=== PATIENT | male | born 1945 | race Caucasian/White ===

== ENCOUNTER 2018-03-22 14:41 | Inpatient (IN) | payer MEDICARE ==
[~2018-03-22] VITALS: Ht 177.8 cm; Wt 137.0 kg
[~2018-03-22 14:41] MED LIST: ALLO100T PO; AMLO10TA2 PO; ASPI325T8 PO; ATOR40TA59 PO; CEFD300C PO; CLON0.3T PO; FURO40TA4 PO; HYDR100T24 PO; INSU100I11 SQ; INSU100V8 SQ; LABE200T4 PO; LOSA1TAB22 PO; OMEG1CAP6 PO; POTA20TA82 PO; PROP225C3 PO; SPIR50TA4 PO
--- NOTE | 2018-03-22 15:42 | RAD ---
FOOT BILAT 3V, TIBIA FIBULA BILAT History: NATALIO FOOT SWELLING, NON HEALING BLISTERS TO NATALIO CALCANEUS. PT IS DIABETIC. Comparison: None are available Bilateral two-view tibia fibula Diffuse soft tissue calcifications bilaterally. No acute fracture. No aggressive bone destruction. IMPRESSION: 1. Extensive bilateral diffuse soft tissue calcifications are nonspecific. Considerations include metabolic, autoimmune or inflammatory etiology. 2. No acute bone abnormality 3 view portable bilateral foot Bilateral degenerative changes. No evidence of acute fracture. Bilateral calcaneal enthesophytes. Vascular calcifications are noted. IMPRESSION: Chronic findings, no acute appearing changes. Electronically signed by: Benjamin Back MD (03/22/2018 3:39 PM) [id number]
--- NOTE | 2018-03-22 15:49 | PHYS DOC ---
Past Medical History Past Medical History: CAD, Diabetes-Type II, High Cholesterol, Hypertension Past Surgical History: No Surgical History Alcohol Use: None Drug Use: None Adult General Chief Complaint Chief Complaint: LOWER EXTREMITY SWELLING HPI HPI Patient is a 72 year old male who presents with bilateral redness and weeping to his lower legs as well as some ulcerations on his heels and feet. The patient states that he saw his enterprise resource planning consultant to send him to the emergency department to be admitted for IV antibiotic therapy. The patient is diabetic and has peripheral vascular disease. He does have neuropathy and states that he is currently in no pain with the ulcerations unless he stands on his feet. He denies fever, nausea or vomiting. Review of Systems Review of Systems Constitutional: Denies fever or chills [] Respiratory: Denies cough or shortness of breath [] Cardiovascular: No additional information not addressed in HPI [] GI: Denies abdominal pain, nausea, vomiting, bloody stools or diarrhea [] : Denies dysuria or hematuria [] Musculoskeletal: Denies back pain or joint pain [] Integument: See history of present illness Neurologic: Denies headache, focal weakness or sensory changes [] Endocrine: Denies polyuria or polydipsia [] All other systems were reviewed and found to be within normal limits, except as documented in this note. Current Medications Current Medications Current Medications Medications (Trade) Dose Ordered Sig/Redd Start Time Stop Time Status Last Admin Dose Admin Acetaminophen (Tylenol) 650 mg PRN Q6HRS PRN 03/22/18 16:15 Al Hydroxide/Mg Hydroxide (Mylanta Plus Xs) 30 ml PRN Q3HRS PRN 03/22/18 16:15 Allopurinol (Zyloprim) 100 mg DAILY 03/23/18 09:00 UNV Amlodipine Besylate (Norvasc) 10 mg DAILY 03/23/18 09:00 UNV Atorvastatin Calcium (Lipitor) 40 mg HS 03/22/18 21:00 Bisacodyl (Dulcolax Supp) 10 mg PRN DAILY PRN 03/22/18 16:15 Calcium Carbonate/ Glycine (Tums) 500 mg PRN Q3HRS PRN 03/22/18 16:15 Ceftriaxone Sodium 50 ml @ 100 mls/hr 1X ONCE 03/22/18 16:30 03/22/18 16:59 Clonidine HCl (Catapres) 0.1 mg TID 8/17/18 16:45 Dextrose (Dextrose 50%-Water Syringe) 12.5 gm PRN Q15MIN PRN 03/22/18 16:15 Docusate Sodium (Colace) 100 mg BID 03/22/18 21:00 Fish Oil (Fish Oil) 1,000 mg BID 03/22/18 21:00 Furosemide (Lasix) 40 mg 1X ONCE 03/22/18 16:15 03/22/18 16:32 DC Insulin Human Lispro (HumaLOG) 25 units TID 03/22/18 21:00 UNV Magnesium Hydroxide (Milk Of Magnesia) 2,400 mg PRN Q12HR PRN 03/22/18 16:15 Morphine Sulfate (Morphine Sulfate) 2 mg PRN Q2HR PRN 03/22/18 16:15 Non-Formulary Medication (Hydralazine Hcl ) 100 mg TID 03/22/18 21:00 UNV Non-Formulary Medication (Insulin Glargine,Hum.rec.anlog (Lantus)) 44 unit HS 03/22/18 21:00 UNV Non-Formulary Medication (Losartan/ Hydrochlorothiazide (Losartan-Hctz 100-25 Mg Tab)) 1 each DAILY 03/23/18 09:00 UNV Ondansetron HCl (Zofran) 4 mg PRN Q6HRS PRN 03/22/18 16:15 Oxycodone HCl (Roxicodone) 5 mg PRN Q3HRS PRN 03/22/18 16:15 Piperacillin Sod/ Tazobactam Sod (Zosyn Per Pharmacy) 1 each PRN DAILY PRN 03/22/18 16:15 UNV Piperacillin Sod/ Tazobactam Sod 3.375 gm/Sodium Chloride 50 ml @ 100 mls/hr 1X ONCE 03/22/18 16:45 03/22/18 17:14 Potassium Chloride (Klor-Con) 20 meq [id number] 03/23/18 08:00 Prochlorperazine Edisylate (Compazine) 10 mg PRN Q6HRS PRN 03/22/18 16:15 Sodium Chloride 1,000 ml @ 1,000 mls/hr 1X ONCE 03/22/18 16:30 03/22/18 17:29 Vancomycin HCl (Vanco Per Pharmacy) 1 each PRN DAILY PRN 03/22/18 16:15 UNV Vancomycin HCl 2 gm/Sodium Chloride 500 ml @ 250 mls/hr 1X ONCE 03/22/18 17:00 03/22/18 18:59 Allergies Allergies Allergies Coded Allergies Type Severity Reaction Last Updated Verified I S O L A T I O N *CONTACT* Allergy Unknown 02/12/15 Yes No Known Medication Allergies Allergy Unknown 02/12/15 Yes Physical Exam Physical Exam Constitutional: Well developed, well nourished, no acute distress, non-toxic appearance. [] Cardiovascular:Heart rate regular rhythm, no murmur [] Lungs & Thorax: Bilateral breath sounds clear to auscultation [] Skin: Bilateral erythema with weeping to his lower legs, ulcerations noted to bilateral heels Back: No tenderness, no CVA tenderness. [] Extremities: No tenderness, no cyanosis, no clubbing, ROM intact, no edema. [] Neurologic: Alert and oriented X 3, normal motor function, normal sensory function, no focal deficits noted. [] Psychologic: Affect normal, judgement normal, mood normal. [] Current Patient Data Vital Signs Vital Signs Date Time Temp Pulse Resp B/P (MAP) Pulse Ox O2 Delivery O2 Flow Rate FiO2 03/22/18 14:50 98.2 113 18 144/71 (95) 97 Room Air 98.2 Lab Values Laboratory Tests Test 03/22/18 15:56 White Blood Count 10.4 x10^3/uL (4.0-11.0) Red Blood Count 3.69 x10^6/uL (4.30-5.70) L Hemoglobin 12.0 g/dL (13.0-17.5) L Hematocrit 34.9 % (39.0-53.0) L Mean Corpuscular Volume 94 fL (79-100) Mean Corpuscular Hemoglobin 32 pg (25-35) Mean Corpuscular Hemoglobin Concent 34 g/dL (31-37) Red Cell Distribution Width 15.7 % (11.5-14.5) H Platelet Count 259 x10^3/uL (140-400) Neutrophils (%) (Auto) 67 % (31-73) Lymphocytes (%) (Auto) 21 % (24-48) L Monocytes (%) (Auto) 10 % (0-9) H Eosinophils (%) (Auto) 1 % (0-3) Basophils (%) (Auto) 1 % (0-3) Neutrophils # (Auto) 7.0 x10^3uL (1.8-7.7) Lymphocytes # (Auto) 2.2 x10^3/uL (1.0-4.8) Monocytes # (Auto) 1.1 x10^3/uL (0.0-1.1) Eosinophils # (Auto) 0.1 x10^3/uL (0.0-0.7) Basophils # (Auto) 0.1 x10^3/uL (0.0-0.2) Sodium Level 129 mmol/L (136-145) L Potassium Level 4.0 mmol/L (3.5-5.1) Chloride Level 97 mmol/L (98-107) L Carbon Dioxide Level 26 mmol/L (21-32) Anion Gap 6 (6-14) Blood Urea Nitrogen 35 mg/dL (8-26) H Creatinine 2.0 mg/dL (0.7-1.3) H Estimated GFR (Cockcroft-Gault) 33.2 BUN/Creatinine Ratio 18 (6-20) Glucose Level 344 mg/dL (70-99) H Calcium Level 8.5 mg/dL (8.5-10.1) Total Bilirubin 1.1 mg/dL (0.2-1.0) H Aspartate Amino Transferase (AST) 30 U/L (15-37) Alanine Aminotransferase (ALT) 19 U/L (16-63) Alkaline Phosphatase 126 U/L (46-116) H C-Reactive Protein, Quantitative 62.6 mg/L (0-3.3) H Total Protein 6.6 g/dL (6.4-8.2) Albumin 2.0 g/dL (3.4-5.0) L Albumin/Globulin Ratio 0.4 (1.0-1.7) L Laboratory Tests 03/22/18 15:56 Laboratory Tests 03/22/18 15:56 EKG EKG [] Radiology/Procedures Radiology/Procedures [] Signed PATIENT: SAMEER HOLDEN ACCOUNT: [id number] : 1945 LOCATION: ER AGE: 72 SEX: M EXAM STATUS: PRE ER ORD. PHYSICIAN: CLEVE RAY APRN REASON: r/o osteomyelitis PROCEDURE: TIBIA FIBULA BILAT FOOT BILAT 3V, TIBIA FIBULA BILAT History: NATALIO FOOT SWELLING, NON HEALING BLISTERS TO NATALIO CALCANEUS. PT IS DIABETIC. Comparison: None are available Bilateral two-view tibia fibula Diffuse soft tissue calcifications bilaterally. No acute fracture. No aggressive bone destruction. IMPRESSION: 1. Extensive bilateral diffuse soft tissue calcifications are nonspecific. Considerations include metabolic, autoimmune or inflammatory etiology. 2. No acute bone abnormality 3 view portable bilateral foot Bilateral degenerative changes. No evidence of acute fracture. Bilateral calcaneal enthesophytes. Vascular calcifications are noted. IMPRESSION: Chronic findings, no acute appearing changes. Electronically signed by: Benjamin Back MD (03/22/2018 3:39 PM) [facility] DICTATED and SIGNED BY: BENJAMIN BACK MD DATE: 03/22/18 153 Course & Med Decision Making Course & Med Decision Making Pertinent Labs and Imaging studies reviewed. (See chart for details) []The patient is being admitted to the hospital for IV antibiotic therapy. He has been accepted to Dr. Wise's service. He is in agreement with this plan. Dragon Disclaimer Dragon Disclaimer This electronic medical record was generated, in whole or in part, using a voice recognition dictation system. Departure Departure Impression: Primary Impression: Abscess or cellulitis of ankle Additional Impressions: Diabetes PVD (peripheral vascular disease) Disposition: ADMITTED INPATIENT Admitting Physician: Mariah Wise Condition: STABLE Problem Qualifiers CLEVE RAY APRN Mar 22, 2018 15:49
--- NOTE | 2018-03-22 16:11 | PDOC1 ---
History and Physical Date of Admission Date of Admission DATE: 03/22/18 TIME: 16:04 Identification/Chief Complaint Chief Complaint sent in by wound care clinic because of diabetes with leg wounds in a PVD patient Source Source: Caregiver, Chart review, Patient History of Present Illness History of Present Illness He has no complaints, he was sent in by wound care clinic because of bilateral lower extremity wound/in a diabetic and a PVD pt. He is a diabetes with elevated A1c, at 12- 14 range. HE knows the target a1c is 6-7. He is accompanied by his . I inspected the wounds, there is significant redness on bilateral lower legs, with oozing and some weeping, HE also has bilateral heel ulcers, the left one actually looks good but the right one has some granulation tissue and maybe some old eschar formation. In the past he has received I and D of the wounds. I am getting a sedimentation rate, labs, ID on board including vascular surgery and the need of I and D?. He is a vasculopath or at least has history of PVD by chart. Blood sugars are running high. We will resume home meds, address the blood sugar, had ID and vascular see and go from there. Agrees my plan of care, seen at ER Past Medical History Cardiovascular: AFIB, CHF, HTN, Hyperlipidemia, Other Psych: Anxiety Renal/: Other Endocrine: Diabetes Past Surgical History Past Surgical History: Other (I and D of leg wounds) Family History Family History: Heart Disease, Hypertension Social History Smoke: No ALCOHOL: none Drugs: None Current Medications Current Medications Active Scripts Active Reported Hydralazine Hcl 100 Mg Tablet 100 Mg PO TID Potassium Chloride 20 Meq Tablet.er 20 Meq PO DAILY Lantus (Insulin Glargine,Hum.rec.anlog) 100 Unit/1 Ml Vial 44 Unit SQ HS Atorvastatin Calcium 40 Mg Tablet 40 Mg PO HS Losartan-Hctz 100-25 Mg Tab (Losartan/Hydrochlorothiazide) 1 Each Tablet 1 Each PO DAILY Allopurinol 100 Mg Tablet 100 Mg PO DAILY Amlodipine Besylate 10 Mg Tablet 10 Mg PO DAILY Clonidine Hcl 0.3 Mg Tablet 0.1 Mg PO TID Furosemide 40 Mg Tablet 80 Mg PO BID Fish Oil 1,000 Mg Capsule (Spooner-3 Fatty Acids/Fish Oil) 1 Each Capsule 1 Each PO BID Humalog (Insulin Lispro) 100 Unit/1 Ml Insuln.pen 25 Unit SQ TID Allergies Allergies: Coded Allergies: I S O L A T I O N *CONTACT* (Verified Allergy, Unknown, 02/12/15) MRSA + No Known Medication Allergies (Verified Allergy, Unknown, 02/12/15) ROS Review of System A 14 point ROS was completed with the following noted as positive: Other systems reviewed and negative. \CONSTITUTIONAL: No fever or chills EYES: No recent changes SKIN: No rash or itching CARDIOVASCULAR: No chest pain, syncope, palpitations, or edema RESPIRATORY: No SOB or cough GASTROINTESTINAL: No nausea, vomiting or abdominal pain NEUROLOGICAL: No headaches or weakness ENDOCRINE: No cold or heat intolerance GENITOURINARY: No urgency or frequency of urination MUSCULOSKELETAL: No back pain or joint pain LYMPHATICS: No enlarged lymph nodes PSYCHIATRIC: No anxiety or depression Physical Exam General: Alert, Oriented X3, Cooperative, No acute distress HEENT: Atraumatic, PERRLA, EOMI Lungs: Clear to auscultation, Normal air movement Heart: S1S2, RRR, no thrills, no rubs, no gallops Cardiovascular: S1, S2 Abdomen: Normal bowel sounds, Soft, No tenderness, No hepatosplenomegaly, No masses Male Genitals Exam: normal genitalia, normal prostate Rectal Exam: not examined PELVIC: Nml ext genitalia Extremities: Other (has bilateral lymphedema, wounds appear red, redness on the bilateral shins with some oozing and weeping. Bilateral heel wounds, left looks great but the right has some granulation tissue with eschar formation on the heel) Neuro: Normal gait, Normal speech, Strength at 5/5 X4 ext, Normal tone, Sensation intact, Cranial nerves 3-12 NL, Reflexes 2+ Psych/Mental Status: Mental status NL, Mood NL Vitals Vitals Vital Signs Date Time Temp Pulse Resp B/P (MAP) Pulse Ox O2 Delivery O2 Flow Rate FiO2 03/22/18 14:50 98.2 113 18 144/71 (95) 97 Room Air 98.2 VTE Prophylaxis Ordered VTE Prophylaxis Devices: Yes VTE Pharmacological Prophylaxi: Yes Assessment/Plan Assessment/Plan DM wounds, Diabetic heel ulcer, left heel wound looks good but the right is more worrisome DM uncontrolled with neuropathy - with hemoglobin A1c 12-14 range PVD Obesity BMI 42 Hypertension, CAD, and lipidemia all chronic stable Plan Admit 2 MN ID consult, vasc consult Check a sedimentation rate in hemoglobin A1c I have reconciled home meds I opted to do Lasix 40 IV twice a day-he takes Lasix 80 mg by mouth daily Wound care PT OT OD for lymphedema ADA diet IV antibiotics - was getting amox then shifted to tetracycline by PCP or wound care MD further conditions pending above course CORINNE LAW MD Mar 22, 2018 16:11
[2018-03-22 16:15] LABS: CALCIUM 8.5 mg/dL (8.5-10.1); GFR 33.2
[2018-03-22] MEDS ORDERED: PIP/TAZO PER PHARMACY MC PRN (16:15)
[2018-03-22] MEDS ORDERED: MORPHINE SULFATE 2 MG/ML VIAL. IV PRN (16:15)
[2018-03-22] MEDS ORDERED: FUROSEMIDE 40 MG/4 ML VIAL. IVP ONE (16:15)
[2018-03-22] MEDS ORDERED: CALCIUM CARBONATE 500 MG TAB.CHEW PO PRN (16:15)
[2018-03-22] MEDS ORDERED: oxyCODONE IR 5 MG TABLET PO PRN (16:15)
[2018-03-22] MEDS ORDERED: PROCHLORPERAZINE 10 MG/2 ML VIAL. IV PRN (16:15)
[2018-03-22] MEDS ORDERED: VANCOMYCIN PER PHARMACY MC PRN (16:15)
[2018-03-22] MEDS ORDERED: MAG HYDROX/ALUMINUM HYD/SIMETH 30 ML ORAL.SUSP PO PRN (16:15)
[2018-03-22] MEDS ORDERED: ONDANSETRON PF 4 MG/2 ML VIAL. IV PRN (16:15)
[2018-03-22] MEDS ORDERED: MAGNESIUM HYDROXIDE 2,400 MG/30 ML ORAL.SUSP. PO PRN (16:15)
[2018-03-22] MEDS ORDERED: ACETAMINOPHEN 325 MG TABLET. PO PRN (16:15)
[2018-03-22] MEDS ORDERED: BISACODYL 10 MG SUPP.RECT. PR PRN (16:15)
[2018-03-22 16:19] LABS: BASO # 0.1 x10^3/uL (0.0-0.2); BASO % 1 % (0-3); EOS # 0.1 x10^3/uL (0.0-0.7); EOS % 1 % (0-3); HEMATOCRIT 34.9 % (39.0-53.0); LYMPH # 2.2 x10^3/uL (1.0-4.8); LYMPH % 21 % (24-48); MEAN CORPUSCULAR HEMOGLOBIN 32 pg (25-35); MEAN CORPUSCULAR HGB CONC 34 g/dL (31-37); MEAN CORPUSCULAR VOLUME 94 fL (79-100); MONO # 1.1 x10^3/uL (0.0-1.1); MONO % 10 % (0-9); NEUT % 67 % (31-73); PLATELET COUNT 259 x10^3/uL (140-400); RED BLOOD COUNT 3.69 x10^6/uL (4.30-5.70); RED CELL DISTRIBUTION WIDTH 15.7 % (11.5-14.5); WHITE BLOOD COUNT 10.4 x10^3/uL (4.0-11.0)
[2018-03-22 16:21] LABS: ALBUMIN/GLOBULIN RATIO 0.4 (1.0-1.7); C-REACTIVE PROTEIN 62.6 mg/L (0-3.3); TOTAL BILIRUBIN 1.1 mg/dL (0.2-1.0); TOTAL PROTEIN 6.6 g/dL (6.4-8.2)
[2018-03-22] MEDS ORDERED: IV NORMAL SALINE 1000ML BAG 1,000 ML IV ONE (16:30)
[2018-03-22] MEDS: cloNIDine HCL 0.1 MG TABLET PO SCH ×2 (16:45→22:13)
[2018-03-22] MEDS ORDERED: PIPERACILLIN/TAZOBACTAM 3.375 GM in IV NORMAL SALINE 50ML 50 ML IV ONE (16:45)
[2018-03-22] MEDS ORDERED: VANCOMYCIN 2 GM in IV NORMAL SALINE 500ML BAG 500 ML IV ONE (17:00)
[2018-03-22 20:45] VITALS: BP 128/72
[2018-03-22] MEDS ORDERED: AMOX500C PO (22:11)
[2018-03-22] MEDS ORDERED: OMEG1CAP6 PO (22:11)
[2018-03-22] MEDS ORDERED: DOXY100T PO (22:11)
[2018-03-22] MEDS ORDERED: METO2.5T PO (22:11)
[2018-03-22] MEDS ORDERED: TENO25TA PO (22:11)
[2018-03-22] MEDS: DOCUSATE SODIUM 100 MG CAPSULE. PO SCH (22:13)
[2018-03-22] MEDS: OMEGA-3 FATTY ACIDS/FISH OIL 1,000 MG CAPSULE. PO SCH (22:13)
[2018-03-22] MEDS: ATORVASTATIN CALCIUM 40 MG TABLET. PO SCH (22:15)
[2018-03-22] MEDS: INSULIN LISPRO 300 UNITS/3 ML INSULN.PEN. SQ SCH ×2 (22:40→22:41)
[2018-03-22] MEDS: INSULIN GLARGINE 300 UNITS/3 ML INSULN.PEN. SQ SCH (22:42)
[2018-03-22 23:18] VITALS: BP 107/61
[2018-03-23] MEDS: PIPERACILLIN/TAZOBACTAM 3.375 GM in IV NORMAL SALINE 50ML 50 ML IV SCH ×5 (01:02→23:16)
[2018-03-23] MEDS: DEXTROSE 50% 25 GM / 50ML DISP.SYRIN. IV PRN ×2 (01:08→02:48)
[2018-03-23 03:27] VITALS: BP 101/52
[2018-03-23 07:00] VITALS: BP 137/68
[2018-03-23 07:59] LABS: BASO # 0.1 x10^3/uL (0.0-0.2); BASO % 1 % (0-3); EOS # 0.2 x10^3/uL (0.0-0.7); EOS % 1 % (0-3); HEMATOCRIT 30.8 % (39.0-53.0); HEMOGLOBIN 10.4 g/dL (13.0-17.5); LYMPH # 2.4 x10^3/uL (1.0-4.8); LYMPH % 20 % (24-48); MEAN CORPUSCULAR HEMOGLOBIN 32 pg (25-35); MEAN CORPUSCULAR HGB CONC 34 g/dL (31-37); MEAN CORPUSCULAR VOLUME 94 fL (79-100); MONO # 1.2 x10^3/uL (0.0-1.1); MONO % 10 % (0-9); NEUT # 8.2 x10^3uL (1.8-7.7); NEUT % 68 % (31-73); PLATELET COUNT 256 x10^3/uL (140-400); RED BLOOD COUNT 3.27 x10^6/uL (4.30-5.70); RED CELL DISTRIBUTION WIDTH 15.6 % (11.5-14.5)
[2018-03-23] MEDS: INSULIN LISPRO 300 UNITS/3 ML INSULN.PEN. SQ SCH ×6 (08:00→17:00)
[2018-03-23 08:07] LABS: ALBUMIN 1.8 g/dL (3.4-5.0); ALBUMIN/GLOBULIN RATIO 0.4 (1.0-1.7); CALCIUM 8.3 mg/dL (8.5-10.1); GFR 33.2; POTASSIUM 3.3 mmol/L (3.5-5.1); TOTAL BILIRUBIN 0.7 mg/dL (0.2-1.0)
[2018-03-23] MEDS: cloNIDine HCL 0.1 MG TABLET PO SCH ×3 (09:00→21:00)
[2018-03-23] MEDS: POTASSIUM CHLORIDE 20 MEQ TABLET.ER. PO SCH (10:22)
[2018-03-23] MEDS: amLODIPine BESYLATE 10 MG TABLET PO SCH (10:23)
[2018-03-23] MEDS: LOSARTAN POTASSIUM 50 MG TABLET. PO SCH (10:23)
[2018-03-23] MEDS: OMEGA-3 FATTY ACIDS/FISH OIL 1,000 MG CAPSULE. PO SCH ×2 (10:23→21:18)
[2018-03-23] MEDS: hydroCHLOROthiazide 25 MG TABLET PO SCH (10:24)
[2018-03-23] MEDS: FUROSEMIDE 40 MG/4 ML VIAL. IVP SCH (10:24)
[2018-03-23] MEDS: ALLOPURINOL 100 MG TABLET. PO SCH (10:24)
[2018-03-23 11:00] VITALS: BP 116/67
--- NOTE | 2018-03-23 11:21 | PDOC ---
Provider Note Provider Note VASCULAR CONSULT Dictated morbid obesity uncontrolled diabetes peripheral neuropathy bilateral pressure wounds ,plantar surface heels REC: arterial duplex off wt DVT prophylaxis operative debridement left heel MOHAMUD NIEVES MD Mar 23, 2018 11:21
--- NOTE | 2018-03-23 12:22 | PDOC ---
PROGRESS NOTES Chief Complaint Chief Complaint Medical Problems: -Cellulitis & Ulceration of Feet -DM -PVD History of Present Illness History of Present Illness -Pt. seen & examined -NAD -Pt. heals & ankles display ulceration, edema, & erythema -Pt. laying in bed upon out visit -DW pt. our current plan of action Vitals Vitals Vital Signs Date Time Temp Pulse Resp B/P (MAP) Pulse Ox O2 Delivery O2 Flow Rate FiO2 03/23/18 11:00 98.2 101 16 116/67 (83) 96 Room Air 98.2 Physical Exam General: Alert, Oriented X3, Cooperative, No acute distress Heart: Regular rate, Normal S1, Normal S2 Lungs: Clear, Other Abdomen: Normal bowel sounds, Soft, No tenderness, No hepatosplenomegaly, No masses Extremities: No clubbing, Other (has bilateral lymphedema, wounds appear red, redness on the bilateral shins with some oozing and weeping. Bilateral heel wounds, left looks great but the right has some granulation tissue with eschar formation on the heel) Skin: No rashes, Other Labs LABS Laboratory Tests Test 03/22/18 15:56 03/22/18 21:07 03/23/18 00:52 03/23/18 01:04 White Blood Count 10.4 x10^3/uL (4.0-11.0) Red Blood Count 3.69 x10^6/uL (4.30-5.70) Hemoglobin 12.0 g/dL (13.0-17.5) Hematocrit 34.9 % (39.0-53.0) Mean Corpuscular Volume 94 fL (79-100) Mean Corpuscular Hemoglobin 32 pg (25-35) Mean Corpuscular Hemoglobin Concent 34 g/dL (31-37) Red Cell Distribution Width 15.7 % (11.5-14.5) Platelet Count 259 x10^3/uL (140-400) Neutrophils (%) (Auto) 67 % (31-73) Lymphocytes (%) (Auto) 21 % (24-48) Monocytes (%) (Auto) 10 % (0-9) Eosinophils (%) (Auto) 1 % (0-3) Basophils (%) (Auto) 1 % (0-3) Neutrophils # (Auto) 7.0 x10^3uL (1.8-7.7) Lymphocytes # (Auto) 2.2 x10^3/uL (1.0-4.8) Monocytes # (Auto) 1.1 x10^3/uL (0.0-1.1) Eosinophils # (Auto) 0.1 x10^3/uL (0.0-0.7) Basophils # (Auto) 0.1 x10^3/uL (0.0-0.2) Erythrocyte Sedimentation Rate 77 (0-15) Sodium Level 129 mmol/L (136-145) Potassium Level 4.0 mmol/L (3.5-5.1) Chloride Level 97 mmol/L (98-107) Carbon Dioxide Level 26 mmol/L (21-32) Anion Gap 6 (6-14) Blood Urea Nitrogen 35 mg/dL (8-26) Creatinine 2.0 mg/dL (0.7-1.3) Estimated GFR (Cockcroft-Gault) 33.2 BUN/Creatinine Ratio 18 (6-20) Glucose Level 344 mg/dL (70-99) Calcium Level 8.5 mg/dL (8.5-10.1) Total Bilirubin 1.1 mg/dL (0.2-1.0) Aspartate Amino Transf (AST/SGOT) 30 U/L (15-37) Alanine Aminotransferase (ALT/SGPT) 19 U/L (16-63) Alkaline Phosphatase 126 U/L (46-116) C-Reactive Protein, Quantitative 62.6 mg/L (0-3.3) Total Protein 6.6 g/dL (6.4-8.2) Albumin 2.0 g/dL (3.4-5.0) Albumin/Globulin Ratio 0.4 (1.0-1.7) Glucose (Fingerstick) 295 mg/dL (70-99) 46 mg/dL (70-99) 58 mg/dL (70-99) Test 03/23/18 01:23 03/23/18 02:31 03/23/18 03:09 03/23/18 07:20 Glucose (Fingerstick) 102 mg/dL (70-99) 53 mg/dL (70-99) 109 mg/dL (70-99) White Blood Count 12.0 x10^3/uL (4.0-11.0) Red Blood Count 3.27 x10^6/uL (4.30-5.70) Hemoglobin 10.4 g/dL (13.0-17.5) Hematocrit 30.8 % (39.0-53.0) Mean Corpuscular Volume 94 fL (79-100) Mean Corpuscular Hemoglobin 32 pg (25-35) Mean Corpuscular Hemoglobin Concent 34 g/dL (31-37) Red Cell Distribution Width 15.6 % (11.5-14.5) Platelet Count 256 x10^3/uL (140-400) Neutrophils (%) (Auto) 68 % (31-73) Lymphocytes (%) (Auto) 20 % (24-48) Monocytes (%) (Auto) 10 % (0-9) Eosinophils (%) (Auto) 1 % (0-3) Basophils (%) (Auto) 1 % (0-3) Neutrophils # (Auto) 8.2 x10^3uL (1.8-7.7) Lymphocytes # (Auto) 2.4 x10^3/uL (1.0-4.8) Monocytes # (Auto) 1.2 x10^3/uL (0.0-1.1) Eosinophils # (Auto) 0.2 x10^3/uL (0.0-0.7) Basophils # (Auto) 0.1 x10^3/uL (0.0-0.2) Sodium Level 135 mmol/L (136-145) Potassium Level 3.3 mmol/L (3.5-5.1) Chloride Level 101 mmol/L (98-107) Carbon Dioxide Level 29 mmol/L (21-32) Anion Gap 5 (6-14) Blood Urea Nitrogen 36 mg/dL (8-26) Creatinine 2.0 mg/dL (0.7-1.3) Estimated GFR (Cockcroft-Gault) 33.2 BUN/Creatinine Ratio 18 (6-20) Glucose Level 63 mg/dL (70-99) Calcium Level 8.3 mg/dL (8.5-10.1) Total Bilirubin 0.7 mg/dL (0.2-1.0) Aspartate Amino Transf (AST/SGOT) 29 U/L (15-37) Alanine Aminotransferase (ALT/SGPT) 18 U/L (16-63) Alkaline Phosphatase 114 U/L (46-116) Total Protein 6.0 g/dL (6.4-8.2) Albumin 1.8 g/dL (3.4-5.0) Albumin/Globulin Ratio 0.4 (1.0-1.7) Test 03/23/18 08:11 03/23/18 11:34 Glucose (Fingerstick) 79 mg/dL (70-99) 122 mg/dL (70-99) Review of Systems Review of Systems -No dyspnea -No dysuria Assessment and Plan Assessmemt and Plan Medical Problems: -Cellulitis & Ulceration of Feet -DM -PVD Plan: -ABX. - pip/tazo -Wound Care -SNU Evaluation -Labs -PT/OT -Appreciate surgical input Comment Review of Relevant I have reviewed the following items mara (where applicable) has been applied. Labs Laboratory Tests Test 03/22/18 15:56 03/22/18 21:07 03/23/18 00:52 03/23/18 01:04 White Blood Count 10.4 x10^3/uL (4.0-11.0) Red Blood Count 3.69 x10^6/uL (4.30-5.70) Hemoglobin 12.0 g/dL (13.0-17.5) Hematocrit 34.9 % (39.0-53.0) Mean Corpuscular Volume 94 fL (79-100) Mean Corpuscular Hemoglobin 32 pg (25-35) Mean Corpuscular Hemoglobin Concent 34 g/dL (31-37) Red Cell Distribution Width 15.7 % (11.5-14.5) Platelet Count 259 x10^3/uL (140-400) Neutrophils (%) (Auto) 67 % (31-73) Lymphocytes (%) (Auto) 21 % (24-48) Monocytes (%) (Auto) 10 % (0-9) Eosinophils (%) (Auto) 1 % (0-3) Basophils (%) (Auto) 1 % (0-3) Neutrophils # (Auto) 7.0 x10^3uL (1.8-7.7) Lymphocytes # (Auto) 2.2 x10^3/uL (1.0-4.8) Monocytes # (Auto) 1.1 x10^3/uL (0.0-1.1) Eosinophils # (Auto) 0.1 x10^3/uL (0.0-0.7) Basophils # (Auto) 0.1 x10^3/uL (0.0-0.2) Erythrocyte Sedimentation Rate 77 (0-15) Sodium Level 129 mmol/L (136-145) Potassium Level 4.0 mmol/L (3.5-5.1) Chloride Level 97 mmol/L (98-107) Carbon Dioxide Level 26 mmol/L (21-32) Anion Gap 6 (6-14) Blood Urea Nitrogen 35 mg/dL (8-26) Creatinine 2.0 mg/dL (0.7-1.3) Estimated GFR (Cockcroft-Gault) 33.2 BUN/Creatinine Ratio 18 (6-20) Glucose Level 344 mg/dL (70-99) Calcium Level 8.5 mg/dL (8.5-10.1) Total Bilirubin 1.1 mg/dL (0.2-1.0) Aspartate Amino Transf (AST/SGOT) 30 U/L (15-37) Alanine Aminotransferase (ALT/SGPT) 19 U/L (16-63) Alkaline Phosphatase 126 U/L (46-116) C-Reactive Protein, Quantitative 62.6 mg/L (0-3.3) Total Protein 6.6 g/dL (6.4-8.2) Albumin 2.0 g/dL (3.4-5.0) Albumin/Globulin Ratio 0.4 (1.0-1.7) Glucose (Fingerstick) 295 mg/dL (70-99) 46 mg/dL (70-99) 58 mg/dL (70-99) Test 03/23/18 01:23 03/23/18 02:31 03/23/18 03:09 03/23/18 07:20 Glucose (Fingerstick) 102 mg/dL (70-99) 53 mg/dL (70-99) 109 mg/dL (70-99) White Blood Count 12.0 x10^3/uL (4.0-11.0) Red Blood Count 3.27 x10^6/uL (4.30-5.70) Hemoglobin 10.4 g/dL (13.0-17.5) Hematocrit 30.8 % (39.0-53.0) Mean Corpuscular Volume 94 fL (79-100) Mean Corpuscular Hemoglobin 32 pg (25-35) Mean Corpuscular Hemoglobin Concent 34 g/dL (31-37) Red Cell Distribution Width 15.6 % (11.5-14.5) Platelet Count 256 x10^3/uL (140-400) Neutrophils (%) (Auto) 68 % (31-73) Lymphocytes (%) (Auto) 20 % (24-48) Monocytes (%) (Auto) 10 % (0-9) Eosinophils (%) (Auto) 1 % (0-3) Basophils (%) (Auto) 1 % (0-3) Neutrophils # (Auto) 8.2 x10^3uL (1.8-7.7) Lymphocytes # (Auto) 2.4 x10^3/uL (1.0-4.8) Monocytes # (Auto) 1.2 x10^3/uL (0.0-1.1) Eosinophils # (Auto) 0.2 x10^3/uL (0.0-0.7) Basophils # (Auto) 0.1 x10^3/uL (0.0-0.2) Sodium Level 135 mmol/L (136-145) Potassium Level 3.3 mmol/L (3.5-5.1) Chloride Level 101 mmol/L (98-107) Carbon Dioxide Level 29 mmol/L (21-32) Anion Gap 5 (6-14) Blood Urea Nitrogen 36 mg/dL (8-26) Creatinine 2.0 mg/dL (0.7-1.3) Estimated GFR (Cockcroft-Gault) 33.2 BUN/Creatinine Ratio 18 (6-20) Glucose Level 63 mg/dL (70-99) Calcium Level 8.3 mg/dL (8.5-10.1) Total Bilirubin 0.7 mg/dL (0.2-1.0) Aspartate Amino Transf (AST/SGOT) 29 U/L (15-37) Alanine Aminotransferase (ALT/SGPT) 18 U/L (16-63) Alkaline Phosphatase 114 U/L (46-116) Total Protein 6.0 g/dL (6.4-8.2) Albumin 1.8 g/dL (3.4-5.0) Albumin/Globulin Ratio 0.4 (1.0-1.7) Test 8/18/18 08:11 03/23/18 11:34 Glucose (Fingerstick) 79 mg/dL (70-99) 122 mg/dL (70-99) Laboratory Tests Test 03/22/18 15:56 03/22/18 21:07 03/23/18 00:52 03/23/18 01:04 White Blood Count 10.4 x10^3/uL (4.0-11.0) Red Blood Count 3.69 x10^6/uL (4.30-5.70) Hemoglobin 12.0 g/dL (13.0-17.5) Hematocrit 34.9 % (39.0-53.0) Mean Corpuscular Volume 94 fL (79-100) Mean Corpuscular Hemoglobin 32 pg (25-35) Mean Corpuscular Hemoglobin Concent 34 g/dL (31-37) Red Cell Distribution Width 15.7 % (11.5-14.5) Platelet Count 259 x10^3/uL (140-400) Neutrophils (%) (Auto) 67 % (31-73) Lymphocytes (%) (Auto) 21 % (24-48) Monocytes (%) (Auto) 10 % (0-9) Eosinophils (%) (Auto) 1 % (0-3) Basophils (%) (Auto) 1 % (0-3) Neutrophils # (Auto) 7.0 x10^3uL (1.8-7.7) Lymphocytes # (Auto) 2.2 x10^3/uL (1.0-4.8) Monocytes # (Auto) 1.1 x10^3/uL (0.0-1.1) Eosinophils # (Auto) 0.1 x10^3/uL (0.0-0.7) Basophils # (Auto) 0.1 x10^3/uL (0.0-0.2) Erythrocyte Sedimentation Rate 77 (0-15) Sodium Level 129 mmol/L (136-145) Potassium Level 4.0 mmol/L (3.5-5.1) Chloride Level 97 mmol/L (98-107) Carbon Dioxide Level 26 mmol/L (21-32) Anion Gap 6 (6-14) Blood Urea Nitrogen 35 mg/dL (8-26) Creatinine 2.0 mg/dL (0.7-1.3) Estimated GFR (Cockcroft-Gault) 33.2 BUN/Creatinine Ratio 18 (6-20) Glucose Level 344 mg/dL (70-99) Calcium Level 8.5 mg/dL (8.5-10.1) Total Bilirubin 1.1 mg/dL (0.2-1.0) Aspartate Amino Transf (AST/SGOT) 30 U/L (15-37) Alanine Aminotransferase (ALT/SGPT) 19 U/L (16-63) Alkaline Phosphatase 126 U/L (46-116) C-Reactive Protein, Quantitative 62.6 mg/L (0-3.3) Total Protein 6.6 g/dL (6.4-8.2) Albumin 2.0 g/dL (3.4-5.0) Albumin/Globulin Ratio 0.4 (1.0-1.7) Glucose (Fingerstick) 295 mg/dL (70-99) 46 mg/dL (70-99) 58 mg/dL (70-99) Test 03/23/18 01:23 03/23/18 02:31 03/23/18 03:09 03/23/18 07:20 Glucose (Fingerstick) 102 mg/dL (70-99) 53 mg/dL (70-99) 109 mg/dL (70-99) White Blood Count 12.0 x10^3/uL (4.0-11.0) Red Blood Count 3.27 x10^6/uL (4.30-5.70) Hemoglobin 10.4 g/dL (13.0-17.5) Hematocrit 30.8 % (39.0-53.0) Mean Corpuscular Volume 94 fL (79-100) Mean Corpuscular Hemoglobin 32 pg (25-35) Mean Corpuscular Hemoglobin Concent 34 g/dL (31-37) Red Cell Distribution Width 15.6 % (11.5-14.5) Platelet Count 256 x10^3/uL (140-400) Neutrophils (%) (Auto) 68 % (31-73) Lymphocytes (%) (Auto) 20 % (24-48) Monocytes (%) (Auto) 10 % (0-9) Eosinophils (%) (Auto) 1 % (0-3) Basophils (%) (Auto) 1 % (0-3) Neutrophils # (Auto) 8.2 x10^3uL (1.8-7.7) Lymphocytes # (Auto) 2.4 x10^3/uL (1.0-4.8) Monocytes # (Auto) 1.2 x10^3/uL (0.0-1.1) Eosinophils # (Auto) 0.2 x10^3/uL (0.0-0.7) Basophils # (Auto) 0.1 x10^3/uL (0.0-0.2) Sodium Level 135 mmol/L (136-145) Potassium Level 3.3 mmol/L (3.5-5.1) Chloride Level 101 mmol/L (98-107) Carbon Dioxide Level 29 mmol/L (21-32) Anion Gap 5 (6-14) Blood Urea Nitrogen 36 mg/dL (8-26) Creatinine 2.0 mg/dL (0.7-1.3) Estimated GFR (Cockcroft-Gault) 33.2 BUN/Creatinine Ratio 18 (6-20) Glucose Level 63 mg/dL (70-99) Calcium Level 8.3 mg/dL (8.5-10.1) Total Bilirubin 0.7 mg/dL (0.2-1.0) Aspartate Amino Transf (AST/SGOT) 29 U/L (15-37) Alanine Aminotransferase (ALT/SGPT) 18 U/L (16-63) Alkaline Phosphatase 114 U/L (46-116) Total Protein 6.0 g/dL (6.4-8.2) Albumin 1.8 g/dL (3.4-5.0) Albumin/Globulin Ratio 0.4 (1.0-1.7) Test 03/23/18 08:11 03/23/18 11:34 Glucose (Fingerstick) 79 mg/dL (70-99) 122 mg/dL (70-99) Medications Current Medications Ondansetron HCl (Zofran) 4 mg PRN Q6HRS PRN IV NAUSEA/VOMITING Last administered on 03/22/18at 16:42; Start 03/22/18 at 16:15 Prochlorperazine Edisylate (Compazine) 10 mg PRN Q6HRS PRN IV NAUSEA/VOMITING; Start 03/22/18 at 16:15 Al Hydroxide/Mg Hydroxide (Mylanta Plus Xs) 30 ml PRN Q3HRS PRN PO HEARTBURN / GAS; Start 03/22/18 at 16:15 Calcium Carbonate/ Glycine (Tums) 500 mg PRN Q3HRS PRN PO UPSET STOMACH; Start 03/22/18 at 16:15 Oxycodone HCl (Roxicodone) 5 mg PRN Q3HRS PRN PO BREAKTHROUGH PAIN; Start 03/22 at 16:15 Morphine Sulfate (Morphine Sulfate) 2 mg PRN Q2HR PRN IV PAIN; Start 03/22/18 at 16:15 Acetaminophen (Tylenol) 650 mg PRN Q6HRS PRN PO Headaches, Temp > 101.5F; Start 03/22/18 at 16:15 Docusate Sodium (Colace) 100 mg BID PO ; Start 03/22/18 at 21:00 Magnesium Hydroxide (Milk Of Magnesia) 2,400 mg PRN Q12HR PRN PO CONSTIPATION; Start 03/22/18 at 16:15 Bisacodyl (Dulcolax Supp) 10 mg PRN DAILY PRN OK CONSTIPATION; Start 03/22/18 at 16:15 Insulin Human Lispro (HumaLOG) 0-9 UNITS TIDWMEALS SQ Last administered on 03/22at 22:41; Start 03/22/18 at 17:00 Dextrose (Dextrose 50%-Water Syringe) 12.5 gm PRN Q15MIN PRN IV SEE COMMENTS Last administered on 03/23/18at 02:48; Start 03/22/18 at 16:15 Furosemide (Lasix) 40 mg DAILY IVP Last administered on 03/23/18at 10:24; Start 03/23/18 at 09:00 Furosemide (Lasix) 40 mg 1X ONCE IVP Last administered on 03/22/18at 16:54; Start 03/22/18 at 16:15; Stop 03/22/18 at 16:32; Status DC Allopurinol (Zyloprim) 100 mg DAILY PO Last administered on 03/23/18at 10:24; Start 03/23/18 at 09:00 Amlodipine Besylate (Norvasc) 10 mg DAILY PO Last administered on 03/23/18at 10: 23; Start 03/23/18 at 09:00 Atorvastatin Calcium (Lipitor) 40 mg HS PO Last administered on 03/22/18at 22:15 ; Start 03/22/18 at 21:00 Clonidine HCl (Catapres) 0.1 mg TID PO ; Start 03/22/18 at 16:45 Insulin Human Lispro (HumaLOG) 25 units TIDWMEALS SQ Last administered on at 22:40; Start 03/22/18 at 18:00 Fish Oil (Fish Oil) 1,000 mg BID PO Last administered on 03/23/18at 10:23; Start 03/22/18 at 21:00 Hydralazine HCl (Apresoline) 100 mg TID PO Last administered on 03/23/18at 10:22 ; Start 03/22/18 at 21:00 Insulin Glargine (Lantus) 44 units HS SQ Last administered on 03/22/18at 22:42; Start 03/22/18 at 21:00 Losartan Potassium (Cozaar) 100 mg DAILY PO Last administered on 03/23/18at 10: 23; Start 03/23/18 at 09:00 Potassium Chloride (Klor-Con) 20 meq DAILYWBKFT PO Last administered on at 10:22; Start 03/23/18 at 08:00 Vancomycin HCl (Vanco Per Pharmacy) 1 each PRN DAILY PRN MC SEE COMMENTS Last administered on 03/23/18at 01:02; Start 03/22/18 at 16:15 Piperacillin Sod/ Tazobactam Sod (Zosyn Per Pharmacy) 1 each PRN DAILY PRN MC SEE COMMENTS; Start 03/22/18 at 16:15 Sodium Chloride 1,000 ml @ 1,000 mls/hr 1X ONCE IV Last administered on at 16:41; Start 03/22/18 at 16:30; Stop 03/22/18 at 17:29; Status DC Ceftriaxone Sodium 50 ml @ 100 mls/hr 1X ONCE IV Last administered on at 16:41; Start 03/22/18 at 16:30; Stop 03/22/18 at 16:59; Status DC Vancomycin HCl 2 gm/Sodium Chloride 500 ml @ 250 mls/hr 1X ONCE IV Last administered on 03/22/18at 22:16; Start 03/22/18 at 17:00; Stop 03/22/18 at 18:59 ; Status DC Piperacillin Sod/ Tazobactam Sod 3.375 gm/Sodium Chloride 50 ml @ 100 mls/hr 1X ONCE IV Last administered on 03/22/18at 18:01; Start 03/22/18 at 16:45; Stop 03/22/18 at 17:14; Status DC Hydrochlorothiazide (Hydrodiuril) 25 mg DAILY PO Last administered on at 10:24; Start 03/23/18 at 09:00 Piperacillin Sod/ Tazobactam Sod 3.375 gm/Sodium Chloride 50 ml @ 100 mls/hr Q6HRS IV Last administered on 03/23/18at 06:14; Start 03/23/18 at 00:00 Vancomycin HCl 2 gm/Sodium Chloride 500 ml @ 250 mls/hr Q24H IV ; Start at 22:00 Vancomycin HCl (Vancomycin Trough Level) 1 each 1X ONCE MC ; Start 03/24/18 at 21:30; Stop 03/24/18 at 21:31 Active Scripts Active Reported Fish Oil 1,000 Mg Capsule (Norco-3 Fatty Acids/Fish Oil) 1 Each Capsule 1 Each PO DAILY Vemlidy (Tenofovir Alafenamide Fumarate) 25 Mg Tablet 25 Mg PO DAILY Metolazone 2.5 Mg Tablet 2.5 Mg PO DAILY Doxycycline Hyclate 100 Mg Tablet 2 Tab PO BID Amoxicillin 500 Mg Capsule 500 Mg PO QID Hydralazine Hcl 100 Mg Tablet 50 Mg PO TID Potassium Chloride 20 Meq Tablet.er 20 Meq PO BID Lantus (Insulin Glargine,Hum.rec.anlog) 100 Unit/1 Ml Vial 50 Unit SQ HS Aspirin 325 Mg Tablet 325 Mg PO DAILY Atorvastatin Calcium 40 Mg Tablet 40 Mg PO HS Losartan-Hctz 100-25 Mg Tab (Losartan/Hydrochlorothiazide) 1 Each Tablet 1 Each PO DAILY Allopurinol 100 Mg Tablet 100 Mg PO DAILY Amlodipine Besylate 10 Mg Tablet 5 Mg PO DAILY Furosemide 40 Mg Tablet 80 Mg PO BID Humalog (Insulin Lispro) 100 Unit/1 Ml Insuln.pen 25 Unit SQ TID Vitals/I & O Vital Sign - Last 24 Hours 03/22/18 03/22/18 03/22/18 03/22/18 14:45 14:50 15:15 15:45 Temp 98.2 98.2 Pulse 125 113 137 117 Resp 18 16 B/P (MAP) 144/71 (95) 144/71 (95) 148/74 (98) 161/63 (95) Pulse Ox 97 97 97 O2 Delivery Room Air 03/22/18 03/22/18 03/22/18 03/22/18 16:30 18:00 18:29 20:45 Temp 98.8 98.8 Pulse 99 107 115 113 Resp 18 B/P (MAP) 143/81 (101) 156/76 (102) 158/89 (112) 128/72 (90) Pulse Ox 97 98 96 O2 Delivery Room Air 03/22/18 03/22/18 03/22/18 03/22/18 21:15 22:13 22:15 23:18 Temp 98.7 98.7 Pulse 113 113 100 Resp 18 B/P (MAP) 128/72 128/72 107/61 (76) O2 Delivery Room Air 03/22/18 03/23/18 03/23/18 03/23/18 23:19 03:27 07:00 09:00 Temp 98.8 96.6 98.8 96.6 Pulse 106 102 102 Resp 18 18 B/P (MAP) 101/52 (68) 137/68 (91) 137/68 Pulse Ox 95 94 95 O2 Delivery Room Air Room Air Room Air 03/23/18 03/23/18 03/23/18 03/23/18 10:22 10:23 10:23 11:00 Temp 98.2 98.2 Pulse 102 102 102 101 Resp 16 B/P (MAP) 137/68 137/68 137/68 116/67 (83) Pulse Ox 96 O2 Delivery Room Air Intake and Output 03/22/18 03/22/18 03/23/18 15:00 23:00 07:00 Intake Total 1100 ml 300 ml Output Total 550 ml 400 ml Balance 550 ml -100 ml BETO WILSON III DO Mar 23, 2018 12:22
--- NOTE | 2018-03-23 12:49 | PDOC ---
Infectious Disease Note Vital Sign Vital Signs Vital Signs Date Time Temp Pulse Resp B/P (MAP) Pulse Ox O2 Delivery O2 Flow Rate FiO2 03/23/18 10:23 102 137/68 03/23/18 07:00 96.6 18 95 Room Air 96.6 Labs Lab Laboratory Tests Test 03/22/18 15:56 03/22/18 21:07 03/23/18 00:52 03/23/18 01:04 White Blood Count 10.4 x10^3/uL (4.0-11.0) Red Blood Count 3.69 x10^6/uL (4.30-5.70) Hemoglobin 12.0 g/dL (13.0-17.5) Hematocrit 34.9 % (39.0-53.0) Mean Corpuscular Volume 94 fL (79-100) Mean Corpuscular Hemoglobin 32 pg (25-35) Mean Corpuscular Hemoglobin Concent 34 g/dL (31-37) Red Cell Distribution Width 15.7 % (11.5-14.5) Platelet Count 259 x10^3/uL (140-400) Neutrophils (%) (Auto) 67 % (31-73) Lymphocytes (%) (Auto) 21 % (24-48) Monocytes (%) (Auto) 10 % (0-9) Eosinophils (%) (Auto) 1 % (0-3) Basophils (%) (Auto) 1 % (0-3) Neutrophils # (Auto) 7.0 x10^3uL (1.8-7.7) Lymphocytes # (Auto) 2.2 x10^3/uL (1.0-4.8) Monocytes # (Auto) 1.1 x10^3/uL (0.0-1.1) Eosinophils # (Auto) 0.1 x10^3/uL (0.0-0.7) Basophils # (Auto) 0.1 x10^3/uL (0.0-0.2) Erythrocyte Sedimentation Rate 77 (0-15) Sodium Level 129 mmol/L (136-145) Potassium Level 4.0 mmol/L (3.5-5.1) Chloride Level 97 mmol/L (98-107) Carbon Dioxide Level 26 mmol/L (21-32) Anion Gap 6 (6-14) Blood Urea Nitrogen 35 mg/dL (8-26) Creatinine 2.0 mg/dL (0.7-1.3) Estimated GFR (Cockcroft-Gault) 33.2 BUN/Creatinine Ratio 18 (6-20) Glucose Level 344 mg/dL (70-99) Calcium Level 8.5 mg/dL (8.5-10.1) Total Bilirubin 1.1 mg/dL (0.2-1.0) Aspartate Amino Transf (AST/SGOT) 30 U/L (15-37) Alanine Aminotransferase (ALT/SGPT) 19 U/L (16-63) Alkaline Phosphatase 126 U/L (46-116) C-Reactive Protein, Quantitative 62.6 mg/L (0-3.3) Total Protein 6.6 g/dL (6.4-8.2) Albumin 2.0 g/dL (3.4-5.0) Albumin/Globulin Ratio 0.4 (1.0-1.7) Glucose (Fingerstick) 295 mg/dL (70-99) 46 mg/dL (70-99) 58 mg/dL (70-99) Test 03/23/18 01:23 03/23/18 02:31 03/23/18 03:09 03/23/18 07:20 Glucose (Fingerstick) 102 mg/dL (70-99) 53 mg/dL (70-99) 109 mg/dL (70-99) White Blood Count 12.0 x10^3/uL (4.0-11.0) Red Blood Count 3.27 x10^6/uL (4.30-5.70) Hemoglobin 10.4 g/dL (13.0-17.5) Hematocrit 30.8 % (39.0-53.0) Mean Corpuscular Volume 94 fL (79-100) Mean Corpuscular Hemoglobin 32 pg (25-35) Mean Corpuscular Hemoglobin Concent 34 g/dL (31-37) Red Cell Distribution Width 15.6 % (11.5-14.5) Platelet Count 256 x10^3/uL (140-400) Neutrophils (%) (Auto) 68 % (31-73) Lymphocytes (%) (Auto) 20 % (24-48) Monocytes (%) (Auto) 10 % (0-9) Eosinophils (%) (Auto) 1 % (0-3) Basophils (%) (Auto) 1 % (0-3) Neutrophils # (Auto) 8.2 x10^3uL (1.8-7.7) Lymphocytes # (Auto) 2.4 x10^3/uL (1.0-4.8) Monocytes # (Auto) 1.2 x10^3/uL (0.0-1.1) Eosinophils # (Auto) 0.2 x10^3/uL (0.0-0.7) Basophils # (Auto) 0.1 x10^3/uL (0.0-0.2) Sodium Level 135 mmol/L (136-145) Potassium Level 3.3 mmol/L (3.5-5.1) Chloride Level 101 mmol/L (98-107) Carbon Dioxide Level 29 mmol/L (21-32) Anion Gap 5 (6-14) Blood Urea Nitrogen 36 mg/dL (8-26) Creatinine 2.0 mg/dL (0.7-1.3) Estimated GFR (Cockcroft-Gault) 33.2 BUN/Creatinine Ratio 18 (6-20) Glucose Level 63 mg/dL (70-99) Calcium Level 8.3 mg/dL (8.5-10.1) Total Bilirubin 0.7 mg/dL (0.2-1.0) Aspartate Amino Transf (AST/SGOT) 29 U/L (15-37) Alanine Aminotransferase (ALT/SGPT) 18 U/L (16-63) Alkaline Phosphatase 114 U/L (46-116) Total Protein 6.0 g/dL (6.4-8.2) Albumin 1.8 g/dL (3.4-5.0) Albumin/Globulin Ratio 0.4 (1.0-1.7) Test 03/23/18 08:11 Glucose (Fingerstick) 79 mg/dL (70-99) Objective Assessment Nonhealing diabetic ulcer of right heel, boggy -Recent amoxicillin and doxycycline -ESR 77 h/o MRSA. Leukocytosis Renal insufficiency Diabetic ulcer left heel, looks clean PVD Diabetes w/ peripheral neuropathy Chronic lymphedema and stasis changes BLE Morbid obesity w/ BMI 43 A-fib Plan Plan of Care Change vanc to dapto given renal function Cont Zosyn Check BC and CPK level Monitor for toxicities Arterial studies pending Local wound care and offloading Followed by vascular - OR debridement in heel planned D/w RN Above /w Dr. Yanes Thank you [id number] Patient seen and examined. Chart reviewed in detail. Case discussed with [employer]. Agree with above plan. ROMANA NELSON APRN Mar 23, 2018 12:49 LASHAUN YANES MD Mar 23, 2018 19:38
--- NOTE | 2018-03-23 13:31 | CONS ---
DATE OF CONSULTATION: 03/23/2018 REASON FOR CONSULTATION: Neuropathic ulcerations of both heels. HISTORY OF PRESENT ILLNESS: This is a 72-year-old poorly-controlled, morbidly obese diabetic male who has been followed with pressure ulcers on the plantar surface of both heels. He states he has been trying to off weight these as much as possible, but that has been a difficult challenge for him. The patient states he has also been managing his blood sugars at home, but they have been persistently elevated. His hemoglobin A1c is between 12 and 14. He gives himself insulin and he checks his sugars on occasion twice a day. He admits his sugar control at home has been elevated. The patient states he has, however, lost about 60 pounds over the last many months. He attributes this to diet. He is not complaining of any ischemic rest pain. He does note that he has bilateral lower extremity edema, which has been present for quite some time. He does not complain of any calf claudication. He may have been told in the past that he had some peripheral vascular disease, but he is unsure of that. No history of coronary artery disease, but he does have a history of atrial fibrillation, congestive heart failure, hypertension and hyperlipidemia. PHYSICAL EXAMINATION: He is significantly overweight, lying in bed, in no acute distress. He has excellent radial pulses bilaterally. He has a large abdomen, pannus overlying the femoral pulses bilaterally. I can appreciate a femoral pulse on the left, but really cannot appreciate a femoral pulse on the right. No popliteal and no pedal pulses, 2+ bilateral lower extremity edema. He has an eschar on the right heel with a central area where there may be fluid collection beneath this, there is no exposed bone. There is some granulation tissue anteriorly, but posteriorly, the skin and subcutaneous tissues are , debridement was not performed. This area is insensate. On his left heel, he has a 3.5 cm diameter granulating wound on the plantar surface of his left heel. He has noted 2-3+ bilateral lower extremity edema. LABORATORY DATA: His white count is 12,000, hemoglobin 10.4, hematocrit 30.8 and a platelet count of 256,000. His electrolytes are unremarkable. Serum creatinine is 2. Blood sugar was 63 this morning. Albumin is 1.8. IMPRESSION: Morbidly obese male with diabetes, which is poorly controlled and underlying peripheral neuropathy. There is likely a component of peripheral vascular disease, but it is difficult to tell because of the difficulty in palpation of his pulses due to his underlying morbid obesity and peripheral edema. My recommendation is for arterial duplex imaging studies. He needs to completely off weight his feet. His blood sugar control is much better since being admitted to the hospital and he will need to have continued education efforts of his blood sugar management following discharge, it is better than it has been in the most recent past. I discussed this with the patient. I think his left foot is likely to heal, his right foot is going to require some debridement, and there is an area of fluid collection beneath the central portion of the right heel pressure ulcer, which may be down to the bone. He needs to be completely nonweightbearing. We will review the results of his arterial imaging studies when available. We will schedule him for operative debridement on Sunday. Continued efforts at edema control room will be helpful and consideration of DVT prophylaxis would be reasonable. I think Lovenox would not be a problem for his upcoming debridement. Orders were placed for n.p.o. after midnight and we will schedule him for surgery sometime Sunday. MOHAMUD NIEVES MD DR: DONAVAN/aline JOB#: [id number] / [id number]
[2018-03-23] MEDS: DOCUSATE SODIUM 100 MG CAPSULE. PO SCH ×2 (14:51→21:20)
[2018-03-23 15:00] VITALS: BP 94/45
[2018-03-23 17:12] LABS: HEMOGLOBIN A1C 8.2 % (4.8-5.6)
[2018-03-23 19:00] VITALS: BP 116/62
[2018-03-23] MEDS: INSULIN GLARGINE 300 UNITS/3 ML INSULN.PEN. SQ SCH (21:00)
[2018-03-23] MEDS: ATORVASTATIN CALCIUM 40 MG TABLET. PO SCH (21:20)
[2018-03-23] MEDS: LACTOBACILLUS RHAMNOSUS GG 1 CAPSULE. PO SCH (21:20)
[2018-03-23] MEDS ORDERED: VANCOMYCIN 2 GM in IV NORMAL SALINE 500ML BAG 500 ML IV SCH (22:00)
[2018-03-23 23:00] VITALS: BP 90/49
--- NOTE | 2018-03-24 02:03 | CONS ---
DATE OF CONSULTATION: 03/23/2018 REFERRING PHYSICIAN: Dr. Wise. REASON FOR CONSULTATION: Diabetic wounds. HISTORY OF PRESENT ILLNESS: This patient is a 72-year-old male with a past medical history of morbid obesity, peripheral vascular disease and a 17-year history of diabetes with neuropathy of both feet. He says several months ago, he developed an ulcer on the right heel from wearing a pair of ill-fitting shoes. He sees podiatry, Dr. Gr once a week for care. He performs daily dressing changes with Santyl. Lately, the ulcer has increased in size and draining. He was treated with amoxicillin and doxycycline outpatient without significant improvement. An x-ray of the foot revealed extensive bilateral diffuse soft tissue calcifications, nonspecific. No acute fracture or aggressive bone destruction noted. He has a sed rate of 77. Arterial studies are in progress. He is currently on vancomycin and Zosyn by primary. The patient has a previous history of MRSA infection of great toe for which he was treated with IV antibiotics and has since healed. He has chronic swelling of lower extremities bilaterally. He spends most of his day in a recliner with his feet elevated. He denies fevers, chills, sweats or body aches. He also has a chronic ulcer of the left heel. PAST MEDICAL HISTORY: 1. A 17-year history of diabetes mellitus, type 2. 2. Peripheral neuropathy. 3. Peripheral vascular disease. 4. Morbid obesity. 5. Hypertension. 6. Heart murmur, history of cardiomyopathy, congestive heart failure, coronary artery disease, hyperlipidemia, atrial fibrillation. 7. Anxiety. 8. MRSA colonization and infection of the great toe. 9. Tinnitus. PAST SURGICAL HISTORY: Teeth extraction. FAMILY HISTORY: Positive for heart disease and cancer. SOCIAL HISTORY: The patient is single and lives at home. 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 He is a nonsmoker. ALLERGIES: No known drug allergies. MEDICATIONS: Vancomycin, Zosyn, one-time dose of ceftriaxone on 03/22/2018. Other medications are available and have been reviewed on the OCT. REVIEW OF SYSTEMS: Per HPI, otherwise all other review of systems are negative. PHYSICAL EXAMINATION: GENERAL: The patient is propped up in bed, alert, in no apparent distress. VITAL SIGNS: Temperature is 96.6, blood pressure 137/68, heart rate 102, respiratory rate 18, pulse oximetry is 95% on room air. BMI 43. HEENT: Pupils equally round. Normal conjunctivae. Oral mucosa is pink and moist. NECK: Supple. LUNGS: Clear to auscultation bilaterally. HEART: S1 and S2. ABDOMEN: Obese. Bowel sounds active. Soft, nontender. EXTREMITIES: He has 3-4+ pitting edema in lower extremities bilaterally with chronic stasis changes. The ulcer of left heel looks clean with granulating tissue. The ulcer of right heel is much larger, boggy with some areas of necrotic tissue, some drainage and surrounding erythema. Distal pedis pulses difficult to palpate. SKIN: Warm without rash. NEUROLOGIC: Alert and oriented x 3. LABORATORY DATA: Today, WBC is 12,000, hemoglobin 10.4, platelet count 256,000. Sed rate 77. Sodium 135, potassium 3.3, creatinine 2.0, BUN 36, glucose 63. Hemoglobin A1c pending. Total bilirubin 0.7, AST 29, ALT 18, albumin 1.8. CRP 62.6. Foot x-ray per HPI. Tibia/fibula x-ray shows per HPI. Arterial studies pending. IMPRESSION: 1. Nonhealing diabetic ulcer of right heel, boggy. 2. History of methicillin-resistant Staphylococcus aureus. 3. Leukocytosis. 4. Renal insufficiency. 5. Diabetic ulcer, left heel. 6. Peripheral vascular disease. 7. Diabetes with peripheral neuropathy. 8. Chronic lymphedema and stasis changes in lower extremities bilaterally. 9. Morbid obesity with a body mass index of 43. 10. Atrial fibrillation. PLAN: Given his renal function, we will change vancomycin to daptomycin and continue the Zosyn. We will check a set of blood cultures and baseline CPK level. Monitor for toxicity. Arterial studies are currently in progress. Continue local wound care and offloading. He was seen by Vascular. He is scheduled to have debridement of right heel in the OR soon. Thank you, Dr. Wise, for asking us to participate in this patient's care. Should you have further questions or concerns, please call. LASHAUN SAAVEDRA MD DR: LISY/aline JOB#: [id number] / [id number] [place]
[2018-03-24 03:00] VITALS: BP 133/41
[2018-03-24] MEDS: PIPERACILLIN/TAZOBACTAM 3.375 GM in IV NORMAL SALINE 50ML 50 ML IV SCH ×4 (05:36→23:47)
[2018-03-24 07:00] VITALS: BP_SYST 121; BP_SYST 96; BP_DIAS 49; BP_DIAS 68
[2018-03-24] MEDS: INSULIN LISPRO 300 UNITS/3 ML INSULN.PEN. SQ SCH ×6 (08:00→17:44)
[2018-03-24] MEDS: LACTOBACILLUS RHAMNOSUS GG 1 CAPSULE. PO SCH ×2 (08:57→22:43)
[2018-03-24] MEDS: ALLOPURINOL 100 MG TABLET. PO SCH (08:59)
[2018-03-24] MEDS: DOCUSATE SODIUM 100 MG CAPSULE. PO SCH ×2 (08:59→22:43)
[2018-03-24] MEDS: OMEGA-3 FATTY ACIDS/FISH OIL 1,000 MG CAPSULE. PO SCH ×2 (08:59→22:43)
[2018-03-24] MEDS: amLODIPine BESYLATE 10 MG TABLET PO SCH (09:00)
[2018-03-24] MEDS: FUROSEMIDE 40 MG/4 ML VIAL. IVP SCH (09:00)
[2018-03-24] MEDS: LOSARTAN POTASSIUM 50 MG TABLET. PO SCH (09:00)
[2018-03-24] MEDS: cloNIDine HCL 0.1 MG TABLET PO SCH ×2 (09:00→14:00)
[2018-03-24] MEDS: hydroCHLOROthiazide 25 MG TABLET PO SCH (09:00)
[2018-03-24] MEDS: POTASSIUM CHLORIDE 20 MEQ TABLET.ER. PO SCH (09:00)
[2018-03-24 11:00] VITALS: BP 123/61
--- NOTE | 2018-03-24 14:07 | PDOC ---
PROGRESS NOTES Chief Complaint Chief Complaint Medical Problems: -Cellulitis & Ulceration of Feet -DM -PVD History of Present Illness History of Present Illness -Pt. seen & examined -NAD -Pt. heals & ankles display ulceration, edema, & erythema -Pt. sitting in chair during our visit -DW pt. current plan of action Vitals Vitals Vital Signs Date Time Temp Pulse Resp B/P (MAP) Pulse Ox O2 Delivery O2 Flow Rate FiO2 03/24/18 11:00 97.5 101 16 123/61 (81) 96 Room Air 97.5 Physical Exam General: Alert, Oriented X3, Cooperative, No acute distress Heart: Regular rate, Normal S1, Normal S2 Lungs: Clear, Other Abdomen: Normal bowel sounds, Soft, No tenderness, No hepatosplenomegaly, No masses Extremities: No clubbing, Other (has bilateral lymphedema, wounds appear red, redness on the bilateral shins with some oozing and weeping. Bilateral heel wounds, left looks great but the right has some granulation tissue with eschar formation on the heel) Skin: No rashes, Other Labs LABS Laboratory Tests Test 03/23/18 17:22 03/23/18 21:04 03/24/18 07:35 03/24/18 10:59 Glucose (Fingerstick) 114 mg/dL (70-99) 146 mg/dL (70-99) 88 mg/dL (70-99) 146 mg/dL (70-99) Review of Systems Review of Systems -No RAINEY -No Hypotention Assessment and Plan Assessmemt and Plan Medical Problems: -Cellulitis & Ulceration of Feet -DM -PVD Plan: -ABX - zosyn -NPO this evening in prep for surgery in the A.M. -Labs -PT/OT -SNU Evaluation -Awaiting debridement surgery scheduled for tomorrow morning Comment Review of Relevant I have reviewed the following items mara (where applicable) has been applied. Labs Laboratory Tests Test 03/22/18 15:56 03/22/18 21:07 03/23/18 00:52 03/23/18 01:04 White Blood Count 10.4 x10^3/uL (4.0-11.0) Red Blood Count 3.69 x10^6/uL (4.30-5.70) Hemoglobin 12.0 g/dL (13.0-17.5) Hematocrit 34.9 % (39.0-53.0) Mean Corpuscular Volume 94 fL (79-100) Mean Corpuscular Hemoglobin 32 pg (25-35) Mean Corpuscular Hemoglobin Concent 34 g/dL (31-37) Red Cell Distribution Width 15.7 % (11.5-14.5) Platelet Count 259 x10^3/uL (140-400) Neutrophils (%) (Auto) 67 % (31-73) Lymphocytes (%) (Auto) 21 % (24-48) Monocytes (%) (Auto) 10 % (0-9) Eosinophils (%) (Auto) 1 % (0-3) Basophils (%) (Auto) 1 % (0-3) Neutrophils # (Auto) 7.0 x10^3uL (1.8-7.7) Lymphocytes # (Auto) 2.2 x10^3/uL (1.0-4.8) Monocytes # (Auto) 1.1 x10^3/uL (0.0-1.1) Eosinophils # (Auto) 0.1 x10^3/uL (0.0-0.7) Basophils # (Auto) 0.1 x10^3/uL (0.0-0.2) Erythrocyte Sedimentation Rate 77 (0-15) Sodium Level 129 mmol/L (136-145) Potassium Level 4.0 mmol/L (3.5-5.1) Chloride Level 97 mmol/L (98-107) Carbon Dioxide Level 26 mmol/L (21-32) Anion Gap 6 (6-14) Blood Urea Nitrogen 35 mg/dL (8-26) Creatinine 2.0 mg/dL (0.7-1.3) Estimated GFR (Cockcroft-Gault) 33.2 BUN/Creatinine Ratio 18 (6-20) Glucose Level 344 mg/dL (70-99) Hemoglobin A1c 8.2 % (4.8-5.6) Calcium Level 8.5 mg/dL (8.5-10.1) Total Bilirubin 1.1 mg/dL (0.2-1.0) Aspartate Amino Transf (AST/SGOT) 30 U/L (15-37) Alanine Aminotransferase (ALT/SGPT) 19 U/L (16-63) Alkaline Phosphatase 126 U/L (46-116) C-Reactive Protein, Quantitative 62.6 mg/L (0-3.3) Total Protein 6.6 g/dL (6.4-8.2) Albumin 2.0 g/dL (3.4-5.0) Albumin/Globulin Ratio 0.4 (1.0-1.7) Glucose (Fingerstick) 295 mg/dL (70-99) 46 mg/dL (70-99) 58 mg/dL (70-99) Test 03/23/18 01:23 03/23/18 02:31 03/23/18 03:09 03/23/18 07:20 Glucose (Fingerstick) 102 mg/dL (70-99) 53 mg/dL (70-99) 109 mg/dL (70-99) White Blood Count 12.0 x10^3/uL (4.0-11.0) Red Blood Count 3.27 x10^6/uL (4.30-5.70) Hemoglobin 10.4 g/dL (13.0-17.5) Hematocrit 30.8 % (39.0-53.0) Mean Corpuscular Volume 94 fL (79-100) Mean Corpuscular Hemoglobin 32 pg (25-35) Mean Corpuscular Hemoglobin Concent 34 g/dL (31-37) Red Cell Distribution Width 15.6 % (11.5-14.5) Platelet Count 256 x10^3/uL (140-400) Neutrophils (%) (Auto) 68 % (31-73) Lymphocytes (%) (Auto) 20 % (24-48) Monocytes (%) (Auto) 10 % (0-9) Eosinophils (%) (Auto) 1 % (0-3) Basophils (%) (Auto) 1 % (0-3) Neutrophils # (Auto) 8.2 x10^3uL (1.8-7.7) Lymphocytes # (Auto) 2.4 x10^3/uL (1.0-4.8) Monocytes # (Auto) 1.2 x10^3/uL (0.0-1.1) Eosinophils # (Auto) 0.2 x10^3/uL (0.0-0.7) Basophils # (Auto) 0.1 x10^3/uL (0.0-0.2) Sodium Level 135 mmol/L (136-145) Potassium Level 3.3 mmol/L (3.5-5.1) Chloride Level 101 mmol/L (98-107) Carbon Dioxide Level 29 mmol/L (21-32) Anion Gap 5 (6-14) Blood Urea Nitrogen 36 mg/dL (8-26) Creatinine 2.0 mg/dL (0.7-1.3) Estimated GFR (Cockcroft-Gault) 33.2 BUN/Creatinine Ratio 18 (6-20) Glucose Level 63 mg/dL (70-99) Calcium Level 8.3 mg/dL (8.5-10.1) Total Bilirubin 0.7 mg/dL (0.2-1.0) Aspartate Amino Transf (AST/SGOT) 29 U/L (15-37) Alanine Aminotransferase (ALT/SGPT) 18 U/L (16-63) Alkaline Phosphatase 114 U/L (46-116) Creatine Kinase 31 U/L (39-308) Total Protein 6.0 g/dL (6.4-8.2) Albumin 1.8 g/dL (3.4-5.0) Albumin/Globulin Ratio 0.4 (1.0-1.7) Test 03/23/18 08:11 03/23/18 11:34 03/23/18 17:22 03/23/18 21:04 Glucose (Fingerstick) 79 mg/dL (70-99) 122 mg/dL (70-99) 114 mg/dL (70-99) 146 mg/dL (70-99) Test 03/24/18 07:35 03/24/18 10:59 Glucose (Fingerstick) 88 mg/dL (70-99) 146 mg/dL (70-99) Laboratory Tests Test 03/23/18 17:22 03/23/18 21:04 03/24/18 07:35 03/24/18 10:59 Glucose (Fingerstick) 114 mg/dL (70-99) 146 mg/dL (70-99) 88 mg/dL (70-99) 146 mg/dL (70-99) Microbiology 03/23/18 Blood Culture - Preliminary, Resulted NO GROWTH AFTER 1 DAY Medications Current Medications Ondansetron HCl (Zofran) 4 mg PRN Q6HRS PRN IV NAUSEA/VOMITING 1ST CHOICER Last administered on 03/22/18at 16:42; Start 03/22/18 at 16:15 Prochlorperazine Edisylate (Compazine) 10 mg PRN Q6HRS PRN IV NAUSEA/VOMITING 2ND CHOICE; Start 03/22/18 at 16:15 Al Hydroxide/Mg Hydroxide (Mylanta Plus Xs) 30 ml PRN Q3HRS PRN PO HEARTBURN / GAS; Start 03/22/18 at 16:15 Calcium Carbonate/ Glycine (Tums) 500 mg PRN Q3HRS PRN PO UPSET STOMACH; Start 03/22/18 at 16:15 Oxycodone HCl (Roxicodone) 5 mg PRN Q3HRS PRN PO BREAKTHROUGH PAIN; Start 03/22 at 16:15 Morphine Sulfate (Morphine Sulfate) 2 mg PRN Q2HR PRN IV PAIN; Start 03/22/18 at 16:15 Acetaminophen (Tylenol) 650 mg PRN Q6HRS PRN PO Headaches, Temp > 101.5F; Start 03/22/18 at 16:15 Docusate Sodium (Colace) 100 mg BID PO Last administered on 03/24/18at 08:59; Start 03/22/18 at 21:00 Magnesium Hydroxide (Milk Of Magnesia) 2,400 mg PRN Q12HR PRN PO CONSTIPATION; Start 03/22/18 at 16:15 Bisacodyl (Dulcolax Supp) 10 mg PRN DAILY PRN CA CONSTIPATION; Start 03/22/18 at 16:15 Insulin Human Lispro (HumaLOG) 0-9 UNITS TIDWMEALS SQ Last administered on 03/22at 22:41; Start 03/22/18 at 17:00 Dextrose (Dextrose 50%-Water Syringe) 12.5 gm PRN Q15MIN PRN IV SEE COMMENTS Last administered on 03/23/18at 02:48; Start 03/22/18 at 16:15 Furosemide (Lasix) 40 mg DAILY IVP Last administered on 03/24/18at 09:00; Start 03/23/18 at 09:00 Furosemide (Lasix) 40 mg 1X ONCE IVP Last administered on 03/22/18at 16:54; Start 03/22/18 at 16:15; Stop 03/22/18 at 16:32; Status DC Allopurinol (Zyloprim) 100 mg DAILY PO Last administered on 03/24/18 08:59; Start 03/23/18 at 09:00 Amlodipine Besylate (Norvasc) 10 mg DAILY PO Last administered on 03/23/18at 10: 23; Start 03/23/18 at 09:00 Atorvastatin Calcium (Lipitor) 40 mg HS PO Last administered on 03/23/18at 21:20 ; Start 03/22/18 at 21:00 Clonidine HCl (Catapres) 0.1 mg TID PO ; Start 03/22/18 at 16:45 Insulin Human Lispro (HumaLOG) 25 units TIDWMEALS SQ Last administered on at 12:30; Start 03/22/18 at 18:00 Fish Oil (Fish Oil) 1,000 mg BID PO Last administered on 03/24/18 08:59; Start 03/22/18 at 21:00 Hydralazine HCl (Apresoline) 100 mg TID PO Last administered on 03/23/18at 21:18 ; Start 03/22/18 at 21:00 Insulin Glargine (Lantus) 44 units HS SQ Last administered on 03/22/18at 22:42; Start 03/22/18 at 21:00 Losartan Potassium (Cozaar) 100 mg DAILY PO Last administered on 03/23/18at 10: 23; Start 03/23/18 at 09:00 Potassium Chloride (Klor-Con) 20 meq DAILYWBKFT PO Last administered on at 09:00; Start 03/23/18 at 08:00 Vancomycin HCl (Vanco Per Pharmacy) 1 each PRN DAILY PRN MC SEE COMMENTS Last administered on 03/23/18at 01:02; Start 03/22/18 at 16:15; Stop 03/23/18 at 12:22 ; Status DC Piperacillin Sod/ Tazobactam Sod (Zosyn Per Pharmacy) 1 each PRN DAILY PRN MC SEE COMMENTS; Start 03/22/18 at 16:15 Sodium Chloride 1,000 ml @ 1,000 mls/hr 1X ONCE IV Last administered on at 16:41; Start 03/22/18 at 16:30; Stop 03/22/18 at 17:29; Status DC Ceftriaxone Sodium 50 ml @ 100 mls/hr 1X ONCE IV Last administered on at 16:41; Start 03/22/18 at 16:30; Stop 03/22/18 at 16:59; Status DC Vancomycin HCl 2 gm/Sodium Chloride 500 ml @ 250 mls/hr 1X ONCE IV Last administered on 03/22/18at 22:16; Start 03/22/18 at 17:00; Stop 03/22/18 at 18:59 ; Status DC Piperacillin Sod/ Tazobactam Sod 3.375 gm/Sodium Chloride 50 ml @ 100 mls/hr 1X ONCE IV Last administered on 03/22/18at 18:01; Start 03/22/18 at 16:45; Stop 03/22/18 at 17:14; Status DC Hydrochlorothiazide (Hydrodiuril) 25 mg DAILY PO Last administered on at 10:24; Start 03/23/18 at 09:00 Piperacillin Sod/ Tazobactam Sod 3.375 gm/Sodium Chloride 50 ml @ 100 mls/hr Q6HRS IV Last administered on 03/24/18at 05:36; Start 03/23/18 at 00:00 Vancomycin HCl 2 gm/Sodium Chloride 500 ml @ 250 mls/hr Q24H IV ; Start at 22:00; Stop 03/23/18 at 22:00; Status DC Vancomycin HCl (Vancomycin Trough Level) 1 each 1X ONCE MC ; Start 03/24/18 at 21:30; Stop 03/24/18 at 21:30; Status DC Daptomycin 500 mg/ Sodium Chloride 50 ml @ 100 mls/hr Q24H IV Last administered on 03/23/18at 14:52; Start 03/23/18 at 13:00 Lactobacillus Rhamnosus (Culturelle) 1 cap BID PO Last administered on at 08:57; Start 03/23/18 at 21:00 Active Scripts Active Reported Fish Oil 1,000 Mg Capsule (Downs-3 Fatty Acids/Fish Oil) 1 Each Capsule 1 Each PO DAILY Vemlidy (Tenofovir Alafenamide Fumarate) 25 Mg Tablet 25 Mg PO DAILY Metolazone 2.5 Mg Tablet 2.5 Mg PO DAILY Doxycycline Hyclate 100 Mg Tablet 2 Tab PO BID Amoxicillin 500 Mg Capsule 500 Mg PO QID Hydralazine Hcl 100 Mg Tablet 50 Mg PO TID Potassium Chloride 20 Meq Tablet.er 20 Meq PO BID Lantus (Insulin Glargine,Hum.rec.anlog) 100 Unit/1 Ml Vial 50 Unit SQ HS Aspirin 325 Mg Tablet 325 Mg PO DAILY Atorvastatin Calcium 40 Mg Tablet 40 Mg PO HS Losartan-Hctz 100-25 Mg Tab (Losartan/Hydrochlorothiazide) 1 Each Tablet 1 Each PO DAILY Allopurinol 100 Mg Tablet 100 Mg PO DAILY Amlodipine Besylate 10 Mg Tablet 5 Mg PO DAILY Furosemide 40 Mg Tablet 80 Mg PO BID Humalog (Insulin Lispro) 100 Unit/1 Ml Insuln.pen 25 Unit SQ TID Vitals/I & O Vital Sign - Last 24 Hours 03/23/18 03/23/18 03/23/18 03/23/18 14:52 15:00 19:00 20:00 Temp 97.7 98.2 97.7 98.2 Pulse 101 111 104 Resp 16 16 B/P (MAP) 116/67 94/45 (61) 116/62 (80) Pulse Ox 93 96 O2 Delivery Room Air Room Air Room Air 03/23/18 03/23/18 03/24/18 03/24/18 21:18 23:00 03:00 07:00 Temp 97.5 97.9 98.8 97.5 97.9 98.8 Pulse 104 112 111 99 Resp 16 16 16 B/P (MAP) 116/62 90/49 (63) 133/41 (71) 96/49 (65) Pulse Ox 96 95 92 O2 Delivery Room Air Room Air Room Air 03/24/18 03/24/18 03/24/18 03/24/18 08:58 09:00 09:00 09:00 Pulse 99 99 99 99 B/P (MAP) 96/49 96/49 96/49 96/49 03/24/18 11:00 Temp 97.5 97.5 Pulse 101 Resp 16 B/P (MAP) 123/61 (81) Pulse Ox 96 O2 Delivery Room Air Intake and Output 03/23/18 03/23/18 03/24/18 15:00 23:00 07:00 Output Total 800 ml 200 ml Balance -800 ml -200 ml BETO WILSON K III DO Mar 24, 2018 14:07
--- NOTE | 2018-03-24 14:22 | PDOC ---
Infectious Disease Note Subjective Subjective Comfortable, no pain Appetite so-so Denies F/C/S/aches/N/V/D/SOA ROS ROS per HPI otherwise neg Vital Sign Vital Signs Vital Signs Date Time Temp Pulse Resp B/P (MAP) Pulse Ox O2 Delivery O2 Flow Rate FiO2 03/24/18 11:00 97.5 101 16 123/61 (81) 96 Room Air 97.5 Physical Exam PHYSICAL EXAM GENERAL: Sitting in the recliner, legs elevated, relaxed appearance HEENT: Pupils equally round. Normal conjunctivae. Oral mucosa is pink and moist. NECK: Supple. LUNGS: Clear to auscultation bilaterally. HEART: S1 and S2. ABDOMEN: Obese. Bowel sounds active. Soft, nontender. EXTREMITIES: He has 3-4+ pitting edema in lower extremities bilaterally with chronic stasis changes. The ulcer of left heel looks clean with granulating tissue. The ulcer of right heel is much larger, boggy with some areas of necrotic tissue, some drainage and surrounding erythema. Distal pedis pulses difficult to palpate. SKIN: Warm without rash. NEUROLOGIC: Alert and oriented x 3. Labs Lab Laboratory Tests Test 03/23/18 17:22 03/23/18 21:04 03/24/18 07:35 03/24/18 10:59 Glucose (Fingerstick) 114 mg/dL (70-99) 146 mg/dL (70-99) 88 mg/dL (70-99) 146 mg/dL (70-99) Micro Microbiology 03/23/18 Blood Culture - Preliminary, Resulted NO GROWTH AFTER 1 DAY Objective Assessment Nonhealing diabetic ulcer of right heel, boggy -Recent amoxicillin and doxycycline -ESR 77 h/o MRSA. Leukocytosis Renal insufficiency Diabetic ulcer left heel, looks clean PVD Diabetes w/ peripheral neuropathy Chronic lymphedema and stasis changes BLE Morbid obesity w/ BMI 43 A-fib Plan Plan of Care Dapto given renal function Cont Zosyn BC NGTD Monitor for toxicities Arterial studies pending Local wound care and offloading Followed by vascular - OR debridement in heel on Sunday Would to have intra-op cultures D/w RN Patient seen and examined. Chart reviewed in detail. Case discussed with WIRE COMMUNICATIONS ENGINEER. Agree with above plan. ROMANA NELSON APRN Mar 24, 2018 14:22 LASHAUN SAAVEDRA MD Mar 24, 2018 21:16
[2018-03-24 15:00] VITALS: BP 139/70
[2018-03-24 19:00] VITALS: BP 143/91
[2018-03-24] MEDS: INSULIN GLARGINE 300 UNITS/3 ML INSULN.PEN. SQ SCH (21:00)
[2018-03-24] MEDS: ATORVASTATIN CALCIUM 40 MG TABLET. PO SCH (22:43)
[2018-03-24 23:00] VITALS: BP 117/69
[2018-03-25 03:00] VITALS: BP 98/36
[2018-03-25] MEDS: PIPERACILLIN/TAZOBACTAM 3.375 GM in IV NORMAL SALINE 50ML 50 ML IV SCH ×3 (05:50→17:49)
[2018-03-25 07:00] VITALS: BP 123/65
[2018-03-25] MEDS: INSULIN LISPRO 300 UNITS/3 ML INSULN.PEN. SQ SCH ×6 (08:00→16:28)
--- NOTE | 2018-03-25 08:33 | RAD ---
Bilateral lower extremity arterial ultrasound, 03/23/2018: HISTORY: Diabetic foot wound Duplex evaluation of the major arteries in both lower extremities was performed including grayscale, color-flow and spectral Doppler analysis. The study was suboptimal due to the patient's body habitus. The calf arteries were particularly poorly demonstrated. On the right, the common femoral Doppler waveform is triphasic. There are mild scattered atherosclerotic plaques in the thigh. No significant focal velocity acceleration was seen in the femoral or popliteal arteries on the right to suggest high-grade focal stenosis. In the right calf, monophasic Doppler waveform was identified in the posterior tibial and peroneal arteries. A patent anterior tibial artery could not be identified. There is monophasic blood flow in the right dorsalis pedis artery with a peak systolic velocity of 61 cm/s. On the left, there is predominantly biphasic Doppler flow in the femoral and popliteal arteries without evidence of high-grade focal stenosis. There are mild scattered atherosclerotic plaques. A patent posterior tibial artery is present left calf. Patent anterior tibial and peroneal arteries could not be demonstrated. The left dorsalis pedis artery is patent demonstrating a monophasic Doppler waveform with a peak systolic velocity of 59 cm/s. IMPRESSION: 1. Suboptimal exam due to the patient's body habitus. 2. No high-grade femoral-popliteal stenosis is identified. 3. Poor visualization of the calf arteries with probable anterior tibial artery occlusions bilaterally. 4. Patent dorsalis pedis arteries with mildly degraded Doppler waveforms. Electronically signed by: Matti Bhatia MD (03/25/2018 8:30 AM) [facility]
--- NOTE | 2018-03-25 08:44 | PDOC ---
Infectious Disease Note Subjective Subjective Comfortable, no pain Appetite so-so Denies F/C/S/aches/N/V/D/SOA Vital Sign Vital Signs Vital Signs Date Time Temp Pulse Resp B/P (MAP) Pulse Ox O2 Delivery O2 Flow Rate FiO2 03/25/18 03:00 98.4 104 18 98/36 (56) 92 Room Air 98.4 Physical Exam PHYSICAL EXAM GENERAL: Sitting in the recliner, legs elevated, relaxed appearance HEENT: Pupils equally round. Normal conjunctivae. Oral mucosa is pink and moist. NECK: Supple. LUNGS: Clear to auscultation bilaterally. HEART: S1 and S2. ABDOMEN: Obese. Bowel sounds active. Soft, nontender. EXTREMITIES: He has 3-4+ pitting edema in lower extremities bilaterally with chronic stasis changes. The ulcer of left heel looks clean with granulating tissue. The ulcer of right heel is much larger, boggy with some areas of necrotic tissue, some drainage and surrounding erythema. Distal pedis pulses difficult to palpate. SKIN: Warm without rash. NEUROLOGIC: Alert and oriented x 3. Labs Lab Laboratory Tests Test 03/24/18 10:59 03/24/18 16:22 03/24/18 20:21 03/25/18 07:44 Glucose (Fingerstick) 146 mg/dL (70-99) 158 mg/dL (70-99) 144 mg/dL (70-99) 114 mg/dL (70-99) Micro Microbiology 03/23/18 Blood Culture - Preliminary, Resulted NO GROWTH AFTER 1 DAY Objective Assessment 1. Nonhealing diabetic ulcer of right heel, boggy. 2. History of methicillin-resistant Staphylococcus aureus. 3. Leukocytosis. 4. Renal insufficiency. 5. Diabetic ulcer, left heel. 6. Peripheral vascular disease. 7. Diabetes with peripheral neuropathy. 8. Chronic lymphedema and stasis changes in lower extremities bilaterally. 9. Morbid obesity with a body mass index of 43. 10. Atrial fibrillation. Plan Plan of Care Dapto given renal function Cont Zosyn BC NGTD Monitor for toxicities Arterial studies pending Local wound care and offloading Followed by vascular - OR debridement in heel on Sunday Would to have intra-op cultures D/w MIKE LOVE MD Mar 25, 2018 08:44
[2018-03-25] MEDS: OMEGA-3 FATTY ACIDS/FISH OIL 1,000 MG CAPSULE. PO SCH ×2 (09:00→21:12)
[2018-03-25] MEDS: hydroCHLOROthiazide 25 MG TABLET PO SCH (09:00)
[2018-03-25] MEDS: amLODIPine BESYLATE 10 MG TABLET PO SCH (09:00)
[2018-03-25] MEDS: ALLOPURINOL 100 MG TABLET. PO SCH ×2 (09:00→11:56)
[2018-03-25] MEDS: LACTOBACILLUS RHAMNOSUS GG 1 CAPSULE. PO SCH ×3 (09:00→21:12)
[2018-03-25] MEDS: FUROSEMIDE 40 MG/4 ML VIAL. IVP SCH (09:03)
[2018-03-25] MEDS: POTASSIUM CHLORIDE 20 MEQ TABLET.ER. PO SCH (09:05)
[2018-03-25 11:00] VITALS: BP 133/72
--- NOTE | 2018-03-25 11:19 | PDOC ---
Provider Note Provider Note Vascular S: Patient without complaints, lying in bed with heels on bed O: Alert and Ox3 VSS, afebrile Bilateral dressings dry and intact to heels Arterial US: IMPRESSION: 1. Suboptimal exam due to the patient's body habitus. 2. No high-grade femoral-popliteal stenosis is identified. 3. Poor visualization of the calf arteries with probable anterior tibial artery occlusions bilaterally. 4. Patent dorsalis pedis arteries with mildly degraded Doppler waveforms A/P: Bilateral heel pressure sores DM Peripheral Neuropathy Morbid Obesity Recommend bilateral heel dbridements, surgery postponed until tomorrow afternoon. Discussed with patient he is willing to proceed. CHAS BERNAL APRN Mar 25, 2018 11:19
--- NOTE | 2018-03-25 11:26 | PDOC ---
PROGRESS NOTES Chief Complaint Chief Complaint 1. Nonhealing diabetic ulcer of right heel, boggy. 2. History of methicillin-resistant Staphylococcus aureus. 3. Leukocytosis. 4. Renal insufficiency. 5. Diabetic ulcer, left heel. 6. Peripheral vascular disease. 7. Diabetes with peripheral neuropathy. 8. Chronic lymphedema and stasis changes in lower extremities bilaterally. 9. obesity BMI 43. History of Present Illness History of Present Illness Dapto per ID, pos MRSA screen Vasc surg to OR in the AM, debridement in heel Local wound care and offloading Pt and OT when able discused. current plan of action Vitals Vitals Vital Signs Date Time Temp Pulse Resp B/P (MAP) Pulse Ox O2 Delivery O2 Flow Rate FiO2 03/25/18 09:00 115 123/65 03/25/18 07:00 98.1 17 92 Room Air 98.1 Physical Exam Physical Exam GENERAL: Sitting in the recliner, legs elevated, relaxed appearance HEENT: Pupils equally round. Normal conjunctivae. Oral mucosa is pink and moist. NECK: Supple. LUNGS: Clear to auscultation bilaterally. HEART: S1 and S2. ABDOMEN: Obese. Bowel sounds active. Soft, nontender. EXTREMITIES: He has 3-4+ pitting edema in lower extremities bilaterally with chronic stasis changes. The ulcer of left heel looks clean with granulating tissue. The ulcer of right heel is much larger, boggy with some areas of necrotic tissue, some drainage and surrounding erythema. Distal pedis pulses difficult to palpate. SKIN: Warm without rash. NEUROLOGIC: Alert and oriented x 3. General: Alert, Oriented X3, Cooperative, No acute distress Heart: Regular rate, Normal S1, Normal S2 Lungs: Clear, Other Abdomen: Normal bowel sounds, Soft, No tenderness, No hepatosplenomegaly, No masses Extremities: No clubbing, Other (has bilateral lymphedema, wounds appear red, redness on the bilateral shins with some oozing and weeping. Bilateral heel wounds, left looks great but the right has some granulation tissue with eschar formation on the heel) Skin: No rashes, Other Labs LABS Laboratory Tests Test 03/24/18 16:22 03/24/18 20:21 03/25/18 07:44 Glucose (Fingerstick) 158 mg/dL (70-99) 144 mg/dL (70-99) 114 mg/dL (70-99) Review of Systems Review of Systems no n.v.d Assessment and Plan Assessmemt and Plan Problems Medical Problems: (1) Abscess or cellulitis of ankle Status: Acute (2) Abscess or cellulitis of ankle Status: Acute (3) Diabetes Status: Acute (4) Diabetes Status: Acute (5) PVD (peripheral vascular disease) Status: Acute (6) PVD (peripheral vascular disease) Status: Acute Comment Review of Relevant I have reviewed the following items mara (where applicable) has been applied. Labs Laboratory Tests Test 03/23/18 11:34 03/23/18 17:22 03/23/18 21:04 03/24/18 07:35 Glucose (Fingerstick) 122 mg/dL (70-99) 114 mg/dL (70-99) 146 mg/dL (70-99) 88 mg/dL (70-99) Test 03/24/18 10:59 03/24/18 16:22 03/24/18 20:21 03/25/18 07:44 Glucose (Fingerstick) 146 mg/dL (70-99) 158 mg/dL (70-99) 144 mg/dL (70-99) 114 mg/dL (70-99) Laboratory Tests Test 03/24/18 16:22 03/24/18 20:21 03/25/18 07:44 Glucose (Fingerstick) 158 mg/dL (70-99) 144 mg/dL (70-99) 114 mg/dL (70-99) Microbiology 03/23/18 Blood Culture - Preliminary, Resulted NO GROWTH AFTER 1 DAY Medications Current Medications Ondansetron HCl (Zofran) 4 mg PRN Q6HRS PRN IV NAUSEA/VOMITING 1ST CHOICER Last administered on 03/22/18at 16:42; Start 03/22/18 at 16:15 Prochlorperazine Edisylate (Compazine) 10 mg PRN Q6HRS PRN IV NAUSEA/VOMITING 2ND CHOICE; Start 03/22/18 at 16:15 Al Hydroxide/Mg Hydroxide (Mylanta Plus Xs) 30 ml PRN Q3HRS PRN PO HEARTBURN / GAS; Start 03/22/18 at 16:15 Calcium Carbonate/ Glycine (Tums) 500 mg PRN Q3HRS PRN PO UPSET STOMACH; Start 03/22/18 at 16:15 Oxycodone HCl (Roxicodone) 5 mg PRN Q3HRS PRN PO PAIN; Start 03/22/18 at 16:15 Morphine Sulfate (Morphine Sulfate) 2 mg PRN Q2HR PRN IV PAIN; Start 03/22/18 at 16:15 Acetaminophen (Tylenol) 650 mg PRN Q6HRS PRN PO Headaches, Temp > 101.5F; Start 03/22/18 at 16:15 Docusate Sodium (Colace) 100 mg BID PO Last administered on 03/24/18at 22:43; Start 03/22/18 at 21:00 Magnesium Hydroxide (Milk Of Magnesia) 2,400 mg PRN Q12HR PRN PO CONSTIPATION; Start 03/22/18 at 16:15 Bisacodyl (Dulcolax Supp) 10 mg PRN DAILY PRN PA CONSTIPATION; Start 03/22/18 at 16:15 Insulin Human Lispro (HumaLOG) 0-9 UNITS TIDWMEALS SQ Last administered on 03/22at 22:41; Start 03/22/18 at 17:00 Dextrose (Dextrose 50%-Water Syringe) 12.5 gm PRN Q15MIN PRN IV SEE COMMENTS Last administered on 03/23/18at 02:48; Start 03/22/18 at 16:15 Furosemide (Lasix) 40 mg DAILY IVP Last administered on 03/25/18at 09:03; Start 03/23/18 at 09:00 Furosemide (Lasix) 40 mg 1X ONCE IVP Last administered on 03/22/18at 16:54; Start 03/22/18 at 16:15; Stop 03/22/18 at 16:32; Status DC Allopurinol (Zyloprim) 100 mg DAILY PO Last administered on 03/24/18at 08:59; Start 03/23/18 at 09:00 Amlodipine Besylate (Norvasc) 10 mg DAILY PO Last administered on 03/23/18at 10: 23; Start 03/23/18 at 09:00 Atorvastatin Calcium (Lipitor) 40 mg HS PO Last administered on 03/24/18at 22:43 ; Start 03/22/18 at 21:00 Clonidine HCl (Catapres) 0.1 mg TID PO ; Start 03/22/18 at 16:45; Stop 03/24/18 at 19:47; Status DC Insulin Human Lispro (HumaLOG) 25 units TIDWMEALS SQ Last administered on at 17:44; Start 03/22/18 at 18:00 Fish Oil (Fish Oil) 1,000 mg BID PO Last administered on 03/24/18at 22:43; Start 03/22/18 at 21:00 Hydralazine HCl (Apresoline) 100 mg TID PO Last administered on 03/23/18at 21:18 ; Start 03/22/18 at 21:00; Stop 03/24/18 at 19:47; Status DC Insulin Glargine (Lantus) 44 units HS SQ Last administered on 03/22/18at 22:42; Start 03/22/18 at 21:00 Losartan Potassium (Cozaar) 100 mg DAILY PO Last administered on 03/23/18at 10: 23; Start 03/23/18 at 09:00; Stop 03/24/18 at 19:47; Status DC Potassium Chloride (Klor-Con) 20 meq DAILYWBKFT PO Last administered on at 09:05; Start 03/23/18 at 08:00 Vancomycin HCl (Vanco Per Pharmacy) 1 each PRN DAILY PRN MC SEE COMMENTS Last administered on 03/23/18at 01:02; Start 03/22/18 at 16:15; Stop 03/23/18 at 12:22 ; Status DC Piperacillin Sod/ Tazobactam Sod (Zosyn Per Pharmacy) 1 each PRN DAILY PRN MC SEE COMMENTS; Start 03/22/18 at 16:15 Sodium Chloride 1,000 ml @ 1,000 mls/hr 1X ONCE IV Last administered on at 16:41; Start 03/22/18 at 16:30; Stop 03/22/18 at 17:29; Status DC Ceftriaxone Sodium 50 ml @ 100 mls/hr 1X ONCE IV Last administered on at 16:41; Start 03/22/18 at 16:30; Stop 03/22/18 at 16:59; Status DC Vancomycin HCl 2 gm/Sodium Chloride 500 ml @ 250 mls/hr 1X ONCE IV Last administered on 03/22/18at 22:16; Start 03/22/18 at 17:00; Stop 03/22/18 at 18:59 ; Status DC Piperacillin Sod/ Tazobactam Sod 3.375 gm/Sodium Chloride 50 ml @ 100 mls/hr 1X ONCE IV Last administered on 03/22/18at 18:01; Start 03/22/18 at 16:45; Stop 03/22/18 at 17:14; Status DC Hydrochlorothiazide (Hydrodiuril) 25 mg DAILY PO Last administered on at 10:24; Start 03/23/18 at 09:00 Piperacillin Sod/ Tazobactam Sod 3.375 gm/Sodium Chloride 50 ml @ 100 mls/hr Q6HRS IV Last administered on 03/25/18at 05:50; Start 03/23/18 at 00:00 Vancomycin HCl 2 gm/Sodium Chloride 500 ml @ 250 mls/hr Q24H IV ; Start at 22:00; Stop 03/23/18 at 22:00; Status DC Vancomycin HCl (Vancomycin Trough Level) 1 each 1X ONCE MC ; Start 03/24/18 at 21:30; Stop 03/24/18 at 21:30; Status DC Daptomycin 500 mg/ Sodium Chloride 50 ml @ 100 mls/hr Q24H IV Last administered on 03/24/18at 15:04; Start 03/23/18 at 13:00 Lactobacillus Rhamnosus (Culturelle) 1 cap BID PO Last administered on at 22:43; Start 03/23/18 at 21:00 Active Scripts Active Reported Fish Oil 1,000 Mg Capsule ([place]-3 Fatty Acids/Fish Oil) 1 Each Capsule 1 Each PO DAILY Vemlidy (Tenofovir Alafenamide Fumarate) 25 Mg Tablet 25 Mg PO DAILY Metolazone 2.5 Mg Tablet 2.5 Mg PO DAILY Doxycycline Hyclate 100 Mg Tablet 2 Tab PO BID Amoxicillin 500 Mg Capsule 500 Mg PO QID Hydralazine Hcl 100 Mg Tablet 50 Mg PO TID Potassium Chloride 20 Meq Tablet.er 20 Meq PO BID Lantus (Insulin Glargine,Hum.rec.anlog) 100 Unit/1 Ml Vial 50 Unit SQ HS Aspirin 325 Mg Tablet 325 Mg PO DAILY Atorvastatin Calcium 40 Mg Tablet 40 Mg PO HS Losartan-Hctz 100-25 Mg Tab (Losartan/Hydrochlorothiazide) 1 Each Tablet 1 Each PO DAILY Allopurinol 100 Mg Tablet 100 Mg PO DAILY Amlodipine Besylate 10 Mg Tablet 5 Mg PO DAILY Furosemide 40 Mg Tablet 80 Mg PO BID Humalog (Insulin Lispro) 100 Unit/1 Ml Insuln.pen 25 Unit SQ TID Vitals/I & O Vital Sign - Last 24 Hours 03/24/18 03/24/18 03/24/18 03/24/18 14:00 14:00 15:00 19:00 Temp 97.7 98.6 97.7 98.6 Pulse 101 101 111 115 Resp 18 18 B/P (MAP) 123/61 123/61 139/70 (93) 143/91 (108) Pulse Ox 95 92 O2 Delivery Room Air Room Air 03/24/18 03/24/18 03/25/18 03/25/18 20:00 23:00 03:00 07:00 Temp 99.1 98.4 98.1 99.1 98.4 98.1 Pulse 99 104 115 Resp 18 18 17 B/P (MAP) 117/69 (85) 98/36 (56) 123/65 (84) Pulse Ox 92 92 92 O2 Delivery Room Air Room Air Room Air Room Air 03/25/18 09:00 Pulse 115 B/P (MAP) 123/65 Intake and Output 03/24/18 03/24/18 03/25/18 15:01 23:01 07:01 Intake Total 400 ml 0 ml Output Total 300 ml 600 ml Balance 100 ml -600 ml CINDI PERKINS MD Mar 25, 2018 11:26
[2018-03-25] MEDS: DOCUSATE SODIUM 100 MG CAPSULE. PO SCH ×2 (11:56→21:12)
[2018-03-25 15:00] VITALS: BP 115/65
[2018-03-25 19:00] VITALS: BP 124/70
[2018-03-25] MEDS ORDERED: IV NORMAL SALINE 1000ML BAG 1,000 ML IV ONE (21:00)
[2018-03-25] MEDS: INSULIN GLARGINE 300 UNITS/3 ML INSULN.PEN. SQ SCH (21:00)
[2018-03-25] MEDS: ATORVASTATIN CALCIUM 40 MG TABLET. PO SCH (21:12)
[2018-03-25 22:38] VITALS: BP 130/75
[2018-03-26] VITALS (13 sets, daily range): BP systolic 124–150; BP diastolic 62–84
[2018-03-26] MEDS: PIPERACILLIN/TAZOBACTAM 3.375 GM in IV NORMAL SALINE 50ML 50 ML IV SCH ×5 (00:11→23:46)
[2018-03-26 05:05] LABS: BASO # 0.1 x10^3/uL (0.0-0.2); BASO % 1 % (0-3); EOS # 0.5 x10^3/uL (0.0-0.7); EOS % 5 % (0-3); HEMOGLOBIN 10.4 g/dL (13.0-17.5); LYMPH # 3.5 x10^3/uL (1.0-4.8); LYMPH % 36 % (24-48); MEAN CORPUSCULAR HEMOGLOBIN 33 pg (25-35); MEAN CORPUSCULAR HGB CONC 35 g/dL (31-37); MEAN CORPUSCULAR VOLUME 94 fL (79-100); MONO # 1.1 x10^3/uL (0.0-1.1); MONO % 12 % (0-9); NEUT # 4.4 x10^3uL (1.8-7.7); NEUT % 45 % (31-73); PLATELET COUNT 243 x10^3/uL (140-400); RED BLOOD COUNT 3.18 x10^6/uL (4.30-5.70); RED CELL DISTRIBUTION WIDTH 15.6 % (11.5-14.5); WHITE BLOOD COUNT 9.6 x10^3/uL (4.0-11.0)
[2018-03-26 05:35] LABS: ALBUMIN 1.6 g/dL (3.4-5.0); ALBUMIN/GLOBULIN RATIO 0.4 (1.0-1.7); CALCIUM 8.2 mg/dL (8.5-10.1); CREATININE 1.8 mg/dL (0.7-1.3); GFR 37.5; TOTAL BILIRUBIN 0.6 mg/dL (0.2-1.0); TOTAL PROTEIN 5.7 g/dL (6.4-8.2)
[2018-03-26 05:46] LABS: POTASSIUM 2.8 mmol/L (3.5-5.1)
[2018-03-26] MEDS ORDERED: POTASSIUM CHLORIDE 20 MEQ TABLET.ER. PO ONE ×2 (06:00→12:00)
[2018-03-26] MEDS ORDERED: HYDROmorphone 2 MG/ML VIAL IV PRN (07:00)
[2018-03-26] MEDS ORDERED: PROCHLORPERAZINE 10 MG/2 ML VIAL. IV PRN (07:00)
[2018-03-26] MEDS ORDERED: ONDANSETRON PF 4 MG/2 ML VIAL. IV PRN (07:00)
[2018-03-26] MEDS ORDERED: LIDOCAINE 1% PF 2 ML VIAL. ID PRN (07:00)
[2018-03-26] MEDS ORDERED: MORPHINE SULFATE 2 MG/ML VIAL. IV PRN (07:00)
[2018-03-26] MEDS ORDERED: fentaNYL PF VIAL 100 MCG/2 ML VIAL IV PRN ×2 (07:00)
[2018-03-26] MEDS ORDERED: IV RINGERS,LACTATED 1000ML 1,000 ML IV SCH (07:00)
[2018-03-26] MEDS: INSULIN LISPRO 300 UNITS/3 ML INSULN.PEN. SQ SCH ×6 (08:00→17:00)
--- NOTE | 2018-03-26 08:28 | PDOC ---
Infectious Disease Note Subjective Subjective Comfortable, no pain Appetite so-so Denies F/C/S/aches/N/V/D/SOA Vital Sign Vital Signs Vital Signs Date Time Temp Pulse Resp B/P (MAP) Pulse Ox O2 Delivery O2 Flow Rate FiO2 03/26/18 07:15 97.3 108 20 133/67 (89) 96 Room Air 97.3 Physical Exam PHYSICAL EXAM GENERAL: Sitting in the recliner, legs elevated, relaxed appearance HEENT: Pupils equally round. Normal conjunctivae. Oral mucosa is pink and moist. NECK: Supple. LUNGS: Clear to auscultation bilaterally. HEART: S1 and S2. ABDOMEN: Obese. Bowel sounds active. Soft, nontender. EXTREMITIES: He has 3-4+ pitting edema in lower extremities bilaterally with chronic stasis changes. The ulcer of left heel looks clean with granulating tissue. The ulcer of right heel is much larger, boggy with some areas of necrotic tissue, some drainage and surrounding erythema. Distal pedis pulses difficult to palpate. SKIN: Warm without rash. NEUROLOGIC: Alert and oriented x 3. Labs Lab Laboratory Tests Test 03/25/18 11:04 03/25/18 15:58 03/25/18 18:43 03/25/18 20:32 Glucose (Fingerstick) 150 mg/dL (70-99) 67 mg/dL (70-99) 121 mg/dL (70-99) 122 mg/dL (70-99) Test 03/26/18 04:00 03/26/18 07:14 White Blood Count 9.6 x10^3/uL (4.0-11.0) Red Blood Count 3.18 x10^6/uL (4.30-5.70) Hemoglobin 10.4 g/dL (13.0-17.5) Hematocrit 30.0 % (39.0-53.0) Mean Corpuscular Volume 94 fL (79-100) Mean Corpuscular Hemoglobin 33 pg (25-35) Mean Corpuscular Hemoglobin Concent 35 g/dL (31-37) Red Cell Distribution Width 15.6 % (11.5-14.5) Platelet Count 243 x10^3/uL (140-400) Neutrophils (%) (Auto) 45 % (31-73) Lymphocytes (%) (Auto) 36 % (24-48) Monocytes (%) (Auto) 12 % (0-9) Eosinophils (%) (Auto) 5 % (0-3) Basophils (%) (Auto) 1 % (0-3) Neutrophils # (Auto) 4.4 x10^3uL (1.8-7.7) Lymphocytes # (Auto) 3.5 x10^3/uL (1.0-4.8) Monocytes # (Auto) 1.1 x10^3/uL (0.0-1.1) Eosinophils # (Auto) 0.5 x10^3/uL (0.0-0.7) Basophils # (Auto) 0.1 x10^3/uL (0.0-0.2) Sodium Level 139 mmol/L (136-145) Potassium Level 2.8 mmol/L (3.5-5.1) Chloride Level 103 mmol/L (98-107) Carbon Dioxide Level 29 mmol/L (21-32) Anion Gap 7 (6-14) Blood Urea Nitrogen 35 mg/dL (8-26) Creatinine 1.8 mg/dL (0.7-1.3) Estimated GFR (Cockcroft-Gault) 37.5 BUN/Creatinine Ratio 19 (6-20) Glucose Level 99 mg/dL (70-99) Calcium Level 8.2 mg/dL (8.5-10.1) Total Bilirubin 0.6 mg/dL (0.2-1.0) Aspartate Amino Transf (AST/SGOT) 30 U/L (15-37) Alanine Aminotransferase (ALT/SGPT) 18 U/L (16-63) Alkaline Phosphatase 106 U/L (46-116) Total Protein 5.7 g/dL (6.4-8.2) Albumin 1.6 g/dL (3.4-5.0) Albumin/Globulin Ratio 0.4 (1.0-1.7) Glucose (Fingerstick) 106 mg/dL (70-99) Micro Microbiology 03/23/18 Blood Culture - Preliminary, Resulted NO GROWTH AFTER 1 DAY Objective Assessment 1. Nonhealing diabetic ulcer of right heel, boggy. 2. History of methicillin-resistant Staphylococcus aureus. 3. Leukocytosis. 4. Renal insufficiency. 5. Diabetic ulcer, left heel. 6. Peripheral vascular disease. 7. Diabetes with peripheral neuropathy. 8. Chronic lymphedema and stasis changes in lower extremities bilaterally. 9. Morbid obesity with a body mass index of 43. 10. Atrial fibrillation. Plan Plan of Care Dapto given renal function Cont Zosyn BC NGTD Monitor for toxicities Arterial studies pending Local wound care and offloading Followed by vascular - OR debridement in heel today Would to have intra-op cultures D/w MIKE LOVE MD Mar 26, 2018 08:28
[2018-03-26] MEDS: hydroCHLOROthiazide 25 MG TABLET PO SCH (08:54)
[2018-03-26] MEDS: amLODIPine BESYLATE 10 MG TABLET PO SCH (08:54)
[2018-03-26] MEDS: POTASSIUM CHLORIDE 20 MEQ TABLET.ER. PO SCH (08:54)
[2018-03-26] MEDS: FUROSEMIDE 40 MG/4 ML VIAL. IVP SCH (08:57)
[2018-03-26] MEDS: OMEGA-3 FATTY ACIDS/FISH OIL 1,000 MG CAPSULE. PO SCH ×2 (08:58→21:10)
[2018-03-26] MEDS: DOCUSATE SODIUM 100 MG CAPSULE. PO SCH ×2 (08:58→21:10)
[2018-03-26] MEDS: ALLOPURINOL 100 MG TABLET. PO SCH (08:58)
[2018-03-26] MEDS: LACTOBACILLUS RHAMNOSUS GG 1 CAPSULE. PO SCH ×2 (08:58→21:09)
[2018-03-26] MEDS ORDERED: SURGICEL FIBRILLAR 1X2 EACH. ONE (12:29)
[2018-03-26] MEDS ORDERED: LIDOCAINE 1% PF 30 ML VIAL. ONE (12:29)
[2018-03-26] MEDS ORDERED: PROPOFOL 40 ML IV ONE (13:34)
[2018-03-26] MEDS ORDERED: KETAMINE HCL 500 MG/10 ML VIAL. ONE (13:34)
--- NOTE | 2018-03-26 14:36 | PDOC4 ---
Operative Note Operative Note Operative Report Dictated Pre-op: bilateral heel wounds with necrotic tissue Post-op: bilateral heel necrotic wounds, right right heel debridement was down to the bone Surgery: Sharp excisional debridement of the bilateral heel wounds Surgeon: Dr. Bowens Anesthesia: monitored sedation Blood loss: minimal GRECIA BOWENS MD Mar 26, 2018 14:36
--- NOTE | 2018-03-26 15:11 | PDOC ---
PROGRESS NOTES Chief Complaint Chief Complaint 1. Nonhealing diabetic ulcer of right heel, boggy. 2. History of methicillin-resistant Staphylococcus aureus. 3. Leukocytosis. 4. Renal insufficiency. 5. Diabetic ulcer, left heel. 6. Peripheral vascular disease. 7. Diabetes with peripheral neuropathy. 8. Chronic lymphedema and stasis changes in lower extremities bilaterally. 9. obesity BMI 43. History of Present Illness History of Present Illness Dapto per ID, pos MRSA screen Vasc surg to OR in the AM, debridement in heel Local wound care and offloading Pt and OT when able discused. current plan of action Vitals Vitals Vital Signs Date Time Temp Pulse Resp B/P (MAP) Pulse Ox O2 Delivery O2 Flow Rate FiO2 03/26/18 15:01 97.5 111 15 132/62 94 Room Air 97.5 03/26/18 14:46 2 Physical Exam Physical Exam GENERAL: Sitting in the recliner, legs elevated, relaxed appearance HEENT: Pupils equally round. Normal conjunctivae. Oral mucosa is pink and moist. NECK: Supple. LUNGS: Clear to auscultation bilaterally. HEART: S1 and S2. ABDOMEN: Obese. Bowel sounds active. Soft, nontender. EXTREMITIES: He has 3-4+ pitting edema in lower extremities bilaterally with chronic stasis changes. The ulcer of left heel looks clean with granulating tissue. The ulcer of right heel is much larger, boggy with some areas of necrotic tissue, some drainage and surrounding erythema. Distal pedis pulses difficult to palpate. SKIN: Warm without rash. NEUROLOGIC: Alert and oriented x 3. General: Alert, Oriented X3, Cooperative, No acute distress Heart: Regular rate, Normal S1, Normal S2 Lungs: Clear, Other Abdomen: Normal bowel sounds, Soft, No tenderness, No hepatosplenomegaly, No masses Extremities: No clubbing, Other (has bilateral lymphedema, wounds appear red, redness on the bilateral shins with some oozing and weeping. Bilateral heel wounds, left looks great but the right has some granulation tissue with eschar formation on the heel) Skin: No rashes, Other Labs LABS Laboratory Tests Test 03/25/18 15:58 03/25/18 18:43 03/25/18 20:32 03/26/18 04:00 Glucose (Fingerstick) 67 mg/dL (70-99) 121 mg/dL (70-99) 122 mg/dL (70-99) White Blood Count 9.6 x10^3/uL (4.0-11.0) Red Blood Count 3.18 x10^6/uL (4.30-5.70) Hemoglobin 10.4 g/dL (13.0-17.5) Hematocrit 30.0 % (39.0-53.0) Mean Corpuscular Volume 94 fL (79-100) Mean Corpuscular Hemoglobin 33 pg (25-35) Mean Corpuscular Hemoglobin Concent 35 g/dL (31-37) Red Cell Distribution Width 15.6 % (11.5-14.5) Platelet Count 243 x10^3/uL (140-400) Neutrophils (%) (Auto) 45 % (31-73) Lymphocytes (%) (Auto) 36 % (24-48) Monocytes (%) (Auto) 12 % (0-9) Eosinophils (%) (Auto) 5 % (0-3) Basophils (%) (Auto) 1 % (0-3) Neutrophils # (Auto) 4.4 x10^3uL (1.8-7.7) Lymphocytes # (Auto) 3.5 x10^3/uL (1.0-4.8) Monocytes # (Auto) 1.1 x10^3/uL (0.0-1.1) Eosinophils # (Auto) 0.5 x10^3/uL (0.0-0.7) Basophils # (Auto) 0.1 x10^3/uL (0.0-0.2) Sodium Level 139 mmol/L (136-145) Potassium Level 2.8 mmol/L (3.5-5.1) Chloride Level 103 mmol/L (98-107) Carbon Dioxide Level 29 mmol/L (21-32) Anion Gap 7 (6-14) Blood Urea Nitrogen 35 mg/dL (8-26) Creatinine 1.8 mg/dL (0.7-1.3) Estimated GFR (Cockcroft-Gault) 37.5 BUN/Creatinine Ratio 19 (6-20) Glucose Level 99 mg/dL (70-99) Calcium Level 8.2 mg/dL (8.5-10.1) Total Bilirubin 0.6 mg/dL (0.2-1.0) Aspartate Amino Transf (AST/SGOT) 30 U/L (15-37) Alanine Aminotransferase (ALT/SGPT) 18 U/L (16-63) Alkaline Phosphatase 106 U/L (46-116) Total Protein 5.7 g/dL (6.4-8.2) Albumin 1.6 g/dL (3.4-5.0) Albumin/Globulin Ratio 0.4 (1.0-1.7) Test 03/26/18 07:14 03/26/18 11:54 03/26/18 14:40 Glucose (Fingerstick) 106 mg/dL (70-99) 129 mg/dL (70-99) 126 mg/dL (70-99) Assessment and Plan Assessmemt and Plan Problems Medical Problems: (1) Abscess or cellulitis of ankle Status: Acute (2) Abscess or cellulitis of ankle Status: Acute (3) Diabetes Status: Acute (4) Diabetes Status: Acute (5) PVD (peripheral vascular disease) Status: Acute (6) PVD (peripheral vascular disease) Status: Acute Comment Review of Relevant I have reviewed the following items mara (where applicable) has been applied. Labs Laboratory Tests Test 03/24/18 16:22 03/24/18 20:21 03/25/18 07:44 03/25/18 11:04 Glucose (Fingerstick) 158 mg/dL (70-99) 144 mg/dL (70-99) 114 mg/dL (70-99) 150 mg/dL (70-99) Test 03/25/18 15:58 03/25/18 18:43 03/25/18 20:32 03/26/18 04:00 Glucose (Fingerstick) 67 mg/dL (70-99) 121 mg/dL (70-99) 122 mg/dL (70-99) White Blood Count 9.6 x10^3/uL (4.0-11.0) Red Blood Count 3.18 x10^6/uL (4.30-5.70) Hemoglobin 10.4 g/dL (13.0-17.5) Hematocrit 30.0 % (39.0-53.0) Mean Corpuscular Volume 94 fL (79-100) Mean Corpuscular Hemoglobin 33 pg (25-35) Mean Corpuscular Hemoglobin Concent 35 g/dL (31-37) Red Cell Distribution Width 15.6 % (11.5-14.5) Platelet Count 243 x10^3/uL (140-400) Neutrophils (%) (Auto) 45 % (31-73) Lymphocytes (%) (Auto) 36 % (24-48) Monocytes (%) (Auto) 12 % (0-9) Eosinophils (%) (Auto) 5 % (0-3) Basophils (%) (Auto) 1 % (0-3) Neutrophils # (Auto) 4.4 x10^3uL (1.8-7.7) Lymphocytes # (Auto) 3.5 x10^3/uL (1.0-4.8) Monocytes # (Auto) 1.1 x10^3/uL (0.0-1.1) Eosinophils # (Auto) 0.5 x10^3/uL (0.0-0.7) Basophils # (Auto) 0.1 x10^3/uL (0.0-0.2) Sodium Level 139 mmol/L (136-145) Potassium Level 2.8 mmol/L (3.5-5.1) Chloride Level 103 mmol/L (98-107) Carbon Dioxide Level 29 mmol/L (21-32) Anion Gap 7 (6-14) Blood Urea Nitrogen 35 mg/dL (8-26) Creatinine 1.8 mg/dL (0.7-1.3) Estimated GFR (Cockcroft-Gault) 37.5 BUN/Creatinine Ratio 19 (6-20) Glucose Level 99 mg/dL (70-99) Calcium Level 8.2 mg/dL (8.5-10.1) Total Bilirubin 0.6 mg/dL (0.2-1.0) Aspartate Amino Transf (AST/SGOT) 30 U/L (15-37) Alanine Aminotransferase (ALT/SGPT) 18 U/L (16-63) Alkaline Phosphatase 106 U/L (46-116) Total Protein 5.7 g/dL (6.4-8.2) Albumin 1.6 g/dL (3.4-5.0) Albumin/Globulin Ratio 0.4 (1.0-1.7) Test 03/26/18 07:14 03/26/18 11:54 03/26/18 14:40 Glucose (Fingerstick) 106 mg/dL (70-99) 129 mg/dL (70-99) 126 mg/dL (70-99) Laboratory Tests Test 03/25/18 15:58 03/25/18 18:43 03/25/18 20:32 03/26/18 04:00 Glucose (Fingerstick) 67 mg/dL (70-99) 121 mg/dL (70-99) 122 mg/dL (70-99) White Blood Count 9.6 x10^3/uL (4.0-11.0) Red Blood Count 3.18 x10^6/uL (4.30-5.70) Hemoglobin 10.4 g/dL (13.0-17.5) Hematocrit 30.0 % (39.0-53.0) Mean Corpuscular Volume 94 fL (79-100) Mean Corpuscular Hemoglobin 33 pg (25-35) Mean Corpuscular Hemoglobin Concent 35 g/dL (31-37) Red Cell Distribution Width 15.6 % (11.5-14.5) Platelet Count 243 x10^3/uL (140-400) Neutrophils (%) (Auto) 45 % (31-73) Lymphocytes (%) (Auto) 36 % (24-48) Monocytes (%) (Auto) 12 % (0-9) Eosinophils (%) (Auto) 5 % (0-3) Basophils (%) (Auto) 1 % (0-3) Neutrophils # (Auto) 4.4 x10^3uL (1.8-7.7) Lymphocytes # (Auto) 3.5 x10^3/uL (1.0-4.8) Monocytes # (Auto) 1.1 x10^3/uL (0.0-1.1) Eosinophils # (Auto) 0.5 x10^3/uL (0.0-0.7) Basophils # (Auto) 0.1 x10^3/uL (0.0-0.2) Sodium Level 139 mmol/L (136-145) Potassium Level 2.8 mmol/L (3.5-5.1) Chloride Level 103 mmol/L (98-107) Carbon Dioxide Level 29 mmol/L (21-32) Anion Gap 7 (6-14) Blood Urea Nitrogen 35 mg/dL (8-26) Creatinine 1.8 mg/dL (0.7-1.3) Estimated GFR (Cockcroft-Gault) 37.5 BUN/Creatinine Ratio 19 (6-20) Glucose Level 99 mg/dL (70-99) Calcium Level 8.2 mg/dL (8.5-10.1) Total Bilirubin 0.6 mg/dL (0.2-1.0) Aspartate Amino Transf (AST/SGOT) 30 U/L (15-37) Alanine Aminotransferase (ALT/SGPT) 18 U/L (16-63) Alkaline Phosphatase 106 U/L (46-116) Total Protein 5.7 g/dL (6.4-8.2) Albumin 1.6 g/dL (3.4-5.0) Albumin/Globulin Ratio 0.4 (1.0-1.7) Test 03/26/18 07:14 03/26/18 11:54 03/26/18 14:40 Glucose (Fingerstick) 106 mg/dL (70-99) 129 mg/dL (70-99) 126 mg/dL (70-99) Microbiology 03/23/18 Blood Culture - Preliminary, Resulted NO GROWTH AFTER 3 DAYS Medications Current Medications Ondansetron HCl (Zofran) 4 mg PRN Q6HRS PRN IV NAUSEA/VOMITING 1ST CHOICER Last administered on 03/22/18at 16:42; Start 03/22/18 at 16:15 Prochlorperazine Edisylate (Compazine) 10 mg PRN Q6HRS PRN IV NAUSEA/VOMITING 2ND CHOICE; Start 03/22/18 at 16:15 Al Hydroxide/Mg Hydroxide (Mylanta Plus Xs) 30 ml PRN Q3HRS PRN PO HEARTBURN / GAS; Start 03/22/18 at 16:15 Calcium Carbonate/ Glycine (Tums) 500 mg PRN Q3HRS PRN PO UPSET STOMACH; Start 03/22/18 at 16:15 Oxycodone HCl (Roxicodone) 5 mg PRN Q3HRS PRN PO PAIN; Start 03/22/18 at 16:15 Morphine Sulfate (Morphine Sulfate) 2 mg PRN Q2HR PRN IV PAIN; Start 03/22/18 at 16:15 Acetaminophen (Tylenol) 650 mg PRN Q6HRS PRN PO Headaches, Temp > 101.5F; Start 03/22/18 at 16:15 Docusate Sodium (Colace) 100 mg BID PO Last administered on 03/25/18at 21:12; Start 03/22/18 at 21:00 Magnesium Hydroxide (Milk Of Magnesia) 2,400 mg PRN Q12HR PRN PO CONSTIPATION; Start 03/22/18 at 16:15 Bisacodyl (Dulcolax Supp) 10 mg PRN DAILY PRN [place] CONSTIPATION; Start 03/22/18 at 16:15 Insulin Human Lispro (HumaLOG) 0-9 UNITS TIDWMEALS SQ Last administered on 03/22at 22:41; Start 03/22/18 at 17:00 Dextrose (Dextrose 50%-Water Syringe) 12.5 gm PRN Q15MIN PRN IV SEE COMMENTS Last administered on 03/23/18at 02:48; Start 03/22/18 at 16:15 Furosemide (Lasix) 40 mg DAILY IVP Last administered on 03/26/18at 08:57; Start 03/23/18 at 09:00 Furosemide (Lasix) 40 mg 1X ONCE IVP Last administered on 03/22/18at 16:54; Start 03/22/18 at 16:15; Stop 03/22/18 at 16:32; Status DC Allopurinol (Zyloprim) 100 mg DAILY PO Last administered on 03/25/18at 11:56; Start 03/23/18 at 09:00 Amlodipine Besylate (Norvasc) 10 mg DAILY PO Last administered on 03/26/18at 08: 54; Start 03/23/18 at 09:00 Atorvastatin Calcium (Lipitor) 40 mg HS PO Last administered on 03/25/18at 21:12 ; Start 03/22/18 at 21:00 Clonidine HCl (Catapres) 0.1 mg TID PO ; Start 03/22/18 at 16:45; Stop 03/24/18 at 19:47; Status DC Insulin Human Lispro (HumaLOG) 25 units TIDWMEALS SQ Last administered on at 12:00; Start 03/22/18 at 18:00 Fish Oil (Fish Oil) 1,000 mg BID PO Last administered on 03/25/18at 21:12; Start 03/22/18 at 21:00 Hydralazine HCl (Apresoline) 100 mg TID PO Last administered on 03/23/18at 21:18 ; Start 03/22/18 at 21:00; Stop 03/24/18 at 19:47; Status DC Insulin Glargine (Lantus) 44 units HS SQ Last administered on 03/22/18at 22:42; Start 03/22/18 at 21:00 Losartan Potassium (Cozaar) 100 mg DAILY PO Last administered on 03/23/18at 10: 23; Start 03/23/18 at 09:00; Stop 03/24/18 at 19:47; Status DC Potassium Chloride (Klor-Con) 20 meq DAILYWBKFT PO Last administered on at 08:54; Start 03/23/18 at 08:00 Vancomycin HCl (Vanco Per Pharmacy) 1 each PRN DAILY PRN MC SEE COMMENTS Last administered on 03/23/18at 01:02; Start 03/22/18 at 16:15; Stop 03/23/18 at 12:22 ; Status DC Piperacillin Sod/ Tazobactam Sod (Zosyn Per Pharmacy) 1 each PRN DAILY PRN MC SEE COMMENTS; Start 03/22/18 at 16:15 Sodium Chloride 1,000 ml @ 1,000 mls/hr 1X ONCE IV Last administered on at 16:41; Start 03/22/18 at 16:30; Stop 03/22/18 at 17:29; Status DC Ceftriaxone Sodium 50 ml @ 100 mls/hr 1X ONCE IV Last administered on at 16:41; Start 03/22/18 at 16:30; Stop 03/22/18 at 16:59; Status DC Vancomycin HCl 2 gm/Sodium Chloride 500 ml @ 250 mls/hr 1X ONCE IV Last administered on 03/22/18at 22:16; Start 03/22/18 at 17:00; Stop 03/22/18 at 18:59 ; Status DC Piperacillin Sod/ Tazobactam Sod 3.375 gm/Sodium Chloride 50 ml @ 100 mls/hr 1X ONCE IV Last administered on 03/22/18at 18:01; Start 03/22/18 at 16:45; Stop 03/22/18 at 17:14; Status DC Hydrochlorothiazide (Hydrodiuril) 25 mg DAILY PO Last administered on at 08:54; Start 03/23/18 at 09:00 Piperacillin Sod/ Tazobactam Sod 3.375 gm/Sodium Chloride 50 ml @ 100 mls/hr Q6HRS IV Last administered on 03/26/18at 11:26; Start 03/23/18 at 00:00 Vancomycin HCl 2 gm/Sodium Chloride 500 ml @ 250 mls/hr Q24H IV ; Start at 22:00; Stop 03/23/18 at 22:00; Status DC Vancomycin HCl (Vancomycin Trough Level) 1 each 1X ONCE MC ; Start 03/24/18 at 21:30; Stop 03/24/18 at 21:30; Status DC Daptomycin 500 mg/ Sodium Chloride 50 ml @ 100 mls/hr Q24H IV Last administered on 03/26/18at 12:54; Start 03/23/18 at 13:00 Lactobacillus Rhamnosus (Culturelle) 1 cap BID PO Last administered on at 21:12; Start 03/23/18 at 21:00 Prochlorperazine Edisylate (Compazine) 5 mg PACU PRN PRN IV NAUSEA, MRX1; Start 03/26/18 at 07:00; Stop 03/27/18 at 06:59 Hydromorphone HCl (Dilaudid) 0.5 mg PRN Q10MIN PRN IV SEV PAIN, Second choice; Start 03/26/18 at 07:00; Stop 03/27/18 at 06:59 Lidocaine HCl (Xylocaine-Mpf 1% 2ml Vial) 2 ml PRN 1X PRN ID IV START; Start at 07:00; Stop 03/27/18 at 06:59 Ringer's Solution 1,000 ml @ 30 mls/hr Q24H IV ; Start 03/26/18 at 07:00; Stop 03/26/18 at 18:59 Morphine Sulfate (Morphine Sulfate) 1 mg PRN Q10MIN PRN IV SEVERE PAIN; Start 03/26/18 at 07:00; Stop 03/27/18 at 06:59 Fentanyl Citrate (Fentanyl 2ml Vial) 50 mcg PRN Q5MIN PRN IV MODERATE TO SEVERE PAIN; Start 03/26/18 at 07:00; Stop 03/27/18 at 06:59 Fentanyl Citrate (Fentanyl 2ml Vial) 25 mcg PRN Q5MIN PRN IV MILD PAIN; Start 03/26/18 at 07:00; Stop 03/27/18 at 06:59 Ondansetron HCl (Zofran) 4 mg PRN Q6HRS PRN IV NAUSEA/VOMITING; Start 03/26/18 at 07:00; Stop 03/27/18 at 06:59 Sodium Chloride 1,000 ml @ 1,000 mls/hr 1X ONCE IV Last administered on at 21:12; Start 03/25/18 at 21:00; Stop 03/25/18 at 21:59; Status DC Potassium Chloride (Klor-Con) 40 meq 1X ONCE PO Last administered on at 05:59; Start 03/26/18 at 06:00; Stop 03/26/18 at 06:01; Status DC Potassium Chloride (Klor-Con) 40 meq 1X ONCE PO ; Start 03/26/18 at 12:00; Stop 03/26/18 at 12:23; Status DC Cellulose (Surgicel Fibrillar 1x2) 1 each STK-MED ONCE .ROUTE ; Start 03/26/18 at 12:29; Stop 03/26/18 at 13:29; Status DC Lidocaine HCl (Xylocaine 1% Pf 30ml Vial) 30 ml STK-MED ONCE .ROUTE ; Start at 12:29; Stop 03/26/18 at 13:30; Status DC Cefazolin Sodium/ Dextrose 0 ml @ As Directed STK-MED ONCE IV ; Start 03/26/18 at 12:32; Stop 03/26/18 at 13:32; Status DC Propofol 40 ml @ As Directed STK-MED ONCE IV ; Start 03/26/18 at 13:34; Stop at 13:35; Status DC Cefazolin Sodium 50 ml @ As Directed STK-MED ONCE IV ; Start 03/26/18 at 12:34; Stop 03/26/18 at 13:35; Status DC Ketamine HCl 500 mg STK-MED ONCE .ROUTE ; Start 03/26/18 at 13:34; Stop at 13:35; Status DC Active Scripts Active Reported Fish Oil 1,000 Mg Capsule ([place]-3 Fatty Acids/Fish Oil) 1 Each Capsule 1 Each PO DAILY Vemlidy (Tenofovir Alafenamide Fumarate) 25 Mg Tablet 25 Mg PO DAILY Metolazone 2.5 Mg Tablet 2.5 Mg PO DAILY Doxycycline Hyclate 100 Mg Tablet 2 Tab PO BID Amoxicillin 500 Mg Capsule 500 Mg PO QID Hydralazine Hcl 100 Mg Tablet 50 Mg PO TID Potassium Chloride 20 Meq Tablet.er 20 Meq PO BID Lantus (Insulin Glargine,Hum.rec.anlog) 100 Unit/1 Ml Vial 50 Unit SQ HS Aspirin 325 Mg Tablet 325 Mg PO DAILY Atorvastatin Calcium 40 Mg Tablet 40 Mg PO HS Losartan-Hctz 100-25 Mg Tab (Losartan/Hydrochlorothiazide) 1 Each Tablet 1 Each PO DAILY Allopurinol 100 Mg Tablet 100 Mg PO DAILY Amlodipine Besylate 10 Mg Tablet 5 Mg PO DAILY Furosemide 40 Mg Tablet 80 Mg PO BID Humalog (Insulin Lispro) 100 Unit/1 Ml Insuln.pen 25 Unit SQ TID Vitals/I & O Vital Sign - Last 24 Hours 03/25/18 03/25/18 03/25/18 03/26/18 19:00 20:15 22:38 02:40 Temp 98.2 99.3 99.9 98.2 99.3 99.9 Pulse 111 118 111 Resp 18 B/P (MAP) 124/70 (88) 130/75 (93) 125/69 (87) Pulse Ox 95 90 94 O2 Delivery Room Air Room Air Room Air Room Air 03/26/18 03/26/18 03/26/18 03/26/18 07:15 08:54 11:18 13:16 Temp 97.3 98.8 98 97.3 98.8 98.0 Pulse 108 108 11 126 Resp 22 B/P (MAP) 133/67 (89) 133/67 145/70 (95) 125/75 Pulse Ox 96 97 92 O2 Delivery Room Air Room Air Room Air 03/26/18 03/26/18 03/26/18 03/26/18 14:31 14:42 14:46 15:01 Temp 97.5 97.5 97.5 97.5 97.5 97.5 Pulse 126 115 111 Resp 15 15 15 B/P (MAP) 147/75 132/76 132/62 Pulse Ox 98 97 94 O2 Delivery Room Air Nasal Cannula Nasal Cannula Room Air Nasal Cannula O2 Flow Rate 2 2 2 Intake and Output 03/25/18 03/25/18 03/26/18 15:00 23:00 07:00 Intake Total 540 ml 2900 ml Output Total 800 ml Balance 540 ml 2100 ml CINDI PERKINS MD Mar 26, 2018 15:10
--- NOTE | 2018-03-26 15:51 | OP ---
DATE OF SURGERY: 03/26/2018 SURGEON: Tomasa Bowens M.D. ANESTHESIA USED: Monitored sedation. PREOPERATIVE DIAGNOSIS: Bilateral heel ulcers with necrotic tissue throughout the wound beds. POSTOPERATIVE DIAGNOSIS: Bilateral heel ulcers with necrotic tissue throughout the wound beds. OPERATION PERFORMED: 1. Right heel sharp excisional debridement removing necrotic skin and subcutaneous tissue for a total debridement measurement of approximately 8 cm in length x 6 cm in width x 2 cm in depth 2. Left heel sharp excisional debridement removing necrotic skin and subcutaneous tissue for a total measurement of approximately 4 cm in length x 4 cm in width x superficial in depth. BLOOD LOSS: Minimal. INDICATION: The patient is a 72-year-old male with a history of diabetes mellitus and peripheral neuropathy along with morbid obesity who has developed large bilateral heel ulcers directly on the plantar surface of his foot. There is necrotic tissue throughout the wound beds worse in the right heel compared to the left heel. He was seen in consultation by Dr. Lo who recommended surgical debridement of the wounds. Informed consent was obtained from the patient and his family. DESCRIPTION OF PROCEDURE: The patient was brought to the operating room and placed on table in supine position. He received monitored sedation throughout the case by the anesthesiologist. His bilateral feet and ankles were prepped and draped in normal sterile fashion. Lidocaine was used to anesthetize the skin and subcutaneous tissue of the surgical site. The right heel, I sharply excised necrotic skin around the wound edges and subcutaneous tissue throughout the wound bed. This had significant necrotic tissue within the center of the wound, which had underlying fluid collection. This was debrided. The fluid was clear, but it did debride down to the bone before all the necrotic tissue was gone. There was good bleeding throughout the wound bed with debridement, which was controlled with electrocautery. The left heel wound, I sharply excised necrotic subcutaneous tissue and small amount of skin throughout the wound bed. This was not deep wound. It did not go deep down to the bone. I irrigated both wounds with antibiotic solution. We placed Aquacel gauze over each wound. ABD pads, Kerlix wraps and Toni bandages. He tolerated this procedure with no immediate complication. TOMASA BOWENS MD DR: PURVI/aline JOB#: [id number] / [id number]
[2018-03-26] MEDS: ATORVASTATIN CALCIUM 40 MG TABLET. PO SCH (21:10)
[2018-03-26] MEDS: INSULIN GLARGINE 300 UNITS/3 ML INSULN.PEN. SQ SCH (21:40)
[2018-03-27 03:17] VITALS: BP 125/64
[2018-03-27] MEDS: PIPERACILLIN/TAZOBACTAM 3.375 GM in IV NORMAL SALINE 50ML 50 ML IV SCH ×3 (05:33→17:28)
[2018-03-27 07:00] VITALS: BP 141/67
[2018-03-27 07:21] LABS: BASO # 0.1 x10^3/uL (0.0-0.2); BASO % 1 % (0-3); EOS # 0.3 x10^3/uL (0.0-0.7); EOS % 3 % (0-3); HEMATOCRIT 31.6 % (39.0-53.0); HEMOGLOBIN 10.8 g/dL (13.0-17.5); LYMPH # 3.3 x10^3/uL (1.0-4.8); LYMPH % 28 % (24-48); MEAN CORPUSCULAR HEMOGLOBIN 32 pg (25-35); MEAN CORPUSCULAR HGB CONC 34 g/dL (31-37); MEAN CORPUSCULAR VOLUME 95 fL (79-100); MONO # 1.2 x10^3/uL (0.0-1.1); MONO % 10 % (0-9); NEUT # 6.9 x10^3uL (1.8-7.7); NEUT % 59 % (31-73); PLATELET COUNT 290 x10^3/uL (140-400); RED BLOOD COUNT 3.35 x10^6/uL (4.30-5.70); RED CELL DISTRIBUTION WIDTH 15.7 % (11.5-14.5); WHITE BLOOD COUNT 11.9 x10^3/uL (4.0-11.0)
[2018-03-27 07:35] LABS: ALBUMIN 1.8 g/dL (3.4-5.0); ALBUMIN/GLOBULIN RATIO 0.4 (1.0-1.7); CALCIUM 8.4 mg/dL (8.5-10.1); CREATININE 2.2 mg/dL (0.7-1.3); GFR 29.7; POTASSIUM 3.2 mmol/L (3.5-5.1); TOTAL BILIRUBIN 0.7 mg/dL (0.2-1.0); TOTAL PROTEIN 6.6 g/dL (6.4-8.2)
--- NOTE | 2018-03-27 08:42 | PDOC ---
Infectious Disease Note Subjective Subjective Comfortable, no pain Appetite so-so Denies F/C/S/aches/N/V/D/SOA Vital Sign Vital Signs Vital Signs Date Time Temp Pulse Resp B/P (MAP) Pulse Ox O2 Delivery O2 Flow Rate FiO2 03/27/18 03:17 98.7 124 18 125/64 (84) 92 Nasal Cannula 2.0 98.7 Physical Exam PHYSICAL EXAM GENERAL: Sitting in the recliner, legs elevated, relaxed appearance HEENT: Pupils equally round. Normal conjunctivae. Oral mucosa is pink and moist. NECK: Supple. LUNGS: Clear to auscultation bilaterally. HEART: S1 and S2. ABDOMEN: Obese. Bowel sounds active. Soft, nontender. EXTREMITIES: He has 3-4+ pitting edema in lower extremities bilaterally with chronic stasis changes. aries heel post surgical dressing not opened SKIN: Warm without rash. NEUROLOGIC: Alert and oriented x 3. Labs Lab Laboratory Tests Test 03/26/18 11:54 03/26/18 14:40 03/26/18 16:49 03/26/18 21:15 Glucose (Fingerstick) 129 mg/dL (70-99) 126 mg/dL (70-99) 117 mg/dL (70-99) 213 mg/dL (70-99) Test 03/27/18 03:02 03/27/18 05:58 03/27/18 08:04 Glucose (Fingerstick) 174 mg/dL (70-99) 158 mg/dL (70-99) White Blood Count 11.9 x10^3/uL (4.0-11.0) Red Blood Count 3.35 x10^6/uL (4.30-5.70) Hemoglobin 10.8 g/dL (13.0-17.5) Hematocrit 31.6 % (39.0-53.0) Mean Corpuscular Volume 95 fL (79-100) Mean Corpuscular Hemoglobin 32 pg (25-35) Mean Corpuscular Hemoglobin Concent 34 g/dL (31-37) Red Cell Distribution Width 15.7 % (11.5-14.5) Platelet Count 290 x10^3/uL (140-400) Neutrophils (%) (Auto) 59 % (31-73) Lymphocytes (%) (Auto) 28 % (24-48) Monocytes (%) (Auto) 10 % (0-9) Eosinophils (%) (Auto) 3 % (0-3) Basophils (%) (Auto) 1 % (0-3) Neutrophils # (Auto) 6.9 x10^3uL (1.8-7.7) Lymphocytes # (Auto) 3.3 x10^3/uL (1.0-4.8) Monocytes # (Auto) 1.2 x10^3/uL (0.0-1.1) Eosinophils # (Auto) 0.3 x10^3/uL (0.0-0.7) Basophils # (Auto) 0.1 x10^3/uL (0.0-0.2) Sodium Level 138 mmol/L (136-145) Potassium Level 3.2 mmol/L (3.5-5.1) Chloride Level 102 mmol/L (98-107) Carbon Dioxide Level 27 mmol/L (21-32) Anion Gap 9 (6-14) Blood Urea Nitrogen 38 mg/dL (8-26) Creatinine 2.2 mg/dL (0.7-1.3) Estimated GFR (Cockcroft-Gault) 29.7 BUN/Creatinine Ratio 17 (6-20) Glucose Level 170 mg/dL (70-99) Calcium Level 8.4 mg/dL (8.5-10.1) Total Bilirubin 0.7 mg/dL (0.2-1.0) Aspartate Amino Transf (AST/SGOT) 35 U/L (15-37) Alanine Aminotransferase (ALT/SGPT) 19 U/L (16-63) Alkaline Phosphatase 109 U/L (46-116) Total Protein 6.6 g/dL (6.4-8.2) Albumin 1.8 g/dL (3.4-5.0) Albumin/Globulin Ratio 0.4 (1.0-1.7) Micro Microbiology 03/23/18 Blood Culture - Preliminary, Resulted NO GROWTH AFTER 1 DAY Objective Assessment 1. Nonhealing diabetic ulcer of right heel, boggy. s/p I and D on 03/26/18 2. History of methicillin-resistant Staphylococcus aureus. 3. Leukocytosis. 4. Renal insufficiency. 5. Diabetic ulcer, left heel. 6. Peripheral vascular disease. 7. Diabetes with peripheral neuropathy. 8. Chronic lymphedema and stasis changes in lower extremities bilaterally. 9. Morbid obesity with a body mass index of 43. 10. Atrial fibrillation. Plan Plan of Care Dapto given renal function Cont Zosyn BC NGTD Monitor for toxicities Arterial studies pending Local wound care and offloading intra-op cultures pending D/w MIKE LOVE MD Mar 27, 2018 08:42
[2018-03-27] MEDS: POTASSIUM CHLORIDE 20 MEQ TABLET.ER. PO SCH (09:16)
[2018-03-27] MEDS: FUROSEMIDE 40 MG/4 ML VIAL. IVP SCH (09:16)
[2018-03-27] MEDS: hydroCHLOROthiazide 25 MG TABLET PO SCH (09:17)
[2018-03-27] MEDS: LACTOBACILLUS RHAMNOSUS GG 1 CAPSULE. PO SCH ×2 (09:17→20:48)
[2018-03-27] MEDS: DOCUSATE SODIUM 100 MG CAPSULE. PO SCH ×2 (09:17→20:48)
[2018-03-27] MEDS: OMEGA-3 FATTY ACIDS/FISH OIL 1,000 MG CAPSULE. PO SCH ×2 (09:17→20:50)
[2018-03-27] MEDS: ALLOPURINOL 100 MG TABLET. PO SCH (09:17)
[2018-03-27] MEDS: amLODIPine BESYLATE 10 MG TABLET PO SCH (09:18)
[2018-03-27] MEDS: INSULIN LISPRO 300 UNITS/3 ML INSULN.PEN. SQ SCH ×6 (09:28→17:00)
[2018-03-27 11:00] VITALS: BP 144/85
--- NOTE | 2018-03-27 12:39 | PDOC ---
PROGRESS NOTES Chief Complaint Chief Complaint 1. Nonhealing diabetic ulcer of right heel, boggy. 2. History of methicillin-resistant Staphylococcus aureus. 3. Leukocytosis. 4. Renal insufficiency. 5. Diabetic ulcer, left heel. 6. Peripheral vascular disease. 7. Diabetes with peripheral neuropathy. 8. Chronic lymphedema and stasis changes in lower extremities bilaterally. 9. obesity BMI 43. History of Present Illness History of Present Illness Dapto per ID, pos MRSA screen Vasc surg went well yesterday, wound vac to be placed today, NWB, timeline tbd Local wound care and offloading Pt and OT when able discused. current plan of action Vitals Vitals Vital Signs Date Time Temp Pulse Resp B/P (MAP) Pulse Ox O2 Delivery O2 Flow Rate FiO2 03/27/18 11:00 98.3 121 18 144/85 (104) 91 Nasal Cannula 2.0 98.3 Physical Exam Physical Exam GENERAL: Sitting in the recliner, legs elevated, relaxed appearance HEENT: Pupils equally round. Normal conjunctivae. Oral mucosa is pink and moist. NECK: Supple. LUNGS: Clear to auscultation bilaterally. HEART: S1 and S2. ABDOMEN: Obese. Bowel sounds active. Soft, nontender. EXTREMITIES: He has 3-4+ pitting edema in lower extremities bilaterally with chronic stasis changes. aries heel post surgical dressing not opened SKIN: Warm without rash. NEUROLOGIC: Alert and oriented x 3. General: Alert, Oriented X3, Cooperative, No acute distress Heart: Regular rate, Normal S1, Normal S2 Lungs: Clear, Other Abdomen: Normal bowel sounds, Soft, No tenderness, No hepatosplenomegaly, No masses Extremities: No clubbing, Other (has bilateral lymphedema, wounds appear red, redness on the bilateral shins with some oozing and weeping. Bilateral heel wounds, left looks great but the right has some granulation tissue with eschar formation on the heel) Skin: No rashes, Other Labs LABS Laboratory Tests Test 03/26/18 14:40 03/26/18 16:49 03/26/18 21:15 03/27/18 03:02 Glucose (Fingerstick) 126 mg/dL (70-99) 117 mg/dL (70-99) 213 mg/dL (70-99) 174 mg/dL (70-99) Test 03/27/18 05:58 03/27/18 08:04 White Blood Count 11.9 x10^3/uL (4.0-11.0) Red Blood Count 3.35 x10^6/uL (4.30-5.70) Hemoglobin 10.8 g/dL (13.0-17.5) Hematocrit 31.6 % (39.0-53.0) Mean Corpuscular Volume 95 fL (79-100) Mean Corpuscular Hemoglobin 32 pg (25-35) Mean Corpuscular Hemoglobin Concent 34 g/dL (31-37) Red Cell Distribution Width 15.7 % (11.5-14.5) Platelet Count 290 x10^3/uL (140-400) Neutrophils (%) (Auto) 59 % (31-73) Lymphocytes (%) (Auto) 28 % (24-48) Monocytes (%) (Auto) 10 % (0-9) Eosinophils (%) (Auto) 3 % (0-3) Basophils (%) (Auto) 1 % (0-3) Neutrophils # (Auto) 6.9 x10^3uL (1.8-7.7) Lymphocytes # (Auto) 3.3 x10^3/uL (1.0-4.8) Monocytes # (Auto) 1.2 x10^3/uL (0.0-1.1) Eosinophils # (Auto) 0.3 x10^3/uL (0.0-0.7) Basophils # (Auto) 0.1 x10^3/uL (0.0-0.2) Sodium Level 138 mmol/L (136-145) Potassium Level 3.2 mmol/L (3.5-5.1) Chloride Level 102 mmol/L (98-107) Carbon Dioxide Level 27 mmol/L (21-32) Anion Gap 9 (6-14) Blood Urea Nitrogen 38 mg/dL (8-26) Creatinine 2.2 mg/dL (0.7-1.3) Estimated GFR (Cockcroft-Gault) 29.7 BUN/Creatinine Ratio 17 (6-20) Glucose Level 170 mg/dL (70-99) Calcium Level 8.4 mg/dL (8.5-10.1) Total Bilirubin 0.7 mg/dL (0.2-1.0) Aspartate Amino Transf (AST/SGOT) 35 U/L (15-37) Alanine Aminotransferase (ALT/SGPT) 19 U/L (16-63) Alkaline Phosphatase 109 U/L (46-116) Total Protein 6.6 g/dL (6.4-8.2) Albumin 1.8 g/dL (3.4-5.0) Albumin/Globulin Ratio 0.4 (1.0-1.7) Glucose (Fingerstick) 158 mg/dL (70-99) Assessment and Plan Assessmemt and Plan Problems Medical Problems: (1) Abscess or cellulitis of ankle Status: Acute (2) Abscess or cellulitis of ankle Status: Acute (3) Diabetes Status: Acute (4) Diabetes Status: Acute (5) PVD (peripheral vascular disease) Status: Acute (6) PVD (peripheral vascular disease) Status: Acute Comment Review of Relevant I have reviewed the following items mara (where applicable) has been applied. Labs Laboratory Tests Test 03/25/18 15:58 03/25/18 18:43 03/25/18 20:32 03/26/18 04:00 Glucose (Fingerstick) 67 mg/dL (70-99) 121 mg/dL (70-99) 122 mg/dL (70-99) White Blood Count 9.6 x10^3/uL (4.0-11.0) Red Blood Count 3.18 x10^6/uL (4.30-5.70) Hemoglobin 10.4 g/dL (13.0-17.5) Hematocrit 30.0 % (39.0-53.0) Mean Corpuscular Volume 94 fL (79-100) Mean Corpuscular Hemoglobin 33 pg (25-35) Mean Corpuscular Hemoglobin Concent 35 g/dL (31-37) Red Cell Distribution Width 15.6 % (11.5-14.5) Platelet Count 243 x10^3/uL (140-400) Neutrophils (%) (Auto) 45 % (31-73) Lymphocytes (%) (Auto) 36 % (24-48) Monocytes (%) (Auto) 12 % (0-9) Eosinophils (%) (Auto) 5 % (0-3) Basophils (%) (Auto) 1 % (0-3) Neutrophils # (Auto) 4.4 x10^3uL (1.8-7.7) Lymphocytes # (Auto) 3.5 x10^3/uL (1.0-4.8) Monocytes # (Auto) 1.1 x10^3/uL (0.0-1.1) Eosinophils # (Auto) 0.5 x10^3/uL (0.0-0.7) Basophils # (Auto) 0.1 x10^3/uL (0.0-0.2) Sodium Level 139 mmol/L (136-145) Potassium Level 2.8 mmol/L (3.5-5.1) Chloride Level 103 mmol/L (98-107) Carbon Dioxide Level 29 mmol/L (21-32) Anion Gap 7 (6-14) Blood Urea Nitrogen 35 mg/dL (8-26) Creatinine 1.8 mg/dL (0.7-1.3) Estimated GFR (Cockcroft-Gault) 37.5 BUN/Creatinine Ratio 19 (6-20) Glucose Level 99 mg/dL (70-99) Calcium Level 8.2 mg/dL (8.5-10.1) Total Bilirubin 0.6 mg/dL (0.2-1.0) Aspartate Amino Transf (AST/SGOT) 30 U/L (15-37) Alanine Aminotransferase (ALT/SGPT) 18 U/L (16-63) Alkaline Phosphatase 106 U/L (46-116) Total Protein 5.7 g/dL (6.4-8.2) Albumin 1.6 g/dL (3.4-5.0) Albumin/Globulin Ratio 0.4 (1.0-1.7) Test 03/26/18 07:14 03/26/18 11:54 03/26/18 14:40 03/26/18 16:49 Glucose (Fingerstick) 106 mg/dL (70-99) 129 mg/dL (70-99) 126 mg/dL (70-99) 117 mg/dL (70-99) Test 03/26/18 21:15 03/27/18 03:02 03/27/18 05:58 03/27/18 08:04 Glucose (Fingerstick) 213 mg/dL (70-99) 174 mg/dL (70-99) 158 mg/dL (70-99) White Blood Count 11.9 x10^3/uL (4.0-11.0) Red Blood Count 3.35 x10^6/uL (4.30-5.70) Hemoglobin 10.8 g/dL (13.0-17.5) Hematocrit 31.6 % (39.0-53.0) Mean Corpuscular Volume 95 fL (79-100) Mean Corpuscular Hemoglobin 32 pg (25-35) Mean Corpuscular Hemoglobin Concent 34 g/dL (31-37) Red Cell Distribution Width 15.7 % (11.5-14.5) Platelet Count 290 x10^3/uL (140-400) Neutrophils (%) (Auto) 59 % (31-73) Lymphocytes (%) (Auto) 28 % (24-48) Monocytes (%) (Auto) 10 % (0-9) Eosinophils (%) (Auto) 3 % (0-3) Basophils (%) (Auto) 1 % (0-3) Neutrophils # (Auto) 6.9 x10^3uL (1.8-7.7) Lymphocytes # (Auto) 3.3 x10^3/uL (1.0-4.8) Monocytes # (Auto) 1.2 x10^3/uL (0.0-1.1) Eosinophils # (Auto) 0.3 x10^3/uL (0.0-0.7) Basophils # (Auto) 0.1 x10^3/uL (0.0-0.2) Sodium Level 138 mmol/L (136-145) Potassium Level 3.2 mmol/L (3.5-5.1) Chloride Level 102 mmol/L (98-107) Carbon Dioxide Level 27 mmol/L (21-32) Anion Gap 9 (6-14) Blood Urea Nitrogen 38 mg/dL (8-26) Creatinine 2.2 mg/dL (0.7-1.3) Estimated GFR (Cockcroft-Gault) 29.7 BUN/Creatinine Ratio 17 (6-20) Glucose Level 170 mg/dL (70-99) Calcium Level 8.4 mg/dL (8.5-10.1) Total Bilirubin 0.7 mg/dL (0.2-1.0) Aspartate Amino Transf (AST/SGOT) 35 U/L (15-37) Alanine Aminotransferase (ALT/SGPT) 19 U/L (16-63) Alkaline Phosphatase 109 U/L (46-116) Total Protein 6.6 g/dL (6.4-8.2) Albumin 1.8 g/dL (3.4-5.0) Albumin/Globulin Ratio 0.4 (1.0-1.7) Laboratory Tests Test 03/26/18 14:40 03/26/18 16:49 03/26/18 21:15 03/27/18 03:02 Glucose (Fingerstick) 126 mg/dL (70-99) 117 mg/dL (70-99) 213 mg/dL (70-99) 174 mg/dL (70-99) Test 03/27/18 05:58 03/27/18 08:04 White Blood Count 11.9 x10^3/uL (4.0-11.0) Red Blood Count 3.35 x10^6/uL (4.30-5.70) Hemoglobin 10.8 g/dL (13.0-17.5) Hematocrit 31.6 % (39.0-53.0) Mean Corpuscular Volume 95 fL (79-100) Mean Corpuscular Hemoglobin 32 pg (25-35) Mean Corpuscular Hemoglobin Concent 34 g/dL (31-37) Red Cell Distribution Width 15.7 % (11.5-14.5) Platelet Count 290 x10^3/uL (140-400) Neutrophils (%) (Auto) 59 % (31-73) Lymphocytes (%) (Auto) 28 % (24-48) Monocytes (%) (Auto) 10 % (0-9) Eosinophils (%) (Auto) 3 % (0-3) Basophils (%) (Auto) 1 % (0-3) Neutrophils # (Auto) 6.9 x10^3uL (1.8-7.7) Lymphocytes # (Auto) 3.3 x10^3/uL (1.0-4.8) Monocytes # (Auto) 1.2 x10^3/uL (0.0-1.1) Eosinophils # (Auto) 0.3 x10^3/uL (0.0-0.7) Basophils # (Auto) 0.1 x10^3/uL (0.0-0.2) Sodium Level 138 mmol/L (136-145) Potassium Level 3.2 mmol/L (3.5-5.1) Chloride Level 102 mmol/L (98-107) Carbon Dioxide Level 27 mmol/L (21-32) Anion Gap 9 (6-14) Blood Urea Nitrogen 38 mg/dL (8-26) Creatinine 2.2 mg/dL (0.7-1.3) Estimated GFR (Cockcroft-Gault) 29.7 BUN/Creatinine Ratio 17 (6-20) Glucose Level 170 mg/dL (70-99) Calcium Level 8.4 mg/dL (8.5-10.1) Total Bilirubin 0.7 mg/dL (0.2-1.0) Aspartate Amino Transf (AST/SGOT) 35 U/L (15-37) Alanine Aminotransferase (ALT/SGPT) 19 U/L (16-63) Alkaline Phosphatase 109 U/L (46-116) Total Protein 6.6 g/dL (6.4-8.2) Albumin 1.8 g/dL (3.4-5.0) Albumin/Globulin Ratio 0.4 (1.0-1.7) Glucose (Fingerstick) 158 mg/dL (70-99) Microbiology 03/23/18 Blood Culture - Preliminary, Resulted NO GROWTH AFTER 3 DAYS Medications Current Medications Ondansetron HCl (Zofran) 4 mg PRN Q6HRS PRN IV NAUSEA/VOMITING 1ST CHOICER Last administered on 03/22/18at 16:42; Start 03/22/18 at 16:15 Prochlorperazine Edisylate (Compazine) 10 mg PRN Q6HRS PRN IV NAUSEA/VOMITING 2ND CHOICE; Start 03/22/18 at 16:15 Al Hydroxide/Mg Hydroxide (Mylanta Plus Xs) 30 ml PRN Q3HRS PRN PO HEARTBURN / GAS; Start 03/22/18 at 16:15 Calcium Carbonate/ Glycine (Tums) 500 mg PRN Q3HRS PRN PO UPSET STOMACH; Start 03/22/18 at 16:15 Oxycodone HCl (Roxicodone) 5 mg PRN Q3HRS PRN PO MODERATE PAIN; Start 03/22/18 at 16:15 Morphine Sulfate (Morphine Sulfate) 2 mg PRN Q2HR PRN IV PAIN; Start 03/22/18 at 16:15 Acetaminophen (Tylenol) 650 mg PRN Q6HRS PRN PO Headaches, Temp > 101.5F; Start 03/22/18 at 16:15 Docusate Sodium (Colace) 100 mg BID PO Last administered on 03/27/18 09:17; Start 03/22/18 at 21:00 Magnesium Hydroxide (Milk Of Magnesia) 2,400 mg PRN Q12HR PRN PO CONSTIPATION; Start 03/22/18 at 16:15 Bisacodyl (Dulcolax Supp) 10 mg PRN DAILY PRN AL CONSTIPATION; Start 03/22/18 at 16:15 Insulin Human Lispro (HumaLOG) 0-9 UNITS TIDWMEALS SQ Last administered on 03/27 12:28; Start 03/22/18 at 17:00 Dextrose (Dextrose 50%-Water Syringe) 12.5 gm PRN Q15MIN PRN IV SEE COMMENTS Last administered on 03/23/18at 02:48; Start 03/22/18 at 16:15 Furosemide (Lasix) 40 mg DAILY IVP Last administered on 03/27/18 09:16; Start 03/23/18 at 09:00 Furosemide (Lasix) 40 mg 1X ONCE IVP Last administered on 03/22/18at 16:54; Start 03/22/18 at 16:15; Stop 03/22/18 at 16:32; Status DC Allopurinol (Zyloprim) 100 mg DAILY PO Last administered on 03/27/18 09:17; Start 03/23/18 at 09:00 Amlodipine Besylate (Norvasc) 10 mg DAILY PO Last administered on 03/27/18 09: 18; Start 03/23/18 at 09:00 Atorvastatin Calcium (Lipitor) 40 mg HS PO Last administered on 03/26/18at 21:10 ; Start 03/22/18 at 21:00 Clonidine HCl (Catapres) 0.1 mg TID PO ; Start 03/22/18 at 16:45; Stop 03/24/18 at 19:47; Status DC Insulin Human Lispro (HumaLOG) 25 units TIDWMEALS SQ Last administered on 12:28; Start 03/22/18 at 18:00 Fish Oil (Fish Oil) 1,000 mg BID PO Last administered on 8/22/18at 09:17; Start 03/22/18 at 21:00 Hydralazine HCl (Apresoline) 100 mg TID PO Last administered on 03/23/18at 21:18 ; Start 03/22/18 at 21:00; Stop 03/24/18 at 19:47; Status DC Insulin Glargine (Lantus) 44 units HS SQ Last administered on 03/26/18at 21:40; Start 03/22/18 at 21:00 Losartan Potassium (Cozaar) 100 mg DAILY PO Last administered on 03/23/18at 10: 23; Start 03/23/18 at 09:00; Stop 03/24/18 at 19:47; Status DC Potassium Chloride (Klor-Con) 20 meq DAILYWBKFT PO Last administered on at 09:16; Start 03/23/18 at 08:00 Vancomycin HCl (Vanco Per Pharmacy) 1 each PRN DAILY PRN MC SEE COMMENTS Last administered on 03/23/18at 01:02; Start 03/22/18 at 16:15; Stop 03/23/18 at 12:22 ; Status DC Piperacillin Sod/ Tazobactam Sod (Zosyn Per Pharmacy) 1 each PRN DAILY PRN MC SEE COMMENTS; Start 03/22/18 at 16:15 Sodium Chloride 1,000 ml @ 1,000 mls/hr 1X ONCE IV Last administered on at 16:41; Start 03/22/18 at 16:30; Stop 03/22/18 at 17:29; Status DC Ceftriaxone Sodium 50 ml @ 100 mls/hr 1X ONCE IV Last administered on at 16:41; Start 03/22/18 at 16:30; Stop 03/22/18 at 16:59; Status DC Vancomycin HCl 2 gm/Sodium Chloride 500 ml @ 250 mls/hr 1X ONCE IV Last administered on 03/22/18at 22:16; Start 03/22/18 at 17:00; Stop 03/22/18 at 18:59 ; Status DC Piperacillin Sod/ Tazobactam Sod 3.375 gm/Sodium Chloride 50 ml @ 100 mls/hr 1X ONCE IV Last administered on 03/22/18at 18:01; Start 03/22/18 at 16:45; Stop 03/22/18 at 17:14; Status DC Hydrochlorothiazide (Hydrodiuril) 25 mg DAILY PO Last administered on at 09:17; Start 03/23/18 at 09:00 Piperacillin Sod/ Tazobactam Sod 3.375 gm/Sodium Chloride 50 ml @ 100 mls/hr Q6HRS IV Last administered on 03/27/18at 12:18; Start 03/23/18 at 00:00 Vancomycin HCl 2 gm/Sodium Chloride 500 ml @ 250 mls/hr Q24H IV ; Start at 22:00; Stop 03/23/18 at 22:00; Status DC Vancomycin HCl (Vancomycin Trough Level) 1 each 1X ONCE MC ; Start 03/24/18 at 21:30; Stop 03/24/18 at 21:30; Status DC Daptomycin 500 mg/ Sodium Chloride 50 ml @ 100 mls/hr Q24H IV Last administered on 03/26/18at 12:54; Start 03/23/18 at 13:00 Lactobacillus Rhamnosus (Culturelle) 1 cap BID PO Last administered on at 09:17; Start 03/23/18 at 21:00 Prochlorperazine Edisylate (Compazine) 5 mg PACU PRN PRN IV NAUSEA, MRX1; Start 03/26/18 at 07:00; Stop 03/27/18 at 06:59; Status DC Hydromorphone HCl (Dilaudid) 0.5 mg PRN Q10MIN PRN IV SEV PAIN, Second choice; Start 03/26/18 at 07:00; Stop 03/27/18 at 06:59; Status DC Lidocaine HCl (Xylocaine-Mpf 1% 2ml Vial) 2 ml PRN 1X PRN ID IV START; Start at 07:00; Stop 03/27/18 at 06:59; Status DC Ringer's Solution 1,000 ml @ 30 mls/hr Q24H IV ; Start 03/26/18 at 07:00; Stop 03/26/18 at 18:59; Status DC Morphine Sulfate (Morphine Sulfate) 1 mg PRN Q10MIN PRN IV SEVERE PAIN; Start 03/26/18 at 07:00; Stop 03/27/18 at 06:59; Status DC Fentanyl Citrate (Fentanyl 2ml Vial) 50 mcg PRN Q5MIN PRN IV MODERATE TO SEVERE PAIN; Start 03/26/18 at 07:00; Stop 03/27/18 at 06:59; Status DC Fentanyl Citrate (Fentanyl 2ml Vial) 25 mcg PRN Q5MIN PRN IV MILD PAIN; Start 03/26/18 at 07:00; Stop 03/27/18 at 06:59; Status DC Ondansetron HCl (Zofran) 4 mg PRN Q6HRS PRN IV NAUSEA/VOMITING; Start 03/26/18 at 07:00; Stop 03/27/18 at 06:59; Status DC Sodium Chloride 1,000 ml @ 1,000 mls/hr 1X ONCE IV Last administered on at 21:12; Start 03/25/18 at 21:00; Stop 03/25/18 at 21:59; Status DC Potassium Chloride (Klor-Con) 40 meq 1X ONCE PO Last administered on at 05:59; Start 03/26/18 at 06:00; Stop 03/26/18 at 06:01; Status DC Potassium Chloride (Klor-Con) 40 meq 1X ONCE PO ; Start 03/26/18 at 12:00; Stop 03/26/18 at 12:23; Status DC Cellulose (Surgicel Fibrillar 1x2) 1 each STK-MED ONCE .ROUTE ; Start 03/26/18 at 12:29; Stop 03/26/18 at 13:29; Status DC Lidocaine HCl (Xylocaine 1% Pf 30ml Vial) 30 ml STK-MED ONCE .ROUTE ; Start at 12:29; Stop 03/26/18 at 13:30; Status DC Cefazolin Sodium/ Dextrose 0 ml @ As Directed STK-MED ONCE IV ; Start 03/26/18 at 12:32; Stop 03/26/18 at 13:32; Status DC Propofol 40 ml @ As Directed STK-MED ONCE IV ; Start 03/26/18 at 13:34; Stop at 13:35; Status DC Cefazolin Sodium 50 ml @ As Directed STK-MED ONCE IV ; Start 03/26/18 at 12:34; Stop 03/26/18 at 13:35; Status DC Ketamine HCl 500 mg STK-MED ONCE .ROUTE ; Start 03/26/18 at 13:34; Stop at 13:35; Status DC Active Scripts Active Reported Fish Oil 1,000 Mg Capsule ([place]-3 Fatty Acids/Fish Oil) 1 Each Capsule 1 Each PO DAILY Vemlidy (Tenofovir Alafenamide Fumarate) 25 Mg Tablet 25 Mg PO DAILY Metolazone 2.5 Mg Tablet 2.5 Mg PO DAILY Doxycycline Hyclate 100 Mg Tablet 2 Tab PO BID Amoxicillin 500 Mg Capsule 500 Mg PO QID Hydralazine Hcl 100 Mg Tablet 50 Mg PO TID Potassium Chloride 20 Meq Tablet.er 20 Meq PO BID Lantus (Insulin Glargine,Hum.rec.anlog) 100 Unit/1 Ml Vial 50 Unit SQ HS Aspirin 325 Mg Tablet 325 Mg PO DAILY Atorvastatin Calcium 40 Mg Tablet 40 Mg PO HS Losartan-Hctz 100-25 Mg Tab (Losartan/Hydrochlorothiazide) 1 Each Tablet 1 Each PO DAILY Allopurinol 100 Mg Tablet 100 Mg PO DAILY Amlodipine Besylate 10 Mg Tablet 5 Mg PO DAILY Furosemide 40 Mg Tablet 80 Mg PO BID Humalog (Insulin Lispro) 100 Unit/1 Ml Insuln.pen 25 Unit SQ TID Vitals/I & O Vital Sign - Last 24 Hours 03/26/18 03/26/18 03/26/18 03/26/18 13:16 14:31 14:42 14:46 Temp 98 97.5 97.5 98.0 97.5 97.5 Pulse 126 126 115 Resp 22 15 15 B/P (MAP) 125/75 147/75 132/76 Pulse Ox 92 98 97 O2 Delivery Room Air Room Air Nasal Cannula Nasal Cannula Nasal Cannula O2 Flow Rate 2 2 2 03/26/18 03/26/18 03/26/18 03/26/18 15:01 15:30 15:45 16:00 Temp 97.5 98.1 97.5 98.1 Pulse 111 100 Resp 15 18 B/P (MAP) 132/62 144/62 (89) 139/66 (90) 140/76 (97) Pulse Ox 94 97 O2 Delivery Room Air Room Air 03/26/18 03/26/18 03/26/18 03/26/18 16:15 16:30 17:00 18:29 Temp 98.6 97.9 98.2 98.6 97.9 98.2 Pulse 97 106 101 Resp 18 18 18 B/P (MAP) 150/80 (103) 145/76 (99) 139/79 (99) 141/82 (101) Pulse Ox 96 96 96 O2 Delivery Room Air Room Air Room Air 03/26/18 03/26/18 03/26/18 03/26/18 19:25 20:00 20:25 23:20 Temp 98.3 98.3 98.8 98.3 98.3 98.8 Pulse 90 128 126 Resp 18 18 20 B/P (MAP) 140/84 (102) 124/68 (86) 128/68 (88) Pulse Ox 97 94 91 O2 Delivery Room Air Room Air Room Air Nasal Cannula O2 Flow Rate 2.0 03/27/18 03/27/18 03/27/18 03/27/18 03:17 07:00 09:18 11:00 Temp 98.7 98.1 98.3 98.7 98.1 98.3 Pulse 124 131 131 121 Resp 18 18 18 B/P (MAP) 125/64 (84) 141/67 (91) 141/67 144/85 (104) Pulse Ox 92 96 91 O2 Delivery Nasal Cannula Room Air Nasal Cannula O2 Flow Rate 2.0 2.0 Intake and Output 03/26/18 03/26/18 03/27/18 15:00 23:00 07:00 Intake Total 650 ml 720 ml Output Total 10 ml 300 ml 930 ml Balance 640 ml -300 ml -210 ml CINDI PERKINS MD Mar 27, 2018 12:39
--- NOTE | 2018-03-27 13:20 | PDOC ---
Provider Note Provider Note AF VSS awake and alert bilateral foot dressings dry A/P POD#1 bilateral heel debridements, right deep to the bone - VAC to the right foot today and dressing change to the left heel by wound care nurse today - antibiotics per ID - he needs to have weight off the heels as much as possible, minimal walking to toe touch is best - [facility] discharge GRECIA FELIX MD Mar 27, 2018 13:20
[2018-03-27 15:14] VITALS: BP 140/70
[2018-03-27] MEDS ORDERED: ALPRAZolam 0.25 MG TABLET PO PRN (17:15)
[2018-03-27 19:00] VITALS: BP 145/69
[2018-03-27] MEDS: ATORVASTATIN CALCIUM 40 MG TABLET. PO SCH (20:48)
[2018-03-27] MEDS: INSULIN GLARGINE 300 UNITS/3 ML INSULN.PEN. SQ SCH ×2 (20:49→21:07)
[2018-03-27 23:00] VITALS: BP 149/73
[2018-03-28] MEDS: PIPERACILLIN/TAZOBACTAM 3.375 GM in IV NORMAL SALINE 50ML 50 ML IV SCH ×4 (00:08→17:45)
[2018-03-28 03:00] VITALS: BP 146/80
[2018-03-28 07:00] VITALS: BP 145/67
[2018-03-28] MEDS: INSULIN LISPRO 300 UNITS/3 ML INSULN.PEN. SQ SCH ×6 (08:00→17:00)
[2018-03-28] MEDS: OMEGA-3 FATTY ACIDS/FISH OIL 1,000 MG CAPSULE. PO SCH ×2 (09:04→20:48)
[2018-03-28] MEDS: LACTOBACILLUS RHAMNOSUS GG 1 CAPSULE. PO SCH ×2 (09:04→20:47)
[2018-03-28] MEDS: DOCUSATE SODIUM 100 MG CAPSULE. PO SCH ×2 (09:04→20:48)
[2018-03-28] MEDS: POTASSIUM CHLORIDE 20 MEQ TABLET.ER. PO SCH (09:04)
[2018-03-28] MEDS: amLODIPine BESYLATE 10 MG TABLET PO SCH (09:04)
[2018-03-28] MEDS: hydroCHLOROthiazide 25 MG TABLET PO SCH (09:05)
[2018-03-28] MEDS: ALLOPURINOL 100 MG TABLET. PO SCH (09:05)
[2018-03-28] MEDS: FUROSEMIDE 40 MG/4 ML VIAL. IVP SCH (09:05)
[2018-03-28 11:00] VITALS: BP 143/76
--- NOTE | 2018-03-28 14:36 | PDOC ---
PROGRESS NOTES Chief Complaint Chief Complaint 1. Nonhealing diabetic ulcer of right heel, boggy. 2. History of methicillin-resistant Staphylococcus aureus. 3. Leukocytosis. 4. Renal insufficiency. 5. Diabetic ulcer, left heel. 6. Peripheral vascular disease. 7. Diabetes with peripheral neuropathy. 8. Chronic lymphedema and stasis changes in lower extremities bilaterally. 9. obesity BMI 43. History of Present Illness History of Present Illness still on Dapto per ID, pos MRSA screen will transition to [facility] when abx can be tapered, , wound vac placed - pain OK Local wound care and offloading Pt and OT Vitals Vitals Vital Signs Date Time Temp Pulse Resp B/P (MAP) Pulse Ox O2 Delivery O2 Flow Rate FiO2 03/28/18 11:00 97.8 137 18 143/76 (98) 97 Room Air 97.8 03/28/18 07:00 2.0 Physical Exam Physical Exam GENERAL: Sitting in the recliner, legs elevated, relaxed appearance HEENT: Pupils equally round. Normal conjunctivae. Oral mucosa is pink and moist. NECK: Supple. LUNGS: Clear to auscultation bilaterally. HEART: S1 and S2. ABDOMEN: Obese. Bowel sounds active. Soft, nontender. EXTREMITIES: He has 3-4+ pitting edema in lower extremities bilaterally with chronic stasis changes. aries heel post surgical dressing not opened SKIN: Warm without rash. NEUROLOGIC: Alert and oriented x 3. General: Alert, Oriented X3, Cooperative, No acute distress Heart: Regular rate, Normal S1, Normal S2 Lungs: Clear, Other Abdomen: Normal bowel sounds, Soft, No tenderness, No hepatosplenomegaly, No masses Extremities: No clubbing, Other (has bilateral lymphedema, wounds appear red, redness on the bilateral shins with some oozing and weeping. Bilateral heel wounds, left looks great but the right has some granulation tissue with eschar formation on the heel) Skin: No rashes, Other Labs LABS Laboratory Tests Test 03/27/18 16:26 03/27/18 17:03 03/27/18 20:39 03/28/18 08:29 Glucose (Fingerstick) 56 mg/dL (70-99) 64 mg/dL (70-99) 118 mg/dL (70-99) 111 mg/dL (70-99) Test 03/28/18 11:37 03/28/18 11:43 Glucose (Fingerstick) 57 mg/dL (70-99) 55 mg/dL (70-99) Assessment and Plan Assessmemt and Plan Problems Medical Problems: (1) Abscess or cellulitis of ankle Status: Acute (2) Abscess or cellulitis of ankle Status: Acute (3) Diabetes Status: Acute (4) Diabetes Status: Acute (5) PVD (peripheral vascular disease) Status: Acute (6) PVD (peripheral vascular disease) Status: Acute Comment Review of Relevant I have reviewed the following items mara (where applicable) has been applied. Labs Laboratory Tests Test 03/26/18 14:40 03/26/18 16:49 03/26/18 21:15 03/27/18 03:02 Glucose (Fingerstick) 126 mg/dL (70-99) 117 mg/dL (70-99) 213 mg/dL (70-99) 174 mg/dL (70-99) Test 03/27/18 05:58 03/27/18 08:04 03/27/18 11:46 03/27/18 16:26 White Blood Count 11.9 x10^3/uL (4.0-11.0) Red Blood Count 3.35 x10^6/uL (4.30-5.70) Hemoglobin 10.8 g/dL (13.0-17.5) Hematocrit 31.6 % (39.0-53.0) Mean Corpuscular Volume 95 fL (79-100) Mean Corpuscular Hemoglobin 32 pg (25-35) Mean Corpuscular Hemoglobin Concent 34 g/dL (31-37) Red Cell Distribution Width 15.7 % (11.5-14.5) Platelet Count 290 x10^3/uL (140-400) Neutrophils (%) (Auto) 59 % (31-73) Lymphocytes (%) (Auto) 28 % (24-48) Monocytes (%) (Auto) 10 % (0-9) Eosinophils (%) (Auto) 3 % (0-3) Basophils (%) (Auto) 1 % (0-3) Neutrophils # (Auto) 6.9 x10^3uL (1.8-7.7) Lymphocytes # (Auto) 3.3 x10^3/uL (1.0-4.8) Monocytes # (Auto) 1.2 x10^3/uL (0.0-1.1) Eosinophils # (Auto) 0.3 x10^3/uL (0.0-0.7) Basophils # (Auto) 0.1 x10^3/uL (0.0-0.2) Sodium Level 138 mmol/L (136-145) Potassium Level 3.2 mmol/L (3.5-5.1) Chloride Level 102 mmol/L (98-107) Carbon Dioxide Level 27 mmol/L (21-32) Anion Gap 9 (6-14) Blood Urea Nitrogen 38 mg/dL (8-26) Creatinine 2.2 mg/dL (0.7-1.3) Estimated GFR (Cockcroft-Gault) 29.7 BUN/Creatinine Ratio 17 (6-20) Glucose Level 170 mg/dL (70-99) Calcium Level 8.4 mg/dL (8.5-10.1) Total Bilirubin 0.7 mg/dL (0.2-1.0) Aspartate Amino Transf (AST/SGOT) 35 U/L (15-37) Alanine Aminotransferase (ALT/SGPT) 19 U/L (16-63) Alkaline Phosphatase 109 U/L (46-116) Total Protein 6.6 g/dL (6.4-8.2) Albumin 1.8 g/dL (3.4-5.0) Albumin/Globulin Ratio 0.4 (1.0-1.7) Glucose (Fingerstick) 158 mg/dL (70-99) 190 mg/dL (70-99) 56 mg/dL (70-99) Test 03/27/18 17:03 03/27/18 20:39 03/28/18 08:29 03/28/18 11:37 Glucose (Fingerstick) 64 mg/dL (70-99) 118 mg/dL (70-99) 111 mg/dL (70-99) 57 mg/dL (70-99) Test 03/28/18 11:43 Glucose (Fingerstick) 55 mg/dL (70-99) Laboratory Tests Test 03/27/18 16:26 03/27/18 17:03 03/27/18 20:39 03/28/18 08:29 Glucose (Fingerstick) 56 mg/dL (70-99) 64 mg/dL (70-99) 118 mg/dL (70-99) 111 mg/dL (70-99) Test 03/28/18 11:37 03/28/18 11:43 Glucose (Fingerstick) 57 mg/dL (70-99) 55 mg/dL (70-99) Microbiology 03/23/18 Blood Culture - Final, Complete NO GROWTH AFTER 5 DAYS Medications Current Medications Ondansetron HCl (Zofran) 4 mg PRN Q6HRS PRN IV NAUSEA/VOMITING 1ST CHOICER Last administered on 03/22/18at 16:42; Start 03/22/18 at 16:15 Prochlorperazine Edisylate (Compazine) 10 mg PRN Q6HRS PRN IV NAUSEA/VOMITING 2ND CHOICE; Start 03/22/18 at 16:15 Al Hydroxide/Mg Hydroxide (Mylanta Plus Xs) 30 ml PRN Q3HRS PRN PO HEARTBURN / GAS; Start 03/22/18 at 16:15 Calcium Carbonate/ Glycine (Tums) 500 mg PRN Q3HRS PRN PO UPSET STOMACH; Start 03/22/18 at 16:15 Oxycodone HCl (Roxicodone) 5 mg PRN Q3HRS PRN PO MODERATE PAIN; Start 03/22/18 at 16:15 Morphine Sulfate (Morphine Sulfate) 2 mg PRN Q2HR PRN IV PAIN; Start 03/22/18 at 16:15 Acetaminophen (Tylenol) 650 mg PRN Q6HRS PRN PO Headaches, Temp > 101.5F; Start 03/22/18 at 16:15 Docusate Sodium (Colace) 100 mg BID PO Last administered on 03/28/18at 09:04; Start 03/22/18 at 21:00 Magnesium Hydroxide (Milk Of Magnesia) 2,400 mg PRN Q12HR PRN PO CONSTIPATION; Start 03/22/18 at 16:15 Bisacodyl (Dulcolax Supp) 10 mg PRN DAILY PRN AL CONSTIPATION; Start 03/22/18 at 16:15 Insulin Human Lispro (HumaLOG) 0-9 UNITS TIDWMEALS SQ Last administered on 03/27at 12:28; Start 03/22/18 at 17:00 Dextrose (Dextrose 50%-Water Syringe) 12.5 gm PRN Q15MIN PRN IV SEE COMMENTS Last administered on 03/23/18 02:48; Start 03/22/18 at 16:15 Furosemide (Lasix) 40 mg DAILY IVP Last administered on 03/28/18 09:05; Start 03/23/18 at 09:00 Furosemide (Lasix) 40 mg 1X ONCE IVP Last administered on 03/22/18at 16:54; Start 03/22/18 at 16:15; Stop 03/22/18 at 16:32; Status DC Allopurinol (Zyloprim) 100 mg DAILY PO Last administered on 03/28/18 09:05; Start 03/23/18 at 09:00 Amlodipine Besylate (Norvasc) 10 mg DAILY PO Last administered on 03/28/18 09: 04; Start 03/23/18 at 09:00 Atorvastatin Calcium (Lipitor) 40 mg HS PO Last administered on 03/27/18 20:48 ; Start 03/22/18 at 21:00 Clonidine HCl (Catapres) 0.1 mg TID PO ; Start 03/22/18 at 16:45; Stop 03/24/18 at 19:47; Status DC Insulin Human Lispro (HumaLOG) 25 units TIDWMEALS SQ Last administered on 09:13; Start 03/22/18 at 18:00 Fish Oil (Fish Oil) 1,000 mg BID PO Last administered on 03/28/18 09:04; Start 03/22/18 at 21:00 Hydralazine HCl (Apresoline) 100 mg TID PO Last administered on 03/23/18 21:18 ; Start 03/22/18 at 21:00; Stop 03/24/18 at 19:47; Status DC Insulin Glargine (Lantus) 44 units HS SQ Last administered on 03/27/18 21:07; Start 03/22/18 at 21:00 Losartan Potassium (Cozaar) 100 mg DAILY PO Last administered on 03/23/18 10: 23; Start 03/23/18 at 09:00; Stop 03/24/18 at 19:47; Status DC Potassium Chloride (Klor-Con) 20 meq DAILYWBKFT PO Last administered on at 09:04; Start 03/23/18 at 08:00 Vancomycin HCl (Vanco Per Pharmacy) 1 each PRN DAILY PRN MC SEE COMMENTS Last administered on 03/23/18at 01:02; Start 03/22/18 at 16:15; Stop 03/23/18 at 12:22 ; Status DC Piperacillin Sod/ Tazobactam Sod (Zosyn Per Pharmacy) 1 each PRN DAILY PRN MC SEE COMMENTS; Start 03/22/18 at 16:15 Sodium Chloride 1,000 ml @ 1,000 mls/hr 1X ONCE IV Last administered on at 16:41; Start 03/22/18 at 16:30; Stop 03/22/18 at 17:29; Status DC Ceftriaxone Sodium 50 ml @ 100 mls/hr 1X ONCE IV Last administered on at 16:41; Start 03/22/18 at 16:30; Stop 03/22/18 at 16:59; Status DC Vancomycin HCl 2 gm/Sodium Chloride 500 ml @ 250 mls/hr 1X ONCE IV Last administered on 03/22/18at 22:16; Start 03/22/18 at 17:00; Stop 03/22/18 at 18:59 ; Status DC Piperacillin Sod/ Tazobactam Sod 3.375 gm/Sodium Chloride 50 ml @ 100 mls/hr 1X ONCE IV Last administered on 03/22/18at 18:01; Start 03/22/18 at 16:45; Stop 03/22/18 at 17:14; Status DC Hydrochlorothiazide (Hydrodiuril) 25 mg DAILY PO Last administered on at 09:05; Start 03/23/18 at 09:00 Piperacillin Sod/ Tazobactam Sod 3.375 gm/Sodium Chloride 50 ml @ 100 mls/hr Q6HRS IV Last administered on 03/28/18at 12:33; Start 03/23/18 at 00:00 Vancomycin HCl 2 gm/Sodium Chloride 500 ml @ 250 mls/hr Q24H IV ; Start at 22:00; Stop 03/23/18 at 22:00; Status DC Vancomycin HCl (Vancomycin Trough Level) 1 each 1X ONCE MC ; Start 03/24/18 at 21:30; Stop 03/24/18 at 21:30; Status DC Daptomycin 500 mg/ Sodium Chloride 50 ml @ 100 mls/hr Q24H IV Last administered on 03/28/18at 13:47; Start 03/23/18 at 13:00 Lactobacillus Rhamnosus (Culturelle) 1 cap BID PO Last administered on at 09:04; Start 03/23/18 at 21:00 Prochlorperazine Edisylate (Compazine) 5 mg PACU PRN PRN IV NAUSEA, MRX1; Start 03/26/18 at 07:00; Stop 03/27/18 at 06:59; Status DC Hydromorphone HCl (Dilaudid) 0.5 mg PRN Q10MIN PRN IV SEV PAIN, Second choice; Start 03/26/18 at 07:00; Stop 03/27/18 at 06:59; Status DC Lidocaine HCl (Xylocaine-Mpf 1% 2ml Vial) 2 ml PRN 1X PRN ID IV START; Start at 07:00; Stop 03/27/18 at 06:59; Status DC Ringer's Solution 1,000 ml @ 30 mls/hr Q24H IV ; Start 03/26/18 at 07:00; Stop 03/26/18 at 18:59; Status DC Morphine Sulfate (Morphine Sulfate) 1 mg PRN Q10MIN PRN IV SEVERE PAIN; Start 03/26/18 at 07:00; Stop 03/27/18 at 06:59; Status DC Fentanyl Citrate (Fentanyl 2ml Vial) 50 mcg PRN Q5MIN PRN IV MODERATE TO SEVERE PAIN; Start 03/26/18 at 07:00; Stop 03/27/18 at 06:59; Status DC Fentanyl Citrate (Fentanyl 2ml Vial) 25 mcg PRN Q5MIN PRN IV MILD PAIN; Start 03/26/18 at 07:00; Stop 03/27/18 at 06:59; Status DC Ondansetron HCl (Zofran) 4 mg PRN Q6HRS PRN IV NAUSEA/VOMITING; Start 03/26/18 at 07:00; Stop 03/27/18 at 06:59; Status DC Sodium Chloride 1,000 ml @ 1,000 mls/hr 1X ONCE IV Last administered on at 21:12; Start 03/25/18 at 21:00; Stop 03/25/18 at 21:59; Status DC Potassium Chloride (Klor-Con) 40 meq 1X ONCE PO Last administered on at 05:59; Start 03/26/18 at 06:00; Stop 03/26/18 at 06:01; Status DC Potassium Chloride (Klor-Con) 40 meq 1X ONCE PO ; Start 03/26/18 at 12:00; Stop 03/26/18 at 12:23; Status DC Cellulose (Surgicel Fibrillar 1x2) 1 each STK-MED ONCE .ROUTE ; Start 03/26/18 at 12:29; Stop 03/26/18 at 13:29; Status DC Lidocaine HCl (Xylocaine 1% Pf 30ml Vial) 30 ml STK-MED ONCE .ROUTE ; Start at 12:29; Stop 03/26/18 at 13:30; Status DC Cefazolin Sodium/ Dextrose 0 ml @ As Directed STK-MED ONCE IV ; Start 03/26/18 at 12:32; Stop 03/26/18 at 13:32; Status DC Propofol 40 ml @ As Directed STK-MED ONCE IV ; Start 03/26/18 at 13:34; Stop at 13:35; Status DC Cefazolin Sodium 50 ml @ As Directed STK-MED ONCE IV ; Start 03/26/18 at 12:34; Stop 03/26/18 at 13:35; Status DC Ketamine HCl 500 mg STK-MED ONCE .ROUTE ; Start 03/26/18 at 13:34; Stop at 13:35; Status DC Alprazolam (Xanax) 0.25 mg PRN Q8HRS PRN PO ANXIETY / AGITATION; Start at 17:15 Active Scripts Active Reported Fish Oil 1,000 Mg Capsule ([place]-3 Fatty Acids/Fish Oil) 1 Each Capsule 1 Each PO DAILY Vemlidy (Tenofovir Alafenamide Fumarate) 25 Mg Tablet 25 Mg PO DAILY Metolazone 2.5 Mg Tablet 2.5 Mg PO DAILY Doxycycline Hyclate 100 Mg Tablet 2 Tab PO BID Amoxicillin 500 Mg Capsule 500 Mg PO QID Hydralazine Hcl 100 Mg Tablet 50 Mg PO TID Potassium Chloride 20 Meq Tablet.er 20 Meq PO BID Lantus (Insulin Glargine,Hum.rec.anlog) 100 Unit/1 Ml Vial 50 Unit SQ HS Aspirin 325 Mg Tablet 325 Mg PO DAILY Atorvastatin Calcium 40 Mg Tablet 40 Mg PO HS Losartan-Hctz 100-25 Mg Tab (Losartan/Hydrochlorothiazide) 1 Each Tablet 1 Each PO DAILY Allopurinol 100 Mg Tablet 100 Mg PO DAILY Amlodipine Besylate 10 Mg Tablet 5 Mg PO DAILY Furosemide 40 Mg Tablet 80 Mg PO BID Humalog (Insulin Lispro) 100 Unit/1 Ml Insuln.pen 25 Unit SQ TID Vitals/I & O Vital Sign - Last 24 Hours 03/27/18 03/27/18 03/27/18 03/27/18 15:14 19:00 20:05 23:00 Temp 98.3 97.9 99.5 98.3 97.9 99.5 Pulse 112 108 114 Resp 18 18 18 B/P (MAP) 140/70 (93) 145/69 (94) 149/73 (98) Pulse Ox 91 94 94 O2 Delivery Nasal Cannula Nasal Cannula Room Air Nasal Cannula O2 Flow Rate 2.0 2.0 2.0 03/28/18 03/28/18 03/28/18 03/28/18 03:00 07:00 08:00 09:04 Temp 99.0 98.1 99.0 98.1 Pulse 104 119 104 Resp 18 16 B/P (MAP) 146/80 (102) 145/67 (93) 146/80 Pulse Ox 94 93 O2 Delivery Nasal Cannula Nasal Cannula Room Air O2 Flow Rate 2.0 2.0 03/28/18 11:00 Temp 97.8 97.8 Pulse 137 Resp 18 B/P (MAP) 143/76 (98) Pulse Ox 97 O2 Delivery Room Air Intake and Output 03/27/18 03/27/18 03/28/18 15:00 23:00 07:00 Intake Total 220 ml 1060 ml Output Total 750 ml Balance 220 ml 1060 ml -750 ml CINDI PERKINS MD Mar 28, 2018 14:36
--- NOTE | 2018-03-28 14:40 | PDOC ---
Infectious Disease Note Subjective Subjective Comfortable, no pain Appetite so-so Denies F/C/S/aches/N/V/D/SOA Vital Sign Vital Signs Vital Signs Date Time Temp Pulse Resp B/P (MAP) Pulse Ox O2 Delivery O2 Flow Rate FiO2 03/28/18 11:00 97.8 137 18 143/76 (98) 97 Room Air 97.8 03/28/18 07:00 2.0 Physical Exam PHYSICAL EXAM GENERAL: Sitting in the recliner, legs elevated, relaxed appearance HEENT: Pupils equally round. Normal conjunctivae. Oral mucosa is pink and moist. NECK: Supple. LUNGS: Clear to auscultation bilaterally. HEART: S1 and S2. ABDOMEN: Obese. Bowel sounds active. Soft, nontender. EXTREMITIES: He has 3-4+ pitting edema in lower extremities bilaterally with chronic stasis changes. aries heel post surgical dressing not opened SKIN: Warm without rash. NEUROLOGIC: Alert and oriented x 3. Labs Lab Laboratory Tests Test 03/27/18 16:26 03/27/18 17:03 03/27/18 20:39 03/28/18 08:29 Glucose (Fingerstick) 56 mg/dL (70-99) 64 mg/dL (70-99) 118 mg/dL (70-99) 111 mg/dL (70-99) Test 03/28/18 11:37 03/28/18 11:43 Glucose (Fingerstick) 57 mg/dL (70-99) 55 mg/dL (70-99) Micro Microbiology 03/23/18 Blood Culture - Preliminary, Resulted NO GROWTH AFTER 1 DAY Objective Assessment 1. Nonhealing diabetic ulcer of right heel, boggy. s/p I and D on 03/26/18 2. History of methicillin-resistant Staphylococcus aureus. 3. Leukocytosis. 4. Renal insufficiency. 5. Diabetic ulcer, left heel. 6. Peripheral vascular disease. 7. Diabetes with peripheral neuropathy. 8. Chronic lymphedema and stasis changes in lower extremities bilaterally. 9. Morbid obesity with a body mass index of 43. 10. Atrial fibrillation. Plan Plan of Care Dapto given renal function Cont Zosyn BC NGTD Monitor for toxicities Arterial studies pending Local wound care and offloading intra-op cultures pending D/w MIKE LOVE MD Mar 28, 2018 14:40
[2018-03-28 15:00] VITALS: BP 165/96
[2018-03-28 19:25] VITALS: BP 139/91
[2018-03-28] MEDS: ATORVASTATIN CALCIUM 40 MG TABLET. PO SCH (20:47)
[2018-03-28] MEDS: INSULIN GLARGINE 300 UNITS/3 ML INSULN.PEN. SQ SCH (21:00)
[2018-03-28 23:41] VITALS: BP 141/86
[2018-03-29] MEDS: PIPERACILLIN/TAZOBACTAM 3.375 GM in IV NORMAL SALINE 50ML 50 ML IV SCH ×2 (00:25→06:14)
[2018-03-29 03:19] VITALS: BP 138/84
--- NOTE | 2018-03-29 06:55 | PDOC ---
SURGICAL PROGRESS NOTE Subjective Doing well. No complaints today. Vital Signs Vital Signs Date Time Temp Pulse Resp B/P (MAP) Pulse Ox O2 Delivery O2 Flow Rate FiO2 03/29/18 03:19 98.3 128 20 138/84 (102) 92 Nasal Cannula 2.0 98.3 I&O Intake and Output 03/29/18 07:00 Intake Total 1230 ml Output Total 1201 ml Balance 29 ml Intake Oral 880 ml IV Total 350 ml Output Urine Total 1200 ml Stool Total 1 ml # Voids 3 # Bowel Movements 1 General: Alert, Oriented X3, Cooperative Lungs: Clear to auscultation, Normal air movement Heart: Regular rate, Normal S1, Normal S2 Abdomen: Normal bowel sounds, Soft Skin: Other (Stable. VAC to right leg) Psych/Mental Status: Mental status NL, Mood NL Labs Laboratory Tests Test 03/27/18 08:04 03/27/18 11:46 03/27/18 16:26 03/27/18 17:03 Glucose (Fingerstick) 158 mg/dL (70-99) 190 mg/dL (70-99) 56 mg/dL (70-99) 64 mg/dL (70-99) Test 03/27/18 20:39 03/28/18 08:29 03/28/18 11:37 03/28/18 11:43 Glucose (Fingerstick) 118 mg/dL (70-99) 111 mg/dL (70-99) 57 mg/dL (70-99) 55 mg/dL (70-99) Test 03/28/18 15:05 03/28/18 17:34 03/28/18 20:44 Glucose (Fingerstick) 92 mg/dL (70-99) 116 mg/dL (70-99) 165 mg/dL (70-99) Laboratory Tests Test 03/28/18 08:29 03/28/18 11:37 03/28/18 11:43 03/28/18 15:05 Glucose (Fingerstick) 111 mg/dL (70-99) 57 mg/dL (70-99) 55 mg/dL (70-99) 92 mg/dL (70-99) Test 03/28/18 17:34 03/28/18 20:44 Glucose (Fingerstick) 116 mg/dL (70-99) 165 mg/dL (70-99) Problem List Problems Medical Problems: (1) Abscess or cellulitis of ankle Status: Acute (2) Abscess or cellulitis of ankle Status: Acute (3) Diabetes Status: Acute (4) Diabetes Status: Acute (5) PVD (peripheral vascular disease) Status: Acute (6) PVD (peripheral vascular disease) Status: Acute Assessment/Plan Bilateral Decubitus wounds--S/p debridement. Must wear his PRAFO boots at all times when in chair and in bed. Ok to D/C to SNF. Will Sign off. SONY CARTY DO Mar 29, 2018 06:55
[2018-03-29 07:00] VITALS: BP 133/77
[2018-03-29] MEDS: INSULIN LISPRO 300 UNITS/3 ML INSULN.PEN. SQ SCH ×2 (08:00)
--- NOTE | 2018-03-29 10:04 | PDOC ---
Infectious Disease Note Subjective Subjective Comfortable, no pain Appetite so-so Denies F/C/S/aches/N/V/D/SOA Vital Sign Vital Signs Vital Signs Date Time Temp Pulse Resp B/P (MAP) Pulse Ox O2 Delivery O2 Flow Rate FiO2 03/29/18 07:00 98.2 137 18 133/77 (95) 95 Nasal Cannula 2.0 98.2 Physical Exam PHYSICAL EXAM GENERAL: Sitting in the recliner, legs elevated, relaxed appearance HEENT: Pupils equally round. Normal conjunctivae. Oral mucosa is pink and moist. NECK: Supple. LUNGS: Clear to auscultation bilaterally. HEART: S1 and S2. ABDOMEN: Obese. Bowel sounds active. Soft, nontender. EXTREMITIES: He has 3-4+ pitting edema in lower extremities bilaterally with chronic stasis changes. aries heel post surgical dressing not opened SKIN: Warm without rash. NEUROLOGIC: Alert and oriented x 3. Labs Lab Laboratory Tests Test 03/28/18 11:37 03/28/18 11:43 03/28/18 15:05 03/28/18 17:34 Glucose (Fingerstick) 57 mg/dL (70-99) 55 mg/dL (70-99) 92 mg/dL (70-99) 116 mg/dL (70-99) Test 03/28/18 20:44 03/29/18 07:49 Glucose (Fingerstick) 165 mg/dL (70-99) 142 mg/dL (70-99) Micro Microbiology 03/23/18 Blood Culture - Preliminary, Resulted NO GROWTH AFTER 1 DAY Objective Assessment 1. Nonhealing diabetic ulcer of right heel, boggy. s/p I and D on 03/26/18 2. History of methicillin-resistant Staphylococcus aureus. 3. Leukocytosis. 4. Renal insufficiency. 5. Diabetic ulcer, left heel. 6. Peripheral vascular disease. 7. Diabetes with peripheral neuropathy. 8. Chronic lymphedema and stasis changes in lower extremities bilaterally. 9. Morbid obesity with a body mass index of 43. 10. Atrial fibrillation. Plan Plan of Care change antibiotics to po augmentin and doxy BC NGTD Monitor for toxicities Arterial studies pending Local wound care and offloading D/w MIKE LOVE MD Mar 29, 2018 10:04
[2018-03-29 10:46] VITALS: BP 140/74
[2018-03-29] MEDS ORDERED: DOXYCYCLINE HYCLATE 100 MG TABLET PO SCH (11:00)
[2018-03-29] MEDS ORDERED: AMOXICILLIN/K CLAV 875/125MG TABLET. PO SCH (11:00)
[2018-03-29] MEDS: LACTOBACILLUS RHAMNOSUS GG 1 CAPSULE. PO SCH (11:13)
[2018-03-29] MEDS: OMEGA-3 FATTY ACIDS/FISH OIL 1,000 MG CAPSULE. PO SCH (11:13)
[2018-03-29] MEDS: FUROSEMIDE 40 MG/4 ML VIAL. IVP SCH (11:13)
[2018-03-29] MEDS: hydroCHLOROthiazide 25 MG TABLET PO SCH (11:13)
[2018-03-29 11:14] VITALS: BP 140/74
[2018-03-29] MEDS: DOCUSATE SODIUM 100 MG CAPSULE. PO SCH (11:14)
[2018-03-29] MEDS: amLODIPine BESYLATE 10 MG TABLET PO SCH (11:14)
[2018-03-29] MEDS: ALLOPURINOL 100 MG TABLET. PO SCH (11:22)
[2018-03-29] MEDS: POTASSIUM CHLORIDE 20 MEQ TABLET.ER. PO SCH (11:23)
--- NOTE | 2018-03-29 13:37 | PDOC3 ---
Discharge Summary [facility] Date of Admission: Mar 22, 2018 Discharge Date: Mar 29, 2018 Admitting Diagnosis . Nonhealing diabetic ulcer of right heel, boggy. wound vac on bl heel non healing ulcer post i and d 2. History of methicillin-resistant Staphylococcus aureus. 3. Leukocytosis. 4. Renal insufficiency. 5. Diabetic ulcer, left heel. 6. Peripheral vascular disease. 7. Diabetes with peripheral neuropathy. 8. Chronic lymphedema and stasis changes in lower extremities bilaterally. 9. obesity BMI 43. Final Diagnosis CONSULTS vascular id Brief Hospital Course Mr. Nunn is a 72 old M, dm2, on insulin at home, for bl heel wound which got bl heel i and d and now rt leg has wound vac on. stable to dc to SNF cont wound care, po augmentin and doxy. decrease insulin, cont ssi dc time 35min. Physical Exam GENERAL: Sitting in the recliner, legs elevated, relaxed appearance HEENT: Pupils equally round. Normal conjunctivae. Oral mucosa is pink and moist. NECK: Supple. LUNGS: Clear to auscultation bilaterally. HEART: S1 and S2. ABDOMEN: Obese. Bowel sounds active. Soft, nontender. EXTREMITIES: He has 2++ pitting edema in lower extremities bilaterally with chronic stasis changes. aries heel post surgical dressing not opened, has wound vac on rt leg. SKIN: Warm without rash. Disposition PP CONDITION AT DISCHARGE: Improved Scheduled Allopurinol (Allopurinol), 100 MG PO DAILY, (Reported) Amlodipine Besylate (Amlodipine Besylate), 5 MG PO DAILY, (Reported) Amoxicillin (Amoxicillin), 500 MG PO QID, (Reported) Aspirin (Aspirin), 325 MG PO DAILY, (Reported) Atorvastatin Calcium (Atorvastatin Calcium), 40 MG PO HS, (Reported) Doxycycline Hyclate (Doxycycline Hyclate), 2 TAB PO BID, (Reported) Furosemide (Furosemide), 80 MG PO BID, (Reported) Losartan/Hydrochlorothiazide (Losartan-Hctz 100-25 Mg Tab), 1 EACH PO DAILY, ( Reported) Metolazone (Metolazone), 2.5 MG PO DAILY, (Reported) [place]-3 Fatty Acids/Fish Oil (Fish Oil 1,000 Mg Capsule), 1 EACH PO DAILY, ( Reported) Potassium Chloride (Potassium Chloride), 20 MEQ PO BID, (Reported) Tenofovir Alafenamide Fumarate (Vemlidy), 25 MG PO DAILY, (Reported) Discontinued Medications Hydralazine Hcl (Hydralazine Hcl), 50 MG PO TID, (Reported) Insulin Glargine,Hum.rec.anlog (Lantus), 50 UNIT SQ HS, (Reported) Insulin Lispro (Humalog), 25 UNIT SQ TID, (Reported) MIKY PRADO MD Mar 29, 2018 13:37
== END 2018-03-29 14:20 | DRG 853 ==
LOC: ER 14:41 → 4 NORTH 16:30
PROVIDERS: ADMIT Internal Medicine; ATTEND Internal Medicine
PROC: 0JBR0ZZ Excision of Left Foot Subcutaneous Tissue and Fascia, Open Approach (ICD-10-PCS; 2018-03-26)
PROC: 0QBL0ZZ Excision of Right Tarsal, Open Approach (ICD-10-PCS; principal; 2018-03-26 13:45)
DX: A41.9 Sepsis, unspecified organism (principal); E43 Unspecified severe protein-calorie malnutrition; E11.52 Type 2 diabetes mellitus with diabetic peripheral angiopathy with gangrene; I42.9 Cardiomyopathy, unspecified; L97.429 Non-pressure chronic ulcer of left heel and midfoot with unspecified severity; Z68.41 Body mass index [BMI] 40.0-44.9, adult; L03.115 Cellulitis of right lower limb; L03.116 Cellulitis of left lower limb; I25.10 Atherosclerotic heart disease of native coronary artery without angina pectoris; I50.9 Heart failure, unspecified; I11.0 Hypertensive heart disease with heart failure; E78.00 Pure hypercholesterolemia, unspecified; E11.42 Type 2 diabetes mellitus with diabetic polyneuropathy; E11.621 Type 2 diabetes mellitus with foot ulcer; E11.65 Type 2 diabetes mellitus with hyperglycemia; L89.619 Pressure ulcer of right heel, unspecified stage; E66.01 Morbid (severe) obesity due to excess calories; F41.9 Anxiety disorder, unspecified; I89.0 Lymphedema, not elsewhere classified; I48.91 Unspecified atrial fibrillation; E78.5 Hyperlipidemia, unspecified; N28.9 Disorder of kidney and ureter, unspecified; Z22.322 Carrier or suspected carrier of Methicillin resistant Staphylococcus aureus; Z82.49 Family history of ischemic heart disease and other diseases of the circulatory system; Z86.14 Personal history of Methicillin resistant Staphylococcus aureus infection; Z79.4 Long term (current) use of insulin; M77.30 Calcaneal spur, unspecified foot
CPT/HCPCS: 36415; 73590; 73630; 80053; 82550; 82962; 83036; 85025; 85651; 86140; 87040; 93923; 96365; 96375; J0690; J0878; J1815; J1940; J2405; J2543; J2704; J3370; J3490; J7030; J7040; J7042; 97110; 97530; 99285-25; A4461

== ENCOUNTER → 2018-04-03 | Outpatient (CLI) | payer MEDICARE ==
[2018-03-29 11:14] VITALS: BP 140/74
[~2018-04-03] MED LIST changes: -AMLO10TA2 PO; +AMLO10TA6 PO; +AMOX500C PO; +DOXY100T PO; +METO2.5T PO; +TENO25TA PO
== END | disposition home or self-care (01) ==
LOC: PMGWOUND 11:26
PROVIDERS: ATTEND Preventive Medicine Undersea and Hyperbaric Medicine
DX: E11.621 Type 2 diabetes mellitus with foot ulcer (principal); L97.414 Non-pressure chronic ulcer of right heel and midfoot with necrosis of bone; L97.421 Non-pressure chronic ulcer of left heel and midfoot limited to breakdown of skin; I11.0 Hypertensive heart disease with heart failure; I50.9 Heart failure, unspecified; E11.42 Type 2 diabetes mellitus with diabetic polyneuropathy; E11.65 Type 2 diabetes mellitus with hyperglycemia; E11.52 Type 2 diabetes mellitus with diabetic peripheral angiopathy with gangrene; I96 Gangrene, not elsewhere classified; L84 Corns and callosities; F32.9 Major depressive disorder, single episode, unspecified; F41.9 Anxiety disorder, unspecified; I42.9 Cardiomyopathy, unspecified; I48.91 Unspecified atrial fibrillation; E78.5 Hyperlipidemia, unspecified; I89.0 Lymphedema, not elsewhere classified; E78.00 Pure hypercholesterolemia, unspecified; I25.10 Atherosclerotic heart disease of native coronary artery without angina pectoris; E66.01 Morbid (severe) obesity due to excess calories; Z68.43 Body mass index [BMI] 50.0-59.9, adult; Z79.4 Long term (current) use of insulin
CPT/HCPCS: 97597; 97598; 97605

== ENCOUNTER → 2018-04-17 | Outpatient (CLI) | payer MEDICARE ==
[2018-03-29 11:14] VITALS: BP 140/74
== END | disposition home or self-care (01) ==
LOC: PMGWOUND 08:30 → EDSTATUS 17:56
PROVIDERS: ATTEND Emergency Medicine Undersea and Hyperbaric Medicine
DX: E11.621 Type 2 diabetes mellitus with foot ulcer (principal); L97.413 Non-pressure chronic ulcer of right heel and midfoot with necrosis of muscle; L97.423 Non-pressure chronic ulcer of left heel and midfoot with necrosis of muscle; E11.42 Type 2 diabetes mellitus with diabetic polyneuropathy; E11.65 Type 2 diabetes mellitus with hyperglycemia; E11.52 Type 2 diabetes mellitus with diabetic peripheral angiopathy with gangrene; I96 Gangrene, not elsewhere classified; I11.0 Hypertensive heart disease with heart failure; I50.9 Heart failure, unspecified; L84 Corns and callosities; F41.9 Anxiety disorder, unspecified; E78.5 Hyperlipidemia, unspecified; I89.0 Lymphedema, not elsewhere classified; E78.00 Pure hypercholesterolemia, unspecified; I48.91 Unspecified atrial fibrillation; I42.9 Cardiomyopathy, unspecified; I25.10 Atherosclerotic heart disease of native coronary artery without angina pectoris; E66.01 Morbid (severe) obesity due to excess calories; Z68.43 Body mass index [BMI] 50.0-59.9, adult; Z79.4 Long term (current) use of insulin
CPT/HCPCS: 99214; G0463

== ENCOUNTER → 2018-07-02 | Outpatient (CLI) | payer MEDICARE | END | disposition home or self-care (01) | LOC: PMGWOUND 09:49 | PROVIDERS: ATTEND Emergency Medicine Undersea and Hyperbaric Medicine | DX: E11.621 Type 2 diabetes mellitus with foot ulcer (principal); L97.413 Non-pressure chronic ulcer of right heel and midfoot with necrosis of muscle; L97.423 Non-pressure chronic ulcer of left heel and midfoot with necrosis of muscle; E11.65 Type 2 diabetes mellitus with hyperglycemia; E11.52 Type 2 diabetes mellitus with diabetic peripheral angiopathy with gangrene; I96 Gangrene, not elsewhere classified; I11.0 Hypertensive heart disease with heart failure; I50.9 Heart failure, unspecified; L84 Corns and callosities; E78.5 Hyperlipidemia, unspecified; I42.9 Cardiomyopathy, unspecified; I48.91 Unspecified atrial fibrillation; I25.10 Atherosclerotic heart disease of native coronary artery without angina pectoris; E66.01 Morbid (severe) obesity due to excess calories; Z68.43 Body mass index [BMI] 50.0-59.9, adult | CPT/HCPCS: 29581 ==

== ENCOUNTER → 2018-07-02 | Outpatient (CLI) | payer MEDICARE ==
--- NOTE | 2018-07-02 12:22 | CARD ---
MR#: [id number] Date of Study: 07/02/2018 Ordering Physician: DICK LAZO, Referring Physician: DICK LAZO Tech: Arabella Rios RDCS APPROVED REPORT EXAM: Two-dimensional and M-mode echocardiogram with Doppler and color Doppler. Other Information Quality : Good Rhythm : Atrial Fibrillation INDICATION Atrial Fibrillation 2D DIMENSIONS RVDd2.6 (2.9-3.5cm)Left Atrium(2D)4.6 (1.6-4.0cm) IVSd1.3 (0.7-1.1cm)Aortic Root(2D)3.6 (2.0-3.7cm) LVDd5.0 (3.9-5.9cm)LVOT Diameter2.1 (1.8-2.4cm) PWd1.3 (0.7-1.1cm)LVDs3.8 (2.5-4.0cm) FS (%) 24.5 %SV57.2 ml LVEF(%)48.4 (>50%) Aortic Valve AoV Peak Neil.203.4cm/sAoV VTI37.8cm AO Peak GR.16.5mmHgLVOT Peak Neil.110.5cm/s AO Mean GR.10mmHgAVA (VMAX)1.95cm2 CODY (VTI)2.10cm2 Mitral Valve MV E Wcaduakv391.1cm/sMV DECEL NIPB118la MV A Velocity2.3cm/sE/A Ratio71.3 Tricuspid Valve TR P. Hbdzxagy086sn/sRAP OXTCTYRA5mlPm TR Peak Gr.88mzJuGDHK19jtOd LEFT VENTRICLE The left ventricle is normal size. There is mild concentric left ventricular hypertrophy. The left ve ntricular systolic function is normal. The Ejection Fraction is estimated at 55%. Septal motion consi stent with conduction abnormality. RIGHT VENTRICLE The right ventricle is normal size. The right ventricular systolic function is normal. ATRIA The left atrium is mildly dilated. The right atrium size is normal. The interatrial septum is intact with no evidence for an atrial septal defect or patent foramen ovale as noted on 2-D or Doppler imagi ng. AORTIC VALVE The aortic valve is calcified and displays decreased opening. Doppler and Color Flow revealed trace a ortic regurgitation. There is no significant aortic valvular stenosis.. MITRAL VALVE The mitral valve is calcified but opens well. Posterior mitral annular calcification is moderate. The re is no evidence of mitral valve prolapse. There is no mitral valve stenosis. Doppler and Color-flow revealed trace mitral regurgitation. TRICUSPID VALVE The tricuspid valve is normal in structure and function. Doppler and Color Flow revealed trace to mil d tricuspid regurgitation. There is mild pulmonary hypertension. The PA pressure was estimated at 35 mmHg. There is no tricuspid valve stenosis. PULMONIC VALVE The pulmonic valve is not well visualized. Doppler and Color Flow revealed trace to mild pulmonic jamar vular regurgitation. There is no pulmonic valvular stenosis. GREAT VESSELS The aortic root is normal in size. The ascending aorta is not well seen. The IVC is normal in size an d collapses >50% with inspiration. PERICARDIAL EFFUSION There is no evidence of significant pericardial effusion. Critical Notification Critical Value: No <Conclusion> The left ventricular systolic function is normal. The Ejection Fraction is estimated at 55%. Septal motion consistent with conduction abnormality. Trace mitral regurgitation. Trace to mild tricuspid regurgitation. There is mild pulmonary hypertension. The PA pressure was estimated at 35 mmHg. There is no evidence of significant pericardial effusion. Signed by : Dick Lazo, Electronically Approved : 07/02/2018 12:20:59
== END | disposition home or self-care (01) ==
LOC: ECHO 10:55
PROVIDERS: ATTEND Internal Medicine Cardiovascular Disease
DX: I48.91 Unspecified atrial fibrillation (principal)
CPT/HCPCS: 93306

== ENCOUNTER → 2018-07-05 | Outpatient (CLI) | payer MEDICARE | END | disposition home or self-care (01) | LOC: PMGWOUND 10:08 | PROVIDERS: ATTEND Preventive Medicine Undersea and Hyperbaric Medicine | DX: E11.621 Type 2 diabetes mellitus with foot ulcer (principal); L97.413 Non-pressure chronic ulcer of right heel and midfoot with necrosis of muscle; L97.423 Non-pressure chronic ulcer of left heel and midfoot with necrosis of muscle; E11.52 Type 2 diabetes mellitus with diabetic peripheral angiopathy with gangrene; I96 Gangrene, not elsewhere classified; E11.65 Type 2 diabetes mellitus with hyperglycemia; I11.0 Hypertensive heart disease with heart failure; I50.9 Heart failure, unspecified; L84 Corns and callosities; I42.9 Cardiomyopathy, unspecified; I48.91 Unspecified atrial fibrillation; I25.10 Atherosclerotic heart disease of native coronary artery without angina pectoris; E66.01 Morbid (severe) obesity due to excess calories; Z68.43 Body mass index [BMI] 50.0-59.9, adult | CPT/HCPCS: 29581 ==

== ENCOUNTER → 2018-07-08 | Outpatient (CLI) | payer MEDICARE | END | disposition home or self-care (01) | LOC: PMGWOUND 10:06 | PROVIDERS: ATTEND Emergency Medicine Undersea and Hyperbaric Medicine | DX: E11.621 Type 2 diabetes mellitus with foot ulcer (principal); L97.413 Non-pressure chronic ulcer of right heel and midfoot with necrosis of muscle; L97.423 Non-pressure chronic ulcer of left heel and midfoot with necrosis of muscle; E11.65 Type 2 diabetes mellitus with hyperglycemia; E11.52 Type 2 diabetes mellitus with diabetic peripheral angiopathy with gangrene; I96 Gangrene, not elsewhere classified; I11.0 Hypertensive heart disease with heart failure; I50.9 Heart failure, unspecified; L84 Corns and callosities; I42.9 Cardiomyopathy, unspecified; E78.5 Hyperlipidemia, unspecified; I48.91 Unspecified atrial fibrillation; I25.10 Atherosclerotic heart disease of native coronary artery without angina pectoris; E66.01 Morbid (severe) obesity due to excess calories; Z68.43 Body mass index [BMI] 50.0-59.9, adult | CPT/HCPCS: 11042; 29581 ==

== ENCOUNTER → 2018-07-11 | Outpatient (CLI) | payer MEDICARE | END | disposition home or self-care (01) | LOC: PMGWOUND 10:32 | PROVIDERS: ATTEND Emergency Medicine Undersea and Hyperbaric Medicine | DX: E11.621 Type 2 diabetes mellitus with foot ulcer (principal); L97.413 Non-pressure chronic ulcer of right heel and midfoot with necrosis of muscle; L97.423 Non-pressure chronic ulcer of left heel and midfoot with necrosis of muscle; E11.52 Type 2 diabetes mellitus with diabetic peripheral angiopathy with gangrene; I96 Gangrene, not elsewhere classified; I11.0 Hypertensive heart disease with heart failure; I50.9 Heart failure, unspecified; L84 Corns and callosities; E78.5 Hyperlipidemia, unspecified; I48.91 Unspecified atrial fibrillation; I25.10 Atherosclerotic heart disease of native coronary artery without angina pectoris; E66.01 Morbid (severe) obesity due to excess calories; Z68.43 Body mass index [BMI] 50.0-59.9, adult | CPT/HCPCS: 29581 ==

== ENCOUNTER → 2018-07-15 | Outpatient (CLI) | payer MEDICARE | END | disposition home or self-care (01) | LOC: PMGWOUND 10:18 | PROVIDERS: ATTEND Emergency Medicine Undersea and Hyperbaric Medicine | DX: E11.621 Type 2 diabetes mellitus with foot ulcer (principal); L97.413 Non-pressure chronic ulcer of right heel and midfoot with necrosis of muscle; L97.423 Non-pressure chronic ulcer of left heel and midfoot with necrosis of muscle; E11.65 Type 2 diabetes mellitus with hyperglycemia; E11.52 Type 2 diabetes mellitus with diabetic peripheral angiopathy with gangrene; I96 Gangrene, not elsewhere classified; I11.0 Hypertensive heart disease with heart failure; I50.9 Heart failure, unspecified; L84 Corns and callosities; I42.9 Cardiomyopathy, unspecified; E78.5 Hyperlipidemia, unspecified; I48.91 Unspecified atrial fibrillation; I25.10 Atherosclerotic heart disease of native coronary artery without angina pectoris; E66.01 Morbid (severe) obesity due to excess calories; Z68.43 Body mass index [BMI] 50.0-59.9, adult | CPT/HCPCS: 11042; 29581 ==

== ENCOUNTER → 2018-07-18 | Outpatient (CLI) | payer MEDICARE | END | disposition home or self-care (01) | LOC: PMGWOUND 10:03 | PROVIDERS: ATTEND Emergency Medicine Undersea and Hyperbaric Medicine | DX: E11.621 Type 2 diabetes mellitus with foot ulcer (principal); L97.413 Non-pressure chronic ulcer of right heel and midfoot with necrosis of muscle; E11.65 Type 2 diabetes mellitus with hyperglycemia; E11.52 Type 2 diabetes mellitus with diabetic peripheral angiopathy with gangrene; I96 Gangrene, not elsewhere classified; I11.0 Hypertensive heart disease with heart failure; I50.9 Heart failure, unspecified; L84 Corns and callosities; I42.9 Cardiomyopathy, unspecified; E78.5 Hyperlipidemia, unspecified; I48.91 Unspecified atrial fibrillation; I25.10 Atherosclerotic heart disease of native coronary artery without angina pectoris; E66.01 Morbid (severe) obesity due to excess calories; Z68.43 Body mass index [BMI] 50.0-59.9, adult | CPT/HCPCS: 99214; G0463 ==

== ENCOUNTER → 2018-07-22 | Outpatient (CLI) | payer MEDICARE | END | disposition home or self-care (01) | LOC: PMGWOUND 10:53 | PROVIDERS: ATTEND Emergency Medicine Undersea and Hyperbaric Medicine | DX: E11.621 Type 2 diabetes mellitus with foot ulcer (principal); L97.413 Non-pressure chronic ulcer of right heel and midfoot with necrosis of muscle; E11.52 Type 2 diabetes mellitus with diabetic peripheral angiopathy with gangrene; I96 Gangrene, not elsewhere classified; E11.65 Type 2 diabetes mellitus with hyperglycemia; I11.0 Hypertensive heart disease with heart failure; I50.9 Heart failure, unspecified; L84 Corns and callosities; I42.9 Cardiomyopathy, unspecified; I48.91 Unspecified atrial fibrillation; E78.5 Hyperlipidemia, unspecified; I25.10 Atherosclerotic heart disease of native coronary artery without angina pectoris; E66.01 Morbid (severe) obesity due to excess calories; Z68.43 Body mass index [BMI] 50.0-59.9, adult | CPT/HCPCS: 11042 ==

== ENCOUNTER → 2018-07-25 | Outpatient (CLI) | payer MEDICARE | END | disposition home or self-care (01) | LOC: PMGWOUND 10:30 | PROVIDERS: ATTEND Emergency Medicine Undersea and Hyperbaric Medicine | DX: E11.621 Type 2 diabetes mellitus with foot ulcer (principal); L97.413 Non-pressure chronic ulcer of right heel and midfoot with necrosis of muscle; E11.52 Type 2 diabetes mellitus with diabetic peripheral angiopathy with gangrene; I96 Gangrene, not elsewhere classified; E11.65 Type 2 diabetes mellitus with hyperglycemia; I11.0 Hypertensive heart disease with heart failure; I50.9 Heart failure, unspecified; L84 Corns and callosities; E78.5 Hyperlipidemia, unspecified; I42.9 Cardiomyopathy, unspecified; I48.91 Unspecified atrial fibrillation; I25.10 Atherosclerotic heart disease of native coronary artery without angina pectoris; E66.01 Morbid (severe) obesity due to excess calories; Z68.43 Body mass index [BMI] 50.0-59.9, adult | CPT/HCPCS: 99214; G0463 ==

== ENCOUNTER → 2018-07-29 | Outpatient (CLI) | payer MEDICARE | END | disposition home or self-care (01) | LOC: PMGWOUND 11:00 | PROVIDERS: ATTEND Emergency Medicine Undersea and Hyperbaric Medicine | DX: E11.621 Type 2 diabetes mellitus with foot ulcer (principal); L97.413 Non-pressure chronic ulcer of right heel and midfoot with necrosis of muscle; E11.65 Type 2 diabetes mellitus with hyperglycemia; E11.52 Type 2 diabetes mellitus with diabetic peripheral angiopathy with gangrene; I96 Gangrene, not elsewhere classified; I11.0 Hypertensive heart disease with heart failure; I50.9 Heart failure, unspecified; L84 Corns and callosities; E78.5 Hyperlipidemia, unspecified; I42.9 Cardiomyopathy, unspecified; I48.91 Unspecified atrial fibrillation; I25.10 Atherosclerotic heart disease of native coronary artery without angina pectoris; E66.01 Morbid (severe) obesity due to excess calories; Z68.43 Body mass index [BMI] 50.0-59.9, adult | CPT/HCPCS: 11042 ==

== ENCOUNTER → 2018-08-01 | Outpatient (CLI) | payer MEDICARE | END | disposition home or self-care (01) | LOC: PMGWOUND 11:07 | PROVIDERS: ATTEND Emergency Medicine Undersea and Hyperbaric Medicine | DX: E11.621 Type 2 diabetes mellitus with foot ulcer (principal); L97.413 Non-pressure chronic ulcer of right heel and midfoot with necrosis of muscle; E11.65 Type 2 diabetes mellitus with hyperglycemia; L84 Corns and callosities; E11.52 Type 2 diabetes mellitus with diabetic peripheral angiopathy with gangrene; I96 Gangrene, not elsewhere classified; I11.0 Hypertensive heart disease with heart failure; I50.9 Heart failure, unspecified; E78.5 Hyperlipidemia, unspecified; I48.91 Unspecified atrial fibrillation; I42.9 Cardiomyopathy, unspecified; I25.10 Atherosclerotic heart disease of native coronary artery without angina pectoris; E66.01 Morbid (severe) obesity due to excess calories; Z68.43 Body mass index [BMI] 50.0-59.9, adult | CPT/HCPCS: 99214; G0463 ==

== ENCOUNTER → 2018-08-08 | Outpatient (CLI) | payer MEDICARE | END | disposition home or self-care (01) | LOC: PMGWOUND 11:54 | PROVIDERS: ATTEND Emergency Medicine Undersea and Hyperbaric Medicine | DX: E11.621 Type 2 diabetes mellitus with foot ulcer (principal); L97.413 Non-pressure chronic ulcer of right heel and midfoot with necrosis of muscle; E11.52 Type 2 diabetes mellitus with diabetic peripheral angiopathy with gangrene; I96 Gangrene, not elsewhere classified; L84 Corns and callosities; I42.9 Cardiomyopathy, unspecified; I25.10 Atherosclerotic heart disease of native coronary artery without angina pectoris; E66.01 Morbid (severe) obesity due to excess calories; Z68.43 Body mass index [BMI] 50.0-59.9, adult | CPT/HCPCS: 99214; G0463 ==

== ENCOUNTER → 2018-08-15 | Outpatient (CLI) | payer MEDICARE | END | disposition home or self-care (01) | LOC: PMGWOUND 10:52 | PROVIDERS: ATTEND Emergency Medicine Undersea and Hyperbaric Medicine | DX: E11.621 Type 2 diabetes mellitus with foot ulcer (principal); L97.413 Non-pressure chronic ulcer of right heel and midfoot with necrosis of muscle; E11.622 Type 2 diabetes mellitus with other skin ulcer; L97.821 Non-pressure chronic ulcer of other part of left lower leg limited to breakdown of skin; E11.52 Type 2 diabetes mellitus with diabetic peripheral angiopathy with gangrene; I96 Gangrene, not elsewhere classified; E11.65 Type 2 diabetes mellitus with hyperglycemia; I11.0 Hypertensive heart disease with heart failure; I50.9 Heart failure, unspecified; L84 Corns and callosities; E78.5 Hyperlipidemia, unspecified; I48.91 Unspecified atrial fibrillation; I42.9 Cardiomyopathy, unspecified; I25.10 Atherosclerotic heart disease of native coronary artery without angina pectoris; E66.01 Morbid (severe) obesity due to excess calories; Z68.43 Body mass index [BMI] 50.0-59.9, adult | CPT/HCPCS: 11042 ==

== ENCOUNTER → 2018-08-22 | Outpatient (CLI) | payer MEDICARE | END | disposition home or self-care (01) | LOC: PMGWOUND 11:37 | PROVIDERS: ATTEND Emergency Medicine Undersea and Hyperbaric Medicine | DX: E11.621 Type 2 diabetes mellitus with foot ulcer (principal); L97.413 Non-pressure chronic ulcer of right heel and midfoot with necrosis of muscle; E11.52 Type 2 diabetes mellitus with diabetic peripheral angiopathy with gangrene; I96 Gangrene, not elsewhere classified; E11.65 Type 2 diabetes mellitus with hyperglycemia; I11.0 Hypertensive heart disease with heart failure; I50.9 Heart failure, unspecified; L84 Corns and callosities; I48.91 Unspecified atrial fibrillation; I42.9 Cardiomyopathy, unspecified; E78.5 Hyperlipidemia, unspecified; I25.10 Atherosclerotic heart disease of native coronary artery without angina pectoris; E66.01 Morbid (severe) obesity due to excess calories; Z68.43 Body mass index [BMI] 50.0-59.9, adult | CPT/HCPCS: 11042 ==

== ENCOUNTER → 2018-08-29 | Outpatient (CLI) | payer MEDICARE | END | disposition home or self-care (01) | LOC: PMGWOUND 09:19 | PROVIDERS: ATTEND Emergency Medicine Undersea and Hyperbaric Medicine | DX: E11.621 Type 2 diabetes mellitus with foot ulcer (principal); L97.413 Non-pressure chronic ulcer of right heel and midfoot with necrosis of muscle; E11.52 Type 2 diabetes mellitus with diabetic peripheral angiopathy with gangrene; I96 Gangrene, not elsewhere classified; E11.65 Type 2 diabetes mellitus with hyperglycemia; I11.0 Hypertensive heart disease with heart failure; I50.9 Heart failure, unspecified; L84 Corns and callosities; E78.5 Hyperlipidemia, unspecified; I42.9 Cardiomyopathy, unspecified; I48.91 Unspecified atrial fibrillation; I25.10 Atherosclerotic heart disease of native coronary artery without angina pectoris; E66.01 Morbid (severe) obesity due to excess calories; Z68.43 Body mass index [BMI] 50.0-59.9, adult | CPT/HCPCS: 11042 ==

== ENCOUNTER → 2018-09-05 | Outpatient (CLI) | payer MEDICARE ==
[~2018-09-05] MED LIST changes: -PROP225C3 PO; +PROPAFENONE HC225 M1 PO
== END | disposition home or self-care (01) ==
LOC: PMGWOUND 10:37
PROVIDERS: ATTEND Preventive Medicine Undersea and Hyperbaric Medicine
DX: E11.621 Type 2 diabetes mellitus with foot ulcer (principal); L97.413 Non-pressure chronic ulcer of right heel and midfoot with necrosis of muscle; E11.65 Type 2 diabetes mellitus with hyperglycemia; E11.52 Type 2 diabetes mellitus with diabetic peripheral angiopathy with gangrene; I96 Gangrene, not elsewhere classified; I11.0 Hypertensive heart disease with heart failure; I50.9 Heart failure, unspecified; L84 Corns and callosities; I42.9 Cardiomyopathy, unspecified; E78.5 Hyperlipidemia, unspecified; I48.91 Unspecified atrial fibrillation; I25.10 Atherosclerotic heart disease of native coronary artery without angina pectoris; E66.01 Morbid (severe) obesity due to excess calories; Z68.43 Body mass index [BMI] 50.0-59.9, adult
CPT/HCPCS: 11042

== ENCOUNTER → 2018-09-16 | Outpatient (CLI) | payer MEDICARE ==
[~2018-09-16] MED LIST changes: -AMLO10TA6 PO; +AMLO10TA8 PO
== END | disposition home or self-care (01) ==
LOC: PMGWOUND 13:18
PROVIDERS: ATTEND Emergency Medicine Undersea and Hyperbaric Medicine
DX: E11.621 Type 2 diabetes mellitus with foot ulcer (principal); L97.413 Non-pressure chronic ulcer of right heel and midfoot with necrosis of muscle; E11.52 Type 2 diabetes mellitus with diabetic peripheral angiopathy with gangrene; I96 Gangrene, not elsewhere classified; I11.0 Hypertensive heart disease with heart failure; I50.9 Heart failure, unspecified; L84 Corns and callosities; I42.9 Cardiomyopathy, unspecified; E78.5 Hyperlipidemia, unspecified; I48.91 Unspecified atrial fibrillation; I25.10 Atherosclerotic heart disease of native coronary artery without angina pectoris; E66.01 Morbid (severe) obesity due to excess calories; Z68.43 Body mass index [BMI] 50.0-59.9, adult
CPT/HCPCS: 99214; G0463

== ENCOUNTER → 2018-09-26 | Outpatient (CLI) | payer MEDICARE | END | disposition home or self-care (01) | LOC: PMGWOUND 10:40 | PROVIDERS: ATTEND Emergency Medicine Undersea and Hyperbaric Medicine | DX: E11.621 Type 2 diabetes mellitus with foot ulcer (principal); L97.418 Non-pressure chronic ulcer of right heel and midfoot with other specified severity; E11.52 Type 2 diabetes mellitus with diabetic peripheral angiopathy with gangrene; I96 Gangrene, not elsewhere classified; E11.65 Type 2 diabetes mellitus with hyperglycemia; I11.0 Hypertensive heart disease with heart failure; I50.9 Heart failure, unspecified; L84 Corns and callosities; I42.9 Cardiomyopathy, unspecified; E78.5 Hyperlipidemia, unspecified; I48.91 Unspecified atrial fibrillation; I25.10 Atherosclerotic heart disease of native coronary artery without angina pectoris; E66.01 Morbid (severe) obesity due to excess calories; Z68.43 Body mass index [BMI] 50.0-59.9, adult | CPT/HCPCS: 99213; G0463 ==

== ENCOUNTER → 2018-10-10 | Outpatient (CLI) | payer MEDICARE | END | disposition home or self-care (01) | LOC: PMGWOUND 10:15 | PROVIDERS: ATTEND Emergency Medicine Undersea and Hyperbaric Medicine | DX: E11.621 Type 2 diabetes mellitus with foot ulcer (principal); L97.413 Non-pressure chronic ulcer of right heel and midfoot with necrosis of muscle; E11.52 Type 2 diabetes mellitus with diabetic peripheral angiopathy with gangrene; I96 Gangrene, not elsewhere classified; E11.65 Type 2 diabetes mellitus with hyperglycemia; I11.0 Hypertensive heart disease with heart failure; I50.9 Heart failure, unspecified; L84 Corns and callosities; I42.9 Cardiomyopathy, unspecified; E78.5 Hyperlipidemia, unspecified; I48.91 Unspecified atrial fibrillation; I25.10 Atherosclerotic heart disease of native coronary artery without angina pectoris; E66.01 Morbid (severe) obesity due to excess calories; Z68.43 Body mass index [BMI] 50.0-59.9, adult | CPT/HCPCS: 99214; G0463 ==

== ENCOUNTER → 2018-10-24 | Outpatient (CLI) | payer MEDICARE | END | disposition home or self-care (01) | LOC: PMGWOUND 10:33 | PROVIDERS: ATTEND Emergency Medicine Undersea and Hyperbaric Medicine | DX: E11.621 Type 2 diabetes mellitus with foot ulcer (principal); L97.411 Non-pressure chronic ulcer of right heel and midfoot limited to breakdown of skin; L97.421 Non-pressure chronic ulcer of left heel and midfoot limited to breakdown of skin; E11.65 Type 2 diabetes mellitus with hyperglycemia; E11.52 Type 2 diabetes mellitus with diabetic peripheral angiopathy with gangrene; I96 Gangrene, not elsewhere classified; I11.0 Hypertensive heart disease with heart failure; I50.9 Heart failure, unspecified; L84 Corns and callosities; E78.5 Hyperlipidemia, unspecified; I48.91 Unspecified atrial fibrillation; I42.9 Cardiomyopathy, unspecified; I25.10 Atherosclerotic heart disease of native coronary artery without angina pectoris; E66.01 Morbid (severe) obesity due to excess calories; Z68.43 Body mass index [BMI] 50.0-59.9, adult | CPT/HCPCS: 99213; G0463 ==

== ENCOUNTER → 2019-06-10 | Outpatient (CLI) | payer MEDICARE ==
[2019-04-09 11:00] VITALS: BP 154/62
[~2019-06-10] MED LIST changes: +ASPI-612 PO; +BUSP10TA PO; +DILT120C99 PO; +INSU100I13 SQ; +INSU100V11 IJ; +METO-239 PO; +TICA90TA PO
--- NOTE | 2019-06-10 11:29 | CARD ---
MR#: [id number] Date of Study: 06/10/2019 Ordering Physician: DICK LAZO, Referring Physician: DICK LAZO Tech: Arabella Rios RDCS APPROVED REPORT EXAM: Two-dimensional and M-mode echocardiogram with Doppler and color Doppler. Other Information Quality : Good Rhythm : LBBB INDICATION Atrial Fibrillation 2D DIMENSIONS RVDd3.6 (2.9-3.5cm)Left Atrium(2D)5.0 (1.6-4.0cm) IVSd1.4 (0.7-1.1cm)Aortic Root(2D)3.5 (2.0-3.7cm) LVDd4.8 (3.9-5.9cm)LVOT Diameter2.1 (1.8-2.4cm) PWd1.3 (0.7-1.1cm)LVDs3.7 (2.5-4.0cm) FS (%) 23.5 %SV51.3 ml LVEF(%)47.0 (>50%) M-Mode DIMENSIONS Aortic Cusp Exc1.17 (1.5-2.0cm) Aortic Valve AoV Peak Neil.228.3cm/sAoV VTI52.0cm AO Peak GR.20.8mmHgLVOT VTI 21.47cm AO Mean GR.12mmHgAVA (VTI)1.30cm2 Mitral Valve MV E Jgytlwuh662.9cm/sMV DECEL [id number] MV A Eeeqbndz29.6cm/sE/A Ratio4.2 TDI Lateral E' P. V6.53cm/sMedial E' P. V6.47cm/s E/Lateral E'24.8E/Medial E'25.0 Tricuspid Valve TR P. Njvdtojb452pu/sRAP DOKXUTMV6nnMj TR Peak Gr.03vxNgJNXQ61smWj LEFT VENTRICLE The left ventricle is normal size. There is mild concentric left ventricular hypertrophy. Left ventri renee systolic function is normal. The Ejection Fraction is 50-55%. Septal motion consistent with condu ction abnormality. RIGHT VENTRICLE The right ventricle is normal size. The right ventricular systolic function is normal. ATRIA The left atrium is moderately dilated. The right atrium size is normal. The interatrial septum is int act with no evidence for an atrial septal defect or patent foramen ovale as noted on 2-D or Doppler i maging. AORTIC VALVE The aortic valve is probably trileaflet and has restricted opening. Doppler and Color Flow revealed n o significant aortic regurgitation. Doppler and color-flow analysis revealed mild aortic stenosis. MITRAL VALVE The mitral valve is calcified but opens well. Mitral annular calcification is moderate. There is no evidence of mitral valve prolapse. There is no mitral valve stenosis. Doppler and Color-flow revealed mild mitral regurgitation. TRICUSPID VALVE The tricuspid valve is normal in structure and function. Doppler and Color Flow revealed mild tricusp id regurgitation. There is moderate pulmonary hypertension. The PA pressure was estimated at 45 mmHg. There is no tricuspid valve stenosis. PULMONIC VALVE The pulmonic valve is not well visualized. Doppler and Color Flow revealed mild pulmonic valvular reg urgitation. There is no pulmonic valvular stenosis. GREAT VESSELS The aortic root is normal in size. The ascending aorta is normal in size. The IVC is dilated. PERICARDIAL EFFUSION There is no evidence of significant pericardial effusion. Critical Notification Critical Value: No <Conclusion> Left ventricle systolic function is normal. The Ejection Fraction is 50-55%. Septal motion consistent with conduction abnormality. Doppler and color-flow analysis revealed mild aortic stenosis. Mild mitral regurgitation. Mild tricuspid regurgitation. There is moderate pulmonary hypertension. The PA pressure was estimated at 45 mmHg. There is no evidence of significant pericardial effusion. Signed by : Dick Lazo, Electronically Approved : 06/10/2019 11:28:41
== END | disposition home or self-care (01) ==
LOC: ECHO 09:45
PROVIDERS: ATTEND Internal Medicine Cardiovascular Disease
DX: I08.8 Other rheumatic multiple valve diseases (principal); I48.19 Other persistent atrial fibrillation
CPT/HCPCS: 93306

== ENCOUNTER 2019-07-08 08:14 | Observation (INO) | payer MEDICARE ==
[~2019-07-08] VITALS: Ht 177.8 cm; Wt 131.5 kg
[2019-07-08] VITALS (13 sets, daily range): BP systolic 127–178; BP diastolic 31–92
[~2019-07-08 08:14] MED LIST changes: +IODIXANOL 320 MG/ML 100 ML VIAL. ONE; +LIDOCAINE 1% Multi-Dose 20 ML VIAL. ONE; +POTA20TA4 PO; -POTA20TA82 PO
[2019-07-08 08:35] LABS: HEMATOCRIT 26.2 % (39.0-53.0); HEMOGLOBIN 8.5 g/dL (13.0-17.5); RED BLOOD COUNT 3.08 x10^6/uL (4.30-5.70); RED CELL DISTRIBUTION WIDTH 18.9 % (11.5-14.5); WHITE BLOOD COUNT 9.3 x10^3/uL (4.0-11.0)
[2019-07-08 08:41] LABS: CALCIUM 9.1 mg/dL (8.5-10.1); GFR 33.1; POTASSIUM 4.8 mmol/L (3.5-5.1)
[2019-07-08 08:45] LABS: PROTHROMBIN TIME PATIENT 14.3 SEC (11.7-14.0)
[2019-07-08] MEDS ORDERED: HEPARIN for IV BOLUS 10,000 UNIT/10 ML VIAL. ONE ×2 (11:10→11:37)
[2019-07-08] MEDS ORDERED: fentaNYL PF VIAL 250 MCG/5 ML VIAL ONE (11:10)
[2019-07-08] MEDS ORDERED: MIDAZOLAM HCL/PF 5 MG/5 ML VIAL. ONE (11:10)
[2019-07-08] MEDS ORDERED: CONTRAST GIVEN. MC PRN (11:30)
[2019-07-08] MEDS ORDERED: IODIXANOL 320 MG/ML 100 ML VIAL. IART ONE (11:30)
[2019-07-08] MEDS ORDERED: LIDOCAINE 1% Multi-Dose 20 ML VIAL. INJ ONE (11:30)
[2019-07-08] MEDS ORDERED: fentaNYL PF VIAL 250 MCG/5 ML VIAL IV ONE (11:30)
[2019-07-08] MEDS ORDERED: MIDAZOLAM HCL/PF 5 MG/5 ML VIAL. IV ONE (11:30)
[2019-07-08] MEDS ORDERED: NITROGLYCERIN 4 MG/20 ML SYRINGE for CATH LAB. ONE ×2 (11:37→12:00)
[2019-07-08] MEDS ORDERED: dilTIAZem IV PUSH 25 MG/5 ML VIAL ONE (11:37)
[2019-07-08] MEDS ORDERED: NITROGLYCERIN 200 MCG/2 ML SYRINGE FOR CATH/VASC LAB. ONE ×2 (11:50→14:35)
[2019-07-08] MEDS: IV NORMAL SALINE 1000ML BAG 1,000 ML IV SCH ×2 (12:00→22:08)
[2019-07-08] MEDS ORDERED: HEPARIN for IV BOLUS 10,000 UNIT/10 ML VIAL. IV ONE (12:00)
[2019-07-08] MEDS ORDERED: NITROGLYCERIN 200 MCG/2 ML SYRINGE FOR CATH/VASC LAB. IART ONE (12:00)
[2019-07-08] MEDS ORDERED: IV 1/2 NORMAL SALINE 1,000 ML IV SCH (12:56)
--- NOTE | 2019-07-08 12:56 | PDOC ---
MODERATE SEDATION ASSESSMENT RISKS/ALTERNATIVES Risks/Alternatives Risks and alternatives of this type of sedation and procedure discussed with: RISK/ALTERNATIVES: Patient H & P ON CHART H & P H & P on chart and reviewed for co-morbid conditions and appropriate labs. H&P ON CHART: Yes STATUS PREG STATUS ASSESSED: N/A MEDS/ALLERGIES REVIEWED Meds/Allergies Reviewed Medications and Allergies including time and route of recently administered narcotics and sedatives. MEDS/ALLERGIES REVIEWED: Yes ASA RATING ASA RATING: III AIRWAY ASSESSMENT Airway Assessment Airway patency, oral function limitations, presence of caps, crowns, dentures, partials, and ability to extend neck assessed. AIRWAY ASSESSMENT: Yes MALLAMPATI SCORE MALLAMPATI SCORE: II PRE-SEDATION ASSESSMENT PRE-SEDATION ASSESSMENT: Yes DICK LAZO MD Jul 08, 2019 12:56
[2019-07-08] MEDS ORDERED: NITROGLYCERIN SUBLINGUAL 0.4 MG BOTTLE OF 25. SL PRN (13:00)
[2019-07-08] MEDS ORDERED: ACETAMINOPHEN 325 MG TABLET. PO PRN (13:00)
--- NOTE | 2019-07-08 13:56 | CARD ---
MR#: [id number] Date of Study: 07/08/2019 Ordering Physician: DICK LAZO, Referring Physician: DICK LAZO Tech: SERGEI BYRNES RTR APPROVED REPORT Patient StatusOUT-PATIENT Coverer: SERGEI BYRNES RTR Procedure(s) performed: 1. Aortogram with bilateral lower extremity runoff 2. Successful orbital atherectomy/HAND KNITTER to right posterior tibial artery MODERATE SEDATION TIME: 82 MIN DOSE: 41.3 GYCM2 FLUORO TIME: 16.3 MIN CONTRAST: 142 VISI INDICATION FOR PROCEDURE The indication(s) include : Peripheral artery disease with nonhealing wounds . PROCEDURE NARRATIVE After explaining the risks, benefits and alternative options, informed consent was obtained from grzegorz ent. Patient was brought to the cardiac Strategic Planning Specialist and his left groin was prepped and draped in the usu al fashion. 20 mL of 2% lidocaine was infiltrated into the skin and subcutaneous tissues for local an esthesia. Arterial access was obtained in the left common femoral artery and a 5 Rwandan sheath was in serted. 5 [place]wandan pigtail catheter was used to perform aortogram with bilateral lower extremity runoff . The aortic doug was crossed using a 5 [place]andan crossover catheter was then exchanged to a long 4 Fr ench angled glide catheter and with the tip positioned in the right superficial femoral artery, selec tive right lower extremity angiography was performed. Contrast injections were performed through the sheath in the left groin post the end of procedure for left lower extremity angiography. The followin g findings were noted. FINDINGS 1. No significant stenosis involving the distal descending aorta 2. No significant stenosis involving bilateral common and external iliac arteries 3. No significant stenosis involving bilateral common femoral and superficial femoral arteries 4. No significant stenosis involving bilateral popliteal arteries 5. The right anterior tibial and peroneal arteries did not show any significant stenosis. The right posterior tibial artery showed 90% stenosis in the midsegment. 6. The left peroneal artery did not show any significant stenosis. The left posterior tibial artery showed a long 100% chronic total occlusion in the mid and distal segments. The left anterior tibial a rtery showed 100% chronic total occlusion in the very distal segment and dorsalis pedis. INTERVENTION The sheath in the left groin was exchanged to a 6 R[place]an 65 cm destination sheath and the tip was pos itioned in the right superficial femoral artery. The stenosis in the right posterior tibial artery wa s crossed with a viper guidewire. Multiple orbital atherectomy passes were then performed with 1.25 s MobifusionI Diamondback atherectomy catheter. Subsequently, the lesion was dilated with a 3.0 x 120 mm A Perfect [employer] Sull[place] balloon. Follow-up angiography showed resolution of the lesion with good distal flow. Pa tient tolerated the procedure well. Hemostasis in the left groin was achieved using Angio-Seal and ma nual compression. There were no immediate complications. Conclusion 1. Bilateral below the knee peripheral artery stenoses as described above 2. Successful orbital atherectomy/HAND KNITTER to right posterior tibial arteries for nonhealing wound on the right heel. Recommendations Vascular risk factor modification Consider HAND KNITTER to left posterior tibial artery if left heel wound recurs Signed by : Dick Lazo, Electronically Approved : 07/08/2019 13:56:31
--- NOTE | 2019-07-08 15:00 | NUR ---
Wound Care Wound care consult for current [facility] patient dressing change. Cleansed wound, applied trevon, Hydrofera blue, covered with ABD pad and secured with Kerlix. Pt will follow up in [facility] after discharge.
[2019-07-08] MEDS ORDERED: busPIRone 10 MG TABLET. PO PRN (20:45)
[2019-07-08] MEDS ORDERED: INSULIN GLARGINE SYRINGE. SQ SCH (21:00)
[2019-07-08] MEDS ORDERED: ATORVASTATIN CALCIUM 40 MG TABLET. PO SCH (21:00)
[2019-07-09 03:29] VITALS: BP 121/34
[2019-07-09 05:09] LABS: CALCIUM 8.2 mg/dL (8.5-10.1); CREATININE 1.9 mg/dL (0.7-1.3); GFR 35.1; POTASSIUM 4.1 mmol/L (3.5-5.1)
[2019-07-09] MEDS: NITROGLYCERIN OINT 1 GM PACKET. TP SCH ×3 (06:00→12:00)
[2019-07-09 07:55] VITALS: BP 143/46
[2019-07-09] MEDS: IV NORMAL SALINE 1000ML BAG 1,000 ML IV SCH (08:00)
[2019-07-09] MEDS ORDERED: POTASSIUM CHLORIDE 20 MEQ TABLET.ER. PO SCH (08:00)
[2019-07-09] MEDS: INSULIN LISPRO 300 UNITS/3 ML VIAL. SQ SCH ×2 (08:00→12:00)
[2019-07-09 08:26] LABS: HEMATOCRIT 23.4 % (39.0-53.0); HEMOGLOBIN 7.6 g/dL (13.0-17.5); RED BLOOD COUNT 2.74 x10^6/uL (4.30-5.70); RED CELL DISTRIBUTION WIDTH 18.7 % (11.5-14.5); WHITE BLOOD COUNT 7.7 x10^3/uL (4.0-11.0)
--- NOTE | 2019-07-09 08:57 | NUR ---
IP: Pt has a hx of mrsa in a toe/foot wound in 2014. Pt admitted with a non-healing wound. Pt to be in contact precautions until culture is verified.
[2019-07-09] MEDS ORDERED: FUROSEMIDE 40 MG TABLET. PO SCH (09:00)
[2019-07-09] MEDS ORDERED: METOPROLOL SUCC 24HR ER 25 MG TAB.ER.24H. PO SCH (09:00)
[2019-07-09] MEDS ORDERED: LOSARTAN POTASSIUM 50 MG TABLET. PO SCH (09:00)
[2019-07-09] MEDS ORDERED: ASPIRIN ENTERIC COATED 81 MG TABLET.DR. PO SCH (09:00)
[2019-07-09] MEDS ORDERED: TENOFOVIR ALAFENAMIDE FUMARATE 25 MG PO SCH (09:00)
[2019-07-09] MEDS ORDERED: hydroCHLOROthiazide 12.5 MG CAPSULE PO SCH (09:00)
[2019-07-09] MEDS ORDERED: ALLOPURINOL 100 MG TABLET. PO SCH (09:00)
--- NOTE | 2019-07-09 11:24 | PDOC3 ---
Discharge Summary Visit Information Date of Admission: Jul 08, 2019 Date of Discharge: Jul 09, 2019 Admitting Diagnosis: PAD, non-healing wound Admitting Diagnosis Comment: PAD Non-healing wound AFIB CAD s/p PCI/RHEA to LAD 04/08/19 Peripheral neuropathy Hypertension Hyperlipidemia Diabetes, II Final Diagnosis PAD Non-healing wound AFIB CAD s/p PCI/RHEA to LAD 04/08/19 Peripheral neuropathy Hypertension Hyperlipidemia Diabetes, II Brief Hospital Course Allergies Allergies Coded Allergies Type Severity Reaction Last Updated Verified I S O L A T I O N *CONTACT* Allergy Unknown 02/12/15 Yes No Known Medication Allergies Allergy Unknown 02/12/15 Yes Vital Signs Vital Signs Date Time Temp Pulse Resp B/P (MAP) Pulse Ox O2 Delivery O2 Flow Rate FiO2 07/09/19 09:45 74 143/46 07/09/19 07:55 98.9 20 95 Room Air 98.9 07/08/19 12:34 2.0 Lab Results Laboratory Tests Test 07/08/19 08:30 07/08/19 20:55 07/09/19 03:30 07/09/19 07:18 White Blood Count 9.3 x10^3/uL (4.0-11.0) 7.7 x10^3/uL (4.0-11.0) Red Blood Count 3.08 x10^6/uL (4.30-5.70) 2.74 x10^6/uL (4.30-5.70) Hemoglobin 8.5 g/dL (13.0-17.5) 7.6 g/dL (13.0-17.5) Hematocrit 26.2 % (39.0-53.0) 23.4 % (39.0-53.0) Mean Corpuscular Volume 85 fL (79-100) 85 fL (79-100) Mean Corpuscular Hemoglobin 28 pg (25-35) 28 pg (25-35) Mean Corpuscular Hemoglobin Concent 32 g/dL (31-37) 33 g/dL (31-37) Red Cell Distribution Width 18.9 % (11.5-14.5) 18.7 % (11.5-14.5) Platelet Count 239 x10^3/uL (140-400) 190 x10^3/uL (140-400) Prothrombin Time 14.3 SEC (11.7-14.0) Prothromb Time International Ratio 1.1 (0.8-1.1) Sodium Level 142 mmol/L (136-145) 142 mmol/L (136-145) Potassium Level 4.8 mmol/L (3.5-5.1) 4.1 mmol/L (3.5-5.1) Chloride Level 107 mmol/L (98-107) 108 mmol/L (98-107) Carbon Dioxide Level 25 mmol/L (21-32) 25 mmol/L (21-32) Anion Gap 10 (6-14) 9 (6-14) Blood Urea Nitrogen 74 mg/dL (8-26) 66 mg/dL (8-26) Creatinine 2.0 mg/dL (0.7-1.3) 1.9 mg/dL (0.7-1.3) Estimated GFR (Cockcroft-Gault) 33.1 35.1 Glucose Level 213 mg/dL (70-99) 133 mg/dL (70-99) Calcium Level 9.1 mg/dL (8.5-10.1) 8.2 mg/dL (8.5-10.1) Glucose (Fingerstick) 201 mg/dL (70-99) 87 mg/dL (70-99) Laboratory Tests Test 07/08/19 20:55 07/09/19 03:30 07/09/19 07:18 Glucose (Fingerstick) 201 mg/dL (70-99) 87 mg/dL (70-99) White Blood Count 7.7 x10^3/uL (4.0-11.0) Red Blood Count 2.74 x10^6/uL (4.30-5.70) Hemoglobin 7.6 g/dL (13.0-17.5) Hematocrit 23.4 % (39.0-53.0) Mean Corpuscular Volume 85 fL (79-100) Mean Corpuscular Hemoglobin 28 pg (25-35) Mean Corpuscular Hemoglobin Concent 33 g/dL (31-37) Red Cell Distribution Width 18.7 % (11.5-14.5) Platelet Count 190 x10^3/uL (140-400) Sodium Level 142 mmol/L (136-145) Potassium Level 4.1 mmol/L (3.5-5.1) Chloride Level 108 mmol/L (98-107) Carbon Dioxide Level 25 mmol/L (21-32) Anion Gap 9 (6-14) Blood Urea Nitrogen 66 mg/dL (8-26) Creatinine 1.9 mg/dL (0.7-1.3) Estimated GFR (Cockcroft-Gault) 35.1 Glucose Level 133 mg/dL (70-99) Calcium Level 8.2 mg/dL (8.5-10.1) Brief Hospital Course Mr. Nunn is a 73 old male, with a history of non-healing foot wounds, PAD s/p RHEA to the LAD, CAD, AFIB, hypertension, hyperlipidemia, and diabetes, II, who presented with to our office with persistent right foot wound. Recent arterial duplex scan did not show any major artery stenosis, but did show significant stenosis involving the right posterior tibial artery. COMPUTER APPLICATIONS DEVELOPER was recommend to improved blood flow and promote wound healing. Arteriogram notable for bilateral below the knee peripheral artery stenosis including 90% lesion in the rihgt posterior tibial artery midsegment and a long 100% TELETYPESETTER in the mid and distal segment of the left posterior tibial artery. Patient underwent successful orbital atherectomy/COMPUTER APPLICATIONS DEVELOPER to right posterior tibial arteries for nonhealing wound on the right heel. Tolerated procedure well and was monitored overnight without acute events. Lungs CTA. Left arteriotomy site soft, clean, and dry. No ecchymosis or hematoma present. Neurovascular status intact. Home medications resumed including DAPT with ASA and Plavix. Patient seen and examined. Agree with DRILL PRESS TENDER's assessment and plan. s/p Successful orbital atherectomy/COMPUTER APPLICATIONS DEVELOPER to right posterior tibial artery yesterday, presently doing well Follow-up with wound care team as previously scheduled We will consider COMPUTER APPLICATIONS DEVELOPER to left PT/AT if left leg wound recurs Discharge Information Condition at Discharge: Stable Follow Up: Weeks (6 weeks as scheduled.) Disposition/Orders: D/C to Home Scheduled Allopurinol (Allopurinol) 100 Mg Tablet, 100 MG PO DAILY, (Reported) Entered as Reported by: HERNANDEZ MALCOLM on 11/29/13 1203 Last Taken: Unknown Dose on 07/07/19 Last Action: Continued on 07/08/192040 by TIMMY FRANCISCO Aspirin (Aspirin Ec) 81 Mg Tablet., 1 TAB PO DAILY for antiplatelet, #30 Ref 3 (Reported) Entered as Reported by: NORAH LOTT on 04/09/19 1239 Last Taken: Unknown Dose on 07/07/19 Last Action: Continued on 07/08/192040 by TIMMY FRANCISCO Atorvastatin Calcium (Atorvastatin Calcium) 40 Mg Tablet, 40 MG PO HS, (Reported) Entered as Reported by: HERNANDEZ MALCOLM on 11/29/13 1203 Last Taken: Unknown Dose on 07/07/19 Last Action: Continued on 07/08/192040 by TIMMY FRANCISCO Clopidogrel Bisulfate (Clopidogrel) 75 Mg Tablet, 1 TAB PO DAILY for arterial disease for 30 Days, #30 Ref 1 (Reported) Entered as Reported by: YUDY SCOTT APRN on 07/09/19 1131 Furosemide (Furosemide) 40 Mg Tablet, 40 MG PO BID for FLUID RETENTION for 30 Days, (Reported) Entered as Reported by: HERNANDEZ MALCOLM on 11/29/13 1203 Last Taken: Unknown Dose on 07/07/19 Last Action: Continued on 07/08/192040 by TIMMY FRANCISCO Hydralazine Hcl (Hydralazine Hcl) 100 Mg Tablet, 1 TAB PO TID for HTN, #90 Ref 5 (Reported) Entered as Reported by: DANY KRAUSE RN on 04/06/191633 Last Taken: Unknown Dose on 07/07/19 Last Action: Converted on 07/08/192040 by TIMMY FRANCISCO Insulin Glargine,Hum.rec.anlog (Lantus Solostar) 100 Unit/1 Ml Insuln.pen, 30 UNIT SQ QHS for DM II, #15 Ref 3 (Reported) Entered as Reported by: DANY KRAUSE RN on 04/06/191633 Last Taken: 23 units on 07/07/19 Last Action: Converted on 07/08/192040 by TIMMY FRANCISCO Insulin Regular, Human (Novolin R) 100 Unit/1 Ml Vial, 10 UNIT IJ TIDAC for DM II, (Reported) Entered as Reported by: DANY KRAUSE RN on 04/06/191633 Last Taken: Unknown Dose on 07/07/19 Last Action: Continued on 07/08/192040 by TIMMY FRANCISCO Losartan/Hydrochlorothiazide (Losartan-Hctz 100-25 Mg Tab) 1 Each Tablet, 0.5 EACH PO DAILY for HTN for 30 Days, (Reported) Entered as Reported by: HERNANDEZ MALCOLM on 11/29/13 1203 Last Taken: Unknown Dose on 07/07/19 Last Action: Converted on 07/08/192040 by TIMMY FRANCISCO Metoprolol Succinate (Metoprolol Succinate ( Xl )) 25 Mg Tab.er.24h, 50 MG PO DAILY for AFIB, coronary artery disease for 30 Days, #60 Ref 2 Prescribed by: YUDY SCOTT APRN on 04/09/19 1114 Last Taken: 50mg on 07/07/19 Last Action: Continued on 07/08/192040 by TIMMY FRANCISCO Potassium Chloride (Potassium Chloride) 20 Meq Tablet.er, 20 MEQ PO DAILY for ELECTROLYTE BALANCE, (Reported) Entered as Reported by: HERNANDEZ MALCOLM on 11/29/13 1203 Last Taken: Unknown Dose on 07/07/19 Last Action: Converted on 07/08/192040 by TIMMY FRANCISCO Tenofovir Alafenamide Fumarate (Vemlidy) 25 Mg Tablet, 25 MG PO DAILY, (Reported) Entered as Reported by: PATRICK HURT on 03/22/18 2211 Last Taken: Unknown Dose on 07/07/19 Last Action: Converted on 07/08/192040 by TIMMY FRANCISCO Scheduled PRN Buspirone Hcl (Buspirone Hcl) 10 Mg Tablet, 1 TAB PO TID PRN PRN for ANXIETY / AGITATION, #60 Ref 1 (Reported) Entered as Reported by: DANY KRAUSE RN on 04/06/19 1634 Last Taken: Unknown Dose on 07/07/19 Last Action: Continued on 07/08/192040 by TIMMY FRANCISCO Patient Instructions Patient Instructions GENERAL INSTRUCTIONS: 1. Your dressing should be removed prior to leaving the hospital. 2. It is OK to shower the day after your procedure. 3. If you received stents, be sure to carry your stent information card with you in your wallet/purse at all times. 4. Call the office immediately at [phone] if you notice any fever or if there is redness, worsening tenderness/pain, increased bruising, or drainage from the puncture site. 5. Should you have bleeding from the site, lie down immediately & put pressure on the site. The pressure should be hard enough to stop the bleeding. Have the nearest person call 911. DO NOT try to drive to the ER with a ctive bleeding. 6. If you notice a change in color, coolness to touch, or loss of feeling in the affected extremity, come to the emergency room. Please have someone drive you or call 911 if no one is available. DO NOT drive yourself. 7. If you normally take glucophage (metformin), please do not take this medicine for 48 hours following your procedure. 8. DO NOT STOP TAKING YOUR PLAVIX OR ASPIRIN UNLESS IT IS CLEARED BY A BOX LIDDER OF YOUR BIN PILER AT OUR OFFICE. 9. QUIT SMOKING: the [place] [employer], [place] [employer], & [place] [employer] have cessation resources available on their websites 10. Please have someone available to drive you home from the hospital as you may be limited by sedation medications given during the procedure. Femoral (Groin) access: 1. Do no lifting, pushing, pulling, bending, stooping, or recurrent stair climbing for 3 days following your procedure. 2. Once past the first 3 days, do not do any HEAVY exertion or lifting for one week following the procedure. No gym workouts, running, lifting greater than a gallon of milk, etc 3. Do not submerge in bath or pool for one week. OK to drive 3 days following your procedure, but if going long distance, do not go alone & take hourly breaks to get out of car and walk around. Radial Artery (Wrist) access: 1. No pushing, pulling, lifting, typing, or anything that requires repetitive use/movement of the affected wrist for 3 days following your procedure. 2. OK to drive the day following your procedure. (This is because of effects of sedating medications.) Call the office at [phone] for any questions or concerns. YUDY SCOTT APRN Jul 09, 2019 11:24 DICK LAZO MD Jul 09, 2019 16:51
[2019-07-09] MEDS ORDERED: CLOP75TA PO (11:31)
--- NOTE | 2019-07-09 11:33 | DISCH ---
DISCHARGE INSTRUCTIONS Condition on Discharge Condition on Discharge: Stable Activity After Discharge Activity Instructions for Disc: Activity as tolerated Lifting Instructions after Dis: No heavy lifting, No pulling or pushing, Do not lift >10 pounds Weight Bearing Status after Di: As tolerated Diet after Discharge Diet after Discharge: Cardiac, Diabetic No Calorie Level Wound Incision Care Wound Care Equipment: Dressings Checks after Discharge Checks after discharge: Check blood press - daily Contacting the DR. after DC Call your doctor for: If your condition worsens YUDY SCOTT APRN Jul 09, 2019 11:33
[2019-07-09 11:45] VITALS: BP 159/38
--- NOTE | 2019-07-09 12:38 | NUR ---
Discharge Note: SAMEER HOLDEN [address] Discharge instructions and discharge home medications reviewed with Patient and a copy given. All questions have been answered and understanding verbalized. The following instructions and handouts were given: follow up instructions Discontinued lines and drains: 22 right hand, tip intact. patient tolerated well. Patient discharged to home with self care via sister.
[2019-07-10] MEDS ORDERED: CLOPIDOGREL BISULFATE 75 MG TABLET PO SCH (08:00)
== END 2019-07-09 15:11 | disposition home or self-care (01) ==
LOC: CCL 08:14 → 6 SOUTH 12:00
PROVIDERS: ADMIT Internal Medicine Cardiovascular Disease; ATTEND Internal Medicine Cardiovascular Disease
DX: I25.10 Atherosclerotic heart disease of native coronary artery without angina pectoris (principal); S81.809A Unspecified open wound, unspecified lower leg, initial encounter; I48.19 Other persistent atrial fibrillation; I10 Essential (primary) hypertension; E78.5 Hyperlipidemia, unspecified; E11.9 Type 2 diabetes mellitus without complications; F41.9 Anxiety disorder, unspecified; D64.9 Anemia, unspecified
CPT/HCPCS: 36415; 37229; 75630; 80048; 82962; 85027; 85610; 96372; 96374; C1724; C1725; C1760; C1769; C1892; C1894; G0269; G0378; G0379; J1644; J1815; J2250; J3010; J3490; J7030; Q9967; 99152; 99153; C1771

== ENCOUNTER → 2020-07-16 | Outpatient (CLI) | payer MEDICARE ==
[~2020-07-16] MED LIST changes: +AMLO-187 PO; -AMLO10TA8 PO; -ASPI-612 PO; +ASPI-886 PO; +CLOP75TA PO; -IODIXANOL 320 MG/ML 100 ML VIAL. ONE; -LIDOCAINE 1% Multi-Dose 20 ML VIAL. ONE
--- NOTE | 2020-07-16 13:32 | RAD ---
MR#: [id number] Date of Study: 07/16/2020 Ordering Physician: DICK LAZO, Referring Physician: DICK LAZO, Tech: Augustine Yepez MBA, RDMS, RVT, RDCS, RTR APPROVED REPORT Patient Location: OUT-PATIENT Laterality:Bilateral Indications cad Doppler Spectral Velocity Analysis Right Left pCCA 61/16 cm/spCCA 83/24 cm/s mCCA 82/19 cm/smCCA 92/25 cm/s dCCA 63/21 cm/sdCCA 104/19 cm/s Bulb 87/16 cm/sBulb 175/49 cm/s ECA 83/ cm/sECA 227/ cm/s pICA 148/35 cm/spICA 205/49 cm/s Dyan 174/45 cm/smICA 205/26 cm/s dICA 174/44 cm/sdICA 139/33 cm/s Vert. 43/ cm/sVert. 65/ cm/s Subcl. 90/ cm/sSubcl. 64/ cm/s ICA/CCA 2.12ICA/CCA 2.47 Findings Grayscale images demonstrate heavy calcification at the level of the carotid bulbs extending into the bilateral internal carotid arteries. Based on spectral waveforms and color Doppler there is overall 50 to 69% stenosis based on velocity c riteria. ICA to CCA ratios are moderately elevated at 2.1 bilaterally. Vertebral velocities are antegrade bilaterally. Critical Notification Critical Value: No <Conclusion> 1. Moderate atherosclerotic disease at the bilateral carotid bulbs and internal carotid arteries pro ximally. 2. Consider sequential monitoring for progression. Signed by : Cj Demarco, Electronically Approved : 07/16/2020 10:20:30
--- NOTE | 2020-07-16 16:44 | CARD ---
MR#: [id number] Date of Study: 07/16/2020 Ordering Physician: DICK PRINCE, Referring Physician: Raphael GONZALEZ: Jose Edward [facility] APPROVED REPORT EXAM: Two-dimensional and M-mode echocardiogram with Doppler and color Doppler. Other Information Quality : AverageHR: 61bpm Rhythm : Atrial Fibrillation INDICATION Abnormal ECG Atrial Fibrillation CAD 2D DIMENSIONS RVDd3.6 (2.9-3.5cm)Left Atrium(2D)5.1 (1.6-4.0cm) IVSd1.6 (0.7-1.1cm)Aortic Root(2D)4.0 (2.0-3.7cm) LVDd4.6 (3.9-5.9cm)LVOT Diameter2.3 (1.8-2.4cm) PWd1.6 (0.7-1.1cm)LA Thuytn27 (18-58mL) LVDs3.5 (2.5-4.0cm)FS (%) 23.7 % SV46.3 mlLVEF(%)47.5 (>50%) Aortic Valve AoV Peak Neil.291.2cm/sAoV VTI72.2cm AO Peak GR.34.0mmHgLVOT Peak Neil.91.8cm/s AO Mean GR.18mmHgAVA (VMAX)1.28cm2 Pulmonary Valve PV Peak Wxggrovj50.6cm/s Tricuspid Valve TR P. Mobbdunr236vh/sTR Peak Gr.60mmHg LEFT VENTRICLE The left ventricle is normal size. There is moderate concentric left ventricular hypertrophy. The lef t ventricular systolic function is normal. The Ejection Fraction is 55-60%. No regional wall motion a bnormalities noted. Cannot assess diastolic function due to atrial fibrillation. No left ventricle th rombus noted on this study. There is no ventricular septal defect visualized. There is no left ventri cular aneurysm. There is no mass noted in the left ventricle. RIGHT VENTRICLE The right ventricle is normal size. There is normal right ventricular wall thickness. The right ventr icular systolic function is normal. ATRIA The left atrium is moderately dilated. The right atrium is mildly dilated. There is a small sized PFO based on color doppler with [id number] shunting. AORTIC VALVE The aortic valve is moderately calcified. The aortic valve is trileaflet. Doppler and Color Flow reve aled trace aortic regurgitation. There is mild-moderate valvular aortic stenosis. Calculated aortic v alve area is 1.3 cm2 with maximum pressure gradient of 34 mmHg and mean pressure gradient of 18 mmHg. MITRAL VALVE Mitral annular calcification is mild to moderate. The mitral valve leaflets are normal in structure a nd function. There is no evidence of mitral valve prolapse. There is no mitral valve stenosis. Dopple r and Color-flow revealed mild mitral regurgitation. TRICUSPID VALVE The tricuspid valve is normal in structure and function. Doppler and Color Flow revealed moderate tri cuspid regurgitation with PAP of 68 mmHg. There is no tricuspid valve prolapse or vegetation. There i s no tricuspid valve stenosis. PULMONIC VALVE The pulmonary valve is normal in structure and function. There is no pulmonic valvular regurgitation. There is no pulmonic valvular stenosis. GREAT VESSELS The aortic root is mildly enlarged to 4.1 cm. The ascending aorta is Mildly dilated to 4.0 cm. The pu lmonary artery is normal. The IVC is normal in size and collapses <50% with inspiration. PERICARDIAL EFFUSION There is no pleural effusion. There is no evidence of significant pericardial effusion. Critical Notification Critical Value: No <Conclusion> The left ventricular systolic function is normal. The Ejection Fraction is 55-60%. No regional wall motion abnormalities noted. There is mild-moderate valvular aortic stenosis. Mild mitral regurgitation. Moderate tricuspid regurgitation with PAP of 68 mmHg. There is no evidence of significant pericardial effusion. Signed by : Dick Prince, Electronically Approved : 07/16/2020 16:43:11
== END ==
LOC: US 09:09
PROVIDERS: ATTEND Internal Medicine Cardiovascular Disease
DX: I08.3 Combined rheumatic disorders of mitral, aortic and tricuspid valves (principal); I65.23 Occlusion and stenosis of bilateral carotid arteries; I25.10 Atherosclerotic heart disease of native coronary artery without angina pectoris
CPT/HCPCS: 93306; 93880

== ENCOUNTER 2020-11-04 12:47 | Inpatient (IN) | payer MEDICARE ==
[2020-11-04] VITALS (9 sets, daily range): BP systolic 100–171; BP diastolic 52–70
[~2020-11-04] VITALS: Ht 170.2 cm; Wt 131.2 kg
--- NOTE | 2020-11-04 13:40 | PHYS DOC ---
Past Medical History Past Medical History: CAD, Diabetes-Type II, High Cholesterol, Hypertension Past Surgical History: No Surgical History Smoking Status: Never Smoker Alcohol Use: None Drug Use: None General Adult EDM: Chief Complaint: ABNORMAL LABS HPI: HPI: 75-year-old male presented emergency department with abnormal labs. He had his blood taken today which showed a hemoglobin below 7. He was referred for colonoscopy as he has had an anemia that has worsened. He reports being on Eliquis. He has A. fib but reports recently starting Eliquis. He also recently had a cardiac catheterization with stent placement. He denies having any knowledge of dark stools at home. He denies any pain at this time. Onset today. Location GI. Duration intermittent. No alleviating factors. Review of systems negative for chest pain shortness of breath abdominal pain vomiting diaphoresis fevers or chills. All other review of systems negative. ED course: 75-year-old male presenting with a worsening anemia. Blood type and cross ordered. Patient's heart rate is within normal notes. Temperature within normal limits. Blood pressure 120/50. Patient is on metoprolol. Here his fecal occult blood test is positive. Will admit the patient for IV blood transfusion and GI consultation for GI bleed. I spoke with Dr. Mccain who accepts patient for admission. We will place the patient on Protonix bolus and IV. Review of Systems: Review of Systems: Constitutional: Denies fever or chills. [] Eyes: Denies change in visual acuity. [] HENT: Denies nasal congestion or sore throat. [] Respiratory: Denies cough or shortness of breath. [] Cardiovascular: Denies chest pain or edema. [] GI: Denies abdominal pain, nausea, vomiting, bloody stools or diarrhea. [] : Denies dysuria. [] Musculoskeletal: Denies back pain or joint pain. [] Integument: Denies rash. [] Neurologic: Denies headache, focal weakness or sensory changes. [] Endocrine: Denies polyuria or polydipsia. [] Lymphatic: Denies swollen glands. [] Psychiatric: Denies depression or anxiety. [] Heart Score: C/O Chest Pain: No Risk Factors: Risk Factors: DM, Current or recent (<one month) smoker, HTN, HLP, family history of CAD, obesity. Risk Scores: Score 0 - 3: 2.5% MACE over next 6 weeks - Discharge Home Score 4 - 6: 20.3% MACE over next 6 weeks - Admit for Clinical Observation Score 7 - 10: 72.7% MACE over next 6 weeks - Early Invasive Strategies Allergies: Allergies: Allergies Coded Allergies Type Severity Reaction Last Updated Verified I S O L A T I O N *CONTACT* Allergy Unknown UNK 12/09/19 Yes No Known Medication Allergies Allergy Unknown K 12/09/19 Yes Physical Exam: PE: Constitutional: Well developed, well nourished, no acute distress, non-toxic appearance. [] HENT: Normocephalic, atraumatic, bilateral external ears normal, oropharynx moist, no oral exudates, nose normal. [] Eyes: PERRLA, EOMI, conjunctiva normal, no discharge. [] Neck: Normal range of motion, no tenderness, supple, no stridor. [] Cardiovascular:Heart rate regular rhythm, no murmur [] Lungs & Thorax: Bilateral breath sounds clear to auscultation [] Abdomen: Bowel sounds normal, soft, no tenderness, no masses, no pulsatile masses. [] No rebound tenderness or guarding Rectal exam performed in the presence of a female nurse shows no obvious hemorrhoids. The feces has no gross visual blood. Skin: Warm, dry, no erythema, no rash. [] Back: No tenderness, no CVA tenderness. [] Extremities: No tenderness, no cyanosis, no clubbing, ROM intact, no edema. [] Neurologic: Alert and oriented X 3, normal motor function, normal sensory function, no focal deficits noted. [] Psychologic: Affect normal, judgement normal, mood normal. [] EKG: EKG: [] EKG shows left bundle branch block pattern. Irregularly irregular rhythm. ST segments show repolarization. Scar Bosa negative. Not suggestive of acute ischemia. Radiology/Procedures: Radiology/Procedures: [] Course & Med Decision Making: Course & Med Decision Making Pertinent Labs and Imaging studies reviewed. (See chart for details) [] Dragon Disclaimer: Dragon Disclaimer: This electronic medical record was generated, in whole or in part, using a voice recognition dictation system. Departure Departure Impression: Primary Impression: GI bleed Additional Impression: Anemia Disposition: ADMITTED INPT THIS HOSP Admitting Physician: HIMS Condition: STABLE Referrals: BART TELLES MD (PCP) Critical Care Time Critical care time spent was 45 minutes exclusive of procedures. Time was spent evaluating the patient, ordering the administration of medications, reevaluating the patient, discussing with the admitting provider and documenting. INOCENTE ROSE MD Nov 04, 2020 13:40
[2020-11-04 14:12] LABS: FECAL OB PT POSITIVE (NEG)
[2020-11-04 14:17] LABS: BASO # 0.1 x10^3/uL (0.0-0.2); BASO % 2 % (0-3); EOS # 0.5 x10^3/uL (0.0-0.7); EOS % 5 % (0-3); LYMPH # 2.1 x10^3/uL (1.0-4.8); LYMPH % 21 % (24-48); MEAN CORPUSCULAR HEMOGLOBIN 30 pg (25-35); MEAN CORPUSCULAR HGB CONC 33 g/dL (31-37); MEAN CORPUSCULAR VOLUME 92 fL (79-100); MONO # 0.6 x10^3/uL (0.0-1.1); MONO % 6 % (0-9); NEUT # 6.6 x10^3/uL (1.8-7.7); NEUT % 66 % (31-73); PLATELET COUNT 236 x10^3/uL (140-400); RED BLOOD COUNT 2.23 x10^6/uL (4.30-5.70); RED CELL DISTRIBUTION WIDTH 17.7 % (11.5-14.5); WHITE BLOOD COUNT 9.9 x10^3/uL (4.0-11.0)
[2020-11-04 14:19] LABS: HEMATOCRIT 20.5 % (39.0-53.0); HEMOGLOBIN 6.7 g/dL (13.0-17.5)
[2020-11-04 14:26] LABS: CALCIUM 8.7 mg/dL (8.5-10.1); CREATININE 2.5 mg/dL (0.7-1.3); GFR 25.4; POTASSIUM 4.2 mmol/L (3.5-5.1)
[2020-11-04 14:29] LABS: PROTHROMBIN TIME PATIENT 20.6 SEC (11.7-14.0)
[2020-11-04 14:32] LABS: DIRECT BILIRUBIN 0.2 mg/dL (0.0-0.2); TOTAL BILIRUBIN 0.7 mg/dL (0.2-1.0); TOTAL PROTEIN 6.2 g/dL (6.4-8.2)
[2020-11-04] MEDS ORDERED: PANTOPRAZOLE IV PUSH 40 MG VIAL. IVP ONE (15:15)
[2020-11-04] MEDS ORDERED: IV NORMAL SALINE 1000ML BAG 1,000 ML IV ONE (15:15)
[2020-11-04] MEDS: PANTOPRAZOLE SODIUM IV DRIP 80 MG in IV NORMAL SALINE 100ML 100 ML IV SCH ×2 (15:23→23:47)
--- NOTE | 2020-11-04 15:23 | PDOC1 ---
History and Physical Date of Admission Date of Admission DATE: 11/04/20 TIME: 15:09 Identification/Chief Complaint Chief Complaint Weakness, anemia Source Source: Patient History of Present Illness History of Present Illness Mr Nunn is a 75yo [employer] w/ PMHx CAD s/p LAD stenting 2018, Afib, diastolic CHF, Diabetes-Type II, High Cholesterol, Hypertension, chronic bilateral foot wounds, h/o agent orange exposure who presents to ED with significant other c/o weakness and an outpatient Hb of 6.8. He has been feeling lightheaded and more short of breath lately but does not note any weight gain, orthopnea. He does have SIMPSON He was referred for colonoscopy in 2019 but due to COVID-19 it was deferred. On Eliquis for afib. Has been off brillinta after last year, does still take aspirin. He has not noted any blood in his stools, but they have been darker lately on deeper questioning. Review of systems negative for chest pain shortness of breath abdominal pain vomiting diaphoresis fevers or chills. All other review of systems negative. EKG appears to have left bundle branch block pattern. Irregularly irregular r hythm. ST segments show repolarization. Not suggestive of acute ischemia. Labs with WBC 9.9, Hb 6.7, platelets 236, INR 1.8, NA 139, K4.2, BUN 97, CR 2.5, glucose 193, albumin 3, troponin 0 Temperature within normal limits. Blood pressure 120/50. Patient is on metoprolol. Here his fecal occult blood test is positive. Started on Protonix bolus and IV and admitted for further care. Past Medical History Cardiovascular: AFIB, CHF, HTN, Hyperlipidemia, Other Psych: Anxiety Renal/: Chronic renal insuff, Other Endocrine: Diabetes Past Surgical History Past Surgical History: Other Family History Family History: Heart Disease, Hypertension Social History Smoke: No ALCOHOL: none Drugs: None Current Medications Current Medications Current Medications Pantoprazole Sodium 80 mg/ Sodium Chloride 100 ml @ 10 mls/hr Q10H IV ; Start 11/04/20 at 15:15 Pantoprazole Sodium (PROTONIX VIAL for IV PUSH) 80 mg 1X ONCE IVP ; Start 11/04/20 at 15:15; Stop 11/04/20 at 15:16 Active Scripts Active Metoprolol Succinate ( Xl ) (Metoprolol Succinate) 25 Mg Tab.er.24h 50 Mg PO DAILY 30 Days Reported Clopidogrel (Clopidogrel Bisulfate) 75 Mg Tablet 1 Tab PO DAILY 30 Days Aspirin Ec (Aspirin) 81 Mg Tablet.dr 1 Tab PO DAILY Novolin R (Insulin Regular, Human) 100 Unit/1 Ml Vial 10 Unit IJ TIDAC Lantus Solostar (Insulin Glargine,Hum.rec.anlog) 100 Unit/1 Ml Insuln.pen 30 Unit SQ QHS Hydralazine Hcl 100 Mg Tablet 1 Tab PO TID Buspirone Hcl 10 Mg Tablet 1 Tab PO TID PRN PRN Vemlidy (Tenofovir Alafenamide Fumarate) 25 Mg Tablet 25 Mg PO DAILY Potassium Chloride 20 Meq Tablet.er 20 Meq PO DAILY Atorvastatin Calcium 40 Mg Tablet 40 Mg PO HS Losartan-Hctz 100-25 Mg Tab (Losartan/Hydrochlorothiazide) 1 Each Tablet 0.5 Each PO DAILY 30 Days Allopurinol 100 Mg Tablet 100 Mg PO DAILY Furosemide 40 Mg Tablet 40 Mg PO BID 30 Days Allergies Allergies: Coded Allergies: I S O L A T I O N *CONTACT* (Verified Allergy, Unknown, UNK, 12/09/19) MRSA + No Known Medication Allergies (Verified Allergy, Unknown, UNK, 12/09/19) ROS General: YES: Fatigue, Malaise; No: Chills, Night Sweats, Appetite, Other PSYCHOLOGICAL ROS: No: Anxiety, Behavioral Disorder, Concentration difficultie, Decreased libido, Depression, Disorientation, Hallucinations, Hostility, Irritablity, Memory difficulties, Mood Swings, Obsessive thoughts, Physical abuse, Sexual abuse, Sleep disturbances, Suicidal ideation, Other Eyes: No Blurry vision, No Decreased vision, No Double vision, No Dry eyes, No Excessive tearing, No Eye Pain, No Itchy Eyes, No Loss of vision, No Photophobia, No Scotomata, No Uses contacts, No Uses glasses, No Other HEENT: No: Heacaches, Visual Changes, Hearing change, Nasal congestion, Nasal discharge, Oral lesions, Sinus pain, Sore Throat, Epistaxis, Sneezing, Snoring, Tinnitus, Vertigo, Vocal changes, Other ALLERGY AND IMMUNOLOGY: No: Hives, Insect Bite Sensitivity, Itchy/Watery Eyes, Nasal Congestion, Post Nasal Drip, Seasonal Allergies, Other Hematological and Lymphatic: No: Bleeding Problems, Blood Clots, Blood Transfusions, Brusing, Night Sweats, Pallor, Swollen Lymph Nodes, Other ENDOCRINE: No: Breast Changes, Galactorrhea, Hair Pattern Changes, Hot Flashes, Malaise/lethargy, Mood Swings, Palpitations, Polydipsia/polyuria, Skin Changes, Temperature Intolerance, Unexpected Weight Changes, Other Breast: No New/Changing Breast Lumps, No Nipple changes, No Nipple discharge, No Other Respiratory: No: Cough, Hemoptysis, Orthopnea, Pleuritic Pain, Shortness of breath, SOB with excertion, Sputum Changes, Stridor, Tachypnea, Wheezing, Other Cardiovascular: No Chest Pain, No Palpitations, No Orthopnea, No Paroxysmal Noc. Dyspnea, No Edema, No Lt Headedness, No Other Gastrointestinal: No Nausea, No Vomiting, No Abdominal Pain, No Diarrhea, No Constipation, No Melena, No Hematochezia, No Other Genitourinary: No Dysuria, No Frequency, No Incontinence, No Hematuria, No Retention, No Discharge, No Urgency, No Pain, No Flank Pain, No Other, No , No , No , No , No , No , No Musculoskeletal: No Gait Disturbance, No Joint Pain, No Joint Stiffness, No Joint Swelling, No Muscle Pain, No Muscular Weakness, No Pain In:, No Swelling In:, No Other Neurological: No Behavorial Changes, No Bowel/Bladder ControlChng, No Confusion, No Dizziness, No Gait Disturbance, No Headaches, No Impaired Coord/balance, No Memory Loss, No Numbness/Tingling, No Seizures, No Speech Problems, No Tremors, No Visual Changes, No Weakness, No Other Skin: No Dry Skin, No Eczema, No Hair Changes, No Lumps, No Mole Changes, No Mottling, No Nail Changes, No Pruritus, No Rash, No Skin Lesion Changes, No Other, No Acne Physical Exam General: Alert, Oriented X3, Cooperative, mild distress HEENT: Atraumatic, PERRLA, EOMI, Mucous membr. moist/pink Lungs: Clear to auscultation, Normal air movement Heart: irregularly irregular Abdomen: Normal bowel sounds, Soft, No tenderness, No hepatosplenomegaly, No masses Male Genitals Exam: normal genitalia, normal prostate Rectal Exam: other (hemoccult postive) Extremities: No clubbing, No cyanosis, No edema, Normal pulses, No tenderness/swelling Skin: No rashes, No significant lesion, Other (Bilateral healing foot ulcers) Neuro: Normal gait, Normal speech, Strength at 5/5 X4 ext, Normal tone, Sensation intact, Cranial nerves 3-12 NL, Reflexes 2+ Psych/Mental Status: Mental status NL, Mood NL Vitals Vitals Vital Signs Date Time Temp Pulse Resp B/P (MAP) Pulse Ox O2 Delivery O2 Flow Rate FiO2 11/04/20 13:35 97.6 64 20 121/50 (73) 96 Room Air 97.6 Labs Labs Laboratory Tests Test 11/04/20 13:53 11/04/20 14:10 Stool Occult Blood Positive (NEG) White Blood Count 9.9 x10^3/uL (4.0-11.0) Red Blood Count 2.23 x10^6/uL (4.30-5.70) Hemoglobin 6.7 g/dL (13.0-17.5) Hematocrit 20.5 % (39.0-53.0) Mean Corpuscular Volume 92 fL (79-100) Mean Corpuscular Hemoglobin 30 pg (25-35) Mean Corpuscular Hemoglobin Concent 33 g/dL (31-37) Red Cell Distribution Width 17.7 % (11.5-14.5) Platelet Count 236 x10^3/uL (140-400) Neutrophils (%) (Auto) 66 % (31-73) Lymphocytes (%) (Auto) 21 % (24-48) Monocytes (%) (Auto) 6 % (0-9) Eosinophils (%) (Auto) 5 % (0-3) Basophils (%) (Auto) 2 % (0-3) Neutrophils # (Auto) 6.6 x10^3/uL (1.8-7.7) Lymphocytes # (Auto) 2.1 x10^3/uL (1.0-4.8) Monocytes # (Auto) 0.6 x10^3/uL (0.0-1.1) Eosinophils # (Auto) 0.5 x10^3/uL (0.0-0.7) Basophils # (Auto) 0.1 x10^3/uL (0.0-0.2) Prothrombin Time 20.6 SEC (11.7-14.0) Prothromb Time International Ratio 1.8 (0.8-1.1) Activated Partial Thromboplast Time 38 SEC (24-38) Sodium Level 139 mmol/L (136-145) Potassium Level 4.2 mmol/L (3.5-5.1) Chloride Level 105 mmol/L (98-107) Carbon Dioxide Level 26 mmol/L (21-32) Anion Gap 8 (6-14) Blood Urea Nitrogen 97 mg/dL (8-26) Creatinine 2.5 mg/dL (0.7-1.3) Estimated GFR (Cockcroft-Gault) 25.4 Glucose Level 193 mg/dL (70-99) Calcium Level 8.7 mg/dL (8.5-10.1) Total Bilirubin 0.7 mg/dL (0.2-1.0) Direct Bilirubin 0.2 mg/dL (0.0-0.2) Aspartate Amino Transf (AST/SGOT) 17 U/L (15-37) Alanine Aminotransferase (ALT/SGPT) 17 U/L (16-63) Alkaline Phosphatase 104 U/L (46-116) Troponin I Quantitative < 0.017 ng/mL (0.000-0.055) Total Protein 6.2 g/dL (6.4-8.2) Albumin 3.0 g/dL (3.4-5.0) Lipase 108 U/L (73-393) Laboratory Tests Test 11/04/20 13:53 11/04/20 14:10 Stool Occult Blood Positive (NEG) White Blood Count 9.9 x10^3/uL (4.0-11.0) Red Blood Count 2.23 x10^6/uL (4.30-5.70) Hemoglobin 6.7 g/dL (13.0-17.5) Hematocrit 20.5 % (39.0-53.0) Mean Corpuscular Volume 92 fL (79-100) Mean Corpuscular Hemoglobin 30 pg (25-35) Mean Corpuscular Hemoglobin Concent 33 g/dL (31-37) Red Cell Distribution Width 17.7 % (11.5-14.5) Platelet Count 236 x10^3/uL (140-400) Neutrophils (%) (Auto) 66 % (31-73) Lymphocytes (%) (Auto) 21 % (24-48) Monocytes (%) (Auto) 6 % (0-9) Eosinophils (%) (Auto) 5 % (0-3) Basophils (%) (Auto) 2 % (0-3) Neutrophils # (Auto) 6.6 x10^3/uL (1.8-7.7) Lymphocytes # (Auto) 2.1 x10^3/uL (1.0-4.8) Monocytes # (Auto) 0.6 x10^3/uL (0.0-1.1) Eosinophils # (Auto) 0.5 x10^3/uL (0.0-0.7) Basophils # (Auto) 0.1 x10^3/uL (0.0-0.2) Prothrombin Time 20.6 SEC (11.7-14.0) Prothromb Time International Ratio 1.8 (0.8-1.1) Activated Partial Thromboplast Time 38 SEC (24-38) Sodium Level 139 mmol/L (136-145) Potassium Level 4.2 mmol/L (3.5-5.1) Chloride Level 105 mmol/L (98-107) Carbon Dioxide Level 26 mmol/L (21-32) Anion Gap 8 (6-14) Blood Urea Nitrogen 97 mg/dL (8-26) Creatinine 2.5 mg/dL (0.7-1.3) Estimated GFR (Cockcroft-Gault) 25.4 Glucose Level 193 mg/dL (70-99) Calcium Level 8.7 mg/dL (8.5-10.1) Total Bilirubin 0.7 mg/dL (0.2-1.0) Direct Bilirubin 0.2 mg/dL (0.0-0.2) Aspartate Amino Transf (AST/SGOT) 17 U/L (15-37) Alanine Aminotransferase (ALT/SGPT) 17 U/L (16-63) Alkaline Phosphatase 104 U/L (46-116) Troponin I Quantitative < 0.017 ng/mL (0.000-0.055) Total Protein 6.2 g/dL (6.4-8.2) Albumin 3.0 g/dL (3.4-5.0) Lipase 108 U/L (73-393) VTE Prophylaxis Ordered VTE Prophylaxis Devices: Yes VTE Pharmacological Prophylaxi: Yes Assessment/Plan Assessment/Plan A/P: Acute blood loss anemia - symptomatic. Will transfuse. Goal Hb > 8 give his CAD history. will consult GI for concern for UGIB given his uremia and consult cardiology for recs on eliquis longer term. IV protonix and blood transfusion ordered. REBECCA - vasomotor nephropathy likely related to above, will not overhydrate given his CHF history CAD s/p LAD stent 04/08/2019 - Hold ASA for acute bleed. Hold BB for low BP Diabetes mellitus, type 2 - 19 year history, will place on basal insulin + sliding scale q 6 hours Peripheral neuropathy - with bilateral foot wounds Peripheral vascular disease - stable Morbid obesity - counseled on weight loss Hypertension. Afib - rate controlled. 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 Tinnitus - stable FEN - Clear liquid, NPO after midnight PPX - SCDs, protonix IV FULL CODE Dispo - inpatient Justifications for Admission Other Justification JAKE PATTON MD Nov 04, 2020 15:23
[2020-11-04] MEDS ORDERED: ONDANSETRON PF 4 MG/2 ML VIAL. IV PRN (17:30)
[2020-11-04] MEDS ORDERED: DEXTROSE 50% 25 GM / 50ML DISP.SYRIN. IV PRN (17:30)
[2020-11-04] MEDS ORDERED: ACETAMINOPHEN 650 MG SUPP.RECT. PR PRN (17:30)
[2020-11-04] MEDS ORDERED: fentaNYL PF VIAL 100 MCG/2 ML VIAL IVP PRN (17:30)
[2020-11-04] MEDS: INSULIN LISPRO 300 UNITS/3 ML VIAL. SQ SCH (21:29)
[2020-11-04] MEDS: INSULIN GLARGINE SYRINGE. SQ SCH (21:30)
[2020-11-04] MEDS ORDERED: HYDR12.58 PO (23:48)
[2020-11-04] MEDS ORDERED: LOSA-73 PO (23:48)
[2020-11-04] MEDS ORDERED: APIX5TAB PO (23:48)
[2020-11-04] MEDS ORDERED: FERR160T5 PO (23:48)
[2020-11-04] MEDS ORDERED: HYDR-2869 PO (23:48)
[2020-11-05] VITALS (14 sets, daily range): BP systolic 126–190; BP diastolic 35–65
[2020-11-05] MEDS ORDERED: ENTE0.5T4 PO (00:22)
--- NOTE | 2020-11-05 04:28 | NUR ---
Healed rt heel/plantar wound, multiple scabbed areas to lower extremities. Photographed but no available cartridge to print pics. Changed dressings. Pt claimed its more for protection.
[2020-11-05] MEDS: INSULIN LISPRO 300 UNITS/3 ML VIAL. SQ SCH ×4 (06:00→18:00)
[2020-11-05 06:21] LABS: BASO # 0.1 x10^3/uL (0.0-0.2); BASO % 1 % (0-3); EOS # 0.5 x10^3/uL (0.0-0.7); EOS % 6 % (0-3); LYMPH # 2.5 x10^3/uL (1.0-4.8); LYMPH % 26 % (24-48); MEAN CORPUSCULAR HEMOGLOBIN 29 pg (25-35); MEAN CORPUSCULAR HGB CONC 33 g/dL (31-37); MEAN CORPUSCULAR VOLUME 90 fL (79-100); MONO # 0.8 x10^3/uL (0.0-1.1); MONO % 9 % (0-9); NEUT # 5.6 x10^3/uL (1.8-7.7); NEUT % 59 % (31-73); PLATELET COUNT 225 x10^3/uL (140-400); RED BLOOD COUNT 2.31 x10^6/uL (4.30-5.70); RED CELL DISTRIBUTION WIDTH 17.5 % (11.5-14.5); WHITE BLOOD COUNT 9.5 x10^3/uL (4.0-11.0)
[2020-11-05 06:28] LABS: ALBUMIN 2.8 g/dL (3.4-5.0); ALBUMIN/GLOBULIN RATIO 0.9 (1.0-1.7); CALCIUM 8.1 mg/dL (8.5-10.1); CREATININE 2.4 mg/dL (0.7-1.3); GFR 26.7; POTASSIUM 4.2 mmol/L (3.5-5.1); TOTAL PROTEIN 5.8 g/dL (6.4-8.2)
[2020-11-05 06:37] LABS: HEMOGLOBIN 6.8 g/dL (13.0-17.5)
[2020-11-05 06:38] LABS: HEMATOCRIT 20.9 % (39.0-53.0)
[2020-11-05] MEDS ORDERED: FUROSEMIDE 40 MG/4 ML VIAL. IVP ONE (07:00)
--- NOTE | 2020-11-05 08:39 | PDOC2 ---
GI CONSULT Date of Service: DATE: 11/05/20 TIME: 08:33 Reason For Consult: GI Bleed HPI: HPI: Pleasant 75 y/o male to ER yesterday w/ weakness and anemia noted on outpt labs. H/o CAD and A Fib on Eliquis and ASA. Denies hematemesis, hematochezia, and melena. No reflux/heartburn, dysphagia, n/v, abd pain, diarrhea, constipation, change in appetite, or weight loss. No previous EGD or colonoscopy. No GB, liver, pancreas, or PUD history. No NSAIDs. PMH: PMH: CAD w/ stent, PVD, A Fib, CHF, DM, HTN, HLD, anxiety, neuropathy, MRSA cardiac cath FH: Family History: Cancer (father - pancreas) Social History: Smoke: No ALCOHOL: none Drugs: None ROS: GEN: Denies fevers, chills, sweats HEENT: Denies blurred vision, sore throat CV: Denies chest pain RESP: Denies shortness of air, cough GI: Per HPI : Denies hematuria, dysuria ENDO: Denies weight changes NEURO: Denies confusion, dizziness MSK: +weakness SKIN: +foot ulcers Vitals: Vitals: Vital Signs Date Time Temp Pulse Resp B/P (MAP) Pulse Ox O2 Delivery O2 Flow Rate FiO2 11/05/20 07:00 98.0 65 18 190/55 (100) 96 Room Air 98.0 Labs: Labs: Laboratory Tests Test 11/04/20 13:53 11/04/20 14:10 11/04/20 19:56 11/05/20 00:09 Stool Occult Blood Positive (NEG) White Blood Count 9.9 x10^3/uL (4.0-11.0) Red Blood Count 2.23 x10^6/uL (4.30-5.70) Hemoglobin 6.7 g/dL (13.0-17.5) Hematocrit 20.5 % (39.0-53.0) Mean Corpuscular Volume 92 fL (79-100) Mean Corpuscular Hemoglobin 30 pg (25-35) Mean Corpuscular Hemoglobin Concent 33 g/dL (31-37) Red Cell Distribution Width 17.7 % (11.5-14.5) Platelet Count 236 x10^3/uL (140-400) Neutrophils (%) (Auto) 66 % (31-73) Lymphocytes (%) (Auto) 21 % (24-48) Monocytes (%) (Auto) 6 % (0-9) Eosinophils (%) (Auto) 5 % (0-3) Basophils (%) (Auto) 2 % (0-3) Neutrophils # (Auto) 6.6 x10^3/uL (1.8-7.7) Lymphocytes # (Auto) 2.1 x10^3/uL (1.0-4.8) Monocytes # (Auto) 0.6 x10^3/uL (0.0-1.1) Eosinophils # (Auto) 0.5 x10^3/uL (0.0-0.7) Basophils # (Auto) 0.1 x10^3/uL (0.0-0.2) Prothrombin Time 20.6 SEC (11.7-14.0) Prothromb Time International Ratio 1.8 (0.8-1.1) Activated Partial Thromboplast Time 38 SEC (24-38) Sodium Level 139 mmol/L (136-145) Potassium Level 4.2 mmol/L (3.5-5.1) Chloride Level 105 mmol/L (98-107) Carbon Dioxide Level 26 mmol/L (21-32) Anion Gap 8 (6-14) Blood Urea Nitrogen 97 mg/dL (8-26) Creatinine 2.5 mg/dL (0.7-1.3) Estimated GFR (Cockcroft-Gault) 25.4 Glucose Level 193 mg/dL (70-99) Calcium Level 8.7 mg/dL (8.5-10.1) Total Bilirubin 0.7 mg/dL (0.2-1.0) Direct Bilirubin 0.2 mg/dL (0.0-0.2) Aspartate Amino Transf (AST/SGOT) 17 U/L (15-37) Alanine Aminotransferase (ALT/SGPT) 17 U/L (16-63) Alkaline Phosphatase 104 U/L (46-116) Troponin I Quantitative < 0.017 ng/mL (0.000-0.055) Total Protein 6.2 g/dL (6.4-8.2) Albumin 3.0 g/dL (3.4-5.0) Lipase 108 U/L (73-393) Glucose (Fingerstick) 219 mg/dL (70-99) 149 mg/dL (70-99) Test 11/05/20 04:05 11/05/20 06:08 White Blood Count 9.5 x10^3/uL (4.0-11.0) Red Blood Count 2.31 x10^6/uL (4.30-5.70) Hemoglobin 6.8 g/dL (13.0-17.5) Hematocrit 20.9 % (39.0-53.0) Mean Corpuscular Volume 90 fL (79-100) Mean Corpuscular Hemoglobin 29 pg (25-35) Mean Corpuscular Hemoglobin Concent 33 g/dL (31-37) Red Cell Distribution Width 17.5 % (11.5-14.5) Platelet Count 225 x10^3/uL (140-400) Neutrophils (%) (Auto) 59 % (31-73) Lymphocytes (%) (Auto) 26 % (24-48) Monocytes (%) (Auto) 9 % (0-9) Eosinophils (%) (Auto) 6 % (0-3) Basophils (%) (Auto) 1 % (0-3) Neutrophils # (Auto) 5.6 x10^3/uL (1.8-7.7) Lymphocytes # (Auto) 2.5 x10^3/uL (1.0-4.8) Monocytes # (Auto) 0.8 x10^3/uL (0.0-1.1) Eosinophils # (Auto) 0.5 x10^3/uL (0.0-0.7) Basophils # (Auto) 0.1 x10^3/uL (0.0-0.2) Sodium Level 141 mmol/L (136-145) Potassium Level 4.2 mmol/L (3.5-5.1) Chloride Level 108 mmol/L (98-107) Carbon Dioxide Level 24 mmol/L (21-32) Anion Gap 9 (6-14) Blood Urea Nitrogen 100 mg/dL (8-26) Creatinine 2.4 mg/dL (0.7-1.3) Estimated GFR (Cockcroft-Gault) 26.7 BUN/Creatinine Ratio 42 (6-20) Glucose Level 114 mg/dL (70-99) Calcium Level 8.1 mg/dL (8.5-10.1) Total Bilirubin 1.0 mg/dL (0.2-1.0) Aspartate Amino Transf (AST/SGOT) 15 U/L (15-37) Alanine Aminotransferase (ALT/SGPT) 16 U/L (16-63) Alkaline Phosphatase 89 U/L (46-116) Total Protein 5.8 g/dL (6.4-8.2) Albumin 2.8 g/dL (3.4-5.0) Albumin/Globulin Ratio 0.9 (1.0-1.7) Glucose (Fingerstick) 119 mg/dL (70-99) Allergies: Coded Allergies: I S O L A T I O N *CONTACT* (Verified Allergy, Unknown, UNK, 12/09/19) MRSA + No Known Medication Allergies (Verified Allergy, Unknown, UNK, 12/09/19) Medications: Current Medications Medications (Trade) Dose Ordered Sig/Redd Route PRN Reason Start Time Stop Time Status Last Admin Dose Admin Pantoprazole Sodium 80 mg/ Sodium Chloride 100 ml @ 10 mls/hr Q10H IV 11/04/20 15:15 11/04/20 23:47 Pantoprazole Sodium (PROTONIX VIAL for IV PUSH) 80 mg 1X ONCE IVP 11/04/20 15:15 11/04/20 15:16 DC 11/04/20 15:23 Sodium Chloride 1,000 ml @ 1,000 mls/hr 1X ONCE IV 11/04/20 15:15 11/04/20 16:14 DC 11/04/20 15:22 Insulin Glargine (Lantus Syringe) 15 unit QHS SQ 11/04/20 21:00 11/04/20 21:30 Insulin Human Lispro (HumaLOG) 0-9 UNITS Q6HRS SQ 11/04/20 18:00 11/04/20 21:29 Imaging: Imaging: - PE: GEN: NAD HEENT: Atraumatic, PERRL LUNGS: CTAB anteriorly HEART: irregular +murm ABD: NABS, S/ND, obese/large EXTREMITY: No edema NEURO/PSYCH: A & O 3 A/P: A/P: Weakness Chronic anemia - Hgb in 7-8 range in Dec, now 6s CAD, A Fib, CKD (BUN 100), PVD, DM w/ chronic wounds - on Eliquis, ASA - INR 1.8 CRC screen - none -- EGD this morning pending COVID swab. Continue transfusions, PPI. Hold Eliquis and ASA. Can check anemia parameters for completeness (though has received transfusion). FABBY ROBERTSON Nov 05, 2020 08:39
[2020-11-05] MEDS: METOPROLOL SUCC 24HR ER 50 MG TAB.ER.24H. PO SCH (09:00)
[2020-11-05] MEDS ORDERED: PROPOFOL 10 MG/ML (20ML) VIAL. IV ONE (09:27)
[2020-11-05] MEDS ORDERED: LIDOCAINE 2% PF 5 ML VIAL. ONE (09:27)
--- NOTE | 2020-11-05 09:58 | PDOC4 ---
Operative Note Operative Note EGD with biopsies/APC cautery Medications propofol per anesthesia Pre-op dx acute blood loss anemia Post-op dx gastritis s/p bx antral gastric ulcer s/p APC treatment Plan resume diet PPI s/p therapy blood transfusional support PHILLIP FLETCHER MD Nov 05, 2020 09:58
--- NOTE | 2020-11-05 10:39 | PDOC ---
[employer] PROGRESS NOTE Date of Service DOS: DATE: 11/05/20 TIME: 10:36 Chief Complaint Chief Complaint A/P: Acute blood loss anemia - symptomatic. Will transfuse. Goal Hb > 8 give his CAD history. will consult GI for concern for UGIB given his uremia and consult cardiology for recs on eliquis longer term. IV protonix and blood transfusion ordered. REBECCA - vasomotor nephropathy likely related to above, will not overhydrate given his CHF history CAD s/p LAD stent 04/08/2019 - Hold ASA for acute bleed. Hold BB for low BP Diabetes mellitus, type 2 - 19 year history, will place on basal insulin + sliding scale q 6 hours Peripheral neuropathy - with bilateral foot wounds Peripheral vascular disease - stable Morbid obesity - counseled on weight loss Hypertension. Afib - rate controlled. 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 Tinnitus - stable FEN - Clear liquid, NPO after midnight PPX - SCDs, protonix IV FULL CODE Dispo - inpatient History of Present Illness History of Present Illness Mr Nunn is a 75yo [employer] w/ PMHx CAD s/p LAD stenting 2018, Afib, diastolic CHF, Diabetes-Type II, High Cholesterol, Hypertension, chronic bilateral foot wounds, h/o agent orange exposure who presents to ED with significant other c/o weakness and an outpatient Hb of 6.8. He has been feeling lightheaded and more short of breath lately but does not note any weight gain, orthopnea. He does have SIMPSON He was referred for colonoscopy in 2019 but due to COVID-19 it was deferred. On Eliquis for afib. Has been off brillinta after last year, does still take aspirin. He has not noted any blood in his stools, but they have been darker lately on deeper questioning. Review of systems negative for chest pain shortness of breath abdominal pain vomiting diaphoresis fevers or chills. All other review of systems negative. EKG appears to have left bundle branch block pattern. Irregularly irregular rhythm. ST segments show repolarization. Not suggestive of acute ischemia. Labs with WBC 9.9, Hb 6.7, platelets 236, INR 1.8, NA 139, K4.2, BUN 97, CR 2.5, glucose 193, albumin 3, troponin 0 Temperature within normal limits. Blood pressure 120/50. Patient is on metoprolol. Here his fecal occult blood test is positive. Started on Protonix bolus and IV and admitted for further care. Hb 6.8 this morning despite transfusion ordered 2 additional units of packed red blood cells. To EGD this morning with large antral ulcer that was treated. Still feeling lightheaded and dizzy. Vitals/I&O Vitals/I&O: Vital Signs Date Time Temp Pulse Resp B/P (MAP) Pulse Ox O2 Delivery O2 Flow Rate FiO2 11/05/20 10:15 66 20 146/45 92 Room Air 11/05/20 10:06 97.7 97.7 11/05/20 09:48 3 I & O 11/04/20 11/04/20 11/05/20 15:00 23:00 07:00 Intake Total 350 ml 0 ml Output Total 600 ml Balance 350 ml -600 ml Physical Exam General: Alert, Oriented X3, Cooperative, mild distress Lungs: Clear, Other Abdomen: Normal bowel sounds, Soft, No tenderness, No hepatosplenomegaly, No masses Extremities: No clubbing, No cyanosis, No edema, Normal pulses, No tenderness/swelling Skin: No rashes, No significant lesion, Other (Bilateral healing foot ulcers) Labs Labs: Laboratory Tests Test 11/04/20 13:53 11/04/20 14:10 11/04/20 19:56 11/05/20 00:09 Stool Occult Blood Positive (NEG) White Blood Count 9.9 x10^3/uL (4.0-11.0) Red Blood Count 2.23 x10^6/uL (4.30-5.70) Hemoglobin 6.7 g/dL (13.0-17.5) Hematocrit 20.5 % (39.0-53.0) Mean Corpuscular Volume 92 fL (79-100) Mean Corpuscular Hemoglobin 30 pg (25-35) Mean Corpuscular Hemoglobin Concent 33 g/dL (31-37) Red Cell Distribution Width 17.7 % (11.5-14.5) Platelet Count 236 x10^3/uL (140-400) Neutrophils (%) (Auto) 66 % (31-73) Lymphocytes (%) (Auto) 21 % (24-48) Monocytes (%) (Auto) 6 % (0-9) Eosinophils (%) (Auto) 5 % (0-3) Basophils (%) (Auto) 2 % (0-3) Neutrophils # (Auto) 6.6 x10^3/uL (1.8-7.7) Lymphocytes # (Auto) 2.1 x10^3/uL (1.0-4.8) Monocytes # (Auto) 0.6 x10^3/uL (0.0-1.1) Eosinophils # (Auto) 0.5 x10^3/uL (0.0-0.7) Basophils # (Auto) 0.1 x10^3/uL (0.0-0.2) Prothrombin Time 20.6 SEC (11.7-14.0) Prothromb Time International Ratio 1.8 (0.8-1.1) Activated Partial Thromboplast Time 38 SEC (24-38) Sodium Level 139 mmol/L (136-145) Potassium Level 4.2 mmol/L (3.5-5.1) Chloride Level 105 mmol/L (98-107) Carbon Dioxide Level 26 mmol/L (21-32) Anion Gap 8 (6-14) Blood Urea Nitrogen 97 mg/dL (8-26) Creatinine 2.5 mg/dL (0.7-1.3) Estimated GFR (Cockcroft-Gault) 25.4 Glucose Level 193 mg/dL (70-99) Calcium Level 8.7 mg/dL (8.5-10.1) Total Bilirubin 0.7 mg/dL (0.2-1.0) Direct Bilirubin 0.2 mg/dL (0.0-0.2) Aspartate Amino Transf (AST/SGOT) 17 U/L (15-37) Alanine Aminotransferase (ALT/SGPT) 17 U/L (16-63) Alkaline Phosphatase 104 U/L (46-116) Troponin I Quantitative < 0.017 ng/mL (0.000-0.055) Total Protein 6.2 g/dL (6.4-8.2) Albumin 3.0 g/dL (3.4-5.0) Lipase 108 U/L (73-393) Glucose (Fingerstick) 219 mg/dL (70-99) 149 mg/dL (70-99) Test 11/05/20 04:05 11/05/20 06:08 11/05/20 08:54 White Blood Count 9.5 x10^3/uL (4.0-11.0) Red Blood Count 2.31 x10^6/uL (4.30-5.70) Hemoglobin 6.8 g/dL (13.0-17.5) Hematocrit 20.9 % (39.0-53.0) Mean Corpuscular Volume 90 fL (79-100) Mean Corpuscular Hemoglobin 29 pg (25-35) Mean Corpuscular Hemoglobin Concent 33 g/dL (31-37) Red Cell Distribution Width 17.5 % (11.5-14.5) Platelet Count 225 x10^3/uL (140-400) Neutrophils (%) (Auto) 59 % (31-73) Lymphocytes (%) (Auto) 26 % (24-48) Monocytes (%) (Auto) 9 % (0-9) Eosinophils (%) (Auto) 6 % (0-3) Basophils (%) (Auto) 1 % (0-3) Neutrophils # (Auto) 5.6 x10^3/uL (1.8-7.7) Lymphocytes # (Auto) 2.5 x10^3/uL (1.0-4.8) Monocytes # (Auto) 0.8 x10^3/uL (0.0-1.1) Eosinophils # (Auto) 0.5 x10^3/uL (0.0-0.7) Basophils # (Auto) 0.1 x10^3/uL (0.0-0.2) Sodium Level 141 mmol/L (136-145) Potassium Level 4.2 mmol/L (3.5-5.1) Chloride Level 108 mmol/L (98-107) Carbon Dioxide Level 24 mmol/L (21-32) Anion Gap 9 (6-14) Blood Urea Nitrogen 100 mg/dL (8-26) Creatinine 2.4 mg/dL (0.7-1.3) Estimated GFR (Cockcroft-Gault) 26.7 BUN/Creatinine Ratio 42 (6-20) Glucose Level 114 mg/dL (70-99) Calcium Level 8.1 mg/dL (8.5-10.1) Iron Level 43 ug/dL (65-175) Total Iron Binding Capacity 286 ug/dL (250-450) Iron Saturation 15 % (15-34) Total Bilirubin 1.0 mg/dL (0.2-1.0) Aspartate Amino Transf (AST/SGOT) 15 U/L (15-37) Alanine Aminotransferase (ALT/SGPT) 16 U/L (16-63) Alkaline Phosphatase 89 U/L (46-116) Total Protein 5.8 g/dL (6.4-8.2) Albumin 2.8 g/dL (3.4-5.0) Albumin/Globulin Ratio 0.9 (1.0-1.7) Vitamin B12 Level 788 pg/mL (247-911) Glucose (Fingerstick) 119 mg/dL (70-99) SARS-CoV-2 Antigen (Rapid) Negative (NEGATIVE) Assessment and Plan Assessmemt and Plan Problems Medical Problems: (1) Anemia Status: Acute (2) GI bleed Status: Acute Comment Review of Relevant I have reviewed the following items mara (where applicable) has been applied. Medications: Current Medications Medications (Trade) Dose Ordered Sig/Redd Route PRN Reason Start Time Stop Time Status Last Admin Dose Admin Pantoprazole Sodium 80 mg/ Sodium Chloride 100 ml @ 10 mls/hr Q10H IV 11/04/20 15:15 11/04/20 23:47 Pantoprazole Sodium (PROTONIX VIAL for IV PUSH) 80 mg 1X ONCE IVP 11/04/20 15:15 11/04/20 15:16 DC 11/04/20 15:23 Sodium Chloride 1,000 ml @ 1,000 mls/hr 1X ONCE IV 11/04/20 15:15 11/04/20 16:14 DC 11/04/20 15:22 Insulin Glargine (Lantus Syringe) 15 unit QHS SQ 11/04/20 21:00 11/04/20 21:30 Insulin Human Lispro (HumaLOG) 0-9 UNITS Q6HRS SQ 11/04/20 18:00 11/04/20 21:29 Justifications for Admission Other Justification GI bleed requiring transfusion JAKE PATTON MD Nov 05, 2020 10:39
[2020-11-05] MEDS: PANTOPRAZOLE SODIUM IV DRIP 80 MG in IV NORMAL SALINE 100ML 100 ML IV SCH ×2 (11:57→21:17)
--- NOTE | 2020-11-05 12:15 | NUR ---
Wound Care Received consult for healed wounds, pt was discharged from the wound clinic last week, as wounds were healed. Spoke with TATA Rivera who assessed the pt and stated his wounds remain closed. Wound care will sign off, please reconsult if problems arise.
--- NOTE | 2020-11-05 14:42 | PDOC2 ---
CONSULT Date of Consult Date of Consult DATE: 11/05/20 TIME: 14:42 Reason for Consult Reason for Consult: Recommendations regarding anticoagulation Referring Physician Referring Physician: Dr. Persaud Identification/Chief Complaint Chief Complaint Weakness Source Source: Chart review, Patient History of Present Illness Reason for Visit: 75-year-old male with history of paroxysmal atrial fibrillation and coronary artery disease presented with generalized weakness and was found to have severe anemia with hemoglobin of 6.8. He underwent EGD and cauterization by gastroenterology team. Cardiology has been consulted for further recommendations regarding Eliquis. Patient denied any chest pain, orthopnea/PND, palpitations or syncope. Of note, he was recently seen in our office in August 2020 and taken off of his Plavix. Past Medical History Cardiovascular: AFIB, CHF, HTN, Hyperlipidemia, Other Psych: Anxiety Renal/: Chronic renal insuff, Other Endocrine: Diabetes Past Surgical History Past Surgical History: Other Family History Family History: Heart Disease, Hypertension Social History No ALCOHOL: none Drugs: None Current Problem List Problem List Problems Medical Problems: (1) Anemia Status: Acute (2) GI bleed Status: Acute Current Medications Current Medications Current Medications Pantoprazole Sodium 80 mg/ Sodium Chloride 100 ml @ 10 mls/hr Q10H IV Last administered on 11/05/20at 11:57; Start 11/04/20 at 15:15 Pantoprazole Sodium (PROTONIX VIAL for IV PUSH) 80 mg 1X ONCE IVP Last administered on 11/04/20at 15:23; Start 11/04/20 at 15:15; Stop 11/04/20 at 15:16; Status DC Sodium Chloride 1,000 ml @ 1,000 mls/hr 1X ONCE IV Last administered on 11/04/20at 15:22; Start 11/04/20 at 15:15; Stop 11/04/20 at 16:14; Status DC Metoprolol Succinate (Toprol Xl) 50 mg DAILY PO ; Start 11/05/20 at 09:00 Insulin Glargine (Lantus Syringe) 15 unit QHS SQ Last administered on 11/04/20at 21:30; Start 11/04/20 at 21:00 Ondansetron HCl (Zofran) 4 mg PRN Q4HRS PRN IV NAUSEA/VOMITING; Start 11/04/20 at 17:30 Acetaminophen (Tylenol Supp) 650 mg PRN Q4HRS PRN RI TEMP OVER 100.4F OR MILD PAIN; Start 11/04/20 at 17:30 Fentanyl Citrate (Fentanyl 2ml Vial) 25 mcg PRN Q2HR PRN IVP PAIN; Start 11/04/20 at 17:30 Insulin Human Lispro (HumaLOG) 0-9 UNITS Q6HRS SQ Last administered on 11/04/20at 21:29; Start 11/04/20 at 18:00 Dextrose (Dextrose 50%-Water Syringe) 12.5 gm PRN Q15MIN PRN IV SEE COMMENTS; Start 11/04/20 at 17:30 Furosemide (Lasix) 40 mg 1X ONCE IVP Last administered on 11/05/20at 11:54; Start 11/05/20 at 07:00; Stop 11/05/20 at 07:01; Status DC Propofol (Diprivan) 200 mg STK-MED ONCE IV ; Start 11/05/20 at 09:27; Stop 11/05/20 at 09:27; Status DC Lidocaine HCl (Lidocaine Pf 2% Vial) 5 ml STK-MED ONCE .ROUTE ; Start 11/05/20 at 09:27; Stop 11/05/20 at 09:27; Status DC Active Scripts Active Metoprolol Succinate ( Xl ) (Metoprolol Succinate) 25 Mg Tab.er.24h 50 Mg PO DAILY 30 Days Reported Entecavir 0.5 Mg Tablet 0.5 Mg PO DAILY Eliquis (Apixaban) 5 Mg Tablet 5 Mg PO BID Hydralazine Hcl 50 Mg Tablet 1 Tab PO TID Hydrochlorothiazide Tablet (Hydrochlorothiazide) 12.5 Mg Tablet 12.5 Mg PO DAILY Slow Release Iron (Ferrous Sulfate) 160 Mg Tablet.er 160 Mg PO DAILY Losartan Potassium 50 Mg Tablet 50 Mg PO DAILY Aspirin Ec (Aspirin) 81 Mg Tablet.dr 1 Tab PO DAILY Novolin R (Insulin Regular, Human) 100 Unit/1 Ml Vial 10 Unit IJ TIDAC Lantus Solostar (Insulin Glargine,Hum.rec.anlog) 100 Unit/1 Ml Insuln.pen 30 Unit SQ QHS Buspirone Hcl 10 Mg Tablet 1 Tab PO TID PRN PRN Potassium Chloride (Potassium Chloride) 20 Meq Tablet.er 10 Meq PO DAILY Atorvastatin Calcium 40 Mg Tablet 40 Mg PO HS Allopurinol 100 Mg Tablet 100 Mg PO DAILY Furosemide 40 Mg Tablet 40 Mg PO BID 30 Days Allergies Allergies: Coded Allergies: I S O L A T I O N *CONTACT* (Verified Allergy, Unknown, [facility], 11/05/20) MRSA + No Known Medication Allergies (Verified Allergy, Unknown, [facility], 11/05/20) ROS PSYCHOLOGICAL ROS: No: Hallucinations Eyes: No Loss of vision HEENT: No: Epistaxis Respiratory: No: Hemoptysis, Shortness of breath Cardiovascular: No Chest Pain Gastrointestinal: No Vomiting, No Diarrhea Neurological: No Seizures Skin: No Rash Physical Exam General: Alert, Oriented X3 HEENT: Atraumatic Lungs: Clear to auscultation Heart: Other (Heart rate irregular, ESM aortic) Abdomen: Soft Extremities: No edema Neuro: Normal speech Psych/Mental Status: Mood NL Vitals VITALS Vital Signs Date Time Temp Pulse Resp B/P (MAP) Pulse Ox O2 Delivery O2 Flow Rate FiO2 11/05/20 11:00 98.4 70 20 154/58 (90) 92 Room Air 98.4 11/05/20 09:48 3 Labs Labs Laboratory Tests Test 11/04/20 13:53 11/04/20 14:10 11/04/20 19:56 11/05/20 00:09 Stool Occult Blood Positive (NEG) White Blood Count 9.9 x10^3/uL (4.0-11.0) Red Blood Count 2.23 x10^6/uL (4.30-5.70) Hemoglobin 6.7 g/dL (13.0-17.5) Hematocrit 20.5 % (39.0-53.0) Mean Corpuscular Volume 92 fL (79-100) Mean Corpuscular Hemoglobin 30 pg (25-35) Mean Corpuscular Hemoglobin Concent 33 g/dL (31-37) Red Cell Distribution Width 17.7 % (11.5-14.5) Platelet Count 236 x10^3/uL (140-400) Neutrophils (%) (Auto) 66 % (31-73) Lymphocytes (%) (Auto) 21 % (24-48) Monocytes (%) (Auto) 6 % (0-9) Eosinophils (%) (Auto) 5 % (0-3) Basophils (%) (Auto) 2 % (0-3) Neutrophils # (Auto) 6.6 x10^3/uL (1.8-7.7) Lymphocytes # (Auto) 2.1 x10^3/uL (1.0-4.8) Monocytes # (Auto) 0.6 x10^3/uL (0.0-1.1) Eosinophils # (Auto) 0.5 x10^3/uL (0.0-0.7) Basophils # (Auto) 0.1 x10^3/uL (0.0-0.2) Prothrombin Time 20.6 SEC (11.7-14.0) Prothromb Time International Ratio 1.8 (0.8-1.1) Activated Partial Thromboplast Time 38 SEC (24-38) Sodium Level 139 mmol/L (136-145) Potassium Level 4.2 mmol/L (3.5-5.1) Chloride Level 105 mmol/L (98-107) Carbon Dioxide Level 26 mmol/L (21-32) Anion Gap 8 (6-14) Blood Urea Nitrogen 97 mg/dL (8-26) Creatinine 2.5 mg/dL (0.7-1.3) Estimated GFR (Cockcroft-Gault) 25.4 Glucose Level 193 mg/dL (70-99) Calcium Level 8.7 mg/dL (8.5-10.1) Total Bilirubin 0.7 mg/dL (0.2-1.0) Direct Bilirubin 0.2 mg/dL (0.0-0.2) Aspartate Amino Transf (AST/SGOT) 17 U/L (15-37) Alanine Aminotransferase (ALT/SGPT) 17 U/L (16-63) Alkaline Phosphatase 104 U/L (46-116) Troponin I Quantitative < 0.017 ng/mL (0.000-0.055) Total Protein 6.2 g/dL (6.4-8.2) Albumin 3.0 g/dL (3.4-5.0) Lipase 108 U/L (73-393) Glucose (Fingerstick) 219 mg/dL (70-99) 149 mg/dL (70-99) Test 11/05/20 04:05 11/05/20 06:08 11/05/20 08:54 11/05/20 12:35 White Blood Count 9.5 x10^3/uL (4.0-11.0) Red Blood Count 2.31 x10^6/uL (4.30-5.70) Hemoglobin 6.8 g/dL (13.0-17.5) Hematocrit 20.9 % (39.0-53.0) Mean Corpuscular Volume 90 fL (79-100) Mean Corpuscular Hemoglobin 29 pg (25-35) Mean Corpuscular Hemoglobin Concent 33 g/dL (31-37) Red Cell Distribution Width 17.5 % (11.5-14.5) Platelet Count 225 x10^3/uL (140-400) Neutrophils (%) (Auto) 59 % (31-73) Lymphocytes (%) (Auto) 26 % (24-48) Monocytes (%) (Auto) 9 % (0-9) Eosinophils (%) (Auto) 6 % (0-3) Basophils (%) (Auto) 1 % (0-3) Neutrophils # (Auto) 5.6 x10^3/uL (1.8-7.7) Lymphocytes # (Auto) 2.5 x10^3/uL (1.0-4.8) Monocytes # (Auto) 0.8 x10^3/uL (0.0-1.1) Eosinophils # (Auto) 0.5 x10^3/uL (0.0-0.7) Basophils # (Auto) 0.1 x10^3/uL (0.0-0.2) Sodium Level 141 mmol/L (136-145) Potassium Level 4.2 mmol/L (3.5-5.1) Chloride Level 108 mmol/L (98-107) Carbon Dioxide Level 24 mmol/L (21-32) Anion Gap 9 (6-14) Blood Urea Nitrogen 100 mg/dL (8-26) Creatinine 2.4 mg/dL (0.7-1.3) Estimated GFR (Cockcroft-Gault) 26.7 BUN/Creatinine Ratio 42 (6-20) Glucose Level 114 mg/dL (70-99) Calcium Level 8.1 mg/dL (8.5-10.1) Iron Level 43 ug/dL (65-175) Total Iron Binding Capacity 286 ug/dL (250-450) Iron Saturation 15 % (15-34) Total Bilirubin 1.0 mg/dL (0.2-1.0) Aspartate Amino Transf (AST/SGOT) 15 U/L (15-37) Alanine Aminotransferase (ALT/SGPT) 16 U/L (16-63) Alkaline Phosphatase 89 U/L (46-116) Total Protein 5.8 g/dL (6.4-8.2) Albumin 2.8 g/dL (3.4-5.0) Albumin/Globulin Ratio 0.9 (1.0-1.7) Vitamin B12 Level 788 pg/mL (247-911) Glucose (Fingerstick) 119 mg/dL (70-99) 118 mg/dL (70-99) SARS-CoV-2 Antigen (Rapid) Negative (NEGATIVE) Laboratory Tests Test 11/04/20 19:56 11/05/20 00:09 11/05/20 04:05 11/05/20 06:08 Glucose (Fingerstick) 219 mg/dL (70-99) 149 mg/dL (70-99) 119 mg/dL (70-99) White Blood Count 9.5 x10^3/uL (4.0-11.0) Red Blood Count 2.31 x10^6/uL (4.30-5.70) Hemoglobin 6.8 g/dL (13.0-17.5) Hematocrit 20.9 % (39.0-53.0) Mean Corpuscular Volume 90 fL (79-100) Mean Corpuscular Hemoglobin 29 pg (25-35) Mean Corpuscular Hemoglobin Concent 33 g/dL (31-37) Red Cell Distribution Width 17.5 % (11.5-14.5) Platelet Count 225 x10^3/uL (140-400) Neutrophils (%) (Auto) 59 % (31-73) Lymphocytes (%) (Auto) 26 % (24-48) Monocytes (%) (Auto) 9 % (0-9) Eosinophils (%) (Auto) 6 % (0-3) Basophils (%) (Auto) 1 % (0-3) Neutrophils # (Auto) 5.6 x10^3/uL (1.8-7.7) Lymphocytes # (Auto) 2.5 x10^3/uL (1.0-4.8) Monocytes # (Auto) 0.8 x10^3/uL (0.0-1.1) Eosinophils # (Auto) 0.5 x10^3/uL (0.0-0.7) Basophils # (Auto) 0.1 x10^3/uL (0.0-0.2) Sodium Level 141 mmol/L (136-145) Potassium Level 4.2 mmol/L (3.5-5.1) Chloride Level 108 mmol/L (98-107) Carbon Dioxide Level 24 mmol/L (21-32) Anion Gap 9 (6-14) Blood Urea Nitrogen 100 mg/dL (8-26) Creatinine 2.4 mg/dL (0.7-1.3) Estimated GFR (Cockcroft-Gault) 26.7 BUN/Creatinine Ratio 42 (6-20) Glucose Level 114 mg/dL (70-99) Calcium Level 8.1 mg/dL (8.5-10.1) Iron Level 43 ug/dL (65-175) Total Iron Binding Capacity 286 ug/dL (250-450) Iron Saturation 15 % (15-34) Total Bilirubin 1.0 mg/dL (0.2-1.0) Aspartate Amino Transf (AST/SGOT) 15 U/L (15-37) Alanine Aminotransferase (ALT/SGPT) 16 U/L (16-63) Alkaline Phosphatase 89 U/L (46-116) Total Protein 5.8 g/dL (6.4-8.2) Albumin 2.8 g/dL (3.4-5.0) Albumin/Globulin Ratio 0.9 (1.0-1.7) Vitamin B12 Level 788 pg/mL (247-911) Test 11/05/20 08:54 11/05/20 12:35 SARS-CoV-2 Antigen (Rapid) Negative (NEGATIVE) Glucose (Fingerstick) 118 mg/dL (70-99) Assessment/Plan Assessment/Plan 1. Acute blood loss anemia secondary to bleeding. Agree with transfusions to keep hemoglobin above 8 considering his history of coronary disease. He underwent upper GI endoscopy and APC cauterization by gastroenterology team. Continue proton pump inhibitors. Plans for colonoscopy. Okay to stop Eliquis. We will consider outpatient referral for left atrial appendage closure to decrease his stroke risk from atrial fibrillation 2. Coronary artery disease s/p PCI/RHEA to LAD, presently stable and chest pain- free. Continue current secondary prevention measures. 3. 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 He is presently without any claudication symptoms. 4. Permanent atrial fibrillation. Heart rate well controlled. Recent 2D echo showed normal LV systolic function with mild to moderate aortic stenosis. Stop Eliquis secondary to GI bleeding as stated above. Plan for outpatient EP referral for left atrial appendage occlusion procedure. 5. Hypertension: Metoprolol on hold for low blood pressure. 6. Hyperlipidemia: Continue statin therapy 7. Diabetes mellitus type 2: Treat per IM Thank you for your consultation DICK LAZO MD Nov 05, 2020 14:42
--- NOTE | 2020-11-05 17:37 | NUR ---
[facility] following for discharge planning. SW consulted as pt lives home alone. PT/OT to evaluate. RAPID COVID result is negative. Hgb is 6.8, not ready for discharge. [facility] following. Addendum: 11/08/20 at 1103 by CARLITA JACOBO SW Pt transferred to .
--- NOTE | 2020-11-05 19:05 | NUR ---
Nurse's note: The patient underwent EGD this morning, VSS post procedure. Two units of packed rbc transfused with no adverse reactions noted. The patient was started on clear liquids, tolerated well. The patient did not voice any complaints.
[2020-11-05] MEDS: INSULIN GLARGINE SYRINGE. SQ SCH (21:18)
[2020-11-06] VITALS (7 sets, daily range): BP systolic 135–188; BP diastolic 36–69
[2020-11-06] MEDS: INSULIN LISPRO 300 UNITS/3 ML VIAL. SQ SCH ×4 (06:00→18:00)
--- NOTE | 2020-11-06 07:06 | PDOC ---
[employer] PROGRESS NOTE Date of Service DOS: DATE: 11/06/20 TIME: 07:05 Chief Complaint Chief Complaint A/P: Acute blood loss anemia - symptomatic. Will transfuse. Goal Hb > 8 give his CAD history. will consult GI for concern for UGIB given his uremia and consult cardiology for recs on eliquis longer term. IV protonix and blood transfusion ordered. REBECCA - vasomotor nephropathy likely related to above, will not overhydrate given his CHF history CAD s/p LAD stent 04/08/2019 - Hold ASA for acute bleed. Hold BB for low BP Diabetes mellitus, type 2 - 19 year history, will place on basal insulin + sliding scale q 6 hours Peripheral neuropathy - with bilateral foot wounds Peripheral vascular disease - stable Morbid obesity - counseled on weight loss Hypertension. Afib - rate controlled. 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 Tinnitus - stable FEN - Clear liquid, NPO after midnight PPX - SCDs, protonix IV FULL CODE Dispo - inpatient History of Present Illness History of Present Illness Mr Nunn is a 75yo [employer] w/ PMHx CAD s/p LAD stenting 2018, Afib, diastolic CHF, Diabetes-Type II, High Cholesterol, Hypertension, chronic bilateral foot wounds, h/o agent orange exposure who presents to ED with significant other c/o weakness and an outpatient Hb of 6.8. He has been feeling lightheaded and more short of breath lately but does not note any weight gain, orthopnea. He does have SIMPSON He was referred for colonoscopy in 2019 but due to COVID-19 it was deferred. On Eliquis for afib. Has been off brillinta after last year, does still take aspirin. He has not noted any blood in his stools, but they have been darker lately on deeper questioning. Review of systems negative for chest pain shortness of breath abdominal pain vomiting diaphoresis fevers or chills. All other review of systems negative. EKG appears to have left bundle branch block pattern. Irregularly irregular rhythm. ST segments show repolarization. Not suggestive of acute ischemia. Labs with WBC 9.9, Hb 6.7, platelets 236, INR 1.8, NA 139, K4.2, BUN 97, CR 2.5, glucose 193, albumin 3, troponin 0 Temperature within normal limits. Blood pressure 120/50. Patient is on metoprolol. Here his fecal occult blood test is positive. Started on Protonix bolus and IV and admitted for further care. 11/05: Hb 6.8 despite transfusion ordered 2 additional units of packed red blood cells. To EGD this morning with large antral ulcer that was treated. Still feeling lightheaded and dizzy. BUN 90, Cr 2.4. Hb up to 9.3. He is a bit anxious to go home. Did not get full therapy evaluation due to blood transfusion. I have let him know I am concerned about going home given his symptoms Vitals/I&O Vitals/I&O: Vital Signs Date Time Temp Pulse Resp B/P (MAP) Pulse Ox O2 Delivery O2 Flow Rate FiO2 11/06/20 06:57 64 163/60 (94) 11/06/20 03:00 98.0 20 95 Room Air 98.0 11/05/20 09:48 3 I & O 11/05/20 11/05/20 11/06/20 15:00 23:00 07:00 Intake Total 1465 ml 500 ml Output Total 550 ml 300 ml 200 ml Balance 915 ml 200 ml -200 ml Physical Exam General: Alert, Oriented X3 Heart: Other (Heart rate irregular, ESM aortic) Lungs: Clear, Other Abdomen: Soft Extremities: No edema Skin: No rashes, No significant lesion, Other (Bilateral healing foot ulcers) Labs Labs: Laboratory Tests Test 11/05/20 08:54 11/05/20 12:35 11/05/20 18:10 11/05/20 19:31 SARS-CoV-2 Antigen (Rapid) Negative (NEGATIVE) Glucose (Fingerstick) 118 mg/dL (70-99) 181 mg/dL (70-99) 186 mg/dL (70-99) Test 11/06/20 00:08 11/06/20 06:54 Glucose (Fingerstick) 120 mg/dL (70-99) 123 mg/dL (70-99) Assessment and Plan Assessmemt and Plan Problems Medical Problems: (1) Anemia Status: Acute (2) GI bleed Status: Acute Comment Review of Relevant I have reviewed the following items mara (where applicable) has been applied. Justifications for Admission Other Justification GI bleed requiring transfusion JAKE PATTON MD Nov 06, 2020 07:06
[2020-11-06 07:29] LABS: BASO # 0.1 x10^3/uL (0.0-0.2); BASO % 1 % (0-3); EOS # 0.7 x10^3/uL (0.0-0.7); EOS % 7 % (0-3); HEMATOCRIT 28.1 % (39.0-53.0); HEMOGLOBIN 9.3 g/dL (13.0-17.5); LYMPH % 20 % (24-48); MEAN CORPUSCULAR HEMOGLOBIN 30 pg (25-35); MEAN CORPUSCULAR HGB CONC 33 g/dL (31-37); MEAN CORPUSCULAR VOLUME 90 fL (79-100); MONO # 0.9 x10^3/uL (0.0-1.1); MONO % 9 % (0-9); NEUT # 6.2 x10^3/uL (1.8-7.7); NEUT % 63 % (31-73); PLATELET COUNT 207 x10^3/uL (140-400); RED BLOOD COUNT 3.11 x10^6/uL (4.30-5.70); RED CELL DISTRIBUTION WIDTH 16.4 % (11.5-14.5); WHITE BLOOD COUNT 9.8 x10^3/uL (4.0-11.0)
[2020-11-06 07:33] LABS: CALCIUM 8.1 mg/dL (8.5-10.1); CREATININE 2.4 mg/dL (0.7-1.3); GFR 26.7; POTASSIUM 3.7 mmol/L (3.5-5.1)
--- NOTE | 2020-11-06 09:43 | PDOC ---
PROGRESS NOTES Date of Service: DATE: 11/06/20 TIME: 09:41 Subjective Subjective No new complaints. Denied any chest pain. Objective Objective Vital Signs Date Time Temp Pulse Resp B/P (MAP) Pulse Ox O2 Delivery O2 Flow Rate FiO2 11/06/20 07:00 97.9 64 18 159/49 (85) 97 Room Air 97.9 11/05/20 09:48 3 Intake and Output 11/06/20 07:00 Intake Total 1965 ml Output Total 1050 ml Balance 915 ml Intake Oral 1230 ml Blood Product IV Normal Saline Flush 735 ml Output Urine Total 1050 ml # Voids 1 # Bowel Movements 1 Physical Exam Abdomen: Soft Heart: Other (Heart rate irregular, ESM aortic) Extremities: No edema General: Alert, Oriented X3 HEENT: Atraumatic Lungs: Clear to auscultation MUSCULOSKELETAL: No deformity Neuro: Normal speech Psych/Mental Status: Mood NL Skin: No rashes, No significant lesion, Other (Bilateral healing foot ulcers) Assessment Assessment 1. Acute blood loss anemia secondary to bleeding. s/p cauterization of bleeding antral ulcer by gastroenterology team. Hemoglobin 9.3 after blood transfusions. Continue proton pump inhibitors. Plans for colonoscopy, possibly as outpatient. Okay to stop Eliquis. We will consider outpatient referral for left atrial appendage closure to decrease his stroke risk from atrial fibrillation 2. Coronary artery disease s/p PCI/RHEA to LAD, presently stable and chest pain- free. Continue current secondary prevention measures. 3. 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 He is presently without any claudication symptoms. 4. Permanent atrial fibrillation. Heart rate well controlled. Recent 2D echo showed normal LV systolic function with mild to moderate aortic stenosis. Stop Eliquis secondary to GI bleeding as stated above. Plan for outpatient EP referral for left atrial appendage occlusion procedure. 5. Hypertension: Blood pressure elevated. Resume home medication hydralazine. 6. Hyperlipidemia: Continue statin therapy 7. Diabetes mellitus type 2: Treat per IM 8. Acute on chronic renal insufficiency: Elevated BUN probably secondary to upper GI bleeding. Continue management per primary team Plan Plan of Care Problems Medical Problems: (1) Anemia Status: Acute (2) GI bleed Status: Acute Comment Review of Relevant I have reviewed the following items mara (where applicable) has been applied. Labs Laboratory Tests Test 11/05/20 12:35 11/05/20 18:10 11/05/20 19:31 11/06/20 00:08 Glucose (Fingerstick) 118 mg/dL (70-99) 181 mg/dL (70-99) 186 mg/dL (70-99) 120 mg/dL (70-99) Test 11/06/20 05:25 11/06/20 06:54 White Blood Count 9.8 x10^3/uL (4.0-11.0) Red Blood Count 3.11 x10^6/uL (4.30-5.70) Hemoglobin 9.3 g/dL (13.0-17.5) Hematocrit 28.1 % (39.0-53.0) Mean Corpuscular Volume 90 fL (79-100) Mean Corpuscular Hemoglobin 30 pg (25-35) Mean Corpuscular Hemoglobin Concent 33 g/dL (31-37) Red Cell Distribution Width 16.4 % (11.5-14.5) Platelet Count 207 x10^3/uL (140-400) Neutrophils (%) (Auto) 63 % (31-73) Lymphocytes (%) (Auto) 20 % (24-48) Monocytes (%) (Auto) 9 % (0-9) Eosinophils (%) (Auto) 7 % (0-3) Basophils (%) (Auto) 1 % (0-3) Neutrophils # (Auto) 6.2 x10^3/uL (1.8-7.7) Lymphocytes # (Auto) 2.0 x10^3/uL (1.0-4.8) Monocytes # (Auto) 0.9 x10^3/uL (0.0-1.1) Eosinophils # (Auto) 0.7 x10^3/uL (0.0-0.7) Basophils # (Auto) 0.1 x10^3/uL (0.0-0.2) Sodium Level 142 mmol/L (136-145) Potassium Level 3.7 mmol/L (3.5-5.1) Chloride Level 108 mmol/L (98-107) Carbon Dioxide Level 24 mmol/L (21-32) Anion Gap 10 (6-14) Blood Urea Nitrogen 90 mg/dL (8-26) Creatinine 2.4 mg/dL (0.7-1.3) Estimated GFR (Cockcroft-Gault) 26.7 Glucose Level 100 mg/dL (70-99) Calcium Level 8.1 mg/dL (8.5-10.1) Glucose (Fingerstick) 123 mg/dL (70-99) Vitals/I & O Vital Sign - Last 24 Hours 11/05/20 11/05/20 11/05/20 11/05/20 09:48 10:04 10:06 10:15 Temp 97.7 97.7 97.7 97.7 Pulse 66 60 60 66 Resp 20 20 20 20 B/P (MAP) 113/41 126/42 126/42 146/45 Pulse Ox 98 92 92 O2 Delivery Nasal Cannula Room Air Room Air O2 Flow Rate 3 11/05/20 11/05/20 11/05/20 11/05/20 11:00 11:00 13:27 13:57 Temp 96.7 98.4 96.2 96.7 96.7 98.4 96.2 96.7 Pulse 68 70 67 68 Resp 19 20 19 19 B/P (MAP) 145/51 154/58 (90) 147/53 155/45 Pulse Ox 92 O2 Delivery Room Air 11/05/20 11/05/20 11/05/20 11/05/20 14:57 15:00 15:57 16:57 Temp 98.0 98.2 97.8 98.0 98.0 98.2 97.8 98.0 Pulse 64 66 64 67 Resp 19 20 19 18 B/P (MAP) 155/46 147/65 (92) 146/47 153/51 Pulse Ox 93 O2 Delivery Room Air 11/05/20 11/05/20 11/05/20 11/06/20 19:00 20:00 23:00 03:00 Temp 97.6 98.1 98.0 97.6 98.1 98.0 Pulse 59 67 61 Resp 60 20 20 B/P (MAP) 152/45 (80) 172/60 (97) 188/56 (100) Pulse Ox 92 93 95 O2 Delivery Room Air Room Air Room Air Room Air 11/06/20 11/06/20 06:57 07:00 Temp 97.9 97.9 Pulse 64 64 Resp 18 B/P (MAP) 163/60 (94) 159/49 (85) Pulse Ox 97 O2 Delivery Room Air Intake and Output 11/05/20 11/05/20 11/06/20 15:00 23:00 07:00 Intake Total 1465 ml 500 ml Output Total 550 ml 300 ml 200 ml Balance 915 ml 200 ml -200 ml DICK LAZO MD Nov 06, 2020 09:43
[2020-11-06] MEDS: PANTOPRAZOLE SODIUM IV DRIP 80 MG in IV NORMAL SALINE 100ML 100 ML IV SCH ×2 (09:49→21:55)
[2020-11-06] MEDS: METOPROLOL SUCC 24HR ER 50 MG TAB.ER.24H. PO SCH (09:50)
--- NOTE | 2020-11-06 15:05 | PDOC ---
GI PROGRESS NOTES Date of Service: Date/Time DATE: 11/06/20 TIME: 15:04 Subjective Subjective Feeling better, wishes we could advance his diet. Hemoglobin now more stable at 9.3 Objective Vitals Vital Signs Date Time Temp Pulse Resp B/P (MAP) Pulse Ox O2 Delivery O2 Flow Rate FiO2 11/06/20 14:10 64 184/69 11/06/20 11:00 97.4 64 18 184/69 (107) 96 Room Air 97.4 11/06/20 09:58 64 159/49 11/06/20 09:50 64 159/49 11/06/20 07:00 97.9 64 18 159/49 (85) 97 Room Air 97.9 11/06/20 06:57 64 163/60 (94) 11/06/20 03:00 98.0 61 20 188/56 (100) 95 Room Air 98.0 11/05/20 23:00 98.1 67 20 172/60 (97) 93 Room Air 98.1 11/05/20 20:00 Room Air 11/05/20 19:00 97.6 59 60 152/45 (80) 92 Room Air 97.6 11/05/20 16:57 98.0 67 18 153/51 98.0 11/05/20 15:57 97.8 64 19 146/47 97.8 Labs Labs Laboratory Tests Test 11/05/20 18:10 11/05/20 19:31 11/06/20 00:08 11/06/20 05:25 Glucose (Fingerstick) 181 mg/dL (70-99) 186 mg/dL (70-99) 120 mg/dL (70-99) White Blood Count 9.8 x10^3/uL (4.0-11.0) Red Blood Count 3.11 x10^6/uL (4.30-5.70) Hemoglobin 9.3 g/dL (13.0-17.5) Hematocrit 28.1 % (39.0-53.0) Mean Corpuscular Volume 90 fL (79-100) Mean Corpuscular Hemoglobin 30 pg (25-35) Mean Corpuscular Hemoglobin Concent 33 g/dL (31-37) Red Cell Distribution Width 16.4 % (11.5-14.5) Platelet Count 207 x10^3/uL (140-400) Neutrophils (%) (Auto) 63 % (31-73) Lymphocytes (%) (Auto) 20 % (24-48) Monocytes (%) (Auto) 9 % (0-9) Eosinophils (%) (Auto) 7 % (0-3) Basophils (%) (Auto) 1 % (0-3) Neutrophils # (Auto) 6.2 x10^3/uL (1.8-7.7) Lymphocytes # (Auto) 2.0 x10^3/uL (1.0-4.8) Monocytes # (Auto) 0.9 x10^3/uL (0.0-1.1) Eosinophils # (Auto) 0.7 x10^3/uL (0.0-0.7) Basophils # (Auto) 0.1 x10^3/uL (0.0-0.2) Sodium Level 142 mmol/L (136-145) Potassium Level 3.7 mmol/L (3.5-5.1) Chloride Level 108 mmol/L (98-107) Carbon Dioxide Level 24 mmol/L (21-32) Anion Gap 10 (6-14) Blood Urea Nitrogen 90 mg/dL (8-26) Creatinine 2.4 mg/dL (0.7-1.3) Estimated GFR (Cockcroft-Gault) 26.7 Glucose Level 100 mg/dL (70-99) Calcium Level 8.1 mg/dL (8.5-10.1) Test 11/06/20 06:54 11/06/20 12:20 Glucose (Fingerstick) 123 mg/dL (70-99) 121 mg/dL (70-99) Physical Exam Physical Exam Awake Chest few rhonchi otherwise clear heart irregular rhythm Abdomen soft, obese, nontender Assessment Assessment GI bleed likely from gastric ulcer, exacerbated by Eliquis therapy. Presently Eliquis has been held until the ulcer heals. Seems to be improving clinically and would like us to advance his diet which seems reasonable. Plan Plan Advance diet to a cardiac low-sodium diet Continue present treatment regimen while holding Eliquis. Monitor labs. Justicifation of Admission Dx: Justifications for Admission: Justification of Admission Dx: Yes JASVIR PENNY MD Nov 06, 2020 15:05
[2020-11-06] MEDS: INSULIN GLARGINE SYRINGE. SQ SCH (21:57)
[2020-11-07 03:00] VITALS: BP 144/36
[2020-11-07] MEDS: INSULIN LISPRO 300 UNITS/3 ML VIAL. SQ SCH ×4 (06:00→16:56)
[2020-11-07 07:00] VITALS: BP 144/56
[2020-11-07] MEDS: PANTOPRAZOLE SODIUM IV DRIP 80 MG in IV NORMAL SALINE 100ML 100 ML IV SCH ×2 (08:07→17:12)
--- NOTE | 2020-11-07 08:23 | PDOC ---
PROGRESS NOTES Date of Service: DATE: 11/07/20 TIME: 08:23 Subjective Subjective No new complaints. Bradycardic today. Objective Objective Vital Signs Date Time Temp Pulse Resp B/P (MAP) Pulse Ox O2 Delivery O2 Flow Rate FiO2 11/07/20 08:12 36 144/56 11/07/20 03:00 97.5 16 95 97.5 11/06/20 20:00 Room Air 3.0 Intake and Output 11/07/20 07:00 Intake Total 480 ml Output Total 1065 ml Balance -585 ml Intake Oral 480 ml Output Urine Total 1065 ml Physical Exam Abdomen: Soft Heart: Other (Heart rate irregular, ESM aortic) Extremities: No edema General: Alert, Oriented X3 HEENT: Atraumatic Lungs: Clear to auscultation MUSCULOSKELETAL: No deformity Neuro: Normal speech Psych/Mental Status: Mood NL Skin: No rashes, No significant lesion, Other (Bilateral healing foot ulcers) Assessment Assessment 1. Acute blood loss anemia secondary to bleeding. s/p cauterization of bleeding antral ulcer by gastroenterology team. Hemoglobin 9.3 after blood transfusions. Continue proton pump inhibitors. Plans for colonoscopy, possibly as outpatient. Okay to stop Eliquis. We will consider outpatient referral for left atrial appendage closure to decrease his stroke risk from atrial fibrillation 2. Coronary artery disease s/p PCI/RHEA to LAD, presently stable and chest pain- free. Continue current secondary prevention measures. 3. Peripheral artery disease s/p orbital atherectomy/[employer] to right posterior tibial artery to help heal his wounds in the past. He is presently without any claudication symptoms. 4. Permanent atrial fibrillation. Patient with slow ventricular response with heart rate in 30s. Hold Toprol for 24 to 48 hours and resume at a lower dose of 25 mg daily. Recent 2D echo showed normal LV systolic function with mild to moderate aortic stenosis. Stop Eliquis secondary to GI bleeding as stated above. Plan for outpatient EP referral for left atrial appendage occlusion procedure. 5. Hypertension: Blood pressure better controlled after resuming hydralazine. 6. Hyperlipidemia: Continue statin therapy 7. Diabetes mellitus type 2: Treat per IM 8. Acute on chronic renal insufficiency: Elevated BUN probably secondary to upper GI bleeding. Continue management per primary team Plan Plan of Care Problems Medical Problems: (1) Anemia Status: Acute (2) GI bleed Status: Acute Comment Review of Relevant I have reviewed the following items mara (where applicable) has been applied. Labs Laboratory Tests Test 11/06/20 12:20 11/06/20 22:01 11/07/20 08:11 Glucose (Fingerstick) 121 mg/dL (70-99) 98 mg/dL (70-99) 86 mg/dL (70-99) Medications Current Medications Hydralazine HCl (Apresoline) 50 mg TID PO Last administered on 11/07/20at 08:12; Start 11/06/20 at 10:00 Metoprolol Succinate (Toprol Xl) 25 mg DAILY PO ; Start 11/07/20 at 09:00 Vitals/I & O Vital Sign - Last 24 Hours 11/06/20 11/06/20 11/06/20 11/06/20 09:50 09:58 11:00 14:10 Temp 97.4 97.4 Pulse 64 64 64 64 Resp 18 B/P (MAP) 159/49 159/49 184/69 (107) 184/69 Pulse Ox 96 O2 Delivery Room Air 11/06/20 11/06/20 11/06/20 11/06/20 15:00 19:00 20:00 21:56 Temp 98.2 97.1 98.2 97.1 Pulse 72 60 Resp 18 18 B/P (MAP) 163/55 (91) 150/60 (90) 150/60 Pulse Ox 95 94 O2 Delivery Room Air Room Air Room Air O2 Flow Rate 3.0 11/06/20 11/07/20 11/07/20 11/07/20 23:00 03:00 08:08 08:12 Temp 97.9 97.5 97.9 97.5 Pulse 98 64 36 36 Resp 16 16 B/P (MAP) 135/36 (69) 144/36 (72) 144/56 144/56 Pulse Ox 94 95 Intake and Output 11/06/20 11/06/20 11/07/20 15:00 23:00 07:00 Intake Total 480 ml Output Total 250 ml 250 ml 565 ml Balance 230 ml -250 ml -565 ml DICK LAZO MD Nov 07, 2020 08:23
[2020-11-07] MEDS ORDERED: METOPROLOL SUCC 24HR ER 25 MG TAB.ER.24H. PO SCH (09:00)
--- NOTE | 2020-11-07 10:30 | NUR ---
Nurse's note: The patient's heart rate was noted to be in the 30's this morning, ranging from 32 to 45, BP 144/\45/. The patient is awake, alert, oriented x4 and denies any chest pain or lightheadedness. Dr. Prince who was rounding on the floor was notified at 0745 about the patient's bradycardia. Order to decrease the dose of metoprolol and to hold today's dose received. We will continue to monitor.
[2020-11-07 11:00] VITALS: BP 135/33
--- NOTE | 2020-11-07 12:43 | PDOC ---
GI PROGRESS NOTES Date of Service: Date/Time DATE: 11/07/20 TIME: 12:42 Subjective Subjective Wants to go home. Tolerating food although he does not like the hospital diet. Food was delivered cold Objective Vitals Vital Signs Date Time Temp Pulse Resp B/P (MAP) Pulse Ox O2 Delivery O2 Flow Rate FiO2 11/07/20 11:00 98.3 33 18 135/33 (67) 95 Room Air 98.3 11/07/20 08:12 36 144/56 11/07/20 08:08 36 144/56 11/07/20 08:00 Room Air 11/07/20 07:00 97.9 35 17 144/56 (85) 96 Room Air 97.9 11/07/20 03:00 97.5 64 16 144/36 (72) 95 97.5 11/06/20 23:00 97.9 98 16 135/36 (69) 94 97.9 11/06/20 21:56 150/60 11/06/20 20:00 Room Air 3.0 11/06/20 19:00 97.1 60 18 150/60 (90) 94 Room Air 97.1 11/06/20 15:00 98.2 72 18 163/55 (91) 95 Room Air 98.2 11/06/20 14:10 64 184/69 Labs Labs Laboratory Tests Test 11/06/20 22:01 11/07/20 08:11 11/07/20 11:44 Glucose (Fingerstick) 98 mg/dL (70-99) 86 mg/dL (70-99) 132 mg/dL (70-99) Physical Exam Physical Exam Awake Chest few rhonchi otherwise clear heart irregular rhythm Abdomen soft, obese, nontender Assessment Assessment GI bleed likely from gastric ulcer, exacerbated by Eliquis therapy. Presently Eliquis has been held until the ulcer heals. Seems to be improving clinically and tolerating diet Plan Plan diet cardiac low-sodium diet Continue present treatment regimen while holding Eliquis. Stable from a GI point of view Okay for discharge soon Justicifation of Admission Dx: Justifications for Admission: Justification of Admission Dx: Yes JASVIR PENNY MD Nov 07, 2020 12:43
--- NOTE | 2020-11-07 13:51 | PDOC ---
[facility] PROGRESS NOTE Date of Service DOS: DATE: 11/07/20 TIME: 13:50 Chief Complaint Chief Complaint A/P: Acute blood loss anemia - symptomatic. Will transfuse. Goal Hb > 8 give his CAD history. will consult GI for concern for UGIB given his uremia and consult cardiology for recs on eliquis longer term. IV protonix and blood transfusion ordered. REBECCA - vasomotor nephropathy likely related to above, will not overhydrate given his CHF history CAD s/p LAD stent 04/08/2019 - Hold ASA for acute bleed. Hold BB for low BP Diabetes mellitus, type 2 - 19 year history, will place on basal insulin + sliding scale q 6 hours Peripheral neuropathy - with bilateral foot wounds Peripheral vascular disease - stable Morbid obesity - counseled on weight loss Hypertension. Afib - rate controlled. 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 Tinnitus - stable Uremia - will monitor, thought it was GI bleed, but now be etiology of b radycardia Bradycardia - will obtain EKG. Cardiology following. Hold BB FEN - Cardiac diet PPX - SCDs, protonix IV FULL CODE Dispo - inpatient History of Present Illness History of Present Illness Mr Nunn is a 75yo [employer] w/ PMHx CAD s/p LAD stenting 2018, Afib, diastolic CHF, Diabetes-Type II, High Cholesterol, Hypertension, chronic bilateral foot wounds, h/o agent orange exposure who presents to ED with significant other c/o weakness and an outpatient Hb of 6.8. He has been feeling lightheaded and more short of breath lately but does not note any weight gain, orthopnea. He does have SIMPSON He was referred for colonoscopy in 2019 but due to COVID-19 it was deferred. On Eliquis for afib. Has been off brillinta after last year, does still take aspirin. He has not noted any blood in his stools, but they have been darker lately on deeper questioning. Review of systems negative for chest pain shortness of breath abdominal pain vomiting diaphoresis fevers or chills. All other review of systems negative. EKG appears to have left bundle branch block pattern. Irregularly irregular rhythm. ST segments show repolarization. Not suggestive of acute ischemia. Labs with WBC 9.9, Hb 6.7, platelets 236, INR 1.8, NA 139, K4.2, BUN 97, CR 2.5, glucose 193, albumin 3, troponin 0 Temperature within normal limits. Blood pressure 120/50. Patient is on me toprolol. Here his fecal occult blood test is positive. Started on Protonix bolus and IV and admitted for further care. 11/05: Hb 6.8 despite transfusion ordered 2 additional units of packed red blood cells. To EGD this morning with large antral ulcer that was treated. Still feeling lightheaded and dizzy. 11/06: BUN 90, Cr 2.4. Hb up to 9.3. He is a bit anxious to go home. Did not get full therapy evaluation due to blood transfusion. I have let him know I am concerned about going home given his symptoms Bradycardic in the 30s today. Otherwise feeling well. He can wants to go home. He is a little bit short of breath and not able to work with therapy. Vitals/I&O Vitals/I&O: Vital Signs Date Time Temp Pulse Resp B/P (MAP) Pulse Ox O2 Delivery O2 Flow Rate FiO2 11/07/20 11:00 98.3 33 18 135/33 (67) 95 Room Air 98.3 11/06/20 20:00 3.0 I & O 11/06/20 11/06/20 11/07/20 15:00 23:00 07:00 Intake Total 480 ml Output Total 250 ml 250 ml 565 ml Balance 230 ml -250 ml -565 ml Physical Exam General: Alert, Oriented X3 Heart: Other (Heart rate irregular, ESM aortic) Lungs: Clear, Other Abdomen: Soft Extremities: No edema Skin: No rashes, No significant lesion, Other (Bilateral healing foot ulcers) Labs Labs: Laboratory Tests Test 11/06/20 22:01 11/07/20 08:11 11/07/20 11:44 Glucose (Fingerstick) 98 mg/dL (70-99) 86 mg/dL (70-99) 132 mg/dL (70-99) Assessment and Plan Assessmemt and Plan Problems Medical Problems: (1) Anemia Status: Acute (2) GI bleed Status: Acute Comment Review of Relevant I have reviewed the following items mara (where applicable) has been applied. Justifications for Admission Other Justification GI bleed requiring transfusion JAKE PATTON MD Nov 07, 2020 13:51
[2020-11-07 15:00] VITALS: BP 147/48
--- NOTE | 2020-11-07 15:44 | EKG ---
[facility] [address] [place] [address] Test Date: 2020-11-07 Test Time: 14:44:48 Pat Name: SAMEER HOLDEN Department: Room: 3 1 Gender: M [employer]er: [facility] : 1945 Requested By: JAKE PATTON Order Number: [id number] Reading MD: Measurements Intervals Yale Rate: 32 P: NC: QRS: 90 QRSD: 50 T: -42 QT: 520 QTc: 385 Interpretive Statements IRREGULAR RHYTHM, NO P-WAVE FOUND INDETERMINATE AXIS R-S TRANSITION ZONE IN V LEADS DISPLACED TO THE LEFT LOW LIMB LEAD VOLTAGE ST ABNORMALITY, POSSIBLE ANTERIOR SUBENDOCARDIAL INJURY INFERIOR SUBENDOCARDIAL INJURY ABNORMAL ECG RI6.01 Compared to ECG 04/06/2019 12:29:51 Indeterminate axis now present ST (T wave) deviation now present Left bundle-branch block no longer present
[2020-11-07 19:00] VITALS: BP_SYST 125; BP_SYST 130; BP_DIAS 31
[2020-11-07] MEDS: INSULIN GLARGINE SYRINGE. SQ SCH (22:33)
[2020-11-07 23:00] VITALS: BP 147/41
[2020-11-08] VITALS (7 sets, daily range): BP systolic 112–165; BP diastolic 54–75
[2020-11-08] MEDS: INSULIN LISPRO 300 UNITS/3 ML VIAL. SQ SCH ×4 (06:00→17:19)
[2020-11-08 06:52] LABS: BASO # 0.1 x10^3/uL (0.0-0.2); BASO % 1 % (0-3); EOS # 0.3 x10^3/uL (0.0-0.7); EOS % 5 % (0-3); HEMATOCRIT 26.2 % (39.0-53.0); HEMOGLOBIN 8.5 g/dL (13.0-17.5); LYMPH # 1.5 x10^3/uL (1.0-4.8); LYMPH % 19 % (24-48); MEAN CORPUSCULAR HEMOGLOBIN 29 pg (25-35); MEAN CORPUSCULAR HGB CONC 32 g/dL (31-37); MEAN CORPUSCULAR VOLUME 90 fL (79-100); MONO # 0.8 x10^3/uL (0.0-1.1); MONO % 10 % (0-9); NEUT % 66 % (31-73); PLATELET COUNT 182 x10^3/uL (140-400); RED BLOOD COUNT 2.91 x10^6/uL (4.30-5.70); RED CELL DISTRIBUTION WIDTH 15.8 % (11.5-14.5); WHITE BLOOD COUNT 7.7 x10^3/uL (4.0-11.0)
[2020-11-08 07:11] LABS: ALBUMIN 2.8 g/dL (3.4-5.0); ALBUMIN/GLOBULIN RATIO 0.9 (1.0-1.7); CALCIUM 8.1 mg/dL (8.5-10.1); CREATININE 3.4 mg/dL (0.7-1.3); GFR 17.8; MAGNESIUM 2.5 mg/dL (1.8-2.4); POTASSIUM 4.1 mmol/L (3.5-5.1); TOTAL PROTEIN 5.8 g/dL (6.4-8.2)
[2020-11-08] MEDS ORDERED: PANTOPRAZOLE IV PUSH 40 MG VIAL. IVP SCH (07:30)
--- NOTE | 2020-11-08 08:41 | PDOC ---
PROGRESS NOTES Date of Service: DATE: 11/08/20 TIME: 08:40 Chief Complaint Chief Complaint IMPRESSION Acute blood loss anemia - symptomatic. transfused . Goal Hb > 8 give his CAD history. will consult GI for concern for UGIB given his uremia and consult cardiology for recs on eliquis longer term. IV protonix and blood transfusion ordered. antral gastric ulcer s/p APC treatment REBECCA - vasomotor nephropathy likely related to above, will not overhydrate given his CHF history, NEPHROLOGY CONSULTED CAD s/p LAD stent 04/08/2019 - Hold ASA for acute bleed. Hold BB for low BP Diabetes mellitus, type 2 - 19 year history, will place on basal insulin + sliding scale q 6 hours Peripheral neuropathy - with bilateral foot wounds// Peripheral artery disease s/p orbital atherectomy/GRE [employer]OR to right posterior tibial artery to help heal his wounds in the past. Peripheral vascular disease - stable Morbid obesity - counseled on weight loss Hypertension. Afib - rate controlled. Will hold eliquis Diastolic CHF - chronic, stable currently Moderate tricuspid regurgitation with PAP of 68 mmHg. 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 Tinnitus - stable Uremia - will monitor, thought it was GI bleed, but now be etiology of bradycardia Bradycardia - EKG. Cardiology following. Hold BB, BRADYCARDIA PERSISTS antral gastric ulcer s/p APC treatment Severe pulmonary hypertension MORBID OBESITY, High risk of obesity, hypoventilation syndrome plan ADMIT FEN - Cardiac diet PPX - SCDs, protonix IV FULL CODE Dispo - inpatient nephrology consult ABDOMINAL SONO Cardiology consult pulm consult night-time oximetry desat study to exclude ROBB 4-05 d/w TATA eliquis stopped due to GI BLEEDING REPEAT EKG Moderate tricuspid regurgitation with PAP of 68 mmHg. unaware if he snores, lives alone , has trouble sleeping supine, will check hs oximetry study History of Present Illness History of Present Illness Mr Nunn is a 75yo [employer] [place] w/ PMHx CAD s/p LAD stenting 2018, Afib, diastolic CHF, Diabetes-Type II, High Cholesterol, Hypertension, chronic bilateral foot wounds, h/o agent orange exposure who presents to ED with significant other c/o weakness and an outpatient Hb of 6.8. He has been feeling lightheaded and more short of breath lately but does not note any weight gain, orthopnea. He does have SIMPSON He was referred for colonoscopy in 2019 but due to COVID-19 it was deferred. On Eliquis for afib. Has been off brillinta after last year, does still take asp irin. He has not noted any blood in his stools, but they have been darker lately on deeper questioning. Review of systems negative for chest pain shortness of breath abdominal pain vomiting diaphoresis fevers or chills. All other review of systems negative. EKG appears to have left bundle branch block pattern. Irregularly irregular rhythm. ST segments show repolarization. Not suggestive of acute ischemia. Labs with WBC 9.9, Hb 6.7, platelets 236, INR 1.8, NA 139, K4.2, BUN 97, CR 2.5, glucose 193, albumin 3, troponin 0 Temperature within normal limits. Blood pressure 120/50. Patient is on metoprolol. Here his fecal occult blood test is positive. Started on Protonix bolus and IV and admitted for further care. 4/2: Hb 6.8 despite transfusion ordered 2 additional units of packed red blood cells. To EGD this morning with large antral ulcer that was treated. Still feeling lightheaded and dizzy. 4/: BUN 90, Cr 2.4. Hb up to 9.3. He is a bit anxious to go home. Did not get full therapy evaluation due to blood transfusion. I have let him know I am concerned about going home given his symptoms 4-05 d/w RN eliquis stopped due to GI BLEEDING REPEAT EKG TODAY Bradycardic in the 30s today. Otherwise feeling well. He can wants to go home. He is a little bit short of breath and not able to work with therapy. Vitals Vitals Vital Signs Date Time Temp Pulse Resp B/P (MAP) Pulse Ox O2 Delivery O2 Flow Rate FiO2 11/08/20 07:14 98.1 34 18 140/63 (88) 96 Room Air 98.1 Physical Exam Physical Exam Physical Exam General: Alert, Oriented X3, Cooperative, NO distress HEENT: Atraumatic, PERRLA, EOMI, Mucous membr. moist/pink Lungs: Clear to auscultation, Normal air movement Heart: irregularly irregular Abdomen: Normal bowel sounds, Soft, No tenderness, No hepatosplenomegaly, No masses Male Genitals Exam: normal genitalia, normal prostate Rectal Exam: other (hemoccult postive) Extremities: No clubbing, No cyanosis, No edema, Normal pulses, No tenderness/swelling Skin: No rashes, No significant lesion, Other (Bilateral healing foot ulcers) Neuro: Normal gait, Normal speech, Strength at 5/5 X4 ext, Normal tone, Sensation intact, Cranial nerves 3-12 NL, Reflexes 2+ Psych/Mental Status: Mental status NL, Mood NL General: Alert, Oriented X3, Cooperative, No acute distress Heart: Other (Heart rate irregular, ESM aortic) Lungs: Clear, Other Abdomen: Soft, No tenderness Extremities: No clubbing, No cyanosis, No edema Skin: No rashes, No significant lesion, Other (Bilateral healing foot ulcers) Labs LABS Tricuspid Valve TR P. Velocity 387cm/s TR Peak Gr. 60mmHg LEFT VENTRICLE The left ventricle is normal size. There is moderate concentric left ventricular hypertrophy. The left ventricular systolic function is normal. The Ejection Fraction is 55-60%. No regional wall motion abnormalities noted. Cannot assess diastolic function due to atrial fibrillation. No left ventricle thrombus noted on this study. There is no ventricular septal defect visualized. There is no left ventricular aneurysm. There is no mass noted in the left ventricle. RIGHT VENTRICLE The right ventricle is normal size. There is normal right ventricular wall thickness. The right ventricular systolic function is normal. ATRIA The left atrium is moderately dilated. The right atrium is mildly dilated. There is a small sized PFO based on color doppler with [id number] shunting. AORTIC VALVE The aortic valve is moderately calcified. The aortic valve is trileaflet. Doppler and Color Flow revealed trace aortic regurgitation. There is mild- moderate valvular aortic stenosis. Calculated aortic valve area is 1.3 cm2 with maximum pressure gradient of 34 mmHg and mean pressure gradient of 18 mmHg. MITRAL VALVE Mitral annular calcification is mild to moderate. The mitral valve leaflets are normal in structure and function. There is no evidence of mitral valve prolapse. There is no mitral valve stenosis. Doppler and Color-flow revealed mild mitral regurgitation. TRICUSPID VALVE The tricuspid valve is normal in structure and function. Doppler and Color Flow revealed moderate tricuspid regurgitation with PAP of 68 mmHg. There is no tricuspid valve prolapse or vegetation. There is no tricuspid valve stenosis. PULMONIC VALVE The pulmonary valve is normal in structure and function. There is no pulmonic valvular regurgitation. There is no pulmonic valvular stenosis. GREAT VESSELS The aortic root is mildly enlarged to 4.1 cm. The ascending aorta is Mildly dilated to 4.0 cm. The pulmonary artery is normal. The IVC is normal in size and collapses <50% with inspiration. PERICARDIAL EFFUSION There is no pleural effusion. There is no evidence of significant pericardial effusion. Critical Notification Critical Value: No <Conclusion> The left ventricular systolic function is normal. The Ejection Fraction is 55-60%. No regional wall motion abnormalities noted. There is mild-moderate valvular aortic stenosis. Mild mitral regurgitation. Moderate tricuspid regurgitation with PAP of 68 mmHg. There is no evidence of significant pericardial effusion. Signed by : Dick Lazo, Electronically Approved : 07/16/2020 16:43:11 DICTATED and SIGNED BY: DICK LAZO MD DATE: 07/16/20 [id number] Attending Doctor: Chris Persaud MD Operative Note Operative Note Operative Note EGD with biopsies/APC cautery Medications propofol per anesthesia Pre-op dx acute blood loss anemia Post-op dx gastritis s/p bx antral gastric ulcer s/p APC treatment Plan resume diet PPI s/p therapy blood transfusional support PHILLIP FLETCHER MD WHAT IS THE PURPOSE OF AN ADVANCE DIRECTIVE? (ALSO KNOWN A LIVING WILL OR HEALTHCARE POWER OF SUPERVISOR FELLING BUCKING) To articulate and document your wishes concerning medical treatment should you lose decision-making ability. To designate an individual, known as your healthcare agent or proxy, to ensure your wishes are honored should you no longer be able to speak for yourself. This includes, among other things, making decisions about when to withhold or withdraw life-sustaining treatment. WHERE CAN I FIND AN ADVANCE DIRECTIVE FORM? The National Hospice and Palliative [employer] Organization has a list of advance directive forms for every state. We also recommend checking your state [employer] website for the most up-to-date forms. Find quick links to all state and territory government websites at [employer]. WHAT MUST I INCLUDE IN MY ADVANCE DIRECTIVE? The name and contact information of your healthcare agent/proxy. Answers to specific questions about your preferences for care if you become unable to speak for yourself. The forms and questions asked vary a bit from state to state. A sample question: Do you want to receive artificially provided nutrition or hydration when you are close to and/or permanently unconscious? Names and signatures of individuals who witness your signing your advance directive, if required. Not all states require witness signatures. The signature and seal of a public relations representative, if required by your state. Not all states require advance directives to be notarized. [facility] has a list of all advance directive/living will requirements by state. WHAT ELSE WOULD BE GOOD TO INCLUDE IN MY ADVANCE DIRECTIVE? Detailed information about what procedures or types of care you would like to receive and what you wish to avoid at all costs that are not covered by the questions on the form. Would you want to take advantage of all life-support technologies if it would only postpone ? Would you want to use them if you were permanently unconscious? Would you want them if you were going through an advanced progressive illness? More general statements about your values regarding end-of-life care. What does a good mean and look like to you? For that matter, what defines a life worth living? Do you define life by the intake of breath and nutrients? Is it defined by consciousness? At what point do you want to prolong it and at what point do you want to preserve resources for other people? Personal desires for body disposition in essence, what you want to happen to your body when you and plans for any memorial service(s) A list of people who cannot make healthcare decisions for you. Leave no room for ambiguity, which could lead to tensions between loved ones about your care as you are dying. HOW SHOULD I GO ABOUT IDENTIFYING MY HEALTHCARE AGENT/PROXY? An ideal person for the job is someone who: Knows you well. A spouse/partner, a family member, a close friend: all are good candidates. Excels at making difficult decisions under pressure. Is diplomatic and empathetic critical traits for balancing the needs, wants, and unpredictable emotions of a patients loved ones. Isnt afraid to ask tough questions, which invariably arise when discussing a dying individuals end-of-life care. Is easily reachable by email, phone, and/or text. Is or can easily be within physical proximity of where youre likely to receive care. Once Kecia identified this person, how do I talk to them about what care I want and dont want at the end of life? Have multiple conversations with your healthcare agent about your wishes. Take them out to tea, have them over for dinner, go to a bar or library. Talk about what you want, and make sure you are heard and understood. If you see fit, and if your agent doesnt already know this information, you can share a bit about the personalities of the people who will be most invested in your health outcomes, and how best to handle these folks in situations when emotions will be running high. This can be a serious conversation or it can be full of laughs. You get to decide how the conversation plays out. WHAT IF MY HEALTHCARE AGENT/PROXY IS UNAVAILABLE TO EXECUTE THEIR DUTIES WHEN I AM DYING? It is important to appoint an alternative agent/proxy for exactly this reason. Identify and inform that person as you did your main agent/proxy, and list them as an alternate on your advance directive form. WHAT ABOUT THE TWO WITNESSES? ARE THERE ANY SPECIAL REQUIREMENTS FOR WHO CAN AND CANT SERVE IN THIS ROLE? In most states, witnesses cannot be: Your healthcare agent or proxy; Any of your care providers; Related to you by blood, adoption, or marriage; Entitled to any portion of your estate upon your . dpoa review> 20 min to portal Laboratory Tests Test 11/07/20 11:44 11/07/20 16:51 11/07/20 22:32 11/08/20 06:40 Glucose (Fingerstick) 132 mg/dL (70-99) 147 mg/dL (70-99) 172 mg/dL (70-99) White Blood Count 7.7 x10^3/uL (4.0-11.0) Red Blood Count 2.91 x10^6/uL (4.30-5.70) Hemoglobin 8.5 g/dL (13.0-17.5) Hematocrit 26.2 % (39.0-53.0) Mean Corpuscular Volume 90 fL (79-100) Mean Corpuscular Hemoglobin 29 pg (25-35) Mean Corpuscular Hemoglobin Concent 32 g/dL (31-37) Red Cell Distribution Width 15.8 % (11.5-14.5) Platelet Count 182 x10^3/uL (140-400) Neutrophils (%) (Auto) 66 % (31-73) Lymphocytes (%) (Auto) 19 % (24-48) Monocytes (%) (Auto) 10 % (0-9) Eosinophils (%) (Auto) 5 % (0-3) Basophils (%) (Auto) 1 % (0-3) Neutrophils # (Auto) 5.0 x10^3/uL (1.8-7.7) Lymphocytes # (Auto) 1.5 x10^3/uL (1.0-4.8) Monocytes # (Auto) 0.8 x10^3/uL (0.0-1.1) Eosinophils # (Auto) 0.3 x10^3/uL (0.0-0.7) Basophils # (Auto) 0.1 x10^3/uL (0.0-0.2) Sodium Level 136 mmol/L (136-145) Potassium Level 4.1 mmol/L (3.5-5.1) Chloride Level 103 mmol/L (98-107) Carbon Dioxide Level 21 mmol/L (21-32) Anion Gap 12 (6-14) Blood Urea Nitrogen 82 mg/dL (8-26) Creatinine 3.4 mg/dL (0.7-1.3) Estimated GFR (Cockcroft-Gault) 17.8 BUN/Creatinine Ratio 24 (6-20) Glucose Level 144 mg/dL (70-99) Calcium Level 8.1 mg/dL (8.5-10.1) Magnesium Level 2.5 mg/dL (1.8-2.4) Total Bilirubin 1.0 mg/dL (0.2-1.0) Aspartate Amino Transf (AST/SGOT) 16 U/L (15-37) Alanine Aminotransferase (ALT/SGPT) 17 U/L (16-63) Alkaline Phosphatase 94 U/L (46-116) Total Protein 5.8 g/dL (6.4-8.2) Albumin 2.8 g/dL (3.4-5.0) Albumin/Globulin Ratio 0.9 (1.0-1.7) Test 11/08/20 08:05 Glucose (Fingerstick) 146 mg/dL (70-99) Assessment and Plan Assessmemt and Plan Problems Medical Problems: (1) Anemia Status: Acute (2) GI bleed Status: Acute Comment Review of Relevant I have reviewed the following items mara (where applicable) has been applied. Labs Laboratory Tests Test 11/06/20 12:20 11/06/20 22:01 11/07/20 08:11 11/07/20 11:44 Glucose (Fingerstick) 121 mg/dL (70-99) 98 mg/dL (70-99) 86 mg/dL (70-99) 132 mg/dL (70-99) Test 11/07/20 16:51 11/07/20 22:32 11/08/20 06:40 11/08/20 08:05 Glucose (Fingerstick) 147 mg/dL (70-99) 172 mg/dL (70-99) 146 mg/dL (70-99) White Blood Count 7.7 x10^3/uL (4.0-11.0) Red Blood Count 2.91 x10^6/uL (4.30-5.70) Hemoglobin 8.5 g/dL (13.0-17.5) Hematocrit 26.2 % (39.0-53.0) Mean Corpuscular Volume 90 fL (79-100) Mean Corpuscular Hemoglobin 29 pg (25-35) Mean Corpuscular Hemoglobin Concent 32 g/dL (31-37) Red Cell Distribution Width 15.8 % (11.5-14.5) Platelet Count 182 x10^3/uL (140-400) Neutrophils (%) (Auto) 66 % (31-73) Lymphocytes (%) (Auto) 19 % (24-48) Monocytes (%) (Auto) 10 % (0-9) Eosinophils (%) (Auto) 5 % (0-3) Basophils (%) (Auto) 1 % (0-3) Neutrophils # (Auto) 5.0 x10^3/uL (1.8-7.7) Lymphocytes # (Auto) 1.5 x10^3/uL (1.0-4.8) Monocytes # (Auto) 0.8 x10^3/uL (0.0-1.1) Eosinophils # (Auto) 0.3 x10^3/uL (0.0-0.7) Basophils # (Auto) 0.1 x10^3/uL (0.0-0.2) Sodium Level 136 mmol/L (136-145) Potassium Level 4.1 mmol/L (3.5-5.1) Chloride Level 103 mmol/L (98-107) Carbon Dioxide Level 21 mmol/L (21-32) Anion Gap 12 (6-14) Blood Urea Nitrogen 82 mg/dL (8-26) Creatinine 3.4 mg/dL (0.7-1.3) Estimated GFR (Cockcroft-Gault) 17.8 BUN/Creatinine Ratio 24 (6-20) Glucose Level 144 mg/dL (70-99) Calcium Level 8.1 mg/dL (8.5-10.1) Magnesium Level 2.5 mg/dL (1.8-2.4) Total Bilirubin 1.0 mg/dL (0.2-1.0) Aspartate Amino Transf (AST/SGOT) 16 U/L (15-37) Alanine Aminotransferase (ALT/SGPT) 17 U/L (16-63) Alkaline Phosphatase 94 U/L (46-116) Total Protein 5.8 g/dL (6.4-8.2) Albumin 2.8 g/dL (3.4-5.0) Albumin/Globulin Ratio 0.9 (1.0-1.7) Laboratory Tests Test 11/07/20 11:44 11/07/20 16:51 11/07/20 22:32 11/08/20 06:40 Glucose (Fingerstick) 132 mg/dL (70-99) 147 mg/dL (70-99) 172 mg/dL (70-99) White Blood Count 7.7 x10^3/uL (4.0-11.0) Red Blood Count 2.91 x10^6/uL (4.30-5.70) Hemoglobin 8.5 g/dL (13.0-17.5) Hematocrit 26.2 % (39.0-53.0) Mean Corpuscular Volume 90 fL (79-100) Mean Corpuscular Hemoglobin 29 pg (25-35) Mean Corpuscular Hemoglobin Concent 32 g/dL (31-37) Red Cell Distribution Width 15.8 % (11.5-14.5) Platelet Count 182 x10^3/uL (140-400) Neutrophils (%) (Auto) 66 % (31-73) Lymphocytes (%) (Auto) 19 % (24-48) Monocytes (%) (Auto) 10 % (0-9) Eosinophils (%) (Auto) 5 % (0-3) Basophils (%) (Auto) 1 % (0-3) Neutrophils # (Auto) 5.0 x10^3/uL (1.8-7.7) Lymphocytes # (Auto) 1.5 x10^3/uL (1.0-4.8) Monocytes # (Auto) 0.8 x10^3/uL (0.0-1.1) Eosinophils # (Auto) 0.3 x10^3/uL (0.0-0.7) Basophils # (Auto) 0.1 x10^3/uL (0.0-0.2) Sodium Level 136 mmol/L (136-145) Potassium Level 4.1 mmol/L (3.5-5.1) Chloride Level 103 mmol/L (98-107) Carbon Dioxide Level 21 mmol/L (21-32) Anion Gap 12 (6-14) Blood Urea Nitrogen 82 mg/dL (8-26) Creatinine 3.4 mg/dL (0.7-1.3) Estimated GFR (Cockcroft-Gault) 17.8 BUN/Creatinine Ratio 24 (6-20) Glucose Level 144 mg/dL (70-99) Calcium Level 8.1 mg/dL (8.5-10.1) Magnesium Level 2.5 mg/dL (1.8-2.4) Total Bilirubin 1.0 mg/dL (0.2-1.0) Aspartate Amino Transf (AST/SGOT) 16 U/L (15-37) Alanine Aminotransferase (ALT/SGPT) 17 U/L (16-63) Alkaline Phosphatase 94 U/L (46-116) Total Protein 5.8 g/dL (6.4-8.2) Albumin 2.8 g/dL (3.4-5.0) Albumin/Globulin Ratio 0.9 (1.0-1.7) Test 11/08/20 08:05 Glucose (Fingerstick) 146 mg/dL (70-99) Medications Current Medications Pantoprazole Sodium 80 mg/ Sodium Chloride 100 ml @ 10 mls/hr Q10H IV Last administered on 11/07/20at 17:12; Start 11/04/20 at 15:15; Stop 11/08/20 at 07:19; Status DC Pantoprazole Sodium (PROTONIX VIAL for IV PUSH) 80 mg 1X ONCE IVP Last administered on 11/04/20at 15:23; Start 11/04/20 at 15:15; Stop 11/04/20 at 15:16; Status DC Sodium Chloride 1,000 ml @ 1,000 mls/hr 1X ONCE IV Last administered on 11/04/20at 15:22; Start 11/04/20 at 15:15; Stop 11/04/20 at 16:14; Status DC Metoprolol Succinate (Toprol Xl) 50 mg DAILY PO Last administered on 11/06/20at 09:50; Start 11/05/20 at 09:00; Stop 11/07/20 at 07:51; Status DC Insulin Glargine (Lantus Syringe) 15 unit QHS SQ Last administered on 11/07/20at 22:33; Start 11/04/20 at 21:00 Ondansetron HCl (Zofran) 4 mg PRN Q4HRS PRN IV NAUSEA/VOMITING; Start 11/04/20 at 17:30 Acetaminophen (Tylenol Supp) 650 mg PRN Q4HRS PRN LA TEMP OVER 100.4F OR MILD PAIN; Start 11/04/20 at 17:30 Fentanyl Citrate (Fentanyl 2ml Vial) 25 mcg PRN Q2HR PRN IVP PAIN; Start 11/04/20 at 17:30 Insulin Human Lispro (HumaLOG) 0-9 UNITS Q6HRS SQ Last administered on 11/04/20at 21:29; Start 11/04/20 at 18:00 Dextrose (Dextrose 50%-Water Syringe) 12.5 gm PRN Q15MIN PRN IV SEE COMMENTS; Start 11/04/20 at 17:30 Furosemide (Lasix) 40 mg 1X ONCE IVP Last administered on 11/05/20at 11:54; Start 11/05/20 at 07:00; Stop 11/05/20 at 07:01; Status DC Propofol (Diprivan) 200 mg STK-MED ONCE IV ; Start 11/05/20 at 09:27; Stop 11/05/20 at 09:27; Status DC Lidocaine HCl (Lidocaine Pf 2% Vial) 5 ml STK-MED ONCE .ROUTE ; Start 11/05/20 at 09:27; Stop 11/05/20 at 09:27; Status DC Hydralazine HCl (Apresoline) 50 mg TID PO Last administered on 11/07/20at 08:12; Start 11/06/20 at 10:00 Metoprolol Succinate (Toprol Xl) 25 mg DAILY PO ; Start 11/07/20 at 09:00 Pantoprazole Sodium (PROTONIX VIAL for IV PUSH) 40 mg DAILYAC IVP Last administered on 11/08/20at 07:29; Start 11/08/20 at 07:30 Active Scripts Active Metoprolol Succinate ( Xl ) (Metoprolol Succinate) 25 Mg Tab.er.24h 50 Mg PO DAILY 30 Days Reported Entecavir 0.5 Mg Tablet 0.5 Mg PO DAILY Eliquis (Apixaban) 5 Mg Tablet 5 Mg PO BID Hydralazine Hcl 50 Mg Tablet 1 Tab PO TID Hydrochlorothiazide Tablet (Hydrochlorothiazide) 12.5 Mg Tablet 12.5 Mg PO DAILY Slow Release Iron (Ferrous Sulfate) 160 Mg Tablet.er 160 Mg PO DAILY Losartan Potassium 50 Mg Tablet 50 Mg PO DAILY Aspirin Ec (Aspirin) 81 Mg Tablet.dr 1 Tab PO DAILY Novolin R (Insulin Regular, Human) 100 Unit/1 Ml Vial 10 Unit IJ TIDAC Lantus Solostar (Insulin Glargine,Hum.rec.anlog) 100 Unit/1 Ml Insuln.pen 30 Unit SQ QHS Buspirone Hcl 10 Mg Tablet 1 Tab PO TID PRN PRN Potassium Chloride (Potassium Chloride) 20 Meq Tablet.er 10 Meq PO DAILY Atorvastatin Calcium 40 Mg Tablet 40 Mg PO HS Allopurinol 100 Mg Tablet 100 Mg PO DAILY Furosemide 40 Mg Tablet 40 Mg PO BID 30 Days Vitals/I & O Vital Sign - Last 24 Hours 11/07/20 11/07/20 11/07/20 11/07/20 11:00 15:00 19:00 19:00 Temp 98.3 97.9 98.2 98.3 97.9 98.2 Pulse 33 38 34 Resp 18 17 B/P (MAP) 135/33 (67) 147/48 (81) 130/ 125/31 (62) Pulse Ox 95 94 92 O2 Delivery Room Air Room Air 11/07/20 11/07/20 11/07/20 11/08/20 20:00 21:00 23:00 00:00 Temp 98.2 98.2 Pulse 36 Resp 18 B/P (MAP) 125/31 147/41 (76) 165/67 (99) Pulse Ox 96 O2 Delivery Room Air Room Air 11/08/20 11/08/20 11/08/20 00:14 03:07 07:14 Temp 98.4 98.1 98.4 98.1 Pulse 31 34 Resp 18 18 B/P (MAP) 158/68 (98) 140/63 (88) Pulse Ox 96 96 O2 Delivery Room Air Room Air Room Air Intake and Output 11/07/20 11/07/20 11/08/20 15:00 23:00 07:00 Output Total 0 ml 50 ml Balance 0 ml -50 ml Justicifation of Admission Dx: Justifications for Admission: Justification of Admission Dx: Yes SURY PATTERSON MD Nov 08, 2020 08:41
--- NOTE | 2020-11-08 08:51 | PDOC ---
YUDY SCOTT CNC MANUFACTURING ENGINEER 11/08/20 0851: CARDIO Progress Notes Date and Time Date of Service 11/08/20 Time of Evaluation 0844 Subjective Subjective: No Chest Pain, No shortness of breath, No Palpitations, Other (feels fatigued. occasional dizziness. ) Vitals Vitals Vital Signs Date Time Temp Pulse Resp B/P (MAP) Pulse Ox O2 Delivery O2 Flow Rate FiO2 11/08/20 07:14 98.1 34 18 140/63 (88) 96 Room Air 98.1 Weight Weight [ ] Input and Output Intake and Output Intake and Output 11/08/20 07:00 Output Total 50 ml Balance -50 ml Output Urine Total 50 ml # Bowel Movements 1 Laboratory Labs Laboratory Tests Test 11/07/20 11:44 11/07/20 16:51 11/07/20 22:32 11/08/20 06:40 Glucose (Fingerstick) 132 mg/dL (70-99) 147 mg/dL (70-99) 172 mg/dL (70-99) White Blood Count 7.7 x10^3/uL (4.0-11.0) Red Blood Count 2.91 x10^6/uL (4.30-5.70) Hemoglobin 8.5 g/dL (13.0-17.5) Hematocrit 26.2 % (39.0-53.0) Mean Corpuscular Volume 90 fL (79-100) Mean Corpuscular Hemoglobin 29 pg (25-35) Mean Corpuscular Hemoglobin Concent 32 g/dL (31-37) Red Cell Distribution Width 15.8 % (11.5-14.5) Platelet Count 182 x10^3/uL (140-400) Neutrophils (%) (Auto) 66 % (31-73) Lymphocytes (%) (Auto) 19 % (24-48) Monocytes (%) (Auto) 10 % (0-9) Eosinophils (%) (Auto) 5 % (0-3) Basophils (%) (Auto) 1 % (0-3) Neutrophils # (Auto) 5.0 x10^3/uL (1.8-7.7) Lymphocytes # (Auto) 1.5 x10^3/uL (1.0-4.8) Monocytes # (Auto) 0.8 x10^3/uL (0.0-1.1) Eosinophils # (Auto) 0.3 x10^3/uL (0.0-0.7) Basophils # (Auto) 0.1 x10^3/uL (0.0-0.2) Sodium Level 136 mmol/L (136-145) Potassium Level 4.1 mmol/L (3.5-5.1) Chloride Level 103 mmol/L (98-107) Carbon Dioxide Level 21 mmol/L (21-32) Anion Gap 12 (6-14) Blood Urea Nitrogen 82 mg/dL (8-26) Creatinine 3.4 mg/dL (0.7-1.3) Estimated GFR (Cockcroft-Gault) 17.8 BUN/Creatinine Ratio 24 (6-20) Glucose Level 144 mg/dL (70-99) Calcium Level 8.1 mg/dL (8.5-10.1) Magnesium Level 2.5 mg/dL (1.8-2.4) Total Bilirubin 1.0 mg/dL (0.2-1.0) Aspartate Amino Transf (AST/SGOT) 16 U/L (15-37) Alanine Aminotransferase (ALT/SGPT) 17 U/L (16-63) Alkaline Phosphatase 94 U/L (46-116) Total Protein 5.8 g/dL (6.4-8.2) Albumin 2.8 g/dL (3.4-5.0) Albumin/Globulin Ratio 0.9 (1.0-1.7) Test 11/08/20 08:05 Glucose (Fingerstick) 146 mg/dL (70-99) Physical Exam HEENT: Neck Supple W Full Motion Chest: Symmetric LUNGS: Clear to Auscultation Heart: irregularly irregular (AFIB with slow ventricular rate) Abdomen: Soft N/T Extremities: Other (Bilateral healing foot ulcers)) Neurology: alert, oriented, follow commands Assessment Assessment 1. Acute blood loss anemia secondary to GIB. s/p cauterization of bleeding antral ulcer by GI team. s/p transfusion. Hgb at 8.5. Continue proton pump inhibitors. 2. CAD; s/p PCI/RHEA to LAD. clinically stable, CP free. 3. PAD s/p past orbital atherectomy/SQUAD BOSS to right posterior tibial artery. Denies any claudication symptoms 4. Permanent AFIB; with present slow ventricular response. Metoprolol held (last dose 4/3 am), HR remains in mid 30's. Lowest 27 this am. Reports o ccasional dizziness, fatigue. Recent echo with normal LV systolic function with mild to moderate aortic stenosis. 5. Hypertension; controlled 6. Hyperlipidemia; statin 7. Diabetes, II; as per IM 8. REBECCA on CKD; Cr ^ 3.4. renal consulted Recommendation Eliquis discontinued due to GIB Continue PPI Secondary prevention as able. No ASA with above Discontinue metoprolol. Avoid AV andrew blocking agents Can start Dopamine gtt if patient becomes symptomatic. Will likely require permanent pacemaker due to SSS, symptomatic bradycardia Avoid nephrotoxins. follow renal recs Consider outpatient referral for LAAO Supportive care NPO p MN Justicifation of Admission Dx: Justifications for Admission: Justification of Admission Dx: Yes DICK LAZO MD 11/08/20 1726: CARDIO Progress Notes Assessment Assessment Patient seen and examined. Agree with ENTERPRISE APPLICATION ARCHITECT's assessment and plan. Patient continues to have AF with slow VR/bradycardia despite stopping metoprolol and he is symptomatic Clinical picture consistent with sick sinus syndrome Plan PPM tomorrow - risks and benefits explained and he is agreeable CAD stable YUDY SCOTT APRN Nov 08, 2020 08:51 DICK LAZO MD Nov 08, 2020 17:26
--- NOTE | 2020-11-08 10:45 | PDOC ---
Date of Service: DATE: 11/08/20 TIME: 10:41 Subjective: Subjective: Working w/ therapy. Likes the food better on this floor. No bleeding. Wants outpt colonoscopy. Objective: Vital Signs: Vital Signs Date Time Temp Pulse Resp B/P (MAP) Pulse Ox O2 Delivery O2 Flow Rate FiO2 11/08/20 10:33 98.0 38 18 112/54 (73) 97 Room Air 98.0 Labs: Laboratory Tests Test 11/07/20 11:44 11/07/20 16:51 11/07/20 22:32 11/08/20 08:05 Glucose (Fingerstick) 132 mg/dL (70-99) 147 mg/dL (70-99) 172 mg/dL (70-99) 146 mg/dL (70-99) Imaging: EGD 11/05 Pre-op dx acute blood loss anemia Post-op dx gastritis s/p bx antral gastric ulcer s/p APC treatment Plan resume diet PPI s/p therapy blood transfusional support PE: GEN: NAD - up in chair, has gait belt, therapy present LUNGS: clear anteriorly HEART: irregular/bradycardic ABD: obese, non-tender NEURO/PSYCH: A & O 3 A/P: s/p APC 11/05 Acute/chronic anemia - stable after transfusions REBECCA/CKD - Cr worse today H/o CAD, PVD, and A Fib - Eliquis and ASA held COVID negative -- Tolerating diet, no bleeding, stable Hgb. Change to PO PPI. Will review timing to resume Eliquis and ASA w/ Dr. Humphreys. Pt desires outpt colonoscopy - our office can arrange. Justicifation of Admission Dx: Justifications for Admission: Justification of Admission Dx: Yes FABBY ROBERTSON Nov 08, 2020 10:45
--- NOTE | 2020-11-08 10:51 | PDOC2 ---
CONSULT Date of Consult Date of Consult DATE: 11/08/20 TIME: 10:51 Reason for Consult Reason for Consult: REBECCA Identification/Chief Complaint Chief Complaint mild dizziness this am Source Source: Chart review, Patient History of Present Illness Reason for Visit: Pt is a 75yo [employer] w/ PMHx CAD s/p LAD stenting 2018, Afib, diastolic CHF, Diabetes-Type II, Hypertension, chronic bilateral foot wounds, h/o agent orange exposure who presented to the ED on 11/04 with significant other c/o weakness and an outpatient Hb of 6.8. He has been feeling lightheaded and more short of breath lately but does not note any weight gain, orthopnea. He does have SIMPSON. He was referred for colonoscopy in 2019 but due to COVID-19 it was deferred. On Eliquis for afib. Has been off brillinta after last year, does still take aspirin. He has not noted any blood in his stools, but they have been darker lately on deeper questioning. He has Dx of CKD and follows with Dr. Roca( [facility]) at [facility] . In the past he was following with Dr. Wlilis of our group . He was on lasix 20 mg BID at home, no new med changes by any providers recently He denies any N/V/D. No F/C. No CP or abdominal erendira.n Denies any urinary sympto ms, No dysuria, hematuria. reports good, normal UOP. Denies use of NSAID's . No Hx of renal calculus He Received PRBC . s/p EGD with large antral ulcer that was treated. Bradycardic in the 30s on 11/06 . Bradycardiac this am as well with 27 Past Medical History Cardiovascular: AFIB, CHF, HTN, Hyperlipidemia, Other Psych: Anxiety Renal/: Chronic renal insuff, Other Endocrine: Diabetes Past Surgical History Past Surgical History: Other Family History Family History: Heart Disease, Hypertension Social History No ALCOHOL: none Drugs: None Current Problem List Problem List Problems Medical Problems: (1) Anemia Status: Acute (2) GI bleed Status: Acute Current Medications Current Medications Current Medications Pantoprazole Sodium 80 mg/ Sodium Chloride 100 ml @ 10 mls/hr Q10H IV Last administered on 11/07/20at 17:12; Start 11/04/20 at 15:15; Stop 11/08/20 at 07:19; Status DC Pantoprazole Sodium (PROTONIX VIAL for IV PUSH) 80 mg 1X ONCE IVP Last administered on 11/04/20at 15:23; Start 11/04/20 at 15:15; Stop 11/04/20 at 15:16; Status DC Sodium Chloride 1,000 ml @ 1,000 mls/hr 1X ONCE IV Last administered on 11/04/20at 15:22; Start 11/04/20 at 15:15; Stop 11/04/20 at 16:14; Status DC Metoprolol Succinate (Toprol Xl) 50 mg DAILY PO Last administered on 11/06/20at 09:50; Start 11/05/20 at 09:00; Stop 11/07/20 at 07:51; Status DC Insulin Glargine (Lantus Syringe) 15 unit QHS SQ Last administered on 11/07/20at 22:33; Start 11/04/20 at 21:00 Ondansetron HCl (Zofran) 4 mg PRN Q4HRS PRN IV NAUSEA/VOMITING; Start 11/04/20 at 17:30 Acetaminophen (Tylenol Supp) 650 mg PRN Q4HRS PRN NM TEMP OVER 100.4F OR MILD PAIN; Start 11/04/20 at 17:30 Fentanyl Citrate (Fentanyl 2ml Vial) 25 mcg PRN Q2HR PRN IVP PAIN; Start 11/04/20 at 17:30 Insulin Human Lispro (HumaLOG) 0-9 UNITS Q6HRS SQ Last administered on 11/04/20at 21:29; Start 11/04/20 at 18:00; Stop 11/08/20 at 10:44; Status DC Dextrose (Dextrose 50%-Water Syringe) 12.5 gm PRN Q15MIN PRN IV SEE COMMENTS; Start 11/04/20 at 17:30 Furosemide (Lasix) 40 mg 1X ONCE IVP Last administered on 11/05/20at 11:54; Start 11/05/20 at 07:00; Stop 11/05/20 at 07:01; Status DC Propofol (Diprivan) 200 mg STK-MED ONCE IV ; Start 11/05/20 at 09:27; Stop 11/05/20 at 09:27; Status DC Lidocaine HCl (Lidocaine Pf 2% Vial) 5 ml STK-MED ONCE .ROUTE ; Start 11/05/20 at 09:27; Stop 11/05/20 at 09:27; Status DC Hydralazine HCl (Apresoline) 50 mg TID PO Last administered on 11/08/20at 09:28; Start 11/06/20 at 10:00 Metoprolol Succinate (Toprol Xl) 25 mg DAILY PO ; Start 11/07/20 at 09:00; Stop 11/08/20 at 08:50; Status DC Pantoprazole Sodium (PROTONIX VIAL for IV PUSH) 40 mg DAILYAC IVP Last ad ministered on 11/08/20at 07:29; Start 11/08/20 at 07:30; Stop 11/08/20 at 10:47; Status DC Insulin Human Lispro (HumaLOG) 0-9 UNITS TIDBFRMEAL SQ ; Start 11/08/20 at 11:30 Pantoprazole Sodium (Protonix) 40 mg DAILYAC PO ; Start 11/09/20 at 07:30 Active Scripts Active Metoprolol Succinate ( Xl ) (Metoprolol Succinate) 25 Mg Tab.er.24h 50 Mg PO DAILY 30 Days Reported Entecavir 0.5 Mg Tablet 0.5 Mg PO DAILY Eliquis (Apixaban) 5 Mg Tablet 5 Mg PO BID Hydralazine Hcl 50 Mg Tablet 1 Tab PO TID Hydrochlorothiazide Tablet (Hydrochlorothiazide) 12.5 Mg Tablet 12.5 Mg PO DAILY Slow Release Iron (Ferrous Sulfate) 160 Mg Tablet.er 160 Mg PO DAILY Losartan Potassium 50 Mg Tablet 50 Mg PO DAILY Aspirin Ec (Aspirin) 81 Mg Tablet.dr 1 Tab PO DAILY Novolin R (Insulin Regular, Human) 100 Unit/1 Ml Vial 10 Unit IJ TIDAC Lantus Solostar (Insulin Glargine,Hum.rec.anlog) 100 Unit/1 Ml Insuln.pen 30 Unit SQ QHS Buspirone Hcl 10 Mg Tablet 1 Tab PO TID PRN PRN Potassium Chloride (Potassium Chloride) 20 Meq Tablet.er 10 Meq PO DAILY Atorvastatin Calcium 40 Mg Tablet 40 Mg PO HS Allopurinol 100 Mg Tablet 100 Mg PO DAILY Furosemide 40 Mg Tablet 40 Mg PO BID 30 Days Allergies Allergies: Coded Allergies: I S O L A T I O N *CONTACT* (Verified Allergy, Unknown, UNK, 11/05/20) MRSA + No Known Medication Allergies (Verified Allergy, Unknown, UNK, 11/05/20) ROS Review of System As per HPI, rest of the ROs is negative Physical Exam Physical Exam General: NAD , sitting up in chair HEENT: Atraumatic, OM moist Neck supple Lungs: Clear to auscultation Heart: Bradycardic, ESM aortic) Abdomen: Soft, NT Extremities: No edema Neuro: grossly normal Psych/Mental Status: Mood NL No lowery, No cva or SP tenderness Skin No rash Vital Signs Vital Signs Date Time Temp Pulse Resp B/P (MAP) Pulse Ox O2 Delivery O2 Flow Rate FiO2 11/08/20 10:33 98.0 38 18 112/54 (73) 97 Room Air 98.0 Assessment & Plan REBECCA- etiology - Cardiorenal/ATN , Bradycardic , GI blood loss , Mildly hypotensive . Currently Non Oliguric . E-Lytes and bicarb stable Supportive care, Strict I/O, daily standing weight Renal US ordered - P, Avoid nephrotoxins , IV NS bouls x 1, Diuretics held , Possible pacemaker - card managing CKD stage 3B - Follows with Dr. Roca, baseline Cr per [facility] records appears to be 1.8-2.0 Acute blood loss anemia secondary to GIB. s/p cauterization of bleeding antral ulcer by GI team. s/p transfusion. Hgb at 8.5. currently on proton pump inhibitors. Permanent AFIB; with present slow ventricular response. Metoprolol held (last dose 4/3 am), HR remains in mid 30's. Lowest 27 this am. Reports occasional dizziness, fatigue. Recent echo with normal LV systolic function with mild to moderate aortic stenosis. 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 Hypertension; BP mildly below his baseline . IVF small bolus Diabetes, II; as per IM Labs Labs Laboratory Tests Test 11/06/20 12:20 11/06/20 22:01 11/07/20 08:11 11/07/20 11:44 Glucose (Fingerstick) 121 mg/dL (70-99) 98 mg/dL (70-99) 86 mg/dL (70-99) 132 mg/dL (70-99) Test 11/07/20 16:51 11/07/20 22:32 11/08/20 06:40 11/08/20 08:05 Glucose (Fingerstick) 147 mg/dL (70-99) 172 mg/dL (70-99) 146 mg/dL (70-99) White Blood Count 7.7 x10^3/uL (4.0-11.0) Red Blood Count 2.91 x10^6/uL (4.30-5.70) Hemoglobin 8.5 g/dL (13.0-17.5) Hematocrit 26.2 % (39.0-53.0) Mean Corpuscular Volume 90 fL (79-100) Mean Corpuscular Hemoglobin 29 pg (25-35) Mean Corpuscular Hemoglobin Concent 32 g/dL (31-37) Red Cell Distribution Width 15.8 % (11.5-14.5) Platelet Count 182 x10^3/uL (140-400) Neutrophils (%) (Auto) 66 % (31-73) Lymphocytes (%) (Auto) 19 % (24-48) Monocytes (%) (Auto) 10 % (0-9) Eosinophils (%) (Auto) 5 % (0-3) Basophils (%) (Auto) 1 % (0-3) Neutrophils # (Auto) 5.0 x10^3/uL (1.8-7.7) Lymphocytes # (Auto) 1.5 x10^3/uL (1.0-4.8) Monocytes # (Auto) 0.8 x10^3/uL (0.0-1.1) Eosinophils # (Auto) 0.3 x10^3/uL (0.0-0.7) Basophils # (Auto) 0.1 x10^3/uL (0.0-0.2) Sodium Level 136 mmol/L (136-145) Potassium Level 4.1 mmol/L (3.5-5.1) Chloride Level 103 mmol/L (98-107) Carbon Dioxide Level 21 mmol/L (21-32) Anion Gap 12 (6-14) Blood Urea Nitrogen 82 mg/dL (8-26) Creatinine 3.4 mg/dL (0.7-1.3) Estimated GFR (Cockcroft-Gault) 17.8 BUN/Creatinine Ratio 24 (6-20) Glucose Level 144 mg/dL (70-99) Calcium Level 8.1 mg/dL (8.5-10.1) Magnesium Level 2.5 mg/dL (1.8-2.4) Total Bilirubin 1.0 mg/dL (0.2-1.0) Aspartate Amino Transf (AST/SGOT) 16 U/L (15-37) Alanine Aminotransferase (ALT/SGPT) 17 U/L (16-63) Alkaline Phosphatase 94 U/L (46-116) Total Protein 5.8 g/dL (6.4-8.2) Albumin 2.8 g/dL (3.4-5.0) Albumin/Globulin Ratio 0.9 (1.0-1.7) Thyroid Stimulating Hormone (TSH) 1.772 uIU/mL (0.358-3.74) Laboratory Tests Test 11/07/20 11:44 11/07/20 16:51 11/07/20 22:32 11/08/20 06:40 Glucose (Fingerstick) 132 mg/dL (70-99) 147 mg/dL (70-99) 172 mg/dL (70-99) White Blood Count 7.7 x10^3/uL (4.0-11.0) Red Blood Count 2.91 x10^6/uL (4.30-5.70) Hemoglobin 8.5 g/dL (13.0-17.5) Hematocrit 26.2 % (39.0-53.0) Mean Corpuscular Volume 90 fL (79-100) Mean Corpuscular Hemoglobin 29 pg (25-35) Mean Corpuscular Hemoglobin Concent 32 g/dL (31-37) Red Cell Distribution Width 15.8 % (11.5-14.5) Platelet Count 182 x10^3/uL (140-400) Neutrophils (%) (Auto) 66 % (31-73) Lymphocytes (%) (Auto) 19 % (24-48) Monocytes (%) (Auto) 10 % (0-9) Eosinophils (%) (Auto) 5 % (0-3) Basophils (%) (Auto) 1 % (0-3) Neutrophils # (Auto) 5.0 x10^3/uL (1.8-7.7) Lymphocytes # (Auto) 1.5 x10^3/uL (1.0-4.8) Monocytes # (Auto) 0.8 x10^3/uL (0.0-1.1) Eosinophils # (Auto) 0.3 x10^3/uL (0.0-0.7) Basophils # (Auto) 0.1 x10^3/uL (0.0-0.2) Sodium Level 136 mmol/L (136-145) Potassium Level 4.1 mmol/L (3.5-5.1) Chloride Level 103 mmol/L (98-107) Carbon Dioxide Level 21 mmol/L (21-32) Anion Gap 12 (6-14) Blood Urea Nitrogen 82 mg/dL (8-26) Creatinine 3.4 mg/dL (0.7-1.3) Estimated GFR (Cockcroft-Gault) 17.8 BUN/Creatinine Ratio 24 (6-20) Glucose Level 144 mg/dL (70-99) Calcium Level 8.1 mg/dL (8.5-10.1) Magnesium Level 2.5 mg/dL (1.8-2.4) Total Bilirubin 1.0 mg/dL (0.2-1.0) Aspartate Amino Transf (AST/SGOT) 16 U/L (15-37) Alanine Aminotransferase (ALT/SGPT) 17 U/L (16-63) Alkaline Phosphatase 94 U/L (46-116) Total Protein 5.8 g/dL (6.4-8.2) Albumin 2.8 g/dL (3.4-5.0) Albumin/Globulin Ratio 0.9 (1.0-1.7) Thyroid Stimulating Hormone (TSH) 1.772 uIU/mL (0.358-3.74) Test 11/08/20 08:05 Glucose (Fingerstick) 146 mg/dL (70-99) Review All relevant outside records, renal labs, imaging studies, telemetry/EKG's were reviewed. BEATRIZ IBARRA MD Nov 08, 2020 10:51
[2020-11-08] MEDS ORDERED: IV NORMAL SALINE 500ML BAG 500 ML IV ONE (11:15)
[2020-11-08] MEDS: CETIRIZINE HCL 10 MG TABLET. PO SCH (11:29)
--- NOTE | 2020-11-08 12:12 | CONS ---
DATE OF CONSULTATION: PULMONARY CONSULTATION ATTENDING PHYSICIAN: Chris Persaud MD REASON FOR CONSULTATION: Pulmonary hypertension, possible sleep apnea. HISTORY OF PRESENT ILLNESS: The patient is a 75-year-old male who has past medical history of coronary artery disease status post stenting in 2019, history of atrial fibrillation, diastolic CHF and multiple other medical problems. He was brought into the hospital due to weakness. His outpatient hemoglobin of 6.8. The patient underwent EGD and was found to have gastric antrum ulcer status post APC therapy. I have been asked by Dr. Schmitz today for a pulmonary consultation. I assume it is for pulmonary hypertension. The patient denies any symptoms of daytime somnolence. He is not on home oxygen. He had a history of a left heart catheterization, which was done on 04/2019. At that time, it showed left ventricular end diastolic pressure of 25. He had a stent placed at that time, his pulmonary artery systolic pressure was 68. No recent x-ray has been done. I have been asked to see him for further evaluation. He feels better after packed RBC transfusion. PAST MEDICAL HISTORY: AFib, CHF, hypertension, diastolic CHF, history of LAD, hyperlipidemia, anxiety, chronic renal insufficiency, and diabetes. PAST SURGICAL HISTORY: No recent surgeries, had a cath in 2019. FAMILY HISTORY: Heart disease and hypertension. SOCIAL HISTORY: No tobacco history. ALLERGIES: None. PHYSICAL EXAMINATION: VITAL SIGNS: Reviewed. Blood pressure stable, pulse ox 98% on room air, afebrile. NECK: Supple. LUNGS: Clear. CARDIOVASCULAR: With a regular rate. ABDOMEN: Soft. EXTREMITIES: With some braces and some trace edema. LABORATORY DATA: Reviewed. Hemoglobin is up from 6.7-8.5. BUN 82 and creatinine 3.4. IMPRESSION: 1. The patient with secondary pulmonary hypertension. His cardiac catheterization from 2019 showed left ventricular end diastolic pressure of 25. He has no significant tobacco history. He denies any history hypersomnia and never had any sleep study done. His pulmonary hypertension is secondary. At this point, I do not see need for doing a sleep study. 2. Weakness present on admission secondary to anemia, status post esophagogastroduodenoscopy with gastric antrum ulcers, status post Argon plasma coagulation therapy. Feels better post-transfusion. 3. Chronic kidney disease. 4. History of atrial fibrillation. 5. Diastolic congestive heart failure. Clinically, compensated, currently on room air. RECOMMENDATIONS: 1. From a pulmonary standpoint, he is stable. 2. I will do a baseline chest x-ray. 3. At this point, I do not see a need for sleep study. The patient denies symptoms of hypersomnia. 4. Weight loss is advised. 5. Follow renal recommendation. 6. Follow GI recommendations. IDALIA GORE MD DR: JAEYSH/aline JOB#: [id number] / [id number]
--- NOTE | 2020-11-08 12:55 | NUR ---
SS following for discharge planning. SS reviewed pt chart and discussed with pt RN. Pt is from home and is currently on room air. COVID19 negative. Pt is a [place]. PT/OT recommended penitentiary unit. Pt having low heart rate today. Pacemaker placement scheduled for tomorrow. SS met with pt to discuss discharge planning and penitentiary unit. Pt requesting to go to [facility], ; fax [phone]. SS phoned and faxed referral to [facility] as requested. Pt reported that he has had both COVID19 vaccinations and will bring in copy of vaccination card for placement. SS will continue to follow for discharge planning.
--- NOTE | 2020-11-08 14:50 | NUR ---
SS following up with discharge planning. Pt accepted at [facility]. SS will continue to follow for discharge planning.
--- NOTE | 2020-11-08 16:40 | RAD ---
STUDY: Complete renal sonogram INDICATION: Acute on chronic kidney disease. COMPARISON: None. TECHNIQUE: Real-time grayscale and color Doppler sonographic evaluation of both kidneys. The bladder was also evaluated. FINDINGS: The study was made difficult by patient body habitus and bowel gas. Right kidney: Measures 12.6 cm in length. No complex cyst or mass. No hydronephrosis. Possible intrar enal stones. Left kidney: Measures 10.7 cm in length. No complex cyst or mass. No hydronephrosis. Possible intrare nal stones to include a 13 mm focus of increased echogenicity at the upper pole. Bladder: No localized wall thickening is apparent. Miscellaneous: Incompletely characterized abdominal aorta and IVC. IMPRESSION: No sonographic abnormality of either kidney to explain the patient's acute on chronic kidney disease. No definitive manifestations of bladder outlet obstruction, as queried. Electronically signed by: HAM MELENDEZ MD (11/08/2020 4:38 PM) [facility]
[2020-11-08] MEDS: hydrALAZINE 25 MG TABLET PO SCH (20:12)
[2020-11-08] MEDS: INSULIN GLARGINE SYRINGE. SQ SCH (20:16)
[2020-11-09] VITALS (16 sets, daily range): BP systolic 122–193; BP diastolic 58–74
[2020-11-09 06:57] LABS: BASO # 0.1 x10^3/uL (0.0-0.2); BASO % 1 % (0-3); EOS # 0.6 x10^3/uL (0.0-0.7); EOS % 6 % (0-3); HEMATOCRIT 28.5 % (39.0-53.0); HEMOGLOBIN 9.2 g/dL (13.0-17.5); LYMPH % 22 % (24-48); MEAN CORPUSCULAR HEMOGLOBIN 30 pg (25-35); MEAN CORPUSCULAR HGB CONC 32 g/dL (31-37); MEAN CORPUSCULAR VOLUME 92 fL (79-100); MONO # 0.9 x10^3/uL (0.0-1.1); MONO % 10 % (0-9); NEUT # 5.2 x10^3/uL (1.8-7.7); NEUT % 60 % (31-73); PLATELET COUNT 200 x10^3/uL (140-400); RED BLOOD COUNT 3.11 x10^6/uL (4.30-5.70); RED CELL DISTRIBUTION WIDTH 16.3 % (11.5-14.5); WHITE BLOOD COUNT 8.7 x10^3/uL (4.0-11.0)
[2020-11-09 07:04] LABS: ALBUMIN 2.9 g/dL (3.4-5.0); ALBUMIN/GLOBULIN RATIO 0.9 (1.0-1.7); CALCIUM 8.4 mg/dL (8.5-10.1); CREATININE 3.7 mg/dL (0.7-1.3); GFR 16.2; POTASSIUM 3.9 mmol/L (3.5-5.1); TOTAL BILIRUBIN 1.1 mg/dL (0.2-1.0); TOTAL PROTEIN 6.2 g/dL (6.4-8.2)
[2020-11-09] MEDS ORDERED: PANTOPRAZOLE 40 MG TABLET.DR. PO SCH (07:30)
[2020-11-09] MEDS: INSULIN LISPRO 300 UNITS/3 ML VIAL. SQ SCH ×3 (07:30→17:33)
--- NOTE | 2020-11-09 08:09 | PDOC ---
PROGRESS NOTES Date of Service: DATE: 11/09/20 TIME: 08:09 Chief Complaint Chief Complaint IMPRESSION Acute blood loss anemia - symptomatic. transfused . Goal Hb > 8 give his CAD history. will consult GI for concern for UGIB given his uremia and consult cardiology for recs on eliquis longer term. IV protonix and blood transfusion ordered. antral gastric ulcer s/p APC treatment REBECCA - vasomotor nephropathy likely related to above, will not overhydrate given his CHF history, NEPHROLOGY CONSULTED CAD s/p LAD stent 04/08/2019 - Hold ASA for acute bleed. 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 Peripheral vascular disease - stable Morbid obesity - counseled on weight loss Hypertension. Afib - rate controlled. Will hold eliquis Diastolic CHF - chronic, stable currently Moderate tricuspid regurgitation with PAP of 68 mmHg. 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 Tinnitus - stable Uremia - will monitor, thought it was GI bleed, but now be etiology of bradycardia Bradycardia - EKG. Cardiology following. Hold BB, BRADYCARDIA PERSISTS antral gastric ulcer s/p APC treatment Severe pulmonary hypertension MORBID OBESITY, High risk of obesity, hypoventilation syndrome plan ADMIT FEN - Cardiac diet PPX - SCDs, protonix IV FULL CODE Dispo - inpatient nephrology consult ABDOMINAL SONO Cardiology consult pulm consult night-time oximetry desat study to exclude ROBB May resume anticoagulation at this time with stable Hg. 4-05 d/w TATA eliquchristianne stopped due to GI BLEEDING REPEAT EKG Moderate tricuspid regurgitation with PAP of 68 mmHg. unaware if he snores, lives alone , has trouble sleeping supine, will check hs oximetry study Discharge Recommendations * Senior Care Unit Discharge Recommendation - DME * Rolling Walker needed * in order to complete ADLs History of Present Illness History of Present Illness Mr Nunn is a 75yo [employer] w/ PMHx CAD s/p LAD stenting 2019, Afib, diastolic CHF, Diabetes-Type II, High Cholesterol, Hypertension, chronic bilateral foot wounds, h/o agent orange exposure who presents to ED with significant other c/o weakness and an outpatient Hb of 6.8. He has been feeling lightheaded and more short of breath lately but does not note any weight gain, orthopnea. He does have SIMPSON He was referred for colonoscopy in 2019 but due to COVID-19 it was deferred. On Eliquis for afib. Has been off brillinta after last year, does still take aspirin. He has not noted any blood in his stools, but they have been darker lately on deeper questioning. Review of systems negative for chest pain shortness of breath abdominal pain vomiting diaphoresis fevers or chills. All other review of systems negative. EKG appears to have left bundle branch block pattern. Irregularly irregular rhythm. ST segments show repolarization. Not suggestive of acute ischemia. Labs with WBC 9.9, Hb 6.7, platelets 236, INR 1.8, NA 139, K4.2, BUN 97, CR 2.5, glucose 193, albumin 3, troponin 0 Temperature within normal limits. Blood pressure 120/50. Patient is on metoprolol. Here his fecal occult blood test is positive. Started on Protonix bolus and IV and admitted for further care. 4/2: Hb 6.8 despite transfusion ordered 2 additional units of packed red blood cells. To EGD this morning with large antral ulcer that was treated. Still feeling lightheaded and dizzy. 4/3: BUN 90, Cr 2.4. Hb up to 9.3. He is a bit anxious to go home. Did not get full therapy evaluation due to blood transfusion. I have let him know I am concerned about going home given his symptoms 4- d/w RN eliquis stopped due to GI BLEEDING REPEAT EKG TODAY 4-06 d/w RN eliquis stopped due to GI BLEEDING RESTART ELIQUIS AND ASA Bradycardic PACEMAKER TODAY short of breath and not able to work with therapy.WELL Vitals Vitals Vital Signs Date Time Temp Pulse Resp B/P (MAP) Pulse Ox O2 Delivery O2 Flow Rate FiO2 11/09/20 07:00 97.9 34 16 142/58 (86) 93 Room Air 97.9 Physical Exam Physical Exam Physical Exam General: Alert, Oriented X3, Cooperative, NO distress HEENT: Atraumatic, PERRLA, EOMI, Mucous membr. moist/pink Lungs: Clear to auscultation, Normal air movement Heart: irregularly irregular Abdomen: Normal bowel sounds, Soft, No tenderness, No hepatosplenomegaly, No masses Male Genitals Exam: normal genitalia, normal prostate Rectal Exam: other (hemoccult postive) Extremities: No clubbing, No cyanosis, No edema, Normal pulses, No tenderness/swelling Skin: No rashes, No significant lesion, Other (Bilateral healing foot ulcers) Neuro: Normal gait, Normal speech, Strength at 5/5 X4 ext, Normal tone, Sensation intact, Cranial nerves 3-12 NL, Reflexes 2+ Psych/Mental Status: Mental status NL, Mood NL General: Alert, Oriented X3, Cooperative, No acute distress Heart: Other (Heart rate irregular, ESM aorticBRADY ) Lungs: Clear, Other Abdomen: Soft, No tenderness Extremities: No clubbing, No cyanosis, No edema Skin: No rashes, No significant lesion, Other (Bilateral healing foot ulcers) Labs LABS Laboratory Tests Test 11/08/20 11:30 11/08/20 16:28 11/08/20 20:15 11/08/20 20:32 Glucose (Fingerstick) 168 mg/dL (70-99) 205 mg/dL (70-99) 153 mg/dL (70-99) 145 mg/dL (70-99) Test 11/09/20 06:20 11/09/20 07:46 White Blood Count 8.7 x10^3/uL (4.0-11.0) Red Blood Count 3.11 x10^6/uL (4.30-5.70) Hemoglobin 9.2 g/dL (13.0-17.5) Hematocrit 28.5 % (39.0-53.0) Mean Corpuscular Volume 92 fL (79-100) Mean Corpuscular Hemoglobin 30 pg (25-35) Mean Corpuscular Hemoglobin Concent 32 g/dL (31-37) Red Cell Distribution Width 16.3 % (11.5-14.5) Platelet Count 200 x10^3/uL (140-400) Neutrophils (%) (Auto) 60 % (31-73) Lymphocytes (%) (Auto) 22 % (24-48) Monocytes (%) (Auto) 10 % (0-9) Eosinophils (%) (Auto) 6 % (0-3) Basophils (%) (Auto) 1 % (0-3) Neutrophils # (Auto) 5.2 x10^3/uL (1.8-7.7) Lymphocytes # (Auto) 2.0 x10^3/uL (1.0-4.8) Monocytes # (Auto) 0.9 x10^3/uL (0.0-1.1) Eosinophils # (Auto) 0.6 x10^3/uL (0.0-0.7) Basophils # (Auto) 0.1 x10^3/uL (0.0-0.2) Sodium Level 135 mmol/L (136-145) Potassium Level 3.9 mmol/L (3.5-5.1) Chloride Level 104 mmol/L (98-107) Carbon Dioxide Level 20 mmol/L (21-32) Anion Gap 11 (6-14) Blood Urea Nitrogen 89 mg/dL (8-26) Creatinine 3.7 mg/dL (0.7-1.3) Estimated GFR (Cockcroft-Gault) 16.2 BUN/Creatinine Ratio 24 (6-20) Glucose Level 122 mg/dL (70-99) Calcium Level 8.4 mg/dL (8.5-10.1) Total Bilirubin 1.1 mg/dL (0.2-1.0) Aspartate Amino Transf (AST/SGOT) 19 U/L (15-37) Alanine Aminotransferase (ALT/SGPT) 16 U/L (16-63) Alkaline Phosphatase 103 U/L (46-116) Total Protein 6.2 g/dL (6.4-8.2) Albumin 2.9 g/dL (3.4-5.0) Albumin/Globulin Ratio 0.9 (1.0-1.7) Glucose (Fingerstick) 118 mg/dL (70-99) Assessment and Plan Assessmemt and Plan Problems Medical Problems: (1) Anemia Status: Acute (2) GI bleed Status: Acute * Pt denies further needs Communicated Patient Care With (Name, Title) * Rima RN; FELIX Cho Goal 1 - Bed Mobility Assistance Required * Independent Goal 1 Assessment * Appropriate - Continue Goal 2 - Transfers Assistance Required * Independent Goal 2 - Transfer Type * Stand-Pivot Goal 2 Assessment * Appropriate - Continue Goal 3 - Ambulation Assistance Required * Stand-by Assistance Goal 3 - Ambulation Distance * 25' Goal 3 - Ambulation Device * Roller Walker Treatment Plan * Therapeutic Exercise * Bed Mobility Training * Transfer training * Gait Training * Body Mechanics Training * Dynamic Balance Training Frequency of Treatment Expected * 7 visits/week Duration of Treatment Expected * 2 weeks Discharge Recommendations * Senior Care Unit Discharge Recommendation - DME * Rolling Walker needed * in order to complete ADLs * and ambulation safely Comment Review of Relevant I have reviewed the following items mara (where applicable) has been applied. Labs Laboratory Tests Test 11/07/20 08:11 11/07/20 11:44 11/07/20 16:51 11/07/20 22:32 Glucose (Fingerstick) 86 mg/dL (70-99) 132 mg/dL (70-99) 147 mg/dL (70-99) 172 mg/dL (70-99) Test 11/08/20 06:40 11/08/20 08:05 11/08/20 11:30 11/08/20 16:28 White Blood Count 7.7 x10^3/uL (4.0-11.0) Red Blood Count 2.91 x10^6/uL (4.30-5.70) Hemoglobin 8.5 g/dL (13.0-17.5) Hematocrit 26.2 % (39.0-53.0) Mean Corpuscular Volume 90 fL (79-100) Mean Corpuscular Hemoglobin 29 pg (25-35) Mean Corpuscular Hemoglobin Concent 32 g/dL (31-37) Red Cell Distribution Width 15.8 % (11.5-14.5) Platelet Count 182 x10^3/uL (140-400) Neutrophils (%) (Auto) 66 % (31-73) Lymphocytes (%) (Auto) 19 % (24-48) Monocytes (%) (Auto) 10 % (0-9) Eosinophils (%) (Auto) 5 % (0-3) Basophils (%) (Auto) 1 % (0-3) Neutrophils # (Auto) 5.0 x10^3/uL (1.8-7.7) Lymphocytes # (Auto) 1.5 x10^3/uL (1.0-4.8) Monocytes # (Auto) 0.8 x10^3/uL (0.0-1.1) Eosinophils # (Auto) 0.3 x10^3/uL (0.0-0.7) Basophils # (Auto) 0.1 x10^3/uL (0.0-0.2) Sodium Level 136 mmol/L (136-145) Potassium Level 4.1 mmol/L (3.5-5.1) Chloride Level 103 mmol/L (98-107) Carbon Dioxide Level 21 mmol/L (21-32) Anion Gap 12 (6-14) Blood Urea Nitrogen 82 mg/dL (8-26) Creatinine 3.4 mg/dL (0.7-1.3) Estimated GFR (Cockcroft-Gault) 17.8 BUN/Creatinine Ratio 24 (6-20) Glucose Level 144 mg/dL (70-99) Calcium Level 8.1 mg/dL (8.5-10.1) Magnesium Level 2.5 mg/dL (1.8-2.4) Total Bilirubin 1.0 mg/dL (0.2-1.0) Aspartate Amino Transf (AST/SGOT) 16 U/L (15-37) Alanine Aminotransferase (ALT/SGPT) 17 U/L (16-63) Alkaline Phosphatase 94 U/L (46-116) Total Protein 5.8 g/dL (6.4-8.2) Albumin 2.8 g/dL (3.4-5.0) Albumin/Globulin Ratio 0.9 (1.0-1.7) Thyroid Stimulating Hormone (TSH) 1.772 uIU/mL (0.358-3.74) Glucose (Fingerstick) 146 mg/dL (70-99) 168 mg/dL (70-99) 205 mg/dL (70-99) Test 11/08/20 20:15 11/08/20 20:32 11/09/20 06:20 11/09/20 07:46 Glucose (Fingerstick) 153 mg/dL (70-99) 145 mg/dL (70-99) 118 mg/dL (70-99) White Blood Count 8.7 x10^3/uL (4.0-11.0) Red Blood Count 3.11 x10^6/uL (4.30-5.70) Hemoglobin 9.2 g/dL (13.0-17.5) Hematocrit 28.5 % (39.0-53.0) Mean Corpuscular Volume 92 fL (79-100) Mean Corpuscular Hemoglobin 30 pg (25-35) Mean Corpuscular Hemoglobin Concent 32 g/dL (31-37) Red Cell Distribution Width 16.3 % (11.5-14.5) Platelet Count 200 x10^3/uL (140-400) Neutrophils (%) (Auto) 60 % (31-73) Lymphocytes (%) (Auto) 22 % (24-48) Monocytes (%) (Auto) 10 % (0-9) Eosinophils (%) (Auto) 6 % (0-3) Basophils (%) (Auto) 1 % (0-3) Neutrophils # (Auto) 5.2 x10^3/uL (1.8-7.7) Lymphocytes # (Auto) 2.0 x10^3/uL (1.0-4.8) Monocytes # (Auto) 0.9 x10^3/uL (0.0-1.1) Eosinophils # (Auto) 0.6 x10^3/uL (0.0-0.7) Basophils # (Auto) 0.1 x10^3/uL (0.0-0.2) Sodium Level 135 mmol/L (136-145) Potassium Level 3.9 mmol/L (3.5-5.1) Chloride Level 104 mmol/L (98-107) Carbon Dioxide Level 20 mmol/L (21-32) Anion Gap 11 (6-14) Blood Urea Nitrogen 89 mg/dL (8-26) Creatinine 3.7 mg/dL (0.7-1.3) Estimated GFR (Cockcroft-Gault) 16.2 BUN/Creatinine Ratio 24 (6-20) Glucose Level 122 mg/dL (70-99) Calcium Level 8.4 mg/dL (8.5-10.1) Total Bilirubin 1.1 mg/dL (0.2-1.0) Aspartate Amino Transf (AST/SGOT) 19 U/L (15-37) Alanine Aminotransferase (ALT/SGPT) 16 U/L (16-63) Alkaline Phosphatase 103 U/L (46-116) Total Protein 6.2 g/dL (6.4-8.2) Albumin 2.9 g/dL (3.4-5.0) Albumin/Globulin Ratio 0.9 (1.0-1.7) Laboratory Tests Test 11/08/20 11:30 11/08/20 16:28 11/08/20 20:15 11/08/20 20:32 Glucose (Fingerstick) 168 mg/dL (70-99) 205 mg/dL (70-99) 153 mg/dL (70-99) 145 mg/dL (70-99) Test 11/09/20 06:20 11/09/20 07:46 White Blood Count 8.7 x10^3/uL (4.0-11.0) Red Blood Count 3.11 x10^6/uL (4.30-5.70) Hemoglobin 9.2 g/dL (13.0-17.5) Hematocrit 28.5 % (39.0-53.0) Mean Corpuscular Volume 92 fL (79-100) Mean Corpuscular Hemoglobin 30 pg (25-35) Mean Corpuscular Hemoglobin Concent 32 g/dL (31-37) Red Cell Distribution Width 16.3 % (11.5-14.5) Platelet Count 200 x10^3/uL (140-400) Neutrophils (%) (Auto) 60 % (31-73) Lymphocytes (%) (Auto) 22 % (24-48) Monocytes (%) (Auto) 10 % (0-9) Eosinophils (%) (Auto) 6 % (0-3) Basophils (%) (Auto) 1 % (0-3) Neutrophils # (Auto) 5.2 x10^3/uL (1.8-7.7) Lymphocytes # (Auto) 2.0 x10^3/uL (1.0-4.8) Monocytes # (Auto) 0.9 x10^3/uL (0.0-1.1) Eosinophils # (Auto) 0.6 x10^3/uL (0.0-0.7) Basophils # (Auto) 0.1 x10^3/uL (0.0-0.2) Sodium Level 135 mmol/L (136-145) Potassium Level 3.9 mmol/L (3.5-5.1) Chloride Level 104 mmol/L (98-107) Carbon Dioxide Level 20 mmol/L (21-32) Anion Gap 11 (6-14) Blood Urea Nitrogen 89 mg/dL (8-26) Creatinine 3.7 mg/dL (0.7-1.3) Estimated GFR (Cockcroft-Gault) 16.2 BUN/Creatinine Ratio 24 (6-20) Glucose Level 122 mg/dL (70-99) Calcium Level 8.4 mg/dL (8.5-10.1) Total Bilirubin 1.1 mg/dL (0.2-1.0) Aspartate Amino Transf (AST/SGOT) 19 U/L (15-37) Alanine Aminotransferase (ALT/SGPT) 16 U/L (16-63) Alkaline Phosphatase 103 U/L (46-116) Total Protein 6.2 g/dL (6.4-8.2) Albumin 2.9 g/dL (3.4-5.0) Albumin/Globulin Ratio 0.9 (1.0-1.7) Glucose (Fingerstick) 118 mg/dL (70-99) Medications Current Medications Pantoprazole Sodium 80 mg/ Sodium Chloride 100 ml @ 10 mls/hr Q10H IV Last administered on 11/07/20at 17:12; Start 11/04/20 at 15:15; Stop 11/08/20 at 07:19; Status DC Pantoprazole Sodium (PROTONIX VIAL for IV PUSH) 80 mg 1X ONCE IVP Last administered on 11/04/20at 15:23; Start 11/04/20 at 15:15; Stop 11/04/20 at 15:16; Status DC Sodium Chloride 1,000 ml @ 1,000 mls/hr 1X ONCE IV Last administered on 11/04/20at 15:22; Start 11/04/20 at 15:15; Stop 11/04/20 at 16:14; Status DC Metoprolol Succinate (Toprol Xl) 50 mg DAILY PO Last administered on 11/06/20at 09:50; Start 11/05/20 at 09:00; Stop 11/07/20 at 07:51; Status DC Insulin Glargine (Lantus Syringe) 15 unit QHS SQ Last administered on 11/08/20at 20:16; Start 11/04/20 at 21:00 Ondansetron HCl (Zofran) 4 mg PRN Q4HRS PRN IV NAUSEA/VOMITING; Start 11/04/20 at 17:30 Acetaminophen (Tylenol Supp) 650 mg PRN Q4HRS PRN NC TEMP OVER 100.4F OR MILD PAIN; Start 11/04/20 at 17:30 Fentanyl Citrate (Fentanyl 2ml Vial) 25 mcg PRN Q2HR PRN IVP PAIN; Start 11/04/20 at 17:30 Insulin Human Lispro (HumaLOG) 0-9 UNITS Q6HRS SQ Last administered on 11/04/20at 21:29; Start 11/04/20 at 18:00; Stop 11/08/20 at 10:44; Status DC Dextrose (Dextrose 50%-Water Syringe) 12.5 gm PRN Q15MIN PRN IV SEE COMMENTS; Start 11/04/20 at 17:30 Furosemide (Lasix) 40 mg 1X ONCE IVP Last administered on 11/05/20at 11:54; Start 11/05/20 at 07:00; Stop 11/05/20 at 07:01; Status DC Propofol (Diprivan) 200 mg STK-MED ONCE IV ; Start 11/05/20 at 09:27; Stop at 09:27; Status DC Lidocaine HCl (Lidocaine Pf 2% Vial) 5 ml STK-MED ONCE .ROUTE ; Start 11/05/20 at 09:27; Stop 11/05/20 at 09:27; Status DC Hydralazine HCl (Apresoline) 50 mg TID PO Last administered on 11/08/20at 09:28; Start 11/06/20 at 10:00; Stop 11/08/20 at 14:04; Status DC Metoprolol Succinate (Toprol Xl) 25 mg DAILY PO ; Start 11/07/20 at 09:00; Stop 11/08/20 at 08:50; Status DC Pantoprazole Sodium (PROTONIX VIAL for IV PUSH) 40 mg DAILYAC IVP Last administered on 11/08/20at 07:29; Start 11/08/20 at 07:30; Stop 11/08/20 at 10:47; Status DC Insulin Human Lispro (HumaLOG) 0-9 UNITS TIDBFRMEAL SQ Last administered on 11/08/20at 17:19; Start 11/08/20 at 11:30 Pantoprazole Sodium (Protonix) 40 mg DAILYAC PO ; Start 11/09/20 at 07:30 Sodium Chloride 500 ml @ 500 mls/hr 1X ONCE IV Last administered on 11/08/20at 11:30; Start 11/08/20 at 11:15; Stop 11/08/20 at 12:14; Status DC Cetirizine HCl (ZyrTEC) 10 mg DAILY PO Last administered on 11/08/20at 11:29; Start 11/08/20 at 11:30 Cefazolin Sodium/ Dextrose 50 ml @ 100 mls/hr 1X ONCE IV ; Start 11/08/20 at 13:00; Stop 11/08/20 at 13:29; Status Cancel Cefazolin Sodium/ Dextrose 50 ml @ 100 mls/hr 1X ONCE IV ; Start 11/09/20 at 08:00; Stop 11/09/20 at 08:29 Hydralazine HCl (Apresoline) 25 mg TID PO Last administered on 11/08/20at 20:12; Start 11/08/20 at 21:00 Active Scripts Active Metoprolol Succinate ( Xl ) (Metoprolol Succinate) 25 Mg Tab.er.24h 50 Mg PO DAILY 30 Days Reported Entecavir 0.5 Mg Tablet 0.5 Mg PO DAILY Eliquis (Apixaban) 5 Mg Tablet 5 Mg PO BID Hydralazine Hcl 50 Mg Tablet 1 Tab PO TID Hydrochlorothiazide Tablet (Hydrochlorothiazide) 12.5 Mg Tablet 12.5 Mg PO DAILY Slow Release Iron (Ferrous Sulfate) 160 Mg Tablet.er 160 Mg PO DAILY Losartan Potassium 50 Mg Tablet 50 Mg PO DAILY Aspirin Ec (Aspirin) 81 Mg Tablet.dr 1 Tab PO DAILY Novolin R (Insulin Regular, Human) 100 Unit/1 Ml Vial 10 Unit IJ TIDAC Lantus Solostar (Insulin Glargine,Hum.rec.anlog) 100 Unit/1 Ml Insuln.pen 30 Unit SQ QHS Buspirone Hcl 10 Mg Tablet 1 Tab PO TID PRN PRN Potassium Chloride (Potassium Chloride) 20 Meq Tablet.er 10 Meq PO DAILY Atorvastatin Calcium 40 Mg Tablet 40 Mg PO HS Allopurinol 100 Mg Tablet 100 Mg PO DAILY Furosemide 40 Mg Tablet 40 Mg PO BID 30 Days Vitals/I & O Vital Sign - Last 24 Hours 11/08/20 11/08/20 11/08/20 11/08/20 09:28 10:33 14:17 19:30 Temp 98.0 97.7 97.6 98.0 97.7 97.6 Pulse 34 38 33 36 Resp 18 18 18 B/P (MAP) 140/63 112/54 (73) 138/65 (89) 147/65 (92) Pulse Ox 97 96 94 O2 Delivery Room Air Room Air Room Air 11/08/20 11/08/20 11/08/20 11/09/20 19:50 20:12 22:45 02:45 Temp 97.9 97.7 97.9 97.7 Pulse 36 31 33 Resp 16 18 B/P (MAP) 147/65 141/65 (90) 137/62 (87) Pulse Ox 97 95 O2 Delivery Room Air Room Air Room Air 11/09/20 07:00 Temp 97.9 97.9 Pulse 34 Resp 16 B/P (MAP) 142/58 (86) Pulse Ox 93 O2 Delivery Room Air Intake and Output 11/08/20 11/08/20 11/09/20 15:00 23:00 07:00 Intake Total 520 ml 440 ml 100 ml Output Total 100 ml Balance 520 ml 340 ml 100 ml Justicifation of Admission Dx: Justifications for Admission: Justification of Admission Dx: Yes SURY PATTERSON MD Nov 09, 2020 08:09
--- NOTE | 2020-11-09 08:11 | PDOC ---
PULMONARY PROGRESS NOTES DATE: 11/09/20 TIME: 08:11 Vitals Vital Signs Date Time Temp Pulse Resp B/P (MAP) Pulse Ox O2 Delivery O2 Flow Rate FiO2 11/09/20 07:00 97.9 34 16 142/58 (86) 93 Room Air 97.9 Lungs: Clear, Other Cardiovascular: S1, S2 Labs Laboratory Tests Test 11/07/20 11:44 11/07/20 16:51 11/07/20 22:32 11/08/20 06:40 Glucose (Fingerstick) 132 mg/dL (70-99) 147 mg/dL (70-99) 172 mg/dL (70-99) White Blood Count 7.7 x10^3/uL (4.0-11.0) Red Blood Count 2.91 x10^6/uL (4.30-5.70) Hemoglobin 8.5 g/dL (13.0-17.5) Hematocrit 26.2 % (39.0-53.0) Mean Corpuscular Volume 90 fL (79-100) Mean Corpuscular Hemoglobin 29 pg (25-35) Mean Corpuscular Hemoglobin Concent 32 g/dL (31-37) Red Cell Distribution Width 15.8 % (11.5-14.5) Platelet Count 182 x10^3/uL (140-400) Neutrophils (%) (Auto) 66 % (31-73) Lymphocytes (%) (Auto) 19 % (24-48) Monocytes (%) (Auto) 10 % (0-9) Eosinophils (%) (Auto) 5 % (0-3) Basophils (%) (Auto) 1 % (0-3) Neutrophils # (Auto) 5.0 x10^3/uL (1.8-7.7) Lymphocytes # (Auto) 1.5 x10^3/uL (1.0-4.8) Monocytes # (Auto) 0.8 x10^3/uL (0.0-1.1) Eosinophils # (Auto) 0.3 x10^3/uL (0.0-0.7) Basophils # (Auto) 0.1 x10^3/uL (0.0-0.2) Sodium Level 136 mmol/L (136-145) Potassium Level 4.1 mmol/L (3.5-5.1) Chloride Level 103 mmol/L (98-107) Carbon Dioxide Level 21 mmol/L (21-32) Anion Gap 12 (6-14) Blood Urea Nitrogen 82 mg/dL (8-26) Creatinine 3.4 mg/dL (0.7-1.3) Estimated GFR (Cockcroft-Gault) 17.8 BUN/Creatinine Ratio 24 (6-20) Glucose Level 144 mg/dL (70-99) Calcium Level 8.1 mg/dL (8.5-10.1) Magnesium Level 2.5 mg/dL (1.8-2.4) Total Bilirubin 1.0 mg/dL (0.2-1.0) Aspartate Amino Transf (AST/SGOT) 16 U/L (15-37) Alanine Aminotransferase (ALT/SGPT) 17 U/L (16-63) Alkaline Phosphatase 94 U/L (46-116) Total Protein 5.8 g/dL (6.4-8.2) Albumin 2.8 g/dL (3.4-5.0) Albumin/Globulin Ratio 0.9 (1.0-1.7) Thyroid Stimulating Hormone (TSH) 1.772 uIU/mL (0.358-3.74) Test 11/08/20 08:05 11/08/20 11:30 11/08/20 16:28 11/08/20 20:15 Glucose (Fingerstick) 146 mg/dL (70-99) 168 mg/dL (70-99) 205 mg/dL (70-99) 153 mg/dL (70-99) Test 11/08/20 20:32 11/09/20 06:20 11/09/20 07:46 Glucose (Fingerstick) 145 mg/dL (70-99) 118 mg/dL (70-99) White Blood Count 8.7 x10^3/uL (4.0-11.0) Red Blood Count 3.11 x10^6/uL (4.30-5.70) Hemoglobin 9.2 g/dL (13.0-17.5) Hematocrit 28.5 % (39.0-53.0) Mean Corpuscular Volume 92 fL (79-100) Mean Corpuscular Hemoglobin 30 pg (25-35) Mean Corpuscular Hemoglobin Concent 32 g/dL (31-37) Red Cell Distribution Width 16.3 % (11.5-14.5) Platelet Count 200 x10^3/uL (140-400) Neutrophils (%) (Auto) 60 % (31-73) Lymphocytes (%) (Auto) 22 % (24-48) Monocytes (%) (Auto) 10 % (0-9) Eosinophils (%) (Auto) 6 % (0-3) Basophils (%) (Auto) 1 % (0-3) Neutrophils # (Auto) 5.2 x10^3/uL (1.8-7.7) Lymphocytes # (Auto) 2.0 x10^3/uL (1.0-4.8) Monocytes # (Auto) 0.9 x10^3/uL (0.0-1.1) Eosinophils # (Auto) 0.6 x10^3/uL (0.0-0.7) Basophils # (Auto) 0.1 x10^3/uL (0.0-0.2) Sodium Level 135 mmol/L (136-145) Potassium Level 3.9 mmol/L (3.5-5.1) Chloride Level 104 mmol/L (98-107) Carbon Dioxide Level 20 mmol/L (21-32) Anion Gap 11 (6-14) Blood Urea Nitrogen 89 mg/dL (8-26) Creatinine 3.7 mg/dL (0.7-1.3) Estimated GFR (Cockcroft-Gault) 16.2 BUN/Creatinine Ratio 24 (6-20) Glucose Level 122 mg/dL (70-99) Calcium Level 8.4 mg/dL (8.5-10.1) Total Bilirubin 1.1 mg/dL (0.2-1.0) Aspartate Amino Transf (AST/SGOT) 19 U/L (15-37) Alanine Aminotransferase (ALT/SGPT) 16 U/L (16-63) Alkaline Phosphatase 103 U/L (46-116) Total Protein 6.2 g/dL (6.4-8.2) Albumin 2.9 g/dL (3.4-5.0) Albumin/Globulin Ratio 0.9 (1.0-1.7) Laboratory Tests Test 11/08/20 11:30 11/08/20 16:28 11/08/20 20:15 11/08/20 20:32 Glucose (Fingerstick) 168 mg/dL (70-99) 205 mg/dL (70-99) 153 mg/dL (70-99) 145 mg/dL (70-99) Test 11/09/20 06:20 11/09/20 07:46 White Blood Count 8.7 x10^3/uL (4.0-11.0) Red Blood Count 3.11 x10^6/uL (4.30-5.70) Hemoglobin 9.2 g/dL (13.0-17.5) Hematocrit 28.5 % (39.0-53.0) Mean Corpuscular Volume 92 fL (79-100) Mean Corpuscular Hemoglobin 30 pg (25-35) Mean Corpuscular Hemoglobin Concent 32 g/dL (31-37) Red Cell Distribution Width 16.3 % (11.5-14.5) Platelet Count 200 x10^3/uL (140-400) Neutrophils (%) (Auto) 60 % (31-73) Lymphocytes (%) (Auto) 22 % (24-48) Monocytes (%) (Auto) 10 % (0-9) Eosinophils (%) (Auto) 6 % (0-3) Basophils (%) (Auto) 1 % (0-3) Neutrophils # (Auto) 5.2 x10^3/uL (1.8-7.7) Lymphocytes # (Auto) 2.0 x10^3/uL (1.0-4.8) Monocytes # (Auto) 0.9 x10^3/uL (0.0-1.1) Eosinophils # (Auto) 0.6 x10^3/uL (0.0-0.7) Basophils # (Auto) 0.1 x10^3/uL (0.0-0.2) Sodium Level 135 mmol/L (136-145) Potassium Level 3.9 mmol/L (3.5-5.1) Chloride Level 104 mmol/L (98-107) Carbon Dioxide Level 20 mmol/L (21-32) Anion Gap 11 (6-14) Blood Urea Nitrogen 89 mg/dL (8-26) Creatinine 3.7 mg/dL (0.7-1.3) Estimated GFR (Cockcroft-Gault) 16.2 BUN/Creatinine Ratio 24 (6-20) Glucose Level 122 mg/dL (70-99) Calcium Level 8.4 mg/dL (8.5-10.1) Total Bilirubin 1.1 mg/dL (0.2-1.0) Aspartate Amino Transf (AST/SGOT) 19 U/L (15-37) Alanine Aminotransferase (ALT/SGPT) 16 U/L (16-63) Alkaline Phosphatase 103 U/L (46-116) Total Protein 6.2 g/dL (6.4-8.2) Albumin 2.9 g/dL (3.4-5.0) Albumin/Globulin Ratio 0.9 (1.0-1.7) Glucose (Fingerstick) 118 mg/dL (70-99) Medications Active Scripts Medications Dose Route/Sig Max Daily Dose Days Date Category Entecavir 0.5 Mg Tablet 0.5 Mg PO DAILY 11/05/20 Reported Eliquis (Apixaban) 5 Mg Tablet 5 Mg PO BID 11/04/20 Reported Hydralazine Hcl 50 Mg Tablet 1 Tab PO TID 11/04/20 Reported Hydrochlorothiazide Tablet (Hydrochlorothiazide) 12.5 Mg Tablet 12.5 Mg PO DAILY 11/04/20 Reported Slow Release Iron (Ferrous Sulfate) 160 Mg Tablet.er 160 Mg PO DAILY 11/04/20 Reported Losartan Potassium 50 Mg Tablet 50 Mg PO DAILY 11/04/20 Reported Aspirin Ec (Aspirin) 81 Mg Tablet.dr 1 Tab PO DAILY 04/09/19 Reported Metoprolol Succinate ( Xl ) (Metoprolol Succinate) 25 Mg Tab.er.24h 50 Mg PO DAILY 30 04/09/19 Rx Novolin R (Insulin Regular, Human) 100 Unit/1 Ml Vial 10 Unit IJ TIDAC 04/06/19 Reported Lantus Solostar (Insulin Glargine,Hum.rec.anlog) 100 Unit/1 Ml Insuln.pen 30 Unit SQ QHS 04/06/19 Reported Buspirone Hcl 10 Mg Tablet 1 Tab PO TID PRN PRN 04/06/19 Reported Potassium Chloride (Potassium Chloride) 20 Meq Tablet.er 10 Meq PO DAILY 11/29/13 Reported Atorvastatin Calcium 40 Mg Tablet 40 Mg PO HS 11/29/13 Reported Allopurinol 100 Mg Tablet 100 Mg PO DAILY 11/29/13 Reported Furosemide 40 Mg Tablet 40 Mg PO BID 30 11/29/13 Reported ROOSEVELT RICCI MD Nov 09, 2020 08:11
[2020-11-09] MEDS: ASPIRIN ENTERIC COATED 81 MG TABLET.DR. PO SCH (08:40)
[2020-11-09] MEDS: hydrALAZINE 25 MG TABLET PO SCH ×3 (08:41→20:22)
[2020-11-09] MEDS: CETIRIZINE HCL 10 MG TABLET. PO SCH (08:41)
[2020-11-09] MEDS: APIXABAN 5 MG TABLET. PO SCH ×2 (09:00→20:22)
--- NOTE | 2020-11-09 09:25 | PDOC ---
DATE OF SERVICE DATE: 11/09/20 TIME: 09:21 SUBJECTIVE ROS Denies any complaints. Scheduled for pacemaker later today. He thinks he has good UOP(per nursing not adequate )," it is dark becuase I am not drinking enough water " OBJECTIVE Vital Signs Vital Signs Date Time Temp Pulse Resp B/P (MAP) Pulse Ox O2 Delivery O2 Flow Rate FiO2 11/09/20 08:41 34 142/58 11/09/20 07:00 97.9 16 93 Room Air 97.9 I & 0 Intake and Output 11/09/20 07:00 Intake Total 1060 ml Output Total 100 ml Balance 960 ml Intake Oral 1060 ml Output Urine Total 100 ml # Voids 2 PHYSICAL EXAM Physical Exam General: NAD HEENT: Atraumatic, OM moist Neck supple Lungs: Clear to auscultation Heart: Bradycardic, ESM aortic) Abdomen: Soft, NT Extremities: No edema Neuro: grossly normal Psych/Mental Status: Mood NL No lowery, No cva or SP tenderness Skin No rash DIAGNOSIS/ASSESSMENT Assessment & Plan REBECCA- etiology - Cardiorenal/ATN , Bradycardic , GI blood loss , Mildly hypotensive .Worsening renal function Currently Non Oliguric . E-Lytes and bicarb stable Supportive care, Strict I/O (? not recorded) , daily standing weight Renal US ordered - no hydronephrosis e/o MARINO Avoid nephrotoxins , IV NS bouls x 1, Diuretics held CKD stage 3B - Follows with Dr. Roca, baseline Cr per [facility] records appears to be 1.8-2.0 Renal calculus - RK- Possible intrarenal stones. LK Possible intrarenal stones to include a 13 mm focus of increased echogenicity at the upper pole.No e/o obstruction reported . Pt denies any past history Acute blood loss anemia secondary to GIB. s/p cauterization of bleeding antral ulcer by GI team. s/p transfusion. Hgb at 8.5. currently on proton pump inhibitors. Permanent AFIB; with present slow ventricular response. Metoprolol held (last dose 4/3 am), HR remains in mid 30's. Lowest 27 this am. Reports occasional dizziness, fatigue. Recent echo with normal LV systolic function with mild to moderate aortic stenosis. Possible plan for permanent pacemaker due to SSS, symptomatic bradycardia CAD; s/p PCI/RHEA to LAD PAD s/p past orbital atherectomy/[employer] to right posterior tibial artery. Hypertension; BP mildly below his baseline . IVF small bolus Diabetes, II; as per IM COMMENT/RELEVANT DATA Meds Current Medications Medications (Trade) Dose Ordered Sig/Redd Start Time Stop Time Status Last Admin Dose Admin Acetaminophen (Tylenol Supp) 650 mg PRN Q4HRS PRN 11/04/20 17:30 Apixaban (Eliquis) 5 mg BID 11/09/20 09:00 Aspirin (Ecotrin) 81 mg DAILY 11/09/20 09:00 11/09/20 08:40 81 MG Atorvastatin Calcium (Lipitor) 40 mg HS 11/09/20 21:00 Bacitracin 88945 unit/Sodium Chloride 250 ml @ 250 mls/hr 1X ONCE 11/09/20 10:00 11/09/20 10:59 Buspirone HCl (Buspar) 10 mg TID PRN PRN 11/09/20 08:15 Cefazolin Sodium/ Dextrose 50 ml @ 100 mls/hr 1X ONCE 11/09/20 08:00 11/09/20 08:29 DC Cetirizine HCl (ZyrTEC) 10 mg DAILY 11/08/20 11:30 11/09/20 08:41 10 MG Dextrose (Dextrose 50%-Water Syringe) 12.5 gm PRN Q15MIN PRN 11/04/20 17:30 Fentanyl Citrate (Fentanyl 2ml Vial) 25 mcg PRN Q2HR PRN 11/04/20 17:30 Furosemide (Lasix) 40 mg 1X ONCE 11/05/20 07:00 11/05/20 07:01 DC 11/05/20 11:54 40 MG Hydralazine HCl (Apresoline) 25 mg TID 11/08/20 21:00 11/09/20 08:41 25 MG Insulin Glargine (Lantus Syringe) 15 unit QHS 11/04/20 21:00 11/08/20 20:16 15 UNIT Insulin Human Lispro (HumaLOG) 0-9 UNITS TIDBFRMEAL 11/08/20 11:30 11/08/20 17:19 5 UNITS Lidocaine HCl (Lidocaine Pf 2% Vial) 5 ml STK-MED ONCE 11/05/20 09:27 11/05/20 09:27 DC Metoprolol Succinate (Toprol Xl) 25 mg DAILY 11/07/20 09:00 11/08/20 08:50 DC Ondansetron HCl (Zofran) 4 mg PRN Q4HRS PRN 11/04/20 17:30 Pantoprazole Sodium (PROTONIX VIAL for IV PUSH) 40 mg DAILYAC 11/08/20 07:30 11/08/20 10:47 DC 11/08/20 07:29 40 MG Pantoprazole Sodium (Protonix) 40 mg DAILYAC 11/09/20 07:30 11/09/20 08:41 40 MG Pantoprazole Sodium 80 mg/ Sodium Chloride 100 ml @ 10 mls/hr Q10H 11/04/20 15:15 11/08/20 07:19 DC 11/07/20 17:12 10 MLS/HR Propofol (Diprivan) 200 mg STK-MED ONCE 11/05/20 09:27 11/05/20 09:27 DC Sodium Chloride 500 ml @ 500 mls/hr 1X ONCE 11/08/20 11:15 11/08/20 12:14 DC 11/08/20 11:30 500 MLS/HR Lab Laboratory Tests Test 11/08/20 11:30 11/08/20 16:28 11/08/20 20:15 11/08/20 20:32 Glucose (Fingerstick) 168 mg/dL (70-99) 205 mg/dL (70-99) 153 mg/dL (70-99) 145 mg/dL (70-99) Test 11/09/20 06:20 11/09/20 07:46 White Blood Count 8.7 x10^3/uL (4.0-11.0) Red Blood Count 3.11 x10^6/uL (4.30-5.70) Hemoglobin 9.2 g/dL (13.0-17.5) Hematocrit 28.5 % (39.0-53.0) Mean Corpuscular Volume 92 fL (79-100) Mean Corpuscular Hemoglobin 30 pg (25-35) Mean Corpuscular Hemoglobin Concent 32 g/dL (31-37) Red Cell Distribution Width 16.3 % (11.5-14.5) Platelet Count 200 x10^3/uL (140-400) Neutrophils (%) (Auto) 60 % (31-73) Lymphocytes (%) (Auto) 22 % (24-48) Monocytes (%) (Auto) 10 % (0-9) Eosinophils (%) (Auto) 6 % (0-3) Basophils (%) (Auto) 1 % (0-3) Neutrophils # (Auto) 5.2 x10^3/uL (1.8-7.7) Lymphocytes # (Auto) 2.0 x10^3/uL (1.0-4.8) Monocytes # (Auto) 0.9 x10^3/uL (0.0-1.1) Eosinophils # (Auto) 0.6 x10^3/uL (0.0-0.7) Basophils # (Auto) 0.1 x10^3/uL (0.0-0.2) Sodium Level 135 mmol/L (136-145) Potassium Level 3.9 mmol/L (3.5-5.1) Chloride Level 104 mmol/L (98-107) Carbon Dioxide Level 20 mmol/L (21-32) Anion Gap 11 (6-14) Blood Urea Nitrogen 89 mg/dL (8-26) Creatinine 3.7 mg/dL (0.7-1.3) Estimated GFR (Cockcroft-Gault) 16.2 BUN/Creatinine Ratio 24 (6-20) Glucose Level 122 mg/dL (70-99) Calcium Level 8.4 mg/dL (8.5-10.1) Total Bilirubin 1.1 mg/dL (0.2-1.0) Aspartate Amino Transf (AST/SGOT) 19 U/L (15-37) Alanine Aminotransferase (ALT/SGPT) 16 U/L (16-63) Alkaline Phosphatase 103 U/L (46-116) Total Protein 6.2 g/dL (6.4-8.2) Albumin 2.9 g/dL (3.4-5.0) Albumin/Globulin Ratio 0.9 (1.0-1.7) Glucose (Fingerstick) 118 mg/dL (70-99) Results All relevant outside records, renal labs, imaging studies, telemetry/EKG's were reviewed. Justicifation of Admission Dx: Justifications for Admission: Justification of Admission Dx: Yes BEATRIZ IBARRA MD Nov 09, 2020 09:25
--- NOTE | 2020-11-09 09:54 | PDOC ---
Date of Service: DATE: 11/09/20 TIME: 09:52 Subjective: Subjective: No GI complaints, no bleeding. present. Objective: Objective: D/w nurse - pacemaker today, possible DC tomorrow. Vital Signs: Vital Signs Date Time Temp Pulse Resp B/P (MAP) Pulse Ox O2 Delivery O2 Flow Rate FiO2 11/09/20 08:41 34 142/58 11/09/20 08:00 Room Air 11/09/20 07:00 97.9 16 93 97.9 Labs: Laboratory Tests Test 11/08/20 11:30 11/08/20 16:28 11/08/20 20:15 11/08/20 20:32 Glucose (Fingerstick) 168 mg/dL 205 mg/dL 153 mg/dL 145 mg/dL Test 11/09/20 06:20 11/09/20 07:46 White Blood Count 8.7 x10^3/uL Red Blood Count 3.11 x10^6/uL Hemoglobin 9.2 g/dL Hematocrit 28.5 % Mean Corpuscular Volume 92 fL Mean Corpuscular Hemoglobin 30 pg Mean Corpuscular Hemoglobin Concent 32 g/dL Red Cell Distribution Width 16.3 % Platelet Count 200 x10^3/uL Neutrophils (%) (Auto) 60 % Lymphocytes (%) (Auto) 22 % Monocytes (%) (Auto) 10 % Eosinophils (%) (Auto) 6 % Basophils (%) (Auto) 1 % Neutrophils # (Auto) 5.2 x10^3/uL Lymphocytes # (Auto) 2.0 x10^3/uL Monocytes # (Auto) 0.9 x10^3/uL Eosinophils # (Auto) 0.6 x10^3/uL Basophils # (Auto) 0.1 x10^3/uL Sodium Level 135 mmol/L Potassium Level 3.9 mmol/L Chloride Level 104 mmol/L Carbon Dioxide Level 20 mmol/L Anion Gap 11 Blood Urea Nitrogen 89 mg/dL Creatinine 3.7 mg/dL Estimated GFR (Cockcroft-Gault) 16.2 BUN/Creatinine Ratio 24 Glucose Level 122 mg/dL Calcium Level 8.4 mg/dL Total Bilirubin 1.1 mg/dL Aspartate Amino Transf (AST/SGOT) 19 U/L Alanine Aminotransferase (ALT/SGPT) 16 U/L Alkaline Phosphatase 103 U/L Total Protein 6.2 g/dL Albumin 2.9 g/dL Albumin/Globulin Ratio 0.9 Glucose (Fingerstick) 118 mg/dL PE: GEN: NAD - in chair LUNGS: clear anteriorly HEART: bradycardic - HR 31 ABD: large, non-tender NEURO/PSYCH: A & O 3 A/P: s/p APC 4/2 Acute/chronic anemia - stable/improving REBECCA/CKD, CAD, PVD, A Fib COVID negative -- Okay w/ GI to resume ASA and Eliquis - d/w nurse. Continue PPI. Plan for outpt colonoscopy. Justicifation of Admission Dx: Justifications for Admission: Justification of Admission Dx: Yes FABBY ROBERTSON Nov 09, 2020 09:54
[2020-11-09] MEDS ORDERED: BACITRACIN 50,000 UNIT in IV NORMAL SALINE 250ML 250 ML IRR ONE (10:00)
[2020-11-09] MEDS ORDERED: fentaNYL PF VIAL 100 MCG/2 ML VIAL ONE (10:03)
[2020-11-09] MEDS ORDERED: MIDAZOLAM HCL/PF 5 MG/5 ML VIAL. ONE (10:03)
--- NOTE | 2020-11-09 10:15 | PDOC ---
MODERATE SEDATION ASSESSMENT RISKS/ALTERNATIVES Risks/Alternatives Risks and alternatives of this type of sedation and procedure discussed with: RISK/ALTERNATIVES: Patient H & P ON CHART H & P H & P on chart and reviewed for co-morbid conditions and appropriate labs. H&P ON CHART: Yes STATUS PREG STATUS ASSESSED: N/A MEDS/ALLERGIES REVIEWED Meds/Allergies Reviewed Medications and Allergies including time and route of recently administered narcotics and sedatives. MEDS/ALLERGIES REVIEWED: Yes ASA RATING ASA RATING: III AIRWAY ASSESSMENT Airway Assessment Airway patency, oral function limitations, presence of caps, crowns, dentures, partials, and ability to extend neck assessed. AIRWAY ASSESSMENT: Yes MALLAMPATI SCORE MALLAMPATI SCORE: II PRE-SEDATION ASSESSMENT PRE-SEDATION ASSESSMENT: Yes DICK LAZO MD Nov 09, 2020 10:15
[2020-11-09] MEDS ORDERED: LIDOCAINE 2%/EPI 1:100,000 20 ML VIAL. ONE (10:32)
[2020-11-09] MEDS ORDERED: IODIXANOL 320 MG/ML 100 ML VIAL. ONE (10:48)
[2020-11-09] MEDS ORDERED: LIDOCAINE 2%/EPI 1:100,000 20 ML VIAL. IJ ONE (11:00)
[2020-11-09] MEDS ORDERED: fentaNYL PF VIAL 100 MCG/2 ML VIAL IV ONE (11:00)
[2020-11-09] MEDS ORDERED: MIDAZOLAM HCL/PF 5 MG/5 ML VIAL. IV ONE (11:00)
[2020-11-09] MEDS ORDERED: IODIXANOL 320 MG/ML 100 ML VIAL. IV ONE (11:00)
--- NOTE | 2020-11-09 11:49 | CARD ---
MR#: [id number] Date of Study: 11/09/2020 Ordering Physician: DICK PRINCE, Referring Physician: DICK PRINCE, Tech: APPROVED REPORT PROCEDURES Implantation of Medtronic dual-chamber permanent pacemaker fl time: 4.5 min dose: 16.7 gycm2 contrast: 25 ml moderate sedation: 49 MINS INDICATIONS Sick sinus syndrome with severe symptomatic bradycardia, atrial fibrillation with slow ventricular re sponse PROCEDURE After explaining the risks, benefits, and alternative options, informed consent was obtained from the patient. The patient was brought to the cardiac catheterization lab and the left chest and shoulder were prepp ed and draped in a sterile manner. IV conscious sedation was used throughout procedure with appropriate monitoring and was performed in the presence of a registered nurse who was an independent trained observer other than the physician p erforming the procedure. During this case, Fluoroscopy and low osmolar contrast were used for imaging. Specimen(s) Removed: No Estimated Blood loss: 15 cc's. 30 cc of 2% lidocaine was infiltrated into the skin and subcutaneous tissues for local anesthesia. A n incision was made over the left infraclavicular fossa and using blunt dissection and cautery, a poc ket was created. Initial attempts to obtain venous access using fluoroscopy were unsuccessful. Cont rast injections were performed and left subclavian venogram was obtained. Venous access was then suc cessfully obtained in the left subclavian vein and nine and seven Sinhala sheaths inserted. A Medtronic bipolar active fixation right ventricular lead model 838896, serial number [id number] was positioned in the right ventricular apex under fluoroscopy guidance. Following this, a Medtronic bi polar active fixation right atrial lead model 717859, serial number [id number] was positioned in the right atrial appendage under fluoroscopy guidance. The leads were secured into place and were attac hed to a Medtronic permanent pacemaker generator model W3DR01, serial number [id number]. This was pl aced in the pocket that was subsequently closed in three layers. Hemostasis was secured. The right ventricular lead showed a sensing amplitude of 8.2 mV, impedance of 672 ohms and a threshol d of 0.3 V. The right atrial lead showed impedance of 531 ohms. Thresholds could not be obtained si nce patient was in atrial fibrillation. He tolerated the procedure well. There were no immediate co mplications. CONCLUSION Successful implantation of Medtronic dual-chamber permanent pacemaker for sick sinus syndrome. Signed by : Dick Prince, Electronically Approved : 11/09/2020 11:48:38
--- NOTE | 2020-11-09 12:09 | PATHOLOGY ---
[facility] Accession Number: [id number] . 01 Material submitted: . gastrointestinal site - ANTRUM BIOPSY . 01 Clinical history: . GI BLEED EGD R/O H PYLORI ANEMIA, GI BLEED . 02 Diagnosis: Gastric biopsies, antrum: - Chronic gastritis, mild. (STEVE:ernie; 11/08/2020) MBR 11/08/2020 1635 Local . 02 Comment: Sections of the gastric antral biopsy show congestion and mild chronic inflammation. A properly controlled immunoperoxidase stain for Helicobacter is negative for Helicobacter organisms. (JPM:ernie; 11/08/2020) . . . 02 Electronically signed: . Ilia Garibay MD, Pathologist NPI- [id number] . 01 Gross description: . Received in formalin labeled "Aleksey Nunn, antrum biopsy rule out H. pylori" are multiple garcia-brown soft tissue fragments measuring in aggregate 1.3 x 0.4 x 0.3 cm. The specimen is submitted entirely in A1. ([facility]; 11/06/2020) GZA/GZA 11/06/2020 1218 Local . 02 Pathologist provided ICD-10: K29.50 . 02 CPT . 371932, F44738 Specimen Comment: A courtesy copy of this report has been sent to [phone], [phone] Specimen Comment: [id number], , Specimen Comment: Report sent to ,,, Specimen Comment: A duplicate report has been generated due to demographic updates. Performed at: [address] [place], [place] [address] [address], [place], [place] [id number] MD Cesar Cuellar MD Phone: [phone] Performed at: [address] [id number] MD Ilia Garibay MD Phone: [phone]
[2020-11-09] MEDS: IV NORMAL SALINE 1000ML BAG 1,000 ML IV SCH (12:18)
--- NOTE | 2020-11-09 13:08 | NUR ---
SS following up with discharge planning. SS reviewed pt chart and discussed with pt RN. Pt is currently on room air. COVID19 negative. Pt having pacemaker placement today. PT/OT recommended residential unit. Pt accepted at [facility], ; fax [phone]. Probable discharge to [facility] tomorrow. SS will continue to follow for discharge planning.
--- NOTE | 2020-11-09 13:13 | RAD ---
XR CHEST 1V Clinical Indication: Reason: Post pacemaker / Spl. Instructions: / History: Comparison: AP chest April 06, 2019. Findings: There is left chest dual-chamber pacer. Atherosclerotic aortic arch. The cardiac size is upper limits of normal. There is stable elevation of right hemidiaphragm. There is right basilar atelectasis or s carring, similar to prior study. Small metallic fragments project over the left chest, unchanged. Int erstitial marking prominence is unchanged and may be chronic. No pleural abnormality is seen. Bones a ppear stable. IMPRESSION: 1. Left chest dual-chamber pacer. No pneumothorax. 2. Stable elevation of right hemidiaphragm and right basilar atelectasis or scarring. Electronically signed by: Tr Whitaker MD (11/09/2020 1:10 PM) [id number]
[2020-11-09] MEDS: METOPROLOL SUCC 24HR ER 50 MG TAB.ER.24H. PO SCH (16:52)
[2020-11-09] MEDS ORDERED: TEMAZEPAM 15 MG CAPSULE PO PRN (19:30)
[2020-11-09] MEDS: HYDROcodone/APAP 5/325MG 1 TAB TABLET PO PRN (19:32)
[2020-11-09] MEDS: busPIRone 10 MG TABLET. PO PRN (20:21)
[2020-11-09] MEDS: INSULIN GLARGINE SYRINGE. SQ SCH (20:23)
[2020-11-09] MEDS ORDERED: ATORVASTATIN CALCIUM 40 MG TABLET. PO SCH (21:00)
[2020-11-10] MEDS: IV NORMAL SALINE 1000ML BAG 1,000 ML IV SCH (01:20)
[2020-11-10 02:50] VITALS: BP 170/73
[2020-11-10 05:24] LABS: CALCIUM 8.1 mg/dL (8.5-10.1); CREATININE 3.3 mg/dL (0.7-1.3); GFR 18.5; POTASSIUM 3.7 mmol/L (3.5-5.1)
[2020-11-10 07:00] VITALS: BP 197/64
[2020-11-10] MEDS: INSULIN LISPRO 300 UNITS/3 ML VIAL. SQ SCH ×2 (07:30→12:55)
[2020-11-10] MEDS: APIXABAN 5 MG TABLET. PO SCH (08:43)
[2020-11-10] MEDS: hydrALAZINE 25 MG TABLET PO SCH ×2 (08:43→14:33)
[2020-11-10] MEDS: HYDROcodone/APAP 5/325MG 1 TAB TABLET PO PRN (08:44)
[2020-11-10] MEDS: ASPIRIN ENTERIC COATED 81 MG TABLET.DR. PO SCH (08:44)
[2020-11-10] MEDS: CETIRIZINE HCL 10 MG TABLET. PO SCH (08:44)
--- NOTE | 2020-11-10 08:44 | PDOC ---
PULMONARY PROGRESS NOTES DATE: 11/10/20 TIME: 08:44 Subjective Patient not more short of air. Vitals Vital Signs Date Time Temp Pulse Resp B/P (MAP) Pulse Ox O2 Delivery O2 Flow Rate FiO2 11/10/20 02:50 98.0 60 19 170/73 (105) 94 Room Air 98.0 11/09/20 11:30 2.0 ROS: No Nausea, No Chest Pain, No Abdominal Pain, No Increase Cough Lungs: Clear, Other Cardiovascular: S1, S2 Neuro Exam: Alert Extremities: Other (Mild edema) Skin: Warm Labs Laboratory Tests Test 11/08/20 11:30 11/08/20 16:28 11/08/20 20:15 11/08/20 20:32 Glucose (Fingerstick) 168 mg/dL (70-99) 205 mg/dL (70-99) 153 mg/dL (70-99) 145 mg/dL (70-99) Test 11/09/20 06:20 11/09/20 07:46 11/09/20 12:00 11/09/20 17:08 White Blood Count 8.7 x10^3/uL (4.0-11.0) Red Blood Count 3.11 x10^6/uL (4.30-5.70) Hemoglobin 9.2 g/dL (13.0-17.5) Hematocrit 28.5 % (39.0-53.0) Mean Corpuscular Volume 92 fL (79-100) Mean Corpuscular Hemoglobin 30 pg (25-35) Mean Corpuscular Hemoglobin Concent 32 g/dL (31-37) Red Cell Distribution Width 16.3 % (11.5-14.5) Platelet Count 200 x10^3/uL (140-400) Neutrophils (%) (Auto) 60 % (31-73) Lymphocytes (%) (Auto) 22 % (24-48) Monocytes (%) (Auto) 10 % (0-9) Eosinophils (%) (Auto) 6 % (0-3) Basophils (%) (Auto) 1 % (0-3) Neutrophils # (Auto) 5.2 x10^3/uL (1.8-7.7) Lymphocytes # (Auto) 2.0 x10^3/uL (1.0-4.8) Monocytes # (Auto) 0.9 x10^3/uL (0.0-1.1) Eosinophils # (Auto) 0.6 x10^3/uL (0.0-0.7) Basophils # (Auto) 0.1 x10^3/uL (0.0-0.2) Sodium Level 135 mmol/L (136-145) Potassium Level 3.9 mmol/L (3.5-5.1) Chloride Level 104 mmol/L (98-107) Carbon Dioxide Level 20 mmol/L (21-32) Anion Gap 11 (6-14) Blood Urea Nitrogen 89 mg/dL (8-26) Creatinine 3.7 mg/dL (0.7-1.3) Estimated GFR (Cockcroft-Gault) 16.2 BUN/Creatinine Ratio 24 (6-20) Glucose Level 122 mg/dL (70-99) Calcium Level 8.4 mg/dL (8.5-10.1) Total Bilirubin 1.1 mg/dL (0.2-1.0) Aspartate Amino Transf (AST/SGOT) 19 U/L (15-37) Alanine Aminotransferase (ALT/SGPT) 16 U/L (16-63) Alkaline Phosphatase 103 U/L (46-116) Total Protein 6.2 g/dL (6.4-8.2) Albumin 2.9 g/dL (3.4-5.0) Albumin/Globulin Ratio 0.9 (1.0-1.7) Glucose (Fingerstick) 118 mg/dL (70-99) 145 mg/dL (70-99) 177 mg/dL (70-99) Test 11/09/20 20:21 11/10/20 03:45 11/10/20 07:39 Glucose (Fingerstick) 147 mg/dL (70-99) 106 mg/dL (70-99) Sodium Level 140 mmol/L (136-145) Potassium Level 3.7 mmol/L (3.5-5.1) Chloride Level 106 mmol/L (98-107) Carbon Dioxide Level 21 mmol/L (21-32) Anion Gap 13 (6-14) Blood Urea Nitrogen 86 mg/dL (8-26) Creatinine 3.3 mg/dL (0.7-1.3) Estimated GFR (Cockcroft-Gault) 18.5 Glucose Level 100 mg/dL (70-99) Calcium Level 8.1 mg/dL (8.5-10.1) Laboratory Tests Test 11/09/20 12:00 11/09/20 17:08 11/09/20 20:21 11/10/20 03:45 Glucose (Fingerstick) 145 mg/dL (70-99) 177 mg/dL (70-99) 147 mg/dL (70-99) Sodium Level 140 mmol/L (136-145) Potassium Level 3.7 mmol/L (3.5-5.1) Chloride Level 106 mmol/L (98-107) Carbon Dioxide Level 21 mmol/L (21-32) Anion Gap 13 (6-14) Blood Urea Nitrogen 86 mg/dL (8-26) Creatinine 3.3 mg/dL (0.7-1.3) Estimated GFR (Cockcroft-Gault) 18.5 Glucose Level 100 mg/dL (70-99) Calcium Level 8.1 mg/dL (8.5-10.1) Test 11/10/20 07:39 Glucose (Fingerstick) 106 mg/dL (70-99) Medications Active Scripts Medications Dose Route/Sig Max Daily Dose Days Date Category Entecavir 0.5 Mg Tablet 0.5 Mg PO DAILY 11/05/20 Reported Eliquis (Apixaban) 5 Mg Tablet 5 Mg PO BID 11/04/20 Reported Hydralazine Hcl 50 Mg Tablet 1 Tab PO TID 11/04/20 Reported Hydrochlorothiazide Tablet (Hydrochlorothiazide) 12.5 Mg Tablet 12.5 Mg PO DAILY 11/04/20 Reported Slow Release Iron (Ferrous Sulfate) 160 Mg Tablet.er 160 Mg PO DAILY 11/04/20 Reported Losartan Potassium 50 Mg Tablet 50 Mg PO DAILY 11/04/20 Reported Aspirin Ec (Aspirin) 81 Mg Tablet.dr 1 Tab PO DAILY 04/09/19 Reported Metoprolol Succinate ( Xl ) (Metoprolol Succinate) 25 Mg Tab.er.24h 50 Mg PO DAILY 30 04/09/19 Rx Novolin R (Insulin Regular, Human) 100 Unit/1 Ml Vial 10 Unit IJ TIDAC 04/06/19 Reported Lantus Solostar (Insulin Glargine,Hum.rec.anlog) 100 Unit/1 Ml Insuln.pen 30 Unit SQ QHS 04/06/19 Reported Buspirone Hcl 10 Mg Tablet 1 Tab PO TID PRN PRN 04/06/19 Reported Potassium Chloride (Potassium Chloride) 20 Meq Tablet.er 10 Meq PO DAILY 11/29/13 Reported Atorvastatin Calcium 40 Mg Tablet 40 Mg PO HS 11/29/13 Reported Allopurinol 100 Mg Tablet 100 Mg PO DAILY 11/29/13 Reported Furosemide 40 Mg Tablet 40 Mg PO BID 30 11/29/13 Reported Impression . IMPRESSION: 1. Secondary pulmonary hypertension. His cardiac catheterization from 2018 showed left ventricular end diastolic pressure of 25. He has no significant tobacco history. He denies any history hypersomnia and never had any sleep study done. 2. Weakness present on admission secondary to anemia, status post esophagogastroduodenoscopy with gastric antrum ulcers, status post Argon plasma coagulation therapy. Feels better post-transfusion. 3. Chronic kidney disease. 4. History of atrial fibrillation. 5. Diastolic congestive heart failure. Clinically, compensated, currently on room air. 6. Status post dual pacemaker Plan . Respiratory status compensated, okay to discharge, no need for follow-up RECOMMENDATIONS: 1. From a pulmonary standpoint, he is stable. 2. I will do a baseline chest x-ray. 3. At this point, I do not see a need for sleep study. The patient denies symptoms of hypersomnia. 4. Weight loss is advised. 5. Follow renal recommendation. 6. Follow GI recommendations. ROOSEVELT RICCI MD Nov 10, 2020 08:44
[2020-11-10] MEDS: busPIRone 10 MG TABLET. PO PRN (08:45)
[2020-11-10] MEDS: METOPROLOL SUCC 24HR ER 50 MG TAB.ER.24H. PO SCH (08:51)
--- NOTE | 2020-11-10 08:52 | PDOC ---
YUDY SCOTT SAP BODS DEVELOPER 11/10/20 0852: CARDIO Progress Notes Date and Time Date of Service 11/10/20 Time of Evaluation 0830 Subjective Subjective: No Chest Pain, No shortness of breath, No Palpitations, No Dizziness Vitals Vitals Vital Signs Date Time Temp Pulse Resp B/P (MAP) Pulse Ox O2 Delivery O2 Flow Rate FiO2 11/10/20 08:44 Room Air 11/10/20 08:43 60 170/73 11/10/20 02:50 98.0 19 94 98.0 11/09/20 11:30 2.0 Weight Weight [ ] Input and Output Intake and Output Intake and Output 11/10/20 07:00 Intake Total 760 ml Output Total 650 ml Balance 110 ml Intake Oral 760 ml Output Urine Total 650 ml Laboratory Labs Laboratory Tests Test 11/09/20 12:00 11/09/20 17:08 11/09/20 20:21 11/10/20 03:45 Glucose (Fingerstick) 145 mg/dL (70-99) 177 mg/dL (70-99) 147 mg/dL (70-99) Sodium Level 140 mmol/L (136-145) Potassium Level 3.7 mmol/L (3.5-5.1) Chloride Level 106 mmol/L (98-107) Carbon Dioxide Level 21 mmol/L (21-32) Anion Gap 13 (6-14) Blood Urea Nitrogen 86 mg/dL (8-26) Creatinine 3.3 mg/dL (0.7-1.3) Estimated GFR (Cockcroft-Gault) 18.5 Glucose Level 100 mg/dL (70-99) Calcium Level 8.1 mg/dL (8.5-10.1) Test 11/10/20 07:39 Glucose (Fingerstick) 106 mg/dL (70-99) Physical Exam HEENT: Neck Supple W Full Motion Chest: Symmetric, Other (left chest PPM site soft and dry. Incision well ap proximated. Steristrips intact. No hematoma present ) LUNGS: Clear to Auscultation Heart: irregularly irregular (AFIB with slow ventricular rate) Abdomen: Soft N/T Extremities: Other (Bilateral healing foot ulcers)) Neurology: alert, oriented, follow commands Assessment Assessment 1. Acute blood loss anemia secondary to GIB. s/p cauterization of bleeding antral ulcer by GI team. s/p transfusion. Hgb at 9.2. Continue proton pump inhibitors. 2. CAD; s/p PCI/RHEA to LAD. clinically stable, CP free. 3. 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 Denies any claudication symptoms 4. Permanent AFIB; Recent echo with normal LV systolic function with mild to moderate aortic stenosis. 5. SSS, symptomatic bradycardia; s/p PPM implantation ([employer]). Post op device check and CXR WNL 5. Hypertension; controlled 6. Hyperlipidemia; statin 7. Diabetes, II; as per IM 8. REBECCA on CKD; Cr down to 3.3 today. as per renal. Recommendation Secondary prevention as able. Resume metoprolol GI recs noted. Continue Eliquis therapy. Will hold off on ASA for now. Will resume on an outpatient basis if anemia stable and no further bleeding Consider outpatient referral for LAAO Supportive care Plans to discharge to rehab facility where he will have wound monitored Follow up in our office with Dr. Prince as scheduled. Justicifation of Admission Dx: Justifications for Admission: Justification of Admission Dx: Yes DICK PRINCE MD 11/10/202104: CARDIO Progress Notes Assessment Assessment Patient seen and examined. Agree with AERONAUTICAL TEST ENGINEER's assessment and plan s/p PPM yesterday for SSS PPM interrogation normal and CXR without any pneumothorax CAD and PAD stable Resume eliquis for permanent AF We will consider resuming ASA as outpatient if GIB/anemia remain stable YUDY SCOTT APRN Nov 10, 2020 08:52 DICK PRINCE MD Nov 10, 2020 21:05
--- NOTE | 2020-11-10 08:55 | PDOC ---
PROGRESS NOTES Date of Service: DATE: 11/10/20 TIME: 08:55 Chief Complaint Chief Complaint IMPRESSION Acute blood loss anemia - symptomatic. transfused . Goal Hb > 8 give his CAD history. will consult GI for concern for UGIB given his uremia and consult cardiology for recs on eliquis longer term. IV protonix and blood transfusion ordered. antral gastric ulcer s/p APC treatment REBECCA - vasomotor nephropathy likely related to above, will not overhydrate given his CHF history, NEPHROLOGY CONSULTED CAD s/p LAD stent 04/08/2019 - Hold ASA for acute bleed. 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 Peripheral vascular disease - stable Morbid obesity - counseled on weight loss Hypertension. Afib - rate controlled. Will hold eliquis Diastolic CHF - chronic, stable currently Moderate tricuspid regurgitation with PAP of 68 mmHg. 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 Tinnitus - stable Uremia - will monitor, thought it was GI bleed, but now be etiology of bradycardia Bradycardia - EKG. Cardiology following. Hold BB, BRADYCARDIA PERSISTS antral gastric ulcer s/p APC treatment Severe pulmonary hypertension MORBID OBESITY, High risk of obesity, hypoventilation syndrome night-time mean oxygen saturation remained around 96% with a lowest of 89%. plan ADMIT FEN - Cardiac diet PPX - SCDs, protonix IV FULL CODE Dispo - inpatient nephrology consult ABDOMINAL SONO Cardiology consult pulm consult night-time oximetry desat study to exclude ROBB May resume anticoagulation at this time with stable Hg. consider full sleep study as outpt 4-05 d/w TATA eliquis stopped due to GI BLEEDING REPEAT EKG Moderate tricuspid regurgitation with PAP of 68 mmHg. unaware if he snores, lives alone , has trouble sleeping supine, will check hs oximetry study Discharge Recommendations * Jail Unit Discharge Recommendation - DME * Rolling Walker needed * in order to complete ADLs History of Present Illness History of Present Illness Mr Nunn is a 75yo [employer] w/ PMHx CAD s/p LAD stenting 2019, Afib, diastolic CHF, Diabetes-Type II, High Cholesterol, Hypertension, chronic bilateral foot wounds, h/o agent orange exposure who presents to ED with significant other c/o weakness and an outpatient Hb of 6.8. He has been feeling lightheaded and more short of breath lately but does not note any weight gain, orthopnea. He does have SIMPSON He was referred for colonoscopy in 2019 but due to COVID-19 it was deferred. On Eliquis for afib. Has been off brillinta after last year, does still take aspirin. He has not noted any blood in his stools, but they have been darker lately on deeper questioning. Review of systems negative for chest pain shortness of breath abdominal pain vomiting diaphoresis fevers or chills. All other review of systems negative. EKG appears to have left bundle branch block pattern. Irregularly irregular rhythm. ST segments show repolarization. Not suggestive of acute ischemia. Labs with WBC 9.9, Hb 6.7, platelets 236, INR 1.8, NA 139, K4.2, BUN 97, CR 2.5, glucose 193, albumin 3, troponin 0 Temperature within normal limits. Blood pressure 120/50. Patient is on metoprolol. Here his fecal occult blood test is positive. Started on Protonix bolus and IV and admitted for further care. 4: Hb 6.8 despite transfusion ordered 2 additional units of packed red blood cells. To EGD this morning with large antral ulcer that was treated. Still feeling lightheaded and dizzy. /: BUN 90, Cr 2.4. Hb up to 9.3. He is a bit anxious to go home. Did not get full therapy evaluation due to blood transfusion. I have let him know I am concerned about going home given his symptoms - d/w RN eliquis stopped due to GI BLEEDING REPEAT EKG TODAY - d/w RN eliquis stopped due to GI BLEEDING RESTART ELIQUIS AND ASA Bradycardic PACEMAKER TODAY short of breath and not able to work with therapy.WELL - d/w RN eliquis stopped due to GI BLEEDING RESTART ELIQUIS AND ASA 4-06 Bradycardic PACEMAKER 4-06 short of breath and not able to work with therapy.WELL d/w rn, cxr today Vitals Vitals Vital Signs Date Time Temp Pulse Resp B/P (MAP) Pulse Ox O2 Delivery O2 Flow Rate FiO2 11/10/20 08:51 60 170/73 11/10/20 08:44 Room Air 11/10/20 07:00 98.1 20 96 98.1 11/09/20 11:30 2.0 Physical Exam Physical Exam Physical Exam General: Alert, Oriented X3, Cooperative, NO distress HEENT: Atraumatic, PERRLA, EOMI, Mucous membr. moist/pink Lungs: Clear to auscultation, Normal air movement Heart: irregularly irregular Abdomen: Normal bowel sounds, Soft, No tenderness, No hepatosplenomegaly, No masses Male Genitals Exam: normal genitalia, normal prostate Rectal Exam: other (hemoccult postive) Extremities: No clubbing, No cyanosis, No edema, Normal pulses, No tenderness/swelling Skin: No rashes, No significant lesion, Other (Bilateral healing foot ulcers) Neuro: Normal gait, Normal speech, Strength at 5/5 X4 ext, Normal tone, Sensation intact, Cranial nerves 3-12 NL, Reflexes 2+ Psych/Mental Status: Mental status NL, Mood NL General: Alert, Oriented X3, Cooperative, No acute distress Heart: Regular rate, Other (Heart rate irregular, ESM aorticBRADY ) Lungs: Clear, Other Abdomen: Normal bowel sounds, Soft, No tenderness, No hepatosplenomegaly Extremities: No clubbing, No cyanosis, No edema Skin: No rashes, No significant lesion, Other (Bilateral healing foot ulcers) Labs LABS SEX: M STATUS: ADM IN LOCATION: [address] [place] [address] DATE OF SERVICE: NOCTURNAL OXIMETRY ATTENDING PHYSICIAN: Chris Persaud MD. The patient's mean oxygen saturation remained around 96% with a lowest of 89%. IMPRESSION: No clinically significant nocturnal hypoxia. RECOMMENDATION: If clinical suspicion for sleep disordered breathing is high, then consider doing full polysomnogram. IDALIA GORE MD DR: JAYESH/aline JOB#: [id number] / [id number] DICTATED BY: IDALIA GORE MD 11/10/20 0850 SIGNED BY: cc: ~[id number] Laboratory Tests Test 11/09/20 12:00 11/09/20 17:08 11/09/20 20:21 11/10/20 03:45 Glucose (Fingerstick) 145 mg/dL (70-99) 177 mg/dL (70-99) 147 mg/dL (70-99) Sodium Level 140 mmol/L (136-145) Potassium Level 3.7 mmol/L (3.5-5.1) Chloride Level 106 mmol/L (98-107) Carbon Dioxide Level 21 mmol/L (21-32) Anion Gap 13 (6-14) Blood Urea Nitrogen 86 mg/dL (8-26) Creatinine 3.3 mg/dL (0.7-1.3) Estimated GFR (Cockcroft-Gault) 18.5 Glucose Level 100 mg/dL (70-99) Calcium Level 8.1 mg/dL (8.5-10.1) Test 11/10/20 07:39 Glucose (Fingerstick) 106 mg/dL (70-99) Assessment and Plan Assessmemt and Plan Problems Medical Problems: (1) Anemia Status: Acute (2) GI bleed Status: Acute * x10 reps; rec 3x/day x 10 reps; AP hourly; written issued Other Information * Patient would benefit from continued rehab prior to discharge home. Patient Stated Goal * to go home Rehab Potential to Achieve Goals * Good Learning Preferences * One-on-One Instruction * Demonstration * Discussion Factors Facilitating Goal Achievement * Motivation level * Supportive caregiver * Prior level of function Problem List (body system elements) * Impaired fnctnl mobility * Strength * Obesity * Skin Integrity Other Problems * Clinical Presentation * Evolving Evaluation Complexity Level * Moderate Complexity Pt/caregiver agrees with plan of care/goals * Yes Patient condition at conclusion of therapy * Pt in bed * Bed alarm on * Call light in reach * PtIn no apparent distress Communicated Patient Care With (Name, Title) * TATA Anand; FELIX Fung Goal 1 - Bed Mobility Assistance Required * Independent Goal 1 Assessment * Appropriate - Continue Goal 2 - Transfers Assistance Required * Independent Goal 2 - Transfer Type * Stand-Pivot Goal 2 Assessment * Appropriate - Continue Goal 3 - Ambulation Assistance Required * Stand-by Assistance Goal 3 - Ambulation Distance * 25' Goal 3 - Ambulation Device * Roller Walker Treatment Plan * Therapeutic Exercise * Bed Mobility Training * Transfer training * Gait Training * Body Mechanics Training * Dynamic Balance Training Frequency of Treatment Expected * 7 visits/week Duration of Treatment Expected * 2 weeks Discharge Recommendations * Jail Unit Discharge Recommendation - DME * Rolling Walker needed * in order to complete ADLs * and ambulation safely Comment Review of Relevant I have reviewed the following items mara (where applicable) has been applied. Labs Laboratory Tests Test 11/08/20 11:30 11/08/20 16:28 11/08/20 20:15 11/08/20 20:32 Glucose (Fingerstick) 168 mg/dL (70-99) 205 mg/dL (70-99) 153 mg/dL (70-99) 145 mg/dL (70-99) Test 11/09/20 06:20 11/09/20 07:46 11/09/20 12:00 11/09/20 17:08 White Blood Count 8.7 x10^3/uL (4.0-11.0) Red Blood Count 3.11 x10^6/uL (4.30-5.70) Hemoglobin 9.2 g/dL (13.0-17.5) Hematocrit 28.5 % (39.0-53.0) Mean Corpuscular Volume 92 fL (79-100) Mean Corpuscular Hemoglobin 30 pg (25-35) Mean Corpuscular Hemoglobin Concent 32 g/dL (31-37) Red Cell Distribution Width 16.3 % (11.5-14.5) Platelet Count 200 x10^3/uL (140-400) Neutrophils (%) (Auto) 60 % (31-73) Lymphocytes (%) (Auto) 22 % (24-48) Monocytes (%) (Auto) 10 % (0-9) Eosinophils (%) (Auto) 6 % (0-3) Basophils (%) (Auto) 1 % (0-3) Neutrophils # (Auto) 5.2 x10^3/uL (1.8-7.7) Lymphocytes # (Auto) 2.0 x10^3/uL (1.0-4.8) Monocytes # (Auto) 0.9 x10^3/uL (0.0-1.1) Eosinophils # (Auto) 0.6 x10^3/uL (0.0-0.7) Basophils # (Auto) 0.1 x10^3/uL (0.0-0.2) Sodium Level 135 mmol/L (136-145) Potassium Level 3.9 mmol/L (3.5-5.1) Chloride Level 104 mmol/L (98-107) Carbon Dioxide Level 20 mmol/L (21-32) Anion Gap 11 (6-14) Blood Urea Nitrogen 89 mg/dL (8-26) Creatinine 3.7 mg/dL (0.7-1.3) Estimated GFR (Cockcroft-Gault) 16.2 BUN/Creatinine Ratio 24 (6-20) Glucose Level 122 mg/dL (70-99) Calcium Level 8.4 mg/dL (8.5-10.1) Total Bilirubin 1.1 mg/dL (0.2-1.0) Aspartate Amino Transf (AST/SGOT) 19 U/L (15-37) Alanine Aminotransferase (ALT/SGPT) 16 U/L (16-63) Alkaline Phosphatase 103 U/L (46-116) Total Protein 6.2 g/dL (6.4-8.2) Albumin 2.9 g/dL (3.4-5.0) Albumin/Globulin Ratio 0.9 (1.0-1.7) Glucose (Fingerstick) 118 mg/dL (70-99) 145 mg/dL (70-99) 177 mg/dL (70-99) Test 11/09/20 20:21 11/10/20 03:45 11/10/20 07:39 Glucose (Fingerstick) 147 mg/dL (70-99) 106 mg/dL (70-99) Sodium Level 140 mmol/L (136-145) Potassium Level 3.7 mmol/L (3.5-5.1) Chloride Level 106 mmol/L (98-107) Carbon Dioxide Level 21 mmol/L (21-32) Anion Gap 13 (6-14) Blood Urea Nitrogen 86 mg/dL (8-26) Creatinine 3.3 mg/dL (0.7-1.3) Estimated GFR (Cockcroft-Gault) 18.5 Glucose Level 100 mg/dL (70-99) Calcium Level 8.1 mg/dL (8.5-10.1) Laboratory Tests Test 11/09/20 12:00 11/09/20 17:08 11/09/20 20:21 11/10/20 03:45 Glucose (Fingerstick) 145 mg/dL (70-99) 177 mg/dL (70-99) 147 mg/dL (70-99) Sodium Level 140 mmol/L (136-145) Potassium Level 3.7 mmol/L (3.5-5.1) Chloride Level 106 mmol/L (98-107) Carbon Dioxide Level 21 mmol/L (21-32) Anion Gap 13 (6-14) Blood Urea Nitrogen 86 mg/dL (8-26) Creatinine 3.3 mg/dL (0.7-1.3) Estimated GFR (Cockcroft-Gault) 18.5 Glucose Level 100 mg/dL (70-99) Calcium Level 8.1 mg/dL (8.5-10.1) Test 11/10/20 07:39 Glucose (Fingerstick) 106 mg/dL (70-99) Medications Current Medications Pantoprazole Sodium 80 mg/ Sodium Chloride 100 ml @ 10 mls/hr Q10H IV Last administered on 11/07/20at 17:12; Start 11/04/20 at 15:15; Stop 11/08/20 at 07:19; Status DC Pantoprazole Sodium (PROTONIX VIAL for IV PUSH) 80 mg 1X ONCE IVP Last administered on 11/04/20at 15:23; Start 11/04/20 at 15:15; Stop 11/04/20 at 15:16; Status DC Sodium Chloride 1,000 ml @ 1,000 mls/hr 1X ONCE IV Last administered on 11/04/20at 15:22; Start 11/04/20 at 15:15; Stop 11/04/20 at 16:14; Status DC Metoprolol Succinate (Toprol Xl) 50 mg DAILY PO Last administered on 11/06/20at 09:50; Start 11/05/20 at 09:00; Stop 11/07/20 at 07:51; Status DC Insulin Glargine (Lantus Syringe) 15 unit QHS SQ Last administered on 11/09/20at 20:23; Start 11/04/20 at 21:00 Ondansetron HCl (Zofran) 4 mg PRN Q4HRS PRN IV NAUSEA/VOMITING; Start 11/04/20 at 17:30 Acetaminophen (Tylenol Supp) 650 mg PRN Q4HRS PRN RI TEMP OVER 100.4F OR MILD PAIN; Start 11/04/20 at 17:30 Fentanyl Citrate (Fentanyl 2ml Vial) 25 mcg PRN Q2HR PRN IVP PAIN; Start 11/04/20 at 17:30 Insulin Human Lispro (HumaLOG) 0-9 UNITS Q6HRS SQ Last administered on 11/04/20at 21:29; Start 11/04/20 at 18:00; Stop 11/08/20 at 10:44; Status DC Dextrose (Dextrose 50%-Water Syringe) 12.5 gm PRN Q15MIN PRN IV SEE COMMENTS; Start 11/04/20 at 17:30 Furosemide (Lasix) 40 mg 1X ONCE IVP Last administered on 11/05/20at 11:54; Start 11/05/20 at 07:00; Stop 11/05/20 at 07:01; Status DC Propofol (Diprivan) 200 mg STK-MED ONCE IV ; Start 11/05/20 at 09:27; Stop 11/05/20 at 09:27; Status DC Lidocaine HCl (Lidocaine Pf 2% Vial) 5 ml STK-MED ONCE .ROUTE ; Start 11/05/20 at 09:27; Stop 11/05/20 at 09:27; Status DC Hydralazine HCl (Apresoline) 50 mg TID PO Last administered on 11/08/20at 09:28; Start 11/06/20 at 10:00; Stop 11/08/20 at 14:04; Status DC Metoprolol Succinate (Toprol Xl) 25 mg DAILY PO ; Start 11/07/20 at 09:00; Stop 11/08/20 at 08:50; Status DC Pantoprazole Sodium (PROTONIX VIAL for IV PUSH) 40 mg DAILYAC IVP Last administered on 11/08/20at 07:29; Start 11/08/20 at 07:30; Stop 11/08/20 at 10:47; Status DC Insulin Human Lispro (HumaLOG) 0-9 UNITS TIDBFRMEAL SQ Last administered on 11/09/20at 17:33; Start 11/08/20 at 11:30 Pantoprazole Sodium (Protonix) 40 mg DAILYAC PO Last administered on 11/09/20at 08:41; Start 11/09/20 at 07:30; Stop 11/10/20 at 08:47; Status DC Sodium Chloride 500 ml @ 500 mls/hr 1X ONCE IV Last administered on 11/08/20at 11:30; Start 11/08/20 at 11:15; Stop 11/08/20 at 12:14; Status DC Cetirizine HCl (ZyrTEC) 10 mg DAILY PO Last administered on 11/10/20at 08:44; Start 11/08/20 at 11:30 Cefazolin Sodium/ Dextrose 50 ml @ 100 mls/hr 1X ONCE IV ; Start 11/08/20 at 13:00; Stop 11/08/20 at 13:29; Status Cancel Cefazolin Sodium/ Dextrose 50 ml @ 100 mls/hr 1X ONCE IV Last administered on 11/09/20at 11:06; Start 11/09/20 at 08:00; Stop 11/09/20 at 08:29; Status DC Hydralazine HCl (Apresoline) 25 mg TID PO Last administered on 11/10/20at 08:43; Start 11/08/20 at 21:00 Apixaban (Eliquis) 5 mg BID PO Last administered on 11/10/20at 08:43; Start 11/09/20 at 09:00 Aspirin (Ecotrin) 81 mg DAILY PO Last administered on 11/10/20at 08:44; Start 11/09/20 at 09:00 Atorvastatin Calcium (Lipitor) 40 mg HS PO Last administered on 11/09/20at 20:22; Start 11/09/20 at 21:00 Buspirone HCl (Buspar) 10 mg TID PRN PRN PO ANXIETY / AGITATION Last administered on 11/09/20at 20:21; Start 11/09/20 at 08:15 Bacitracin 54676 unit/Sodium Chloride 250 ml @ 250 mls/hr 1X ONCE IRR Last administered on 11/09/20at 11:06; Start 11/09/20 at 10:00; Stop 11/09/20 at 10:59; Status DC Fentanyl Citrate (Fentanyl 2ml Vial) 100 mcg STK-MED ONCE .ROUTE ; Start 11/09/20 at 10:03; Stop 11/09/20 at 10:04; Status DC Midazolam HCl (Versed) 5 mg STK-MED ONCE .ROUTE ; Start 11/09/20 at 10:03; Stop 11/09/20 at 10:04; Status DC Lidocaine/ Epinephrine (LIDOCAINE 2%-EPI 1:100,000 multi-dose) 20 ml STK-MED ONCE .ROUTE ; Start 11/09/20 at 10:32; Stop 11/09/20 at 10:32; Status DC Iodixanol (Visipaque 320) 100 ml STK-MED ONCE .ROUTE ; Start 11/09/20 at 10:48; Stop 11/09/20 at 10:48; Status DC Midazolam HCl (Versed) 2 mg 1X ONCE IV Last administered on 11/09/20at 11:07; Start 11/09/20 at 11:00; Stop 11/09/20 at 11:01; Status DC Fentanyl Citrate (Fentanyl 2ml Vial) 50 mcg 1X ONCE IV Last administered on 11/09/20at 11:07; Start 11/09/20 at 11:00; Stop 11/09/20 at 11:01; Status DC Iodixanol (Visipaque 320) 20 ml 1X ONCE IV Last administered on 11/09/20at 11:07; Start 11/09/20 at 11:00; Stop 11/09/20 at 11:01; Status DC Lidocaine/ Epinephrine (LIDOCAINE 2%-EPI 1:100,000 multi-dose) 30 ml 1X ONCE IJ Last administered on 11/09/20at 11:08; Start 11/09/20 at 11:00; Stop 11/09/20 at 11:01; Status DC Cefazolin Sodium/ Dextrose 50 ml @ 100 mls/hr 1X ONCE IV Last administered on 11/09/20at 16:52; Start 11/09/20 at 11:45; Stop 11/09/20 at 12:14; Status DC Sodium Chloride 1,000 ml @ 75 mls/hr [id number] IV Last administered on 11/10/20at 01:20; Start 11/09/20 at 12:00 Metoprolol Succinate (Toprol Xl) 50 mg DAILY PO Last administered on 11/10/20at 08:51; Start 11/09/20 at 16:00 Acetaminophen/ Hydrocodone Bitart (Lortab 5/325) 1 tab PRN Q4HRS PRN PO MODERATE PAIN, SEVERE PAIN Last administered on 11/10/20at 08:44; Start 11/09/20 at 19:30 Temazepam (Restoril) 15 mg PRN QHS PRN PO INSOMNIA; Start 11/09/20 at 19:30 Famotidine (Pepcid) 20 mg DAILY PO ; Start 11/10/20 at 09:00 Active Scripts Active Metoprolol Succinate ( Xl ) (Metoprolol Succinate) 25 Mg Tab.er.24h 50 Mg PO DAILY 30 Days Reported Entecavir 0.5 Mg Tablet 0.5 Mg PO DAILY Eliquis (Apixaban) 5 Mg Tablet 5 Mg PO BID Hydralazine Hcl 50 Mg Tablet 1 Tab PO TID Hydrochlorothiazide Tablet (Hydrochlorothiazide) 12.5 Mg Tablet 12.5 Mg PO DAILY Slow Release Iron (Ferrous Sulfate) 160 Mg Tablet.er 160 Mg PO DAILY Losartan Potassium 50 Mg Tablet 50 Mg PO DAILY Aspirin Ec (Aspirin) 81 Mg Tablet.dr 1 Tab PO DAILY Novolin R (Insulin Regular, Human) 100 Unit/1 Ml Vial 10 Unit IJ TIDAC Lantus Solostar (Insulin Glargine,Hum.rec.anlog) 100 Unit/1 Ml Insuln.pen 30 Unit SQ QHS Buspirone Hcl 10 Mg Tablet 1 Tab PO TID PRN PRN Potassium Chloride (Potassium Chloride) 20 Meq Tablet.er 10 Meq PO DAILY Atorvastatin Calcium 40 Mg Tablet 40 Mg PO HS Allopurinol 100 Mg Tablet 100 Mg PO DAILY Furosemide 40 Mg Tablet 40 Mg PO BID 30 Days Vitals/I & O Vital Sign - Last 24 Hours 11/09/20 11/09/20 11/09/20 11/09/20 11:07 11:30 11:46 11:58 Pulse 61 60 60 Resp 26 22 18 B/P (MAP) 176/71 (106) 187/74 (111) Pulse Ox 97 96 96 95 O2 Delivery Nasal Cannula Nasal Cannula Room Air Room Air O2 Flow Rate 2.0 2.0 11/09/20 11/09/20 11/09/20 11/09/20 12:13 12:28 12:43 13:13 Pulse 60 59 60 60 B/P (MAP) 161/69 (99) 153/70 (97) 158/69 (98) 143/63 (89) Pulse Ox 95 94 94 93 O2 Delivery Room Air Room Air Room Air Room Air 11/09/20 11/09/20 11/09/20 11/09/20 13:28 13:43 14:13 14:52 Pulse 60 60 59 60 B/P (MAP) 135/64 (87) 139/60 (86) 122/60 (80) 170/73 (105) Pulse Ox 93 92 90 90 O2 Delivery Room Air Room Air Room Air Room Air 11/09/20 11/09/20 11/09/20 11/09/20 14:56 15:00 16:52 19:00 Temp 97.9 98.1 97.9 98.1 Pulse 60 59 59 59 Resp 16 18 B/P (MAP) 170/73 170/73 (105) 170/73 172/71 (104) Pulse Ox 90 96 O2 Delivery Room Air Room Air 11/09/20 11/09/20 11/09/20 11/09/20 19:32 19:50 20:22 20:32 Pulse 62 Resp 16 16 B/P (MAP) 172/71 Pulse Ox 90 90 O2 Delivery Room Air Room Air Room Air 11/09/20 11/10/20 11/10/20 11/10/20 22:35 02:50 07:00 08:43 Temp 98.0 98.0 98.1 98.0 98.0 98.1 Pulse 59 60 59 60 Resp 19 19 20 B/P (MAP) 170/72 (104) 170/73 (105) 197/64 (108) 170/73 Pulse Ox 97 94 96 O2 Delivery Room Air Room Air Room Air 11/10/20 11/10/20 08:44 08:51 Pulse 60 B/P (MAP) 170/73 O2 Delivery Room Air Intake and Output 11/09/20 11/09/20 11/10/20 15:00 23:00 07:00 Intake Total 180 ml 180 ml 400 ml Output Total 200 ml 150 ml 300 ml Balance -20 ml 30 ml 100 ml Justicifation of Admission Dx: Justifications for Admission: Justification of Admission Dx: Yes SURY PATTERSON MD Nov 10, 2020 08:55
[2020-11-10] MEDS ORDERED: FAMOTIDINE 20 MG TABLET. PO SCH (09:00)
--- NOTE | 2020-11-10 09:33 | RESP ---
DATE OF SERVICE: NOCTURNAL OXIMETRY ATTENDING PHYSICIAN: Chris Persaud MD. The patient's mean oxygen saturation remained around 96% with a lowest of 89%. IMPRESSION: No clinically significant nocturnal hypoxia. RECOMMENDATION: If clinical suspicion for sleep disordered breathing is high, then consider doing full polysomnogram. IDALIA GORE MD DR: JAYESH/nts JOB#: [id number] / [id number]
--- NOTE | 2020-11-10 09:57 | PDOC ---
Date of Service: DATE: 11/10/20 TIME: 09:53 Subjective: Subjective: Doing okay, no GI complaints. Objective: Objective: D/w nurse and Dr. Humphreys - changed to H2 severiano w/ REBECCA. Vital Signs: Vital Signs Date Time Temp Pulse Resp B/P (MAP) Pulse Ox O2 Delivery O2 Flow Rate FiO2 11/10/20 08:51 60 170/73 11/10/20 08:44 Room Air 11/10/20 07:00 98.1 20 96 98.1 11/09/20 11:30 2.0 Labs: Laboratory Tests Test 11/09/20 12:00 11/09/20 17:08 11/09/20 20:21 11/10/20 03:45 Glucose (Fingerstick) 145 mg/dL 177 mg/dL 147 mg/dL Sodium Level 140 mmol/L Potassium Level 3.7 mmol/L Chloride Level 106 mmol/L Carbon Dioxide Level 21 mmol/L Anion Gap 13 Blood Urea Nitrogen 86 mg/dL Creatinine 3.3 mg/dL Estimated GFR (Cockcroft-Gault) 18.5 Glucose Level 100 mg/dL Calcium Level 8.1 mg/dL Test 11/10/20 07:39 Glucose (Fingerstick) 106 mg/dL Diagnosis: Gastric biopsies, antrum: - Chronic gastritis, mild. (MICHAEL:ernie; 11/08/2020) MBR 11/08/2020 1635 Local . 02 Comment: Sections of the gastric antral biopsy show congestion and mild chronic inflammation. A properly controlled immunoperoxidase stain for Helicobacter is negative for Helicobacter organisms. Imaging: CXR 11/10 pending PE: GEN: NAD LUNGS: CTAB HEART: RRR ABD: NABS, S/ND/NT NEURO/PSYCH: A & O 3 A/P: s/p APC / SSS s/p pacemaker placemaker 11/09 Chronic anemia - stable REBECCA/CKD, CAD, PVD, A Fib - back on ASA and Eliquis -- Dc per primary. Continue H2 severiano. We will contact to schedule outpt colonoscopy. Justicifation of Admission Dx: Justifications for Admission: Justification of Admission Dx: Yes FABBY ROBERTSON Nov 10, 2020 09:57
--- NOTE | 2020-11-10 10:08 | PDOC3 ---
Discharge Summary Date of Admission: Nov 04, 2020 Date of Discharge: Nov 10, 2020 Follow-Up: 1-2 days Admitting Diagnosis comment: hospital course Mr Nunn is a 75yo [employer] w/ PMHx CAD s/p LAD stenting 2018, Afib, diastolic CHF, Diabetes-Type II, High Cholesterol, Hypertension, chronic bilateral foot wounds, h/o agent orange exposure who presents to ED with significant other c/o weakness and an outpatient Hb of 6.8. He has been feeling lightheaded and more short of breath lately but does not note any weight gain, orthopnea. He does have SIMPSON He was referred for colonoscopy in 2019 but due to COVID-19 it was deferred. On Eliquis for afib. Has been off brillinta after last year, does still take aspirin. He has not noted any blood in his stools, but they have been darker lately on deeper questioning. CKD stage 3B - Follows with Dr. Roca, baseline Cr per [facility] records appears to be 1.8-2.0 d/c condition good procedures // pacemaker placement cvc monitoring, EGD COMPLICATIONS NONE CONSULTS CARDIOLOGY, GI, PULMONARY , NEPHROLOGY FOLLOW UP NEPHROLOGY 1 WEEK, CARDIOLOGY 2 WEEKS DISCHARGE DX Chief Complaint IMPRESSION Acute blood loss anemia - symptomatic. transfused . Goal Hb > 8 give his CAD history. will consult GI for concern for UGIB given his uremia and consult cardi ology for recs on eliquis longer term. IV protonix and blood transfusion ordered. antral gastric ulcer s/p APC treatment REBECCA - vasomotor nephropathy likely related to above, will not overhydrate given his CHF history, NEPHROLOGY CONSULTED Acute hypoxic respiratory failure CAD s/p LAD stent 04/08/2019 - Hold ASA for acute bleed. 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 Peripheral vascular disease - stable Morbid obesity - counseled on weight loss Hypertension. LABILE Afib - rate controlled. Will hold eliquis Diastolic CHF - chronic, stable currently Moderate tricuspid regurgitation with PAP of 68 mmHg. 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 Tinnitus - stable Uremia - will monitor, thought it was GI bleed, but now be etiology of bradycardia Bradycardia - EKG. Cardiology following. Hold BB, BRADYCARDIA PERSISTS , PACEMAKER INDICATED antral gastric ulcer s/p APC treatment Severe pulmonary hypertension MORBID OBESITY, High risk of obesity, hypoventilation syndrome night-time mean oxygen saturation remained around 96% with a lowest of 89%. plan ADMIT FEN - Cardiac diet PPX - SCDs, protonix IV FULL CODE Dispo - inpatient nephrology consult ABDOMINAL SONO Cardiology consult pulm consult night-time oximetry desat study to exclude ROBB May resume anticoagulation at this time with stable Hg. consider full sleep study as outpt o2 support SEE NEPHROLOGY ONE WEEK 4-05 d/w RN eliquis stopped due to GI BLEEDING REPEAT EKG Moderate tricuspid regurgitation with PAP of 68 mmHg. unaware if he snores, lives alone , has trouble sleeping supine, will check hs oximetry study Discharge Recommendations * [facility] Discharge Recommendation - DME * Rolling Walker needed * in order to complete ADLs History of Present Illness History of Present Illness Mr Nunn is a 75yo [employer] [place] w/ PMHx CAD s/p LAD stenting 2018, Afib, diastolic CHF, Diabetes-Type II, High Cholesterol, Hypertension, chronic bilateral foot wounds, h/o agent orange exposure who presents to ED with significant other c/o weakness and an outpatient Hb of 6.8. He has been feeling lightheaded and more short of breath lately but does not note any weight gain, orthopnea. He does have SIMPSON He was referred for colonoscopy in 2019 but due to COVID-19 it was deferred. On Eliquis for afib. Has been off brillinta after last year, does still take aspirin. He has not noted any blood in his stools, but they have been darker lately on deeper questioning. Review of systems negative for chest pain shortness of breath abdominal pain vomiting diaphoresis fevers or chills. All other review of systems negative. EKG appears to have left bundle branch block pattern. Irregularly irregular rhythm. ST segments show repolarization. Not suggestive of acute ischemia. Labs with WBC 9.9, Hb 6.7, platelets 236, INR 1.8, NA 139, K4.2, BUN 97, CR 2.5, glucose 193, albumin 3, troponin 0 Temperature within normal limits. Blood pressure 120/50. Patient is on metoprolol. Here his fecal occult blood test is positive. Started on Protonix bolus and IV and admitted for further care. 11/05: Hb 6.8 despite transfusion ordered 2 additional units of packed red blood cells. To EGD this morning with large antral ulcer that was treated. Still fe eling lightheaded and dizzy. 11/06: BUN 90, Cr 2.4. Hb up to 9.3. He is a bit anxious to go home. Did not get full therapy evaluation due to blood transfusion. I have let him know I am concerned about going home given his symptoms 11-08 d/w RN eliquis stopped due to GI BLEEDING REPEAT EKG TODAY 11-09 d/w RN eliquis stopped due to GI BLEEDING RESTART ELIQUIS AND ASA Bradycardic PACEMAKER TODAY short of breath and not able to work with therapy.JAY 11-10 d/w RN eliquis stopped due to GI BLEEDING RESTART ELIQUIS AND ASA 11-09 Bradycardic PACEMAKER - short of breath and not able to work with therapy.JAY d/w rn, cxr today CR 3.3 D/C ON HOLD PENDING NEPHROLOGY OK D/C PLANNING 34 MIN Vitals Vitals Vital Signs Date Time Temp Pulse Resp B/P (MAP) Pulse Ox O2 Delivery O2 Flow Rate FiO2 11/10/20 08:51 60 170/73 11/10/20 08:44 Room Air 11/10/20 07:00 98.1 20 96 98.1 11/09/20 11:30 2.0 Physical Exam Physical Exam Physical Exam General: Alert, Oriented X3, Cooperative, NO distress HEENT: Atraumatic, PERRLA, EOMI, Mucous membr. moist/pink Lungs: Clear to auscultation, Normal air movement Heart: irregularly irregular Abdomen: Normal bowel sounds, Soft, No tenderness, No hepatosplenomegaly, No masses Male Genitals Exam: normal genitalia, normal prostate Rectal Exam: other (hemoccult postive) Extremities: No clubbing, No cyanosis, No edema, Normal pulses, No tenderness/swelling Skin: No rashes, No significant lesion, Other (Bilateral healing foot ulcers) Neuro: Normal gait, Normal speech, Strength at 5/5 X4 ext, Normal tone, Sensation intact, Cranial nerves 3-12 NL, Reflexes 2+ Psych/Mental Status: Mental status NL, Mood NL General: Alert, Oriented X3, Cooperative, No acute distress Heart: Regular rate, Other (Heart rate irregular, ESM aorticBRADY ) Lungs: Clear, Other Abdomen: Normal bowel sounds, Soft, No tenderness, No hepatosplenomegaly Extremities: No clubbing, No cyanosis, No edema Skin: No rashes, No significant lesion, Other (Bilateral healing foot ulcers) Labs LABS SEX: M STATUS: ADM IN LOCATION: [address] [place] [address] DATE OF SERVICE: NOCTURNAL OXIMETRY ATTENDING PHYSICIAN: Chris Persaud MD. The patient's mean oxygen saturation remained around 96% with a lowest of 89%. IMPRESSION: No clinically significant nocturnal hypoxia. RECOMMENDATION: If clinical suspicion for sleep disordered breathing is high, then consider doing full polysomnogram. IDALIA GORE MD DR: JAYESH/nts JOB#: [id number] / [id number] DICTATED BY: IDALIA GORE MD 11/10/20 0850 SIGNED BY: STATUS: ADM IN ORD. PHYSICIAN: BEATRIZ IBARRA MD REASON: REBECCA on CKD, r/o MARINO PROCEDURE: RENAL COMPLETE BILATERAL STUDY: Complete renal sonogram INDICATION: Acute on chronic kidney disease. COMPARISON: None. TECHNIQUE: Real-time grayscale and color Doppler sonographic evaluation of both kidneys. The bladder was also evaluated. FINDINGS: The study was made difficult by patient body habitus and bowel gas. Right kidney: Measures 12.6 cm in length. No complex cyst or mass. No hydronephrosis. Possible intrarenal stones. Left kidney: Measures 10.7 cm in length. No complex cyst or mass. No hydrone phrosis. Possible intrarenal stones to include a 13 mm focus of increased echogenicity at the upper pole. Bladder: No localized wall thickening is apparent. Miscellaneous: Incompletely characterized abdominal aorta and IVC. IMPRESSION: No sonographic abnormality of either kidney to explain the patient's acute on chronic kidney disease. No definitive manifestations of bladder outlet obstruction, as queried. Electronically signed by: HAM MELENDEZ MD (11/08/2020 4:38 PM) [facility] DICTATED and SIGNED BY: HAM MELENDEZ MD DATE: 11/08/20 [id number] FINAL DIAGNOSIS Problems Medical Problems: (1) Anemia Status: Acute (2) GI bleed Status: Acute Brief Hospital Course Mr. Nunn is a 75 old [sex] who presented with [ severe bradycardia, chf acute ] CONDITION AT DISCHARGE: Improved Discharge Medications Current Medications Pantoprazole Sodium 80 mg/ Sodium Chloride 100 ml @ 10 mls/hr Q10H IV Last administered on 11/07/20at 17:12; Start 11/04/20 at 15:15; Stop 11/08/20 at 07:19; Status DC Pantoprazole Sodium (PROTONIX VIAL for IV PUSH) 80 mg 1X ONCE IVP Last administered on 11/04/20at 15:23; Start 11/04/20 at 15:15; Stop 11/04/20 at 15:16; Status DC Sodium Chloride 1,000 ml @ 1,000 mls/hr 1X ONCE IV Last administered on 11/04/20at 15:22; Start 11/04/20 at 15:15; Stop 11/04/20 at 16:14; Status DC Metoprolol Succinate (Toprol Xl) 50 mg DAILY PO Last administered on 11/06/20at 09:50; Start 11/05/20 at 09:00; Stop 11/07/20 at 07:51; Status DC Insulin Glargine (Lantus Syringe) 15 unit QHS SQ Last administered on 11/09/20at 20:23; Start 11/04/20 at 21:00 Ondansetron HCl (Zofran) 4 mg PRN Q4HRS PRN IV NAUSEA/VOMITING; Start 11/04/20 at 17:30 Acetaminophen (Tylenol Supp) 650 mg PRN Q4HRS PRN [place] TEMP OVER 100.4F OR MILD PAIN; Start 11/04/20 at 17:30 Fentanyl Citrate (Fentanyl 2ml Vial) 25 mcg PRN Q2HR PRN IVP PAIN; Start 11/04/20 at 17:30 Insulin Human Lispro (HumaLOG) 0-9 UNITS Q6HRS SQ Last administered on 11/04/20at 21:29; Start 11/04/20 at 18:00; Stop 11/08/20 at 10:44; Status DC Dextrose (Dextrose 50%-Water Syringe) 12.5 gm PRN Q15MIN PRN IV SEE COMMENTS; Start 11/04/20 at 17:30 Furosemide (Lasix) 40 mg 1X ONCE IVP Last administered on 11/05/20at 11:54; Start 11/05/20 at 07:00; Stop 11/05/20 at 07:01; Status DC Propofol (Diprivan) 200 mg STK-MED ONCE IV ; Start 11/05/20 at 09:27; Stop 11/05/20 at 09:27; Status DC Lidocaine HCl (Lidocaine Pf 2% Vial) 5 ml STK-MED ONCE .ROUTE ; Start 11/05/20 at 09:27; Stop 11/05/20 at 09:27; Status DC Hydralazine HCl (Apresoline) 50 mg TID PO Last administered on 11/08/20at 09:28; Start 11/06/20 at 10:00; Stop 11/08/20 at 14:04; Status DC Metoprolol Succinate (Toprol Xl) 25 mg DAILY PO ; Start 11/07/20 at 09:00; Stop 11/08/20 at 08:50; Status DC Pantoprazole Sodium (PROTONIX VIAL for IV PUSH) 40 mg DAILYAC IVP Last administered on 11/08/20at 07:29; Start 11/08/20 at 07:30; Stop 11/08/20 at 10:47; Status DC Insulin Human Lispro (HumaLOG) 0-9 UNITS TIDBFRMEAL SQ Last administered on 11/09/20at 17:33; Start 11/08/20 at 11:30 Pantoprazole Sodium (Protonix) 40 mg DAILYAC PO Last administered on 11/09/20at 08:41; Start 11/09/20 at 07:30; Stop 11/10/20 at 08:47; Status DC Sodium Chloride 500 ml @ 500 mls/hr 1X ONCE IV Last administered on 11/08/20at 11:30; Start 11/08/20 at 11:15; Stop 11/08/20 at 12:14; Status DC Cetirizine HCl (ZyrTEC) 10 mg DAILY PO Last administered on 11/10/20at 08:44; Start 11/08/20 at 11:30 Cefazolin Sodium/ Dextrose 50 ml @ 100 mls/hr 1X ONCE IV ; Start 11/08/20 at 13:00; Stop 11/08/20 at 13:29; Status Cancel Cefazolin Sodium/ Dextrose 50 ml @ 100 mls/hr 1X ONCE IV Last administered on 11/09/20at 11:06; Start 11/09/20 at 08:00; Stop 11/09/20 at 08:29; Status DC Hydralazine HCl (Apresoline) 25 mg TID PO Last administered on 11/10/20at 08:43; Start 11/08/20 at 21:00 Apixaban (Eliquis) 5 mg BID PO Last administered on 11/10/20at 08:43; Start 11/09/20 at 09:00 Aspirin (Ecotrin) 81 mg DAILY PO Last administered on 11/10/20at 08:44; Start 11/09/20 at 09:00 Atorvastatin Calcium (Lipitor) 40 mg HS PO Last administered on 11/09/20at 20:22; Start 11/09/20 at 21:00 Buspirone HCl (Buspar) 10 mg TID PRN PRN PO ANXIETY / AGITATION Last administered on 11/09/20at 20:21; Start 11/09/20 at 08:15 Bacitracin 28665 unit/Sodium Chloride 250 ml @ 250 mls/hr 1X ONCE IRR Last administered on 11/09/20at 11:06; Start 11/09/20 at 10:00; Stop 11/09/20 at 10:59; Status DC Fentanyl Citrate (Fentanyl 2ml Vial) 100 mcg STK-MED ONCE .ROUTE ; Start 11/09/20 at 10:03; Stop 11/09/20 at 10:04; Status DC Midazolam HCl (Versed) 5 mg STK-MED ONCE .ROUTE ; Start 11/09/20 at 10:03; Stop 11/09/20 at 10:04; Status DC Lidocaine/ Epinephrine (LIDOCAINE 2%-EPI 1:100,000 multi-dose) 20 ml STK-MED ONCE .ROUTE ; Start 11/09/20 at 10:32; Stop 11/09/20 at 10:32; Status DC Iodixanol (Visipaque 320) 100 ml STK-MED ONCE .ROUTE ; Start 11/09/20 at 10:48; Stop 11/09/20 at 10:48; Status DC Midazolam HCl (Versed) 2 mg 1X ONCE IV Last administered on 11/09/20at 11:07; Start 11/09/20 at 11:00; Stop 11/09/20 at 11:01; Status DC Fentanyl Citrate (Fentanyl 2ml Vial) 50 mcg 1X ONCE IV Last administered on 11/09/20at 11:07; Start 11/09/20 at 11:00; Stop 11/09/20 at 11:01; Status DC Iodixanol (Visipaque 320) 20 ml 1X ONCE IV Last administered on 11/09/20at 11:07; Start 11/09/20 at 11:00; Stop 11/09/20 at 11:01; Status DC Lidocaine/ Epinephrine (LIDOCAINE 2%-EPI 1:100,000 multi-dose) 30 ml 1X ONCE IJ Last administered on 11/09/20at 11:08; Start 11/09/20 at 11:00; Stop 11/09/20 at 11:01; Status DC Cefazolin Sodium/ Dextrose 50 ml @ 100 mls/hr 1X ONCE IV Last administered on 11/09/20at 16:52; Start 11/09/20 at 11:45; Stop 11/09/20 at 12:14; Status DC Sodium Chloride 1,000 ml @ 75 mls/hr [id number] IV Last administered on 11/10/20at 01:20; Start 11/09/20 at 12:00 Metoprolol Succinate (Toprol Xl) 50 mg DAILY PO Last administered on 11/10/20at 08:51; Start 11/09/20 at 16:00 Acetaminophen/ Hydrocodone Bitart (Lortab 5/325) 1 tab PRN Q4HRS PRN PO MO DERATE PAIN, SEVERE PAIN Last administered on 11/10/20at 08:44; Start 11/09/20 at 19:30 Temazepam (Restoril) 15 mg PRN QHS PRN PO INSOMNIA; Start 11/09/20 at 19:30 Famotidine (Pepcid) 20 mg DAILY PO Last administered on 11/10/20at 08:55; Start 11/10/20 at 09:00 Active Scripts Active Metoprolol Succinate ( Xl ) (Metoprolol Succinate) 25 Mg Tab.er.24h 50 Mg PO DAILY 30 Days Reported Entecavir 0.5 Mg Tablet 0.5 Mg PO DAILY Eliquis (Apixaban) 5 Mg Tablet 5 Mg PO BID Hydralazine Hcl 50 Mg Tablet 1 Tab PO TID Hydrochlorothiazide Tablet (Hydrochlorothiazide) 12.5 Mg Tablet 12.5 Mg PO DAILY Slow Release Iron (Ferrous Sulfate) 160 Mg Tablet.er 160 Mg PO DAILY Losartan Potassium 50 Mg Tablet 50 Mg PO DAILY Aspirin Ec (Aspirin) 81 Mg Tablet.dr 1 Tab PO DAILY Novolin R (Insulin Regular, Human) 100 Unit/1 Ml Vial 10 Unit IJ TIDAC Lantus Solostar (Insulin Glargine,Hum.rec.anlog) 100 Unit/1 Ml Insuln.pen 30 Unit SQ QHS Buspirone Hcl 10 Mg Tablet 1 Tab PO TID PRN PRN Potassium Chloride (Potassium Chloride) 20 Meq Tablet.er 10 Meq PO DAILY Atorvastatin Calcium 40 Mg Tablet 40 Mg PO HS Allopurinol 100 Mg Tablet 100 Mg PO DAILY Furosemide 40 Mg Tablet 40 Mg PO BID 30 Days Vital Signs Vital Signs Date Time Temp Pulse Resp B/P (MAP) Pulse Ox O2 Delivery O2 Flow Rate FiO2 11/10/20 08:51 60 170/73 11/10/20 08:44 Room Air 11/10/20 07:00 98.1 20 96 98.1 11/09/20 11:30 2.0 Labs Laboratory Tests Test 11/08/20 11:30 11/08/20 16:28 11/08/20 20:15 11/08/20 20:32 Glucose (Fingerstick) 168 mg/dL (70-99) 205 mg/dL (70-99) 153 mg/dL (70-99) 145 mg/dL (70-99) Test 11/09/20 06:20 11/09/20 07:46 11/09/20 12:00 11/09/20 17:08 White Blood Count 8.7 x10^3/uL (4.0-11.0) Red Blood Count 3.11 x10^6/uL (4.30-5.70) Hemoglobin 9.2 g/dL (13.0-17.5) Hematocrit 28.5 % (39.0-53.0) Mean Corpuscular Volume 92 fL (79-100) Mean Corpuscular Hemoglobin 30 pg (25-35) Mean Corpuscular Hemoglobin Concent 32 g/dL (31-37) Red Cell Distribution Width 16.3 % (11.5-14.5) Platelet Count 200 x10^3/uL (140-400) Neutrophils (%) (Auto) 60 % (31-73) Lymphocytes (%) (Auto) 22 % (24-48) Monocytes (%) (Auto) 10 % (0-9) Eosinophils (%) (Auto) 6 % (0-3) Basophils (%) (Auto) 1 % (0-3) Neutrophils # (Auto) 5.2 x10^3/uL (1.8-7.7) Lymphocytes # (Auto) 2.0 x10^3/uL (1.0-4.8) Monocytes # (Auto) 0.9 x10^3/uL (0.0-1.1) Eosinophils # (Auto) 0.6 x10^3/uL (0.0-0.7) Basophils # (Auto) 0.1 x10^3/uL (0.0-0.2) Sodium Level 135 mmol/L (136-145) Potassium Level 3.9 mmol/L (3.5-5.1) Chloride Level 104 mmol/L (98-107) Carbon Dioxide Level 20 mmol/L (21-32) Anion Gap 11 (6-14) Blood Urea Nitrogen 89 mg/dL (8-26) Creatinine 3.7 mg/dL (0.7-1.3) Estimated GFR (Cockcroft-Gault) 16.2 BUN/Creatinine Ratio 24 (6-20) Glucose Level 122 mg/dL (70-99) Calcium Level 8.4 mg/dL (8.5-10.1) Total Bilirubin 1.1 mg/dL (0.2-1.0) Aspartate Amino Transf (AST/SGOT) 19 U/L (15-37) Alanine Aminotransferase (ALT/SGPT) 16 U/L (16-63) Alkaline Phosphatase 103 U/L (46-116) Total Protein 6.2 g/dL (6.4-8.2) Albumin 2.9 g/dL (3.4-5.0) Albumin/Globulin Ratio 0.9 (1.0-1.7) Glucose (Fingerstick) 118 mg/dL (70-99) 145 mg/dL (70-99) 177 mg/dL (70-99) Test 11/09/20 20:21 11/10/20 03:45 11/10/20 07:39 Glucose (Fingerstick) 147 mg/dL (70-99) 106 mg/dL (70-99) Sodium Level 140 mmol/L (136-145) Potassium Level 3.7 mmol/L (3.5-5.1) Chloride Level 106 mmol/L (98-107) Carbon Dioxide Level 21 mmol/L (21-32) Anion Gap 13 (6-14) Blood Urea Nitrogen 86 mg/dL (8-26) Creatinine 3.3 mg/dL (0.7-1.3) Estimated GFR (Cockcroft-Gault) 18.5 Glucose Level 100 mg/dL (70-99) Calcium Level 8.1 mg/dL (8.5-10.1) Laboratory Tests Test 11/09/20 12:00 11/09/20 17:08 11/09/20 20:21 11/10/20 03:45 Glucose (Fingerstick) 145 mg/dL (70-99) 177 mg/dL (70-99) 147 mg/dL (70-99) Sodium Level 140 mmol/L (136-145) Potassium Level 3.7 mmol/L (3.5-5.1) Chloride Level 106 mmol/L (98-107) Carbon Dioxide Level 21 mmol/L (21-32) Anion Gap 13 (6-14) Blood Urea Nitrogen 86 mg/dL (8-26) Creatinine 3.3 mg/dL (0.7-1.3) Estimated GFR (Cockcroft-Gault) 18.5 Glucose Level 100 mg/dL (70-99) Calcium Level 8.1 mg/dL (8.5-10.1) Test 11/10/20 07:39 Glucose (Fingerstick) 106 mg/dL (70-99) Allergies Allergies Coded Allergies Type Severity Reaction Last Updated Verified I S O L A T I O N *CONTACT* Allergy Unknown UNK 11/05/20 Yes No Known Medication Allergies Allergy Unknown UNK 11/05/20 Yes Disposition/Orders: Other (D/C TO SNF ) Justicifation of Admission Dx: Justifications for Admission: Justification of Admission Dx: Yes SURY PATTERSON MD Nov 10, 2020 10:08
--- NOTE | 2020-11-10 10:26 | PDOC ---
DATE OF SERVICE DATE: 11/10/20 TIME: 10:24 SUBJECTIVE ROS s/p pacemaker on 11/09. states feeling better. Denies dizziness , No SOB . Anticipating dc to PP today OBJECTIVE Vital Signs Vital Signs Date Time Temp Pulse Resp B/P (MAP) Pulse Ox O2 Delivery O2 Flow Rate FiO2 11/10/20 08:51 60 170/73 11/10/20 08:44 Room Air 11/10/20 07:00 98.1 20 96 98.1 11/09/20 11:30 2.0 I & 0 Intake and Output 11/10/20 07:00 Intake Total 760 ml Output Total 650 ml Balance 110 ml Intake Oral 760 ml Output Urine Total 650 ml PHYSICAL EXAM Physical Exam General: NAD HEENT: Atraumatic, OM moist Neck supple Lungs: Clear to auscultation Heart: Bradycardic, ESM aortic) Abdomen: Soft, NT Extremities: No edema Neuro: grossly normal Psych/Mental Status: Mood NL No lowery, No cva or SP tenderness Skin No rash DIAGNOSIS/ASSESSMENT Assessment & Plan REBECCA- etiology - Cardiorenal/ATN , Bradycardic , GI blood loss. Renal US no hydronephrosis e/o MARINO Improving renal function (not back to baseline yet) with IVF, pacemaker . Supportive care,dc IVF, maintain po hydration, avoid nephrotoxins, Follow up with service operator post dc . Diuretics per cardiology- titrate dose based on wt, edema, BP an symptoms CKD stage 3B - Follows with Dr. Roca, baseline Cr per [facility] records appears to be 1.8-2.0 Renal calculus - RK- Possible intrarenal stones. LK Possible intrarenal stones to include a 13 mm focus of increased echogenicity at the upper pole.No e/o obstruction reported . Pt denies any past history Acute blood loss anemia secondary to GIB. s/p cauterization of bleeding antral ulcer by GI team. s/p transfusion. Hgb at 8.5. currently on proton pump inhibitors. Permanent AFIB; with present slow ventricular response. Metoprolol held (last d ose 4/3 am), s/p pacemaker on 11/09 due to SSS, symptomatic bradycardia CAD; s/p PCI/RHEA to LAD PAD s/p past orbital atherectomy/TERRAZZO HELPER to right posterior tibial artery. Hypertension; BP mildly below his baseline . IVF small bolus Diabetes, II; as per IM DC per Cardiology/primary COMMENT/RELEVANT DATA Meds Current Medications Medications (Trade) Dose Ordered Sig/Redd Start Time Stop Time Status Last Admin Dose Admin Acetaminophen (Tylenol Supp) 650 mg PRN Q4HRS PRN 11/04/20 17:30 Acetaminophen/ Hydrocodone Bitart (Lortab 5/325) 1 tab PRN Q4HRS PRN 11/09/20 19:30 11/10/20 08:44 1 TAB Apixaban (Eliquis) 5 mg BID 11/09/20 09:00 11/10/20 08:43 5 MG Aspirin (Ecotrin) 81 mg DAILY 11/09/20 09:00 11/10/20 08:44 81 MG Atorvastatin Calcium (Lipitor) 40 mg HS 11/09/20 21:00 11/09/20 20:22 40 MG Bacitracin 33635 unit/Sodium Chloride 250 ml @ 250 mls/hr 1X ONCE 11/09/20 10:00 11/09/20 10:59 DC 11/09/20 11:06 250 MLS/HR Buspirone HCl (Buspar) 10 mg TID PRN PRN 11/09/20 08:15 11/09/20 20:21 10 MG Cefazolin Sodium/ Dextrose 50 ml @ 100 mls/hr 1X ONCE 11/09/20 11:45 11/09/20 12:14 DC 11/09/20 16:52 100 MLS/HR Cetirizine HCl (ZyrTEC) 10 mg DAILY 11/08/20 11:30 11/10/20 08:44 10 MG Dextrose (Dextrose 50%-Water Syringe) 12.5 gm PRN Q15MIN PRN 11/04/20 17:30 Famotidine (Pepcid) 20 mg DAILY 11/10/20 09:00 11/10/20 08:55 20 MG Fentanyl Citrate (Fentanyl 2ml Vial) 50 mcg 1X ONCE 11/09/20 11:00 11/09/20 11:01 DC 11/09/20 11:07 50 MCG Furosemide (Lasix) 40 mg 1X ONCE 11/05/20 07:00 11/05/20 07:01 DC 11/05/20 11:54 40 MG Hydralazine HCl (Apresoline) 25 mg TID 11/08/20 21:00 11/10/20 08:43 25 MG Insulin Glargine (Lantus Syringe) 15 unit QHS 11/04/20 21:00 11/09/20 20:23 15 UNIT Insulin Human Lispro (HumaLOG) 0-9 UNITS TIDBFRMEAL 11/08/20 11:30 11/09/20 17:33 4 UNITS Iodixanol (Visipaque 320) 20 ml 1X ONCE 11/09/20 11:00 11/09/20 11:01 DC 11/09/20 11:07 20 ML Lidocaine HCl (Lidocaine Pf 2% Vial) 5 ml STK-MED ONCE 11/05/20 09:27 11/05/20 09:27 DC Lidocaine/ Epinephrine (LIDOCAINE 2%-EPI 1:100,000 multi-dose) 30 ml 1X ONCE 11/09/20 11:00 11/09/20 11:01 DC 11/09/20 11:08 30 ML Metoprolol Succinate (Toprol Xl) 50 mg DAILY 11/09/20 16:00 11/10/20 08:51 50 MG Midazolam HCl (Versed) 2 mg 1X ONCE 11/09/20 11:00 11/09/20 11:01 DC 11/09/20 11:07 2 MG Ondansetron HCl (Zofran) 4 mg PRN Q4HRS PRN 11/04/20 17:30 Pantoprazole Sodium (PROTONIX VIAL for IV PUSH) 40 mg DAILYAC 11/08/20 07:30 11/08/20 10:47 DC 11/08/20 07:29 40 MG Pantoprazole Sodium (Protonix) 40 mg DAILYAC 11/09/20 07:30 11/10/20 08:47 DC 11/09/20 08:41 40 MG Pantoprazole Sodium 80 mg/ Sodium Chloride 100 ml @ 10 mls/hr Q10H 11/04/20 15:15 11/08/20 07:19 DC 11/07/20 17:12 10 MLS/HR Propofol (Diprivan) 200 mg STK-MED ONCE 11/05/20 09:27 11/05/20 09:27 DC Sodium Chloride 1,000 ml @ 75 mls/hr [id number] 11/09/20 12:00 11/10/20 01:20 75 MLS/HR Temazepam (Restoril) 15 mg PRN QHS PRN 11/09/20 19:30 Lab Laboratory Tests Test 11/09/20 12:00 11/09/20 17:08 11/09/20 20:21 11/10/20 03:45 Glucose (Fingerstick) 145 mg/dL (70-99) 177 mg/dL (70-99) 147 mg/dL (70-99) Sodium Level 140 mmol/L (136-145) Potassium Level 3.7 mmol/L (3.5-5.1) Chloride Level 106 mmol/L (98-107) Carbon Dioxide Level 21 mmol/L (21-32) Anion Gap 13 (6-14) Blood Urea Nitrogen 86 mg/dL (8-26) Creatinine 3.3 mg/dL (0.7-1.3) Estimated GFR (Cockcroft-Gault) 18.5 Glucose Level 100 mg/dL (70-99) Calcium Level 8.1 mg/dL (8.5-10.1) Test 11/10/20 07:39 Glucose (Fingerstick) 106 mg/dL (70-99) Results All relevant outside records, renal labs, imaging studies, telemetry/EKG's were reviewed. Justicifation of Admission Dx: Justifications for Admission: Justification of Admission Dx: Yes BEATRIZ IBARRA MD Nov 10, 2020 10:26
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
[2020-11-10 11:00] VITALS: BP 167/70
[2020-11-10] MEDS ORDERED: ACET650S11 PR (13:05)
[2020-11-10] MEDS ORDERED: HYDR-2868 PO (13:05)
[2020-11-10] MEDS ORDERED: FAMO20TA5 PO (13:05)
[2020-11-10] MEDS ORDERED: INSU100V8 SQ (13:05)
[2020-11-10] MEDS ORDERED: INSU100V35 SQ (13:05)
--- NOTE | 2020-11-10 13:07 | SNU/HH DC ---
DISCHARGE ORDERS DISCHARGE INFORMATION: FINAL DIAGNOSIS Problems Medical Problems: (1) Anemia Status: Acute (2) GI bleed Status: Acute CONDITION ON DISCHARGE: Stable CODE STATUS: Code Status: Full MCFP: SNF STAY <30 DAYS: Yes HOSPICE: HOSPICE: No HOSPICE EVAL & TREAT: No LTAC: ADMIT TO LTAC: No POST DISCHARGE ORDERS: ACTIVITY ORDERS: Activity as tolerated WEIGHT BEARING STATUS: As tolerated DIET AFTER DISCHARGE: ADA CHECKS AFTER DISCHARGE: CHECKS AFTER DISCHARGE: Check blood press - daily FOLLOW-UP: PHYSICIAN FOLLOW-UP: PCP AT [facility] TODAY ADDITIONAL FOLLOW-UP: NEPHROLOGY 1 WEEK, CARDIOLOGY 3 WEEKS LAB ORDERS FOR FOLLOW-UP: RENAL PANEL IN 3 DAYS TREATMENT/EQUIPMENT ORDERS: ADAPTIVE EQUIPMENT NEEDED: Front wheeled walker RESPIRATORY EQUIPMENT NEEDED: Oxygen Physical Therapy For: Evalulation/Treatment Occupational Therapy For: Evaluation/Treatment Speech Language Pathology For: Evaluation/Treatment DISCHARGE MEDICATIONS: Home Meds Active Scripts Insulin Lispro (Admelog) 100 Unit/1 Ml Vial, 0 UNITS SQ TIDBFRMEAL for DIABETES for 30 Days, #2 EACH Prov:SURY PATTERSON MD 11/10/20 Insulin Glargine,Hum.rec.anlog (LANTUS) 100 Unit/1 Ml Vial, 15 UNIT SQ QHS for DIABETES for 30 Days, #2 EACH Prov:SURY PATTERSON MD 11/10/20 Famotidine (FAMOTIDINE) 20 Mg Tablet, 20 MG PO DAILY for GERD for 30 Days, #30 TAB Prov:SURY PATTERSON MD 11/10/20 Acetaminophen (ACETAMINOPHEN SUPP) 650 Mg Supp.rect, 650 MG OH PRN Q4HRS PRN for TEMP OVER 100.4F OR MILD PAIN for 30 Days, #20 SUPP.RECT Prov:SURY PATTERSON MD 11/10/20 Hydralazine Hcl (HYDRALAZINE HCL) 25 Mg Tablet, 25 MG PO TID for BLOOD PRESSURE for 30 Days, #90 TAB Prov:SURY PATTERSON MD 11/10/20 Metoprolol Succinate (METOPROLOL SUCCINATE ( XL )) 25 Mg Tab.er.24h, 50 MG PO DAILY for AFIB, coronary artery disease for 30 Days, #60 TAB 2 Refills Prov:YUDY SCOTT APRN 04/09/19 Reported Medications Apixaban (ELIQUIS) 5 Mg Tablet, 5 MG PO BID for afib, TAB 4/1/21 Ferrous Sulfate (SLOW RELEASE IRON) 160 Mg Tablet.er, 160 MG PO DAILY for supplement/anemia, TAB.SR 11/04/20 Aspirin (ASPIRIN EC) 81 Mg Tablet.dr, 1 TAB PO DAILY for antiplatelet, #30 TAB 3 Refills 04/09/19 Buspirone Hcl (BUSPIRONE HCL) 10 Mg Tablet, 1 TAB PO TID PRN PRN for ANXIETY / AGITATION, #60 TAB 1 Refill 04/06/19 Atorvastatin Calcium (ATORVASTATIN CALCIUM) 40 Mg Tablet, 40 MG PO HS 11/29/13 Discontinued Reported Medications Entecavir (Entecavir) 0.5 Mg Tablet, 0.5 MG PO DAILY for hep B, TAB 11/05/20 Hydralazine Hcl (HYDRALAZINE HCL) 50 Mg Tablet, 1 TAB PO TID for HTN, #90 TAB 5 Refills 11/04/20 Hydrochlorothiazide (HYDROCHLOROTHIAZIDE TABLET) 12.5 Mg Tablet, 12.5 MG PO DAILY for DIURETIC, TAB 0 Refills 11/04/20 Losartan Potassium (LOSARTAN POTASSIUM) 50 Mg Tablet, 50 MG PO DAILY for HYPERTENSION, TAB 11/04/20 Insulin Regular, Human (NOVOLIN R) 100 Unit/1 Ml Vial, 10 UNIT IJ TIDAC for DM II, EACH 04/06/19 Insulin Glargine,Hum.rec.anlog (LANTUS SOLOSTAR) 100 Unit/1 Ml Insuln.pen, 30 UNIT SQ QHS for DM II, #15 ML 3 Refills 04/06/19 Potassium Chloride (POTASSIUM CHLORIDE ) 20 Meq Tablet.er, 10 MEQ PO DAILY for ELECTROLYTE BALANCE 11/29/13 Allopurinol (ALLOPURINOL) 100 Mg Tablet, 100 MG PO DAILY 11/29/13 Furosemide (FUROSEMIDE) 40 Mg Tablet, 40 MG PO BID for FLUID RETENTION for 30 Days 11/29/13 SURY PATTERSON MD Nov 10, 2020 13:07
[2020-11-10 14:33] VITALS: BP 167/70
--- NOTE | 2020-11-10 19:50 | NUR ---
Discharge Note: SAMEER HOLDEN [address] Discharge instructions and discharge home medications reviewed with Other facility and a copy given. All questions have been answered and understanding verbalized. The following instructions and handouts were given: meds, diet, transfer assist, stop ASA per Jael Maloney, tianna [facility] with sling and care info, recalled TATA Palacio at 1820 to inform her of ASA stop. Discontinued lines and drains: IV removed, no lines present at [place]. Patient discharged to [facility]. Report given to Pia PAYTON at 1510.
== END 2020-11-10 15:00 | DRG 981 ==
LOC: ER 12:47 → ED HOLD 14:52 → 6 SOUTH 18:50 → 2 SOUTH 11-08 00:10
PROVIDERS: ADMIT Internal Medicine; ATTEND Internal Medicine
PROC: 30233N1 Transfusion of Nonautologous Red Blood Cells into Peripheral Vein, Percutaneous Approach (ICD-10-PCS; principal; 2020-11-04)
PROC: 0DB68ZX Excision of Stomach, Via Natural or Artificial Opening Endoscopic, Diagnostic (ICD-10-PCS; 2020-11-05)
PROC: 0JH606Z Insertion of Pacemaker, Dual Chamber into Chest Subcutaneous Tissue and Fascia, Open Approach (ICD-10-PCS; 2020-11-09)
PROC: 02HK3JZ Insertion of Pacemaker Lead into Right Ventricle, Percutaneous Approach (ICD-10-PCS; 2020-11-09)
PROC: 02H63JZ Insertion of Pacemaker Lead into Right Atrium, Percutaneous Approach (ICD-10-PCS; 2020-11-09)
PROC: 4B02XSZ Measurement of Cardiac Pacemaker, External Approach (ICD-10-PCS; 2020-11-10)
DX: K25.4 Chronic or unspecified gastric ulcer with hemorrhage (principal); N17.0 Acute kidney failure with tubular necrosis; N18.6 End stage renal disease; J96.01 Acute respiratory failure with hypoxia; I48.21 Permanent atrial fibrillation; I50.32 Chronic diastolic (congestive) heart failure; D62 Acute posthemorrhagic anemia; I13.2 Hypertensive heart and chronic kidney disease with heart failure and with stage 5 chronic kidney disease, or end stage renal disease; Z68.42 Body mass index [BMI] 45.0-49.9, adult; I49.5 Sick sinus syndrome; E11.22 Type 2 diabetes mellitus with diabetic chronic kidney disease; E11.51 Type 2 diabetes mellitus with diabetic peripheral angiopathy without gangrene; E11.40 Type 2 diabetes mellitus with diabetic neuropathy, unspecified; I27.29 Other secondary pulmonary hypertension; Z95.5 Presence of coronary angioplasty implant and graft; I25.10 Atherosclerotic heart disease of native coronary artery without angina pectoris; K29.70 Gastritis, unspecified, without bleeding; E66.01 Morbid (severe) obesity due to excess calories; I48.91 Unspecified atrial fibrillation; Z86.14 Personal history of Methicillin resistant Staphylococcus aureus infection; Z22.322 Carrier or suspected carrier of Methicillin resistant Staphylococcus aureus; I35.0 Nonrheumatic aortic (valve) stenosis; Z20.822 Contact with and (suspected) exposure to COVID-19; E78.00 Pure hypercholesterolemia, unspecified; E78.5 Hyperlipidemia, unspecified; F41.9 Anxiety disorder, unspecified; I07.1 Rheumatic tricuspid insufficiency; Z79.01 Long term (current) use of anticoagulants; Z80.9 Family history of malignant neoplasm, unspecified; Z82.49 Family history of ischemic heart disease and other diseases of the circulatory system; H93.19 Tinnitus, unspecified ear
CPT/HCPCS: 33217; 36415; 36430; 43239; 43255; 71045; 75820; 76770; 80048; 80053; 80076; 82274; 82607; 82962; 83540; 83550; 83690; 83735; 84443; 84484; 85025; 85610; 85730; 86850; 86900; 86901; 86920; 87426; 88305; 88342; 93005; 94799; 96361; 96374; 96375; 99152; 99153; 99291; C1721; C9113; J0690; J1815; J1940; J2250; J2704; J3010; J3490; J7030; J7040; J7050; P9016; Q9967; U0003; U0005; 97110-GP; 97116-GP; 97530-GO; 97530-GP; 97535-GO; G0378

== ENCOUNTER → 2020-12-09 | Outpatient (CLI) | payer MEDICARE ==
[~2020-12-09] MED LIST changes: +ACET650S11 PR; +APIX5TAB PO; +ENTE0.5T12 PO; +FAMO20TA5 PO; +FERR160T5 PO; +HYDR-2868 PO; +HYDR-2869 PO; +HYDR12.58 PO; +INSU100V35 SQ; +LOSA-73 PO
[2020-12-09 08:25] LABS: HEMATOCRIT 21.5 % (39.0-53.0)
[2020-12-09 09:55] VITALS: BP 128/56
[2020-12-09 10:52] VITALS: BP 114/56
[2020-12-09 11:34] VITALS: BP 117/56
== END ==
LOC: OPS 07:44
PROVIDERS: ATTEND Internal Medicine
DX: D64.9 Anemia, unspecified (principal)
CPT/HCPCS: 36415; 85014; 85018; 86850; 86900; 86901; 86920; P9016

== ENCOUNTER 2020-12-20 12:27 | Inpatient (IN) | payer MEDICARE ==
[~2020-12-20] VITALS: Ht 177.8 cm; Wt 114.5 kg
[2020-12-20 13:47] LABS: BASO # 0.1 x10^3/uL (0.0-0.2); BASO % 1 % (0-3); EOS # 0.3 x10^3/uL (0.0-0.7); EOS % 4 % (0-3); HEMATOCRIT 25.6 % (39.0-53.0); HEMOGLOBIN 8.2 g/dL (13.0-17.5); LYMPH # 1.4 x10^3/uL (1.0-4.8); LYMPH % 16 % (24-48); MEAN CORPUSCULAR HEMOGLOBIN 29 pg (25-35); MEAN CORPUSCULAR HGB CONC 32 g/dL (31-37); MEAN CORPUSCULAR VOLUME 92 fL (79-100); MONO # 0.8 x10^3/uL (0.0-1.1); MONO % 9 % (0-9); NEUT % 70 % (31-73); PLATELET COUNT 202 x10^3/uL (140-400); RED CELL DISTRIBUTION WIDTH 19.5 % (11.5-14.5); WHITE BLOOD COUNT 8.6 x10^3/uL (4.0-11.0)
[2020-12-20 13:58] LABS: CALCIUM 8.2 mg/dL (8.5-10.1); CREATININE 2.6 mg/dL (0.7-1.3); GFR 24.3; POTASSIUM 4.1 mmol/L (3.5-5.1)
[2020-12-20 14:04] LABS: ALBUMIN 2.5 g/dL (3.4-5.0); ALBUMIN/GLOBULIN RATIO 0.7 (1.0-1.7); MAGNESIUM 2.5 mg/dL (1.8-2.4); TOTAL BILIRUBIN 0.6 mg/dL (0.2-1.0)
--- NOTE | 2020-12-20 14:43 | RAD ---
EXAM: Chest, single view. HISTORY: Shortness of air. COMPARISON: 11/10/2020 FINDINGS: A frontal view of the chest is obtained. There is stable diffuse increased interstitial opa city with right infrahilar linear atelectasis or scarring. There is stable elevation of the right hem idiaphragm. There is a stable prominent cardiac silhouette and cardiac pacemaker. IMPRESSION: 1. Stable diffuse interstitial infiltrate with suspected right infrahilar atelectasis or scarring. 2. Stable prominent cardiac silhouette. Electronically signed by: Leena Lerma MD (12/20/2020 2:40 PM) [id number]
--- NOTE | 2020-12-20 16:21 | EKG ---
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
--- NOTE | 2020-12-20 16:26 | RAD ---
EXAM: Bilateral lower extremity venous Doppler. HISTORY: Bilateral lower extremity pain/swelling. COMPARISON: None. FINDINGS: Grayscale and Doppler analysis of the both lower extremity deep venous systems was performe d with graded compression and augmentation. The common femoral, greater saphenous, superficial femora l, popliteal and calf veins were assessed. There is no evidence of deep venous thrombosis. IMPRESSION: 1. No evidence of deep venous thrombosis. Electronically signed by: Lissa Crocker MD (12/20/2020 4:23 PM) [id number]
--- NOTE | 2020-12-20 16:30 | PHYS DOC ---
Past Medical History Past Medical History: A-Fib, CHF, Diabetes-Type II, GI Bleed, Hypertension, Renal Failure, Vascular Disease Additional Past Medical Histor: GOUT Past Surgical History: No Surgical History Additional Past Surgical Histo: CARDIAC STENTS Smoking Status: Never Smoker Alcohol Use: None Drug Use: None General Adult EDM: Chief Complaint: LOWER EXT swelling, anemia HPI: HPI: Patient is a 75 year old male who was sent here from [facility] for evaluation due to bilateral lower extremity swelling, worsening renal function. He has history of CHF, history of chronic renal failure. Patient was sent here by the [employer]ER there today for evaluation of bilateral lower extremity swelling and increased renal function test. Patient denies any chest pain, denies any cough or fever. Patient does have trouble breathing with exertion. Patient says they told him to come here to be admitted so they can do colonoscopy because he has been anemic as well. Patient denies any rectal bleeding. Review of Systems: Review of Systems: Constitutional: Denies fever or chills. [] Eyes: Denies change in visual acuity. [] HENT: Denies nasal congestion or sore throat. [] Respiratory: Denies cough or shortness of breath. [] Cardiovascular: Denies chest pain or edema. [] GI: Denies abdominal pain, nausea, vomiting, bloody stools or diarrhea. [] : Denies dysuria. [] Musculoskeletal: Positive for bilateral lower extremities swelling. Integument: Denies rash. [] Neurologic: Denies headache, focal weakness or sensory changes. [] Endocrine: Denies polyuria or polydipsia. [] Lymphatic: Denies swollen glands. [] Psychiatric: Denies depression or anxiety. [] Heart Score: C/O Chest Pain: N/A Risk Factors: Risk Factors: DM, Current or recent (<one month) smoker, HTN, HLP, family history of CAD, obesity. Risk Scores: Score 0 - 3: 2.5% MACE over next 6 weeks - Discharge Home Score 4 - 6: 20.3% MACE over next 6 weeks - Admit for Clinical Observation Score 7 - 10: 72.7% MACE over next 6 weeks - Early Invasive Strategies Allergies: Allergies: Allergies Coded Allergies Type Severity Reaction Last Updated Verified Sulfa (Sulfonamide Antibiotics) Allergy Intermediate Nausea and Vomiting 12/09/20 Yes I S O L A T I O N *CONTACT* Allergy Unknown UNK 12/09/20 Yes Physical Exam: PE: Constitutional: Well developed, well nourished, no acute distress, non-toxic appearance. [] HENT: Normocephalic, atraumatic, bilateral external ears normal, oropharynx moist, no oral exudates, nose normal. [] Eyes: PERRLA, EOMI, conjunctiva normal, no discharge. [] Neck: Normal range of motion, no tenderness, supple, no stridor. [] Cardiovascular:Heart rate regular rhythm, no murmur [] Lungs & Thorax: Bilateral breath sounds clear to auscultation [] Abdomen: Bowel sounds normal, soft, no tenderness, no masses, no pulsatile masses. [] Skin: Warm, dry, no erythema, no rash. [] Back: No tenderness, no CVA tenderness. [] Extremities: No tenderness, no cyanosis, bilateral lower extremities with pitting edema 4 plus. Neurologic: Alert and oriented X 3, normal motor function, normal sensory function, no focal deficits noted. [] Psychologic: Affect normal, judgement normal, mood normal. [] Current Patient Data: Labs: Laboratory Tests Test 12/20/20 13:39 White Blood Count 8.6 x10^3/uL (4.0-11.0) Red Blood Count 2.80 x10^6/uL (4.30-5.70) L Hemoglobin 8.2 g/dL (13.0-17.5) L Hematocrit 25.6 % (39.0-53.0) L Mean Corpuscular Volume 92 fL (79-100) Mean Corpuscular Hemoglobin 29 pg (25-35) Mean Corpuscular Hemoglobin Concent 32 g/dL (31-37) Red Cell Distribution Width 19.5 % (11.5-14.5) H Platelet Count 202 x10^3/uL (140-400) Neutrophils (%) (Auto) 70 % (31-73) Lymphocytes (%) (Auto) 16 % (24-48) L Monocytes (%) (Auto) 9 % (0-9) Eosinophils (%) (Auto) 4 % (0-3) H Basophils (%) (Auto) 1 % (0-3) Neutrophils # (Auto) 6.0 x10^3/uL (1.8-7.7) Lymphocytes # (Auto) 1.4 x10^3/uL (1.0-4.8) Monocytes # (Auto) 0.8 x10^3/uL (0.0-1.1) Eosinophils # (Auto) 0.3 x10^3/uL (0.0-0.7) Basophils # (Auto) 0.1 x10^3/uL (0.0-0.2) Sodium Level 140 mmol/L (136-145) Potassium Level 4.1 mmol/L (3.5-5.1) Chloride Level 106 mmol/L (98-107) Carbon Dioxide Level 22 mmol/L (21-32) Anion Gap 12 (6-14) Blood Urea Nitrogen 108 mg/dL (8-26) H Creatinine 2.6 mg/dL (0.7-1.3) H Estimated GFR (Cockcroft-Gault) 24.3 BUN/Creatinine Ratio 42 (6-20) H Glucose Level 155 mg/dL (70-99) H Calcium Level 8.2 mg/dL (8.5-10.1) L Magnesium Level 2.5 mg/dL (1.8-2.4) H Total Bilirubin 0.6 mg/dL (0.2-1.0) Aspartate Amino Transferase (AST) 28 U/L (15-37) Alanine Aminotransferase (ALT) 13 U/L (16-63) L Alkaline Phosphatase 111 U/L (46-116) Troponin I Quantitative 0.018 ng/mL (0.000-0.055) KG-Yog-Q-Type Natriuretic Peptide 41050 pg/mL (0-124) H Total Protein 6.0 g/dL (6.4-8.2) L Albumin 2.5 g/dL (3.4-5.0) L Albumin/Globulin Ratio 0.7 (1.0-1.7) L Laboratory Tests 12/20/20 13:39 Laboratory Tests 12/20/20 13:39 Vital Signs: Vital Signs Date Time Temp Pulse Resp B/P (MAP) Pulse Ox O2 Delivery O2 Flow Rate FiO2 12/20/20 15:18 58 136/71 (92) 96 Room Air 12/20/20 12:37 98.3 14 98.3 EKG: EKG: EKG was done at 1323, heart rate of 60 bpm, no ST segment elevation, prolonged QTC Radiology/Procedures: Radiology/Procedures: [facility] [address] [place] [address] IMAGING REPORT Signed PATIENT: SAMEER HOLDEN GACCOUNT: [id number] : 1945 LOCATION: ER AGE: 75 SEX: M EXAM STATUS: REG ER ORD. PHYSICIAN: NICOLAS BOYLE DO REASON: SOA PROCEDURE: CHEST AP ONLY EXAM: Chest, single view. HISTORY: Shortness of air. COMPARISON: 11/10/2020 FINDINGS: A frontal view of the chest is obtained. There is stable diffuse increased interstitial opacity with right infrahilar linear atelectasis or scarring. There is stable elevation of the right hemidiaphragm. There is a stable prominent cardiac silhouette and cardiac pacemaker. IMPRESSION: 1. Stable diffuse interstitial infiltrate with suspected right infrahilar atelectasis or scarring. 2. Stable prominent cardiac silhouette. Electronically signed by: Leena Lucas MD (12/20/2020 2:40 PM) [id number] DICTATED and SIGNED BY: LEENA LUCAS MD DATE: 12/20/20 [id number] [address] IMAGING REPORT Signed PATIENT: SAMEER HOLDEN GACCOUNT: [id number] : 1945 LOCATION: ER AGE: 75 SEX: M EXAM STATUS: REG ER ORD. PHYSICIAN: NICOLAS BOYLE DO REASON: legs pain and swelling PROCEDURE: VENOUS LOWER EXT BILATERAL EXAM: Bilateral lower extremity venous Doppler. HISTORY: Bilateral lower extremity pain/swelling. COMPARISON: None. FINDINGS: Grayscale and Doppler analysis of the both lower extremity deep venous systems was performed with graded compression and augmentation. The common femoral, greater saphenous, superficial femoral, popliteal and calf veins were assessed. There is no evidence of deep venous thrombosis. IMPRESSION: 1. No evidence of deep venous thrombosis. Electronically signed by: Lissa Crocker MD (12/20/2020 4:23 PM) [id number] DICTATED and SIGNED BY: MOHAMUD CROCKER MD DATE: 12/20/20 [id number] Course & Med Decision Making: Course & Med Decision Making Pertinent Labs and Imaging studies reviewed. (See chart for details) Patient Is a 75-year-old male who was sent here from half-way due to b ilateral lower extremity swelling, venous Doppler of his legs did not show evidence of DVT. Patient BUN is trending up, creatinine level at baseline. His BNP is trending up. Patient found to be anemic but he has been anemic for the last few month. Discussed with hospitalist on-call Dr. Wynn who agreed to admit the patient for observation. Dragon Disclaimer: Dragon Disclaimer: This electronic medical record was generated, in whole or in part, using a voice recognition dictation system. Departure Departure Impression: Primary Impression: CHF exacerbation Additional Impressions: Anemia Chronic kidney disease (CKD) Disposition: ADMITTED INPATIENT Admitting Physician: YAMILEXS (Dr. Wynn) Condition: STABLE Referrals: BART TELLES MD (PCP) NICOLAS BOYLE DO December 20, 2020 16:30
[2020-12-20 18:30] VITALS: BP 113/54
[2020-12-20] MEDS ORDERED: METO-239 PO (21:18)
[2020-12-20] MEDS ORDERED: POTA-163 PO (21:31)
[2020-12-20] MEDS ORDERED: SENN8.6T99 PO (21:31)
[2020-12-20] MEDS ORDERED: SERT50TA PO (21:31)
[2020-12-20] MEDS ORDERED: FURO-68 PO (21:31)
[2020-12-20] MEDS ORDERED: ASCO500C9 PO (21:31)
[2020-12-20] MEDS ORDERED: NYST15PO9 TP (21:31)
[2020-12-20] MEDS ORDERED: ACET325T9 PO (21:32)
[2020-12-20] MEDS ORDERED: DEXTROSE 50% 25 GM / 50ML DISP.SYRIN. IV PRN (21:45)
[2020-12-20] MEDS ORDERED: busPIRone 10 MG TABLET. PO PRN (21:45)
[2020-12-20] MEDS ORDERED: FUROSEMIDE 40 MG/4 ML VIAL. IVP ONE (21:45)
[2020-12-20] MEDS ORDERED: DOCUSATE SODIUM 100 MG CAPSULE. PO PRN (21:45)
[2020-12-20] MEDS ORDERED: SENNOSIDES 8.6 MG TABLET PO PRN (21:45)
--- NOTE | 2020-12-20 21:47 | PDOC1 ---
History and Physical Date of Service: DOS: DATE: 12/20/20 TIME: 21:27 Chief Complaint: Chief Complain: Whole body swelling History of Present Illness: HPI: 75 year old male who was sent here from [facility] for evaluation due to bilateral lower extremity swelling, worsening renal function. He has history of CHF, history of chronic renal failure. Patient was sent here by the [employer] there today for evaluation of bilateral lower extremity swelling and increased renal function test. Patient denies any chest pain, denies any cough or fever. Patient does have trouble breathing with exertion. Patient says they told him to come here to be admitted so they can do colonoscopy because he has been anemic as well. Patient denies any rectal bleeding. His weight today is 147 kg Upon chart review patient was seen in November 04 09/12/2020 for GI bleed.. Eliquis was actually restarted on 11/09/2020. And also had a pacemaker placed on 11/09/2020 and tolerated procedure well. Patient also does follow-up with Dr. Chau with nephrology and his baseline creatinine appears to be between 1.8-2.0. Past Medical/Surgical History: PMH/PSH: Past Medical History: A-Fib, CHF, Diabetes-Type II, GI Bleed, Hypertension, Renal Failure, Vascular Disease, GOUT Past Surgical History: CARDIAC STENTS Allergies: Allergies: Coded Allergies: Sulfa (Sulfonamide Antibiotics) (Verified Allergy, Intermediate, Nausea and Vomiting, 12/09/20) I S O L A T I O N *CONTACT* (Verified Allergy, Unknown, UNK, 12/09/20) MRSA + Family History: Family History: Reviewed with no relevant findings Social History: Social History: Smoking Status: Never Smoker Alcohol Use: None Drug Use: None Current Medications: Current Medications Active Scripts Active Lantus (Insulin Glargine,Hum.rec.anlog) 100 Unit/1 Ml Vial 15 Unit SQ QHS 30 Days Famotidine 20 Mg Tablet 20 Mg PO DAILY 30 Days Acetaminophen Supp (Acetaminophen) 650 Mg Supp.rect 650 Mg MT PRN Q4HRS PRN 30 Days Hydralazine Hcl 25 Mg Tablet 25 Mg PO TID 30 Days Reported Metoprolol Succinate ( Xl ) (Metoprolol Succinate) 25 Mg Tab.er.24h 25 Mg PO DAILY Eliquis (Apixaban) 5 Mg Tablet 2.5 Mg PO BID Slow Release Iron (Ferrous Sulfate) 160 Mg Tablet.er 160 Mg PO DAILY Buspirone Hcl 10 Mg Tablet 1 Tab PO PRN DAILY PRN Atorvastatin Calcium 40 Mg Tablet 40 Mg PO HS ROS: Review of Systems Review of System REVIEW OF SYSTEMS: GENERAL: Denies weakness SKIN: No bruising, hair changes or rashes. EYES: No blurred, double or loss of vision. NOSE AND THROAT: No history of nosebleeds, hoarseness or sore throat. HEART: No history of palpitations, chest pain or shortness of breath on exertion. LUNGS: Denies cough, hemoptysis, wheezing or shortness of breath. GASTROINTESTINAL: Denies changes in appetite, nausea, vomiting, diarrhea or constipation. GENITOURINARY: No history of frequency, urgency, hesitancy or nocturia. NEUROLOGIC: Denies history of numbness, tingling, or tremor. PSYCHIATRIC: No history of panic, anxiety or depression. ENDOCRINE: No history of heat or cold intolerance, polyuria or polydipsia. EXTREMITIES: Denies joint pain, pain on walking or stiffness. Physical Exam: Vital Signs: Vital Signs Date Time Temp Pulse Resp B/P (MAP) Pulse Ox O2 Delivery O2 Flow Rate FiO2 12/20/20 18:30 97.7 62 113/54 (73) 96 Room Air 97.7 12/20/20 12:37 14 Physcial Exam: GEN: No apparent distress. Alert and oriented HEENT: Normal cephalic, atraumatic, external auditory canals are patent EYES: Extraocular muscles are intact, pupil are equally round and reactive to light and accommodation MUSCULOSKELETAL: Well developed , well nourished, good range of motion ENDOCRINE: No thyromegaly was palpated LYMPHATICS: No cervical chain or axillary nodes were noted HEMATOPOIETIC: No bruising NECK: Supple, no JVD, no thyromegaly was noted LUNGS: Clear to auscultation in all lung giron without rhonchi or wheezing HEART: RRR, S!, S2 present. Peripheral pulses intact, no obvious murmurs noted ABDOMEN: Soft, nontender. Positive bowel sounds, no organomegaly, normal bowel sounds EXTREMITIES: Without clubbing, cyanosis, or edema. Pedal pulses intact. Negative Homans sign NEUROLOGIC: Normal speech and tone. A&O x 3, moves all extremities, no obvious focal deficits PSYCHIATRIC: Normal affect, normal mood. Stable SKIN: No ulcerations or rashes, good skin turgor, no jaundice VASCULAR: Good capillary refill, neurovascular bundle appears to be intact Labs: Labs: Laboratory Tests Test 12/20/20 13:39 White Blood Count 8.6 x10^3/uL (4.0-11.0) Red Blood Count 2.80 x10^6/uL (4.30-5.70) Hemoglobin 8.2 g/dL (13.0-17.5) Hematocrit 25.6 % (39.0-53.0) Mean Corpuscular Volume 92 fL (79-100) Mean Corpuscular Hemoglobin 29 pg (25-35) Mean Corpuscular Hemoglobin Concent 32 g/dL (31-37) Red Cell Distribution Width 19.5 % (11.5-14.5) Platelet Count 202 x10^3/uL (140-400) Neutrophils (%) (Auto) 70 % (31-73) Lymphocytes (%) (Auto) 16 % (24-48) Monocytes (%) (Auto) 9 % (0-9) Eosinophils (%) (Auto) 4 % (0-3) Basophils (%) (Auto) 1 % (0-3) Neutrophils # (Auto) 6.0 x10^3/uL (1.8-7.7) Lymphocytes # (Auto) 1.4 x10^3/uL (1.0-4.8) Monocytes # (Auto) 0.8 x10^3/uL (0.0-1.1) Eosinophils # (Auto) 0.3 x10^3/uL (0.0-0.7) Basophils # (Auto) 0.1 x10^3/uL (0.0-0.2) Sodium Level 140 mmol/L (136-145) Potassium Level 4.1 mmol/L (3.5-5.1) Chloride Level 106 mmol/L (98-107) Carbon Dioxide Level 22 mmol/L (21-32) Anion Gap 12 (6-14) Blood Urea Nitrogen 108 mg/dL (8-26) Creatinine 2.6 mg/dL (0.7-1.3) Estimated GFR (Cockcroft-Gault) 24.3 BUN/Creatinine Ratio 42 (6-20) Glucose Level 155 mg/dL (70-99) Calcium Level 8.2 mg/dL (8.5-10.1) Magnesium Level 2.5 mg/dL (1.8-2.4) Total Bilirubin 0.6 mg/dL (0.2-1.0) Aspartate Amino Transf (AST/SGOT) 28 U/L (15-37) Alanine Aminotransferase (ALT/SGPT) 13 U/L (16-63) Alkaline Phosphatase 111 U/L (46-116) Troponin I Quantitative 0.018 ng/mL (0.000-0.055) ZH-Kwg-C-Type Natriuretic Peptide 62455 pg/mL (0-124) Total Protein 6.0 g/dL (6.4-8.2) Albumin 2.5 g/dL (3.4-5.0) Albumin/Globulin Ratio 0.7 (1.0-1.7) Laboratory Tests Test 12/20/20 13:39 White Blood Count 8.6 x10^3/uL (4.0-11.0) Red Blood Count 2.80 x10^6/uL (4.30-5.70) Hemoglobin 8.2 g/dL (13.0-17.5) Hematocrit 25.6 % (39.0-53.0) Mean Corpuscular Volume 92 fL (79-100) Mean Corpuscular Hemoglobin 29 pg (25-35) Mean Corpuscular Hemoglobin Concent 32 g/dL (31-37) Red Cell Distribution Width 19.5 % (11.5-14.5) Platelet Count 202 x10^3/uL (140-400) Neutrophils (%) (Auto) 70 % (31-73) Lymphocytes (%) (Auto) 16 % (24-48) Monocytes (%) (Auto) 9 % (0-9) Eosinophils (%) (Auto) 4 % (0-3) Basophils (%) (Auto) 1 % (0-3) Neutrophils # (Auto) 6.0 x10^3/uL (1.8-7.7) Lymphocytes # (Auto) 1.4 x10^3/uL (1.0-4.8) Monocytes # (Auto) 0.8 x10^3/uL (0.0-1.1) Eosinophils # (Auto) 0.3 x10^3/uL (0.0-0.7) Basophils # (Auto) 0.1 x10^3/uL (0.0-0.2) Sodium Level 140 mmol/L (136-145) Potassium Level 4.1 mmol/L (3.5-5.1) Chloride Level 106 mmol/L (98-107) Carbon Dioxide Level 22 mmol/L (21-32) Anion Gap 12 (6-14) Blood Urea Nitrogen 108 mg/dL (8-26) Creatinine 2.6 mg/dL (0.7-1.3) Estimated GFR (Cockcroft-Gault) 24.3 BUN/Creatinine Ratio 42 (6-20) Glucose Level 155 mg/dL (70-99) Calcium Level 8.2 mg/dL (8.5-10.1) Magnesium Level 2.5 mg/dL (1.8-2.4) Total Bilirubin 0.6 mg/dL (0.2-1.0) Aspartate Amino Transf (AST/SGOT) 28 U/L (15-37) Alanine Aminotransferase (ALT/SGPT) 13 U/L (16-63) Alkaline Phosphatase 111 U/L (46-116) Troponin I Quantitative 0.018 ng/mL (0.000-0.055) LI-Lah-Z-Type Natriuretic Peptide 68803 pg/mL (0-124) Total Protein 6.0 g/dL (6.4-8.2) Albumin 2.5 g/dL (3.4-5.0) Albumin/Globulin Ratio 0.7 (1.0-1.7) Images: Images CXR IMPRESSION: 1. Stable diffuse interstitial infiltrate with suspected right infrahilar atelectasis or scarring. 2. Stable prominent cardiac silhouette. DVT ultrasound negative for any acute DVTs Assessment/Plan Assessment/Plan Acute volume overload Acute on chronic CHF exacerbation History of chronic kidney disease Normocytic anemia, possible chronic GI blood loss with EGD showing antral gastric ulcer Morbid obesity, OHS, suspect ROBB Severe protein malnutrition History of diabetes mellitus type 2 History of peripheral vascular disease History of atrial fibrillation History of bradycardia status post pacemaker placement Hypertension Dyslipidemia Admit to medicine for further management Lasix IV as needed Strict I's and O's Nephrology consult Cardiology consult Trend hemoglobin if less than 7 then transfuse 1 unit Eliquis for DVT prophylaxis Pepcid GI prophylaxis ADA diet Full code Discussed with RN and SW Disposition inpatient management as above Surrogate decision maker is Phuong Mathis Advance care planning: A total time of > 17 minutes was spent in face to face in discussion with the patient regarding their goals of care, Justifications for Admission Other Justification GI bleed requiring transfusion KANNAN NELSON MD December 20, 2020 21:47
--- NOTE | 2020-12-20 21:49 | NUR ---
confirmed with denise at [facility] that pt is on eliquis 2.5mg twice a day. lcrn
[2020-12-20] MEDS: ACETAMINOPHEN 325 MG TABLET. PO PRN (23:02)
[2020-12-20] MEDS: APIXABAN 2.5 MG TABLET. PO SCH (23:03)
[2020-12-20] MEDS: ASCORBIC ACID 500 MG TABLET PO SCH (23:03)
[2020-12-20] MEDS: ATORVASTATIN CALCIUM 40 MG TABLET. PO SCH (23:03)
[2020-12-20] MEDS: INSULIN GLARGINE SYRINGE. SQ SCH (23:08)
[2020-12-20] MEDS: NYSTATIN TOPICAL POWDER 15GM BOTTLE. TP SCH (23:09)
[2020-12-20 23:10] VITALS: BP 150/47
[2020-12-21] VITALS (10 sets, daily range): BP systolic 113–148; BP diastolic 42–70
[2020-12-21 04:45] LABS: BASO # 0.1 x10^3/uL (0.0-0.2); BASO % 1 % (0-3); EOS # 0.7 x10^3/uL (0.0-0.7); EOS % 11 % (0-3); HEMATOCRIT 21.5 % (39.0-53.0); LYMPH # 1.7 x10^3/uL (1.0-4.8); LYMPH % 26 % (24-48); MEAN CORPUSCULAR HEMOGLOBIN 29 pg (25-35); MEAN CORPUSCULAR HGB CONC 32 g/dL (31-37); MEAN CORPUSCULAR VOLUME 92 fL (79-100); MONO # 0.7 x10^3/uL (0.0-1.1); MONO % 10 % (0-9); NEUT # 3.5 x10^3/uL (1.8-7.7); NEUT % 53 % (31-73); PLATELET COUNT 169 x10^3/uL (140-400); RED BLOOD COUNT 2.35 x10^6/uL (4.30-5.70); RED CELL DISTRIBUTION WIDTH 19.3 % (11.5-14.5); WHITE BLOOD COUNT 6.7 x10^3/uL (4.0-11.0)
[2020-12-21 04:47] LABS: HEMOGLOBIN 6.9 g/dL (13.0-17.5)
[2020-12-21 05:05] LABS: CALCIUM 7.8 mg/dL (8.5-10.1); CREATININE 2.5 mg/dL (0.7-1.3); GFR 25.4; MAGNESIUM 2.3 mg/dL (1.8-2.4); PHOSPHORUS 4.1 mg/dL (2.6-4.7); POTASSIUM 3.5 mmol/L (3.5-5.1)
[2020-12-21] MEDS: INSULIN LISPRO 300 UNITS/3 ML VIAL. SQ SCH ×3 (08:00→17:00)
[2020-12-21] MEDS: SERTRALINE 50 MG TABLET. PO SCH (08:52)
[2020-12-21] MEDS: METOPROLOL SUCC 24HR ER 25 MG TAB.ER.24H. PO SCH (08:53)
[2020-12-21] MEDS: ASCORBIC ACID 500 MG TABLET PO SCH ×2 (08:53→21:12)
[2020-12-21] MEDS: FAMOTIDINE 20 MG TABLET. PO SCH (08:53)
[2020-12-21] MEDS: hydrALAZINE 25 MG TABLET PO SCH ×3 (08:53→21:12)
[2020-12-21] MEDS: APIXABAN 2.5 MG TABLET. PO SCH (09:00)
--- NOTE | 2020-12-21 09:05 | PDOC2 ---
YUDY SCOTT VETERINARY VIROLOGIST 12/21/20 0905: CARDIAC CONSULT DATE OF CONSULT Date of Consult DATE: 12/21/20 TIME: 08:37 REASON FOR CONSULT Reason for Consult: CHF exacerbation REFERRING PHYSICIAN Referring Physician: Dr. Wynn SOURCE Source: Chart review, Patient HISTORY OF PRESENT ILLNESS HISTORY OF PRESENT ILLNESS This is a 75 yo male who presented from [facility] secondary to LE edema and worsening renal function. Has also been anemic. Was seen at facility by [facility] [facility] and referred to the ED for further evaluation and treatment. Patient reports he has been edematous for the last several weeks. Has progressively worsened. Has been complaints with Lasix at facility. Denies any chest pain or shortness of breath. Denies any rectal bleeding. Has been very active a PP, participating in physical therapy multiple times per day. Has bilateral heel wounds from exercise bike at facility. PAST MEDICAL HISTORY Cardiovascular: AFIB, CAD, CHF, HTN, Hyperlipidemia CENTRAL NERVOUS SYSTEM: Periperal neuropathy GI: GERD, GI bleed Heme/Onc: Anemia NOS Psych: Anxiety, Depression Rheumatologic: Gout Renal/: Chronic renal insuff Endocrine: Diabetes PAST SURGICAL HISTORY Past Surgical History: Pacemaker FAMILY HISTORY Family History: Heart Disease, Hypertension SOCIAL HISTORY ALCOHOL: none Drugs: None Lives: Long-Term CURRENT MEDICATIONS CURRENT MEDICATIONS Current Medications Medications (Trade) Dose Ordered Sig/Redd Route PRN Reason Start Time Stop Time Status Last Admin Dose Admin Apixaban (Eliquis) 2.5 mg BID PO 12/20/20 22:00 12/20/20 23:03 Atorvastatin Calcium (Lipitor) 40 mg HS PO 12/20/20 22:00 12/20/20 23:03 Insulin Glargine (Lantus Syringe) 15 unit QHS SQ 12/20/20 22:00 12/20/20 23:08 Nystatin (Nystop) 1 luna BID TP 12/20/20 22:00 12/20/20 23:09 Ascorbic Acid (Vitamin C) 500 mg BID PO 12/20/20 22:00 12/20/20 23:03 Furosemide (Lasix) 40 mg 1X ONCE IVP 12/20/20 21:45 12/20/20 21:46 DC 12/20/20 23:03 Acetaminophen (Tylenol) 650 mg PRN Q4HRS PRN PO TEMP OVER 100.4F OR MILD PAIN 12/20/20 21:45 12/20/20 23:02 ALLERGIES ALLERGIES: Coded Allergies: Sulfa (Sulfonamide Antibiotics) (Verified Adverse Reaction, Intermediate, Nausea and Vomiting, 12/21/20) ROS Review of System 14 point ROS conducted with pertinent positives noted above in HPI PHYSICAL EXAM General: Alert, Oriented X3, Cooperative, No acute distress HEENT: Atraumatic Lungs: Clear to auscultation, Other (diminished bases) Heart: Other (2/6 sysotlic murmur, IRRR- tele AFIB. int V pacing ) Abdomen: Soft Extremities: Other (2-3+ bilateral LE edema, anasarca ) Skin: No significant lesion Neuro: Normal speech, Sensation intact Psych/Mental Status: Mental status NL, Mood NL MUSCULOSKELETAL: Osteoarthritic changes both hands VITALS/I&O VITALS/I&O: Vital Signs Date Time Temp Pulse Resp B/P (MAP) Pulse Ox O2 Delivery O2 Flow Rate FiO2 12/21/20 07:00 97.7 61 16 134/57 (82) 94 Room Air 97.7 I & O 12/20/20 12/20/20 12/21/20 15:00 23:00 07:00 Intake Total 200 ml Output Total 550 ml Balance -350 ml LABS Lab: Laboratory Tests Test 12/20/20 13:39 12/20/20 21:24 12/21/20 04:32 12/21/20 08:11 White Blood Count 8.6 x10^3/uL (4.0-11.0) 6.7 x10^3/uL (4.0-11.0) Red Blood Count 2.80 x10^6/uL (4.30-5.70) L 2.35 x10^6/uL (4.30-5.70) L Hemoglobin 8.2 g/dL (13.0-17.5) L 6.9 g/dL (13.0-17.5) *L Hematocrit 25.6 % (39.0-53.0) L 21.5 % (39.0-53.0) L Mean Corpuscular Volume 92 fL (79-100) 92 fL (79-100) Mean Corpuscular Hemoglobin 29 pg (25-35) 29 pg (25-35) Mean Corpuscular Hemoglobin Concent 32 g/dL (31-37) 32 g/dL (31-37) Red Cell Distribution Width 19.5 % (11.5-14.5) H 19.3 % (11.5-14.5) H Platelet Count 202 x10^3/uL (140-400) 169 x10^3/uL (140-400) Neutrophils (%) (Auto) 70 % (31-73) 53 % (31-73) Lymphocytes (%) (Auto) 16 % (24-48) L 26 % (24-48) Monocytes (%) (Auto) 9 % (0-9) 10 % (0-9) H Eosinophils (%) (Auto) 4 % (0-3) H 11 % (0-3) H Basophils (%) (Auto) 1 % (0-3) 1 % (0-3) Neutrophils # (Auto) 6.0 x10^3/uL (1.8-7.7) 3.5 x10^3/uL (1.8-7.7) Lymphocytes # (Auto) 1.4 x10^3/uL (1.0-4.8) 1.7 x10^3/uL (1.0-4.8) Monocytes # (Auto) 0.8 x10^3/uL (0.0-1.1) 0.7 x10^3/uL (0.0-1.1) Eosinophils # (Auto) 0.3 x10^3/uL (0.0-0.7) 0.7 x10^3/uL (0.0-0.7) Basophils # (Auto) 0.1 x10^3/uL (0.0-0.2) 0.1 x10^3/uL (0.0-0.2) Sodium Level 140 mmol/L (136-145) 143 mmol/L (136-145) Potassium Level 4.1 mmol/L (3.5-5.1) 3.5 mmol/L (3.5-5.1) Chloride Level 106 mmol/L (98-107) 109 mmol/L (98-107) H Carbon Dioxide Level 22 mmol/L (21-32) 24 mmol/L (21-32) Anion Gap 12 (6-14) 10 (6-14) Blood Urea Nitrogen 108 mg/dL (8-26) H 105 mg/dL (8-26) H Creatinine 2.6 mg/dL (0.7-1.3) H 2.5 mg/dL (0.7-1.3) H Estimated GFR (Cockcroft-Gault) 24.3 25.4 BUN/Creatinine Ratio 42 (6-20) H Glucose Level 155 mg/dL (70-99) H 73 mg/dL (70-99) Calcium Level 8.2 mg/dL (8.5-10.1) L 7.8 mg/dL (8.5-10.1) L Magnesium Level 2.5 mg/dL (1.8-2.4) H 2.3 mg/dL (1.8-2.4) Total Bilirubin 0.6 mg/dL (0.2-1.0) Aspartate Amino Transferase (AST) 28 U/L (15-37) Alanine Aminotransferase (ALT) 13 U/L (16-63) L Alkaline Phosphatase 111 U/L (46-116) Troponin I Quantitative 0.018 ng/mL (0.000-0.055) NK-Czx-I-Type Natriuretic Peptide 94352 pg/mL (0-124) H Total Protein 6.0 g/dL (6.4-8.2) L Albumin 2.5 g/dL (3.4-5.0) L Albumin/Globulin Ratio 0.7 (1.0-1.7) L Glucose (Fingerstick) 111 mg/dL (70-99) H 66 mg/dL (70-99) L Phosphorus Level 4.1 mg/dL (2.6-4.7) Laboratory Tests 12/20/20 13:39 12/21/20 04:32 Laboratory Tests 12/20/20 13:39 12/21/20 04:32 ECHOCARDIOGRAM ECHOCARDIOGRAM <Conclusion> The left ventricular systolic function is normal. The Ejection Fraction is 55-60%. No regional wall motion abnormalities noted. There is mild-moderate valvular aortic stenosis. Mild mitral regurgitation. Moderate tricuspid regurgitation with PAP of 68 mmHg. There is no evidence of significant pericardial effusion. DATE: 07/16/20 [id number] HEART CATH HEART CATH Conclusion 1. Acute on chronic decompensated heart failure with an LVEDP of 25 mmHg 2. One-vessel coronary artery disease involving the proximal to mid LAD. 3. Successful implantation of a 3.5 x 18 mm drug-eluting stent in the LAD. Recommendations ASA 81mg daily Ticagrelor 90 mg bid x 30 days then switch to Plavix 75mg daily High dose statin therapy Refer to cardiac rehab. DATE: 04/08/19 1150 ASSESSMENT/PLAN ASSESSMENT/PLAN 1. Worsening LE edema, anasarca. has had 15 kg weight gain since discharge from the hospital last month 2. Acute on chronic diastolic CHF; Echo 07/25 with preserved LV systolic function 3. Anemia with h/o GIB with cauterization of bleeding antral ulcer. hgb 6.9. no obvious bleeding. 4. CAD; s/p PCI/RHEA to LAD in 2019. clinically stable, CP free. 5. PAD s/p past orbital atherectomy/MACHINE STRAP BUCKLER to right posterior tibial artery. 6. Permanent AFIB; rate controlled on BB. On low-dose Eliquis for stroke prophylaxis. 7. SSS; s/p PPM ([employer]). intermittent v-pacing 8. Hypertension; controlled 9. Hyperlipidemia; statin 10. Diabetes, II; as per IM 11. REBECCA on CKD. 12. Valvular disease; mild to moderate aortic stenosis 13. Protein calorie malnutrition Recommendations Fluid offloading with monitoring of renal functions D/w renal; will start Lasix gtt Resume secondary prevention Metoprolol for rate control Will hold OAC with GIB Transfuse as warranted Supportive care DICK LAZO MD 12/21/20 1625: CARDIAC CONSULT ASSESSMENT/PLAN ASSESSMENT/PLAN Patient seen and examined. Agree with [employer]OCK TRADER's assessment and plan. Agree with Lasix drip as recommended by nephrology team for acute on chronic diastolic heart failure. Permanent atrial fibrillation rate controlled. Hold Eliquis secondary to anemia and his known history of peptic ulcer disease. CAD and PAD status clinically stable. SSS s/p PPM with recent device check showing normal function. Thank you for your consultation. YUDY SCOTT APRN December 21, 2020 09:05 DICK LAZO MD December 21, 2020 16:25
--- NOTE | 2020-12-21 10:05 | PDOC2 ---
GI CONSULT Date of Service: DATE: 12/21/20 TIME: 10:05 Reason For Consult: hgb 6.9 HPI: HPI: 75 y/o male who we saw early last month for anemia. EGD showed René s/p APC (biopsies negative for H. pylori). Iron and B12 were WNL in 11/2020. H/o CAD, PVD, and A Fib - Eliquis and ASA restarted before discharge. Outpt colonoscopy was recommended. Was started on PPI but changed to H2 severiano w/ REBECCA. Sent to ER w/ BLE swelling and worsening renal labs this time. We are asked to again see for anemia. Earlier this month Hgb in 6-7 range - this time 8.2 yesterday, 6.7 today. INR 1.8, BUN 105, Cr 1.5. Transfusion ordered. He denies obvious bleeding. Also denies GI symptoms including n/v, pain, diarrhea, constipation, or change in appetite. Reviewed med list - on Eliquis, ASA, iron, famotidine at care facility. PMH: PMH: CAD w/ stent, PVD, A Fib, CHF, DM, HTN, HLD, anxiety, neuropathy, MRSA, CKD pardiac cath, pacemaker FH: Family History: Cancer (father - pancreas) Social History: Smoke: No ALCOHOL: none Drugs: None ROS: GEN: Denies fevers, chills, sweats HEENT: Denies blurred vision, sore throat CV: Denies chest pain RESP: Denies shortness of air, cough GI: Per HPI : Denies hematuria, dysuria ENDO: Denies weight changes NEURO: Denies confusion, dizziness MSK: Denies weakness, joint pain/swelling SKIN: leg redness, wounds Vitals: Vitals: Vital Signs Date Time Temp Pulse Resp B/P (MAP) Pulse Ox O2 Delivery O2 Flow Rate FiO2 12/21/20 08:53 61 134/57 12/21/20 08:00 Room Air 12/21/20 07:00 97.7 16 94 97.7 Labs: Labs: Laboratory Tests Test 12/20/20 13:39 12/20/20 21:24 12/21/20 04:32 12/21/20 08:11 White Blood Count 8.6 x10^3/uL (4.0-11.0) 6.7 x10^3/uL (4.0-11.0) Red Blood Count 2.80 x10^6/uL (4.30-5.70) 2.35 x10^6/uL (4.30-5.70) Hemoglobin 8.2 g/dL (13.0-17.5) 6.9 g/dL (13.0-17.5) Hematocrit 25.6 % (39.0-53.0) 21.5 % (39.0-53.0) Mean Corpuscular Volume 92 fL (79-100) 92 fL (79-100) Mean Corpuscular Hemoglobin 29 pg (25-35) 29 pg (25-35) Mean Corpuscular Hemoglobin Concent 32 g/dL (31-37) 32 g/dL (31-37) Red Cell Distribution Width 19.5 % (11.5-14.5) 19.3 % (11.5-14.5) Platelet Count 202 x10^3/uL (140-400) 169 x10^3/uL (140-400) Neutrophils (%) (Auto) 70 % (31-73) 53 % (31-73) Lymphocytes (%) (Auto) 16 % (24-48) 26 % (24-48) Monocytes (%) (Auto) 9 % (0-9) 10 % (0-9) Eosinophils (%) (Auto) 4 % (0-3) 11 % (0-3) Basophils (%) (Auto) 1 % (0-3) 1 % (0-3) Neutrophils # (Auto) 6.0 x10^3/uL (1.8-7.7) 3.5 x10^3/uL (1.8-7.7) Lymphocytes # (Auto) 1.4 x10^3/uL (1.0-4.8) 1.7 x10^3/uL (1.0-4.8) Monocytes # (Auto) 0.8 x10^3/uL (0.0-1.1) 0.7 x10^3/uL (0.0-1.1) Eosinophils # (Auto) 0.3 x10^3/uL (0.0-0.7) 0.7 x10^3/uL (0.0-0.7) Basophils # (Auto) 0.1 x10^3/uL (0.0-0.2) 0.1 x10^3/uL (0.0-0.2) Sodium Level 140 mmol/L (136-145) 143 mmol/L (136-145) Potassium Level 4.1 mmol/L (3.5-5.1) 3.5 mmol/L (3.5-5.1) Chloride Level 106 mmol/L (98-107) 109 mmol/L (98-107) Carbon Dioxide Level 22 mmol/L (21-32) 24 mmol/L (21-32) Anion Gap 12 (6-14) 10 (6-14) Blood Urea Nitrogen 108 mg/dL (8-26) 105 mg/dL (8-26) Creatinine 2.6 mg/dL (0.7-1.3) 2.5 mg/dL (0.7-1.3) Estimated GFR (Cockcroft-Gault) 24.3 25.4 BUN/Creatinine Ratio 42 (6-20) Glucose Level 155 mg/dL (70-99) 73 mg/dL (70-99) Calcium Level 8.2 mg/dL (8.5-10.1) 7.8 mg/dL (8.5-10.1) Magnesium Level 2.5 mg/dL (1.8-2.4) 2.3 mg/dL (1.8-2.4) Total Bilirubin 0.6 mg/dL (0.2-1.0) Aspartate Amino Transf (AST/SGOT) 28 U/L (15-37) Alanine Aminotransferase (ALT/SGPT) 13 U/L (16-63) Alkaline Phosphatase 111 U/L (46-116) Troponin I Quantitative 0.018 ng/mL (0.000-0.055) WC-Xeq-P-Type Natriuretic Peptide 69092 pg/mL (0-124) Total Protein 6.0 g/dL (6.4-8.2) Albumin 2.5 g/dL (3.4-5.0) Albumin/Globulin Ratio 0.7 (1.0-1.7) Glucose (Fingerstick) 111 mg/dL (70-99) 66 mg/dL (70-99) Phosphorus Level 4.1 mg/dL (2.6-4.7) Allergies: Coded Allergies: Sulfa (Sulfonamide Antibiotics) (Verified Adverse Reaction, Intermediate, Nausea and Vomiting, 12/21/20) Medications: Current Medications Medications (Trade) Dose Ordered Sig/Redd Route PRN Reason Start Time Stop Time Status Last Admin Dose Admin Apixaban (Eliquis) 2.5 mg BID PO 12/20/20 22:00 12/21/20 09:00 Atorvastatin Calcium (Lipitor) 40 mg HS PO 12/20/20 22:00 12/20/20 23:03 Famotidine (Pepcid) 20 mg DAILY PO 12/21/20 09:00 12/21/20 08:53 Hydralazine HCl (Apresoline) 25 mg TID PO 12/21/20 09:00 12/21/20 08:53 Insulin Glargine (Lantus Syringe) 15 unit QHS SQ 12/20/20 22:00 12/20/20 23:08 Metoprolol Succinate (Toprol Xl) 25 mg DAILY PO 12/21/20 09:00 12/21/20 08:53 Nystatin (Nystop) 1 luna BID TP 12/20/20 22:00 12/20/20 23:09 Sertraline HCl (Zoloft) 50 mg DAILY PO 12/21/20 09:00 12/21/20 08:52 Ascorbic Acid (Vitamin C) 500 mg BID PO 12/20/20 22:00 12/21/20 08:53 Furosemide (Lasix) 40 mg 1X ONCE IVP 12/20/20 21:45 12/20/20 21:46 DC 12/20/20 23:03 Acetaminophen (Tylenol) 650 mg PRN Q4HRS PRN PO TEMP OVER 100.4F OR MILD PAIN 12/20/20 21:45 12/20/20 23:02 Imaging: Imaging: CXR IMPRESSION: 1. Stable diffuse interstitial infiltrate with suspected right infrahilar atelectasis or scarring. 2. Stable prominent cardiac silhouette. LE US IMPRESSION: 1. No evidence of deep venous thrombosis. PE: GEN: NAD - ate all of regular breakfast HEENT: Atraumatic, PERRL LUNGS: CTAB HEART: RR ABD: NABS, S/ND/NT EXTREMITY/SKIN: erythema, edema BLE w/ bandages NEURO/PSYCH: A & O 3 A/P: A/P: BLE edema - CHF, CKD Chronic anemia - on iron - s/p endotherapy on EGD 11/2020, on H2 severiano CRC screen - none CAD, PVD, A Fib - on Eliquis and ASA FH pancreatic cancer -- Continue acid-pad machine feeder of some kind, transfuse as needed. Has been unable to pursue outpt colonoscopy yet. Difficult situation w/ use of Eliquis and ASA. Will review any additional inpt GI recs w/ Dr. Humphreys. FABBY ROBERTSON December 21, 2020 10:05
--- NOTE | 2020-12-21 10:05 | PDOC2 ---
CONSULT Date of Consult Date of Consult DATE: 12/21/20 TIME: 09:59 Reason for Consult Reason for Consult: CKD History of Present Illness Reason for Visit: Pt is a 75 year old CM who was sent here from [facility] for evaluation due to bilateral lower extremity swelling, worsening renal function. He has history of CHF, history of chronic renal failure. He denies any chest pain, denies any cough or fever. Patient does have trouble breathing with exertion. Patient says they told him to come here to be admitted so they can do colonoscopy because he has been anemic as well. Patient denies any rectal bleeding. Upon chart review patient was seen in November 04 09/12/2020 for GI bleed.. Eliquis was actually restarted on 11/09/2020. And also had a pacemaker placed on 11/09/2020 and tolerated procedure well. Patient follow-up with Dr. Chau with nephrology and his baseline creatinine appears to be between 1.8-2.0. During his recent hospitaliztion he developed REBECCA with Cr down to 2.3-2.5 at de . 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 He denies any urinary complaints Past Medical History Cardiovascular: AFIB, CAD, CHF, HTN, Hyperlipidemia CENTRAL NERVOUS SYSTEM: Periperal neuropathy GI: GERD, GI bleed Heme/Onc: Anemia NOS Psych: Anxiety, Depression Rheumatologic: Gout Renal/: Chronic renal insuff Endocrine: Diabetes Past Surgical History Past Surgical History: Pacemaker Family History Family History: Heart Disease, Hypertension Social History ALCOHOL: none Drugs: None Lives: Retirement Current Problem List Problem List Problems Medical Problems: (1) Anemia Status: Acute (2) CHF exacerbation Status: Acute Current Medications Current Medications Current Medications Apixaban (Eliquis) 2.5 mg BID PO Last administered on 12/21/20at 09:00; Start 12/20/20 at 22:00 Atorvastatin Calcium (Lipitor) 40 mg HS PO Last administered on 12/20/20at 23:03; Start 12/20/20 at 22:00 Buspirone HCl (Buspar) 10 mg PRN DAILY PRN PO ANXIETY / AGITATION; Start 12/20/20 at 21:45 Famotidine (Pepcid) 20 mg DAILY PO Last administered on 12/21/20at 08:53; Start 12/21/20 at 09:00 Hydralazine HCl (Apresoline) 25 mg TID PO Last administered on 12/21/20at 08:53; Start 12/21/20 at 09:00 Insulin Glargine (Lantus Syringe) 15 unit QHS SQ Last administered on 12/20/20at 23:08; Start 12/20/20 at 22:00 Metoprolol Succinate (Toprol Xl) 25 mg DAILY PO Last administered on 12/21/20at 08:53; Start 12/21/20 at 09:00 Nystatin (Nystop) 1 daniela BID TP Last administered on 12/20/20at 23:09; Start 12/20/20 at 22:00 Sennosides (Senna) 8.6 mg PRN BID PRN PO CONSTIPATION 1ST CHOICE; Start 12/20/20 at 21:45; Stop 12/20/20 at 21:52; Status DC Sertraline HCl (Zoloft) 50 mg DAILY PO Last administered on 12/21/20at 08:52; Start 12/21/20 at 09:00 Ascorbic Acid (Vitamin C) 500 mg BID PO Last administered on 12/21/20at 08:53; Start 12/20/20 at 22:00 Furosemide (Lasix) 40 mg 1X ONCE IVP Last administered on 12/20/20at 23:03; Start 12/20/20 at 21:45; Stop 12/20/20 at 21:46; Status DC Sennosides (Senna) 17.2 mg PRN BID PRN PO CONSTIPATION; Start 12/20/20 at 21:45 Docusate Sodium (Colace) 100 mg PRN DAILY PRN PO HARD STOOLS; Start 12/20/20 at 21:45 Ondansetron HCl (Zofran) 4 mg PRN Q6HRS PRN IVP NAUSEA/VOMITING; Start 12/20/20 at 21:45 Insulin Human Lispro (HumaLOG) 0-7 UNITS TIDWMEALS SQ ; Start 12/21/20 at 08:00 Dextrose (Dextrose 50%-Water Syringe) 12.5 gm PRN Q15MIN PRN IV SEE COMMENTS; Start 12/20/20 at 21:45 Acetaminophen (Tylenol) 650 mg PRN Q4HRS PRN PO TEMP OVER 100.4F OR MILD PAIN Last administered on 12/20/20at 23:02; Start 12/20/20 at 21:45 Active Scripts Active Lantus (Insulin Glargine,Hum.rec.anlog) 100 Unit/1 Ml Vial 15 Unit SQ QHS 30 Days Famotidine 20 Mg Tablet 20 Mg PO DAILY 30 Days Acetaminophen Supp (Acetaminophen) 650 Mg Supp.rect 650 Mg NC PRN Q4HRS PRN 30 Days Hydralazine Hcl 25 Mg Tablet 25 Mg PO TID 30 Days Reported Tylenol (Acetaminophen) 325 Mg Tablet 1-2 Tab PO QID Vitamin C (Ascorbic Acid) 500 Mg Capsule 500 Mg PO BID Senokot (Sennosides) 8.6 Mg Tablet 1 Tab PO BID PRN 20 Days Potassium Chloride 20 Meq Tablet.er 20 Meq PO DAILY Nystatin 15 Gm Powder 1 Daniela TP BID 7 Days apply to affected area(s) Lasix (Furosemide) 40 Mg Tablet 40 Mg PO BIDBFRMEAL Zoloft (Sertraline Hcl) 50 Mg Tablet 50 Mg PO DAILY Metoprolol Succinate ( Xl ) (Metoprolol Succinate) 25 Mg Tab.er.24h 25 Mg PO GRAHAM LY Eliquis (Apixaban) 5 Mg Tablet 2.5 Mg PO BID Slow Release Iron (Ferrous Sulfate) 160 Mg Tablet.er 160 Mg PO DAILY Buspirone Hcl 10 Mg Tablet 1 Tab PO PRN DAILY PRN Atorvastatin Calcium 40 Mg Tablet 40 Mg PO HS Allergies Allergies: Coded Allergies: Sulfa (Sulfonamide Antibiotics) (Verified Adverse Reaction, Intermediate, Nausea and Vomiting, 12/21/20) ROS Review of System As per HP, rest of the ROS is negative Physical Exam Physical Exam General: NAD , propped up in bed HEENT: Atraumatic, OM moist Neck supple Lungs: Clear to auscultation Heart: Bradycardic, ESM aortic) Abdomen: Soft, NT Extremities: Bilat LE edema 2-3 + a Neuro: grossly normal Psych/Mental Status: Mood NL lowery + , No cva or SP tenderness Skin No rash Vital Signs Vital Signs Date Time Temp Pulse Resp B/P (MAP) Pulse Ox O2 Delivery O2 Flow Rate FiO2 12/21/20 08:53 61 134/57 12/21/20 08:00 Room Air 12/21/20 07:00 97.7 16 94 97.7 Assessment & Plan REBECCA vs baseline CKD - Cardiorenal , Non Oliguric,Supportive care, IV lasix, Strict I/O, avoid nephrotoxins CKD stage 3B/ 4 - Follows with Dr. Roca, baseline Cr per [facility] records prior to previous admission 1.8-2.0 but 2.3 to 2.5 since REBECCA recently in November 2020 . Please Obtain recent Renal Labs from Dr. Roca's office at [facility] Acute blood loss anemia secondary to GIB. s/p cauterization of bleeding antral ulcer by GI team and PRBC in November . Hgb this admission low as well - d efer to GI Renal calculus - RK- Possible intrarenal stones. LK Possible intrarenal stones to include a 13 mm focus of increased echogenicity at the upper pole.No e/o obstruction reported . Pt denies any past history Worsening LE edema- Bilat LE and anasarca- Wt up compared to his recent admission . Recommend Lasix gtt , dw Cardiology, Monitor closely ,daily standing weight(if pt able to stand ) , Acute on chronic diastolic CHF; Echo 07/25 with preserved LV systolic function Anemia with h/o GIB with cauterization of bleeding antral ulcer CAD; s/p PCI/RHEA to LAD in 2018. clinically stable, CP free. 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 Permanent AFIB; rate controlled on BB SSS; s/p PPM ([employer]) Hypertension; controlled Valvular disease; mild to moderate aortic stenosis Labs Labs Laboratory Tests Test 12/20/20 13:39 12/20/20 21:24 12/21/20 04:32 12/21/20 08:11 White Blood Count 8.6 x10^3/uL (4.0-11.0) 6.7 x10^3/uL (4.0-11.0) Red Blood Count 2.80 x10^6/uL (4.30-5.70) 2.35 x10^6/uL (4.30-5.70) Hemoglobin 8.2 g/dL (13.0-17.5) 6.9 g/dL (13.0-17.5) Hematocrit 25.6 % (39.0-53.0) 21.5 % (39.0-53.0) Mean Corpuscular Volume 92 fL (79-100) 92 fL (79-100) Mean Corpuscular Hemoglobin 29 pg (25-35) 29 pg (25-35) Mean Corpuscular Hemoglobin Concent 32 g/dL (31-37) 32 g/dL (31-37) Red Cell Distribution Width 19.5 % (11.5-14.5) 19.3 % (11.5-14.5) Platelet Count 202 x10^3/uL (140-400) 169 x10^3/uL (140-400) Neutrophils (%) (Auto) 70 % (31-73) 53 % (31-73) Lymphocytes (%) (Auto) 16 % (24-48) 26 % (24-48) Monocytes (%) (Auto) 9 % (0-9) 10 % (0-9) Eosinophils (%) (Auto) 4 % (0-3) 11 % (0-3) Basophils (%) (Auto) 1 % (0-3) 1 % (0-3) Neutrophils # (Auto) 6.0 x10^3/uL (1.8-7.7) 3.5 x10^3/uL (1.8-7.7) Lymphocytes # (Auto) 1.4 x10^3/uL (1.0-4.8) 1.7 x10^3/uL (1.0-4.8) Monocytes # (Auto) 0.8 x10^3/uL (0.0-1.1) 0.7 x10^3/uL (0.0-1.1) Eosinophils # (Auto) 0.3 x10^3/uL (0.0-0.7) 0.7 x10^3/uL (0.0-0.7) Basophils # (Auto) 0.1 x10^3/uL (0.0-0.2) 0.1 x10^3/uL (0.0-0.2) Sodium Level 140 mmol/L (136-145) 143 mmol/L (136-145) Potassium Level 4.1 mmol/L (3.5-5.1) 3.5 mmol/L (3.5-5.1) Chloride Level 106 mmol/L (98-107) 109 mmol/L (98-107) Carbon Dioxide Level 22 mmol/L (21-32) 24 mmol/L (21-32) Anion Gap 12 (6-14) 10 (6-14) Blood Urea Nitrogen 108 mg/dL (8-26) 105 mg/dL (8-26) Creatinine 2.6 mg/dL (0.7-1.3) 2.5 mg/dL (0.7-1.3) Estimated GFR (Cockcroft-Gault) 24.3 25.4 BUN/Creatinine Ratio 42 (6-20) Glucose Level 155 mg/dL (70-99) 73 mg/dL (70-99) Calcium Level 8.2 mg/dL (8.5-10.1) 7.8 mg/dL (8.5-10.1) Magnesium Level 2.5 mg/dL (1.8-2.4) 2.3 mg/dL (1.8-2.4) Total Bilirubin 0.6 mg/dL (0.2-1.0) Aspartate Amino Transf (AST/SGOT) 28 U/L (15-37) Alanine Aminotransferase (ALT/SGPT) 13 U/L (16-63) Alkaline Phosphatase 111 U/L (46-116) Troponin I Quantitative 0.018 ng/mL (0.000-0.055) PY-Oyp-T-Type Natriuretic Peptide 51629 pg/mL (0-124) Total Protein 6.0 g/dL (6.4-8.2) Albumin 2.5 g/dL (3.4-5.0) Albumin/Globulin Ratio 0.7 (1.0-1.7) Glucose (Fingerstick) 111 mg/dL (70-99) 66 mg/dL (70-99) Phosphorus Level 4.1 mg/dL (2.6-4.7) Laboratory Tests Test 12/20/20 13:39 12/20/20 21:24 12/21/20 04:32 12/21/20 08:11 White Blood Count 8.6 x10^3/uL (4.0-11.0) 6.7 x10^3/uL (4.0-11.0) Red Blood Count 2.80 x10^6/uL (4.30-5.70) 2.35 x10^6/uL (4.30-5.70) Hemoglobin 8.2 g/dL (13.0-17.5) 6.9 g/dL (13.0-17.5) Hematocrit 25.6 % (39.0-53.0) 21.5 % (39.0-53.0) Mean Corpuscular Volume 92 fL (79-100) 92 fL (79-100) Mean Corpuscular Hemoglobin 29 pg (25-35) 29 pg (25-35) Mean Corpuscular Hemoglobin Concent 32 g/dL (31-37) 32 g/dL (31-37) Red Cell Distribution Width 19.5 % (11.5-14.5) 19.3 % (11.5-14.5) Platelet Count 202 x10^3/uL (140-400) 169 x10^3/uL (140-400) Neutrophils (%) (Auto) 70 % (31-73) 53 % (31-73) Lymphocytes (%) (Auto) 16 % (24-48) 26 % (24-48) Monocytes (%) (Auto) 9 % (0-9) 10 % (0-9) Eosinophils (%) (Auto) 4 % (0-3) 11 % (0-3) Basophils (%) (Auto) 1 % (0-3) 1 % (0-3) Neutrophils # (Auto) 6.0 x10^3/uL (1.8-7.7) 3.5 x10^3/uL (1.8-7.7) Lymphocytes # (Auto) 1.4 x10^3/uL (1.0-4.8) 1.7 x10^3/uL (1.0-4.8) Monocytes # (Auto) 0.8 x10^3/uL (0.0-1.1) 0.7 x10^3/uL (0.0-1.1) Eosinophils # (Auto) 0.3 x10^3/uL (0.0-0.7) 0.7 x10^3/uL (0.0-0.7) Basophils # (Auto) 0.1 x10^3/uL (0.0-0.2) 0.1 x10^3/uL (0.0-0.2) Sodium Level 140 mmol/L (136-145) 143 mmol/L (136-145) Potassium Level 4.1 mmol/L (3.5-5.1) 3.5 mmol/L (3.5-5.1) Chloride Level 106 mmol/L (98-107) 109 mmol/L (98-107) Carbon Dioxide Level 22 mmol/L (21-32) 24 mmol/L (21-32) Anion Gap 12 (6-14) 10 (6-14) Blood Urea Nitrogen 108 mg/dL (8-26) 105 mg/dL (8-26) Creatinine 2.6 mg/dL (0.7-1.3) 2.5 mg/dL (0.7-1.3) Estimated GFR (Cockcroft-Gault) 24.3 25.4 BUN/Creatinine Ratio 42 (6-20) Glucose Level 155 mg/dL (70-99) 73 mg/dL (70-99) Calcium Level 8.2 mg/dL (8.5-10.1) 7.8 mg/dL (8.5-10.1) Magnesium Level 2.5 mg/dL (1.8-2.4) 2.3 mg/dL (1.8-2.4) Total Bilirubin 0.6 mg/dL (0.2-1.0) Aspartate Amino Transf (AST/SGOT) 28 U/L (15-37) Alanine Aminotransferase (ALT/SGPT) 13 U/L (16-63) Alkaline Phosphatase 111 U/L (46-116) Troponin I Quantitative 0.018 ng/mL (0.000-0.055) VO-Nuy-X-Type Natriuretic Peptide 15077 pg/mL (0-124) Total Protein 6.0 g/dL (6.4-8.2) Albumin 2.5 g/dL (3.4-5.0) Albumin/Globulin Ratio 0.7 (1.0-1.7) Glucose (Fingerstick) 111 mg/dL (70-99) 66 mg/dL (70-99) Phosphorus Level 4.1 mg/dL (2.6-4.7) Review All relevant outside records, renal labs, imaging studies, telemetry/EKG's were reviewed. Images Images IMPRESSION: 1. Stable diffuse interstitial infiltrate with suspected right infrahilar atelectasis or scarring. 2. Stable prominent cardiac silhouette. BEATRIZ IBARRA MD December 21, 2020 10:05
--- NOTE | 2020-12-21 11:55 | PDOC ---
[employer] PROGRESS NOTE Date of Service DOS: DATE: 12/21/20 TIME: 11:50 Chief Complaint Chief Complaint Acute volume overload Acute on chronic CHF exacerbation History of chronic kidney disease Normocytic anemia, possible chronic GI blood loss with EGD showing antral gastric ulcer Morbid obesity, OHS, suspect ROBB Severe protein malnutrition History of diabetes mellitus type 2 History of peripheral vascular disease History of atrial fibrillation History of bradycardia status post pacemaker placement Hypertension Dyslipidemia Admit to medicine for further management IV Lasix drip started Strict I's and O's Nephrology consult Cardiology consult Trend hemoglobin if less than 7 then transfuse 1 unit Eliquis for DVT prophylaxis Pepcid GI prophylaxis ADA diet Full code Discussed with RN and SW Disposition inpatient management as above Surrogate decision maker is Phuong Mathis History of Present Illness History of Present Illness 12/21/2020 No acute events overnight. Patient has adequate urine output and feels less fluid overload. Documented -580 cc. Patient's chart, labs, images were reviewed and discussed with RN 75 year old male who was sent here from [facility] for evaluation due to bilateral lower extremity swelling, worsening renal function. He has history of CHF, history of chronic renal failure. Patient was sent here by the PERINATAL BREASTFEEDING ASSISTANT there today for evaluation of bilateral lower extremity swelling and increased renal function test. Patient denies any chest pain, denies any cough or fever. Patient does have trouble breathing with exertion. Patient says they told him to come here to be admitted so they can do colonoscopy because he has been anemic as well. Patient denies any rectal bleeding. His weight today is 147 kg Upon chart review patient was seen in November 04 09/12/2020 for GI bleed.. Eliquis was actually restarted on 11/09/2020. And also had a pacemaker placed on 11/09/2020 and tolerated procedure well. Patient also does follow-up with Dr. Chau with nephrology and his baseline creatinine appears to be between 1.8-2.0. Vitals/I&O Vitals/I&O: Vital Signs Date Time Temp Pulse Resp B/P (MAP) Pulse Ox O2 Delivery O2 Flow Rate FiO2 12/21/20 10:56 97.6 69 16 113/59 (77) 92 Room Air 97.6 I & O 12/20/20 12/20/20 12/21/20 15:00 23:00 07:00 Intake Total 200 ml Output Total 550 ml Balance -350 ml Physical Exam General: Alert, Oriented X3, Cooperative Heart: No murmurs Lungs: Clear, Other Abdomen: No tenderness Extremities: Other (+2 pitting edema bilateral lower extremities) Labs Labs: Laboratory Tests Test 12/20/20 13:39 12/20/20 21:24 12/21/20 04:32 12/21/20 08:11 White Blood Count 8.6 x10^3/uL (4.0-11.0) 6.7 x10^3/uL (4.0-11.0) Red Blood Count 2.80 x10^6/uL (4.30-5.70) 2.35 x10^6/uL (4.30-5.70) Hemoglobin 8.2 g/dL (13.0-17.5) 6.9 g/dL (13.0-17.5) Hematocrit 25.6 % (39.0-53.0) 21.5 % (39.0-53.0) Mean Corpuscular Volume 92 fL (79-100) 92 fL (79-100) Mean Corpuscular Hemoglobin 29 pg (25-35) 29 pg (25-35) Mean Corpuscular Hemoglobin Concent 32 g/dL (31-37) 32 g/dL (31-37) Red Cell Distribution Width 19.5 % (11.5-14.5) 19.3 % (11.5-14.5) Platelet Count 202 x10^3/uL (140-400) 169 x10^3/uL (140-400) Neutrophils (%) (Auto) 70 % (31-73) 53 % (31-73) Lymphocytes (%) (Auto) 16 % (24-48) 26 % (24-48) Monocytes (%) (Auto) 9 % (0-9) 10 % (0-9) Eosinophils (%) (Auto) 4 % (0-3) 11 % (0-3) Basophils (%) (Auto) 1 % (0-3) 1 % (0-3) Neutrophils # (Auto) 6.0 x10^3/uL (1.8-7.7) 3.5 x10^3/uL (1.8-7.7) Lymphocytes # (Auto) 1.4 x10^3/uL (1.0-4.8) 1.7 x10^3/uL (1.0-4.8) Monocytes # (Auto) 0.8 x10^3/uL (0.0-1.1) 0.7 x10^3/uL (0.0-1.1) Eosinophils # (Auto) 0.3 x10^3/uL (0.0-0.7) 0.7 x10^3/uL (0.0-0.7) Basophils # (Auto) 0.1 x10^3/uL (0.0-0.2) 0.1 x10^3/uL (0.0-0.2) Sodium Level 140 mmol/L (136-145) 143 mmol/L (136-145) Potassium Level 4.1 mmol/L (3.5-5.1) 3.5 mmol/L (3.5-5.1) Chloride Level 106 mmol/L (98-107) 109 mmol/L (98-107) Carbon Dioxide Level 22 mmol/L (21-32) 24 mmol/L (21-32) Anion Gap 12 (6-14) 10 (6-14) Blood Urea Nitrogen 108 mg/dL (8-26) 105 mg/dL (8-26) Creatinine 2.6 mg/dL (0.7-1.3) 2.5 mg/dL (0.7-1.3) Estimated GFR (Cockcroft-Gault) 24.3 25.4 BUN/Creatinine Ratio 42 (6-20) Glucose Level 155 mg/dL (70-99) 73 mg/dL (70-99) Calcium Level 8.2 mg/dL (8.5-10.1) 7.8 mg/dL (8.5-10.1) Magnesium Level 2.5 mg/dL (1.8-2.4) 2.3 mg/dL (1.8-2.4) Total Bilirubin 0.6 mg/dL (0.2-1.0) Aspartate Amino Transf (AST/SGOT) 28 U/L (15-37) Alanine Aminotransferase (ALT/SGPT) 13 U/L (16-63) Alkaline Phosphatase 111 U/L (46-116) Troponin I Quantitative 0.018 ng/mL (0.000-0.055) XQ-Upl-E-Type Natriuretic Peptide 89075 pg/mL (0-124) Total Protein 6.0 g/dL (6.4-8.2) Albumin 2.5 g/dL (3.4-5.0) Albumin/Globulin Ratio 0.7 (1.0-1.7) Glucose (Fingerstick) 111 mg/dL (70-99) 66 mg/dL (70-99) Phosphorus Level 4.1 mg/dL (2.6-4.7) Test 12/21/20 11:28 Glucose (Fingerstick) 129 mg/dL (70-99) Assessment and Plan Assessmemt and Plan Problems Medical Problems: (1) Anemia Status: Acute (2) CHF exacerbation Status: Acute Comment Review of Relevant I have reviewed the following items mara (where applicable) has been applied. Medications: Current Medications Medications (Trade) Dose Ordered Sig/Redd Route PRN Reason Start Time Stop Time Status Last Admin Dose Admin Apixaban (Eliquis) 2.5 mg BID PO 12/20/20 22:00 12/21/20 09:00 Atorvastatin Calcium (Lipitor) 40 mg HS PO 12/20/20 22:00 12/20/20 23:03 Famotidine (Pepcid) 20 mg DAILY PO 12/21/20 09:00 12/21/20 08:53 Hydralazine HCl (Apresoline) 25 mg TID PO 12/21/20 09:00 12/21/20 08:53 Insulin Glargine (Lantus Syringe) 15 unit QHS SQ 12/20/20 22:00 12/20/20 23:08 Metoprolol Succinate (Toprol Xl) 25 mg DAILY PO 12/21/20 09:00 12/21/20 08:53 Nystatin (Nystop) 1 luna BID TP 12/20/20 22:00 12/20/20 23:09 Sertraline HCl (Zoloft) 50 mg DAILY PO 12/21/20 09:00 12/21/20 08:52 Ascorbic Acid (Vitamin C) 500 mg BID PO 12/20/20 22:00 12/21/20 08:53 Furosemide (Lasix) 40 mg 1X ONCE IVP 12/20/20 21:45 12/20/20 21:46 DC 12/20/20 23:03 Acetaminophen (Tylenol) 650 mg PRN Q4HRS PRN PO TEMP OVER 100.4F OR MILD PAIN 12/20/20 21:45 12/20/20 23:02 Justifications for Admission Other Justification CHF exacerbation KANNAN NELSON MD December 21, 2020 11:55
[2020-12-21] MEDS: FUROSEMIDE INJ 100 MG in IV NORMAL SALINE 100ML 100 ML IV PRN ×2 (12:00→21:11)
[2020-12-21] MEDS ORDERED: POTASSIUM CHLORIDE 20 MEQ TABLET.ER. PO ONE (12:15)
--- NOTE | 2020-12-21 13:24 | NUR ---
SS following for discharge planning. SS reviewed pt chart and discussed with pt RN. Pt is from [facility] rehabilitation, ; fax [phone]. Pt is currently on room air. Pt on Lasix drip and diuresing today. Pt will need PT/OT evaluations and rapid COVID19 test per [facility] prior to returning to facility. SS will continue to follow for discharge planning.
[2020-12-21] MEDS: NYSTATIN TOPICAL POWDER 15GM BOTTLE. TP SCH ×2 (14:04→21:00)
--- NOTE | 2020-12-21 15:28 | NUR ---
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 Pt known to wound care team from outpatient clinic. All wound cleansed and measured. Left buttock pictured and measured. Treatment Recommendations/Plan: Cleanse all wounds with saline or wound wash and pat dry. Left buttock and right lower leg: cover with contact layer and foam, change every 2-3 days. Left heel, right plantar heel and right posterior heel: paint with betadine and cover with foam, change every 2-3 days. Left 2nd/3rd toe: paint with betadine daily. Right great toe: cover with Iodoflex (remove white mesh prior to applying) and cover with telfa or bandaid. Education provided: Pt educated on PU healing and prevention Offloading surface/device: P500, heel medix boots, purple wedge, pillows Discharge Recommendations for dressings: same as above
--- NOTE | 2020-12-21 16:18 | PDOC2 ---
Chief Complaint: Chief Complaint: Left heel DFU with underlying peripheral artery disease Vital Signs: Vital Signs: Vital Signs Date Time Temp Pulse Resp B/P (MAP) Pulse Ox O2 Delivery O2 Flow Rate FiO2 12/20/20 12:37 98.3 61 14 161/32 (75) 98 Room Air 98.3 Vital Signs Date Time Temp Pulse Resp B/P (MAP) Pulse Ox O2 Delivery O2 Flow Rate FiO2 12/21/20 15:29 98.0 62 18 143/67 98.0 12/21/20 15:00 93 Room Air Allergies: Allergies: Allergies Coded Allergies Type Severity Reaction Last Updated Verified Sulfa (Sulfonamide Antibiotics) Adverse Reaction Intermediate Nausea and Vomiting 12/21/20 Yes Medications: Home Meds Active Scripts Insulin Glargine,Hum.rec.anlog (LANTUS) 100 Unit/1 Ml Vial, 15 UNIT SQ QHS for DIABETES for 30 Days, #2 EACH Prov:SURY PATTERSON MD 11/10/20 Famotidine (FAMOTIDINE) 20 Mg Tablet, 20 MG PO DAILY for GERD for 30 Days, #30 TAB Prov:SURY PATTERSON MD 11/10/20 Acetaminophen (ACETAMINOPHEN SUPP) 650 Mg Supp.rect, 650 MG MT PRN Q4HRS PRN for TEMP OVER 100.4F OR MILD PAIN for 30 Days, #20 SUPP.RECT Prov:SURY PATTERSON MD 11/10/20 Hydralazine Hcl (HYDRALAZINE HCL) 25 Mg Tablet, 25 MG PO TID for BLOOD PRESSURE for 30 Days, #90 TAB Prov:SURY PATTERSON MD 11/10/20 Reported Medications Acetaminophen (TYLENOL) 325 Mg Tablet, 1-2 TAB PO QID for pain, #60 TAB 2 Refills 12/20/20 Ascorbic Acid (Vitamin C) 500 Mg Capsule, 500 MG PO BID for supplement, CAP 12/20/20 Sennosides (SENOKOT) 8.6 Mg Tablet, 1 TAB PO BID PRN for CONSTIPATION for 20 Days, #40 TAB 0 Refills 12/20/20 Potassium Chloride (Potassium Chloride) 20 Meq Tablet.er, 20 MEQ PO DAILY for supplement, TAB.SR 12/20/20 Nystatin (NYSTATIN) 15 Gm Powder, 1 CLARKE TP BID for yeast for 7 Days, #1 BOTTLE 0 Refills apply to affected area(s) 12/20/20 Furosemide (LASIX) 40 Mg Tablet, 40 MG PO BIDBFRMEAL for diuretic, TAB 12/20/20 Sertraline Hcl (ZOLOFT) 50 Mg Tablet, 50 MG PO DAILY for ANTI-DEPRESSANT, TAB 0 Refills 12/20/20 Metoprolol Succinate (METOPROLOL SUCCINATE ( XL )) 25 Mg Tab.er.24h, 25 MG PO DAILY for htn, #30 TAB 0 Refills 12/20/20 Apixaban (ELIQUIS) 5 Mg Tablet, 2.5 MG PO BID for afib, TAB 11/04/20 Ferrous Sulfate (SLOW RELEASE IRON) 160 Mg Tablet.er, 160 MG PO DAILY for supplement/anemia, TAB.SR 11/04/20 Buspirone Hcl (BUSPIRONE HCL) 10 Mg Tablet, 1 TAB PO PRN DAILY PRN for ANXIETY / AGITATION, #60 TAB 1 Refill 04/06/19 Atorvastatin Calcium (ATORVASTATIN CALCIUM) 40 Mg Tablet, 40 MG PO HS 11/29/13 PCP: PCP: Dr. Espinal Date of Onset Patient well-known by this provider for previous DFU's and peripheral artery disease. Patient recently discharged from [facility] and admitted to [facility] for snf. Patient developed significant lower extremity edema with associated bullaehs. Secondary to edema fraction and pressure was caused with custom diabetic footwear. Left heel DFU noted week of 12/13. PMH CAD w/ stent, PVD, A Fib, CHF, DM, HTN, HLD, anxiety, neuropathy, MRSA, CKD cardiac cath, pacemaker PSH Prior to hospitalization, patient lived at home and was independent of ADLs. Patient has a sister who checks on him frequently and is active and medical decision making. Patient denies history of tobacco use, alcohol use or illicit drug use. Review of Systems: Patient states that he is feeling better today. Patient denies shortness of breath. Patient denies cough or chest pain. Patient states that he has been eating and drinking well without nausea, vomiting or diarrhea. Patient states that he has been sleeping well, denies headaches or mood swings. Patient denies painful symptoms of the affected area, stating that he has neuropathy bilaterally. Physical Exam Patient awake and alert 75-year-old male in no apparent distress. Vital signs are stable. Patient is afebrile. Patient is pleasant in conversation and is good historian. Respirations are even and unlabored. Patient is on room air not requiring supplemental oxygen. Abdomen is soft, nondistended, nontender and obese. Skin is warm, dry and pink. The patient has multiple areas of intact eschar to bilateral toes. Edges are attached on these and there is no active drainage. The left medial weir presents with a popped bullae. Surrounding tissue with erythema. Wound bed 100% pink smooth. The left heel presents with a 4.8x4.4cm area of intact eschar. Edges are beginning to separate at edges. Minimal serosanguineous drainage noted on previous dressing removed. Surrounding tissue with mild maceration. No erythema or edema present. No odor following cleansing. A/P 1) DM and PAD with diabetic foot ulcer to the right second toe, left great toe, left 3rd toe, and left heel - Angiogram 07/08/19: Conclusion 1. Bilateral below the knee peripheral artery stenoses as described above 2. Successful orbital atherectomy/UPKEEP MECHANIC to right posterior tibial arteries for nonhealing wound on the right heel. Consider UPKEEP MECHANIC to left posterior tibial artery if left heel wound recurs - Consult vascular surgery -To eschar to toes, Skin-Prep twice daily and leave open to air. - To DFU on left heel, Cleanse and pat dry. Apply Betadine and cover with foam adhesive. Change every 2 days or prn if dressing loose or saturated 2) lymphedema with open wounds to the left lower extremity -To open wounds on legs, cleanse and pat dry cover with nonadhesive foam and secure with Kerlix or Tubigrip's. JOSE MANUEL RAMAN CONFIDENTIAL SECRETARY December 21, 2020 16:18
[2020-12-21] MEDS: INSULIN GLARGINE SYRINGE. SQ SCH (21:00)
[2020-12-21] MEDS: SENNOSIDES 8.6 MG TABLET PO PRN (21:11)
[2020-12-21] MEDS: ATORVASTATIN CALCIUM 40 MG TABLET. PO SCH (21:12)
[2020-12-22 02:43] VITALS: BP 120/58
[2020-12-22 04:28] LABS: CALCIUM 7.9 mg/dL (8.5-10.1); CREATININE 2.4 mg/dL (0.7-1.3); GFR 26.7; POTASSIUM 3.2 mmol/L (3.5-5.1)
[2020-12-22 07:00] VITALS: BP 126/64
--- NOTE | 2020-12-22 08:21 | PDOC ---
YUDY SCOTT SLICING MACHINE FEEDER 12/22/20 0821: CARDIO Progress Notes Date and Time Date of Service 12/22/20 Time of Evaluation 1210 Subjective Subjective: No Chest Pain, No shortness of breath, No Palpitations, Other (LE edema persists) Vitals Vitals Vital Signs Date Time Temp Pulse Resp B/P (MAP) Pulse Ox O2 Delivery O2 Flow Rate FiO2 12/22/20 07:00 97.7 61 20 126/64 (84) 92 Room Air 97.7 Weight Weight [ ] Input and Output Intake and Output Intake and Output 12/22/20 06:59 Intake Total 1490 ml Output Total 1400 ml Balance 90 ml Intake Oral 1490 ml Output Urine Total 1400 ml Laboratory Labs Laboratory Tests Test 12/21/20 11:28 12/21/20 17:21 12/21/20 21:05 12/22/20 03:35 Glucose (Fingerstick) 129 mg/dL (70-99) 135 mg/dL (70-99) 137 mg/dL (70-99) Sodium Level 145 mmol/L (136-145) Potassium Level 3.2 mmol/L (3.5-5.1) Chloride Level 110 mmol/L (98-107) Carbon Dioxide Level 24 mmol/L (21-32) Anion Gap 11 (6-14) Blood Urea Nitrogen 106 mg/dL (8-26) Creatinine 2.4 mg/dL (0.7-1.3) Estimated GFR (Cockcroft-Gault) 26.7 Glucose Level 91 mg/dL (70-99) Calcium Level 7.9 mg/dL (8.5-10.1) Test 12/22/20 07:16 Glucose (Fingerstick) 84 mg/dL (70-99) Physical Exam HEENT: Neck Supple W Full Motion Chest: Symmetric LUNGS: Other (diminished ) Heart: irregularly irregular (AFIB) Abdomen: Soft N/T, Other (obese ) Extremities: Other (ansarca, multiple toe and heel wounds with drsg intact ) Neurology: alert, oriented, follow commands Assessment Assessment 1. Worsening LE edema, anasarca 2. Acute on chronic diastolic CHF; Echo 07/25 with preserved LV systolic function. on Lasix gtt. No significant OUP 3. Anemia with h/o GIB with cauterization of bleeding antral ulcer.s/p transfus ion. no obvious bleeding. 4. CAD; s/p PCI/RHEA to LAD in 2019. clinically stable, CP free. 5. PAD s/p past orbital atherectomy/LEGAL ADMINISTRATIVE SECRETARY to right posterior tibial artery. LE wounds present. Duplex with monophasic waveforms throughout LLE. Vascular following. MRI pending 6. Permanent AFIB; rate controlled on BB 7. SSS; s/p PPM (Medtronic). intermittent v-pacing. recent device check with normal function 8. Hypertension; controlled 9. Hyperlipidemia; statin 10. Diabetes, II; as per IM 11. REBECCA on CKD. 12. Valvular disease; mild to moderate aortic stenosis 13. Protein calorie malnutrition Recommendations Continue Lasix gtt Monitor UOP Consider addition of metolazone if output not increased Secondary prevention Metoprolol for rate control OAC on hold with anemia, recent GIB Monitor H and H Supportive care Justicifation of Admission Dx: Justifications for Admission: Justification of Admission Dx: Yes DICK LAZO MD 12/22/201953: CARDIO Progress Notes Assessment Assessment Patient seen and examined. Agree with LOCATE TECHNICIAN's assessment and plan. Continue Lasix drip for acute on chronic diastolic heart failure. Nephrology following Permanent atrial fibrillation rate controlled. Hold Eliquis secondary to anemia and his known history of peptic ulcer disease. CAD status clinically stable. SSS s/p PPM with recent device check showing normal function. Discussed options for wound left foot with Vascular surgery team - appreciate their input Plan for MRI of foot and left leg arterial duplex scan and consider aortogram and possible LEGAL ADMINISTRATIVE SECRETARY to improve blood supply to the wound angiosome YUDY SCOTT APRN December 22, 2020 08:21 DICK LAZO MD December 22, 2020 19:54
[2020-12-22] MEDS ORDERED: POTASSIUM CHLORIDE 20 MEQ TABLET.ER. PO ONE (08:30)
[2020-12-22] MEDS: ASCORBIC ACID 500 MG TABLET PO SCH ×2 (08:35→21:51)
[2020-12-22] MEDS: FAMOTIDINE 20 MG TABLET. PO SCH (08:35)
[2020-12-22] MEDS: FUROSEMIDE INJ 100 MG in IV NORMAL SALINE 100ML 100 ML IV PRN ×2 (08:35→19:49)
[2020-12-22] MEDS: SERTRALINE 50 MG TABLET. PO SCH (08:35)
[2020-12-22] MEDS: NYSTATIN TOPICAL POWDER 15GM BOTTLE. TP SCH ×2 (08:36→21:52)
[2020-12-22] MEDS: hydrALAZINE 25 MG TABLET PO SCH ×3 (08:36→21:51)
[2020-12-22] MEDS: METOPROLOL SUCC 24HR ER 25 MG TAB.ER.24H. PO SCH (08:36)
[2020-12-22] MEDS: INSULIN LISPRO 300 UNITS/3 ML VIAL. SQ SCH ×3 (08:36→17:00)
--- NOTE | 2020-12-22 09:52 | PDOC ---
Provider Note Date of Service: DATE: 12/22/20 TIME: 09:46 Provider Note Vascular Surgery Consult dictated 75 year old male with left leg peripheral artery disease with a large left heel wound with dry gangrene and 1st toe ulcer. Recommend MRI of the left foot to rule out osteomyelitis in the calcaneous bone associated with the heel wound. If no osteomyelitis can try debridement with wound vac dressing however this will be a very hard wound to heal with the large skin defect in the heel. He will need an angiogram of the left leg and likely tibial intervention to improve circulation prior to debridement. Will ask nephrology to optimize him for an angiogram, Cr 2.4. I spoke with Dr. Prince about doing a left leg angiogram. He underwent right leg intervention in 2019. Will consult ID for antibiotics. Grecia Bowens MD Justifications for Admission Other Justification CHF exacerbation GRECIA BOWENS MD December 22, 2020 09:52
--- NOTE | 2020-12-22 10:36 | NUR ---
SS following up with discharge planning. SS reviewed pt chart and discussed with pt RN. Pt is currently on room air. Pt on Lasix drip. Vascular and wound care following. Pt having MRI and ultrasound of leg. PT/OT recommended alf unit. Pt is skilled rehabilitation resident from [facility], ; fax [phone], and is able to return when medically stable. Rapid COVID19 test requested by facility. SS will continue to follow for discharge planning.
--- NOTE | 2020-12-22 10:55 | PDOC ---
DATE OF SERVICE DATE: 12/22/20 TIME: 10:52 SUBJECTIVE ROS Stable , No concerns overnight OBJECTIVE Vital Signs Vital Signs Date Time Temp Pulse Resp B/P (MAP) Pulse Ox O2 Delivery O2 Flow Rate FiO2 12/22/20 08:36 61 126/64 12/22/20 07:00 97.7 20 92 Room Air 97.7 I & 0 Intake and Output 12/22/20 07:00 Intake Total 1490 ml Output Total 1400 ml Balance 90 ml Intake Oral 1490 ml Output Urine Total 1400 ml PHYSICAL EXAM Physical Exam General: NAD , propped up in bed HEENT: Atraumatic, OM moist Neck supple Lungs: Clear to auscultation Heart: Bradycardic, ESM aortic) Abdomen: Soft, NT Extremities: Bilat LE edema 2-3 + a Neuro: grossly normal Psych/Mental Status: Mood NL lowery + , No cva or SP tenderness Skin No rash DIAGNOSIS/ASSESSMENT Assessment & Plan REBECCA vs baseline CKD - Cardiorenal , stable renal function (on lasix gtt) Non Oliguric, Supportive care Strict I/O, avoid nephrotoxins CKD stage 3B/ 4 - Follows with Dr. Roca, baseline Cr per [facility] records prior to previous admission 1.8-2.0 but 2.3 to 2.5 since REBECCA recently in November 2020 HypoKalemia - 2/2 Diuretics, Replace as indicated Hx of Acute blood loss anemia secondary to GIB. s/p cauterization of bleeding antral ulcer by GI team and PRBC in November . Hgb this admission low as well - defer to GI Renal calculus - RK- Possible intrarenal stones. LK Possible intrarenal stones to include a 13 mm focus of increased echogenicity at the upper pole.No e/o obstruction reported . Pt denies any past history Worsening LE edema- Bilat LE and anasarca- Wt up compared to his recent admission . continue Lasix gtt , dw Cardiology, Monitor closely ,daily standing weight(if pt able to stand ) , Left heel wound with dry gangrene and 1st toe ulcer- Vascular Recommend MRI and Possible Angio. Risk ok MASTER may require Dialysis - with contrast 2/2 CKD 4, requiring Lasix , may not tolerate IVF- Weigh Risk and benefit of the Contrast study to Vascular Acute on chronic diastolic CHF; Echo 07/25 with preserved LV systolic function Anemia with h/o GIB with cauterization of bleeding antral ulcer CAD; s/p PCI/RHEA to LAD in 2019. clinically stable, CP free. PAD s/p past orbital atherectomy/TEST DESK OPERATOR to right posterior tibial artery. Permanent AFIB; rate controlled on BB SSS; s/p PPM (Medtronic) Hypertension; controlled Valvular disease; mild to moderate aortic stenosis COMMENT/RELEVANT DATA Meds Current Medications Medications (Trade) Dose Ordered Sig/Redd Start Time Stop Time Status Last Admin Dose Admin Acetaminophen (Tylenol) 650 mg PRN Q4HRS PRN 12/20/20 21:45 12/20/20 23:02 650 MG Apixaban (Eliquis) 2.5 mg BID 12/20/20 22:00 12/21/20 13:36 DC 12/21/20 09:00 2.5 MG Ascorbic Acid (Vitamin C) 500 mg BID 12/20/20 22:00 12/22/20 08:35 500 MG Atorvastatin Calcium (Lipitor) 40 mg HS 12/20/20 22:00 12/21/20 21:12 40 MG Buspirone HCl (Buspar) 10 mg PRN DAILY PRN 12/20/20 21:45 Dextrose (Dextrose 50%-Water Syringe) 12.5 gm PRN Q15MIN PRN 12/20/20 21:45 Docusate Sodium (Colace) 100 mg PRN DAILY PRN 12/20/20 21:45 Famotidine (Pepcid) 20 mg DAILY 12/21/20 09:00 12/22/20 08:35 20 MG Furosemide (Lasix) 40 mg 1X ONCE 12/20/20 21:45 12/20/20 21:46 DC 12/20/20 23:03 40 MG Furosemide 100 mg/ Sodium Chloride 100 ml @ 0 mls/hr CONT PRN 12/21/20 11:30 12/22/20 08:35 10 MLS/HR Hydralazine HCl (Apresoline) 25 mg TID 12/21/20 09:00 12/22/20 08:36 25 MG Insulin Glargine (Lantus Syringe) 15 unit QHS 12/20/20 22:00 12/21/20 21:00 15 UNIT Insulin Human Lispro (HumaLOG) 0-7 UNITS TIDWMEALS 12/21/20 08:00 Metoprolol Succinate (Toprol Xl) 25 mg DAILY 12/21/20 09:00 12/22/20 08:36 25 MG Nystatin (Nystop) 1 luna BID 12/20/20 22:00 12/22/20 08:36 1 LUNA Ondansetron HCl (Zofran) 4 mg PRN Q6HRS PRN 12/20/20 21:45 Potassium Chloride (Klor-Con) 40 meq 1X ONCE 12/22/20 08:30 12/22/20 08:31 DC 12/22/20 08:39 40 MEQ Sennosides (Senna) 17.2 mg PRN BID PRN 12/20/20 21:45 12/21/20 21:11 17.2 MG Sertraline HCl (Zoloft) 50 mg DAILY 12/21/20 09:00 12/22/20 08:35 50 MG Lab Laboratory Tests Test 12/21/20 11:28 12/21/20 17:21 12/21/20 21:05 12/22/20 03:35 Glucose (Fingerstick) 129 mg/dL (70-99) 135 mg/dL (70-99) 137 mg/dL (70-99) Sodium Level 145 mmol/L (136-145) Potassium Level 3.2 mmol/L (3.5-5.1) Chloride Level 110 mmol/L (98-107) Carbon Dioxide Level 24 mmol/L (21-32) Anion Gap 11 (6-14) Blood Urea Nitrogen 106 mg/dL (8-26) Creatinine 2.4 mg/dL (0.7-1.3) Estimated GFR (Cockcroft-Gault) 26.7 Glucose Level 91 mg/dL (70-99) Calcium Level 7.9 mg/dL (8.5-10.1) Magnesium Level 2.5 mg/dL (1.8-2.4) Test 12/22/20 07:16 Glucose (Fingerstick) 84 mg/dL (70-99) Results All relevant outside records, renal labs, imaging studies, telemetry/EKG's were reviewed. Justicifation of Admission Dx: Justifications for Admission: Justification of Admission Dx: Yes BEATRIZ IBARRA MD December 22, 2020 10:54
[2020-12-22 11:00] VITALS: BP 119/59
--- NOTE | 2020-12-22 11:00 | CONS ---
DATE OF CONSULTATION: 12/22/2020 DICTATION NUMBER: 841. CHIEF COMPLAINT: Left heel wound. HISTORY OF PRESENT ILLNESS: The patient is a 75-year-old male with a history of significant peripheral arterial disease who has been found to have a large left heel necrotic wound. He has a smaller ulcer on his left first toe. He has had wounds on his left foot including the heel and toes, which have healed in the past and have very small amount of tissue breakdown, but very minimal at this time. He has been at [facility] for care. He has been admitted to the hospital with congestive heart failure and fluid overload. He has a history of chronic renal insufficiency, not on hemodialysis and followed by Nephrology. He also is on anticoagulation for atrial fibrillation. He has a long history of severe chronic swelling in his bilateral lower extremities from lymphedema and inflammation of the skin throughout his calf and ankles. He states that this is at his baseline. He reports no significant pain in the legs or feet. He does have neuropathy. He has undergone an angiogram of the right lower extremity with posterior tibial artery angioplasty by Dr. Prince in 07/2019 for a right heel ulcer, which has healed. At that time, angiogram did show tibial disease in the left leg. REVIEW OF SYSTEMS: Otherwise, negative besides what is mentioned in the history of present illness. PAST MEDICAL HISTORY: Includes hypertension, atrial fibrillation, chronic congestive heart failure, chronic renal insufficiency, diabetes mellitus, anemia, peripheral arterial disease, coronary artery disease. PAST SURGICAL HISTORY: Includes angiogram of the right lower extremity in 07/2019 with posterior tibial artery angioplasty, coronary artery stents. ALLERGIES: INCLUDE SULFA. MEDICATIONS: Please see his full MAR. SOCIAL HISTORY: He is currently at [facility]. He does not smoke or drink alcohol. FAMILY HISTORY: Significant for coronary artery disease. PHYSICAL EXAMINATION: GENERAL: The patient is awake and alert, currently in no apparent distress. VITAL SIGNS: He is afebrile. His vital signs are stable. NECK: Stable. ABDOMEN: Soft, nondistended, and nontender. He does have morbid obesity. EXTREMITIES: His bilateral upper extremities are warm without edema. His bilateral lower extremities have moderate to severe swelling throughout the legs secondary to lymphedema with chronic inflammation of the skin throughout the calf and ankles. There is no tissue breakdown within the calves and ankles. His right foot has a healed ulcer on the heel with just skin, callus and irritation and some scabbing on the tips of his toes, but no deep open wounds in the right foot. The foot is pink and warm with capillary refill. The left foot has a large black area of dry gangrene encompassing really his entire left heel. There is no purulent drainage, no surrounding wet necrotic tissue. The skin has this black eschar and it is difficult to tell how deep it is whether it is deep to the bone. On the first toe, there is an open ulcer with no exposed bone and it is clean down to the subcutaneous tissue level. His left foot is warm with good capillary refill. On Doppler examination on the left foot, he has a posterior tibial Doppler flow, which is monophasic. LABORATORY STUDIES: His hemoglobin is 6.9. White blood cell count is 6.7. His creatinine is 2.4. ASSESSMENT AND PLAN: The patient is a 75-year-old male with left lower extremity peripheral arterial disease and a large left heel wound with dry gangrene. He also has an ulcer on his first toe. There are no signs of septic infection needing urgent intervention. I recommend an infectious disease consult for evaluation and possible antibiotic treatment. I recommend an MRI scan of the left foot to evaluate the heel for possible osteomyelitis. I discussed treatment options with him. If there is no osteomyelitis, we can try debridement of the gangrene on his left heel and wound VAC dressing care. I did explain that this would be long-term wound care and with the large defect of skin in his heel, this may never heal, but certainly we could try. If there is extensive bone infection, then this will be very difficult to heal and we will need long-term IV antibiotics versus an amputation of the leg. He is very opposed to amputation and would like to try all measures possible to save his leg. He also has peripheral arterial disease in the left leg. He will need an angiogram of the left leg with likely tibial artery intervention. Dr. Prince has treated his right leg in the past and I spoke to him about doing this angiogram. He does have a creatinine of 2.4. Nephrology is following. We will have to optimize his renal function prior to the angiogram. I would recommend waiting on the MRI study to ensure that there is no extensive osteomyelitis and if not, we will then proceed with an angiogram and intervention on his left leg. He will need surgical debridement of his left heel and wound VAC dressing; however, I would wait until circulation is optimized before proceeding with this debridement. PURVI/YADIRA DR: Yaniv TID: [id number]
--- NOTE | 2020-12-22 11:56 | PDOC ---
Date of Service: DATE: 12/22/20 TIME: 11:47 Objective: Objective: No GI concerns per nurse - hasn't stooled. Vital Signs: Vital Signs Date Time Temp Pulse Resp B/P (MAP) Pulse Ox O2 Delivery O2 Flow Rate FiO2 12/22/20 11:00 97.6 62 20 119/59 (79) 96 Room Air 97.6 Labs: Laboratory Tests Test 12/21/20 17:21 12/21/20 21:05 12/22/20 03:35 12/22/20 07:16 Glucose (Fingerstick) 135 mg/dL 137 mg/dL 84 mg/dL Sodium Level 145 mmol/L Potassium Level 3.2 mmol/L Chloride Level 110 mmol/L Carbon Dioxide Level 24 mmol/L Anion Gap 11 Blood Urea Nitrogen 106 mg/dL Creatinine 2.4 mg/dL Estimated GFR (Cockcroft-Gault) 26.7 Glucose Level 91 mg/dL Calcium Level 7.9 mg/dL Magnesium Level 2.5 mg/dL Test 12/22/20 11:09 Glucose (Fingerstick) 85 mg/dL Imaging: LE Duplex pending PE: GEN: NAD LUNGS: room air HEART: RR per monitor ABD: non-distended NEURO/PSYCH: sleeping soundly - I did not wake him A/P: PAD w/ wounds, CHF, CKD Chronic anemia - required transfusion - no obvious bleeding - s/p endotherapy on EGD 11/2020, on H2 severiano CAD, PVD, A Fib - on Eliquis and ASA (held) -- Continue per vascular and ID. Hgb not checked since transfusion - will order. Transfuse as needed. Continue acid-board worker (could change to PPI if okay w/ nephrology), resume iron. Justicifation of Admission Dx: Justifications for Admission: Justification of Admission Dx: Yes FABBY ROBERTSON December 22, 2020 11:56
[2020-12-22] MEDS ORDERED: POLYETHYLENE GLYCOL 3350 17 GM PACKET. PO PRN (12:00)
[2020-12-22 12:11] LABS: HEMATOCRIT 26.3 % (39.0-53.0); HEMOGLOBIN 8.2 g/dL (13.0-17.5)
--- NOTE | 2020-12-22 12:33 | RAD ---
EXAM: Left lower extremity arterial Doppler sonogram. HISTORY: Peripheral vascular disease. Gangrene. TECHNIQUE: Francis scale and color Doppler sonographic imaging of the lower extremity arteries with spec tral analysis was performed. COMPARISON: None. FINDINGS: There are abnormal monophasic waveforms throughout the superficial femoral artery, poplitea l artery and calf arteries, consistent with hemodynamically significant proximal stenosis. There is a n elevated peak systolic velocity within the mid left superficial femoral artery, measuring 155 cm/s. The left peroneal artery is not seen. IMPRESSION: 1. Abnormal monophasic waveforms throughout the left superficial femoral artery, popliteal artery and calf arteries, a finding which is seen with hemodynamically significant proximal stenosis. There is also suspected segmental stenosis involving the mid superficial femoral artery. 2. Nonvisualization of the left peroneal artery. This may be due to technique or occlusion. Electronically signed by: Leena Lerma MD (12/22/2020 12:31 PM) [id number]
[2020-12-22 13:18] LABS: FECAL OB PT POSITIVE (NEG)
--- NOTE | 2020-12-22 13:31 | PDOC ---
[employer] PROGRESS NOTE Date of Service DOS: DATE: 12/22/20 TIME: 13:27 Chief Complaint Chief Complaint Acute volume overload Acute on chronic CHF exacerbation History of chronic kidney disease Normocytic anemia, possible chronic GI blood loss with EGD showing antral gastric ulcer Left lower extremity wound ulcer with dry gangrene Morbid obesity, OHS, suspect ROBB Severe protein malnutrition History of diabetes mellitus type 2 History of peripheral vascular disease History of atrial fibrillation History of bradycardia status post pacemaker placement History of peripheral vascular disease Hypertension Dyslipidemia Admit to medicine for further management Pending MRI of lower extremity Appreciate vascular surgery recommendation ID consulted IV Lasix drip started Strict I's and O's Nephrology consult Cardiology consult Trend hemoglobin if less than 7 then transfuse 1 unit Eliquis for DVT prophylaxis Pepcid GI prophylaxis ADA diet Full code Discussed with RN and SW Disposition inpatient management as above Surrogate decision maker is Phuong Mathis History of Present Illness History of Present Illness 12/22/2020 No acute events overnight patient seen and examined bedside. No significant weight loss with Lasix drip. Will defer further fluid offloading with cardiology. Pending MRI and further vascular surgery recommendations for lower extremity foot ulcer. Patient's chart, labs, images were reviewed and discussed with RN 12/21/2020 No acute events overnight. Patient has adequate urine output and feels less fluid overload. Documented -580 cc. Patient's chart, labs, images were reviewed and discussed with RN 75 year old male who was sent here from [facility] for evaluation due to bilateral lower extremity swelling, worsening renal function. He has history of CHF, history of chronic renal failure. Patient was sent here by the COMPUTER TRAINING SPECIALIST there today for evaluation of bilateral lower extremity swelling and increased renal function test. Patient denies any chest pain, denies any cough or fever. Patient does have trouble breathing with exertion. Patient says they told him to come here to be admitted so they can do colonoscopy because he has been anemic as well. Patient denies any rectal bleeding. His weight today is 147 kg Upon chart review patient was seen in November 04 09/12/2020 for GI bleed.. Eliquis was actually restarted on 11/09/2020. And also had a pacemaker placed on 11/09/2020 and tolerated procedure well. Patient also does follow-up with Dr. Chau with nephrology and his baseline creatinine appears to be between 1.8-2.0. Vitals/I&O Vitals/I&O: Vital Signs Date Time Temp Pulse Resp B/P (MAP) Pulse Ox O2 Delivery O2 Flow Rate FiO2 12/22/20 11:00 97.6 62 20 119/59 (79) 96 Room Air 97.6 I & O 12/21/20 12/21/20 12/22/20 15:00 23:00 07:00 Intake Total 360 ml 510 ml 620 ml Output Total 1400 ml Balance 360 ml 510 ml -780 ml Physical Exam General: Alert, Oriented X3, Cooperative, No acute distress Heart: Other (2/6 sysotlic murmur, IRRR- tele AFIB. int V pacing ) Lungs: Clear, Other Abdomen: Soft Extremities: Other (2-3+ bilateral LE edema, anasarca ) Skin: No significant lesion Labs Labs: Laboratory Tests Test 12/21/20 17:21 12/21/20 21:05 12/22/20 03:35 12/22/20 07:16 Glucose (Fingerstick) 135 mg/dL (70-99) 137 mg/dL (70-99) 84 mg/dL (70-99) Hemoglobin 8.2 g/dL (13.0-17.5) Hematocrit 26.3 % (39.0-53.0) Mean Corpuscular Hemoglobin Concent 31 g/dL (31-37) Sodium Level 145 mmol/L (136-145) Potassium Level 3.2 mmol/L (3.5-5.1) Chloride Level 110 mmol/L (98-107) Carbon Dioxide Level 24 mmol/L (21-32) Anion Gap 11 (6-14) Blood Urea Nitrogen 106 mg/dL (8-26) Creatinine 2.4 mg/dL (0.7-1.3) Estimated GFR (Cockcroft-Gault) 26.7 Glucose Level 91 mg/dL (70-99) Calcium Level 7.9 mg/dL (8.5-10.1) Magnesium Level 2.5 mg/dL (1.8-2.4) Test 12/22/20 11:09 12/22/20 12:29 Glucose (Fingerstick) 85 mg/dL (70-99) Stool Occult Blood Positive (NEG) Assessment and Plan Assessmemt and Plan Problems Medical Problems: (1) Anemia Status: Acute (2) CHF exacerbation Status: Acute Comment Review of Relevant I have reviewed the following items mara (where applicable) has been applied. Medications: Current Medications Medications (Trade) Dose Ordered Sig/Redd Route PRN Reason Start Time Stop Time Status Last Admin Dose Admin Potassium Chloride (Klor-Con) 40 meq 1X ONCE PO 12/22/20 08:30 12/22/20 08:31 DC 12/22/20 08:39 Justifications for Admission Other Justification CHF exacerbation KANNAN NELSON MD December 22, 2020 13:31
[2020-12-22 15:00] VITALS: BP 150/72
[2020-12-22] MEDS: FERROUS SULFATE ORAL 300 MG/5 ML SOLUTION. PO SCH (18:27)
[2020-12-22 19:00] VITALS: BP 165/75
--- NOTE | 2020-12-22 19:45 | NUR ---
Pt in bed assessment completed vss poc explained pt denied pain poc explained will resume care and continue to monitor pt. Call light in reach.
[2020-12-22] MEDS: ATORVASTATIN CALCIUM 40 MG TABLET. PO SCH (21:51)
[2020-12-22] MEDS: INSULIN GLARGINE SYRINGE. SQ SCH (21:52)
[2020-12-22 22:35] VITALS: BP 136/61
[2020-12-23 02:33] VITALS: BP 121/42
[2020-12-23] MEDS: FUROSEMIDE INJ 100 MG in IV NORMAL SALINE 100ML 100 ML IV PRN ×2 (05:30→20:30)
[2020-12-23 06:23] LABS: CALCIUM 7.9 mg/dL (8.5-10.1); CREATININE 2.3 mg/dL (0.7-1.3)
[2020-12-23 06:33] LABS: POTASSIUM 2.9 mmol/L (3.5-5.1)
[2020-12-23 07:00] VITALS: BP 153/71
[2020-12-23] MEDS ORDERED: POTASSIUM CHLORIDE 20 MEQ TABLET.ER. PO ONE ×2 (07:00→09:00)
[2020-12-23] MEDS: INSULIN LISPRO 300 UNITS/3 ML VIAL. SQ SCH ×3 (08:00→17:00)
--- NOTE | 2020-12-23 08:39 | PDOC ---
Infectious Disease Note Vital Sign Vital Signs Vital Signs Date Time Temp Pulse Resp B/P (MAP) Pulse Ox O2 Delivery O2 Flow Rate FiO2 12/23/20 02:33 97.6 63 16 121/42 (68) 95 Room Air 97.6 Labs Lab Laboratory Tests Test 12/22/20 11:09 12/22/20 12:29 12/22/20 16:37 12/22/20 20:06 Glucose (Fingerstick) 85 mg/dL (70-99) 109 mg/dL (70-99) 111 mg/dL (70-99) Stool Occult Blood Positive (NEG) Test 12/23/20 04:05 12/23/20 08:19 Sodium Level 145 mmol/L (136-145) Potassium Level 2.9 mmol/L (3.5-5.1) Chloride Level 109 mmol/L (98-107) Carbon Dioxide Level 25 mmol/L (21-32) Anion Gap 11 (6-14) Blood Urea Nitrogen 99 mg/dL (8-26) Creatinine 2.3 mg/dL (0.7-1.3) Estimated GFR (Cockcroft-Gault) 28.0 Glucose Level 72 mg/dL (70-99) Calcium Level 7.9 mg/dL (8.5-10.1) Glucose (Fingerstick) 66 mg/dL (70-99) Objective Assessment PT SEEN, CONSULT DICTATED Plan Plan of Care // MIKE ROSA MD December 23, 2020 08:39
[2020-12-23] MEDS: SERTRALINE 50 MG TABLET. PO SCH (08:54)
[2020-12-23] MEDS: FERROUS SULFATE ORAL 300 MG/5 ML SOLUTION. PO SCH ×2 (08:54→18:17)
[2020-12-23] MEDS: NYSTATIN TOPICAL POWDER 15GM BOTTLE. TP SCH ×2 (08:55→20:33)
[2020-12-23] MEDS: hydrALAZINE 25 MG TABLET PO SCH ×3 (08:55→20:30)
[2020-12-23] MEDS: ASCORBIC ACID 500 MG TABLET PO SCH ×2 (08:55→20:30)
[2020-12-23] MEDS: FAMOTIDINE 20 MG TABLET. PO SCH (08:55)
[2020-12-23] MEDS: METOPROLOL SUCC 24HR ER 25 MG TAB.ER.24H. PO SCH (08:58)
--- NOTE | 2020-12-23 10:11 | PDOC ---
PROGRESS NOTES Date of Service DATE: 12/23/20 TIME: 10:03 Subjective Subjective Patient seen and examined in room, he is resting comfortably eating breakfast. Nurses at bedside. The nurse reports the MRI will take place at 3 today pacemaker insurance account representative will need to be on available. Objective Objective Vital Signs Date Time Temp Pulse Resp B/P (MAP) Pulse Ox O2 Delivery O2 Flow Rate FiO2 12/23/20 08:58 63 121/42 12/23/20 07:00 97.9 16 93 Room Air 97.9 Intake and Output 12/23/20 07:00 Intake Total 550 ml Output Total 2900 ml Balance -2350 ml Intake Oral 550 ml Output Urine Total 2900 ml # Bowel Movements 1 Physical Exam Physical Exam Awake and alert Vital signs stable, afebrile Heart rate regular Nonlabored respirations Left heel remains in heel protector. Skin is warm, dry and intact. [place]. Assessment Assessment Problems Medical Problems: (1) Anemia Status: Acute (2) CHF exacerbation Status: Acute Plan Plan of Care 75 year old male with left leg peripheral artery disease with a large left heel wound with dry gangrene and 1st toe ulcer. Recommend MRI of the left foot to rule out osteomyelitis in the calcaneous bone associated with the heel wound. If no osteomyelitis can try debridement with wound vac dressing however this will be a very hard wound to heal with the large skin defect in the heel. Left lower extremity ultrasound reviewed he has monophasic waveforms throughout the left superficial femoral artery, popliteal artery and calf arteries. He will need an angiogram of the left leg and likely percutaneous intervention to improve circulation if decision for debridement. Will ask nephrology to optimize him for an angiogram, Cr 2.3. Dr. Bowens has spoke with Dr. Prince about doing a left leg angiogram. He underwent right leg intervention in 2019. Antibiotics per ID Continue to off-load heel. Comment Review of Relevant I have reviewed the following items mara (where applicable) has been applied. Labs Laboratory Tests Test 12/21/20 11:28 12/21/20 17:21 12/21/20 21:05 12/22/20 03:35 Glucose (Fingerstick) 129 mg/dL (70-99) 135 mg/dL (70-99) 137 mg/dL (70-99) Hemoglobin 8.2 g/dL (13.0-17.5) Hematocrit 26.3 % (39.0-53.0) Mean Corpuscular Hemoglobin Concent 31 g/dL (31-37) Sodium Level 145 mmol/L (136-145) Potassium Level 3.2 mmol/L (3.5-5.1) Chloride Level 110 mmol/L (98-107) Carbon Dioxide Level 24 mmol/L (21-32) Anion Gap 11 (6-14) Blood Urea Nitrogen 106 mg/dL (8-26) Creatinine 2.4 mg/dL (0.7-1.3) Estimated GFR (Cockcroft-Gault) 26.7 Glucose Level 91 mg/dL (70-99) Calcium Level 7.9 mg/dL (8.5-10.1) Magnesium Level 2.5 mg/dL (1.8-2.4) Test 12/22/20 07:16 12/22/20 11:09 12/22/20 12:29 12/22/20 16:37 Glucose (Fingerstick) 84 mg/dL (70-99) 85 mg/dL (70-99) 109 mg/dL (70-99) Stool Occult Blood Positive (NEG) Test 12/22/20 20:06 12/23/20 04:05 12/23/20 08:19 Glucose (Fingerstick) 111 mg/dL (70-99) 66 mg/dL (70-99) Sodium Level 145 mmol/L (136-145) Potassium Level 2.9 mmol/L (3.5-5.1) Chloride Level 109 mmol/L (98-107) Carbon Dioxide Level 25 mmol/L (21-32) Anion Gap 11 (6-14) Blood Urea Nitrogen 99 mg/dL (8-26) Creatinine 2.3 mg/dL (0.7-1.3) Estimated GFR (Cockcroft-Gault) 28.0 Glucose Level 72 mg/dL (70-99) Calcium Level 7.9 mg/dL (8.5-10.1) Laboratory Tests Test 12/22/20 11:09 12/22/20 12:29 12/22/20 16:37 12/22/20 20:06 Glucose (Fingerstick) 85 mg/dL (70-99) 109 mg/dL (70-99) 111 mg/dL (70-99) Stool Occult Blood Positive (NEG) Test 12/23/20 04:05 12/23/20 08:19 Sodium Level 145 mmol/L (136-145) Potassium Level 2.9 mmol/L (3.5-5.1) Chloride Level 109 mmol/L (98-107) Carbon Dioxide Level 25 mmol/L (21-32) Anion Gap 11 (6-14) Blood Urea Nitrogen 99 mg/dL (8-26) Creatinine 2.3 mg/dL (0.7-1.3) Estimated GFR (Cockcroft-Gault) 28.0 Glucose Level 72 mg/dL (70-99) Calcium Level 7.9 mg/dL (8.5-10.1) Glucose (Fingerstick) 66 mg/dL (70-99) Medications Current Medications Apixaban (Eliquis) 2.5 mg BID PO Last administered on 12/21/20at 09:00; Start 12/20/20 at 22:00; Stop 12/21/20 at 13:36; Status DC Atorvastatin Calcium (Lipitor) 40 mg HS PO Last administered on 12/22/20at 21:51; Start 12/20/20 at 22:00 Buspirone HCl (Buspar) 10 mg PRN DAILY PRN PO ANXIETY / AGITATION; Start 12/20/20 at 21:45 Famotidine (Pepcid) 20 mg DAILY PO Last administered on 12/23/20at 08:55; Start 12/21/20 at 09:00 Hydralazine HCl (Apresoline) 25 mg TID PO Last administered on 12/23/20at 08:55; Start 12/21/20 at 09:00 Insulin Glargine (Lantus Syringe) 15 unit QHS SQ Last administered on 12/22/20at 21:52; Start 12/20/20 at 22:00 Metoprolol Succinate (Toprol Xl) 25 mg DAILY PO Last administered on 12/23/20at 08:58; Start 12/21/20 at 09:00 Nystatin (Nystop) 1 daniela BID TP Last administered on 12/23/20at 08:55; Start 12/20/20 at 22:00 Sennosides (Senna) 8.6 mg PRN BID PRN PO CONSTIPATION 1ST CHOICE; Start 12/20/20 at 21:45; Stop 12/20/20 at 21:52; Status DC Sertraline HCl (Zoloft) 50 mg DAILY PO Last administered on 12/23/20at 08:54; Start 12/21/20 at 09:00 Ascorbic Acid (Vitamin C) 500 mg BID PO Last administered on 12/23/20at 08:55; Start 12/20/20 at 22:00 Furosemide (Lasix) 40 mg 1X ONCE IVP Last administered on 12/20/20at 23:03; Start 12/20/20 at 21:45; Stop 12/20/20 at 21:46; Status DC Sennosides (Senna) 17.2 mg PRN BID PRN PO CONSTIPATION, 2ND CHOICE Last administered on 12/21/20at 21:11; Start 12/20/20 at 21:45 Docusate Sodium (Colace) 100 mg PRN DAILY PRN PO HARD STOOLS; Start 12/20/20 at 21:45 Ondansetron HCl (Zofran) 4 mg PRN Q6HRS PRN IVP NAUSEA/VOMITING; Start 12/20/20 at 21:45 Insulin Human Lispro (HumaLOG) 0-7 UNITS TIDWMEALS SQ ; Start 12/21/20 at 08:00 Dextrose (Dextrose 50%-Water Syringe) 12.5 gm PRN Q15MIN PRN IV SEE COMMENTS; Start 12/20/20 at 21:45 Acetaminophen (Tylenol) 650 mg PRN Q4HRS PRN PO TEMP OVER 100.4F OR MILD PAIN Last administered on 12/20/20at 23:02; Start 12/20/20 at 21:45 Furosemide 100 mg/ Sodium Chloride 100 ml @ 0 mls/hr CONT PRN IV SEE I/O RECORD Last administered on 12/23/20at 05:30; Start 12/21/20 at 11:30 Potassium Chloride (Klor-Con) 20 meq 1X ONCE PO Last administered on 12/21/20at 14:02; Start 12/21/20 at 12:15; Stop 12/21/20 at 12:16; Status DC Potassium Chloride (Klor-Con) 40 meq 1X ONCE PO Last administered on 12/22/20at 08:39; Start 12/22/20 at 08:30; Stop 12/22/20 at 08:31; Status DC Ferrous Sulfate (Iron Oral Solution) 300 mg BIDWMEALS PO Last administered on 12/23/20at 08:54; Start 12/22/20 at 17:00 Polyethylene Glycol (miraLAX PACKET) 17 gm PRN DAILY PRN PO CONSTIPATION, 1ST CHOICE; Start 12/22/20 at 12:00 Potassium Chloride (Klor-Con) 40 meq 1X ONCE PO Last administered on 12/23/20at 06:54; Start 12/23/20 at 07:00; Stop 12/23/20 at 07:01; Status DC Potassium Chloride (Klor-Con) 40 meq 1X ONCE PO Last administered on 12/23/20at 08:54; Start 12/23/20 at 09:00; Stop 12/23/20 at 09:01; Status DC Active Scripts Active Lantus (Insulin Glargine,Hum.rec.anlog) 100 Unit/1 Ml Vial 15 Unit SQ QHS 30 Days Famotidine 20 Mg Tablet 20 Mg PO DAILY 30 Days Acetaminophen Supp (Acetaminophen) 650 Mg Supp.rect 650 Mg IN PRN Q4HRS PRN 30 Days Hydralazine Hcl 25 Mg Tablet 25 Mg PO TID 30 Days Reported Tylenol (Acetaminophen) 325 Mg Tablet 1-2 Tab PO QID Vitamin C (Ascorbic Acid) 500 Mg Capsule 500 Mg PO BID Senokot (Sennosides) 8.6 Mg Tablet 1 Tab PO BID PRN 20 Days Potassium Chloride 20 Meq Tablet.er 20 Meq PO DAILY Nystatin 15 Gm Powder 1 Daniela TP BID 7 Days apply to affected area(s) Lasix (Furosemide) 40 Mg Tablet 40 Mg PO BIDBFRMEAL Zoloft (Sertraline Hcl) 50 Mg Tablet 50 Mg PO DAILY Metoprolol Succinate ( Xl ) (Metoprolol Succinate) 25 Mg Tab.er.24h 25 Mg PO DAILY Eliquis (Apixaban) 5 Mg Tablet 2.5 Mg PO BID Slow Release Iron (Ferrous Sulfate) 160 Mg Tablet.er 160 Mg PO DAILY Buspirone Hcl 10 Mg Tablet 1 Tab PO PRN DAILY PRN Atorvastatin Calcium 40 Mg Tablet 40 Mg PO HS Vitals/I & O Vital Sign - Last 24 Hours 12/22/20 12/22/20 12/22/20 12/22/20 11:00 15:00 15:30 19:00 Temp 97.6 97.7 97.5 97.6 97.7 97.5 Pulse 62 66 66 63 Resp 20 18 18 B/P (MAP) 119/59 (79) 150/72 (98) 150/72 165/75 (105) Pulse Ox 96 96 96 O2 Delivery Room Air Room Air Room Air 12/22/20 12/22/20 12/22/20 12/23/20 19:45 21:51 22:35 02:33 Temp 97.6 97.6 97.6 97.6 Pulse 63 66 63 Resp 16 16 B/P (MAP) 165/75 136/61 (86) 121/42 (68) Pulse Ox 94 95 O2 Delivery Room Air Room Air Room Air 12/23/20 12/23/20 12/23/20 07:00 08:55 08:58 Temp 97.9 97.9 Pulse 62 63 63 Resp 16 B/P (MAP) 153/71 (98) 121/42 121/42 Pulse Ox 93 O2 Delivery Room Air Intake and Output 12/22/20 12/22/20 12/23/20 15:00 23:00 07:00 Intake Total 300 ml 250 ml Output Total 650 ml 300 ml 1950 ml Balance -650 ml 0 ml -1700 ml Justifications for Admission Other Justification CHF exacerbation CHAS BERNAL ASSISTANT CHIEF ENGINEER December 23, 2020 10:11
--- NOTE | 2020-12-23 10:34 | PDOC ---
DATE OF SERVICE DATE: 12/23/20 TIME: 10:33 SUBJECTIVE ROS Stable , No concerns overnight OBJECTIVE Vital Signs Vital Signs Date Time Temp Pulse Resp B/P (MAP) Pulse Ox O2 Delivery O2 Flow Rate FiO2 12/23/20 08:58 63 121/42 12/23/20 07:00 97.9 16 93 Room Air 97.9 I & 0 Intake and Output 12/23/20 07:00 Intake Total 550 ml Output Total 2900 ml Balance -2350 ml Intake Oral 550 ml Output Urine Total 2900 ml # Bowel Movements 1 PHYSICAL EXAM Physical Exam General: NAD , propped up in bed HEENT: Atraumatic, OM moist Neck supple Lungs: Clear to auscultation Heart: Bradycardic, ESM aortic) Abdomen: Soft, NT Extremities: Bilat LE edema 2-3 + a Neuro: grossly normal Psych/Mental Status: Mood NL lowery + , No cva or SP tenderness Skin No rash DIAGNOSIS/ASSESSMENT Assessment & Plan REBECCA vs baseline CKD - Cardiorenal , stable Non Oliguric,improved uop with lasix gtt Supportive care Strict I/O, avoid nephrotoxins CKD stage 3B/ 4 - Follows with Dr. Roca, baseline Cr per [facility] records prior to previous admission 1.8-2.0 but 2.3 to 2.5 since REBECCA recently in November 2020 HypoKalemia - 2/2 Diuretics, Replace as indicated Hx of Acute blood loss anemia secondary to GIB. s/p cauterization of bleeding antral ulcer by GI team and PRBC in November . Hgb this admission low as well - defer to GI Renal calculus - RK- Possible intrarenal stones. LK Possible intrarenal stones to include a 13 mm focus of increased echogenicity at the upper pole.No e/o obstruction reported . Pt denies any past history Worsening LE edema- Bilat LE and anasarca- Wt up compared to his recent admission . continue Lasix gtt , dw Cardiology, Monitor closely ,daily standing weight(if pt able to stand ) , Left heel wound with dry gangrene and 1st toe ulcer- Vascular Recommend MRI and Possible Angio. Risk ok MASTER may require Dialysis - with contrast 2/2 CKD 4, requiring Lasix , may not tolerate IVF- Weigh Risk and benefit of the Contrast study- defer to Vascular Acute on chronic diastolic CHF; Echo 07/25 with preserved LV systolic function Anemia with h/o GIB with cauterization of bleeding antral ulcer CAD; s/p PCI/RHEA to LAD in 2019. clinically stable, CP free. PAD s/p past orbital atherectomy/W[employer] CONSERVATIONIST to right posterior tibial artery. Permanent AFIB; rate controlled on BB SSS; s/p PPM ([employer]) Hypertension; controlled Valvular disease; mild to moderate aortic stenosis COMMENT/RELEVANT DATA Meds Current Medications Medications (Trade) Dose Ordered Sig/Redd Start Time Stop Time Status Last Admin Dose Admin Acetaminophen (Tylenol) 650 mg PRN Q4HRS PRN 12/20/20 21:45 12/20/20 23:02 650 MG Apixaban (Eliquis) 2.5 mg BID 12/20/20 22:00 12/21/20 13:36 DC 12/21/20 09:00 2.5 MG Ascorbic Acid (Vitamin C) 500 mg BID 12/20/20 22:00 12/23/20 08:55 500 MG Atorvastatin Calcium (Lipitor) 40 mg HS 12/20/20 22:00 12/22/20 21:51 40 MG Buspirone HCl (Buspar) 10 mg PRN DAILY PRN 12/20/20 21:45 Dextrose (Dextrose 50%-Water Syringe) 12.5 gm PRN Q15MIN PRN 12/20/20 21:45 Docusate Sodium (Colace) 100 mg PRN DAILY PRN 12/20/20 21:45 Famotidine (Pepcid) 20 mg DAILY 12/21/20 09:00 12/23/20 08:55 20 MG Ferrous Sulfate (Iron Oral Solution) 300 mg BIDWMEALS 12/22/20 17:00 12/23/20 08:54 300 MG Furosemide (Lasix) 40 mg 1X ONCE 12/20/20 21:45 12/20/20 21:46 DC 12/20/20 23:03 40 MG Furosemide 100 mg/ Sodium Chloride 100 ml @ 0 mls/hr CONT PRN 12/21/20 11:30 12/23/20 05:30 10 MLS/HR Hydralazine HCl (Apresoline) 25 mg TID 12/21/20 09:00 12/23/20 08:55 25 MG Insulin Glargine (Lantus Syringe) 15 unit QHS 12/20/20 22:00 12/22/20 21:52 15 UNIT Insulin Human Lispro (HumaLOG) 0-7 UNITS TIDWMEALS 12/21/20 08:00 Metoprolol Succinate (Toprol Xl) 25 mg DAILY 12/21/20 09:00 12/23/20 08:58 25 MG Nystatin (Nystop) 1 luna BID 12/20/20 22:00 12/23/20 08:55 1 LUNA Ondansetron HCl (Zofran) 4 mg PRN Q6HRS PRN 12/20/20 21:45 Polyethylene Glycol (miraLAX PACKET) 17 gm PRN DAILY PRN 12/22/20 12:00 Potassium Chloride (Klor-Con) 40 meq 1X ONCE 12/23/20 09:00 12/23/20 09:01 DC 12/23/20 08:54 40 MEQ Sennosides (Senna) 17.2 mg PRN BID PRN 12/20/20 21:45 12/21/20 21:11 17.2 MG Sertraline HCl (Zoloft) 50 mg DAILY 12/21/20 09:00 12/23/20 08:54 50 MG Lab Laboratory Tests Test 12/22/20 11:09 12/22/20 12:29 12/22/20 16:37 12/22/20 20:06 Glucose (Fingerstick) 85 mg/dL (70-99) 109 mg/dL (70-99) 111 mg/dL (70-99) Stool Occult Blood Positive (NEG) Test 12/23/20 04:05 12/23/20 08:19 Sodium Level 145 mmol/L (136-145) Potassium Level 2.9 mmol/L (3.5-5.1) Chloride Level 109 mmol/L (98-107) Carbon Dioxide Level 25 mmol/L (21-32) Anion Gap 11 (6-14) Blood Urea Nitrogen 99 mg/dL (8-26) Creatinine 2.3 mg/dL (0.7-1.3) Estimated GFR (Cockcroft-Gault) 28.0 Glucose Level 72 mg/dL (70-99) Calcium Level 7.9 mg/dL (8.5-10.1) Glucose (Fingerstick) 66 mg/dL (70-99) Results All relevant outside records, renal labs, imaging studies, telemetry/EKG's were reviewed. Justicifation of Admission Dx: Justifications for Admission: Justification of Admission Dx: Yes BEATRIZ IBARRA MD December 23, 2020 10:34
--- NOTE | 2020-12-23 10:52 | PDOC ---
Date of Service: DATE: 12/23/20 TIME: 10:50 Subjective: Subjective: No GI complaints, no bleeding. Objective: Vital Signs: Vital Signs Date Time Temp Pulse Resp B/P (MAP) Pulse Ox O2 Delivery O2 Flow Rate FiO2 12/23/20 08:58 63 121/42 12/23/20 07:00 97.9 16 93 Room Air 97.9 Labs: Laboratory Tests Test 12/22/20 11:09 12/22/20 12:29 12/22/20 16:37 12/22/20 20:06 Glucose (Fingerstick) 85 mg/dL 109 mg/dL 111 mg/dL Stool Occult Blood Positive Test 12/23/20 04:05 12/23/20 08:19 Sodium Level 145 mmol/L Potassium Level 2.9 mmol/L Chloride Level 109 mmol/L Carbon Dioxide Level 25 mmol/L Anion Gap 11 Blood Urea Nitrogen 99 mg/dL Creatinine 2.3 mg/dL Estimated GFR (Cockcroft-Gault) 28.0 Glucose Level 72 mg/dL Calcium Level 7.9 mg/dL Glucose (Fingerstick) 66 mg/dL PE: GEN: NAD LUNGS: CTAB HEART: RRR ABD: NABS, S/ND/NT NEURO/PSYCH: A & O 3 A/P: PAD w/ wounds, CHF, CKD Chronic anemia, +Hemoccult - s/p endotherapy on EGD 11/2020 - on H2 severiano (changed from PPI last admission w/ REBECCA) CAD, A Fib - ASA and Eliquis held -- Plans for MRI per vascular today. Follow Hgb, transfuse as needed. Continue acid-button grader and iron. Justicifation of Admission Dx: Justifications for Admission: Justification of Admission Dx: Yes FABBY ROBERTSON December 23, 2020 10:52
[2020-12-23 11:00] VITALS: BP 132/67
--- NOTE | 2020-12-23 11:22 | PDOC ---
[employer] PROGRESS NOTE Date of Service DOS: DATE: 12/23/20 TIME: 11:15 Chief Complaint Chief Complaint Acute volume overload Acute on chronic CHF exacerbation Hypokalemia History of chronic kidney disease Normocytic anemia, possible chronic GI blood loss with EGD showing antral gastric ulcer Left lower extremity wound ulcer with dry gangrene Morbid obesity, OHS, suspect ROBB Severe protein malnutrition History of diabetes mellitus type 2 History of peripheral vascular disease History of atrial fibrillation History of bradycardia status post pacemaker placement History of peripheral vascular disease Hypertension Dyslipidemia Admit to medicine for further management Pending MRI of lower extremity today Appreciate vascular surgery recommendationwe will obtain MRI to determine level of possible amputation ID consulted IV Lasix drip started Strict I's and O's Nephrology consult Cardiology consult Trend hemoglobin if less than 7 then transfuse 1 unit Eliquis for DVT prophylaxis Pepcid GI prophylaxis ADA diet Full code Discussed with RN and SW Disposition inpatient management as above Surrogate decision maker is Phuong Mathis History of Present Illness History of Present Illness 12/23/2020 No acute events overnight. Patient seen and examined bedside. Pedal edema has improved total of -2.3 L of urine output. Low potassium today will replace IV and p.o. Creatinine has also improved. Pending MRI versus CT of left lower extremity. Patient's chart, labs, images were reviewed and discussed with RN 12/22/2020 No acute events overnight patient seen and examined bedside. No significant weight loss with Lasix drip. Will defer further fluid offloading with cardiology. Pending MRI and further vascular surgery recommendations for lower extremity foot ulcer. Patient's chart, labs, images were reviewed and discussed with RN 12/21/2020 No acute events overnight. Patient has adequate urine output and feels less fluid overload. Documented -580 cc. Patient's chart, labs, images were reviewed and discussed with RN 75 year old male who was sent here from [facility] for evaluation due to bilateral lower extremity swelling, worsening renal function. He has history of CHF, history of chronic renal failure. Patient was sent here by the FOOT TENDER there today for evaluation of bilateral lower extremity swelling and increased renal function test. Patient denies any chest pain, denies any cough or fever. Patient does have trouble breathing with exertion. Patient says they told him to come here to be admitted so they can do colonoscopy because he has been anemic as well. Patient denies any rectal bleeding. His weight today is 147 kg Upon chart review patient was seen in November 04 09/12/2020 for GI bleed.. Eliquis was actually restarted on 11/09/2020. And also had a pacemaker placed on 11/09/2020 and tolerated procedure well. Patient also does follow-up with Dr. Chau with nephrology and his baseline creatinine appears to be between 1.8-2.0. Vitals/I&O Vitals/I&O: Vital Signs Date Time Temp Pulse Resp B/P (MAP) Pulse Ox O2 Delivery O2 Flow Rate FiO2 12/23/20 08:58 63 121/42 12/23/20 07:00 97.9 16 93 Room Air 97.9 I & O 12/22/20 12/22/20 12/23/20 15:00 23:00 07:00 Intake Total 300 ml 250 ml Output Total 650 ml 300 ml 1950 ml Balance -650 ml 0 ml -1700 ml Physical Exam General: Alert, Oriented X3, Cooperative, No acute distress Heart: Other (2/ sysotlic murmur, IRRR- tele AFIB. int V pacing ) Lungs: Clear, Other Abdomen: Soft Extremities: Other (2-3+ bilateral LE edema, anasarca ) Skin: No significant lesion Labs Labs: Laboratory Tests Test 12/22/20 12:29 12/22/20 16:37 12/22/20 20:06 12/23/20 04:05 Stool Occult Blood Positive (NEG) Glucose (Fingerstick) 109 mg/dL (70-99) 111 mg/dL (70-99) Sodium Level 145 mmol/L (136-145) Potassium Level 2.9 mmol/L (3.5-5.1) Chloride Level 109 mmol/L (98-107) Carbon Dioxide Level 25 mmol/L (21-32) Anion Gap 11 (6-14) Blood Urea Nitrogen 99 mg/dL (8-26) Creatinine 2.3 mg/dL (0.7-1.3) Estimated GFR (Cockcroft-Gault) 28.0 Glucose Level 72 mg/dL (70-99) Calcium Level 7.9 mg/dL (8.5-10.1) Test 12/23/20 08:19 Glucose (Fingerstick) 66 mg/dL (70-99) Assessment and Plan Assessmemt and Plan Problems Medical Problems: (1) Anemia Status: Acute (2) CHF exacerbation Status: Acute Comment Review of Relevant I have reviewed the following items mara (where applicable) has been applied. Medications: Current Medications Medications (Trade) Dose Ordered Sig/Redd Route PRN Reason Start Time Stop Time Status Last Admin Dose Admin Ferrous Sulfate (Iron Oral Solution) 300 mg BIDWMEALS PO 12/22/20 17:00 12/23/20 08:54 Potassium Chloride (Klor-Con) 40 meq 1X ONCE PO 12/23/20 07:00 12/23/20 07:01 DC 12/23/20 06:54 Potassium Chloride (Klor-Con) 40 meq 1X ONCE PO 12/23/20 09:00 12/23/20 09:01 DC 12/23/20 08:54 Justifications for Admission Other Justification CHF exacerbation KANNAN NELSON MD December 23, 2020 11:22
--- NOTE | 2020-12-23 11:31 | PDOC ---
YUDY SCOTT SOFTWARE ENGINEER [employer] 12/23/20 1131: CARDIO Progress Notes Date and Time Date of Service 12/23/20 Time of Evaluation 12/23/20 Subjective Subjective: No Chest Pain, No shortness of breath, No Palpitations, Other (LE edema persists) Vitals Vitals Vital Signs Date Time Temp Pulse Resp B/P (MAP) Pulse Ox O2 Delivery O2 Flow Rate FiO2 12/23/20 11:00 97.8 60 16 132/67 (88) 93 Room Air 97.8 Weight Weight [ ] Input and Output Intake and Output Intake and Output 12/23/20 07:00 Intake Total 550 ml Output Total 2900 ml Balance -2350 ml Intake Oral 550 ml Output Urine Total 2900 ml # Bowel Movements 1 Laboratory Labs Laboratory Tests Test 12/22/20 12:29 12/22/20 16:37 12/22/20 20:06 12/23/20 04:05 Stool Occult Blood Positive (NEG) Glucose (Fingerstick) 109 mg/dL (70-99) 111 mg/dL (70-99) Sodium Level 145 mmol/L (136-145) Potassium Level 2.9 mmol/L (3.5-5.1) Chloride Level 109 mmol/L (98-107) Carbon Dioxide Level 25 mmol/L (21-32) Anion Gap 11 (6-14) Blood Urea Nitrogen 99 mg/dL (8-26) Creatinine 2.3 mg/dL (0.7-1.3) Estimated GFR (Cockcroft-Gault) 28.0 Glucose Level 72 mg/dL (70-99) Calcium Level 7.9 mg/dL (8.5-10.1) Test 12/23/20 08:19 Glucose (Fingerstick) 66 mg/dL (70-99) Physical Exam HEENT: Neck Supple W Full Motion Chest: Symmetric LUNGS: Other (diminished ) Heart: irregularly irregular (AFIB) Abdomen: Soft N/T, Other (obese ) Extremities: Other (ansarca, multiple toe and heel wounds with drsg intact ) Neurology: alert, oriented, follow commands Assessment Assessment 1. Worsening LE edema, anasarca; improved with diuresis 2. Acute on chronic diastolic CHF; Echo 07/25 with preserved LV systolic function. on Lasix gtt. UOP better 3. Anemia with h/o GIB with cauterization of bleeding antral ulcer. s/p transfusion. no obvious bleeding. 4. CAD; s/p PCI/RHEA to LAD in 2019. clinically stable, CP free. 5. PAD s/p past orbital atherectomy/TOBACCO PRIMER MACHINE OPERATOR to right posterior tibial artery. LE wounds present. Duplex with monophasic waveforms throughout LLE. Vascular following. MRI today once [employer] rep available. Consider aortogram and possible TOBACCO PRIMER MACHINE OPERATOR to improve blood supply to the wound 6. Permanent AFIB; rate controlled on BB 7. SSS; s/p PPM ([employer]). intermittent v-pacing. recent device check with normal function 8. Hypertension; controlled 9. Hyperlipidemia; statin 10. Diabetes, II; as per IM 11. REBECCA on CKD; Cr stable with diuresis 12. Valvular disease; mild to moderate aortic stenosis 13. Protein calorie malnutrition 14. Hypokalemia Recommendations Continue Lasix gtt Replace electrolytes as warranted Monitor UOP Follow renal recs Secondary prevention Metoprolol for rate control OAC on hold with anemia, recent GIB Monitor H and H Local wound care Await MRI Follow vascular recs Supportive care Justicifation of Admission Dx: Justifications for Admission: Justification of Admission Dx: Yes DICK LAZO MD 12/23/202031: CARDIO Progress Notes Assessment Assessment Patient seen and examined. Agree with OFFICE SYSTEMS TECHNOLOGY INSTRUCTOR's assessment and plan. Continue Lasix drip for acute on chronic diastolic heart failure. Nephrology following Permanent atrial fibrillation rate controlled. Hold Eliquis secondary to anemia and his known history of peptic ulcer disease. CAD status clinically stable. SSS s/p PPM with recent device check showing normal function. Discussed options for wound left foot with Vascular surgery team - appreciate their input Plan for MRI of foot once cleared by [employer] rep and possible aortogram and TOBACCO PRIMER MACHINE OPERATOR to improve blood supply to the wound mateosome YUDY SCOTT APRN December 23, 2020 11:31 DICK LAZO MD December 23, 2020 20:32
--- NOTE | 2020-12-23 12:46 | NUR ---
SS following up with discharge planning. SS reviewed pt chart and discussed with pt RN. Pt is currently on room air. Pt on IV Lasix. Pt having MRI today at 1500. Vascular following. PT/OT recommended [facility] unit. Pt is rehabilitation resident from [facility], ; fax [phone], and is able to return when medically stable for discharge. SS will continue to follow for discharge planning.
[2020-12-23 14:00] VITALS: BP 165/73
--- NOTE | 2020-12-23 16:15 | CONS ---
DATE OF CONSULTATION: 12/23/2020 REQUESTING PHYSICIAN: Tomasa Bowens MD ATTENDING PHYSICIAN: Jose Wynn MD REASON FOR CONSULTATION: Suspected osteomyelitis of the left calcaneum. HISTORY OF PRESENT ILLNESS: This is a 75-year-old gentleman who was in the [facility] for a temporary rehab. The patient developed blister as he says he was using the stationary bicycle, blister on the left heel and then it turned black. The patient denies any other trauma or anything. The patient denies any nausea, vomiting, diarrhea, chest pain, shortness of breath, abdominal pain, urinary symptoms or bowel symptoms. The patient does have peripheral arterial disease and now the heel has completely black eschar and there is a small ulcer on the left first toe. The patient is not on any antibiotics. PAST MEDICAL HISTORY: Positive for peripheral arterial disease. The patient has had angioplasty and intervention done on the right lower extremity in the past, also has obesity, hypertension, congestive heart failure, renal insufficiency, diabetes mellitus, anemia, coronary artery disease. SOCIAL HISTORY: Negative for smoking, alcohol use or drug use. ALLERGIES: LISTED ALLERGIC TO SULFA. CURRENT MEDICATIONS: Reviewed. REVIEW OF SYSTEMS: As in HPI. All other systems reviewed and are negative. PHYSICAL EXAMINATION: GENERAL: Alert, oriented gentleman, not in any distress. VITAL SIGNS: Temperature 97.6, pulse 63, respirations 16, blood pressure 121/42. HEENT: Both pupils are round and reacting. No conjunctival lesion. No lesion in the mouth. NECK: Supple. No JVP. No lymphadenopathy. LUNGS: Clear. HEART: S1, S2 regular. ABDOMEN: Soft, nontender. No organomegaly. EXTREMITIES: Edema present bilaterally. There is ulcer on the left big toe as well as black eschar on the left calcaneum. Dorsalis pedis is not palpable. SKIN: Rest of skin exam is unremarkable. NEUROLOGIC: The patient is alert, awake, and appropriate. No focal neurologic deficit. LABORATORY DATA: White count is 6.7, hemoglobin 8.2, platelets are 169,000. BUN and creatinine are 99 and 2.3. Arterial Doppler showed abnormal monophasic waveform. Venous ultrasound was negative. Chest x-ray, diffuse interstitial infiltrate/atelectasis or scarring. IMPRESSION: 1. Left calcaneal black eschar. The involvement of the calcaneum bone cannot be judged. MRI has been ordered. 2. Peripheral arterial disease. 3. Left big toe ulcer. 4. Obesity. 5. Diabetes. 6. Hypertension. 7. Congestive heart failure. 8. Renal insufficiency. RECOMMENDATIONS: We will start daptomycin and Zosyn. Await MRI results to see and then he may need further intervention and/or surgery. Thank you very much Dr. Bowens and Dr. Wynn for giving me opportunity to participate in this patient's care. CASSY/JESSIKA/ASH DR: CASSY/aline TID: [id number]
--- NOTE | 2020-12-23 17:10 | RAD ---
STUDY: MR LOW EXTREM, LEFT W/O CM INDICATION: Osteomyelitis evaluation. COMPARISON: None recently. TECHNIQUE: Multiplanar MR imaging of the left foot/ankle performed without the use of intravenous con trast. The [id number] is centered on the hindfoot with inclusion of the distal tibia/fibula, midfo ot and a small portion of the forefoot. FINDINGS: Mild edema-like signal at the dorsum of the calcaneus but without confluent T1 signal loss that would suggest osteomyelitis. Mild edema at a few additional locations is periarticular in location and on a degenerative basis such as along the medial aspect of the calcaneocuboid joint and mid subtalar andra nt. Chronic fragmentation of the anterior calcaneal process. Multifocal arthrosis to include the ankl e. Enthesopathy at the Achilles insertion. Hypertrophic Achilles tendinosis mainly over a length of 8 to 9 cm to include the insertion. No high- grade or full-thickness tear of the peroneal or flexor tendons. Grossly intact extensors. Mild perone al tenosynovitis. Degenerative heterogeneity to varying extent of the medial and lateral ankle ligaments. The spring li gament appears to remain at least partially intact. Edematous sinus tarsi. No space-occupying mass or fluid collection within the tarsal tunnel. Thickene d proximal plantar fascia namely the central band without adjacent calcaneal marrow edema but there i s ill-defined T1 hypointense and heterogeneous T2 hyperintense soft tissue signal along its undersurf nhan. Fatty infiltration of the intrinsic foot musculature. Scattered edema as well most notably involving the flexor digitorum brevis. Relatively diffuse subcutaneous edema. Ganglion cyst emanating from the lateral opening of the sinus tarsi. Small ankle joint effusion. IMPRESSION: 1. No signal changes that would suggest osteomyelitis throughout the imaged foot/ankle. Faint edema-l italo signal along the dorsum of the calcaneus but this may be reactive to insertional tendinopathy and again does not meet criteria to be considered infectious. Additionally no well delineated ulcer with a deep sinus tract is seen in this region. 2. Edematous subcutaneous tissues which is indeterminate for bland edema or cellulitis without contra st. The distinction would be better made clinically. Edematous intrinsic foot musculature most notabl y involving the flexor digitorum brevis is nonspecific and can be seen with long-standing diabetes wi th resultant denervation. 3. Ill-defined heterogeneous signal within the plantar foot deep to the central band of the plantar f ascia. No well-defined plantar ulcer seen at this location to suggest an infectious etiology. A manif estation of plantar fasciitis is possible. 4. Additional chronic/degenerative observations outlined in the body the report. Electronically signed by: HAM MELENDEZ MD (12/23/2020 5:07 PM) [id number]
[2020-12-23 19:00] VITALS: BP 146/66
--- NOTE | 2020-12-23 20:10 | NUR ---
pt in bed assessment completed vss poc explained call light in reach pt denied pain will resume care and continue to monitor pt.
[2020-12-23] MEDS: ATORVASTATIN CALCIUM 40 MG TABLET. PO SCH (20:30)
[2020-12-23] MEDS: INSULIN GLARGINE SYRINGE. SQ SCH (20:31)
[2020-12-23 22:37] VITALS: BP 114/44
[2020-12-24 02:28] VITALS: BP 119/62
[2020-12-24 07:00] VITALS: BP 139/63
[2020-12-24 07:45] LABS: HEMATOCRIT 23.6 % (39.0-53.0); HEMOGLOBIN 7.8 g/dL (13.0-17.5); RED BLOOD COUNT 2.64 x10^6/uL (4.30-5.70); RED CELL DISTRIBUTION WIDTH 18.1 % (11.5-14.5)
[2020-12-24 07:52] LABS: CREATININE 2.1 mg/dL (0.7-1.3); GFR 31.1; POTASSIUM 3.3 mmol/L (3.5-5.1)
[2020-12-24] MEDS: INSULIN LISPRO 300 UNITS/3 ML VIAL. SQ SCH ×3 (08:00→17:00)
[2020-12-24] MEDS: SERTRALINE 50 MG TABLET. PO SCH (08:54)
[2020-12-24] MEDS: FERROUS SULFATE ORAL 300 MG/5 ML SOLUTION. PO SCH (08:54)
[2020-12-24] MEDS: POTASSIUM CHLORIDE 20 MEQ TABLET.ER. PO SCH (08:55)
[2020-12-24] MEDS: ASCORBIC ACID 500 MG TABLET PO SCH ×2 (08:55→20:41)
[2020-12-24] MEDS: FAMOTIDINE 20 MG TABLET. PO SCH (08:55)
[2020-12-24] MEDS: METOPROLOL SUCC 24HR ER 25 MG TAB.ER.24H. PO SCH (08:55)
[2020-12-24] MEDS: hydrALAZINE 25 MG TABLET PO SCH ×3 (08:57→20:41)
[2020-12-24] MEDS: NYSTATIN TOPICAL POWDER 15GM BOTTLE. TP SCH ×2 (09:00→20:57)
--- NOTE | 2020-12-24 09:18 | PDOC ---
Infectious Disease Note Subjective Subjective pt is feeling good ROS ROS no n/v/d/sob Vital Sign Vital Signs Vital Signs Date Time Temp Pulse Resp B/P (MAP) Pulse Ox O2 Delivery O2 Flow Rate FiO2 12/24/20 08:57 64 139/63 12/24/20 07:00 97.6 17 93 Room Air 97.6 Physical Exam PHYSICAL EXAM GENERAL: Alert, oriented gentleman, not in any distress. VITAL SIGNS: stable HEENT: Both pupils are round and reacting. No conjunctival lesion. No lesion in the mouth. NECK: Supple. No JVP. No lymphadenopathy. LUNGS: Clear. HEART: S1, S2 regular. ABDOMEN: Soft, nontender. No organomegaly. EXTREMITIES: Edema present bilaterally. There is ulcer on the left big toe as well as black eschar on the left calcaneum. Dorsalis pedis is not palpable. SKIN: Rest of skin exam is unremarkable. NEUROLOGIC: The patient is alert, awake, and appropriate. No focal neurologic deficit. Labs Lab Laboratory Tests Test 12/23/20 12:00 12/23/20 12:16 12/23/20 18:18 12/23/20 20:05 Potassium Level 3.6 mmol/L (3.5-5.1) Magnesium Level 2.4 mg/dL (1.8-2.4) Glucose (Fingerstick) 106 mg/dL (70-99) 99 mg/dL (70-99) 165 mg/dL (70-99) Test 12/24/20 07:10 12/24/20 07:25 White Blood Count 7.0 x10^3/uL (4.0-11.0) Red Blood Count 2.64 x10^6/uL (4.30-5.70) Hemoglobin 7.8 g/dL (13.0-17.5) Hematocrit 23.6 % (39.0-53.0) Mean Corpuscular Volume 90 fL (79-100) Mean Corpuscular Hemoglobin 30 pg (25-35) Mean Corpuscular Hemoglobin Concent 33 g/dL (31-37) Red Cell Distribution Width 18.1 % (11.5-14.5) Platelet Count 174 x10^3/uL (140-400) Sodium Level 146 mmol/L (136-145) Potassium Level 3.3 mmol/L (3.5-5.1) Chloride Level 111 mmol/L (98-107) Carbon Dioxide Level 26 mmol/L (21-32) Anion Gap 9 (6-14) Blood Urea Nitrogen 93 mg/dL (8-26) Creatinine 2.1 mg/dL (0.7-1.3) Estimated GFR (Cockcroft-Gault) 31.1 Glucose Level 74 mg/dL (70-99) Calcium Level 8.0 mg/dL (8.5-10.1) Magnesium Level 2.0 mg/dL (1.8-2.4) Glucose (Fingerstick) 74 mg/dL (70-99) Objective Assessment IMPRESSION: 1. Left calcaneal black eschar. MRI neg for osteo 2. Peripheral arterial disease. 3. Left big toe ulcer. 4. Obesity. 5. Diabetes. 6. Hypertension. 7. Congestive heart failure. 8. Renal insufficiency. Plan Plan of Care cont antibiotics cont off load MIKE ROSA MD December 24, 2020 09:18
--- NOTE | 2020-12-24 09:23 | PDOC ---
PROGRESS NOTES Date of Service DATE: 12/24/20 TIME: 09:15 Subjective Subjective Patient seen and examined in room, no complaints. Objective Objective Vital Signs Date Time Temp Pulse Resp B/P (MAP) Pulse Ox O2 Delivery O2 Flow Rate FiO2 12/24/20 08:57 64 139/63 12/24/20 07:00 97.6 17 93 Room Air 97.6 Intake and Output 12/24/20 07:00 Intake Total 1160 ml Output Total 2850 ml Balance -1690 ml Intake Oral 1160 ml Output Urine Total 2850 ml Stool Total 0 ml # Voids 2 Physical Exam Physical Exam Awake and alert VSS, afebrile Right heel wound healing nicely Left first toe with small ulcer, clean on toe tip. Left heel with large dark eschar, no surrounding erythema or swelling. Assessment Assessment Problems Medical Problems: (1) Anemia Status: Acute (2) CHF exacerbation Status: Acute Plan Plan of Care 75 year old male with PVD and left heel ulcer with large dark eschar. MRI does not suggest osteomyelitis in the calcaneus Recommend angiogram with possible percutaneous intervention to improve distal flow. I discussed plan with [facility] [employer], will tentatively plan for Sunday. 12/27/2020 CKD with baseline Cr 1.8-2.0, currently 2.1 on Lasix gtt. Will continue to optimize over with plans for angiogram on Sunday. Patient will then need surgical debridement of left heel with possible left first toe amputation. Discussed plan with the patient and the risk with contrast and worsening renal failure. He expresses understanding and is willing to proceed. Comment Review of Relevant I have reviewed the following items mara (where applicable) has been applied. Labs Laboratory Tests Test 12/22/20 11:09 12/22/20 12:29 12/22/20 16:37 12/22/20 20:06 Glucose (Fingerstick) 85 mg/dL (70-99) 109 mg/dL (70-99) 111 mg/dL (70-99) Stool Occult Blood Positive (NEG) Test 12/23/20 04:05 12/23/20 08:19 12/23/20 12:00 12/23/20 12:16 Sodium Level 145 mmol/L (136-145) Potassium Level 2.9 mmol/L (3.5-5.1) 3.6 mmol/L (3.5-5.1) Chloride Level 109 mmol/L (98-107) Carbon Dioxide Level 25 mmol/L (21-32) Anion Gap 11 (6-14) Blood Urea Nitrogen 99 mg/dL (8-26) Creatinine 2.3 mg/dL (0.7-1.3) Estimated GFR (Cockcroft-Gault) 28.0 Glucose Level 72 mg/dL (70-99) Calcium Level 7.9 mg/dL (8.5-10.1) Glucose (Fingerstick) 66 mg/dL (70-99) 106 mg/dL (70-99) Magnesium Level 2.4 mg/dL (1.8-2.4) Test 12/23/20 18:18 12/23/20 20:05 12/24/20 07:10 12/24/20 07:25 Glucose (Fingerstick) 99 mg/dL (70-99) 165 mg/dL (70-99) 74 mg/dL (70-99) White Blood Count 7.0 x10^3/uL (4.0-11.0) Red Blood Count 2.64 x10^6/uL (4.30-5.70) Hemoglobin 7.8 g/dL (13.0-17.5) Hematocrit 23.6 % (39.0-53.0) Mean Corpuscular Volume 90 fL (79-100) Mean Corpuscular Hemoglobin 30 pg (25-35) Mean Corpuscular Hemoglobin Concent 33 g/dL (31-37) Red Cell Distribution Width 18.1 % (11.5-14.5) Platelet Count 174 x10^3/uL (140-400) Sodium Level 146 mmol/L (136-145) Potassium Level 3.3 mmol/L (3.5-5.1) Chloride Level 111 mmol/L (98-107) Carbon Dioxide Level 26 mmol/L (21-32) Anion Gap 9 (6-14) Blood Urea Nitrogen 93 mg/dL (8-26) Creatinine 2.1 mg/dL (0.7-1.3) Estimated GFR (Cockcroft-Gault) 31.1 Glucose Level 74 mg/dL (70-99) Calcium Level 8.0 mg/dL (8.5-10.1) Magnesium Level 2.0 mg/dL (1.8-2.4) Laboratory Tests Test 12/23/20 12:00 12/23/20 12:16 12/23/20 18:18 12/23/20 20:05 Potassium Level 3.6 mmol/L (3.5-5.1) Magnesium Level 2.4 mg/dL (1.8-2.4) Glucose (Fingerstick) 106 mg/dL (70-99) 99 mg/dL (70-99) 165 mg/dL (70-99) Test 12/24/20 07:10 12/24/20 07:25 White Blood Count 7.0 x10^3/uL (4.0-11.0) Red Blood Count 2.64 x10^6/uL (4.30-5.70) Hemoglobin 7.8 g/dL (13.0-17.5) Hematocrit 23.6 % (39.0-53.0) Mean Corpuscular Volume 90 fL (79-100) Mean Corpuscular Hemoglobin 30 pg (25-35) Mean Corpuscular Hemoglobin Concent 33 g/dL (31-37) Red Cell Distribution Width 18.1 % (11.5-14.5) Platelet Count 174 x10^3/uL (140-400) Sodium Level 146 mmol/L (136-145) Potassium Level 3.3 mmol/L (3.5-5.1) Chloride Level 111 mmol/L (98-107) Carbon Dioxide Level 26 mmol/L (21-32) Anion Gap 9 (6-14) Blood Urea Nitrogen 93 mg/dL (8-26) Creatinine 2.1 mg/dL (0.7-1.3) Estimated GFR (Cockcroft-Gault) 31.1 Glucose Level 74 mg/dL (70-99) Calcium Level 8.0 mg/dL (8.5-10.1) Magnesium Level 2.0 mg/dL (1.8-2.4) Glucose (Fingerstick) 74 mg/dL (70-99) Medications Current Medications Apixaban (Eliquis) 2.5 mg BID PO Last administered on 12/21/20at 09:00; Start 12/20/20 at 22:00; Stop 12/21/20 at 13:36; Status DC Atorvastatin Calcium (Lipitor) 40 mg HS PO Last administered on 12/23/20at 20:30; Start 12/20/20 at 22:00 Buspirone HCl (Buspar) 10 mg PRN DAILY PRN PO ANXIETY / AGITATION; Start 12/20/20 at 21:45 Famotidine (Pepcid) 20 mg DAILY PO Last administered on 12/24/20at 08:55; Start 12/21/20 at 09:00 Hydralazine HCl (Apresoline) 25 mg TID PO Last administered on 12/24/20at 08:57; Start 12/21/20 at 09:00 Insulin Glargine (Lantus Syringe) 15 unit QHS SQ Last administered on 12/23/20at 20:31; Start 12/20/20 at 22:00 Metoprolol Succinate (Toprol Xl) 25 mg DAILY PO Last administered on 12/24/20at 08:55; Start 12/21/20 at 09:00 Nystatin (Nystop) 1 daniela BID TP Last administered on 12/23/20at 20:33; Start 12/20/20 at 22:00 Sennosides (Senna) 8.6 mg PRN BID PRN PO CONSTIPATION 1ST CHOICE; Start 12/20/20 at 21:45; Stop 12/20/20 at 21:52; Status DC Sertraline HCl (Zoloft) 50 mg DAILY PO Last administered on 12/24/20at 08:54; Start 12/21/20 at 09:00 Ascorbic Acid (Vitamin C) 500 mg BID PO Last administered on 12/24/20at 08:55; Start 12/20/20 at 22:00 Furosemide (Lasix) 40 mg 1X ONCE IVP Last administered on 12/20/20at 23:03; Start 12/20/20 at 21:45; Stop 12/20/20 at 21:46; Status DC Sennosides (Senna) 17.2 mg PRN BID PRN PO CONSTIPATION, 2ND CHOICE Last administered on 12/21/20at 21:11; Start 12/20/20 at 21:45 Docusate Sodium (Colace) 100 mg PRN DAILY PRN PO HARD STOOLS; Start 12/20/20 at 21:45 Ondansetron HCl (Zofran) 4 mg PRN Q6HRS PRN IVP NAUSEA/VOMITING; Start 12/20/20 at 21:45 Insulin Human Lispro (HumaLOG) 0-7 UNITS TIDWMEALS SQ ; Start 12/21/20 at 08:00 Dextrose (Dextrose 50%-Water Syringe) 12.5 gm PRN Q15MIN PRN IV SEE COMMENTS; Start 12/20/20 at 21:45 Acetaminophen (Tylenol) 650 mg PRN Q4HRS PRN PO TEMP OVER 100.4F OR MILD PAIN Last administered on 12/20/20at 23:02; Start 12/20/20 at 21:45 Furosemide 100 mg/ Sodium Chloride 100 ml @ 0 mls/hr CONT PRN IV SEE I/O RECORD Last administered on 12/23/20at 20:30; Start 12/21/20 at 11:30 Potassium Chloride (Klor-Con) 20 meq 1X ONCE PO Last administered on 12/21/20at 14:02; Start 12/21/20 at 12:15; Stop 12/21/20 at 12:16; Status DC Potassium Chloride (Klor-Con) 40 meq 1X ONCE PO Last administered on 12/22/20at 08:39; Start 12/22/20 at 08:30; Stop 12/22/20 at 08:31; Status DC Ferrous Sulfate (Iron Oral Solution) 300 mg BIDWMEALS PO Last administered on 12/24/20at 08:54; Start 12/22/20 at 17:00 Polyethylene Glycol (miraLAX PACKET) 17 gm PRN DAILY PRN PO CONSTIPATION, 1ST CHOICE; Start 12/22/20 at 12:00 Potassium Chloride (Klor-Con) 40 meq 1X ONCE PO Last administered on 12/23/20at 06:54; Start 12/23/20 at 07:00; Stop 12/23/20 at 07:01; Status DC Potassium Chloride (Klor-Con) 40 meq 1X ONCE PO Last administered on 12/23/20at 08:54; Start 12/23/20 at 09:00; Stop 12/23/20 at 09:01; Status DC Potassium Chloride (Klor-Con) 40 meq DAILY PO Last administered on 12/24/20at 08:55; Start 12/24/20 at 09:00 Active Scripts Active Lantus (Insulin Glargine,Hum.rec.anlog) 100 Unit/1 Ml Vial 15 Unit SQ QHS 30 Days Famotidine 20 Mg Tablet 20 Mg PO DAILY 30 Days Acetaminophen Supp (Acetaminophen) 650 Mg Supp.rect 650 Mg RI PRN Q4HRS PRN 30 Days Hydralazine Hcl 25 Mg Tablet 25 Mg PO TID 30 Days Reported Tylenol (Acetaminophen) 325 Mg Tablet 1-2 Tab PO QID Vitamin C (Ascorbic Acid) 500 Mg Capsule 500 Mg PO BID Senokot (Sennosides) 8.6 Mg Tablet 1 Tab PO BID PRN 20 Days Potassium Chloride 20 Meq Tablet.er 20 Meq PO DAILY Nystatin 15 Gm Powder 1 Daniela TP BID 7 Days apply to affected area(s) Lasix (Furosemide) 40 Mg Tablet 40 Mg PO BIDBFRMEAL Zoloft (Sertraline Hcl) 50 Mg Tablet 50 Mg PO DAILY Metoprolol Succinate ( Xl ) (Metoprolol Succinate) 25 Mg Tab.er.24h 25 Mg PO DAILY Eliquis (Apixaban) 5 Mg Tablet 2.5 Mg PO BID Slow Release Iron (Ferrous Sulfate) 160 Mg Tablet.er 160 Mg PO DAILY Buspirone Hcl 10 Mg Tablet 1 Tab PO PRN DAILY PRN Atorvastatin Calcium 40 Mg Tablet 40 Mg PO HS Vitals/I & O Vital Sign - Last 24 Hours 12/23/20 12/23/20 12/23/20 12/23/20 11:00 13:53 14:00 19:00 Temp 97.8 98.0 97.8 98.0 Pulse 60 69 Resp 16 18 B/P (MAP) 132/67 (88) 165/73 165/73 (103) 146/66 (92) Pulse Ox 93 95 O2 Delivery Room Air Room Air 12/23/20 12/23/20 12/23/20 12/24/20 19:50 20:30 22:37 02:28 Temp 97.8 97.8 97.8 97.8 Pulse 69 71 75 Resp 17 17 B/P (MAP) 146/66 114/44 (67) 119/62 (81) Pulse Ox 95 96 O2 Delivery Room Air Room Air Room Air 12/24/20 12/24/20 12/24/20 07:00 08:55 08:57 Temp 97.6 97.6 Pulse 64 64 64 Resp 17 B/P (MAP) 139/63 (88) 139/63 139/63 Pulse Ox 93 O2 Delivery Room Air Intake and Output 12/23/20 12/23/20 12/24/20 15:00 23:00 07:00 Intake Total 700 ml 360 ml 100 ml Output Total 1800 ml 1050 ml Balance 700 ml -1440 ml -950 ml Justifications for Admission Other Justification CHF exacerbation CHAS [employer]ERNAL [employer] 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
--- NOTE | 2020-12-24 10:41 | PDOC ---
DATE OF SERVICE DATE: 12/24/20 TIME: 10:40 SUBJECTIVE ROS Stable , sitting up in chair, states feeling better OBJECTIVE Vital Signs Vital Signs Date Time Temp Pulse Resp B/P (MAP) Pulse Ox O2 Delivery O2 Flow Rate FiO2 12/24/20 08:57 64 139/63 12/24/20 08:00 Room Air 12/24/20 07:00 97.6 17 93 97.6 I & 0 Intake and Output 12/24/20 07:00 Intake Total 1160 ml Output Total 2850 ml Balance -1690 ml Intake Oral 1160 ml Output Urine Total 2850 ml Stool Total 0 ml # Voids 2 PHYSICAL EXAM Physical Exam General: NAD HEENT: Atraumatic, OM moist Neck supple Lungs: Clear to auscultation Heart: Bradycardic, ESM aortic) Abdomen: Soft, NT Extremities: Bilat LE edema 2-3 + a Neuro: grossly normal Psych/Mental Status: Mood NL lowery + , No cva or SP tenderness Skin No rash DIAGNOSIS/ASSESSMENT Assessment & Plan REBECCA on CKD - Cardiorenal , stable Non Oliguric,improved uop with lasix gtt Supportive care Strict I/O, avoid nephrotoxins Discussed risk of MASTER with angiogram /worsening renal function/Possibility of dialysis with patient CKD stage 3B/ 4 - Follows with Dr. Roca, baseline Cr per [facility] records prior to previous admission 1.8-2.0 but 2.3 to 2.5 since REBECCA recently in November 2020 HypoKalemia - 2/2 Diuretics, Replace as indicated Hx of Acute blood loss anemia secondary to GIB. s/p cauterization of bleeding antral ulcer by GI team and PRBC in November . Hgb this admission low as well - defer to GI Renal calculus - RK- Possible intrarenal stones. LK Possible intrarenal stones to include a 13 mm focus of increased echogenicity at the upper pole.No e/o obstruction reported . Pt denies any past history Worsening LE edema- Bilat LE and anasarca- Wt up compared to his recent admission . continue Lasix gtt , dw Cardiology, Monitor closely ,daily standing weight(if pt able to stand ) , Left heel wound with dry gangrene and 1st toe ulcer- Vascular Recommend MRI and Possible Angio. Risk ok MASTER may require Dialysis - with contrast 2/2 CKD 4, requiring Lasix , may not tolerate IVF- Weigh Risk and benefit of the Contrast study- defer to Vascular plans for angiogram on Sunday. Patient will then need surgical debridement with possible left first toe amputation. Acute on chronic diastolic CHF; Echo 07/25 with preserved LV systolic function Anemia with h/o GIB with cauterization of bleeding antral ulcer CAD; s/p PCI/RHEA to LAD in 2018. clinically stable, CP free. PAD s/p past orbital atherectomy/[employer]GER to right posterior tibial artery. Permanent AFIB; rate controlled on BB SSS; s/p PPM ([employer]) Hypertension; controlled Valvular disease; mild to moderate aortic stenosis COMMENT/RELEVANT DATA Meds Current Medications Medications (Trade) Dose Ordered Sig/Redd Start Time Stop Time Status Last Admin Dose Admin Acetaminophen (Tylenol) 650 mg PRN Q4HRS PRN 12/20/20 21:45 12/20/20 23:02 650 MG Apixaban (Eliquis) 2.5 mg BID 12/20/20 22:00 12/21/20 13:36 DC 12/21/20 09:00 2.5 MG Ascorbic Acid (Vitamin C) 500 mg BID 12/20/20 22:00 12/24/20 08:55 500 MG Atorvastatin Calcium (Lipitor) 40 mg HS 12/20/20 22:00 12/23/20 20:30 40 MG Buspirone HCl (Buspar) 10 mg PRN DAILY PRN 12/20/20 21:45 Dextrose (Dextrose 50%-Water Syringe) 12.5 gm PRN Q15MIN PRN 12/20/20 21:45 Docusate Sodium (Colace) 100 mg PRN DAILY PRN 12/20/20 21:45 Famotidine (Pepcid) 20 mg DAILY 12/21/20 09:00 12/24/20 08:55 20 MG Ferrous Sulfate (Iron Oral Solution) 300 mg BIDWMEALS 12/22/20 17:00 12/24/20 08:54 300 MG Furosemide (Lasix) 40 mg 1X ONCE 12/20/20 21:45 12/20/20 21:46 DC 12/20/20 23:03 40 MG Furosemide 100 mg/ Sodium Chloride 100 ml @ 0 mls/hr CONT PRN 12/21/20 11:30 12/23/20 20:30 10 MLS/HR Hydralazine HCl (Apresoline) 25 mg TID 12/21/20 09:00 12/24/20 08:57 25 MG Insulin Glargine (Lantus Syringe) 15 unit QHS 12/20/20 22:00 12/23/20 20:31 15 UNIT Insulin Human Lispro (HumaLOG) 0-7 UNITS TIDWMEALS 12/21/20 08:00 Metoprolol Succinate (Toprol Xl) 25 mg DAILY 12/21/20 09:00 12/24/20 08:55 25 MG Nystatin (Nystop) 1 luna BID 12/20/20 22:00 12/23/20 20:33 1 LUNA Ondansetron HCl (Zofran) 4 mg PRN Q6HRS PRN 12/20/20 21:45 Polyethylene Glycol (miraLAX PACKET) 17 gm PRN DAILY PRN 12/22/20 12:00 Potassium Chloride (Klor-Con) 40 meq DAILY 12/24/20 09:00 12/24/20 08:55 40 MEQ Sennosides (Senna) 17.2 mg PRN BID PRN 12/20/20 21:45 12/21/20 21:11 17.2 MG Sertraline HCl (Zoloft) 50 mg DAILY 12/21/20 09:00 12/24/20 08:54 50 MG Lab Laboratory Tests Test 12/23/20 12:00 12/23/20 12:16 12/23/20 18:18 12/23/20 20:05 Potassium Level 3.6 mmol/L (3.5-5.1) Magnesium Level 2.4 mg/dL (1.8-2.4) Glucose (Fingerstick) 106 mg/dL (70-99) 99 mg/dL (70-99) 165 mg/dL (70-99) Test 12/24/20 07:10 12/24/20 07:25 White Blood Count 7.0 x10^3/uL (4.0-11.0) Red Blood Count 2.64 x10^6/uL (4.30-5.70) Hemoglobin 7.8 g/dL (13.0-17.5) Hematocrit 23.6 % (39.0-53.0) Mean Corpuscular Volume 90 fL (79-100) Mean Corpuscular Hemoglobin 30 pg (25-35) Mean Corpuscular Hemoglobin Concent 33 g/dL (31-37) Red Cell Distribution Width 18.1 % (11.5-14.5) Platelet Count 174 x10^3/uL (140-400) Sodium Level 146 mmol/L (136-145) Potassium Level 3.3 mmol/L (3.5-5.1) Chloride Level 111 mmol/L (98-107) Carbon Dioxide Level 26 mmol/L (21-32) Anion Gap 9 (6-14) Blood Urea Nitrogen 93 mg/dL (8-26) Creatinine 2.1 mg/dL (0.7-1.3) Estimated GFR (Cockcroft-Gault) 31.1 Glucose Level 74 mg/dL (70-99) Calcium Level 8.0 mg/dL (8.5-10.1) Magnesium Level 2.0 mg/dL (1.8-2.4) Glucose (Fingerstick) 74 mg/dL (70-99) Results All relevant outside records, renal labs, imaging studies, telemetry/EKG's were reviewed. Justicifation of Admission Dx: Justifications for Admission: Justification of Admission Dx: Yes BEATRIZ IBARRA MD December 24, 2020 10:41
[2020-12-24 11:00] VITALS: BP_SYST 143; BP_SYST 157; BP_DIAS 65; BP_DIAS 71
--- NOTE | 2020-12-24 11:06 | PDOC ---
Date of Service: DATE: 12/24/20 TIME: 11:03 Subjective: Subjective: No GI complaints. Objective: Objective: No GI concerns per nurse. Possible angiogram Sunday and debridement Sunday. Vital Signs: Vital Signs Date Time Temp Pulse Resp B/P (MAP) Pulse Ox O2 Delivery O2 Flow Rate FiO2 12/24/20 08:57 64 139/63 12/24/20 08:00 Room Air 12/24/20 07:00 97.6 17 93 97.6 Labs: Laboratory Tests Test 12/23/20 12:00 12/23/20 12:16 12/23/20 18:18 12/23/20 20:05 Potassium Level 3.6 mmol/L Magnesium Level 2.4 mg/dL Glucose (Fingerstick) 106 mg/dL 99 mg/dL 165 mg/dL Test 12/24/20 07:10 12/24/20 07:25 White Blood Count 7.0 x10^3/uL Red Blood Count 2.64 x10^6/uL Hemoglobin 7.8 g/dL Hematocrit 23.6 % Mean Corpuscular Volume 90 fL Mean Corpuscular Hemoglobin 30 pg Mean Corpuscular Hemoglobin Concent 33 g/dL Red Cell Distribution Width 18.1 % Platelet Count 174 x10^3/uL Sodium Level 146 mmol/L Potassium Level 3.3 mmol/L Chloride Level 111 mmol/L Carbon Dioxide Level 26 mmol/L Anion Gap 9 Blood Urea Nitrogen 93 mg/dL Creatinine 2.1 mg/dL Estimated GFR (Cockcroft-Gault) 31.1 Glucose Level 74 mg/dL Calcium Level 8.0 mg/dL Magnesium Level 2.0 mg/dL Glucose (Fingerstick) 74 mg/dL Imaging: LE MRI IMPRESSION: 1. No signal changes that would suggest osteomyelitis throughout the imaged foot/ankle. Faint edema-like signal along the dorsum of the calcaneus but this may be reactive to insertional tendinopathy and again does not meet criteria to be considered infectious. Additionally no well delineated ulcer with a deep sinus tract is seen in this region. 2. Edematous subcutaneous tissues which is indeterminate for bland edema or cellulitis without contrast. The distinction would be better made clinically. Edematous intrinsic foot musculature most notably involving the flexor digitorum brevis is nonspecific and can be seen with long-standing diabetes with resultant denervation. 3. Ill-defined heterogeneous signal within the plantar foot deep to the central band of the plantar fascia. No well-defined plantar ulcer seen at this location to suggest an infectious etiology. A manifestation of plantar fasciitis is possible. 4. Additional chronic/degenerative observations outlined in the body the report. PE: GEN: NAD LUNGS: CTAB HEART: RRR ABD: NABS, S/ND/NT NEURO/PSYCH: A & O 3 A/P: PAD w/ wounds, CHF, CKD Chronic anemia, +Hemoccult - s/p endotherapy on EGD 11/2020 - on PO acid-brick carrier CAD, A Fib - ASA and Eliquis held -- No obvious GI bleeding. Continue iron and acid-brick carrier. Can pursue outpt colonoscopy later on. Justicifation of Admission Dx: Justifications for Admission: Justification of Admission Dx: Yes FABBY ROBERTSON December 24, 2020 11:06
--- NOTE | 2020-12-24 11:31 | PDOC ---
[employer] PROGRESS NOTE Date of Service DOS: DATE: 12/24/20 TIME: 11:27 Chief Complaint Chief Complaint Acute volume overload Acute on chronic CHF exacerbation Hypokalemia History of chronic kidney disease Normocytic anemia, possible chronic GI blood loss with EGD showing antral gastric ulcer Left lower extremity wound ulcer with dry gangrene Morbid obesity, OHS, suspect ROBB Severe protein malnutrition History of diabetes mellitus type 2 History of peripheral vascular disease History of atrial fibrillation History of bradycardia status post pacemaker placement History of peripheral vascular disease Hypertension Dyslipidemia Admit to medicine for further management Pending MRI of lower extremity today Appreciate vascular surgery recommendationwe will obtain MRI to determine level of possible amputation ID consulted IV Lasix drip started Strict I's and O's Nephrology consult Cardiology consult Trend hemoglobin if less than 7 then transfuse 1 unit Eliquis for DVT prophylaxis Pepcid GI prophylaxis ADA diet Full code Discussed with RN and SW Disposition inpatient management as above Surrogate decision maker is Phuong Mathis History of Present Illness History of Present Illness 12/24/2020 Patient was seen and examined in room today. Awaiting plan from vascular/cardio on possible PCI/angio of LLE. Case discussed with RN and case management. Chart and specialist notes reviewed. 12/23/2020 No acute events overnight. Patient seen and examined bedside. Pedal edema has improved total of -2.3 L of urine output. Low potassium today will replace IV and p.o. Creatinine has also improved. Pending MRI versus CT of left lower extremity. Patient's chart, labs, images were reviewed and discussed with RN 12/22/2020 No acute events overnight patient seen and examined bedside. No significant weight loss with Lasix drip. Will defer further fluid offloading with cardiology. Pending MRI and further vascular surgery recommendations for lower extremity foot ulcer. Patient's chart, labs, images were reviewed and discussed with RN 12/21/2020 No acute events overnight. Patient has adequate urine output and feels less fluid overload. Documented -580 cc. Patient's chart, labs, images were reviewed and discussed with RN 75 year old male who was sent here from [facility] for evaluation due to bilateral lower extremity swelling, worsening renal function. He has history of CHF, history of chronic renal failure. 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 Patient denies any chest pain, denies any cough or fever. Patient does have trouble breathing with exertion. Patient says they told him to come here to be admitted so they can do colonoscopy because he has been anemic as well. Patient denies any rectal bleeding. His weight today is 147 kg Upon chart review patient was seen in November 04 09/12/2020 for GI bleed.. Eliquis was actually restarted on 11/09/2020. And also had a pacemaker placed on 11/09/2020 and tolerated procedure well. Patient also does follow-up with Dr. Chau with nephrology and his baseline creatinine appears to be between 1.8-2.0. Vitals/I&O Vitals/I&O: Vital Signs Date Time Temp Pulse Resp B/P (MAP) Pulse Ox O2 Delivery O2 Flow Rate FiO2 12/24/20 08:57 64 139/63 12/24/20 08:00 Room Air 12/24/20 07:00 97.6 17 93 97.6 I & O 0 12/23/20 12/23/20 12/24/20 15:00 23:00 07:00 Intake Total 700 ml 360 ml 100 ml Output Total 1800 ml 1050 ml Balance 700 ml -1440 ml -950 ml Physical Exam Physical Exam: GENERAL: Alert, oriented gentleman, not in any distress. VITAL SIGNS: stable HEENT: Both pupils are round and reacting. No conjunctival lesion. No lesion in the mouth. NECK: Supple. No JVP. No lymphadenopathy. LUNGS: Clear. HEART: S1, S2 regular. ABDOMEN: Soft, nontender. No organomegaly. EXTREMITIES: Edema present bilaterally. There is ulcer on the left big toe as well as black eschar on the left calcaneum. Dorsalis pedis is not palpable. SKIN: Rest of skin exam is unremarkable. NEUROLOGIC: The patient is alert, awake, and appropriate. No focal neurologic deficit. General: Alert, Oriented X3, Cooperative, No acute distress Heart: Other (2/6 sysotlic murmur, IRRR- tele AFIB. int V pacing ) Lungs: Clear, Other Abdomen: Soft Extremities: Other (2-3+ bilateral LE edema, anasarca ) Skin: No significant lesion Labs Labs: Laboratory Tests Test 12/23/20 12:00 12/23/20 12:16 12/23/20 18:18 12/23/20 20:05 Potassium Level 3.6 mmol/L (3.5-5.1) Magnesium Level 2.4 mg/dL (1.8-2.4) Glucose (Fingerstick) 106 mg/dL (70-99) 99 mg/dL (70-99) 165 mg/dL (70-99) Test 12/24/20 07:10 12/24/20 07:25 White Blood Count 7.0 x10^3/uL (4.0-11.0) Red Blood Count 2.64 x10^6/uL (4.30-5.70) Hemoglobin 7.8 g/dL (13.0-17.5) Hematocrit 23.6 % (39.0-53.0) Mean Corpuscular Volume 90 fL (79-100) Mean Corpuscular Hemoglobin 30 pg (25-35) Mean Corpuscular Hemoglobin Concent 33 g/dL (31-37) Red Cell Distribution Width 18.1 % (11.5-14.5) Platelet Count 174 x10^3/uL (140-400) Sodium Level 146 mmol/L (136-145) Potassium Level 3.3 mmol/L (3.5-5.1) Chloride Level 111 mmol/L (98-107) Carbon Dioxide Level 26 mmol/L (21-32) Anion Gap 9 (6-14) Blood Urea Nitrogen 93 mg/dL (8-26) Creatinine 2.1 mg/dL (0.7-1.3) Estimated GFR (Cockcroft-Gault) 31.1 Glucose Level 74 mg/dL (70-99) Calcium Level 8.0 mg/dL (8.5-10.1) Magnesium Level 2.0 mg/dL (1.8-2.4) Glucose (Fingerstick) 74 mg/dL (70-99) Review of Systems Review of Systems: NO headaches No loss of vision Assessment and Plan Assessmemt and Plan Acute volume overload Acute on chronic CHF exacerbation Hypokalemia History of chronic kidney disease Normocytic anemia, possible chronic GI blood loss with EGD showing antral gastric ulcer Positive Hemoccult Left lower extremity wound ulcer with dry gangrene Morbid obesity, OHS, suspect ROBB Severe protein malnutrition History of diabetes mellitus type 2 History of peripheral vascular disease History of atrial fibrillation History of bradycardia status post pacemaker placement History of peripheral vascular disease Hypertension Dyslipidemia Plan Left Calcaneal wound- vascular/cardio consulting on possible PCI Abx per ID Trend hemoglobins- GI consulted for positive FOST Pepcid GI prophylaxis Hold OAC- per cardio ADA diet- hold NPO as needed for procedures Full code Cardiac monitoring Wound care Appreciate subspecialist input Discharge back to [facility] as recommend Surrogate decision maker is Phuong Mathis Comment Review of Relevant I have reviewed the following items mara (where applicable) has been applied. Medications: Current Medications Medications (Trade) Dose Ordered Sig/Redd Route PRN Reason Start Time Stop Time Status Last Admin Dose Admin Potassium Chloride (Klor-Con) 40 meq DAILY PO 12/24/20 09:00 12/24/20 08:55 Justifications for Admission Other Justification CHF exacerbation BETO WILSON K III DO December 24, 2020 11:31
[2020-12-24] MEDS: FUROSEMIDE INJ 100 MG in IV NORMAL SALINE 100ML 100 ML IV PRN ×3 (12:32→22:35)
--- NOTE | 2020-12-24 14:39 | PDOC ---
FRAN COLMENARES VARNISHER APPRENTICE 12/24/20 1439: CARDIO Progress Notes Date and Time Date of Service 12/24/2020 Time of Evaluation 1300 Subjective Subjective: No Chest Pain, No shortness of breath, No Palpitations Vitals Vitals Vital Signs Date Time Temp Pulse Resp B/P (MAP) Pulse Ox O2 Delivery O2 Flow Rate FiO2 12/24/20 13:21 64 139/63 12/24/20 08:00 Room Air 12/24/20 07:00 97.6 17 93 97.6 Weight Weight [ ] Input and Output Intake and Output Intake and Output 12/24/20 07:00 Intake Total 1160 ml Output Total 2850 ml Balance -1690 ml Intake Oral 1160 ml Output Urine Total 2850 ml Stool Total 0 ml # Voids 2 Laboratory Labs Laboratory Tests Test 12/23/20 18:18 12/23/20 20:05 12/24/20 07:10 12/24/20 07:25 Glucose (Fingerstick) 99 mg/dL (70-99) 165 mg/dL (70-99) 74 mg/dL (70-99) White Blood Count 7.0 x10^3/uL (4.0-11.0) Red Blood Count 2.64 x10^6/uL (4.30-5.70) Hemoglobin 7.8 g/dL (13.0-17.5) Hematocrit 23.6 % (39.0-53.0) Mean Corpuscular Volume 90 fL (79-100) Mean Corpuscular Hemoglobin 30 pg (25-35) Mean Corpuscular Hemoglobin Concent 33 g/dL (31-37) Red Cell Distribution Width 18.1 % (11.5-14.5) Platelet Count 174 x10^3/uL (140-400) Sodium Level 146 mmol/L (136-145) Potassium Level 3.3 mmol/L (3.5-5.1) Chloride Level 111 mmol/L (98-107) Carbon Dioxide Level 26 mmol/L (21-32) Anion Gap 9 (6-14) Blood Urea Nitrogen 93 mg/dL (8-26) Creatinine 2.1 mg/dL (0.7-1.3) Estimated GFR (Cockcroft-Gault) 31.1 Glucose Level 74 mg/dL (70-99) Calcium Level 8.0 mg/dL (8.5-10.1) Magnesium Level 2.0 mg/dL (1.8-2.4) Test 12/24/20 11:33 Glucose (Fingerstick) 117 mg/dL (70-99) Physical Exam HEENT: Neck Supple W Full Motion Chest: Symmetric LUNGS: Other (diminished ) Heart: irregularly irregular (AFIB) Abdomen: Soft N/T, Other (anasarca) Extremities: Other (ansarca, multiple toe and heel wounds with drsg intact ) Neurology: alert, oriented, follow commands Assessment Assessment 1. Worsening LE edema, anasarca: improving 2. Acute on chronic diastolic CHF; Echo 07/25 with preserved LV systolic function. on Lasix gtt. UOP better 3. Anemia with h/o GIB with cauterization of bleeding antral ulcer. s/p transfusion. no obvious bleeding. Hgb at 7.8 4. CAD; s/p PCI/RHEA to LAD in 2018. clinically stable, CP free. 5. PAD s/p past orbital atherectomy/CRIBBING SETTER to right posterior tibial artery. LE wounds present. Duplex with monophasic waveforms throughout LLE. Vascular following. 6. Permanent AFIB; rate controlled on BB 7. SSS; s/p PPM ([employer]). intermittent v-pacing. recent device check with normal function 8. Hypertension; controlled 9. Hyperlipidemia; statin 10. Diabetes, II; as per IM 11. REBECCA on CKD; Cr stable with diuresis 12. Valvular disease; mild to moderate aortic stenosis 13. Protein calorie malnutrition 14. Hypokalemia Recommendations Continue Lasix gtt. Optimize renal function over the weekend, nephrology following. Replace K Plan for aortogram with LLE runoff on Sunday with possible CRIBBING SETTER. Vascular planning for surgery mid next week Secondary prevention Metoprolol for rate control OAC on hold with anemia, recent GIB Local wound care Supportive care Justicifation of Admission Dx: Justifications for Admission: Justification of Admission Dx: Yes DICK LAZO MD 12/24/202121: CARDIO Progress Notes Assessment Assessment Patient seen and examined. Agree with HOST's assessment and plan. Continue Lasix drip for acute on chronic diastolic heart failure. Nephrology following Permanent atrial fibrillation rate controlled. Hold Eliquis secondary to anemia and his known history of peptic ulcer disease. CAD status clinically stable. SSS s/p PPM with recent device check showing normal function. Agree with aortogram and possible CRIBBING SETTER on sunday FRAN COLMENARES APRN December 24, 2020 14:39 DICK LAZO MD December 24, 2020 21:22
[2020-12-24 15:00] VITALS: BP 157/71
[2020-12-24] MEDS: FERROUS SULFATE 325 MG TABLET. PO SCH (17:28)
[2020-12-24 19:40] VITALS: BP 138/81
[2020-12-24] MEDS: ATORVASTATIN CALCIUM 40 MG TABLET. PO SCH (20:41)
[2020-12-24] MEDS: INSULIN GLARGINE SYRINGE. SQ SCH (20:43)
[2020-12-24 23:03] VITALS: BP 155/46
[2020-12-25 03:50] VITALS: BP 142/59
[2020-12-25 07:00] VITALS: BP 160/70
--- NOTE | 2020-12-25 07:22 | PDOC ---
Infectious Disease Note Subjective Subjective pt is feeling good No F/c/s/N/v/d/SOA. heels ok ROS ROS o/w neg Vital Sign Vital Signs Vital Signs Date Time Temp Pulse Resp B/P (MAP) Pulse Ox O2 Delivery O2 Flow Rate FiO2 12/25/20 03:50 97.8 74 20 142/59 (86) 94 Room Air 97.8 Physical Exam PHYSICAL EXAM GENERAL: Alert, oriented gentleman, not in any distress. HEENT: Both pupils are round and reacting. No conjunctival lesion. No lesion in the mouth. NECK: Supple. No JVP. No lymphadenopathy. LUNGS: Clear. HEART: S1, S2 regular. ABDOMEN: Soft, nontender. No organomegaly. Obeses EXTREMITIES: Edema present bilaterally. There is ulcer on the left big toe as well as black eschar on the left calcaneum. R heel with mild wound/ Mild cellullitis on LLE. Dorsalis pedis is not palpable. SKIN: Rest of skin exam is unremarkable. NEUROLOGIC: The patient is alert, awake, and appropriate. No focal neurologic deficit. Labs Lab Laboratory Tests Test 12/24/20 07:25 12/24/20 11:33 12/24/20 16:57 12/24/20 19:58 Glucose (Fingerstick) 74 mg/dL (70-99) 117 mg/dL (70-99) 90 mg/dL (70-99) 129 mg/dL (70-99) Objective Assessment 1. Left calcaneal black eschar. MRI neg for osteo R heel wound 2. Peripheral arterial disease. 3. Left big toe ulcer. 4. Obesity. 5. Diabetes. 6. Hypertension. 7. Congestive heart failure. 8. Renal insufficiency. 9. Sulfa allergy Plan Plan of Care Begin Augmentin and Zyvox and monitor cont off load Wound care per wound team BIPIN JULIEN MD December 25, 2020 07:21
[2020-12-25 07:45] LABS: CALCIUM 8.2 mg/dL (8.5-10.1); CREATININE 2.1 mg/dL (0.7-1.3); GFR 31.1; POTASSIUM 3.4 mmol/L (3.5-5.1)
[2020-12-25] MEDS: INSULIN LISPRO 300 UNITS/3 ML VIAL. SQ SCH ×3 (08:00→17:00)
[2020-12-25 08:32] LABS: BASO # 0.1 x10^3/uL (0.0-0.2); BASO % 1 % (0-3); EOS # 0.9 x10^3/uL (0.0-0.7); EOS % 13 % (0-3); HEMATOCRIT 25.7 % (39.0-53.0); HEMOGLOBIN 8.3 g/dL (13.0-17.5); LYMPH # 1.4 x10^3/uL (1.0-4.8); LYMPH % 21 % (24-48); MEAN CORPUSCULAR HEMOGLOBIN 29 pg (25-35); MEAN CORPUSCULAR HGB CONC 32 g/dL (31-37); MEAN CORPUSCULAR VOLUME 91 fL (79-100); MONO # 0.7 x10^3/uL (0.0-1.1); MONO % 10 % (0-9); NEUT # 3.8 x10^3/uL (1.8-7.7); NEUT % 55 % (31-73); PLATELET COUNT 176 x10^3/uL (140-400); RED BLOOD COUNT 2.82 x10^6/uL (4.30-5.70); RED CELL DISTRIBUTION WIDTH 18.8 % (11.5-14.5); WHITE BLOOD COUNT 6.9 x10^3/uL (4.0-11.0)
--- NOTE | 2020-12-25 09:00 | PDOC ---
CARDIOLOGY PROGRESS NOTE SUBJECTIVE: Doing well this morning Denies any pain. States legs feel ok. OBJECTIVE: Vital Signs/I&O: Vital Signs Date Time Temp Pulse Resp B/P (MAP) Pulse Ox O2 Delivery O2 Flow Rate FiO2 12/25/20 07:00 97.8 63 20 160/70 (100) 92 Room Air 97.8 I & O 12/24/20 12/24/20 12/25/20 15:00 23:00 07:00 Intake Total 660 ml 200 ml 100 ml Output Total 900 ml 775 ml 1400 ml Balance -240 ml -575 ml -1300 ml Objective: On exam he is morbidly obese He has regular rhythm Bilateral groin pulses are difficult to palpate due to pannus Bilateral 1+ edema of the LE persists. No focal neurologic deficits Skin has mild erythema. CURRENT MEDICATIONS: Toprol XL, Hydralazine and Lasix gtt. DIAGNOSTIC TESTING: Labs reviewed. Labs: Laboratory Tests 12/25/20 06:30 Laboratory Tests Test 12/24/20 11:33 12/24/20 16:57 12/24/20 19:58 12/25/20 06:30 Glucose (Fingerstick) 117 mg/dL (70-99) H 90 mg/dL (70-99) 129 mg/dL (70-99) H White Blood Count 6.9 x10^3/uL (4.0-11.0) Red Blood Count 2.82 x10^6/uL (4.30-5.70) L Hemoglobin 8.3 g/dL (13.0-17.5) L Hematocrit 25.7 % (39.0-53.0) L Mean Corpuscular Volume 91 fL (79-100) Mean Corpuscular Hemoglobin 29 pg (25-35) Mean Corpuscular Hemoglobin Concent 32 g/dL (31-37) Red Cell Distribution Width 18.8 % (11.5-14.5) H Platelet Count 176 x10^3/uL (140-400) Neutrophils (%) (Auto) 55 % (31-73) Lymphocytes (%) (Auto) 21 % (24-48) L Monocytes (%) (Auto) 10 % (0-9) H Eosinophils (%) (Auto) 13 % (0-3) H Basophils (%) (Auto) 1 % (0-3) Neutrophils # (Auto) 3.8 x10^3/uL (1.8-7.7) Lymphocytes # (Auto) 1.4 x10^3/uL (1.0-4.8) Monocytes # (Auto) 0.7 x10^3/uL (0.0-1.1) Eosinophils # (Auto) 0.9 x10^3/uL (0.0-0.7) H Basophils # (Auto) 0.1 x10^3/uL (0.0-0.2) Sodium Level 146 mmol/L (136-145) H Potassium Level 3.4 mmol/L (3.5-5.1) L Chloride Level 110 mmol/L (98-107) H Carbon Dioxide Level 26 mmol/L (21-32) Anion Gap 10 (6-14) Blood Urea Nitrogen 86 mg/dL (8-26) H Creatinine 2.1 mg/dL (0.7-1.3) H Estimated GFR (Cockcroft-Gault) 31.1 Glucose Level 75 mg/dL (70-99) Calcium Level 8.2 mg/dL (8.5-10.1) L Test 12/25/20 08:00 Glucose (Fingerstick) 77 mg/dL (70-99) ASSESSMENT: 1. Acute on chronic systolic and diastolic HF 2. PAD with LLE gangrene. PLAN: 1. Plan for continued diuresis with monitoring of renal function. 2. 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 Will likely have to approach via right femoral artery as he probable has below knee disease which would be difficult to treat via radial approach. Will follow along. continue current meds. Thanks. Justicifation of Admission Dx: Justifications for Admission: Justification of Admission Dx: Yes JANNETTE GRANT MD December 25, 2020 09:00
[2020-12-25] MEDS: METOPROLOL SUCC 24HR ER 25 MG TAB.ER.24H. PO SCH (09:26)
[2020-12-25] MEDS: ASCORBIC ACID 500 MG TABLET PO SCH ×2 (09:26→20:52)
[2020-12-25] MEDS: FERROUS SULFATE 325 MG TABLET. PO SCH ×2 (09:26→17:54)
[2020-12-25] MEDS: hydrALAZINE 25 MG TABLET PO SCH ×3 (09:26→20:52)
[2020-12-25] MEDS: SERTRALINE 50 MG TABLET. PO SCH (09:27)
[2020-12-25] MEDS: POTASSIUM CHLORIDE 20 MEQ TABLET.ER. PO SCH (09:27)
[2020-12-25] MEDS: FAMOTIDINE 20 MG TABLET. PO SCH (09:27)
[2020-12-25] MEDS: NYSTATIN TOPICAL POWDER 15GM BOTTLE. TP SCH ×2 (09:30→20:53)
[2020-12-25] MEDS: LINEZOLID 600 MG TABLET PO SCH ×2 (09:41→20:53)
[2020-12-25] MEDS: AMOXICILLIN/K CLAV 875/125MG TABLET. PO SCH ×2 (09:41→20:52)
[2020-12-25 11:00] VITALS: BP 168/81
--- NOTE | 2020-12-25 11:02 | PDOC ---
Renal-Progress Notes Subjective Notes Notes NO SOB History of Present Illness Hx of present illness STABLE Vitals Vitals Vital Signs Date Time Temp Pulse Resp B/P (MAP) Pulse Ox O2 Delivery O2 Flow Rate FiO2 12/25/20 09:26 63 160/70 12/25/20 07:00 97.8 20 92 Room Air 97.8 Weight Weight [ ] I.O. Intake and Output Intake and Output 12/25/20 07:00 Intake Total 960 ml Output Total 3075 ml Balance -2115 ml Intake Oral 960 ml Output Urine Total 3075 ml Stool Total 0 ml Labs Labs Laboratory Tests Test 12/24/20 11:33 12/24/20 16:57 12/24/20 19:58 12/25/20 06:30 Glucose (Fingerstick) 117 mg/dL (70-99) 90 mg/dL (70-99) 129 mg/dL (70-99) White Blood Count 6.9 x10^3/uL (4.0-11.0) Red Blood Count 2.82 x10^6/uL (4.30-5.70) Hemoglobin 8.3 g/dL (13.0-17.5) Hematocrit 25.7 % (39.0-53.0) Mean Corpuscular Volume 91 fL (79-100) Mean Corpuscular Hemoglobin 29 pg (25-35) Mean Corpuscular Hemoglobin Concent 32 g/dL (31-37) Red Cell Distribution Width 18.8 % (11.5-14.5) Platelet Count 176 x10^3/uL (140-400) Neutrophils (%) (Auto) 55 % (31-73) Lymphocytes (%) (Auto) 21 % (24-48) Monocytes (%) (Auto) 10 % (0-9) Eosinophils (%) (Auto) 13 % (0-3) Basophils (%) (Auto) 1 % (0-3) Neutrophils # (Auto) 3.8 x10^3/uL (1.8-7.7) Lymphocytes # (Auto) 1.4 x10^3/uL (1.0-4.8) Monocytes # (Auto) 0.7 x10^3/uL (0.0-1.1) Eosinophils # (Auto) 0.9 x10^3/uL (0.0-0.7) Basophils # (Auto) 0.1 x10^3/uL (0.0-0.2) Sodium Level 146 mmol/L (136-145) Potassium Level 3.4 mmol/L (3.5-5.1) Chloride Level 110 mmol/L (98-107) Carbon Dioxide Level 26 mmol/L (21-32) Anion Gap 10 (6-14) Blood Urea Nitrogen 86 mg/dL (8-26) Creatinine 2.1 mg/dL (0.7-1.3) Estimated GFR (Cockcroft-Gault) 31.1 Glucose Level 75 mg/dL (70-99) Calcium Level 8.2 mg/dL (8.5-10.1) Test 12/25/20 08:00 Glucose (Fingerstick) 77 mg/dL (70-99) Review of Systems Constitutional: yes: alert, oriented Ears/Nose/Throat: Yes: no symptom reported Eyes: Yes: no symptom reported Pulmonary: Yes dyspnea Cardiovascular: Yes no symptom reported Gastrointestional: Yes: no symptom reported Genitourinary: Yes: no symptom reported Musculoskeletal: Yes: no symptom reported Skin: Yes no symptom reported Psychiatric/Neurological: Yes: no symptom reported Physical Exam General Appearance: no apparent distress Skin: warm Respiratory: decreased breath sounds Heart: S1S2 Abdomen: soft, bowel sounds present Genitourinary: bladder flat Extremities: edema Neurology: alert, oriented, follow commands Assessment Assessment IMP REBECCA-IMPROVING CKD STAGE 4 WITH CR OF BOT 2.0 ACUTE ON CHRONIC DIASTOLIC CHF ANEMIA CAD-PTCA/STENT AFIB LE EDEMA HYPOKALEMIA HYPERNATREMIA DM II HTN PAD L HEEL ULCER PLAN CONT WITH LASIX GTT CONT K SUPPLEMENTS CHECK MAG LABS IN AM ANGIO ONCE MORE STABLE WILL FOLLOW ALONDRA GREEN MD December 25, 2020 11:01
[2020-12-25] MEDS: FUROSEMIDE INJ 100 MG in IV NORMAL SALINE 100ML 100 ML IV PRN (12:12)
[2020-12-25 15:31] VITALS: BP 153/69
--- NOTE | 2020-12-25 16:46 | PDOC ---
GENERAL General: Patient examined chart reviewed today's hospital day 6 for this patient with extensive complex multimorbidity admitted with acute on chronic systolic and diastolic congestive heart failure as well as acute on chronic stage IV renal failure. We appreciate subspecialty support. Patient was found to have significant decubitus ulcers on his heels and ankles related in large part to his known peripheral vascular disease. Hoping for aortogram on Sunday. Patient is in good spirits this afternoon and has no specific complaints to report. All systems reviewed and negative. Problems: (1) Non-healing wound (2) Peripheral artery disease (3) Chronic kidney disease (CKD) (4) PVD (peripheral vascular disease) (5) Lymphedema (6) DM2 (diabetes mellitus, type 2) (7) HTN (hypertension) (8) CHF exacerbation (9) Anemia VITAL SIGNS Vital Signs/I&O: Vital Signs Date Time Temp Pulse Resp B/P (MAP) Pulse Ox O2 Delivery O2 Flow Rate FiO2 12/25/20 15:31 97.6 68 16 153/69 (97) 96 Room Air 97.6 I & O 12/24/20 12/24/20 12/25/20 15:00 23:00 07:00 Intake Total 660 ml 200 ml 100 ml Output Total 900 ml 775 ml 1400 ml Balance -240 ml -575 ml -1300 ml In general the patient is pleasant alert and oriented x3 no acute distress HEENT exam is unremarkable for acute abnormality Chest is clear to auscultation Heart S1-S2 normal regular rate and rhythm no murmurs or gallops are noted Abdomen soft nontender nondistended no masses organomegaly noted. Patient is morbidly obese. Extremity exam is unremarkable for acute abnormality. Chronic venous stasis dermatitis skin changes noted. Cool cyanotic distal bilateral lower extremities noted. Bilateral foot and ankle wounds without change followed by infectious diseases as well as wound care. ALLERGIES Allergies: Allergies Coded Allergies Type Severity Reaction Last Updated Verified Sulfa (Sulfonamide Antibiotics) Adverse Reaction Intermediate Nausea and Vomiting 12/21/20 Yes MEDS Medications: Current Medications Medications (Trade) Dose Ordered Sig/Redd Start Time Stop Time Status Last Admin Dose Admin Acetaminophen (Tylenol) 650 mg PRN Q4HRS PRN 12/20/20 21:45 12/20/20 23:02 Amoxicillin/ Clavulanate Potassium (Augmentin 875/ 125mg) 1 tab BID 12/25/20 09:00 12/25/20 09:41 Apixaban (Eliquis) 2.5 mg BID 12/20/20 22:00 12/21/20 13:36 DC 12/21/20 09:00 Ascorbic Acid (Vitamin C) 500 mg BID 12/20/20 22:00 12/25/20 09:26 Atorvastatin Calcium (Lipitor) 40 mg HS 12/20/20 22:00 12/24/20 20:41 Buspirone HCl (Buspar) 10 mg PRN DAILY PRN 12/20/20 21:45 Dextrose (Dextrose 50%-Water Syringe) 12.5 gm PRN Q15MIN PRN 12/20/20 21:45 Docusate Sodium (Colace) 100 mg PRN DAILY PRN 12/20/20 21:45 Famotidine (Pepcid) 20 mg DAILY 12/21/20 09:00 12/25/20 09:27 Ferrous Sulfate (Feosol) 325 mg BIDWMEALS 12/24/20 17:00 12/25/20 09:26 Ferrous Sulfate (Iron Oral Solution) 300 mg BIDWMEALS 12/22/20 17:00 12/24/20 11:08 DC 12/24/20 08:54 Furosemide (Lasix) 40 mg 1X ONCE 12/20/20 21:45 12/20/20 21:46 DC 12/20/20 23:03 Furosemide 100 mg/ Sodium Chloride 100 ml @ 0 mls/hr CONT PRN 12/21/20 11:30 12/25/20 12:12 Hydralazine HCl (Apresoline) 25 mg TID 12/21/20 09:00 12/25/20 14:38 Insulin Glargine (Lantus Syringe) 15 unit QHS 12/20/20 22:00 12/24/20 20:43 Insulin Human Lispro (HumaLOG) 0-7 UNITS TIDWMEALS 12/21/20 08:00 Linezolid (Zyvox) 600 mg BID 12/25/20 09:00 12/25/20 09:41 Metoprolol Succinate (Toprol Xl) 25 mg DAILY 12/21/20 09:00 12/25/20 09:26 Nystatin (Nystop) 1 luna BID 12/20/20 22:00 12/25/20 09:30 Ondansetron HCl (Zofran) 4 mg PRN Q6HRS PRN 12/20/20 21:45 Polyethylene Glycol (miraLAX PACKET) 17 gm PRN DAILY PRN 12/22/20 12:00 Potassium Chloride (Klor-Con) 40 meq DAILY 12/24/20 09:00 12/25/20 09:27 Sennosides (Senna) 17.2 mg PRN BID PRN 12/20/20 21:45 12/21/20 21:11 Sertraline HCl (Zoloft) 50 mg DAILY 12/21/20 09:00 12/25/20 09:27 Current Medications Medications (Trade) Dose Ordered Sig/Redd Route PRN Reason Start Time Stop Time Status Last Admin Dose Admin Ferrous Sulfate (Feosol) 325 mg BIDWMEALS PO 12/24/20 17:00 12/25/20 09:26 Linezolid (Zyvox) 600 mg BID PO 12/25/20 09:00 12/25/20 09:41 Amoxicillin/ Clavulanate Potassium (Augmentin 875/ 125mg) 1 tab BID PO 12/25/20 09:00 12/25/20 09:41 LAB Lab: Laboratory Tests Test 12/24/20 16:57 12/24/20 19:58 12/25/20 06:30 12/25/20 08:00 Glucose (Fingerstick) 90 mg/dL (70-99) 129 mg/dL (70-99) H 77 mg/dL (70-99) White Blood Count 6.9 x10^3/uL (4.0-11.0) Red Blood Count 2.82 x10^6/uL (4.30-5.70) L Hemoglobin 8.3 g/dL (13.0-17.5) L Hematocrit 25.7 % (39.0-53.0) L Mean Corpuscular Volume 91 fL (79-100) Mean Corpuscular Hemoglobin 29 pg (25-35) Mean Corpuscular Hemoglobin Concent 32 g/dL (31-37) Red Cell Distribution Width 18.8 % (11.5-14.5) H Platelet Count 176 x10^3/uL (140-400) Neutrophils (%) (Auto) 55 % (31-73) Lymphocytes (%) (Auto) 21 % (24-48) L Monocytes (%) (Auto) 10 % (0-9) H Eosinophils (%) (Auto) 13 % (0-3) H Basophils (%) (Auto) 1 % (0-3) Neutrophils # (Auto) 3.8 x10^3/uL (1.8-7.7) Lymphocytes # (Auto) 1.4 x10^3/uL (1.0-4.8) Monocytes # (Auto) 0.7 x10^3/uL (0.0-1.1) Eosinophils # (Auto) 0.9 x10^3/uL (0.0-0.7) H Basophils # (Auto) 0.1 x10^3/uL (0.0-0.2) Sodium Level 146 mmol/L (136-145) H Potassium Level 3.4 mmol/L (3.5-5.1) L Chloride Level 110 mmol/L (98-107) H Carbon Dioxide Level 26 mmol/L (21-32) Anion Gap 10 (6-14) Blood Urea Nitrogen 86 mg/dL (8-26) H Creatinine 2.1 mg/dL (0.7-1.3) H Estimated GFR (Cockcroft-Gault) 31.1 Glucose Level 75 mg/dL (70-99) Calcium Level 8.2 mg/dL (8.5-10.1) L Test 12/25/20 11:42 12/25/20 16:02 Glucose (Fingerstick) 107 mg/dL (70-99) H 110 mg/dL (70-99) H Laboratory Tests 12/25/20 06:30 Laboratory Tests 12/25/20 06:30 ASSESSMENT & PLAN A&P Plan as noted above This note was created using [email or web address] and may have omissions and/or errors due to the nature of real-time voice kitchenhand. Justifications for Admission Other Justification CHF exacerbation NARESH MOJICA MD December 25, 2020 16:46
[2020-12-25 19:40] VITALS: BP 162/65
[2020-12-25] MEDS: ATORVASTATIN CALCIUM 40 MG TABLET. PO SCH (20:52)
[2020-12-25] MEDS: INSULIN GLARGINE SYRINGE. SQ SCH (20:52)
[2020-12-25 23:05] VITALS: BP 159/70
[2020-12-26 03:40] VITALS: BP_SYST 121; BP_SYST 169; BP_DIAS 58; BP_DIAS 73
--- NOTE | 2020-12-26 06:43 | PDOC ---
Infectious Disease Note Subjective Subjective pt is feeling good No F/c/s/N/v/d/SOA. heels ok Thinks his legs are better ROS ROS o/w neg Vital Sign Vital Signs Vital Signs Date Time Temp Pulse Resp B/P (MAP) Pulse Ox O2 Delivery O2 Flow Rate FiO2 12/26/20 03:40 97.9 63 21 169/73 (105) 94 Room Air 97.9 Physical Exam PHYSICAL EXAM GENERAL: Alert, oriented gentleman, not in any distress. HEENT: Both pupils are round and reacting. No conjunctival lesion. No lesion in the mouth. NECK: Supple. No JVP. No lymphadenopathy. LUNGS: Clear. HEART: S1, S2 regular. Pacer site clean ABDOMEN: Soft, nontender. No organomegaly. Obeses EXTREMITIES: Edema present bilaterally less today. There is ulcer on the left big toe as well as black eschar on the left calcaneum. R heel with mild wound/ Mild cellullitis on LLE - improved. Dorsalis pedis is not palpable. SKIN: Rest of skin exam is unremarkable. NEUROLOGIC: The patient is alert, awake, and appropriate. No focal neurologic deficit. Labs Lab Laboratory Tests Test 12/25/20 08:00 12/25/20 11:42 12/25/20 16:02 12/25/20 20:25 Glucose (Fingerstick) 77 mg/dL (70-99) 107 mg/dL (70-99) 110 mg/dL (70-99) 136 mg/dL (70-99) Objective Assessment 1. Left calcaneal black eschar. MRI neg for osteo R heel wound - Cellulitis is better 2. Peripheral arterial disease. 3. Left big toe ulcer. 4. Obesity. 5. Diabetes. 6. Hypertension. 7. Congestive heart failure. 8. Renal insufficiency. 9. Sulfa allergy Plan Plan of Care Cont Augmentin and Zyvox (12/25) and monitor Aortogram in am cont off load Wound care per wound team D/w nursing BIPIN JULIEN MD December 26, 2020 06:43
[2020-12-26 07:00] VITALS: BP 129/65
[2020-12-26] MEDS: INSULIN LISPRO 300 UNITS/3 ML VIAL. SQ SCH ×3 (08:00→17:00)
[2020-12-26] MEDS: AMOXICILLIN/K CLAV 875/125MG TABLET. PO SCH ×2 (08:41→20:50)
[2020-12-26] MEDS: LINEZOLID 600 MG TABLET PO SCH ×2 (08:41→20:50)
[2020-12-26] MEDS: ASCORBIC ACID 500 MG TABLET PO SCH ×2 (08:42→20:50)
[2020-12-26] MEDS: SERTRALINE 50 MG TABLET. PO SCH (08:42)
[2020-12-26] MEDS: hydrALAZINE 25 MG TABLET PO SCH ×3 (08:43→20:50)
[2020-12-26] MEDS: FERROUS SULFATE 325 MG TABLET. PO SCH ×2 (08:43→17:24)
[2020-12-26] MEDS: METOPROLOL SUCC 24HR ER 25 MG TAB.ER.24H. PO SCH (08:43)
[2020-12-26] MEDS: FAMOTIDINE 20 MG TABLET. PO SCH (08:43)
[2020-12-26] MEDS: POTASSIUM CHLORIDE 20 MEQ TABLET.ER. PO SCH (08:44)
[2020-12-26] MEDS: NYSTATIN TOPICAL POWDER 15GM BOTTLE. TP SCH ×2 (08:46→20:50)
[2020-12-26 09:08] LABS: BASO # 0.1 x10^3/uL (0.0-0.2); BASO % 1 % (0-3); EOS # 0.9 x10^3/uL (0.0-0.7); EOS % 13 % (0-3); HEMATOCRIT 24.8 % (39.0-53.0); HEMOGLOBIN 8.1 g/dL (13.0-17.5); LYMPH # 1.3 x10^3/uL (1.0-4.8); LYMPH % 19 % (24-48); MEAN CORPUSCULAR HEMOGLOBIN 30 pg (25-35); MEAN CORPUSCULAR HGB CONC 33 g/dL (31-37); MEAN CORPUSCULAR VOLUME 90 fL (79-100); MONO # 0.7 x10^3/uL (0.0-1.1); MONO % 10 % (0-9); NEUT # 4.1 x10^3/uL (1.8-7.7); NEUT % 58 % (31-73); PLATELET COUNT 174 x10^3/uL (140-400); RED BLOOD COUNT 2.75 x10^6/uL (4.30-5.70); RED CELL DISTRIBUTION WIDTH 18.5 % (11.5-14.5); WHITE BLOOD COUNT 7.1 x10^3/uL (4.0-11.0)
[2020-12-26] MEDS: ONDANSETRON PF 4 MG/2 ML VIAL. IVP PRN (09:19)
[2020-12-26 09:21] LABS: CALCIUM 7.7 mg/dL (8.5-10.1); CREATININE 2.1 mg/dL (0.7-1.3); GFR 31.1; MAGNESIUM 2.1 mg/dL (1.8-2.4); PHOSPHORUS 2.8 mg/dL (2.6-4.7); POTASSIUM 3.4 mmol/L (3.5-5.1)
[2020-12-26] MEDS: FUROSEMIDE INJ 100 MG in IV NORMAL SALINE 100ML 100 ML IV PRN (10:06)
--- NOTE | 2020-12-26 10:08 | NUR ---
FUROSEMIDE BAG SCAN "INVALID BARCODE FORMAT". I TALKED WITH YUDY IN PHARMACY. SHE VERIFIED ORDER HAS NOT CHANGED AND BAG LABEL IS CORRECT.
--- NOTE | 2020-12-26 10:27 | PDOC ---
Renal-Progress Notes Subjective Notes Notes NO NEW COMPLAINTS History of Present Illness Hx of present illness STABLE Vitals Vitals Vital Signs Date Time Temp Pulse Resp B/P (MAP) Pulse Ox O2 Delivery O2 Flow Rate FiO2 12/26/20 08:43 72 129/65 12/26/20 07:00 97.7 18 93 Room Air 97.7 Weight Weight [ ] I.O. Intake and Output Intake and Output 12/26/20 07:00 Intake Total 300 ml Output Total 2850 ml Balance -2550 ml Intake Oral 200 ml IV Total 100 ml Output Urine Total 2850 ml # Bowel Movements 1 Labs Labs Laboratory Tests Test 12/25/20 11:42 12/25/20 16:02 12/25/20 20:25 12/26/20 08:05 Glucose (Fingerstick) 107 mg/dL (70-99) 110 mg/dL (70-99) 136 mg/dL (70-99) 57 mg/dL (70-99) Test 12/26/20 08:10 White Blood Count 7.1 x10^3/uL (4.0-11.0) Red Blood Count 2.75 x10^6/uL (4.30-5.70) Hemoglobin 8.1 g/dL (13.0-17.5) Hematocrit 24.8 % (39.0-53.0) Mean Corpuscular Volume 90 fL (79-100) Mean Corpuscular Hemoglobin 30 pg (25-35) Mean Corpuscular Hemoglobin Concent 33 g/dL (31-37) Red Cell Distribution Width 18.5 % (11.5-14.5) Platelet Count 174 x10^3/uL (140-400) Neutrophils (%) (Auto) 58 % (31-73) Lymphocytes (%) (Auto) 19 % (24-48) Monocytes (%) (Auto) 10 % (0-9) Eosinophils (%) (Auto) 13 % (0-3) Basophils (%) (Auto) 1 % (0-3) Neutrophils # (Auto) 4.1 x10^3/uL (1.8-7.7) Lymphocytes # (Auto) 1.3 x10^3/uL (1.0-4.8) Monocytes # (Auto) 0.7 x10^3/uL (0.0-1.1) Eosinophils # (Auto) 0.9 x10^3/uL (0.0-0.7) Basophils # (Auto) 0.1 x10^3/uL (0.0-0.2) Sodium Level 149 mmol/L (136-145) Potassium Level 3.4 mmol/L (3.5-5.1) Chloride Level 111 mmol/L (98-107) Carbon Dioxide Level 28 mmol/L (21-32) Anion Gap 10 (6-14) Blood Urea Nitrogen 82 mg/dL (8-26) Creatinine 2.1 mg/dL (0.7-1.3) Estimated GFR (Cockcroft-Gault) 31.1 Glucose Level 51 mg/dL (70-99) Calcium Level 7.7 mg/dL (8.5-10.1) Phosphorus Level 2.8 mg/dL (2.6-4.7) Magnesium Level 2.1 mg/dL (1.8-2.4) Review of Systems Constitutional: yes: alert, oriented Ears/Nose/Throat: Yes: no symptom reported Eyes: Yes: no symptom reported Pulmonary: Yes dyspnea Cardiovascular: Yes no symptom reported Gastrointestional: Yes: no symptom reported Genitourinary: Yes: no symptom reported Musculoskeletal: Yes: no symptom reported Skin: Yes no symptom reported Psychiatric/Neurological: Yes: no symptom reported Physical Exam General Appearance: no apparent distress Skin: warm Respiratory: decreased breath sounds Heart: S1S2 Abdomen: soft, bowel sounds present Genitourinary: bladder flat Extremities: edema Neurology: alert, oriented, follow commands Assessment Assessment IMP REBECCA-IMPROVING CKD STAGE 4 WITH CR OF ABOUT 2.0 ACUTE ON CHRONIC DIASTOLIC CHF ANEMIA CAD-PTCA/STENT AFIB LE EDEMA HYPOKALEMIA HYPERNATREMIA DM II HTN PAD L HEEL ULCER PLAN STOP LASIX GTT START PO TORSEMIDE CONT K SUPPLEMENTS LABS IN AM ANGIO ONCE MORE STABLE WILL FOLLOW ALONDRA GREEN MD December 26, 2020 10:27
--- NOTE | 2020-12-26 10:43 | PDOC ---
[employer] PROGRESS NOTE Date of Service DOS: DATE: 12/26/20 TIME: 10:42 Chief Complaint Chief Complaint Acute volume overload Acute on chronic CHF exacerbation Hypokalemia History of chronic kidney disease Normocytic anemia, possible chronic GI blood loss with EGD showing antral gastric ulcer Left lower extremity wound ulcer with dry gangrene Morbid obesity, OHS, suspect ROBB Severe protein malnutrition History of diabetes mellitus type 2 History of peripheral vascular disease History of atrial fibrillation History of bradycardia status post pacemaker placement History of peripheral vascular disease Hypertension Dyslipidemia Admit to medicine for further management Pending MRI of lower extremity today Appreciate vascular surgery recommendationwe will obtain MRI to determine level of possible amputation ID consulted IV Lasix drip started Strict I's and O's Nephrology consult Cardiology consult Trend hemoglobin if less than 7 then transfuse 1 unit Eliquis for DVT prophylaxis Pepcid GI prophylaxis ADA diet Full code Discussed with RN and SW Disposition inpatient management as above Surrogate decision maker is Phuong Mathis History of Present Illness History of Present Illness 12/26/2020 No acute events overnight. Patient seen and examined bedside. -2.5 L output in the urine in the past 24 hours. No complaints from the patient. Pending aortogram with LLE runoff with vascular surgery. Follow-up 12/24/2020 Patient was seen and examined in room today. Awaiting plan from vascular/cardio on possible PCI/angio of LLE. Case discussed with RN and case management. Chart and specialist notes reviewed. 12/23/2020 No acute events overnight. Patient seen and examined bedside. Pedal edema has improved total of -2.3 L of urine output. Low potassium today will replace IV and p.o. Creatinine has also improved. Pending MRI versus CT of left lower extremity. Patient's chart, labs, images were reviewed and discussed with RN 12/22/2020 No acute events overnight patient seen and examined bedside. No significant weight loss with Lasix drip. Will defer further fluid offloading with cardiology. Pending MRI and further vascular surgery recommendations for lower extremity foot ulcer. Patient's chart, labs, images were reviewed and discussed with RN 12/21/2020 No acute events overnight. Patient has adequate urine output and feels less fluid overload. Documented -580 cc. Patient's chart, labs, images were reviewed and discussed with RN 75 year old male who was sent here from [facility] for evaluation due to bilateral lower extremity swelling, worsening renal function. He has history of CHF, history of chronic renal failure. Patient was sent here by the [employer] there today for evaluation of bilateral lower extremity swelling and increased renal function test. Patient denies any chest pain, denies any cough or fever. Patient does have trouble breathing with exertion. Patient says they told him to come here to be admitted so they can do colonoscopy because he has been anemic as well. Patient denies any rectal bleeding. His weight today is 147 kg Upon chart review patient was seen in November 04 09/12/2020 for GI bleed.. Eliquis was actually restarted on 11/09/2020. And also had a pacemaker placed on 11/09/2020 and tolerated procedure well. Patient also does follow-up with Dr. Chau with nephrology and his baseline creatinine appears to be between 1.8-2.0. Vitals/I&O Vitals/I&O: Vital Signs Date Time Temp Pulse Resp B/P (MAP) Pulse Ox O2 Delivery O2 Flow Rate FiO2 12/26/20 08:43 72 129/65 12/26/20 07:00 97.7 18 93 Room Air 97.7 I & O 12/25/20 12/25/20 12/26/20 15:00 23:00 07:00 Intake Total 100 ml 200 ml Output Total 1500 ml 1350 ml Balance 100 ml -1500 ml -1150 ml Physical Exam Physical Exam: GENERAL: Alert, oriented gentleman, not in any distress. HEENT: Both pupils are round and reacting. No conjunctival lesion. No lesion in the mouth. NECK: Supple. No JVP. No lymphadenopathy. LUNGS: Clear. HEART: S1, S2 regular. Pacer site clean ABDOMEN: Soft, nontender. No organomegaly. Obeses EXTREMITIES: Edema present bilaterally less today. There is ulcer on the left big toe as well as black eschar on the left calcaneum. R heel with mild wound/ Mild cellullitis on LLE - improved. Dorsalis pedis is not palpable. SKIN: Rest of skin exam is unremarkable. NEUROLOGIC: The patient is alert, awake, and appropriate. No focal neurologic deficit. General: Alert, Oriented X3, Cooperative, No acute distress Heart: Other (2/6 sysotlic murmur, IRRR- tele AFIB. int V pacing ) Lungs: Clear, Other Abdomen: Soft Extremities: Other (2-3+ bilateral LE edema, anasarca ) Skin: No significant lesion Labs Labs: Laboratory Tests Test 12/25/20 11:42 12/25/20 16:02 12/25/20 20:25 12/26/20 08:05 Glucose (Fingerstick) 107 mg/dL (70-99) 110 mg/dL (70-99) 136 mg/dL (70-99) 57 mg/dL (70-99) Test 12/26/20 08:10 White Blood Count 7.1 x10^3/uL (4.0-11.0) Red Blood Count 2.75 x10^6/uL (4.30-5.70) Hemoglobin 8.1 g/dL (13.0-17.5) Hematocrit 24.8 % (39.0-53.0) Mean Corpuscular Volume 90 fL (79-100) Mean Corpuscular Hemoglobin 30 pg (25-35) Mean Corpuscular Hemoglobin Concent 33 g/dL (31-37) Red Cell Distribution Width 18.5 % (11.5-14.5) Platelet Count 174 x10^3/uL (140-400) Neutrophils (%) (Auto) 58 % (31-73) Lymphocytes (%) (Auto) 19 % (24-48) Monocytes (%) (Auto) 10 % (0-9) Eosinophils (%) (Auto) 13 % (0-3) Basophils (%) (Auto) 1 % (0-3) Neutrophils # (Auto) 4.1 x10^3/uL (1.8-7.7) Lymphocytes # (Auto) 1.3 x10^3/uL (1.0-4.8) Monocytes # (Auto) 0.7 x10^3/uL (0.0-1.1) Eosinophils # (Auto) 0.9 x10^3/uL (0.0-0.7) Basophils # (Auto) 0.1 x10^3/uL (0.0-0.2) Sodium Level 149 mmol/L (136-145) Potassium Level 3.4 mmol/L (3.5-5.1) Chloride Level 111 mmol/L (98-107) Carbon Dioxide Level 28 mmol/L (21-32) Anion Gap 10 (6-14) Blood Urea Nitrogen 82 mg/dL (8-26) Creatinine 2.1 mg/dL (0.7-1.3) Estimated GFR (Cockcroft-Gault) 31.1 Glucose Level 51 mg/dL (70-99) Calcium Level 7.7 mg/dL (8.5-10.1) Phosphorus Level 2.8 mg/dL (2.6-4.7) Magnesium Level 2.1 mg/dL (1.8-2.4) Assessment and Plan Assessmemt and Plan Problems Medical Problems: (1) Anemia Status: Acute (2) CHF exacerbation Status: Acute Comment Review of Relevant I have reviewed the following items mara (where applicable) has been applied. Justifications for Admission Other Justification CHF exacerbation KANNAN NELSON MD December 26, 2020 10:43
[2020-12-26 11:00] VITALS: BP 126/56
[2020-12-26] MEDS: FUROSEMIDE 40 MG TABLET. PO SCH ×2 (12:33→17:25)
[2020-12-26 15:00] VITALS: BP 135/63
[2020-12-26 19:25] VITALS: BP 137/71
[2020-12-26] MEDS: LACTOBACILLUS RHAMNOSUS GG 1 CAPSULE. PO SCH (20:50)
[2020-12-26] MEDS: ATORVASTATIN CALCIUM 40 MG TABLET. PO SCH (20:50)
[2020-12-26] MEDS: INSULIN GLARGINE SYRINGE. SQ SCH (20:53)
[2020-12-26 22:55] VITALS: BP 100/57
[2020-12-27] VITALS (7 sets, daily range): BP systolic 113–148; BP diastolic 53–73
[2020-12-27 06:45] LABS: BASO # 0.1 x10^3/uL (0.0-0.2); BASO % 1 % (0-3); EOS # 0.8 x10^3/uL (0.0-0.7); EOS % 13 % (0-3); HEMATOCRIT 26.3 % (39.0-53.0); HEMOGLOBIN 8.4 g/dL (13.0-17.5); LYMPH # 1.3 x10^3/uL (1.0-4.8); LYMPH % 20 % (24-48); MEAN CORPUSCULAR HEMOGLOBIN 29 pg (25-35); MEAN CORPUSCULAR HGB CONC 32 g/dL (31-37); MEAN CORPUSCULAR VOLUME 92 fL (79-100); MONO # 0.6 x10^3/uL (0.0-1.1); MONO % 10 % (0-9); NEUT # 3.5 x10^3/uL (1.8-7.7); NEUT % 56 % (31-73); PLATELET COUNT 172 x10^3/uL (140-400); RED BLOOD COUNT 2.87 x10^6/uL (4.30-5.70); RED CELL DISTRIBUTION WIDTH 18.8 % (11.5-14.5); WHITE BLOOD COUNT 6.2 x10^3/uL (4.0-11.0)
[2020-12-27 07:00] LABS: CALCIUM 8.3 mg/dL (8.5-10.1); CREATININE 2.3 mg/dL (0.7-1.3); POTASSIUM 3.7 mmol/L (3.5-5.1)
[2020-12-27 07:09] LABS: PHOSPHORUS 3.4 mg/dL (2.6-4.7)
--- NOTE | 2020-12-27 07:57 | PDOC ---
[employer] PROGRESS NOTE Date of Service DOS: DATE: 12/27/20 TIME: 07:51 Chief Complaint Chief Complaint Acute volume overload Acute on chronic CHF exacerbation Hypokalemia History of chronic kidney disease Normocytic anemia, possible chronic GI blood loss with EGD showing antral gastric ulcer Left lower extremity wound ulcer with dry gangrene Morbid obesity, OHS, suspect ROBB Severe protein malnutrition History of diabetes mellitus type 2 History of peripheral vascular disease History of atrial fibrillation History of bradycardia status post pacemaker placement History of peripheral vascular disease Hypertension Dyslipidemia Admit to medicine for further management Pending MRI of lower extremity today Appreciate vascular surgery recommendationwe will obtain MRI to determine level of possible amputation ID consulted IV Lasix drip started Strict I's and O's Nephrology consult Cardiology consult Trend hemoglobin if less than 7 then transfuse 1 unit Eliquis for DVT prophylaxis Pepcid GI prophylaxis ADA diet Full code Discussed with RN and SW Disposition inpatient management as above Surrogate decision maker is Phuong Mathis History of Present Illness History of Present Illness 12/27/2020 Afebrile, currently on room air. Off Lasix drip, currently Lasix 40 mg twice daily. Net positive fluid balance overnight, 510mL. Continue p.o. Augmentin and Zyvox. Aortogram pending today. 12/26/2020 No acute events overnight. Patient seen and examined bedside. -2.5 L output in the urine in the past 24 hours. No complaints from the patient. Pending aortogram with LLE runoff with vascular surgery. Follow-up 12/24/2020 Patient was seen and examined in room today. Awaiting plan from vascular/cardio on possible PCI/angio of LLE. Case discussed with RN and case management. Chart and specialist notes reviewed. 12/23/2020 No acute events overnight. Patient seen and examined bedside. Pedal edema has improved total of -2.3 L of urine output. Low potassium today will replace IV and p.o. Creatinine has also improved. Pending MRI versus CT of left lower extremity. Patient's chart, labs, images were reviewed and discussed with RN 12/22/2020 No acute events overnight patient seen and examined bedside. No significant weight loss with Lasix drip. Will defer further fluid offloading with cardiolo gy. Pending MRI and further vascular surgery recommendations for lower extremity foot ulcer. Patient's chart, labs, images were reviewed and discussed with RN 12/21/2020 No acute events overnight. Patient has adequate urine output and feels less fluid overload. Documented -580 cc. Patient's chart, labs, images were reviewed and discussed with RN 75 year old male who was sent here from [facility] for evaluation due to bilateral lower extremity swelling, worsening renal function. He has history of CHF, history of chronic renal failure. Patient was sent here by the [employer]IC[employer] there today for evaluation of bilateral lower extremity swelling and increased renal function test. Patient denies any chest pain, denies any cough or fever. Patient does have trouble breathing with exertion. Patient says they told him to come here to be admitted so they can do colonoscopy because he has been anemic as well. Patient denies any rectal bleeding. His weight today is 147 kg Upon chart review patient was seen in November 04 09/12/2020 for GI bleed.. Eliquis was actually restarted on 11/09/2020. And also had a pacemaker placed on 11/09/2020 and tolerated procedure well. Patient also does follow-up with Dr. Chau with nephrology and his baseline creatinine appears to be between 1.8-2.0. Vitals/I&O Vitals/I&O: Vital Signs Date Time Temp Pulse Resp B/P (MAP) Pulse Ox O2 Delivery O2 Flow Rate FiO2 12/27/20 03:30 98.0 66 20 135/64 (87) 92 Room Air 98.0 I & O0 12/26/20 12/26/20 12/27/20 15:00 23:00 07:00 Intake Total 930 ml 660 ml 120 ml Output Total 850 ml 350 ml Balance 930 ml -190 ml -230 ml Physical Exam Physical Exam: GENERAL: Alert, oriented gentleman, not in any distress. HEENT: Both pupils are round and reacting. No conjunctival lesion. No lesion in the mouth. NECK: Supple. No JVP. No lymphadenopathy. LUNGS: Clear. HEART: S1, S2 regular. Pacer site clean ABDOMEN: Soft, nontender. No organomegaly. Obeses EXTREMITIES: Edema present bilaterally less today. There is ulcer on the left big toe as well as black eschar on the left calcaneum. R heel with mild wound/ Mild cellullitis on LLE - improved. Dorsalis pedis is not palpable. SKIN: Rest of skin exam is unremarkable. NEUROLOGIC: The patient is alert, awake, and appropriate. No focal neurologic deficit. General: Alert, Oriented X3, Cooperative, No acute distress Heart: Other (2/6 sysotlic murmur, IRRR- tele AFIB. int V pacing ) Lungs: Clear, Other Abdomen: Soft Extremities: Other (2-3+ bilateral LE edema, anasarca ) Skin: No significant lesion Labs Labs: Laboratory Tests Test 12/26/20 08:05 12/26/20 08:10 12/26/20 11:58 12/26/20 16:54 Glucose (Fingerstick) 57 mg/dL (70-99) 79 mg/dL (70-99) 81 mg/dL (70-99) White Blood Count 7.1 x10^3/uL (4.0-11.0) Red Blood Count 2.75 x10^6/uL (4.30-5.70) Hemoglobin 8.1 g/dL (13.0-17.5) Hematocrit 24.8 % (39.0-53.0) Mean Corpuscular Volume 90 fL (79-100) Mean Corpuscular Hemoglobin 30 pg (25-35) Mean Corpuscular Hemoglobin Concent 33 g/dL (31-37) Red Cell Distribution Width 18.5 % (11.5-14.5) Platelet Count 174 x10^3/uL (140-400) Neutrophils (%) (Auto) 58 % (31-73) Lymphocytes (%) (Auto) 19 % (24-48) Monocytes (%) (Auto) 10 % (0-9) Eosinophils (%) (Auto) 13 % (0-3) Basophils (%) (Auto) 1 % (0-3) Neutrophils # (Auto) 4.1 x10^3/uL (1.8-7.7) Lymphocytes # (Auto) 1.3 x10^3/uL (1.0-4.8) Monocytes # (Auto) 0.7 x10^3/uL (0.0-1.1) Eosinophils # (Auto) 0.9 x10^3/uL (0.0-0.7) Basophils # (Auto) 0.1 x10^3/uL (0.0-0.2) Sodium Level 149 mmol/L (136-145) Potassium Level 3.4 mmol/L (3.5-5.1) Chloride Level 111 mmol/L (98-107) Carbon Dioxide Level 28 mmol/L (21-32) Anion Gap 10 (6-14) Blood Urea Nitrogen 82 mg/dL (8-26) Creatinine 2.1 mg/dL (0.7-1.3) Estimated GFR (Cockcroft-Gault) 31.1 Glucose Level 51 mg/dL (70-99) Calcium Level 7.7 mg/dL (8.5-10.1) Phosphorus Level 2.8 mg/dL (2.6-4.7) Magnesium Level 2.1 mg/dL (1.8-2.4) Test 12/26/20 20:48 12/27/20 06:05 Glucose (Fingerstick) 113 mg/dL (70-99) White Blood Count 6.2 x10^3/uL (4.0-11.0) Red Blood Count 2.87 x10^6/uL (4.30-5.70) Hemoglobin 8.4 g/dL (13.0-17.5) Hematocrit 26.3 % (39.0-53.0) Mean Corpuscular Volume 92 fL (79-100) Mean Corpuscular Hemoglobin 29 pg (25-35) Mean Corpuscular Hemoglobin Concent 32 g/dL (31-37) Red Cell Distribution Width 18.8 % (11.5-14.5) Platelet Count 172 x10^3/uL (140-400) Neutrophils (%) (Auto) 56 % (31-73) Lymphocytes (%) (Auto) 20 % (24-48) Monocytes (%) (Auto) 10 % (0-9) Eosinophils (%) (Auto) 13 % (0-3) Basophils (%) (Auto) 1 % (0-3) Neutrophils # (Auto) 3.5 x10^3/uL (1.8-7.7) Lymphocytes # (Auto) 1.3 x10^3/uL (1.0-4.8) Monocytes # (Auto) 0.6 x10^3/uL (0.0-1.1) Eosinophils # (Auto) 0.8 x10^3/uL (0.0-0.7) Basophils # (Auto) 0.1 x10^3/uL (0.0-0.2) Sodium Level 145 mmol/L (136-145) Potassium Level 3.7 mmol/L (3.5-5.1) Chloride Level 110 mmol/L (98-107) Carbon Dioxide Level 28 mmol/L (21-32) Anion Gap 7 (6-14) Blood Urea Nitrogen 84 mg/dL (8-26) Creatinine 2.3 mg/dL (0.7-1.3) Estimated GFR (Cockcroft-Gault) 28.0 Glucose Level 73 mg/dL (70-99) Calcium Level 8.3 mg/dL (8.5-10.1) Phosphorus Level 3.4 mg/dL (2.6-4.7) Magnesium Level 2.0 mg/dL (1.8-2.4) Assessment and Plan Assessmemt and Plan Problems Medical Problems: (1) Anemia Status: Acute (2) CHF exacerbation Status: Acute Comment Review of Relevant I have reviewed the following items mara (where applicable) has been applied. Medications: Current Medications Medications (Trade) Dose Ordered Sig/Redd Route PRN Reason Start Time Stop Time Status Last Admin Dose Admin Furosemide (Lasix) 40 mg [id number] PO 12/26/20 10:30 12/26/20 17:25 Lactobacillus Rhamnosus (Culturelle) 1 cap BID PO 12/26/20 21:00 12/26/20 20:50 Justifications for Admission Other Justification CHF exacerbation HOANG MAGAÑA MD December 27, 2020 07:57
[2020-12-27] MEDS: FERROUS SULFATE 325 MG TABLET. PO SCH ×2 (08:00→16:16)
[2020-12-27] MEDS: INSULIN LISPRO 300 UNITS/3 ML VIAL. SQ SCH ×3 (08:00→17:00)
[2020-12-27] MEDS: FUROSEMIDE 40 MG TABLET. PO SCH ×2 (09:00→16:16)
--- NOTE | 2020-12-27 09:18 | PDOC ---
Infectious Disease Note Subjective: Subjective pt is feeling good No F/c/s/N/v/d/SOA. heels ok Thinks his legs are better Vital Signs: Vital Signs Vital Signs Date Time Temp Pulse Resp B/P (MAP) Pulse Ox O2 Delivery O2 Flow Rate FiO2 12/27/20 07:00 97.8 61 20 145/65 (91) 92 Room Air 97.8 Physical Exam: PHYSICAL EXAM GENERAL: Alert, oriented gentleman, not in any distress. HEENT: Both pupils are round and reacting. No conjunctival lesion. No lesion in the mouth. NECK: Supple. No JVP. No lymphadenopathy. LUNGS: Clear. HEART: S1, S2 regular. Pacer site clean ABDOMEN: Soft, nontender. No organomegaly. Obeses EXTREMITIES: Edema present bilaterally less today. There is ulcer on the left big toe as well as black eschar on the left calcaneum. R heel with mild wound/ Mild cellullitis on LLE - improved. Dorsalis pedis is not palpable. SKIN: Rest of skin exam is unremarkable. NEUROLOGIC: The patient is alert, awake, and appropriate. No focal neurologic deficit. Medications: Inpatient Meds: Medications reviewed. Labs: Lab Laboratory Tests Test 12/26/20 11:58 12/26/20 16:54 12/26/20 20:48 12/27/20 06:05 Glucose (Fingerstick) 79 mg/dL (70-99) 81 mg/dL (70-99) 113 mg/dL (70-99) White Blood Count 6.2 x10^3/uL (4.0-11.0) Red Blood Count 2.87 x10^6/uL (4.30-5.70) Hemoglobin 8.4 g/dL (13.0-17.5) Hematocrit 26.3 % (39.0-53.0) Mean Corpuscular Volume 92 fL (79-100) Mean Corpuscular Hemoglobin 29 pg (25-35) Mean Corpuscular Hemoglobin Concent 32 g/dL (31-37) Red Cell Distribution Width 18.8 % (11.5-14.5) Platelet Count 172 x10^3/uL (140-400) Neutrophils (%) (Auto) 56 % (31-73) Lymphocytes (%) (Auto) 20 % (24-48) Monocytes (%) (Auto) 10 % (0-9) Eosinophils (%) (Auto) 13 % (0-3) Basophils (%) (Auto) 1 % (0-3) Neutrophils # (Auto) 3.5 x10^3/uL (1.8-7.7) Lymphocytes # (Auto) 1.3 x10^3/uL (1.0-4.8) Monocytes # (Auto) 0.6 x10^3/uL (0.0-1.1) Eosinophils # (Auto) 0.8 x10^3/uL (0.0-0.7) Basophils # (Auto) 0.1 x10^3/uL (0.0-0.2) Sodium Level 145 mmol/L (136-145) Potassium Level 3.7 mmol/L (3.5-5.1) Chloride Level 110 mmol/L (98-107) Carbon Dioxide Level 28 mmol/L (21-32) Anion Gap 7 (6-14) Blood Urea Nitrogen 84 mg/dL (8-26) Creatinine 2.3 mg/dL (0.7-1.3) Estimated GFR (Cockcroft-Gault) 28.0 Glucose Level 73 mg/dL (70-99) Calcium Level 8.3 mg/dL (8.5-10.1) Phosphorus Level 3.4 mg/dL (2.6-4.7) Magnesium Level 2.0 mg/dL (1.8-2.4) Test 12/27/20 08:19 Glucose (Fingerstick) 73 mg/dL (70-99) Objective: Assessment: 1. Left calcaneal black eschar. MRI neg for osteo R heel wound - Cellulitis is better 2. Peripheral arterial disease. 3. Left big toe ulcer. 4. Obesity. 5. Diabetes. 6. Hypertension. 7. Congestive heart failure. 8. Renal insufficiency. 9. Sulfa allergy Plan: Plan of Care Cont Augmentin and Zyvox (12/25) Awaiting Aortogram today cont off load Wound care per wound team D/W nursing AMADOR ROSA MD December 27, 2020 09:18
[2020-12-27] MEDS: hydrALAZINE 25 MG TABLET PO SCH ×3 (09:35→22:13)
[2020-12-27] MEDS: METOPROLOL SUCC 24HR ER 25 MG TAB.ER.24H. PO SCH (09:39)
--- NOTE | 2020-12-27 10:01 | PDOC ---
DATE OF SERVICE DATE: 12/27/20 TIME: 10:01 SUBJECTIVE ROS Stable , sitting up in chair, states feeling better OBJECTIVE Vital Signs Vital Signs Date Time Temp Pulse Resp B/P (MAP) Pulse Ox O2 Delivery O2 Flow Rate FiO2 12/27/20 09:39 61 145/65 12/27/20 07:00 97.8 20 92 Room Air 97.8 I & 0 Intake and Output 12/27/20 07:00 Intake Total 1710 ml Output Total 1200 ml Balance 510 ml Intake Oral 1580 ml IV Total 130 ml Output Urine Total 1200 ml # Bowel Movements 2 PHYSICAL EXAM Physical Exam GEN: Awake, Oriented x [], In [] distress EYES: Vision Unchanged, Conjunctiva Normal EN: No EN Drainage, Mucous Membranes [] NECK: [] JVD, [] JVP, Supple, [] Thyromegaly CVS: S1S2, [] Murmur, No Gallop, No Rub,[] Edema RESP: [] Rales, [] Rhonchi,[] Acc. Muscle Use GI: BS + ve, NO Bruit, Non Tender, Non Distended : [] CVA tenderness, [] Suprapubic Tenderness DIAGNOSIS/ASSESSMENT Assessment & Plan ESRD/ARF: Current fluid and E-lyte status does not necessitate emergent need for dialysis. Will re-evaluate for dialysis in the am and continue on [] schedule. ANEMIA; [] Aranap as ordered, [] Transfuse [] with next HD as needed HTN: Current BP meds as reviewed. See orders for changes. BONE & MINERAL: [] Discussed Plan of Care with family [] at bedside [] over the phone COMMENT/RELEVANT DATA Meds Current Medications Medications (Trade) Dose Ordered Sig/Redd Start Time Stop Time Status Last Admin Dose Admin Acetaminophen (Tylenol) 650 mg PRN Q4HRS PRN 12/20/20 21:45 12/20/20 23:02 650 MG Amoxicillin/ Clavulanate Potassium (Augmentin 875/ 125mg) 1 tab BID 12/25/20 09:00 12/26/20 20:50 1 TAB Apixaban (Eliquis) 2.5 mg BID 12/20/20 22:00 12/21/20 13:36 DC 12/21/20 09:00 2.5 MG Ascorbic Acid (Vitamin C) 500 mg BID 12/20/20 22:00 12/26/20 20:50 500 MG Atorvastatin Calcium (Lipitor) 40 mg HS 12/20/20 22:00 12/26/20 20:50 40 MG Buspirone HCl (Buspar) 10 mg PRN DAILY PRN 12/20/20 21:45 Dextrose (Dextrose 50%-Water Syringe) 12.5 gm PRN Q15MIN PRN 12/20/20 21:45 Docusate Sodium (Colace) 100 mg PRN DAILY PRN 12/20/20 21:45 Famotidine (Pepcid) 20 mg DAILY 12/21/20 09:00 12/26/20 08:43 20 MG Ferrous Sulfate (Feosol) 325 mg BIDWMEALS 12/24/20 17:00 12/26/20 17:24 325 MG Ferrous Sulfate (Iron Oral Solution) 300 mg BIDWMEALS 12/22/20 17:00 12/24/20 11:08 DC 12/24/20 08:54 300 MG Furosemide (Lasix) 40 mg BID94 12/26/20 10:30 12/26/20 17:25 40 MG Furosemide 100 mg/ Sodium Chloride 100 ml @ 0 mls/hr CONT PRN 12/21/20 11:30 12/26/20 10:28 DC 12/26/20 10:06 10 MLS/HR Hydralazine HCl (Apresoline) 25 mg TID 12/21/20 09:00 12/27/20 09:35 25 MG Insulin Glargine (Lantus Syringe) 15 unit QHS 12/20/20 22:00 12/26/20 20:53 15 UNIT Insulin Human Lispro (HumaLOG) 0-7 UNITS TIDWMEALS 12/21/20 08:00 Lactobacillus Rhamnosus (Culturelle) 1 cap BID 12/26/20 21:00 12/26/20 20:50 1 CAP Linezolid (Zyvox) 600 mg BID 12/25/20 09:00 12/26/20 20:50 600 MG Metoprolol Succinate (Toprol Xl) 25 mg DAILY 12/21/20 09:00 12/27/20 09:39 25 MG Nystatin (Nystop) 1 luna BID 12/20/20 22:00 12/26/20 20:50 1 LUNA Ondansetron HCl (Zofran) 4 mg PRN Q6HRS PRN 12/20/20 21:45 12/26/20 09:19 4 MG Polyethylene Glycol (miraLAX PACKET) 17 gm PRN DAILY PRN 12/22/20 12:00 Potassium Chloride (Klor-Con) 40 meq DAILY 12/24/20 09:00 12/26/20 08:44 40 MEQ Sennosides (Senna) 17.2 mg PRN BID PRN 12/20/20 21:45 12/21/20 21:11 17.2 MG Sertraline HCl (Zoloft) 50 mg DAILY 12/21/20 09:00 12/26/20 08:42 50 MG Lab Laboratory Tests Test 12/26/20 11:58 12/26/20 16:54 12/26/20 20:48 12/27/20 06:05 Glucose (Fingerstick) 79 mg/dL (70-99) 81 mg/dL (70-99) 113 mg/dL (70-99) White Blood Count 6.2 x10^3/uL (4.0-11.0) Red Blood Count 2.87 x10^6/uL (4.30-5.70) Hemoglobin 8.4 g/dL (13.0-17.5) Hematocrit 26.3 % (39.0-53.0) Mean Corpuscular Volume 92 fL (79-100) Mean Corpuscular Hemoglobin 29 pg (25-35) Mean Corpuscular Hemoglobin Concent 32 g/dL (31-37) Red Cell Distribution Width 18.8 % (11.5-14.5) Platelet Count 172 x10^3/uL (140-400) Neutrophils (%) (Auto) 56 % (31-73) Lymphocytes (%) (Auto) 20 % (24-48) Monocytes (%) (Auto) 10 % (0-9) Eosinophils (%) (Auto) 13 % (0-3) Basophils (%) (Auto) 1 % (0-3) Neutrophils # (Auto) 3.5 x10^3/uL (1.8-7.7) Lymphocytes # (Auto) 1.3 x10^3/uL (1.0-4.8) Monocytes # (Auto) 0.6 x10^3/uL (0.0-1.1) Eosinophils # (Auto) 0.8 x10^3/uL (0.0-0.7) Basophils # (Auto) 0.1 x10^3/uL (0.0-0.2) Sodium Level 145 mmol/L (136-145) Potassium Level 3.7 mmol/L (3.5-5.1) Chloride Level 110 mmol/L (98-107) Carbon Dioxide Level 28 mmol/L (21-32) Anion Gap 7 (6-14) Blood Urea Nitrogen 84 mg/dL (8-26) Creatinine 2.3 mg/dL (0.7-1.3) Estimated GFR (Cockcroft-Gault) 28.0 Glucose Level 73 mg/dL (70-99) Calcium Level 8.3 mg/dL (8.5-10.1) Phosphorus Level 3.4 mg/dL (2.6-4.7) Magnesium Level 2.0 mg/dL (1.8-2.4) Test 12/27/20 08:19 Glucose (Fingerstick) 73 mg/dL (70-99) Results All relevant outside records, renal labs, imaging studies, telemetry/EKG's were reviewed. Justicifation of Admission Dx: Justifications for Admission: Justification of Admission Dx: Yes BEATRIZ IBARRA MD December 27, 2020 10:01
--- NOTE | 2020-12-27 10:30 | PDOC ---
Date of Service: DATE: 12/27/20 TIME: 10:26 Objective: Objective: No GI concerns per nurse. Vital Signs: Vital Signs Date Time Temp Pulse Resp B/P (MAP) Pulse Ox O2 Delivery O2 Flow Rate FiO2 12/27/20 09:39 61 145/65 12/27/20 07:00 97.8 20 92 Room Air 97.8 Labs: Laboratory Tests Test 12/26/20 11:58 12/26/20 16:54 12/26/20 20:48 12/27/20 06:05 Glucose (Fingerstick) 79 mg/dL 81 mg/dL 113 mg/dL White Blood Count 6.2 x10^3/uL Red Blood Count 2.87 x10^6/uL Hemoglobin 8.4 g/dL Hematocrit 26.3 % Mean Corpuscular Volume 92 fL Mean Corpuscular Hemoglobin 29 pg Mean Corpuscular Hemoglobin Concent 32 g/dL Red Cell Distribution Width 18.8 % Platelet Count 172 x10^3/uL Neutrophils (%) (Auto) 56 % Lymphocytes (%) (Auto) 20 % Monocytes (%) (Auto) 10 % Eosinophils (%) (Auto) 13 % Basophils (%) (Auto) 1 % Neutrophils # (Auto) 3.5 x10^3/uL Lymphocytes # (Auto) 1.3 x10^3/uL Monocytes # (Auto) 0.6 x10^3/uL Eosinophils # (Auto) 0.8 x10^3/uL Basophils # (Auto) 0.1 x10^3/uL Sodium Level 145 mmol/L Potassium Level 3.7 mmol/L Chloride Level 110 mmol/L Carbon Dioxide Level 28 mmol/L Anion Gap 7 Blood Urea Nitrogen 84 mg/dL Creatinine 2.3 mg/dL Estimated GFR (Cockcroft-Gault) 28.0 Glucose Level 73 mg/dL Calcium Level 8.3 mg/dL Phosphorus Level 3.4 mg/dL Magnesium Level 2.0 mg/dL Test 12/27/20 08:19 Glucose (Fingerstick) 73 mg/dL Curr PE: GEN: NAD LUNGS: room air HEART: RR ABD: non-distended NEURO/PSYCH: sleeping, did not disturb A/P: PAD, CHF, CKD, CAD, A Fib Chronic anemia, +Hemoccult w/o obvious GI bleeding - s/p endotherapy on EGD 11/2020 - 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 Hgb stable. Justicifation of Admission Dx: Justifications for Admission: Justification of Admission Dx: Yes FABBY ROBERTSON December 27, 2020 10:30
[2020-12-27] MEDS ORDERED: IODIXANOL 320 MG/ML 100 ML VIAL. ONE (10:35)
[2020-12-27] MEDS ORDERED: LIDOCAINE 1% Multi-Dose 20 ML VIAL. ONE (10:35)
--- NOTE | 2020-12-27 11:09 | PDOC ---
PROGRESS NOTES Date of Service DATE: 12/27/20 TIME: 11:06 Subjective Subjective Patient resting in bed, awaiting procedure. Objective Objective Vital Signs Date Time Temp Pulse Resp B/P (MAP) Pulse Ox O2 Delivery O2 Flow Rate FiO2 12/27/20 09:39 61 145/65 12/27/20 07:00 97.8 20 92 Room Air 97.8 Intake and Output 12/27/20 07:00 Intake Total 1710 ml Output Total 1200 ml Balance 510 ml Intake Oral 1580 ml IV Total 130 ml Output Urine Total 1200 ml # Bowel Movements 2 Physical Exam Physical Exam Awake and alert Dressings dry and intact bilateral heels. Assessment Assessment Problems Medical Problems: (1) Anemia Status: Acute (2) CHF exacerbation Status: Acute Plan Plan of Care 75 year old male with PVD and left heel ulcer with large dark eschar. MRI does not suggest osteomyelitis in the calcaneus Recommend angiogram with possible percutaneous intervention to improve distal flow.Tentatively planned for today with CO2. CKD with baseline Cr 1.8-2.0, currently 2.3-nephrology managing. Patient will then need surgical debridement of left heel with possible left first toe amputation. Discussed plan with the patient and the risk with contrast and worsening renal failure. He expresses understanding and is willing to proceed. Comment Review of Relevant I have reviewed the following items mara (where applicable) has been applied. Labs Laboratory Tests Test 12/25/20 11:42 12/25/20 16:02 12/25/20 20:25 12/26/20 08:05 Glucose (Fingerstick) 107 mg/dL (70-99) 110 mg/dL (70-99) 136 mg/dL (70-99) 57 mg/dL (70-99) Test 12/26/20 08:10 12/26/20 11:58 12/26/20 16:54 12/26/20 20:48 White Blood Count 7.1 x10^3/uL (4.0-11.0) Red Blood Count 2.75 x10^6/uL (4.30-5.70) Hemoglobin 8.1 g/dL (13.0-17.5) Hematocrit 24.8 % (39.0-53.0) Mean Corpuscular Volume 90 fL (79-100) Mean Corpuscular Hemoglobin 30 pg (25-35) Mean Corpuscular Hemoglobin Concent 33 g/dL (31-37) Red Cell Distribution Width 18.5 % (11.5-14.5) Platelet Count 174 x10^3/uL (140-400) Neutrophils (%) (Auto) 58 % (31-73) Lymphocytes (%) (Auto) 19 % (24-48) Monocytes (%) (Auto) 10 % (0-9) Eosinophils (%) (Auto) 13 % (0-3) Basophils (%) (Auto) 1 % (0-3) Neutrophils # (Auto) 4.1 x10^3/uL (1.8-7.7) Lymphocytes # (Auto) 1.3 x10^3/uL (1.0-4.8) Monocytes # (Auto) 0.7 x10^3/uL (0.0-1.1) Eosinophils # (Auto) 0.9 x10^3/uL (0.0-0.7) Basophils # (Auto) 0.1 x10^3/uL (0.0-0.2) Sodium Level 149 mmol/L (136-145) Potassium Level 3.4 mmol/L (3.5-5.1) Chloride Level 111 mmol/L (98-107) Carbon Dioxide Level 28 mmol/L (21-32) Anion Gap 10 (6-14) Blood Urea Nitrogen 82 mg/dL (8-26) Creatinine 2.1 mg/dL (0.7-1.3) Estimated GFR (Cockcroft-Gault) 31.1 Glucose Level 51 mg/dL (70-99) Calcium Level 7.7 mg/dL (8.5-10.1) Phosphorus Level 2.8 mg/dL (2.6-4.7) Magnesium Level 2.1 mg/dL (1.8-2.4) Glucose (Fingerstick) 79 mg/dL (70-99) 81 mg/dL (70-99) 113 mg/dL (70-99) Test 12/27/20 06:05 12/27/20 08:19 White Blood Count 6.2 x10^3/uL (4.0-11.0) Red Blood Count 2.87 x10^6/uL (4.30-5.70) Hemoglobin 8.4 g/dL (13.0-17.5) Hematocrit 26.3 % (39.0-53.0) Mean Corpuscular Volume 92 fL (79-100) Mean Corpuscular Hemoglobin 29 pg (25-35) Mean Corpuscular Hemoglobin Concent 32 g/dL (31-37) Red Cell Distribution Width 18.8 % (11.5-14.5) Platelet Count 172 x10^3/uL (140-400) Neutrophils (%) (Auto) 56 % (31-73) Lymphocytes (%) (Auto) 20 % (24-48) Monocytes (%) (Auto) 10 % (0-9) Eosinophils (%) (Auto) 13 % (0-3) Basophils (%) (Auto) 1 % (0-3) Neutrophils # (Auto) 3.5 x10^3/uL (1.8-7.7) Lymphocytes # (Auto) 1.3 x10^3/uL (1.0-4.8) Monocytes # (Auto) 0.6 x10^3/uL (0.0-1.1) Eosinophils # (Auto) 0.8 x10^3/uL (0.0-0.7) Basophils # (Auto) 0.1 x10^3/uL (0.0-0.2) Sodium Level 145 mmol/L (136-145) Potassium Level 3.7 mmol/L (3.5-5.1) Chloride Level 110 mmol/L (98-107) Carbon Dioxide Level 28 mmol/L (21-32) Anion Gap 7 (6-14) Blood Urea Nitrogen 84 mg/dL (8-26) Creatinine 2.3 mg/dL (0.7-1.3) Estimated GFR (Cockcroft-Gault) 28.0 Glucose Level 73 mg/dL (70-99) Calcium Level 8.3 mg/dL (8.5-10.1) Phosphorus Level 3.4 mg/dL (2.6-4.7) Magnesium Level 2.0 mg/dL (1.8-2.4) Glucose (Fingerstick) 73 mg/dL (70-99) Laboratory Tests Test 12/26/20 11:58 12/26/20 16:54 12/26/20 20:48 12/27/20 06:05 Glucose (Fingerstick) 79 mg/dL (70-99) 81 mg/dL (70-99) 113 mg/dL (70-99) White Blood Count 6.2 x10^3/uL (4.0-11.0) Red Blood Count 2.87 x10^6/uL (4.30-5.70) Hemoglobin 8.4 g/dL (13.0-17.5) Hematocrit 26.3 % (39.0-53.0) Mean Corpuscular Volume 92 fL (79-100) Mean Corpuscular Hemoglobin 29 pg (25-35) Mean Corpuscular Hemoglobin Concent 32 g/dL (31-37) Red Cell Distribution Width 18.8 % (11.5-14.5) Platelet Count 172 x10^3/uL (140-400) Neutrophils (%) (Auto) 56 % (31-73) Lymphocytes (%) (Auto) 20 % (24-48) Monocytes (%) (Auto) 10 % (0-9) Eosinophils (%) (Auto) 13 % (0-3) Basophils (%) (Auto) 1 % (0-3) Neutrophils # (Auto) 3.5 x10^3/uL (1.8-7.7) Lymphocytes # (Auto) 1.3 x10^3/uL (1.0-4.8) Monocytes # (Auto) 0.6 x10^3/uL (0.0-1.1) Eosinophils # (Auto) 0.8 x10^3/uL (0.0-0.7) Basophils # (Auto) 0.1 x10^3/uL (0.0-0.2) Sodium Level 145 mmol/L (136-145) Potassium Level 3.7 mmol/L (3.5-5.1) Chloride Level 110 mmol/L (98-107) Carbon Dioxide Level 28 mmol/L (21-32) Anion Gap 7 (6-14) Blood Urea Nitrogen 84 mg/dL (8-26) Creatinine 2.3 mg/dL (0.7-1.3) Estimated GFR (Cockcroft-Gault) 28.0 Glucose Level 73 mg/dL (70-99) Calcium Level 8.3 mg/dL (8.5-10.1) Phosphorus Level 3.4 mg/dL (2.6-4.7) Magnesium Level 2.0 mg/dL (1.8-2.4) Test 12/27/20 08:19 Glucose (Fingerstick) 73 mg/dL (70-99) Medications Current Medications Apixaban (Eliquis) 2.5 mg BID PO Last administered on 12/21/20at 09:00; Start 12/20/20 at 22:00; Stop 12/21/20 at 13:36; Status DC Atorvastatin Calcium (Lipitor) 40 mg HS PO Last administered on 12/26/20at 20:50; Start 12/20/20 at 22:00 Buspirone HCl (Buspar) 10 mg PRN DAILY PRN PO ANXIETY / AGITATION; Start 12/20/20 at 21:45 Famotidine (Pepcid) 20 mg DAILY PO Last administered on 12/26/20at 08:43; Start 12/21/20 at 09:00 Hydralazine HCl (Apresoline) 25 mg TID PO Last administered on 12/27/20at 09:35; Start 12/21/20 at 09:00 Insulin Glargine (Lantus Syringe) 15 unit QHS SQ Last administered on 12/26/20at 20:53; Start 12/20/20 at 22:00 Metoprolol Succinate (Toprol Xl) 25 mg DAILY PO Last administered on 12/27/20at 09:39; Start 12/21/20 at 09:00 Nystatin (Nystop) 1 daniela BID TP Last administered on 12/26/20at 20:50; Start 12/20/20 at 22:00 Sennosides (Senna) 8.6 mg PRN BID PRN PO CONSTIPATION 1ST CHOICE; Start 12/20/20 at 21:45; Stop 12/20/20 at 21:52; Status DC Sertraline HCl (Zoloft) 50 mg DAILY PO Last administered on 12/26/20at 08:42; Start 12/21/20 at 09:00 Ascorbic Acid (Vitamin C) 500 mg BID PO Last administered on 12/26/20at 20:50; Start 12/20/20 at 22:00 Furosemide (Lasix) 40 mg 1X ONCE IVP Last administered on 12/20/20at 23:03; Start 12/20/20 at 21:45; Stop 12/20/20 at 21:46; Status DC Sennosides (Senna) 17.2 mg PRN BID PRN PO CONSTIPATION, 2ND CHOICE Last administered on 12/21/20at 21:11; Start 12/20/20 at 21:45 Docusate Sodium (Colace) 100 mg PRN DAILY PRN PO HARD STOOLS; Start 12/20/20 at 21:45 Ondansetron HCl (Zofran) 4 mg PRN Q6HRS PRN IVP NAUSEA/VOMITING Last administered on 12/26/20at 09:19; Start 12/20/20 at 21:45 Insulin Human Lispro (HumaLOG) 0-7 UNITS TIDWMEALS SQ ; Start 12/21/20 at 08:00 Dextrose (Dextrose 50%-Water Syringe) 12.5 gm PRN Q15MIN PRN IV SEE COMMENTS; Start 12/20/20 at 21:45 Acetaminophen (Tylenol) 650 mg PRN Q4HRS PRN PO TEMP OVER 100.4F OR MILD PAIN Last administered on 12/20/20at 23:02; Start 12/20/20 at 21:45 Furosemide 100 mg/ Sodium Chloride 100 ml @ 0 mls/hr CONT PRN IV SEE I/O RECORD Last administered on 12/26/20at 10:06; Start 12/21/20 at 11:30; Stop 12/26/20 at 10:28; Status DC Potassium Chloride (Klor-Con) 20 meq 1X ONCE PO Last administered on 12/21/20at 14:02; Start 12/21/20 at 12:15; Stop 12/21/20 at 12:16; Status DC Potassium Chloride (Klor-Con) 40 meq 1X ONCE PO Last administered on 12/22/20at 08:39; Start 12/22/20 at 08:30; Stop 12/22/20 at 08:31; Status DC Ferrous Sulfate (Iron Oral Solution) 300 mg BIDWMEALS PO Last administered on 12/24/20at 08:54; Start 12/22/20 at 17:00; Stop 12/24/20 at 11:08; Status DC Polyethylene Glycol (miraLAX PACKET) 17 gm PRN DAILY PRN PO CONSTIPATION, 1ST CHOICE; Start 12/22/20 at 12:00 Potassium Chloride (Klor-Con) 40 meq 1X ONCE PO Last administered on 12/23/20at 06:54; Start 12/23/20 at 07:00; Stop 12/23/20 at 07:01; Status DC Potassium Chloride (Klor-Con) 40 meq 1X ONCE PO Last administered on 12/23/20at 08:54; Start 12/23/20 at 09:00; Stop 12/23/20 at 09:01; Status DC Potassium Chloride (Klor-Con) 40 meq DAILY PO Last administered on 12/26/20at 08:44; Start 12/24/20 at 09:00 Ferrous Sulfate (Feosol) 325 mg BIDWMEALS PO Last administered on 12/26/20at 17 :24; Start 12/24/20 at 17:00 Linezolid (Zyvox) 600 mg BID PO Last administered on 12/26/20at 20:50; Start 12/25/20 at 09:00 Amoxicillin/ Clavulanate Potassium (Augmentin 875/ 125mg) 1 tab BID PO Last administered on 12/26/20at 20:50; Start 12/25/20 at 09:00 Furosemide (Lasix) 40 mg BID94 PO Last administered on 12/26/20at 17:25; Start 12/26/20 at 10:30 Lactobacillus Rhamnosus (Culturelle) 1 cap BID PO Last administered on 12/26/20at 20:50; Start 12/26/20 at 21:00 Iodixanol (Visipaque 320) 100 ml STK-MED ONCE .ROUTE ; Start 12/27/20 at 10:35; Stop 12/27/20 at 10:35; Status DC Lidocaine HCl (Lidocaine 1% 20ml Vial) 20 ml STK-MED ONCE .ROUTE ; Start 12/27/20 at 10:35; Stop 12/27/20 at 10:35; Status DC Heparin Sodium/ Sodium Chloride 1,000 ml @ As Directed STK-MED ONCE .ROUTE ; Start 12/27/20 at 10:35; Stop 12/27/20 at 10:35; Status DC Active Scripts Active Lantus (Insulin Glargine,Hum.rec.anlog) 100 Unit/1 Ml Vial 15 Unit SQ QHS 30 Days Famotidine 20 Mg Tablet 20 Mg PO DAILY 30 Days Acetaminophen Supp (Acetaminophen) 650 Mg Supp.rect 650 Mg MT PRN Q4HRS PRN 30 Days Hydralazine Hcl 25 Mg Tablet 25 Mg PO TID 30 Days Reported Tylenol (Acetaminophen) 325 Mg Tablet 1-2 Tab PO QID Vitamin C (Ascorbic Acid) 500 Mg Capsule 500 Mg PO BID Senokot (Sennosides) 8.6 Mg Tablet 1 Tab PO BID PRN 20 Days Potassium Chloride 20 Meq Tablet.er 20 Meq PO DAILY Nystatin 15 Gm Powder 1 Daniela TP BID 7 Days apply to affected area(s) Lasix (Furosemide) 40 Mg Tablet 40 Mg PO BIDBFRMEAL Zoloft (Sertraline Hcl) 50 Mg Tablet 50 Mg PO DAILY Metoprolol Succinate ( Xl ) (Metoprolol Succinate) 25 Mg Tab.er.24h 25 Mg PO DAILY Eliquis (Apixaban) 5 Mg Tablet 2.5 Mg PO BID Slow Release Iron (Ferrous Sulfate) 160 Mg Tablet.er 160 Mg PO DAILY Buspirone Hcl 10 Mg Tablet 1 Tab PO PRN DAILY PRN Atorvastatin Calcium 40 Mg Tablet 40 Mg PO HS Vitals/I & O Vital Sign - Last 24 Hours 12/26/20 12/26/20 12/26/20 12/26/20 13:32 15:00 19:25 20:06 Temp 97.5 97.8 97.5 97.8 Pulse 62 64 69 Resp 20 20 B/P (MAP) 126/56 135/63 (87) 137/71 (93) Pulse Ox 93 92 O2 Delivery Room Air Room Air Room Air 12/26/20 12/26/20 12/27/20 12/27/20 20:50 22:55 03:30 07:00 Temp 98.5 98.0 97.8 98.5 98.0 97.8 Pulse 69 70 66 61 Resp 20 20 20 B/P (MAP) 137/71 100/57 (71) 135/64 (87) 145/65 (91) Pulse Ox 92 92 92 O2 Delivery Room Air Room Air Room Air 12/27/20 12/27/20 09:35 09:39 Pulse 61 61 B/P (MAP) 145/65 145/65 Intake and Output 12/26/20 12/26/20 12/27/20 15:00 23:00 07:00 Intake Total 930 ml 660 ml 120 ml Output Total 850 ml 350 ml Balance 930 ml -190 ml -230 ml Justifications for Admission Other Justification CHF exacerbation [employer] December 27, 2020 11:09
--- NOTE | 2020-12-27 11:10 | PDOC ---
DATE OF SERVICE DATE: 12/27/20 TIME: 11:06 SUBJECTIVE ROS Stable , no complaints OBJECTIVE Vital Signs Vital Signs Date Time Temp Pulse Resp B/P (MAP) Pulse Ox O2 Delivery O2 Flow Rate FiO2 12/27/20 09:39 61 145/65 12/27/20 07:00 97.8 20 92 Room Air 97.8 I & 0 Intake and Output 12/27/20 07:00 Intake Total 1710 ml Output Total 1200 ml Balance 510 ml Intake Oral 1580 ml IV Total 130 ml Output Urine Total 1200 ml # Bowel Movements 2 PHYSICAL EXAM Physical Exam General: NAD HEENT: Atraumatic, OM moist Neck supple Lungs: Clear to auscultation Heart: Bradycardic, ESM aortic) Abdomen: Soft, NT Extremities: Bilat LE edema 2-3 + a Neuro: grossly normal Psych/Mental Status: Mood NL lowery + , No cva or SP tenderness Skin No rash DIAGNOSIS/ASSESSMENT Assessment & Plan REBECCA on CKD - Cardiorenal , to baseline Non Oliguric, Supportive care Strict I/O, avoid nephrotoxins Discussed risk of MASTER with angiogram /worsening renal function/Possibility of dialysis with patient CKD stage 3B/ 4 - Follows with Dr. Roca, baseline Cr per [facility] records prior to previous admission 1.8-2.0 but 2.3 to 2.5 since REBECCA recently in November 2020 HypoKalemia - stable, replace as indicated Hx of Acute blood loss anemia secondary to GIB. s/p cauterization of bleeding antral ulcer by GI team and PRBC in November . Hgb this admission low as well - defer to GI Renal calculus - RK- Possible intrarenal stones. LK Possible intrarenal stones to include a 13 mm focus of increased echogenicity at the upper pole.No e/o obstruction reported . Pt denies any past history Worsening LE edema- Bilat LE and anasarca- Wt up compared to his recent admission . off Lasix gtt , currently on Lasix PO BID ,Cardiology managing Left heel wound with dry gangrene and 1st toe ulcer- Plan for aortogram with CO2 angiograph . Patient will then need surgical debridement with possible left first toe amputation. Acute on chronic diastolic CHF; Echo 07/25 with preserved LV systolic function Anemia with h/o GIB with cauterization of bleeding antral ulcer CAD; s/p PCI/RHEA to LAD in 2018. clinically stable, CP free. PAD s/p past orbital atherectomy/TAX INVESTIGATOR to right posterior tibial artery. Permanent AFIB; rate controlled on BB SSS; s/p PPM ([employer]) Hypertension; controlled Valvular disease; mild to moderate aortic stenosis COMMENT/RELEVANT DATA Meds Current Medications Medications (Trade) Dose Ordered Sig/Redd Start Time Stop Time Status Last Admin Dose Admin Acetaminophen (Tylenol) 650 mg PRN Q4HRS PRN 12/20/20 21:45 12/20/20 23:02 650 MG Amoxicillin/ Clavulanate Potassium (Augmentin 875/ 125mg) 1 tab BID 12/25/20 09:00 12/26/20 20:50 1 TAB Apixaban (Eliquis) 2.5 mg BID 12/20/20 22:00 12/21/20 13:36 DC 12/21/20 09:00 2.5 MG Ascorbic Acid (Vitamin C) 500 mg BID 12/20/20 22:00 12/26/20 20:50 500 MG Atorvastatin Calcium (Lipitor) 40 mg HS 12/20/20 22:00 12/26/20 20:50 40 MG Buspirone HCl (Buspar) 10 mg PRN DAILY PRN 12/20/20 21:45 Dextrose (Dextrose 50%-Water Syringe) 12.5 gm PRN Q15MIN PRN 12/20/20 21:45 Docusate Sodium (Colace) 100 mg PRN DAILY PRN 12/20/20 21:45 Famotidine (Pepcid) 20 mg DAILY 12/21/20 09:00 12/26/20 08:43 20 MG Ferrous Sulfate (Feosol) 325 mg BIDWMEALS 12/24/20 17:00 12/26/20 17:24 325 MG Ferrous Sulfate (Iron Oral Solution) 300 mg BIDWMEALS 12/22/20 17:00 12/24/20 11:08 DC 12/24/20 08:54 300 MG Furosemide (Lasix) 40 mg BID94 12/26/20 10:30 12/26/20 17:25 40 MG Furosemide 100 mg/ Sodium Chloride 100 ml @ 0 mls/hr CONT PRN 12/21/20 11:30 12/26/20 10:28 DC 12/26/20 10:06 10 MLS/HR Heparin Sodium/ Sodium Chloride 1,000 ml @ As Directed STK-MED ONCE 12/27/20 10:35 12/27/20 10:35 DC Hydralazine HCl (Apresoline) 25 mg TID 12/21/20 09:00 12/27/20 09:35 25 MG Insulin Glargine (Lantus Syringe) 15 unit QHS 12/20/20 22:00 12/26/20 20:53 15 UNIT Insulin Human Lispro (HumaLOG) 0-7 UNITS TIDWMEALS 12/21/20 08:00 Iodixanol (Visipaque 320) 100 ml STK-MED ONCE 12/27/20 10:35 12/27/20 10:35 DC Lactobacillus Rhamnosus (Culturelle) 1 cap BID 12/26/20 21:00 12/26/20 20:50 1 CAP Lidocaine HCl (Lidocaine 1% 20ml Vial) 20 ml STK-MED ONCE 12/27/20 10:35 12/27/20 10:35 DC Linezolid (Zyvox) 600 mg BID 12/25/20 09:00 12/26/20 20:50 600 MG Metoprolol Succinate (Toprol Xl) 25 mg DAILY 12/21/20 09:00 12/27/20 09:39 25 MG Nystatin (Nystop) 1 luna BID 12/20/20 22:00 12/26/20 20:50 1 LUNA Ondansetron HCl (Zofran) 4 mg PRN Q6HRS PRN 12/20/20 21:45 12/26/20 09:19 4 MG Polyethylene Glycol (miraLAX PACKET) 17 gm PRN DAILY PRN 12/22/20 12:00 Potassium Chloride (Klor-Con) 40 meq DAILY 12/24/20 09:00 12/26/20 08:44 40 MEQ Sennosides (Senna) 17.2 mg PRN BID PRN 12/20/20 21:45 12/21/20 21:11 17.2 MG Sertraline HCl (Zoloft) 50 mg DAILY 12/21/20 09:00 12/26/20 08:42 50 MG Lab Laboratory Tests Test 12/26/20 11:58 12/26/20 16:54 12/26/20 20:48 12/27/20 06:05 Glucose (Fingerstick) 79 mg/dL (70-99) 81 mg/dL (70-99) 113 mg/dL (70-99) White Blood Count 6.2 x10^3/uL (4.0-11.0) Red Blood Count 2.87 x10^6/uL (4.30-5.70) Hemoglobin 8.4 g/dL (13.0-17.5) Hematocrit 26.3 % (39.0-53.0) Mean Corpuscular Volume 92 fL (79-100) Mean Corpuscular Hemoglobin 29 pg (25-35) Mean Corpuscular Hemoglobin Concent 32 g/dL (31-37) Red Cell Distribution Width 18.8 % (11.5-14.5) Platelet Count 172 x10^3/uL (140-400) Neutrophils (%) (Auto) 56 % (31-73) Lymphocytes (%) (Auto) 20 % (24-48) Monocytes (%) (Auto) 10 % (0-9) Eosinophils (%) (Auto) 13 % (0-3) Basophils (%) (Auto) 1 % (0-3) Neutrophils # (Auto) 3.5 x10^3/uL (1.8-7.7) Lymphocytes # (Auto) 1.3 x10^3/uL (1.0-4.8) Monocytes # (Auto) 0.6 x10^3/uL (0.0-1.1) Eosinophils # (Auto) 0.8 x10^3/uL (0.0-0.7) Basophils # (Auto) 0.1 x10^3/uL (0.0-0.2) Sodium Level 145 mmol/L (136-145) Potassium Level 3.7 mmol/L (3.5-5.1) Chloride Level 110 mmol/L (98-107) Carbon Dioxide Level 28 mmol/L (21-32) Anion Gap 7 (6-14) Blood Urea Nitrogen 84 mg/dL (8-26) Creatinine 2.3 mg/dL (0.7-1.3) Estimated GFR (Cockcroft-Gault) 28.0 Glucose Level 73 mg/dL (70-99) Calcium Level 8.3 mg/dL (8.5-10.1) Phosphorus Level 3.4 mg/dL (2.6-4.7) Magnesium Level 2.0 mg/dL (1.8-2.4) Test 12/27/20 08:19 Glucose (Fingerstick) 73 mg/dL (70-99) Results All relevant outside records, renal labs, imaging studies, telemetry/EKG's were reviewed. Justicifation of Admission Dx: Justifications for Admission: Justification of Admission Dx: Yes BEATRIZ IBARRA MD December 27, 2020 11:10
[2020-12-27] MEDS ORDERED: fentaNYL PF VIAL 100 MCG/2 ML VIAL ONE (11:40)
[2020-12-27] MEDS ORDERED: MIDAZOLAM HCL/PF 5 MG/5 ML VIAL. ONE (11:40)
[2020-12-27] MEDS ORDERED: HEPARIN for IV BOLUS 10,000 UNIT/10 ML VIAL. ONE (11:40)
[2020-12-27] MEDS ORDERED: HEPARIN for IV BOLUS 10,000 UNIT/10 ML VIAL. IV ONE (12:15)
[2020-12-27] MEDS ORDERED: IODIXANOL 320 MG/ML 100 ML VIAL. IART ONE (12:15)
[2020-12-27] MEDS ORDERED: fentaNYL PF VIAL 100 MCG/2 ML VIAL IV ONE (12:15)
[2020-12-27] MEDS ORDERED: MIDAZOLAM HCL/PF 5 MG/5 ML VIAL. IV ONE (12:15)
[2020-12-27] MEDS ORDERED: LIDOCAINE 1% Multi-Dose 20 ML VIAL. INJ ONE (12:15)
--- NOTE | 2020-12-27 13:35 | PDOC ---
Provider Note Date of Service: DATE: 12/27/20 TIME: 13:31 Provider Note Vascular follow-up note. Please refer to Sharmila Mistry, nurse practitioner note from 27 December. I agree with her assessment and plan. I reviewed his angiogram with Dr. Demarco. Patient has two-vessel runoff via the dorsal pedal and peroneal arteries with reconstitution to the area of the heel ulcer. Plan elective debridement of the left heel ulcer. Justifications for Admission Other Justification CHF exacerbation THEA GOODE II, MD December 27, 2020 13:35
[2020-12-27] MEDS: POTASSIUM CHLORIDE 20 MEQ TABLET.ER. PO SCH (16:16)
[2020-12-27] MEDS: LACTOBACILLUS RHAMNOSUS GG 1 CAPSULE. PO SCH ×2 (16:16→22:13)
[2020-12-27] MEDS: AMOXICILLIN/K CLAV 875/125MG TABLET. PO SCH ×2 (16:16→22:13)
[2020-12-27] MEDS: SERTRALINE 50 MG TABLET. PO SCH (16:16)
[2020-12-27] MEDS: LINEZOLID 600 MG TABLET PO SCH ×2 (16:17→22:13)
[2020-12-27] MEDS: ASCORBIC ACID 500 MG TABLET PO SCH ×2 (16:17→22:13)
[2020-12-27] MEDS: FAMOTIDINE 20 MG TABLET. PO SCH (16:17)
[2020-12-27] MEDS: NYSTATIN TOPICAL POWDER 15GM BOTTLE. TP SCH ×2 (16:18→22:15)
--- NOTE | 2020-12-27 17:07 | CARD ---
MR#: [id number] Date of Study: 12/27/2020 Ordering Physician: JANNETTE DEMARCO, Referring Physician: JANNETTE DEMARCO, Tech: RT Xander(R) APPROVED REPORT Patient StatusIN-PATIENT [place] Agent: Doris Higuera RT(R) Procedure(s) performed: MODERATE SEDATION TIME: 69 MINUTES FLUORO TIME: 6.5 MIN DOSE: [id number] CONTRAST: 30CC VISI Aortogram with LLE run-off HISTORY : The patient is a 75 year-old male with a history of . INDICATION FOR PROCEDURE The indication(s) include : Rest pain: Left lower extremity. CASE TECHNIQUE After explaining the risks, benefits, and alternative options, informed consent was obtained from the patient. IV conscious sedation was used throughout procedure with appropriate monitoring and was per formed in the presence of a registered nurse who was an independent trained observer other than the lady jaimes performing the procedure. During this case, Fluoroscopy and low osmolar contrast were used f or imaging. Specimen(s) Removed: N/A Estimated Blood loss: 15 cc's. PROCEDURE NARRATIVE Clinical information: 74-year-old male with a left leg ulcer at the heel was brought to the catheterization laboratory to r ule out any critical obstructive disease. Procedure details: Under 1% lidocaine local anesthesia a 5 Kazakh sheath was placed in the right common femoral artery v ia the modified Seldinger technique. Next, a 5 Kazakh Omni Flush catheter was placed in the abdomina l aorta and CO2 angiography digital subtraction images were obtained due to the patient's chronic pastora al insufficiency. Next, the Omni Flush catheter was used to engage the left common iliac artery. A glide catheter was then placed over the J-tip guidewire after the Omni Flush catheter was removed. C ontinued CO2 angiography was performed to the level of the popliteal artery. At this segment contras t angiography was obtained. Findings: Aorta has no significant disease Bilateral common iliac arteries no significant disease Bilateral external iliac arteries no significant disease Bilateral internal iliac arteries demonstrate mild diffuse irregularities Left common femoral artery has no significant disease Left superficial femoral artery has no significant disease Left profunda femoris artery has no significant disease Left popliteal artery has no significant disease Left anterior tibial artery has no significant disease Left peroneal artery has no significant disease Left posterior tibial artery is occluded in the proximal segment with poor reconstitution of the dist al level. The angiogram was reviewed with the vascular surgery service and they felt that the patient had adequ ate runoff to the foot for further debridement and wound intervention of the heel ulcer. Therefore f urther intervention was deferred. The right groin sheath was removed and hemostasis was achieved wit h an Angio-Seal device. Total contrast 30 mL. No acute complications noted. Conclusion 1. No significant aortoiliac disease bilaterally. 2. Isolated left posterior tibial artery occlusion with adequate two-vessel runoff to the distal cindy t and calcaneal area. Recommendations 1. Case discussed with vascular surgery service and overall the patient is felt to have adequate run off to the foot for further intervention with debridement of the left heel ulcer. 2. Continue aggressive risk factor modification. Signed by : Jannette Demarco, Electronically Approved : 12/27/2020 17:06:41
[2020-12-27] MEDS: INSULIN GLARGINE SYRINGE. SQ SCH (21:00)
[2020-12-27] MEDS: ATORVASTATIN CALCIUM 40 MG TABLET. PO SCH (22:13)
[2020-12-28 03:27] VITALS: BP 141/66
[2020-12-28 07:00] VITALS: BP 131/62
[2020-12-28 07:42] LABS: BASO # 0.1 x10^3/uL (0.0-0.2); BASO % 1 % (0-3); EOS # 0.8 x10^3/uL (0.0-0.7); EOS % 13 % (0-3); HEMATOCRIT 25.6 % (39.0-53.0); HEMOGLOBIN 8.1 g/dL (13.0-17.5); LYMPH % 15 % (24-48); MEAN CORPUSCULAR HEMOGLOBIN 29 pg (25-35); MEAN CORPUSCULAR HGB CONC 32 g/dL (31-37); MEAN CORPUSCULAR VOLUME 92 fL (79-100); MONO # 0.7 x10^3/uL (0.0-1.1); MONO % 11 % (0-9); NEUT # 3.9 x10^3/uL (1.8-7.7); NEUT % 60 % (31-73); PLATELET COUNT 164 x10^3/uL (140-400); RED BLOOD COUNT 2.77 x10^6/uL (4.30-5.70); RED CELL DISTRIBUTION WIDTH 18.3 % (11.5-14.5); WHITE BLOOD COUNT 6.5 x10^3/uL (4.0-11.0)
[2020-12-28 07:56] LABS: CALCIUM 7.9 mg/dL (8.5-10.1); CREATININE 2.5 mg/dL (0.7-1.3); GFR 25.4; POTASSIUM 4.2 mmol/L (3.5-5.1)
[2020-12-28] MEDS: INSULIN LISPRO 300 UNITS/3 ML VIAL. SQ SCH ×3 (08:00→17:00)
--- NOTE | 2020-12-28 08:28 | PDOC ---
[employer] PROGRESS NOTE Date of Service DOS: DATE: 12/28/20 TIME: 08:23 Chief Complaint Chief Complaint Acute volume overload Acute on chronic CHF exacerbation Hypokalemia History of chronic kidney disease Normocytic anemia, possible chronic GI blood loss with EGD showing antral gastric ulcer Left lower extremity wound ulcer with dry gangrene Morbid obesity, OHS, suspect ROBB Severe protein malnutrition History of diabetes mellitus type 2 History of peripheral vascular disease History of atrial fibrillation History of bradycardia status post pacemaker placement History of peripheral vascular disease Hypertension Dyslipidemia Admit to medicine for further management Pending MRI of lower extremity today Appreciate vascular surgery recommendationwe will obtain MRI to determine level of possible amputation ID consulted IV Lasix drip started Strict I's and O's Nephrology consult Cardiology consult Trend hemoglobin if less than 7 then transfuse 1 unit Eliquis for DVT prophylaxis Pepcid GI prophylaxis ADA diet Full code Discussed with RN and SW Disposition inpatient management as above Surrogate decision maker is Phuong Mathis History of Present Illness History of Present Illness 12/28/2020 Afebrile, denies shortness of breath. Abdominal aortogram yesterday showed no significant aortoiliac disease bilaterally, isolated left posterior tibial artery occlusion with adequate two-vessel runoff to the distal foot and calcaneal area. Overall the patient is felt to have adequate runoff to the foot for further intervention with debridement of the left heel ulcer. I believe the plan is for elective debridement of left heel ulcer tomorrow. Discussed with RN. 12/27/2020 Afebrile, currently on room air. Off Lasix drip, currently Lasix 40 mg twice daily. Net positive fluid balance overnight, 510mL. Continue p.o. Augmentin and Zyvox. Aortogram pending today. 12/26/2020 No acute events overnight. Patient seen and examined bedside. -2.5 L output in the urine in the past 24 hours. No complaints from the patient. Pending aortogram with LLE runoff with vascular surgery. Follow-up 12/24/2020 Patient was seen and examined in room today. Awaiting plan from vascular/cardio on possible PCI/angio of LLE. Case discussed with RN and case management. Chart and specialist notes reviewed. 12/23/2020 No acute events overnight. Patient seen and examined bedside. Pedal edema has improved total of -2.3 L of urine output. Low potassium today will replace IV and p.o. Creatinine has also improved. Pending MRI versus CT of left lower extremity. Patient's chart, labs, images were reviewed and discussed with RN 12/22/2020 No acute events overnight patient seen and examined bedside. No significant weight loss with Lasix drip. Will defer further fluid offloading with cardiology. Pending MRI and further vascular surgery recommendations for lower extremity foot ulcer. Patient's chart, labs, images were reviewed and discussed with RN 12/21/2020 No acute events overnight. Patient has adequate urine output and feels less fluid overload. Documented -580 cc. Patient's chart, labs, images were reviewed and discussed with RN 75 year old male who was sent here from [facility] for evaluation due to bilateral lower extremity swelling, worsening renal function. He has history of CHF, history of chronic renal failure. Patient was sent here by the [employer] there today for evaluation of bilateral lower extremity swelling and increased renal f unction test. Patient denies any chest pain, denies any cough or fever. Patient does have trouble breathing with exertion. Patient says they told him to come here to be admitted so they can do colonoscopy because he has been anemic as well. Patient denies any rectal bleeding. His weight today is 147 kg Upon chart review patient was seen in November 04 09/12/2020 for GI bleed.. Eliquis was actually restarted on 11/09/2020. And also had a pacemaker placed on 11/09/2020 and tolerated procedure well. Patient also does follow-up with Dr. Chau with nephrology and his baseline creatinine appears to be between 1.8-2.0. Vitals/I&O Vitals/I&O: Vital Signs Date Time Temp Pulse Resp B/P (MAP) Pulse Ox O2 Delivery O2 Flow Rate FiO2 12/28/20 03:27 97.8 70 16 141/66 (91) 94 Room Air 97.8 12/27/20 13:09 2.0 I & O 0 12/27/20 12/27/20 12/28/20 15:00 23:00 07:00 Intake Total 0 ml 500 ml 0 ml Output Total 650 ml Balance 0 ml 500 ml -650 ml Physical Exam Physical Exam: GENERAL: Alert, oriented gentleman, not in any distress. HEENT: Both pupils are round and reacting. No conjunctival lesion. No lesion in the mouth. NECK: Supple. No JVP. No lymphadenopathy. LUNGS: Clear. HEART: S1, S2 regular. Pacer site clean ABDOMEN: Soft, nontender. No organomegaly. Obeses EXTREMITIES: Edema present bilaterally less today. There is ulcer on the left big toe as well as black eschar on the left calcaneum. R heel with mild wound/ Mild cellullitis on LLE - improved. Dorsalis pedis is not palpable. SKIN: Rest of skin exam is unremarkable. NEUROLOGIC: The patient is alert, awake, and appropriate. No focal neurologic deficit. General: Alert, Oriented X3, Cooperative, No acute distress Heart: Other (2/6 sysotlic murmur, IRRR- tele AFIB. int V pacing ) Lungs: Clear, Other Abdomen: Soft Extremities: Other (2-3+ bilateral LE edema, anasarca ) Skin: No significant lesion Labs Labs: Laboratory Tests Test 12/27/20 12:52 12/27/20 13:31 12/27/20 17:14 12/27/20 20:44 Activated Clotting Time 213 sec (92-181) Glucose (Fingerstick) 62 mg/dL (70-99) 115 mg/dL (70-99) 100 mg/dL (70-99) Test 12/28/20 07:10 12/28/20 07:57 White Blood Count 6.5 x10^3/uL (4.0-11.0) Red Blood Count 2.77 x10^6/uL (4.30-5.70) Hemoglobin 8.1 g/dL (13.0-17.5) Hematocrit 25.6 % (39.0-53.0) Mean Corpuscular Volume 92 fL (79-100) Mean Corpuscular Hemoglobin 29 pg (25-35) Mean Corpuscular Hemoglobin Concent 32 g/dL (31-37) Red Cell Distribution Width 18.3 % (11.5-14.5) Platelet Count 164 x10^3/uL (140-400) Neutrophils (%) (Auto) 60 % (31-73) Lymphocytes (%) (Auto) 15 % (24-48) Monocytes (%) (Auto) 11 % (0-9) Eosinophils (%) (Auto) 13 % (0-3) Basophils (%) (Auto) 1 % (0-3) Neutrophils # (Auto) 3.9 x10^3/uL (1.8-7.7) Lymphocytes # (Auto) 1.0 x10^3/uL (1.0-4.8) Monocytes # (Auto) 0.7 x10^3/uL (0.0-1.1) Eosinophils # (Auto) 0.8 x10^3/uL (0.0-0.7) Basophils # (Auto) 0.1 x10^3/uL (0.0-0.2) Sodium Level 146 mmol/L (136-145) Potassium Level 4.2 mmol/L (3.5-5.1) Chloride Level 111 mmol/L (98-107) Carbon Dioxide Level 28 mmol/L (21-32) Anion Gap 7 (6-14) Blood Urea Nitrogen 81 mg/dL (8-26) Creatinine 2.5 mg/dL (0.7-1.3) Estimated GFR (Cockcroft-Gault) 25.4 Glucose Level 68 mg/dL (70-99) Calcium Level 7.9 mg/dL (8.5-10.1) Glucose (Fingerstick) 79 mg/dL (70-99) Assessment and Plan Assessmemt and Plan Problems Medical Problems: (1) Anemia Status: Acute (2) CHF exacerbation Status: Acute Comment Review of Relevant I have reviewed the following items mara (where applicable) has been applied. Medications: Current Medications Medications (Trade) Dose Ordered Sig/Redd Route PRN Reason Start Time Stop Time Status Last Admin Dose Admin Heparin Sodium/ Sodium Chloride (HEPARIN for ARTERIAL LINE FLUSH) 1,000 unit 1X ONCE IART 12/27/20 12:15 12/27/20 12:19 DC 12/27/20 13:04 Heparin Sodium/ Sodium Chloride (HEPARIN for ARTERIAL LINE FLUSH) 1,000 unit 1X ONCE IART 12/27/20 12:15 12/27/20 12:19 DC 12/27/20 13:04 Midazolam HCl (Versed) 5 mg 1X ONCE IV 12/27/20 12:15 12/27/20 12:19 DC 12/27/20 13:05 Fentanyl Citrate (Fentanyl 2ml Vial) 100 mcg 1X ONCE IV 12/27/20 12:15 12/27/20 12:19 DC 12/27/20 13:06 Iodixanol (Visipaque 320) 100 ml 1X ONCE IART 12/27/20 12:15 12/27/20 12:19 DC 12/27/20 13:04 Heparin Sodium (Porcine) (Heparin Sodium) 2,500 unit 1X ONCE IV 12/27/20 12:15 12/27/20 12:19 DC 12/27/20 13:08 Lidocaine HCl (Lidocaine 1% 20ml Vial) 20 ml 1X ONCE INJ 12/27/20 12:15 12/27/20 12:19 DC 12/27/20 13:04 Justifications for Admission Other Justification CHF exacerbation HOANG MAGAÑA MD December 28, 2020 08:28
--- NOTE | 2020-12-28 08:56 | PDOC ---
Infectious Disease Note Subjective: Subjective Patient is feeling better Underwent aortogram yesterday Occasional loose bowel movements Denies fever, nausea, vomiting, abdominal pain Vital Signs: Vital Signs Vital Signs Date Time Temp Pulse Resp B/P (MAP) Pulse Ox O2 Delivery O2 Flow Rate FiO2 12/28/20 03:27 97.8 70 16 141/66 (91) 94 Room Air 97.8 12/27/20 13:09 2.0 Physical Exam: PHYSICAL EXAM GENERAL: Alert, oriented gentleman, not in any distress. HEENT: Both pupils are round and reacting. No conjunctival lesion. No lesion in the mouth. NECK: Supple. No JVP. No lymphadenopathy. LUNGS: Clear. HEART: S1, S2 regular. Pacer site clean ABDOMEN: Soft, nontender. No organomegaly. Obeses EXTREMITIES: Edema present bilaterally less today. There is ulcer on the left big toe as well as black eschar on the left calcaneum. R heel with mild wound/ Mild cellullitis on LLE - improved. Dorsalis pedis is not palpable. SKIN: Rest of skin exam is unremarkable. NEUROLOGIC: The patient is alert, awake, and appropriate. No focal neurologic deficit. Medications: Inpatient Meds: Medications reviewed. Labs: Lab Laboratory Tests Test 12/27/20 12:52 12/27/20 13:31 12/27/20 17:14 12/27/20 20:44 Activated Clotting Time 213 sec (92-181) Glucose (Fingerstick) 62 mg/dL (70-99) 115 mg/dL (70-99) 100 mg/dL (70-99) Test 12/28/20 07:10 12/28/20 07:57 White Blood Count 6.5 x10^3/uL (4.0-11.0) Red Blood Count 2.77 x10^6/uL (4.30-5.70) Hemoglobin 8.1 g/dL (13.0-17.5) Hematocrit 25.6 % (39.0-53.0) Mean Corpuscular Volume 92 fL (79-100) Mean Corpuscular Hemoglobin 29 pg (25-35) Mean Corpuscular Hemoglobin Concent 32 g/dL (31-37) Red Cell Distribution Width 18.3 % (11.5-14.5) Platelet Count 164 x10^3/uL (140-400) Neutrophils (%) (Auto) 60 % (31-73) Lymphocytes (%) (Auto) 15 % (24-48) Monocytes (%) (Auto) 11 % (0-9) Eosinophils (%) (Auto) 13 % (0-3) Basophils (%) (Auto) 1 % (0-3) Neutrophils # (Auto) 3.9 x10^3/uL (1.8-7.7) Lymphocytes # (Auto) 1.0 x10^3/uL (1.0-4.8) Monocytes # (Auto) 0.7 x10^3/uL (0.0-1.1) Eosinophils # (Auto) 0.8 x10^3/uL (0.0-0.7) Basophils # (Auto) 0.1 x10^3/uL (0.0-0.2) Sodium Level 146 mmol/L (136-145) Potassium Level 4.2 mmol/L (3.5-5.1) Chloride Level 111 mmol/L (98-107) Carbon Dioxide Level 28 mmol/L (21-32) Anion Gap 7 (6-14) Blood Urea Nitrogen 81 mg/dL (8-26) Creatinine 2.5 mg/dL (0.7-1.3) Estimated GFR (Cockcroft-Gault) 25.4 Glucose Level 68 mg/dL (70-99) Calcium Level 7.9 mg/dL (8.5-10.1) Glucose (Fingerstick) 79 mg/dL (70-99) Objective: Assessment: 1. Left calcaneal black eschar. MRI neg for osteo R heel wound - Cellulitis is better 2. Peripheral arterial disease. 3. Left big toe ulcer. 4. Obesity. 5. Diabetes. 6. Hypertension. 7. Congestive heart failure. 8. Renal insufficiency. 9. Sulfa allergy Plan: Plan of Care Continue Augmentin and Zyvox cont off load Wound care per wound team Check C. difficile if diarrhea continues AMADOR ROSA MD December 28, 2020 08:56
[2020-12-28] MEDS: LACTOBACILLUS RHAMNOSUS GG 1 CAPSULE. PO SCH ×2 (09:33→20:53)
[2020-12-28] MEDS: ASCORBIC ACID 500 MG TABLET PO SCH ×2 (09:33→20:53)
[2020-12-28] MEDS: LINEZOLID 600 MG TABLET PO SCH ×2 (09:34→20:53)
[2020-12-28] MEDS: hydrALAZINE 25 MG TABLET PO SCH ×3 (09:34→20:53)
[2020-12-28] MEDS: POTASSIUM CHLORIDE 20 MEQ TABLET.ER. PO SCH (09:35)
[2020-12-28] MEDS: FUROSEMIDE 40 MG TABLET. PO SCH ×2 (09:35→14:52)
[2020-12-28] MEDS: AMOXICILLIN/K CLAV 875/125MG TABLET. PO SCH ×2 (09:35→20:53)
[2020-12-28] MEDS: FAMOTIDINE 20 MG TABLET. PO SCH (09:35)
[2020-12-28] MEDS: FERROUS SULFATE 325 MG TABLET. PO SCH ×2 (09:35→17:58)
[2020-12-28] MEDS: METOPROLOL SUCC 24HR ER 25 MG TAB.ER.24H. PO SCH (09:35)
[2020-12-28] MEDS: SERTRALINE 50 MG TABLET. PO SCH (09:35)
[2020-12-28] MEDS: NYSTATIN TOPICAL POWDER 15GM BOTTLE. TP SCH ×2 (09:36→20:54)
--- NOTE | 2020-12-28 09:42 | PDOC ---
Date of Service: DATE: 12/28/20 TIME: 09:40 Subjective: Subjective: No GI complaints - tolerating diet, stooling w/o issue, no abd pain. Objective: Objective: D/w nurse - no GI concerns. Possible heel debridement 12/29. Vital Signs: Vital Signs Date Time Temp Pulse Resp B/P (MAP) Pulse Ox O2 Delivery O2 Flow Rate FiO2 12/28/20 09:35 83 131/62 12/28/20 07:00 97.9 18 95 Room Air 97.9 12/27/20 13:09 2.0 Labs: Laboratory Tests Test 12/27/20 12:52 12/27/20 13:31 12/27/20 17:14 12/27/20 20:44 Activated Clotting Time 213 sec Glucose (Fingerstick) 62 mg/dL 115 mg/dL 100 mg/dL Test 12/28/20 07:10 12/28/20 07:57 White Blood Count 6.5 x10^3/uL Red Blood Count 2.77 x10^6/uL Hemoglobin 8.1 g/dL Hematocrit 25.6 % Mean Corpuscular Volume 92 fL Mean Corpuscular Hemoglobin 29 pg Mean Corpuscular Hemoglobin Concent 32 g/dL Red Cell Distribution Width 18.3 % Platelet Count 164 x10^3/uL Neutrophils (%) (Auto) 60 % Lymphocytes (%) (Auto) 15 % Monocytes (%) (Auto) 11 % Eosinophils (%) (Auto) 13 % Basophils (%) (Auto) 1 % Neutrophils # (Auto) 3.9 x10^3/uL Lymphocytes # (Auto) 1.0 x10^3/uL Monocytes # (Auto) 0.7 x10^3/uL Eosinophils # (Auto) 0.8 x10^3/uL Basophils # (Auto) 0.1 x10^3/uL Sodium Level 146 mmol/L Potassium Level 4.2 mmol/L Chloride Level 111 mmol/L Carbon Dioxide Level 28 mmol/L Anion Gap 7 Blood Urea Nitrogen 81 mg/dL Creatinine 2.5 mg/dL Estimated GFR (Cockcroft-Gault) 25.4 Glucose Level 68 mg/dL Calcium Level 7.9 mg/dL Glucose (Fingerstick) 79 mg/dL Imaging: Abd Angio 12/27 Conclusion 1. No significant aortoiliac disease bilaterally. 2. Isolated left posterior tibial artery occlusion with adequate two-vessel ru noff to the distal foot and calcaneal area. Recommendations 1. Case discussed with vascular surgery service and overall the patient is felt to have adequate runoff to the foot for further intervention with debridement of the left heel ulcer. 2. Continue aggressive risk factor modification. PE: GEN: NAD HEENT: Atraumatic, PERRLA LUNGS: CTAB HEART: RRR, no murmurs ABD: NABS, S/ND/NT, no masses EXTREMITY: No edema SKIN: No rashes, no jaundice NEURO/PSYCH: A & O 3 A/P: PAD Chronic anemia - stable w/o obvious GI bleeding, h/o s/p endotherapy last month, on H2 severiano (considering CKD) and iron -- Continue same per GI. Eventually consider outpt colonoscopy. Justicifation of Admission Dx: Justifications for Admission: Justification of Admission Dx: Yes FABBY ROBERTSON December 28, 2020 09:42
[2020-12-28] MEDS: ONDANSETRON PF 4 MG/2 ML VIAL. IVP PRN (09:57)
--- NOTE | 2020-12-28 10:23 | PDOC ---
DATE OF SERVICE DATE: 12/28/20 TIME: 10:21 SUBJECTIVE ROS Stable , no complaints OBJECTIVE Vital Signs Vital Signs Date Time Temp Pulse Resp B/P (MAP) Pulse Ox O2 Delivery O2 Flow Rate FiO2 12/28/20 09:35 83 131/62 12/28/20 07:00 97.9 18 95 Room Air 97.9 12/27/20 13:09 2.0 I & 0 Intake and Output 12/28/20 07:00 Intake Total 500 ml Output Total 650 ml Balance -150 ml Intake Oral 500 ml Output Urine Total 650 ml # Bowel Movements 1 PHYSICAL EXAM Physical Exam General: NAD HEENT: Atraumatic, OM moist Neck supple Lungs: Clear to auscultation Heart: Bradycardic, ESM aortic) Abdomen: Soft, NT Extremities: Bilat LE edema 2-3 + a Neuro: grossly normal Psych/Mental Status: Mood NL lowery + , No cva or SP tenderness Skin No rash DIAGNOSIS/ASSESSMENT Assessment & Plan REBECCA on CKD - Cardiorenal , improved to baseline , Cr up again Non Oliguric, Supportive care Strict I/O, avoid over diuresis (Wt from 140's to 109 as recorded in chart ? accuracy ) , recommend gentle hydration , discussed with cardiology CKD stage 3B/ 4 - Follows with Dr. Roca, baseline Cr per [facility] records prior to previous admission 1.8-2.0 but 2.3 to 2.5 since REBECCA recently in November 2020 HypoKalemia - stable, replace as indicated Hx of Acute blood loss anemia secondary to GIB. s/p cauterization of bleeding antral ulcer by GI team and PRBC in November . Hgb this admission low as well - defer to GI Renal calculus - RK- Possible intrarenal stones. LK Possible intrarenal stones to include a 13 mm focus of increased echogenicity at the upper pole.No e/o obstruction reported . Pt denies any past history Worsening LE edema- Bilat LE and anasarca- Wt up compared to his recent admission . off Lasix gtt , currently on Lasix PO BID ,Cardiology managing Left heel wound with dry gangrene and 1st toe ulcer- s/p CO2 angiograph on 12/28 Acute on chronic diastolic CHF; Echo 07/25 with preserved LV systolic function Anemia with h/o GIB with cauterization of bleeding antral ulcer CAD; s/p PCI/RHEA to LAD in 2018. clinically stable, CP free. PAD s/p past orbital atherectomy/[employer] to right posterior tibial artery. Permanent AFIB; rate controlled on BB SSS; s/p PPM ([employer]) Hypertension; controlled Valvular disease; mild to moderate aortic stenosis COMMENT/RELEVANT DATA Meds Current Medications Medications (Trade) Dose Ordered Sig/Redd Start Time Stop Time Status Last Admin Dose Admin Acetaminophen (Tylenol) 650 mg PRN Q4HRS PRN 12/20/20 21:45 12/20/20 23:02 650 MG Amoxicillin/ Clavulanate Potassium (Augmentin 875/ 125mg) 1 tab BID 12/25/20 09:00 12/28/20 09:35 1 TAB Apixaban (Eliquis) 2.5 mg BID 12/20/20 22:00 12/21/20 13:36 DC 12/21/20 09:00 2.5 MG Ascorbic Acid (Vitamin C) 500 mg BID 12/20/20 22:00 12/28/20 09:33 500 MG Atorvastatin Calcium (Lipitor) 40 mg HS 12/20/20 22:00 12/27/20 22:13 40 MG Buspirone HCl (Buspar) 10 mg PRN DAILY PRN 12/20/20 21:45 Dextrose (Dextrose 50%-Water Syringe) 12.5 gm PRN Q15MIN PRN 12/20/20 21:45 Docusate Sodium (Colace) 100 mg PRN DAILY PRN 12/20/20 21:45 Famotidine (Pepcid) 20 mg DAILY 12/21/20 09:00 12/28/20 09:35 20 MG Fentanyl Citrate (Fentanyl 2ml Vial) 100 mcg 1X ONCE 12/27/20 12:15 12/27/20 12:19 DC 12/27/20 13:06 50 MCG Ferrous Sulfate (Feosol) 325 mg BIDWMEALS 12/24/20 17:00 12/28/20 09:35 325 MG Ferrous Sulfate (Iron Oral Solution) 300 mg BIDWMEALS 12/22/20 17:00 12/24/20 11:08 DC 12/24/20 08:54 300 MG Furosemide (Lasix) 40 mg BID94 12/26/20 10:30 12/28/20 09:35 40 MG Furosemide 100 mg/ Sodium Chloride 100 ml @ 0 mls/hr CONT PRN 12/21/20 11:30 12/26/20 10:28 DC 12/26/20 10:06 10 MLS/HR Heparin Sodium (Porcine) (Heparin Sodium) 2,500 unit 1X ONCE 12/27/20 12:15 12/27/20 12:19 DC 12/27/20 13:08 5,500 UNIT Heparin Sodium/ Sodium Chloride (HEPARIN for ARTERIAL LINE FLUSH) 1,000 unit 1X ONCE 12/27/20 12:15 12/27/20 12:19 DC 12/27/20 13:04 1,000 UNIT Hydralazine HCl (Apresoline) 25 mg TID 12/21/20 09:00 12/28/20 09:34 25 MG Insulin Glargine (Lantus Syringe) 15 unit QHS 12/20/20 22:00 12/26/20 20:53 15 UNIT Insulin Human Lispro (HumaLOG) 0-7 UNITS TIDWMEALS 12/21/20 08:00 Iodixanol (Visipaque 320) 100 ml 1X ONCE 12/27/20 12:15 12/27/20 12:19 DC 12/27/20 13:04 30 ML Lactobacillus Rhamnosus (Culturelle) 1 cap BID 12/26/20 21:00 12/28/20 09:33 1 CAP Lidocaine HCl (Lidocaine 1% 20ml Vial) 20 ml 1X ONCE 12/27/20 12:15 12/27/20 12:19 DC 12/27/20 13:04 10 ML Linezolid (Zyvox) 600 mg BID 12/25/20 09:00 12/28/20 09:34 600 MG Metoprolol Succinate (Toprol Xl) 25 mg DAILY 12/21/20 09:00 12/28/20 09:35 25 MG Midazolam HCl (Versed) 5 mg 1X ONCE 12/27/20 12:15 12/27/20 12:19 DC 12/27/20 13:05 1 MG Nystatin (Nystop) 1 luna BID 12/20/20 22:00 12/28/20 09:36 1 LUNA Ondansetron HCl (Zofran) 4 mg PRN Q6HRS PRN 12/20/20 21:45 12/28/20 09:57 4 MG Polyethylene Glycol (miraLAX PACKET) 17 gm PRN DAILY PRN 12/22/20 12:00 Potassium Chloride (Klor-Con) 40 meq DAILY 12/24/20 09:00 12/28/20 09:35 40 MEQ Sennosides (Senna) 17.2 mg PRN BID PRN 12/20/20 21:45 12/21/20 21:11 17.2 MG Sertraline HCl (Zoloft) 50 mg DAILY 12/21/20 09:00 12/28/20 09:35 50 MG Lab Laboratory Tests Test 12/27/20 12:52 12/27/20 13:31 12/27/20 17:14 12/27/20 20:44 Activated Clotting Time 213 sec (92-181) Glucose (Fingerstick) 62 mg/dL (70-99) 115 mg/dL (70-99) 100 mg/dL (70-99) Test 12/28/20 07:10 12/28/20 07:57 White Blood Count 6.5 x10^3/uL (4.0-11.0) Red Blood Count 2.77 x10^6/uL (4.30-5.70) Hemoglobin 8.1 g/dL (13.0-17.5) Hematocrit 25.6 % (39.0-53.0) Mean Corpuscular Volume 92 fL (79-100) Mean Corpuscular Hemoglobin 29 pg (25-35) Mean Corpuscular Hemoglobin Concent 32 g/dL (31-37) Red Cell Distribution Width 18.3 % (11.5-14.5) Platelet Count 164 x10^3/uL (140-400) Neutrophils (%) (Auto) 60 % (31-73) Lymphocytes (%) (Auto) 15 % (24-48) Monocytes (%) (Auto) 11 % (0-9) Eosinophils (%) (Auto) 13 % (0-3) Basophils (%) (Auto) 1 % (0-3) Neutrophils # (Auto) 3.9 x10^3/uL (1.8-7.7) Lymphocytes # (Auto) 1.0 x10^3/uL (1.0-4.8) Monocytes # (Auto) 0.7 x10^3/uL (0.0-1.1) Eosinophils # (Auto) 0.8 x10^3/uL (0.0-0.7) Basophils # (Auto) 0.1 x10^3/uL (0.0-0.2) Sodium Level 146 mmol/L (136-145) Potassium Level 4.2 mmol/L (3.5-5.1) Chloride Level 111 mmol/L (98-107) Carbon Dioxide Level 28 mmol/L (21-32) Anion Gap 7 (6-14) Blood Urea Nitrogen 81 mg/dL (8-26) Creatinine 2.5 mg/dL (0.7-1.3) Estimated GFR (Cockcroft-Gault) 25.4 Glucose Level 68 mg/dL (70-99) Calcium Level 7.9 mg/dL (8.5-10.1) Glucose (Fingerstick) 79 mg/dL (70-99) Results All relevant outside records, renal labs, imaging studies, telemetry/EKG's were reviewed. Justicifation of Admission Dx: Justifications for Admission: Justification of Admission Dx: Yes BEATRIZ IBARRA MD December 28, 2020 10:23
[2020-12-28 11:00] VITALS: BP 122/60
--- NOTE | 2020-12-28 14:09 | PDOC ---
PROGRESS NOTES Date of Service DATE: 12/28/20 TIME: 14:05 Subjective Subjective Patient resting in bed without complaints Objective Objective Vital Signs Date Time Temp Pulse Resp B/P (MAP) Pulse Ox O2 Delivery O2 Flow Rate FiO2 12/28/20 11:00 97.7 67 18 122/60 (80) 94 Room Air 97.7 12/27/20 13:09 2.0 Intake and Output 12/28/20 07:00 Intake Total 500 ml Output Total 650 ml Balance -150 ml Intake Oral 500 ml Output Urine Total 650 ml # Bowel Movements 1 Physical Exam Physical Exam Awake and alert HRR Non-labored respirations Right femoral access site dressing intact, no hematoma or swelling Dressing dry and intact to bilateral heels Assessment Assessment Problems Medical Problems: (1) Anemia Status: Acute (2) CHF exacerbation Status: Acute Plan Plan of Care 75 year old male with PVD and left heel ulcer with large dark eschar. MRI does not suggest osteomyelitis in the calcaneus Patient has two-vessel runoff via the dorsal pedal and peroneal arteries with reconstitution to the area of the heel ulcer. Plan elective debridement of the left heel ulcer of 12/30/2020 Patient seen and examined with Dr. Styles Comment Review of Relevant I have reviewed the following items mara (where applicable) has been applied. Labs Laboratory Tests Test 12/26/20 16:54 12/26/20 20:48 12/27/20 06:05 12/27/20 08:19 Glucose (Fingerstick) 81 mg/dL (70-99) 113 mg/dL (70-99) 73 mg/dL (70-99) White Blood Count 6.2 x10^3/uL (4.0-11.0) Red Blood Count 2.87 x10^6/uL (4.30-5.70) Hemoglobin 8.4 g/dL (13.0-17.5) Hematocrit 26.3 % (39.0-53.0) Mean Corpuscular Volume 92 fL (79-100) Mean Corpuscular Hemoglobin 29 pg (25-35) Mean Corpuscular Hemoglobin Concent 32 g/dL (31-37) Red Cell Distribution Width 18.8 % (11.5-14.5) Platelet Count 172 x10^3/uL (140-400) Neutrophils (%) (Auto) 56 % (31-73) Lymphocytes (%) (Auto) 20 % (24-48) Monocytes (%) (Auto) 10 % (0-9) Eosinophils (%) (Auto) 13 % (0-3) Basophils (%) (Auto) 1 % (0-3) Neutrophils # (Auto) 3.5 x10^3/uL (1.8-7.7) Lymphocytes # (Auto) 1.3 x10^3/uL (1.0-4.8) Monocytes # (Auto) 0.6 x10^3/uL (0.0-1.1) Eosinophils # (Auto) 0.8 x10^3/uL (0.0-0.7) Basophils # (Auto) 0.1 x10^3/uL (0.0-0.2) Sodium Level 145 mmol/L (136-145) Potassium Level 3.7 mmol/L (3.5-5.1) Chloride Level 110 mmol/L (98-107) Carbon Dioxide Level 28 mmol/L (21-32) Anion Gap 7 (6-14) Blood Urea Nitrogen 84 mg/dL (8-26) Creatinine 2.3 mg/dL (0.7-1.3) Estimated GFR (Cockcroft-Gault) 28.0 Glucose Level 73 mg/dL (70-99) Calcium Level 8.3 mg/dL (8.5-10.1) Phosphorus Level 3.4 mg/dL (2.6-4.7) Magnesium Level 2.0 mg/dL (1.8-2.4) Test 12/27/20 12:52 12/27/20 13:31 12/27/20 17:14 12/27/20 20:44 Activated Clotting Time 213 sec (92-181) Glucose (Fingerstick) 62 mg/dL (70-99) 115 mg/dL (70-99) 100 mg/dL (70-99) Test 12/28/20 07:10 12/28/20 07:57 12/28/20 12:05 White Blood Count 6.5 x10^3/uL (4.0-11.0) Red Blood Count 2.77 x10^6/uL (4.30-5.70) Hemoglobin 8.1 g/dL (13.0-17.5) Hematocrit 25.6 % (39.0-53.0) Mean Corpuscular Volume 92 fL (79-100) Mean Corpuscular Hemoglobin 29 pg (25-35) Mean Corpuscular Hemoglobin Concent 32 g/dL (31-37) Red Cell Distribution Width 18.3 % (11.5-14.5) Platelet Count 164 x10^3/uL (140-400) Neutrophils (%) (Auto) 60 % (31-73) Lymphocytes (%) (Auto) 15 % (24-48) Monocytes (%) (Auto) 11 % (0-9) Eosinophils (%) (Auto) 13 % (0-3) Basophils (%) (Auto) 1 % (0-3) Neutrophils # (Auto) 3.9 x10^3/uL (1.8-7.7) Lymphocytes # (Auto) 1.0 x10^3/uL (1.0-4.8) Monocytes # (Auto) 0.7 x10^3/uL (0.0-1.1) Eosinophils # (Auto) 0.8 x10^3/uL (0.0-0.7) Basophils # (Auto) 0.1 x10^3/uL (0.0-0.2) Sodium Level 146 mmol/L (136-145) Potassium Level 4.2 mmol/L (3.5-5.1) Chloride Level 111 mmol/L (98-107) Carbon Dioxide Level 28 mmol/L (21-32) Anion Gap 7 (6-14) Blood Urea Nitrogen 81 mg/dL (8-26) Creatinine 2.5 mg/dL (0.7-1.3) Estimated GFR (Cockcroft-Gault) 25.4 Glucose Level 68 mg/dL (70-99) Calcium Level 7.9 mg/dL (8.5-10.1) Glucose (Fingerstick) 79 mg/dL (70-99) 105 mg/dL (70-99) Laboratory Tests Test 12/27/20 17:14 12/27/20 20:44 12/28/20 07:10 12/28/20 07:57 Glucose (Fingerstick) 115 mg/dL (70-99) 100 mg/dL (70-99) 79 mg/dL (70-99) White Blood Count 6.5 x10^3/uL (4.0-11.0) Red Blood Count 2.77 x10^6/uL (4.30-5.70) Hemoglobin 8.1 g/dL (13.0-17.5) Hematocrit 25.6 % (39.0-53.0) Mean Corpuscular Volume 92 fL (79-100) Mean Corpuscular Hemoglobin 29 pg (25-35) Mean Corpuscular Hemoglobin Concent 32 g/dL (31-37) Red Cell Distribution Width 18.3 % (11.5-14.5) Platelet Count 164 x10^3/uL (140-400) Neutrophils (%) (Auto) 60 % (31-73) Lymphocytes (%) (Auto) 15 % (24-48) Monocytes (%) (Auto) 11 % (0-9) Eosinophils (%) (Auto) 13 % (0-3) Basophils (%) (Auto) 1 % (0-3) Neutrophils # (Auto) 3.9 x10^3/uL (1.8-7.7) Lymphocytes # (Auto) 1.0 x10^3/uL (1.0-4.8) Monocytes # (Auto) 0.7 x10^3/uL (0.0-1.1) Eosinophils # (Auto) 0.8 x10^3/uL (0.0-0.7) Basophils # (Auto) 0.1 x10^3/uL (0.0-0.2) Sodium Level 146 mmol/L (136-145) Potassium Level 4.2 mmol/L (3.5-5.1) Chloride Level 111 mmol/L (98-107) Carbon Dioxide Level 28 mmol/L (21-32) Anion Gap 7 (6-14) Blood Urea Nitrogen 81 mg/dL (8-26) Creatinine 2.5 mg/dL (0.7-1.3) Estimated GFR (Cockcroft-Gault) 25.4 Glucose Level 68 mg/dL (70-99) Calcium Level 7.9 mg/dL (8.5-10.1) Test 12/28/20 12:05 Glucose (Fingerstick) 105 mg/dL (70-99) Medications Current Medications Apixaban (Eliquis) 2.5 mg BID PO Last administered on 12/21/20at 09:00; Start 12/20/20 at 22:00; Stop 12/21/20 at 13:36; Status DC Atorvastatin Calcium (Lipitor) 40 mg HS PO Last administered on 12/27/20at 22:13; Start 12/20/20 at 22:00 Buspirone HCl (Buspar) 10 mg PRN DAILY PRN PO ANXIETY / AGITATION; Start 12/20/20 at 21:45 Famotidine (Pepcid) 20 mg DAILY PO Last administered on 12/28/20 09:35; Start 12/21/20 at 09:00 Hydralazine HCl (Apresoline) 25 mg TID PO Last administered on 12/28/20 09:34; Start 12/21/20 at 09:00 Insulin Glargine (Lantus Syringe) 15 unit QHS SQ Last administered on 12/26/20at 20:53; Start 12/20/20 at 22:00 Metoprolol Succinate (Toprol Xl) 25 mg DAILY PO Last administered on 12/28/20at 09:35; Start 12/21/20 at 09:00 Nystatin (Nystop) 1 daniela BID TP Last administered on 12/28/20at 09:36; Start 12/20/20 at 22:00 Sennosides (Senna) 8.6 mg PRN BID PRN PO CONSTIPATION 1ST CHOICE; Start 12/20/20 at 21:45; Stop 12/20/20 at 21:52; Status DC Sertraline HCl (Zoloft) 50 mg DAILY PO Last administered on 12/28/20 09:35; Start 12/21/20 at 09:00 Ascorbic Acid (Vitamin C) 500 mg BID PO Last administered on 12/28/20at 09:33; Start 12/20/20 at 22:00 Furosemide (Lasix) 40 mg 1X ONCE IVP Last administered on 12/20/20 23:03; Start 12/20/20 at 21:45; Stop 12/20/20 at 21:46; Status DC Sennosides (Senna) 17.2 mg PRN BID PRN PO CONSTIPATION, 2ND CHOICE Last ad ministered on 12/21/20at 21:11; Start 12/20/20 at 21:45 Docusate Sodium (Colace) 100 mg PRN DAILY PRN PO HARD STOOLS; Start 12/20/20 at 21:45 Ondansetron HCl (Zofran) 4 mg PRN Q6HRS PRN IVP NAUSEA/VOMITING Last administered on 12/28/20at 09:57; Start 12/20/20 at 21:45 Insulin Human Lispro (HumaLOG) 0-7 UNITS TIDWMEALS SQ ; Start 12/21/20 at 08:00 Dextrose (Dextrose 50%-Water Syringe) 12.5 gm PRN Q15MIN PRN IV SEE COMMENTS; Start 12/20/20 at 21:45 Acetaminophen (Tylenol) 650 mg PRN Q4HRS PRN PO TEMP OVER 100.4F OR MILD PAIN Last administered on 12/20/20at 23:02; Start 12/20/20 at 21:45 Furosemide 100 mg/ Sodium Chloride 100 ml @ 0 mls/hr CONT PRN IV SEE I/O RECORD Last administered on 12/26/20at 10:06; Start 12/21/20 at 11:30; Stop 12/26/20 at 10:28; Status DC Potassium Chloride (Klor-Con) 20 meq 1X ONCE PO Last administered on 12/21/20at 14:02; Start 12/21/20 at 12:15; Stop 12/21/20 at 12:16; Status DC Potassium Chloride (Klor-Con) 40 meq 1X ONCE PO Last administered on 12/22/20at 08:39; Start 12/22/20 at 08:30; Stop 12/22/20 at 08:31; Status DC Ferrous Sulfate (Iron Oral Solution) 300 mg BIDWMEALS PO Last administered on 12/24/20at 08:54; Start 12/22/20 at 17:00; Stop 12/24/20 at 11:08; Status DC Polyethylene Glycol (miraLAX PACKET) 17 gm PRN DAILY PRN PO CONSTIPATION, 1ST CHOICE; Start 12/22/20 at 12:00 Potassium Chloride (Klor-Con) 40 meq 1X ONCE PO Last administered on 12/23/20at 06:54; Start 12/23/20 at 07:00; Stop 12/23/20 at 07:01; Status DC Potassium Chloride (Klor-Con) 40 meq 1X ONCE PO Last administered on 12/23/20at 08:54; Start 12/23/20 at 09:00; Stop 12/23/20 at 09:01; Status DC Potassium Chloride (Klor-Con) 40 meq DAILY PO Last administered on 12/28/20 09:35; Start 12/24/20 at 09:00 Ferrous Sulfate (Feosol) 325 mg BIDWMEALS PO Last administered on 12/28/20 09:35; Start 12/24/20 at 17:00 Linezolid (Zyvox) 600 mg BID PO Last administered on 12/28/20 09:34; Start 12/25/20 at 09:00 Amoxicillin/ Clavulanate Potassium (Augmentin 875/ 125mg) 1 tab BID PO Last administered on 12/28/20 09:35; Start 12/25/20 at 09:00 Furosemide (Lasix) 40 mg BID94 PO Last administered on 12/28/20 09:35; Start 12/26/20 at 10:30 Lactobacillus Rhamnosus (Culturelle) 1 cap BID PO Last administered on 12/28/20 09:33; Start 12/26/20 at 21:00 Iodixanol (Visipaque 320) 100 ml STK-MED ONCE .ROUTE ; Start 12/27/20 at 10:35; Stop 12/27/20 at 10:35; Status DC Lidocaine HCl (Lidocaine 1% 20ml Vial) 20 ml STK-MED ONCE .ROUTE ; Start 12/27/20 at 10:35; Stop 12/27/20 at 10:35; Status DC Heparin Sodium/ Sodium Chloride 1,000 ml @ As Directed STK-MED ONCE .ROUTE ; Start 12/27/20 at 10:35; Stop 12/27/20 at 10:35; Status DC Midazolam HCl (Versed) 5 mg STK-MED ONCE .ROUTE ; Start 12/27/20 at 11:40; Stop 12/27/20 at 11:40; Status DC Fentanyl Citrate (Fentanyl 2ml Vial) 100 mcg STK-MED ONCE .ROUTE ; Start 12/27/20 at 11:40; Stop 12/27/20 at 11:40; Status DC Heparin Sodium (Porcine) (Heparin Sodium) 10,000 unit STK-MED ONCE .ROUTE ; Start 12/27/20 at 11:40; Stop 12/27/20 at 11:40; Status DC Heparin Sodium/ Sodium Chloride (HEPARIN for ARTERIAL LINE FLUSH) 1,000 unit 1X ONCE IART Last administered on 12/27/20at 13:04; Start 12/27/20 at 12:15; Stop 12/27/20 at 12:19; Status DC Heparin Sodium/ Sodium Chloride (HEPARIN for ARTERIAL LINE FLUSH) 1,000 unit 1X ONCE IART Last administered on 12/27/20at 13:04; Start 12/27/20 at 12:15; Stop 12/27/20 at 12:19; Status DC Midazolam HCl (Versed) 5 mg 1X ONCE IV Last administered on 12/27/20at 13:05; Start 12/27/20 at 12:15; Stop 12/27/20 at 12:19; Status DC Fentanyl Citrate (Fentanyl 2ml Vial) 100 mcg 1X ONCE IV Last administered on 12/27/20at 13:06; Start 12/27/20 at 12:15; Stop 12/27/20 at 12:19; Status DC Iodixanol (Visipaque 320) 100 ml 1X ONCE IART Last administered on 12/27/20at 13:04; Start 12/27/20 at 12:15; Stop 12/27/20 at 12:19; Status DC Heparin Sodium (Porcine) (Heparin Sodium) 2,500 unit 1X ONCE IV Last administered on 12/27/20at 13:08; Start 12/27/20 at 12:15; Stop 12/27/20 at 12:19; Status DC Lidocaine HCl (Lidocaine 1% 20ml Vial) 20 ml 1X ONCE INJ Last administered on 12/27/20at 13:04; Start 12/27/20 at 12:15; Stop 12/27/20 at 12:19; Status DC Active Scripts Active Lantus (Insulin Glargine,Hum.rec.anlog) 100 Unit/1 Ml Vial 15 Unit SQ QHS 30 Days Famotidine 20 Mg Tablet 20 Mg PO DAILY 30 Days Acetaminophen Supp (Acetaminophen) 650 Mg Supp.rect 650 Mg ND PRN Q4HRS PRN 30 Days Hydralazine Hcl 25 Mg Tablet 25 Mg PO TID 30 Days Reported Tylenol (Acetaminophen) 325 Mg Tablet 1-2 Tab PO QID Vitamin C (Ascorbic Acid) 500 Mg Capsule 500 Mg PO BID Senokot (Sennosides) 8.6 Mg Tablet 1 Tab PO BID PRN 20 Days Potassium Chloride 20 Meq Tablet.er 20 Meq PO DAILY Nystatin 15 Gm Powder 1 Daniela TP BID 7 Days apply to affected area(s) Lasix (Furosemide) 40 Mg Tablet 40 Mg PO BIDBFRMEAL Zoloft (Sertraline Hcl) 50 Mg Tablet 50 Mg PO DAILY Metoprolol Succinate ( Xl ) (Metoprolol Succinate) 25 Mg Tab.er.24h 25 Mg PO DAILY Eliquis (Apixaban) 5 Mg Tablet 2.5 Mg PO BID Slow Release Iron (Ferrous Sulfate) 160 Mg Tablet.er 160 Mg PO DAILY Buspirone Hcl 10 Mg Tablet 1 Tab PO PRN DAILY PRN Atorvastatin Calcium 40 Mg Tablet 40 Mg PO HS Vitals/I & O Vital Sign - Last 24 Hours 12/27/20 12/27/20 12/27/20 12/27/20 15:00 17:41 19:54 20:00 Temp 97.5 97.6 97.5 97.6 Pulse 59 64 Resp 18 18 B/P (MAP) 139/63 (88) 135/49 113/53 (73) Pulse Ox 94 95 O2 Delivery Room Air Room Air Room Air 12/27/20 12/27/20 12/28/20 12/28/20 22:13 22:46 03:27 07:00 Temp 97.5 97.8 97.9 97.5 97.8 97.9 Pulse 64 80 70 83 Resp 16 16 18 B/P (MAP) 113/53 131/60 (83) 141/66 (91) 131/62 (85) Pulse Ox 91 94 95 O2 Delivery Room Air Room Air Room Air 12/28/20 12/28/20 12/28/20 12/28/20 08:00 09:34 09:35 11:00 Temp 97.7 97.7 Pulse 83 83 67 Resp 18 B/P (MAP) 131/62 131/62 122/60 (80) Pulse Ox 94 O2 Delivery Room Air Room Air Intake and Output 12/27/20 12/27/20 12/28/20 15:00 23:00 07:00 Intake Total 0 ml 500 ml 0 ml Output Total 650 ml Balance 0 ml 500 ml -650 ml Justifications for Admission Other Justification CHF exacerbation CHAS BERNAL APRN December 28, 2020 14:09
--- NOTE | 2020-12-28 14:10 | PDOC ---
YUDY SCOTT ANCILLARY SPECIALIST 12/28/20 1410: CARDIO Progress Notes Date and Time Date of Service 12/28/20 Time of Evaluation 1140 Subjective Subjective: No Chest Pain, No shortness of breath, No Palpitations Vitals Vitals Vital Signs Date Time Temp Pulse Resp B/P (MAP) Pulse Ox O2 Delivery O2 Flow Rate FiO2 12/28/20 11:00 97.7 67 18 122/60 (80) 94 Room Air 97.7 12/27/20 13:09 2.0 Weight Weight [ ] Input and Output Intake and Output Intake and Output 12/28/20 07:00 Intake Total 500 ml Output Total 650 ml Balance -150 ml Intake Oral 500 ml Output Urine Total 650 ml # Bowel Movements 1 Laboratory Labs Laboratory Tests Test 12/27/20 17:14 12/27/20 20:44 12/28/20 07:10 12/28/20 07:57 Glucose (Fingerstick) 115 mg/dL (70-99) 100 mg/dL (70-99) 79 mg/dL (70-99) White Blood Count 6.5 x10^3/uL (4.0-11.0) Red Blood Count 2.77 x10^6/uL (4.30-5.70) Hemoglobin 8.1 g/dL (13.0-17.5) Hematocrit 25.6 % (39.0-53.0) Mean Corpuscular Volume 92 fL (79-100) Mean Corpuscular Hemoglobin 29 pg (25-35) Mean Corpuscular Hemoglobin Concent 32 g/dL (31-37) Red Cell Distribution Width 18.3 % (11.5-14.5) Platelet Count 164 x10^3/uL (140-400) Neutrophils (%) (Auto) 60 % (31-73) Lymphocytes (%) (Auto) 15 % (24-48) Monocytes (%) (Auto) 11 % (0-9) Eosinophils (%) (Auto) 13 % (0-3) Basophils (%) (Auto) 1 % (0-3) Neutrophils # (Auto) 3.9 x10^3/uL (1.8-7.7) Lymphocytes # (Auto) 1.0 x10^3/uL (1.0-4.8) Monocytes # (Auto) 0.7 x10^3/uL (0.0-1.1) Eosinophils # (Auto) 0.8 x10^3/uL (0.0-0.7) Basophils # (Auto) 0.1 x10^3/uL (0.0-0.2) Sodium Level 146 mmol/L (136-145) Potassium Level 4.2 mmol/L (3.5-5.1) Chloride Level 111 mmol/L (98-107) Carbon Dioxide Level 28 mmol/L (21-32) Anion Gap 7 (6-14) Blood Urea Nitrogen 81 mg/dL (8-26) Creatinine 2.5 mg/dL (0.7-1.3) Estimated GFR (Cockcroft-Gault) 25.4 Glucose Level 68 mg/dL (70-99) Calcium Level 7.9 mg/dL (8.5-10.1) Test 12/28/20 12:05 Glucose (Fingerstick) 105 mg/dL (70-99) Review of Systems Constitutional: yes: alert, oriented Ears/Nose/Throat: Yes: no symptom reported Eyes: Yes: no symptom reported Pulmonary: Yes dyspnea Cardiovascular: Yes no symptom reported Gastrointestional: Yes: no symptom reported Genitourinary: Yes: no symptom reported Musculoskeletal: Yes: no symptom reported Skin: Yes no symptom reported Psychiatric/Neurological: Yes: no symptom reported Physical Exam HEENT: Neck Supple W Full Motion Chest: Symmetric LUNGS: Other (diminished ) Heart: irregularly irregular (AFIB) Abdomen: Soft N/T, Other (anasarca) Extremities: Other (2+ bilaterlal LE edema ) Neurology: alert, oriented, follow commands Assessment Assessment 1. Worsening LE edema, anasarca; improved with diuresis 2. Acute on chronic diastolic CHF; Echo 07/25 with preserved LV systolic function. on Lasix gtt. UOP better 3. Anemia with h/o GIB with cauterization of bleeding antral ulcer. s/p transfusion. no obvious bleeding. 4. CAD; s/p PCI/RHEA to LAD in 2019. clinically stable, CP free. 5. PAD s/p past orbital atherectomy/[employer] to right posterior tibial artery. LE wounds present. Aortogram with Isolated left posterior tibial artery occlusion with adequate two-vessel runoff to the distal foot and calcaneal area. Debridement planned by vascular on 6. Permanent AFIB; rate controlled on BB 7. SSS; s/p PPM ([employer]). intermittent v-pacing. recent device check with normal function 8. Hypertension; controlled 9. Hyperlipidemia; statin 10. Diabetes, II; as per IM 11. REBECCA on CKD; Cr ^ 2.5 12. Valvular disease; mild to moderate aortic stenosis 13. Protein calorie malnutrition 14. Hypokalemia Recommendations Accurate weights, I and O. Weight at 139.4kg today per recheck Replace electrolytes as warranted Monitor UOP Will given gentle bolus if Cr remains elevated in am Secondary prevention Metoprolol for rate control OAC on hold with anemia, recent GIB Consider resumption of ASA only Local wound care Follow vascular recs Supportive care Justicifation of Admission Dx: Justifications for Admission: Justification of Admission Dx: Yes JANNETTE GRANT MD 12/28/20 1648: CARDIO Progress Notes Plan Plan The patient was seen and interviewed as well as examined at the bedside. The chart was reviewed. The case was discussed. Agree with the plan of care. YUDY SCOTT APRN December 28, 2020 14:10 JANNETTE GRANT MD December 28, 2020 16:48
[2020-12-28 15:00] VITALS: BP 135/60
--- NOTE | 2020-12-28 17:08 | NUR ---
Wound/Ostomy Care Wound Type/Assessment: Wound care consult for multiple DFUs to bilateral feet and BLE VLU and left buttock PU stage 2 (see wound intervention for details). Bilateral lower legs VLUS, left buttock PU and left 2nd/3rd toe, right 2nd toe have all resolved now. Pt is going to surgery tomorrow with vascular for debridement of the left heel. Left buttock left cover with foam for protection Treatment Recommendations/Plan: Cleanse all wounds with saline or wound wash and pat dry. Left buttock and right lower leg: cover with foam for protection. Left heel, right plantar heel and right posterior heel: paint with betadine and cover with foam, change every 2-3 days. Right plantar heel and right posterior heel: paint with betadine daily. Right great toe: paint with betadine daily, may cover with bandaid if neededd. Education provided: Pt educated on PU healing and prevention Offloading surface/device: P500, heel medix boots (reorder, unable to find boot ordered last week), purple wedge, pillows Discharge Recommendations for dressings: same as above
[2020-12-28 19:00] VITALS: BP 103/56
[2020-12-28] MEDS: ATORVASTATIN CALCIUM 40 MG TABLET. PO SCH (20:53)
[2020-12-28] MEDS: INSULIN GLARGINE SYRINGE. SQ SCH (21:00)
[2020-12-28 22:21] VITALS: BP 149/66
[2020-12-29 02:08] VITALS: BP 129/52
[2020-12-29 07:00] VITALS: BP 127/60
[2020-12-29] MEDS: INSULIN LISPRO 300 UNITS/3 ML VIAL. SQ SCH ×3 (08:00→17:00)
[2020-12-29 08:10] LABS: BASO # 0.1 x10^3/uL (0.0-0.2); BASO % 1 % (0-3); EOS # 0.7 x10^3/uL (0.0-0.7); EOS % 11 % (0-3); HEMATOCRIT 26.1 % (39.0-53.0); HEMOGLOBIN 8.4 g/dL (13.0-17.5); LYMPH # 1.1 x10^3/uL (1.0-4.8); LYMPH % 18 % (24-48); MEAN CORPUSCULAR HEMOGLOBIN 30 pg (25-35); MEAN CORPUSCULAR HGB CONC 32 g/dL (31-37); MEAN CORPUSCULAR VOLUME 92 fL (79-100); MONO # 0.6 x10^3/uL (0.0-1.1); MONO % 10 % (0-9); NEUT # 3.8 x10^3/uL (1.8-7.7); NEUT % 60 % (31-73); PLATELET COUNT 164 x10^3/uL (140-400); RED BLOOD COUNT 2.83 x10^6/uL (4.30-5.70); RED CELL DISTRIBUTION WIDTH 18.5 % (11.5-14.5); WHITE BLOOD COUNT 6.3 x10^3/uL (4.0-11.0)
[2020-12-29 08:31] LABS: CALCIUM 8.2 mg/dL (8.5-10.1); CREATININE 2.8 mg/dL (0.7-1.3); GFR 22.3; POTASSIUM 4.7 mmol/L (3.5-5.1)
[2020-12-29] MEDS: LACTOBACILLUS RHAMNOSUS GG 1 CAPSULE. PO SCH ×2 (08:45→20:36)
[2020-12-29] MEDS: POTASSIUM CHLORIDE 20 MEQ TABLET.ER. PO SCH (08:46)
[2020-12-29] MEDS: ASCORBIC ACID 500 MG TABLET PO SCH ×2 (08:47→20:36)
[2020-12-29] MEDS: FERROUS SULFATE 325 MG TABLET. PO SCH ×2 (08:47→16:22)
[2020-12-29] MEDS: LINEZOLID 600 MG TABLET PO SCH ×2 (08:47→20:37)
[2020-12-29] MEDS: hydrALAZINE 25 MG TABLET PO SCH ×3 (08:47→20:36)
[2020-12-29] MEDS: FUROSEMIDE 40 MG TABLET. PO SCH ×2 (08:48→16:21)
[2020-12-29] MEDS: AMOXICILLIN/K CLAV 875/125MG TABLET. PO SCH ×2 (08:48→20:36)
[2020-12-29] MEDS: NYSTATIN TOPICAL POWDER 15GM BOTTLE. TP SCH ×2 (08:48→20:36)
[2020-12-29] MEDS: FAMOTIDINE 20 MG TABLET. PO SCH (08:48)
[2020-12-29] MEDS: SERTRALINE 50 MG TABLET. PO SCH (08:48)
[2020-12-29] MEDS: METOPROLOL SUCC 24HR ER 25 MG TAB.ER.24H. PO SCH (08:48)
--- NOTE | 2020-12-29 09:06 | PDOC ---
Infectious Disease Note Subjective: Subjective Patient is feeling better Denies fever, nausea, vomiting, abdominal pain or diarrhea Vital Signs: Vital Signs Vital Signs Date Time Temp Pulse Resp B/P (MAP) Pulse Ox O2 Delivery O2 Flow Rate FiO2 12/29/20 08:48 72 127/60 12/29/20 08:00 Room Air 12/29/20 07:00 97.7 16 94 97.7 Physical Exam: PHYSICAL EXAM GENERAL: Alert, oriented gentleman, not in any distress. HEENT: Both pupils are round and reacting. No conjunctival lesion. No lesion in the mouth. NECK: Supple. No JVP. No lymphadenopathy. LUNGS: Clear. HEART: S1, S2 regular. Pacer site clean ABDOMEN: Soft, nontender. No organomegaly. Obeses EXTREMITIES: Edema present bilaterally less today. There is ulcer on the left big toe as well as black eschar on the left calcaneum. R heel with mild wound/ Mild cellullitis on LLE - improved. Dorsalis pedis is not palpable. SKIN: Rest of skin exam is unremarkable. NEUROLOGIC: The patient is alert, awake, and appropriate. No focal neurologic deficit. Medications: Inpatient Meds: Medications reviewed. Labs: Lab Laboratory Tests Test 12/28/20 12:05 12/28/20 17:13 12/28/20 20:43 12/28/20 20:56 Glucose (Fingerstick) 105 mg/dL (70-99) 103 mg/dL (70-99) 138 mg/dL (70-99) 133 mg/dL (70-99) Test 12/29/20 07:10 12/29/20 08:23 White Blood Count 6.3 x10^3/uL (4.0-11.0) Red Blood Count 2.83 x10^6/uL (4.30-5.70) Hemoglobin 8.4 g/dL (13.0-17.5) Hematocrit 26.1 % (39.0-53.0) Mean Corpuscular Volume 92 fL (79-100) Mean Corpuscular Hemoglobin 30 pg (25-35) Mean Corpuscular Hemoglobin Concent 32 g/dL (31-37) Red Cell Distribution Width 18.5 % (11.5-14.5) Platelet Count 164 x10^3/uL (140-400) Neutrophils (%) (Auto) 60 % (31-73) Lymphocytes (%) (Auto) 18 % (24-48) Monocytes (%) (Auto) 10 % (0-9) Eosinophils (%) (Auto) 11 % (0-3) Basophils (%) (Auto) 1 % (0-3) Neutrophils # (Auto) 3.8 x10^3/uL (1.8-7.7) Lymphocytes # (Auto) 1.1 x10^3/uL (1.0-4.8) Monocytes # (Auto) 0.6 x10^3/uL (0.0-1.1) Eosinophils # (Auto) 0.7 x10^3/uL (0.0-0.7) Basophils # (Auto) 0.1 x10^3/uL (0.0-0.2) Sodium Level 144 mmol/L (136-145) Potassium Level 4.7 mmol/L (3.5-5.1) Chloride Level 109 mmol/L (98-107) Carbon Dioxide Level 25 mmol/L (21-32) Anion Gap 10 (6-14) Blood Urea Nitrogen 80 mg/dL (8-26) Creatinine 2.8 mg/dL (0.7-1.3) Estimated GFR (Cockcroft-Gault) 22.3 Glucose Level 99 mg/dL (70-99) Calcium Level 8.2 mg/dL (8.5-10.1) Glucose (Fingerstick) 102 mg/dL (70-99) Objective: Assessment: 1. Left calcaneal black eschar. MRI neg for osteo R heel wound - Cellulitis is better 2. Peripheral arterial disease. 3. Left big toe ulcer. 4. Obesity. 5. Diabetes. 6. Hypertension. 7. Congestive heart failure. 8. Renal insufficiency. 9. Sulfa allergy Plan: Plan of Care Continue Augmentin and Zyvox Awaiting debridement tomorrow cont off load Wound care per wound team AMADOR ROSA MD December 29, 2020 09:06
--- NOTE | 2020-12-29 09:31 | PDOC ---
Provider Note Date of Service: DATE: 12/29/20 TIME: 09:28 Provider Note Provider Note Vascular S: Patient resting comfortably in bed. Toe: Awake and alert Vital signs stable, afebrile Right heel wound almost completely healed. Some dry scaly skin. Left heel with large area of dark eschar with mild surrounding erythema. First toe tip small callus no drainage, swelling, or erythema. A/P:75 year old male with PVD and left heel ulcer with large dark eschar. MRI does not suggest osteomyelitis in the calcaneus Patient has two-vessel runoff via the dorsal pedal and peroneal arteries with reconstitution to the area of the heel ulcer. Plan elective debridement of the left heel ulcer of 12/30/2020 Justicifation of Admission Dx: Justifications for Admission: Justification of Admission Dx: Yes CHAS BERNAL APRN December 29, 2020 09:31
--- NOTE | 2020-12-29 10:08 | PDOC ---
Date of Service: DATE: 12/29/20 TIME: 10:04 Subjective: Subjective: No GI complaints. Objective: Objective: Reviewed chart - debridement tomorrow. Vital Signs: Vital Signs Date Time Temp Pulse Resp B/P (MAP) Pulse Ox O2 Delivery O2 Flow Rate FiO2 12/29/20 08:48 72 127/60 12/29/20 08:00 Room Air 12/29/20 07:00 97.7 16 94 97.7 Labs: Laboratory Tests Test 12/28/20 12:05 12/28/20 17:13 12/28/20 20:43 12/28/20 20:56 Glucose (Fingerstick) 105 mg/dL 103 mg/dL 138 mg/dL 133 mg/dL Test 12/29/20 07:10 12/29/20 08:23 White Blood Count 6.3 x10^3/uL Red Blood Count 2.83 x10^6/uL Hemoglobin 8.4 g/dL Hematocrit 26.1 % Mean Corpuscular Volume 92 fL Mean Corpuscular Hemoglobin 30 pg Mean Corpuscular Hemoglobin Concent 32 g/dL Red Cell Distribution Width 18.5 % Platelet Count 164 x10^3/uL Neutrophils (%) (Auto) 60 % Lymphocytes (%) (Auto) 18 % Monocytes (%) (Auto) 10 % Eosinophils (%) (Auto) 11 % Basophils (%) (Auto) 1 % Neutrophils # (Auto) 3.8 x10^3/uL Lymphocytes # (Auto) 1.1 x10^3/uL Monocytes # (Auto) 0.6 x10^3/uL Eosinophils # (Auto) 0.7 x10^3/uL Basophils # (Auto) 0.1 x10^3/uL Sodium Level 144 mmol/L Potassium Level 4.7 mmol/L Chloride Level 109 mmol/L Carbon Dioxide Level 25 mmol/L Anion Gap 10 Blood Urea Nitrogen 80 mg/dL Creatinine 2.8 mg/dL Estimated GFR (Cockcroft-Gault) 22.3 Glucose Level 99 mg/dL Calcium Level 8.2 mg/dL Glucose (Fingerstick) 102 mg/dL PE: GEN: NAD, resting LUNGS: CTAB HEART: RRR ABD: S/ND/NT NEURO/PSYCH: A & O 3 A/P: PVD, left heel ulcer CKD Chronic anemia, h/o -- Continue same (acid-parachute rigger, iron) per GI. Outpt colonoscopy later on. Justicifation of Admission Dx: Justifications for Admission: Justification of Admission Dx: Yes FABBY ROBERTSON December 29, 2020 10:08
--- NOTE | 2020-12-29 10:35 | PDOC ---
DATE OF SERVICE DATE: 12/29/20 TIME: 10:33 SUBJECTIVE ROS Stable , no complaints OBJECTIVE Vital Signs Vital Signs Date Time Temp Pulse Resp B/P (MAP) Pulse Ox O2 Delivery O2 Flow Rate FiO2 12/29/20 08:48 72 127/60 12/29/20 08:00 Room Air 12/29/20 07:00 97.7 16 94 97.7 I & 0 Intake and Output 12/29/20 06:59 Intake Total 1425 ml Output Total 300 ml Balance 1125 ml Intake Oral 1425 ml Output Urine Total 300 ml # Bowel Movements 1 PHYSICAL EXAM Physical Exam General: NAD HEENT: Atraumatic, OM moist Neck supple Lungs: Clear to auscultation Heart: Bradycardic, ESM aortic) Abdomen: Soft, NT Extremities: Bilat LE edema 2-3 + a Neuro: grossly normal Psych/Mental Status: Mood NL lowery + , No cva or SP tenderness Skin No rash DIAGNOSIS/ASSESSMENT Assessment & Plan REBECCA on CKD - Cardiorenal , improved to baseline , Cr worsening again probabaly 2/2 rapid diuresis, recommend gentle hydration , discussed with cardiology yesterday . Supportive care Strict I/O CKD stage 3B/ 4 - Follows with Dr. Roca, baseline Cr per [facility] records prior to previous admission 1.8-2.0 but 2.3 to 2.5 since REBECCA recently in November 2020 HypoKalemia - stable, replace as indicated Hx of Acute blood loss anemia secondary to GIB. s/p cauterization of bleeding antral ulcer by GI team and PRBC in November . Hgb this admission low as well - defer to GI Renal calculus - RK- Possible intrarenal stones. LK Possible intrarenal stones to include a 13 mm focus of increased echogenicity at the upper pole.No e/o obstruction reported . Pt denies any past history Worsening LE edema- Bilat LE and anasarca- Wt up compared to his recent admission . off Lasix gtt , currently on Lasix PO BID ,Cardiology managing Left heel wound with dry gangrene and 1st toe ulcer- s/p CO2 angiograph on 12/28 Acute on chronic diastolic CHF; Echo 07/25 with preserved LV systolic function Anemia with h/o GIB with cauterization of bleeding antral ulcer CAD; s/p PCI/RHEA to LAD in 2018. clinically stable, CP free. 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 Permanent AFIB; rate controlled on BB SSS; s/p PPM (Slingrtronic) Hypertension; controlled Valvular disease; mild to moderate aortic stenosis COMMENT/RELEVANT DATA Meds Current Medications Medications (Trade) Dose Ordered Sig/Redd Start Time Stop Time Status Last Admin Dose Admin Acetaminophen (Tylenol) 650 mg PRN Q4HRS PRN 12/20/20 21:45 12/20/20 23:02 650 MG Amoxicillin/ Clavulanate Potassium (Augmentin 875/ 125mg) 1 tab BID 12/25/20 09:00 12/29/20 08:48 1 TAB Apixaban (Eliquis) 2.5 mg BID 12/20/20 22:00 12/21/20 13:36 DC 12/21/20 09:00 2.5 MG Ascorbic Acid (Vitamin C) 500 mg BID 12/20/20 22:00 12/29/20 08:47 500 MG Atorvastatin Calcium (Lipitor) 40 mg HS 12/20/20 22:00 12/28/20 20:53 40 MG Buspirone HCl (Buspar) 10 mg PRN DAILY PRN 12/20/20 21:45 Dextrose (Dextrose 50%-Water Syringe) 12.5 gm PRN Q15MIN PRN 12/20/20 21:45 Docusate Sodium (Colace) 100 mg PRN DAILY PRN 12/20/20 21:45 Famotidine (Pepcid) 20 mg DAILY 12/21/20 09:00 12/29/20 08:48 20 MG Fentanyl Citrate (Fentanyl 2ml Vial) 100 mcg 1X ONCE 12/27/20 12:15 12/27/20 12:19 DC 12/27/20 13:06 50 MCG Ferrous Sulfate (Feosol) 325 mg BIDWMEALS 12/24/20 17:00 12/29/20 08:47 325 MG Ferrous Sulfate (Iron Oral Solution) 300 mg BIDWMEALS 12/22/20 17:00 12/24/20 11:08 DC 12/24/20 08:54 300 MG Furosemide (Lasix) 40 mg BID94 12/26/20 10:30 12/29/20 08:48 40 MG Furosemide 100 mg/ Sodium Chloride 100 ml @ 0 mls/hr CONT PRN 12/21/20 11:30 12/26/20 10:28 DC 12/26/20 10:06 10 MLS/HR Heparin Sodium (Porcine) (Heparin Sodium) 2,500 unit 1X ONCE 12/27/20 12:15 12/27/20 12:19 DC 12/27/20 13:08 5,500 UNIT Heparin Sodium/ Sodium Chloride (HEPARIN for ARTERIAL LINE FLUSH) 1,000 unit 1X ONCE 12/27/20 12:15 12/27/20 12:19 DC 12/27/20 13:04 1,000 UNIT Hydralazine HCl (Apresoline) 25 mg TID 12/21/20 09:00 12/29/20 08:47 25 MG Insulin Glargine (Lantus Syringe) 15 unit QHS 12/20/20 22:00 12/26/20 20:53 15 UNIT Insulin Human Lispro (HumaLOG) 0-7 UNITS TIDWMEALS 12/21/20 08:00 Iodixanol (Visipaque 320) 100 ml 1X ONCE 12/27/20 12:15 12/27/20 12:19 DC 12/27/20 13:04 30 ML Lactobacillus Rhamnosus (Culturelle) 1 cap BID 12/26/20 21:00 12/29/20 08:45 1 CAP Lidocaine HCl (Lidocaine 1% 20ml Vial) 20 ml 1X ONCE 12/27/20 12:15 12/27/20 12:19 DC 12/27/20 13:04 10 ML Linezolid (Zyvox) 600 mg BID 12/25/20 09:00 12/29/20 08:47 600 MG Metoprolol Succinate (Toprol Xl) 25 mg DAILY 12/21/20 09:00 12/29/20 08:48 25 MG Midazolam HCl (Versed) 5 mg 1X ONCE 12/27/20 12:15 12/27/20 12:19 DC 12/27/20 13:05 1 MG Nystatin (Nystop) 1 luna BID 12/20/20 22:00 12/29/20 08:48 1 LUNA Ondansetron HCl (Zofran) 4 mg PRN Q6HRS PRN 12/20/20 21:45 12/28/20 09:57 4 MG Polyethylene Glycol (miraLAX PACKET) 17 gm PRN DAILY PRN 12/22/20 12:00 Potassium Chloride (Klor-Con) 40 meq DAILY 5/21/21 09:00 12/29/20 08:46 40 MEQ Sennosides (Senna) 17.2 mg PRN BID PRN 12/20/20 21:45 12/21/20 21:11 17.2 MG Sertraline HCl (Zoloft) 50 mg DAILY 12/21/20 09:00 12/29/20 08:48 50 MG Lab Laboratory Tests Test 12/28/20 12:05 12/28/20 17:13 12/28/20 20:43 12/28/20 20:56 Glucose (Fingerstick) 105 mg/dL (70-99) 103 mg/dL (70-99) 138 mg/dL (70-99) 133 mg/dL (70-99) Test 12/29/20 07:10 12/29/20 08:23 White Blood Count 6.3 x10^3/uL (4.0-11.0) Red Blood Count 2.83 x10^6/uL (4.30-5.70) Hemoglobin 8.4 g/dL (13.0-17.5) Hematocrit 26.1 % (39.0-53.0) Mean Corpuscular Volume 92 fL (79-100) Mean Corpuscular Hemoglobin 30 pg (25-35) Mean Corpuscular Hemoglobin Concent 32 g/dL (31-37) Red Cell Distribution Width 18.5 % (11.5-14.5) Platelet Count 164 x10^3/uL (140-400) Neutrophils (%) (Auto) 60 % (31-73) Lymphocytes (%) (Auto) 18 % (24-48) Monocytes (%) (Auto) 10 % (0-9) Eosinophils (%) (Auto) 11 % (0-3) Basophils (%) (Auto) 1 % (0-3) Neutrophils # (Auto) 3.8 x10^3/uL (1.8-7.7) Lymphocytes # (Auto) 1.1 x10^3/uL (1.0-4.8) Monocytes # (Auto) 0.6 x10^3/uL (0.0-1.1) Eosinophils # (Auto) 0.7 x10^3/uL (0.0-0.7) Basophils # (Auto) 0.1 x10^3/uL (0.0-0.2) Sodium Level 144 mmol/L (136-145) Potassium Level 4.7 mmol/L (3.5-5.1) Chloride Level 109 mmol/L (98-107) Carbon Dioxide Level 25 mmol/L (21-32) Anion Gap 10 (6-14) Blood Urea Nitrogen 80 mg/dL (8-26) Creatinine 2.8 mg/dL (0.7-1.3) Estimated GFR (Cockcroft-Gault) 22.3 Glucose Level 99 mg/dL (70-99) Calcium Level 8.2 mg/dL (8.5-10.1) Glucose (Fingerstick) 102 mg/dL (70-99) Results All relevant outside records, renal labs, imaging studies, telemetry/EKG's were reviewed. Justicifation of Admission Dx: Justifications for Admission: Justification of Admission Dx: Yes BEATRIZ IBARRA MD December 29, 2020 10:35
--- NOTE | 2020-12-29 10:39 | PDOC ---
[employer] PROGRESS NOTE Date of Service DOS: DATE: 12/29/20 TIME: 10:35 Chief Complaint Chief Complaint Acute volume overload Acute on chronic CHF exacerbation Hypokalemia History of chronic kidney disease Normocytic anemia, possible chronic GI blood loss with EGD showing antral gastric ulcer Left lower extremity wound ulcer with dry gangrene Morbid obesity, OHS, suspect ROBB Severe protein malnutrition History of diabetes mellitus type 2 History of peripheral vascular disease History of atrial fibrillation History of bradycardia status post pacemaker placement History of peripheral vascular disease Hypertension Dyslipidemia Admit to medicine for further management Pending MRI of lower extremity today Appreciate vascular surgery recommendationwe will obtain MRI to determine level of possible amputation ID consulted IV Lasix drip started Strict I's and O's Nephrology consult Cardiology consult Trend hemoglobin if less than 7 then transfuse 1 unit Eliquis for DVT prophylaxis Pepcid GI prophylaxis ADA diet Full code Discussed with RN and SW Disposition inpatient management as above Surrogate decision maker is Phuong Mathis History of Present Illness History of Present Illness 12/29/2020 Afebrile, breathing on room air. Plan is for elective debridement of the left heel ulcer tomorrow. Continue Augmentin and Zyvox, per ID. 12/28/2020 Afebrile, denies shortness of breath. Abdominal aortogram yesterday showed no significant aortoiliac disease bilaterally, isolated left posterior tibial artery occlusion with adequate two-vessel runoff to the distal foot and calcaneal area. Overall the patient is felt to have adequate runoff to the foot for further intervention with debridement of the left heel ulcer. I believe the plan is for elective debridement of left heel ulcer tomorrow. Discussed with RN. 12/27/2020 Afebrile, currently on room air. Off Lasix drip, currently Lasix 40 mg twice daily. Net positive fluid balance overnight, 510mL. Continue p.o. Augmentin and Zyvox. Aortogram pending today. 12/26/2020 No acute events overnight. Patient seen and examined bedside. -2.5 L output in the urine in the past 24 hours. No complaints from the patient. Pending aortogram with LLE runoff with vascular surgery. Follow-up 12/24/2020 Patient was seen and examined in room today. Awaiting plan from vascular/cardio on possible PCI/angio of LLE. Case discussed with RN and case management. Chart and specialist notes reviewed. 12/23/2020 No acute events overnight. Patient seen and examined bedside. Pedal edema has improved total of -2.3 L of urine output. Low potassium today will replace IV and p.o. Creatinine has also improved. Pending MRI versus CT of left lower e xtremity. Patient's chart, labs, images were reviewed and discussed with RN 12/22/2020 No acute events overnight patient seen and examined bedside. No significant weight loss with Lasix drip. Will defer further fluid offloading with cardiology. Pending MRI and further vascular surgery recommendations for lower extremity foot ulcer. Patient's chart, labs, images were reviewed and discussed with RN 12/21/2020 No acute events overnight. Patient has adequate urine output and feels less fluid overload. Documented -580 cc. Patient's chart, labs, images were reviewed and discussed with RN 75 year old male who was sent here from [facility] for evaluation due to bilateral lower extremity swelling, worsening renal function. He has history of CHF, history of chronic renal failure. Patient was sent here by the DRIVER/REFUSE COLLECTOR there today for evaluation of bilateral lower extremity swelling and increased renal function test. Patient denies any chest pain, denies any cough or fever. Patient does have trouble breathing with exertion. Patient says they told him to come here to be admitted so they can do colonoscopy because he has been anemic as well. Patient denies any rectal bleeding. His weight today is 147 kg Upon chart review patient was seen in November 04 09/12/2020 for GI bleed.. Eliquis was actually restarted on 11/09/2020. And also had a pacemaker placed on 11/09/2020 and tolerated procedure well. Patient also does follow-up with Dr. Chau with nephrology and his baseline creatinine appears to be between 1.8-2.0. Vitals/I&O Vitals/I&O: Vital Signs Date Time Temp Pulse Resp B/P (MAP) Pulse Ox O2 Delivery O2 Flow Rate FiO2 12/29/20 08:48 72 127/60 12/29/20 08:00 Room Air 12/29/20 07:00 97.7 16 94 97.7 I & O 12/28/20 12/28/20 12/29/20 15:00 23:00 07:00 Intake Total 665 ml 560 ml 200 ml Output Total 300 ml Balance 665 ml 560 ml -100 ml Physical Exam Physical Exam: GENERAL: Alert, oriented gentleman, not in any distress. HEENT: Both pupils are round and reacting. No conjunctival lesion. No lesion in the mouth. NECK: Supple. No JVP. No lymphadenopathy. LUNGS: Clear. HEART: S1, S2 regular. Pacer site clean ABDOMEN: Soft, nontender. No organomegaly. Obeses EXTREMITIES: Edema present bilaterally less today. There is ulcer on the left big toe as well as black eschar on the left calcaneum. R heel with mild wound/ Mild cellullitis on LLE - improved. Dorsalis pedis is not palpable. SKIN: Rest of skin exam is unremarkable. NEUROLOGIC: The patient is alert, awake, and appropriate. No focal neurologic deficit. General: Alert, Oriented X3, Cooperative, No acute distress Heart: Other (2/6 sysotlic murmur, IRRR- tele AFIB. int V pacing ) Lungs: Clear, Other Abdomen: Soft Extremities: Other (2-3+ bilateral LE edema, anasarca ) Skin: No significant lesion Labs Labs: Laboratory Tests Test 12/28/20 12:05 12/28/20 17:13 12/28/20 20:43 12/28/20 20:56 Glucose (Fingerstick) 105 mg/dL (70-99) 103 mg/dL (70-99) 138 mg/dL (70-99) 133 mg/dL (70-99) Test 12/29/20 07:10 12/29/20 08:23 White Blood Count 6.3 x10^3/uL (4.0-11.0) Red Blood Count 2.83 x10^6/uL (4.30-5.70) Hemoglobin 8.4 g/dL (13.0-17.5) Hematocrit 26.1 % (39.0-53.0) Mean Corpuscular Volume 92 fL (79-100) Mean Corpuscular Hemoglobin 30 pg (25-35) Mean Corpuscular Hemoglobin Concent 32 g/dL (31-37) Red Cell Distribution Width 18.5 % (11.5-14.5) Platelet Count 164 x10^3/uL (140-400) Neutrophils (%) (Auto) 60 % (31-73) Lymphocytes (%) (Auto) 18 % (24-48) Monocytes (%) (Auto) 10 % (0-9) Eosinophils (%) (Auto) 11 % (0-3) Basophils (%) (Auto) 1 % (0-3) Neutrophils # (Auto) 3.8 x10^3/uL (1.8-7.7) Lymphocytes # (Auto) 1.1 x10^3/uL (1.0-4.8) Monocytes # (Auto) 0.6 x10^3/uL (0.0-1.1) Eosinophils # (Auto) 0.7 x10^3/uL (0.0-0.7) Basophils # (Auto) 0.1 x10^3/uL (0.0-0.2) Sodium Level 144 mmol/L (136-145) Potassium Level 4.7 mmol/L (3.5-5.1) Chloride Level 109 mmol/L (98-107) Carbon Dioxide Level 25 mmol/L (21-32) Anion Gap 10 (6-14) Blood Urea Nitrogen 80 mg/dL (8-26) Creatinine 2.8 mg/dL (0.7-1.3) Estimated GFR (Cockcroft-Gault) 22.3 Glucose Level 99 mg/dL (70-99) Calcium Level 8.2 mg/dL (8.5-10.1) Glucose (Fingerstick) 102 mg/dL (70-99) Assessment and Plan Assessmemt and Plan Problems Medical Problems: (1) Anemia Status: Acute (2) CHF exacerbation Status: Acute Comment Review of Relevant I have reviewed the following items mara (where applicable) has been applied. Justifications for Admission Other Justification CHF exacerbation HOANG MAGAÑA MD December 29, 2020 10:39
[2020-12-29 11:00] VITALS: BP 143/75
[2020-12-29 15:00] VITALS: BP 139/65
[2020-12-29 19:00] VITALS: BP 129/59
[2020-12-29] MEDS: ATORVASTATIN CALCIUM 40 MG TABLET. PO SCH (20:36)
[2020-12-29] MEDS: INSULIN GLARGINE SYRINGE. SQ SCH (20:37)
[2020-12-29 22:15] VITALS: BP 133/60
[2020-12-30] VITALS (15 sets, daily range): BP systolic 124–182; BP diastolic 55–90
[2020-12-30] MEDS ORDERED: IV RINGERS,LACTATED 1000ML 1,000 ML IV SCH (06:00)
[2020-12-30] MEDS ORDERED: PROCHLORPERAZINE 10 MG/2 ML VIAL. IVP PRN (06:00)
[2020-12-30] MEDS ORDERED: MORPHINE SULFATE 2 MG/ML VIAL. IVP PRN (06:00)
[2020-12-30] MEDS ORDERED: HYDROmorphone 2 MG/ML VIAL IVP PRN (06:00)
[2020-12-30] MEDS ORDERED: fentaNYL PF VIAL 100 MCG/2 ML VIAL IVP PRN ×2 (06:00)
[2020-12-30] MEDS ORDERED: LIDOCAINE 2% PF 5 ML VIAL. ONE (06:36)
[2020-12-30] MEDS ORDERED: PROPOFOL 10 MG/ML (20ML) VIAL. IV ONE ×2 (06:36→07:56)
--- NOTE | 2020-12-30 07:19 | PDOC ---
[employer] PROGRESS NOTE Date of Service DOS: DATE: 12/30/20 TIME: 07:16 Chief Complaint Chief Complaint Acute volume overload Acute on chronic CHF exacerbation Hypokalemia History of chronic kidney disease Normocytic anemia, possible chronic GI blood loss with EGD showing antral gastric ulcer Left lower extremity wound ulcer with dry gangrene Morbid obesity, OHS, suspect ROBB Severe protein malnutrition History of diabetes mellitus type 2 History of peripheral vascular disease History of atrial fibrillation History of bradycardia status post pacemaker placement History of peripheral vascular disease Hypertension Dyslipidemia Admit to medicine for further management Pending MRI of lower extremity today Appreciate vascular surgery recommendationwe will obtain MRI to determine level of possible amputation ID consulted IV Lasix drip started Strict I's and O's Echocardiogram from 07/16/2020 - normal left ventricular systolic function, EF 55 to 60%. No regional wall motion abnormalities noted, valvular aortic stenosis. Moderate tricuspid regurgitation with PAP 68 mmHg. Nephrology consult Cardiology consult Trend hemoglobin if less than 7 then transfuse 1 unit Eliquis for DVT prophylaxis Pepcid GI prophylaxis ADA diet Full code Discussed with RN and SW Disposition inpatient management as above Surrogate decision maker is Phuong Mathis History of Present Illness History of Present Illness 12/30/2020 Afebrile, no new complaints today. Had left heel ulcer debridement today. I believe plan is to have wound VAC placed tomorrow. Continue antibiotics, per ID. He will need assisted once stable to discharge. Continue p.o. Lasix; continue gentle hydration and monitor kidney function. Creatinine 2.8, eGFR 22.3. 12/29/2020 Afebrile, breathing on room air. Plan is for elective debridement of the left heel ulcer tomorrow. Continue Augmentin and Zyvox, per ID. 12/28/2020 Afebrile, denies shortness of breath. Abdominal aortogram yesterday showed no significant aortoiliac disease bilaterally, isolated left posterior tibial artery occlusion with adequate two-vessel runoff to the distal foot and calcaneal area. Overall the patient is felt to have adequate runoff to the foot for further intervention with debridement of the left heel ulcer. I believe the plan is for elective debridement of left heel ulcer tomorrow. Discussed with RN. 12/27/2020 Afebrile, currently on room air. Off Lasix drip, currently Lasix 40 mg twice daily. Net positive fluid balance overnight, 510mL. Continue p.o. Augmentin and Zyvox. Aortogram pending today. 12/26/2020 No acute events overnight. Patient seen and examined bedside. -2.5 L output in the urine in the past 24 hours. No complaints from the patient. Pending aortogram with LLE runoff with vascular surgery. Follow-up 12/24/2020 Patient was seen and examined in room today. Awaiting plan from vascular/cardio on possible PCI/angio of LLE. Case discussed with RN and case management. Chart and specialist notes reviewed. 12/23/2020 No acute events overnight. Patient seen and examined bedside. Pedal edema has improved total of -2.3 L of urine output. Low potassium today will replace IV and p.o. Creatinine has also improved. Pending MRI versus CT of left lower extremity. Patient's chart, labs, images were reviewed and discussed with RN 12/22/2020 No acute events overnight patient seen and examined bedside. No significant weight loss with Lasix drip. Will defer further fluid offloading with cardiology. Pending MRI and further vascular surgery recommendations for lower extremity foot ulcer. Patient's chart, labs, images were reviewed and discussed with RN 12/21/2020 No acute events overnight. Patient has adequate urine output and feels less fluid overload. Documented -580 cc. Patient's chart, labs, images were reviewed and discussed with RN 75 year old male who was sent here from [facility] for evaluation due to bilateral lower extremity swelling, worsening renal function. He has history of CHF, history of chronic renal failure. Patient was sent here by the [employer] there today for evaluation of bilateral lower extremity swelling and increased renal function test. Patient denies any chest pain, denies any cough or fever. Patient does have trouble breathing with exertion. Patient says they told him to come here to be admitted so they can do colonoscopy because he has been anemic as well. Patient denies any rectal bleeding. His weight today is 147 kg Upon chart review patient was seen in November 04 09/12/2020 for GI bleed.. Eliquis was actually restarted on 11/09/2020. And also had a pacemaker placed on 11/09/2020 and tolerated procedure well. Patient also does follow-up with Dr. Chau with nephrology and his baseline creatinine appears to be between 1.8-2.0. Vitals/I&O Vitals/I&O: Vital Signs Date Time Temp Pulse Resp B/P (MAP) Pulse Ox O2 Delivery O2 Flow Rate FiO2 12/30/20 06:57 97.9 63 16 150/64 (92) 96 Room Air 97.9 I & O 12/29/20 12/29/20 12/30/20 15:00 23:00 07:00 Intake Total 50 ml 0 ml Output Total 100 ml Balance -100 ml 50 ml 0 ml Physical Exam Physical Exam: GENERAL: Alert, oriented gentleman, not in any distress. HEENT: Both pupils are round and reacting. No conjunctival lesion. No lesion in the mouth. NECK: Supple. No JVP. No lymphadenopathy. LUNGS: Clear. HEART: S1, S2 regular. Pacer site clean ABDOMEN: Soft, nontender. No organomegaly. Obeses EXTREMITIES: Edema present bilaterally less today. Bilateral rooke boots in place with left heel wrapped in bandage. SKIN: Rest of skin exam is unremarkable. NEUROLOGIC: The patient is alert, awake, and appropriate. No focal neurologic deficit. General: Alert, Oriented X3, Cooperative, No acute distress Heart: Other (2/6 sysotlic murmur, IRRR- tele AFIB. int V pacing ) Lungs: Clear, Other Abdomen: Soft Extremities: Other (2-3+ bilateral LE edema, anasarca ) Skin: No significant lesion Labs Labs: Laboratory Tests Test 12/29/20 08:23 12/29/20 11:38 12/29/20 16:35 12/29/20 20:27 Glucose (Fingerstick) 102 mg/dL (70-99) 136 mg/dL (70-99) 129 mg/dL (70-99) 135 mg/dL (70-99) Test 12/30/20 07:13 Glucose (Fingerstick) 102 mg/dL (70-99) Assessment and Plan Assessmemt and Plan Problems Medical Problems: (1) Anemia Status: Acute (2) CHF exacerbation Status: Acute Comment Review of Relevant I have reviewed the following items mara (where applicable) has been applied. Medications: Current Medications Medications (Trade) Dose Ordered Sig/Redd Route PRN Reason Start Time Stop Time Status Last Admin Dose Admin Ringer's Solution 1,000 ml @ 30 mls/hr Q24H IV 12/30/20 06:00 12/30/20 17:59 12/30/20 07:05 Justifications for Admission Other Justification CHF exacerbation HOANG MAGAÑA MD December 30, 2020 07:19
[2020-12-30] MEDS: INSULIN LISPRO 300 UNITS/3 ML VIAL. SQ SCH ×3 (07:27→15:50)
[2020-12-30] MEDS ORDERED: LIDOCAINE 1% Multi-Dose 20 ML VIAL. ONE (07:50)
--- NOTE | 2020-12-30 08:11 | PDOC ---
BRIEF OPERATIVE NOTE Date: December 30, 2020 Pre-Op Diagnosis Left heel gangrenous eschar, PVD Post-Op Diagnosis same Procedure Performed Left heel excisional debridement subcutaneous tissue and skin Surgeon Dr. Pretty Anesthesia Associate Chas Bernal,AGGIE Anesthesia Type: MAC Blood Loss 10cc Specimens Obtained discarded Findings adequate intraoperative bleeding Complications none Operative Note see dictated operative note CHAS BERNAL DIRECTOR OF TRAUMA December 30, 2020 08:11
[2020-12-30] MEDS: FUROSEMIDE 40 MG TABLET. PO SCH (08:58)
[2020-12-30] MEDS: ASCORBIC ACID 500 MG TABLET PO SCH ×2 (08:58→21:38)
[2020-12-30] MEDS: NYSTATIN TOPICAL POWDER 15GM BOTTLE. TP SCH ×2 (08:58→21:41)
[2020-12-30] MEDS: LINEZOLID 600 MG TABLET PO SCH ×2 (08:59→21:38)
[2020-12-30] MEDS: hydrALAZINE 25 MG TABLET PO SCH ×3 (08:59→21:38)
[2020-12-30] MEDS: AMOXICILLIN/K CLAV 875/125MG TABLET. PO SCH ×2 (08:59→21:38)
[2020-12-30] MEDS: METOPROLOL SUCC 24HR ER 25 MG TAB.ER.24H. PO SCH (09:00)
[2020-12-30] MEDS: FAMOTIDINE 20 MG TABLET. PO SCH (09:00)
[2020-12-30] MEDS: POTASSIUM CHLORIDE 20 MEQ TABLET.ER. PO SCH (09:00)
[2020-12-30] MEDS: SERTRALINE 50 MG TABLET. PO SCH (09:00)
[2020-12-30] MEDS: LACTOBACILLUS RHAMNOSUS GG 1 CAPSULE. PO SCH ×2 (09:00→21:38)
[2020-12-30] MEDS: FERROUS SULFATE 325 MG TABLET. PO SCH ×2 (09:00→16:21)
--- NOTE | 2020-12-30 09:01 | OP ---
DATE OF SURGERY: 12/30/2020 ATTENDING SURGEON: Aram Pretty DO ENVIRONMENTAL INTERN: ____. PREOPERATIVE DIAGNOSIS: Atherosclerosis with gangrene of the left heel. POSTOPERATIVE DIAGNOSIS: Atherosclerosis with gangrene of the left heel. PROCEDURE: Sharp excisional debridement of the left heel to the level of the subcutaneous tissue for a wound area of 5 x 4 cm. ANESTHESIA: MAC anesthesia. ESTIMATED BLOOD LOSS: 10 mL. COMPLICATIONS: None. PREOPERATIVE INDICATIONS: The patient is a pleasant 75-year-old male who is fairly sedentary and essentially bedbound, who has developed a gangrenous left heel ulcer. The patient's blood flow was evaluated and he does have 2-vessel runoff to the left lower extremity. This was found to be adequate to proceed with debridement. I met the patient on the date of the procedure and all risks, benefits and alternatives of the procedure were discussed and he was agreeable to proceed. DESCRIPTION OF PROCEDURE: The patient was brought to the operating suite, placed in supine position. After establishing appropriate sedation per anesthesia, the left foot was prepped and draped in a sterile fashion. Next, a timeout procedure was performed. It was confirmed that the correct operative site was marked and draped and the patient did receive appropriate perioperative antibiotics. Following this, using a #10-blade scalpel, the gangrenous eschar was sharply excised circumferentially in the wound. Following this, a curette was used to remove all nonviable fat in the subcutaneous layer and we got down to healthy bleeding tissue in the circumference of the wound and at the base of the wound. Once I was satisfied with the debridement, the wound was irrigated with saline solution. The total wound area measured 5 x 4 cm. Nonadherent dressing was placed and then a sterile dressing was placed including a compressive wrap. The patient tolerated the procedure well and was transferred to the postanesthesia care unit in stable condition. AT/SUB DR: Melina TID: [id number]
[2020-12-30] MEDS: ONDANSETRON PF 4 MG/2 ML VIAL. IVP PRN (09:08)
--- NOTE | 2020-12-30 09:50 | PDOC ---
DATE OF SERVICE DATE: 12/30/20 TIME: 09:50 SUBJECTIVE ROS Stable , s/p Left heel excisional debridement subcutaneous tissue and skin OBJECTIVE Vital Signs Vital Signs Date Time Temp Pulse Resp B/P (MAP) Pulse Ox O2 Delivery O2 Flow Rate FiO2 12/30/20 09:00 60 158/68 12/30/20 08:35 98.2 20 99 Nasal Cannula 2.0 98.2 I & 0 Intake and Output 12/30/20 07:00 Intake Total 50 ml Output Total 100 ml Balance -50 ml Intake Oral 50 ml Output Urine Total 100 ml # Bowel Movements 3 PHYSICAL EXAM Physical Exam General: NAD HEENT: Atraumatic, OM moist Neck supple Lungs: Clear to auscultation Heart: Bradycardic, ESM aortic) Abdomen: Soft, NT Extremities: Bilat LE edema 2-3 + a Neuro: grossly normal Psych/Mental Status: Mood NL lowery + , No cva or SP tenderness Skin No rash DIAGNOSIS/ASSESSMENT Assessment & Plan REBECCA on CKD - Cardiorenal , improved to baseline , Cr worsening again probabaly 2/2 rapid over diuresis, No labs available (ordered am labs) recommend gentle hydration (IVF ) , Decrease Lasix to QD or Hold , UOP decline(if recorded accurately) . Wt TREND (140's --> 109--> 124 (YESTERDAY)--> 109 TODAY ?Accuracy Supportive care Strict I/O, Daily accurate weight . Discussed with nursing CKD stage 3B/ 4 - Follows with Dr. Roca, baseline Cr per [facility] records prior to previous admission 1.8-2.0 but 2.3 to 2.5 since REBECCA recently in November 2020 HypoKalemia - stable, replace as indicated Hx of Acute blood loss anemia secondary to GIB. s/p cauterization of bleeding antral ulcer by GI team and PRBC in November . Hgb this admission low as well - defer to GI Renal calculus - RK- Possible intrarenal stones. LK Possible intrarenal stones to include a 13 mm focus of increased echogenicity at the upper pole.No e/o obs truction reported . Pt denies any past history Worsening LE edema- Bilat LE and anasarca- Wt up compared to his recent admi ssion . off Lasix gtt , currently on Lasix PO BID ,Cardiology managing Left heel wound with dry gangrene and 1st toe ulcer- s/p CO2 angiograph on 12/28 Acute on chronic diastolic CHF; Echo 07/25 with preserved LV systolic function Anemia with h/o GIB with cauterization of bleeding antral ulcer CAD; s/p PCI/RHEA to LAD in 2018. clinically stable, CP free. PAD s/p past orbital atherectomy/[employer] to right posterior tibial artery. Permanent AFIB; rate controlled on BB SSS; s/p PPM ([employer]) Hypertension; controlled Valvular disease; mild to moderate aortic stenosis COMMENT/RELEVANT DATA Meds Current Medications Medications (Trade) Dose Ordered Sig/Redd Start Time Stop Time Status Last Admin Dose Admin Acetaminophen (Tylenol) 650 mg PRN Q4HRS PRN 12/20/20 21:45 12/20/20 23:02 650 MG Amoxicillin/ Clavulanate Potassium (Augmentin 875/ 125mg) 1 tab BID 12/25/20 09:00 12/30/20 08:59 1 TAB Apixaban (Eliquis) 2.5 mg BID 12/20/20 22:00 12/21/20 13:36 DC 12/21/20 09:00 2.5 MG Ascorbic Acid (Vitamin C) 500 mg BID 12/20/20 22:00 12/30/20 08:58 500 MG Atorvastatin Calcium (Lipitor) 40 mg HS 12/20/20 22:00 12/29/20 20:36 40 MG Buspirone HCl (Buspar) 10 mg PRN DAILY PRN 12/20/20 21:45 Cefazolin Sodium/ Dextrose 50 ml @ 100 mls/hr 1X ONCE 12/30/20 08:00 12/30/20 08:29 DC 12/30/20 07:20 100 MLS/HR Dextrose (Dextrose 50%-Water Syringe) 12.5 gm PRN Q15MIN PRN 12/20/20 21:45 Docusate Sodium (Colace) 100 mg PRN DAILY PRN 12/20/20 21:45 Famotidine (Pepcid) 20 mg DAILY 12/21/20 09:00 12/30/20 09:00 20 MG Fentanyl Citrate (Fentanyl 2ml Vial) 50 mcg PRN Q5MIN PRN 12/30/20 06:00 12/31/20 05:59 Ferrous Sulfate (Feosol) 325 mg BIDWMEALS 12/24/20 17:00 12/30/20 09:00 325 MG Ferrous Sulfate (Iron Oral Solution) 300 mg BIDWMEALS 12/22/20 17:00 12/24/20 11:08 DC 12/24/20 08:54 300 MG Furosemide (Lasix) 40 mg BID94 12/26/20 10:30 12/30/20 08:58 40 MG Furosemide 100 mg/ Sodium Chloride 100 ml @ 0 mls/hr CONT PRN 12/21/20 11:30 12/26/20 10:28 DC 12/26/20 10:06 10 MLS/HR Heparin Sodium (Porcine) (Heparin Sodium) 2,500 unit 1X ONCE 12/27/20 12:15 12/27/20 12:19 DC 12/27/20 13:08 5,500 UNIT Heparin Sodium/ Sodium Chloride (HEPARIN for ARTERIAL LINE FLUSH) 1,000 unit 1X ONCE 12/27/20 12:15 12/27/20 12:19 DC 12/27/20 13:04 1,000 UNIT Hydralazine HCl (Apresoline) 25 mg TID 12/21/20 09:00 12/30/20 08:59 25 MG Hydromorphone HCl (Dilaudid) 0.5 mg PRN Q10MIN PRN 12/30/20 06:00 12/31/20 05:59 Insulin Glargine (Lantus Syringe) 15 unit QHS 12/20/20 22:00 12/26/20 20:53 15 UNIT Insulin Human Lispro (HumaLOG) 0-7 UNITS TIDWMEALS 12/21/20 08:00 Iodixanol (Visipaque 320) 100 ml 1X ONCE 12/27/20 12:15 12/27/20 12:19 DC 12/27/20 13:04 30 ML Lactobacillus Rhamnosus (Culturelle) 1 cap BID 12/26/20 21:00 12/30/20 09:00 1 CAP Lidocaine HCl (Lidocaine 1% 20ml Vial) 20 ml 1X ONCE 12/27/20 12:15 12/27/20 12:19 DC 12/27/20 13:04 10 ML Linezolid (Zyvox) 600 mg BID 12/25/20 09:00 12/30/20 08:59 600 MG Metoprolol Succinate (Toprol Xl) 25 mg DAILY 12/21/20 09:00 12/30/20 09:00 25 MG Midazolam HCl (Versed) 5 mg 1X ONCE 12/27/20 12:15 12/27/20 12:19 DC 12/27/20 13:05 1 MG Morphine Sulfate (Morphine Sulfate) 1 mg PRN Q10MIN PRN 12/30/20 06:00 12/31/20 05:59 Nystatin (Nystop) 1 luna BID 12/20/20 22:00 12/30/20 08:58 1 LUNA Ondansetron HCl (Zofran) 4 mg PRN Q6HRS PRN 12/20/20 21:45 12/30/20 09:08 4 MG Polyethylene Glycol (miraLAX PACKET) 17 gm PRN DAILY PRN 12/22/20 12:00 Potassium Chloride (Klor-Con) 40 meq DAILY 12/24/20 09:00 12/30/20 09:00 40 MEQ Prochlorperazine Edisylate (Compazine) 5 mg PACU PRN PRN 12/30/20 06:00 12/31/20 05:59 Ringer's Solution 1,000 ml @ 30 mls/hr Q24H 12/30/20 06:00 12/30/20 17:59 12/30/20 07:05 30 MLS/HR Sennosides (Senna) 17.2 mg PRN BID PRN 12/20/20 21:45 12/21/20 21:11 17.2 MG Sertraline HCl (Zoloft) 50 mg DAILY 12/21/20 09:00 12/30/20 09:00 50 MG Lab Laboratory Tests Test 12/29/20 11:38 12/29/20 16:35 12/29/20 20:27 12/30/20 07:13 Glucose (Fingerstick) 136 mg/dL (70-99) 129 mg/dL (70-99) 135 mg/dL (70-99) 102 mg/dL (70-99) Results All relevant outside records, renal labs, imaging studies, telemetry/EKG's were reviewed. Justicifation of Admission Dx: Justifications for Admission: Justification of Admission Dx: Yes BEATRIZ IBARRA MD December 30, 2020 09:50
--- NOTE | 2020-12-30 10:16 | PDOC ---
Date of Service: DATE: 12/30/20 TIME: 10:14 Objective: Objective: D/w nurse - no GI concerns, just back from debridement. Vital Signs: Vital Signs Date Time Temp Pulse Resp B/P (MAP) Pulse Ox O2 Delivery O2 Flow Rate FiO2 12/30/20 09:00 60 158/68 12/30/20 08:35 98.2 20 99 Nasal Cannula 2.0 98.2 Labs: Laboratory Tests Test 12/29/20 11:38 12/29/20 16:35 12/29/20 20:27 12/30/20 07:13 Glucose (Fingerstick) 136 mg/dL 129 mg/dL 135 mg/dL 102 mg/dL PE: GEN: NAD - bit drowsy, taking pills LUNGS: CTAB HEART: RRR ABD: soft, non-tender NEURO/PSYCH: A & O 3 A/P: Atherosclerosis with gangrene of the left heel s/p debridement CKD, chronic anemia, h/o -- Continue same per GI. Justicifation of Admission Dx: Justifications for Admission: Justification of Admission Dx: Yes FABBY ROBERTSON December 30, 2020 10:16
[2020-12-30 11:18] LABS: BASO # 0.1 x10^3/uL (0.0-0.2); BASO % 1 % (0-3); EOS # 0.7 x10^3/uL (0.0-0.7); EOS % 11 % (0-3); HEMATOCRIT 27.6 % (39.0-53.0); HEMOGLOBIN 8.7 g/dL (13.0-17.5); LYMPH # 1.1 x10^3/uL (1.0-4.8); LYMPH % 18 % (24-48); MEAN CORPUSCULAR HEMOGLOBIN 29 pg (25-35); MEAN CORPUSCULAR HGB CONC 32 g/dL (31-37); MEAN CORPUSCULAR VOLUME 92 fL (79-100); MONO # 0.6 x10^3/uL (0.0-1.1); MONO % 9 % (0-9); NEUT # 3.8 x10^3/uL (1.8-7.7); NEUT % 61 % (31-73); PLATELET COUNT 175 x10^3/uL (140-400); RED BLOOD COUNT 2.99 x10^6/uL (4.30-5.70); RED CELL DISTRIBUTION WIDTH 18.2 % (11.5-14.5); WHITE BLOOD COUNT 6.2 x10^3/uL (4.0-11.0)
[2020-12-30 11:26] LABS: CALCIUM 8.4 mg/dL (8.5-10.1); CREATININE 3.1 mg/dL (0.7-1.3); GFR 19.8; POTASSIUM 4.8 mmol/L (3.5-5.1)
--- NOTE | 2020-12-30 11:26 | PDOC ---
Infectious Disease Note Subjective: Subjective Patient just returned from I and D of foot wound this am Postop pain is under control Denies fever, nausea, vomiting, abdominal pain or diarrhea Vital Signs: Vital Signs Vital Signs Date Time Temp Pulse Resp B/P (MAP) Pulse Ox O2 Delivery O2 Flow Rate FiO2 12/30/20 11:00 97.9 68 18 139/65 (89) 94 Room Air 97.9 12/30/20 08:35 2.0 Physical Exam: PHYSICAL EXAM GENERAL: Alert, oriented gentleman, not in any distress. HEENT: Both pupils are round and reacting. No conjunctival lesion. No lesion in the mouth. NECK: Supple. No JVP. No lymphadenopathy. LUNGS: Clear. HEART: S1, S2 regular. Pacer site clean ABDOMEN: Soft, nontender. No organomegaly. Obeses EXTREMITIES: Edema present bilaterally BLE dressing in place, not take down. SKIN: Rest of skin exam is unremarkable. NEUROLOGIC: The patient is alert, awake, and appropriate. No focal neurologic deficit. Medications: Inpatient Meds: Medications reviewed. Labs: Lab Laboratory Tests Test 12/29/20 11:38 12/29/20 16:35 12/29/20 20:27 12/30/20 07:13 Glucose (Fingerstick) 136 mg/dL (70-99) 129 mg/dL (70-99) 135 mg/dL (70-99) 102 mg/dL (70-99) Test 12/30/20 11:00 12/30/20 11:01 White Blood Count 6.2 x10^3/uL (4.0-11.0) Red Blood Count 2.99 x10^6/uL (4.30-5.70) Hemoglobin 8.7 g/dL (13.0-17.5) Hematocrit 27.6 % (39.0-53.0) Mean Corpuscular Volume 92 fL (79-100) Mean Corpuscular Hemoglobin 29 pg (25-35) Mean Corpuscular Hemoglobin Concent 32 g/dL (31-37) Red Cell Distribution Width 18.2 % (11.5-14.5) Platelet Count 175 x10^3/uL (140-400) Neutrophils (%) (Auto) 61 % (31-73) Lymphocytes (%) (Auto) 18 % (24-48) Monocytes (%) (Auto) 9 % (0-9) Eosinophils (%) (Auto) 11 % (0-3) Basophils (%) (Auto) 1 % (0-3) Neutrophils # (Auto) 3.8 x10^3/uL (1.8-7.7) Lymphocytes # (Auto) 1.1 x10^3/uL (1.0-4.8) Monocytes # (Auto) 0.6 x10^3/uL (0.0-1.1) Eosinophils # (Auto) 0.7 x10^3/uL (0.0-0.7) Basophils # (Auto) 0.1 x10^3/uL (0.0-0.2) Glucose (Fingerstick) 118 mg/dL (70-99) Objective: Assessment: 1. Left calcaneal black eschar. MRI neg for osteo R heel wound - Cellulitis is better s/p I and D 12/30 2. Peripheral arterial disease. 3. Left big toe ulcer. 4. Obesity. 5. Diabetes. 6. Hypertension. 7. Congestive heart failure. 8. Renal insufficiency. 9. Sulfa allergy Plan: Plan of Care Continue Augmentin and Zyvox cont off load Wound care per wound team AMADOR ROSA MD December 30, 2020 11:26
[2020-12-30] MEDS ORDERED: IV NORMAL SALINE 500ML BAG 500 ML IV ONE (18:00)
[2020-12-30] MEDS: INSULIN GLARGINE SYRINGE. SQ SCH (21:00)
[2020-12-30] MEDS: ATORVASTATIN CALCIUM 40 MG TABLET. PO SCH (21:38)
[2020-12-31 02:24] VITALS: BP 137/59
[2020-12-31 07:44] LABS: BASO # 0.1 x10^3/uL (0.0-0.2); BASO % 1 % (0-3); EOS # 0.5 x10^3/uL (0.0-0.7); EOS % 9 % (0-3); HEMOGLOBIN 8.2 g/dL (13.0-17.5); LYMPH # 1.2 x10^3/uL (1.0-4.8); LYMPH % 20 % (24-48); MEAN CORPUSCULAR HEMOGLOBIN 30 pg (25-35); MEAN CORPUSCULAR HGB CONC 33 g/dL (31-37); MEAN CORPUSCULAR VOLUME 92 fL (79-100); MONO # 0.5 x10^3/uL (0.0-1.1); MONO % 9 % (0-9); NEUT # 3.6 x10^3/uL (1.8-7.7); NEUT % 60 % (31-73); PLATELET COUNT 156 x10^3/uL (140-400); RED BLOOD COUNT 2.73 x10^6/uL (4.30-5.70); RED CELL DISTRIBUTION WIDTH 18.3 % (11.5-14.5); WHITE BLOOD COUNT 5.9 x10^3/uL (4.0-11.0)
[2020-12-31 07:51] VITALS: BP 137/61
[2020-12-31] MEDS: INSULIN LISPRO 300 UNITS/3 ML VIAL. SQ SCH ×3 (08:00→16:53)
[2020-12-31 08:10] LABS: CALCIUM 8.1 mg/dL (8.5-10.1); CREATININE 3.1 mg/dL (0.7-1.3); GFR 19.8; POTASSIUM 4.7 mmol/L (3.5-5.1)
[2020-12-31] MEDS: hydrALAZINE 25 MG TABLET PO SCH ×3 (08:28→20:46)
[2020-12-31] MEDS: LACTOBACILLUS RHAMNOSUS GG 1 CAPSULE. PO SCH ×2 (08:28→20:46)
[2020-12-31] MEDS: FAMOTIDINE 20 MG TABLET. PO SCH (08:28)
[2020-12-31] MEDS: SERTRALINE 50 MG TABLET. PO SCH (08:28)
[2020-12-31] MEDS: ASCORBIC ACID 500 MG TABLET PO SCH ×2 (08:28→20:46)
[2020-12-31] MEDS: FERROUS SULFATE 325 MG TABLET. PO SCH ×2 (08:29→17:07)
[2020-12-31] MEDS: POTASSIUM CHLORIDE 20 MEQ TABLET.ER. PO SCH (08:29)
[2020-12-31] MEDS: LINEZOLID 600 MG TABLET PO SCH ×2 (08:29→20:46)
[2020-12-31] MEDS: AMOXICILLIN/K CLAV 875/125MG TABLET. PO SCH (08:29)
[2020-12-31] MEDS: METOPROLOL SUCC 24HR ER 25 MG TAB.ER.24H. PO SCH (08:29)
[2020-12-31] MEDS: NYSTATIN TOPICAL POWDER 15GM BOTTLE. TP SCH ×2 (08:29→20:48)
[2020-12-31] MEDS: ONDANSETRON PF 4 MG/2 ML VIAL. IVP PRN (08:35)
--- NOTE | 2020-12-31 08:43 | PDOC ---
Infectious Disease Note Subjective: Subjective Patient had some nausea Postop pain is under control Denies fever, vomiting, abdominal pain or diarrhea Vital Signs: Vital Signs Vital Signs Date Time Temp Pulse Resp B/P (MAP) Pulse Ox O2 Delivery O2 Flow Rate FiO2 12/31/20 08:29 67 137/61 12/31/20 07:51 96.8 18 93 Room Air 96.8 12/30/20 08:35 2.0 Physical Exam: PHYSICAL EXAM GENERAL: Alert, oriented gentleman, not in any distress. HEENT: Both pupils are round and reacting. No conjunctival lesion. No lesion in the mouth. NECK: Supple. No JVP. No lymphadenopathy. LUNGS: Clear. HEART: S1, S2 regular. Pacer site clean ABDOMEN: Soft, nontender. No organomegaly. Obeses EXTREMITIES: Edema present bilaterally less today. Bilateral rooke boots in place with left heel wrapped in bandage. SKIN: Rest of skin exam is unremarkable. NEUROLOGIC: The patient is alert, awake, and appropriate. No focal neurologic deficit. Medications: Inpatient Meds: Medications reviewed. Labs: Lab Laboratory Tests Test 12/30/20 11:00 12/30/20 11:01 12/30/20 15:47 12/30/20 20:32 White Blood Count 6.2 x10^3/uL (4.0-11.0) Red Blood Count 2.99 x10^6/uL (4.30-5.70) Hemoglobin 8.7 g/dL (13.0-17.5) Hematocrit 27.6 % (39.0-53.0) Mean Corpuscular Volume 92 fL (79-100) Mean Corpuscular Hemoglobin 29 pg (25-35) Mean Corpuscular Hemoglobin Concent 32 g/dL (31-37) Red Cell Distribution Width 18.2 % (11.5-14.5) Platelet Count 175 x10^3/uL (140-400) Neutrophils (%) (Auto) 61 % (31-73) Lymphocytes (%) (Auto) 18 % (24-48) Monocytes (%) (Auto) 9 % (0-9) Eosinophils (%) (Auto) 11 % (0-3) Basophils (%) (Auto) 1 % (0-3) Neutrophils # (Auto) 3.8 x10^3/uL (1.8-7.7) Lymphocytes # (Auto) 1.1 x10^3/uL (1.0-4.8) Monocytes # (Auto) 0.6 x10^3/uL (0.0-1.1) Eosinophils # (Auto) 0.7 x10^3/uL (0.0-0.7) Basophils # (Auto) 0.1 x10^3/uL (0.0-0.2) Sodium Level 142 mmol/L (136-145) Potassium Level 4.8 mmol/L (3.5-5.1) Chloride Level 108 mmol/L (98-107) Carbon Dioxide Level 23 mmol/L (21-32) Anion Gap 11 (6-14) Blood Urea Nitrogen 79 mg/dL (8-26) Creatinine 3.1 mg/dL (0.7-1.3) Estimated GFR (Cockcroft-Gault) 19.8 Glucose Level 108 mg/dL (70-99) Calcium Level 8.4 mg/dL (8.5-10.1) Glucose (Fingerstick) 118 mg/dL (70-99) 150 mg/dL (70-99) 169 mg/dL (70-99) Test 12/31/20 06:30 12/31/20 06:50 12/31/20 07:56 White Blood Count 5.9 x10^3/uL (4.0-11.0) Red Blood Count 2.73 x10^6/uL (4.30-5.70) Hemoglobin 8.2 g/dL (13.0-17.5) Hematocrit 25.0 % (39.0-53.0) Mean Corpuscular Volume 92 fL (79-100) Mean Corpuscular Hemoglobin 30 pg (25-35) Mean Corpuscular Hemoglobin Concent 33 g/dL (31-37) Red Cell Distribution Width 18.3 % (11.5-14.5) Platelet Count 156 x10^3/uL (140-400) Neutrophils (%) (Auto) 60 % (31-73) Lymphocytes (%) (Auto) 20 % (24-48) Monocytes (%) (Auto) 9 % (0-9) Eosinophils (%) (Auto) 9 % (0-3) Basophils (%) (Auto) 1 % (0-3) Neutrophils # (Auto) 3.6 x10^3/uL (1.8-7.7) Lymphocytes # (Auto) 1.2 x10^3/uL (1.0-4.8) Monocytes # (Auto) 0.5 x10^3/uL (0.0-1.1) Eosinophils # (Auto) 0.5 x10^3/uL (0.0-0.7) Basophils # (Auto) 0.1 x10^3/uL (0.0-0.2) Sodium Level 141 mmol/L (136-145) Potassium Level 4.7 mmol/L (3.5-5.1) Chloride Level 108 mmol/L (98-107) Carbon Dioxide Level 24 mmol/L (21-32) Anion Gap 9 (6-14) Blood Urea Nitrogen 78 mg/dL (8-26) Creatinine 3.1 mg/dL (0.7-1.3) Estimated GFR (Cockcroft-Gault) 19.8 Glucose Level 116 mg/dL (70-99) Calcium Level 8.1 mg/dL (8.5-10.1) Glucose (Fingerstick) 103 mg/dL (70-99) Objective: Assessment: 1. Left calcaneal black eschar. MRI neg for osteo R heel wound - Cellulitis is better 12/30 s/p Left heel excisional debridement subcutaneous tissue and skin 2. Peripheral arterial disease. 3. Left big toe ulcer. 4. Obesity. 5. Diabetes. 6. Hypertension. 7. Congestive heart failure. 8. Renal insufficiency. 9. Sulfa allergy Plan: Plan of Care Continue Augmentin and Zyvox cont off load Wound care per wound team AMADOR ROSA MD December 31, 2020 08:43
[2020-12-31] MEDS ORDERED: AMOXICILLIN/K CLAV 500/125MG TABLET. PO SCH (09:00)
--- NOTE | 2020-12-31 10:00 | PDOC ---
Date of Service: DATE: 12/31/20 TIME: 09:56 Subjective: Subjective: Not too hungry for breakfast - doesn't like egss, sometimes feels nauseated after taking pills. Stooled yesterday. Objective: Objective: D/w nurse - stool looked a little dark (on iron). Vital Signs: Vital Signs Date Time Temp Pulse Resp B/P (MAP) Pulse Ox O2 Delivery O2 Flow Rate FiO2 12/31/20 08:29 67 137/61 12/31/20 08:00 Room Air 12/31/20 07:51 96.8 18 93 96.8 12/30/20 08:35 2.0 Labs: Laboratory Tests Test 12/30/20 11:00 12/30/20 11:01 12/30/20 15:47 12/30/20 20:32 White Blood Count 6.2 x10^3/uL Red Blood Count 2.99 x10^6/uL Hemoglobin 8.7 g/dL Hematocrit 27.6 % Mean Corpuscular Volume 92 fL Mean Corpuscular Hemoglobin 29 pg Mean Corpuscular Hemoglobin Concent 32 g/dL Red Cell Distribution Width 18.2 % Platelet Count 175 x10^3/uL Neutrophils (%) (Auto) 61 % Lymphocytes (%) (Auto) 18 % Monocytes (%) (Auto) 9 % Eosinophils (%) (Auto) 11 % Basophils (%) (Auto) 1 % Neutrophils # (Auto) 3.8 x10^3/uL Lymphocytes # (Auto) 1.1 x10^3/uL Monocytes # (Auto) 0.6 x10^3/uL Eosinophils # (Auto) 0.7 x10^3/uL Basophils # (Auto) 0.1 x10^3/uL Sodium Level 142 mmol/L Potassium Level 4.8 mmol/L Chloride Level 108 mmol/L Carbon Dioxide Level 23 mmol/L Anion Gap 11 Blood Urea Nitrogen 79 mg/dL Creatinine 3.1 mg/dL Estimated GFR (Cockcroft-Gault) 19.8 Glucose Level 108 mg/dL Calcium Level 8.4 mg/dL Glucose (Fingerstick) 118 mg/dL 150 mg/dL 169 mg/dL Test 12/31/20 06:30 12/31/20 06:50 12/31/20 07:56 White Blood Count 5.9 x10^3/uL Red Blood Count 2.73 x10^6/uL Hemoglobin 8.2 g/dL Hematocrit 25.0 % Mean Corpuscular Volume 92 fL Mean Corpuscular Hemoglobin 30 pg Mean Corpuscular Hemoglobin Concent 33 g/dL Red Cell Distribution Width 18.3 % Platelet Count 156 x10^3/uL Neutrophils (%) (Auto) 60 % Lymphocytes (%) (Auto) 20 % Monocytes (%) (Auto) 9 % Eosinophils (%) (Auto) 9 % Basophils (%) (Auto) 1 % Neutrophils # (Auto) 3.6 x10^3/uL Lymphocytes # (Auto) 1.2 x10^3/uL Monocytes # (Auto) 0.5 x10^3/uL Eosinophils # (Auto) 0.5 x10^3/uL Basophils # (Auto) 0.1 x10^3/uL Sodium Level 141 mmol/L Potassium Level 4.7 mmol/L Chloride Level 108 mmol/L Carbon Dioxide Level 24 mmol/L Anion Gap 9 Blood Urea Nitrogen 78 mg/dL Creatinine 3.1 mg/dL Estimated GFR (Cockcroft-Gault) 19.8 Glucose Level 116 mg/dL Calcium Level 8.1 mg/dL Glucose (Fingerstick) 103 mg/dL PE: GEN: NAD, taking pills LUNGS: clear anteriorly ABD: soft, non-tender EXTREM: w/ boots NEURO/PSYCH: A & O 3 A/P: 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 Justicifation of Admission Dx: Justifications for Admission: Justification of Admission Dx: Yes FABBY ROBERTSON December 31, 2020 10:00 PHILLIP FLETCHER MD December 31, 2020 10:13
[2020-12-31 10:16] VITALS: BP 141/57
--- NOTE | 2020-12-31 10:34 | PDOC ---
DATE OF SERVICE DATE: 12/31/20 TIME: 10:34 SUBJECTIVE ROS Stable , working with PT OBJECTIVE Vital Signs Vital Signs Date Time Temp Pulse Resp B/P (MAP) Pulse Ox O2 Delivery O2 Flow Rate FiO2 12/31/20 10:16 98.5 70 18 141/57 (85) 94 Room Air 98.5 12/30/20 08:35 2.0 I & 0 Intake and Output 12/31/20 07:00 Intake Total 800 ml Output Total 710 ml Balance 90 ml Intake Oral 500 ml IV Total 300 ml Output Urine Total 700 ml Estimated Blood Loss 10 ml # Bowel Movements 1 PHYSICAL EXAM Physical Exam General: NAD HEENT: Atraumatic, OM moist Neck supple Lungs: Clear to auscultation Heart: Bradycardic, ESM aortic) Abdomen: Soft, NT Extremities: Bilat LE edema 2-3 + a Neuro: grossly normal Psych/Mental Status: Mood NL lowery + , No cva or SP tenderness Skin No rash DIAGNOSIS/ASSESSMENT Assessment & Plan REBECCA on CKD - Cardiorenal ,did improved to baseline , Cr increased again probably 2/2 over diuresis, Cr stable at 3.1 today, Wt inaccurately charted recommend gentle hydration IVF, Lasix held since 12/30(pm dose) , UOP some improvement Supportive care Strict I/O, Daily accurate weight . Discussed with nursing . CKD stage 3B/ 4 - Follows with Dr. Roca at [facility] , baseline Cr per [facility] records prior to previous admission 1.8-2.0 but 2.3 to 2.5 since REBECCA recently in November 2020 HypoKalemia - stable, replace as indicated Hx of Acute blood loss anemia secondary to GIB. s/p cauterization of bleeding antral ulcer by GI team and PRBC in November . Hgb this admission low as well - defer to GI Renal calculus - RK- Possible intrarenal stones. LK Possible intrarenal stones to include a 13 mm focus of increased echogenicity at the upper pole.No e/o obstruction reported . Pt denies any past history Worsening LE edema- Bilat LE and anasarca- Wt up compared to his recent admission . off Lasix gtt , currently on Lasix PO BID ,Cardiology managing Left heel wound with dry gangrene and 1st toe ulcer- s/p CO2 angiograph on 12/28 Acute on chronic diastolic CHF; Echo 07/25 with preserved LV systolic function Anemia with h/o GIB with cauterization of bleeding antral ulcer CAD; s/p PCI/RHEA to LAD in 2019. clinically stable, CP free. PAD s/p past orbital atherectomy/OCC MED PHYSICIAN to right posterior tibial artery. Permanent AFIB; rate controlled on BB SSS; s/p PPM ([employer]) Hypertension; controlled Valvular disease; mild to moderate aortic stenosis COMMENT/RELEVANT DATA Meds Current Medications Medications (Trade) Dose Ordered Sig/Redd Start Time Stop Time Status Last Admin Dose Admin Acetaminophen (Tylenol) 650 mg PRN Q4HRS PRN 12/20/20 21:45 12/20/20 23:02 650 MG Amoxicillin/ Clavulanate Potassium (Augmentin 500/ 125mg) 1 tab BID 12/31/20 21:00 Amoxicillin/ Clavulanate Potassium (Augmentin 875/ 125mg) 1 tab BID 12/25/20 09:00 12/31/20 08:43 DC 12/31/20 08:29 1 TAB Apixaban (Eliquis) 2.5 mg BID 12/20/20 22:00 12/21/20 13:36 DC 12/21/20 09:00 2.5 MG Ascorbic Acid (Vitamin C) 500 mg BID 12/20/20 22:00 12/31/20 08:28 500 MG Atorvastatin Calcium (Lipitor) 40 mg HS 12/20/20 22:00 12/30/20 21:38 40 MG Buspirone HCl (Buspar) 10 mg PRN DAILY PRN 12/20/20 21:45 Cefazolin Sodium/ Dextrose 50 ml @ 100 mls/hr 1X ONCE 12/30/20 08:00 12/30/20 08:29 DC 12/30/20 07:20 100 MLS/HR Dextrose (Dextrose 50%-Water Syringe) 12.5 gm PRN Q15MIN PRN 12/20/20 21:45 Docusate Sodium (Colace) 100 mg PRN DAILY PRN 12/20/20 21:45 Famotidine (Pepcid) 20 mg DAILY 12/21/20 09:00 12/31/20 08:28 20 MG Fentanyl Citrate (Fentanyl 2ml Vial) 50 mcg PRN Q5MIN PRN 12/30/20 06:00 12/31/20 05:59 DC Ferrous Sulfate (Feosol) 325 mg BIDWMEALS 12/24/20 17:00 12/31/20 08:29 325 MG Ferrous Sulfate (Iron Oral Solution) 300 mg BIDWMEALS 12/22/20 17:00 12/24/20 11:08 DC 12/24/20 08:54 300 MG Furosemide (Lasix) 40 mg [id number] 12/26/20 10:30 12/30/20 11:38 DC 12/30/20 08:58 40 MG Furosemide 100 mg/ Sodium Chloride 100 ml @ 0 mls/hr CONT PRN 12/21/20 11:30 12/26/20 10:28 DC 12/26/20 10:06 10 MLS/HR Heparin Sodium (Porcine) (Heparin Sodium) 2,500 unit 1X ONCE 12/27/20 12:15 12/27/20 12:19 DC 12/27/20 13:08 5,500 UNIT Heparin Sodium/ Sodium Chloride (HEPARIN for ARTERIAL LINE FLUSH) 1,000 unit 1X ONCE 12/27/20 12:15 12/27/20 12:19 DC 12/27/20 13:04 1,000 UNIT Hydralazine HCl (Apresoline) 25 mg TID 12/21/20 09:00 12/31/20 08:28 25 MG Hydromorphone HCl (Dilaudid) 0.5 mg PRN Q10MIN PRN 12/30/20 06:00 12/31/20 05:59 DC Insulin Glargine (Lantus Syringe) 15 unit QHS 12/20/20 22:00 12/26/20 20:53 15 UNIT Insulin Human Lispro (HumaLOG) 0-7 UNITS TIDWMEALS 12/21/20 08:00 Iodixanol (Visipaque 320) 100 ml 1X ONCE 12/27/20 12:15 12/27/20 12:19 DC 12/27/20 13:04 30 ML Lactobacillus Rhamnosus (Culturelle) 1 cap BID 12/26/20 21:00 12/31/20 08:28 1 CAP Lidocaine HCl (Lidocaine 1% 20ml Vial) 20 ml STK-MED ONCE 12/30/20 07:50 12/30/20 19:07 DC Lidocaine HCl (Lidocaine Pf 2% Vial) 5 ml STK-MED ONCE 12/30/20 06:36 12/30/20 19:06 DC Linezolid (Zyvox) 600 mg BID 12/25/20 09:00 12/31/20 08:29 600 MG Metoprolol Succinate (Toprol Xl) 25 mg DAILY 12/21/20 09:00 12/31/20 08:29 25 MG Midazolam HCl (Versed) 5 mg 1X ONCE 12/27/20 12:15 12/27/20 12:19 DC 12/27/20 13:05 1 MG Morphine Sulfate (Morphine Sulfate) 1 mg PRN Q10MIN PRN 12/30/20 06:00 12/31/20 05:59 DC Nystatin (Nystop) 1 luna BID 12/20/20 22:00 12/31/20 08:29 1 LUNA Ondansetron HCl (Zofran) 4 mg PRN Q6HRS PRN 12/20/20 21:45 12/31/20 08:35 4 MG Polyethylene Glycol (miraLAX PACKET) 17 gm PRN DAILY PRN 12/22/20 12:00 Potassium Chloride (Klor-Con) 40 meq DAILY 12/24/20 09:00 12/31/20 08:29 40 MEQ Prochlorperazine Edisylate (Compazine) 5 mg PACU PRN PRN 12/30/20 06:00 12/31/20 05:59 DC Propofol (Diprivan) 200 mg STK-MED ONCE 12/30/20 07:56 12/30/20 19:08 DC Ringer's Solution 1,000 ml @ 30 mls/hr Q24H 12/30/20 06:00 12/30/20 17:59 DC 12/30/20 07:05 30 MLS/HR Sennosides (Senna) 17.2 mg PRN BID PRN 12/20/20 21:45 12/21/20 21:11 17.2 MG Sertraline HCl (Zoloft) 50 mg DAILY 12/21/20 09:00 12/31/20 08:28 50 MG Sodium Chloride 500 ml @ 75 mls/hr 1X ONCE 12/30/20 18:00 12/31/20 00:39 DC 12/30/20 17:44 75 MLS/HR Lab Laboratory Tests Test 12/30/20 11:00 12/30/20 11:01 12/30/20 15:47 12/30/20 20:32 White Blood Count 6.2 x10^3/uL (4.0-11.0) Red Blood Count 2.99 x10^6/uL (4.30-5.70) Hemoglobin 8.7 g/dL (13.0-17.5) Hematocrit 27.6 % (39.0-53.0) Mean Corpuscular Volume 92 fL (79-100) Mean Corpuscular Hemoglobin 29 pg (25-35) Mean Corpuscular Hemoglobin Concent 32 g/dL (31-37) Red Cell Distribution Width 18.2 % (11.5-14.5) Platelet Count 175 x10^3/uL (140-400) Neutrophils (%) (Auto) 61 % (31-73) Lymphocytes (%) (Auto) 18 % (24-48) Monocytes (%) (Auto) 9 % (0-9) Eosinophils (%) (Auto) 11 % (0-3) Basophils (%) (Auto) 1 % (0-3) Neutrophils # (Auto) 3.8 x10^3/uL (1.8-7.7) Lymphocytes # (Auto) 1.1 x10^3/uL (1.0-4.8) Monocytes # (Auto) 0.6 x10^3/uL (0.0-1.1) Eosinophils # (Auto) 0.7 x10^3/uL (0.0-0.7) Basophils # (Auto) 0.1 x10^3/uL (0.0-0.2) Sodium Level 142 mmol/L (136-145) Potassium Level 4.8 mmol/L (3.5-5.1) Chloride Level 108 mmol/L (98-107) Carbon Dioxide Level 23 mmol/L (21-32) Anion Gap 11 (6-14) Blood Urea Nitrogen 79 mg/dL (8-26) Creatinine 3.1 mg/dL (0.7-1.3) Estimated GFR (Cockcroft-Gault) 19.8 Glucose Level 108 mg/dL (70-99) Calcium Level 8.4 mg/dL (8.5-10.1) Glucose (Fingerstick) 118 mg/dL (70-99) 150 mg/dL (70-99) 169 mg/dL (70-99) Test 12/31/20 06:30 12/31/20 06:50 12/31/20 07:56 White Blood Count 5.9 x10^3/uL (4.0-11.0) Red Blood Count 2.73 x10^6/uL (4.30-5.70) Hemoglobin 8.2 g/dL (13.0-17.5) Hematocrit 25.0 % (39.0-53.0) Mean Corpuscular Volume 92 fL (79-100) Mean Corpuscular Hemoglobin 30 pg (25-35) Mean Corpuscular Hemoglobin Concent 33 g/dL (31-37) Red Cell Distribution Width 18.3 % (11.5-14.5) Platelet Count 156 x10^3/uL (140-400) Neutrophils (%) (Auto) 60 % (31-73) Lymphocytes (%) (Auto) 20 % (24-48) Monocytes (%) (Auto) 9 % (0-9) Eosinophils (%) (Auto) 9 % (0-3) Basophils (%) (Auto) 1 % (0-3) Neutrophils # (Auto) 3.6 x10^3/uL (1.8-7.7) Lymphocytes # (Auto) 1.2 x10^3/uL (1.0-4.8) Monocytes # (Auto) 0.5 x10^3/uL (0.0-1.1) Eosinophils # (Auto) 0.5 x10^3/uL (0.0-0.7) Basophils # (Auto) 0.1 x10^3/uL (0.0-0.2) Sodium Level 141 mmol/L (136-145) Potassium Level 4.7 mmol/L (3.5-5.1) Chloride Level 108 mmol/L (98-107) Carbon Dioxide Level 24 mmol/L (21-32) Anion Gap 9 (6-14) Blood Urea Nitrogen 78 mg/dL (8-26) Creatinine 3.1 mg/dL (0.7-1.3) Estimated GFR (Cockcroft-Gault) 19.8 Glucose Level 116 mg/dL (70-99) Calcium Level 8.1 mg/dL (8.5-10.1) Glucose (Fingerstick) 103 mg/dL (70-99) Results All relevant outside records, renal labs, imaging studies, telemetry/EKG's were reviewed. Justicifation of Admission Dx: Justifications for Admission: Justification of Admission Dx: Yes BEATRIZ IBARRA MD December 31, 2020 10:34
[2020-12-31] MEDS ORDERED: IV NORMAL SALINE 1000ML BAG 1,000 ML IV ONE (11:30)
--- NOTE | 2020-12-31 12:50 | PDOC ---
[employer] PROGRESS NOTE Date of Service DOS: DATE: 12/31/20 TIME: 12:53 Chief Complaint Chief Complaint Acute volume overload Acute on chronic CHF exacerbation Hypokalemia History of chronic kidney disease Normocytic anemia, possible chronic GI blood loss with EGD showing antral gastric ulcer Left lower extremity wound ulcer with dry gangrene Morbid obesity, OHS, suspect ROBB Severe protein malnutrition History of diabetes mellitus type 2 History of peripheral vascular disease History of atrial fibrillation History of bradycardia status post pacemaker placement History of peripheral vascular disease Hypertension Dyslipidemia Admit to medicine for further management Pending MRI of lower extremity today Appreciate vascular surgery recommendationwe will obtain MRI to determine level of possible amputation ID consulted IV Lasix drip started Strict I's and O's Echocardiogram from 07/16/2020 - normal left ventricular systolic function, EF 55 to 60%. No regional wall motion abnormalities noted, valvular aortic stenosis. Moderate tricuspid regurgitation with PAP 68 mmHg. Nephrology consult Cardiology consult Trend hemoglobin if less than 7 then transfuse 1 unit Eliquis for DVT prophylaxis Pepcid GI prophylaxis ADA diet Full code Discussed with RN and SW Disposition inpatient management as above Surrogate decision maker is Phuong Mathis History of Present Illness History of Present Illness 12/31/2020 Afebrile, no acute events overnight. Wound care is addressing his heels this morning. Plan to have wound VAC placed prior to discharge. BUN 78, creatinine 3.1 today. Due to concerns of worsening renal function and concerns for lack of appropriate follow-up at [facility], will hold discharge today until kidney function can be addressed by nephrology, likely with gentle hydration and close monitoring of kidney function. These methods are being taken to attempt to avoid the need for renal replacement therapy in the future. Discussed with patient and , and they are agreeable to this plan. 12/30/2020 Afebrile, no new complaints today. Had left heel ulcer debridement today. I believe plan is to have wound VAC placed tomorrow. Continue antibiotics, per ID. He will need usp once stable to discharge. Continue p.o. Lasix; continue gentle hydration and monitor kidney function. Creatinine 2.8, eGFR 22.3. 12/29/2020 Afebrile, breathing on room air. Plan is for elective debridement of the left heel ulcer tomorrow. Continue Augmentin and Zyvox, per ID. 12/28/2020 Afebrile, denies shortness of breath. Abdominal aortogram yesterday showed no significant aortoiliac disease bilaterally, isolated left posterior tibial artery occlusion with adequate two-vessel runoff to the distal foot and calcaneal area. Overall the patient is felt to have adequate runoff to the foot for further intervention with debridement of the left heel ulcer. I believe the plan is for elective debridement of left heel ulcer tomorrow. Discussed with RN. 12/27/2020 Afebrile, currently on room air. Off Lasix drip, currently Lasix 40 mg twice daily. Net positive fluid balance overnight, 510mL. Continue p.o. Augmentin and Zyvox. Aortogram pending today. 12/26/2020 No acute events overnight. Patient seen and examined bedside. -2.5 L output in the urine in the past 24 hours. No complaints from the patient. Pending aortogram with LLE runoff with vascular surgery. Follow-up 12/24/2020 Patient was seen and examined in room today. Awaiting plan from vascular/cardio on possible PCI/angio of LLE. Case discussed with RN and case management. Chart and specialist notes reviewed. 12/23/2020 No acute events overnight. Patient seen and examined bedside. Pedal edema has improved total of -2.3 L of urine output. Low potassium today will replace IV and p.o. Creatinine has also improved. Pending MRI versus CT of left lower extremity. Patient's chart, labs, images were reviewed and discussed with RN 12/22/2020 No acute events overnight patient seen and examined bedside. No significant weight loss with Lasix drip. Will defer further fluid offloading with cardi ology. Pending MRI and further vascular surgery recommendations for lower extremity foot ulcer. Patient's chart, labs, images were reviewed and discussed with RN 12/21/2020 No acute events overnight. Patient has adequate urine output and feels less fluid overload. Documented -580 cc. Patient's chart, labs, images were reviewed and discussed with RN 75 year old male who was sent here from [facility] for evaluation due to bilateral lower extremity swelling, worsening renal function. He has history of CHF, history of chronic renal failure. Patient was sent here by the [employer] there today for evaluation of bilateral lower extremity swelling and increased renal function test. Patient denies any chest pain, denies any cough or fever. Patient does have trouble breathing with exertion. Patient says they told him to come here to be admitted so they can do colonoscopy because he has been anemic as well. Patient denies any rectal bleeding. His weight today is 147 kg Upon chart review patient was seen in November 04 09/12/2020 for GI bleed.. Eliquis was actually restarted on 11/09/2020. And also had a pacemaker placed on 11/09/2020 and tolerated procedure well. Patient also does follow-up with Dr. Chau with nephrology and his baseline creatinine appears to be between 1.8-2.0. Vitals/I&O Vitals/I&O: Vital Signs Date Time Temp Pulse Resp B/P (MAP) Pulse Ox O2 Delivery O2 Flow Rate FiO2 12/31/20 10:16 98.5 70 18 141/57 (85) 94 Room Air 98.5 12/30/20 08:35 2.0 I & O 12/30/20 12/30/20 12/31/20 14:52 22:52 06:52 Intake Total 300 ml 200 ml 300 ml Output Total 360 ml 350 ml Balance -60 ml 200 ml -50 ml Physical Exam Physical Exam: GENERAL: Alert, oriented gentleman, not in any distress. HEENT: Both pupils are round and reacting. No conjunctival lesion. No lesion in the mouth. NECK: Supple. No JVP. No lymphadenopathy. LUNGS: Clear. HEART: S1, S2 regular. Pacer site clean ABDOMEN: Soft, nontender. No organomegaly. Obeses EXTREMITIES: Edema present bilaterally less today. Bilateral rooke boots in place with left heel wrapped in bandage. SKIN: Rest of skin exam is unremarkable. NEUROLOGIC: The patient is alert, awake, and appropriate. No focal neurologic deficit. General: Alert, Oriented X3, Cooperative, No acute distress Heart: Other (2/6 sysotlic murmur, IRRR- tele AFIB. int V pacing ) Lungs: Clear, Other Abdomen: Soft Extremities: Other (2-3+ bilateral LE edema, anasarca ) Skin: No significant lesion Labs Labs: Laboratory Tests Test 12/30/20 15:47 12/30/20 20:32 12/31/20 06:30 12/31/20 06:50 Glucose (Fingerstick) 150 mg/dL (70-99) 169 mg/dL (70-99) White Blood Count 5.9 x10^3/uL (4.0-11.0) Red Blood Count 2.73 x10^6/uL (4.30-5.70) Hemoglobin 8.2 g/dL (13.0-17.5) Hematocrit 25.0 % (39.0-53.0) Mean Corpuscular Volume 92 fL (79-100) Mean Corpuscular Hemoglobin 30 pg (25-35) Mean Corpuscular Hemoglobin Concent 33 g/dL (31-37) Red Cell Distribution Width 18.3 % (11.5-14.5) Platelet Count 156 x10^3/uL (140-400) Neutrophils (%) (Auto) 60 % (31-73) Lymphocytes (%) (Auto) 20 % (24-48) Monocytes (%) (Auto) 9 % (0-9) Eosinophils (%) (Auto) 9 % (0-3) Basophils (%) (Auto) 1 % (0-3) Neutrophils # (Auto) 3.6 x10^3/uL (1.8-7.7) Lymphocytes # (Auto) 1.2 x10^3/uL (1.0-4.8) Monocytes # (Auto) 0.5 x10^3/uL (0.0-1.1) Eosinophils # (Auto) 0.5 x10^3/uL (0.0-0.7) Basophils # (Auto) 0.1 x10^3/uL (0.0-0.2) Sodium Level 141 mmol/L (136-145) Potassium Level 4.7 mmol/L (3.5-5.1) Chloride Level 108 mmol/L (98-107) Carbon Dioxide Level 24 mmol/L (21-32) Anion Gap 9 (6-14) Blood Urea Nitrogen 78 mg/dL (8-26) Creatinine 3.1 mg/dL (0.7-1.3) Estimated GFR (Cockcroft-Gault) 19.8 Glucose Level 116 mg/dL (70-99) Calcium Level 8.1 mg/dL (8.5-10.1) Test 12/31/20 07:56 12/31/20 11:39 Glucose (Fingerstick) 103 mg/dL (70-99) 134 mg/dL (70-99) Assessment and Plan Assessmemt and Plan Problems Medical Problems: (1) Anemia Status: Acute (2) CHF exacerbation Status: Acute Comment Review of Relevant I have reviewed the following items mara (where applicable) has been applied. Medications: Current Medications Medications (Trade) Dose Ordered Sig/Redd Route PRN Reason Start Time Stop Time Status Last Admin Dose Admin Sodium Chloride 500 ml @ 75 mls/hr 1X ONCE IV 12/30/20 18:00 12/31/20 00:39 DC 12/30/20 17:44 Sodium Chloride 1,000 ml @ 75 mls/hr 1X ONCE IV 12/31/20 11:30 01/01/21 00:49 12/31/20 11:27 Justifications for Admission Other Justification CHF exacerbation HOANG MAGAÑA MD December 31, 2020 12:50
--- NOTE | 2020-12-31 13:20 | NUR ---
SS following up with discharge planning. SS reviewed pt chart and discussed with pt RN. Pt is currently on room air. COVID19 negative. Pt getting one liter of fluid. Wound vac placed. Pt accepted at [facility], ; fax [phone]. SS will continue to follow for discharge planning.
--- NOTE | 2020-12-31 14:16 | PDOC ---
Provider Note Date of Service: DATE: 12/31/20 TIME: 14:07 Provider Note Provider Note Vascular S: Patient seen in room. Doing well. He has no complaints. Wound care team has changed his dressing, reports it was bleeding too much to place wound VAC today. The patient's blood flow was evaluated and he does have 2-vessel runoff to the left lower extremity. This was found to be adequate to proceed with debridement. O: Vital signs stable, afebrile Awake, alert, oriented, in no apparent distress Respirations nonlabored, room air Left foot dressing assessed, and clean and dry and intact without signs of bleeding. Toes are warm with cap refill 3 seconds. Right foot A/P: POD#1 of left heel debridement for Atherosclerosis with gangrene of the left heel. Pt is doing well post operatively. Angiogram 12/27 showed adequate two-vessel runoff to foot (PT occluded chronically). No further arterial intervention indicated at this time. Wound care team was unable to place wound VAC today due to bleeding. Wound is stable this afternoon. We have discussed with RAHEEM Corcoran nurse practitioner at [facility]. If the patient is otherwise stable for discharge he can go back to [facility] and [facility] will assess on Sunday to place wound VAC. He is okay for discharge from our standpoint with continued wound VAC therapy when able to place and follow-up at the wound care center. He will also need to continue antibiotics per infectious disease. Justicifation of Admission Dx: Justifications for Admission: Justification of Admission Dx: Yes ROSALBA AARON December 31, 2020 14:16
[2020-12-31 15:01] VITALS: BP 118/54
--- NOTE | 2020-12-31 16:01 | PDOC ---
CARDIOLOGY PROGRESS NOTE SUBJECTIVE: No new events. No chest pain No new dyspnea. OBJECTIVE: Vital Signs/I&O: Vital Signs Date Time Temp Pulse Resp B/P (MAP) Pulse Ox O2 Delivery O2 Flow Rate FiO2 12/31/20 15:01 97.7 65 18 118/54 (75) 96 Room Air 97.7 12/30/20 08:35 2.0 I & O 12/30/20 12/30/20 12/31/20 15:00 23:00 07:00 Intake Total 300 ml 200 ml 300 ml Output Total 360 ml 350 ml Balance -60 ml 200 ml -50 ml Objective: Normal heart tones. Lungs with decreased breath sounds. Legs with diminished pedal pulses. 1+ edema. Large obese abdomen. CURRENT MEDICATIONS: Meds reviewed. Toprol XL, hydralazine and atorvastatin. DIAGNOSTIC TESTING: Labs reviewed. Anemia stable. ASSESSMENT: 1. Acute on chronic diastolic HF 2. HTN 3. PAD 4. SSS s/p pacemaker. 5. Chronic atrial fibrillation 6. Hx of GIB 7. REBCECA on CKD PLAN: 1. Continue present meds. 2. Add asa 81mg daily, discussed with GI service. 3. Consider outpt referral for watchman. 4. Given worsening cr, defer to nephrology regarding HD versus diuresis. He only had 25 ml of contrast for his angiogram, low suspicion that this led to any REBECCA. Continue supportive care. F/u with Dr. Prince. Justicifation of Admission Dx: Justifications for Admission: Justification of Admission Dx: Yes JANNETTE GRANT MD December 31, 2020 16:01
--- NOTE | 2020-12-31 16:49 | NUR ---
Wound Care Wound Type/Assessment: Pt known to wound clinic from management of previous wounds. Follow up with pt for NPWT placement on L heel s/p debridement by Vascular surgery. Vac was not placed in OR d/t persistent bleeding. Dressing removed and wound continued to ooze blood, applied direct pressure for several minutes with no improvement. Placed several layers of collagen over bleeding areas. Post op pictures and measurements obtained. Wound bed pink and moist with well-defined margins. R heel wound slough covered with macerated margins. L great toe, buttock, and R leg healed. L leg blisters are partially intact with clear drainage. Small scab removed during cleansing of R medial ankle, pictured and measured. No other open areas noted on head to toe assessment. Jewell HASTINGS spoke with Sharmila Mistry (vascular) regarding NPWT hold d/t continued bleeding. Jewell will reevaluate on Sunday or Sunday for vac placement. Treatment Recommendations/Plan: All wounds: Apply contact layer and foams. Change every other day. Education provided: Educated to turn to prevent skin breakdown. Offloading surface/device: P500 and pillows for comfort and positioning. Recommended Referrals/Tests: NA Discharge Recommendations for dressings: Will reevaluate on 01/04
[2020-12-31 19:45] VITALS: BP 148/68
[2020-12-31] MEDS: ATORVASTATIN CALCIUM 40 MG TABLET. PO SCH (20:46)
[2020-12-31] MEDS: AMOXICILLIN/K CLAV 500/125MG TABLET. PO SCH (20:46)
[2020-12-31] MEDS: INSULIN GLARGINE SYRINGE. SQ SCH (20:52)
[2020-12-31 23:00] VITALS: BP 139/67
[2021-01-01 03:10] VITALS: BP 122/58
[2021-01-01 07:00] VITALS: BP 159/76
[2021-01-01 07:48] LABS: BASO # 0.1 x10^3/uL (0.0-0.2); BASO % 1 % (0-3); EOS # 0.5 x10^3/uL (0.0-0.7); EOS % 8 % (0-3); HEMATOCRIT 25.8 % (39.0-53.0); HEMOGLOBIN 8.3 g/dL (13.0-17.5); LYMPH # 1.3 x10^3/uL (1.0-4.8); LYMPH % 20 % (24-48); MEAN CORPUSCULAR HEMOGLOBIN 30 pg (25-35); MEAN CORPUSCULAR HGB CONC 32 g/dL (31-37); MEAN CORPUSCULAR VOLUME 92 fL (79-100); MONO # 0.5 x10^3/uL (0.0-1.1); MONO % 8 % (0-9); NEUT # 4.1 x10^3/uL (1.8-7.7); NEUT % 63 % (31-73); PLATELET COUNT 161 x10^3/uL (140-400); RED BLOOD COUNT 2.81 x10^6/uL (4.30-5.70); WHITE BLOOD COUNT 6.5 x10^3/uL (4.0-11.0)
[2021-01-01] MEDS: INSULIN LISPRO 300 UNITS/3 ML VIAL. SQ SCH ×3 (08:00→17:00)
--- NOTE | 2021-01-01 08:05 | PDOC ---
Infectious Disease Note Subjective: Subjective Patient feels better Vital Signs: Vital Signs Vital Signs Date Time Temp Pulse Resp B/P (MAP) Pulse Ox O2 Delivery O2 Flow Rate FiO2 01/01/21 03:10 97.8 73 20 122/58 (79) 94 Room Air 97.8 Physical Exam: PHYSICAL EXAM GENERAL: Alert, oriented gentleman, not in any distress. HEENT: Both pupils are round and reacting. No conjunctival lesion. No lesion in the mouth. NECK: Supple. No JVP. No lymphadenopathy. LUNGS: Clear. HEART: S1, S2 regular. Pacer site clean ABDOMEN: Soft, nontender. No organomegaly. Obeses EXTREMITIES: Edema present bilaterally l, Bilateral rooke boots in place with left heel wrapped in bandage. SKIN: Rest of skin exam is unremarkable. NEUROLOGIC: The patient is alert, awake, and appropriate. No focal neurologic deficit. Medications: Inpatient Meds: Medications reviewed. Labs: Lab Laboratory Tests Test 12/31/20 11:39 12/31/20 16:34 12/31/20 21:02 01/01/21 07:10 Glucose (Fingerstick) 134 mg/dL (70-99) 130 mg/dL (70-99) 142 mg/dL (70-99) White Blood Count 6.5 x10^3/uL (4.0-11.0) Red Blood Count 2.81 x10^6/uL (4.30-5.70) Hemoglobin 8.3 g/dL (13.0-17.5) Hematocrit 25.8 % (39.0-53.0) Mean Corpuscular Volume 92 fL (79-100) Mean Corpuscular Hemoglobin 30 pg (25-35) Mean Corpuscular Hemoglobin Concent 32 g/dL (31-37) Red Cell Distribution Width 18.0 % (11.5-14.5) Platelet Count 161 x10^3/uL (140-400) Neutrophils (%) (Auto) 63 % (31-73) Lymphocytes (%) (Auto) 20 % (24-48) Monocytes (%) (Auto) 8 % (0-9) Eosinophils (%) (Auto) 8 % (0-3) Basophils (%) (Auto) 1 % (0-3) Neutrophils # (Auto) 4.1 x10^3/uL (1.8-7.7) Lymphocytes # (Auto) 1.3 x10^3/uL (1.0-4.8) Monocytes # (Auto) 0.5 x10^3/uL (0.0-1.1) Eosinophils # (Auto) 0.5 x10^3/uL (0.0-0.7) Basophils # (Auto) 0.1 x10^3/uL (0.0-0.2) Test 01/01/21 07:39 Glucose (Fingerstick) 110 mg/dL (70-99) Objective: Assessment: 1. Left calcaneal black eschar. MRI neg for osteo R heel wound - Cellulitis is better 12/30 s/p Left heel excisional debridement subcutaneous tissue and skin 2. Peripheral arterial disease. 3. Left big toe ulcer. 4. Obesity. 5. Diabetes. 6. Hypertension. 7. Congestive heart failure. 8. Renal insufficiency. 9. Sulfa allergy Plan: Plan of Care Continue Augmentin 12/25 and Zyvox 12/25 cont off load Wound care per wound team AMADOR ROSA MD January 01, 2021 08:05
[2021-01-01 08:09] LABS: CREATININE 3.4 mg/dL (0.7-1.3); GFR 17.8; POTASSIUM 4.9 mmol/L (3.5-5.1)
[2021-01-01] MEDS: METOPROLOL SUCC 24HR ER 25 MG TAB.ER.24H. PO SCH (08:43)
[2021-01-01] MEDS: ASPIRIN ENTERIC COATED 81 MG TABLET.DR. PO SCH (08:43)
[2021-01-01] MEDS: FAMOTIDINE 20 MG TABLET. PO SCH (08:43)
[2021-01-01] MEDS: SENNOSIDES 8.6 MG TABLET PO PRN (08:44)
[2021-01-01] MEDS: hydrALAZINE 25 MG TABLET PO SCH ×3 (08:45→21:49)
[2021-01-01] MEDS: LINEZOLID 600 MG TABLET PO SCH ×2 (08:45→21:50)
[2021-01-01] MEDS: ASCORBIC ACID 500 MG TABLET PO SCH ×2 (08:45→21:49)
[2021-01-01] MEDS: AMOXICILLIN/K CLAV 500/125MG TABLET. PO SCH ×2 (08:45→21:48)
[2021-01-01] MEDS: SERTRALINE 50 MG TABLET. PO SCH (08:45)
[2021-01-01] MEDS: FERROUS SULFATE 325 MG TABLET. PO SCH ×2 (08:46→17:23)
[2021-01-01] MEDS: LACTOBACILLUS RHAMNOSUS GG 1 CAPSULE. PO SCH ×2 (08:46→21:48)
[2021-01-01] MEDS: POTASSIUM CHLORIDE 20 MEQ TABLET.ER. PO SCH (08:47)
[2021-01-01] MEDS: NYSTATIN TOPICAL POWDER 15GM BOTTLE. TP SCH ×2 (08:48→21:56)
--- NOTE | 2021-01-01 08:57 | PDOC ---
[employer] PROGRESS NOTE Date of Service DOS: DATE: 01/01/21 TIME: 08:55 Chief Complaint Chief Complaint Acute volume overload Acute on chronic CHF exacerbation Hypokalemia History of chronic kidney disease Normocytic anemia, possible chronic GI blood loss with EGD showing antral gastric ulcer Left lower extremity wound ulcer with dry gangrene Morbid obesity, OHS, suspect ROBB Severe protein malnutrition History of diabetes mellitus type 2 History of peripheral vascular disease History of atrial fibrillation History of bradycardia status post pacemaker placement History of peripheral vascular disease Hypertension Dyslipidemia Admit to medicine for further management Pending MRI of lower extremity today Appreciate vascular surgery recommendationwe will obtain MRI to determine level of possible amputation ID consulted IV Lasix drip started Strict I's and O's Echocardiogram from 07/16/2020 - normal left ventricular systolic function, EF 55 to 60%. No regional wall motion abnormalities noted, valvular aortic stenosis. Moderate tricuspid regurgitation with PAP 68 mmHg. Nephrology consult Cardiology consult Trend hemoglobin if less than 7 then transfuse 1 unit Eliquis for DVT prophylaxis Pepcid GI prophylaxis ADA diet Full code Discussed with RN and SW Disposition inpatient management as above Surrogate decision maker is Phuong Mathis History of Present Illness History of Present Illness 01/01/2021 Afebrile, currently breathing on room air. Creatinine increased to 3.4 today, despite gentle hydration. Will need to discuss with nephrology. Will continue gentle hydration and close monitoring of kidney function. Echocardiogram from 07/16/2020 showed normal left ventricular systolic function, ejection fraction 55-60%; no regional wall motion abnormality, mildmoderate valvular aortic stenosis, mild much regurgitation, moderate tricuspid regurgitation with PAP 68 mmHg. Continue p.o. Augmentin and Zyvox for left calcaneal heel cellulitis. 12/31/2020 Afebrile, no acute events overnight. Wound care is addressing his heels this morning. Plan to have wound VAC placed prior to discharge. BUN 78, creatinine 3.1 today. Due to concerns of worsening renal function and concerns for lack of appropriate follow-up at [facility], will hold discharge today until kidney function can be addressed by nephrology, likely with gentle hydration and close monitoring of kidney function. These methods are being taken to attempt to avoid the need for renal replacement therapy in the future. Discussed with patient and , and they are agreeable to this plan. 12/30/2020 Afebrile, no new complaints today. Had left heel ulcer debridement today. I believe plan is to have wound VAC placed tomorrow. Continue antibiotics, per ID. He will need usp once stable to discharge. Continue p.o. Lasix; continue gentle hydration and monitor kidney function. Creatinine 2.8, eGFR 22.3. 12/29/2020 Afebrile, breathing on room air. Plan is for elective debridement of the left heel ulcer tomorrow. Continue Augmentin and Zyvox, per ID. 12/28/2020 Afebrile, denies shortness of breath. Abdominal aortogram yesterday showed no significant aortoiliac disease bilaterally, isolated left posterior tibial artery occlusion with adequate two-vessel runoff to the distal foot and calcaneal area. Overall the patient is felt to have adequate runoff to the foot for further intervention with debridement of the left heel ulcer. I believe the plan is for elective debridement of left heel ulcer tomorrow. Discussed with RN. 12/27/2020 Afebrile, currently on room air. Off Lasix drip, currently Lasix 40 mg twice daily. Net positive fluid balance overnight, 510mL. Continue p.o. Augmentin and Zyvox. Aortogram pending today. 12/26/2020 No acute events overnight. Patient seen and examined bedside. -2.5 L output in the urine in the past 24 hours. No complaints from the patient. Pending aortogram with LLE runoff with vascular surgery. Follow-up 12/24/2020 Patient was seen and examined in room today. Awaiting plan from vascular/cardio on possible PCI/angio of LLE. Case discussed with RN and case management. Chart and specialist notes reviewed. 12/23/2020 No acute events overnight. Patient seen and examined bedside. Pedal edema has improved total of -2.3 L of urine output. Low potassium today will replace IV and p.o. Creatinine has also improved. Pending MRI versus CT of left lower extremity. Patient's chart, labs, images were reviewed and discussed with RN 12/22/2020 No acute events overnight patient seen and examined bedside. No significant weight loss with Lasix drip. Will defer further fluid offloading with cardiology. Pending MRI and further vascular surgery recommendations for lower extremity foot ulcer. Patient's chart, labs, images were reviewed and discussed with RN 12/21/2020 No acute events overnight. Patient has adequate urine output and feels less fluid overload. Documented -580 cc. Patient's chart, labs, images were reviewed and discussed with RN 75 year old male who was sent here from [facility] for evaluation due to bilateral lower extremity swelling, worsening renal function. He has history of CHF, history of chronic renal failure. Patient was sent here by the [employer] there today for evaluation of bilateral lower extremity swelling and increased renal function test. Patient denies any chest pain, denies any cough or fever. Patient does have trouble breathing with exertion. Patient says they told him to come here to be admitted so they can do colonoscopy because he has been anemic as well. Patient denies any rectal bleeding. His weight today is 147 kg Upon chart review patient was seen in November 04 09/12/2020 for GI bleed.. Eliquis was actually restarted on 11/09/2020. And also had a pacemaker placed on 11/09/2020 and tolerated procedure well. Patient also does follow-up with Dr. Chau with nephrology and his baseline creatinine appears to be between 1.8-2.0. Vitals/I&O Vitals/I&O: Vital Signs Date Time Temp Pulse Resp B/P (MAP) Pulse Ox O2 Delivery O2 Flow Rate FiO2 01/01/21 08:45 70 159/76 01/01/21 07:00 97.4 20 95 Room Air 97.4 I & O 12/31/20 12/31/20 01/01/21 15:00 23:00 07:00 Intake Total 540 ml 400 ml 380 ml Output Total 650 ml 200 ml Balance 540 ml -250 ml 180 ml Physical Exam Physical Exam: GENERAL: Alert, oriented gentleman, not in any distress. HEENT: Both pupils are round and reacting. No conjunctival lesion. No lesion in the mouth. NECK: Supple. No JVP. No lymphadenopathy. LUNGS: Clear. HEART: S1, S2 regular. Pacer site clean ABDOMEN: Soft, nontender. No organomegaly. Obeses EXTREMITIES: Edema present bilaterally l, Bilateral rooke boots in place with left heel wrapped in bandage. SKIN: Rest of skin exam is unremarkable. NEUROLOGIC: The patient is alert, awake, and appropriate. No focal neurologic deficit. General: Alert, Oriented X3, Cooperative, No acute distress Heart: Other (2/6 sysotlic murmur, IRRR- tele AFIB. int V pacing ) Lungs: Clear, Other Abdomen: Soft Extremities: Other (2-3+ bilateral LE edema, anasarca ) Skin: No significant lesion Labs Labs: Laboratory Tests Test 12/31/20 11:39 12/31/20 16:34 12/31/20 21:02 01/01/21 07:10 Glucose (Fingerstick) 134 mg/dL (70-99) 130 mg/dL (70-99) 142 mg/dL (70-99) White Blood Count 6.5 x10^3/uL (4.0-11.0) Red Blood Count 2.81 x10^6/uL (4.30-5.70) Hemoglobin 8.3 g/dL (13.0-17.5) Hematocrit 25.8 % (39.0-53.0) Mean Corpuscular Volume 92 fL (79-100) Mean Corpuscular Hemoglobin 30 pg (25-35) Mean Corpuscular Hemoglobin Concent 32 g/dL (31-37) Red Cell Distribution Width 18.0 % (11.5-14.5) Platelet Count 161 x10^3/uL (140-400) Neutrophils (%) (Auto) 63 % (31-73) Lymphocytes (%) (Auto) 20 % (24-48) Monocytes (%) (Auto) 8 % (0-9) Eosinophils (%) (Auto) 8 % (0-3) Basophils (%) (Auto) 1 % (0-3) Neutrophils # (Auto) 4.1 x10^3/uL (1.8-7.7) Lymphocytes # (Auto) 1.3 x10^3/uL (1.0-4.8) Monocytes # (Auto) 0.5 x10^3/uL (0.0-1.1) Eosinophils # (Auto) 0.5 x10^3/uL (0.0-0.7) Basophils # (Auto) 0.1 x10^3/uL (0.0-0.2) Sodium Level 141 mmol/L (136-145) Potassium Level 4.9 mmol/L (3.5-5.1) Chloride Level 107 mmol/L (98-107) Carbon Dioxide Level 23 mmol/L (21-32) Anion Gap 11 (6-14) Blood Urea Nitrogen 78 mg/dL (8-26) Creatinine 3.4 mg/dL (0.7-1.3) Estimated GFR (Cockcroft-Gault) 17.8 Glucose Level 99 mg/dL (70-99) Calcium Level 8.0 mg/dL (8.5-10.1) Test 01/01/21 07:39 Glucose (Fingerstick) 110 mg/dL (70-99) Assessment and Plan Assessmemt and Plan Problems Medical Problems: (1) Anemia Status: Acute (2) CHF exacerbation Status: Acute Comment Review of Relevant I have reviewed the following items mara (where applicable) has been applied. Medications: Current Medications Medications (Trade) Dose Ordered Sig/Redd Route PRN Reason Start Time Stop Time Status Last Admin Dose Admin Amoxicillin/ Clavulanate Potassium (Augmentin 500/ 125mg) 1 tab BID PO 12/31/20 21:00 01/01/21 08:45 Sodium Chloride 1,000 ml @ 75 mls/hr 1X ONCE IV 12/31/20 11:30 01/01/21 00:49 DC 12/31/20 11:27 Aspirin (Ecotrin) 81 mg [id number] PO 01/01/21 08:00 01/01/21 08:43 Justifications for Admission Other Justification CHF exacerbation HOANG MAGAÑA MD January 01, 2021 08:57
[2021-01-01 11:00] VITALS: BP 126/58
--- NOTE | 2021-01-01 11:37 | PDOC ---
DATE OF SERVICE DATE: 01/01/21 TIME: 11:34 SUBJECTIVE ROS sleeping comfortably, No concerns mentioned to me by nursing Currently on room air. OBJECTIVE Vital Signs Vital Signs Date Time Temp Pulse Resp B/P (MAP) Pulse Ox O2 Delivery O2 Flow Rate FiO2 01/01/21 11:00 97.7 69 20 126/58 (80) 95 Room Air 97.7 01/01/21 08:00 2.0 I & 0 Intake and Output 01/01/21 07:00 Intake Total 1320 ml Output Total 850 ml Balance 470 ml Intake Oral 1320 ml Output Urine Total 850 ml # Bowel Movements 3 PHYSICAL EXAM Physical Exam General: NAD HEENT: Atraumatic, OM moist Neck supple Lungs: Clear to auscultation Heart: Bradycardic, ESM aortic) Abdomen: Soft, NT Extremities: Bilat LE edema 2-3 + a Neuro: grossly normal Psych/Mental Status: Mood NL lowery + , No cva or SP tenderness Skin No rash DIAGNOSIS/ASSESSMENT Assessment & Plan REBECCA on CKD - Cardiorenal ,did improved to baseline , Cr increased again probably 2/2 over diuresis, worsening renal function, continue gentle hydration IVF, Lasix held since 12/30(pm dose) , UOP some improvement . If No improvement in renal function will need to start dialysis over the weekend, will need access, Re-eval in the morning . Supportive care Strict I/O, Daily accurate weight CKD stage 3B/ 4 - Follows with Dr. Roca at [facility] , baseline Cr per [facility] records prior to previous admission 1.8-2.0 but 2.3 to 2.5 since REBECCA recently in November 2020 HypoKalemia - stable, replace as indicated Hx of Acute blood loss anemia secondary to GIB. s/p cauterization of bleeding antral ulcer by GI team and PRBC in November . Hgb this admission low as well - defer to GI Renal calculus - RK- Possible intrarenal stones. LK Possible intrarenal stones to include a 13 mm focus of increased echogenicity at the upper pole.No e/o obstruction reported . Pt denies any past history Worsening LE edema- Bilat LE and anasarca- Wt up compared to his recent admission . off Lasix gtt , currently on Lasix PO BID ,Cardiology managing Left heel wound with dry gangrene and 1st toe ulcer- s/p CO2 angiograph on 12/28 Acute on chronic diastolic CHF; Echo 07/25 with preserved LV systolic function Anemia with h/o GIB with cauterization of bleeding antral ulcer CAD; s/p PCI/RHEA to LAD in 2019. clinically stable, CP free. PAD s/p past orbital atherectomy/[employer] to right posterior tibial artery. Permanent AFIB; rate controlled on BB SSS; s/p PPM ([employer]) Hypertension; controlled COMMENT/RELEVANT DATA Meds Current Medications Medications (Trade) Dose Ordered Sig/Redd Start Time Stop Time Status Last Admin Dose Admin Acetaminophen (Tylenol) 650 mg PRN Q4HRS PRN 12/20/20 21:45 12/20/20 23:02 650 MG Amoxicillin/ Clavulanate Potassium (Augmentin 500/ 125mg) 1 tab BID 12/31/20 21:00 01/01/21 08:45 1 TAB Amoxicillin/ Clavulanate Potassium (Augmentin 875/ 125mg) 1 tab BID 12/25/20 09:00 12/31/20 08:43 DC 12/31/20 08:29 1 TAB Apixaban (Eliquis) 2.5 mg BID 12/20/20 22:00 12/21/20 13:36 DC 12/21/20 09:00 2.5 MG Ascorbic Acid (Vitamin C) 500 mg BID 12/20/20 22:00 01/01/21 08:45 500 MG Aspirin (Ecotrin) 81 mg DAILYWBKFT 01/01/21 08:00 01/01/21 08:43 81 MG Atorvastatin Calcium (Lipitor) 40 mg HS 12/20/20 22:00 12/31/20 20:46 40 MG Buspirone HCl (Buspar) 10 mg PRN DAILY PRN 12/20/20 21:45 Cefazolin Sodium/ Dextrose 50 ml @ 100 mls/hr 1X ONCE 12/30/20 08:00 12/30/20 08:29 DC 12/30/20 07:20 100 MLS/HR Dextrose (Dextrose 50%-Water Syringe) 12.5 gm PRN Q15MIN PRN 12/20/20 21:45 Docusate Sodium (Colace) 100 mg PRN DAILY PRN 12/20/20 21:45 Famotidine (Pepcid) 20 mg DAILY 12/21/20 09:00 01/01/21 08:43 20 MG Fentanyl Citrate (Fentanyl 2ml Vial) 50 mcg PRN Q5MIN PRN 12/30/20 06:00 12/31/20 05:59 DC Ferrous Sulfate (Feosol) 325 mg BIDWMEALS 12/24/20 17:00 01/01/21 08:46 325 MG Ferrous Sulfate (Iron Oral Solution) 300 mg BIDWMEALS 12/22/20 17:00 12/24/20 11:08 DC 12/24/20 08:54 300 MG Furosemide (Lasix) 40 mg BID94 12/26/20 10:30 12/30/20 11:38 DC 12/30/20 08:58 40 MG Furosemide 100 mg/ Sodium Chloride 100 ml @ 0 mls/hr CONT PRN 12/21/20 11:30 12/26/20 10:28 DC 12/26/20 10:06 10 MLS/HR Heparin Sodium (Porcine) (Heparin Sodium) 2,500 unit 1X ONCE 12/27/20 12:15 12/27/20 12:19 DC 12/27/20 13:08 5,500 UNIT Heparin Sodium/ Sodium Chloride (HEPARIN for ARTERIAL LINE FLUSH) 1,000 unit 1X ONCE 12/27/20 12:15 12/27/20 12:19 DC 12/27/20 13:04 1,000 UNIT Hydralazine HCl (Apresoline) 25 mg TID 12/21/20 09:00 01/01/21 08:45 25 MG Hydromorphone HCl (Dilaudid) 0.5 mg PRN Q10MIN PRN 12/30/20 06:00 12/31/20 05:59 DC Insulin Glargine (Lantus Syringe) 15 unit QHS 12/20/20 22:00 12/31/20 20:52 15 UNIT Insulin Human Lispro (HumaLOG) 0-7 UNITS TIDWMEALS 12/21/20 08:00 Iodixanol (Visipaque 320) 100 ml 1X ONCE 12/27/20 12:15 12/27/20 12:19 DC 12/27/20 13:04 30 ML Lactobacillus Rhamnosus (Culturelle) 1 cap BID 12/26/20 21:00 01/01/21 08:46 1 CAP Lidocaine HCl (Lidocaine 1% 20ml Vial) 20 ml STK-MED ONCE 12/30/20 07:50 12/30/20 19:07 DC Lidocaine HCl (Lidocaine Pf 2% Vial) 5 ml STK-MED ONCE 12/30/20 06:36 12/30/20 19:06 DC Linezolid (Zyvox) 600 mg BID 12/25/20 09:00 01/01/21 08:45 600 MG Metoprolol Succinate (Toprol Xl) 25 mg DAILY 12/21/20 09:00 01/01/21 08:43 25 MG Midazolam HCl (Versed) 5 mg 1X ONCE 12/27/20 12:15 12/27/20 12:19 DC 12/27/20 13:05 1 MG Morphine Sulfate (Morphine Sulfate) 1 mg PRN Q10MIN PRN 12/30/20 06:00 12/31/20 05:59 DC Nystatin (Nystop) 1 luna BID 12/20/20 22:00 01/01/21 08:48 1 LUNA Ondansetron HCl (Zofran) 4 mg PRN Q6HRS PRN 12/20/20 21:45 12/31/20 08:35 4 MG Polyethylene Glycol (miraLAX PACKET) 17 gm PRN DAILY PRN 12/22/20 12:00 Potassium Chloride (Klor-Con) 40 meq DAILY 12/24/20 09:00 01/01/21 08:47 40 MEQ Prochlorperazine Edisylate (Compazine) 5 mg PACU PRN PRN 12/30/20 06:00 12/31/20 05:59 DC Propofol (Diprivan) 200 mg STK-MED ONCE 12/30/20 07:56 12/30/20 19:08 DC Ringer's Solution 1,000 ml @ 30 mls/hr Q24H 12/30/20 06:00 12/30/20 17:59 DC 12/30/20 07:05 30 MLS/HR Sennosides (Senna) 17.2 mg PRN BID PRN 12/20/20 21:45 01/01/21 08:44 17.2 MG Sertraline HCl (Zoloft) 50 mg DAILY 12/21/20 09:00 01/01/21 08:45 50 MG Sodium Chloride 1,000 ml @ 75 mls/hr 1X ONCE 12/31/20 11:30 01/01/21 00:49 DC 12/31/20 11:27 75 MLS/HR Lab Laboratory Tests Test 12/31/20 11:39 12/31/20 16:34 12/31/20 21:02 01/01/21 07:10 Glucose (Fingerstick) 134 mg/dL (70-99) 130 mg/dL (70-99) 142 mg/dL (70-99) White Blood Count 6.5 x10^3/uL (4.0-11.0) Red Blood Count 2.81 x10^6/uL (4.30-5.70) Hemoglobin 8.3 g/dL (13.0-17.5) Hematocrit 25.8 % (39.0-53.0) Mean Corpuscular Volume 92 fL (79-100) Mean Corpuscular Hemoglobin 30 pg (25-35) Mean Corpuscular Hemoglobin Concent 32 g/dL (31-37) Red Cell Distribution Width 18.0 % (11.5-14.5) Platelet Count 161 x10^3/uL (140-400) Neutrophils (%) (Auto) 63 % (31-73) Lymphocytes (%) (Auto) 20 % (24-48) Monocytes (%) (Auto) 8 % (0-9) Eosinophils (%) (Auto) 8 % (0-3) Basophils (%) (Auto) 1 % (0-3) Neutrophils # (Auto) 4.1 x10^3/uL (1.8-7.7) Lymphocytes # (Auto) 1.3 x10^3/uL (1.0-4.8) Monocytes # (Auto) 0.5 x10^3/uL (0.0-1.1) Eosinophils # (Auto) 0.5 x10^3/uL (0.0-0.7) Basophils # (Auto) 0.1 x10^3/uL (0.0-0.2) Sodium Level 141 mmol/L (136-145) Potassium Level 4.9 mmol/L (3.5-5.1) Chloride Level 107 mmol/L (98-107) Carbon Dioxide Level 23 mmol/L (21-32) Anion Gap 11 (6-14) Blood Urea Nitrogen 78 mg/dL (8-26) Creatinine 3.4 mg/dL (0.7-1.3) Estimated GFR (Cockcroft-Gault) 17.8 Glucose Level 99 mg/dL (70-99) Calcium Level 8.0 mg/dL (8.5-10.1) Test 01/01/21 07:39 Glucose (Fingerstick) 110 mg/dL (70-99) Results All relevant outside records, renal labs, imaging studies, telemetry/EKG's were reviewed. Justicifation of Admission Dx: Justifications for Admission: Justification of Admission Dx: Yes BEATRIZ IBARRA MD January 01, 2021 11:37
[2021-01-01] MEDS: IV NORMAL SALINE 1000ML BAG 1,000 ML IV SCH ×2 (12:00→12:26)
[2021-01-01] MEDS: ONDANSETRON PF 4 MG/2 ML VIAL. IVP PRN ×2 (12:51→21:50)
[2021-01-01 15:00] VITALS: BP 134/60
[2021-01-01 19:41] VITALS: BP 143/60
[2021-01-01] MEDS: ATORVASTATIN CALCIUM 40 MG TABLET. PO SCH (21:49)
[2021-01-01] MEDS: INSULIN GLARGINE SYRINGE. SQ SCH (21:57)
[2021-01-01 23:06] VITALS: BP 128/59
[2021-01-02] MEDS: IV NORMAL SALINE 1000ML BAG 1,000 ML IV SCH ×2 (01:11→15:12)
[2021-01-02 03:28] VITALS: BP 139/61
[2021-01-02 07:00] VITALS: BP 141/71
[2021-01-02 07:47] LABS: BASO # 0.1 x10^3/uL (0.0-0.2); BASO % 1 % (0-3); EOS # 0.8 x10^3/uL (0.0-0.7); EOS % 11 % (0-3); HEMATOCRIT 26.9 % (39.0-53.0); HEMOGLOBIN 8.4 g/dL (13.0-17.5); LYMPH # 1.6 x10^3/uL (1.0-4.8); LYMPH % 23 % (24-48); MEAN CORPUSCULAR HEMOGLOBIN 29 pg (25-35); MEAN CORPUSCULAR HGB CONC 31 g/dL (31-37); MEAN CORPUSCULAR VOLUME 92 fL (79-100); MONO # 0.5 x10^3/uL (0.0-1.1); MONO % 7 % (0-9); NEUT % 58 % (31-73); PLATELET COUNT 159 x10^3/uL (140-400); RED BLOOD COUNT 2.93 x10^6/uL (4.30-5.70); RED CELL DISTRIBUTION WIDTH 18.1 % (11.5-14.5)
[2021-01-02 07:51] LABS: CALCIUM 8.3 mg/dL (8.5-10.1); CREATININE 3.5 mg/dL (0.7-1.3); GFR 17.3; POTASSIUM 5.1 mmol/L (3.5-5.1)
[2021-01-02] MEDS: ASPIRIN ENTERIC COATED 81 MG TABLET.DR. PO SCH (08:00)
[2021-01-02] MEDS: INSULIN LISPRO 300 UNITS/3 ML VIAL. SQ SCH ×3 (08:00→17:00)
[2021-01-02] MEDS: FERROUS SULFATE 325 MG TABLET. PO SCH ×2 (08:00→17:44)
--- NOTE | 2021-01-02 08:23 | PDOC ---
Infectious Disease Note Subjective: Subjective Patient continues to have nausea No fever, diarrhea or abdominal pain Vital Signs: Vital Signs Vital Signs Date Time Temp Pulse Resp B/P (MAP) Pulse Ox O2 Delivery O2 Flow Rate FiO2 01/02/21 07:00 97.4 72 16 141/71 (94) 95 Room Air 97.4 01/01/21 08:00 2.0 Physical Exam: PHYSICAL EXAM GENERAL: Alert, oriented gentleman, not in any distress. HEENT: Both pupils are round and reacting. No conjunctival lesion. No lesion in the mouth. NECK: Supple. No JVP. No lymphadenopathy. LUNGS: Clear. HEART: S1, S2 regular. Pacer site clean ABDOMEN: Soft, nontender. No organomegaly. Obeses EXTREMITIES: Edema present bilaterally l, Bilateral rooke boots in place with left heel wrapped in bandage. SKIN: Rest of skin exam is unremarkable. NEUROLOGIC: The patient is alert, awake, and appropriate. No focal neurologic deficit. Medications: Inpatient Meds: Medications reviewed. Labs: Lab Laboratory Tests Test 01/01/21 11:46 01/01/21 16:40 01/01/21 21:04 01/02/21 07:20 Glucose (Fingerstick) 142 mg/dL (70-99) 138 mg/dL (70-99) 139 mg/dL (70-99) White Blood Count 7.0 x10^3/uL (4.0-11.0) Red Blood Count 2.93 x10^6/uL (4.30-5.70) Hemoglobin 8.4 g/dL (13.0-17.5) Hematocrit 26.9 % (39.0-53.0) Mean Corpuscular Volume 92 fL (79-100) Mean Corpuscular Hemoglobin 29 pg (25-35) Mean Corpuscular Hemoglobin Concent 31 g/dL (31-37) Red Cell Distribution Width 18.1 % (11.5-14.5) Platelet Count 159 x10^3/uL (140-400) Neutrophils (%) (Auto) 58 % (31-73) Lymphocytes (%) (Auto) 23 % (24-48) Monocytes (%) (Auto) 7 % (0-9) Eosinophils (%) (Auto) 11 % (0-3) Basophils (%) (Auto) 1 % (0-3) Neutrophils # (Auto) 4.0 x10^3/uL (1.8-7.7) Lymphocytes # (Auto) 1.6 x10^3/uL (1.0-4.8) Monocytes # (Auto) 0.5 x10^3/uL (0.0-1.1) Eosinophils # (Auto) 0.8 x10^3/uL (0.0-0.7) Basophils # (Auto) 0.1 x10^3/uL (0.0-0.2) Sodium Level 140 mmol/L (136-145) Potassium Level 5.1 mmol/L (3.5-5.1) Chloride Level 108 mmol/L (98-107) Carbon Dioxide Level 23 mmol/L (21-32) Anion Gap 9 (6-14) Blood Urea Nitrogen 78 mg/dL (8-26) Creatinine 3.5 mg/dL (0.7-1.3) Estimated GFR (Cockcroft-Gault) 17.3 Glucose Level 86 mg/dL (70-99) Calcium Level 8.3 mg/dL (8.5-10.1) Test 01/02/21 07:36 Glucose (Fingerstick) 86 mg/dL (70-99) Objective: Assessment: 1. Left calcaneal black eschar. MRI neg for osteo R heel wound - Cellulitis is better 12/30 s/p Left heel excisional debridement subcutaneous tissue and skin 2. Peripheral arterial disease. 3. Left big toe ulcer. 4. Obesity. 5. Diabetes. 6. Hypertension. 7. Congestive heart failure. 8. Renal insufficiency. 9. Sulfa allergy 10. Nausea could be drug-induced Plan: Plan of Care Continue Augmentin Change Zyvox to IV cont off load Wound care per wound team Discussed with nursing staff AMADOR ROSA MD January 02, 2021 08:23
--- NOTE | 2021-01-02 08:33 | PDOC ---
[employer] PROGRESS NOTE Date of Service DOS: DATE: 01/02/21 TIME: 08:30 Chief Complaint Chief Complaint Acute volume overload Acute on chronic CHF exacerbation Hypokalemia History of chronic kidney disease Normocytic anemia, possible chronic GI blood loss with EGD showing antral gastric ulcer Left lower extremity wound ulcer with dry gangrene Morbid obesity, OHS, suspect ROBB Severe protein malnutrition History of diabetes mellitus type 2 History of peripheral vascular disease History of atrial fibrillation History of bradycardia status post pacemaker placement History of peripheral vascular disease Hypertension Dyslipidemia Admit to medicine for further management Pending MRI of lower extremity today Appreciate vascular surgery recommendationwe will obtain MRI to determine level of possible amputation ID consulted IV Lasix drip started Strict I's and O's Echocardiogram from 07/16/2020 - normal left ventricular systolic function, EF 55 to 60%. No regional wall motion abnormalities noted, valvular aortic stenosis. Moderate tricuspid regurgitation with PAP 68 mmHg. Nephrology consult Cardiology consult Trend hemoglobin if less than 7 then transfuse 1 unit Eliquis for DVT prophylaxis Pepcid GI prophylaxis ADA diet Full code Discussed with RN and SW Disposition inpatient management as above Surrogate decision maker is Phuong Mathis History of Present Illness History of Present Illness 01/02/2021 Afebrile, no acute events overnight. Kidney function slightly worse today despite gentle hydration, CR 3.5 (eGFR 17.3). Per nephrology, if no improvement in renal function may need to initiate HD. Continue IV fluids. Continue oral antibiotics for left calcaneal heel cellulitis. 01/01/2021 Afebrile, currently breathing on room air. Creatinine increased to 3.4 today, despite gentle hydration. Will need to discuss with nephrology. Will continue gentle hydration and close monitoring of kidney function. Echocardiogram from 07/16/2020 showed normal left ventricular systolic function, ejection fraction 55-60%; no regional wall motion abnormality, mildmoderate valvular aortic stenosis, mild much regurgitation, moderate tricuspid regurgitation with PAP 68 mmHg. Continue p.o. Augmentin and Zyvox for left calcaneal heel cellulitis. 12/31/2020 Afebrile, no acute events overnight. Wound care is addressing his heels this morning. Plan to have wound VAC placed prior to discharge. BUN 78, creatinine 3.1 today. Due to concerns of worsening renal function and concerns for lack of appropriate follow-up at [facility], will hold discharge today until kidney function can be addressed by nephrology, likely with gentle hydration and close monitoring of kidney function. These methods are being taken to attempt to avoid the need for renal replacement therapy in the future. Discussed with patient and , and they are agreeable to this plan. 12/30/2020 Afebrile, no new complaints today. Had left heel ulcer debridement today. I believe plan is to have wound VAC placed tomorrow. Continue antibiotics, per ID. He will need senior living once stable to discharge. Continue p.o. Lasix; continue gentle hydration and monitor kidney function. Creatinine 2.8, eGFR 22.3. 12/29/2020 Afebrile, breathing on room air. Plan is for elective debridement of the left heel ulcer tomorrow. Continue Augmentin and Zyvox, per ID. 12/28/2020 Afebrile, denies shortness of breath. Abdominal aortogram yesterday showed no significant aortoiliac disease bilaterally, isolated left posterior tibial artery occlusion with adequate two-vessel runoff to the distal foot and calcaneal area. Overall the patient is felt to have adequate runoff to the foot for further intervention with debridement of the left heel ulcer. I believe the plan is for elective debridement of left heel ulcer tomorrow. Discussed with RN. 12/27/2020 Afebrile, currently on room air. Off Lasix drip, currently Lasix 40 mg twice daily. Net positive fluid balance overnight, 510mL. Continue p.o. Augmentin and Zyvox. Aortogram pending today. 12/26/2020 No acute events overnight. Patient seen and examined bedside. -2.5 L output in the urine in the past 24 hours. No complaints from the patient. Pending aortogram with LLE runoff with vascular surgery. Follow-up 12/24/2020 Patient was seen and examined in room today. Awaiting plan from vascular/cardio on possible PCI/angio of LLE. Case discussed with RN and case management. Chart and specialist notes reviewed. 12/23/2020 No acute events overnight. Patient seen and examined bedside. Pedal edema has improved total of -2.3 L of urine output. Low potassium today will replace IV and p.o. Creatinine has also improved. Pending MRI versus CT of left lower extremity. Patient's chart, labs, images were reviewed and discussed with RN 12/22/2020 No acute events overnight patient seen and examined bedside. No significant weight loss with Lasix drip. Will defer further fluid offloading with cardiology. Pending MRI and further vascular surgery recommendations for lower extremity foot ulcer. Patient's chart, labs, images were reviewed and discussed with RN 12/21/2020 No acute events overnight. Patient has adequate urine output and feels less fluid overload. Documented -580 cc. Patient's chart, labs, images were reviewed and discussed with RN 75 year old male who was sent here from [facility] for evaluation due to bilateral lower extremity swelling, worsening renal function. He has history of CHF, history of chronic renal failure. Patient was sent here by the [facility] there today for evaluation of bilateral lower extremity swelling and increased renal function test. Patient denies any chest pain, denies any cough or fever. Patient does have trouble breathing with exertion. Patient says they told him to come here to be admitted so they can do colonoscopy because he has been anemic as well. Patient denies any rectal bleeding. His weight today is 147 kg Upon chart review patient was seen in November 04 09/12/2020 for GI bleed.. Eliquis w as actually restarted on 11/09/2020. And also had a pacemaker placed on 11/09/2020 and tolerated procedure well. Patient also does follow-up with Dr. Chau with nephrology and his baseline creatinine appears to be between 1.8-2.0. Vitals/I&O Vitals/I&O: Vital Signs Date Time Temp Pulse Resp B/P (MAP) Pulse Ox O2 Delivery O2 Flow Rate FiO2 01/02/21 07:00 97.4 72 16 141/71 (94) 95 Room Air 97.4 01/01/21 08:00 2.0 I & O 01/01/21 01/01/21 01/02/21 15:00 23:00 07:00 Intake Total 180 ml 1060 ml 1350 ml Output Total 300 ml 300 ml Balance 180 ml 760 ml 1050 ml Physical Exam Physical Exam: GENERAL: Alert, oriented gentleman, not in any distress. HEENT: Both pupils are round and reacting. No conjunctival lesion. No lesion in the mouth. NECK: Supple. No JVP. No lymphadenopathy. LUNGS: Clear. HEART: S1, S2 regular. Pacer site clean ABDOMEN: Soft, nontender. No organomegaly. Obeses EXTREMITIES: Edema present bilaterally l, Bilateral rooke boots in place with left heel wrapped in bandage. SKIN: Rest of skin exam is unremarkable. NEUROLOGIC: The patient is alert, awake, and appropriate. No focal neurologic deficit. General: Alert, Oriented X3, Cooperative, No acute distress Heart: Other (2/6 sysotlic murmur, IRRR- tele AFIB. int V pacing ) Lungs: Clear, Other Abdomen: Soft Extremities: Other (2-3+ bilateral LE edema, anasarca ) Skin: No significant lesion Labs Labs: Laboratory Tests Test 01/01/21 11:46 01/01/21 16:40 01/01/21 21:04 01/02/21 07:20 Glucose (Fingerstick) 142 mg/dL (70-99) 138 mg/dL (70-99) 139 mg/dL (70-99) White Blood Count 7.0 x10^3/uL (4.0-11.0) Red Blood Count 2.93 x10^6/uL (4.30-5.70) Hemoglobin 8.4 g/dL (13.0-17.5) Hematocrit 26.9 % (39.0-53.0) Mean Corpuscular Volume 92 fL (79-100) Mean Corpuscular Hemoglobin 29 pg (25-35) Mean Corpuscular Hemoglobin Concent 31 g/dL (31-37) Red Cell Distribution Width 18.1 % (11.5-14.5) Platelet Count 159 x10^3/uL (140-400) Neutrophils (%) (Auto) 58 % (31-73) Lymphocytes (%) (Auto) 23 % (24-48) Monocytes (%) (Auto) 7 % (0-9) Eosinophils (%) (Auto) 11 % (0-3) Basophils (%) (Auto) 1 % (0-3) Neutrophils # (Auto) 4.0 x10^3/uL (1.8-7.7) Lymphocytes # (Auto) 1.6 x10^3/uL (1.0-4.8) Monocytes # (Auto) 0.5 x10^3/uL (0.0-1.1) Eosinophils # (Auto) 0.8 x10^3/uL (0.0-0.7) Basophils # (Auto) 0.1 x10^3/uL (0.0-0.2) Sodium Level 140 mmol/L (136-145) Potassium Level 5.1 mmol/L (3.5-5.1) Chloride Level 108 mmol/L (98-107) Carbon Dioxide Level 23 mmol/L (21-32) Anion Gap 9 (6-14) Blood Urea Nitrogen 78 mg/dL (8-26) Creatinine 3.5 mg/dL (0.7-1.3) Estimated GFR (Cockcroft-Gault) 17.3 Glucose Level 86 mg/dL (70-99) Calcium Level 8.3 mg/dL (8.5-10.1) Test 01/02/21 07:36 Glucose (Fingerstick) 86 mg/dL (70-99) Assessment and Plan Assessmemt and Plan Problems Medical Problems: (1) Anemia Status: Acute (2) CHF exacerbation Status: Acute Comment Review of Relevant I have reviewed the following items mara (where applicable) has been applied. Medications: Current Medications Medications (Trade) Dose Ordered Sig/Redd Route PRN Reason Start Time Stop Time Status Last Admin Dose Admin Sodium Chloride 1,000 ml @ 75 mls/hr [id number] IV 01/01/21 12:00 01/02/21 01:11 Justifications for Admission Other Justification CHF exacerbation HOANG MAGAÑA MD January 02, 2021 08:33
[2021-01-02] MEDS: AMOXICILLIN/K CLAV 500/125MG TABLET. PO SCH ×2 (08:43→21:29)
[2021-01-02] MEDS: LACTOBACILLUS RHAMNOSUS GG 1 CAPSULE. PO SCH ×2 (08:43→21:30)
[2021-01-02] MEDS: LINEZOLID 600 MG TABLET PO SCH (08:43)
[2021-01-02] MEDS: POTASSIUM CHLORIDE 20 MEQ TABLET.ER. PO SCH (08:50)
[2021-01-02] MEDS: NYSTATIN TOPICAL POWDER 15GM BOTTLE. TP SCH ×2 (08:53→21:31)
[2021-01-02] MEDS: hydrALAZINE 25 MG TABLET PO SCH ×3 (08:55→21:30)
[2021-01-02] MEDS: METOPROLOL SUCC 24HR ER 25 MG TAB.ER.24H. PO SCH (08:57)
[2021-01-02] MEDS: ASCORBIC ACID 500 MG TABLET PO SCH ×2 (08:57→21:30)
[2021-01-02] MEDS: SERTRALINE 50 MG TABLET. PO SCH (08:58)
[2021-01-02] MEDS: FAMOTIDINE 20 MG TABLET. PO SCH (08:58)
--- NOTE | 2021-01-02 10:29 | PDOC ---
DATE OF SERVICE DATE: 01/02/21 TIME: 10:27 SUBJECTIVE ROS Denies any SOB, on room air. OBJECTIVE Vital Signs Vital Signs Date Time Temp Pulse Resp B/P (MAP) Pulse Ox O2 Delivery O2 Flow Rate FiO2 01/02/21 08:57 72 141/71 01/02/21 08:00 Room Air 2.0 01/02/21 07:00 97.4 16 95 97.4 I & 0 Intake and Output 01/02/21 07:00 Intake Total 2590 ml Output Total 600 ml Balance 1990 ml Intake Oral 1590 ml IV Total 1000 ml Output Urine Total 600 ml # Bowel Movements 4 PHYSICAL EXAM Physical Exam General: NAD HEENT: Atraumatic, OM moist Neck supple Lungs: Clear to auscultation Heart: Bradycardic, ESM aortic) Abdomen: Soft, NT Extremities: Bilat LE edema 2-3 + a Neuro: grossly normal Psych/Mental Status: Mood NL lowery + , No cva or SP tenderness Skin No rash DIAGNOSIS/ASSESSMENT Assessment & Plan REBECCA on CKD - Cardiorenal ,did improved to baseline , Cr worsening probably 2/2 over diuresis continue gentle hydration IVF, Lasix held since 12/30(pm dose) , Possibility of dialysis ,will need access, Re-eval in the morning . Supportive care Strict I/O, Daily accurate weight CKD stage 3B/ 4 - Follows with Dr. Roca at [facility] , baseline Cr per [facility] records prior to previous admission 1.8-2.0 but 2.3 to 2.5 since REBECCA recently in November 2020 HypoKalemia - stable, replace as indicated Hx of Acute blood loss anemia secondary to GIB. s/p cauterization of bleeding antral ulcer by GI team and PRBC in November . Hgb this admission low as well - defer to GI Renal calculus - RK- Possible intrarenal stones. LK Possible intrarenal stones to include a 13 mm focus of increased echogenicity at the upper pole.No e/o obstruction reported . Pt denies any past history Worsening LE edema- Bilat LE and anasarca- Wt up compared to his recent admission . off Lasix gtt , currently on Lasix PO BID ,Cardiology managing Left heel wound with dry gangrene and 1st toe ulcer- s/p CO2 angiograph on 12/28 Acute on chronic diastolic CHF; Echo 07/25 with preserved LV systolic function Anemia with h/o GIB with cauterization of bleeding antral ulcer CAD; s/p PCI/RHEA to LAD in 2019. clinically stable, CP free. PAD s/p past orbital atherectomy/LOOM STARTER to right posterior tibial artery. Permanent AFIB; rate controlled on BB COMMENT/RELEVANT DATA Meds Current Medications Medications (Trade) Dose Ordered Sig/Redd Start Time Stop Time Status Last Admin Dose Admin Acetaminophen (Tylenol) 650 mg PRN Q4HRS PRN 12/20/20 21:45 12/20/20 23:02 650 MG Amoxicillin/ Clavulanate Potassium (Augmentin 500/ 125mg) 1 tab BID 12/31/20 21:00 01/02/21 08:43 1 TAB Amoxicillin/ Clavulanate Potassium (Augmentin 875/ 125mg) 1 tab BID 12/25/20 09:00 12/31/20 08:43 DC 12/31/20 08:29 1 TAB Apixaban (Eliquis) 2.5 mg BID 12/20/20 22:00 12/21/20 13:36 DC 12/21/20 09:00 2.5 MG Ascorbic Acid (Vitamin C) 500 mg BID 12/20/20 22:00 01/02/21 08:57 500 MG Aspirin (Ecotrin) 81 mg [id number] 01/01/21 08:00 01/02/21 08:00 81 MG Atorvastatin Calcium (Lipitor) 40 mg HS 12/20/20 22:00 01/01/21 21:49 40 MG Buspirone HCl (Buspar) 10 mg PRN DAILY PRN 12/20/20 21:45 Cefazolin Sodium/ Dextrose 50 ml @ 100 mls/hr 1X ONCE 12/30/20 08:00 12/30/20 08:29 DC 12/30/20 07:20 100 MLS/HR Dextrose (Dextrose 50%-Water Syringe) 12.5 gm PRN Q15MIN PRN 12/20/20 21:45 Docusate Sodium (Colace) 100 mg PRN DAILY PRN 12/20/20 21:45 Famotidine (Pepcid) 20 mg DAILY 12/21/20 09:00 01/02/21 08:58 20 MG Fentanyl Citrate (Fentanyl 2ml Vial) 50 mcg PRN Q5MIN PRN 12/30/20 06:00 12/31/20 05:59 DC Ferrous Sulfate (Feosol) 325 mg BIDWMEALS 12/24/20 17:00 01/02/21 08:00 325 MG Ferrous Sulfate (Iron Oral Solution) 300 mg BIDWMEALS 12/22/20 17:00 12/24/20 11:08 DC 12/24/20 08:54 300 MG Furosemide (Lasix) 40 mg [id number] 12/26/20 10:30 12/30/20 11:38 DC 12/30/20 08:58 40 MG Furosemide 100 mg/ Sodium Chloride 100 ml @ 0 mls/hr CONT PRN 12/21/20 11:30 12/26/20 10:28 DC 12/26/20 10:06 10 MLS/HR Heparin Sodium (Porcine) (Heparin Sodium) 2,500 unit 1X ONCE 12/27/20 12:15 12/27/20 12:19 DC 12/27/20 13:08 5,500 UNIT Heparin Sodium/ Sodium Chloride (HEPARIN for ARTERIAL LINE FLUSH) 1,000 unit 1X ONCE 12/27/20 12:15 12/27/20 12:19 DC 12/27/20 13:04 1,000 UNIT Hydralazine HCl (Apresoline) 25 mg TID 12/21/20 09:00 01/02/21 08:55 25 MG Hydromorphone HCl (Dilaudid) 0.5 mg PRN Q10MIN PRN 12/30/20 06:00 12/31/20 05:59 DC Insulin Glargine (Lantus Syringe) 15 unit QHS 12/20/20 22:00 01/01/21 21:57 15 UNIT Insulin Human Lispro (HumaLOG) 0-7 UNITS TIDWMEALS 12/21/20 08:00 Iodixanol (Visipaque 320) 100 ml 1X ONCE 12/27/20 12:15 12/27/20 12:19 DC 12/27/20 13:04 30 ML Lactobacillus Rhamnosus (Culturelle) 1 cap BID 12/26/20 21:00 01/02/21 08:43 1 CAP Lidocaine HCl (Lidocaine 1% 20ml Vial) 20 ml STK-MED ONCE 12/30/20 07:50 12/30/20 19:07 DC Lidocaine HCl (Lidocaine Pf 2% Vial) 5 ml STK-MED ONCE 12/30/20 06:36 12/30/20 19:06 DC Linezolid (Zyvox) 600 mg BID 12/25/20 09:00 01/02/21 09:10 DC 01/02/21 08:43 600 MG Linezolid/Dextrose 300 ml @ 300 mls/hr Q12HR 01/02/21 21:00 Metoprolol Succinate (Toprol Xl) 25 mg DAILY 12/21/20 09:00 01/02/21 08:57 25 MG Midazolam HCl (Versed) 5 mg 1X ONCE 12/27/20 12:15 12/27/20 12:19 DC 12/27/20 13:05 1 MG Morphine Sulfate (Morphine Sulfate) 1 mg PRN Q10MIN PRN 12/30/20 06:00 12/31/20 05:59 DC Nystatin (Nystop) 1 luna BID 12/20/20 22:00 01/02/21 08:53 1 LUNA Ondansetron HCl (Zofran) 4 mg PRN Q6HRS PRN 12/20/20 21:45 01/01/21 21:50 4 MG Polyethylene Glycol (miraLAX PACKET) 17 gm PRN DAILY PRN 12/22/20 12:00 Potassium Chloride (Klor-Con) 40 meq DAILY 12/24/20 09:00 01/01/21 08:47 40 MEQ Prochlorperazine Edisylate (Compazine) 5 mg PACU PRN PRN 12/30/20 06:00 12/31/20 05:59 DC Propofol (Diprivan) 200 mg STK-MED ONCE 12/30/20 07:56 12/30/20 19:08 DC Ringer's Solution 1,000 ml @ 30 mls/hr Q24H 12/30/20 06:00 12/30/20 17:59 DC 12/30/20 07:05 30 MLS/HR Sennosides (Senna) 17.2 mg PRN BID PRN 12/20/20 21:45 01/01/21 08:44 17.2 MG Sertraline HCl (Zoloft) 50 mg DAILY 12/21/20 09:00 01/02/21 08:58 50 MG Sodium Chloride 1,000 ml @ 75 mls/hr [id number] 01/01/21 12:00 01/02/21 01:11 75 MLS/HR Lab Laboratory Tests Test 01/01/21 11:46 01/01/21 16:40 01/01/21 21:04 01/02/21 07:20 Glucose (Fingerstick) 142 mg/dL (70-99) 138 mg/dL (70-99) 139 mg/dL (70-99) White Blood Count 7.0 x10^3/uL (4.0-11.0) Red Blood Count 2.93 x10^6/uL (4.30-5.70) Hemoglobin 8.4 g/dL (13.0-17.5) Hematocrit 26.9 % (39.0-53.0) Mean Corpuscular Volume 92 fL (79-100) Mean Corpuscular Hemoglobin 29 pg (25-35) Mean Corpuscular Hemoglobin Concent 31 g/dL (31-37) Red Cell Distribution Width 18.1 % (11.5-14.5) Platelet Count 159 x10^3/uL (140-400) Neutrophils (%) (Auto) 58 % (31-73) Lymphocytes (%) (Auto) 23 % (24-48) Monocytes (%) (Auto) 7 % (0-9) Eosinophils (%) (Auto) 11 % (0-3) Basophils (%) (Auto) 1 % (0-3) Neutrophils # (Auto) 4.0 x10^3/uL (1.8-7.7) Lymphocytes # (Auto) 1.6 x10^3/uL (1.0-4.8) Monocytes # (Auto) 0.5 x10^3/uL (0.0-1.1) Eosinophils # (Auto) 0.8 x10^3/uL (0.0-0.7) Basophils # (Auto) 0.1 x10^3/uL (0.0-0.2) Sodium Level 140 mmol/L (136-145) Potassium Level 5.1 mmol/L (3.5-5.1) Chloride Level 108 mmol/L (98-107) Carbon Dioxide Level 23 mmol/L (21-32) Anion Gap 9 (6-14) Blood Urea Nitrogen 78 mg/dL (8-26) Creatinine 3.5 mg/dL (0.7-1.3) Estimated GFR (Cockcroft-Gault) 17.3 Glucose Level 86 mg/dL (70-99) Calcium Level 8.3 mg/dL (8.5-10.1) Test 01/02/21 07:36 Glucose (Fingerstick) 86 mg/dL (70-99) Results All relevant outside records, renal labs, imaging studies, telemetry/EKG's were reviewed. Justicifation of Admission Dx: Justifications for Admission: Justification of Admission Dx: Yes BEATRIZ IBARRA MD January 02, 2021 10:29
[2021-01-02 11:00] VITALS: BP 101/53
[2021-01-02 15:00] VITALS: BP 120/61
[2021-01-02 19:37] VITALS: BP 132/53
[2021-01-02] MEDS: ATORVASTATIN CALCIUM 40 MG TABLET. PO SCH (21:31)
[2021-01-02] MEDS: INSULIN GLARGINE SYRINGE. SQ SCH (21:42)
[2021-01-02 22:20] VITALS: BP 117/53
[2021-01-03 03:42] VITALS: BP 139/73
[2021-01-03] MEDS: IV NORMAL SALINE 1000ML BAG 1,000 ML IV SCH (05:20)
[2021-01-03 07:00] VITALS: BP 124/59
[2021-01-03] MEDS: INSULIN LISPRO 300 UNITS/3 ML VIAL. SQ SCH ×3 (08:00→17:00)
[2021-01-03 08:13] LABS: BASO # 0.1 x10^3/uL (0.0-0.2); BASO % 1 % (0-3); EOS # 0.8 x10^3/uL (0.0-0.7); EOS % 11 % (0-3); HEMATOCRIT 27.3 % (39.0-53.0); HEMOGLOBIN 8.7 g/dL (13.0-17.5); LYMPH # 1.8 x10^3/uL (1.0-4.8); LYMPH % 23 % (24-48); MEAN CORPUSCULAR HEMOGLOBIN 29 pg (25-35); MEAN CORPUSCULAR HGB CONC 32 g/dL (31-37); MEAN CORPUSCULAR VOLUME 92 fL (79-100); MONO # 0.6 x10^3/uL (0.0-1.1); MONO % 7 % (0-9); NEUT # 4.7 x10^3/uL (1.8-7.7); NEUT % 59 % (31-73); PLATELET COUNT 161 x10^3/uL (140-400); RED BLOOD COUNT 2.97 x10^6/uL (4.30-5.70); RED CELL DISTRIBUTION WIDTH 17.8 % (11.5-14.5); WHITE BLOOD COUNT 7.9 x10^3/uL (4.0-11.0)
[2021-01-03] MEDS: FERROUS SULFATE 325 MG TABLET. PO SCH ×2 (08:25→18:16)
[2021-01-03] MEDS: LACTOBACILLUS RHAMNOSUS GG 1 CAPSULE. PO SCH ×2 (08:25→21:39)
[2021-01-03] MEDS: SERTRALINE 50 MG TABLET. PO SCH (08:26)
[2021-01-03] MEDS: ASCORBIC ACID 500 MG TABLET PO SCH ×2 (08:26→21:40)
[2021-01-03] MEDS: hydrALAZINE 25 MG TABLET PO SCH ×3 (08:26→21:40)
[2021-01-03] MEDS: FAMOTIDINE 20 MG TABLET. PO SCH (08:26)
[2021-01-03] MEDS: METOPROLOL SUCC 24HR ER 25 MG TAB.ER.24H. PO SCH (08:26)
[2021-01-03] MEDS: AMOXICILLIN/K CLAV 500/125MG TABLET. PO SCH ×2 (08:26→21:39)
[2021-01-03] MEDS: ASPIRIN ENTERIC COATED 81 MG TABLET.DR. PO SCH (08:26)
[2021-01-03] MEDS: NYSTATIN TOPICAL POWDER 15GM BOTTLE. TP SCH ×2 (08:28→21:00)
--- NOTE | 2021-01-03 08:28 | PDOC ---
Infectious Disease Note Subjective: Subjective Patient complains of cough ,denies any more nausea No fever, diarrhea or abdominal pain Vital Signs: Vital Signs Vital Signs Date Time Temp Pulse Resp B/P (MAP) Pulse Ox O2 Delivery O2 Flow Rate FiO2 01/03/21 07:00 97.7 62 18 124/59 (80) 95 Room Air 97.7 01/02/21 08:00 2.0 Physical Exam: PHYSICAL EXAM GENERAL: Alert, oriented gentleman, not in any distress. HEENT: Both pupils are round and reacting. No conjunctival lesion. No lesion in the mouth. NECK: Supple. No JVP. No lymphadenopathy. LUNGS: Clear. HEART: S1, S2 regular. Pacer site clean ABDOMEN: Soft, nontender. No organomegaly. Obeses EXTREMITIES: Edema present bilaterally l, Bilateral rooke boots in place with left heel wrapped in bandage. SKIN: Rest of skin exam is unremarkable. NEUROLOGIC: The patient is alert, awake, and appropriate. No focal neurologic deficit. Medications: Inpatient Meds: Medications reviewed. Labs: Lab Laboratory Tests Test 01/02/21 12:05 01/02/21 16:46 01/02/21 20:32 01/03/21 06:45 Glucose (Fingerstick) 102 mg/dL (70-99) 86 mg/dL (70-99) 99 mg/dL (70-99) White Blood Count 7.9 x10^3/uL (4.0-11.0) Red Blood Count 2.97 x10^6/uL (4.30-5.70) Hemoglobin 8.7 g/dL (13.0-17.5) Hematocrit 27.3 % (39.0-53.0) Mean Corpuscular Volume 92 fL (79-100) Mean Corpuscular Hemoglobin 29 pg (25-35) Mean Corpuscular Hemoglobin Concent 32 g/dL (31-37) Red Cell Distribution Width 17.8 % (11.5-14.5) Platelet Count 161 x10^3/uL (140-400) Neutrophils (%) (Auto) 59 % (31-73) Lymphocytes (%) (Auto) 23 % (24-48) Monocytes (%) (Auto) 7 % (0-9) Eosinophils (%) (Auto) 11 % (0-3) Basophils (%) (Auto) 1 % (0-3) Neutrophils # (Auto) 4.7 x10^3/uL (1.8-7.7) Lymphocytes # (Auto) 1.8 x10^3/uL (1.0-4.8) Monocytes # (Auto) 0.6 x10^3/uL (0.0-1.1) Eosinophils # (Auto) 0.8 x10^3/uL (0.0-0.7) Basophils # (Auto) 0.1 x10^3/uL (0.0-0.2) Test 01/03/21 07:38 01/03/21 08:04 Glucose (Fingerstick) 59 mg/dL (70-99) 76 mg/dL (70-99) Objective: Assessment: 1. Left calcaneal black eschar. MRI neg for osteo R heel wound - Cellulitis is better 12/30 s/p Left heel excisional debridement subcutaneous tissue and skin 2. Peripheral arterial disease. 3. Left big toe ulcer. 4. Obesity. 5. Diabetes. 6. Hypertension. 7. Congestive heart failure. 8. Renal insufficiency. 9. Sulfa allergy 10. Nausea could be drug-induced Plan: Plan of Care Continue Augmentin Zyvox IV cont off load Wound care per wound team Wound pics noted in chart Discussed with nursing staff AMADOR ROSA MD January 03, 2021 08:28
[2021-01-03 08:34] LABS: CALCIUM 8.4 mg/dL (8.5-10.1); CREATININE 3.7 mg/dL (0.7-1.3); GFR 16.2; POTASSIUM 4.9 mmol/L (3.5-5.1)
[2021-01-03 11:00] VITALS: BP 127/61
[2021-01-03] MEDS: ONDANSETRON PF 4 MG/2 ML VIAL. IVP PRN ×2 (11:01→20:28)
--- NOTE | 2021-01-03 11:27 | PDOC ---
[employer] PROGRESS NOTE Date of Service DOS: DATE: 01/03/21 TIME: 11:26 Chief Complaint Chief Complaint Acute volume overload Acute on chronic CHF exacerbation Hypokalemia History of chronic kidney disease Normocytic anemia, possible chronic GI blood loss with EGD showing antral gastric ulcer Left lower extremity wound ulcer with dry gangrene Morbid obesity, OHS, suspect ROBB Severe protein malnutrition History of diabetes mellitus type 2 History of peripheral vascular disease History of atrial fibrillation History of bradycardia status post pacemaker placement History of peripheral vascular disease Hypertension Dyslipidemia Admit to medicine for further management Pending MRI of lower extremity today Appreciate vascular surgery recommendationwe will obtain MRI to determine level of possible amputation ID consulted IV Lasix drip started Strict I's and O's Echocardiogram from 07/16/2020 - normal left ventricular systolic function, EF 55 to 60%. No regional wall motion abnormalities noted, valvular aortic stenosis. Moderate tricuspid regurgitation with PAP 68 mmHg. Nephrology consult Cardiology consult Trend hemoglobin if less than 7 then transfuse 1 unit Eliquis for DVT prophylaxis Pepcid GI prophylaxis ADA diet Full code Discussed with RN and SW Disposition inpatient management as above Surrogate decision maker is Phuong Mathis History of Present Illness History of Present Illness 01/03/2021 No acute events overnight. Patient seen and examined bedside. Creatinine increased to 3.7. Pending further nephrology recommendations for possible HD. No urine output per nursing. Patient's chart, labs, images were reviewed and discussed with RN 01/02/2021 Afebrile, no acute events overnight. Kidney function slightly worse today despite gentle hydration, CR 3.5 (eGFR 17.3). Per nephrology, if no improvement in renal function may need to initiate HD. Continue IV fluids. Continue oral antibiotics for left calcaneal heel cellulitis. 01/01/2021 Afebrile, currently breathing on room air. Creatinine increased to 3.4 today, despite gentle hydration. Will need to discuss with nephrology. Will continue gentle hydration and close monitoring of kidney function. Echocardiogram from 07/16/2020 showed normal left ventricular systolic function, ejection fraction 55-60%; no regional wall motion abnormality, mildmoderate valvular aortic stenosis, mild much regurgitation, moderate tricuspid regurgitation with PAP 68 mmHg. Continue p.o. Augmentin and Zyvox for left calcaneal heel cellulitis. 12/31/2020 Afebrile, no acute events overnight. Wound care is addressing his heels this morning. Plan to have wound VAC placed prior to discharge. BUN 78, creatinine 3.1 today. Due to concerns of worsening renal function and concerns for lack of appropriate follow-up at [facility], will hold discharge today until kidney function can be addressed by nephrology, likely with gentle hydration and close monitoring of kidney function. These methods are being taken to attempt to avoid the need for renal replacement therapy in the future. Discussed with patient and , and they are agreeable to this plan. 12/30/2020 Afebrile, no new complaints today. Had left heel ulcer debridement today. I believe plan is to have wound VAC placed tomorrow. Continue antibiotics, per ID. He will need longterm once stable to discharge. Continue p.o. Lasix; continue gentle hydration and monitor kidney function. Creatinine 2.8, eGFR 22.3. 12/29/2020 Afebrile, breathing on room air. Plan is for elective debridement of the left heel ulcer tomorrow. Continue Augmentin and Zyvox, per ID. 12/28/2020 Afebrile, denies shortness of breath. Abdominal aortogram yesterday showed no significant aortoiliac disease bilaterally, isolated left posterior tibial artery occlusion with adequate two-vessel runoff to the distal foot and calcaneal area. Overall the patient is felt to have adequate runoff to the foot for further intervention with debridement of the left heel ulcer. I believe the plan is for elective debridement of left heel ulcer tomorrow. Discussed with RN. 12/27/2020 Afebrile, currently on room air. Off Lasix drip, currently Lasix 40 mg twice daily. Net positive fluid balance overnight, 510mL. Continue p.o. Augmentin and Zyvox. Aortogram pending today. 12/26/2020 No acute events overnight. Patient seen and examined bedside. -2.5 L output in the urine in the past 24 hours. No complaints from the patient. Pending aortogram with LLE runoff with vascular surgery. Follow-up 12/24/2020 Patient was seen and examined in room today. Awaiting plan from vascular/cardio on possible PCI/angio of LLE. Case discussed with RN and case management. Chart and specialist notes reviewed. 12/23/2020 No acute events overnight. Patient seen and examined bedside. Pedal edema has improved total of -2.3 L of urine output. Low potassium today will replace IV and p.o. Creatinine has also improved. Pending MRI versus CT of left lower extremity. Patient's chart, labs, images were reviewed and discussed with RN 12/22/2020 No acute events overnight patient seen and examined bedside. No significant weight loss with Lasix drip. Will defer further fluid offloading with cardiology. Pending MRI and further vascular surgery recommendations for lower extremity foot ulcer. Patient's chart, labs, images were reviewed and discussed with RN 12/21/2020 No acute events overnight. Patient has adequate urine output and feels less fluid overload. Documented -580 cc. Patient's chart, labs, images were reviewed and discussed with RN 75 year old male who was sent here from [facility] for evaluation due to bilateral lower extremity swelling, worsening renal function. He has history of CHF, history of chronic renal failure. Patient was sent here by the ASSISTANT SERVICE MANAGER there today for evaluation of bilateral lower extremity swelling and increased renal function test. Patient denies any chest pain, denies any cough or fever. Patient does have trouble breathing with exertion. Patient says they told him to come here to be admitted so they can do colonoscopy because he has been anemic as well. Patient denies any rectal bleeding. His weight today is 147 kg Upon chart review patient was seen in November 04 09/12/2020 for GI bleed.. Eliquis was actually restarted on 11/09/2020. And also had a pacemaker placed on 11/09/2020 and tolerated procedure well. Patient also does follow-up with Dr. Chau with nephrology and his baseline creatinine appears to be between 1.8-2.0. Vitals/I&O Vitals/I&O: Vital Signs Date Time Temp Pulse Resp B/P (MAP) Pulse Ox O2 Delivery O2 Flow Rate FiO2 01/03/21 08:26 62 124/59 01/03/21 08:00 Room Air 2.0 01/03/21 07:00 97.7 18 95 97.7 I & O 01/02/21 01/02/21 01/03/21 15:00 23:00 07:00 Intake Total 1110 ml 720 ml 1000 ml Output Total 200 ml 150 ml Balance 1110 ml 520 ml 850 ml Physical Exam Physical Exam: GENERAL: Alert, oriented gentleman, not in any distress. HEENT: Both pupils are round and reacting. No conjunctival lesion. No lesion in the mouth. NECK: Supple. No JVP. No lymphadenopathy. LUNGS: Clear. HEART: S1, S2 regular. Pacer site clean ABDOMEN: Soft, nontender. No organomegaly. Obeses EXTREMITIES: Edema present bilaterally l, Bilateral rooke boots in place with left heel wrapped in bandage. SKIN: Rest of skin exam is unremarkable. NEUROLOGIC: The patient is alert, awake, and appropriate. No focal neurologic deficit. General: Alert, Oriented X3, Cooperative, No acute distress Heart: Other (2/6 sysotlic murmur, IRRR- tele AFIB. int V pacing ) Lungs: Clear, Other Abdomen: Soft Extremities: Other (2-3+ bilateral LE edema, anasarca ) Skin: No significant lesion Labs Labs: Laboratory Tests Test 01/02/21 12:05 01/02/21 16:46 01/02/21 20:32 01/03/21 06:45 Glucose (Fingerstick) 102 mg/dL (70-99) 86 mg/dL (70-99) 99 mg/dL (70-99) White Blood Count 7.9 x10^3/uL (4.0-11.0) Red Blood Count 2.97 x10^6/uL (4.30-5.70) Hemoglobin 8.7 g/dL (13.0-17.5) Hematocrit 27.3 % (39.0-53.0) Mean Corpuscular Volume 92 fL (79-100) Mean Corpuscular Hemoglobin 29 pg (25-35) Mean Corpuscular Hemoglobin Concent 32 g/dL (31-37) Red Cell Distribution Width 17.8 % (11.5-14.5) Platelet Count 161 x10^3/uL (140-400) Neutrophils (%) (Auto) 59 % (31-73) Lymphocytes (%) (Auto) 23 % (24-48) Monocytes (%) (Auto) 7 % (0-9) Eosinophils (%) (Auto) 11 % (0-3) Basophils (%) (Auto) 1 % (0-3) Neutrophils # (Auto) 4.7 x10^3/uL (1.8-7.7) Lymphocytes # (Auto) 1.8 x10^3/uL (1.0-4.8) Monocytes # (Auto) 0.6 x10^3/uL (0.0-1.1) Eosinophils # (Auto) 0.8 x10^3/uL (0.0-0.7) Basophils # (Auto) 0.1 x10^3/uL (0.0-0.2) Sodium Level 141 mmol/L (136-145) Potassium Level 4.9 mmol/L (3.5-5.1) Chloride Level 109 mmol/L (98-107) Carbon Dioxide Level 22 mmol/L (21-32) Anion Gap 10 (6-14) Blood Urea Nitrogen 76 mg/dL (8-26) Creatinine 3.7 mg/dL (0.7-1.3) Estimated GFR (Cockcroft-Gault) 16.2 Glucose Level 62 mg/dL (70-99) Calcium Level 8.4 mg/dL (8.5-10.1) Test 01/03/21 07:38 01/03/21 08:04 Glucose (Fingerstick) 59 mg/dL (70-99) 76 mg/dL (70-99) Assessment and Plan Assessmemt and Plan Problems Medical Problems: (1) Anemia Status: Acute (2) CHF exacerbation Status: Acute Comment Review of Relevant I have reviewed the following items mara (where applicable) has been applied. Medications: Current Medications Medications (Trade) Dose Ordered Sig/Redd Route PRN Reason Start Time Stop Time Status Last Admin Dose Admin Linezolid/Dextrose 300 ml @ 300 mls/hr Q12HR IV 01/02/21 21:00 01/03/21 08:30 Justifications for Admission Other Justification CHF exacerbation KANNAN NELSON MD January 03, 2021 11:27
--- NOTE | 2021-01-03 12:52 | PDOC ---
DATE OF SERVICE DATE: 01/03/21 TIME: 12:47 SUBJECTIVE ROS Denies any SOB, on room air. OBJECTIVE Vital Signs Vital Signs Date Time Temp Pulse Resp B/P (MAP) Pulse Ox O2 Delivery O2 Flow Rate FiO2 01/03/21 11:00 97.9 68 18 127/61 (83) 95 Room Air 97.9 01/03/21 08:00 2.0 I & 0 Intake and Output 01/03/21 07:00 Intake Total 2830 ml Output Total 350 ml Balance 2480 ml Intake Oral 780 ml IV Total 1300 ml Other 750 ml Output Urine Total 350 ml # Bowel Movements 2 PHYSICAL EXAM Physical Exam General: NAD HEENT: Atraumatic, OM moist Neck supple Lungs: Clear to auscultation Heart: Bradycardic, ESM aortic) Abdomen: Soft, NT Extremities: Bilat LE edema 2-3 + a Neuro: grossly normal Psych/Mental Status: Mood NL lowery + , No cva or SP tenderness Skin No rash DIAGNOSIS/ASSESSMENT Assessment & Plan REBECCA on CKD - Probabaly new Onset ESRD- Cardiorenal ,did improved to baseline , Cr worsening probably 2/2 over diuresis Lasix held since 12/30(pm dose) ,No r esponse to IVF , UOP decreased Currently No emergenmt indication for dialysis, will start tomorrow, Permacath tomorrow (if able otherwise temp HDC- defer to IR) , NPO after midnight, if on any Blood thinners- defer to cardiology Supportive care Strict I/O, Daily accurate weight . SW for OP chair time (his returned goods repairer is from [facility] ) CKD stage 3B/ 4 - Follows with Dr. Roca at [facility] , baseline Cr per [facility] records prior to previous admission 1.8-2.0 but 2.3 to 2.5 since REBECCA recently in November 2020 HypoKalemia - stable, replace as indicated Hx of Acute blood loss anemia secondary to GIB. s/p cauterization of bleeding antral ulcer by GI team and PRBC in November . Hgb this admission low as well - defer to GI Renal calculus - RK- Possible intrarenal stones. LK Possible intrarenal stones to include a 13 mm focus of increased echogenicity at the upper pole.No e/o obstruction reported . Pt denies any past history Worsening LE edema- Bilat LE and anasarca- Wt up compared to his recent admission . off Lasix gtt , currently on Lasix PO BID ,Cardiology managing Left heel wound with dry gangrene and 1st toe ulcer- s/p CO2 angiograph on 12/28 Acute on chronic diastolic CHF; Echo 07/25 with preserved LV systolic function Anemia with h/o GIB with cauterization of bleeding antral ulcer CAD; s/p PCI/RHEA to LAD in 2018. clinically stable, CP free. 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 Permanent AFIB; rate controlled on BB COMMENT/RELEVANT DATA Meds Current Medications Medications (Trade) Dose Ordered Sig/Redd Start Time Stop Time Status Last Admin Dose Admin Acetaminophen (Tylenol) 650 mg PRN Q4HRS PRN 12/20/20 21:45 12/20/20 23:02 650 MG Amoxicillin/ Clavulanate Potassium (Augmentin 500/ 125mg) 1 tab BID 12/31/20 21:00 01/03/21 08:26 1 TAB Amoxicillin/ Clavulanate Potassium (Augmentin 875/ 125mg) 1 tab BID 12/25/20 09:00 12/31/20 08:43 DC 12/31/20 08:29 1 TAB Apixaban (Eliquis) 2.5 mg BID 12/20/20 22:00 12/21/20 13:36 DC 12/21/20 09:00 2.5 MG Ascorbic Acid (Vitamin C) 500 mg BID 12/20/20 22:00 01/03/21 08:26 500 MG Aspirin (Ecotrin) 81 mg [id number] 01/01/21 08:00 01/03/21 08:26 81 MG Atorvastatin Calcium (Lipitor) 40 mg HS 12/20/20 22:00 01/02/21 21:31 40 MG Buspirone HCl (Buspar) 10 mg PRN DAILY PRN 12/20/20 21:45 Cefazolin Sodium/ Dextrose 50 ml @ 100 mls/hr 1X ONCE 12/30/20 08:00 12/30/20 08:29 DC 12/30/20 07:20 100 MLS/HR Dextrose (Dextrose 50%-Water Syringe) 12.5 gm PRN Q15MIN PRN 12/20/20 21:45 Docusate Sodium (Colace) 100 mg PRN DAILY PRN 12/20/20 21:45 Famotidine (Pepcid) 20 mg DAILY 12/21/20 09:00 01/03/21 08:26 20 MG Fentanyl Citrate (Fentanyl 2ml Vial) 50 mcg PRN Q5MIN PRN 12/30/20 06:00 12/31/20 05:59 DC Ferrous Sulfate (Feosol) 325 mg BIDWMEALS 12/24/20 17:00 01/03/21 08:25 325 MG Ferrous Sulfate (Iron Oral Solution) 300 mg BIDWMEALS 12/22/20 17:00 12/24/20 11:08 DC 12/24/20 08:54 300 MG Furosemide (Lasix) 40 mg [id number] 12/26/20 10:30 12/30/20 11:38 DC 12/30/20 08:58 40 MG Furosemide 100 mg/ Sodium Chloride 100 ml @ 0 mls/hr CONT PRN 12/21/20 11:30 12/26/20 10:28 DC 12/26/20 10:06 10 MLS/HR Heparin Sodium (Porcine) (Heparin Sodium) 2,500 unit 1X ONCE 12/27/20 12:15 12/27/20 12:19 DC 12/27/20 13:08 5,500 UNIT Heparin Sodium/ Sodium Chloride (HEPARIN for ARTERIAL LINE FLUSH) 1,000 unit 1X ONCE 12/27/20 12:15 12/27/20 12:19 DC 12/27/20 13:04 1,000 UNIT Hydralazine HCl (Apresoline) 25 mg TID 12/21/20 09:00 01/03/21 08:26 25 MG Hydromorphone HCl (Dilaudid) 0.5 mg PRN Q10MIN PRN 12/30/20 06:00 12/31/20 05:59 DC Insulin Glargine (Lantus Syringe) 15 unit QHS 12/20/20 22:00 01/02/21 21:42 15 UNIT Insulin Human Lispro (HumaLOG) 0-7 UNITS TIDWMEALS 12/21/20 08:00 Iodixanol (Visipaque 320) 100 ml 1X ONCE 12/27/20 12:15 12/27/20 12:19 DC 12/27/20 13:04 30 ML Lactobacillus Rhamnosus (Culturelle) 1 cap BID 12/26/20 21:00 01/03/21 08:25 1 CAP Lidocaine HCl (Lidocaine 1% 20ml Vial) 20 ml STK-MED ONCE 12/30/20 07:50 12/30/20 19:07 DC Lidocaine HCl (Lidocaine Pf 2% Vial) 5 ml STK-MED ONCE 12/30/20 06:36 12/30/20 19:06 DC Linezolid (Zyvox) 600 mg BID 12/25/20 09:00 01/02/21 09:10 DC 01/02/21 08:43 600 MG Linezolid/Dextrose 300 ml @ 300 mls/hr Q12HR 01/02/21 21:00 01/03/21 08:30 300 MLS/HR Metoprolol Succinate (Toprol Xl) 25 mg DAILY 12/21/20 09:00 01/03/21 08:26 25 MG Midazolam HCl (Versed) 5 mg 1X ONCE 12/27/20 12:15 12/27/20 12:19 DC 12/27/20 13:05 1 MG Morphine Sulfate (Morphine Sulfate) 1 mg PRN Q10MIN PRN 12/30/20 06:00 12/31/20 05:59 DC Nystatin (Nystop) 1 luna BID 12/20/20 22:00 01/03/21 08:28 1 LUNA Ondansetron HCl (Zofran) 4 mg PRN Q6HRS PRN 12/20/20 21:45 01/03/21 11:01 4 MG Polyethylene Glycol (miraLAX PACKET) 17 gm PRN DAILY PRN 12/22/20 12:00 Potassium Chloride (Klor-Con) 40 meq DAILY 12/24/20 09:00 01/02/21 11:03 DC 01/01/21 08:47 40 MEQ Prochlorperazine Edisylate (Compazine) 5 mg PACU PRN PRN 12/30/20 06:00 12/31/20 05:59 DC Propofol (Diprivan) 200 mg STK-MED ONCE 12/30/20 07:56 12/30/20 19:08 DC Ringer's Solution 1,000 ml @ 30 mls/hr Q24H 12/30/20 06:00 12/30/20 17:59 DC 12/30/20 07:05 30 MLS/HR Sennosides (Senna) 17.2 mg PRN BID PRN 12/20/20 21:45 01/01/21 08:44 17.2 MG Sertraline HCl (Zoloft) 50 mg DAILY 12/21/20 09:00 01/03/21 08:26 50 MG Sodium Chloride 1,000 ml @ 75 mls/hr [id number] 01/01/21 12:00 01/03/21 05:20 75 MLS/HR Lab Laboratory Tests Test 01/02/21 16:46 01/02/21 20:32 01/03/21 06:45 01/03/21 07:38 Glucose (Fingerstick) 86 mg/dL (70-99) 99 mg/dL (70-99) 59 mg/dL (70-99) White Blood Count 7.9 x10^3/uL (4.0-11.0) Red Blood Count 2.97 x10^6/uL (4.30-5.70) Hemoglobin 8.7 g/dL (13.0-17.5) Hematocrit 27.3 % (39.0-53.0) Mean Corpuscular Volume 92 fL (79-100) Mean Corpuscular Hemoglobin 29 pg (25-35) Mean Corpuscular Hemoglobin Concent 32 g/dL (31-37) Red Cell Distribution Width 17.8 % (11.5-14.5) Platelet Count 161 x10^3/uL (140-400) Neutrophils (%) (Auto) 59 % (31-73) Lymphocytes (%) (Auto) 23 % (24-48) Monocytes (%) (Auto) 7 % (0-9) Eosinophils (%) (Auto) 11 % (0-3) Basophils (%) (Auto) 1 % (0-3) Neutrophils # (Auto) 4.7 x10^3/uL (1.8-7.7) Lymphocytes # (Auto) 1.8 x10^3/uL (1.0-4.8) Monocytes # (Auto) 0.6 x10^3/uL (0.0-1.1) Eosinophils # (Auto) 0.8 x10^3/uL (0.0-0.7) Basophils # (Auto) 0.1 x10^3/uL (0.0-0.2) Sodium Level 141 mmol/L (136-145) Potassium Level 4.9 mmol/L (3.5-5.1) Chloride Level 109 mmol/L (98-107) Carbon Dioxide Level 22 mmol/L (21-32) Anion Gap 10 (6-14) Blood Urea Nitrogen 76 mg/dL (8-26) Creatinine 3.7 mg/dL (0.7-1.3) Estimated GFR (Cockcroft-Gault) 16.2 Glucose Level 62 mg/dL (70-99) Calcium Level 8.4 mg/dL (8.5-10.1) Test 01/03/21 08:04 01/03/21 11:46 Glucose (Fingerstick) 76 mg/dL (70-99) 76 mg/dL (70-99) Results All relevant outside records, renal labs, imaging studies, telemetry/EKG's were reviewed. Justicifation of Admission Dx: Justifications for Admission: Justification of Admission Dx: Yes BEATRIZ IBARRA MD January 03, 2021 12:52
[2021-01-03 15:00] VITALS: BP 146/67
[2021-01-03 19:46] VITALS: BP 131/56
[2021-01-03] MEDS: ATORVASTATIN CALCIUM 40 MG TABLET. PO SCH (21:39)
[2021-01-03 22:55] VITALS: BP 131/56
[2021-01-04] MEDS: ONDANSETRON PF 4 MG/2 ML VIAL. IVP PRN ×2 (01:39→17:57)
[2021-01-04 03:24] VITALS: BP 113/55
[2021-01-04 07:14] LABS: BASO # 0.1 x10^3/uL (0.0-0.2); BASO % 0 % (0-3); EOS # 0.1 x10^3/uL (0.0-0.7); EOS % 0 % (0-3); HEMATOCRIT 25.4 % (39.0-53.0); LYMPH # 1.1 x10^3/uL (1.0-4.8); LYMPH % 8 % (24-48); MEAN CORPUSCULAR HEMOGLOBIN 29 pg (25-35); MEAN CORPUSCULAR HGB CONC 32 g/dL (31-37); MEAN CORPUSCULAR VOLUME 91 fL (79-100); MONO # 0.5 x10^3/uL (0.0-1.1); MONO % 4 % (0-9); NEUT # 12.3 x10^3/uL (1.8-7.7); NEUT % 88 % (31-73); PLATELET COUNT 126 x10^3/uL (140-400); RED BLOOD COUNT 2.78 x10^6/uL (4.30-5.70); RED CELL DISTRIBUTION WIDTH 17.7 % (11.5-14.5)
[2021-01-04 07:27] LABS: CALCIUM 8.3 mg/dL (8.5-10.1); GFR 14.8
[2021-01-04 07:28] LABS: POTASSIUM 5.3 mmol/L (3.5-5.1)
[2021-01-04 07:55] VITALS: BP 100/48
[2021-01-04] MEDS: ASPIRIN ENTERIC COATED 81 MG TABLET.DR. PO SCH ×2 (08:00→17:02)
[2021-01-04] MEDS: FERROUS SULFATE 325 MG TABLET. PO SCH ×2 (08:00→17:01)
[2021-01-04] MEDS: INSULIN LISPRO 300 UNITS/3 ML VIAL. SQ SCH ×3 (08:00→17:00)
[2021-01-04 08:37] LABS: % BANDS 6 % (0-9); % LYMPHS 6 % (24-48); % MONOS 3 % (0-10)
[2021-01-04 08:38] LABS: % BASOS 1 % (0-3); % SEGS 84 % (35-66)
[2021-01-04 08:39] LABS: PLT ESTIMATE DECREASED (ADEQUATE)
[2021-01-04 08:40] LABS: ANISOCYTOSIS SLIGHT; OVALOCYTES FEW; SCHISTOCYTES OCC; TEAR DROP CELLS OCC
[2021-01-04 08:41] LABS: ACANTHOCYTES OCC; BURR CELLS FEW
[2021-01-04] MEDS: LACTOBACILLUS RHAMNOSUS GG 1 CAPSULE. PO SCH ×2 (08:46→21:28)
[2021-01-04] MEDS: ASCORBIC ACID 500 MG TABLET PO SCH ×2 (08:46→21:28)
[2021-01-04] MEDS: hydrALAZINE 25 MG TABLET PO SCH ×3 (09:00→21:29)
--- NOTE | 2021-01-04 09:18 | PDOC ---
Infectious Disease Note Subjective: Subjective Patient without complaints No fever, nausea, vomiting, cough, shortness of breath diarrhea or abdominal pain Vital Signs: Vital Signs Vital Signs Date Time Temp Pulse Resp B/P (MAP) Pulse Ox O2 Delivery O2 Flow Rate FiO2 01/04/21 07:55 98.1 66 18 100/48 (65) 94 Room Air 98.1 01/03/21 08:00 2.0 Physical Exam: PHYSICAL EXAM GENERAL: Alert, oriented gentleman, not in any distress. HEENT: Both pupils are round and reacting. No conjunctival lesion. No lesion in the mouth. NECK: Supple. No JVP. No lymphadenopathy. LUNGS: Clear. HEART: S1, S2 regular. Pacer site clean ABDOMEN: Soft, nontender. No organomegaly. Obeses EXTREMITIES: Edema present bilaterally l, Bilateral rooke boots in place with left heel wrapped in bandage. SKIN: Rest of skin exam is unremarkable. NEUROLOGIC: The patient is alert, awake, and appropriate. No focal neurologic deficit. Medications: Inpatient Meds: Medications reviewed. Labs: Lab Laboratory Tests Test 01/03/21 11:46 01/03/21 16:43 01/03/21 21:04 01/04/21 06:30 Glucose (Fingerstick) 76 mg/dL (70-99) 61 mg/dL (70-99) 133 mg/dL (70-99) White Blood Count 14.0 x10^3/uL (4.0-11.0) Red Blood Count 2.78 x10^6/uL (4.30-5.70) Hemoglobin 8.0 g/dL (13.0-17.5) Hematocrit 25.4 % (39.0-53.0) Mean Corpuscular Volume 91 fL (79-100) Mean Corpuscular Hemoglobin 29 pg (25-35) Mean Corpuscular Hemoglobin Concent 32 g/dL (31-37) Red Cell Distribution Width 17.7 % (11.5-14.5) Platelet Count 126 x10^3/uL (140-400) Neutrophils (%) (Auto) 88 % (31-73) Lymphocytes (%) (Auto) 8 % (24-48) Monocytes (%) (Auto) 4 % (0-9) Eosinophils (%) (Auto) 0 % (0-3) Basophils (%) (Auto) 0 % (0-3) Neutrophils # (Auto) 12.3 x10^3/uL (1.8-7.7) Lymphocytes # (Auto) 1.1 x10^3/uL (1.0-4.8) Monocytes # (Auto) 0.5 x10^3/uL (0.0-1.1) Eosinophils # (Auto) 0.1 x10^3/uL (0.0-0.7) Basophils # (Auto) 0.1 x10^3/uL (0.0-0.2) Segmented Neutrophils % 84 % (35-66) Band Neutrophils % 6 % (0-9) Lymphocytes % 6 % (24-48) Monocytes % 3 % (0-10) Basophils % 1 % (0-3) Platelet Estimate Decreased (ADEQUATE) Large Platelets Few Anisocytosis Slight Tear Drop Cells Occ Ovalocytes Few Tanesha Cells Few Acanthocytes Occ Schistocytes Occ Sodium Level 139 mmol/L (136-145) Potassium Level 5.3 mmol/L (3.5-5.1) Chloride Level 108 mmol/L (98-107) Carbon Dioxide Level 22 mmol/L (21-32) Anion Gap 9 (6-14) Blood Urea Nitrogen 79 mg/dL (8-26) Creatinine 4.0 mg/dL (0.7-1.3) Estimated GFR (Cockcroft-Gault) 14.8 Glucose Level 98 mg/dL (70-99) Calcium Level 8.3 mg/dL (8.5-10.1) Test 01/04/21 07:58 Glucose (Fingerstick) 99 mg/dL (70-99) Objective: Assessment: 1. Left calcaneal black eschar. MRI neg for osteo R heel wound - Cellulitis is better 12/30 s/p Left heel excisional debridement subcutaneous tissue and skin Wound pictures reviewed, mild slough area present 2. Peripheral arterial disease. 3. Left big toe ulcer. 4. Obesity. 5. Diabetes. 6. Hypertension. 7. Congestive heart failure. 8. Renal insufficiency. 9. Sulfa allergy 10. Nausea could be drug-induced improved Thrombocytopenia Plan: Plan of Care Continue Augmentin Zyvox IV Monitor platelets closely cont off load Wound care per wound team Wound pics noted in chart Discussed with nursing staff AMADOR ROSA MD Jan 04, 2021 09:18
[2021-01-04 09:20] LABS: PROTHROMBIN TIME PATIENT 17.4 SEC (11.7-14.0)
[2021-01-04] MEDS ORDERED: LIDOCAINE 1%/EPI 1:100,000 20 ML VIAL. ONE (10:00)
[2021-01-04 10:11] VITALS: BP 134/65
--- NOTE | 2021-01-04 10:24 | PDOC ---
DATE OF SERVICE DATE: 01/04/21 TIME: 10:21 SUBJECTIVE ROS Denies any SOB, on room air. No N/V , states feeling good OBJECTIVE Vital Signs Vital Signs Date Time Temp Pulse Resp B/P (MAP) Pulse Ox O2 Delivery O2 Flow Rate FiO2 01/04/21 10:11 98.1 71 16 134/65 (88) 92 Room Air 98.1 01/03/21 08:00 2.0 I & 0 Intake and Output 01/04/21 07:00 Intake Total 1320 ml Output Total 600 ml Balance 720 ml Intake Oral 720 ml IV Total 600 ml Output Urine Total 600 ml # Bowel Movements 1 PHYSICAL EXAM Physical Exam General: NAD HEENT: Atraumatic, OM moist Neck supple Lungs: Clear to auscultation Heart: Bradycardic, ESM aortic) Abdomen: Soft, NT Extremities: Bilat LE edema 2-3 + a Neuro: grossly normal Psych/Mental Status: Mood NL lowery + , No cva or SP tenderness Skin No rash DIAGNOSIS/ASSESSMENT Assessment & Plan REBECCA on CKD vs new Onset ESRD- Cardiorenal worsening renal function Dialysis today, discussed treatment sangeetha with Dawna , awaiting Permcath placement Supportive care Strict I/O, Daily accurate weight . SW for OP chair time (his cerner analyst is from [facility] ) CKD stage 3B/ 4 - Follows with Dr. Roca at [facility] , baseline Cr per [facility] records prior to previous admission 1.8-2.0 but 2.3 to 2.5 since REBECCA recently in November 2020 HypoKalemia - stable, replace as indicated Hx of Acute blood loss anemia secondary to GIB. s/p cauterization of bleeding antral ulcer by GI team and PRBC in November . Hgb this admission low as well - defer to GI Renal calculus - RK- Possible intrarenal stones. LK Possible intrarenal stones to include a 13 mm focus of increased echogenicity at the upper pole.No e/o obstruction reported . Pt denies any past history Worsening LE edema- Bilat LE and anasarca- Wt up compared to his recent admission . off Lasix gtt , currently on Lasix PO BID ,Cardiology managing Left heel wound with dry gangrene and 1st toe ulcer- s/p CO2 angiograph on 12/28 Acute on chronic diastolic CHF; Echo 07/25 with preserved LV systolic function Anemia with h/o GIB with cauterization of bleeding antral ulcer CAD; s/p PCI/RHEA to LAD in 2019. clinically stable, CP free. 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 Permanent AFIB; rate controlled on BB COMMENT/RELEVANT DATA Meds Current Medications Medications (Trade) Dose Ordered Sig/Redd Start Time Stop Time Status Last Admin Dose Admin Acetaminophen (Tylenol) 650 mg PRN Q4HRS PRN 12/20/20 21:45 12/20/20 23:02 650 MG Amoxicillin/ Clavulanate Potassium (Augmentin 500/ 125mg) 1 tab BID 12/31/20 21:00 01/03/21 21:39 1 TAB Amoxicillin/ Clavulanate Potassium (Augmentin 875/ 125mg) 1 tab BID 12/25/20 09:00 12/31/20 08:43 DC 12/31/20 08:29 1 TAB Apixaban (Eliquis) 2.5 mg BID 12/20/20 22:00 12/21/20 13:36 DC 12/21/20 09:00 2.5 MG Ascorbic Acid (Vitamin C) 500 mg BID 12/20/20 22:00 01/03/21 21:40 500 MG Aspirin (Ecotrin) 81 mg [id number] 01/01/21 08:00 01/03/21 08:26 81 MG Atorvastatin Calcium (Lipitor) 40 mg HS 12/20/20 22:00 01/03/21 21:39 40 MG Buspirone HCl (Buspar) 10 mg PRN DAILY PRN 12/20/20 21:45 Cefazolin Sodium/ Dextrose 50 ml @ 100 mls/hr 1X ONCE 12/30/20 08:00 12/30/20 08:29 DC 12/30/20 07:20 100 MLS/HR Dextrose (Dextrose 50%-Water Syringe) 12.5 gm PRN Q15MIN PRN 12/20/20 21:45 Docusate Sodium (Colace) 100 mg PRN DAILY PRN 12/20/20 21:45 Famotidine (Pepcid) 20 mg DAILY 12/21/20 09:00 01/03/21 08:26 20 MG Fentanyl Citrate (Fentanyl 2ml Vial) 50 mcg PRN Q5MIN PRN 12/30/20 06:00 12/31/20 05:59 DC Ferrous Sulfate (Feosol) 325 mg BIDWMEALS 12/24/20 17:00 01/03/21 18:16 325 MG Ferrous Sulfate (Iron Oral Solution) 300 mg BIDWMEALS 12/22/20 17:00 12/24/20 11:08 DC 12/24/20 08:54 300 MG Furosemide (Lasix) 40 mg [id number] 12/26/20 10:30 12/30/20 11:38 DC 12/30/20 08:58 40 MG Furosemide 100 mg/ Sodium Chloride 100 ml @ 0 mls/hr CONT PRN 12/21/20 11:30 12/26/20 10:28 DC 12/26/20 10:06 10 MLS/HR Heparin Sodium (Porcine) (Heparin Sodium) 2,500 unit 1X ONCE 12/27/20 12:15 12/27/20 12:19 DC 12/27/20 13:08 5,500 UNIT Heparin Sodium/ Sodium Chloride (HEPARIN for ARTERIAL LINE FLUSH) 1,000 unit 1X ONCE 12/27/20 12:15 12/27/20 12:19 DC 12/27/20 13:04 1,000 UNIT Hydralazine HCl (Apresoline) 25 mg TID 12/21/20 09:00 01/03/21 21:40 25 MG Hydromorphone HCl (Dilaudid) 0.5 mg PRN Q10MIN PRN 12/30/20 06:00 12/31/20 05:59 DC Insulin Glargine (Lantus Syringe) 15 unit QHS 12/20/20 22:00 01/03/21 13:14 DC 01/02/21 21:42 15 UNIT Insulin Human Lispro (HumaLOG) 0-7 UNITS TIDWMEALS 12/21/20 08:00 Iodixanol (Visipaque 320) 100 ml 1X ONCE 12/27/20 12:15 12/27/20 12:19 DC 12/27/20 13:04 30 ML Lactobacillus Rhamnosus (Culturelle) 1 cap BID 12/26/20 21:00 01/03/21 21:39 1 CAP Lidocaine HCl (Lidocaine 1% 20ml Vial) 20 ml STK-MED ONCE 12/30/20 07:50 12/30/20 19:07 DC Lidocaine HCl (Lidocaine Pf 2% Vial) 5 ml STK-MED ONCE 12/30/20 06:36 12/30/20 19:06 DC Lidocaine/ Epinephrine (LIDOCAINE 1%-EPI 1:100,000 Multi-Dose) 20 ml STK-MED ONCE 01/04/21 10:00 01/04/21 10:00 DC Linezolid (Zyvox) 600 mg BID 12/25/20 09:00 01/02/21 09:10 DC 01/02/21 08:43 600 MG Linezolid/Dextrose 300 ml @ 300 mls/hr Q12HR 01/02/21 21:00 01/04/21 08:50 300 MLS/HR Metoprolol Succinate (Toprol Xl) 25 mg DAILY 12/21/20 09:00 01/03/21 08:26 25 MG Midazolam HCl (Versed) 5 mg 1X ONCE 12/27/20 12:15 12/27/20 12:19 DC 12/27/20 13:05 1 MG Morphine Sulfate (Morphine Sulfate) 1 mg PRN Q10MIN PRN 12/30/20 06:00 12/31/20 05:59 DC Nystatin (Nystop) 1 luna BID 12/20/20 22:00 01/03/21 21:00 1 LUNA Ondansetron HCl (Zofran) 4 mg PRN Q6HRS PRN 12/20/20 21:45 01/04/21 01:39 4 MG Polyethylene Glycol (miraLAX PACKET) 17 gm PRN DAILY PRN 12/22/20 12:00 Potassium Chloride (Klor-Con) 40 meq DAILY 12/24/20 09:00 01/02/21 11:03 DC 01/01/21 08:47 40 MEQ Prochlorperazine Edisylate (Compazine) 5 mg PACU PRN PRN 12/30/20 06:00 12/31/20 05:59 DC Propofol (Diprivan) 200 mg STK-MED ONCE 12/30/20 07:56 12/30/20 19:08 DC Ringer's Solution 1,000 ml @ 30 mls/hr Q24H 12/30/20 06:00 12/30/20 17:59 DC 12/30/20 07:05 30 MLS/HR Sennosides (Senna) 17.2 mg PRN BID PRN 12/20/20 21:45 01/01/21 08:44 17.2 MG Sertraline HCl (Zoloft) 50 mg DAILY 12/21/20 09:00 01/03/21 08:26 50 MG Sodium Chloride 1,000 ml @ 75 mls/hr [id number] 01/01/21 12:00 01/03/21 12:55 DC 01/03/21 05:20 75 MLS/HR Lab Laboratory Tests Test 01/03/21 11:46 01/03/21 16:43 01/03/21 21:04 01/04/21 06:30 Glucose (Fingerstick) 76 mg/dL (70-99) 61 mg/dL (70-99) 133 mg/dL (70-99) White Blood Count 14.0 x10^3/uL (4.0-11.0) Red Blood Count 2.78 x10^6/uL (4.30-5.70) Hemoglobin 8.0 g/dL (13.0-17.5) Hematocrit 25.4 % (39.0-53.0) Mean Corpuscular Volume 91 fL (79-100) Mean Corpuscular Hemoglobin 29 pg (25-35) Mean Corpuscular Hemoglobin Concent 32 g/dL (31-37) Red Cell Distribution Width 17.7 % (11.5-14.5) Platelet Count 126 x10^3/uL (140-400) Neutrophils (%) (Auto) 88 % (31-73) Lymphocytes (%) (Auto) 8 % (24-48) Monocytes (%) (Auto) 4 % (0-9) Eosinophils (%) (Auto) 0 % (0-3) Basophils (%) (Auto) 0 % (0-3) Neutrophils # (Auto) 12.3 x10^3/uL (1.8-7.7) Lymphocytes # (Auto) 1.1 x10^3/uL (1.0-4.8) Monocytes # (Auto) 0.5 x10^3/uL (0.0-1.1) Eosinophils # (Auto) 0.1 x10^3/uL (0.0-0.7) Basophils # (Auto) 0.1 x10^3/uL (0.0-0.2) Segmented Neutrophils % 84 % (35-66) Band Neutrophils % 6 % (0-9) Lymphocytes % 6 % (24-48) Monocytes % 3 % (0-10) Basophils % 1 % (0-3) Platelet Estimate Decreased (ADEQUATE) Large Platelets Few Anisocytosis Slight Tear Drop Cells Occ Ovalocytes Few Tanesha Cells Few Acanthocytes Occ Schistocytes Occ Sodium Level 139 mmol/L (136-145) Potassium Level 5.3 mmol/L (3.5-5.1) Chloride Level 108 mmol/L (98-107) Carbon Dioxide Level 22 mmol/L (21-32) Anion Gap 9 (6-14) Blood Urea Nitrogen 79 mg/dL (8-26) Creatinine 4.0 mg/dL (0.7-1.3) Estimated GFR (Cockcroft-Gault) 14.8 Glucose Level 98 mg/dL (70-99) Calcium Level 8.3 mg/dL (8.5-10.1) Test 01/04/21 07:58 01/04/21 08:35 Glucose (Fingerstick) 99 mg/dL (70-99) Prothrombin Time 17.4 SEC (11.7-14.0) Prothromb Time International Ratio 1.5 (0.8-1.1) Activated Partial Thromboplast Time 37 SEC (24-38) Results All relevant outside records, renal labs, imaging studies, telemetry/EKG's were reviewed. Justicifation of Admission Dx: Justifications for Admission: Justification of Admission Dx: Yes BEATRIZ IBARRA MD Jan 04, 2021 10:24
--- NOTE | 2021-01-04 10:27 | PDOC ---
[employer] PROGRESS NOTE Date of Service DOS: DATE: 01/04/21 TIME: 10:25 Chief Complaint Chief Complaint Acute volume overload Acute on chronic CHF exacerbation Hypokalemia History of chronic kidney disease Normocytic anemia, possible chronic GI blood loss with EGD showing antral gastric ulcer Left lower extremity wound ulcer with dry gangrene Morbid obesity, OHS, suspect ROBB Severe protein malnutrition History of diabetes mellitus type 2 History of peripheral vascular disease History of atrial fibrillation History of bradycardia status post pacemaker placement History of peripheral vascular disease Hypertension Dyslipidemia Admit to medicine for further management Pending MRI of lower extremity today Appreciate vascular surgery recommendationwe will obtain MRI to determine level of possible amputation ID consulted IV Lasix drip started Strict I's and O's Echocardiogram from 07/16/2020 - normal left ventricular systolic function, EF 55 to 60%. No regional wall motion abnormalities noted, valvular aortic stenosis. Moderate tricuspid regurgitation with PAP 68 mmHg. Nephrology consult Cardiology consult Trend hemoglobin if less than 7 then transfuse 1 unit Eliquis for DVT prophylaxis Pepcid GI prophylaxis ADA diet Full code Discussed with RN and SW Disposition inpatient management as above Surrogate decision maker is Phuong Mathis History of Present Illness History of Present Illness 01/04/2021 No acute events overnight. Patient seen and examined bedside. Creatinine increased to 4.0. No concerns from nursing at this time. Patient's chart, labs, images were reviewed and discussed with RN. 01/03/2021 No acute events overnight. Patient seen and examined bedside. Creatinine increased to 3.7. Pending further nephrology recommendations for possible HD. No urine output per nursing. Patient's chart, labs, images were reviewed and discussed with RN 01/02/2021 Afebrile, no acute events overnight. Kidney function slightly worse today despite gentle hydration, CR 3.5 (eGFR 17.3). Per nephrology, if no improvement in renal function may need to initiate HD. Continue IV fluids. Continue oral antibiotics for left calcaneal heel cellulitis. 01/01/2021 Afebrile, currently breathing on room air. Creatinine increased to 3.4 today, despite gentle hydration. Will need to discuss with nephrology. Will continue gentle hydration and close monitoring of kidney function. Echocardiogram from 07/16/2020 showed normal left ventricular systolic function, ejection fraction 55-60%; no regional wall motion abnormality, mildmoderate valvular aortic stenosis, mild much regurgitation, moderate tricuspid regurgitation with PAP 68 mmHg. Continue p.o. Augmentin and Zyvox for left calcaneal heel cellulitis. 12/31/2020 Afebrile, no acute events overnight. Wound care is addressing his heels this morning. Plan to have wound VAC placed prior to discharge. BUN 78, creatinine 3.1 today. Due to concerns of worsening renal function and concerns for lack of appropriate follow-up at [facility], will hold discharge today until kidney function can be addressed by nephrology, likely with gentle hydration and close monitoring of kidney function. These methods are being taken to attempt to avoid the need for renal replacement therapy in the future. Discussed with patient and , and they are agreeable to this plan. 12/30/2020 Afebrile, no new complaints today. Had left heel ulcer debridement today. I believe plan is to have wound VAC placed tomorrow. Continue antibiotics, per ID. He will need prison once stable to discharge. Continue p.o. La six; continue gentle hydration and monitor kidney function. Creatinine 2.8, eGFR 22.3. 12/29/2020 Afebrile, breathing on room air. Plan is for elective debridement of the left heel ulcer tomorrow. Continue Augmentin and Zyvox, per ID. 12/28/2020 Afebrile, denies shortness of breath. Abdominal aortogram yesterday showed no significant aortoiliac disease bilaterally, isolated left posterior tibial artery occlusion with adequate two-vessel runoff to the distal foot and calcaneal area. Overall the patient is felt to have adequate runoff to the foot for further intervention with debridement of the left heel ulcer. I believe the plan is for elective debridement of left heel ulcer tomorrow. Discussed with RN. 12/27/2020 Afebrile, currently on room air. Off Lasix drip, currently Lasix 40 mg twice daily. Net positive fluid balance overnight, 510mL. Continue p.o. Augmentin and Zyvox. Aortogram pending today. 12/26/2020 No acute events overnight. Patient seen and examined bedside. -2.5 L output in the urine in the past 24 hours. No complaints from the patient. Pending aortogram with LLE runoff with vascular surgery. Follow-up 12/24/2020 Patient was seen and examined in room today. Awaiting plan from vascular/cardio on possible PCI/angio of LLE. Case discussed with RN and case management. Chart and specialist notes reviewed. 12/23/2020 No acute events overnight. Patient seen and examined bedside. Pedal edema has improved total of -2.3 L of urine output. Low potassium today will replace IV and p.o. Creatinine has also improved. Pending MRI versus CT of left lower extremity. Patient's chart, labs, images were reviewed and discussed with RN 12/22/2020 No acute events overnight patient seen and examined bedside. No significant weight loss with Lasix drip. Will defer further fluid offloading with cardiology. Pending MRI and further vascular surgery recommendations for lower extremity foot ulcer. Patient's chart, labs, images were reviewed and discussed with RN 12/21/2020 No acute events overnight. Patient has adequate urine output and feels less fluid overload. Documented -580 cc. Patient's chart, labs, images were reviewed and discussed with RN 75 year old male who was sent here from [facility] for evaluation due to bilateral lower extremity swelling, worsening renal function. He has history of CHF, history of chronic renal failure. Patient was sent here by the [facility] [employer] there today for evaluation of bilateral lower extremity swelling and increased renal function test. Patient denies any chest pain, denies any cough or fever. Patient does have trouble breathing with exertion. Patient says they told him to come here to be admitted so they can do colonoscopy because he has been anemic as well. Patient denies any rectal bleeding. His weight today is 147 kg Upon chart review patient was seen in November 04 09/12/2020 for GI bleed.. Eliquis was actually restarted on 11/09/2020. And also had a pacemaker placed on 11/09/2020 and tolerated procedure well. Patient also does follow-up with Dr. Chau with nephrology and his baseline creatinine appears to be between 1.8-2.0. Vitals/I&O Vitals/I&O: Vital Signs Date Time Temp Pulse Resp B/P (MAP) Pulse Ox O2 Delivery O2 Flow Rate FiO2 01/04/21 10:11 98.1 71 16 134/65 (88) 92 Room Air 98.1 01/03/21 08:00 2.0 I & O 01/03/21 01/03/21 01/04/21 15:00 23:00 07:00 Intake Total 640 ml 380 ml 300 ml Output Total 500 ml 100 ml Balance 640 ml -120 ml 200 ml Physical Exam Physical Exam: GENERAL: Alert, oriented gentleman, not in any distress. HEENT: Both pupils are round and reacting. No conjunctival lesion. No lesion in the mouth. NECK: Supple. No JVP. No lymphadenopathy. LUNGS: Clear. HEART: S1, S2 regular. Pacer site clean ABDOMEN: Soft, nontender. No organomegaly. Obeses EXTREMITIES: Edema present bilaterally l, Bilateral rooke boots in place with left heel wrapped in bandage. SKIN: Rest of skin exam is unremarkable. NEUROLOGIC: The patient is alert, awake, and appropriate. No focal neurologic deficit. General: Alert, Oriented X3, Cooperative, No acute distress Heart: Other (2/6 sysotlic murmur, IRRR- tele AFIB. int V pacing ) Lungs: Clear, Other Abdomen: Soft Extremities: Other (2-3+ bilateral LE edema, anasarca ) Skin: No significant lesion Labs Labs: Laboratory Tests Test 01/03/21 11:46 01/03/21 16:43 01/03/21 21:04 01/04/21 06:30 Glucose (Fingerstick) 76 mg/dL (70-99) 61 mg/dL (70-99) 133 mg/dL (70-99) White Blood Count 14.0 x10^3/uL (4.0-11.0) Red Blood Count 2.78 x10^6/uL (4.30-5.70) Hemoglobin 8.0 g/dL (13.0-17.5) Hematocrit 25.4 % (39.0-53.0) Mean Corpuscular Volume 91 fL (79-100) Mean Corpuscular Hemoglobin 29 pg (25-35) Mean Corpuscular Hemoglobin Concent 32 g/dL (31-37) Red Cell Distribution Width 17.7 % (11.5-14.5) Platelet Count 126 x10^3/uL (140-400) Neutrophils (%) (Auto) 88 % (31-73) Lymphocytes (%) (Auto) 8 % (24-48) Monocytes (%) (Auto) 4 % (0-9) Eosinophils (%) (Auto) 0 % (0-3) Basophils (%) (Auto) 0 % (0-3) Neutrophils # (Auto) 12.3 x10^3/uL (1.8-7.7) Lymphocytes # (Auto) 1.1 x10^3/uL (1.0-4.8) Monocytes # (Auto) 0.5 x10^3/uL (0.0-1.1) Eosinophils # (Auto) 0.1 x10^3/uL (0.0-0.7) Basophils # (Auto) 0.1 x10^3/uL (0.0-0.2) Segmented Neutrophils % 84 % (35-66) Band Neutrophils % 6 % (0-9) Lymphocytes % 6 % (24-48) Monocytes % 3 % (0-10) Basophils % 1 % (0-3) Platelet Estimate Decreased (ADEQUATE) Large Platelets Few Anisocytosis Slight Tear Drop Cells Occ Ovalocytes Few Tanesha Cells Few Acanthocytes Occ Schistocytes Occ Sodium Level 139 mmol/L (136-145) Potassium Level 5.3 mmol/L (3.5-5.1) Chloride Level 108 mmol/L (98-107) Carbon Dioxide Level 22 mmol/L (21-32) Anion Gap 9 (6-14) Blood Urea Nitrogen 79 mg/dL (8-26) Creatinine 4.0 mg/dL (0.7-1.3) Estimated GFR (Cockcroft-Gault) 14.8 Glucose Level 98 mg/dL (70-99) Calcium Level 8.3 mg/dL (8.5-10.1) Test 01/04/21 07:58 01/04/21 08:35 Glucose (Fingerstick) 99 mg/dL (70-99) Prothrombin Time 17.4 SEC (11.7-14.0) Prothromb Time International Ratio 1.5 (0.8-1.1) Activated Partial Thromboplast Time 37 SEC (24-38) Assessment and Plan Assessmemt and Plan Problems Medical Problems: (1) Anemia Status: Acute (2) CHF exacerbation Status: Acute Comment Review of Relevant I have reviewed the following items mara (where applicable) has been applied. Justifications for Admission Other Justification CHF exacerbation KANNAN NELSON MD Jan 04, 2021 10:27
[2021-01-04] MEDS ORDERED: MIDAZOLAM HCL/PF 2 MG/2 ML VIAL. ONE (10:31)
[2021-01-04] MEDS ORDERED: fentaNYL PF VIAL 100 MCG/2 ML VIAL ONE (10:31)
--- NOTE | 2021-01-04 10:47 | PDOC ---
Date of Service: DATE: 01/04/21 TIME: 10:43 Objective: Objective: Reviewed chart - to have tunnel cath for HD. Hep B Core Total Ab reactive. Vital Signs: Vital Signs Date Time Temp Pulse Resp B/P (MAP) Pulse Ox O2 Delivery O2 Flow Rate FiO2 01/04/21 10:11 98.1 71 16 134/65 (88) 92 Room Air 98.1 01/03/21 08:00 2.0 Labs: Laboratory Tests Test 01/03/21 11:46 01/03/21 16:43 01/03/21 21:04 01/04/21 07:58 Glucose (Fingerstick) 76 mg/dL (70-99) 61 mg/dL (70-99) 133 mg/dL (70-99) 99 mg/dL (70-99) PE: GEN: NAD LUNGS: CTAB HEART: RRR ABD: soft, non-distended EXTREMITY: BLE w/ boots NEURO/PSYCH: sleeping, did not awaken A/P: S/p left heel debridement CKD/REBECCA, hyperkalemia CAD, A Fib - on ASA Chronic anemia, h/o -- Renal function worsening, plans as above. Continue acid-investment accountant if okay per nephrology. Justicifation of Admission Dx: Justifications for Admission: Justification of Admission Dx: Yes FABBY ROBERTSON Jan 04, 2021 10:47
[2021-01-04] MEDS ORDERED: IV NORMAL SALINE 1000ML BAG 1,000 ML IV PRN ×2 (11:00)
[2021-01-04] MEDS ORDERED: LIDOCAINE 1%/EPI 1:100,000 20 ML VIAL. SQ ONE (11:00)
[2021-01-04] MEDS ORDERED: fentaNYL PF VIAL 100 MCG/2 ML VIAL IV ONE (11:00)
[2021-01-04] MEDS ORDERED: MIDAZOLAM HCL/PF 2 MG/2 ML VIAL. IV ONE (11:00)
[2021-01-04] MEDS ORDERED: ALBUMIN HUMAN 25% 200 ML IV PRN (11:00)
[2021-01-04 11:06] VITALS: BP 129/56
--- NOTE | 2021-01-04 12:14 | NUR ---
Sister was up to see patient, pt off unit (IR, then to dialysis).
--- NOTE | 2021-01-04 12:43 | NUR ---
SS following up with discharge planning. SS reviewed pt chart and discussed with pt RN. Pt is currently on room air. Pt on IV Zyvox. Wound care following. Wound vac in place. Pt now new onset ESRD and needing outpatient chair time. Pt going to IR today for tunneled cath placement. Pt to start dialysis today. COVID19 test requested for dialysis referral. PT/OT recommended care home unit. Pt accepted at [facility], ; fax [phone]. SS will continue to follow for discharge planning.
[2021-01-04] MEDS ORDERED: DIALYSIS PATIENT. MC PRN ×2 (12:45)
--- NOTE | 2021-01-04 12:54 | PDOC ---
Exam Fashion Artist Fashion Artist Goyo Pre-Procedure Diagnosis Pre-Procedure Diagnosis ARF, ESRD? Post-Procedure Diagnosis Post-Procedure Diagnosis SAME Procedure Performed Procedure Performed RIGHT IJ TUNNELED HDC PLACEMENT Type of Anesthesia Type of Anesthesia MOD SED Estimated Blood Loss EBL: 10 Specimens Specimans None Drain/Tubes Drains/Tubes 23 cm Palindrome [facility] Condition of Patient Condition of Patient Stable Disposition Disposition Return to floor CARRILLO ACOSTA MD Jan 04, 2021 12:54
--- NOTE | 2021-01-04 14:28 | RAD ---
Procedure: Tunneled hemodialysis catheter placement Clinical Indication: Renal failure Sedation: Conscious sedation was administered for 15 minutes. The patient was monitored by a [facility] ed independent observer throughout the time of sedation. Please refer to the medical record for exac t doses of medications utilized to achieve moderate sedation. Fluoro Time: 0.7 minutes Dose area product: 6 Francis centimeter squared Sterility: All elements of maximal sterile barrier technique including the use of a cap, mask, steril e gown, sterile gloves, large sterile sheet, appropriate hand hygiene, and 2% chlorhexidine for cutan eous antisepsis (or acceptable alternative antiseptic per current guidelines) were followed for this procedure. Consent: The procedure was explained in its entirety to the patient or the patients designated repres entative by a member of the treatment team, including a discussion of the risks, benefits and commonl y accepted alternatives to the procedure, as well as the expected consequences of no therapy whatsoev er. Discussion of the risks included, but was not limited to, those that are most frequent and thos e that are rare but possibly severe or life-threatening, as well as the possibility of unforeseen com plications. Technique and Findings: Following informed consent, the patient was prepped and draped in the usual s terile fashion. Ultrasound interrogation of the right neck revealed patency and compressibility of t he right internal jugular vein. A 21-gauge micropuncture was then used to gain access to this vein u nder ultrasound guidance. A hard copy ultrasound image was recorded. The needle was exchanged over a wire for a 4 Turkish sheath which was used to guide an Amplatz wire into the IVC. The skin over the right anterior chest wall was anesthetized. A small dermatotomy was made. A 23 cm palindrome hemodi alysis catheter was then tunneled subcutaneously towards the neck dermatotomy and deployed through a large caliber peel-away sheath under fluoroscopic guidance such that the distal tip resided in the mi d right atrium. Manual flow rates were assessed and found to be within normal limits. Catheter was t hen secured, and sterile dressings were applied.. The neck dermatotomy was closed with Dermabond. No immediate complications were identified. Impression: Ultrasound fluoroscopically guided placement of right internal jugular tunneled dialysis central venous catheter Electronically signed by: Moshe Nance MD (01/04/2021 2:25 PM) [id number]
--- NOTE | 2021-01-04 15:59 | PDOC ---
CARDIO Progress Notes Date and Time Date of Service 01/04/21 Time of Evaluation 1300 Subjective Subjective: No Chest Pain, No shortness of breath, No Palpitations, Other (feels worn out, seen on HD) Vitals Vitals Vital Signs Date Time Temp Pulse Resp B/P (MAP) Pulse Ox O2 Delivery O2 Flow Rate FiO2 01/04/21 11:06 94 14 99 Nasal Cannula 2.0 01/04/21 10:11 98.1 134/65 (88) 98.1 Weight Weight [ ] Input and Output Intake and Output Intake and Output 01/04/21 07:00 Intake Total 1320 ml Output Total 600 ml Balance 720 ml Intake Oral 720 ml IV Total 600 ml Output Urine Total 600 ml # Bowel Movements 1 Laboratory Labs Laboratory Tests Test 01/03/21 16:43 01/03/21 21:04 01/04/21 06:30 01/04/21 07:58 Glucose (Fingerstick) 61 mg/dL (70-99) 133 mg/dL (70-99) 99 mg/dL (70-99) White Blood Count 14.0 x10^3/uL (4.0-11.0) Red Blood Count 2.78 x10^6/uL (4.30-5.70) Hemoglobin 8.0 g/dL (13.0-17.5) Hematocrit 25.4 % (39.0-53.0) Mean Corpuscular Volume 91 fL (79-100) Mean Corpuscular Hemoglobin 29 pg (25-35) Mean Corpuscular Hemoglobin Concent 32 g/dL (31-37) Red Cell Distribution Width 17.7 % (11.5-14.5) Platelet Count 126 x10^3/uL (140-400) Neutrophils (%) (Auto) 88 % (31-73) Lymphocytes (%) (Auto) 8 % (24-48) Monocytes (%) (Auto) 4 % (0-9) Eosinophils (%) (Auto) 0 % (0-3) Basophils (%) (Auto) 0 % (0-3) Neutrophils # (Auto) 12.3 x10^3/uL (1.8-7.7) Lymphocytes # (Auto) 1.1 x10^3/uL (1.0-4.8) Monocytes # (Auto) 0.5 x10^3/uL (0.0-1.1) Eosinophils # (Auto) 0.1 x10^3/uL (0.0-0.7) Basophils # (Auto) 0.1 x10^3/uL (0.0-0.2) Segmented Neutrophils % 84 % (35-66) Band Neutrophils % 6 % (0-9) Lymphocytes % 6 % (24-48) Monocytes % 3 % (0-10) Basophils % 1 % (0-3) Platelet Estimate Decreased (ADEQUATE) Large Platelets Few Anisocytosis Slight Tear Drop Cells Occ Ovalocytes Few Tanesha Cells Few Acanthocytes Occ Schistocytes Occ Sodium Level 139 mmol/L (136-145) Potassium Level 5.3 mmol/L (3.5-5.1) Chloride Level 108 mmol/L (98-107) Carbon Dioxide Level 22 mmol/L (21-32) Anion Gap 9 (6-14) Blood Urea Nitrogen 79 mg/dL (8-26) Creatinine 4.0 mg/dL (0.7-1.3) Estimated GFR (Cockcroft-Gault) 14.8 Glucose Level 98 mg/dL (70-99) Calcium Level 8.3 mg/dL (8.5-10.1) Test 01/04/21 08:35 Prothrombin Time 17.4 SEC (11.7-14.0) Prothromb Time International Ratio 1.5 (0.8-1.1) Activated Partial Thromboplast Time 37 SEC (24-38) Review of Systems Constitutional: yes: alert, oriented Ears/Nose/Throat: Yes: no symptom reported Eyes: Yes: no symptom reported Pulmonary: Yes dyspnea Cardiovascular: Yes no symptom reported Gastrointestional: Yes: no symptom reported Genitourinary: Yes: no symptom reported Musculoskeletal: Yes: no symptom reported Skin: Yes no symptom reported Psychiatric/Neurological: Yes: no symptom reported Physical Exam HEENT: Neck Supple W Full Motion Chest: Symmetric LUNGS: Other (diminished ) Heart: irregularly irregular (AFIB) Abdomen: Soft N/T, Other (anasarca) Extremities: Other (2+ bilaterlal LE edema ) Neurology: alert, oriented, follow commands Assessment Assessment 1. Worsening LE edema, anasarca. 2. Acute on chronic diastolic CHF; Echo 07/25 with preserved LV systolic function. 3. Anemia with h/o GIB with cauterization of bleeding antral ulcer. s/p transfusion. no obvious bleeding. 4. CAD; s/p PCI/RHEA to LAD in 2019. clinically stable, CP free. 5. PAD s/p past orbital atherectomy/[employer] to right posterior tibial artery. LE wounds present. Aortogram with Isolated left posterior tibial artery occlusion with adequate two-vessel runoff to the distal foot and calcaneal area. S/p left heel debridement 6. Permanent AFIB; rate controlled on BB 7. SSS; s/p PPM ([employer]). intermittent v-pacing. recent device check with normal function 8. Hypertension; low end 9. Hyperlipidemia; statin 10. Diabetes, II; as per IM 11. REBECCA on CKD, hyperkalemia; Cr ^ 4.0. HD initiated 12. Valvular disease; mild to moderate aortic stenosis 13. Protein calorie malnutrition 14. Hypokalemia Recommendations Fluid offloading via HD; avoid nephrotoxins ASA for stroke prophylaxis. No OAC given recent GIB Secondary prevention Metoprolol for rate control Local wound care Follow vascular recs Supportive care Justicifation of Admission Dx: Justifications for Admission: Justification of Admission Dx: Yes YUDY SCOTT APRN Jan 04, 2021 15:59
[2021-01-04] MEDS: NYSTATIN TOPICAL POWDER 15GM BOTTLE. TP SCH ×2 (17:00→21:28)
[2021-01-04] MEDS: FAMOTIDINE 20 MG TABLET. PO SCH (17:01)
[2021-01-04] MEDS: AMOXICILLIN/K CLAV 500/125MG TABLET. PO SCH ×2 (17:02→21:27)
[2021-01-04] MEDS: SERTRALINE 50 MG TABLET. PO SCH (17:02)
[2021-01-04] MEDS: METOPROLOL SUCC 24HR ER 25 MG TAB.ER.24H. PO SCH (17:04)
--- NOTE | 2021-01-04 17:51 | NUR ---
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 Patient is well known to us from the wound clinic. Wounds cleansed and assessed. Treatment Recommendations/Plan: Recommendations to apply contact layer to right heel and cover with foam dressing. To the left lateral leg contact layer, cover with ABD pad, and kerlix. Skin prep to the left medial foot and left lateral foot. Lastly, wound vac to the left heel continuos at 125mmHg. Dressings applied. Education provided: Patient educated on dressing changes and PU prevention. Offloading surface/device: Patient is on a P-500 bed, patient has bilateral heel medix which were placed back on patient and floated using pillows. Patient became nauseated during assessment, patient vomited and RN notified. Recommended Referrals/Tests: N/A Discharge Recommendations for dressings: Dressing change instructions left in room. Wound care will follow up this Sunday01/07/21.
[2021-01-04 19:00] VITALS: BP 113/61
[2021-01-04] MEDS: ATORVASTATIN CALCIUM 40 MG TABLET. PO SCH (21:27)
[2021-01-04] MEDS: ACETAMINOPHEN 325 MG TABLET. PO PRN (21:27)
[2021-01-04 23:00] VITALS: BP 108/52
[2021-01-05] MEDS: ONDANSETRON PF 4 MG/2 ML VIAL. IVP PRN ×2 (00:48→17:10)
[2021-01-05 02:25] VITALS: BP 118/52
[2021-01-05 07:00] VITALS: BP 118/49
[2021-01-05 07:13] LABS: BASO # 0.1 x10^3/uL (0.0-0.2); BASO % 1 % (0-3); EOS # 0.1 x10^3/uL (0.0-0.7); EOS % 1 % (0-3); HEMATOCRIT 23.7 % (39.0-53.0); HEMOGLOBIN 7.7 g/dL (13.0-17.5); LYMPH # 1.1 x10^3/uL (1.0-4.8); LYMPH % 15 % (24-48); MEAN CORPUSCULAR HEMOGLOBIN 30 pg (25-35); MEAN CORPUSCULAR HGB CONC 33 g/dL (31-37); MEAN CORPUSCULAR VOLUME 90 fL (79-100); MONO # 0.4 x10^3/uL (0.0-1.1); MONO % 5 % (0-9); NEUT # 5.7 x10^3/uL (1.8-7.7); NEUT % 78 % (31-73); PLATELET COUNT 86 x10^3/uL (140-400); RED BLOOD COUNT 2.62 x10^6/uL (4.30-5.70); RED CELL DISTRIBUTION WIDTH 17.9 % (11.5-14.5); WHITE BLOOD COUNT 7.3 x10^3/uL (4.0-11.0)
[2021-01-05 07:27] LABS: CALCIUM 8.3 mg/dL (8.5-10.1); CREATININE 3.5 mg/dL (0.7-1.3); GFR 17.3; POTASSIUM 4.8 mmol/L (3.5-5.1)
[2021-01-05] MEDS: INSULIN LISPRO 300 UNITS/3 ML VIAL. SQ SCH ×3 (07:53→17:00)
--- NOTE | 2021-01-05 08:33 | PDOC ---
Infectious Disease Note Subjective: Subjective Patient without complaints Underwent RT Tunneled HDC yesterday and dialysis session yesterday Appetite remains poor Still has intermittent nausea No vomiting, fever, cough, shortness of breath or abdominal pain Underwent wound VAC placement yesterday Vital Signs: Vital Signs Vital Signs Date Time Temp Pulse Resp B/P (MAP) Pulse Ox O2 Delivery O2 Flow Rate FiO2 01/05/21 02:25 98.2 68 16 118/52 (74) 95 Room Air 98.2 01/04/21 11:06 2.0 Physical Exam: PHYSICAL EXAM GENERAL: Alert, oriented gentleman, not in any distress. HEENT: Both pupils are round and reacting. No conjunctival lesion. No lesion in the mouth. NECK: Supple. RT Tunneled HDC LUNGS: Clear. HEART: S1, S2 regular. Pacer site clean ABDOMEN: Soft, nontender. No organomegaly. Obeses EXTREMITIES: Edema present bilaterally, wound VAC in place not taken down NEUROLOGIC: The patient is alert, awake, and appropriate. No focal neurologic deficit. Medications: Inpatient Meds: Medications reviewed. Labs: Lab Laboratory Tests Test 01/04/21 08:35 01/04/21 16:30 01/04/21 17:03 01/04/21 20:36 Prothrombin Time 17.4 SEC (11.7-14.0) Prothromb Time International Ratio 1.5 (0.8-1.1) Activated Partial Thromboplast Time 37 SEC (24-38) SARS-CoV-2 RNA (ROD) Negative (Negative) Glucose (Fingerstick) 79 mg/dL (70-99) 111 mg/dL (70-99) Test 01/05/21 06:30 01/05/21 07:47 White Blood Count 7.3 x10^3/uL (4.0-11.0) Red Blood Count 2.62 x10^6/uL (4.30-5.70) Hemoglobin 7.7 g/dL (13.0-17.5) Hematocrit 23.7 % (39.0-53.0) Mean Corpuscular Volume 90 fL (79-100) Mean Corpuscular Hemoglobin 30 pg (25-35) Mean Corpuscular Hemoglobin Concent 33 g/dL (31-37) Red Cell Distribution Width 17.9 % (11.5-14.5) Platelet Count 86 x10^3/uL (140-400) Neutrophils (%) (Auto) 78 % (31-73) Lymphocytes (%) (Auto) 15 % (24-48) Monocytes (%) (Auto) 5 % (0-9) Eosinophils (%) (Auto) 1 % (0-3) Basophils (%) (Auto) 1 % (0-3) Neutrophils # (Auto) 5.7 x10^3/uL (1.8-7.7) Lymphocytes # (Auto) 1.1 x10^3/uL (1.0-4.8) Monocytes # (Auto) 0.4 x10^3/uL (0.0-1.1) Eosinophils # (Auto) 0.1 x10^3/uL (0.0-0.7) Basophils # (Auto) 0.1 x10^3/uL (0.0-0.2) Sodium Level 139 mmol/L (136-145) Potassium Level 4.8 mmol/L (3.5-5.1) Chloride Level 105 mmol/L (98-107) Carbon Dioxide Level 23 mmol/L (21-32) Anion Gap 11 (6-14) Blood Urea Nitrogen 54 mg/dL (8-26) Creatinine 3.5 mg/dL (0.7-1.3) Estimated GFR (Cockcroft-Gault) 17.3 Glucose Level 103 mg/dL (70-99) Calcium Level 8.3 mg/dL (8.5-10.1) Glucose (Fingerstick) 108 mg/dL (70-99) Objective: Assessment: 1. Left calcaneal black eschar. MRI neg for osteo R heel wound - Cellulitis is better 12/30 s/p Left heel excisional debridement subcutaneous tissue and skin Wound pictures reviewed, mild slough area present 2. Peripheral arterial disease. 3. Left big toe ulcer. 4. Obesity. 5. Diabetes. 6. Hypertension. 7. Congestive heart failure. 8. Renal insufficiency. 9. Sulfa allergy 10. Nausea could be drug-induced improved Thrombocytopenia Plan: Plan of Care Continue Augmentin DC Zyvox due to thrombocytopenia start doxycycline 01/05 Maintain aspiration precaution cont off load Wound /Vac care per wound team Discussed with nursing staff AMADOR ROSA MD Jan 05, 2021 08:33
[2021-01-05] MEDS: FERROUS SULFATE 325 MG TABLET. PO SCH ×2 (08:43→17:10)
[2021-01-05] MEDS: FAMOTIDINE 20 MG TABLET. PO SCH (08:44)
[2021-01-05] MEDS: ASCORBIC ACID 500 MG TABLET PO SCH ×2 (08:44→20:52)
[2021-01-05] MEDS: LACTOBACILLUS RHAMNOSUS GG 1 CAPSULE. PO SCH ×2 (08:44→20:52)
[2021-01-05] MEDS: hydrALAZINE 25 MG TABLET PO SCH ×3 (09:00→20:52)
--- NOTE | 2021-01-05 09:03 | PDOC ---
DATE OF SERVICE DATE: 01/05/21 TIME: 09:03 SUBJECTIVE ROS Denies any SOB, on room air. No N/V , states feeling little better after dialysis yesterday OBJECTIVE Vital Signs Vital Signs Date Time Temp Pulse Resp B/P (MAP) Pulse Ox O2 Delivery O2 Flow Rate FiO2 01/05/21 02:25 98.2 68 16 118/52 (74) 95 Room Air 98.2 01/04/21 11:06 2.0 I & 0 Intake and Output 01/05/21 07:00 Intake Total 700 ml Output Total 200 ml Balance 500 ml Intake Oral 400 ml IV Total 300 ml Output Urine Total 200 ml # Voids 2 # Bowel Movements 3 PHYSICAL EXAM Physical Exam General: NAD HEENT: Atraumatic, OM moist Neck supple Lungs: Clear to auscultation Heart: Bradycardic, ESM aortic) Abdomen: Soft, NT Extremities: Bilat LE edema 2-3 + a Neuro: grossly normal Psych/Mental Status: Mood NL lowery + , No cva or SP tenderness Skin No rash DIAGNOSIS/ASSESSMENT Assessment & Plan new Onset ESRD- Cardiorenal worsening renal function Initiated on Dialysis 01/04 ; 2 nd treatment today . Discussed treatment plan with Dawna Access Tunneled HDC on 01/04 Supportive care Strict I/O, Daily accurate weight . 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 Roca at [facility] , baseline Cr per [facility] records prior to previous admission 1.8-2.0 but 2.3 to 2.5 since REBECCA recently in November 2020 HypoKalemia - stable, replace as indicated Hx of Acute blood loss anemia secondary to GIB. s/p cauterization of bleeding antral ulcer by GI team and PRBC in November . Hgb this admission low as well - defer to GI Renal calculus - RK- Possible intrarenal stones. LK Possible intrarenal stones to include a 13 mm focus of increased echogenicity at the upper pole.No e/o obs truction reported . Pt denies any past history Worsening LE edema- Bilat LE and anasarca- Wt up compared to his recent admi ssion . off Lasix gtt , currently on Lasix PO BID ,Cardiology managing Left heel wound with dry gangrene and 1st toe ulcer- s/p CO2 angiograph on 5/25 Acute on chronic diastolic CHF; Echo 07/25 with preserved LV systolic function Anemia with h/o GIB with cauterization of bleeding antral ulcer CAD; s/p PCI/RHEA to LAD in 2019. clinically stable, CP free. PAD s/p past orbital atherectomy/LEHR TENDER to right posterior tibial artery. Permanent AFIB; rate controlled on BB COMMENT/RELEVANT DATA Meds Current Medications Medications (Trade) Dose Ordered Sig/Redd Start Time Stop Time Status Last Admin Dose Admin Acetaminophen (Tylenol) 650 mg PRN Q4HRS PRN 12/20/20 21:45 01/04/21 21:27 650 MG Albumin Human 200 ml @ 200 mls/hr 1X PRN PRN 01/04/21 11:00 01/04/21 16:59 DC Amoxicillin/ Clavulanate Potassium (Augmentin 500/ 125mg) 1 tab BID 12/31/20 21:00 01/04/21 21:27 1 TAB Amoxicillin/ Clavulanate Potassium (Augmentin 875/ 125mg) 1 tab BID 12/25/20 09:00 12/31/20 08:43 DC 12/31/20 08:29 1 TAB Apixaban (Eliquis) 2.5 mg BID 12/20/20 22:00 12/21/20 13:36 DC 12/21/20 09:00 2.5 MG Ascorbic Acid (Vitamin C) 500 mg BID 12/20/20 22:00 01/05/21 08:44 500 MG Aspirin (Ecotrin) 81 mg [id number] 01/01/21 08:00 01/04/21 17:02 81 MG Atorvastatin Calcium (Lipitor) 40 mg HS 12/20/20 22:00 01/04/21 21:27 40 MG Buspirone HCl (Buspar) 10 mg PRN DAILY PRN 12/20/20 21:45 01/05/21 00:44 10 MG Cefazolin Sodium/ Dextrose 50 ml @ 100 mls/hr 1X ONCE 01/04/21 11:00 01/04/21 11:29 DC 01/04/21 10:50 100 MLS/HR Dextrose (Dextrose 50%-Water Syringe) 12.5 gm PRN Q15MIN PRN 12/20/20 21:45 Docusate Sodium (Colace) 100 mg PRN DAILY PRN 12/20/20 21:45 Doxycycline Hyclate (Vibra-Tab) 100 mg BID 01/05/21 09:00 Famotidine (Pepcid) 20 mg DAILY 12/21/20 09:00 01/05/21 08:44 20 MG Fentanyl Citrate (Fentanyl 2ml Vial) 100 mcg 1X ONCE 01/04/21 11:00 01/04/21 11:01 DC 01/04/21 10:50 50 MCG Ferrous Sulfate (Feosol) 325 mg BIDWMEALS 12/24/20 17:00 01/05/21 08:43 325 MG Ferrous Sulfate (Iron Oral Solution) 300 mg BIDWMEALS 12/22/20 17:00 12/24/20 11:08 DC 12/24/20 08:54 300 MG Furosemide (Lasix) 40 mg [id number] 12/26/20 10:30 12/30/20 11:38 DC 12/30/20 08:58 40 MG Furosemide 100 mg/ Sodium Chloride 100 ml @ 0 mls/hr CONT PRN 12/21/20 11:30 12/26/20 10:28 DC 12/26/20 10:06 10 MLS/HR Heparin Sodium (Porcine) (Heparin Sodium) 2,500 unit 1X ONCE 12/27/20 12:15 12/27/20 12:19 DC 12/27/20 13:08 5,500 UNIT Heparin Sodium/ Sodium Chloride (HEPARIN for ARTERIAL LINE FLUSH) 1,000 unit 1X ONCE 12/27/20 12:15 12/27/20 12:19 DC 12/27/20 13:04 1,000 UNIT Hydralazine HCl (Apresoline) 25 mg TID 12/21/20 09:00 01/04/21 21:29 25 MG Hydromorphone HCl (Dilaudid) 0.5 mg PRN Q10MIN PRN 12/30/20 06:00 12/31/20 05:59 DC Info (PHARMACY MONITORING -- do not chart) 1 each PRN DAILY PRN 01/04/21 12:45 Insulin Glargine (Lantus Syringe) 15 unit QHS 12/20/20 22:00 01/03/21 13:14 DC 01/02/21 21:42 15 UNIT Insulin Human Lispro (HumaLOG) 0-7 UNITS TIDWMEALS 12/21/20 08:00 Iodixanol (Visipaque 320) 100 ml 1X ONCE 12/27/20 12:15 12/27/20 12:19 DC 12/27/20 13:04 30 ML Lactobacillus Rhamnosus (Culturelle) 1 cap BID 12/26/20 21:00 01/05/21 08:44 1 CAP Lidocaine HCl (Lidocaine 1% 20ml Vial) 20 ml STK-MED ONCE 12/30/20 07:50 12/30/20 19:07 DC Lidocaine HCl (Lidocaine Pf 2% Vial) 5 ml STK-MED ONCE 12/30/20 06:36 12/30/20 19:06 DC Lidocaine/ Epinephrine (LIDOCAINE 1%-EPI 1:100,000 Multi-Dose) 20 ml 1X ONCE 01/04/21 11:00 01/04/21 11:01 DC 01/04/21 10:51 14 ML Linezolid (Zyvox) 600 mg BID 12/25/20 09:00 01/02/21 09:10 DC 01/02/21 08:43 600 MG Linezolid/Dextrose 300 ml @ 300 mls/hr Q12HR 01/02/21 21:00 01/05/21 08:35 DC 01/04/21 21:27 300 MLS/HR Metoprolol Succinate (Toprol Xl) 25 mg DAILY 12/21/20 09:00 01/04/21 17:04 25 MG Midazolam HCl (Versed) 2 mg 1X ONCE 01/04/21 11:00 01/04/21 11:01 DC 01/04/21 10:50 1 MG Morphine Sulfate (Morphine Sulfate) 1 mg PRN Q10MIN PRN 12/30/20 06:00 12/31/20 05:59 DC Nystatin (Nystop) 1 luna BID 12/20/20 22:00 01/04/21 21:28 1 LUNA Ondansetron HCl (Zofran) 4 mg PRN Q6HRS PRN 12/20/20 21:45 01/05/21 00:48 4 MG Polyethylene Glycol (miraLAX PACKET) 17 gm PRN DAILY PRN 12/22/20 12:00 Potassium Chloride (Klor-Con) 40 meq DAILY 12/24/20 09:00 01/02/21 11:03 DC 01/01/21 08:47 40 MEQ Prochlorperazine Edisylate (Compazine) 5 mg PACU PRN PRN 12/30/20 06:00 12/31/20 05:59 DC Propofol (Diprivan) 200 mg STK-MED ONCE 12/30/20 07:56 12/30/20 19:08 DC Ringer's Solution 1,000 ml @ 30 mls/hr Q24H 12/30/20 06:00 12/30/20 17:59 DC 12/30/20 07:05 30 MLS/HR Sennosides (Senna) 17.2 mg PRN BID PRN 12/20/20 21:45 01/01/21 08:44 17.2 MG Sertraline HCl (Zoloft) 50 mg DAILY 12/21/20 09:00 01/04/21 17:02 50 MG Sodium Chloride 1,000 ml @ 400 mls/hr Q2H30M PRN 01/04/21 11:00 01/04/21 22:59 DC Lab Laboratory Tests Test 01/04/21 16:30 01/04/21 17:03 01/04/21 20:36 01/05/21 06:30 SARS-CoV-2 RNA (ROD) Negative (Negative) Glucose (Fingerstick) 79 mg/dL (70-99) 111 mg/dL (70-99) White Blood Count 7.3 x10^3/uL (4.0-11.0) Red Blood Count 2.62 x10^6/uL (4.30-5.70) Hemoglobin 7.7 g/dL (13.0-17.5) Hematocrit 23.7 % (39.0-53.0) Mean Corpuscular Volume 90 fL (79-100) Mean Corpuscular Hemoglobin 30 pg (25-35) Mean Corpuscular Hemoglobin Concent 33 g/dL (31-37) Red Cell Distribution Width 17.9 % (11.5-14.5) Platelet Count 86 x10^3/uL (140-400) Neutrophils (%) (Auto) 78 % (31-73) Lymphocytes (%) (Auto) 15 % (24-48) Monocytes (%) (Auto) 5 % (0-9) Eosinophils (%) (Auto) 1 % (0-3) Basophils (%) (Auto) 1 % (0-3) Neutrophils # (Auto) 5.7 x10^3/uL (1.8-7.7) Lymphocytes # (Auto) 1.1 x10^3/uL (1.0-4.8) Monocytes # (Auto) 0.4 x10^3/uL (0.0-1.1) Eosinophils # (Auto) 0.1 x10^3/uL (0.0-0.7) Basophils # (Auto) 0.1 x10^3/uL (0.0-0.2) Sodium Level 139 mmol/L (136-145) Potassium Level 4.8 mmol/L (3.5-5.1) Chloride Level 105 mmol/L (98-107) Carbon Dioxide Level 23 mmol/L (21-32) Anion Gap 11 (6-14) Blood Urea Nitrogen 54 mg/dL (8-26) Creatinine 3.5 mg/dL (0.7-1.3) Estimated GFR (Cockcroft-Gault) 17.3 Glucose Level 103 mg/dL (70-99) Calcium Level 8.3 mg/dL (8.5-10.1) Test 01/05/21 07:47 Glucose (Fingerstick) 108 mg/dL (70-99) Results All relevant outside records, renal labs, imaging studies, telemetry/EKG's were reviewed. Justicifation of Admission Dx: Justifications for Admission: Justification of Admission Dx: Yes BEATRIZ IBARRA MD Jan 05, 2021 09:03
--- NOTE | 2021-01-05 09:15 | PDOC ---
Date of Service: DATE: 01/05/21 TIME: 09:11 Subjective: Subjective: Scrambled eggs didn't look so great so he ordered an omelette. No bleeding. Supposed to dialyze today. Objective: Vital Signs: Vital Signs Date Time Temp Pulse Resp B/P (MAP) Pulse Ox O2 Delivery O2 Flow Rate FiO2 01/05/21 02:25 98.2 68 16 118/52 (74) 95 Room Air 98.2 01/04/21 11:06 2.0 Labs: Laboratory Tests Test 01/04/21 16:30 01/04/21 17:03 01/04/21 20:36 01/05/21 06:30 SARS-CoV-2 RNA (ROD) Negative Glucose (Fingerstick) 79 mg/dL 111 mg/dL White Blood Count 7.3 x10^3/uL Red Blood Count 2.62 x10^6/uL Hemoglobin 7.7 g/dL Hematocrit 23.7 % Mean Corpuscular Volume 90 fL Mean Corpuscular Hemoglobin 30 pg Mean Corpuscular Hemoglobin Concent 33 g/dL Red Cell Distribution Width 17.9 % Platelet Count 86 x10^3/uL Neutrophils (%) (Auto) 78 % Lymphocytes (%) (Auto) 15 % Monocytes (%) (Auto) 5 % Eosinophils (%) (Auto) 1 % Basophils (%) (Auto) 1 % Neutrophils # (Auto) 5.7 x10^3/uL Lymphocytes # (Auto) 1.1 x10^3/uL Monocytes # (Auto) 0.4 x10^3/uL Eosinophils # (Auto) 0.1 x10^3/uL Basophils # (Auto) 0.1 x10^3/uL Sodium Level 139 mmol/L Potassium Level 4.8 mmol/L Chloride Level 105 mmol/L Carbon Dioxide Level 23 mmol/L Anion Gap 11 Blood Urea Nitrogen 54 mg/dL Creatinine 3.5 mg/dL Estimated GFR (Cockcroft-Gault) 17.3 Glucose Level 103 mg/dL Calcium Level 8.3 mg/dL Test 01/05/21 07:47 Glucose (Fingerstick) 108 mg/dL PE: GEN: NAD LUNGS: CTAB HEART: RRR ABD: soft, non-tender NEURO/PSYCH: A & O 3 A/P: CKD/REBECCA/possible new ESRD - s/p tunneled HD cath CAD, A Fib - on ASA Thrombocytopenia - new/worse Chronic anemia, h/o - on H2 severiano QD PAD, s/p left heel debridement -- Plt count noted, will review any new GI recs w/ Dr. Humphreys. Justicifation of Admission Dx: Justifications for Admission: Justification of Admission Dx: Yes FABBY ROBERTSON Jan 05, 2021 09:15
[2021-01-05 11:00] VITALS: BP 103/42
--- NOTE | 2021-01-05 11:28 | PDOC ---
[employer] PROGRESS NOTE Date of Service DOS: DATE: 01/05/21 TIME: 11:24 Chief Complaint Chief Complaint Acute volume overload Acute on chronic CHF exacerbation Hypokalemia History of chronic kidney disease Normocytic anemia, possible chronic GI blood loss with EGD showing antral gastric ulcer Left lower extremity wound ulcer with dry gangrene Morbid obesity, OHS, suspect ROBB Severe protein malnutrition History of diabetes mellitus type 2 History of peripheral vascular disease History of atrial fibrillation History of bradycardia status post pacemaker placement History of peripheral vascular disease Hypertension Dyslipidemia Admit to medicine for further management Pending MRI of lower extremity today Appreciate vascular surgery recommendationwe will obtain MRI to determine level of possible amputation ID consulted IV Lasix drip started Strict I's and O's Echocardiogram from 07/16/2020 - normal left ventricular systolic function, EF 55 to 60%. No regional wall motion abnormalities noted, valvular aortic stenosis. Moderate tricuspid regurgitation with PAP 68 mmHg. Nephrology consult Cardiology consult Trend hemoglobin if less than 7 then transfuse 1 unit Eliquis for DVT prophylaxis Pepcid GI prophylaxis ADA diet Full code Discussed with RN and SW Disposition inpatient management as above Surrogate decision maker is Phuong Mathis History of Present Illness History of Present Illness 01/05/21 No acute events overnight. Permacath placed yesterday and patient tolerated procedure well and received hemodialysis. Hemodialysis again today. Improved creatinine to 3.5. No other concerns from nursing. Patient's chart, labs, images were reviewed and discussed with RN 01/04/2021 No acute events overnight. Patient seen and examined bedside. Creatinine increased to 4.0. No concerns from nursing at this time. Patient's chart, labs, images were reviewed and discussed with RN. 01/03/2021 No acute events overnight. Patient seen and examined bedside. Creatinine increased to 3.7. Pending further nephrology recommendations for possible HD. No urine output per nursing. Patient's chart, labs, images were reviewed and discussed with RN 01/02/2021 Afebrile, no acute events overnight. Kidney function slightly worse today despite gentle hydration, CR 3.5 (eGFR 17.3). Per nephrology, if no improvement in renal function may need to initiate HD. Continue IV fluids. Continue oral antibiotics for left calcaneal heel cellulitis. 01/01/2021 Afebrile, currently breathing on room air. Creatinine increased to 3.4 today, despite gentle hydration. Will need to discuss with nephrology. Will continue gentle hydration and close monitoring of kidney function. Echocardiogram from 07/16/2020 showed normal left ventricular systolic function, ejection fraction 55-60%; no regional wall motion abnormality, mildmoderate valvular aortic stenosis, mild much regurgitation, moderate tricuspid regurgitation with PAP 68 mmHg. Continue p.o. Augmentin and Zyvox for left calcaneal heel cellulitis. 12/31/2020 Afebrile, no acute events overnight. Wound care is addressing his heels this morning. Plan to have wound VAC placed prior to discharge. BUN 78, creatinine 3.1 today. Due to concerns of worsening renal function and concerns for lack of appropriate follow-up at [facility], will hold discharge today until kidney function can be addressed by nephrology, likely with gentle hydration and close monitoring of kidney function. These methods are being taken to attempt to avoid the need for renal replacement therapy in the future. Discussed with patient and , and they are agreeable to this plan. 12/30/2020 Afebrile, no new complaints today. Had left heel ulcer debridement today. I believe plan is to have wound VAC placed tomorrow. Continue antibiotics, per ID. He will need chcf once stable to discharge. Continue p.o. Lasix; continue gentle hydration and monitor kidney function. Creatinine 2.8, eGFR 22.3. 12/29/2020 Afebrile, breathing on room air. Plan is for elective debridement of the left heel ulcer tomorrow. Continue Augmentin and Zyvox, per ID. 12/28/2020 Afebrile, denies shortness of breath. Abdominal aortogram yesterday showed no significant aortoiliac disease bilaterally, isolated left posterior tibial artery occlusion with adequate two-vessel runoff to the distal foot and calcaneal area. Overall the patient is felt to have adequate runoff to the foot for further intervention with debridement of the left heel ulcer. I believe the plan is for elective debridement of left heel ulcer tomorrow. Discussed with RN. 12/27/2020 Afebrile, currently on room air. Off Lasix drip, currently Lasix 40 mg twice daily. Net positive fluid balance overnight, 510mL. Continue p.o. Augmentin and Zyvox. Aortogram pending today. 12/26/2020 No acute events overnight. Patient seen and examined bedside. -2.5 L output in the urine in the past 24 hours. No complaints from the patient. Pending aortogram with LLE runoff with vascular surgery. Follow-up 12/24/2020 Patient was seen and examined in room today. Awaiting plan from vascular/cardio on possible PCI/angio of LLE. Case discussed with RN and case management. Chart and specialist notes reviewed. 12/23/2020 No acute events overnight. Patient seen and examined bedside. Pedal edema has improved total of -2.3 L of urine output. Low potassium today will replace IV and p.o. Creatinine has also improved. Pending MRI versus CT of left lower extremity. Patient's chart, labs, images were reviewed and discussed with RN 12/22/2020 No acute events overnight patient seen and examined bedside. No significant we ight loss with Lasix drip. Will defer further fluid offloading with cardiology. Pending MRI and further vascular surgery recommendations for lower extremity foot ulcer. Patient's chart, labs, images were reviewed and discussed with RN 12/21/2020 No acute events overnight. Patient has adequate urine output and feels less fluid overload. Documented -580 cc. Patient's chart, labs, images were reviewed and discussed with RN 75 year old male who was sent here from [facility] for evaluation due to bilateral lower extremity swelling, worsening renal function. He has history of CHF, history of chronic renal failure. Patient was sent here by the MEDICAL STENOGRAPHER there today for evaluation of bilateral lower extremity swelling and increased renal function test. Patient denies any chest pain, denies any cough or fever. Patient does have trouble breathing with exertion. Patient says they told him to come here to be admitted so they can do colonoscopy because he has been anemic as well. Patient denies any rectal bleeding. His weight today is 147 kg Upon chart review patient was seen in November 04 09/12/2020 for GI bleed.. Eliquis was actually restarted on 11/09/2020. And also had a pacemaker placed on 11/09/2020 and tolerated procedure well. Patient also does follow-up with Dr. Chau with nephrology and his baseline creatinine appears to be between 1.8-2.0. Vitals/I&O Vitals/I&O: Vital Signs Date Time Temp Pulse Resp B/P (MAP) Pulse Ox O2 Delivery O2 Flow Rate FiO2 6/2/21 08:00 Room Air 01/05/21 07:00 97.8 72 18 118/49 (72) 92 97.8 01/04/21 11:06 2.0 I & O 0 01/04/21 01/04/21 01/05/21 15:00 23:00 07:00 Intake Total 700 ml Output Total 200 ml Balance 700 ml -200 ml Physical Exam Physical Exam: GENERAL: Alert, oriented gentleman, not in any distress. HEENT: Both pupils are round and reacting. No conjunctival lesion. No lesion in the mouth. NECK: Supple. RT Tunneled HDC LUNGS: Clear. HEART: S1, S2 regular. Pacer site clean ABDOMEN: Soft, nontender. No organomegaly. Obeses EXTREMITIES: Edema present bilaterally, wound VAC in place not taken down NEUROLOGIC: The patient is alert, awake, and appropriate. No focal neurologic deficit. General: Alert, Oriented X3, Cooperative, No acute distress Heart: Other (2/6 sysotlic murmur, IRRR- tele AFIB. int V pacing ) Lungs: Clear, Other Abdomen: Soft Extremities: Other (2-3+ bilateral LE edema, anasarca ) Skin: No significant lesion Labs Labs: Laboratory Tests Test 01/04/21 16:30 01/04/21 17:03 01/04/21 20:36 01/05/21 06:30 SARS-CoV-2 RNA (ROD) Negative (Negative) Glucose (Fingerstick) 79 mg/dL (70-99) 111 mg/dL (70-99) White Blood Count 7.3 x10^3/uL (4.0-11.0) Red Blood Count 2.62 x10^6/uL (4.30-5.70) Hemoglobin 7.7 g/dL (13.0-17.5) Hematocrit 23.7 % (39.0-53.0) Mean Corpuscular Volume 90 fL (79-100) Mean Corpuscular Hemoglobin 30 pg (25-35) Mean Corpuscular Hemoglobin Concent 33 g/dL (31-37) Red Cell Distribution Width 17.9 % (11.5-14.5) Platelet Count 86 x10^3/uL (140-400) Neutrophils (%) (Auto) 78 % (31-73) Lymphocytes (%) (Auto) 15 % (24-48) Monocytes (%) (Auto) 5 % (0-9) Eosinophils (%) (Auto) 1 % (0-3) Basophils (%) (Auto) 1 % (0-3) Neutrophils # (Auto) 5.7 x10^3/uL (1.8-7.7) Lymphocytes # (Auto) 1.1 x10^3/uL (1.0-4.8) Monocytes # (Auto) 0.4 x10^3/uL (0.0-1.1) Eosinophils # (Auto) 0.1 x10^3/uL (0.0-0.7) Basophils # (Auto) 0.1 x10^3/uL (0.0-0.2) Sodium Level 139 mmol/L (136-145) Potassium Level 4.8 mmol/L (3.5-5.1) Chloride Level 105 mmol/L (98-107) Carbon Dioxide Level 23 mmol/L (21-32) Anion Gap 11 (6-14) Blood Urea Nitrogen 54 mg/dL (8-26) Creatinine 3.5 mg/dL (0.7-1.3) Estimated GFR (Cockcroft-Gault) 17.3 Glucose Level 103 mg/dL (70-99) Calcium Level 8.3 mg/dL (8.5-10.1) Test 01/05/21 07:47 Glucose (Fingerstick) 108 mg/dL (70-99) Assessment and Plan Assessmemt and Plan Problems Medical Problems: (1) Anemia Status: Acute (2) CHF exacerbation Status: Acute Comment Review of Relevant I have reviewed the following items mara (where applicable) has been applied. Justifications for Admission Other Justification CHF exacerbation KANNAN NELSON MD Jan 05, 2021 11:28
[2021-01-05] MEDS ORDERED: IV NORMAL SALINE 1000ML BAG 1,000 ML IV PRN ×2 (11:45)
[2021-01-05] MEDS ORDERED: DIALYSIS PATIENT. MC PRN ×2 (11:45)
[2021-01-05] MEDS ORDERED: ALBUMIN HUMAN 25% 200 ML IV PRN (11:45)
--- NOTE | 2021-01-05 13:59 | NUR ---
SS following up with discharge planning. SS reviewed pt chart and discussed with pt RN. Pt is currently on room air. COVID19 negative. Wound vac in place. Pt now needing outpatient dialysis set up. SS phoned and faxed referral to [facility], ; fax [phone]. Pt has tentative chair time at [facility], ; fax [phone], Sunday, Sunday, and Sunday. SS currently awaiting confirmed chair time. PT/OT recommended correction unit. Pt accepted at [facility], ; fax [phone]. SS will continue to follow for discharge planning.
--- NOTE | 2021-01-05 14:02 | PDOC ---
FRAN COLMENARES STAFF REGISTERED NURSE 01/05/21 1402: CARDIO Progress Notes Date and Time Date of Service 01/05/2021 Time of Evaluation 1450 Subjective Subjective: No Chest Pain, No shortness of breath, No Palpitations Vitals Vitals Vital Signs Date Time Temp Pulse Resp B/P (MAP) Pulse Ox O2 Delivery O2 Flow Rate FiO2 01/05/21 11:00 97.8 60 18 103/42 (62) 91 Room Air 97.8 01/04/21 11:06 2.0 Weight Weight [ ] Input and Output Intake and Output Intake and Output 01/05/21 07:00 Intake Total 700 ml Output Total 200 ml Balance 500 ml Intake Oral 400 ml IV Total 300 ml Output Urine Total 200 ml # Voids 2 # Bowel Movements 3 Laboratory Labs Laboratory Tests Test 01/04/21 16:30 01/04/21 17:03 01/04/21 20:36 01/05/21 06:30 SARS-CoV-2 RNA (ROD) Negative (Negative) Glucose (Fingerstick) 79 mg/dL (70-99) 111 mg/dL (70-99) White Blood Count 7.3 x10^3/uL (4.0-11.0) Red Blood Count 2.62 x10^6/uL (4.30-5.70) Hemoglobin 7.7 g/dL (13.0-17.5) Hematocrit 23.7 % (39.0-53.0) Mean Corpuscular Volume 90 fL (79-100) Mean Corpuscular Hemoglobin 30 pg (25-35) Mean Corpuscular Hemoglobin Concent 33 g/dL (31-37) Red Cell Distribution Width 17.9 % (11.5-14.5) Platelet Count 86 x10^3/uL (140-400) Neutrophils (%) (Auto) 78 % (31-73) Lymphocytes (%) (Auto) 15 % (24-48) Monocytes (%) (Auto) 5 % (0-9) Eosinophils (%) (Auto) 1 % (0-3) Basophils (%) (Auto) 1 % (0-3) Neutrophils # (Auto) 5.7 x10^3/uL (1.8-7.7) Lymphocytes # (Auto) 1.1 x10^3/uL (1.0-4.8) Monocytes # (Auto) 0.4 x10^3/uL (0.0-1.1) Eosinophils # (Auto) 0.1 x10^3/uL (0.0-0.7) Basophils # (Auto) 0.1 x10^3/uL (0.0-0.2) Sodium Level 139 mmol/L (136-145) Potassium Level 4.8 mmol/L (3.5-5.1) Chloride Level 105 mmol/L (98-107) Carbon Dioxide Level 23 mmol/L (21-32) Anion Gap 11 (6-14) Blood Urea Nitrogen 54 mg/dL (8-26) Creatinine 3.5 mg/dL (0.7-1.3) Estimated GFR (Cockcroft-Gault) 17.3 Glucose Level 103 mg/dL (70-99) Calcium Level 8.3 mg/dL (8.5-10.1) Test 01/05/21 07:47 Glucose (Fingerstick) 108 mg/dL (70-99) Review of Systems Constitutional: yes: alert, oriented Ears/Nose/Throat: Yes: no symptom reported Eyes: Yes: no symptom reported Pulmonary: Yes dyspnea Cardiovascular: Yes no symptom reported Gastrointestional: Yes: no symptom reported Genitourinary: Yes: no symptom reported Musculoskeletal: Yes: no symptom reported Skin: Yes no symptom reported Psychiatric/Neurological: Yes: no symptom reported Physical Exam HEENT: Neck Supple W Full Motion Chest: Symmetric LUNGS: Other (diminished ) Heart: irregularly irregular (AFIB) Abdomen: Soft N/T Extremities: Other (anasarca) Neurology: alert, oriented, follow commands Assessment Assessment 1. Anasarca 2. Acute on chronic diastolic CHF; Echo 07/25 with preserved LV systolic function. on Lasix gtt. UOP better 3. Anemia with h/o GIB with cauterization of bleeding antral ulcer. s/p transfusion. no obvious bleeding. Hgb at 7.7 4. CAD; s/p PCI/RHEA to LAD in 2019. clinically stable, CP free. 5. PAD s/p past orbital atherectomy/[employer]GER to right posterior tibial artery. S/P left foot debridement, wound vac in place. Noted adequate LLE perfusion per aortogram 6. Permanent AFIB; rate controlled on BB 7. SSS; s/p PPM ([employer]). intermittent v-pacing. recent device check with normal function 8. Hypertension; controlled 9. Hyperlipidemia; statin 10. Diabetes, II; as per IM 11. REBECCA on CKD; potentially new ESRD, nephrology following 12. Valvular disease; mild to moderate aortic stenosis 13. Protein calorie malnutrition 14. Hyperkalemia: better Recommendations Fluid off loading per HD today Secondary prevention Metoprolol for rate control. Continue ASA OAC on hold with anemia, recent GIB Local wound care Supportive care Justicifation of Admission Dx: Justifications for Admission: Justification of Admission Dx: Yes DICK LAZO MD 01/05/211955: CARDIO Progress Notes Assessment Assessment Patient seen and examined. Agree with COOK SHORT ORDER's assessment and plan. Continue fluid removal with HD per nephrology team CAD and PAD clinically stable Perm AF rate controlled SSS s/p PPM stable He is probably poor correction AC candidate We will consider outpatient referral for FRAN ALMONTE APRN Jan 05, 2021 14:02 DICK LAZO MD Jan 05, 2021 19:56
[2021-01-05 15:00] VITALS: BP 126/51
[2021-01-05] MEDS: METOPROLOL SUCC 24HR ER 25 MG TAB.ER.24H. PO SCH (17:02)
[2021-01-05] MEDS: SERTRALINE 50 MG TABLET. PO SCH (17:03)
[2021-01-05] MEDS: ASPIRIN ENTERIC COATED 81 MG TABLET.DR. PO SCH (17:03)
[2021-01-05] MEDS: AMOXICILLIN/K CLAV 500/125MG TABLET. PO SCH (17:04)
[2021-01-05] MEDS: NYSTATIN TOPICAL POWDER 15GM BOTTLE. TP SCH ×2 (17:04→20:52)
[2021-01-05] MEDS: DOXYCYCLINE HYCLATE 100 MG TABLET PO SCH ×2 (17:10→20:52)
[2021-01-05 19:29] VITALS: BP 128/56
[2021-01-05] MEDS: ATORVASTATIN CALCIUM 40 MG TABLET. PO SCH (20:52)
[2021-01-05 22:22] VITALS: BP 122/60
[2021-01-06] VITALS (7 sets, daily range): BP systolic 111–139; BP diastolic 52–63
[2021-01-06 00:08] LABS: HEP B SURFACE AG Confirm. indicated (Negative)
--- NOTE | 2021-01-06 07:45 | PDOC ---
G I PROGRESS NOTE Reason for Follow-up Anemia/nausea Subjective Poor appetite persists Physical Exam Lungs decreased BS CV S1 S2 ABD rotund, +BS, soft Review of Relevant I have reviewed the following items mara (where applicable) has been applied. Labs Laboratory Tests Test 01/04/21 07:58 01/04/21 08:35 01/04/21 16:30 01/04/21 17:03 Glucose (Fingerstick) 99 mg/dL (70-99) 79 mg/dL (70-99) Prothrombin Time 17.4 SEC (11.7-14.0) Prothromb Time International Ratio 1.5 (0.8-1.1) Activated Partial Thromboplast Time 37 SEC (24-38) SARS-CoV-2 RNA (ROD) Negative (Negative) Test 01/04/21 20:36 01/05/21 06:30 01/05/21 07:47 01/05/21 17:28 Glucose (Fingerstick) 111 mg/dL (70-99) 108 mg/dL (70-99) 85 mg/dL (70-99) White Blood Count 7.3 x10^3/uL (4.0-11.0) Red Blood Count 2.62 x10^6/uL (4.30-5.70) Hemoglobin 7.7 g/dL (13.0-17.5) Hematocrit 23.7 % (39.0-53.0) Mean Corpuscular Volume 90 fL (79-100) Mean Corpuscular Hemoglobin 30 pg (25-35) Mean Corpuscular Hemoglobin Concent 33 g/dL (31-37) Red Cell Distribution Width 17.9 % (11.5-14.5) Platelet Count 86 x10^3/uL (140-400) Neutrophils (%) (Auto) 78 % (31-73) Lymphocytes (%) (Auto) 15 % (24-48) Monocytes (%) (Auto) 5 % (0-9) Eosinophils (%) (Auto) 1 % (0-3) Basophils (%) (Auto) 1 % (0-3) Neutrophils # (Auto) 5.7 x10^3/uL (1.8-7.7) Lymphocytes # (Auto) 1.1 x10^3/uL (1.0-4.8) Monocytes # (Auto) 0.4 x10^3/uL (0.0-1.1) Eosinophils # (Auto) 0.1 x10^3/uL (0.0-0.7) Basophils # (Auto) 0.1 x10^3/uL (0.0-0.2) Sodium Level 139 mmol/L (136-145) Potassium Level 4.8 mmol/L (3.5-5.1) Chloride Level 105 mmol/L (98-107) Carbon Dioxide Level 23 mmol/L (21-32) Anion Gap 11 (6-14) Blood Urea Nitrogen 54 mg/dL (8-26) Creatinine 3.5 mg/dL (0.7-1.3) Estimated GFR (Cockcroft-Gault) 17.3 Glucose Level 103 mg/dL (70-99) Calcium Level 8.3 mg/dL (8.5-10.1) Laboratory Tests Test 01/05/21 07:47 01/05/21 17:28 Glucose (Fingerstick) 108 mg/dL (70-99) 85 mg/dL (70-99) Medications Current Medications Apixaban (Eliquis) 2.5 mg BID PO Last administered on 12/21/20at 09:00; Start 12/20/20 at 22:00; Stop 12/21/20 at 13:36; Status DC Atorvastatin Calcium (Lipitor) 40 mg HS PO Last administered on 01/05/21at 20:52; Start 12/20/20 at 22:00 Buspirone HCl (Buspar) 10 mg PRN DAILY PRN PO ANXIETY / AGITATION Last ad ministered on 01/05/21at 00:44; Start 12/20/20 at 21:45 Famotidine (Pepcid) 20 mg DAILY PO Last administered on 01/05/21at 08:44; Start 12/21/20 at 09:00 Hydralazine HCl (Apresoline) 25 mg TID PO Last administered on 01/05/21at 20:52; Start 12/21/20 at 09:00 Insulin Glargine (Lantus Syringe) 15 unit QHS SQ Last administered on 01/02/21at 21:42; Start 12/20/20 at 22:00; Stop 01/03/21 at 13:14; Status DC Metoprolol Succinate (Toprol Xl) 25 mg DAILY PO Last administered on 01/05/21 17:02; Start 12/21/20 at 09:00 Nystatin (Nystop) 1 daniela BID TP Last administered on 01/05/21at 20:52; Start 12/20/20 at 22:00 Sennosides (Senna) 8.6 mg PRN BID PRN PO CONSTIPATION 1ST CHOICE; Start 12/20/20 at 21:45; Stop 12/20/20 at 21:52; Status DC Sertraline HCl (Zoloft) 50 mg DAILY PO Last administered on 01/05/21 17:03; Start 12/21/20 at 09:00 Ascorbic Acid (Vitamin C) 500 mg BID PO Last administered on 01/05/21 20:52; Start 12/20/20 at 22:00 Furosemide (Lasix) 40 mg 1X ONCE IVP Last administered on 12/20/20at 23:03; Start 12/20/20 at 21:45; Stop 12/20/20 at 21:46; Status DC Sennosides (Senna) 17.2 mg PRN BID PRN PO CONSTIPATION, 2ND CHOICE Last admini stered on 01/01/21at 08:44; Start 12/20/20 at 21:45 Docusate Sodium (Colace) 100 mg PRN DAILY PRN PO HARD STOOLS; Start 12/20/20 at 21:45 Ondansetron HCl (Zofran) 4 mg PRN Q6HRS PRN IVP NAUSEA/VOMITING Last administered on 01/05/21at 17:10; Start 12/20/20 at 21:45 Insulin Human Lispro (HumaLOG) 0-7 UNITS TIDWMEALS SQ ; Start 12/21/20 at 08:00 Dextrose (Dextrose 50%-Water Syringe) 12.5 gm PRN Q15MIN PRN IV SEE COMMENTS; Start 12/20/20 at 21:45 Acetaminophen (Tylenol) 650 mg PRN Q4HRS PRN PO TEMP OVER 100.4F OR MILD PAIN Last administered on 01/04/21at 21:27; Start 12/20/20 at 21:45 Furosemide 100 mg/ Sodium Chloride 100 ml @ 0 mls/hr CONT PRN IV SEE I/O RECORD Last administered on 12/26/20at 10:06; Start 12/21/20 at 11:30; Stop 12/26/20 at 10:28; Status DC Potassium Chloride (Klor-Con) 20 meq 1X ONCE PO Last administered on 12/21/20at 14:02; Start 12/21/20 at 12:15; Stop 12/21/20 at 12:16; Status DC Potassium Chloride (Klor-Con) 40 meq 1X ONCE PO Last administered on 12/22/20at 08:39; Start 12/22/20 at 08:30; Stop 12/22/20 at 08:31; Status DC Ferrous Sulfate (Iron Oral Solution) 300 mg BIDWMEALS PO Last administered on 12/24/20at 08:54; Start 12/22/20 at 17:00; Stop 12/24/20 at 11:08; Status DC Polyethylene Glycol (miraLAX PACKET) 17 gm PRN DAILY PRN PO CONSTIPATION, 1ST CHOICE; Start 12/22/20 at 12:00 Potassium Chloride (Klor-Con) 40 meq 1X ONCE PO Last administered on 12/23/20at 06:54; Start 12/23/20 at 07:00; Stop 12/23/20 at 07:01; Status DC Potassium Chloride (Klor-Con) 40 meq 1X ONCE PO Last administered on 12/23/20at 08:54; Start 12/23/20 at 09:00; Stop 12/23/20 at 09:01; Status DC Potassium Chloride (Klor-Con) 40 meq DAILY PO Last administered on 01/01/21at 08:47; Start 12/24/20 at 09:00; Stop 01/02/21 at 11:03; Status DC Ferrous Sulfate (Feosol) 325 mg BIDWMEALS PO Last administered on 01/05/21at 17:10; Start 12/24/20 at 17:00 Linezolid (Zyvox) 600 mg BID PO Last administered on 01/02/21at 08:43; Start 12/25/20 at 09:00; Stop 01/02/21 at 09:10; Status DC Amoxicillin/ Clavulanate Potassium (Augmentin 875/ 125mg) 1 tab BID PO Last administered on 12/31/20at 08:29; Start 12/25/20 at 09:00; Stop 12/31/20 at 08:43; Status DC Furosemide (Lasix) 40 mg BID94 PO Last administered on 12/30/20at 08:58; Start 12/26/20 at 10:30; Stop 12/30/20 at 11:38; Status DC Lactobacillus Rhamnosus (Culturelle) 1 cap BID PO Last administered on 01/05/21at 20:52; Start 12/26/20 at 21:00 Iodixanol (Visipaque 320) 100 ml STK-MED ONCE .ROUTE ; Start 12/27/20 at 10:35; Stop 12/27/20 at 10:35; Status DC Lidocaine HCl (Lidocaine 1% 20ml Vial) 20 ml STK-MED ONCE .ROUTE ; Start 12/27/20 at 10:35; Stop 12/27/20 at 10:35; Status DC Heparin Sodium/ Sodium Chloride 1,000 ml @ As Directed STK-MED ONCE .ROUTE ; Start 12/27/20 at 10:35; Stop 12/27/20 at 10:35; Status DC Midazolam HCl (Versed) 5 mg STK-MED ONCE .ROUTE ; Start 12/27/20 at 11:40; Stop 12/27/20 at 11:40; Status DC Fentanyl Citrate (Fentanyl 2ml Vial) 100 mcg STK-MED ONCE .ROUTE ; Start 12/27/20 at 11:40; Stop 12/27/20 at 11:40; Status DC Heparin Sodium (Porcine) (Heparin Sodium) 10,000 unit STK-MED ONCE .ROUTE ; Start 12/27/20 at 11:40; Stop 12/27/20 at 11:40; Status DC Heparin Sodium/ Sodium Chloride (HEPARIN for ARTERIAL LINE FLUSH) 1,000 unit 1X ONCE IART Last administered on 12/27/20at 13:04; Start 12/27/20 at 12:15; Stop 12/27/20 at 12:19; Status DC Heparin Sodium/ Sodium Chloride (HEPARIN for ARTERIAL LINE FLUSH) 1,000 unit 1X ONCE IART Last administered on 12/27/20at 13:04; Start 12/27/20 at 12:15; Stop 12/27/20 at 12:19; Status DC Midazolam HCl (Versed) 5 mg 1X ONCE IV Last administered on 12/27/20at 13:05; Start 12/27/20 at 12:15; Stop 12/27/20 at 12:19; Status DC Fentanyl Citrate (Fentanyl 2ml Vial) 100 mcg 1X ONCE IV Last administered on 12/27/20at 13:06; Start 12/27/20 at 12:15; Stop 12/27/20 at 12:19; Status DC Iodixanol (Visipaque 320) 100 ml 1X ONCE IART Last administered on 12/27/20at 13:04; Start 12/27/20 at 12:15; Stop 12/27/20 at 12:19; Status DC Heparin Sodium (Porcine) (Heparin Sodium) 2,500 unit 1X ONCE IV Last administered on 12/27/20at 13:08; Start 12/27/20 at 12:15; Stop 12/27/20 at 12:19; Status DC Lidocaine HCl (Lidocaine 1% 20ml Vial) 20 ml 1X ONCE INJ Last administered on 12/27/20at 13:04; Start 12/27/20 at 12:15; Stop 12/27/20 at 12:19; Status DC Fentanyl Citrate (Fentanyl 2ml Vial) 25 mcg PRN Q5MIN PRN IVP MILD PAIN 1-3; Start 12/30/20 at 06:00; Stop 12/31/20 at 05:59; Status DC Fentanyl Citrate (Fentanyl 2ml Vial) 50 mcg PRN Q5MIN PRN IVP MODERATE PAIN 4- 6; Start 12/30/20 at 06:00; Stop 12/31/20 at 05:59; Status DC Morphine Sulfate (Morphine Sulfate) 1 mg PRN Q10MIN PRN IVP SEVERE PAIN 7-10; Start 12/30/20 at 06:00; Stop 12/31/20 at 05:59; Status DC Ringer's Solution 1,000 ml @ 30 mls/hr Q24H IV Last administered on 12/30/20at 07:05; Start 12/30/20 at 06:00; Stop 12/30/20 at 17:59; Status DC Hydromorphone HCl (Dilaudid) 0.5 mg PRN Q10MIN PRN IVP SEVERE PAIN 7-10, 2nd CHOICE; Start 12/30/20 at 06:00; Stop 12/31/20 at 05:59; Status DC Prochlorperazine Edisylate (Compazine) 5 mg PACU PRN PRN IVP NAUSEA, MRX1; Start 12/30/20 at 06:00; Stop 12/31/20 at 05:59; Status DC Cefazolin Sodium/ Dextrose 50 ml @ 100 mls/hr 1X ONCE IV Last administered on 12/30/20at 07:20; Start 12/30/20 at 08:00; Stop 12/30/20 at 08:29; Status DC Sodium Chloride 500 ml @ 75 mls/hr 1X ONCE IV Last administered on 12/30/20at 17:44; Start 12/30/20 at 18:00; Stop 12/31/20 at 00:39; Status DC Propofol (Diprivan) 200 mg STK-MED ONCE IV ; Start 12/30/20 at 06:36; Stop 12/30/20 at 19:06; Status DC Lidocaine HCl (Lidocaine Pf 2% Vial) 5 ml STK-MED ONCE .ROUTE ; Start 12/30/20 at 06:36; Stop 12/30/20 at 19:06; Status DC Lidocaine HCl (Lidocaine 1% 20ml Vial) 20 ml STK-MED ONCE .ROUTE ; Start 12/30/20 at 07:50; Stop 12/30/20 at 19:07; Status DC Propofol (Diprivan) 200 mg STK-MED ONCE IV ; Start 12/30/20 at 07:56; Stop 12/30/20 at 19:08; Status DC Amoxicillin/ Clavulanate Potassium (Augmentin 500/ 125mg) 1 tab BID PO ; Start 12/31/20 at 09:00; Stop 12/31/20 at 09:10; Status DC Amoxicillin/ Clavulanate Potassium (Augmentin 500/ 125mg) 1 tab BID PO Last ad ministered on 01/04/21at 21:27; Start 12/31/20 at 21:00; Stop 01/05/21 at 15:34; Status DC Sodium Chloride 1,000 ml @ 75 mls/hr 1X ONCE IV Last administered on 12/31/20at 11:27; Start 12/31/20 at 11:30; Stop 01/01/21 at 00:49; Status DC Aspirin (Ecotrin) 81 mg [id number] PO Last administered on 01/05/21at 17:03; Start 01/01/21 at 08:00 Sodium Chloride 1,000 ml @ 75 mls/hr [id number] IV Last administered on 01/03/21at 05:20; Start 01/01/21 at 12:00; Stop 01/03/21 at 12:55; Status DC Linezolid/Dextrose 300 ml @ 300 mls/hr Q12HR IV Last administered on 01/04/21at 21:27; Start 01/02/21 at 21:00; Stop 01/05/21 at 08:35; Status DC Lidocaine/ Epinephrine (LIDOCAINE 1%-EPI 1:100,000 Multi-Dose) 20 ml STK-MED ONCE .ROUTE ; Start 01/04/21 at 10:00; Stop 01/04/21 at 10:00; Status DC Midazolam HCl (Versed) 2 mg STK-MED ONCE .ROUTE ; Start 01/04/21 at 10:31; Stop 01/04/21 at 10:31; Status DC Fentanyl Citrate (Fentanyl 2ml Vial) 100 mcg STK-MED ONCE .ROUTE ; Start 01/04/21 at 10:31; Stop 01/04/21 at 10:31; Status DC Cefazolin Sodium/ Dextrose 50 ml @ As Directed STK-MED ONCE IV ; Start 01/04/21 at 10:31; Stop 01/04/21 at 10:31; Status DC Midazolam HCl (Versed) 2 mg 1X ONCE IV Last administered on 01/04/21at 10:50; Start 01/04/21 at 11:00; Stop 01/04/21 at 11:01; Status DC Fentanyl Citrate (Fentanyl 2ml Vial) 100 mcg 1X ONCE IV Last administered on 01/04/21at 10:50; Start 01/04/21 at 11:00; Stop 01/04/21 at 11:01; Status DC Lidocaine/ Epinephrine (LIDOCAINE 1%-EPI 1:100,000 Multi-Dose) 20 ml 1X ONCE SQ Last administered on 01/04/21at 10:51; Start 01/04/21 at 11:00; Stop 01/04/21 at 11:01; Status DC Cefazolin Sodium/ Dextrose 50 ml @ 100 mls/hr 1X ONCE IV Last administered on 01/04/21at 10:50; Start 01/04/21 at 11:00; Stop 01/04/21 at 11:29; Status DC Sodium Chloride 1,000 ml @ 1,000 mls/hr Q1H PRN IV hypotension; Start 01/04/21 at 11:00; Stop 01/04/21 at 16:59; Status DC Albumin Human 200 ml @ 200 mls/hr 1X PRN PRN IV Hypotension; Start 01/04/21 at 11:00; Stop 01/04/21 at 16:59; Status DC Sodium Chloride 1,000 ml @ 400 mls/hr Q2H30M PRN IV PATENCY; Start 01/04/21 at 11:00; Stop 01/04/21 at 22:59; Status DC Info (PHARMACY MONITORING -- do not chart) 1 each PRN DAILY PRN MC SEE COMMENTS; Start 01/04/21 at 12:45; Status UNV Info (PHARMACY MONITORING -- do not chart) 1 each PRN DAILY PRN MC SEE COMMENTS; Start 01/04/21 at 12:45; Stop 01/05/21 at 15:39; Status DC Doxycycline Hyclate (Vibra-Tab) 100 mg BID PO Last administered on 01/05/21at 20:52; Start 01/05/21 at 09:00 Sodium Chloride 1,000 ml @ 1,000 mls/hr Q1H PRN IV hypotension; Start 01/05/21 at 11:45; Stop 01/05/21 at 17:44; Status DC Albumin Human 200 ml @ 200 mls/hr 1X PRN PRN IV Hypotension; Start 01/05/21 at 11:45; Stop 01/05/21 at 17:44; Status DC Sodium Chloride 1,000 ml @ 400 mls/hr Q2H30M PRN IV PATENCY; Start 01/05/21 at 11:45; Stop 01/05/21 at 23:44; Status DC Info (PHARMACY MONITORING -- do not chart) 1 each PRN DAILY PRN MC SEE COMMENTS; Start 01/05/21 at 11:45; Status UNV Info (PHARMACY MONITORING -- do not chart) 1 each PRN DAILY PRN MC SEE COMMENTS; Start 01/05/21 at 11:45 Amoxicillin/ Clavulanate Potassium (Augmentin 500/ 125mg) 1 tab DAILY PO Last administered on 01/05/21at 17:04; Start 01/06/21 at 09:00 Active Scripts Active Lantus (Insulin Glargine,Hum.rec.anlog) 100 Unit/1 Ml Vial 15 Unit SQ QHS 30 Days Famotidine 20 Mg Tablet 20 Mg PO DAILY 30 Days Acetaminophen Supp (Acetaminophen) 650 Mg Supp.rect 650 Mg RI PRN Q4HRS PRN 30 Days Hydralazine Hcl 25 Mg Tablet 25 Mg PO TID 30 Days Reported Tylenol (Acetaminophen) 325 Mg Tablet 1-2 Tab PO QID Vitamin C (Ascorbic Acid) 500 Mg Capsule 500 Mg PO BID Senokot (Sennosides) 8.6 Mg Tablet 1 Tab PO BID PRN 20 Days Potassium Chloride 20 Meq Tablet.er 20 Meq PO DAILY Nystatin 15 Gm Powder 1 Daniela TP BID 7 Days apply to affected area(s) Lasix (Furosemide) 40 Mg Tablet 40 Mg PO BIDBFRMEAL Zoloft (Sertraline Hcl) 50 Mg Tablet 50 Mg PO DAILY Metoprolol Succinate ( Xl ) (Metoprolol Succinate) 25 Mg Tab.er.24h 25 Mg PO DAILY Eliquis (Apixaban) 5 Mg Tablet 2.5 Mg PO BID Slow Release Iron (Ferrous Sulfate) 160 Mg Tablet.er 160 Mg PO DAILY Buspirone Hcl 10 Mg Tablet 1 Tab PO PRN DAILY PRN Atorvastatin Calcium 40 Mg Tablet 40 Mg PO HS Vitals/I & O Vital Sign - Last 24 Hours 01/05/21 01/05/21 01/05/21 01/05/21 08:00 11:00 15:00 17:02 Temp 97.8 97.3 97.8 97.3 Pulse 60 62 62 Resp 18 18 B/P (MAP) 103/42 (62) 126/51 (76) 126/51 Pulse Ox 91 93 O2 Delivery Room Air Room Air Room Air 01/05/21 01/05/21 01/05/21 01/05/21 17:04 19:29 20:00 20:52 Temp 98.2 98.2 Pulse 68 63 63 Resp 18 B/P (MAP) 124/51 128/56 (80) 128/56 Pulse Ox 92 O2 Delivery Room Air Room Air 01/05/21 01/06/21 22:22 02:23 Temp 98.1 98.5 98.1 98.5 Pulse 62 62 Resp 18 18 B/P (MAP) 122/60 (80) 131/59 (83) Pulse Ox 92 91 O2 Delivery Room Air Room Air Intake and Output 01/05/21 01/05/21 01/06/21 15:00 23:00 07:00 Intake Total 120 ml 450 ml 100 ml Balance 120 ml 450 ml 100 ml Problem List Problems Medical Problems: (1) Anemia Status: Acute (2) CHF exacerbation Status: Acute Assessment CHronic illness anemia- with ESRD, hemodialysis started, CPM, Hg stable Justicifation of Admission Dx: Justifications for Admission: Justification of Admission Dx: Yes PHILLIP FLETCHER MD Jan 06, 2021 07:45
[2021-01-06] MEDS: INSULIN LISPRO 300 UNITS/3 ML VIAL. SQ SCH ×3 (08:00→17:00)
[2021-01-06] MEDS: FERROUS SULFATE 325 MG TABLET. PO SCH ×2 (08:19→18:17)
[2021-01-06] MEDS: LACTOBACILLUS RHAMNOSUS GG 1 CAPSULE. PO SCH ×2 (08:19→22:06)
[2021-01-06] MEDS: FAMOTIDINE 20 MG TABLET. PO SCH (08:20)
[2021-01-06] MEDS: SERTRALINE 50 MG TABLET. PO SCH (08:20)
[2021-01-06] MEDS: ASCORBIC ACID 500 MG TABLET PO SCH ×2 (08:20→22:06)
[2021-01-06] MEDS: hydrALAZINE 25 MG TABLET PO SCH ×3 (08:20→22:06)
[2021-01-06] MEDS: DOXYCYCLINE HYCLATE 100 MG TABLET PO SCH ×2 (08:21→22:06)
[2021-01-06] MEDS: METOPROLOL SUCC 24HR ER 25 MG TAB.ER.24H. PO SCH (08:21)
[2021-01-06] MEDS: NYSTATIN TOPICAL POWDER 15GM BOTTLE. TP SCH ×2 (08:23→22:06)
--- NOTE | 2021-01-06 08:34 | PDOC ---
Infectious Disease Note Subjective: Subjective Patient without complaints this morning Underwent RT Tunneled HDC yesterday and dialysis session yesterday Appetite remains poor Nausea has improved somewhat Vital Signs: Vital Signs Vital Signs Date Time Temp Pulse Resp B/P (MAP) Pulse Ox O2 Delivery O2 Flow Rate FiO2 01/06/21 08:21 62 128/54 01/06/21 07:00 98.1 18 92 Room Air 98.1 Physical Exam: PHYSICAL EXAM GENERAL: Alert, oriented gentleman, not in any distress. HEENT: Both pupils are round and reacting. No conjunctival lesion. No lesion in the mouth. NECK: Supple. RT Tunneled HDC LUNGS: Clear. HEART: S1, S2 regular. Pacer site clean ABDOMEN: Soft, nontender. No organomegaly. Obeses EXTREMITIES: Edema present bilaterally, wound VAC in place not taken down NEUROLOGIC: The patient is alert, awake, and appropriate. No focal neurologic deficit. Medications: Inpatient Meds: Medications reviewed. Labs: Lab Laboratory Tests Test 01/05/21 17:28 01/06/21 07:56 Glucose (Fingerstick) 85 mg/dL (70-99) 74 mg/dL (70-99) Objective: Assessment: 1. Left calcaneal black eschar. MRI neg for osteo R heel wound - Cellulitis is better 12/30 s/p Left heel excisional debridement subcutaneous tissue and skin Wound pictures reviewed, mild slough area present 2. Peripheral arterial disease. 3. Left big toe ulcer. 4. Obesity. 5. Diabetes. 6. Hypertension. 7. Congestive heart failure. 8. Renal insufficiency. On HD 9. Sulfa allergy 10. Nausea could be drug-induced improved Thrombocytopenia Plan: Plan of Care Continue Augmentin Continue doxycycline 01/05, was on linezolid Maintain aspiration precaution cont off load Wound /Vac care per wound team Discussed with nursing staff AMADOR ROSA MD Jan 06, 2021 08:34
[2021-01-06 09:15] LABS: BASO # 0.1 x10^3/uL (0.0-0.2); BASO % 1 % (0-3); EOS # 0.5 x10^3/uL (0.0-0.7); EOS % 6 % (0-3); HEMATOCRIT 23.3 % (39.0-53.0); HEMOGLOBIN 7.7 g/dL (13.0-17.5); LYMPH # 1.6 x10^3/uL (1.0-4.8); LYMPH % 19 % (24-48); MEAN CORPUSCULAR HEMOGLOBIN 30 pg (25-35); MEAN CORPUSCULAR HGB CONC 33 g/dL (31-37); MEAN CORPUSCULAR VOLUME 90 fL (79-100); MONO # 0.5 x10^3/uL (0.0-1.1); MONO % 6 % (0-9); NEUT # 5.6 x10^3/uL (1.8-7.7); NEUT % 68 % (31-73); PLATELET COUNT 45 x10^3/uL (140-400); RED BLOOD COUNT 2.59 x10^6/uL (4.30-5.70); RED CELL DISTRIBUTION WIDTH 17.9 % (11.5-14.5); WHITE BLOOD COUNT 8.3 x10^3/uL (4.0-11.0)
[2021-01-06] MEDS: ONDANSETRON PF 4 MG/2 ML VIAL. IVP PRN (09:32)
[2021-01-06 09:40] LABS: ALBUMIN 2.9 g/dL (3.4-5.0); ALBUMIN/GLOBULIN RATIO 0.9 (1.0-1.7); CALCIUM 8.3 mg/dL (8.5-10.1); CREATININE 3.2 mg/dL (0.7-1.3); GFR 19.1; MAGNESIUM 2.2 mg/dL (1.8-2.4); PHOSPHORUS 3.4 mg/dL (2.6-4.7); POTASSIUM 4.3 mmol/L (3.5-5.1); TOTAL BILIRUBIN 0.8 mg/dL (0.2-1.0)
--- NOTE | 2021-01-06 09:46 | PDOC ---
DATE OF SERVICE DATE: 01/06/21 TIME: 09:44 SUBJECTIVE ROS Denies any SOB, on room air. No N/V OBJECTIVE Vital Signs Vital Signs Date Time Temp Pulse Resp B/P (MAP) Pulse Ox O2 Delivery O2 Flow Rate FiO2 01/06/21 08:21 62 128/54 01/06/21 07:00 98.1 18 92 Room Air 98.1 I & 0 Intake and Output 01/06/21 07:00 Intake Total 670 ml Balance 670 ml Intake Oral 670 ml # Bowel Movements 2 PHYSICAL EXAM Physical Exam General: NAD HEENT: Atraumatic, OM moist Neck supple Lungs: Clear to auscultation Heart: Bradycardic, ESM aortic) Abdomen: Soft, NT Extremities: Bilat LE edema 2-3 + a Neuro: grossly normal Psych/Mental Status: Mood NL lowery + , No cva or SP tenderness Skin No rash DIAGNOSIS/ASSESSMENT Assessment & Plan new Onset ESRD- Cardiorenal worsening renal function Initiated on Dialysis 01/04 ; 2 nd treatment 01/05 , Currently no indication today Access Tunneled HDC on 01/04 Supportive care Strict I/O, Daily accurate weight . Awaiting OP chair time (his house supervisor is from [facility] ) CKD stage 3B/ 4 - Follows with Dr. Roca at [facility] , baseline Cr per [facility] records prior to previous admission 1.8-2.0 but 2.3 to 2.5 since REBECCA recently in November 2020 HypoKalemia - stable, replace as indicated Hx of Acute blood loss anemia secondary to GIB. s/p cauterization of bleeding antral ulcer by GI team and PRBC in November . Hgb this admission low as well - defer to GI Renal calculus - RK- Possible intrarenal stones. LK Possible intrarenal stones to include a 13 mm focus of increased echogenicity at the upper pole.No e/o obstruction reported . Pt denies any past history Worsening LE edema- Bilat LE and anasarca- Wt up compared to his recent admission . off Lasix gtt , currently on Lasix PO BID ,Cardiology managing Left heel wound with dry gangrene and 1st toe ulcer- s/p CO2 angiograph on 12/28 Acute on chronic diastolic CHF; Echo 07/25 with preserved LV systolic function Anemia with h/o GIB with cauterization of bleeding antral ulcer CAD; s/p PCI/RHEA to LAD in 2019. clinically stable, CP free. PAD s/p past orbital atherectomy/FENDER FINISHER to right posterior tibial artery. Permanent AFIB; rate controlled on BB COMMENT/RELEVANT DATA Meds Current Medications Medications (Trade) Dose Ordered Sig/Redd Start Time Stop Time Status Last Admin Dose Admin Acetaminophen (Tylenol) 650 mg PRN Q4HRS PRN 12/20/20 21:45 01/04/21 21:27 650 MG Albumin Human 200 ml @ 200 mls/hr 1X PRN PRN 01/05/21 11:45 01/05/21 17:44 DC Amoxicillin/ Clavulanate Potassium (Augmentin 500/ 125mg) 1 tab DAILY 01/06/21 09:00 01/05/21 17:04 1 TAB Amoxicillin/ Clavulanate Potassium (Augmentin 875/ 125mg) 1 tab BID 12/25/20 09:00 12/31/20 08:43 DC 12/31/20 08:29 1 TAB Apixaban (Eliquis) 2.5 mg BID 12/20/20 22:00 12/21/20 13:36 DC 12/21/20 09:00 2.5 MG Ascorbic Acid (Vitamin C) 500 mg BID 12/20/20 22:00 01/06/21 08:20 500 MG Aspirin (Ecotrin) 81 mg [id number] 01/01/21 08:00 01/05/21 17:03 81 MG Atorvastatin Calcium (Lipitor) 40 mg HS 12/20/20 22:00 01/05/21 20:52 40 MG Buspirone HCl (Buspar) 10 mg PRN DAILY PRN 12/20/20 21:45 01/05/21 00:44 10 MG Cefazolin Sodium/ Dextrose 50 ml @ 100 mls/hr 1X ONCE 01/04/21 11:00 01/04/21 11:29 DC 01/04/21 10:50 100 MLS/HR Dextrose (Dextrose 50%-Water Syringe) 12.5 gm PRN Q15MIN PRN 12/20/20 21:45 Docusate Sodium (Colace) 100 mg PRN DAILY PRN 12/20/20 21:45 Doxycycline Hyclate (Vibra-Tab) 100 mg BID 01/05/21 09:00 01/06/21 08:21 100 MG Famotidine (Pepcid) 20 mg DAILY 12/21/20 09:00 01/06/21 08:20 20 MG Fentanyl Citrate (Fentanyl 2ml Vial) 100 mcg 1X ONCE 01/04/21 11:00 01/04/21 11:01 DC 01/04/21 10:50 50 MCG Ferrous Sulfate (Feosol) 325 mg BIDWMEALS 12/24/20 17:00 01/06/21 08:19 325 MG Ferrous Sulfate (Iron Oral Solution) 300 mg BIDWMEALS 12/22/20 17:00 12/24/20 11:08 DC 12/24/20 08:54 300 MG Furosemide (Lasix) 40 mg [id number] 12/26/20 10:30 12/30/20 11:38 DC 12/30/20 08:58 40 MG Furosemide 100 mg/ Sodium Chloride 100 ml @ 0 mls/hr CONT PRN 12/21/20 11:30 12/26/20 10:28 DC 12/26/20 10:06 10 MLS/HR Heparin Sodium (Porcine) (Heparin Sodium) 2,500 unit 1X ONCE 12/27/20 12:15 12/27/20 12:19 DC 12/27/20 13:08 5,500 UNIT Heparin Sodium/ Sodium Chloride (HEPARIN for ARTERIAL LINE FLUSH) 1,000 unit 1X ONCE 12/27/20 12:15 12/27/20 12:19 DC 12/27/20 13:04 1,000 UNIT Hydralazine HCl (Apresoline) 25 mg TID 12/21/20 09:00 01/06/21 08:20 25 MG Hydromorphone HCl (Dilaudid) 0.5 mg PRN Q10MIN PRN 12/30/20 06:00 12/31/20 05:59 DC Info (PHARMACY MONITORING -- do not chart) 1 each PRN DAILY PRN 01/05/21 11:45 Insulin Glargine (Lantus Syringe) 15 unit QHS 12/20/20 22:00 01/03/21 13:14 DC 01/02/21 21:42 15 UNIT Insulin Human Lispro (HumaLOG) 0-7 UNITS TIDWMEALS 12/21/20 08:00 Iodixanol (Visipaque 320) 100 ml 1X ONCE 12/27/20 12:15 12/27/20 12:19 DC 12/27/20 13:04 30 ML Lactobacillus Rhamnosus (Culturelle) 1 cap BID 12/26/20 21:00 01/06/21 08:19 1 CAP Lidocaine HCl (Lidocaine 1% 20ml Vial) 20 ml STK-MED ONCE 12/30/20 07:50 12/30/20 19:07 DC Lidocaine HCl (Lidocaine Pf 2% Vial) 5 ml STK-MED ONCE 12/30/20 06:36 12/30/20 19:06 DC Lidocaine/ Epinephrine (LIDOCAINE 1%-EPI 1:100,000 Multi-Dose) 20 ml 1X ONCE 01/04/21 11:00 01/04/21 11:01 DC 01/04/21 10:51 14 ML Linezolid (Zyvox) 600 mg BID 12/25/20 09:00 01/02/21 09:10 DC 01/02/21 08:43 600 MG Linezolid/Dextrose 300 ml @ 300 mls/hr Q12HR 01/02/21 21:00 01/05/21 08:35 DC 01/04/21 21:27 300 MLS/HR Metoprolol Succinate (Toprol Xl) 25 mg DAILY 12/21/20 09:00 01/06/21 08:21 25 MG Midazolam HCl (Versed) 2 mg 1X ONCE 01/04/21 11:00 01/04/21 11:01 DC 01/04/21 10:50 1 MG Morphine Sulfate (Morphine Sulfate) 1 mg PRN Q10MIN PRN 12/30/20 06:00 12/31/20 05:59 DC Nystatin (Nystop) 1 luna BID 12/20/20 22:00 01/06/21 08:23 1 LUNA Ondansetron HCl (Zofran) 4 mg PRN Q6HRS PRN 12/20/20 21:45 01/06/21 09:32 4 MG Polyethylene Glycol (miraLAX PACKET) 17 gm PRN DAILY PRN 12/22/20 12:00 Potassium Chloride (Klor-Con) 40 meq DAILY 12/24/20 09:00 01/02/21 11:03 DC 01/01/21 08:47 40 MEQ Prochlorperazine Edisylate (Compazine) 5 mg PACU PRN PRN 12/30/20 06:00 12/31/20 05:59 DC Propofol (Diprivan) 200 mg STK-MED ONCE 12/30/20 07:56 12/30/20 19:08 DC Ringer's Solution 1,000 ml @ 30 mls/hr Q24H 12/30/20 06:00 12/30/20 17:59 DC 12/30/20 07:05 30 MLS/HR Sennosides (Senna) 17.2 mg PRN BID PRN 12/20/20 21:45 01/01/21 08:44 17.2 MG Sertraline HCl (Zoloft) 50 mg DAILY 12/21/20 09:00 01/06/21 08:20 50 MG Sodium Chloride 1,000 ml @ 400 mls/hr Q2H30M PRN 01/05/21 11:45 01/05/21 23:44 DC Lab Laboratory Tests Test 01/05/21 17:28 01/06/21 07:56 01/06/21 08:55 Glucose (Fingerstick) 85 mg/dL (70-99) 74 mg/dL (70-99) White Blood Count 8.3 x10^3/uL (4.0-11.0) Red Blood Count 2.59 x10^6/uL (4.30-5.70) Hemoglobin 7.7 g/dL (13.0-17.5) Hematocrit 23.3 % (39.0-53.0) Mean Corpuscular Volume 90 fL (79-100) Mean Corpuscular Hemoglobin 30 pg (25-35) Mean Corpuscular Hemoglobin Concent 33 g/dL (31-37) Red Cell Distribution Width 17.9 % (11.5-14.5) Platelet Count 45 x10^3/uL (140-400) Neutrophils (%) (Auto) 68 % (31-73) Lymphocytes (%) (Auto) 19 % (24-48) Monocytes (%) (Auto) 6 % (0-9) Eosinophils (%) (Auto) 6 % (0-3) Basophils (%) (Auto) 1 % (0-3) Neutrophils # (Auto) 5.6 x10^3/uL (1.8-7.7) Lymphocytes # (Auto) 1.6 x10^3/uL (1.0-4.8) Monocytes # (Auto) 0.5 x10^3/uL (0.0-1.1) Eosinophils # (Auto) 0.5 x10^3/uL (0.0-0.7) Basophils # (Auto) 0.1 x10^3/uL (0.0-0.2) Sodium Level 137 mmol/L (136-145) Potassium Level 4.3 mmol/L (3.5-5.1) Chloride Level 102 mmol/L (98-107) Carbon Dioxide Level 23 mmol/L (21-32) Anion Gap 12 (6-14) Blood Urea Nitrogen 43 mg/dL (8-26) Creatinine 3.2 mg/dL (0.7-1.3) Estimated GFR (Cockcroft-Gault) 19.1 BUN/Creatinine Ratio 13 (6-20) Glucose Level 104 mg/dL (70-99) Calcium Level 8.3 mg/dL (8.5-10.1) Phosphorus Level 3.4 mg/dL (2.6-4.7) Magnesium Level 2.2 mg/dL (1.8-2.4) Total Bilirubin 0.8 mg/dL (0.2-1.0) Aspartate Amino Transf (AST/SGOT) 14 U/L (15-37) Alanine Aminotransferase (ALT/SGPT) 6 U/L (16-63) Alkaline Phosphatase 78 U/L (46-116) Total Protein 6.0 g/dL (6.4-8.2) Albumin 2.9 g/dL (3.4-5.0) Albumin/Globulin Ratio 0.9 (1.0-1.7) Results All relevant outside records, renal labs, imaging studies, telemetry/EKG's were reviewed. Justicifation of Admission Dx: Justifications for Admission: Justification of Admission Dx: Yes BEATRIZ IBARRA MD Jan 06, 2021 09:46
--- NOTE | 2021-01-06 10:19 | PDOC ---
[employer] PROGRESS NOTE Date of Service DOS: DATE: 01/06/21 TIME: 10:18 Chief Complaint Chief Complaint Acute volume overload Acute on chronic CHF exacerbation Hypokalemia History of chronic kidney disease Normocytic anemia, possible chronic GI blood loss with EGD showing antral gastric ulcer Left lower extremity wound ulcer with dry gangrene Morbid obesity, OHS, suspect ROBB Severe protein malnutrition History of diabetes mellitus type 2 History of peripheral vascular disease History of atrial fibrillation History of bradycardia status post pacemaker placement History of peripheral vascular disease Hypertension Dyslipidemia Thrombocytopenia, 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 No regional wall motion abnormalities noted, valvular aortic stenosis. Moderate tricuspid regurgitation with PAP 68 mmHg. Nephrology consult Cardiology consult Trend hemoglobin if less than 7 then transfuse 1 unit Eliquis for DVT prophylaxis Pepcid GI prophylaxis ADA diet Full code Discussed with RN and SW Disposition inpatient management as above Surrogate decision maker is Phuong Mathis History of Present Illness History of Present Illness 01/06/2021 No acute events overnight. Patient is tolerating hemodialysis well. Platelets decreased again down to 45,000 from 56,000. On admission it was greater than 120,000. Pending hematology evaluation. Patient's chart, labs, images were reviewed and discussed with RN 01/05/21 No acute events overnight. Permacath placed yesterday and patient tolerated procedure well and received hemodialysis. Hemodialysis again today. Improved creatinine to 3.5. No other concerns from nursing. Patient's chart, labs, images were reviewed and discussed with RN 01/04/2021 No acute events overnight. Patient seen and examined bedside. Creatinine increased to 4.0. No concerns from nursing at this time. Patient's chart, labs, images were reviewed and discussed with RN. 01/03/2021 No acute events overnight. Patient seen and examined bedside. Creatinine increased to 3.7. Pending further nephrology recommendations for possible HD. No urine output per nursing. Patient's chart, labs, images were reviewed and discussed with RN 01/02/2021 Afebrile, no acute events overnight. Kidney function slightly worse today despite gentle hydration, CR 3.5 (eGFR 17.3). Per nephrology, if no improvement in renal function may need to initiate HD. Continue IV fluids. Continue oral antibiotics for left calcaneal heel cellulitis. 01/01/2021 Afebrile, currently breathing on room air. Creatinine increased to 3.4 today, despite gentle hydration. Will need to discuss with nephrology. Will continue gentle hydration and close monitoring of kidney function. Echocardiogram from 07/16/2020 showed normal left ventricular systolic function, ejection fraction 55-60%; no regional wall motion abnormality, mildmoderate valvular aortic stenosis, mild much regurgitation, moderate tricuspid regurgitation with PAP 68 mmHg. Continue p.o. Augmentin and Zyvox for left calcaneal heel cellulitis. 12/31/2020 Afebrile, no acute events overnight. Wound care is addressing his heels this morning. Plan to have wound VAC placed prior to discharge. BUN 78, creatinine 3.1 today. Due to concerns of worsening renal function and concerns for lack of appropriate follow-up at [facility], will hold discharge today until kidney function can be addressed by nephrology, likely with gentle hydration and close monitoring of kidney function. These methods are being taken to attempt to avoid the need for renal replacement therapy in the future. Discussed with patient and , and they are agreeable to this plan. 12/30/2020 Afebrile, no new complaints today. Had left heel ulcer debridement today. I believe plan is to have wound VAC placed tomorrow. Continue antibiotics, per ID. He will need senior care once stable to discharge. Continue p.o. Lasix; continue gentle hydration and monitor kidney function. Creatinine 2.8, eGFR 22.3. 12/29/2020 Afebrile, breathing on room air. Plan is for elective debridement of the left heel ulcer tomorrow. Continue Augmentin and Zyvox, per ID. 12/28/2020 Afebrile, denies shortness of breath. Abdominal aortogram yesterday showed no significant aortoiliac disease bilaterally, isolated left posterior tibial artery occlusion with adequate two-vessel runoff to the distal foot and calcaneal area. Overall the patient is felt to have adequate runoff to the foot for further intervention with debridement of the left heel ulcer. I believe the plan is for elective debridement of left heel ulcer tomorrow. Discussed with RN. 12/27/2020 Afebrile, currently on room air. Off Lasix drip, currently Lasix 40 mg twice daily. Net positive fluid balance overnight, 510mL. Continue p.o. Augmentin and Zyvox. Aortogram pending today. 12/26/2020 No acute events overnight. Patient seen and examined bedside. -2.5 L output in the urine in the past 24 hours. No complaints from the patient. Pending aortogram with LLE runoff with vascular surgery. Follow-up 12/24/2020 Patient was seen and examined in room today. Awaiting plan from vascular/cardio on possible PCI/angio of LLE. Case discussed with RN and case management. Chart and specialist notes reviewed. 12/23/2020 No acute events overnight. Patient seen and examined bedside. Pedal edema has improved total of -2.3 L of urine output. Low potassium today will replace IV and p.o. Creatinine has also improved. Pending MRI versus CT of left lower extremity. Patient's chart, labs, images were reviewed and discussed with RN 12/22/2020 No acute events overnight patient seen and examined bedside. No significant weight loss with Lasix drip. Will defer further fluid offloading with car diology. Pending MRI and further vascular surgery recommendations for lower extremity foot ulcer. Patient's chart, labs, images were reviewed and discussed with RN 12/21/2020 No acute events overnight. Patient has adequate urine output and feels less fl uid overload. Documented -580 cc. Patient's chart, labs, images were reviewed and discussed with RN 75 year old male who was sent here from [facility] for evaluation due to bilateral lower extremity swelling, worsening renal function. He has history of CHF, history of chronic renal failure. Patient was sent here by the RESEARCH INTERVIEWER there today for evaluation of bilateral lower extremity swelling and increased renal function test. Patient denies any chest pain, denies any cough or fever. Patient does have trouble breathing with exertion. Patient says they told him to come here to be admitted so they can do colonoscopy because he has been anemic as well. Patient denies any rectal bleeding. His weight today is 147 kg Upon chart review patient was seen in November 04 09/12/2020 for GI bleed.. Eliquis was actually restarted on 11/09/2020. And also had a pacemaker placed on 11/09/2020 and tolerated procedure well. Patient also does follow-up with Dr. Chau with nephrology and his baseline creatinine appears to be between 1.8-2.0. Vitals/I&O Vitals/I&O: Vital Signs Date Time Temp Pulse Resp B/P (MAP) Pulse Ox O2 Delivery O2 Flow Rate FiO2 01/06/21 08:21 62 128/54 01/06/21 08:00 Room Air 01/06/21 07:00 98.1 18 92 98.1 I & O 01/05/21 01/05/21 01/06/21 14:59 22:59 06:59 Intake Total 120 ml 450 ml 100 ml Balance 120 ml 450 ml 100 ml Physical Exam Physical Exam: GENERAL: Alert, oriented gentleman, not in any distress. HEENT: Both pupils are round and reacting. No conjunctival lesion. No lesion in the mouth. NECK: Supple. RT Tunneled HDC LUNGS: Clear. HEART: S1, S2 regular. Pacer site clean ABDOMEN: Soft, nontender. No organomegaly. Obeses EXTREMITIES: Edema present bilaterally, wound VAC in place not taken down NEUROLOGIC: The patient is alert, awake, and appropriate. No focal neurologic deficit. General: Alert, Oriented X3, Cooperative, No acute distress Heart: Other (2/6 sysotlic murmur, IRRR- tele AFIB. int V pacing ) Lungs: Clear, Other Abdomen: Soft Extremities: Other (2-3+ bilateral LE edema, anasarca ) Skin: No significant lesion Labs Labs: Laboratory Tests Test 01/05/21 17:28 01/06/21 07:56 01/06/21 08:55 Glucose (Fingerstick) 85 mg/dL (70-99) 74 mg/dL (70-99) White Blood Count 8.3 x10^3/uL (4.0-11.0) Red Blood Count 2.59 x10^6/uL (4.30-5.70) Hemoglobin 7.7 g/dL (13.0-17.5) Hematocrit 23.3 % (39.0-53.0) Mean Corpuscular Volume 90 fL (79-100) Mean Corpuscular Hemoglobin 30 pg (25-35) Mean Corpuscular Hemoglobin Concent 33 g/dL (31-37) Red Cell Distribution Width 17.9 % (11.5-14.5) Platelet Count 45 x10^3/uL (140-400) Neutrophils (%) (Auto) 68 % (31-73) Lymphocytes (%) (Auto) 19 % (24-48) Monocytes (%) (Auto) 6 % (0-9) Eosinophils (%) (Auto) 6 % (0-3) Basophils (%) (Auto) 1 % (0-3) Neutrophils # (Auto) 5.6 x10^3/uL (1.8-7.7) Lymphocytes # (Auto) 1.6 x10^3/uL (1.0-4.8) Monocytes # (Auto) 0.5 x10^3/uL (0.0-1.1) Eosinophils # (Auto) 0.5 x10^3/uL (0.0-0.7) Basophils # (Auto) 0.1 x10^3/uL (0.0-0.2) Sodium Level 137 mmol/L (136-145) Potassium Level 4.3 mmol/L (3.5-5.1) Chloride Level 102 mmol/L (98-107) Carbon Dioxide Level 23 mmol/L (21-32) Anion Gap 12 (6-14) Blood Urea Nitrogen 43 mg/dL (8-26) Creatinine 3.2 mg/dL (0.7-1.3) Estimated GFR (Cockcroft-Gault) 19.1 BUN/Creatinine Ratio 13 (6-20) Glucose Level 104 mg/dL (70-99) Calcium Level 8.3 mg/dL (8.5-10.1) Phosphorus Level 3.4 mg/dL (2.6-4.7) Magnesium Level 2.2 mg/dL (1.8-2.4) Total Bilirubin 0.8 mg/dL (0.2-1.0) Aspartate Amino Transf (AST/SGOT) 14 U/L (15-37) Alanine Aminotransferase (ALT/SGPT) 6 U/L (16-63) Alkaline Phosphatase 78 U/L (46-116) Total Protein 6.0 g/dL (6.4-8.2) Albumin 2.9 g/dL (3.4-5.0) Albumin/Globulin Ratio 0.9 (1.0-1.7) Assessment and Plan Assessmemt and Plan Problems Medical Problems: (1) Anemia Status: Acute (2) CHF exacerbation Status: Acute Comment Review of Relevant I have reviewed the following items mara (where applicable) has been applied. Medications: Current Medications Medications (Trade) Dose Ordered Sig/Redd Route PRN Reason Start Time Stop Time Status Last Admin Dose Admin Amoxicillin/ Clavulanate Potassium (Augmentin 500/ 125mg) 1 tab DAILY PO 01/06/21 09:00 01/05/21 17:04 Justifications for Admission Other Justification CHF exacerbation KANNAN NELSON MD Jan 06, 2021 10:19
--- NOTE | 2021-01-06 10:21 | NUR ---
SS following up with discharge planning. SS reviewed pt chart and discussed with pt RN. Pt is currently on room air. Wound vac in place. COVID19 negative. Pt has confirmed outpatient dialysis chair time at [address] [address], ; fax [phone], Sunday, , and Sunday at 0600. Per Dr. Wynn platelets dropped today. Dr. Kaba consulted. PT/OT recommended snf unit. Pt accepted at [facility], ; fax [phone]. SS will continue to follow for discharge planning.
--- NOTE | 2021-01-06 12:39 | PDOC ---
CARDIO Progress Notes Date and Time Date of Service 01/06/2021 Time of Evaluation 1220 Subjective Subjective: No Chest Pain, No shortness of breath, No Palpitations Vitals Vitals Vital Signs Date Time Temp Pulse Resp B/P (MAP) Pulse Ox O2 Delivery O2 Flow Rate FiO2 01/06/21 10:57 97.5 62 18 139/54 (82) 92 Room Air 97.5 Weight Weight [ ] Input and Output Intake and Output Intake and Output 01/06/21 07:00 Intake Total 670 ml Balance 670 ml Intake Oral 670 ml # Bowel Movements 2 Laboratory Labs Laboratory Tests Test 01/05/21 17:28 01/06/21 07:56 01/06/21 08:55 01/06/21 11:50 Glucose (Fingerstick) 85 mg/dL (70-99) 74 mg/dL (70-99) 118 mg/dL (70-99) White Blood Count 8.3 x10^3/uL (4.0-11.0) Red Blood Count 2.59 x10^6/uL (4.30-5.70) Hemoglobin 7.7 g/dL (13.0-17.5) Hematocrit 23.3 % (39.0-53.0) Mean Corpuscular Volume 90 fL (79-100) Mean Corpuscular Hemoglobin 30 pg (25-35) Mean Corpuscular Hemoglobin Concent 33 g/dL (31-37) Red Cell Distribution Width 17.9 % (11.5-14.5) Platelet Count 45 x10^3/uL (140-400) Neutrophils (%) (Auto) 68 % (31-73) Lymphocytes (%) (Auto) 19 % (24-48) Monocytes (%) (Auto) 6 % (0-9) Eosinophils (%) (Auto) 6 % (0-3) Basophils (%) (Auto) 1 % (0-3) Neutrophils # (Auto) 5.6 x10^3/uL (1.8-7.7) Lymphocytes # (Auto) 1.6 x10^3/uL (1.0-4.8) Monocytes # (Auto) 0.5 x10^3/uL (0.0-1.1) Eosinophils # (Auto) 0.5 x10^3/uL (0.0-0.7) Basophils # (Auto) 0.1 x10^3/uL (0.0-0.2) Sodium Level 137 mmol/L (136-145) Potassium Level 4.3 mmol/L (3.5-5.1) Chloride Level 102 mmol/L (98-107) Carbon Dioxide Level 23 mmol/L (21-32) Anion Gap 12 (6-14) Blood Urea Nitrogen 43 mg/dL (8-26) Creatinine 3.2 mg/dL (0.7-1.3) Estimated GFR (Cockcroft-Gault) 19.1 BUN/Creatinine Ratio 13 (6-20) Glucose Level 104 mg/dL (70-99) Calcium Level 8.3 mg/dL (8.5-10.1) Phosphorus Level 3.4 mg/dL (2.6-4.7) Magnesium Level 2.2 mg/dL (1.8-2.4) Total Bilirubin 0.8 mg/dL (0.2-1.0) Aspartate Amino Transf (AST/SGOT) 14 U/L (15-37) Alanine Aminotransferase (ALT/SGPT) 6 U/L (16-63) Alkaline Phosphatase 78 U/L (46-116) Total Protein 6.0 g/dL (6.4-8.2) Albumin 2.9 g/dL (3.4-5.0) Albumin/Globulin Ratio 0.9 (1.0-1.7) Review of Systems Constitutional: yes: alert, oriented Ears/Nose/Throat: Yes: no symptom reported Eyes: Yes: no symptom reported Pulmonary: Yes dyspnea Cardiovascular: Yes no symptom reported Gastrointestional: Yes: no symptom reported Genitourinary: Yes: no symptom reported Musculoskeletal: Yes: no symptom reported Skin: Yes no symptom reported Psychiatric/Neurological: Yes: no symptom reported Physical Exam HEENT: Neck Supple W Full Motion Chest: Symmetric LUNGS: Other (diminished ) Heart: irregularly irregular (AFIB) Abdomen: Soft N/T Extremities: Other (anasarca) Neurology: alert, oriented, follow commands Assessment Assessment 1. Anasarca 2. Acute on chronic diastolic CHF; Echo 07/25 with preserved LV systolic function 3. Anemia with h/o GIB with cauterization of bleeding antral ulcer. s/p transfusion. no obvious bleeding. Hgb at 7.7 4. CAD; s/p PCI/RHEA to LAD in 2019. clinically stable, CP free. 5. PAD s/p past orbital atherectomy/SHIP'S PILOT to right posterior tibial artery. S/P left foot debridement, wound vac in place. Noted adequate LLE perfusion per aortogram 6. Permanent AFIB; rate controlled on BB 7. SSS; s/p PPM ([employer]). intermittent v-pacing. recent device check with normal function 8. Hypertension; controlled 9. Hyperlipidemia; statin 10. Diabetes, II; as per IM 11. REBECCA on CKD; potentially new ESRD, nephrology following 12. Valvular disease; mild to moderate aortic stenosis 13. Protein calorie malnutrition 14. Hyperkalemia: better Recommendations Fluid off loading per HD today Secondary prevention Metoprolol for rate control. Continue ASA OAC on hold with anemia, recent GIB Local wound care Follow up in office Justicifation of Admission Dx: Justifications for Admission: Justification of Admission Dx: Yes FRAN COLMENARES APRN Jan 06, 2021 12:39
--- NOTE | 2021-01-06 18:43 | PDOC2 ---
CONSULT Date of Consult Date of Consult DATE: 01/06/21 TIME: 18:36 Reason for Consult Reason for Consult: Thrombocytopenia Referring Physician Referring Physician: Dr Wynn Identification/Chief Complaint Chief Complaint Shortness of breath Source Source: Chart review, Patient History of Present Illness Reason for Visit: Aleksey Nunn is a 75 year old male with hx of chronic systolic HF, PVD, DM2 and CKD who was admitted from [facility] after being found to have symptoms and lab findings suggestive of progressive renal insufficiency. He has been seen by Dr Stern in the hospital and hemodialysis was started on 01/04/21. Hematology consultation has been sought due to thrombocytopenia. Platelets were normal at Past Medical History Cardiovascular: AFIB, CAD, CHF, HTN, Hyperlipidemia CENTRAL NERVOUS SYSTEM: Periperal neuropathy GI: GERD, GI bleed Heme/Onc: Anemia NOS Psych: Anxiety, Depression Rheumatologic: Gout Renal/: Chronic renal insuff Endocrine: Diabetes Past Surgical History Past Surgical History: Pacemaker Family History Family History: Heart Disease, Hypertension Social History No ALCOHOL: none Drugs: None Lives: Long-Term Current Problem List Problem List Problems Medical Problems: (1) Anemia Status: Acute (2) CHF exacerbation Status: Acute Current Medications Current Medications Current Medications Apixaban (Eliquis) 2.5 mg BID PO Last administered on 12/21/20at 09:00; Start 12/20/20 at 22:00; Stop 12/21/20 at 13:36; Status DC Atorvastatin Calcium (Lipitor) 40 mg HS PO Last administered on 01/05/21at 20:52; Start 12/20/20 at 22:00 Buspirone HCl (Buspar) 10 mg PRN DAILY PRN PO ANXIETY / AGITATION Last administered on 01/05/21at 00:44; Start 12/20/20 at 21:45 Famotidine (Pepcid) 20 mg DAILY PO Last administered on 01/06/21at 08:20; Start 12/21/20 at 09:00 Hydralazine HCl (Apresoline) 25 mg TID PO Last administered on 01/06/21at 08:20; Start 12/21/20 at 09:00 Insulin Glargine (Lantus Syringe) 15 unit QHS SQ Last administered on 01/02/21at 21:42; Start 12/20/20 at 22:00; Stop 01/03/21 at 13:14; Status DC Metoprolol Succinate (Toprol Xl) 25 mg DAILY PO Last administered on 01/06/21 08:21; Start 12/21/20 at 09:00 Nystatin (Nystop) 1 daniela BID TP Last administered on 01/06/21 08:23; Start 12/20/20 at 22:00 Sennosides (Senna) 8.6 mg PRN BID PRN PO CONSTIPATION 1ST CHOICE; Start 12/20/20 at 21:45; Stop 12/20/20 at 21:52; Status DC Sertraline HCl (Zoloft) 50 mg DAILY PO Last administered on 01/06/21 08:20; Start 12/21/20 at 09:00 Ascorbic Acid (Vitamin C) 500 mg BID PO Last administered on 01/06/21 08:20; Start 12/20/20 at 22:00 Furosemide (Lasix) 40 mg 1X ONCE IVP Last administered on 12/20/20at 23:03; Start 12/20/20 at 21:45; Stop 12/20/20 at 21:46; Status DC Sennosides (Senna) 17.2 mg PRN BID PRN PO CONSTIPATION, 2ND CHOICE Last administered on 01/01/21at 08:44; Start 12/20/20 at 21:45 Docusate Sodium (Colace) 100 mg PRN DAILY PRN PO HARD STOOLS; Start 12/20/20 at 21:45 Ondansetron HCl (Zofran) 4 mg PRN Q6HRS PRN IVP NAUSEA/VOMITING Last administered on 01/06/21 09:32; Start 12/20/20 at 21:45 Insulin Human Lispro (HumaLOG) 0-7 UNITS TIDWMEALS SQ ; Start 12/21/20 at 08:00 Dextrose (Dextrose 50%-Water Syringe) 12.5 gm PRN Q15MIN PRN IV SEE COMMENTS; Start 12/20/20 at 21:45 Acetaminophen (Tylenol) 650 mg PRN Q4HRS PRN PO TEMP OVER 100.4F OR MILD PAIN Last administered on 01/04/21at 21:27; Start 12/20/20 at 21:45 Furosemide 100 mg/ Sodium Chloride 100 ml @ 0 mls/hr CONT PRN IV SEE I/O RECORD Last administered on 12/26/20at 10:06; Start 12/21/20 at 11:30; Stop 12/26/20 at 10:28; Status DC Potassium Chloride (Klor-Con) 20 meq 1X ONCE PO Last administered on 12/21/20at 14:02; Start 12/21/20 at 12:15; Stop 12/21/20 at 12:16; Status DC Potassium Chloride (Klor-Con) 40 meq 1X ONCE PO Last administered on 12/22/20at 08:39; Start 12/22/20 at 08:30; Stop 12/22/20 at 08:31; Status DC Ferrous Sulfate (Iron Oral Solution) 300 mg BIDWMEALS PO Last administered on 12/24/20at 08:54; Start 12/22/20 at 17:00; Stop 12/24/20 at 11:08; Status DC Polyethylene Glycol (miraLAX PACKET) 17 gm PRN DAILY PRN PO CONSTIPATION, 1ST CHOICE; Start 12/22/20 at 12:00 Potassium Chloride (Klor-Con) 40 meq 1X ONCE PO Last administered on 12/23/20at 06:54; Start 12/23/20 at 07:00; Stop 12/23/20 at 07:01; Status DC Potassium Chloride (Klor-Con) 40 meq 1X ONCE PO Last administered on 12/23/20at 08:54; Start 12/23/20 at 09:00; Stop 12/23/20 at 09:01; Status DC Potassium Chloride (Klor-Con) 40 meq DAILY PO Last administered on 01/01/21at 08:47; Start 12/24/20 at 09:00; Stop 01/02/21 at 11:03; Status DC Ferrous Sulfate (Feosol) 325 mg BIDWMEALS PO Last administered on 01/06/21at 18:17; Start 12/24/20 at 17:00 Linezolid (Zyvox) 600 mg BID PO Last administered on 01/02/21at 08:43; Start 12/25/20 at 09:00; Stop 01/02/21 at 09:10; Status DC Amoxicillin/ Clavulanate Potassium (Augmentin 875/ 125mg) 1 tab BID PO Last administered on 12/31/20at 08:29; Start 12/25/20 at 09:00; Stop 12/31/20 at 08:43; Status DC Furosemide (Lasix) 40 mg BID94 PO Last administered on 12/30/20at 08:58; Start 12/26/20 at 10:30; Stop 12/30/20 at 11:38; Status DC Lactobacillus Rhamnosus (Culturelle) 1 cap BID PO Last administered on 01/06/21at 08:19; Start 12/26/20 at 21:00 Iodixanol (Visipaque 320) 100 ml STK-MED ONCE .ROUTE ; Start 12/27/20 at 10:35; Stop 12/27/20 at 10:35; Status DC Lidocaine HCl (Lidocaine 1% 20ml Vial) 20 ml STK-MED ONCE .ROUTE ; Start 12/27/20 at 10:35; Stop 12/27/20 at 10:35; Status DC Heparin Sodium/ Sodium Chloride 1,000 ml @ As Directed STK-MED ONCE .ROUTE ; Start 12/27/20 at 10:35; Stop 12/27/20 at 10:35; Status DC Midazolam HCl (Versed) 5 mg STK-MED ONCE .ROUTE ; Start 12/27/20 at 11:40; Stop 12/27/20 at 11:40; Status DC Fentanyl Citrate (Fentanyl 2ml Vial) 100 mcg STK-MED ONCE .ROUTE ; Start 12/27/20 at 11:40; Stop 12/27/20 at 11:40; Status DC Heparin Sodium (Porcine) (Heparin Sodium) 10,000 unit STK-MED ONCE .ROUTE ; Start 12/27/20 at 11:40; Stop 12/27/20 at 11:40; Status DC Heparin Sodium/ Sodium Chloride (HEPARIN for ARTERIAL LINE FLUSH) 1,000 unit 1X ONCE IART Last administered on 12/27/20at 13:04; Start 12/27/20 at 12:15; Stop 12/27/20 at 12:19; Status DC Heparin Sodium/ Sodium Chloride (HEPARIN for ARTERIAL LINE FLUSH) 1,000 unit 1X ONCE IART Last administered on 12/27/20at 13:04; Start 12/27/20 at 12:15; Stop 12/27/20 at 12:19; Status DC Midazolam HCl (Versed) 5 mg 1X ONCE IV Last administered on 12/27/20at 13:05; Start 12/27/20 at 12:15; Stop 12/27/20 at 12:19; Status DC Fentanyl Citrate (Fentanyl 2ml Vial) 100 mcg 1X ONCE IV Last administered on 12/27/20at 13:06; Start 12/27/20 at 12:15; Stop 12/27/20 at 12:19; Status DC Iodixanol (Visipaque 320) 100 ml 1X ONCE IART Last administered on 12/27/20at 13:04; Start 12/27/20 at 12:15; Stop 12/27/20 at 12:19; Status DC Heparin Sodium (Porcine) (Heparin Sodium) 2,500 unit 1X ONCE IV Last administered on 12/27/20at 13:08; Start 12/27/20 at 12:15; Stop 12/27/20 at 12:19; Status DC Lidocaine HCl (Lidocaine 1% 20ml Vial) 20 ml 1X ONCE INJ Last administered on 12/27/20at 13:04; Start 12/27/20 at 12:15; Stop 12/27/20 at 12:19; Status DC Fentanyl Citrate (Fentanyl 2ml Vial) 25 mcg PRN Q5MIN PRN IVP MILD PAIN 1-3; Start 12/30/20 at 06:00; Stop 12/31/20 at 05:59; Status DC Fentanyl Citrate (Fentanyl 2ml Vial) 50 mcg PRN Q5MIN PRN IVP MODERATE PAIN 4- 6; Start 12/30/20 at 06:00; Stop 12/31/20 at 05:59; Status DC Morphine Sulfate (Morphine Sulfate) 1 mg PRN Q10MIN PRN IVP SEVERE PAIN 7-10; Start 12/30/20 at 06:00; Stop 12/31/20 at 05:59; Status DC Ringer's Solution 1,000 ml @ 30 mls/hr Q24H IV Last administered on 12/30/20at 07:05; Start 12/30/20 at 06:00; Stop 12/30/20 at 17:59; Status DC Hydromorphone HCl (Dilaudid) 0.5 mg PRN Q10MIN PRN IVP SEVERE PAIN 7-10, 2nd CHOICE; Start 12/30/20 at 06:00; Stop 12/31/20 at 05:59; Status DC Prochlorperazine Edisylate (Compazine) 5 mg PACU PRN PRN IVP NAUSEA, MRX1; Start 12/30/20 at 06:00; Stop 12/31/20 at 05:59; Status DC Cefazolin Sodium/ Dextrose 50 ml @ 100 mls/hr 1X ONCE IV Last administered on 12/30/20at 07:20; Start 12/30/20 at 08:00; Stop 12/30/20 at 08:29; Status DC Sodium Chloride 500 ml @ 75 mls/hr 1X ONCE IV Last administered on 12/30/20at 17:44; Start 12/30/20 at 18:00; Stop 12/31/20 at 00:39; Status DC Propofol (Diprivan) 200 mg STK-MED ONCE IV ; Start 12/30/20 at 06:36; Stop 12/30/20 at 19:06; Status DC Lidocaine HCl (Lidocaine Pf 2% Vial) 5 ml STK-MED ONCE .ROUTE ; Start 12/30/20 at 06:36; Stop 12/30/20 at 19:06; Status DC Lidocaine HCl (Lidocaine 1% 20ml Vial) 20 ml STK-MED ONCE .ROUTE ; Start 12/30/20 at 07:50; Stop 12/30/20 at 19:07; Status DC Propofol (Diprivan) 200 mg STK-MED ONCE IV ; Start 12/30/20 at 07:56; Stop 12/30/20 at 19:08; Status DC Amoxicillin/ Clavulanate Potassium (Augmentin 500/ 125mg) 1 tab BID PO ; Start 12/31/20 at 09:00; Stop 12/31/20 at 09:10; Status DC Amoxicillin/ Clavulanate Potassium (Augmentin 500/ 125mg) 1 tab BID PO Last administered on 01/04/21at 21:27; Start 12/31/20 at 21:00; Stop 01/05/21 at 15:34; Status DC Sodium Chloride 1,000 ml @ 75 mls/hr 1X ONCE IV Last administered on 12/31/20at 11:27; Start 12/31/20 at 11:30; Stop 01/01/21 at 00:49; Status DC Aspirin (Ecotrin) 81 mg [id number] PO Last administered on 01/05/21at 17:03; Start 01/01/21 at 08:00 Sodium Chloride 1,000 ml @ 75 mls/hr [id number] IV Last administered on 01/03/21at 05:20; Start 01/01/21 at 12:00; Stop 01/03/21 at 12:55; Status DC Linezolid/Dextrose 300 ml @ 300 mls/hr Q12HR IV Last administered on 01/04/21at 21:27; Start 01/02/21 at 21:00; Stop 01/05/21 at 08:35; Status DC Lidocaine/ Epinephrine (LIDOCAINE 1%-EPI 1:100,000 Multi-Dose) 20 ml STK-MED ONCE .ROUTE ; Start 01/04/21 at 10:00; Stop 01/04/21 at 10:00; Status DC Midazolam HCl (Versed) 2 mg STK-MED ONCE .ROUTE ; Start 01/04/21 at 10:31; Stop 01/04/21 at 10:31; Status DC Fentanyl Citrate (Fentanyl 2ml Vial) 100 mcg STK-MED ONCE .ROUTE ; Start 01/04/21 at 10:31; Stop 01/04/21 at 10:31; Status DC Cefazolin Sodium/ Dextrose 50 ml @ As Directed STK-MED ONCE IV ; Start 01/04/21 at 10:31; Stop 01/04/21 at 10:31; Status DC Midazolam HCl (Versed) 2 mg 1X ONCE IV Last administered on 01/04/21at 10:50; Start 01/04/21 at 11:00; Stop 01/04/21 at 11:01; Status DC Fentanyl Citrate (Fentanyl 2ml Vial) 100 mcg 1X ONCE IV Last administered on 01/04/21at 10:50; Start 01/04/21 at 11:00; Stop 01/04/21 at 11:01; Status DC Lidocaine/ Epinephrine (LIDOCAINE 1%-EPI 1:100,000 Multi-Dose) 20 ml 1X ONCE SQ Last administered on 01/04/21at 10:51; Start 01/04/21 at 11:00; Stop 01/04/21 at 11:01; Status DC Cefazolin Sodium/ Dextrose 50 ml @ 100 mls/hr 1X ONCE IV Last administered on 01/04/21at 10:50; Start 01/04/21 at 11:00; Stop 01/04/21 at 11:29; Status DC Sodium Chloride 1,000 ml @ 1,000 mls/hr Q1H PRN IV hypotension; Start 01/04/21 at 11:00; Stop 01/04/21 at 16:59; Status DC Albumin Human 200 ml @ 200 mls/hr 1X PRN PRN IV Hypotension; Start 01/04/21 at 11:00; Stop 01/04/21 at 16:59; Status DC Sodium Chloride 1,000 ml @ 400 mls/hr Q2H30M PRN IV PATENCY; Start 01/04/21 at 11:00; Stop 01/04/21 at 22:59; Status DC Info (PHARMACY MONITORING -- do not chart) 1 each PRN DAILY PRN MC SEE COMMENTS; Start 01/04/21 at 12:45; Status UNV Info (PHARMACY MONITORING -- do not chart) 1 each PRN DAILY PRN MC SEE COMMENTS; Start 01/04/21 at 12:45; Stop 01/05/21 at 15:39; Status DC Doxycycline Hyclate (Vibra-Tab) 100 mg BID PO Last administered on 01/06/21at 08:21; Start 01/05/21 at 09:00 Sodium Chloride 1,000 ml @ 1,000 mls/hr Q1H PRN IV hypotension; Start 01/05/21 at 11:45; Stop 01/05/21 at 17:44; Status DC Albumin Human 200 ml @ 200 mls/hr 1X PRN PRN IV Hypotension; Start 01/05/21 at 11:45; Stop 01/05/21 at 17:44; Status DC Sodium Chloride 1,000 ml @ 400 mls/hr Q2H30M PRN IV PATENCY; Start 01/05/21 at 11:45; Stop 01/05/21 at 23:44; Status DC Info (PHARMACY MONITORING -- do not chart) 1 each PRN DAILY PRN MC SEE COMMENTS; Start 01/05/21 at 11:45; Status UNV Info (PHARMACY MONITORING -- do not chart) 1 each PRN DAILY PRN MC SEE COMMENTS; Start 01/05/21 at 11:45 Amoxicillin/ Clavulanate Potassium (Augmentin 500/ 125mg) 1 tab DAILY PO Last administered on 01/05/21at 17:04; Start 01/06/21 at 09:00 Active Scripts Active Lantus (Insulin Glargine,Hum.rec.anlog) 100 Unit/1 Ml Vial 15 Unit SQ QHS 30 Days Famotidine 20 Mg Tablet 20 Mg PO DAILY 30 Days Acetaminophen Supp (Acetaminophen) 650 Mg Supp.rect 650 Mg [place] PRN Q4HRS PRN 30 Days Hydralazine Hcl 25 Mg Tablet 25 Mg PO TID 30 Days Reported Tylenol (Acetaminophen) 325 Mg Tablet 1-2 Tab PO QID Vitamin C (Ascorbic Acid) 500 Mg Capsule 500 Mg PO BID Senokot (Sennosides) 8.6 Mg Tablet 1 Tab PO BID PRN 20 Days Potassium Chloride 20 Meq Tablet.er 20 Meq PO DAILY Nystatin 15 Gm Powder 1 Daniela TP BID 7 Days apply to affected area(s) Lasix (Furosemide) 40 Mg Tablet 40 Mg PO BIDBFRMEAL Zoloft (Sertraline Hcl) 50 Mg Tablet 50 Mg PO DAILY Metoprolol Succinate ( Xl ) (Metoprolol Succinate) 25 Mg Tab.er.24h 25 Mg PO DAILY Eliquis (Apixaban) 5 Mg Tablet 2.5 Mg PO BID Slow Release Iron (Ferrous Sulfate) 160 Mg Tablet.er 160 Mg PO DAILY Buspirone Hcl 10 Mg Tablet 1 Tab PO PRN DAILY PRN Atorvastatin Calcium 40 Mg Tablet 40 Mg PO HS Allergies Allergies: Coded Allergies: Sulfa (Sulfonamide Antibiotics) (Verified Adverse Reaction, Intermediate, Nausea and Vomiting, 12/21/20) Vitals VITALS Vital Signs Date Time Temp Pulse Resp B/P (MAP) Pulse Ox O2 Delivery O2 Flow Rate FiO2 01/06/21 14:01 111/56 (74) 01/06/21 10:57 97.5 62 18 92 Room Air 97.5 Labs Labs Laboratory Tests Test 01/04/21 20:36 01/05/21 06:30 01/05/21 07:47 01/05/21 17:28 Glucose (Fingerstick) 111 mg/dL (70-99) 108 mg/dL (70-99) 85 mg/dL (70-99) White Blood Count 7.3 x10^3/uL (4.0-11.0) Red Blood Count 2.62 x10^6/uL (4.30-5.70) Hemoglobin 7.7 g/dL (13.0-17.5) Hematocrit 23.7 % (39.0-53.0) Mean Corpuscular Volume 90 fL (79-100) Mean Corpuscular Hemoglobin 30 pg (25-35) Mean Corpuscular Hemoglobin Concent 33 g/dL (31-37) Red Cell Distribution Width 17.9 % (11.5-14.5) Platelet Count 86 x10^3/uL (140-400) Neutrophils (%) (Auto) 78 % (31-73) Lymphocytes (%) (Auto) 15 % (24-48) Monocytes (%) (Auto) 5 % (0-9) Eosinophils (%) (Auto) 1 % (0-3) Basophils (%) (Auto) 1 % (0-3) Neutrophils # (Auto) 5.7 x10^3/uL (1.8-7.7) Lymphocytes # (Auto) 1.1 x10^3/uL (1.0-4.8) Monocytes # (Auto) 0.4 x10^3/uL (0.0-1.1) Eosinophils # (Auto) 0.1 x10^3/uL (0.0-0.7) Basophils # (Auto) 0.1 x10^3/uL (0.0-0.2) Sodium Level 139 mmol/L (136-145) Potassium Level 4.8 mmol/L (3.5-5.1) Chloride Level 105 mmol/L (98-107) Carbon Dioxide Level 23 mmol/L (21-32) Anion Gap 11 (6-14) Blood Urea Nitrogen 54 mg/dL (8-26) Creatinine 3.5 mg/dL (0.7-1.3) Estimated GFR (Cockcroft-Gault) 17.3 Glucose Level 103 mg/dL (70-99) Calcium Level 8.3 mg/dL (8.5-10.1) Test 01/06/21 07:56 01/06/21 08:55 01/06/21 11:50 01/06/21 17:18 Glucose (Fingerstick) 74 mg/dL (70-99) 118 mg/dL (70-99) 103 mg/dL (70-99) White Blood Count 8.3 x10^3/uL (4.0-11.0) Red Blood Count 2.59 x10^6/uL (4.30-5.70) Hemoglobin 7.7 g/dL (13.0-17.5) Hematocrit 23.3 % (39.0-53.0) Mean Corpuscular Volume 90 fL (79-100) Mean Corpuscular Hemoglobin 30 pg (25-35) Mean Corpuscular Hemoglobin Concent 33 g/dL (31-37) Red Cell Distribution Width 17.9 % (11.5-14.5) Platelet Count 45 x10^3/uL (140-400) Neutrophils (%) (Auto) 68 % (31-73) Lymphocytes (%) (Auto) 19 % (24-48) Monocytes (%) (Auto) 6 % (0-9) Eosinophils (%) (Auto) 6 % (0-3) Basophils (%) (Auto) 1 % (0-3) Neutrophils # (Auto) 5.6 x10^3/uL (1.8-7.7) Lymphocytes # (Auto) 1.6 x10^3/uL (1.0-4.8) Monocytes # (Auto) 0.5 x10^3/uL (0.0-1.1) Eosinophils # (Auto) 0.5 x10^3/uL (0.0-0.7) Basophils # (Auto) 0.1 x10^3/uL (0.0-0.2) Sodium Level 137 mmol/L (136-145) Potassium Level 4.3 mmol/L (3.5-5.1) Chloride Level 102 mmol/L (98-107) Carbon Dioxide Level 23 mmol/L (21-32) Anion Gap 12 (6-14) Blood Urea Nitrogen 43 mg/dL (8-26) Creatinine 3.2 mg/dL (0.7-1.3) Estimated GFR (Cockcroft-Gault) 19.1 BUN/Creatinine Ratio 13 (6-20) Glucose Level 104 mg/dL (70-99) Calcium Level 8.3 mg/dL (8.5-10.1) Phosphorus Level 3.4 mg/dL (2.6-4.7) Magnesium Level 2.2 mg/dL (1.8-2.4) Total Bilirubin 0.8 mg/dL (0.2-1.0) Aspartate Amino Transf (AST/SGOT) 14 U/L (15-37) Alanine Aminotransferase (ALT/SGPT) 6 U/L (16-63) Alkaline Phosphatase 78 U/L (46-116) Total Protein 6.0 g/dL (6.4-8.2) Albumin 2.9 g/dL (3.4-5.0) Albumin/Globulin Ratio 0.9 (1.0-1.7) Laboratory Tests Test 01/06/21 07:56 01/06/21 08:55 01/06/21 11:50 01/06/21 17:18 Glucose (Fingerstick) 74 mg/dL (70-99) 118 mg/dL (70-99) 103 mg/dL (70-99) White Blood Count 8.3 x10^3/uL (4.0-11.0) Red Blood Count 2.59 x10^6/uL (4.30-5.70) Hemoglobin 7.7 g/dL (13.0-17.5) Hematocrit 23.3 % (39.0-53.0) Mean Corpuscular Volume 90 fL (79-100) Mean Corpuscular Hemoglobin 30 pg (25-35) Mean Corpuscular Hemoglobin Concent 33 g/dL (31-37) Red Cell Distribution Width 17.9 % (11.5-14.5) Platelet Count 45 x10^3/uL (140-400) Neutrophils (%) (Auto) 68 % (31-73) Lymphocytes (%) (Auto) 19 % (24-48) Monocytes (%) (Auto) 6 % (0-9) Eosinophils (%) (Auto) 6 % (0-3) Basophils (%) (Auto) 1 % (0-3) Neutrophils # (Auto) 5.6 x10^3/uL (1.8-7.7) Lymphocytes # (Auto) 1.6 x10^3/uL (1.0-4.8) Monocytes # (Auto) 0.5 x10^3/uL (0.0-1.1) Eosinophils # (Auto) 0.5 x10^3/uL (0.0-0.7) Basophils # (Auto) 0.1 x10^3/uL (0.0-0.2) Sodium Level 137 mmol/L (136-145) Potassium Level 4.3 mmol/L (3.5-5.1) Chloride Level 102 mmol/L (98-107) Carbon Dioxide Level 23 mmol/L (21-32) Anion Gap 12 (6-14) Blood Urea Nitrogen 43 mg/dL (8-26) Creatinine 3.2 mg/dL (0.7-1.3) Estimated GFR (Cockcroft-Gault) 19.1 BUN/Creatinine Ratio 13 (6-20) Glucose Level 104 mg/dL (70-99) Calcium Level 8.3 mg/dL (8.5-10.1) Phosphorus Level 3.4 mg/dL (2.6-4.7) Magnesium Level 2.2 mg/dL (1.8-2.4) Total Bilirubin 0.8 mg/dL (0.2-1.0) Aspartate Amino Transf (AST/SGOT) 14 U/L (15-37) Alanine Aminotransferase (ALT/SGPT) 6 U/L (16-63) Alkaline Phosphatase 78 U/L (46-116) Total Protein 6.0 g/dL (6.4-8.2) Albumin 2.9 g/dL (3.4-5.0) Albumin/Globulin Ratio 0.9 (1.0-1.7) YAMILETH CAUSEY MD Jan 06, 2021 18:43
[2021-01-06] MEDS: ATORVASTATIN CALCIUM 40 MG TABLET. PO SCH (22:06)
[2021-01-07 03:00] VITALS: BP 122/56
[2021-01-07 07:00] VITALS: BP 140/66
[2021-01-07 07:43] LABS: CALCIUM 8.5 mg/dL (8.5-10.1); CREATININE 3.8 mg/dL (0.7-1.3); GFR 15.7; POTASSIUM 4.4 mmol/L (3.5-5.1)
[2021-01-07 07:55] LABS: BASO # 0.1 x10^3/uL (0.0-0.2); BASO % 1 % (0-3); EOS # 0.6 x10^3/uL (0.0-0.7); EOS % 8 % (0-3); HEMATOCRIT 22.3 % (39.0-53.0); HEMOGLOBIN 7.3 g/dL (13.0-17.5); LYMPH # 1.8 x10^3/uL (1.0-4.8); LYMPH % 25 % (24-48); MEAN CORPUSCULAR HEMOGLOBIN 30 pg (25-35); MEAN CORPUSCULAR HGB CONC 33 g/dL (31-37); MEAN CORPUSCULAR VOLUME 90 fL (79-100); MONO # 0.6 x10^3/uL (0.0-1.1); MONO % 8 % (0-9); NEUT # 4.4 x10^3/uL (1.8-7.7); NEUT % 59 % (31-73); PLATELET COUNT 43 x10^3/uL (140-400); RED BLOOD COUNT 2.49 x10^6/uL (4.30-5.70); RED CELL DISTRIBUTION WIDTH 17.5 % (11.5-14.5); WHITE BLOOD COUNT 7.4 x10^3/uL (4.0-11.0)
[2021-01-07] MEDS: INSULIN LISPRO 300 UNITS/3 ML VIAL. SQ SCH ×3 (08:00→17:00)
--- NOTE | 2021-01-07 08:42 | PDOC ---
Infectious Disease Note Subjective: Subjective Patient had bout of cough with vomiting earlier this morning Continues to have intermittent nausea Vital Signs: Vital Signs Vital Signs Date Time Temp Pulse Resp B/P (MAP) Pulse Ox O2 Delivery O2 Flow Rate FiO2 01/07/21 03:00 97.8 64 16 122/56 (78) 94 Room Air 97.8 01/06/21 20:00 2.0 Physical Exam: PHYSICAL EXAM GENERAL: Alert, oriented gentleman, not in any distress. HEENT: Both pupils are round and reacting. No conjunctival lesion. No lesion in the mouth. NECK: Supple. RT Tunneled HDC LUNGS: Clear. HEART: S1, S2 regular. Pacer site clean ABDOMEN: Soft, nontender. No organomegaly. Obeses EXTREMITIES: Edema present bilaterally, wound dressing taken down, wound is clean NEUROLOGIC: The patient is alert, awake, and appropriate. No focal neurologic deficit. Medications: Inpatient Meds: Medications reviewed. Labs: Lab Laboratory Tests Test 01/06/21 08:55 01/06/21 11:50 01/06/21 17:18 01/06/21 20:33 White Blood Count 8.3 x10^3/uL (4.0-11.0) Red Blood Count 2.59 x10^6/uL (4.30-5.70) Hemoglobin 7.7 g/dL (13.0-17.5) Hematocrit 23.3 % (39.0-53.0) Mean Corpuscular Volume 90 fL (79-100) Mean Corpuscular Hemoglobin 30 pg (25-35) Mean Corpuscular Hemoglobin Concent 33 g/dL (31-37) Red Cell Distribution Width 17.9 % (11.5-14.5) Platelet Count 45 x10^3/uL (140-400) Neutrophils (%) (Auto) 68 % (31-73) Lymphocytes (%) (Auto) 19 % (24-48) Monocytes (%) (Auto) 6 % (0-9) Eosinophils (%) (Auto) 6 % (0-3) Basophils (%) (Auto) 1 % (0-3) Neutrophils # (Auto) 5.6 x10^3/uL (1.8-7.7) Lymphocytes # (Auto) 1.6 x10^3/uL (1.0-4.8) Monocytes # (Auto) 0.5 x10^3/uL (0.0-1.1) Eosinophils # (Auto) 0.5 x10^3/uL (0.0-0.7) Basophils # (Auto) 0.1 x10^3/uL (0.0-0.2) Sodium Level 137 mmol/L (136-145) Potassium Level 4.3 mmol/L (3.5-5.1) Chloride Level 102 mmol/L (98-107) Carbon Dioxide Level 23 mmol/L (21-32) Anion Gap 12 (6-14) Blood Urea Nitrogen 43 mg/dL (8-26) Creatinine 3.2 mg/dL (0.7-1.3) Estimated GFR (Cockcroft-Gault) 19.1 BUN/Creatinine Ratio 13 (6-20) Glucose Level 104 mg/dL (70-99) Calcium Level 8.3 mg/dL (8.5-10.1) Phosphorus Level 3.4 mg/dL (2.6-4.7) Magnesium Level 2.2 mg/dL (1.8-2.4) Total Bilirubin 0.8 mg/dL (0.2-1.0) Aspartate Amino Transf (AST/SGOT) 14 U/L (15-37) Alanine Aminotransferase (ALT/SGPT) 6 U/L (16-63) Alkaline Phosphatase 78 U/L (46-116) Total Protein 6.0 g/dL (6.4-8.2) Albumin 2.9 g/dL (3.4-5.0) Albumin/Globulin Ratio 0.9 (1.0-1.7) Glucose (Fingerstick) 118 mg/dL (70-99) 103 mg/dL (70-99) 133 mg/dL (70-99) Test 01/07/21 06:55 01/07/21 07:52 White Blood Count 7.4 x10^3/uL (4.0-11.0) Red Blood Count 2.49 x10^6/uL (4.30-5.70) Hemoglobin 7.3 g/dL (13.0-17.5) Hematocrit 22.3 % (39.0-53.0) Mean Corpuscular Volume 90 fL (79-100) Mean Corpuscular Hemoglobin 30 pg (25-35) Mean Corpuscular Hemoglobin Concent 33 g/dL (31-37) Red Cell Distribution Width 17.5 % (11.5-14.5) Platelet Count 43 x10^3/uL (140-400) Neutrophils (%) (Auto) 59 % (31-73) Lymphocytes (%) (Auto) 25 % (24-48) Monocytes (%) (Auto) 8 % (0-9) Eosinophils (%) (Auto) 8 % (0-3) Basophils (%) (Auto) 1 % (0-3) Neutrophils # (Auto) 4.4 x10^3/uL (1.8-7.7) Lymphocytes # (Auto) 1.8 x10^3/uL (1.0-4.8) Monocytes # (Auto) 0.6 x10^3/uL (0.0-1.1) Eosinophils # (Auto) 0.6 x10^3/uL (0.0-0.7) Basophils # (Auto) 0.1 x10^3/uL (0.0-0.2) Sodium Level 140 mmol/L (136-145) Potassium Level 4.4 mmol/L (3.5-5.1) Chloride Level 104 mmol/L (98-107) Carbon Dioxide Level 25 mmol/L (21-32) Anion Gap 11 (6-14) Blood Urea Nitrogen 49 mg/dL (8-26) Creatinine 3.8 mg/dL (0.7-1.3) Estimated GFR (Cockcroft-Gault) 15.7 Glucose Level 97 mg/dL (70-99) Calcium Level 8.5 mg/dL (8.5-10.1) Magnesium Level 2.2 mg/dL (1.8-2.4) Glucose (Fingerstick) 99 mg/dL (70-99) Objective: Assessment: 1. Left calcaneal black eschar. MRI neg for osteo R heel wound - Cellulitis is better 12/30 s/p Left heel excisional debridement subcutaneous tissue and skin Wound pictures reviewed, mild slough area present 2. Peripheral arterial disease. 3. Left big toe ulcer. 4. Obesity. 5. Diabetes. 6. Hypertension. 7. Congestive heart failure. 8. Renal insufficiency. On HD 9. Sulfa allergy 10. Nausea could be drug-induced improved Thrombocytopenia Plan: Plan of Care DC Augmentin and doxycycline Wound /Vac care per wound team Discussed with nursing staff AMADOR ROSA MD Jan 07, 2021 08:42
[2021-01-07] MEDS: hydrALAZINE 25 MG TABLET PO SCH ×3 (09:00→21:07)
[2021-01-07] MEDS: SERTRALINE 50 MG TABLET. PO SCH (09:05)
[2021-01-07] MEDS: METOPROLOL SUCC 24HR ER 25 MG TAB.ER.24H. PO SCH (09:05)
[2021-01-07] MEDS: ASPIRIN ENTERIC COATED 81 MG TABLET.DR. PO SCH (09:05)
[2021-01-07] MEDS: ASCORBIC ACID 500 MG TABLET PO SCH ×2 (09:06→21:06)
[2021-01-07] MEDS: FAMOTIDINE 20 MG TABLET. PO SCH (09:06)
[2021-01-07] MEDS: LACTOBACILLUS RHAMNOSUS GG 1 CAPSULE. PO SCH ×2 (09:06→21:06)
[2021-01-07] MEDS: DOXYCYCLINE HYCLATE 100 MG TABLET PO SCH (09:06)
[2021-01-07] MEDS: AMOXICILLIN/K CLAV 500/125MG TABLET. PO SCH (09:06)
[2021-01-07] MEDS: FERROUS SULFATE 325 MG TABLET. PO SCH ×2 (09:06→17:41)
[2021-01-07] MEDS: NYSTATIN TOPICAL POWDER 15GM BOTTLE. TP SCH ×2 (09:07→21:06)
--- NOTE | 2021-01-07 09:17 | PDOC ---
CARDIO Progress Notes Date and Time Date of Service 01/07/2021 Time of Evaluation 0910 Subjective Subjective: No Chest Pain, No shortness of breath, No Palpitations Vitals Vitals Vital Signs Date Time Temp Pulse Resp B/P (MAP) Pulse Ox O2 Delivery O2 Flow Rate FiO2 01/07/21 09:05 59 140/66 01/07/21 07:00 97.7 16 96 Room Air 97.7 01/06/21 20:00 2.0 Weight Weight [ ] Input and Output Intake and Output Intake and Output 01/07/21 07:00 Intake Total 1500 ml Output Total 76 ml Balance 1424 ml Intake Oral 1500 ml Output Urine Total 75 ml Stool Total 1 ml # Bowel Movements 4 Laboratory Labs Laboratory Tests Test 01/06/21 11:50 01/06/21 17:18 01/06/21 20:33 01/07/21 06:55 Glucose (Fingerstick) 118 mg/dL (70-99) 103 mg/dL (70-99) 133 mg/dL (70-99) White Blood Count 7.4 x10^3/uL (4.0-11.0) Red Blood Count 2.49 x10^6/uL (4.30-5.70) Hemoglobin 7.3 g/dL (13.0-17.5) Hematocrit 22.3 % (39.0-53.0) Mean Corpuscular Volume 90 fL (79-100) Mean Corpuscular Hemoglobin 30 pg (25-35) Mean Corpuscular Hemoglobin Concent 33 g/dL (31-37) Red Cell Distribution Width 17.5 % (11.5-14.5) Platelet Count 43 x10^3/uL (140-400) Neutrophils (%) (Auto) 59 % (31-73) Lymphocytes (%) (Auto) 25 % (24-48) Monocytes (%) (Auto) 8 % (0-9) Eosinophils (%) (Auto) 8 % (0-3) Basophils (%) (Auto) 1 % (0-3) Neutrophils # (Auto) 4.4 x10^3/uL (1.8-7.7) Lymphocytes # (Auto) 1.8 x10^3/uL (1.0-4.8) Monocytes # (Auto) 0.6 x10^3/uL (0.0-1.1) Eosinophils # (Auto) 0.6 x10^3/uL (0.0-0.7) Basophils # (Auto) 0.1 x10^3/uL (0.0-0.2) Sodium Level 140 mmol/L (136-145) Potassium Level 4.4 mmol/L (3.5-5.1) Chloride Level 104 mmol/L (98-107) Carbon Dioxide Level 25 mmol/L (21-32) Anion Gap 11 (6-14) Blood Urea Nitrogen 49 mg/dL (8-26) Creatinine 3.8 mg/dL (0.7-1.3) Estimated GFR (Cockcroft-Gault) 15.7 Glucose Level 97 mg/dL (70-99) Calcium Level 8.5 mg/dL (8.5-10.1) Magnesium Level 2.2 mg/dL (1.8-2.4) Test 01/07/21 07:52 Glucose (Fingerstick) 99 mg/dL (70-99) Review of Systems Constitutional: yes: alert, oriented Ears/Nose/Throat: Yes: no symptom reported Eyes: Yes: no symptom reported Pulmonary: Yes dyspnea Cardiovascular: Yes no symptom reported Gastrointestional: Yes: no symptom reported Genitourinary: Yes: no symptom reported Musculoskeletal: Yes: no symptom reported Skin: Yes no symptom reported Psychiatric/Neurological: Yes: no symptom reported Physical Exam HEENT: Neck Supple W Full Motion Chest: Symmetric LUNGS: Other (diminished ) Heart: irregularly irregular (AFIB) Abdomen: Soft N/T Extremities: Other (anasarca) Neurology: alert, oriented, follow commands Assessment Assessment 1. Anasarca 2. Acute on chronic diastolic CHF; Echo 07/25 with preserved LV systolic function: better compensated 3. Anemia with h/o GIB with cauterization of bleeding antral ulcer. s/p transfusion. no obvious bleeding. Hgb at 7.7 4. CAD; s/p PCI/RHEA to LAD in 2019. clinically stable, CP free. 5. PAD s/p past orbital atherectomy/GAG WRITER to right posterior tibial artery. S/P left foot debridement, wound vac in place. Noted adequate LLE perfusion per aortogram 6. Permanent AFIB; rate controlled on BB 7. SSS; s/p PPM ([employer]). intermittent v-pacing. recent device check with normal function 8. Hypertension; controlled 9. Hyperlipidemia; statin 10. Diabetes, II; as per IM 11. REBECCA on CKD; potentially new ESRD, nephrology following 12. Valvular disease; mild to moderate aortic stenosis 13. Protein calorie malnutrition 14. Hyperkalemia: better Recommendations Fluid off loading per HD Secondary prevention Metoprolol for rate control. Continue ASA OAC on hold with anemia, recent GIB Local wound care Follow up in office February [address] Niki Jimicifation of Admission Dx: Justifications for Admission: Justification of Admission Dx: Yes FRAN COLMENARES [employer] Jan 07, 2021 09:17
--- NOTE | 2021-01-07 09:59 | PDOC ---
DATE OF SERVICE DATE: 01/07/21 TIME: 09:50 SUBJECTIVE ROS Denies any SOB, on room air. c/o some nausea ; recd Zofran yesterday as well . No vomiting OBJECTIVE Vital Signs Vital Signs Date Time Temp Pulse Resp B/P (MAP) Pulse Ox O2 Delivery O2 Flow Rate FiO2 01/07/21 09:05 59 140/66 01/07/21 08:00 Room Air 01/07/21 07:00 97.7 16 96 97.7 01/06/21 20:00 2.0 I & 0 Intake and Output 01/07/21 07:03 Intake Total 1500 ml Output Total 76 ml Balance 1424 ml Intake Oral 1500 ml Output Urine Total 75 ml Stool Total 1 ml # Bowel Movements 4 PHYSICAL EXAM Physical Exam General: NAD HEENT: Atraumatic, OM moist Neck supple Lungs: Clear to auscultation Heart: Bradycardic, ESM aortic) Abdomen: Soft, NT Extremities: Bilat LE edema improved Neuro: grossly normal Psych/Mental Status: Mood NL lowery + , No cva or SP tenderness Skin No rash DIAGNOSIS/ASSESSMENT Assessment & Plan New Onset ESRD- Cardiorenal ,Initiated on Dialysis 01/04 ; 2 nd treatment 01/05 , Dialysis today , discussed treatment plan with Dawna Access Tunneled HDC on 01/04 , Supportive care Daily accurate dina, Awaiting OP chair time (his psychiatric security nurse is from [facility] ) Hep Bs Ag Positive ; Hep B Core Ab Reactive . GI consulted CKD stage 3B/ 4 - Follows with Dr. Roca at [facility] , baseline Cr per [facility] records prior to previous admission 1.8-2.0 but 2.3 to 2.5 since REBECCA recently in November 2020 HypoKalemia - stable, replace as indicated Hx of Acute blood loss anemia secondary to GIB. s/p cauterization of bleeding antral ulcer by GI team and PRBC in November . Hgb this admission low as well - defer to GI Renal calculus - RK- Possible intrarenal stones. LK Possible intrarenal stones to include a 13 mm focus of increased echogenicity at the upper pole.No e/o obstruction reported . Pt denies any past history Worsening LE edema- Bilat LE and anasarca- Wt up compared to his recent admission . off Lasix gtt , currently on Lasix PO BID ,Cardiology managing Left heel wound with dry gangrene and 1st toe ulcer- s/p CO2 angiograph on 12/28 Acute on chronic diastolic CHF; Echo 07/25 with preserved LV systolic function Anemia with h/o GIB with cauterization of bleeding antral ulcer CAD; s/p PCI/RHEA to LAD in 2018. clinically stable, CP free. PAD s/p past orbital atherectomy/INFORMATICS APPLICATION ANALYST to right posterior tibial artery. Permanent AFIB; rate controlled on BB COMMENT/RELEVANT DATA Meds Current Medications Medications (Trade) Dose Ordered Sig/Redd Start Time Stop Time Status Last Admin Dose Admin Acetaminophen (Tylenol) 650 mg PRN Q4HRS PRN 12/20/20 21:45 01/04/21 21:27 650 MG Albumin Human 200 ml @ 200 mls/hr 1X PRN PRN 01/05/21 11:45 01/05/21 17:44 DC Amoxicillin/ Clavulanate Potassium (Augmentin 500/ 125mg) 1 tab DAILY 01/06/21 09:00 01/07/21 09:06 1 TAB Amoxicillin/ Clavulanate Potassium (Augmentin 875/ 125mg) 1 tab BID 12/25/20 09:00 12/31/20 08:43 DC 12/31/20 08:29 1 TAB Apixaban (Eliquis) 2.5 mg BID 12/20/20 22:00 12/21/20 13:36 DC 12/21/20 09:00 2.5 MG Ascorbic Acid (Vitamin C) 500 mg BID 12/20/20 22:00 01/07/21 09:06 500 MG Aspirin (Ecotrin) 81 mg [id number] 01/01/21 08:00 01/07/21 09:05 81 MG Atorvastatin Calcium (Lipitor) 40 mg HS 12/20/20 22:00 01/06/21 22:06 40 MG Buspirone HCl (Buspar) 10 mg PRN DAILY PRN 12/20/20 21:45 01/05/21 00:44 10 MG Cefazolin Sodium/ Dextrose 50 ml @ 100 mls/hr 1X ONCE 01/04/21 11:00 01/04/21 11:29 DC 01/04/21 10:50 100 MLS/HR Dextrose (Dextrose 50%-Water Syringe) 12.5 gm PRN Q15MIN PRN 12/20/20 21:45 Docusate Sodium (Colace) 100 mg PRN DAILY PRN 12/20/20 21:45 Doxycycline Hyclate (Vibra-Tab) 100 mg BID 01/05/21 09:00 01/07/21 09:06 100 MG Famotidine (Pepcid) 20 mg DAILY 12/21/20 09:00 01/07/21 09:06 20 MG Fentanyl Citrate (Fentanyl 2ml Vial) 100 mcg 1X ONCE 01/04/21 11:00 01/04/21 11:01 DC 01/04/21 10:50 50 MCG Ferrous Sulfate (Feosol) 325 mg BIDWMEALS 12/24/20 17:00 01/07/21 09:06 325 MG Ferrous Sulfate (Iron Oral Solution) 300 mg BIDWMEALS 12/22/20 17:00 12/24/20 11:08 DC 12/24/20 08:54 300 MG Furosemide (Lasix) 40 mg [id number] 12/26/20 10:30 12/30/20 11:38 DC 12/30/20 08:58 40 MG Furosemide 100 mg/ Sodium Chloride 100 ml @ 0 mls/hr CONT PRN 12/21/20 11:30 12/26/20 10:28 DC 12/26/20 10:06 10 MLS/HR Heparin Sodium (Porcine) (Heparin Sodium) 2,500 unit 1X ONCE 12/27/20 12:15 12/27/20 12:19 DC 12/27/20 13:08 5,500 UNIT Heparin Sodium/ Sodium Chloride (HEPARIN for ARTERIAL LINE FLUSH) 1,000 unit 1X ONCE 12/27/20 12:15 12/27/20 12:19 DC 12/27/20 13:04 1,000 UNIT Hydralazine HCl (Apresoline) 25 mg TID 12/21/20 09:00 01/06/21 22:06 25 MG Hydromorphone HCl (Dilaudid) 0.5 mg PRN Q10MIN PRN 12/30/20 06:00 12/31/20 05:59 DC Info (PHARMACY MONITORING -- do not chart) 1 each PRN DAILY PRN 01/05/21 11:45 Insulin Glargine (Lantus Syringe) 15 unit QHS 12/20/20 22:00 01/03/21 13:14 DC 01/02/21 21:42 15 UNIT Insulin Human Lispro (HumaLOG) 0-7 UNITS TIDWMEALS 12/21/20 08:00 Iodixanol (Visipaque 320) 100 ml 1X ONCE 12/27/20 12:15 12/27/20 12:19 DC 12/27/20 13:04 30 ML Lactobacillus Rhamnosus (Culturelle) 1 cap BID 12/26/20 21:00 01/07/21 09:06 1 CAP Lidocaine HCl (Lidocaine 1% 20ml Vial) 20 ml STK-MED ONCE 12/30/20 07:50 12/30/20 19:07 DC Lidocaine HCl (Lidocaine Pf 2% Vial) 5 ml STK-MED ONCE 12/30/20 06:36 12/30/20 19:06 DC Lidocaine/ Epinephrine (LIDOCAINE 1%-EPI 1:100,000 Multi-Dose) 20 ml 1X ONCE 01/04/21 11:00 01/04/21 11:01 DC 01/04/21 10:51 14 ML Linezolid (Zyvox) 600 mg BID 12/25/20 09:00 01/02/21 09:10 DC 01/02/21 08:43 600 MG Linezolid/Dextrose 300 ml @ 300 mls/hr Q12HR 01/02/21 21:00 01/05/21 08:35 DC 01/04/21 21:27 300 MLS/HR Metoprolol Succinate (Toprol Xl) 25 mg DAILY 12/21/20 09:00 01/07/21 09:05 25 MG Midazolam HCl (Versed) 2 mg 1X ONCE 01/04/21 11:00 01/04/21 11:01 DC 01/04/21 10:50 1 MG Morphine Sulfate (Morphine Sulfate) 1 mg PRN Q10MIN PRN 12/30/20 06:00 12/31/20 05:59 DC Nystatin (Nystop) 1 luna BID 12/20/20 22:00 01/07/21 09:07 1 LUNA Ondansetron HCl (Zofran) 4 mg PRN Q6HRS PRN 12/20/20 21:45 01/06/21 09:32 4 MG Polyethylene Glycol (miraLAX PACKET) 17 gm PRN DAILY PRN 12/22/20 12:00 Potassium Chloride (Klor-Con) 40 meq DAILY 12/24/20 09:00 01/02/21 11:03 DC 01/01/21 08:47 40 MEQ Prochlorperazine Edisylate (Compazine) 5 mg PACU PRN PRN 12/30/20 06:00 12/31/20 05:59 DC Propofol (Diprivan) 200 mg STK-MED ONCE 12/30/20 07:56 12/30/20 19:08 DC Ringer's Solution 1,000 ml @ 30 mls/hr Q24H 12/30/20 06:00 12/30/20 17:59 DC 12/30/20 07:05 30 MLS/HR Sennosides (Senna) 17.2 mg PRN BID PRN 12/20/20 21:45 01/01/21 08:44 17.2 MG Sertraline HCl (Zoloft) 50 mg DAILY 12/21/20 09:00 01/07/21 09:05 50 MG Sodium Chloride 1,000 ml @ 400 mls/hr Q2H30M PRN 01/05/21 11:45 01/05/21 23:44 DC Lab Laboratory Tests Test 01/06/21 11:50 01/06/21 17:18 01/06/21 20:33 01/07/21 06:55 Glucose (Fingerstick) 118 mg/dL (70-99) 103 mg/dL (70-99) 133 mg/dL (70-99) White Blood Count 7.4 x10^3/uL (4.0-11.0) Red Blood Count 2.49 x10^6/uL (4.30-5.70) Hemoglobin 7.3 g/dL (13.0-17.5) Hematocrit 22.3 % (39.0-53.0) Mean Corpuscular Volume 90 fL (79-100) Mean Corpuscular Hemoglobin 30 pg (25-35) Mean Corpuscular Hemoglobin Concent 33 g/dL (31-37) Red Cell Distribution Width 17.5 % (11.5-14.5) Platelet Count 43 x10^3/uL (140-400) Neutrophils (%) (Auto) 59 % (31-73) Lymphocytes (%) (Auto) 25 % (24-48) Monocytes (%) (Auto) 8 % (0-9) Eosinophils (%) (Auto) 8 % (0-3) Basophils (%) (Auto) 1 % (0-3) Neutrophils # (Auto) 4.4 x10^3/uL (1.8-7.7) Lymphocytes # (Auto) 1.8 x10^3/uL (1.0-4.8) Monocytes # (Auto) 0.6 x10^3/uL (0.0-1.1) Eosinophils # (Auto) 0.6 x10^3/uL (0.0-0.7) Basophils # (Auto) 0.1 x10^3/uL (0.0-0.2) Sodium Level 140 mmol/L (136-145) Potassium Level 4.4 mmol/L (3.5-5.1) Chloride Level 104 mmol/L (98-107) Carbon Dioxide Level 25 mmol/L (21-32) Anion Gap 11 (6-14) Blood Urea Nitrogen 49 mg/dL (8-26) Creatinine 3.8 mg/dL (0.7-1.3) Estimated GFR (Cockcroft-Gault) 15.7 Glucose Level 97 mg/dL (70-99) Calcium Level 8.5 mg/dL (8.5-10.1) Magnesium Level 2.2 mg/dL (1.8-2.4) Test 01/07/21 07:52 Glucose (Fingerstick) 99 mg/dL (70-99) Results All relevant outside records, renal labs, imaging studies, telemetry/EKG's were reviewed. Justicifation of Admission Dx: Justifications for Admission: Justification of Admission Dx: Yes BEATRIZ IBARRA MD Jan 07, 2021 09:59
[2021-01-07] MEDS ORDERED: DIALYSIS PATIENT. MC PRN (10:15)
[2021-01-07] MEDS ORDERED: IV NORMAL SALINE 1000ML BAG 1,000 ML IV PRN ×2 (10:15)
--- NOTE | 2021-01-07 10:39 | PDOC ---
Provider Note Date of Service: DATE: 01/07/21 TIME: 10:34 Provider Note Provider Note Vascular S: pt doing fairly well, reports vomited this am. Has no other complaints. O: VSS, afebrile Awake, alert, in no apparent distress Moderate BLE edema left lower leg wound dressing clean, dry and intact. Left heel wound vac removed. Wound bed with 50/50 granulation tissue and thin layer of brown tissue overlying the calcaneus. Wound edges clean. no active signs of infection. A/P: s/p left heel debridement. - continue wound vac therapy. Stable from Vasc surg standpoint. F/U at wound care center. Angiogram in December showed adequate 2 vessel runoff to foot with POWER TRANSFORMER ASSEMBLER PT. We will sign off. Call with questions or concerns. Justicifation of Admission Dx: Justifications for Admission: Justification of Admission Dx: Yes ROSALBA AARON Jan 07, 2021 10:39
--- NOTE | 2021-01-07 10:42 | PDOC ---
[employer] PROGRESS NOTE Date of Service DOS: DATE: 01/07/21 TIME: 10:41 Chief Complaint Chief Complaint Acute volume overload Acute on chronic CHF exacerbation Hypokalemia History of chronic kidney disease Normocytic anemia, possible chronic GI blood loss with EGD showing antral gastric ulcer Left lower extremity wound ulcer with dry gangrene Morbid obesity, OHS, suspect ROBB Severe protein malnutrition History of diabetes mellitus type 2 History of peripheral vascular disease History of atrial fibrillation History of bradycardia status post pacemaker placement History of peripheral vascular disease Hypertension Dyslipidemia Thrombocytopenia, 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 No regional wall motion abnormalities noted, valvular aortic stenosis. Moderate tricuspid regurgitation with PAP 68 mmHg. Nephrology consult Cardiology consult Trend hemoglobin if less than 7 then transfuse 1 unit Eliquis for DVT prophylaxis Pepcid GI prophylaxis ADA diet Full code Discussed with RN and SW Disposition inpatient management as above Surrogate decision maker is Phuong Mathis History of Present Illness History of Present Illness 01/07/2021 No acute events overnight. No concerns from nursing. We will continue to trend platelets. Pending HIT antibody. Will anticipate discharge if platelets remain stable. Patient's chart, labs, images were reviewed and discussed with RN 01/06/2021 No acute events overnight. Patient is tolerating hemodialysis well. Platelets decreased again down to 45,000 from 56,000. On admission it was greater than 120,000. Pending hematology evaluation. Patient's chart, labs, images were reviewed and discussed with RN 01/05/21 No acute events overnight. Permacath placed yesterday and patient tolerated procedure well and received hemodialysis. Hemodialysis again today. Improved creatinine to 3.5. No other concerns from nursing. Patient's chart, labs, images were reviewed and discussed with RN 01/04/2021 No acute events overnight. Patient seen and examined bedside. Creatinine increased to 4.0. No concerns from nursing at this time. Patient's chart, labs, images were reviewed and discussed with RN. 01/03/2021 No acute events overnight. Patient seen and examined bedside. Creatinine increased to 3.7. Pending further nephrology recommendations for possible HD. No urine output per nursing. Patient's chart, labs, images were reviewed and discussed with RN 01/02/2021 Afebrile, no acute events overnight. Kidney function slightly worse today despite gentle hydration, CR 3.5 (eGFR 17.3). Per nephrology, if no improvement in renal function may need to initiate HD. Continue IV fluids. Continue oral antibiotics for left calcaneal heel cellulitis. 01/01/2021 Afebrile, currently breathing on room air. Creatinine increased to 3.4 today, despite gentle hydration. Will need to discuss with nephrology. Will continue gentle hydration and close monitoring of kidney function. Echocardiogram from 07/16/2020 showed normal left ventricular systolic function, ejection fraction 55-60%; no regional wall motion abnormality, mildmoderate valvular aortic stenosis, mild much regurgitation, moderate tricuspid regurgitation with PAP 68 mmHg. Continue p.o. Augmentin and Zyvox for left calcaneal heel cellulitis. 12/31/2020 Afebrile, no acute events overnight. Wound care is addressing his heels this morning. Plan to have wound VAC placed prior to discharge. BUN 78, creatinine 3.1 today. Due to concerns of worsening renal function and concerns for lack of appropriate follow-up at [facility], will hold discharge today until kidney function can be addressed by nephrology, likely with gentle hydration and close monitoring of kidney function. These methods are being taken to attempt to avoid the need for renal replacement therapy in the future. Discussed with patient and , and they are agreeable to this plan. 12/30/2020 Afebrile, no new complaints today. Had left heel ulcer debridement today. I believe plan is to have wound VAC placed tomorrow. Continue antibiotics, per I D. He will need prison once stable to discharge. Continue p.o. Lasix; continue gentle hydration and monitor kidney function. Creatinine 2.8, eGFR 22.3. 12/29/2020 Afebrile, breathing on room air. Plan is for elective debridement of the left heel ulcer tomorrow. Continue Augmentin and Zyvox, per ID. 12/28/2020 Afebrile, denies shortness of breath. Abdominal aortogram yesterday showed no significant aortoiliac disease bilaterally, isolated left posterior tibial artery occlusion with adequate two-vessel runoff to the distal foot and calcaneal area. Overall the patient is felt to have adequate runoff to the foot for further intervention with debridement of the left heel ulcer. I believe the plan is for elective debridement of left heel ulcer tomorrow. Discussed with RN. 12/27/2020 Afebrile, currently on room air. Off Lasix drip, currently Lasix 40 mg twice daily. Net positive fluid balance overnight, 510mL. Continue p.o. Augmentin and Zyvox. Aortogram pending today. 12/26/2020 No acute events overnight. Patient seen and examined bedside. -2.5 L output in the urine in the past 24 hours. No complaints from the patient. Pending aortogram with LLE runoff with vascular surgery. Follow-up 12/24/2020 Patient was seen and examined in room today. Awaiting plan from vascular/cardio on possible PCI/angio of LLE. Case discussed with RN and case management. Chart and specialist notes reviewed. 12/23/2020 No acute events overnight. Patient seen and examined bedside. Pedal edema has improved total of -2.3 L of urine output. Low potassium today will replace IV and p.o. Creatinine has also improved. Pending MRI versus CT of left lower extremity. Patient's chart, labs, images were reviewed and discussed with RN 12/22/2020 No acute events overnight patient seen and examined bedside. No significant weight loss with Lasix drip. Will defer further fluid offloading with cardiology. Pending MRI and further vascular surgery recommendations for lower extremity foot ulcer. Patient's chart, labs, images were reviewed and discussed with RN 12/21/2020 No acute events overnight. Patient has adequate urine output and feels less fluid overload. Documented -580 cc. Patient's chart, labs, images were reviewed and discussed with RN 75 year old male who was sent here from [facility] for evaluation due to bilateral lower extremity swelling, worsening renal function. He has history of CHF, history of chronic renal failure. Patient was sent here by the PERFORMANCE MANAGER there today for evaluation of bilateral lower extremity swelling and increased renal function test. Patient denies any chest pain, denies any cough or fever. Patient does have trouble breathing with exertion. Patient says they told him to come here to be admitted so they can do colonoscopy because he has been anemic as well. Patient denies any rectal bleeding. His weight today is 147 kg Upon chart review patient was seen in November 04 09/12/2020 for GI bleed.. Eliquis was actually restarted on 11/09/2020. And also had a pacemaker placed on 11/09/2020 and tolerated procedure well. Patient also does follow-up with Dr. Chau with nephrology and his baseline creatinine appears to be between 1.8-2.0. Vitals/I&O Vitals/I&O: Vital Signs Date Time Temp Pulse Resp B/P (MAP) Pulse Ox O2 Delivery O2 Flow Rate FiO2 01/07/21 09:05 59 140/66 01/07/21 08:00 Room Air 01/07/21 07:00 97.7 16 96 97.7 01/06/21 20:00 2.0 I & O 01/06/21 01/06/21 01/07/21 15:00 23:00 07:00 Intake Total 900 ml 200 ml 400 ml Output Total 1 ml 75 ml Balance 900 ml 199 ml 325 ml Physical Exam Physical Exam: GENERAL: Alert, oriented gentleman, not in any distress. HEENT: Both pupils are round and reacting. No conjunctival lesion. No lesion in the mouth. NECK: Supple. RT Tunneled HDC LUNGS: Clear. HEART: S1, S2 regular. Pacer site clean ABDOMEN: Soft, nontender. No organomegaly. Obeses EXTREMITIES: Edema present bilaterally, wound VAC in place not taken down NEUROLOGIC: The patient is alert, awake, and appropriate. No focal neurologic deficit. General: Alert, Oriented X3, Cooperative, No acute distress Heart: Other (2/6 sysotlic murmur, IRRR- tele AFIB. int V pacing ) Lungs: Clear, Other Abdomen: Soft Extremities: Other (2-3+ bilateral LE edema, anasarca ) Skin: No significant lesion Labs Labs: Laboratory Tests Test 01/06/21 11:50 01/06/21 17:18 01/06/21 20:33 01/07/21 06:55 Glucose (Fingerstick) 118 mg/dL (70-99) 103 mg/dL (70-99) 133 mg/dL (70-99) White Blood Count 7.4 x10^3/uL (4.0-11.0) Red Blood Count 2.49 x10^6/uL (4.30-5.70) Hemoglobin 7.3 g/dL (13.0-17.5) Hematocrit 22.3 % (39.0-53.0) Mean Corpuscular Volume 90 fL (79-100) Mean Corpuscular Hemoglobin 30 pg (25-35) Mean Corpuscular Hemoglobin Concent 33 g/dL (31-37) Red Cell Distribution Width 17.5 % (11.5-14.5) Platelet Count 43 x10^3/uL (140-400) Neutrophils (%) (Auto) 59 % (31-73) Lymphocytes (%) (Auto) 25 % (24-48) Monocytes (%) (Auto) 8 % (0-9) Eosinophils (%) (Auto) 8 % (0-3) Basophils (%) (Auto) 1 % (0-3) Neutrophils # (Auto) 4.4 x10^3/uL (1.8-7.7) Lymphocytes # (Auto) 1.8 x10^3/uL (1.0-4.8) Monocytes # (Auto) 0.6 x10^3/uL (0.0-1.1) Eosinophils # (Auto) 0.6 x10^3/uL (0.0-0.7) Basophils # (Auto) 0.1 x10^3/uL (0.0-0.2) Sodium Level 140 mmol/L (136-145) Potassium Level 4.4 mmol/L (3.5-5.1) Chloride Level 104 mmol/L (98-107) Carbon Dioxide Level 25 mmol/L (21-32) Anion Gap 11 (6-14) Blood Urea Nitrogen 49 mg/dL (8-26) Creatinine 3.8 mg/dL (0.7-1.3) Estimated GFR (Cockcroft-Gault) 15.7 Glucose Level 97 mg/dL (70-99) Calcium Level 8.5 mg/dL (8.5-10.1) Magnesium Level 2.2 mg/dL (1.8-2.4) Test 01/07/21 07:52 Glucose (Fingerstick) 99 mg/dL (70-99) Assessment and Plan Assessmemt and Plan Problems Medical Problems: (1) Anemia Status: Acute (2) CHF exacerbation Status: Acute Comment Review of Relevant I have reviewed the following items mara (where applicable) has been applied. Justifications for Admission Other Justification CHF exacerbation KANNAN NELSON MD Jan 07, 2021 10:42
[2021-01-07 11:00] VITALS: BP 122/58
--- NOTE | 2021-01-07 14:57 | PDOC2 ---
CONSULT Date of Consult Date of Consult DATE: 01/07/21 TIME: 14:30 Reason for Consult Reason for Consult: Thrombocytopenia Referring Physician Referring Physician: Dr. Wynn Identification/Chief Complaint Chief Complaint Low Platelets Source Source: Patient History of Present Illness Reason for Visit: Aelksey Nunn is a 75 year old male with hx of chronic systolic HF, PVD, DM2 and CKD who was admitted from [place] after being found to have symptoms and lab findings suggestive of progressive renal insufficiency. He has been seen by Dr Stern in the hospital and hemodialysis was started on 01/04/21. Hematology consultation has been sought due to thrombocytopenia. Platelets were normal at 161 on 01/03 and have declined over the last week to current value of 43K. He has had heparin and started dialysis this week. Other potential med causes include Augmentin. GI bleed in November with Cauterization of ulcer Past Medical History Cardiovascular: AFIB, CAD, CHF, HTN, Hyperlipidemia CENTRAL NERVOUS SYSTEM: Periperal neuropathy GI: GERD, GI bleed Heme/Onc: Anemia NOS Psych: Anxiety, Depression Rheumatologic: Gout Renal/: Chronic renal insuff Endocrine: Diabetes Past Surgical History Past Surgical History: Pacemaker Family History Family History: Heart Disease, Hypertension Social History No ALCOHOL: none Drugs: None Lives: [facility] Current Problem List Problem List Problems Medical Problems: (1) Anemia Status: Acute (2) CHF exacerbation Status: Acute Current Medications Current Medications Current Medications Apixaban (Eliquis) 2.5 mg BID PO Last administered on 12/21/20at 09:00; Start 12/20/20 at 22:00; Stop 12/21/20 at 13:36; Status DC Atorvastatin Calcium (Lipitor) 40 mg HS PO Last administered on 01/06/21at 22:06; Start 12/20/20 at 22:00 Buspirone HCl (Buspar) 10 mg PRN DAILY PRN PO ANXIETY / AGITATION Last administered on 01/05/21at 00:44; Start 12/20/20 at 21:45 Famotidine (Pepcid) 20 mg DAILY PO Last administered on 01/07/21at 09:06; Start 12/21/20 at 09:00 Hydralazine HCl (Apresoline) 25 mg TID PO Last administered on 01/06/21at 22:06; Start 12/21/20 at 09:00 Insulin Glargine (Lantus Syringe) 15 unit QHS SQ Last administered on 01/02/21 21:42; Start 12/20/20 at 22:00; Stop 01/03/21 at 13:14; Status DC Metoprolol Succinate (Toprol Xl) 25 mg DAILY PO Last administered on 01/07/21 09:05; Start 12/21/20 at 09:00 Nystatin (Nystop) 1 daniela BID TP Last administered on 01/07/21 09:07; Start 12/20/20 at 22:00 Sennosides (Senna) 8.6 mg PRN BID PRN PO CONSTIPATION 1ST CHOICE; Start 12/20/20 at 21:45; Stop 12/20/20 at 21:52; Status DC Sertraline HCl (Zoloft) 50 mg DAILY PO Last administered on 01/07/21 09:05; Start 12/21/20 at 09:00 Ascorbic Acid (Vitamin C) 500 mg BID PO Last administered on 01/07/21 09:06; Start 12/20/20 at 22:00 Furosemide (Lasix) 40 mg 1X ONCE IVP Last administered on 12/20/20 23:03; Start 12/20/20 at 21:45; Stop 12/20/20 at 21:46; Status DC Sennosides (Senna) 17.2 mg PRN BID PRN PO CONSTIPATION, 2ND CHOICE Last administered on 01/01/21 08:44; Start 12/20/20 at 21:45 Docusate Sodium (Colace) 100 mg PRN DAILY PRN PO HARD STOOLS; Start 12/20/20 at 21:45 Ondansetron HCl (Zofran) 4 mg PRN Q6HRS PRN IVP NAUSEA/VOMITING Last administered on 01/06/21 09:32; Start 12/20/20 at 21:45 Insulin Human Lispro (HumaLOG) 0-7 UNITS TIDWMEALS SQ ; Start 12/21/20 at 08:00 Dextrose (Dextrose 50%-Water Syringe) 12.5 gm PRN Q15MIN PRN IV SEE COMMENTS; Start 12/20/20 at 21:45 Acetaminophen (Tylenol) 650 mg PRN Q4HRS PRN PO TEMP OVER 100.4F OR MILD PAIN Last administered on 01/04/21at 21:27; Start 12/20/20 at 21:45 Furosemide 100 mg/ Sodium Chloride 100 ml @ 0 mls/hr CONT PRN IV SEE I/O RECORD Last administered on 12/26/20at 10:06; Start 12/21/20 at 11:30; Stop 12/26/20 at 10:28; Status DC Potassium Chloride (Klor-Con) 20 meq 1X ONCE PO Last administered on 12/21/20at 14:02; Start 12/21/20 at 12:15; Stop 12/21/20 at 12:16; Status DC Potassium Chloride (Klor-Con) 40 meq 1X ONCE PO Last administered on 12/22/20at 08:39; Start 12/22/20 at 08:30; Stop 12/22/20 at 08:31; Status DC Ferrous Sulfate (Iron Oral Solution) 300 mg BIDWMEALS PO Last administered on 12/24/20at 08:54; Start 12/22/20 at 17:00; Stop 12/24/20 at 11:08; Status DC Polyethylene Glycol (miraLAX PACKET) 17 gm PRN DAILY PRN PO CONSTIPATION, 1ST CHOICE; Start 12/22/20 at 12:00 Potassium Chloride (Klor-Con) 40 meq 1X ONCE PO Last administered on 12/23/20at 06:54; Start 12/23/20 at 07:00; Stop 12/23/20 at 07:01; Status DC Potassium Chloride (Klor-Con) 40 meq 1X ONCE PO Last administered on 12/23/20at 08:54; Start 12/23/20 at 09:00; Stop 12/23/20 at 09:01; Status DC Potassium Chloride (Klor-Con) 40 meq DAILY PO Last administered on 01/01/21at 08:47; Start 12/24/20 at 09:00; Stop 01/02/21 at 11:03; Status DC Ferrous Sulfate (Feosol) 325 mg BIDWMEALS PO Last administered on 01/07/21at 09:06; Start 12/24/20 at 17:00 Linezolid (Zyvox) 600 mg BID PO Last administered on 01/02/21at 08:43; Start 12/25/20 at 09:00; Stop 01/02/21 at 09:10; Status DC Amoxicillin/ Clavulanate Potassium (Augmentin 875/ 125mg) 1 tab BID PO Last administered on 12/31/20at 08:29; Start 12/25/20 at 09:00; Stop 12/31/20 at 08:43; Status DC Furosemide (Lasix) 40 mg BID94 PO Last administered on 12/30/20at 08:58; Start 12/26/20 at 10:30; Stop 12/30/20 at 11:38; Status DC Lactobacillus Rhamnosus (Culturelle) 1 cap BID PO Last administered on 01/07/21at 09:06; Start 12/26/20 at 21:00 Iodixanol (Visipaque 320) 100 ml STK-MED ONCE .ROUTE ; Start 12/27/20 at 10:35; Stop 12/27/20 at 10:35; Status DC Lidocaine HCl (Lidocaine 1% 20ml Vial) 20 ml STK-MED ONCE .ROUTE ; Start 12/27/20 at 10:35; Stop 12/27/20 at 10:35; Status DC Heparin Sodium/ Sodium Chloride 1,000 ml @ As Directed STK-MED ONCE .ROUTE ; Start 12/27/20 at 10:35; Stop 12/27/20 at 10:35; Status DC Midazolam HCl (Versed) 5 mg STK-MED ONCE .ROUTE ; Start 12/27/20 at 11:40; Stop 12/27/20 at 11:40; Status DC Fentanyl Citrate (Fentanyl 2ml Vial) 100 mcg STK-MED ONCE .ROUTE ; Start 12/27/20 at 11:40; Stop 12/27/20 at 11:40; Status DC Heparin Sodium (Porcine) (Heparin Sodium) 10,000 unit STK-MED ONCE .ROUTE ; Start 12/27/20 at 11:40; Stop 12/27/20 at 11:40; Status DC Heparin Sodium/ Sodium Chloride (HEPARIN for ARTERIAL LINE FLUSH) 1,000 unit 1X ONCE IART Last administered on 12/27/20at 13:04; Start 12/27/20 at 12:15; Stop 12/27/20 at 12:19; Status DC Heparin Sodium/ Sodium Chloride (HEPARIN for ARTERIAL LINE FLUSH) 1,000 unit 1X ONCE IART Last administered on 12/27/20at 13:04; Start 12/27/20 at 12:15; Stop 12/27/20 at 12:19; Status DC Midazolam HCl (Versed) 5 mg 1X ONCE IV Last administered on 12/27/20at 13:05; Start 12/27/20 at 12:15; Stop 12/27/20 at 12:19; Status DC Fentanyl Citrate (Fentanyl 2ml Vial) 100 mcg 1X ONCE IV Last administered on 12/27/20at 13:06; Start 12/27/20 at 12:15; Stop 12/27/20 at 12:19; Status DC Iodixanol (Visipaque 320) 100 ml 1X ONCE IART Last administered on 12/27/20at 13:04; Start 12/27/20 at 12:15; Stop 12/27/20 at 12:19; Status DC Heparin Sodium (Porcine) (Heparin Sodium) 2,500 unit 1X ONCE IV Last administered on 12/27/20at 13:08; Start 12/27/20 at 12:15; Stop 12/27/20 at 12:19; Status DC Lidocaine HCl (Lidocaine 1% 20ml Vial) 20 ml 1X ONCE INJ Last administered on 12/27/20at 13:04; Start 12/27/20 at 12:15; Stop 12/27/20 at 12:19; Status DC Fentanyl Citrate (Fentanyl 2ml Vial) 25 mcg PRN Q5MIN PRN IVP MILD PAIN 1-3; Start 12/30/20 at 06:00; Stop 12/31/20 at 05:59; Status DC Fentanyl Citrate (Fentanyl 2ml Vial) 50 mcg PRN Q5MIN PRN IVP MODERATE PAIN 4- 6; Start 12/30/20 at 06:00; Stop 12/31/20 at 05:59; Status DC Morphine Sulfate (Morphine Sulfate) 1 mg PRN Q10MIN PRN IVP SEVERE PAIN 7-10; Start 12/30/20 at 06:00; Stop 12/31/20 at 05:59; Status DC Ringer's Solution 1,000 ml @ 30 mls/hr Q24H IV Last administered on 12/30/20at 07:05; Start 12/30/20 at 06:00; Stop 12/30/20 at 17:59; Status DC Hydromorphone HCl (Dilaudid) 0.5 mg PRN Q10MIN PRN IVP SEVERE PAIN 7-10, 2nd CHOICE; Start 12/30/20 at 06:00; Stop 12/31/20 at 05:59; Status DC Prochlorperazine Edisylate (Compazine) 5 mg PACU PRN PRN IVP NAUSEA, MRX1; Start 12/30/20 at 06:00; Stop 12/31/20 at 05:59; Status DC Cefazolin Sodium/ Dextrose 50 ml @ 100 mls/hr 1X ONCE IV Last administered on 12/30/20at 07:20; Start 12/30/20 at 08:00; Stop 12/30/20 at 08:29; Status DC Sodium Chloride 500 ml @ 75 mls/hr 1X ONCE IV Last administered on 12/30/20at 17:44; Start 12/30/20 at 18:00; Stop 12/31/20 at 00:39; Status DC Propofol (Diprivan) 200 mg STK-MED ONCE IV ; Start 12/30/20 at 06:36; Stop 12/30/20 at 19:06; Status DC Lidocaine HCl (Lidocaine Pf 2% Vial) 5 ml STK-MED ONCE .ROUTE ; Start 12/30/20 at 06:36; Stop 12/30/20 at 19:06; Status DC Lidocaine HCl (Lidocaine 1% 20ml Vial) 20 ml STK-MED ONCE .ROUTE ; Start 12/30/20 at 07:50; Stop 12/30/20 at 19:07; Status DC Propofol (Diprivan) 200 mg STK-MED ONCE IV ; Start 12/30/20 at 07:56; Stop 12/30/20 at 19:08; Status DC Amoxicillin/ Clavulanate Potassium (Augmentin 500/ 125mg) 1 tab BID PO ; Start 12/31/20 at 09:00; Stop 12/31/20 at 09:10; Status DC Amoxicillin/ Clavulanate Potassium (Augmentin 500/ 125mg) 1 tab BID PO Last administered on 01/04/21at 21:27; Start 12/31/20 at 21:00; Stop 01/05/21 at 15:34; Status DC Sodium Chloride 1,000 ml @ 75 mls/hr 1X ONCE IV Last administered on 12/31/20at 11:27; Start 12/31/20 at 11:30; Stop 01/01/21 at 00:49; Status DC Aspirin (Ecotrin) 81 mg DAILYWBKFT PO Last administered on 01/07/21at 09:05; Start 01/01/21 at 08:00 Sodium Chloride 1,000 ml @ 75 mls/hr [id number] IV Last administered on 01/03/21at 05:20; Start 01/01/21 at 12:00; Stop 01/03/21 at 12:55; Status DC Linezolid/Dextrose 300 ml @ 300 mls/hr Q12HR IV Last administered on 01/04/21at 21:27; Start 01/02/21 at 21:00; Stop 01/05/21 at 08:35; Status DC Lidocaine/ Epinephrine (LIDOCAINE 1%-EPI 1:100,000 Multi-Dose) 20 ml STK-MED ONCE .ROUTE ; Start 01/04/21 at 10:00; Stop 01/04/21 at 10:00; Status DC Midazolam HCl (Versed) 2 mg STK-MED ONCE .ROUTE ; Start 01/04/21 at 10:31; Stop 01/04/21 at 10:31; Status DC Fentanyl Citrate (Fentanyl 2ml Vial) 100 mcg STK-MED ONCE .ROUTE ; Start 01/04/21 at 10:31; Stop 01/04/21 at 10:31; Status DC Cefazolin Sodium/ Dextrose 50 ml @ As Directed STK-MED ONCE IV ; Start 01/04/21 at 10:31; Stop 01/04/21 at 10:31; Status DC Midazolam HCl (Versed) 2 mg 1X ONCE IV Last administered on 01/04/21at 10:50; Start 01/04/21 at 11:00; Stop 01/04/21 at 11:01; Status DC Fentanyl Citrate (Fentanyl 2ml Vial) 100 mcg 1X ONCE IV Last administered on 01/04/21at 10:50; Start 01/04/21 at 11:00; Stop 01/04/21 at 11:01; Status DC Lidocaine/ Epinephrine (LIDOCAINE 1%-EPI 1:100,000 Multi-Dose) 20 ml 1X ONCE SQ Last administered on 01/04/21at 10:51; Start 01/04/21 at 11:00; Stop 01/04/21 at 11:01; Status DC Cefazolin Sodium/ Dextrose 50 ml @ 100 mls/hr 1X ONCE IV Last administered on 01/04/21at 10:50; Start 01/04/21 at 11:00; Stop 01/04/21 at 11:29; Status DC Sodium Chloride 1,000 ml @ 1,000 mls/hr Q1H PRN IV hypotension; Start 01/04/21 at 11:00; Stop 01/04/21 at 16:59; Status DC Albumin Human 200 ml @ 200 mls/hr 1X PRN PRN IV Hypotension; Start 01/04/21 at 11:00; Stop 01/04/21 at 16:59; Status DC Sodium Chloride 1,000 ml @ 400 mls/hr Q2H30M PRN IV PATENCY; Start 01/04/21 at 11:00; Stop 01/04/21 at 22:59; Status DC Info (PHARMACY MONITORING -- do not chart) 1 each PRN DAILY PRN MC SEE COMMENTS; Start 01/04/21 at 12:45; Status UNV Info (PHARMACY MONITORING -- do not chart) 1 each PRN DAILY PRN MC SEE COMMENTS; Start 01/04/21 at 12:45; Stop 01/05/21 at 15:39; Status DC Doxycycline Hyclate (Vibra-Tab) 100 mg BID PO Last administered on 01/07/21at 09:06; Start 01/05/21 at 09:00; Stop 01/07/21 at 11:03; Status DC Sodium Chloride 1,000 ml @ 1,000 mls/hr Q1H PRN IV hypotension; Start 01/05/21 at 11:45; Stop 01/05/21 at 17:44; Status DC Albumin Human 200 ml @ 200 mls/hr 1X PRN PRN IV Hypotension; Start 01/05/21 at 11:45; Stop 01/05/21 at 17:44; Status DC Sodium Chloride 1,000 ml @ 400 mls/hr Q2H30M PRN IV PATENCY; Start 01/05/21 at 11:45; Stop 01/05/21 at 23:44; Status DC Info (PHARMACY MONITORING -- do not chart) 1 each PRN DAILY PRN MC SEE COMMENTS; Start 01/05/21 at 11:45; Status UNV Info (PHARMACY MONITORING -- do not chart) 1 each PRN DAILY PRN MC SEE COMMENTS; Start 01/05/21 at 11:45 Amoxicillin/ Clavulanate Potassium (Augmentin 500/ 125mg) 1 tab DAILY PO Last administered on 01/07/21at 09:06; Start 01/06/21 at 09:00; Stop 01/07/21 at 11:03; Status DC Sodium Chloride 1,000 ml @ 1,000 mls/hr Q1H PRN IV hypotension; Start 01/07/21 at 10:15; Stop 01/07/21 at 16:14 Sodium Chloride 1,000 ml @ 400 mls/hr Q2H30M PRN IV PATENCY; Start 01/07/21 at 10:15; Stop 01/07/21 at 22:14 Info (PHARMACY MONITORING -- do not chart) 1 each PRN DAILY PRN MC SEE COMMENTS; Start 01/07/21 at 10:15; Status UNV Active Scripts Active Lantus (Insulin Glargine,Hum.rec.anlog) 100 Unit/1 Ml Vial 15 Unit SQ QHS 30 Days Famotidine 20 Mg Tablet 20 Mg PO DAILY 30 Days Acetaminophen Supp (Acetaminophen) 650 Mg Supp.rect 650 Mg [place] PRN Q4HRS PRN 30 Days Hydralazine Hcl 25 Mg Tablet 25 Mg PO TID 30 Days Reported Tylenol (Acetaminophen) 325 Mg Tablet 1-2 Tab PO QID Vitamin C (Ascorbic Acid) 500 Mg Capsule 500 Mg PO BID Senokot (Sennosides) 8.6 Mg Tablet 1 Tab PO BID PRN 20 Days Potassium Chloride 20 Meq Tablet.er 20 Meq PO DAILY Nystatin 15 Gm Powder 1 Daniela TP BID 7 Days apply to affected area(s) Lasix (Furosemide) 40 Mg Tablet 40 Mg PO BIDBFRMEAL Zoloft (Sertraline Hcl) 50 Mg Tablet 50 Mg PO DAILY Metoprolol Succinate ( Xl ) (Metoprolol Succinate) 25 Mg Tab.er.24h 25 Mg PO DAILY Eliquis (Apixaban) 5 Mg Tablet 2.5 Mg PO BID Slow Release Iron (Ferrous Sulfate) 160 Mg Tablet.er 160 Mg PO DAILY Buspirone Hcl 10 Mg Tablet 1 Tab PO PRN DAILY PRN Atorvastatin Calcium 40 Mg Tablet 40 Mg PO HS Allergies Allergies: Coded Allergies: Sulfa (Sulfonamide Antibiotics) (Verified Adverse Reaction, Intermediate, Nausea and Vomiting, 12/21/20) ROS General: YES: Fatigue, Appetite (Decreased) Eyes: Yes Blurry vision HEENT: YES: Heacaches, Oral lesions (Bruising on tongue) ALLERGY AND IMMUNOLOGY: No: Itchy/Watery Eyes, Nasal Congestion Hematological and Lymphatic: YES: Blood Transfusions; No: Blood Clots Respiratory: YES: Shortness of breath; No: Cough, Hemoptysis Cardiovascular: yes Palpitations, yes Edema Gastrointestinal: No Nausea, No Vomiting, No Hematochezia Genitourinary: YES Dysuria, YES Other (Heller) Skin: Yes Skin Lesion Changes (Dressing on feet. Dry gangrene present. ) Physical Exam General: Alert, Cooperative, No acute distress HEENT: Atraumatic, PERRLA, EOMI, Mucous membr. moist/pink, Other (Bruise right anterior tongue) Lungs: Other (Decreased breath sounds with few rhonchi) Heart: Other (Irr irr with soft systolic murmur) Abdomen: Soft, No tenderness, No hepatosplenomegaly Extremities: No cyanosis, Other (2 + edema bilaterally) Skin: Other (Dressing present Right heel and Curlex wrapped left ankle foot. ) Neuro: Normal speech, Cranial nerves 3-12 NL MUSCULOSKELETAL: No swelling Vitals VITALS Vital Signs Date Time Temp Pulse Resp B/P (MAP) Pulse Ox O2 Delivery O2 Flow Rate FiO2 01/07/21 11:00 97.9 73 16 122/58 (79) 96 Room Air 97.9 01/06/21 20:00 2.0 Labs Labs Laboratory Tests Test 01/05/21 17:28 01/06/21 07:56 01/06/21 08:55 01/06/21 11:50 Glucose (Fingerstick) 85 mg/dL (70-99) 74 mg/dL (70-99) 118 mg/dL (70-99) White Blood Count 8.3 x10^3/uL (4.0-11.0) Red Blood Count 2.59 x10^6/uL (4.30-5.70) Hemoglobin 7.7 g/dL (13.0-17.5) Hematocrit 23.3 % (39.0-53.0) Mean Corpuscular Volume 90 fL (79-100) Mean Corpuscular Hemoglobin 30 pg (25-35) Mean Corpuscular Hemoglobin Concent 33 g/dL (31-37) Red Cell Distribution Width 17.9 % (11.5-14.5) Platelet Count 45 x10^3/uL (140-400) Neutrophils (%) (Auto) 68 % (31-73) Lymphocytes (%) (Auto) 19 % (24-48) Monocytes (%) (Auto) 6 % (0-9) Eosinophils (%) (Auto) 6 % (0-3) Basophils (%) (Auto) 1 % (0-3) Neutrophils # (Auto) 5.6 x10^3/uL (1.8-7.7) Lymphocytes # (Auto) 1.6 x10^3/uL (1.0-4.8) Monocytes # (Auto) 0.5 x10^3/uL (0.0-1.1) Eosinophils # (Auto) 0.5 x10^3/uL (0.0-0.7) Basophils # (Auto) 0.1 x10^3/uL (0.0-0.2) Sodium Level 137 mmol/L (136-145) Potassium Level 4.3 mmol/L (3.5-5.1) Chloride Level 102 mmol/L (98-107) Carbon Dioxide Level 23 mmol/L (21-32) Anion Gap 12 (6-14) Blood Urea Nitrogen 43 mg/dL (8-26) Creatinine 3.2 mg/dL (0.7-1.3) Estimated GFR (Cockcroft-Gault) 19.1 BUN/Creatinine Ratio 13 (6-20) Glucose Level 104 mg/dL (70-99) Calcium Level 8.3 mg/dL (8.5-10.1) Phosphorus Level 3.4 mg/dL (2.6-4.7) Magnesium Level 2.2 mg/dL (1.8-2.4) Total Bilirubin 0.8 mg/dL (0.2-1.0) Aspartate Amino Transf (AST/SGOT) 14 U/L (15-37) Alanine Aminotransferase (ALT/SGPT) 6 U/L (16-63) Alkaline Phosphatase 78 U/L (46-116) Total Protein 6.0 g/dL (6.4-8.2) Albumin 2.9 g/dL (3.4-5.0) Albumin/Globulin Ratio 0.9 (1.0-1.7) Test 01/06/21 17:18 01/06/21 20:33 01/07/21 06:55 01/07/21 07:52 Glucose (Fingerstick) 103 mg/dL (70-99) 133 mg/dL (70-99) 99 mg/dL (70-99) White Blood Count 7.4 x10^3/uL (4.0-11.0) Red Blood Count 2.49 x10^6/uL (4.30-5.70) Hemoglobin 7.3 g/dL (13.0-17.5) Hematocrit 22.3 % (39.0-53.0) Mean Corpuscular Volume 90 fL (79-100) Mean Corpuscular Hemoglobin 30 pg (25-35) Mean Corpuscular Hemoglobin Concent 33 g/dL (31-37) Red Cell Distribution Width 17.5 % (11.5-14.5) Platelet Count 43 x10^3/uL (140-400) Neutrophils (%) (Auto) 59 % (31-73) Lymphocytes (%) (Auto) 25 % (24-48) Monocytes (%) (Auto) 8 % (0-9) Eosinophils (%) (Auto) 8 % (0-3) Basophils (%) (Auto) 1 % (0-3) Neutrophils # (Auto) 4.4 x10^3/uL (1.8-7.7) Lymphocytes # (Auto) 1.8 x10^3/uL (1.0-4.8) Monocytes # (Auto) 0.6 x10^3/uL (0.0-1.1) Eosinophils # (Auto) 0.6 x10^3/uL (0.0-0.7) Basophils # (Auto) 0.1 x10^3/uL (0.0-0.2) Sodium Level 140 mmol/L (136-145) Potassium Level 4.4 mmol/L (3.5-5.1) Chloride Level 104 mmol/L (98-107) Carbon Dioxide Level 25 mmol/L (21-32) Anion Gap 11 (6-14) Blood Urea Nitrogen 49 mg/dL (8-26) Creatinine 3.8 mg/dL (0.7-1.3) Estimated GFR (Cockcroft-Gault) 15.7 Glucose Level 97 mg/dL (70-99) Calcium Level 8.5 mg/dL (8.5-10.1) Magnesium Level 2.2 mg/dL (1.8-2.4) Test 01/07/21 11:50 Glucose (Fingerstick) 144 mg/dL (70-99) Laboratory Tests Test 01/06/21 17:18 01/06/21 20:33 01/07/21 06:55 01/07/21 07:52 Glucose (Fingerstick) 103 mg/dL (70-99) 133 mg/dL (70-99) 99 mg/dL (70-99) White Blood Count 7.4 x10^3/uL (4.0-11.0) Red Blood Count 2.49 x10^6/uL (4.30-5.70) Hemoglobin 7.3 g/dL (13.0-17.5) Hematocrit 22.3 % (39.0-53.0) Mean Corpuscular Volume 90 fL (79-100) Mean Corpuscular Hemoglobin 30 pg (25-35) Mean Corpuscular Hemoglobin Concent 33 g/dL (31-37) Red Cell Distribution Width 17.5 % (11.5-14.5) Platelet Count 43 x10^3/uL (140-400) Neutrophils (%) (Auto) 59 % (31-73) Lymphocytes (%) (Auto) 25 % (24-48) Monocytes (%) (Auto) 8 % (0-9) Eosinophils (%) (Auto) 8 % (0-3) Basophils (%) (Auto) 1 % (0-3) Neutrophils # (Auto) 4.4 x10^3/uL (1.8-7.7) Lymphocytes # (Auto) 1.8 x10^3/uL (1.0-4.8) Monocytes # (Auto) 0.6 x10^3/uL (0.0-1.1) Eosinophils # (Auto) 0.6 x10^3/uL (0.0-0.7) Basophils # (Auto) 0.1 x10^3/uL (0.0-0.2) Sodium Level 140 mmol/L (136-145) Potassium Level 4.4 mmol/L (3.5-5.1) Chloride Level 104 mmol/L (98-107) Carbon Dioxide Level 25 mmol/L (21-32) Anion Gap 11 (6-14) Blood Urea Nitrogen 49 mg/dL (8-26) Creatinine 3.8 mg/dL (0.7-1.3) Estimated GFR (Cockcroft-Gault) 15.7 Glucose Level 97 mg/dL (70-99) Calcium Level 8.5 mg/dL (8.5-10.1) Magnesium Level 2.2 mg/dL (1.8-2.4) Test 01/07/21 11:50 Glucose (Fingerstick) 144 mg/dL (70-99) Assessment/Plan Assessment/Plan Thrombocytopenia worsening since 01/03 after heparin administration and starting dialysis. Need to rule out HIT and test ordered. Augmentin could be another cause. Would recommend following and avoiding any heparin like substances. Currently on Eliquis and no evidence of thrombosis. Dr Alfonso with see patient in follow up. 2. Anemia. Recent GI bleed with Cauterization of bleeding ulcer with current hemoglobin of 7.3. Would recommend transfusion based on AF and CHF. 3. AF 4. CHF 5. Hep B Surface antigen positive. Seeing GI 6. Chronic Kidney disease Starting Dialysis 7. DM 8. PVD with dry gangrene and ulcer 9. 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
--- NOTE | 2021-01-07 16:04 | NUR ---
SS following up with discharge planning. SS reviewed pt chart and discussed with pt RN. Pt is currently on room air. Wound vac in place. COVID19 negative. Pt has confirmed outpatient dialysis chair time at [address] [address], ; fax [phone], Sunday, , and Sunday at 0600. PT/OT recommended correction unit. Pt accepted at [facility], ; fax [phone]. SS will continue to follow for discharge planning.
--- NOTE | 2021-01-07 17:14 | PDOC ---
G I PROGRESS NOTE Reason for Follow-up Chronic illness anemia Subjective No new complaints Physical Exam Lungs clear CV S1 S2 ABD +BS, soft, nontender Review of Relevant I have reviewed the following items mara (where applicable) has been applied. Labs Laboratory Tests Test 01/05/21 17:28 01/06/21 07:56 01/06/21 08:55 01/06/21 11:50 Glucose (Fingerstick) 85 mg/dL (70-99) 74 mg/dL (70-99) 118 mg/dL (70-99) White Blood Count 8.3 x10^3/uL (4.0-11.0) Red Blood Count 2.59 x10^6/uL (4.30-5.70) Hemoglobin 7.7 g/dL (13.0-17.5) Hematocrit 23.3 % (39.0-53.0) Mean Corpuscular Volume 90 fL (79-100) Mean Corpuscular Hemoglobin 30 pg (25-35) Mean Corpuscular Hemoglobin Concent 33 g/dL (31-37) Red Cell Distribution Width 17.9 % (11.5-14.5) Platelet Count 45 x10^3/uL (140-400) Neutrophils (%) (Auto) 68 % (31-73) Lymphocytes (%) (Auto) 19 % (24-48) Monocytes (%) (Auto) 6 % (0-9) Eosinophils (%) (Auto) 6 % (0-3) Basophils (%) (Auto) 1 % (0-3) Neutrophils # (Auto) 5.6 x10^3/uL (1.8-7.7) Lymphocytes # (Auto) 1.6 x10^3/uL (1.0-4.8) Monocytes # (Auto) 0.5 x10^3/uL (0.0-1.1) Eosinophils # (Auto) 0.5 x10^3/uL (0.0-0.7) Basophils # (Auto) 0.1 x10^3/uL (0.0-0.2) Sodium Level 137 mmol/L (136-145) Potassium Level 4.3 mmol/L (3.5-5.1) Chloride Level 102 mmol/L (98-107) Carbon Dioxide Level 23 mmol/L (21-32) Anion Gap 12 (6-14) Blood Urea Nitrogen 43 mg/dL (8-26) Creatinine 3.2 mg/dL (0.7-1.3) Estimated GFR (Cockcroft-Gault) 19.1 BUN/Creatinine Ratio 13 (6-20) Glucose Level 104 mg/dL (70-99) Calcium Level 8.3 mg/dL (8.5-10.1) Phosphorus Level 3.4 mg/dL (2.6-4.7) Magnesium Level 2.2 mg/dL (1.8-2.4) Total Bilirubin 0.8 mg/dL (0.2-1.0) Aspartate Amino Transf (AST/SGOT) 14 U/L (15-37) Alanine Aminotransferase (ALT/SGPT) 6 U/L (16-63) Alkaline Phosphatase 78 U/L (46-116) Total Protein 6.0 g/dL (6.4-8.2) Albumin 2.9 g/dL (3.4-5.0) Albumin/Globulin Ratio 0.9 (1.0-1.7) Test 01/06/21 17:18 01/06/21 20:33 01/07/21 06:55 01/07/21 07:52 Glucose (Fingerstick) 103 mg/dL (70-99) 133 mg/dL (70-99) 99 mg/dL (70-99) White Blood Count 7.4 x10^3/uL (4.0-11.0) Red Blood Count 2.49 x10^6/uL (4.30-5.70) Hemoglobin 7.3 g/dL (13.0-17.5) Hematocrit 22.3 % (39.0-53.0) Mean Corpuscular Volume 90 fL (79-100) Mean Corpuscular Hemoglobin 30 pg (25-35) Mean Corpuscular Hemoglobin Concent 33 g/dL (31-37) Red Cell Distribution Width 17.5 % (11.5-14.5) Platelet Count 43 x10^3/uL (140-400) Neutrophils (%) (Auto) 59 % (31-73) Lymphocytes (%) (Auto) 25 % (24-48) Monocytes (%) (Auto) 8 % (0-9) Eosinophils (%) (Auto) 8 % (0-3) Basophils (%) (Auto) 1 % (0-3) Neutrophils # (Auto) 4.4 x10^3/uL (1.8-7.7) Lymphocytes # (Auto) 1.8 x10^3/uL (1.0-4.8) Monocytes # (Auto) 0.6 x10^3/uL (0.0-1.1) Eosinophils # (Auto) 0.6 x10^3/uL (0.0-0.7) Basophils # (Auto) 0.1 x10^3/uL (0.0-0.2) Sodium Level 140 mmol/L (136-145) Potassium Level 4.4 mmol/L (3.5-5.1) Chloride Level 104 mmol/L (98-107) Carbon Dioxide Level 25 mmol/L (21-32) Anion Gap 11 (6-14) Blood Urea Nitrogen 49 mg/dL (8-26) Creatinine 3.8 mg/dL (0.7-1.3) Estimated GFR (Cockcroft-Gault) 15.7 Glucose Level 97 mg/dL (70-99) Calcium Level 8.5 mg/dL (8.5-10.1) Magnesium Level 2.2 mg/dL (1.8-2.4) Test 01/07/21 11:50 01/07/21 16:51 Glucose (Fingerstick) 144 mg/dL (70-99) 103 mg/dL (70-99) Laboratory Tests Test 01/06/21 17:18 01/06/21 20:33 01/07/21 06:55 01/07/21 07:52 Glucose (Fingerstick) 103 mg/dL (70-99) 133 mg/dL (70-99) 99 mg/dL (70-99) White Blood Count 7.4 x10^3/uL (4.0-11.0) Red Blood Count 2.49 x10^6/uL (4.30-5.70) Hemoglobin 7.3 g/dL (13.0-17.5) Hematocrit 22.3 % (39.0-53.0) Mean Corpuscular Volume 90 fL (79-100) Mean Corpuscular Hemoglobin 30 pg (25-35) Mean Corpuscular Hemoglobin Concent 33 g/dL (31-37) Red Cell Distribution Width 17.5 % (11.5-14.5) Platelet Count 43 x10^3/uL (140-400) Neutrophils (%) (Auto) 59 % (31-73) Lymphocytes (%) (Auto) 25 % (24-48) Monocytes (%) (Auto) 8 % (0-9) Eosinophils (%) (Auto) 8 % (0-3) Basophils (%) (Auto) 1 % (0-3) Neutrophils # (Auto) 4.4 x10^3/uL (1.8-7.7) Lymphocytes # (Auto) 1.8 x10^3/uL (1.0-4.8) Monocytes # (Auto) 0.6 x10^3/uL (0.0-1.1) Eosinophils # (Auto) 0.6 x10^3/uL (0.0-0.7) Basophils # (Auto) 0.1 x10^3/uL (0.0-0.2) Sodium Level 140 mmol/L (136-145) Potassium Level 4.4 mmol/L (3.5-5.1) Chloride Level 104 mmol/L (98-107) Carbon Dioxide Level 25 mmol/L (21-32) Anion Gap 11 (6-14) Blood Urea Nitrogen 49 mg/dL (8-26) Creatinine 3.8 mg/dL (0.7-1.3) Estimated GFR (Cockcroft-Gault) 15.7 Glucose Level 97 mg/dL (70-99) Calcium Level 8.5 mg/dL (8.5-10.1) Magnesium Level 2.2 mg/dL (1.8-2.4) Test 01/07/21 11:50 01/07/21 16:51 Glucose (Fingerstick) 144 mg/dL (70-99) 103 mg/dL (70-99) Medications Current Medications Apixaban (Eliquis) 2.5 mg BID PO Last administered on 12/21/20at 09:00; Start 12/20/20 at 22:00; Stop 12/21/20 at 13:36; Status DC Atorvastatin Calcium (Lipitor) 40 mg HS PO Last administered on 01/06/21at 22:06; Start 12/20/20 at 22:00 Buspirone HCl (Buspar) 10 mg PRN DAILY PRN PO ANXIETY / AGITATION Last administered on 01/05/21 00:44; Start 12/20/20 at 21:45 Famotidine (Pepcid) 20 mg DAILY PO Last administered on 01/07/21 09:06; Start 12/21/20 at 09:00 Hydralazine HCl (Apresoline) 25 mg TID PO Last administered on 01/06/21 22:06; Start 12/21/20 at 09:00 Insulin Glargine (Lantus Syringe) 15 unit QHS SQ Last administered on 01/02/21 21:42; Start 12/20/20 at 22:00; Stop 01/03/21 at 13:14; Status DC Metoprolol Succinate (Toprol Xl) 25 mg DAILY PO Last administered on 01/07/21 09:05; Start 12/21/20 at 09:00 Nystatin (Nystop) 1 daniela BID TP Last administered on 01/07/21 09:07; Start 12/20/20 at 22:00 Sennosides (Senna) 8.6 mg PRN BID PRN PO CONSTIPATION 1ST CHOICE; Start 12/20/20 at 21:45; Stop 12/20/20 at 21:52; Status DC Sertraline HCl (Zoloft) 50 mg DAILY PO Last administered on 01/07/21 09:05; Start 12/21/20 at 09:00 Ascorbic Acid (Vitamin C) 500 mg BID PO Last administered on 01/07/21 09:06; Start 12/20/20 at 22:00 Furosemide (Lasix) 40 mg 1X ONCE IVP Last administered on 12/20/20 23:03; Start 12/20/20 at 21:45; Stop 12/20/20 at 21:46; Status DC Sennosides (Senna) 17.2 mg PRN BID PRN PO CONSTIPATION, 2ND CHOICE Last administered on 01/01/21 08:44; Start 12/20/20 at 21:45 Docusate Sodium (Colace) 100 mg PRN DAILY PRN PO HARD STOOLS; Start 12/20/20 at 21:45 Ondansetron HCl (Zofran) 4 mg PRN Q6HRS PRN IVP NAUSEA/VOMITING Last administered on 6/3/21at 09:32; Start 12/20/20 at 21:45 Insulin Human Lispro (HumaLOG) 0-7 UNITS TIDWMEALS SQ ; Start 12/21/20 at 08:00 Dextrose (Dextrose 50%-Water Syringe) 12.5 gm PRN Q15MIN PRN IV SEE COMMENTS; Start 12/20/20 at 21:45 Acetaminophen (Tylenol) 650 mg PRN Q4HRS PRN PO TEMP OVER 100.4F OR MILD PAIN Last administered on 01/04/21at 21:27; Start 12/20/20 at 21:45 Furosemide 100 mg/ Sodium Chloride 100 ml @ 0 mls/hr CONT PRN IV SEE I/O RECORD Last administered on 12/26/20at 10:06; Start 12/21/20 at 11:30; Stop 12/26/20 at 10:28; Status DC Potassium Chloride (Klor-Con) 20 meq 1X ONCE PO Last administered on 12/21/20at 14:02; Start 12/21/20 at 12:15; Stop 12/21/20 at 12:16; Status DC Potassium Chloride (Klor-Con) 40 meq 1X ONCE PO Last administered on 12/22/20at 08:39; Start 12/22/20 at 08:30; Stop 12/22/20 at 08:31; Status DC Ferrous Sulfate (Iron Oral Solution) 300 mg BIDWMEALS PO Last administered on 12/24/20at 08:54; Start 12/22/20 at 17:00; Stop 12/24/20 at 11:08; Status DC Polyethylene Glycol (miraLAX PACKET) 17 gm PRN DAILY PRN PO CONSTIPATION, 1ST CHOICE; Start 12/22/20 at 12:00 Potassium Chloride (Klor-Con) 40 meq 1X ONCE PO Last administered on 12/23/20at 06:54; Start 12/23/20 at 07:00; Stop 12/23/20 at 07:01; Status DC Potassium Chloride (Klor-Con) 40 meq 1X ONCE PO Last administered on 12/23/20at 08:54; Start 12/23/20 at 09:00; Stop 12/23/20 at 09:01; Status DC Potassium Chloride (Klor-Con) 40 meq DAILY PO Last administered on 01/01/21at 08:47; Start 12/24/20 at 09:00; Stop 01/02/21 at 11:03; Status DC Ferrous Sulfate (Feosol) 325 mg BIDWMEALS PO Last administered on 01/07/21 09:06; Start 12/24/20 at 17:00 Linezolid (Zyvox) 600 mg BID PO Last administered on 01/02/21at 08:43; Start 12/25/20 at 09:00; Stop 01/02/21 at 09:10; Status DC Amoxicillin/ Clavulanate Potassium (Augmentin 875/ 125mg) 1 tab BID PO Last administered on 12/31/20at 08:29; Start 12/25/20 at 09:00; Stop 12/31/20 at 08:43; Status DC Furosemide (Lasix) 40 mg BID94 PO Last administered on 12/30/20at 08:58; Start 12/26/20 at 10:30; Stop 12/30/20 at 11:38; Status DC Lactobacillus Rhamnosus (Culturelle) 1 cap BID PO Last administered on 01/07/21at 09:06; Start 12/26/20 at 21:00 Iodixanol (Visipaque 320) 100 ml STK-MED ONCE .ROUTE ; Start 12/27/20 at 10:35; Stop 12/27/20 at 10:35; Status DC Lidocaine HCl (Lidocaine 1% 20ml Vial) 20 ml STK-MED ONCE .ROUTE ; Start 12/27/20 at 10:35; Stop 12/27/20 at 10:35; Status DC Heparin Sodium/ Sodium Chloride 1,000 ml @ As Directed STK-MED ONCE .ROUTE ; Start 12/27/20 at 10:35; Stop 12/27/20 at 10:35; Status DC Midazolam HCl (Versed) 5 mg STK-MED ONCE .ROUTE ; Start 12/27/20 at 11:40; Stop 12/27/20 at 11:40; Status DC Fentanyl Citrate (Fentanyl 2ml Vial) 100 mcg STK-MED ONCE .ROUTE ; Start 12/27/20 at 11:40; Stop 12/27/20 at 11:40; Status DC Heparin Sodium (Porcine) (Heparin Sodium) 10,000 unit STK-MED ONCE .ROUTE ; Start 12/27/20 at 11:40; Stop 12/27/20 at 11:40; Status DC Heparin Sodium/ Sodium Chloride (HEPARIN for ARTERIAL LINE FLUSH) 1,000 unit 1X ONCE IART Last administered on 12/27/20at 13:04; Start 12/27/20 at 12:15; Stop 12/27/20 at 12:19; Status DC Heparin Sodium/ Sodium Chloride (HEPARIN for ARTERIAL LINE FLUSH) 1,000 unit 1X ONCE IART Last administered on 12/27/20at 13:04; Start 12/27/20 at 12:15; Stop 12/27/20 at 12:19; Status DC Midazolam HCl (Versed) 5 mg 1X ONCE IV Last administered on 12/27/20at 13:05; Start 12/27/20 at 12:15; Stop 12/27/20 at 12:19; Status DC Fentanyl Citrate (Fentanyl 2ml Vial) 100 mcg 1X ONCE IV Last administered on 12/27/20at 13:06; Start 12/27/20 at 12:15; Stop 12/27/20 at 12:19; Status DC Iodixanol (Visipaque 320) 100 ml 1X ONCE IART Last administered on 12/27/20at 13:04; Start 12/27/20 at 12:15; Stop 12/27/20 at 12:19; Status DC Heparin Sodium (Porcine) (Heparin Sodium) 2,500 unit 1X ONCE IV Last administered on 12/27/20at 13:08; Start 12/27/20 at 12:15; Stop 12/27/20 at 12:19; Status DC Lidocaine HCl (Lidocaine 1% 20ml Vial) 20 ml 1X ONCE INJ Last administered on 12/27/20at 13:04; Start 12/27/20 at 12:15; Stop 12/27/20 at 12:19; Status DC Fentanyl Citrate (Fentanyl 2ml Vial) 25 mcg PRN Q5MIN PRN IVP MILD PAIN 1-3; Start 12/30/20 at 06:00; Stop 12/31/20 at 05:59; Status DC Fentanyl Citrate (Fentanyl 2ml Vial) 50 mcg PRN Q5MIN PRN IVP MODERATE PAIN 4- 6; Start 12/30/20 at 06:00; Stop 12/31/20 at 05:59; Status DC Morphine Sulfate (Morphine Sulfate) 1 mg PRN Q10MIN PRN IVP SEVERE PAIN 7-10; Start 12/30/20 at 06:00; Stop 12/31/20 at 05:59; Status DC Ringer's Solution 1,000 ml @ 30 mls/hr Q24H IV Last administered on 12/30/20at 07:05; Start 12/30/20 at 06:00; Stop 12/30/20 at 17:59; Status DC Hydromorphone HCl (Dilaudid) 0.5 mg PRN Q10MIN PRN IVP SEVERE PAIN 7-10, 2nd CHOICE; Start 12/30/20 at 06:00; Stop 12/31/20 at 05:59; Status DC Prochlorperazine Edisylate (Compazine) 5 mg PACU PRN PRN IVP NAUSEA, MRX1; Start 12/30/20 at 06:00; Stop 12/31/20 at 05:59; Status DC Cefazolin Sodium/ Dextrose 50 ml @ 100 mls/hr 1X ONCE IV Last administered on 12/30/20at 07:20; Start 12/30/20 at 08:00; Stop 12/30/20 at 08:29; Status DC Sodium Chloride 500 ml @ 75 mls/hr 1X ONCE IV Last administered on 12/30/20at 17:44; Start 12/30/20 at 18:00; Stop 12/31/20 at 00:39; Status DC Propofol (Diprivan) 200 mg STK-MED ONCE IV ; Start 12/30/20 at 06:36; Stop 12/30/20 at 19:06; Status DC Lidocaine HCl (Lidocaine Pf 2% Vial) 5 ml STK-MED ONCE .ROUTE ; Start 12/30/20 at 06:36; Stop 12/30/20 at 19:06; Status DC Lidocaine HCl (Lidocaine 1% 20ml Vial) 20 ml STK-MED ONCE .ROUTE ; Start 12/30/20 at 07:50; Stop 12/30/20 at 19:07; Status DC Propofol (Diprivan) 200 mg STK-MED ONCE IV ; Start 12/30/20 at 07:56; Stop 12/30/20 at 19:08; Status DC Amoxicillin/ Clavulanate Potassium (Augmentin 500/ 125mg) 1 tab BID PO ; Start 12/31/20 at 09:00; Stop 12/31/20 at 09:10; Status DC Amoxicillin/ Clavulanate Potassium (Augmentin 500/ 125mg) 1 tab BID PO Last administered on 01/04/21at 21:27; Start 12/31/20 at 21:00; Stop 01/05/21 at 15:34; Status DC Sodium Chloride 1,000 ml @ 75 mls/hr 1X ONCE IV Last administered on 12/31/20at 11:27; Start 12/31/20 at 11:30; Stop 01/01/21 at 00:49; Status DC Aspirin (Ecotrin) 81 mg [id number] PO Last administered on 01/07/21at 09:05; Start 01/01/21 at 08:00 Sodium Chloride 1,000 ml @ 75 mls/hr [id number] IV Last administered on 01/03/21at 05:20; Start 01/01/21 at 12:00; Stop 01/03/21 at 12:55; Status DC Linezolid/Dextrose 300 ml @ 300 mls/hr Q12HR IV Last administered on 01/04/21at 21:27; Start 01/02/21 at 21:00; Stop 01/05/21 at 08:35; Status DC Lidocaine/ Epinephrine (LIDOCAINE 1%-EPI 1:100,000 Multi-Dose) 20 ml STK-MED ONCE .ROUTE ; Start 01/04/21 at 10:00; Stop 01/04/21 at 10:00; Status DC Midazolam HCl (Versed) 2 mg STK-MED ONCE .ROUTE ; Start 01/04/21 at 10:31; Stop 01/04/21 at 10:31; Status DC Fentanyl Citrate (Fentanyl 2ml Vial) 100 mcg STK-MED ONCE .ROUTE ; Start 01/04/21 at 10:31; Stop 01/04/21 at 10:31; Status DC Cefazolin Sodium/ Dextrose 50 ml @ As Directed STK-MED ONCE IV ; Start 01/04/21 at 10:31; Stop 01/04/21 at 10:31; Status DC Midazolam HCl (Versed) 2 mg 1X ONCE IV Last administered on 01/04/21at 10:50; Start 01/04/21 at 11:00; Stop 01/04/21 at 11:01; Status DC Fentanyl Citrate (Fentanyl 2ml Vial) 100 mcg 1X ONCE IV Last administered on 01/04/21at 10:50; Start 01/04/21 at 11:00; Stop 01/04/21 at 11:01; Status DC Lidocaine/ Epinephrine (LIDOCAINE 1%-EPI 1:100,000 Multi-Dose) 20 ml 1X ONCE SQ Last administered on 01/04/21at 10:51; Start 01/04/21 at 11:00; Stop 01/04/21 at 11:01; Status DC Cefazolin Sodium/ Dextrose 50 ml @ 100 mls/hr 1X ONCE IV Last administered on 01/04/21at 10:50; Start 01/04/21 at 11:00; Stop 01/04/21 at 11:29; Status DC Sodium Chloride 1,000 ml @ 1,000 mls/hr Q1H PRN IV hypotension; Start 01/04/21 at 11:00; Stop 01/04/21 at 16:59; Status DC Albumin Human 200 ml @ 200 mls/hr 1X PRN PRN IV Hypotension; Start 01/04/21 at 11:00; Stop 01/04/21 at 16:59; Status DC Sodium Chloride 1,000 ml @ 400 mls/hr Q2H30M PRN IV PATENCY; Start 01/04/21 at 11:00; Stop 01/04/21 at 22:59; Status DC Info (PHARMACY MONITORING -- do not chart) 1 each PRN DAILY PRN MC SEE COMMENTS; Start 01/04/21 at 12:45; Status UNV Info (PHARMACY MONITORING -- do not chart) 1 each PRN DAILY PRN MC SEE COMMENTS; Start 01/04/21 at 12:45; Stop 01/05/21 at 15:39; Status DC Doxycycline Hyclate (Vibra-Tab) 100 mg BID PO Last administered on 01/07/21at 09:06; Start 01/05/21 at 09:00; Stop 01/07/21 at 11:03; Status DC Sodium Chloride 1,000 ml @ 1,000 mls/hr Q1H PRN IV hypotension; Start 01/05/21 at 11:45; Stop 01/05/21 at 17:44; Status DC Albumin Human 200 ml @ 200 mls/hr 1X PRN PRN IV Hypotension; Start 01/05/21 at 11:45; Stop 01/05/21 at 17:44; Status DC Sodium Chloride 1,000 ml @ 400 mls/hr Q2H30M PRN IV PATENCY; Start 01/05/21 at 11:45; Stop 01/05/21 at 23:44; Status DC Info (PHARMACY MONITORING -- do not chart) 1 each PRN DAILY PRN MC SEE COMMENTS; Start 01/05/21 at 11:45; Status UNV Info (PHARMACY MONITORING -- do not chart) 1 each PRN DAILY PRN MC SEE COMMENTS; Start 01/05/21 at 11:45 Amoxicillin/ Clavulanate Potassium (Augmentin 500/ 125mg) 1 tab DAILY PO Last administered on 01/07/21at 09:06; Start 01/06/21 at 09:00; Stop 01/07/21 at 11:03; Status DC Sodium Chloride 1,000 ml @ 1,000 mls/hr Q1H PRN IV hypotension; Start 01/07/21 at 10:15; Stop 01/07/21 at 16:14; Status DC Sodium Chloride 1,000 ml @ 400 mls/hr Q2H30M PRN IV PATENCY; Start 01/07/21 at 10:15; Stop 01/07/21 at 22:14 Info (PHARMACY MONITORING -- do not chart) 1 each PRN DAILY PRN MC SEE COMMENTS; Start 01/07/21 at 10:15; Status UNV Active Scripts Active Lantus (Insulin Glargine,Hum.rec.anlog) 100 Unit/1 Ml Vial 15 Unit SQ QHS 30 Days Famotidine 20 Mg Tablet 20 Mg PO DAILY 30 Days Acetaminophen Supp (Acetaminophen) 650 Mg Supp.rect 650 Mg NV PRN Q4HRS PRN 30 Days Hydralazine Hcl 25 Mg Tablet 25 Mg PO TID 30 Days Reported Tylenol (Acetaminophen) 325 Mg Tablet 1-2 Tab PO QID Vitamin C (Ascorbic Acid) 500 Mg Capsule 500 Mg PO BID Senokot (Sennosides) 8.6 Mg Tablet 1 Tab PO BID PRN 20 Days Potassium Chloride 20 Meq Tablet.er 20 Meq PO DAILY Nystatin 15 Gm Powder 1 Daniela TP BID 7 Days apply to affected area(s) Lasix (Furosemide) 40 Mg Tablet 40 Mg PO BIDBFRMEAL Zoloft (Sertraline Hcl) 50 Mg Tablet 50 Mg PO DAILY Metoprolol Succinate ( Xl ) (Metoprolol Succinate) 25 Mg Tab.er.24h 25 Mg PO DAILY Eliquis (Apixaban) 5 Mg Tablet 2.5 Mg PO BID Slow Release Iron (Ferrous Sulfate) 160 Mg Tablet.er 160 Mg PO DAILY Buspirone Hcl 10 Mg Tablet 1 Tab PO PRN DAILY PRN Atorvastatin Calcium 40 Mg Tablet 40 Mg PO HS Vitals/I & O Vital Sign - Last 24 Hours 01/06/21 01/06/21 01/06/21 01/06/21 19:00 20:00 22:06 23:15 Temp 98.2 98.5 98.2 98.5 Pulse 63 63 62 Resp 20 24 B/P (MAP) 128/52 (77) 128/52 134/63 (86) Pulse Ox 90 94 O2 Delivery Room Air Room Air Room Air O2 Flow Rate 2.0 01/07/21 01/07/21 01/07/21 01/07/21 03:00 07:00 08:00 09:05 Temp 97.8 97.7 97.8 97.7 Pulse 64 59 59 Resp 16 16 B/P (MAP) 122/56 (78) 140/66 (90) 140/66 Pulse Ox 94 96 O2 Delivery Room Air Room Air Room Air 01/07/21 11:00 Temp 97.9 97.9 Pulse 73 Resp 16 B/P (MAP) 122/58 (79) Pulse Ox 96 O2 Delivery Room Air Intake and Output 01/06/21 01/06/21 01/07/21 14:59 22:59 06:59 Intake Total 900 ml 200 ml 400 ml Output Total 1 ml 75 ml Balance 900 ml 199 ml 325 ml Problem List Problems Medical Problems: (1) Anemia Status: Acute (2) CHF exacerbation Status: Acute Assessment Chronic illness anemia- Hg stable, Hep B Ag positive, ideally quantitative viral laod is checked to ascertain if active viral replication is present. Will free text order and see if allowed. anti-viral therapy would be most likely needed if virus is detectable to reduce risk of contaminating dialysis equipment Justicifation of Admission Dx: Justifications for Admission: Justification of Admission Dx: Yes PHILLIP FLETCHER MD Jan 07, 2021 17:14
--- NOTE | 2021-01-07 18:03 | NUR ---
Wound Care Pt seen for wound vac change of L heel, TATA Henry had already photographed and redressed wounds earlier in the day, assuming pt was discharging to [facility] today. Left heel wound appears wet cleaner machine, with red granulation tissue present around perimeter, adipose tissue centrally. 1 piece of silver foam placed into wound bed, foam tracked over drape onto L dorsal foot. Vac showing strong seal at -125 mmHg continuous suction. [facility] has vac waiting for pt when he transfers, RN instructed to just disconnect tubing and cover with a glove to send to [facility], and place our vac in soiled utility room. AGGIE Corcoran with wound care will follow pt at facility.
--- NOTE | 2021-01-07 18:33 | NUR ---
Received phone call from Verito at [facility] location, patient can't go to this clinic because he is hep B positive. Will have to go to clinic with isolation.
[2021-01-07 19:35] VITALS: BP 107/54
[2021-01-07] MEDS: ATORVASTATIN CALCIUM 40 MG TABLET. PO SCH (21:06)
[2021-01-07 23:10] VITALS: BP 118/58
[2021-01-08] VITALS (10 sets, daily range): BP systolic 119–212; BP diastolic 53–69
--- NOTE | 2021-01-08 07:46 | PDOC ---
Infectious Disease Note Subjective: Subjective Patient feels much better this morning Further episodes of nausea or vomiting or abdominal pain No fevers, shortness of breath or cough Vital Signs: Vital Signs Vital Signs Date Time Temp Pulse Resp B/P (MAP) Pulse Ox O2 Delivery O2 Flow Rate FiO2 01/08/21 07:29 Room Air 01/08/21 03:30 98.0 60 21 135/58 (83) 94 98.0 Physical Exam: PHYSICAL EXAM GENERAL: Alert, oriented gentleman, not in any distress. HEENT: Both pupils are round and reacting. No conjunctival lesion. No lesion in the mouth. NECK: Supple. RT Tunneled HDC LUNGS: Clear. HEART: S1, S2 regular. Pacer site clean ABDOMEN: Soft, nontender. No organomegaly. Obeses EXTREMITIES: Edema present bilaterally, wound dressing taken down, wound is clean NEUROLOGIC: The patient is alert, awake, and appropriate. No focal neurologic deficit. Medications: Inpatient Meds: Medications reviewed. Labs: Lab Laboratory Tests Test 01/07/21 07:52 01/07/21 11:50 01/07/21 16:51 01/07/21 20:40 Glucose (Fingerstick) 99 mg/dL (70-99) 144 mg/dL (70-99) 103 mg/dL (70-99) 122 mg/dL (70-99) Objective: Assessment: 1. Left calcaneal black eschar. MRI neg for osteo R heel wound - Cellulitis is better 12/30 s/p Left heel excisional debridement subcutaneous tissue and skin 2. Peripheral arterial disease. 3. Left big toe ulcer. 4. Obesity. 5. Diabetes. 6. Hypertension. 7. Congestive heart failure. 8. Renal insufficiency. On HD 9. Sulfa allergy 10. Nausea 11. Thrombocytopenia 12. Hepatitis B surface antigen positive, hepatitis B surface antibody negative 13. Chronic anemia Plan: Plan of Care Monitor off antibiotics Maintain aspiration precaution Wound /Vac care per wound team Discussed with nursing staff AMADOR ROSA MD Jan 08, 2021 07:46
[2021-01-08] MEDS: INSULIN LISPRO 300 UNITS/3 ML VIAL. SQ SCH ×3 (08:00→17:00)
[2021-01-08] MEDS: LACTOBACILLUS RHAMNOSUS GG 1 CAPSULE. PO SCH ×2 (09:09→20:42)
[2021-01-08] MEDS: hydrALAZINE 25 MG TABLET PO SCH ×3 (09:09→20:43)
[2021-01-08] MEDS: FAMOTIDINE 20 MG TABLET. PO SCH (09:09)
[2021-01-08] MEDS: ASPIRIN ENTERIC COATED 81 MG TABLET.DR. PO SCH (09:09)
[2021-01-08] MEDS: FERROUS SULFATE 325 MG TABLET. PO SCH ×2 (09:09→17:45)
[2021-01-08] MEDS: SERTRALINE 50 MG TABLET. PO SCH (09:09)
[2021-01-08] MEDS: NYSTATIN TOPICAL POWDER 15GM BOTTLE. TP SCH ×2 (09:10→20:44)
[2021-01-08] MEDS: ASCORBIC ACID 500 MG TABLET PO SCH ×2 (09:10→20:42)
[2021-01-08] MEDS: METOPROLOL SUCC 24HR ER 25 MG TAB.ER.24H. PO SCH (09:10)
[2021-01-08 10:16] LABS: BASO # 0.1 x10^3/uL (0.0-0.2); BASO % 1 % (0-3); EOS # 0.5 x10^3/uL (0.0-0.7); EOS % 8 % (0-3); HEMATOCRIT 22.6 % (39.0-53.0); HEMOGLOBIN 7.4 g/dL (13.0-17.5); LYMPH # 1.5 x10^3/uL (1.0-4.8); LYMPH % 23 % (24-48); MEAN CORPUSCULAR HEMOGLOBIN 29 pg (25-35); MEAN CORPUSCULAR HGB CONC 33 g/dL (31-37); MEAN CORPUSCULAR VOLUME 89 fL (79-100); MONO # 0.7 x10^3/uL (0.0-1.1); MONO % 10 % (0-9); NEUT # 3.9 x10^3/uL (1.8-7.7); NEUT % 59 % (31-73); PLATELET COUNT 27 x10^3/uL (140-400); RED BLOOD COUNT 2.54 x10^6/uL (4.30-5.70); RED CELL DISTRIBUTION WIDTH 17.4 % (11.5-14.5); WHITE BLOOD COUNT 6.7 x10^3/uL (4.0-11.0)
[2021-01-08 10:30] LABS: CALCIUM 8.3 mg/dL (8.5-10.1); CREATININE 3.2 mg/dL (0.7-1.3); GFR 19.1; POTASSIUM 3.9 mmol/L (3.5-5.1)
[2021-01-08] MEDS ORDERED: ACETAMINOPHEN 325 MG TABLET. PO PRN (11:45)
--- NOTE | 2021-01-08 11:52 | PDOC ---
[employer] PROGRESS NOTE Date of Service DOS: DATE: 01/08/21 TIME: 11:49 Chief Complaint Chief Complaint Acute volume overload Acute on chronic CHF exacerbation Hypokalemia History of chronic kidney disease Normocytic anemia, possible chronic GI blood loss with EGD showing antral gastric ulcer Left lower extremity wound ulcer with dry gangrene Morbid obesity, OHS, suspect ROBB Severe protein malnutrition History of diabetes mellitus type 2 History of peripheral vascular disease History of atrial fibrillation History of bradycardia status post pacemaker placement History of peripheral vascular disease Hypertension Dyslipidemia Thrombocytopenia, 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 No regional wall motion abnormalities noted, valvular aortic stenosis. Moderate tricuspid regurgitation with PAP 68 mmHg. Nephrology consult Cardiology consult Trend hemoglobin if less than 7 then transfuse 1 unit Eliquis for DVT prophylaxis Pepcid GI prophylaxis ADA diet Full code Discussed with RN and SW Disposition inpatient management as above Surrogate decision maker is Phuong Mathis History of Present Illness History of Present Illness 01/08/2021 No acute events overnight. No concerns per nursing. Patient seen and examined bedside and no complaints at this time. Hemoglobin below recommended threshold for ESRD and CAD patients. Will transfuse 1 unit PRBC today. Hemoglobin is not downtrending. However, platelets are downtrending today is 27,000. We will continue to monitor and consider platelet transfusion if there is any spontaneous bleeding or if it downtrends below 20,000 by tomorrow. Pending HIT antibody. Further recommendations from hematology would be appreciated. Patient's chart, labs, images were reviewed and discussed with RN 01/07/2021 No acute events overnight. No concerns from nursing. We will continue to trend platelets. Pending HIT antibody. Will anticipate discharge if platelets remain stable. Patient's chart, labs, images were reviewed and discussed with RN 01/06/2021 No acute events overnight. Patient is tolerating hemodialysis well. Platelets decreased again down to 45,000 from 56,000. On admission it was greater than 120,000. Pending hematology evaluation. Patient's chart, labs, images were reviewed and discussed with RN 01/05/21 No acute events overnight. Permacath placed yesterday and patient tolerated procedure well and received hemodialysis. Hemodialysis again today. Improved creatinine to 3.5. No other concerns from nursing. Patient's chart, labs, im ages were reviewed and discussed with RN 01/04/2021 No acute events overnight. Patient seen and examined bedside. Creatinine in creased to 4.0. No concerns from nursing at this time. Patient's chart, labs, images were reviewed and discussed with RN. 01/03/2021 No acute events overnight. Patient seen and examined bedside. Creatinine increased to 3.7. Pending further nephrology recommendations for possible HD. No urine output per nursing. Patient's chart, labs, images were reviewed and discussed with RN 01/02/2021 Afebrile, no acute events overnight. Kidney function slightly worse today despite gentle hydration, CR 3.5 (eGFR 17.3). Per nephrology, if no improvement in renal function may need to initiate HD. Continue IV fluids. Continue oral antibiotics for left calcaneal heel cellulitis. 01/01/2021 Afebrile, currently breathing on room air. Creatinine increased to 3.4 today, despite gentle hydration. Will need to discuss with nephrology. Will continue gentle hydration and close monitoring of kidney function. Echocardiogram from 07/16/2020 showed normal left ventricular systolic function, ejection fraction 55-60%; no regional wall motion abnormality, mildmoderate valvular aortic stenosis, mild much regurgitation, moderate tricuspid regurgitation with PAP 68 mmHg. Continue p.o. Augmentin and Zyvox for left calcaneal heel cellulitis. 12/31/2020 Afebrile, no acute events overnight. Wound care is addressing his heels this morning. Plan to have wound VAC placed prior to discharge. BUN 78, creatinine 3.1 today. Due to concerns of worsening renal function and concerns for lack of appropriate follow-up at [facility], will hold discharge today until kidney function can be addressed by nephrology, likely with gentle hydration and close monitoring of kidney function. These methods are being taken to attempt to avoid the need for renal replacement therapy in the future. Discussed with patient and , and they are agreeable to this plan. 12/30/2020 Afebrile, no new complaints today. Had left heel ulcer debridement today. I believe plan is to have wound VAC placed tomorrow. Continue antibiotics, per ID. He will need care home once stable to discharge. Continue p.o. Lasix; continue gentle hydration and monitor kidney function. Creatinine 2.8, eGFR 22.3. 12/29/2020 Afebrile, breathing on room air. Plan is for elective debridement of the left heel ulcer tomorrow. Continue Augmentin and Zyvox, per ID. 12/28/2020 Afebrile, denies shortness of breath. Abdominal aortogram yesterday showed no significant aortoiliac disease bilaterally, isolated left posterior tibial artery occlusion with adequate two-vessel runoff to the distal foot and calcaneal area. Overall the patient is felt to have adequate runoff to the foot for further intervention with debridement of the left heel ulcer. I believe the plan is for elective debridement of left heel ulcer tomorrow. Discussed with RN . 12/27/2020 Afebrile, currently on room air. Off Lasix drip, currently Lasix 40 mg twice daily. Net positive fluid balance overnight, 510mL. Continue p.o. Augmentin and Zyvox. Aortogram pending today. 12/26/2020 No acute events overnight. Patient seen and examined bedside. -2.5 L output in the urine in the past 24 hours. No complaints from the patient. Pending aortogram with LLE runoff with vascular surgery. Follow-up 12/24/2020 Patient was seen and examined in room today. Awaiting plan from vascular/cardio on possible PCI/angio of LLE. Case discussed with RN and case management. Chart and specialist notes reviewed. 12/23/2020 No acute events overnight. Patient seen and examined bedside. Pedal edema has improved total of -2.3 L of urine output. Low potassium today will replace IV and p.o. Creatinine has also improved. Pending MRI versus CT of left lower extremity. Patient's chart, labs, images were reviewed and discussed with RN 12/22/2020 No acute events overnight patient seen and examined bedside. No significant weight loss with Lasix drip. Will defer further fluid offloading with cardiology. Pending MRI and further vascular surgery recommendations for lower extremity foot ulcer. Patient's chart, labs, images were reviewed and discussed with RN 12/21/2020 No acute events overnight. Patient has adequate urine output and feels less fluid overload. Documented -580 cc. Patient's chart, labs, images were reviewed and discussed with RN 75 year old male who was sent here from [facility] for evaluation due to bilateral lower extremity swelling, worsening renal function. He has history of CHF, history of chronic renal failure. Patient was sent here by the ASSISTANT NEWS DIRECTOR there today for evaluation of bilateral lower extremity swelling and increased renal function test. Patient denies any chest pain, denies any cough or fever. Patient does have trouble breathing with exertion. Patient says they told him to come here to be admitted so they can do colonoscopy because he has been anemic as well. Patient denies any rectal bleeding. His weight today is 147 kg Upon chart review patient was seen in November 04 09/12/2020 for GI bleed.. Eliquis was actually restarted on 11/09/2020. And also had a pacemaker placed on 11/09/2020 and tolerated procedure well. Patient also does follow-up with Dr. Chau with nephrology and his baseline creatinine appears to be between 1.8-2.0. Vitals/I&O Vitals/I&O: Vital Signs Date Time Temp Pulse Resp B/P (MAP) Pulse Ox O2 Delivery O2 Flow Rate FiO2 01/08/21 11:00 97.6 62 20 123/64 (83) 94 Room Air 97.6 I & O 01/07/21 01/07/21 01/08/21 15:00 23:00 07:00 Intake Total 200 ml Output Total 50 ml Balance 150 ml Physical Exam Physical Exam: GENERAL: Alert, oriented gentleman, not in any distress. HEENT: Both pupils are round and reacting. No conjunctival lesion. No lesion in the mouth. NECK: Supple. RT Tunneled HDC LUNGS: Clear. HEART: S1, S2 regular. Pacer site clean ABDOMEN: Soft, nontender. No organomegaly. Obeses EXTREMITIES: Edema present bilaterally, wound dressing taken down, wound is clean NEUROLOGIC: The patient is alert, awake, and appropriate. No focal neurologic deficit. General: Alert, Cooperative, No acute distress Heart: Other (Irr irr with soft systolic murmur) Lungs: Clear, Other Abdomen: Soft, No tenderness, No hepatosplenomegaly Extremities: No cyanosis, Other (2 + edema bilaterally) Skin: Other (Dressing present Right heel and Curlex wrapped left ankle foot. ) Labs Labs: Laboratory Tests Test 6/4/21 11:50 01/07/21 16:51 01/07/21 20:40 01/08/21 09:40 Glucose (Fingerstick) 144 mg/dL (70-99) 103 mg/dL (70-99) 122 mg/dL (70-99) White Blood Count 6.7 x10^3/uL (4.0-11.0) Red Blood Count 2.54 x10^6/uL (4.30-5.70) Hemoglobin 7.4 g/dL (13.0-17.5) Hematocrit 22.6 % (39.0-53.0) Mean Corpuscular Volume 89 fL (79-100) Mean Corpuscular Hemoglobin 29 pg (25-35) Mean Corpuscular Hemoglobin Concent 33 g/dL (31-37) Red Cell Distribution Width 17.4 % (11.5-14.5) Platelet Count 27 x10^3/uL (140-400) Neutrophils (%) (Auto) 59 % (31-73) Lymphocytes (%) (Auto) 23 % (24-48) Monocytes (%) (Auto) 10 % (0-9) Eosinophils (%) (Auto) 8 % (0-3) Basophils (%) (Auto) 1 % (0-3) Neutrophils # (Auto) 3.9 x10^3/uL (1.8-7.7) Lymphocytes # (Auto) 1.5 x10^3/uL (1.0-4.8) Monocytes # (Auto) 0.7 x10^3/uL (0.0-1.1) Eosinophils # (Auto) 0.5 x10^3/uL (0.0-0.7) Basophils # (Auto) 0.1 x10^3/uL (0.0-0.2) Sodium Level 140 mmol/L (136-145) Potassium Level 3.9 mmol/L (3.5-5.1) Chloride Level 103 mmol/L (98-107) Carbon Dioxide Level 29 mmol/L (21-32) Anion Gap 8 (6-14) Blood Urea Nitrogen 34 mg/dL (8-26) Creatinine 3.2 mg/dL (0.7-1.3) Estimated GFR (Cockcroft-Gault) 19.1 Glucose Level 135 mg/dL (70-99) Calcium Level 8.3 mg/dL (8.5-10.1) Magnesium Level 2.0 mg/dL (1.8-2.4) Assessment and Plan Assessmemt and Plan Problems Medical Problems: (1) Anemia Status: Acute (2) CHF exacerbation Status: Acute Comment Review of Relevant I have reviewed the following items mara (where applicable) has been applied. Justifications for Admission Other Justification CHF exacerbation KANNAN NELSON MD Jan 08, 2021 11:52
[2021-01-08] MEDS: ATORVASTATIN CALCIUM 40 MG TABLET. PO SCH (20:42)
[2021-01-09 03:10] VITALS: BP 127/60
[2021-01-09 07:00] VITALS: BP 138/63
[2021-01-09] MEDS: INSULIN LISPRO 300 UNITS/3 ML VIAL. SQ SCH ×3 (07:56→17:11)
[2021-01-09] MEDS: ASPIRIN ENTERIC COATED 81 MG TABLET.DR. PO SCH (08:00)
--- NOTE | 2021-01-09 09:07 | PDOC ---
Infectious Disease Note Subjective: Subjective Patient feels better No further episodes of nausea or vomiting or abdominal pain No fevers, shortness of breath or cough Vital Signs: Vital Signs Vital Signs Date Time Temp Pulse Resp B/P (MAP) Pulse Ox O2 Delivery O2 Flow Rate FiO2 01/09/21 07:00 97.9 65 18 138/63 (88) 94 Room Air 97.9 Physical Exam: PHYSICAL EXAM GENERAL: Alert, oriented gentleman, not in any distress. HEENT: Both pupils are round and reacting. No conjunctival lesion. No lesion in the mouth. NECK: Supple. RT Tunneled HDC LUNGS: Clear. HEART: S1, S2 regular. Pacer site clean ABDOMEN: Soft, nontender. No organomegaly. Obeses EXTREMITIES: Edema present bilaterally, wound dressing taken down, wound is clean NEUROLOGIC: The patient is alert, awake, and appropriate. No focal neurologic deficit. Medications: Inpatient Meds: Medications reviewed. Labs: Lab Laboratory Tests Test 01/08/21 09:40 01/08/21 11:46 01/08/21 16:32 01/08/21 21:16 White Blood Count 6.7 x10^3/uL (4.0-11.0) Red Blood Count 2.54 x10^6/uL (4.30-5.70) Hemoglobin 7.4 g/dL (13.0-17.5) Hematocrit 22.6 % (39.0-53.0) Mean Corpuscular Volume 89 fL (79-100) Mean Corpuscular Hemoglobin 29 pg (25-35) Mean Corpuscular Hemoglobin Concent 33 g/dL (31-37) Red Cell Distribution Width 17.4 % (11.5-14.5) Platelet Count 27 x10^3/uL (140-400) Neutrophils (%) (Auto) 59 % (31-73) Lymphocytes (%) (Auto) 23 % (24-48) Monocytes (%) (Auto) 10 % (0-9) Eosinophils (%) (Auto) 8 % (0-3) Basophils (%) (Auto) 1 % (0-3) Neutrophils # (Auto) 3.9 x10^3/uL (1.8-7.7) Lymphocytes # (Auto) 1.5 x10^3/uL (1.0-4.8) Monocytes # (Auto) 0.7 x10^3/uL (0.0-1.1) Eosinophils # (Auto) 0.5 x10^3/uL (0.0-0.7) Basophils # (Auto) 0.1 x10^3/uL (0.0-0.2) Sodium Level 140 mmol/L (136-145) Potassium Level 3.9 mmol/L (3.5-5.1) Chloride Level 103 mmol/L (98-107) Carbon Dioxide Level 29 mmol/L (21-32) Anion Gap 8 (6-14) Blood Urea Nitrogen 34 mg/dL (8-26) Creatinine 3.2 mg/dL (0.7-1.3) Estimated GFR (Cockcroft-Gault) 19.1 Glucose Level 135 mg/dL (70-99) Calcium Level 8.3 mg/dL (8.5-10.1) Magnesium Level 2.0 mg/dL (1.8-2.4) Glucose (Fingerstick) 157 mg/dL (70-99) 118 mg/dL (70-99) 123 mg/dL (70-99) Test 01/09/21 07:20 Glucose (Fingerstick) 110 mg/dL (70-99) Objective: Assessment: 1. Left calcaneal black eschar. MRI neg for osteo R heel wound - Cellulitis is better 12/30 s/p Left heel excisional debridement subcutaneous tissue and skin 2. Peripheral arterial disease. 3. Left big toe ulcer. 4. Obesity. 5. Diabetes. 6. Hypertension. 7. Congestive heart failure. 8. Renal insufficiency. On HD 9. Sulfa allergy 10. Nausea 11. Thrombocytopenia 12. Hepatitis B surface antigen positive, hepatitis B surface antibody negative 13. Chronic anemia Plan: Plan of Care Monitor off antibiotics Maintain aspiration precaution Wound /Vac care per wound team Discussed with nursing staff AMADOR ROSA MD Jan 09, 2021 09:07
[2021-01-09] MEDS: METOPROLOL SUCC 24HR ER 25 MG TAB.ER.24H. PO SCH (09:22)
[2021-01-09] MEDS: FAMOTIDINE 20 MG TABLET. PO SCH (09:22)
[2021-01-09] MEDS: FERROUS SULFATE 325 MG TABLET. PO SCH ×2 (09:22→17:09)
[2021-01-09 09:23] LABS: BASO # 0.1 x10^3/uL (0.0-0.2); BASO % 1 % (0-3); EOS # 0.4 x10^3/uL (0.0-0.7); EOS % 3 % (0-3); HEMATOCRIT 25.3 % (39.0-53.0); HEMOGLOBIN 8.2 g/dL (13.0-17.5); LYMPH % 16 % (24-48); MEAN CORPUSCULAR HEMOGLOBIN 28 pg (25-35); MEAN CORPUSCULAR HGB CONC 33 g/dL (31-37); MEAN CORPUSCULAR VOLUME 87 fL (79-100); MONO # 1.6 x10^3/uL (0.0-1.1); MONO % 13 % (0-9); NEUT # 8.3 x10^3/uL (1.8-7.7); NEUT % 67 % (31-73); PLATELET COUNT 36 x10^3/uL (140-400); RED CELL DISTRIBUTION WIDTH 17.7 % (11.5-14.5); WHITE BLOOD COUNT 12.5 x10^3/uL (4.0-11.0)
[2021-01-09] MEDS: ASCORBIC ACID 500 MG TABLET PO SCH ×2 (09:23→22:01)
[2021-01-09] MEDS: SERTRALINE 50 MG TABLET. PO SCH (09:23)
[2021-01-09] MEDS: hydrALAZINE 25 MG TABLET PO SCH ×3 (09:23→22:01)
[2021-01-09] MEDS: LACTOBACILLUS RHAMNOSUS GG 1 CAPSULE. PO SCH ×2 (09:23→22:01)
[2021-01-09] MEDS: NYSTATIN TOPICAL POWDER 15GM BOTTLE. TP SCH ×2 (09:25→22:00)
[2021-01-09 09:37] LABS: CALCIUM 8.3 mg/dL (8.5-10.1); CREATININE 3.7 mg/dL (0.7-1.3); GFR 16.2; MAGNESIUM 2.1 mg/dL (1.8-2.4); POTASSIUM 4.1 mmol/L (3.5-5.1)
--- NOTE | 2021-01-09 10:39 | PDOC ---
[employer] PROGRESS NOTE Date of Service DOS: DATE: 01/09/21 TIME: 10:37 Chief Complaint Chief Complaint Acute volume overload Acute on chronic CHF exacerbation Hypokalemia History of chronic kidney disease Normocytic anemia, possible chronic GI blood loss with EGD showing antral gastric ulcer Left lower extremity wound ulcer with dry gangrene Morbid obesity, OHS, suspect ROBB Severe protein malnutrition History of diabetes mellitus type 2 History of peripheral vascular disease History of atrial fibrillation History of bradycardia status post pacemaker placement History of peripheral vascular disease Hypertension Dyslipidemia Thrombocytopenia, concerning for HITpending HIT antibody Admit to medicine for further management Pending MRI of lower extremity today Appreciate vascular surgery recommendationwe will obtain MRI to determine level of possible amputation ID consulted IV Lasix drip started Strict I's and O's Echocardiogram from 07/16/2020 - normal left ventricular systolic function, EF 55 to 60%. No regional wall motion abnormalities noted, valvular aortic stenosis. Moderate tricuspid regurgitation with PAP 68 mmHg. Nephrology consult Cardiology consult Trend hemoglobin if less than 7 then transfuse 1 unit Eliquis for DVT prophylaxis Pepcid GI prophylaxis ADA diet Full code Discussed with RN and SW Disposition inpatient management as above Surrogate decision maker is Phuong Mathis History of Present Illness History of Present Illness 01/09/2021 No acute events overnight. No concerns from nursing. Patient seen and examined at this time. Hemoglobin stable after 1 unit PRBC transfusion yesterday. Platelets increased from yesterday from 27 to 36. Will observe 1 more day to hope for uptrend of platelets. If platelets have improved by tomorrow we will anticipate discharge to [facility]. Pending HIT antibody. Patient's chart, labs, images were reviewed and discussed with RN 01/08/2021 No acute events overnight. No concerns per nursing. Patient seen and examined bedside and no complaints at this time. Hemoglobin below recommended threshold for ESRD and CAD patients. Will transfuse 1 unit PRBC today. Hemoglobin is not downtrending. However, platelets are downtrending today is 27,000. We will continue to monitor and consider platelet transfusion if there is any spontaneous bleeding or if it downtrends below 20,000 by tomorrow. Pending HIT antibody. Further recommendations from hematology would be appreciated. Patient's chart, labs, images were reviewed and discussed with RN 01/07/2021 No acute events overnight. No concerns from nursing. We will continue to trend platelets. Pending HIT antibody. Will anticipate discharge if platelets remain stable. Patient's chart, labs, images were reviewed and discussed with RN 01/06/2021 No acute events overnight. Patient is tolerating hemodialysis well. Platelets decreased again down to 45,000 from 56,000. On admission it was greater than 120,000. Pending hematology evaluation. Patient's chart, labs, images were reviewed and discussed with RN 01/05/21 No acute events overnight. Permacath placed yesterday and patient tolerated procedure well and received hemodialysis. Hemodialysis again today. Improved creatinine to 3.5. No other concerns from nursing. Patient's chart, labs, images were reviewed and discussed with RN 01/04/2021 No acute events overnight. Patient seen and examined bedside. Creatinine increased to 4.0. No concerns from nursing at this time. Patient's chart, labs, images were reviewed and discussed with RN. 01/03/2021 No acute events overnight. Patient seen and examined bedside. Creatinine increased to 3.7. Pending further nephrology recommendations for possible HD. No urine output per nursing. Patient's chart, labs, images were reviewed and discussed with RN 01/02/2021 Afebrile, no acute events overnight. Kidney function slightly worse today despite gentle hydration, CR 3.5 (eGFR 17.3). Per nephrology, if no improvement in renal function may need to initiate HD. Continue IV fluids. Continue oral antibiotics for left calcaneal heel cellulitis. 01/01/2021 Afebrile, currently breathing on room air. Creatinine increased to 3.4 today, despite gentle hydration. Will need to discuss with nephrology. Will continue gentle hydration and close monitoring of kidney function. Echocardiogram from 07/16/2020 showed normal left ventricular systolic function, ejection fraction 55-60%; no regional wall motion abnormality, mildmoderate valvular aortic stenosis, mild much regurgitation, moderate tricuspid regurgitation with PAP 68 mmHg. Continue p.o. Augmentin and Zyvox for left calcaneal heel cellulitis. 12/31/2020 Afebrile, no acute events overnight. Wound care is addressing his heels this morning. Plan to have wound VAC placed prior to discharge. BUN 78, creatinine 3.1 today. Due to concerns of worsening renal function and concerns for lack of appropriate follow-up at [facility], will hold discharge today until kidney function can be addressed by nephrology, likely with gentle hydration and close monitoring of kidney function. These methods are being taken to attempt to avoid the need for renal replacement therapy in the future. Discussed with patient and , and they are agreeable to this plan. 12/30/2020 Afebrile, no new complaints today. Had left heel ulcer debridement today. I believe plan is to have wound VAC placed tomorrow. Continue antibiotics, per ID. He will need mcfp once stable to discharge. Continue p.o. Lasix; continue gentle hydration and monitor kidney function. Creatinine 2.8, eGFR 22.3. 12/29/2020 Afebrile, breathing on room air. Plan is for elective debridement of the left heel ulcer tomorrow. Continue Augmentin and Zyvox, per ID. 12/28/2020 Afebrile, denies shortness of breath. Abdominal aortogram yesterday showed no significant aortoiliac disease bilaterally, isolated left posterior tibial artery occlusion with adequate two-vessel runoff to the distal foot and calcaneal area. Overall the patient is felt to have adequate runoff to the foot for further intervention with debridement of the left heel ulcer. I believe the plan is for elective debridement of left heel ulcer tomorrow. Discussed with RN. 12/27/2020 Afebrile, currently on room air. Off Lasix drip, currently Lasix 40 mg twice daily. Net positive fluid balance overnight, 510mL. Continue p.o. Augmentin and Zyvox. Aortogram pending today. 12/26/2020 No acute events overnight. Patient seen and examined bedside. -2.5 L output in the urine in the past 24 hours. No complaints from the patient. Pending aortogram with LLE runoff with vascular surgery. Follow-up 12/24/2020 Patient was seen and examined in room today. Awaiting plan from vascular/cardio on possible PCI/angio of LLE. Case discussed with RN and case management. Chart and specialist notes reviewed. 12/23/2020 No acute events overnight. Patient seen and examined bedside. Pedal edema has improved total of -2.3 L of urine output. Low potassium today will replace IV and p.o. Creatinine has also improved. Pending MRI versus CT of left lower extremity. Patient's chart, labs, images were reviewed and discussed with RN 12/22/2020 No acute events overnight patient seen and examined bedside. No significant weight loss with Lasix drip. Will defer further fluid offloading with cardiology. Pending MRI and further vascular surgery recommendations for lower extremity foot ulcer. Patient's chart, labs, images were reviewed and discussed with RN 12/21/2020 No acute events overnight. Patient has adequate urine output and feels less fluid overload. Documented -580 cc. Patient's chart, labs, images were reviewed and discussed with RN 75 year old male who was sent here from [facility] for evaluation due to bilateral lower extremity swelling, worsening renal function. He has history of CHF, history of chronic renal failure. Patient was sent here by the [employer] there today for evaluation of bilateral lower extremity swelling and increased renal function test. Patient denies any chest pain, denies any cough or fever. Patient does have trouble breathing with exertion. Patient says they told him to come here to be admitted so they can do colonoscopy because he has been anemic as well. Patient denies any rectal bleeding. His weight today is 147 kg Upon chart review patient was seen in November 04 09/12/2020 for GI bleed.. Eliquis was actually restarted on 11/09/2020. And also had a pacemaker placed on 11/09/2020 and tolerated procedure well. Patient also does follow-up with Dr. Chau with nephrology and his baseline creatinine appears to be between 1.8-2.0. Vitals/I&O Vitals/I&O: Vital Signs Date Time Temp Pulse Resp B/P (MAP) Pulse Ox O2 Delivery O2 Flow Rate FiO2 01/09/21 09:23 65 138/63 01/09/21 07:00 97.9 18 94 Room Air 97.9 I & O 01/08/21 01/08/21 01/09/21 15:00 23:00 07:00 Intake Total 480 ml 590 ml 0 ml Output Total 50 ml Balance 480 ml 590 ml -50 ml Physical Exam Physical Exam: GENERAL: Alert, oriented gentleman, not in any distress. HEENT: Both pupils are round and reacting. No conjunctival lesion. No lesion in the mouth. NECK: Supple. RT Tunneled HDC LUNGS: Clear. HEART: S1, S2 regular. Pacer site clean ABDOMEN: Soft, nontender. No organomegaly. Obeses EXTREMITIES: Edema present bilaterally, wound dressing taken down, wound is clean NEUROLOGIC: The patient is alert, awake, and appropriate. No focal neurologic deficit. General: Alert, Cooperative, No acute distress Heart: Other (Irr irr with soft systolic murmur) Lungs: Clear, Other Abdomen: Soft, No tenderness, No hepatosplenomegaly Extremities: No cyanosis, Other (2 + edema bilaterally) Skin: Other (Dressing present Right heel and Curlex wrapped left ankle foot. ) Labs Labs: Laboratory Tests Test 01/08/21 11:46 01/08/21 16:32 01/08/21 21:16 01/09/21 07:20 Glucose (Fingerstick) 157 mg/dL (70-99) 118 mg/dL (70-99) 123 mg/dL (70-99) 110 mg/dL (70-99) Test 01/09/21 08:55 White Blood Count 12.5 x10^3/uL (4.0-11.0) Red Blood Count 2.90 x10^6/uL (4.30-5.70) Hemoglobin 8.2 g/dL (13.0-17.5) Hematocrit 25.3 % (39.0-53.0) Mean Corpuscular Volume 87 fL (79-100) Mean Corpuscular Hemoglobin 28 pg (25-35) Mean Corpuscular Hemoglobin Concent 33 g/dL (31-37) Red Cell Distribution Width 17.7 % (11.5-14.5) Platelet Count 36 x10^3/uL (140-400) Neutrophils (%) (Auto) 67 % (31-73) Lymphocytes (%) (Auto) 16 % (24-48) Monocytes (%) (Auto) 13 % (0-9) Eosinophils (%) (Auto) 3 % (0-3) Basophils (%) (Auto) 1 % (0-3) Neutrophils # (Auto) 8.3 x10^3/uL (1.8-7.7) Lymphocytes # (Auto) 2.0 x10^3/uL (1.0-4.8) Monocytes # (Auto) 1.6 x10^3/uL (0.0-1.1) Eosinophils # (Auto) 0.4 x10^3/uL (0.0-0.7) Basophils # (Auto) 0.1 x10^3/uL (0.0-0.2) Sodium Level 140 mmol/L (136-145) Potassium Level 4.1 mmol/L (3.5-5.1) Chloride Level 102 mmol/L (98-107) Carbon Dioxide Level 26 mmol/L (21-32) Anion Gap 12 (6-14) Blood Urea Nitrogen 40 mg/dL (8-26) Creatinine 3.7 mg/dL (0.7-1.3) Estimated GFR (Cockcroft-Gault) 16.2 Glucose Level 109 mg/dL (70-99) Calcium Level 8.3 mg/dL (8.5-10.1) Magnesium Level 2.1 mg/dL (1.8-2.4) Assessment and Plan Assessmemt and Plan Problems Medical Problems: (1) Anemia Status: Acute (2) CHF exacerbation Status: Acute Comment Review of Relevant I have reviewed the following items mara (where applicable) has been applied. Medications: Current Medications Medications (Trade) Dose Ordered Sig/Redd Route PRN Reason Start Time Stop Time Status Last Admin Dose Admin Acetaminophen (Tylenol) 650 mg 1X PRN PRN PO PRE-TRANSFUSION 01/08/21 11:45 01/09/21 11:44 01/08/21 14:02 Justifications for Admission Other Justification CHF exacerbation KANNAN NELSON MD Jan 09, 2021 10:39
[2021-01-09 10:53] VITALS: BP 132/60
[2021-01-09 14:48] VITALS: BP 123/56
[2021-01-09 19:20] VITALS: BP 153/66
[2021-01-09] MEDS: ATORVASTATIN CALCIUM 40 MG TABLET. PO SCH (22:00)
[2021-01-09 22:50] VITALS: BP 137/60
[2021-01-10 03:15] VITALS: BP 158/69
[2021-01-10 07:45] VITALS: BP 148/64
[2021-01-10] MEDS: INSULIN LISPRO 300 UNITS/3 ML VIAL. SQ SCH ×3 (08:00→16:52)
[2021-01-10] MEDS: ASPIRIN ENTERIC COATED 81 MG TABLET.DR. PO SCH (08:10)
[2021-01-10] MEDS: FERROUS SULFATE 325 MG TABLET. PO SCH ×2 (08:10→17:00)
[2021-01-10] MEDS: LACTOBACILLUS RHAMNOSUS GG 1 CAPSULE. PO SCH ×2 (08:11→20:26)
[2021-01-10] MEDS: FAMOTIDINE 20 MG TABLET. PO SCH (08:11)
[2021-01-10] MEDS: hydrALAZINE 25 MG TABLET PO SCH ×3 (08:11→20:26)
[2021-01-10] MEDS: METOPROLOL SUCC 24HR ER 25 MG TAB.ER.24H. PO SCH (08:11)
[2021-01-10] MEDS: SERTRALINE 50 MG TABLET. PO SCH (08:12)
[2021-01-10] MEDS: NYSTATIN TOPICAL POWDER 15GM BOTTLE. TP SCH ×2 (08:12→20:26)
[2021-01-10] MEDS: ASCORBIC ACID 500 MG TABLET PO SCH ×2 (08:12→20:25)
--- NOTE | 2021-01-10 08:24 | PDOC ---
Infectious Disease Note Subjective Subjective Patient feels better No further episodes of nausea or vomiting or abdominal pain No fevers, shortness of breath or cough Vital Sign Vital Signs Vital Signs Date Time Temp Pulse Resp B/P (MAP) Pulse Ox O2 Delivery O2 Flow Rate FiO2 01/10/21 08:11 58 148/64 01/10/21 07:45 97.8 18 95 Room Air 97.8 Physical Exam PHYSICAL EXAM GENERAL: Alert, oriented gentleman, not in any distress. HEENT: Both pupils are round and reacting. No conjunctival lesion. No lesion in the mouth. NECK: Supple. RT Tunneled HDC LUNGS: Clear. HEART: S1, S2 regular. Pacer site clean ABDOMEN: Soft, nontender. No organomegaly. Obeses EXTREMITIES: Edema present bilaterally, wound dressing taken down, wound is clean NEUROLOGIC: The patient is alert, awake, and appropriate. No focal neurologic deficit. Labs Lab Laboratory Tests Test 01/09/21 08:55 01/09/21 11:07 01/09/21 16:56 01/09/21 21:12 White Blood Count 12.5 x10^3/uL (4.0-11.0) Red Blood Count 2.90 x10^6/uL (4.30-5.70) Hemoglobin 8.2 g/dL (13.0-17.5) Hematocrit 25.3 % (39.0-53.0) Mean Corpuscular Volume 87 fL (79-100) Mean Corpuscular Hemoglobin 28 pg (25-35) Mean Corpuscular Hemoglobin Concent 33 g/dL (31-37) Red Cell Distribution Width 17.7 % (11.5-14.5) Platelet Count 36 x10^3/uL (140-400) Neutrophils (%) (Auto) 67 % (31-73) Lymphocytes (%) (Auto) 16 % (24-48) Monocytes (%) (Auto) 13 % (0-9) Eosinophils (%) (Auto) 3 % (0-3) Basophils (%) (Auto) 1 % (0-3) Neutrophils # (Auto) 8.3 x10^3/uL (1.8-7.7) Lymphocytes # (Auto) 2.0 x10^3/uL (1.0-4.8) Monocytes # (Auto) 1.6 x10^3/uL (0.0-1.1) Eosinophils # (Auto) 0.4 x10^3/uL (0.0-0.7) Basophils # (Auto) 0.1 x10^3/uL (0.0-0.2) Sodium Level 140 mmol/L (136-145) Potassium Level 4.1 mmol/L (3.5-5.1) Chloride Level 102 mmol/L (98-107) Carbon Dioxide Level 26 mmol/L (21-32) Anion Gap 12 (6-14) Blood Urea Nitrogen 40 mg/dL (8-26) Creatinine 3.7 mg/dL (0.7-1.3) Estimated GFR (Cockcroft-Gault) 16.2 Glucose Level 109 mg/dL (70-99) Calcium Level 8.3 mg/dL (8.5-10.1) Magnesium Level 2.1 mg/dL (1.8-2.4) Glucose (Fingerstick) 171 mg/dL (70-99) 171 mg/dL (70-99) 140 mg/dL (70-99) Test 01/10/21 07:47 Glucose (Fingerstick) 110 mg/dL (70-99) Objective Assessment 1. Left calcaneal black eschar. MRI neg for osteo R heel wound - Cellulitis is better 12/30 s/p Left heel excisional debridement subcutaneous tissue and skin 2. Peripheral arterial disease. 3. Left big toe ulcer. 4. Obesity. 5. Diabetes. 6. Hypertension. 7. Congestive heart failure. 8. Renal insufficiency. On HD 9. Sulfa allergy 10. Nausea 11. Thrombocytopenia 12. Hepatitis B surface antigen positive, hepatitis B surface antibody negative 13. Chronic anemia Plan Plan of Care wound seen, 20 % healthy granulation, rest not healthy, fibrous tissue will have him take augmentin and doxy off load Maintain aspiration precaution Wound /Vac care per wound team Discussed with nursing staff MIKE ROSA MD Jan 10, 2021 08:24
[2021-01-10] MEDS ORDERED: METOCLOPRAMIDE HCL 10 MG/2 ML VIAL. IVP PRN (09:00)
--- NOTE | 2021-01-10 09:00 | PDOC ---
[employer] PROGRESS NOTE Date of Service DOS: DATE: 01/10/21 TIME: 09:00 Chief Complaint Chief Complaint Acute volume overload Acute on chronic CHF exacerbation Hypokalemia History of chronic kidney disease Normocytic anemia, possible chronic GI blood loss with EGD showing antral gastric ulcer Left lower extremity wound ulcer with dry gangrene Morbid obesity, OHS, suspect ROBB Severe protein malnutrition History of diabetes mellitus type 2 History of peripheral vascular disease History of atrial fibrillation History of bradycardia status post pacemaker placement History of peripheral vascular disease Hypertension Dyslipidemia Thrombocytopenia, concerning for HITpending HIT antibody Strict I's and O's Echocardiogram from 07/16/2020 - normal left ventricular systolic function, EF 55 to 60%. No regional wall motion abnormalities noted, valvular aortic stenosis. Moderate tricuspid regurgitation with PAP 68 mmHg. Nephrology consult Cardiology consult Trend hemoglobin if less than 7 then transfuse 1 unit Eliquis for DVT prophylaxis Pepcid GI prophylaxis ADA diet Full code Discussed with RN and SW Disposition inpatient management as above Surrogate decision maker is Phuong Mathis History of Present Illness History of Present Illness No acute events overnight. Having some nausea today. Having little bit of foot pain. Worried about his outpatient dialysis treatments. 01/09/2021 No acute events overnight. No concerns from nursing. Patient seen and examined at this time. Hemoglobin stable after 1 unit PRBC transfusion yesterday. Platelets increased from yesterday from 27 to 36. Will observe 1 more day to hope for uptrend of platelets. If platelets have improved by tomorrow we will anticipate discharge to [facility]. Pending HIT antibody. Patient's chart, labs, images were reviewed and discussed with RN 01/08/2021 No acute events overnight. No concerns per nursing. Patient seen and examined bedside and no complaints at this time. Hemoglobin below recommended threshold for ESRD and CAD patients. Will transfuse 1 unit PRBC today. Hemoglobin is not downtrending. However, platelets are downtrending today is 27,000. We will continue to monitor and consider platelet transfusion if there is any spontaneous bleeding or if it downtrends below 20,000 by tomorrow. Pending HIT antibody. Further recommendations from hematology would be appreciated. Patient's chart, labs, images were reviewed and discussed with RN 01/07/2021 No acute events overnight. No concerns from nursing. We will continue to trend platelets. Pending HIT antibody. Will anticipate discharge if platelets remain stable. Patient's chart, labs, images were reviewed and discussed with RN 01/06/2021 No acute events overnight. Patient is tolerating hemodialysis well. Platelets decreased again down to 45,000 from 56,000. On admission it was greater than 120,000. Pending hematology evaluation. Patient's chart, labs, images were reviewed and discussed with RN 01/05/21 No acute events overnight. Permacath placed yesterday and patient tolerated pro cedure well and received hemodialysis. Hemodialysis again today. Improved creatinine to 3.5. No other concerns from nursing. Patient's chart, labs, images were reviewed and discussed with RN 01/04/2021 No acute events overnight. Patient seen and examined bedside. Creatinine increased to 4.0. No concerns from nursing at this time. Patient's chart, labs, images were reviewed and discussed with RN. 01/03/2021 No acute events overnight. Patient seen and examined bedside. Creatinine increased to 3.7. Pending further nephrology recommendations for possible HD. No urine output per nursing. Patient's chart, labs, images were reviewed and discussed with RN 01/02/2021 Afebrile, no acute events overnight. Kidney function slightly worse today despite gentle hydration, CR 3.5 (eGFR 17.3). Per nephrology, if no improvement in renal function may need to initiate HD. Continue IV fluids. Continue oral antibiotics for left calcaneal heel cellulitis. 01/01/2021 Afebrile, currently breathing on room air. Creatinine increased to 3.4 today, despite gentle hydration. Will need to discuss with nephrology. Will continue gentle hydration and close monitoring of kidney function. Echocardiogram from 07/16/2020 showed normal left ventricular systolic function, ejection fraction 55-60%; no regional wall motion abnormality, mildmoderate valvular aortic stenosis, mild much regurgitation, moderate tricuspid regurgitation with PAP 68 mmHg. Continue p.o. Augmentin and Zyvox for left calcaneal heel cellulitis. 12/31/2020 Afebrile, no acute events overnight. Wound care is addressing his heels this morning. Plan to have wound VAC placed prior to discharge. BUN 78, creatinine 3.1 today. Due to concerns of worsening renal function and concerns for lack of appropriate follow-up at [facility], will hold discharge today until kidney function can be addressed by nephrology, likely with gentle hydration and close monitoring of kidney function. These methods are being taken to attempt to avoid the need for renal replacement therapy in the future. Discussed with patient and , and they are agreeable to this plan. 12/30/2020 Afebrile, no new complaints today. Had left heel ulcer debridement today. I believe plan is to have wound VAC placed tomorrow. Continue antibiotics, per ID. He will need correction once stable to discharge. Continue p.o. Lasix; continue gentle hydration and monitor kidney function. Creatinine 2.8, eGFR 22.3. 12/29/2020 Afebrile, breathing on room air. Plan is for elective debridement of the left heel ulcer tomorrow. Continue Augmentin and Zyvox, per ID. 12/28/2020 Afebrile, denies shortness of breath. Abdominal aortogram yesterday showed no significant aortoiliac disease bilaterally, isolated left posterior tibial artery occlusion with adequate two-vessel runoff to the distal foot and calcaneal area. Overall the patient is felt to have adequate runoff to the foot for further intervention with debridement of the left heel ulcer. I believe the plan is for elective debridement of left heel ulcer tomorrow. Discussed with RN. 12/27/2020 Afebrile, currently on room air. Off Lasix drip, currently Lasix 40 mg twice daily. Net positive fluid balance overnight, 510mL. Continue p.o. Augmentin and Zyvox. Aortogram pending today. 12/26/2020 No acute events overnight. Patient seen and examined bedside. -2.5 L output in the urine in the past 24 hours. No complaints from the patient. Pending aortogram with LLE runoff with vascular surgery. Follow-up 12/24/2020 Patient was seen and examined in room today. Awaiting plan from vascular/cardio on possible PCI/angio of LLE. Case discussed with RN and case management. Chart and specialist notes reviewed. 12/23/2020 No acute events overnight. Patient seen and examined bedside. Pedal edema has improved total of -2.3 L of urine output. Low potassium today will replace IV and p.o. Creatinine has also improved. Pending MRI versus CT of left lower extremity. Patient's chart, labs, images were reviewed and discussed with RN 12/22/2020 No acute events overnight patient seen and examined bedside. No significant weight loss with Lasix drip. Will defer further fluid offloading with cardiolo gy. Pending MRI and further vascular surgery recommendations for lower extremity foot ulcer. Patient's chart, labs, images were reviewed and discussed with RN 12/21/2020 No acute events overnight. Patient has adequate urine output and feels less fluid overload. Documented -580 cc. Patient's chart, labs, images were reviewed and discussed with RN Mr Nunn is a 75 year old male who was sent here from [facility] for evaluation due to bilateral lower extremity swelling, worsening renal function. He has history of CHF, history of chronic renal failure. Patient was sent here by the [employer] there today for evaluation of bilateral lower extremity swelling and increased renal function test. Patient denies any chest pain, denies any cough or fever. Patient does have trouble breathing with exertion. Patient says they told him to come here to be admitted so they can do colonoscopy because he has been anemic as well. Patient denies any rectal bleeding. His weight today is 147 kg Upon chart review patient was seen in November 04 09/12/2020 for GI bleed.. Eliquis was actually restarted on 11/09/2020. And also had a pacemaker placed on 11/09/2020 and tolerated procedure well. Patient also does follow-up with Dr. Chau with nephrology and his baseline creatinine appears to be between 1.8-2.0. Vitals/I&O Vitals/I&O: Vital Signs Date Time Temp Pulse Resp B/P (MAP) Pulse Ox O2 Delivery O2 Flow Rate FiO2 01/10/21 08:11 58 148/64 01/10/21 07:45 97.8 18 95 Room Air 97.8 I & O 01/09/21 01/09/21 01/10/21 15:00 23:00 07:00 Intake Total 360 ml 300 ml 160 ml Output Total 50 ml Balance 360 ml 300 ml 110 ml Physical Exam Physical Exam: GENERAL: Alert, oriented gentleman, not in any distress. HEENT: Both pupils are round and reacting. No conjunctival lesion. No lesion in the mouth. NECK: Supple. RT Tunneled HDC LUNGS: Clear. HEART: S1, S2 regular. Pacer site clean ABDOMEN: Soft, nontender. No organomegaly. Obeses EXTREMITIES: Edema present bilaterally, wound dressing taken down, wound is clean NEUROLOGIC: The patient is alert, awake, and appropriate. No focal neurologic deficit. General: Alert, Cooperative, No acute distress Heart: Other (Irr irr with soft systolic murmur) Lungs: Clear, Other Abdomen: Soft, No tenderness, No hepatosplenomegaly Extremities: No cyanosis, Other (2 + edema bilaterally) Skin: Other (Dressing present Right heel and Curlex wrapped left ankle foot. ) Labs Labs: Laboratory Tests Test 01/09/21 11:07 01/09/21 16:56 01/09/21 21:12 01/10/21 07:47 Glucose (Fingerstick) 171 mg/dL (70-99) 171 mg/dL (70-99) 140 mg/dL (70-99) 110 mg/dL (70-99) Assessment and Plan Assessmemt and Plan Problems Medical Problems: (1) Anemia Status: Acute (2) CHF exacerbation Status: Acute Comment Review of Relevant I have reviewed the following items mara (where applicable) has been applied. Justifications for Admission Other Justification CHF exacerbation JAKE PATTON MD Jan 10, 2021 09:00
[2021-01-10] MEDS: ONDANSETRON PF 4 MG/2 ML VIAL. IVP PRN (09:07)
[2021-01-10] MEDS: AMOXICILLIN/K CLAV 500/125MG TABLET. PO SCH ×2 (09:07→20:25)
[2021-01-10] MEDS: DOXYCYCLINE HYCLATE 100 MG TABLET PO SCH ×2 (09:07→20:26)
[2021-01-10 10:18] VITALS: BP 160/70
--- NOTE | 2021-01-10 10:18 | PDOC ---
DATE OF SERVICE DATE: 01/10/21 TIME: 10:17 SUBJECTIVE ROS Denies any SOB, on room air. States feels good except for Mild nausea in the morning OBJECTIVE Vital Signs Vital Signs Date Time Temp Pulse Resp B/P (MAP) Pulse Ox O2 Delivery O2 Flow Rate FiO2 01/10/21 08:11 58 148/64 01/10/21 07:45 97.8 18 95 Room Air 97.8 I & 0 Intake and Output 01/10/21 07:00 Intake Total 820 ml Output Total 50 ml Balance 770 ml Intake Oral 820 ml Output Urine Total 50 ml PHYSICAL EXAM Physical Exam General: NAD HEENT: Atraumatic, OM moist Neck supple Lungs: Clear to auscultation Heart: Bradycardic, ESM aortic) Abdomen: Soft, NT Extremities: Bilat LE edema improved Neuro: grossly normal Psych/Mental Status: Mood NL lowery + , No cva or SP tenderness Skin No rash DIAGNOSIS/ASSESSMENT Assessment & Plan New Onset ESRD- Cardiorenal ,Initiated on Dialysis 01/04 Dialysis today , discussed treatment plan with [facility] on 01/04 , Supportive care Awaiting OP chair time - Hep B Positive (his physical therapy director is from [facility] ) Hep Bs Ag Positive ; Hep B Core Ab Reactive . GI following CKD stage 3B/ 4 - Follows with Dr. Roca at [facility] , baseline Cr per [facility] records prior to previous admission 1.8-2.0 but 2.3 to 2.5 since REBECCA recently in November 2020 Hx of Acute blood loss anemia secondary to GIB. s/p cauterization of bleeding antral ulcer by GI team and PRBC in November . Hgb this admission low as well - defer to GI Renal calculus - RK- Possible intrarenal stones. LK Possible intrarenal stones to include a 13 mm focus of increased echogenicity at the upper pole.No e/o obstruction reported . Pt denies any past history Worsening LE edema- Bilat LE and anasarca- Wt up compared to his recent admission . off Lasix gtt , currently on Lasix PO BID ,Cardiology managing Left heel wound with dry gangrene and 1st toe ulcer- s/p CO2 angiograph on 12/28 Acute on chronic diastolic CHF; Echo 07/25 with preserved LV systolic function Anemia with h/o GIB with cauterization of bleeding antral ulcer CAD; s/p PCI/RHEA to LAD in 2019. clinically stable, CP free. PAD s/p past orbital atherectomy/[employer] to right posterior tibial artery. COMMENT/RELEVANT DATA Meds Current Medications Medications (Trade) Dose Ordered Sig/Redd Start Time Stop Time Status Last Admin Dose Admin Acetaminophen (Tylenol) 650 mg 1X PRN PRN 01/08/21 11:45 01/09/21 11:44 DC 01/08/21 14:02 650 MG Albumin Human 200 ml @ 200 mls/hr 1X PRN PRN 01/05/21 11:45 01/05/21 17:44 DC Amoxicillin/ Clavulanate Potassium (Augmentin 500/ 125mg) 1 tab BID 01/10/21 09:00 01/10/21 09:07 1 TAB Amoxicillin/ Clavulanate Potassium (Augmentin 875/ 125mg) 1 tab BID 12/25/20 09:00 12/31/20 08:43 DC 12/31/20 08:29 1 TAB Apixaban (Eliquis) 2.5 mg BID 12/20/20 22:00 12/21/20 13:36 DC 12/21/20 09:00 2.5 MG Ascorbic Acid (Vitamin C) 500 mg BID 12/20/20 22:00 01/10/21 08:12 500 MG Aspirin (Ecotrin) 81 mg [id number] 01/01/21 08:00 01/10/21 08:10 81 MG Atorvastatin Calcium (Lipitor) 40 mg HS 12/20/20 22:00 01/09/21 22:00 40 MG Buspirone HCl (Buspar) 10 mg PRN DAILY PRN 12/20/20 21:45 01/05/21 00:44 10 MG Cefazolin Sodium/ Dextrose 50 ml @ 100 mls/hr 1X ONCE 01/04/21 11:00 01/04/21 11:29 DC 01/04/21 10:50 100 MLS/HR Dextrose (Dextrose 50%-Water Syringe) 12.5 gm PRN Q15MIN PRN 12/20/20 21:45 Docusate Sodium (Colace) 100 mg PRN DAILY PRN 12/20/20 21:45 Doxycycline Hyclate (Vibra-Tab) 100 mg BID 01/10/21 09:00 01/10/21 09:07 100 MG Famotidine (Pepcid) 20 mg DAILY 12/21/20 09:00 01/10/21 08:11 20 MG Fentanyl Citrate (Fentanyl 2ml Vial) 100 mcg 1X ONCE 01/04/21 11:00 01/04/21 11:01 DC 01/04/21 10:50 50 MCG Ferrous Sulfate (Feosol) 325 mg BIDWMEALS 12/24/20 17:00 01/10/21 08:10 325 MG Ferrous Sulfate (Iron Oral Solution) 300 mg BIDWMEALS 12/22/20 17:00 12/24/20 11:08 DC 12/24/20 08:54 300 MG Furosemide (Lasix) 40 mg [id number] 12/26/20 10:30 12/30/20 11:38 DC 12/30/20 08:58 40 MG Furosemide 100 mg/ Sodium Chloride 100 ml @ 0 mls/hr CONT PRN 12/21/20 11:30 12/26/20 10:28 DC 12/26/20 10:06 10 MLS/HR Heparin Sodium (Porcine) (Heparin Sodium) 2,500 unit 1X ONCE 12/27/20 12:15 12/27/20 12:19 DC 12/27/20 13:08 5,500 UNIT Heparin Sodium/ Sodium Chloride (HEPARIN for ARTERIAL LINE FLUSH) 1,000 unit 1X ONCE 12/27/20 12:15 12/27/20 12:19 DC 12/27/20 13:04 1,000 UNIT Hydralazine HCl (Apresoline) 25 mg TID 12/21/20 09:00 01/10/21 08:11 25 MG Hydromorphone HCl (Dilaudid) 0.5 mg PRN Q10MIN PRN 12/30/20 06:00 12/31/20 05:59 DC Info (PHARMACY MONITORING -- do not chart) 1 each PRN DAILY PRN 01/07/21 10:15 UNV Insulin Glargine (Lantus Syringe) 15 unit QHS 12/20/20 22:00 01/03/21 13:14 DC 01/02/21 21:42 15 UNIT Insulin Human Lispro (HumaLOG) 0-7 UNITS TIDWMEALS 12/21/20 08:00 01/09/21 17:11 3 UNITS Iodixanol (Visipaque 320) 100 ml 1X ONCE 12/27/20 12:15 12/27/20 12:19 DC 12/27/20 13:04 30 ML Lactobacillus Rhamnosus (Culturelle) 1 cap BID 12/26/20 21:00 01/10/21 08:11 1 CAP Lidocaine HCl (Lidocaine 1% 20ml Vial) 20 ml STK-MED ONCE 12/30/20 07:50 12/30/20 19:07 DC Lidocaine HCl (Lidocaine Pf 2% Vial) 5 ml STK-MED ONCE 12/30/20 06:36 12/30/20 19:06 DC Lidocaine/ Epinephrine (LIDOCAINE 1%-EPI 1:100,000 Multi-Dose) 20 ml 1X ONCE 01/04/21 11:00 01/04/21 11:01 DC 01/04/21 10:51 14 ML Linezolid (Zyvox) 600 mg BID 12/25/20 09:00 01/02/21 09:10 DC 01/02/21 08:43 600 MG Linezolid/Dextrose 300 ml @ 300 mls/hr Q12HR 01/02/21 21:00 01/05/21 08:35 DC 01/04/21 21:27 300 MLS/HR Metoclopramide HCl (Reglan Vial) 5 mg PRN Q6HRS PRN 01/10/21 09:00 Metoprolol Succinate (Toprol Xl) 25 mg DAILY 12/21/20 09:00 01/10/21 08:11 25 MG Midazolam HCl (Versed) 2 mg 1X ONCE 01/04/21 11:00 01/04/21 11:01 DC 01/04/21 10:50 1 MG Morphine Sulfate (Morphine Sulfate) 1 mg PRN Q10MIN PRN 12/30/20 06:00 12/31/20 05:59 DC Nystatin (Nystop) 1 luna BID 12/20/20 22:00 01/10/21 08:12 1 LUNA Ondansetron HCl (Zofran) 4 mg PRN Q6HRS PRN 12/20/20 21:45 01/10/21 09:07 4 MG Polyethylene Glycol (miraLAX PACKET) 17 gm PRN DAILY PRN 12/22/20 12:00 Potassium Chloride (Klor-Con) 40 meq DAILY 12/24/20 09:00 01/02/21 11:03 DC 01/01/21 08:47 40 MEQ Prochlorperazine Edisylate (Compazine) 5 mg PACU PRN PRN 12/30/20 06:00 12/31/20 05:59 DC Propofol (Diprivan) 200 mg STK-MED ONCE 12/30/20 07:56 12/30/20 19:08 DC Ringer's Solution 1,000 ml @ 30 mls/hr Q24H 12/30/20 06:00 12/30/20 17:59 DC 12/30/20 07:05 30 MLS/HR Sennosides (Senna) 17.2 mg PRN BID PRN 12/20/20 21:45 01/01/21 08:44 17.2 MG Sertraline HCl (Zoloft) 50 mg DAILY 12/21/20 09:00 01/10/21 08:12 50 MG Sodium Chloride 1,000 ml @ 400 mls/hr Q2H30M PRN 01/07/21 10:15 01/07/21 22:14 DC Lab Laboratory Tests Test 01/09/21 11:07 01/09/21 16:56 01/09/21 21:12 01/10/21 07:47 Glucose (Fingerstick) 171 mg/dL (70-99) 171 mg/dL (70-99) 140 mg/dL (70-99) 110 mg/dL (70-99) Results All relevant outside records, renal labs, imaging studies, telemetry/EKG's were reviewed. Justicifation of Admission Dx: Justifications for Admission: Justification of Admission Dx: Yes BEATRIZ IBARRA MD Jan 10, 2021 10:18
[2021-01-10] MEDS ORDERED: ONDANSETRON ODT 4 MG TAB.RAPDIS. PO PRN (11:15)
--- NOTE | 2021-01-10 11:48 | PDOC ---
PROGRESS NOTES Date of Service DATE: 01/10/21 TIME: 11:44 Subjective Subjective Patient resting comfortably in bed. Denies any heel pain. Patient seen and examined with Dr. Bowens. Objective Objective Vital Signs Date Time Temp Pulse Resp B/P (MAP) Pulse Ox O2 Delivery O2 Flow Rate FiO2 01/10/21 10:18 97.5 62 20 160/70 (100) 95 Room Air 97.5 01/06/21 20:00 2.0 Intake and Output 01/10/21 07:00 Intake Total 820 ml Output Total 50 ml Balance 770 ml Intake Oral 820 ml Output Urine Total 50 ml Physical Exam Physical Exam Awake and alert Vital signs stable, afebrile Left heel dressing removed, wound with large area of fibrin slough, this was sharply debrided to healthy pink tissue at the bedside. Some active bleeding post debridement. No exposed bone. Foot is warm, severe lower extremity swelling with erythema in calf. 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 s/p Sharp excisional debridement of the left heel to the level of the subcutaneous tissue for a wound area of 5 x 4 cm. Recommend continued wound VAC therapy will switch to veraflo to promote granulation tissue. Antibiotics per ID. Continue to offload. Comment Review of Relevant I have reviewed the following items mara (where applicable) has been applied. Labs Laboratory Tests Test 01/08/21 11:46 01/08/21 16:32 01/08/21 21:16 01/09/21 07:20 Glucose (Fingerstick) 157 mg/dL (70-99) 118 mg/dL (70-99) 123 mg/dL (70-99) 110 mg/dL (70-99) Test 01/09/21 08:55 01/09/21 11:07 01/09/21 16:56 01/09/21 21:12 White Blood Count 12.5 x10^3/uL (4.0-11.0) Red Blood Count 2.90 x10^6/uL (4.30-5.70) Hemoglobin 8.2 g/dL (13.0-17.5) Hematocrit 25.3 % (39.0-53.0) Mean Corpuscular Volume 87 fL (79-100) Mean Corpuscular Hemoglobin 28 pg (25-35) Mean Corpuscular Hemoglobin Concent 33 g/dL (31-37) Red Cell Distribution Width 17.7 % (11.5-14.5) Platelet Count 36 x10^3/uL (140-400) Neutrophils (%) (Auto) 67 % (31-73) Lymphocytes (%) (Auto) 16 % (24-48) Monocytes (%) (Auto) 13 % (0-9) Eosinophils (%) (Auto) 3 % (0-3) Basophils (%) (Auto) 1 % (0-3) Neutrophils # (Auto) 8.3 x10^3/uL (1.8-7.7) Lymphocytes # (Auto) 2.0 x10^3/uL (1.0-4.8) Monocytes # (Auto) 1.6 x10^3/uL (0.0-1.1) Eosinophils # (Auto) 0.4 x10^3/uL (0.0-0.7) Basophils # (Auto) 0.1 x10^3/uL (0.0-0.2) Sodium Level 140 mmol/L (136-145) Potassium Level 4.1 mmol/L (3.5-5.1) Chloride Level 102 mmol/L (98-107) Carbon Dioxide Level 26 mmol/L (21-32) Anion Gap 12 (6-14) Blood Urea Nitrogen 40 mg/dL (8-26) Creatinine 3.7 mg/dL (0.7-1.3) Estimated GFR (Cockcroft-Gault) 16.2 Glucose Level 109 mg/dL (70-99) Calcium Level 8.3 mg/dL (8.5-10.1) Magnesium Level 2.1 mg/dL (1.8-2.4) Glucose (Fingerstick) 171 mg/dL (70-99) 171 mg/dL (70-99) 140 mg/dL (70-99) Test 01/10/21 07:47 Glucose (Fingerstick) 110 mg/dL (70-99) Laboratory Tests Test 01/09/21 16:56 01/09/21 21:12 01/10/21 07:47 Glucose (Fingerstick) 171 mg/dL (70-99) 140 mg/dL (70-99) 110 mg/dL (70-99) Medications Current Medications Apixaban (Eliquis) 2.5 mg BID PO Last administered on 12/21/20 09:00; Start 12/20/20 at 22:00; Stop 12/21/20 at 13:36; Status DC Atorvastatin Calcium (Lipitor) 40 mg HS PO Last administered on 01/09/21at 22:00; Start 12/20/20 at 22:00 Buspirone HCl (Buspar) 10 mg PRN DAILY PRN PO ANXIETY / AGITATION Last administered on 01/05/21at 00:44; Start 12/20/20 at 21:45 Famotidine (Pepcid) 20 mg DAILY PO Last administered on 01/10/21 08:11; Start 12/21/20 at 09:00 Hydralazine HCl (Apresoline) 25 mg TID PO Last administered on 01/10/21 08:11; Start 12/21/20 at 09:00 Insulin Glargine (Lantus Syringe) 15 unit QHS SQ Last administered on 01/02/21at 21:42; Start 12/20/20 at 22:00; Stop 01/03/21 at 13:14; Status DC Metoprolol Succinate (Toprol Xl) 25 mg DAILY PO Last administered on 01/10/21at 08:11; Start 12/21/20 at 09:00 Nystatin (Nystop) 1 daniela BID TP Last administered on 01/10/21 08:12; Start 12/20/20 at 22:00 Sennosides (Senna) 8.6 mg PRN BID PRN PO CONSTIPATION 1ST CHOICE; Start 12/20/20 at 21:45; Stop 12/20/20 at 21:52; Status DC Sertraline HCl (Zoloft) 50 mg DAILY PO Last administered on 01/10/21 08:12; Start 12/21/20 at 09:00 Ascorbic Acid (Vitamin C) 500 mg BID PO Last administered on 01/10/21 08:12; Start 12/20/20 at 22:00 Furosemide (Lasix) 40 mg 1X ONCE IVP Last administered on 12/20/20at 23:03; Start 12/20/20 at 21:45; Stop 12/20/20 at 21:46; Status DC Sennosides (Senna) 17.2 mg PRN BID PRN PO CONSTIPATION, 2ND CHOICE Last administered on 01/01/21at 08:44; Start 12/20/20 at 21:45 Docusate Sodium (Colace) 100 mg PRN DAILY PRN PO HARD STOOLS; Start 12/20/20 at 21:45 Ondansetron HCl (Zofran) 4 mg PRN Q6HRS PRN IVP NAUSEA/VOMITING Last administered on 01/10/21at 09:07; Start 12/20/20 at 21:45 Insulin Human Lispro (HumaLOG) 0-7 UNITS TIDWMEALS SQ Last administered on 01/09/21at 17:11; Start 12/21/20 at 08:00 Dextrose (Dextrose 50%-Water Syringe) 12.5 gm PRN Q15MIN PRN IV SEE COMMENTS; Start 12/20/20 at 21:45 Acetaminophen (Tylenol) 650 mg PRN Q4HRS PRN PO TEMP OVER 100.4F OR MILD PAIN Last administered on 01/04/21at 21:27; Start 12/20/20 at 21:45 Furosemide 100 mg/ Sodium Chloride 100 ml @ 0 mls/hr CONT PRN IV SEE I/O RECORD Last administered on 12/26/20at 10:06; Start 12/21/20 at 11:30; Stop 12/26/20 at 10:28; Status DC Potassium Chloride (Klor-Con) 20 meq 1X ONCE PO Last administered on 12/21/20at 14:02; Start 12/21/20 at 12:15; Stop 12/21/20 at 12:16; Status DC Potassium Chloride (Klor-Con) 40 meq 1X ONCE PO Last administered on 12/22/20at 08:39; Start 12/22/20 at 08:30; Stop 12/22/20 at 08:31; Status DC Ferrous Sulfate (Iron Oral Solution) 300 mg BIDWMEALS PO Last administered on 12/24/20at 08:54; Start 12/22/20 at 17:00; Stop 12/24/20 at 11:08; Status DC Polyethylene Glycol (miraLAX PACKET) 17 gm PRN DAILY PRN PO CONSTIPATION, 1ST CHOICE; Start 12/22/20 at 12:00 Potassium Chloride (Klor-Con) 40 meq 1X ONCE PO Last administered on 12/23/20at 06:54; Start 12/23/20 at 07:00; Stop 12/23/20 at 07:01; Status DC Potassium Chloride (Klor-Con) 40 meq 1X ONCE PO Last administered on 12/23/20at 08:54; Start 12/23/20 at 09:00; Stop 12/23/20 at 09:01; Status DC Potassium Chloride (Klor-Con) 40 meq DAILY PO Last administered on 01/01/21at 08:47; Start 12/24/20 at 09:00; Stop 01/02/21 at 11:03; Status DC Ferrous Sulfate (Feosol) 325 mg BIDWMEALS PO Last administered on 01/10/21 08:10; Start 12/24/20 at 17:00 Linezolid (Zyvox) 600 mg BID PO Last administered on 01/02/21at 08:43; Start 12/25/20 at 09:00; Stop 01/02/21 at 09:10; Status DC Amoxicillin/ Clavulanate Potassium (Augmentin 875/ 125mg) 1 tab BID PO Last administered on 12/31/20at 08:29; Start 12/25/20 at 09:00; Stop 12/31/20 at 08:43; Status DC Furosemide (Lasix) 40 mg BID94 PO Last administered on 12/30/20at 08:58; Start 12/26/20 at 10:30; Stop 12/30/20 at 11:38; Status DC Lactobacillus Rhamnosus (Culturelle) 1 cap BID PO Last administered on 01/10/21at 08:11; Start 12/26/20 at 21:00 Iodixanol (Visipaque 320) 100 ml STK-MED ONCE .ROUTE ; Start 12/27/20 at 10:35; Stop 12/27/20 at 10:35; Status DC Lidocaine HCl (Lidocaine 1% 20ml Vial) 20 ml STK-MED ONCE .ROUTE ; Start 12/27/20 at 10:35; Stop 12/27/20 at 10:35; Status DC Heparin Sodium/ Sodium Chloride 1,000 ml @ As Directed STK-MED ONCE .ROUTE ; Start 12/27/20 at 10:35; Stop 12/27/20 at 10:35; Status DC Midazolam HCl (Versed) 5 mg STK-MED ONCE .ROUTE ; Start 12/27/20 at 11:40; Stop 12/27/20 at 11:40; Status DC Fentanyl Citrate (Fentanyl 2ml Vial) 100 mcg STK-MED ONCE .ROUTE ; Start 12/27/20 at 11:40; Stop 12/27/20 at 11:40; Status DC Heparin Sodium (Porcine) (Heparin Sodium) 10,000 unit STK-MED ONCE .ROUTE ; Start 12/27/20 at 11:40; Stop 12/27/20 at 11:40; Status DC Heparin Sodium/ Sodium Chloride (HEPARIN for ARTERIAL LINE FLUSH) 1,000 unit 1X ONCE IART Last administered on 12/27/20at 13:04; Start 12/27/20 at 12:15; Stop 12/27/20 at 12:19; Status DC Heparin Sodium/ Sodium Chloride (HEPARIN for ARTERIAL LINE FLUSH) 1,000 unit 1X ONCE IART Last administered on 12/27/20at 13:04; Start 12/27/20 at 12:15; Stop 12/27/20 at 12:19; Status DC Midazolam HCl (Versed) 5 mg 1X ONCE IV Last administered on 12/27/20at 13:05; Start 12/27/20 at 12:15; Stop 12/27/20 at 12:19; Status DC Fentanyl Citrate (Fentanyl 2ml Vial) 100 mcg 1X ONCE IV Last administered on 12/27/20at 13:06; Start 12/27/20 at 12:15; Stop 12/27/20 at 12:19; Status DC Iodixanol (Visipaque 320) 100 ml 1X ONCE IART Last administered on 12/27/20at 13:04; Start 12/27/20 at 12:15; Stop 12/27/20 at 12:19; Status DC Heparin Sodium (Porcine) (Heparin Sodium) 2,500 unit 1X ONCE IV Last administered on 12/27/20at 13:08; Start 12/27/20 at 12:15; Stop 12/27/20 at 12:19; Status DC Lidocaine HCl (Lidocaine 1% 20ml Vial) 20 ml 1X ONCE INJ Last administered on 12/27/20at 13:04; Start 12/27/20 at 12:15; Stop 12/27/20 at 12:19; Status DC Fentanyl Citrate (Fentanyl 2ml Vial) 25 mcg PRN Q5MIN PRN IVP MILD PAIN 1-3; Start 12/30/20 at 06:00; Stop 12/31/20 at 05:59; Status DC Fentanyl Citrate (Fentanyl 2ml Vial) 50 mcg PRN Q5MIN PRN IVP MODERATE PAIN 4- 6; Start 12/30/20 at 06:00; Stop 12/31/20 at 05:59; Status DC Morphine Sulfate (Morphine Sulfate) 1 mg PRN Q10MIN PRN IVP SEVERE PAIN 7-10; Start 12/30/20 at 06:00; Stop 12/31/20 at 05:59; Status DC Ringer's Solution 1,000 ml @ 30 mls/hr Q24H IV Last administered on 12/30/20at 07:05; Start 12/30/20 at 06:00; Stop 12/30/20 at 17:59; Status DC Hydromorphone HCl (Dilaudid) 0.5 mg PRN Q10MIN PRN IVP SEVERE PAIN 7-10, 2nd CHOICE; Start 12/30/20 at 06:00; Stop 12/31/20 at 05:59; Status DC Prochlorperazine Edisylate (Compazine) 5 mg PACU PRN PRN IVP NAUSEA, MRX1; Start 12/30/20 at 06:00; Stop 12/31/20 at 05:59; Status DC Cefazolin Sodium/ Dextrose 50 ml @ 100 mls/hr 1X ONCE IV Last administered on 12/30/20at 07:20; Start 12/30/20 at 08:00; Stop 12/30/20 at 08:29; Status DC Sodium Chloride 500 ml @ 75 mls/hr 1X ONCE IV Last administered on 12/30/20at 17:44; Start 12/30/20 at 18:00; Stop 12/31/20 at 00:39; Status DC Propofol (Diprivan) 200 mg STK-MED ONCE IV ; Start 12/30/20 at 06:36; Stop 12/30/20 at 19:06; Status DC Lidocaine HCl (Lidocaine Pf 2% Vial) 5 ml STK-MED ONCE .ROUTE ; Start 12/30/20 at 06:36; Stop 12/30/20 at 19:06; Status DC Lidocaine HCl (Lidocaine 1% 20ml Vial) 20 ml STK-MED ONCE .ROUTE ; Start 12/30/20 at 07:50; Stop 12/30/20 at 19:07; Status DC Propofol (Diprivan) 200 mg STK-MED ONCE IV ; Start 12/30/20 at 07:56; Stop 12/30/20 at 19:08; Status DC Amoxicillin/ Clavulanate Potassium (Augmentin 500/ 125mg) 1 tab BID PO ; Start 12/31/20 at 09:00; Stop 12/31/20 at 09:10; Status DC Amoxicillin/ Clavulanate Potassium (Augmentin 500/ 125mg) 1 tab BID PO Last administered on 01/04/21at 21:27; Start 12/31/20 at 21:00; Stop 01/05/21 at 15:34; Status DC Sodium Chloride 1,000 ml @ 75 mls/hr 1X ONCE IV Last administered on 12/31/20at 11:27; Start 12/31/20 at 11:30; Stop 01/01/21 at 00:49; Status DC Aspirin (Ecotrin) 81 mg DAILYWBKFT PO Last administered on 01/10/21at 08:10; Start 01/01/21 at 08:00 Sodium Chloride 1,000 ml @ 75 mls/hr [id number] IV Last administered on 01/03/21at 05:20; Start 01/01/21 at 12:00; Stop 01/03/21 at 12:55; Status DC Linezolid/Dextrose 300 ml @ 300 mls/hr Q12HR IV Last administered on 01/04/21at 21:27; Start 01/02/21 at 21:00; Stop 01/05/21 at 08:35; Status DC Lidocaine/ Epinephrine (LIDOCAINE 1%-EPI 1:100,000 Multi-Dose) 20 ml STK-MED ONCE .ROUTE ; Start 01/04/21 at 10:00; Stop 01/04/21 at 10:00; Status DC Midazolam HCl (Versed) 2 mg STK-MED ONCE .ROUTE ; Start 01/04/21 at 10:31; Stop 01/04/21 at 10:31; Status DC Fentanyl Citrate (Fentanyl 2ml Vial) 100 mcg STK-MED ONCE .ROUTE ; Start 01/04/21 at 10:31; Stop 01/04/21 at 10:31; Status DC Cefazolin Sodium/ Dextrose 50 ml @ As Directed STK-MED ONCE IV ; Start 01/04/21 at 10:31; Stop 01/04/21 at 10:31; Status DC Midazolam HCl (Versed) 2 mg 1X ONCE IV Last administered on 01/04/21at 10:50; Start 01/04/21 at 11:00; Stop 01/04/21 at 11:01; Status DC Fentanyl Citrate (Fentanyl 2ml Vial) 100 mcg 1X ONCE IV Last administered on 01/04/21at 10:50; Start 01/04/21 at 11:00; Stop 01/04/21 at 11:01; Status DC Lidocaine/ Epinephrine (LIDOCAINE 1%-EPI 1:100,000 Multi-Dose) 20 ml 1X ONCE SQ Last administered on 01/04/21at 10:51; Start 01/04/21 at 11:00; Stop 01/04/21 at 11:01; Status DC Cefazolin Sodium/ Dextrose 50 ml @ 100 mls/hr 1X ONCE IV Last administered on 01/04/21at 10:50; Start 01/04/21 at 11:00; Stop 01/04/21 at 11:29; Status DC Sodium Chloride 1,000 ml @ 1,000 mls/hr Q1H PRN IV hypotension; Start 01/04/21 at 11:00; Stop 01/04/21 at 16:59; Status DC Albumin Human 200 ml @ 200 mls/hr 1X PRN PRN IV Hypotension; Start 01/04/21 at 11:00; Stop 01/04/21 at 16:59; Status DC Sodium Chloride 1,000 ml @ 400 mls/hr Q2H30M PRN IV PATENCY; Start 01/04/21 at 11:00; Stop 01/04/21 at 22:59; Status DC Info (PHARMACY MONITORING -- do not chart) 1 each PRN DAILY PRN MC SEE COMMENTS; Start 01/04/21 at 12:45; Status UNV Info (PHARMACY MONITORING -- do not chart) 1 each PRN DAILY PRN MC SEE COMMENTS; Start 01/04/21 at 12:45; Stop 01/05/21 at 15:39; Status DC Doxycycline Hyclate (Vibra-Tab) 100 mg BID PO Last administered on 01/07/21at 09:06; Start 01/05/21 at 09:00; Stop 01/07/21 at 11:03; Status DC Sodium Chloride 1,000 ml @ 1,000 mls/hr Q1H PRN IV hypotension; Start 01/05/21 at 11:45; Stop 01/05/21 at 17:44; Status DC Albumin Human 200 ml @ 200 mls/hr 1X PRN PRN IV Hypotension; Start 01/05/21 at 11:45; Stop 01/05/21 at 17:44; Status DC Sodium Chloride 1,000 ml @ 400 mls/hr Q2H30M PRN IV PATENCY; Start 01/05/21 at 11:45; Stop 01/05/21 at 23:44; Status DC Info (PHARMACY MONITORING -- do not chart) 1 each PRN DAILY PRN MC SEE COMMENTS; Start 01/05/21 at 11:45; Status UNV Info (PHARMACY MONITORING -- do not chart) 1 each PRN DAILY PRN MC SEE COMMENTS; Start 01/05/21 at 11:45 Amoxicillin/ Clavulanate Potassium (Augmentin 500/ 125mg) 1 tab DAILY PO Last administered on 01/07/21at 09:06; Start 01/06/21 at 09:00; Stop 01/07/21 at 11:03; Status DC Sodium Chloride 1,000 ml @ 1,000 mls/hr Q1H PRN IV hypotension; Start 01/07/21 at 10:15; Stop 01/07/21 at 16:14; Status DC Sodium Chloride 1,000 ml @ 400 mls/hr Q2H30M PRN IV PATENCY; Start 01/07/21 at 10:15; Stop 01/07/21 at 22:14; Status DC Info (PHARMACY MONITORING -- do not chart) 1 each PRN DAILY PRN MC SEE COMMENTS; Start 01/07/21 at 10:15; Status UNV Acetaminophen (Tylenol) 650 mg 1X PRN PRN PO PRE-TRANSFUSION Last administered on 01/08/21at 14:02; Start 01/08/21 at 11:45; Stop 01/09/21 at 11:44; Status DC Amoxicillin/ Clavulanate Potassium (Augmentin 500/ 125mg) 1 tab BID PO Last administered on 01/10/21at 09:07; Start 01/10/21 at 09:00 Doxycycline Hyclate (Vibra-Tab) 100 mg BID PO Last administered on 01/10/21at 09:07; Start 01/10/21 at 09:00 Metoclopramide HCl (Reglan Vial) 5 mg PRN Q6HRS PRN IVP NAUSEA/VOMITING- 2ND CHOICE; Start 01/10/21 at 09:00 Ondansetron HCl (Zofran Odt) 4 mg QIDACHS PRN PO NAUSEA/VOMITING; Start 01/10/21 at 11:15 Active Scripts Active Lantus (Insulin Glargine,Hum.rec.anlog) 100 Unit/1 Ml Vial 15 Unit SQ QHS 30 Days Famotidine 20 Mg Tablet 20 Mg PO DAILY 30 Days Acetaminophen Supp (Acetaminophen) 650 Mg Supp.rect 650 Mg [place] PRN Q4HRS PRN 30 Days Hydralazine Hcl 25 Mg Tablet 25 Mg PO TID 30 Days Reported Tylenol (Acetaminophen) 325 Mg Tablet 1-2 Tab PO QID Vitamin C (Ascorbic Acid) 500 Mg Capsule 500 Mg PO BID Senokot (Sennosides) 8.6 Mg Tablet 1 Tab PO BID PRN 20 Days Potassium Chloride 20 Meq Tablet.er 20 Meq PO DAILY Nystatin 15 Gm Powder 1 Daniela TP BID 7 Days apply to affected area(s) Lasix (Furosemide) 40 Mg Tablet 40 Mg PO BIDBFRMEAL Zoloft (Sertraline Hcl) 50 Mg Tablet 50 Mg PO DAILY Metoprolol Succinate ( Xl ) (Metoprolol Succinate) 25 Mg Tab.er.24h 25 Mg PO DAILY Eliquis (Apixaban) 5 Mg Tablet 2.5 Mg PO BID Slow Release Iron (Ferrous Sulfate) 160 Mg Tablet.er 160 Mg PO DAILY Buspirone Hcl 10 Mg Tablet 1 Tab PO PRN DAILY PRN Atorvastatin Calcium 40 Mg Tablet 40 Mg PO HS Vitals/I & O Vital Sign - Last 24 Hours 01/09/21 01/09/21 01/09/21 01/09/21 13:47 14:48 19:20 20:00 Temp 98.1 98.0 98.1 98.0 Pulse 60 60 60 Resp 18 20 B/P (MAP) 129/62 123/56 (78) 153/66 (95) Pulse Ox 95 94 O2 Delivery Room Air Room Air Room Air 01/09/21 01/09/21 01/10/21 01/10/21 22:01 22:50 03:15 07:30 Temp 97.9 98.8 97.9 98.8 Pulse 60 59 59 Resp 20 20 B/P (MAP) 153/66 137/60 (85) 158/69 (98) Pulse Ox 95 93 O2 Delivery Room Air Room Air Room Air 01/10/21 01/10/21 01/10/21 01/10/21 07:45 08:11 08:11 10:18 Temp 97.8 97.5 97.8 97.5 Pulse 58 58 58 62 Resp 18 20 B/P (MAP) 148/64 (92) 148/64 148/64 160/70 (100) Pulse Ox 95 95 O2 Delivery Room Air Room Air Intake and Output 01/09/21 01/09/21 01/10/21 15:00 23:00 07:00 Intake Total 360 ml 300 ml 160 ml Output Total 50 ml Balance 360 ml 300 ml 110 ml Justifications for Admission Other Justification CHF exacerbation CHAS BERNAL APRN Jan 10, 2021 11:47
--- NOTE | 2021-01-10 12:51 | NUR ---
SS following up with discharge planning. SS reviewed pt chart and discussed with pt RN. Pt is currently on room air. COVID19 negative. PT/OT recommended nursing home unit. Pt accepted at [facility], ; fax [phone]. [facility] contacted hospital and stated that they can no longer accept pt due to pt being reactive for Hepatitis B. SS contacted [facility] and notified. [facility] working on finding new placement for pt at this time. SS will continue to follow for discharge planning.
[2021-01-10 14:50] VITALS: BP 121/48
[2021-01-10] MEDS ORDERED: DIALYSIS PATIENT. MC PRN ×4 (15:30→16:15)
[2021-01-10] MEDS ORDERED: ALBUMIN HUMAN 25% 200 ML IV PRN ×2 (15:30→16:15)
[2021-01-10] MEDS ORDERED: diphenhydrAMINE 50 MG/ML VIAL IV PRN ×2 (15:30→16:15)
[2021-01-10] MEDS ORDERED: IV NORMAL SALINE 1000ML BAG 1,000 ML IV PRN ×4 (15:30→16:15)
--- NOTE | 2021-01-10 16:56 | NUR ---
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 Patient is well known to us from the wound clinic. Wounds cleansed, assessed, and measured. The stasis ulcer to the left lower leg is now healed. Vascular assessed patient earlier today and notified us in regards about placing a Veraflo wound vac to the left heel today. Treatment Recommendations/Plan: Recommendations to apply Iodoflex to right heel and cover with foam dressing. Skin prep to the left medial foot, skin prep and foam to the left lateral foot. Dressings applied. Orders for Veraflo vac to the left heel. Skin prepped and one waffle foam and 1 mendez piece of foam placed to left heel wound bed, vact tracked to dorsal foot, and a good seal maintained at 125mmHg with 12mL instilled every 3 hours for a dwell time of 3 minutes. No other wounds noted. no other wounds noted. Education provided: Patient educated on dressing changes and PU prevention. Offloading surface/device: Patient is on a P-500 bed, patient has bilateral heel medix which were placed back on patient and floated using pillows. Recommended Referrals/Tests: N/A Discharge Recommendations for dressings: Dressing change instructions left in room. Wound care will follow up this Sunday01/12/21. Bed lowered and call light in reach.
--- NOTE | 2021-01-10 17:31 | PDOC ---
G I PROGRESS NOTE Reason for Follow-up Anemia/hep B Subjective Hemodialysis in progress Physical Exam Lungs clear CV S1 S2 ABD +BS, soft, distended Review of Relevant I have reviewed the following items mara (where applicable) has been applied. Labs Laboratory Tests Test 01/08/21 21:16 01/09/21 07:20 01/09/21 08:55 01/09/21 11:07 Glucose (Fingerstick) 123 mg/dL (70-99) 110 mg/dL (70-99) 171 mg/dL (70-99) White Blood Count 12.5 x10^3/uL (4.0-11.0) Red Blood Count 2.90 x10^6/uL (4.30-5.70) Hemoglobin 8.2 g/dL (13.0-17.5) Hematocrit 25.3 % (39.0-53.0) Mean Corpuscular Volume 87 fL (79-100) Mean Corpuscular Hemoglobin 28 pg (25-35) Mean Corpuscular Hemoglobin Concent 33 g/dL (31-37) Red Cell Distribution Width 17.7 % (11.5-14.5) Platelet Count 36 x10^3/uL (140-400) Neutrophils (%) (Auto) 67 % (31-73) Lymphocytes (%) (Auto) 16 % (24-48) Monocytes (%) (Auto) 13 % (0-9) Eosinophils (%) (Auto) 3 % (0-3) Basophils (%) (Auto) 1 % (0-3) Neutrophils # (Auto) 8.3 x10^3/uL (1.8-7.7) Lymphocytes # (Auto) 2.0 x10^3/uL (1.0-4.8) Monocytes # (Auto) 1.6 x10^3/uL (0.0-1.1) Eosinophils # (Auto) 0.4 x10^3/uL (0.0-0.7) Basophils # (Auto) 0.1 x10^3/uL (0.0-0.2) Sodium Level 140 mmol/L (136-145) Potassium Level 4.1 mmol/L (3.5-5.1) Chloride Level 102 mmol/L (98-107) Carbon Dioxide Level 26 mmol/L (21-32) Anion Gap 12 (6-14) Blood Urea Nitrogen 40 mg/dL (8-26) Creatinine 3.7 mg/dL (0.7-1.3) Estimated GFR (Cockcroft-Gault) 16.2 Glucose Level 109 mg/dL (70-99) Calcium Level 8.3 mg/dL (8.5-10.1) Magnesium Level 2.1 mg/dL (1.8-2.4) Test 01/09/21 16:56 01/09/21 21:12 01/10/21 07:47 01/10/21 12:40 Glucose (Fingerstick) 171 mg/dL (70-99) 140 mg/dL (70-99) 110 mg/dL (70-99) 170 mg/dL (70-99) Test 01/10/21 16:45 Glucose (Fingerstick) 142 mg/dL (70-99) Laboratory Tests Test 01/09/21 21:12 01/10/21 07:47 01/10/21 12:40 01/10/21 16:45 Glucose (Fingerstick) 140 mg/dL (70-99) 110 mg/dL (70-99) 170 mg/dL (70-99) 142 mg/dL (70-99) Medications Current Medications Apixaban (Eliquis) 2.5 mg BID PO Last administered on 12/21/20at 09:00; Start 12/20/20 at 22:00; Stop 12/21/20 at 13:36; Status DC Atorvastatin Calcium (Lipitor) 40 mg HS PO Last administered on 01/09/21at 22:00; Start 12/20/20 at 22:00 Buspirone HCl (Buspar) 10 mg PRN DAILY PRN PO ANXIETY / AGITATION Last a dministered on 01/05/21at 00:44; Start 12/20/20 at 21:45 Famotidine (Pepcid) 20 mg DAILY PO Last administered on 01/10/21at 08:11; Start 12/21/20 at 09:00 Hydralazine HCl (Apresoline) 25 mg TID PO Last administered on 01/10/21at 13:29; Start 12/21/20 at 09:00 Insulin Glargine (Lantus Syringe) 15 unit QHS SQ Last administered on 01/02/21at 21:42; Start 12/20/20 at 22:00; Stop 01/03/21 at 13:14; Status DC Metoprolol Succinate (Toprol Xl) 25 mg DAILY PO Last administered on 01/10/21 08:11; Start 12/21/20 at 09:00 Nystatin (Nystop) 1 daniela BID TP Last administered on 01/10/21 08:12; Start 12/20/20 at 22:00 Sennosides (Senna) 8.6 mg PRN BID PRN PO CONSTIPATION 1ST CHOICE; Start 12/20/20 at 21:45; Stop 12/20/20 at 21:52; Status DC Sertraline HCl (Zoloft) 50 mg DAILY PO Last administered on 01/10/21 08:12; Start 12/21/20 at 09:00 Ascorbic Acid (Vitamin C) 500 mg BID PO Last administered on 01/10/21 08:12; Start 12/20/20 at 22:00 Furosemide (Lasix) 40 mg 1X ONCE IVP Last administered on 12/20/20 23:03; Start 12/20/20 at 21:45; Stop 12/20/20 at 21:46; Status DC Sennosides (Senna) 17.2 mg PRN BID PRN PO CONSTIPATION, 2ND CHOICE Last admin istered on 01/01/21 08:44; Start 12/20/20 at 21:45 Docusate Sodium (Colace) 100 mg PRN DAILY PRN PO HARD STOOLS; Start 12/20/20 at 21:45 Ondansetron HCl (Zofran) 4 mg PRN Q6HRS PRN IVP NAUSEA/VOMITING Last administered on 01/10/21 09:07; Start 12/20/20 at 21:45 Insulin Human Lispro (HumaLOG) 0-7 UNITS TIDWMEALS SQ Last administered on 01/10/21 12:49; Start 12/21/20 at 08:00 Dextrose (Dextrose 50%-Water Syringe) 12.5 gm PRN Q15MIN PRN IV SEE COMMENTS; Start 12/20/20 at 21:45 Acetaminophen (Tylenol) 650 mg PRN Q4HRS PRN PO TEMP OVER 100.4F OR MILD PAIN Last administered on 01/04/21at 21:27; Start 12/20/20 at 21:45 Furosemide 100 mg/ Sodium Chloride 100 ml @ 0 mls/hr CONT PRN IV SEE I/O RECORD Last administered on 12/26/20at 10:06; Start 12/21/20 at 11:30; Stop 12/26/20 at 10:28; Status DC Potassium Chloride (Klor-Con) 20 meq 1X ONCE PO Last administered on 12/21/20at 14:02; Start 12/21/20 at 12:15; Stop 12/21/20 at 12:16; Status DC Potassium Chloride (Klor-Con) 40 meq 1X ONCE PO Last administered on 12/22/20at 08:39; Start 12/22/20 at 08:30; Stop 12/22/20 at 08:31; Status DC Ferrous Sulfate (Iron Oral Solution) 300 mg BIDWMEALS PO Last administered on 12/24/20at 08:54; Start 12/22/20 at 17:00; Stop 12/24/20 at 11:08; Status DC Polyethylene Glycol (miraLAX PACKET) 17 gm PRN DAILY PRN PO CONSTIPATION, 1ST CHOICE; Start 12/22/20 at 12:00 Potassium Chloride (Klor-Con) 40 meq 1X ONCE PO Last administered on 12/23/20at 06:54; Start 12/23/20 at 07:00; Stop 12/23/20 at 07:01; Status DC Potassium Chloride (Klor-Con) 40 meq 1X ONCE PO Last administered on 12/23/20at 08:54; Start 12/23/20 at 09:00; Stop 12/23/20 at 09:01; Status DC Potassium Chloride (Klor-Con) 40 meq DAILY PO Last administered on 01/01/21at 08:47; Start 12/24/20 at 09:00; Stop 01/02/21 at 11:03; Status DC Ferrous Sulfate (Feosol) 325 mg BIDWMEALS PO Last administered on 01/10/21at 08:10; Start 12/24/20 at 17:00 Linezolid (Zyvox) 600 mg BID PO Last administered on 01/02/21at 08:43; Start 12/25/20 at 09:00; Stop 01/02/21 at 09:10; Status DC Amoxicillin/ Clavulanate Potassium (Augmentin 875/ 125mg) 1 tab BID PO Last administered on 12/31/20at 08:29; Start 12/25/20 at 09:00; Stop 12/31/20 at 08:43; Status DC Furosemide (Lasix) 40 mg BID94 PO Last administered on 12/30/20at 08:58; Start 12/26/20 at 10:30; Stop 12/30/20 at 11:38; Status DC Lactobacillus Rhamnosus (Culturelle) 1 cap BID PO Last administered on 01/10/21at 08:11; Start 12/26/20 at 21:00 Iodixanol (Visipaque 320) 100 ml STK-MED ONCE .ROUTE ; Start 12/27/20 at 10:35; Stop 12/27/20 at 10:35; Status DC Lidocaine HCl (Lidocaine 1% 20ml Vial) 20 ml STK-MED ONCE .ROUTE ; Start 12/27/20 at 10:35; Stop 12/27/20 at 10:35; Status DC Heparin Sodium/ Sodium Chloride 1,000 ml @ As Directed STK-MED ONCE .ROUTE ; Start 12/27/20 at 10:35; Stop 12/27/20 at 10:35; Status DC Midazolam HCl (Versed) 5 mg STK-MED ONCE .ROUTE ; Start 12/27/20 at 11:40; Stop 12/27/20 at 11:40; Status DC Fentanyl Citrate (Fentanyl 2ml Vial) 100 mcg STK-MED ONCE .ROUTE ; Start 12/27/20 at 11:40; Stop 12/27/20 at 11:40; Status DC Heparin Sodium (Porcine) (Heparin Sodium) 10,000 unit STK-MED ONCE .ROUTE ; Start 12/27/20 at 11:40; Stop 12/27/20 at 11:40; Status DC Heparin Sodium/ Sodium Chloride (HEPARIN for ARTERIAL LINE FLUSH) 1,000 unit 1X ONCE IART Last administered on 12/27/20at 13:04; Start 12/27/20 at 12:15; Stop 12/27/20 at 12:19; Status DC Heparin Sodium/ Sodium Chloride (HEPARIN for ARTERIAL LINE FLUSH) 1,000 unit 1X ONCE IART Last administered on 12/27/20at 13:04; Start 12/27/20 at 12:15; Stop 12/27/20 at 12:19; Status DC Midazolam HCl (Versed) 5 mg 1X ONCE IV Last administered on 12/27/20at 13:05; Start 12/27/20 at 12:15; Stop 12/27/20 at 12:19; Status DC Fentanyl Citrate (Fentanyl 2ml Vial) 100 mcg 1X ONCE IV Last administered on 12/27/20at 13:06; Start 12/27/20 at 12:15; Stop 12/27/20 at 12:19; Status DC Iodixanol (Visipaque 320) 100 ml 1X ONCE IART Last administered on 12/27/20at 1 3:04; Start 12/27/20 at 12:15; Stop 12/27/20 at 12:19; Status DC Heparin Sodium (Porcine) (Heparin Sodium) 2,500 unit 1X ONCE IV Last administered on 12/27/20at 13:08; Start 12/27/20 at 12:15; Stop 12/27/20 at 12:19; Status DC Lidocaine HCl (Lidocaine 1% 20ml Vial) 20 ml 1X ONCE INJ Last administered on 12/27/20at 13:04; Start 12/27/20 at 12:15; Stop 12/27/20 at 12:19; Status DC Fentanyl Citrate (Fentanyl 2ml Vial) 25 mcg PRN Q5MIN PRN IVP MILD PAIN 1-3; Start 12/30/20 at 06:00; Stop 12/31/20 at 05:59; Status DC Fentanyl Citrate (Fentanyl 2ml Vial) 50 mcg PRN Q5MIN PRN IVP MODERATE PAIN 4- 6; Start 12/30/20 at 06:00; Stop 12/31/20 at 05:59; Status DC Morphine Sulfate (Morphine Sulfate) 1 mg PRN Q10MIN PRN IVP SEVERE PAIN 7-10; Start 12/30/20 at 06:00; Stop 12/31/20 at 05:59; Status DC Ringer's Solution 1,000 ml @ 30 mls/hr Q24H IV Last administered on 12/30/20at 07:05; Start 12/30/20 at 06:00; Stop 12/30/20 at 17:59; Status DC Hydromorphone HCl (Dilaudid) 0.5 mg PRN Q10MIN PRN IVP SEVERE PAIN 7-10, 2nd CHOICE; Start 12/30/20 at 06:00; Stop 12/31/20 at 05:59; Status DC Prochlorperazine Edisylate (Compazine) 5 mg PACU PRN PRN IVP NAUSEA, MRX1; Start 12/30/20 at 06:00; Stop 12/31/20 at 05:59; Status DC Cefazolin Sodium/ Dextrose 50 ml @ 100 mls/hr 1X ONCE IV Last administered on 12/30/20at 07:20; Start 12/30/20 at 08:00; Stop 12/30/20 at 08:29; Status DC Sodium Chloride 500 ml @ 75 mls/hr 1X ONCE IV Last administered on 12/30/20at 17:44; Start 12/30/20 at 18:00; Stop 12/31/20 at 00:39; Status DC Propofol (Diprivan) 200 mg STK-MED ONCE IV ; Start 12/30/20 at 06:36; Stop 12/30/20 at 19:06; Status DC Lidocaine HCl (Lidocaine Pf 2% Vial) 5 ml STK-MED ONCE .ROUTE ; Start 12/30/20 at 06:36; Stop 12/30/20 at 19:06; Status DC Lidocaine HCl (Lidocaine 1% 20ml Vial) 20 ml STK-MED ONCE .ROUTE ; Start 12/30/20 at 07:50; Stop 12/30/20 at 19:07; Status DC Propofol (Diprivan) 200 mg STK-MED ONCE IV ; Start 12/30/20 at 07:56; Stop 12/30/20 at 19:08; Status DC Amoxicillin/ Clavulanate Potassium (Augmentin 500/ 125mg) 1 tab BID PO ; Start 12/31/20 at 09:00; Stop 12/31/20 at 09:10; Status DC Amoxicillin/ Clavulanate Potassium (Augmentin 500/ 125mg) 1 tab BID PO Last administered on 01/04/21at 21:27; Start 12/31/20 at 21:00; Stop 01/05/21 at 15:34; Status DC Sodium Chloride 1,000 ml @ 75 mls/hr 1X ONCE IV Last administered on 12/31/20at 11:27; Start 12/31/20 at 11:30; Stop 01/01/21 at 00:49; Status DC Aspirin (Ecotrin) 81 mg DAILYWBKFT PO Last administered on 01/10/21at 08:10; Start 01/01/21 at 08:00 Sodium Chloride 1,000 ml @ 75 mls/hr [id number] IV Last administered on 01/03/21at 05:20; Start 01/01/21 at 12:00; Stop 01/03/21 at 12:55; Status DC Linezolid/Dextrose 300 ml @ 300 mls/hr Q12HR IV Last administered on 01/04/21at 21:27; Start 01/02/21 at 21:00; Stop 01/05/21 at 08:35; Status DC Lidocaine/ Epinephrine (LIDOCAINE 1%-EPI 1:100,000 Multi-Dose) 20 ml STK-MED ONCE .ROUTE ; Start 01/04/21 at 10:00; Stop 01/04/21 at 10:00; Status DC Midazolam HCl (Versed) 2 mg STK-MED ONCE .ROUTE ; Start 01/04/21 at 10:31; Stop 01/04/21 at 10:31; Status DC Fentanyl Citrate (Fentanyl 2ml Vial) 100 mcg STK-MED ONCE .ROUTE ; Start 01/04/21 at 10:31; Stop 01/04/21 at 10:31; Status DC Cefazolin Sodium/ Dextrose 50 ml @ As Directed STK-MED ONCE IV ; Start 01/04/21 at 10:31; Stop 01/04/21 at 10:31; Status DC Midazolam HCl (Versed) 2 mg 1X ONCE IV Last administered on 01/04/21at 10:50; Start 01/04/21 at 11:00; Stop 01/04/21 at 11:01; Status DC Fentanyl Citrate (Fentanyl 2ml Vial) 100 mcg 1X ONCE IV Last administered on 01/04/21at 10:50; Start 01/04/21 at 11:00; Stop 01/04/21 at 11:01; Status DC Lidocaine/ Epinephrine (LIDOCAINE 1%-EPI 1:100,000 Multi-Dose) 20 ml 1X ONCE SQ Last administered on 01/04/21at 10:51; Start 01/04/21 at 11:00; Stop 01/04/21 at 11:01; Status DC Cefazolin Sodium/ Dextrose 50 ml @ 100 mls/hr 1X ONCE IV Last administered on 01/04/21at 10:50; Start 01/04/21 at 11:00; Stop 01/04/21 at 11:29; Status DC Sodium Chloride 1,000 ml @ 1,000 mls/hr Q1H PRN IV hypotension; Start 01/04/21 at 11:00; Stop 01/04/21 at 16:59; Status DC Albumin Human 200 ml @ 200 mls/hr 1X PRN PRN IV Hypotension; Start 01/04/21 at 11:00; Stop 01/04/21 at 16:59; Status DC Sodium Chloride 1,000 ml @ 400 mls/hr Q2H30M PRN IV PATENCY; Start 01/04/21 at 11:00; Stop 01/04/21 at 22:59; Status DC Info (PHARMACY MONITORING -- do not chart) 1 each PRN DAILY PRN MC SEE COMMENTS; Start 01/04/21 at 12:45; Status UNV Info (PHARMACY MONITORING -- do not chart) 1 each PRN DAILY PRN MC SEE COMMENTS; Start 01/04/21 at 12:45; Stop 01/05/21 at 15:39; Status DC Doxycycline Hyclate (Vibra-Tab) 100 mg BID PO Last administered on 01/07/21at 09:06; Start 01/05/21 at 09:00; Stop 01/07/21 at 11:03; Status DC Sodium Chloride 1,000 ml @ 1,000 mls/hr Q1H PRN IV hypotension; Start 01/05/21 at 11:45; Stop 01/05/21 at 17:44; Status DC Albumin Human 200 ml @ 200 mls/hr 1X PRN PRN IV Hypotension; Start 01/05/21 at 11:45; Stop 01/05/21 at 17:44; Status DC Sodium Chloride 1,000 ml @ 400 mls/hr Q2H30M PRN IV PATENCY; Start 01/05/21 at 11:45; Stop 01/05/21 at 23:44; Status DC Info (PHARMACY MONITORING -- do not chart) 1 each PRN DAILY PRN MC SEE COMMENTS; Start 01/05/21 at 11:45; Status UNV Info (PHARMACY MONITORING -- do not chart) 1 each PRN DAILY PRN MC SEE COMMENTS; Start 01/05/21 at 11:45 Amoxicillin/ Clavulanate Potassium (Augmentin 500/ 125mg) 1 tab DAILY PO Last administered on 01/07/21at 09:06; Start 01/06/21 at 09:00; Stop 01/07/21 at 11:03; Status DC Sodium Chloride 1,000 ml @ 1,000 mls/hr Q1H PRN IV hypotension; Start 01/07/21 at 10:15; Stop 01/07/21 at 16:14; Status DC Sodium Chloride 1,000 ml @ 400 mls/hr Q2H30M PRN IV PATENCY; Start 01/07/21 at 10:15; Stop 01/07/21 at 22:14; Status DC Info (PHARMACY MONITORING -- do not chart) 1 each PRN DAILY PRN MC SEE COMMENTS; Start 01/07/21 at 10:15; Status UNV Acetaminophen (Tylenol) 650 mg 1X PRN PRN PO PRE-TRANSFUSION Last administered on 01/08/21at 14:02; Start 01/08/21 at 11:45; Stop 01/09/21 at 11:44; Status DC Amoxicillin/ Clavulanate Potassium (Augmentin 500/ 125mg) 1 tab BID PO Last administered on 01/10/21at 09:07; Start 01/10/21 at 09:00 Doxycycline Hyclate (Vibra-Tab) 100 mg BID PO Last administered on 01/10/21at 09:07; Start 01/10/21 at 09:00 Metoclopramide HCl (Reglan Vial) 5 mg PRN Q6HRS PRN IVP NAUSEA/VOMITING- 2ND CHOICE; Start 01/10/21 at 09:00 Ondansetron HCl (Zofran Odt) 4 mg QIDACHS PRN PO NAUSEA/VOMITING; Start 01/10/21 at 11:15 Sodium Chloride 1,000 ml @ 1,000 mls/hr Q1H PRN IV hypotension; Start 01/10/21 at 15:30; Stop 01/10/21 at 21:29 Albumin Human 200 ml @ 200 mls/hr 1X PRN PRN IV Hypotension; Start 01/10/21 at 15:30; Stop 01/10/21 at 21:29 Diphenhydramine HCl (Benadryl) 25 mg 1X PRN PRN IV ITCHING; Start 01/10/21 at 15:30; Stop 01/11/21 at 15:29 Sodium Chloride 1,000 ml @ 400 mls/hr Q2H30M PRN IV PATENCY; Start 01/10/21 at 15:30; Stop 01/11/21 at 03:29 Info (PHARMACY MONITORING -- do not chart) 1 each PRN DAILY PRN MC SEE COMMENTS; Start 01/10/21 at 15:30; Status UNV Info (PHARMACY MONITORING -- do not chart) 1 each PRN DAILY PRN MC SEE COMMENTS; Start 01/10/21 at 15:30 Sodium Chloride 1,000 ml @ 1,000 mls/hr Q1H PRN IV hypotension; Start 01/10/21 at 16:15; Stop 01/10/21 at 22:14; Status UNV Albumin Human 200 ml @ 200 mls/hr 1X PRN PRN IV Hypotension; Start 01/10/21 at 16:15; Stop 01/10/21 at 22:14; Status UNV Diphenhydramine HCl (Benadryl) 25 mg 1X PRN PRN IV ITCHING; Start 01/10/21 at 16:15; Stop 01/11/21 at 16:14; Status UNV Sodium Chloride 1,000 ml @ 400 mls/hr Q2H30M PRN IV PATENCY; Start 01/10/21 at 16:15; Stop 01/11/21 at 04:14; Status UNV Info (PHARMACY MONITORING -- do not chart) 1 each PRN DAILY PRN MC SEE COMMENTS; Start 01/10/21 at 16:15; Status UNV Info (PHARMACY MONITORING -- do not chart) 1 each PRN DAILY PRN MC SEE COMMENTS; Start 01/10/21 at 16:15; Status UNV Active Scripts Active Lantus (Insulin Glargine,Hum.rec.anlog) 100 Unit/1 Ml Vial 15 Unit SQ QHS 30 Days Famotidine 20 Mg Tablet 20 Mg PO DAILY 30 Days Acetaminophen Supp (Acetaminophen) 650 Mg Supp.rect 650 Mg OK PRN Q4HRS PRN 30 Days Hydralazine Hcl 25 Mg Tablet 25 Mg PO TID 30 Days Reported Tylenol (Acetaminophen) 325 Mg Tablet 1-2 Tab PO QID Vitamin C (Ascorbic Acid) 500 Mg Capsule 500 Mg PO BID Senokot (Sennosides) 8.6 Mg Tablet 1 Tab PO BID PRN 20 Days Potassium Chloride 20 Meq Tablet.er 20 Meq PO DAILY Nystatin 15 Gm Powder 1 Daniela TP BID 7 Days apply to affected area(s) Lasix (Furosemide) 40 Mg Tablet 40 Mg PO BIDBFRMEAL Zoloft (Sertraline Hcl) 50 Mg Tablet 50 Mg PO DAILY Metoprolol Succinate ( Xl ) (Metoprolol Succinate) 25 Mg Tab.er.24h 25 Mg PO DAILY Eliquis (Apixaban) 5 Mg Tablet 2.5 Mg PO BID Slow Release Iron (Ferrous Sulfate) 160 Mg Tablet.er 160 Mg PO DAILY Buspirone Hcl 10 Mg Tablet 1 Tab PO PRN DAILY PRN Atorvastatin Calcium 40 Mg Tablet 40 Mg PO HS Vitals/I & O Vital Sign - Last 24 Hours 01/09/21 01/09/21 01/09/21 01/09/21 19:20 20:00 22:01 22:50 Temp 98.0 97.9 98.0 97.9 Pulse 60 60 59 Resp 20 20 B/P (MAP) 153/66 (95) 153/66 137/60 (85) Pulse Ox 94 95 O2 Delivery Room Air Room Air Room Air 01/10/21 01/10/21 01/10/21 01/10/21 03:15 07:30 07:45 08:11 Temp 98.8 97.8 98.8 97.8 Pulse 59 58 58 Resp 20 18 B/P (MAP) 158/69 (98) 148/64 (92) 148/64 Pulse Ox 93 95 O2 Delivery Room Air Room Air Room Air 01/10/21 01/10/21 01/10/21 01/10/21 08:11 10:18 13:29 14:50 Temp 97.5 98.5 97.5 98.5 Pulse 58 62 62 59 Resp 20 18 B/P (MAP) 148/64 160/70 (100) 160/70 121/48 (72) Pulse Ox 95 94 O2 Delivery Room Air Room Air Intake and Output 01/09/21 01/09/21 01/10/21 15:00 23:00 07:00 Intake Total 360 ml 300 ml 160 ml Output Total 50 ml Balance 360 ml 300 ml 110 ml Problem List Problems Medical Problems: (1) Anemia Status: Acute (2) CHF exacerbation Status: Acute Assessment Chronic illness anemia- with ESRD.hep b, await quantitative viral load-ordered last week, dialysis machine isolation as discussed with tech, cpm, emt intermediate anti-viral therapy if detectable viral load is present Justicifation of Admission Dx: Justifications for Admission: Justification of Admission Dx: Yes PHILLIP FLETCHER MD Jan 10, 2021 17:31
[2021-01-10] MEDS: ATORVASTATIN CALCIUM 40 MG TABLET. PO SCH (20:26)
[2021-01-10 20:40] VITALS: BP 119/58
[2021-01-10 23:40] VITALS: BP 124/55
[2021-01-11 03:10] VITALS: BP 131/56
[2021-01-11 07:30] VITALS: BP 126/60
[2021-01-11 07:33] LABS: BASO # 0.1 x10^3/uL (0.0-0.2); BASO % 1 % (0-3); EOS # 0.5 x10^3/uL (0.0-0.7); EOS % 5 % (0-3); HEMATOCRIT 23.9 % (39.0-53.0); HEMOGLOBIN 8.1 g/dL (13.0-17.5); LYMPH # 2.5 x10^3/uL (1.0-4.8); LYMPH % 24 % (24-48); MEAN CORPUSCULAR HEMOGLOBIN 29 pg (25-35); MEAN CORPUSCULAR HGB CONC 34 g/dL (31-37); MEAN CORPUSCULAR VOLUME 87 fL (79-100); MONO # 1.7 x10^3/uL (0.0-1.1); MONO % 16 % (0-9); NEUT # 5.8 x10^3/uL (1.8-7.7); NEUT % 55 % (31-73); PLATELET COUNT 64 x10^3/uL (140-400); RED BLOOD COUNT 2.75 x10^6/uL (4.30-5.70); RED CELL DISTRIBUTION WIDTH 17.7 % (11.5-14.5); WHITE BLOOD COUNT 10.6 x10^3/uL (4.0-11.0)
--- NOTE | 2021-01-11 07:51 | PDOC ---
Infectious Disease Note Subjective Subjective Patient is feeling good ready to go to rehab ROS ROS No nausea vomiting diarrhea chest pain shortness of breath Vital Sign Vital Signs Vital Signs Date Time Temp Pulse Resp B/P (MAP) Pulse Ox O2 Delivery O2 Flow Rate FiO2 01/11/21 07:30 98.1 60 18 126/60 (82) 94 Room Air 98.1 Physical Exam PHYSICAL EXAM GENERAL: Alert, oriented gentleman, not in any distress. HEENT: Both pupils are round and reacting. No conjunctival lesion. No lesion in the mouth. NECK: Supple. RT Tunneled HDC LUNGS: Clear. HEART: S1, S2 regular. Pacer site clean ABDOMEN: Soft, nontender. No organomegaly. Obeses EXTREMITIES: Edema present bilaterally, wound dressing not changed NEUROLOGIC: The patient is alert, awake, and appropriate. No focal neurologic deficit. Labs Lab Laboratory Tests Test 01/10/21 12:40 01/10/21 16:45 01/10/21 19:49 01/10/21 21:09 Glucose (Fingerstick) 170 mg/dL (70-99) 142 mg/dL (70-99) 136 mg/dL (70-99) 155 mg/dL (70-99) Test 01/11/21 05:55 01/11/21 07:34 White Blood Count 10.6 x10^3/uL (4.0-11.0) Red Blood Count 2.75 x10^6/uL (4.30-5.70) Hemoglobin 8.1 g/dL (13.0-17.5) Hematocrit 23.9 % (39.0-53.0) Mean Corpuscular Volume 87 fL (79-100) Mean Corpuscular Hemoglobin 29 pg (25-35) Mean Corpuscular Hemoglobin Concent 34 g/dL (31-37) Red Cell Distribution Width 17.7 % (11.5-14.5) Platelet Count 64 x10^3/uL (140-400) Neutrophils (%) (Auto) 55 % (31-73) Lymphocytes (%) (Auto) 24 % (24-48) Monocytes (%) (Auto) 16 % (0-9) Eosinophils (%) (Auto) 5 % (0-3) Basophils (%) (Auto) 1 % (0-3) Neutrophils # (Auto) 5.8 x10^3/uL (1.8-7.7) Lymphocytes # (Auto) 2.5 x10^3/uL (1.0-4.8) Monocytes # (Auto) 1.7 x10^3/uL (0.0-1.1) Eosinophils # (Auto) 0.5 x10^3/uL (0.0-0.7) Basophils # (Auto) 0.1 x10^3/uL (0.0-0.2) Glucose (Fingerstick) 118 mg/dL (70-99) Objective Assessment 1. Left calcaneal black eschar. MRI neg for osteo R heel wound - Cellulitis is better 12/30 s/p Left heel excisional debridement subcutaneous tissue and skin,,, further debridement on 01/10/2021 2. Peripheral arterial disease. 3. Left big toe ulcer. 4. Obesity. 5. Diabetes. 6. Hypertension. 7. Congestive heart failure. 8. Renal insufficiency. On HD 9. Sulfa allergy 10. Nausea 11. Thrombocytopenia 12. Hepatitis B surface antigen positive, hepatitis B surface antibody negative 13. Chronic anemia Plan Plan of Care will have him take augmentin and doxy for couple weeks off load Maintain aspiration precaution Wound /Vac care per wound team Discussed with nursing staff MIKE ROSA MD Jan 11, 2021 07:51
[2021-01-11 07:52] LABS: CALCIUM 8.3 mg/dL (8.5-10.1); CREATININE 3.5 mg/dL (0.7-1.3); GFR 17.3; POTASSIUM 3.9 mmol/L (3.5-5.1)
[2021-01-11] MEDS: ASPIRIN ENTERIC COATED 81 MG TABLET.DR. PO SCH (09:10)
[2021-01-11] MEDS: DOXYCYCLINE HYCLATE 100 MG TABLET PO SCH (09:10)
[2021-01-11] MEDS: SERTRALINE 50 MG TABLET. PO SCH (09:11)
[2021-01-11] MEDS: hydrALAZINE 25 MG TABLET PO SCH (09:11)
[2021-01-11] MEDS: FAMOTIDINE 20 MG TABLET. PO SCH (09:11)
[2021-01-11] MEDS: LACTOBACILLUS RHAMNOSUS GG 1 CAPSULE. PO SCH (09:11)
[2021-01-11] MEDS: AMOXICILLIN/K CLAV 500/125MG TABLET. PO SCH (09:11)
[2021-01-11] MEDS: FERROUS SULFATE 325 MG TABLET. PO SCH (09:11)
[2021-01-11] MEDS: ASCORBIC ACID 500 MG TABLET PO SCH (09:11)
[2021-01-11] MEDS: METOPROLOL SUCC 24HR ER 25 MG TAB.ER.24H. PO SCH (09:12)
[2021-01-11] MEDS: INSULIN LISPRO 300 UNITS/3 ML VIAL. SQ SCH ×2 (09:12→12:00)
[2021-01-11] MEDS: NYSTATIN TOPICAL POWDER 15GM BOTTLE. TP SCH (09:12)
--- NOTE | 2021-01-11 09:50 | PDOC ---
DATE OF SERVICE DATE: 01/11/21 TIME: 09:57 SUBJECTIVE ROS Denies any SOB, on room air. States feels good OBJECTIVE Vital Signs Vital Signs Date Time Temp Pulse Resp B/P (MAP) Pulse Ox O2 Delivery O2 Flow Rate FiO2 01/11/21 09:12 60 126/60 01/11/21 07:30 98.1 18 94 Room Air 98.1 I & 0 Intake and Output 01/11/21 06:53 Intake Total 560 ml Output Total 50 ml Balance 510 ml Intake Oral 560 ml Output Urine Total 50 ml # Bowel Movements 1 PHYSICAL EXAM Physical Exam General: NAD HEENT: Atraumatic, OM moist Neck supple Lungs: Clear to auscultation Heart: Bradycardic, ESM aortic) Abdomen: Soft, NT Extremities: Bilat LE edema improved Neuro: grossly normal Psych/Mental Status: Mood NL lowery + , No cva or SP tenderness Skin No rash DIAGNOSIS/ASSESSMENT Assessment & Plan New Onset ESRD- Cardiorenal ,Initiated on Dialysis 01/04 , MWF schedule as inpatient. 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 GI following . Pt reports he has been taking medicine for hep B thru [facility] and has given the list to the nursing on his admit day at [facility] and assumed he is getting it here as well . I didnt see it in his home med list in the chart . Please follow up- defer to primary and GI CKD stage 3B/ 4 - Follows with Dr. Roca at [facility] , baseline Cr per [facility] records prior to previous admission 1.8-2.0 but 2.3 to 2.5 since REBECCA recently in November 2020 Hx of Acute blood loss anemia secondary to GIB. s/p cauterization of bleeding antral ulcer by GI team and PRBC in November . Hgb this admission low as well - defer to GI Renal calculus - RK- Possible intrarenal stones. LK Possible intrarenal stones to include a 13 mm focus of increased echogenicity at the upper pole.No e/o obstruction reported . Pt denies any past history Worsening LE edema- Bilat LE and anasarca- Wt up compared to his recent admission . off Lasix gtt , currently on Lasix PO BID ,Cardiology managing Left heel wound with dry gangrene and 1st toe ulcer- s/p CO2 angiograph on 12/28 Acute on chronic diastolic CHF; Echo 07/25 with preserved LV systolic function Anemia with h/o GIB with cauterization of bleeding antral ulcer CAD; s/p PCI/RHEA to LAD in 2018. clinically stable, CP free. PAD s/p past orbital atherectomy/WORK STUDY STUDENT to right posterior tibial artery. COMMENT/RELEVANT DATA Meds Current Medications Medications (Trade) Dose Ordered Sig/Redd Start Time Stop Time Status Last Admin Dose Admin Acetaminophen (Tylenol) 650 mg 1X PRN PRN 01/08/21 11:45 01/09/21 11:44 DC 01/08/21 14:02 650 MG Albumin Human 200 ml @ 200 mls/hr 1X PRN PRN 01/10/21 16:15 01/10/21 22:14 UNV Amoxicillin/ Clavulanate Potassium (Augmentin 500/ 125mg) 1 tab BID 01/10/21 09:00 01/11/21 09:11 1 TAB Amoxicillin/ Clavulanate Potassium (Augmentin 875/ 125mg) 1 tab BID 12/25/20 09:00 12/31/20 08:43 DC 12/31/20 08:29 1 TAB Apixaban (Eliquis) 2.5 mg BID 12/20/20 22:00 12/21/20 13:36 DC 12/21/20 09:00 2.5 MG Ascorbic Acid (Vitamin C) 500 mg BID 12/20/20 22:00 01/11/21 09:11 500 MG Aspirin (Ecotrin) 81 mg DAILYWBKFT 01/01/21 08:00 01/11/21 09:10 81 MG Atorvastatin Calcium (Lipitor) 40 mg HS 12/20/20 22:00 01/10/21 20:26 40 MG Buspirone HCl (Buspar) 10 mg PRN DAILY PRN 12/20/20 21:45 01/05/21 00:44 10 MG Cefazolin Sodium/ Dextrose 50 ml @ 100 mls/hr 1X ONCE 01/04/21 11:00 01/04/21 11:29 DC 01/04/21 10:50 100 MLS/HR Dextrose (Dextrose 50%-Water Syringe) 12.5 gm PRN Q15MIN PRN 12/20/20 21:45 Diphenhydramine HCl (Benadryl) 25 mg 1X PRN PRN 01/10/21 16:15 01/11/21 16:14 UNV Docusate Sodium (Colace) 100 mg PRN DAILY PRN 12/20/20 21:45 Doxycycline Hyclate (Vibra-Tab) 100 mg BID 01/10/21 09:00 01/11/21 09:10 100 MG Famotidine (Pepcid) 20 mg DAILY 12/21/20 09:00 01/11/21 09:11 20 MG Fentanyl Citrate (Fentanyl 2ml Vial) 100 mcg 1X ONCE 01/04/21 11:00 01/04/21 11:01 DC 01/04/21 10:50 50 MCG Ferrous Sulfate (Feosol) 325 mg BIDWMEALS 12/24/20 17:00 01/11/21 09:11 325 MG Ferrous Sulfate (Iron Oral Solution) 300 mg BIDWMEALS 12/22/20 17:00 12/24/20 11:08 DC 12/24/20 08:54 300 MG Furosemide (Lasix) 40 mg BID94 12/26/20 10:30 12/30/20 11:38 DC 12/30/20 08:58 40 MG Furosemide 100 mg/ Sodium Chloride 100 ml @ 0 mls/hr CONT PRN 12/21/20 11:30 12/26/20 10:28 DC 12/26/20 10:06 10 MLS/HR Heparin Sodium (Porcine) (Heparin Sodium) 2,500 unit 1X ONCE 12/27/20 12:15 12/27/20 12:19 DC 12/27/20 13:08 5,500 UNIT Heparin Sodium/ Sodium Chloride (HEPARIN for ARTERIAL LINE FLUSH) 1,000 unit 1X ONCE 12/27/20 12:15 12/27/20 12:19 DC 12/27/20 13:04 1,000 UNIT Hydralazine HCl (Apresoline) 25 mg TID 12/21/20 09:00 01/11/21 09:11 25 MG Hydromorphone HCl (Dilaudid) 0.5 mg PRN Q10MIN PRN 12/30/20 06:00 12/31/20 05:59 DC Info (PHARMACY MONITORING -- do not chart) 1 each PRN DAILY PRN 01/10/21 16:15 UNV Insulin Glargine (Lantus Syringe) 15 unit QHS 12/20/20 22:00 01/03/21 13:14 DC 01/02/21 21:42 15 UNIT Insulin Human Lispro (HumaLOG) 0-7 UNITS TIDWMEALS 12/21/20 08:00 01/10/21 12:49 3 UNITS Iodixanol (Visipaque 320) 100 ml 1X ONCE 12/27/20 12:15 12/27/20 12:19 DC 12/27/20 13:04 30 ML Lactobacillus Rhamnosus (Culturelle) 1 cap BID 12/26/20 21:00 01/11/21 09:11 1 CAP Lidocaine HCl (Lidocaine 1% 20ml Vial) 20 ml STK-MED ONCE 12/30/20 07:50 12/30/20 19:07 DC Lidocaine HCl (Lidocaine Pf 2% Vial) 5 ml STK-MED ONCE 12/30/20 06:36 12/30/20 19:06 DC Lidocaine/ Epinephrine (LIDOCAINE 1%-EPI 1:100,000 Multi-Dose) 20 ml 1X ONCE 01/04/21 11:00 01/04/21 11:01 DC 01/04/21 10:51 14 ML Linezolid (Zyvox) 600 mg BID 12/25/20 09:00 01/02/21 09:10 DC 01/02/21 08:43 600 MG Linezolid/Dextrose 300 ml @ 300 mls/hr Q12HR 01/02/21 21:00 01/05/21 08:35 DC 01/04/21 21:27 300 MLS/HR Metoclopramide HCl (Reglan Vial) 5 mg PRN Q6HRS PRN 01/10/21 09:00 Metoprolol Succinate (Toprol Xl) 25 mg DAILY 12/21/20 09:00 01/11/21 09:12 25 MG Midazolam HCl (Versed) 2 mg 1X ONCE 01/04/21 11:00 01/04/21 11:01 DC 01/04/21 10:50 1 MG Morphine Sulfate (Morphine Sulfate) 1 mg PRN Q10MIN PRN 12/30/20 06:00 12/31/20 05:59 DC Nystatin (Nystop) 1 luna BID 12/20/20 22:00 01/11/21 09:12 1 LUNA Ondansetron HCl (Zofran Odt) 4 mg QIDACHS PRN 01/10/21 11:15 Ondansetron HCl (Zofran) 4 mg PRN Q6HRS PRN 12/20/20 21:45 01/10/21 09:07 4 MG Polyethylene Glycol (miraLAX PACKET) 17 gm PRN DAILY PRN 12/22/20 12:00 Potassium Chloride (Klor-Con) 40 meq DAILY 12/24/20 09:00 01/02/21 11:03 DC 01/01/21 08:47 40 MEQ Prochlorperazine Edisylate (Compazine) 5 mg PACU PRN PRN 12/30/20 06:00 12/31/20 05:59 DC Propofol (Diprivan) 200 mg STK-MED ONCE 12/30/20 07:56 12/30/20 19:08 DC Ringer's Solution 1,000 ml @ 30 mls/hr Q24H 12/30/20 06:00 12/30/20 17:59 DC 12/30/20 07:05 30 MLS/HR Sennosides (Senna) 17.2 mg PRN BID PRN 12/20/20 21:45 01/01/21 08:44 17.2 MG Sertraline HCl (Zoloft) 50 mg DAILY 12/21/20 09:00 01/11/21 09:11 50 MG Sodium Chloride 1,000 ml @ 400 mls/hr Q2H30M PRN 01/10/21 16:15 01/11/21 04:14 UNV Lab Laboratory Tests Test 01/10/21 12:40 01/10/21 16:45 01/10/21 19:49 01/10/21 21:09 Glucose (Fingerstick) 170 mg/dL (70-99) 142 mg/dL (70-99) 136 mg/dL (70-99) 155 mg/dL (70-99) Test 01/11/21 05:55 01/11/21 07:34 White Blood Count 10.6 x10^3/uL (4.0-11.0) Red Blood Count 2.75 x10^6/uL (4.30-5.70) Hemoglobin 8.1 g/dL (13.0-17.5) Hematocrit 23.9 % (39.0-53.0) Mean Corpuscular Volume 87 fL (79-100) Mean Corpuscular Hemoglobin 29 pg (25-35) Mean Corpuscular Hemoglobin Concent 34 g/dL (31-37) Red Cell Distribution Width 17.7 % (11.5-14.5) Platelet Count 64 x10^3/uL (140-400) Neutrophils (%) (Auto) 55 % (31-73) Lymphocytes (%) (Auto) 24 % (24-48) Monocytes (%) (Auto) 16 % (0-9) Eosinophils (%) (Auto) 5 % (0-3) Basophils (%) (Auto) 1 % (0-3) Neutrophils # (Auto) 5.8 x10^3/uL (1.8-7.7) Lymphocytes # (Auto) 2.5 x10^3/uL (1.0-4.8) Monocytes # (Auto) 1.7 x10^3/uL (0.0-1.1) Eosinophils # (Auto) 0.5 x10^3/uL (0.0-0.7) Basophils # (Auto) 0.1 x10^3/uL (0.0-0.2) Sodium Level 141 mmol/L (136-145) Potassium Level 3.9 mmol/L (3.5-5.1) Chloride Level 104 mmol/L (98-107) Carbon Dioxide Level 29 mmol/L (21-32) Anion Gap 8 (6-14) Blood Urea Nitrogen 27 mg/dL (8-26) Creatinine 3.5 mg/dL (0.7-1.3) Estimated GFR (Cockcroft-Gault) 17.3 Glucose Level 117 mg/dL (70-99) Calcium Level 8.3 mg/dL (8.5-10.1) Glucose (Fingerstick) 118 mg/dL (70-99) Results All relevant outside records, renal labs, imaging studies, telemetry/EKG's were reviewed. Justicifation of Admission Dx: Justifications for Admission: Justification of Admission Dx: Yes BEATRIZ IBARRA MD Jan 11, 2021 09:50
[2021-01-11 11:30] VITALS: BP 128/59
--- NOTE | 2021-01-11 12:07 | PDOC ---
[employer] PROGRESS NOTE Date of Service DOS: DATE: 01/11/21 TIME: 12:07 Chief Complaint Chief Complaint Acute volume overload Acute on chronic CHF exacerbation Hypokalemia History of chronic kidney disease Normocytic anemia, possible chronic GI blood loss with EGD showing antral gastric ulcer Left lower extremity wound ulcer with dry gangrene Morbid obesity, OHS, suspect ROBB Severe protein malnutrition History of diabetes mellitus type 2 History of peripheral vascular disease History of atrial fibrillation History of bradycardia status post pacemaker placement History of peripheral vascular disease Hypertension Dyslipidemia Thrombocytopenia, concerning for HITpending HIT antibody Strict I's and O's Echocardiogram from 07/16/2020 - normal left ventricular systolic function, EF 55 to 60%. No regional wall motion abnormalities noted, valvular aortic stenosis. Moderate tricuspid regurgitation with PAP 68 mmHg. Nephrology consult Cardiology consult Trend hemoglobin if less than 7 then transfuse 1 unit Eliquis for DVT prophylaxis Pepcid GI prophylaxis ADA diet Full code Discussed with RN and SW Disposition inpatient management as above Surrogate decision maker is Phuong Mathis History of Present Illness History of Present Illness Mr Nunn is a 75 year old male who was sent here from [facility] for evaluation due to bilateral lower extremity swelling, worsening renal function. He has history of CHF, history of chronic renal failure. 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 Patient denies any chest pain, denies any cough or fever. Patient does have trouble breathing with exertion. Patient says they told him to come here to be admitted so they can do colonoscopy because he has been anemic as well. Patient denies any rectal bleeding. His weight today is 147 kg Upon chart review patient was seen in November 04 09/12/2020 for GI bleed.. Eliquis was actually restarted on 11/09/2020. And also had a pacemaker placed on 11/09/2020 and tolerated procedure well. Patient also does follow-up with Dr. Chau with nephrology and his baseline creatinine appears to be between 1.8-2.0. He had a long complicated hospital stay with progression to ESRD initiated on dialysis wound VAC placed on left lower extremity. Required transfusion and IVC filter placement and is on Eliquis. No overnight events. Wound VAC changed changed to p.o. antibiotics. Has dialysis chair time Sunday at [facility] 10 AM. Plan to discharge to SNF today. Consults: Nephrology, Vascular surgery, cardiology, GI, and ID 01/10: No acute events overnight. Having some nausea today. Having little bit of foot pain. Worried about his outpatient dialysis treatments. 01/09: No acute events overnight. No concerns from nursing. Patient seen and examined at this time. Hemoglobin stable after 1 unit PRBC transfusion yesterday. Platelets increased from yesterday from 27 to 36. 01/08: No acute events overnight. No concerns per nursing. Patient seen and examined bedside and no complaints at this time. Hemoglobin below recommended threshold for ESRD and CAD patients and platelets low, HIT antibody pending 01/07: No acute events overnight. No concerns from nursing. We will continue to trend platelets. Pending HIT antibody. Will anticipate discharge if platelets remain stable. Patient's chart, labs, images were reviewed and discussed with RN 01/06: No acute events overnight. Patient is tolerating hemodialysis well. Platelets decreased again down to 45,000 from 56,000. On admission it was greater than 120,000. Pending hematology evaluation. Patient's chart, labs, images were reviewed and discussed with RN 01/05: No acute events overnight. Permacath placed yesterday and patient tolera john procedure well and received hemodialysis. Hemodialysis again today. Improved creatinine to 3.5. No other concerns from nursing. Patient's chart, labs, images were reviewed and discussed with RN 01/04: No acute events overnight. Patient seen and examined bedside. Creatinine increased to 4.0. No concerns from nursing at this time. Patient's chart, labs, images were reviewed and discussed with RN. 01/03: No acute events overnight. Patient seen and examined bedside. Creatinine increased to 3.7. Pending further nephrology recommendations for possible HD. No urine output per nursing. Patient's chart, labs, images were reviewed and discussed with RN 01/02: Afebrile, no acute events overnight. Kidney function slightly worse today despite gentle hydration, CR 3.5 (eGFR 17.3). Per nephrology, if no improvement in renal function may need to initiate HD. Continue IV fluids. Continue oral antibiotics for left calcaneal heel cellulitis. 01/01: Afebrile, currently breathing on room air. Creatinine increased to 3.4 today, despite gentle hydration. Will need to discuss with nephrology. Will continue gentle hydration and close monitoring of kidney function. Echocardiogram from 07/16/2020 showed normal left ventricular systolic function, ejection fraction 55-60%; no regional wall motion abnormality, mildmoderate valvular aortic stenosis, mild much regurgitation, moderate tricuspid reg urgitation with PAP 68 mmHg. Continue p.o. Augmentin and Zyvox for left calcaneal heel cellulitis. 12/31: Afebrile, no acute events overnight. Wound care is addressing his heels this morning. Plan to have wound VAC placed prior to discharge. BUN 78, cre atinine 3.1 today. Due to concerns of worsening renal function and concerns for lack of appropriate follow-up at [facility], will hold discharge today until kidney function can be addressed by nephrology, likely with gentle hydration and close monitoring of kidney function. These methods are being taken to attempt to avoid the need for renal replacement therapy in the future. Discussed with patient and , and they are agreeable to this plan. 12/30: Afebrile, no new complaints today. Had left heel ulcer debridement today. I believe plan is to have wound VAC placed tomorrow. Continue antibiotics, per ID. He will need retirement once stable to discharge. Continue p.o. Lasix; continue gentle hydration and monitor kidney function. Creatinine 2.8, eGFR 22.3. 12/29: Afebrile, breathing on room air. Plan is for elective debridement of the left heel ulcer tomorrow. Continue Augmentin and Zyvox, per ID. 12/28: Afebrile, denies shortness of breath. Abdominal aortogram yesterday showed no significant aortoiliac disease bilaterally, isolated left posterior tibial artery occlusion with adequate two-vessel runoff to the distal foot and calcaneal area. Overall the patient is felt to have adequate runoff to the foot for further intervention with debridement of the left heel ulcer. I believe the plan is for elective debridement of left heel ulcer tomorrow. Discussed with RN. 12/27: Afebrile, currently on room air. Off Lasix drip, currently Lasix 40 mg twice daily. Net positive fluid balance overnight, 510mL. Continue p.o. Augmentin and Zyvox. Aortogram pending today. 12/26: No acute events overnight. Patient seen and examined bedside. -2.5 L output in the urine in the past 24 hours. No complaints from the patient. Pending aortogram with LLE runoff with vascular surgery. Follow-up 12/24: Patient was seen and examined in room today. Awaiting plan from vascular/cardio on possible PCI/angio of LLE. Case discussed with RN and case management. Chart and specialist notes reviewed. 12/23: No acute events overnight. Patient seen and examined bedside. Pedal edema has improved total of -2.3 L of urine output. Low potassium today will re place IV and p.o. Creatinine has also improved. MRI no osteomyelitis 12/22: No acute events overnight patient seen and examined bedside. No significant weight loss with Lasix drip. Will defer further fluid offloading with cardiology. Pending MRI and further vascular surgery recommendations for lower extremity foot ulcer. 12/21: No acute events overnight. Patient has adequate urine output and feels less fluid overload. Documented -580 cc. Patient's chart, labs, images were reviewed and discussed with RN Vitals/I&O Vitals/I&O: Vital Signs Date Time Temp Pulse Resp B/P (MAP) Pulse Ox O2 Delivery O2 Flow Rate FiO2 01/11/21 11:30 98.4 59 18 128/59 (82) 95 Room Air 98.4 I & O 01/10/21 01/10/21 01/11/21 15:00 23:00 07:00 Intake Total 560 ml Output Total 50 ml Balance 510 ml Physical Exam Physical Exam: GENERAL: Alert, oriented gentleman, not in any distress. HEENT: Both pupils are round and reacting. No conjunctival lesion. No lesion in the mouth. NECK: Supple. RT Tunneled HDC LUNGS: Clear. HEART: S1, S2 regular. Pacer site clean ABDOMEN: Soft, nontender. No organomegaly. Obeses EXTREMITIES: Edema present bilaterally, wound dressing not changed NEUROLOGIC: The patient is alert, awake, and appropriate. No focal neurologic deficit. General: Alert, Cooperative, No acute distress Heart: Other (Irr irr with soft systolic murmur) Lungs: Clear, Other Abdomen: Soft, No tenderness, No hepatosplenomegaly Extremities: No cyanosis, Other (2 + edema bilaterally) Skin: Other (Dressing present Right heel and Curlex wrapped left ankle foot. ) Labs Labs: Laboratory Tests Test 01/10/21 12:40 01/10/21 16:45 01/10/21 19:49 01/10/21 21:09 Glucose (Fingerstick) 170 mg/dL (70-99) 142 mg/dL (70-99) 136 mg/dL (70-99) 155 mg/dL (70-99) Test 01/11/21 05:55 01/11/21 07:34 01/11/21 11:35 White Blood Count 10.6 x10^3/uL (4.0-11.0) Red Blood Count 2.75 x10^6/uL (4.30-5.70) Hemoglobin 8.1 g/dL (13.0-17.5) Hematocrit 23.9 % (39.0-53.0) Mean Corpuscular Volume 87 fL (79-100) Mean Corpuscular Hemoglobin 29 pg (25-35) Mean Corpuscular Hemoglobin Concent 34 g/dL (31-37) Red Cell Distribution Width 17.7 % (11.5-14.5) Platelet Count 64 x10^3/uL (140-400) Neutrophils (%) (Auto) 55 % (31-73) Lymphocytes (%) (Auto) 24 % (24-48) Monocytes (%) (Auto) 16 % (0-9) Eosinophils (%) (Auto) 5 % (0-3) Basophils (%) (Auto) 1 % (0-3) Neutrophils # (Auto) 5.8 x10^3/uL (1.8-7.7) Lymphocytes # (Auto) 2.5 x10^3/uL (1.0-4.8) Monocytes # (Auto) 1.7 x10^3/uL (0.0-1.1) Eosinophils # (Auto) 0.5 x10^3/uL (0.0-0.7) Basophils # (Auto) 0.1 x10^3/uL (0.0-0.2) Sodium Level 141 mmol/L (136-145) Potassium Level 3.9 mmol/L (3.5-5.1) Chloride Level 104 mmol/L (98-107) Carbon Dioxide Level 29 mmol/L (21-32) Anion Gap 8 (6-14) Blood Urea Nitrogen 27 mg/dL (8-26) Creatinine 3.5 mg/dL (0.7-1.3) Estimated GFR (Cockcroft-Gault) 17.3 Glucose Level 117 mg/dL (70-99) Calcium Level 8.3 mg/dL (8.5-10.1) Glucose (Fingerstick) 118 mg/dL (70-99) 131 mg/dL (70-99) Assessment and Plan Assessmemt and Plan Problems Medical Problems: (1) Anemia Status: Acute (2) CHF exacerbation Status: Acute Comment Review of Relevant I have reviewed the following items mara (where applicable) has been applied. Justifications for Admission Other Justification CHF exacerbation JAKE PATTON MD Jan 11, 2021 12:07
[2021-01-11] MEDS ORDERED: DOXY100T PO (12:23)
[2021-01-11] MEDS ORDERED: LACT1CAP19 PO (12:23)
[2021-01-11] MEDS ORDERED: OMEP-203 PO (12:23)
[2021-01-11] MEDS ORDERED: ASPI-886 PO (12:23)
[2021-01-11] MEDS ORDERED: AMOX1TAB10 PO (12:23)
--- NOTE | 2021-01-11 12:25 | SNU/HH DC ---
DISCHARGE ORDERS DISCHARGE INFORMATION: DISCHARGE DATE: Jan 11, 2021 FINAL DIAGNOSIS Problems Medical Problems: (1) Anemia Status: Acute (2) CHF exacerbation Status: Acute CONDITION ON DISCHARGE: Stable CODE STATUS: Code Status: DNR/DNI ALF: SNF STAY <30 DAYS: Yes POST DISCHARGE ORDERS: ACTIVITY ORDERS: Activity as tolerated WEIGHT BEARING STATUS: As tolerated DIET AFTER DISCHARGE: ADA WOUND/INCISION CARE: Keep wound elevated, Other, see below (Wound vac q3 days) CHECKS AFTER DISCHARGE: CHECKS AFTER DISCHARGE: Check blood press - daily FOLLOW-UP: LAB ORDERS FOR FOLLOW-UP: RENAL PANEL IN 3 DAYS TREATMENT/EQUIPMENT ORDERS: ADAPTIVE EQUIPMENT NEEDED: Front wheeled walker RESPIRATORY EQUIPMENT NEEDED: Oxygen Physical Therapy For: Evalulation/Treatment Occupational Therapy For: Evaluation/Treatment Speech Language Pathology For: Evaluation/Treatment DISCHARGE MEDICATIONS: Home Meds Active Scripts Omeprazole Magnesium (OMEPRAZOLE MAGNESIUM) 20 Mg Capsule., 1 CAP PO DAILY for GERD for 30 Days, #30 CAP 0 Refills Prov:JAKE PATTON MD 01/11/21 Lactobacillus Rhamnosus Gg (CULTURELLE) 1 Each Cap.sprink, 1 CAP PO BID for Cellulitis for 14 Days, #28 CAP Prov:JAKE PATTON MD 01/11/21 Aspirin (ASPIRIN EC) 81 Mg Tablet., 81 MG PO DAILYWBKFT for CAD for 30 Days, #30 TAB.SR 3 Refills Prov:JAKE PATTON MD 01/11/21 Doxycycline Hyclate (DOXYCYCLINE HYCLATE) 100 Mg Tablet, 100 MG PO BID for Cellulitis for 14 Days, #28 TAB Prov:JAKE PATTON MD 01/11/21 Amoxicillin/Potassium Clav (AMOX TR-K CLV 500-125 MG TAB) 1 Each Tablet, 1 TAB PO DAILY for Cellulitis for 14 Days, #14 TAB Prov:JAKE PATTON MD 01/11/21 Insulin Glargine,Hum.rec.anlog (LANTUS) 100 Unit/1 Ml Vial, 15 UNIT SQ QHS for DIABETES for 30 Days, #2 EACH Prov:SURY PATTERSON MD 11/10/20 Acetaminophen (ACETAMINOPHEN SUPP) 650 Mg Supp.rect, 650 MG VA PRN Q4HRS PRN for TEMP OVER 100.4F OR MILD PAIN for 30 Days, #20 SUPP.RECT Prov:SURY PATTERSON MD 11/10/20 Hydralazine Hcl (HYDRALAZINE HCL) 25 Mg Tablet, 25 MG PO TID for BLOOD PRESSURE for 30 Days, #90 TAB Prov:SURY PATTERSON MD 11/10/20 Reported Medications Ascorbic Acid (Vitamin C) 500 Mg Capsule, 500 MG PO BID for supplement, CAP 12/20/20 Sennosides (SENOKOT) 8.6 Mg Tablet, 1 TAB PO BID PRN for CONSTIPATION for 20 Days, #40 TAB 0 Refills 12/20/20 Nystatin (NYSTATIN) 15 Gm Powder, 1 CLARKE TP BID for yeast for 7 Days, #1 BOTTLE 0 Refills apply to affected area(s) 12/20/20 Sertraline Hcl (ZOLOFT) 50 Mg Tablet, 50 MG PO DAILY for ANTI-DEPRESSANT, TAB 0 Refills 12/20/20 Metoprolol Succinate (METOPROLOL SUCCINATE ( XL )) 25 Mg Tab.er.24h, 25 MG PO DAILY for htn, #30 TAB 0 Refills 12/20/20 Apixaban (ELIQUIS) 5 Mg Tablet, 2.5 MG PO BID for afib, TAB 11/04/20 Ferrous Sulfate (SLOW RELEASE IRON) 160 Mg Tablet.er, 160 MG PO DAILY for supplement/anemia, TAB.SR 11/04/20 Buspirone Hcl (BUSPIRONE HCL) 10 Mg Tablet, 1 TAB PO PRN DAILY PRN for ANXIETY / AGITATION, #60 TAB 1 Refill 04/06/19 Atorvastatin Calcium (ATORVASTATIN CALCIUM) 40 Mg Tablet, 40 MG PO HS 11/29/13 Discontinued Reported Medications Acetaminophen (TYLENOL) 325 Mg Tablet, 1-2 TAB PO QID for pain, #60 TAB 2 Refills 12/20/20 Potassium Chloride (Potassium Chloride) 20 Meq Tablet.er, 20 MEQ PO DAILY for supplement, TAB.SR 12/20/20 Furosemide (LASIX) 40 Mg Tablet, 40 MG PO BIDBFRMEAL for diuretic, TAB 12/20/20 Discontinued Scripts Famotidine (FAMOTIDINE) 20 Mg Tablet, 20 MG PO DAILY for GERD for 30 Days, #30 TAB Prov:SURY PATTERSON MD 11/10/20 JAKE PATTON MD Jan 11, 2021 12:25
--- NOTE | 2021-01-11 12:28 | NUR ---
SS following up with discharge planning. SS reviewed pt chart and discussed with pt RN. Pt is currently on room air. COVID19 negative. Pt has confirmed outpatient dialysis chair time at [facility], ; fax [phone], Sunday, Sunday, and Sunday at 1000. Wound vac arranged. Pt accepted at [facility], ; fax [phone]. Discharge orders received and phoned and faxed to [facility]. Pt will discharge today and go to [facility] at 1500 via [facility] transport, [id number]. Pt, pt's RN, and pt's family notified.
--- NOTE | 2021-01-11 12:35 | PDOC3 ---
Discharge Summary Visit Information Date of Admission: December 20, 2020 Date of Discharge: Jan 11, 2021 Final Diagnosis Problems Medical Problems: (1) Anemia Status: Acute (2) CHF exacerbation Status: Acute Brief Hospital Course Allergies Allergies Coded Allergies Type Severity Reaction Last Updated Verified Sulfa (Sulfonamide Antibiotics) Adverse Reaction Intermediate Nausea and Vomiting 12/21/20 Yes Vital Signs Vital Signs Date Time Temp Pulse Resp B/P (MAP) Pulse Ox O2 Delivery O2 Flow Rate FiO2 01/11/21 11:30 98.4 59 18 128/59 (82) 95 Room Air 98.4 Lab Results Laboratory Tests Test 01/09/21 16:56 01/09/21 21:12 01/10/21 07:47 01/10/21 12:40 Glucose (Fingerstick) 171 mg/dL (70-99) 140 mg/dL (70-99) 110 mg/dL (70-99) 170 mg/dL (70-99) Test 01/10/21 16:45 01/10/21 19:49 01/10/21 21:09 01/11/21 05:55 Glucose (Fingerstick) 142 mg/dL (70-99) 136 mg/dL (70-99) 155 mg/dL (70-99) White Blood Count 10.6 x10^3/uL (4.0-11.0) Red Blood Count 2.75 x10^6/uL (4.30-5.70) Hemoglobin 8.1 g/dL (13.0-17.5) Hematocrit 23.9 % (39.0-53.0) Mean Corpuscular Volume 87 fL (79-100) Mean Corpuscular Hemoglobin 29 pg (25-35) Mean Corpuscular Hemoglobin Concent 34 g/dL (31-37) Red Cell Distribution Width 17.7 % (11.5-14.5) Platelet Count 64 x10^3/uL (140-400) Neutrophils (%) (Auto) 55 % (31-73) Lymphocytes (%) (Auto) 24 % (24-48) Monocytes (%) (Auto) 16 % (0-9) Eosinophils (%) (Auto) 5 % (0-3) Basophils (%) (Auto) 1 % (0-3) Neutrophils # (Auto) 5.8 x10^3/uL (1.8-7.7) Lymphocytes # (Auto) 2.5 x10^3/uL (1.0-4.8) Monocytes # (Auto) 1.7 x10^3/uL (0.0-1.1) Eosinophils # (Auto) 0.5 x10^3/uL (0.0-0.7) Basophils # (Auto) 0.1 x10^3/uL (0.0-0.2) Sodium Level 141 mmol/L (136-145) Potassium Level 3.9 mmol/L (3.5-5.1) Chloride Level 104 mmol/L (98-107) Carbon Dioxide Level 29 mmol/L (21-32) Anion Gap 8 (6-14) Blood Urea Nitrogen 27 mg/dL (8-26) Creatinine 3.5 mg/dL (0.7-1.3) Estimated GFR (Cockcroft-Gault) 17.3 Glucose Level 117 mg/dL (70-99) Calcium Level 8.3 mg/dL (8.5-10.1) Test 01/11/21 07:34 01/11/21 11:35 Glucose (Fingerstick) 118 mg/dL (70-99) 131 mg/dL (70-99) Laboratory Tests Test 01/10/21 12:40 01/10/21 16:45 01/10/21 19:49 01/10/21 21:09 Glucose (Fingerstick) 170 mg/dL (70-99) 142 mg/dL (70-99) 136 mg/dL (70-99) 155 mg/dL (70-99) Test 01/11/21 05:55 01/11/21 07:34 01/11/21 11:35 White Blood Count 10.6 x10^3/uL (4.0-11.0) Red Blood Count 2.75 x10^6/uL (4.30-5.70) Hemoglobin 8.1 g/dL (13.0-17.5) Hematocrit 23.9 % (39.0-53.0) Mean Corpuscular Volume 87 fL (79-100) Mean Corpuscular Hemoglobin 29 pg (25-35) Mean Corpuscular Hemoglobin Concent 34 g/dL (31-37) Red Cell Distribution Width 17.7 % (11.5-14.5) Platelet Count 64 x10^3/uL (140-400) Neutrophils (%) (Auto) 55 % (31-73) Lymphocytes (%) (Auto) 24 % (24-48) Monocytes (%) (Auto) 16 % (0-9) Eosinophils (%) (Auto) 5 % (0-3) Basophils (%) (Auto) 1 % (0-3) Neutrophils # (Auto) 5.8 x10^3/uL (1.8-7.7) Lymphocytes # (Auto) 2.5 x10^3/uL (1.0-4.8) Monocytes # (Auto) 1.7 x10^3/uL (0.0-1.1) Eosinophils # (Auto) 0.5 x10^3/uL (0.0-0.7) Basophils # (Auto) 0.1 x10^3/uL (0.0-0.2) Sodium Level 141 mmol/L (136-145) Potassium Level 3.9 mmol/L (3.5-5.1) Chloride Level 104 mmol/L (98-107) Carbon Dioxide Level 29 mmol/L (21-32) Anion Gap 8 (6-14) Blood Urea Nitrogen 27 mg/dL (8-26) Creatinine 3.5 mg/dL (0.7-1.3) Estimated GFR (Cockcroft-Gault) 17.3 Glucose Level 117 mg/dL (70-99) Calcium Level 8.3 mg/dL (8.5-10.1) Glucose (Fingerstick) 118 mg/dL (70-99) 131 mg/dL (70-99) Brief Hospital Course Mr Nunn is a 75 year old male who was sent here from [facility] for evaluation due to bilateral lower extremity swelling, worsening renal function. He has history of CHF, history of chronic renal failure. Patient was sent here by the [facility] SPECIALIST there today for evaluation of bilateral lower extremity swelling and increased renal function test. Patient denies any chest pain, denies any cough or fever. Patient does have trouble breathing with exertion. Patient says they told him to come here to be admitted so they can do colonoscopy because he has been anemic as well. Patient denies any rectal bleeding. His weight today is 147 kg Upon chart review patient was seen in November 04 09/12/2020 for GI bleed.. Eliquis was actually restarted on 11/09/2020. And also had a pacemaker placed on 11/09/2020 and tolerated procedure well. Patient also does follow-up with Dr. Chau with nephrology and his baseline creatinine appears to be between 1.8-2.0. He had a long complicated hospital stay with progression to ESRD initiated on dialysis wound VAC placed on left lower extremity. Required transfusion and IVC filter placement and is on Eliquis. No overnight events. Wound VAC changed changed to p.o. antibiotics. Has dialysis chair time Sunday at [facility] 10 AM. Plan to discharge to SNF today. Consults: Nephrology, Vascular surgery, cardiology, GI, and ID 01/10: No acute events overnight. Having some nausea today. Having little bit of foot pain. Worried about his outpatient dialysis treatments. 01/09: No acute events overnight. No concerns from nursing. Patient seen and examined at this time. Hemoglobin stable after 1 unit PRBC transfusion yesterday. Platelets increased from yesterday from 27 to 36. 01/08: No acute events overnight. No concerns per nursing. Patient seen and examined bedside and no complaints at this time. Hemoglobin below recommended threshold for ESRD and CAD patients and platelets low, HIT antibody pending 01/07: No acute events overnight. No concerns from nursing. We will continue to trend platelets. Pending HIT antibody. Will anticipate discharge if platelets remain stable. Patient's chart, labs, images were reviewed and discussed with RN 01/06: No acute events overnight. Patient is tolerating hemodialysis well. Platelets decreased again down to 45,000 from 56,000. On admission it was greater than 120,000. Pending hematology evaluation. Patient's chart, labs, images were reviewed and discussed with RN /: No acute events overnight. Permacath placed yesterday and patient tolerate d procedure well and received hemodialysis. Hemodialysis again today. Improved creatinine to 3.5. No other concerns from nursing. Patient's chart, labs, images were reviewed and discussed with RN 01/04: No acute events overnight. Patient seen and examined bedside. Creatinine increased to 4.0. No concerns from nursing at this time. Patient's chart, labs, images were reviewed and discussed with RN. 01/03: No acute events overnight. Patient seen and examined bedside. Creatinine increased to 3.7. Pending further nephrology recommendations for possible HD. No urine output per nursing. Patient's chart, labs, images were reviewed and discussed with RN 01/02: Afebrile, no acute events overnight. Kidney function slightly worse today despite gentle hydration, CR 3.5 (eGFR 17.3). Per nephrology, if no improvement in renal function may need to initiate HD. Continue IV fluids. Continue oral antibiotics for left calcaneal heel cellulitis. 01/01: Afebrile, currently breathing on room air. Creatinine increased to 3.4 today, despite gentle hydration. Will need to discuss with nephrology. Will continue gentle hydration and close monitoring of kidney function. Echocardiogram from 07/16/2020 showed normal left ventricular systolic function, ejection fraction 55-60%; no regional wall motion abnormality, mildmoderate valvular aortic stenosis, mild much regurgitation, moderate tricuspid regur gitation with PAP 68 mmHg. Continue p.o. Augmentin and Zyvox for left calcaneal heel cellulitis. 12/31: Afebrile, no acute events overnight. Wound care is addressing his heels this morning. Plan to have wound VAC placed prior to discharge. BUN 78, creat inine 3.1 today. Due to concerns of worsening renal function and concerns for lack of appropriate follow-up at [facility], will hold discharge today until kidney function can be addressed by nephrology, likely with gentle hydration and close monitoring of kidney function. These methods are being taken to attempt to avoid the need for renal replacement therapy in the future. Discussed with patient and , and they are agreeable to this plan. 12/30: Afebrile, no new complaints today. Had left heel ulcer debridement today. I believe plan is to have wound VAC placed tomorrow. Continue antibiotics, per ID. He will need snf once stable to discharge. Continue p.o. Lasix; continue gentle hydration and monitor kidney function. Creatinine 2.8, eGFR 22.3. 12/29: Afebrile, breathing on room air. Plan is for elective debridement of the left heel ulcer tomorrow. Continue Augmentin and Zyvox, per ID. 12/28: Afebrile, denies shortness of breath. Abdominal aortogram yesterday showed no significant aortoiliac disease bilaterally, isolated left posterior tibial artery occlusion with adequate two-vessel runoff to the distal foot and calcaneal area. Overall the patient is felt to have adequate runoff to the foot for further intervention with debridement of the left heel ulcer. I believe the plan is for elective debridement of left heel ulcer tomorrow. Discussed with RN. 12/27: Afebrile, currently on room air. Off Lasix drip, currently Lasix 40 mg twice daily. Net positive fluid balance overnight, 510mL. Continue p.o. Augmentin and Zyvox. Aortogram pending today. 12/26: No acute events overnight. Patient seen and examined bedside. -2.5 L output in the urine in the past 24 hours. No complaints from the patient. Pending aortogram with LLE runoff with vascular surgery. Follow-up 12/24: Patient was seen and examined in room today. Awaiting plan from vascular/cardio on possible PCI/angio of LLE. Case discussed with RN and case management. Chart and specialist notes reviewed. 12/23: No acute events overnight. Patient seen and examined bedside. Pedal edema has improved total of -2.3 L of urine output. Low potassium today will replace IV and p.o. Creatinine has also improved. MRI no osteomyelitis 12/22: No acute events overnight patient seen and examined bedside. No significant weight loss with Lasix drip. Will defer further fluid offloading with cardiology. Pending MRI and further vascular surgery recommendations for lower extremity foot ulcer. 12/21: No acute events overnight. Patient has adequate urine output and feels less fluid overload. Documented -580 cc. Patient's chart, labs, images were reviewed and discussed with RN Problem list: Acute volume overload Acute on chronic CHF exacerbation Hypokalemia History of chronic kidney disease Normocytic anemia, possible chronic GI blood loss with EGD showing antral gastric ulcer Left lower extremity wound ulcer with dry gangrene Morbid obesity, OHS, suspect ROBB Severe protein malnutrition History of diabetes mellitus type 2 History of peripheral vascular disease History of atrial fibrillation History of bradycardia status post pacemaker placement History of peripheral vascular disease Hypertension Dyslipidemia Thrombocytopenia, concerning for HITpending HIT antibody Eliquis for DVT prophylaxis ADA diet Full code Surrogate decision maker is Phuong Mathis Greater than 30 minutes spent on d/c to SNF Discharge Information Condition at Discharge: Improved Follow Up: Weeks (1) Disposition/Orders: D/C to Another Facility ([facility]) Scheduled Amoxicillin/Potassium Clav (Amox Tr-K Clv 500-125 Mg Tab) 1 Each Tablet, 1 TAB PO DAILY for Cellulitis for 14 Days, #14 Prescribed by: JAKE PATTON MD on 01/11/21 1223 Apixaban (Eliquis) 5 Mg Tablet, 2.5 MG PO BID for afib, (Reported) Entered as Reported by: EUSEBIO BARAHONA on 11/04/202347 Last Action: Continued on 12/20/202139 by KANNAN NELSON MD Ascorbic Acid (Vitamin C) 500 Mg Capsule, 500 MG PO BID for supplement, (Reported) Entered as Reported by: Micki Tarango on 12/20/202130 Last Action: Converted on 12/20/202139 by KANNAN NELSON MD Aspirin (Aspirin Ec) 81 Mg Tablet.dr, 81 MG PO DAILYWBKFT for CAD for 30 Days, #30 Ref 3 Prescribed by: JAKE PATTON MD on 01/11/21 1223 Atorvastatin Calcium (Atorvastatin Calcium) 40 Mg Tablet, 40 MG PO HS, (Reported) Entered as Reported by: HERNANDEZ MALCOLM on 11/29/13 1203 Last Action: Continued on 12/20/202139 by KANNAN NELSON MD Doxycycline Hyclate (Doxycycline Hyclate) 100 Mg Tablet, 100 MG PO BID for Cellulitis for 14 Days, #28 Prescribed by: JAKE PATTON MD on 01/11/21 1223 Ferrous Sulfate (Slow Release Iron) 160 Mg Tablet.er, 160 MG PO DAILY for supplement/anemia, (Reported) Entered as Reported by: EUSEBIO BARAHONA on 11/04/202347 Last Action: Reviewed on 12/20/202133 by Micki Tarango Hydralazine Hcl (Hydralazine Hcl) 25 Mg Tablet, 25 MG PO TID for BLOOD PRESSURE for 30 Days, #90 Prescribed by: SURY PATTERSON MD on 11/10/20 130 Last Action: Continued on 12/20/202139 by KANNAN NELSON MD Insulin Glargine,Hum.rec.anlog (Lantus) 100 Unit/1 Ml Vial, 15 UNIT SQ QHS for DIABETES for 30 Days, #2 Prescribed by: SURY PATTERSON MD on 11/10/20 1305 Last Action: Continued on 12/20/202139 by KANNAN NELSON MD Lactobacillus Rhamnosus Gg (Culturelle) 1 Each Cap.sprink, 1 CAP PO BID for Cellulitis for 14 Days, #28 Prescribed by: JAKE PATTON MD on 01/11/21 1223 Metoprolol Succinate (Metoprolol Succinate ( Xl )) 25 Mg Tab.er.24h, 25 MG PO DAILY for htn, #30 Ref 0 (Reported) Entered as Reported by: Micki Tarango on 12/20/202117 Last Action: Continued on 12/20/202139 by KANNAN NELSON MD Nystatin (Nystatin) 15 Gm Powder, 1 CLARKE TP BID for yeast for 7 Days, #1 Ref 0 (Reported) apply to affected area(s) Entered as Reported by: Micki Tarango on 12/20/202130 Last Action: Continued on 12/20/202139 by KANNAN NELSON MD Omeprazole Magnesium (Omeprazole Magnesium) 20 Mg Capsule.dr, 1 CAP PO DAILY for GERD for 30 Days, #30 Ref 0 Prescribed by: JAKE PATTON MD on 01/11/21 1223 Sertraline Hcl (Zoloft) 50 Mg Tablet, 50 MG PO DAILY for ANTI-DEPRESSANT, Ref 0 (Reported) Entered as Reported by: Micki Tarango on 12/20/202130 Last Action: Continued on 12/20/202139 by KANNAN NELSON MD Scheduled PRN Acetaminophen (Acetaminophen Supp) 650 Mg Supp.rect, 650 MG ND PRN Q4HRS PRN for TEMP OVER 100.4F OR MILD PAIN for 30 Days, #20 Prescribed by: SURY PATTERSON MD on 11/10/20 1305 Last Action: Reviewed on 12/20/202133 by Micki Tarango Buspirone Hcl (Buspirone Hcl) 10 Mg Tablet, 1 TAB PO PRN DAILY PRN for ANXIETY / AGITATION, #60 Ref 1 (Reported) Entered as Reported by: DANY KRAUSE RN on 04/06/19 7354 Last Action: Continued on 12/20/202139 by KANNAN NELSON MD Sennosides (Senokot) 8.6 Mg Tablet, 1 TAB PO BID PRN for CONSTIPATION for 20 Days, #40 Ref 0 (Reported) Entered as Reported by: Micki Tarango on 12/20/202130 Last Action: Continued on 12/20/202139 by KANNAN NELSON MD Discontinued Medications Acetaminophen (Tylenol) 325 Mg Tablet, 1-2 TAB PO QID for pain, #60 Ref 2 (Reported) Entered as Reported by: Micki Tarango on 12/20/202131 Last Action: Reviewed on 12/20/202133 by Micki Tarango Famotidine (Famotidine) 20 Mg Tablet, 20 MG PO DAILY for GERD for 30 Days, #30 Prescribed by: SURY PATTERSON MD on 11/10/20 1305 Last Action: Continued on 12/20/202139 by KANNAN NELSON MD Furosemide (Lasix) 40 Mg Tablet, 40 MG PO BIDBFRMEAL for diuretic, (Reported) Entered as Reported by: Micki Tarango on 12/20/202130 Last Action: HELD on 12/20/202139 by KANNAN NELSON MD Potassium Chloride (Potassium Chloride) 20 Meq Tablet.er, 20 MEQ PO DAILY for supplement, (Reported) Entered as Reported by: Micki Tarango on 12/20/202130 Last Action: HELD on 12/20/202139 by KANNAN NELSON MD Justicifation of Admission Dx: Justifications for Admission: Justification of Admission Dx: Yes JAKE PATTON MD Jan 11, 2021 12:35
--- NOTE | 2021-01-11 14:12 | PDOC ---
G I PROGRESS NOTE Reason for Follow-up Anemia/hepatitis B Subjective No new complaints Physical Exam Lungs clear CV S1 S2 ABD +BS, soft, distended Review of Relevant I have reviewed the following items mara (where applicable) has been applied. Labs Laboratory Tests Test 01/09/21 16:56 01/09/21 21:12 01/10/21 07:47 01/10/21 12:40 Glucose (Fingerstick) 171 mg/dL (70-99) 140 mg/dL (70-99) 110 mg/dL (70-99) 170 mg/dL (70-99) Test 01/10/21 16:45 01/10/21 19:49 01/10/21 21:09 01/11/21 05:55 Glucose (Fingerstick) 142 mg/dL (70-99) 136 mg/dL (70-99) 155 mg/dL (70-99) White Blood Count 10.6 x10^3/uL (4.0-11.0) Red Blood Count 2.75 x10^6/uL (4.30-5.70) Hemoglobin 8.1 g/dL (13.0-17.5) Hematocrit 23.9 % (39.0-53.0) Mean Corpuscular Volume 87 fL (79-100) Mean Corpuscular Hemoglobin 29 pg (25-35) Mean Corpuscular Hemoglobin Concent 34 g/dL (31-37) Red Cell Distribution Width 17.7 % (11.5-14.5) Platelet Count 64 x10^3/uL (140-400) Neutrophils (%) (Auto) 55 % (31-73) Lymphocytes (%) (Auto) 24 % (24-48) Monocytes (%) (Auto) 16 % (0-9) Eosinophils (%) (Auto) 5 % (0-3) Basophils (%) (Auto) 1 % (0-3) Neutrophils # (Auto) 5.8 x10^3/uL (1.8-7.7) Lymphocytes # (Auto) 2.5 x10^3/uL (1.0-4.8) Monocytes # (Auto) 1.7 x10^3/uL (0.0-1.1) Eosinophils # (Auto) 0.5 x10^3/uL (0.0-0.7) Basophils # (Auto) 0.1 x10^3/uL (0.0-0.2) Sodium Level 141 mmol/L (136-145) Potassium Level 3.9 mmol/L (3.5-5.1) Chloride Level 104 mmol/L (98-107) Carbon Dioxide Level 29 mmol/L (21-32) Anion Gap 8 (6-14) Blood Urea Nitrogen 27 mg/dL (8-26) Creatinine 3.5 mg/dL (0.7-1.3) Estimated GFR (Cockcroft-Gault) 17.3 Glucose Level 117 mg/dL (70-99) Calcium Level 8.3 mg/dL (8.5-10.1) Test 01/11/21 07:34 01/11/21 11:35 Glucose (Fingerstick) 118 mg/dL (70-99) 131 mg/dL (70-99) Laboratory Tests Test 01/10/21 16:45 01/10/21 19:49 01/10/21 21:09 01/11/21 05:55 Glucose (Fingerstick) 142 mg/dL (70-99) 136 mg/dL (70-99) 155 mg/dL (70-99) White Blood Count 10.6 x10^3/uL (4.0-11.0) Red Blood Count 2.75 x10^6/uL (4.30-5.70) Hemoglobin 8.1 g/dL (13.0-17.5) Hematocrit 23.9 % (39.0-53.0) Mean Corpuscular Volume 87 fL (79-100) Mean Corpuscular Hemoglobin 29 pg (25-35) Mean Corpuscular Hemoglobin Concent 34 g/dL (31-37) Red Cell Distribution Width 17.7 % (11.5-14.5) Platelet Count 64 x10^3/uL (140-400) Neutrophils (%) (Auto) 55 % (31-73) Lymphocytes (%) (Auto) 24 % (24-48) Monocytes (%) (Auto) 16 % (0-9) Eosinophils (%) (Auto) 5 % (0-3) Basophils (%) (Auto) 1 % (0-3) Neutrophils # (Auto) 5.8 x10^3/uL (1.8-7.7) Lymphocytes # (Auto) 2.5 x10^3/uL (1.0-4.8) Monocytes # (Auto) 1.7 x10^3/uL (0.0-1.1) Eosinophils # (Auto) 0.5 x10^3/uL (0.0-0.7) Basophils # (Auto) 0.1 x10^3/uL (0.0-0.2) Sodium Level 141 mmol/L (136-145) Potassium Level 3.9 mmol/L (3.5-5.1) Chloride Level 104 mmol/L (98-107) Carbon Dioxide Level 29 mmol/L (21-32) Anion Gap 8 (6-14) Blood Urea Nitrogen 27 mg/dL (8-26) Creatinine 3.5 mg/dL (0.7-1.3) Estimated GFR (Cockcroft-Gault) 17.3 Glucose Level 117 mg/dL (70-99) Calcium Level 8.3 mg/dL (8.5-10.1) Test 01/11/21 07:34 01/11/21 11:35 Glucose (Fingerstick) 118 mg/dL (70-99) 131 mg/dL (70-99) Medications Current Medications Apixaban (Eliquis) 2.5 mg BID PO Last administered on 12/21/20 09:00; Start 12/20/20 at 22:00; Stop 12/21/20 at 13:36; Status DC Atorvastatin Calcium (Lipitor) 40 mg HS PO Last administered on 01/10/21at 20:26; Start 12/20/20 at 22:00 Buspirone HCl (Buspar) 10 mg PRN DAILY PRN PO ANXIETY / AGITATION Last administered on 01/05/21at 00:44; Start 12/20/20 at 21:45 Famotidine (Pepcid) 20 mg DAILY PO Last administered on 01/11/21 09:11; Start 12/21/20 at 09:00 Hydralazine HCl (Apresoline) 25 mg TID PO Last administered on 01/11/21 09:11; Start 12/21/20 at 09:00 Insulin Glargine (Lantus Syringe) 15 unit QHS SQ Last administered on 01/02/21at 21:42; Start 12/20/20 at 22:00; Stop 01/03/21 at 13:14; Status DC Metoprolol Succinate (Toprol Xl) 25 mg DAILY PO Last administered on 01/11/21 09:12; Start 12/21/20 at 09:00 Nystatin (Nystop) 1 daniela BID TP Last administered on 01/11/21 09:12; Start 12/20/20 at 22:00 Sennosides (Senna) 8.6 mg PRN BID PRN PO CONSTIPATION 1ST CHOICE; Start 12/20/20 at 21:45; Stop 12/20/20 at 21:52; Status DC Sertraline HCl (Zoloft) 50 mg DAILY PO Last administered on 01/11/21 09:11; Start 12/21/20 at 09:00 Ascorbic Acid (Vitamin C) 500 mg BID PO Last administered on 01/11/21 09:11; Start 12/20/20 at 22:00 Furosemide (Lasix) 40 mg 1X ONCE IVP Last administered on 12/20/20at 23:03; Start 12/20/20 at 21:45; Stop 12/20/20 at 21:46; Status DC Sennosides (Senna) 17.2 mg PRN BID PRN PO CONSTIPATION, 2ND CHOICE Last administered on 01/01/21 08:44; Start 12/20/20 at 21:45 Docusate Sodium (Colace) 100 mg PRN DAILY PRN PO HARD STOOLS; Start 12/20/20 at 21:45 Ondansetron HCl (Zofran) 4 mg PRN Q6HRS PRN IVP NAUSEA/VOMITING Last administered on 01/10/21 09:07; Start 12/20/20 at 21:45 Insulin Human Lispro (HumaLOG) 0-7 UNITS TIDWMEALS SQ Last administered on 01/10/21 12:49; Start 12/21/20 at 08:00 Dextrose (Dextrose 50%-Water Syringe) 12.5 gm PRN Q15MIN PRN IV SEE COMMENTS; Start 12/20/20 at 21:45 Acetaminophen (Tylenol) 650 mg PRN Q4HRS PRN PO TEMP OVER 100.4F OR MILD PAIN Last administered on 01/04/21at 21:27; Start 12/20/20 at 21:45 Furosemide 100 mg/ Sodium Chloride 100 ml @ 0 mls/hr CONT PRN IV SEE I/O RECORD Last administered on 12/26/20at 10:06; Start 12/21/20 at 11:30; Stop 12/26/20 at 10:28; Status DC Potassium Chloride (Klor-Con) 20 meq 1X ONCE PO Last administered on 12/21/20at 14:02; Start 12/21/20 at 12:15; Stop 12/21/20 at 12:16; Status DC Potassium Chloride (Klor-Con) 40 meq 1X ONCE PO Last administered on 12/22/20at 08:39; Start 12/22/20 at 08:30; Stop 12/22/20 at 08:31; Status DC Ferrous Sulfate (Iron Oral Solution) 300 mg BIDWMEALS PO Last administered on 12/24/20at 08:54; Start 12/22/20 at 17:00; Stop 12/24/20 at 11:08; Status DC Polyethylene Glycol (miraLAX PACKET) 17 gm PRN DAILY PRN PO CONSTIPATION, 1ST CHOICE; Start 12/22/20 at 12:00 Potassium Chloride (Klor-Con) 40 meq 1X ONCE PO Last administered on 12/23/20at 06:54; Start 12/23/20 at 07:00; Stop 12/23/20 at 07:01; Status DC Potassium Chloride (Klor-Con) 40 meq 1X ONCE PO Last administered on 12/23/20at 08:54; Start 12/23/20 at 09:00; Stop 12/23/20 at 09:01; Status DC Potassium Chloride (Klor-Con) 40 meq DAILY PO Last administered on 01/01/21at 08:47; Start 12/24/20 at 09:00; Stop 01/02/21 at 11:03; Status DC Ferrous Sulfate (Feosol) 325 mg BIDWMEALS PO Last administered on 01/11/21at 09:11; Start 12/24/20 at 17:00 Linezolid (Zyvox) 600 mg BID PO Last administered on 01/02/21at 08:43; Start 12/25/20 at 09:00; Stop 01/02/21 at 09:10; Status DC Amoxicillin/ Clavulanate Potassium (Augmentin 875/ 125mg) 1 tab BID PO Last administered on 12/31/20at 08:29; Start 12/25/20 at 09:00; Stop 12/31/20 at 08:43; Status DC Furosemide (Lasix) 40 mg BID94 PO Last administered on 12/30/20at 08:58; Start 12/26/20 at 10:30; Stop 12/30/20 at 11:38; Status DC Lactobacillus Rhamnosus (Culturelle) 1 cap BID PO Last administered on 01/11/21at 09:11; Start 12/26/20 at 21:00 Iodixanol (Visipaque 320) 100 ml STK-MED ONCE .ROUTE ; Start 12/27/20 at 10:35; Stop 12/27/20 at 10:35; Status DC Lidocaine HCl (Lidocaine 1% 20ml Vial) 20 ml STK-MED ONCE .ROUTE ; Start 12/27/20 at 10:35; Stop 12/27/20 at 10:35; Status DC Heparin Sodium/ Sodium Chloride 1,000 ml @ As Directed STK-MED ONCE .ROUTE ; Start 12/27/20 at 10:35; Stop 12/27/20 at 10:35; Status DC Midazolam HCl (Versed) 5 mg STK-MED ONCE .ROUTE ; Start 12/27/20 at 11:40; Stop 12/27/20 at 11:40; Status DC Fentanyl Citrate (Fentanyl 2ml Vial) 100 mcg STK-MED ONCE .ROUTE ; Start 12/27/20 at 11:40; Stop 12/27/20 at 11:40; Status DC Heparin Sodium (Porcine) (Heparin Sodium) 10,000 unit STK-MED ONCE .ROUTE ; Start 12/27/20 at 11:40; Stop 12/27/20 at 11:40; Status DC Heparin Sodium/ Sodium Chloride (HEPARIN for ARTERIAL LINE FLUSH) 1,000 unit 1X ONCE IART Last administered on 12/27/20at 13:04; Start 12/27/20 at 12:15; Stop 12/27/20 at 12:19; Status DC Heparin Sodium/ Sodium Chloride (HEPARIN for ARTERIAL LINE FLUSH) 1,000 unit 1X ONCE IART Last administered on 12/27/20at 13:04; Start 12/27/20 at 12:15; Stop 12/27/20 at 12:19; Status DC Midazolam HCl (Versed) 5 mg 1X ONCE IV Last administered on 12/27/20at 13:05; Start 12/27/20 at 12:15; Stop 12/27/20 at 12:19; Status DC Fentanyl Citrate (Fentanyl 2ml Vial) 100 mcg 1X ONCE IV Last administered on 12/27/20at 13:06; Start 12/27/20 at 12:15; Stop 12/27/20 at 12:19; Status DC Iodixanol (Visipaque 320) 100 ml 1X ONCE IART Last administered on 12/27/20at 13:04; Start 12/27/20 at 12:15; Stop 12/27/20 at 12:19; Status DC Heparin Sodium (Porcine) (Heparin Sodium) 2,500 unit 1X ONCE IV Last administered on 12/27/20at 13:08; Start 12/27/20 at 12:15; Stop 12/27/20 at 12:19; Status DC Lidocaine HCl (Lidocaine 1% 20ml Vial) 20 ml 1X ONCE INJ Last administered on 12/27/20at 13:04; Start 12/27/20 at 12:15; Stop 12/27/20 at 12:19; Status DC Fentanyl Citrate (Fentanyl 2ml Vial) 25 mcg PRN Q5MIN PRN IVP MILD PAIN 1-3; Start 12/30/20 at 06:00; Stop 12/31/20 at 05:59; Status DC Fentanyl Citrate (Fentanyl 2ml Vial) 50 mcg PRN Q5MIN PRN IVP MODERATE PAIN 4- 6; Start 12/30/20 at 06:00; Stop 12/31/20 at 05:59; Status DC Morphine Sulfate (Morphine Sulfate) 1 mg PRN Q10MIN PRN IVP SEVERE PAIN 7-10; Start 12/30/20 at 06:00; Stop 12/31/20 at 05:59; Status DC Ringer's Solution 1,000 ml @ 30 mls/hr Q24H IV Last administered on 12/30/20at 07:05; Start 12/30/20 at 06:00; Stop 12/30/20 at 17:59; Status DC Hydromorphone HCl (Dilaudid) 0.5 mg PRN Q10MIN PRN IVP SEVERE PAIN 7-10, 2nd CHOICE; Start 12/30/20 at 06:00; Stop 12/31/20 at 05:59; Status DC Prochlorperazine Edisylate (Compazine) 5 mg PACU PRN PRN IVP NAUSEA, MRX1; Start 12/30/20 at 06:00; Stop 12/31/20 at 05:59; Status DC Cefazolin Sodium/ Dextrose 50 ml @ 100 mls/hr 1X ONCE IV Last administered on 12/30/20at 07:20; Start 12/30/20 at 08:00; Stop 12/30/20 at 08:29; Status DC Sodium Chloride 500 ml @ 75 mls/hr 1X ONCE IV Last administered on 12/30/20at 17:44; Start 12/30/20 at 18:00; Stop 12/31/20 at 00:39; Status DC Propofol (Diprivan) 200 mg STK-MED ONCE IV ; Start 12/30/20 at 06:36; Stop 12/30/20 at 19:06; Status DC Lidocaine HCl (Lidocaine Pf 2% Vial) 5 ml STK-MED ONCE .ROUTE ; Start 12/30/20 at 06:36; Stop 12/30/20 at 19:06; Status DC Lidocaine HCl (Lidocaine 1% 20ml Vial) 20 ml STK-MED ONCE .ROUTE ; Start 12/30/20 at 07:50; Stop 12/30/20 at 19:07; Status DC Propofol (Diprivan) 200 mg STK-MED ONCE IV ; Start 12/30/20 at 07:56; Stop 12/30/20 at 19:08; Status DC Amoxicillin/ Clavulanate Potassium (Augmentin 500/ 125mg) 1 tab BID PO ; Start 12/31/20 at 09:00; Stop 12/31/20 at 09:10; Status DC Amoxicillin/ Clavulanate Potassium (Augmentin 500/ 125mg) 1 tab BID PO Last administered on 01/04/21at 21:27; Start 12/31/20 at 21:00; Stop 01/05/21 at 15:34; Status DC Sodium Chloride 1,000 ml @ 75 mls/hr 1X ONCE IV Last administered on 12/31/20at 11:27; Start 12/31/20 at 11:30; Stop 01/01/21 at 00:49; Status DC Aspirin (Ecotrin) 81 mg DAILYWBKFT PO Last administered on 01/11/21at 09:10; Start 01/01/21 at 08:00 Sodium Chloride 1,000 ml @ 75 mls/hr [id number] IV Last administered on 01/03/21at 05:20; Start 01/01/21 at 12:00; Stop 01/03/21 at 12:55; Status DC Linezolid/Dextrose 300 ml @ 300 mls/hr Q12HR IV Last administered on 01/04/21at 21:27; Start 01/02/21 at 21:00; Stop 01/05/21 at 08:35; Status DC Lidocaine/ Epinephrine (LIDOCAINE 1%-EPI 1:100,000 Multi-Dose) 20 ml STK-MED ONCE .ROUTE ; Start 01/04/21 at 10:00; Stop 01/04/21 at 10:00; Status DC Midazolam HCl (Versed) 2 mg STK-MED ONCE .ROUTE ; Start 01/04/21 at 10:31; Stop 01/04/21 at 10:31; Status DC Fentanyl Citrate (Fentanyl 2ml Vial) 100 mcg STK-MED ONCE .ROUTE ; Start 01/04/21 at 10:31; Stop 01/04/21 at 10:31; Status DC Cefazolin Sodium/ Dextrose 50 ml @ As Directed STK-MED ONCE IV ; Start 01/04/21 at 10:31; Stop 01/04/21 at 10:31; Status DC Midazolam HCl (Versed) 2 mg 1X ONCE IV Last administered on 01/04/21at 10:50; Start 01/04/21 at 11:00; Stop 01/04/21 at 11:01; Status DC Fentanyl Citrate (Fentanyl 2ml Vial) 100 mcg 1X ONCE IV Last administered on 01/04/21at 10:50; Start 01/04/21 at 11:00; Stop 01/04/21 at 11:01; Status DC Lidocaine/ Epinephrine (LIDOCAINE 1%-EPI 1:100,000 Multi-Dose) 20 ml 1X ONCE SQ Last administered on 01/04/21at 10:51; Start 01/04/21 at 11:00; Stop 01/04/21 at 11:01; Status DC Cefazolin Sodium/ Dextrose 50 ml @ 100 mls/hr 1X ONCE IV Last administered on 01/04/21at 10:50; Start 01/04/21 at 11:00; Stop 01/04/21 at 11:29; Status DC Sodium Chloride 1,000 ml @ 1,000 mls/hr Q1H PRN IV hypotension; Start 01/04/21 at 11:00; Stop 01/04/21 at 16:59; Status DC Albumin Human 200 ml @ 200 mls/hr 1X PRN PRN IV Hypotension; Start 01/04/21 at 11:00; Stop 01/04/21 at 16:59; Status DC Sodium Chloride 1,000 ml @ 400 mls/hr Q2H30M PRN IV PATENCY; Start 01/04/21 at 11:00; Stop 01/04/21 at 22:59; Status DC Info (PHARMACY MONITORING -- do not chart) 1 each PRN DAILY PRN MC SEE COMMENTS; Start 01/04/21 at 12:45; Status UNV Info (PHARMACY MONITORING -- do not chart) 1 each PRN DAILY PRN MC SEE COMMENTS; Start 01/04/21 at 12:45; Stop 01/05/21 at 15:39; Status DC Doxycycline Hyclate (Vibra-Tab) 100 mg BID PO Last administered on 01/07/21at 09:06; Start 01/05/21 at 09:00; Stop 01/07/21 at 11:03; Status DC Sodium Chloride 1,000 ml @ 1,000 mls/hr Q1H PRN IV hypotension; Start 01/05/21 at 11:45; Stop 01/05/21 at 17:44; Status DC Albumin Human 200 ml @ 200 mls/hr 1X PRN PRN IV Hypotension; Start 01/05/21 at 11:45; Stop 01/05/21 at 17:44; Status DC Sodium Chloride 1,000 ml @ 400 mls/hr Q2H30M PRN IV PATENCY; Start 01/05/21 at 11:45; Stop 01/05/21 at 23:44; Status DC Info (PHARMACY MONITORING -- do not chart) 1 each PRN DAILY PRN MC SEE COMMENTS; Start 01/05/21 at 11:45; Status UNV Info (PHARMACY MONITORING -- do not chart) 1 each PRN DAILY PRN MC SEE COMMENTS; Start 01/05/21 at 11:45 Amoxicillin/ Clavulanate Potassium (Augmentin 500/ 125mg) 1 tab DAILY PO Last administered on 01/07/21at 09:06; Start 01/06/21 at 09:00; Stop 01/07/21 at 11:03; Status DC Sodium Chloride 1,000 ml @ 1,000 mls/hr Q1H PRN IV hypotension; Start 01/07/21 at 10:15; Stop 01/07/21 at 16:14; Status DC Sodium Chloride 1,000 ml @ 400 mls/hr Q2H30M PRN IV PATENCY; Start 01/07/21 at 10:15; Stop 01/07/21 at 22:14; Status DC Info (PHARMACY MONITORING -- do not chart) 1 each PRN DAILY PRN MC SEE COMMENTS; Start 01/07/21 at 10:15; Status UNV Acetaminophen (Tylenol) 650 mg 1X PRN PRN PO PRE-TRANSFUSION Last administered on 01/08/21at 14:02; Start 01/08/21 at 11:45; Stop 01/09/21 at 11:44; Status DC Amoxicillin/ Clavulanate Potassium (Augmentin 500/ 125mg) 1 tab BID PO Last administered on 01/11/21at 09:11; Start 01/10/21 at 09:00 Doxycycline Hyclate (Vibra-Tab) 100 mg BID PO Last administered on 01/11/21at 09:10; Start 01/10/21 at 09:00 Metoclopramide HCl (Reglan Vial) 5 mg PRN Q6HRS PRN IVP NAUSEA/VOMITING- 2ND CHOICE; Start 01/10/21 at 09:00 Ondansetron HCl (Zofran Odt) 4 mg QIDACHS PRN PO NAUSEA/VOMITING; Start 01/10/21 at 11:15 Sodium Chloride 1,000 ml @ 1,000 mls/hr Q1H PRN IV hypotension; Start 01/10/21 at 15:30; Stop 01/10/21 at 21:29; Status DC Albumin Human 200 ml @ 200 mls/hr 1X PRN PRN IV Hypotension; Start 01/10/21 at 15:30; Stop 01/10/21 at 21:29; Status DC Diphenhydramine HCl (Benadryl) 25 mg 1X PRN PRN IV ITCHING; Start 01/10/21 at 15:30; Stop 01/11/21 at 15:29 Sodium Chloride 1,000 ml @ 400 mls/hr Q2H30M PRN IV PATENCY; Start 01/10/21 at 15:30; Stop 01/11/21 at 03:29; Status DC Info (PHARMACY MONITORING -- do not chart) 1 each PRN DAILY PRN MC SEE COMMENTS; Start 01/10/21 at 15:30; Status UNV Info (PHARMACY MONITORING -- do not chart) 1 each PRN DAILY PRN MC SEE COMMENTS; Start 01/10/21 at 15:30; Status Cancel Sodium Chloride 1,000 ml @ 1,000 mls/hr Q1H PRN IV hypotension; Start 01/10/21 at 16:15; Stop 01/10/21 at 22:14; Status UNV Albumin Human 200 ml @ 200 mls/hr 1X PRN PRN IV Hypotension; Start 01/10/21 at 16:15; Stop 01/10/21 at 22:14; Status UNV Diphenhydramine HCl (Benadryl) 25 mg 1X PRN PRN IV ITCHING; Start 01/10/21 at 16:15; Stop 01/11/21 at 16:14; Status UNV Sodium Chloride 1,000 ml @ 400 mls/hr Q2H30M PRN IV PATENCY; Start 01/10/21 at 16:15; Stop 01/11/21 at 04:14; Status UNV Info (PHARMACY MONITORING -- do not chart) 1 each PRN DAILY PRN MC SEE COMMENTS; Start 01/10/21 at 16:15; Status UNV Info (PHARMACY MONITORING -- do not chart) 1 each PRN DAILY PRN MC SEE COMMENTS; Start 01/10/21 at 16:15; Status UNV Darbepoetin Johnson (ARANESP for DIALYSIS PTS) 60 mcg WEEKLYHS SQ ; Start 01/11/21 at 21:00 Active Scripts Active Omeprazole Magnesium 20 Mg Capsule. 1 Cap PO DAILY 30 Days Culturelle (Lactobacillus Rhamnosus Gg) 1 Each Cap.sprink 1 Cap PO BID 14 Days Aspirin Ec (Aspirin) 81 Mg Tablet. 81 Mg PO DAILYWBKFT 30 Days Doxycycline Hyclate 100 Mg Tablet 100 Mg PO BID 14 Days Amox Tr-K Clv 500-125 Mg Tab (Amoxicillin/Potassium Clav) 1 Each Tablet 1 Tab PO DAILY 14 Days Lantus (Insulin Glargine,Hum.rec.anlog) 100 Unit/1 Ml Vial 15 Unit SQ QHS 30 Days Acetaminophen Supp (Acetaminophen) 650 Mg Supp.rect 650 Mg LA PRN Q4HRS PRN 30 Days Hydralazine Hcl 25 Mg Tablet 25 Mg PO TID 30 Days Reported Vitamin C (Ascorbic Acid) 500 Mg Capsule 500 Mg PO BID Senokot (Sennosides) 8.6 Mg Tablet 1 Tab PO BID PRN 20 Days Nystatin 15 Gm Powder 1 Daniela TP BID 7 Days apply to affected area(s) Zoloft (Sertraline Hcl) 50 Mg Tablet 50 Mg PO DAILY Metoprolol Succinate ( Xl ) (Metoprolol Succinate) 25 Mg Tab.er.24h 25 Mg PO DAILY Eliquis (Apixaban) 5 Mg Tablet 2.5 Mg PO BID Slow Release Iron (Ferrous Sulfate) 160 Mg Tablet.er 160 Mg PO DAILY Buspirone Hcl 10 Mg Tablet 1 Tab PO PRN DAILY PRN Atorvastatin Calcium 40 Mg Tablet 40 Mg PO HS Vitals/I & O Vital Sign - Last 24 Hours 01/10/21 01/10/21 01/10/21 01/10/21 14:50 19:47 20:26 20:40 Temp 98.5 98.0 98.5 98.0 Pulse 59 59 63 Resp 18 20 B/P (MAP) 121/48 (72) 121/48 119/58 (78) Pulse Ox 94 94 O2 Delivery Room Air Room Air Room Air 01/10/21 01/11/21 01/11/21 01/11/21 23:40 03:10 07:30 08:00 Temp 98.5 98.6 98.1 98.5 98.6 98.1 Pulse 59 62 60 Resp 20 20 18 B/P (MAP) 124/55 (78) 131/56 (81) 126/60 (82) Pulse Ox 92 93 94 O2 Delivery Room Air Room Air Room Air Room Air 01/11/21 01/11/21 01/11/21 09:11 09:12 11:30 Temp 98.4 98.4 Pulse 60 60 59 Resp 18 B/P (MAP) 126/60 126/60 128/59 (82) Pulse Ox 95 O2 Delivery Room Air Intake and Output 01/10/21 01/10/21 01/11/21 15:00 23:00 07:00 Intake Total 560 ml Output Total 50 ml Balance 510 ml Problem List Problems Medical Problems: (1) Anemia Status: Acute (2) CHF exacerbation Status: Acute Assessment Hepatitis B- per patient on chronic active viral suppression at [facility] hepatology clinic Justicifation of Admission Dx: Justifications for Admission: Justification of Admission Dx: Yes PHILLIP FLETCHER MD Jan 11, 2021 14:12
[2021-01-11 14:59] VITALS: BP 124/62
--- NOTE | 2021-01-11 15:29 | NUR ---
Discharge Note: SAMEER HOLDEN [address] Discharge instructions and discharge home medications reviewed with Other facility and a copy given. All questions have been answered and understanding verbalized. The following instructions and handouts were given: DISCHARGE PACKET TO TRANSPORTATION STAFF, REPORT CALLED TO NORAH @ [facility]. INSTRUCTIONS PROVIDED RE:WOUND VAC CONNECTION Discontinued lines and drains: Hemovac, Peripheral IV . Patient discharged to [facility] with Self via Wheelchair
[2021-01-11] MEDS ORDERED: DARBEPOETIN ALFA 60 MCG/0.3 ML DISP.SYRIN. SQ SCH (21:00)
== END 2021-01-11 15:15 | DRG 264 ==
LOC: ER 12:27 → 2 SOUTH 17:07
PROVIDERS: ADMIT Internal Medicine; ATTEND Internal Medicine
PROC: 30233N1 Transfusion of Nonautologous Red Blood Cells into Peripheral Vein, Percutaneous Approach (ICD-10-PCS; 2020-12-21)
PROC: B4101ZZ Fluoroscopy of Abdominal Aorta using Low Osmolar Contrast (ICD-10-PCS; 2020-12-27)
PROC: B41G1ZZ Fluoroscopy of Left Lower Extremity Arteries using Low Osmolar Contrast (ICD-10-PCS; 2020-12-27)
PROC: 0JBR0ZZ Excision of Left Foot Subcutaneous Tissue and Fascia, Open Approach (ICD-10-PCS; principal; 2020-12-30 07:30)
PROC: 0JH63XZ Insertion of Tunneled Vascular Access Device into Chest Subcutaneous Tissue and Fascia, Percutaneous Approach (ICD-10-PCS; 2021-01-04)
PROC: 02H633Z Insertion of Infusion Device into Right Atrium, Percutaneous Approach (ICD-10-PCS; 2021-01-04)
PROC: B548ZZA Ultrasonography of Superior Vena Cava, Guidance (ICD-10-PCS; 2021-01-04)
PROC: B5181ZA Fluoroscopy of Superior Vena Cava using Low Osmolar Contrast, Guidance (ICD-10-PCS; 2021-01-04)
PROC: 5A1D70Z Performance of Urinary Filtration, Intermittent, Less than 6 Hours Per Day (ICD-10-PCS; 2021-01-04)
DX: I13.2 Hypertensive heart and chronic kidney disease with heart failure and with stage 5 chronic kidney disease, or end stage renal disease (principal); E43 Unspecified severe protein-calorie malnutrition; I50.43 Acute on chronic combined systolic (congestive) and diastolic (congestive) heart failure; N18.6 End stage renal disease; E11.52 Type 2 diabetes mellitus with diabetic peripheral angiopathy with gangrene; N17.9 Acute kidney failure, unspecified; B19.10 Unspecified viral hepatitis B without hepatic coma; E87.0 Hyperosmolality and hypernatremia; I48.21 Permanent atrial fibrillation; I70.262 Atherosclerosis of native arteries of extremities with gangrene, left leg; L03.116 Cellulitis of left lower limb; L97.429 Non-pressure chronic ulcer of left heel and midfoot with unspecified severity; D50.0 Iron deficiency anemia secondary to blood loss (chronic); D63.8 Anemia in other chronic diseases classified elsewhere; D69.6 Thrombocytopenia, unspecified; E11.22 Type 2 diabetes mellitus with diabetic chronic kidney disease; E11.40 Type 2 diabetes mellitus with diabetic neuropathy, unspecified; E66.01 Morbid (severe) obesity due to excess calories; Z68.36 Body mass index [BMI] 36.0-36.9, adult; E78.5 Hyperlipidemia, unspecified; E87.5 Hyperkalemia; E87.6 Hypokalemia; F41.9 Anxiety disorder, unspecified; I25.10 Atherosclerotic heart disease of native coronary artery without angina pectoris; I35.0 Nonrheumatic aortic (valve) stenosis; I89.0 Lymphedema, not elsewhere classified; Z79.01 Long term (current) use of anticoagulants; Z79.899 Other long term (current) drug therapy; Z80.9 Family history of malignant neoplasm, unspecified; Z82.49 Family history of ischemic heart disease and other diseases of the circulatory system; Z87.11 Personal history of peptic ulcer disease; Z88.2 Allergy status to sulfonamides; Z95.5 Presence of coronary angioplasty implant and graft; Z99.2 Dependence on renal dialysis; F32.9 Major depressive disorder, single episode, unspecified; K21.9 Gastro-esophageal reflux disease without esophagitis; Z88.8 Allergy status to other drugs, medicaments and biological substances; L97.529 Non-pressure chronic ulcer of other part of left foot with unspecified severity; E11.621 Type 2 diabetes mellitus with foot ulcer; N20.0 Calculus of kidney; Z20.822 Contact with and (suspected) exposure to COVID-19
CPT/HCPCS: 96374; 99285; G0269; 36247; 36415; 36430; 36558; 71045; 73718; 75625; 75710; 76937; 77001; 80048; 80053; 82274; 82542; 82962; 83735; 83880; 84100; 84132; 84484; 85007; 85014; 85018; 85025; 85027; 85347; 85610; 85730; 86704; 86706; 86850; 86900; 86901; 86920; 87340; 93005; 93926; 93970; 99152; 99153; A4930; A6222; A6223; A6253; A6402; A6443; A6449; C1750; C1769; C1892; J0690; J1644; J1815; J1940; J2020; J2250; J2405; J2704; J3010; J3490; J7030; J7040; J7120; P9016; Q9967; U0003; U0005; 97110-GO; 97110-GP; 97116-GP; 97530-GO; 97530-GP; 97535-GO; G0378

== ENCOUNTER 2021-01-14 16:17 | Inpatient (IN) | payer MEDICARE ==
[~2021-01-14] VITALS: Ht 172.7 cm; Wt 139.0 kg
[~2021-01-14 16:17] MED LIST changes: +ACET325T9 PO; +AMOX1TAB10 PO; +ASCO500C9 PO; +FURO-68 PO; +LACT1CAP19 PO; +NYST15PO9 TP; +OMEP-203 PO; +POTA-163 PO; +SENN8.6T99 PO; +SERT50TA PO
--- NOTE | 2021-01-14 18:51 | EKG ---
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
--- NOTE | 2021-01-14 19:50 | PHYS DOC ---
Past Medical History Past Medical History: A-Fib, CHF, Diabetes-Type II, GI Bleed, Hypertension, Renal Failure, Vascular Disease Additional Past Medical Histor: GOUT Past Surgical History: No Surgical History Additional Past Surgical Histo: CARDIAC STENTS Smoking Status: Never Smoker Alcohol Use: None Drug Use: None General Adult EDM: Chief Complaint: DIALYSIS PROBLEM HPI: HPI: Patient is a 75 year old male who presents with here from [facility] with increased swelling on bilateral upper extremities and lower extremities due to not having dialysis x5 days. Patient last had dialysis on Sunday. He was taken to [facility] on Sunday and they stated that since he did not have a lift for the patient that they were not going to do dialysis and sent him back to [facility]. [facility] and took him in on Sunday and they stated that they did not know that he was coming in. They stated to bring him in Sunday tomorrow and patient's daughter got a phone call stating that they do not have room for him tomorrow either. Patient is very swollen and is feeling generalized weakness. He is also draining fluid from blisters he now has on his leg due to all the fluid buildup in his bilateral lower extremities. He does have wounds that he has a wound VAC attached to on the left foot. Patient denies nausea, vomiting, diarrhea, fever, cough, shortness of breath, dizziness, chest pain, headache. Denies any pain at this time. He has a history of A. fib, CHF, diabetes, gout, renal failure, vascular disease, hypertension, cardiac stents, GI bleed. Review of Systems: Review of Systems: Constitutional: Denies fever or chills. [] Eyes: Denies change in visual acuity. [] HENT: Denies nasal congestion or sore throat. [] Respiratory: Denies cough or shortness of breath. [] Cardiovascular: Denies chest pain or + bilateral lower leg and upper extremity edema. [] GI: Denies abdominal pain, nausea, vomiting, bloody stools or diarrhea. [] : Denies dysuria. [] Musculoskeletal: Denies back pain or joint pain. [] Integument: Denies rash. + Fluid leaking from legs due to fluid buildup and blisters [] Neurologic: Denies headache, focal weakness or sensory changes. [] Endocrine: Denies polyuria or polydipsia. [] Lymphatic: Denies swollen glands. [] Psychiatric: Denies depression or anxiety. [] Heart Score: C/O Chest Pain: No Risk Factors: Risk Factors: DM, Current or recent (<one month) smoker, HTN, HLP, family history of CAD, obesity. Risk Scores: Score 0 - 3: 2.5% MACE over next 6 weeks - Discharge Home Score 4 - 6: 20.3% MACE over next 6 weeks - Admit for Clinical Observation Score 7 - 10: 72.7% MACE over next 6 weeks - Early Invasive Strategies Allergies: Allergies: Allergies Coded Allergies Type Severity Reaction Last Updated Verified Sulfa (Sulfonamide Antibiotics) Adverse Reaction Intermediate Nausea and Vomiting 12/21/20 Yes Physical Exam: PE: Constitutional: Well developed, well nourished, no acute distress, non-toxic appearance. [] HENT: Normocephalic, atraumatic, bilateral external ears normal, oropharynx moist, no oral exudates, nose normal. [] Eyes: PERRLA, EOMI, conjunctiva normal, no discharge. [] Neck: Normal range of motion, no tenderness, supple, no stridor. [] Cardiovascular:Heart rate regular rhythm, no murmur [] Lungs & Thorax: Bilateral upper breath sounds clear and lower diminished to auscultation [] Abdomen: Bowel sounds normal, soft, no tenderness, no masses, no pulsatile masses. [] Skin: Warm, dry, no erythema, no rash. Bilateral lower legs are wrapped with Kerlix. Skin blistering due to fluid excess and draining from his bilateral legs causing puddles in the bed. Wound VAC attached to left foot. [] Back: No tenderness, no CVA tenderness. [] Extremities: No tenderness, no cyanosis, no clubbing, ROM intact, right lateral upper and lower extremity 3+ edema. [] Neurologic: Alert and oriented X 3, normal motor function, normal sensory function, no focal deficits noted. [] Psychologic: Affect normal, judgement normal, mood normal. [] Current Patient Data: Vital Signs: Vital Signs Date Time Temp Pulse Resp B/P (MAP) Pulse Ox O2 Delivery O2 Flow Rate FiO2 01/14/21 18:36 97.8 67 21 151/65 (93) 97 Room Air 97.8 EKG: EK and read by Dr. Mondragon as a sinus rhythm that is paced with a right bundle branch block and no STEMI Radiology/Procedures: Radiology/Procedures: [] Impression: [facility] [address] [place], [place] [id number] IMAGING REPORT Signed PATIENT: SAMEER HOLDEN GACCOUNT: [id number] : 1945 LOCATION: ER AGE: 75 SEX: M EXAM STATUS: REG ER ORD. PHYSICIAN: HEATHER MUÑIZ APRN REASON: EDEMA PROCEDURE: PORTABLE CHEST 1V EXAM: AP View of the chest DATE: 01/14/2021 7:46 PM INDICATION: Reason: EDEMA / Spl. Instructions: / History: COMPARISON: 12/20/2020, 11/11/2019 FINDINGS: Right IJ catheter remains within the right atrium. Cardiac generator pack obscures a portion of the left chest with leads in stable position. Heart is mildly enlarged. Atherosclerotic calcifications of aorta are seen. Patchy opacities right and left lung base likely atelectasis or consolidation. Trace right pleural effusion. No left pleural effusion. No pneumothorax. Metallic densities overlying the left chest likely foreign bodies. IMPRESSION: 1. Cardiomegaly with bilateral lung base opacities likely pulmonary edema although atelectasis or consolidation have similar appearance. Electronically signed by: Cristino Holland MD (01/14/2021 8:33 PM) [facility] DICTATED and SIGNED BY: CRISTINO HOLLAND MD DATE: 01/14/21 [id number] Course & Med Decision Making: Course & Med Decision Making Pertinent Labs and Imaging studies reviewed. (See chart for details) See HPI. Alert and oriented x4. Patient is not ambulatory due to wounds on his legs. [facility] has to use a [employer] lift for him. Speaks in full clear sentences. Patient has bilateral lower and upper extremity edema 3+. Patient does look pale or even yellowish in color. Lungs are clear in upper lobes but diminished in lower lobes. Skin otherwise warm and dry. Bilateral lower legs are wrapped in Kerlix. Patient's family and the patient is very frustrated with [facility] and stating that they would like to have his dialysis at a different facility. Patient's daughter also states the patient has not made urine today. Chest x-ray shows pulmonary edema. Patient will also be admitted for dialysis. Spoken to Dr. Ramos concerning this patient. [] Joseon Disclaimer: Rick Disclaimer: This electronic medical record was generated, in whole or in part, using a voice recognition dictation system. Departure Departure Impression: Primary Impression: Pulmonary edema Qualified Codes: J81.0 - Acute pulmonary edema Additional Impression: Missed dialysis Disposition: ADMITTED INPATIENT Condition: STABLE Referrals: BART TELLES MD (PCP) HEATHER MUÑIZ APRN Jan 14, 2021 19:50
[2021-01-14 20:00] LABS: BASO # 0.1 x10^3/uL (0.0-0.2); BASO % 1 % (0-3); EOS # 0.5 x10^3/uL (0.0-0.7); EOS % 5 % (0-3); HEMATOCRIT 24.5 % (39.0-53.0); HEMOGLOBIN 8.1 g/dL (13.0-17.5); LYMPH # 1.7 x10^3/uL (1.0-4.8); LYMPH % 18 % (24-48); MEAN CORPUSCULAR HEMOGLOBIN 29 pg (25-35); MEAN CORPUSCULAR HGB CONC 33 g/dL (31-37); MEAN CORPUSCULAR VOLUME 88 fL (79-100); MONO # 1.1 x10^3/uL (0.0-1.1); MONO % 12 % (0-9); NEUT # 6.3 x10^3/uL (1.8-7.7); NEUT % 65 % (31-73); PLATELET COUNT 210 x10^3/uL (140-400); RED BLOOD COUNT 2.79 x10^6/uL (4.30-5.70); RED CELL DISTRIBUTION WIDTH 17.7 % (11.5-14.5); WHITE BLOOD COUNT 9.7 x10^3/uL (4.0-11.0)
[2021-01-14 20:17] LABS: CALCIUM 8.3 mg/dL (8.5-10.1); CREATININE 5.5 mg/dL (0.7-1.3); GFR 10.2
[2021-01-14 20:31] LABS: ALBUMIN 2.6 g/dL (3.4-5.0); ALBUMIN/GLOBULIN RATIO 0.7 (1.0-1.7); MAGNESIUM 2.1 mg/dL (1.8-2.4); TOTAL BILIRUBIN 0.8 mg/dL (0.2-1.0); TOTAL PROTEIN 6.2 g/dL (6.4-8.2)
--- NOTE | 2021-01-14 20:35 | RAD ---
EXAM: AP View of the chest DATE: 01/14/2021 7:46 PM INDICATION: Reason: EDEMA / Spl. Instructions: / History: COMPARISON: 12/20/2020, 11/11/2019 FINDINGS: Right IJ catheter remains within the right atrium. Cardiac generator pack obscures a portion of the l eft chest with leads in stable position. Heart is mildly enlarged. Atherosclerotic calcifications of aorta are seen. Patchy opacities right an d left lung base likely atelectasis or consolidation. Trace right pleural effusion. No left pleural e ffusion. No pneumothorax. Metallic densities overlying the left chest likely foreign bodies. IMPRESSION: 1. Cardiomegaly with bilateral lung base opacities likely pulmonary edema although atelectasis or co nsolidation have similar appearance. Electronically signed by: Cristino Bean MD (01/14/2021 8:33 PM) MARILEE
[2021-01-15 00:56] VITALS: BP 172/83
[2021-01-15] MEDS ORDERED: ACETAMINOPHEN 325 MG TABLET. PO PRN (01:00)
[2021-01-15] MEDS ORDERED: MAGNESIUM HYDROXIDE 2,400 MG/30 ML ORAL.SUSP. PO PRN (01:00)
[2021-01-15] MEDS ORDERED: ONDANSETRON PF 4 MG/2 ML VIAL. IVP PRN (01:00)
[2021-01-15] MEDS ORDERED: CALCIUM CARBONATE 500 MG TAB.CHEW PO PRN (01:00)
[2021-01-15] MEDS ORDERED: DEXTROSE 50% 25 GM / 50ML DISP.SYRIN. IV PRN (01:15)
[2021-01-15] MEDS ORDERED: traMADol 50 MG TABLET PO PRN (01:15)
[2021-01-15] MEDS ORDERED: IV DEXTROSE 5% 250 ML BAG. IV PRN (01:15)
[2021-01-15 02:40] VITALS: BP 152/81
[2021-01-15 07:00] VITALS: BP 138/84
--- NOTE | 2021-01-15 07:24 | PDOC1 ---
History and Physical Date of Admission Date of Admission DATE: 01/15/21 TIME: 07:14 Identification/Chief Complaint Chief Complaint Lower extremity edema, shortness of breath Source Source: Patient History of Present Illness History of Present Illness Mr Nunn is a 75 year old male [employer] [employer] with PMHx DM 2, PVD, A. fib, SSS status post PPM placement, morbid obesity, OHS/ROBB chronic diastolic CHF, HTN, HLD, new ESRD who was sent here from [facility] for evaluation. He was recently initiated on hemodialysis outpatient to be initiated Sunday and has had complications with this as he showed up on 01/12/2021 for his first scheduled outpatient session was told he was not on the schedule and they did not have a [employer] lift to move him into his dialysis chair even if he did have a chair time and sent back to [facility], he returned on 01/14/2021 and a [employer] lift did not have lift net available to transport him into his dialysis chair and he was sent back to [facility] and told to come to the emergency department for dialysis. He complains of worsening lower extremity edema and shortness of breath that has been progressive he has been gaining weight. Bilateral feet hurt. EKG ventricularly paced rhythm 60 bpm no P waves detectable. Chest radiograph cardiomegaly right-sided tunneled HD catheter, pulmonary edema. Labs WBC 9.7, Hb 8.1, platelets 210, NA 141, K4, BUN 39, CR 55, glucose 101, troponin 0.039, albumin 2.6 He had a long complicated hospital stay with progression to ESRD initiated on dialysis 01/04/2021 via tunneled HDC and s/p sharp left heel debridement on 12/30/2020 with wound VAC placed on left lower extremity. Upon chart review patient was seen in November 04 09/12/2020 for GI bleed.. Eliquis was actually restarted on 11/09/2020. And also had a pacemaker placed on 11/09/2020 and tolerated procedure well. Admitted for further care given multiple missed dialysis sessions since discharge and fluid overload. Past Medical History Cardiovascular: AFIB, CAD, CHF, HTN, Hyperlipidemia CENTRAL NERVOUS SYSTEM: Periperal neuropathy GI: GERD, GI bleed Heme/Onc: Anemia NOS Psych: Anxiety, Depression Rheumatologic: Gout Renal/: Chronic renal insuff Endocrine: Diabetes Past Surgical History Past Surgical History: Pacemaker Family History Family History: Heart Disease, Hypertension Social History ALCOHOL: none Drugs: None Current Problem List Problem List Problems Medical Problems: (1) Missed dialysis Status: Acute (2) Pulmonary edema Status: Acute Current Medications Current Medications Current Medications Aspirin (Ecotrin) 81 mg DAILYWBKFT PO ; Start 01/15/21 at 08:00 Atorvastatin Calcium (Lipitor) 40 mg HS PO ; Start 01/15/21 at 21:00 Hydralazine HCl (Apresoline) 25 mg TID PO ; Start 01/15/21 at 09:00 Metoprolol Succinate (Toprol Xl) 25 mg DAILY PO ; Start 01/15/21 at 09:00 Pantoprazole Sodium (Protonix) 40 mg DAILYAC PO ; Start 01/15/21 at 07:30 Apixaban (Eliquis) 2.5 mg BID PO ; Start 01/15/21 at 09:00 Ondansetron HCl (Zofran) 4 mg PRN Q6HRS PRN IVP NAUSEA/VOMITING; Start 01/15/21 at 01:00 Calcium Carbonate/ Glycine (Tums) 500 mg PRN Q3HRS PRN PO UPSET STOMACH; Start 01/15/21 at 01:00 Acetaminophen (Tylenol) 650 mg PRN Q6HRS PRN PO Headaches, Temp > 101.5F; Start 01/15/21 at 01:00 Magnesium Hydroxide (Milk Of Magnesia) 2,400 mg PRN Q12HR PRN PO CONSTIPATION; Start 01/15/21 at 01:00 Tramadol HCl (Ultram) 50 mg PRN Q6HRS PRN PO PAIN; Start 01/15/21 at 01:15 Insulin Glargine (Lantus Syringe) 15 unit QHS SQ ; Start 01/15/21 at 21:00 Insulin Human Lispro (HumaLOG) 0-7 UNITS TIDWMEALS SQ ; Start 01/15/21 at 08:00 Dextrose (Dextrose 50%-Water Syringe) 12.5 gm PRN Q15MIN PRN IV SEE COMMENTS; Start 01/15/21 at 01:15 Dextrose (Iv Dextrose 5%) 250 ml PRN Q15MIN PRN IV SEE COMMENTS; Start 01/15/21 at 01:15; Status UNV Active Scripts Active Omeprazole Magnesium 20 Mg Capsule.dr 1 Cap PO DAILY 30 Days Culturelle (Lactobacillus Rhamnosus Gg) 1 Each Cap.sprink 1 Cap PO BID 14 Days Aspirin Ec (Aspirin) 81 Mg Tablet.dr 81 Mg PO DAILYWBKFT 30 Days Doxycycline Hyclate 100 Mg Tablet 100 Mg PO BID 14 Days Amox Tr-K Clv 500-125 Mg Tab (Amoxicillin/Potassium Clav) 1 Each Tablet 1 Tab PO DAILY 14 Days Lantus (Insulin Glargine,Hum.rec.anlog) 100 Unit/1 Ml Vial 15 Unit SQ QHS 30 Days Acetaminophen Supp (Acetaminophen) 650 Mg Supp.rect 650 Mg DE PRN Q4HRS PRN 30 Days Hydralazine Hcl 25 Mg Tablet 25 Mg PO TID 30 Days Reported Vitamin C (Ascorbic Acid) 500 Mg Capsule 500 Mg PO BID Senokot (Sennosides) 8.6 Mg Tablet 1 Tab PO BID PRN 20 Days Nystatin 15 Gm Powder 1 Daniela TP BID 7 Days apply to affected area(s) Zoloft (Sertraline Hcl) 50 Mg Tablet 50 Mg PO DAILY Metoprolol Succinate ( Xl ) (Metoprolol Succinate) 25 Mg Tab.er.24h 25 Mg PO DAILY Eliquis (Apixaban) 5 Mg Tablet 2.5 Mg PO BID Slow Release Iron (Ferrous Sulfate) 160 Mg Tablet.er 160 Mg PO DAILY Buspirone Hcl 10 Mg Tablet 1 Tab PO PRN DAILY PRN Atorvastatin Calcium 40 Mg Tablet 40 Mg PO HS Allergies Allergies: Coded Allergies: Sulfa (Sulfonamide Antibiotics) (Verified Adverse Reaction, Intermediate, Nausea and Vomiting, 12/21/20) Vitals Vitals Vital Signs Date Time Temp Pulse Resp B/P (MAP) Pulse Ox O2 Delivery O2 Flow Rate FiO2 01/15/21 02:40 98.1 61 18 152/81 (104) 96 Room Air 98.1 Labs Labs Laboratory Tests Test 01/14/21 19:45 White Blood Count 9.7 x10^3/uL (4.0-11.0) Red Blood Count 2.79 x10^6/uL (4.30-5.70) Hemoglobin 8.1 g/dL (13.0-17.5) Hematocrit 24.5 % (39.0-53.0) Mean Corpuscular Volume 88 fL (79-100) Mean Corpuscular Hemoglobin 29 pg (25-35) Mean Corpuscular Hemoglobin Concent 33 g/dL (31-37) Red Cell Distribution Width 17.7 % (11.5-14.5) Platelet Count 210 x10^3/uL (140-400) Neutrophils (%) (Auto) 65 % (31-73) Lymphocytes (%) (Auto) 18 % (24-48) Monocytes (%) (Auto) 12 % (0-9) Eosinophils (%) (Auto) 5 % (0-3) Basophils (%) (Auto) 1 % (0-3) Neutrophils # (Auto) 6.3 x10^3/uL (1.8-7.7) Lymphocytes # (Auto) 1.7 x10^3/uL (1.0-4.8) Monocytes # (Auto) 1.1 x10^3/uL (0.0-1.1) Eosinophils # (Auto) 0.5 x10^3/uL (0.0-0.7) Basophils # (Auto) 0.1 x10^3/uL (0.0-0.2) Sodium Level 140 mmol/L (136-145) Potassium Level 4.0 mmol/L (3.5-5.1) Chloride Level 104 mmol/L (98-107) Carbon Dioxide Level 28 mmol/L (21-32) Anion Gap 8 (6-14) Blood Urea Nitrogen 39 mg/dL (8-26) Creatinine 5.5 mg/dL (0.7-1.3) Estimated GFR (Cockcroft-Gault) 10.2 BUN/Creatinine Ratio 7 (6-20) Glucose Level 101 mg/dL (70-99) Lactic Acid Level 1.3 mmol/L (0.4-2.0) Calcium Level 8.3 mg/dL (8.5-10.1) Magnesium Level 2.1 mg/dL (1.8-2.4) Total Bilirubin 0.8 mg/dL (0.2-1.0) Aspartate Amino Transf (AST/SGOT) 18 U/L (15-37) Alanine Aminotransferase (ALT/SGPT) 11 U/L (16-63) Alkaline Phosphatase 134 U/L (46-116) Troponin I Quantitative 0.039 ng/mL (0.000-0.055) Total Protein 6.2 g/dL (6.4-8.2) Albumin 2.6 g/dL (3.4-5.0) Albumin/Globulin Ratio 0.7 (1.0-1.7) Laboratory Tests Test 01/14/21 19:45 White Blood Count 9.7 x10^3/uL (4.0-11.0) Red Blood Count 2.79 x10^6/uL (4.30-5.70) Hemoglobin 8.1 g/dL (13.0-17.5) Hematocrit 24.5 % (39.0-53.0) Mean Corpuscular Volume 88 fL (79-100) Mean Corpuscular Hemoglobin 29 pg (25-35) Mean Corpuscular Hemoglobin Concent 33 g/dL (31-37) Red Cell Distribution Width 17.7 % (11.5-14.5) Platelet Count 210 x10^3/uL (140-400) Neutrophils (%) (Auto) 65 % (31-73) Lymphocytes (%) (Auto) 18 % (24-48) Monocytes (%) (Auto) 12 % (0-9) Eosinophils (%) (Auto) 5 % (0-3) Basophils (%) (Auto) 1 % (0-3) Neutrophils # (Auto) 6.3 x10^3/uL (1.8-7.7) Lymphocytes # (Auto) 1.7 x10^3/uL (1.0-4.8) Monocytes # (Auto) 1.1 x10^3/uL (0.0-1.1) Eosinophils # (Auto) 0.5 x10^3/uL (0.0-0.7) Basophils # (Auto) 0.1 x10^3/uL (0.0-0.2) Sodium Level 140 mmol/L (136-145) Potassium Level 4.0 mmol/L (3.5-5.1) Chloride Level 104 mmol/L (98-107) Carbon Dioxide Level 28 mmol/L (21-32) Anion Gap 8 (6-14) Blood Urea Nitrogen 39 mg/dL (8-26) Creatinine 5.5 mg/dL (0.7-1.3) Estimated GFR (Cockcroft-Gault) 10.2 BUN/Creatinine Ratio 7 (6-20) Glucose Level 101 mg/dL (70-99) Lactic Acid Level 1.3 mmol/L (0.4-2.0) Calcium Level 8.3 mg/dL (8.5-10.1) Magnesium Level 2.1 mg/dL (1.8-2.4) Total Bilirubin 0.8 mg/dL (0.2-1.0) Aspartate Amino Transf (AST/SGOT) 18 U/L (15-37) Alanine Aminotransferase (ALT/SGPT) 11 U/L (16-63) Alkaline Phosphatase 134 U/L (46-116) Troponin I Quantitative 0.039 ng/mL (0.000-0.055) Total Protein 6.2 g/dL (6.4-8.2) Albumin 2.6 g/dL (3.4-5.0) Albumin/Globulin Ratio 0.7 (1.0-1.7) Images Images Chest radiograph: Right IJ catheter remains within the right atrium. Cardiac generator pack obscures a portion of the left chest with leads in stable position. Heart is mildly enlarged. Atherosclerotic calcifications of aorta are seen. Pat edmundo opacities right and left lung base likely atelectasis or consolidation. Trace right pleural effusion. No left pleural effusion. No pneumothorax. Metallic densities overlying the left chest likely foreign bodies. IMPRESSION: 1. Cardiomegaly with bilateral lung base opacities likely pulmonary edema although atelectasis or consolidation have similar appearance. VTE Prophylaxis Ordered VTE Prophylaxis Devices: Contraindicated VTE Pharmacological Prophylaxi: Yes Assessment/Plan Assessment/Plan A/P: Acute volume overload -needs dialysis Acute on chronic CHF exacerbation -due to fluid overload from missed dialysis sessions need ultrafiltration ESRD on HD - MWF via RIJ tunneled catheter placed 01/04/2021 by IR Normocytic anemia, possible chronic GI blood loss with EGD showing antral gastric ulcer s/p coil Left lower extremity wound ulcer with dry gangrene - s/p sharp debridement in december on the , recovering with wound vac. Does have RLE superficial wounds as well. To be on augmentin and doxycycline PO an additional 4 days Severe protein malnutrition - home health administrator to see Diabetes mellitus type 2 - basal bolus plus insulin PVD - above A. fib - eliquis, BB SSS status post PPM placement - stable Morbid obesity - counseled on lifestyle OHS/ROBB - needs outpatient sleep study HTN - cont treatment HLD - cont statin Eliquis for DVT prophylaxis ADA diet Full code Surrogate decision maker is Phuong Mathis Dispo - in for dialysis Justifications for Admission Other Justification CHF exacerbation JAKE PATTON MD Jan 15, 2021 07:24
[2021-01-15] MEDS ORDERED: busPIRone 10 MG TABLET. PO PRN (07:30)
[2021-01-15] MEDS: INSULIN LISPRO 300 UNITS/3 ML VIAL. SQ SCH ×3 (08:00→17:00)
[2021-01-15] MEDS: NYSTATIN TOPICAL POWDER 15GM BOTTLE. TP SCH ×2 (09:43→21:00)
[2021-01-15] MEDS: ASPIRIN ENTERIC COATED 81 MG TABLET.DR. PO SCH (09:44)
[2021-01-15] MEDS: APIXABAN 2.5 MG TABLET. PO SCH ×2 (09:44→21:20)
[2021-01-15] MEDS: METOPROLOL SUCC 24HR ER 25 MG TAB.ER.24H. PO SCH (09:44)
[2021-01-15] MEDS: SERTRALINE 50 MG TABLET. PO SCH (09:45)
[2021-01-15] MEDS: hydrALAZINE 25 MG TABLET PO SCH ×3 (09:45→21:20)
[2021-01-15] MEDS: AMOXICILLIN/K CLAV 500/125MG TABLET. PO SCH (09:45)
[2021-01-15] MEDS: DOXYCYCLINE HYCLATE 100 MG TABLET PO SCH ×2 (09:45→21:20)
[2021-01-15] MEDS: PANTOPRAZOLE 40 MG TABLET.DR. PO SCH (09:46)
[2021-01-15] MEDS: LACTOBACILLUS RHAMNOSUS GG 1 CAPSULE. PO SCH ×2 (09:46→21:20)
[2021-01-15 11:00] VITALS: BP 116/59
[2021-01-15] MEDS ORDERED: IV NORMAL SALINE 1000ML BAG 1,000 ML IV PRN ×2 (12:45)
[2021-01-15] MEDS ORDERED: DIALYSIS PATIENT. MC PRN ×2 (12:45)
[2021-01-15] MEDS ORDERED: ALBUMIN HUMAN 25% 200 ML IV PRN (12:45)
[2021-01-15] MEDS ORDERED: diphenhydrAMINE 50 MG/ML VIAL IV PRN ×2 (12:45)
[2021-01-15] MEDS ORDERED: ACETAMINOPHEN 500 MG TABLET PO PRN (12:45)
--- NOTE | 2021-01-15 12:52 | PDOC2 ---
CONSULT Date of Consult Date of Consult DATE: 01/15/21 TIME: 12:46 Reason for Consult Reason for Consult: ESRD AND SOB WITH EDEMA Referring Physician Referring Physician: GÓMEZ Identification/Chief Complaint Chief Complaint SOB AND MISSED HD Source Source: Chart review, Patient History of Present Illness Reason for Visit: THIS IS A 75 YR OLD WITH ESRD. NEW ONSET ESRD DX EARLIER THIS MONTH AND WAS DISCHARGED FROM HERE JUST LAST WEEK. SINCE THEN HE HAS BEEN AT . HE WENT TO HIS OP HD CENTER BUT HAS BEEN UNABLE TO GET HD DUE TO ISSUES WITH TRANSFERRING FROM HIS WHEEL CHAIR TO THE DIALYSIS CHAIR. HE HAS ESRD DUE TO DM II. CURRENTLY HAS LE EDEMA AND CHF ON CXRAY. LABS ARE C/W HIS ESRD. ALSO HAS ANEMIA OF ESRD Past Medical History Cardiovascular: AFIB, CAD, CHF, HTN, Hyperlipidemia CENTRAL NERVOUS SYSTEM: Periperal neuropathy GI: GERD, GI bleed Heme/Onc: Anemia NOS Psych: Anxiety, Depression Rheumatologic: Gout Renal/: Chronic renal failure Endocrine: Diabetes, Hyperparathyroidism Past Surgical History Past Surgical History HX OF RIGHT IJ TDC. Past Surgical History: Pacemaker Family History Family History: Heart Disease, Hypertension Social History ALCOHOL: none Drugs: None Lives: [facility] Current Problem List Problem List Problems Medical Problems: (1) Missed dialysis Status: Acute (2) Pulmonary edema Status: Acute Current Medications Current Medications Current Medications Aspirin (Ecotrin) 81 mg DAILYWBKFT PO Last administered on 01/15/21at 09:44; Start 01/15/21 at 08:00 Atorvastatin Calcium (Lipitor) 40 mg HS PO ; Start 01/15/21 at 21:00 Hydralazine HCl (Apresoline) 25 mg TID PO Last administered on 01/15/21at 09:45; Start 01/15/21 at 09:00 Metoprolol Succinate (Toprol Xl) 25 mg DAILY PO Last administered on 01/15/21at 09:44; Start 01/15/21 at 09:00 Pantoprazole Sodium (Protonix) 40 mg DAILYAC PO Last administered on 01/15/21at 09:46; Start 01/15/21 at 07:30 Apixaban (Eliquis) 2.5 mg BID PO Last administered on 01/15/21at 09:44; Start 01/15/21 at 09:00 Ondansetron HCl (Zofran) 4 mg PRN Q6HRS PRN IVP NAUSEA/VOMITING; Start 01/15/21 at 01:00 Calcium Carbonate/ Glycine (Tums) 500 mg PRN Q3HRS PRN PO UPSET STOMACH; Start 01/15/21 at 01:00 Acetaminophen (Tylenol) 650 mg PRN Q6HRS PRN PO Headaches, Temp > 101.5F; Start 01/15/21 at 01:00 Magnesium Hydroxide (Milk Of Magnesia) 2,400 mg PRN Q12HR PRN PO CONSTIPATION; Start 01/15/21 at 01:00 Tramadol HCl (Ultram) 50 mg PRN Q6HRS PRN PO PAIN; Start 01/15/21 at 01:15 Insulin Glargine (Lantus Syringe) 15 unit QHS SQ ; Start 01/15/21 at 21:00 Insulin Human Lispro (HumaLOG) 0-7 UNITS TIDWMEALS SQ ; Start 01/15/21 at 08:00 Dextrose (Dextrose 50%-Water Syringe) 12.5 gm PRN Q15MIN PRN IV SEE COMMENTS; Start 01/15/21 at 01:15 Dextrose (Iv Dextrose 5%) 250 ml PRN Q15MIN PRN IV SEE COMMENTS; Start 01/15/21 at 01:15; Status UNV Amoxicillin/ Clavulanate Potassium (Augmentin 500/ 125mg) 1 tab DAILY PO Last administered on 01/15/21at 09:45; Start 01/15/21 at 09:00; Stop 01/19/21 at 08:59 Buspirone HCl (Buspar) 10 mg PRN DAILY PRN PO ANXIETY / AGITATION; Start 01/15/21 at 07:30 Doxycycline Hyclate (Vibra-Tab) 100 mg BID PO Last administered on 01/15/21at 09:45; Start 01/15/21 at 09:00; Stop 01/19/21 at 08:59 Insulin Glargine (Lantus Syringe) 15 unit QHS SQ ; Start 01/15/21 at 21:00; Status Cancel Lactobacillus Rhamnosus (Culturelle) 1 cap BID PO Last administered on 01/15/21at 09:46; Start 01/15/21 at 09:00 Nystatin (Nystop) 1 daniela BID TP Last administered on 01/15/21at 09:43; Start 01/15/21 at 09:00 Sertraline HCl (Zoloft) 50 mg DAILY PO Last administered on 01/15/21at 09:45; Start 01/15/21 at 09:00 Active Scripts Active Omeprazole Magnesium 20 Mg Capsule. 1 Cap PO DAILY 30 Days Culturelle (Lactobacillus Rhamnosus Gg) 1 Each Cap.sprink 1 Cap PO BID 14 Days Aspirin Ec (Aspirin) 81 Mg Tablet.dr 81 Mg PO DAILYWBKFT 30 Days Doxycycline Hyclate 100 Mg Tablet 100 Mg PO BID 14 Days Amox Tr-K Clv 500-125 Mg Tab (Amoxicillin/Potassium Clav) 1 Each Tablet 1 Tab PO DAILY 14 Days Lantus (Insulin Glargine,Hum.rec.anlog) 100 Unit/1 Ml Vial 15 Unit SQ QHS 30 Days Acetaminophen Supp (Acetaminophen) 650 Mg Supp.rect 650 Mg MS PRN Q4HRS PRN 30 Days Hydralazine Hcl 25 Mg Tablet 25 Mg PO TID 30 Days Reported Vitamin C (Ascorbic Acid) 500 Mg Capsule 500 Mg PO BID Senokot (Sennosides) 8.6 Mg Tablet 1 Tab PO BID PRN 20 Days Nystatin 15 Gm Powder 1 Daniela TP BID 7 Days apply to affected area(s) Zoloft (Sertraline Hcl) 50 Mg Tablet 50 Mg PO DAILY Metoprolol Succinate ( Xl ) (Metoprolol Succinate) 25 Mg Tab.er.24h 25 Mg PO DAILY Eliquis (Apixaban) 5 Mg Tablet 2.5 Mg PO BID Slow Release Iron (Ferrous Sulfate) 160 Mg Tablet.er 160 Mg PO DAILY Buspirone Hcl 10 Mg Tablet 1 Tab PO PRN DAILY PRN Atorvastatin Calcium 40 Mg Tablet 40 Mg PO HS Allergies Allergies: Coded Allergies: Sulfa (Sulfonamide Antibiotics) (Verified Adverse Reaction, Intermediate, Nausea and Vomiting, 12/21/20) ROS General: YES: Fatigue, Malaise PSYCHOLOGICAL ROS: YES: Anxiety Eyes: Yes Decreased vision ALLERGY AND IMMUNOLOGY: YES: Seasonal Allergies Respiratory: YES: Cough, Orthopnea, Shortness of breath Gastrointestinal: Yes Constipation Genitourinary: YES Other (ANURIA) Musculoskeletal: Yes Muscular Weakness Neurological: Yes Weakness Skin: Yes Dry Skin Physical Exam General: Alert, Oriented X3, Cooperative, mild distress HEENT: Atraumatic, PERRLA Lungs: Other (DECREASED AT BASES) Heart: Regular rate Abdomen: Normal bowel sounds, Soft, No tenderness Extremities: No cyanosis Skin: No rashes Neuro: Normal speech Psych/Mental Status: Mental status NL, Mood NL MUSCULOSKELETAL: Other (2+ EDEMA, LEFT FOOT HEEL WOUND VAC) Vitals VITALS Vital Signs Date Time Temp Pulse Resp B/P (MAP) Pulse Ox O2 Delivery O2 Flow Rate FiO2 01/15/21 11:00 97.7 60 18 116/59 (78) 96 Room Air 97.7 Labs Labs Laboratory Tests Test 01/14/21 19:45 01/15/21 08:01 01/15/21 08:25 01/15/21 11:43 White Blood Count 9.7 x10^3/uL (4.0-11.0) Red Blood Count 2.79 x10^6/uL (4.30-5.70) Hemoglobin 8.1 g/dL (13.0-17.5) Hematocrit 24.5 % (39.0-53.0) Mean Corpuscular Volume 88 fL (79-100) Mean Corpuscular Hemoglobin 29 pg (25-35) Mean Corpuscular Hemoglobin Concent 33 g/dL (31-37) Red Cell Distribution Width 17.7 % (11.5-14.5) Platelet Count 210 x10^3/uL (140-400) Neutrophils (%) (Auto) 65 % (31-73) Lymphocytes (%) (Auto) 18 % (24-48) Monocytes (%) (Auto) 12 % (0-9) Eosinophils (%) (Auto) 5 % (0-3) Basophils (%) (Auto) 1 % (0-3) Neutrophils # (Auto) 6.3 x10^3/uL (1.8-7.7) Lymphocytes # (Auto) 1.7 x10^3/uL (1.0-4.8) Monocytes # (Auto) 1.1 x10^3/uL (0.0-1.1) Eosinophils # (Auto) 0.5 x10^3/uL (0.0-0.7) Basophils # (Auto) 0.1 x10^3/uL (0.0-0.2) Sodium Level 140 mmol/L (136-145) Potassium Level 4.0 mmol/L (3.5-5.1) Chloride Level 104 mmol/L (98-107) Carbon Dioxide Level 28 mmol/L (21-32) Anion Gap 8 (6-14) Blood Urea Nitrogen 39 mg/dL (8-26) Creatinine 5.5 mg/dL (0.7-1.3) Estimated GFR (Cockcroft-Gault) 10.2 BUN/Creatinine Ratio 7 (6-20) Glucose Level 101 mg/dL (70-99) Lactic Acid Level 1.3 mmol/L (0.4-2.0) Calcium Level 8.3 mg/dL (8.5-10.1) Magnesium Level 2.1 mg/dL (1.8-2.4) Total Bilirubin 0.8 mg/dL (0.2-1.0) Aspartate Amino Transf (AST/SGOT) 18 U/L (15-37) Alanine Aminotransferase (ALT/SGPT) 11 U/L (16-63) Alkaline Phosphatase 134 U/L (46-116) Troponin I Quantitative 0.039 ng/mL (0.000-0.055) 0.042 ng/mL (0.000-0.055) Total Protein 6.2 g/dL (6.4-8.2) Albumin 2.6 g/dL (3.4-5.0) Albumin/Globulin Ratio 0.7 (1.0-1.7) Glucose (Fingerstick) 88 mg/dL (70-99) 92 mg/dL (70-99) QH-Nfx-P-Type Natriuretic Peptide > 87969 pg/mL (0-124) Laboratory Tests Test 01/14/21 19:45 01/15/21 08:01 01/15/21 08:25 01/15/21 11:43 White Blood Count 9.7 x10^3/uL (4.0-11.0) Red Blood Count 2.79 x10^6/uL (4.30-5.70) Hemoglobin 8.1 g/dL (13.0-17.5) Hematocrit 24.5 % (39.0-53.0) Mean Corpuscular Volume 88 fL (79-100) Mean Corpuscular Hemoglobin 29 pg (25-35) Mean Corpuscular Hemoglobin Concent 33 g/dL (31-37) Red Cell Distribution Width 17.7 % (11.5-14.5) Platelet Count 210 x10^3/uL (140-400) Neutrophils (%) (Auto) 65 % (31-73) Lymphocytes (%) (Auto) 18 % (24-48) Monocytes (%) (Auto) 12 % (0-9) Eosinophils (%) (Auto) 5 % (0-3) Basophils (%) (Auto) 1 % (0-3) Neutrophils # (Auto) 6.3 x10^3/uL (1.8-7.7) Lymphocytes # (Auto) 1.7 x10^3/uL (1.0-4.8) Monocytes # (Auto) 1.1 x10^3/uL (0.0-1.1) Eosinophils # (Auto) 0.5 x10^3/uL (0.0-0.7) Basophils # (Auto) 0.1 x10^3/uL (0.0-0.2) Sodium Level 140 mmol/L (136-145) Potassium Level 4.0 mmol/L (3.5-5.1) Chloride Level 104 mmol/L (98-107) Carbon Dioxide Level 28 mmol/L (21-32) Anion Gap 8 (6-14) Blood Urea Nitrogen 39 mg/dL (8-26) Creatinine 5.5 mg/dL (0.7-1.3) Estimated GFR (Cockcroft-Gault) 10.2 BUN/Creatinine Ratio 7 (6-20) Glucose Level 101 mg/dL (70-99) Lactic Acid Level 1.3 mmol/L (0.4-2.0) Calcium Level 8.3 mg/dL (8.5-10.1) Magnesium Level 2.1 mg/dL (1.8-2.4) Total Bilirubin 0.8 mg/dL (0.2-1.0) Aspartate Amino Transf (AST/SGOT) 18 U/L (15-37) Alanine Aminotransferase (ALT/SGPT) 11 U/L (16-63) Alkaline Phosphatase 134 U/L (46-116) Troponin I Quantitative 0.039 ng/mL (0.000-0.055) 0.042 ng/mL (0.000-0.055) Total Protein 6.2 g/dL (6.4-8.2) Albumin 2.6 g/dL (3.4-5.0) Albumin/Globulin Ratio 0.7 (1.0-1.7) Glucose (Fingerstick) 88 mg/dL (70-99) 92 mg/dL (70-99) FN-San-P-Type Natriuretic Peptide > 59049 pg/mL (0-124) Assessment/Plan Assessment/Plan IMP CHF-ACUTE ON CHRONIC DIASTOLIC ANEMIA OF ESRD LEFT HEEL WOUND ESRD DM II HTN PLAN HD TODAY UF TO TW START ARANESP WILL ASK SW TO EVALUATE OP HD ISSUE ON SUNDAY WOUND CARE WILL FOLLOW ALONDRA GREEN MD Jan 15, 2021 12:52
[2021-01-15 19:00] VITALS: BP 138/60
[2021-01-15] MEDS ORDERED: INSULIN GLARGINE SYRINGE. SQ SCH (21:00)
[2021-01-15] MEDS: INSULIN GLARGINE SYRINGE. SQ SCH (21:00)
[2021-01-15] MEDS ORDERED: DARBEPOETIN ALFA 60 MCG/0.3 ML DISP.SYRIN. SQ SCH (21:00)
[2021-01-15] MEDS: ATORVASTATIN CALCIUM 40 MG TABLET. PO SCH (21:20)
[2021-01-15 22:54] VITALS: BP 121/56
[2021-01-16 03:30] VITALS: BP 137/63
[2021-01-16 07:00] VITALS: BP 130/48
[2021-01-16 07:05] LABS: BASO # 0.1 x10^3/uL (0.0-0.2); BASO % 1 % (0-3); EOS # 0.4 x10^3/uL (0.0-0.7); EOS % 4 % (0-3); HEMATOCRIT 21.1 % (39.0-53.0); LYMPH # 1.5 x10^3/uL (1.0-4.8); LYMPH % 18 % (24-48); MEAN CORPUSCULAR HEMOGLOBIN 29 pg (25-35); MEAN CORPUSCULAR HGB CONC 33 g/dL (31-37); MEAN CORPUSCULAR VOLUME 87 fL (79-100); MONO # 1.1 x10^3/uL (0.0-1.1); MONO % 13 % (0-9); NEUT # 5.3 x10^3/uL (1.8-7.7); NEUT % 64 % (31-73); PLATELET COUNT 183 x10^3/uL (140-400); RED BLOOD COUNT 2.43 x10^6/uL (4.30-5.70); RED CELL DISTRIBUTION WIDTH 17.9 % (11.5-14.5); WHITE BLOOD COUNT 8.3 x10^3/uL (4.0-11.0)
--- NOTE | 2021-01-16 07:35 | PDOC ---
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 Does have RLE superficial wounds as well. 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 fib - WILIAN lazar. Hold eliquis SSS status post PPM placement - stable Morbid obesity - counseled on lifestyle OHS/ROBB - needs outpatient sleep study HTN - cont treatment HLD - cont statin Eliquis for DVT prophylaxis ADA diet Full code Surrogate decision maker is Phuong Mathis Dispo - in for dialysis History of Present Illness History of Present Illness Mr Nunn is a 75 year old male [place] [employer] with PMHx DM 2, PVD, A. fib, SSS status post PPM placement, morbid obesity, OHS/ROBB chronic diastolic CHF, HTN, HLD, new ESRD who was sent here from [facility] for evaluation. He was recently initiated on hemodialysis outpatient to be initiated Sunday and has had complications with this as he showed up on 01/12/2021 for his first scheduled outpatient session was told he was not on the schedule and they did not have a [employer] lift to move him into his dialysis chair even if he did have a chair time and sent back to [facility], he returned on 01/14/2021 and a [employer] lift did not have lift net available to transport him into his dialysis chair and he was sent back to [facility] and told to come to the emergency department for dialysis. He complains of worsening lower extremity edema and shortness of breath that has been progressive he has been gaining weight. Bilateral feet hurt. EKG ventricularly paced rhythm 60 bpm no P waves detectable. Chest radiograph cardiomegaly right-sided tunneled HD catheter, pulmonary edema. Labs WBC 9.7, Hb 8.1, platelets 210, NA 141, K4, BUN 39, CR 55, glucose 101, troponin 0.039, albumin 2.6 He had a long complicated hospital stay with progression to ESRD initiated on dialysis 01/04/2021 via tunneled HDC and s/p sharp left heel debridement on 12/30/2020 with wound VAC placed on left lower extremity. Upon chart review patient was seen in November 04 09/12/2020 for GI bleed.. Eliquis was actually restarted on 11/09/2020. And also had a pacemaker placed on 11/09/2020 and tolerated procedure well. Admitted for further care given multiple missed dialysis sessions since discharge and fluid overload. Afebrile overnight. Hb down to 7 from 8.1. No clear source of bleeding. His shortness of breath and swelling improved today. Had a dark stool. Feeling weak. No cp Plan: Hold ASA and eliquis Plan for dialysis in AM, given his cardiac history needs blood transfusion, will give with dialysis given no clear active bleeding and history of fluid overload. Given aranesp today. Vitals/I&O Vitals/I&O: Vital Signs Date Time Temp Pulse Resp B/P (MAP) Pulse Ox O2 Delivery O2 Flow Rate FiO2 01/16/21 07:00 98.4 68 18 130/48 (75) 99 Room Air 98.4 I & O 01/15/21 01/15/21 01/16/21 15:00 23:00 07:00 Intake Total 300 ml 0 ml Output Total 75 ml Balance 225 ml 0 ml Physical Exam General: Alert, Oriented X3, Cooperative, mild distress Heart: Regular rate Lungs: Clear, Other Abdomen: Normal bowel sounds, Soft, No tenderness Extremities: No cyanosis Skin: No rashes Labs Labs: Laboratory Tests Test 01/15/21 08:01 01/15/21 08:25 01/15/21 11:43 01/15/21 17:10 Glucose (Fingerstick) 88 mg/dL (70-99) 92 mg/dL (70-99) 92 mg/dL (70-99) Troponin I Quantitative 0.042 ng/mL (0.000-0.055) FA-Gmf-Y-Type Natriuretic Peptide > 59915 pg/mL (0-124) Test 01/15/21 20:40 01/16/21 06:45 01/16/21 07:16 Glucose (Fingerstick) 109 mg/dL (70-99) 80 mg/dL (70-99) White Blood Count 8.3 x10^3/uL (4.0-11.0) Red Blood Count 2.43 x10^6/uL (4.30-5.70) Hemoglobin 7.0 g/dL (13.0-17.5) Hematocrit 21.1 % (39.0-53.0) Mean Corpuscular Volume 87 fL (79-100) Mean Corpuscular Hemoglobin 29 pg (25-35) Mean Corpuscular Hemoglobin Concent 33 g/dL (31-37) Red Cell Distribution Width 17.9 % (11.5-14.5) Platelet Count 183 x10^3/uL (140-400) Neutrophils (%) (Auto) 64 % (31-73) Lymphocytes (%) (Auto) 18 % (24-48) Monocytes (%) (Auto) 13 % (0-9) Eosinophils (%) (Auto) 4 % (0-3) Basophils (%) (Auto) 1 % (0-3) Neutrophils # (Auto) 5.3 x10^3/uL (1.8-7.7) Lymphocytes # (Auto) 1.5 x10^3/uL (1.0-4.8) Monocytes # (Auto) 1.1 x10^3/uL (0.0-1.1) Eosinophils # (Auto) 0.4 x10^3/uL (0.0-0.7) Basophils # (Auto) 0.1 x10^3/uL (0.0-0.2) Assessment and Plan Assessmemt and Plan Problems Medical Problems: (1) Missed dialysis Status: Acute (2) Pulmonary edema Status: Acute Comment Review of Relevant I have reviewed the following items mara (where applicable) has been applied. Medications: Current Medications Medications (Trade) Dose Ordered Sig/Redd Route PRN Reason Start Time Stop Time Status Last Admin Dose Admin Aspirin (Ecotrin) 81 mg DAILYWBKFT PO 01/15/21 08:00 01/15/21 09:44 Atorvastatin Calcium (Lipitor) 40 mg HS PO 01/15/21 21:00 01/15/21 21:20 Hydralazine HCl (Apresoline) 25 mg TID PO 01/15/21 09:00 01/15/21 21:20 Metoprolol Succinate (Toprol Xl) 25 mg DAILY PO 01/15/21 09:00 01/15/21 09:44 Apixaban (Eliquis) 2.5 mg BID PO 01/15/21 09:00 01/15/21 21:20 Insulin Glargine (Lantus Syringe) 15 unit QHS SQ 01/15/21 21:00 01/15/21 21:00 Amoxicillin/ Clavulanate Potassium (Augmentin 500/ 125mg) 1 tab DAILY PO 01/15/21 09:00 01/19/21 08:59 01/15/21 09:45 Doxycycline Hyclate (Vibra-Tab) 100 mg BID PO 01/15/21 09:00 01/19/21 08:59 01/15/21 21:20 Lactobacillus Rhamnosus (Culturelle) 1 cap BID PO 01/15/21 09:00 01/15/21 21:20 Nystatin (Nystop) 1 luna BID TP 01/15/21 09:00 01/15/21 21:00 Sertraline HCl (Zoloft) 50 mg DAILY PO 01/15/21 09:00 01/15/21 09:45 Darbepoetin Johnson (ARANESP for DIALYSIS PTS) 60 mcg Sa SQ 01/15/21 21:00 01/15/21 21:21 Justifications for Admission Other Justification CHF exacerbation JAKE PATTON MD Jan 16, 2021 07:34
[2021-01-16 07:38] LABS: CREATININE 3.9 mg/dL (0.7-1.3); GFR 15.2; POTASSIUM 3.7 mmol/L (3.5-5.1)
[2021-01-16] MEDS: ASPIRIN ENTERIC COATED 81 MG TABLET.DR. PO SCH (08:00)
[2021-01-16] MEDS: INSULIN LISPRO 300 UNITS/3 ML VIAL. SQ SCH ×3 (08:00→17:00)
[2021-01-16] MEDS: DOXYCYCLINE HYCLATE 100 MG TABLET PO SCH ×2 (08:54→21:04)
[2021-01-16] MEDS: PANTOPRAZOLE 40 MG TABLET.DR. PO SCH (08:54)
[2021-01-16] MEDS: SERTRALINE 50 MG TABLET. PO SCH (08:54)
[2021-01-16] MEDS: AMOXICILLIN/K CLAV 500/125MG TABLET. PO SCH (08:54)
[2021-01-16] MEDS: LACTOBACILLUS RHAMNOSUS GG 1 CAPSULE. PO SCH ×2 (08:54→21:04)
[2021-01-16] MEDS: METOPROLOL SUCC 24HR ER 25 MG TAB.ER.24H. PO SCH (08:54)
[2021-01-16] MEDS: NYSTATIN TOPICAL POWDER 15GM BOTTLE. TP SCH ×2 (08:55→21:00)
[2021-01-16] MEDS: APIXABAN 2.5 MG TABLET. PO SCH (08:55)
[2021-01-16] MEDS: hydrALAZINE 25 MG TABLET PO SCH ×3 (08:55→21:00)
--- NOTE | 2021-01-16 10:01 | PDOC ---
Renal-Progress Notes Subjective Notes Notes NO NEW COMPLAINTS History of Present Illness Hx of present illness STABLE Vitals Vitals Vital Signs Date Time Temp Pulse Resp B/P (MAP) Pulse Ox O2 Delivery O2 Flow Rate FiO2 01/16/21 08:55 68 130/48 01/16/21 07:00 98.4 18 99 Room Air 98.4 Weight Weight [ ] I.O. Intake and Output Intake and Output 01/16/21 07:00 Intake Total 300 ml Output Total 275 ml Balance 25 ml Intake Oral 300 ml Output Urine Total 275 ml # Voids 1 # Bowel Movements 3 Labs Labs Laboratory Tests Test 01/15/21 11:43 01/15/21 17:10 01/15/21 20:40 01/16/21 06:45 Glucose (Fingerstick) 92 mg/dL (70-99) 92 mg/dL (70-99) 109 mg/dL (70-99) White Blood Count 8.3 x10^3/uL (4.0-11.0) Red Blood Count 2.43 x10^6/uL (4.30-5.70) Hemoglobin 7.0 g/dL (13.0-17.5) Hematocrit 21.1 % (39.0-53.0) Mean Corpuscular Volume 87 fL (79-100) Mean Corpuscular Hemoglobin 29 pg (25-35) Mean Corpuscular Hemoglobin Concent 33 g/dL (31-37) Red Cell Distribution Width 17.9 % (11.5-14.5) Platelet Count 183 x10^3/uL (140-400) Neutrophils (%) (Auto) 64 % (31-73) Lymphocytes (%) (Auto) 18 % (24-48) Monocytes (%) (Auto) 13 % (0-9) Eosinophils (%) (Auto) 4 % (0-3) Basophils (%) (Auto) 1 % (0-3) Neutrophils # (Auto) 5.3 x10^3/uL (1.8-7.7) Lymphocytes # (Auto) 1.5 x10^3/uL (1.0-4.8) Monocytes # (Auto) 1.1 x10^3/uL (0.0-1.1) Eosinophils # (Auto) 0.4 x10^3/uL (0.0-0.7) Basophils # (Auto) 0.1 x10^3/uL (0.0-0.2) Sodium Level 142 mmol/L (136-145) Potassium Level 3.7 mmol/L (3.5-5.1) Chloride Level 106 mmol/L (98-107) Carbon Dioxide Level 30 mmol/L (21-32) Anion Gap 6 (6-14) Blood Urea Nitrogen 25 mg/dL (8-26) Creatinine 3.9 mg/dL (0.7-1.3) Estimated GFR (Cockcroft-Gault) 15.2 Glucose Level 76 mg/dL (70-99) Calcium Level 8.0 mg/dL (8.5-10.1) Lactate Dehydrogenase 221 U/L (85-227) Test 01/16/21 07:16 Glucose (Fingerstick) 80 mg/dL (70-99) Micro Micro Microbiology 01/15/21 Blood Culture - Preliminary, Resulted NO GROWTH AFTER 1 DAY Review of Systems Constitutional: yes: weakness, alert Ears/Nose/Throat: Yes: no symptom reported Eyes: Yes: no symptom reported Pulmonary: Yes dyspnea Cardiovascular: Yes no symptom reported Gastrointestional: Yes: no symptom reported Genitourinary: Yes: no symptom reported Musculoskeletal: Yes: joint pain Skin: Yes no symptom reported Psychiatric/Neurological: Yes: no symptom reported Physical Exam General Appearance: no apparent distress Skin: warm Respiratory: decreased breath sounds Heart: S1S2 Abdomen: soft Genitourinary: bladder flat Extremities: pulses present Neurology: alert, oriented Assessment Assessment IMP CHF-ACUTE ON CHRONIC DIASTOLIC ANEMIA OF ESRD LEFT HEEL WOUND ESRD DM II HTN PLAN HD TOMORROW NAWAF HERNANDEZ WILL ASK SW TO EVALUATE OP HD ISSUE ON SUNDAY WOUND CARE WILL FOLLOW ALONDRA GREEN MD Jan 16, 2021 10:01
[2021-01-16 10:18] VITALS: BP 144/58
[2021-01-16 15:00] VITALS: BP 123/80
[2021-01-16 18:43] LABS: FECAL OB PT POSITIVE (NEG)
[2021-01-16 19:00] VITALS: BP 92/56
[2021-01-16] MEDS: ATORVASTATIN CALCIUM 40 MG TABLET. PO SCH (21:04)
[2021-01-16] MEDS: INSULIN GLARGINE SYRINGE. SQ SCH (21:07)
[2021-01-16 22:54] VITALS: BP 119/52
[2021-01-17] VITALS (10 sets, daily range): BP systolic 115–140; BP diastolic 53–74
[2021-01-17 07:09] LABS: HEMATOCRIT 21.7 % (39.0-53.0); HEMOGLOBIN 7.2 g/dL (13.0-17.5); RED BLOOD COUNT 2.48 x10^6/uL (4.30-5.70); WHITE BLOOD COUNT 8.9 x10^3/uL (4.0-11.0)
[2021-01-17 07:22] LABS: CALCIUM 7.7 mg/dL (8.5-10.1); CREATININE 4.3 mg/dL (0.7-1.3); GFR 13.6; POTASSIUM 3.7 mmol/L (3.5-5.1)
[2021-01-17] MEDS: INSULIN LISPRO 300 UNITS/3 ML VIAL. SQ SCH ×3 (08:00→17:00)
--- NOTE | 2021-01-17 08:10 | PDOC ---
PROGRESS NOTES Date of Service: DATE: 01/17/21 TIME: 08:10 Chief Complaint Chief Complaint IMPRESSION Acute volume overload - improved with dialysis Acute on chronic CHF exacerbation -due to fluid overload from missed dialysis sessions need ultrafiltration ESRD on HD - MWF via RIJ tunneled catheter placed 01/04/2021 by IR Normocytic anemia, possible chronic GI blood loss with EGD showing antral gastric ulcer s/p coil - will transfuse for Hb < 8 in cardiac patient, wait until dialysis Left lower extremity wound ulcer with dry gangrene - s/p sharp debridement in december on the , recovering with wound vac. Does have RLE superficial wounds as well. 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 fib - WILIAN lazar. Hold eliquis SSS status post PPM placement - stable Morbid obesity - counseled on lifestyle OHS/ROBB - needs outpatient sleep study HTN - cont treatment HLD - cont statin PLAN Eliquis for DVT prophylaxis ADA diet Full code Surrogate decision maker is Phuong Mathis Dispo - in for dialysis Recommend GI follow up , GI CONSULTED 6-14 37 Min pt exam, chart review, > 50% of time spent with exam, chart review, pt care coordination History of Present Illness History of Present Illness Mr Nunn is a 75 year old male [place] [employer] with PMHx DM 2, PVD, A. fib, SSS status post PPM placement, morbid obesity, OHS/ROBB chronic diastolic C HF, HTN, HLD, new ESRD who was sent here from [facility] for evaluation. He was recently initiated on hemodialysis outpatient to be initiated Sunday and has had complications with this as he showed up on 01/12/2021 for his first scheduled outpatient session was told he was not on the schedule and they did not have a [employer] lift to move him into his dialysis chair even if he did have a chair time and sent back to [facility], he returned on 01/14/2021 and a [employer]a lift did not have lift net available to transport him into his dialysis chair and he was sent back to [facility] and told to come to the emergency department for dialysis. He complains of worsening lower extremity edema and shortness of breath that has been progressive he has been gaining weight. Bilateral feet hurt. EKG ventricularly paced rhythm 60 bpm no P waves detectable. Chest radiograph cardiomegaly right-sided tunneled HD catheter, pulmonary edema. Labs WBC 9.7, Hb 8.1, platelets 210, NA 141, K4, BUN 39, CR 55, glucose 101, troponin 0.039, albumin 2.6 He had a long complicated hospital stay with progression to ESRD initiated on dialysis 01/04/2021 via tunneled HDC and s/p sharp left heel debridement on 12/30/2020 with wound VAC placed on left lower extremity. Upon chart review patient was seen in November 04 09/12/2020 for GI bleed.. Eliquis was actually restarted on 11/09/2020. And also had a pacemaker placed on 11/09/2020 and tolerated procedure well. Admitted for further care given multiple missed dialysis sessions since discharge and fluid overload. Afebrile overnight. Hb down to 7 from 8.1. No clear source of bleeding. His shortness of breath and swelling improved today. Had a dark stool. Feeling weak. No cp Plan: Hold ASA and eliquis Plan for dialysis in AM, given his cardiac history needs blood transfusion, will give with dialysis given no clear active bleeding and history of fluid overload. Given aranesp today. Vitals Vitals Vital Signs Date Time Temp Pulse Resp B/P (MAP) Pulse Ox O2 Delivery O2 Flow Rate FiO2 01/17/21 07:00 98.1 62 18 115/68 (84) 97 Room Air 98.1 Physical Exam General: Alert, Oriented X3, Cooperative, mild distress Heart: Regular rate Lungs: Clear, Other Abdomen: Normal bowel sounds, Soft, No tenderness Extremities: No cyanosis Skin: No rashes Labs LABS Patient StatusIN-PATIENT Environmental Health Officer: Doris Higuera, RT(R) Procedure(s) performed: MODERATE SEDATION TIME: 69 MINUTES FLUORO TIME: 6.5 MIN DOSE: [id number] CONTRAST: 30CC VISI Aortogram with LLE run-off HISTORY : The patient is a 75 year-old male with a history of . INDICATION FOR PROCEDURE The indication(s) include : Rest pain: Left lower extremity. CASE TECHNIQUE After explaining the risks, benefits, and alternative options, informed consent was obtained from the patient. IV conscious sedation was used throughout procedure with appropriate monitoring and was performed in the presence of a registered nurse who was an independent trained observer other than the physician performing the procedure. During this case, Fluoroscopy and low osmolar contrast were used for imaging. Specimen(s) Removed: N/A Estimated Blood loss: 15 cc's. PROCEDURE NARRATIVE Clinical information: 74-year-old male with a left leg ulcer at the heel was brought to the catheterization laboratory to rule out any critical obstructive disease. Procedure details: Under 1% lidocaine local anesthesia a 5 Bruneian sheath was placed in the right common femoral artery via the modified Seldinger technique. Next, a 5 Bruneian Omni Flush catheter was placed in the abdominal aorta and CO2 angiography digital subtraction images were obtained due to the patient's chronic renal insufficiency. Next, the Omni Flush catheter was used to engage the left common iliac artery. A glide catheter was then placed over the J-tip guidewire after the Omni Flush catheter was removed. Continued CO2 angiography was performed to the level of the popliteal artery. At this segment contrast angiography was obtained. Findings: Aorta has no significant disease Bilateral common iliac arteries no significant disease Bilateral external iliac arteries no significant disease Bilateral internal iliac arteries demonstrate mild diffuse irregularities Left common femoral artery has no significant disease Left superficial femoral artery has no significant disease Left profunda femoris artery has no significant disease Left popliteal artery has no significant disease Left anterior tibial artery has no significant disease Left peroneal artery has no significant disease Left posterior tibial artery is occluded in the proximal segment with poor reconstitution of the distal level. The angiogram was reviewed with the vascular surgery service and they felt that the patient had adequate runoff to the foot for further debridement and wound intervention of the heel ulcer. Therefore further intervention was deferred. The right groin sheath was removed and hemostasis was achieved with an Angio- Seal device. Total contrast 30 mL. No acute complications noted. Conclusion 1. No significant aortoiliac disease bilaterally. 2. Isolated left posterior tibial artery occlusion with adequate two-vessel runoff to the distal foot and calcaneal area. Recommendations 1. Case discussed with vascular surgery service and overall the patient is felt to have adequate runoff to the foot for further intervention with debridement of the left heel ulcer. 2. Continue aggressive risk factor modification. Signed by : Jannette Demarco, Electronically Approved : 12/27/2020 17:06:41 DICTATED and SIGNED BY: JANNETTE DEMARCO MD Laboratory Tests Test 01/16/21 12:08 01/16/21 17:11 01/16/21 18:00 01/16/21 21:02 Glucose (Fingerstick) 83 mg/dL (70-99) 73 mg/dL (70-99) 133 mg/dL (70-99) Stool Occult Blood Positive (NEG) Test 01/17/21 06:25 01/17/21 08:05 White Blood Count 8.9 x10^3/uL (4.0-11.0) Red Blood Count 2.48 x10^6/uL (4.30-5.70) Hemoglobin 7.2 g/dL (13.0-17.5) Hematocrit 21.7 % (39.0-53.0) Mean Corpuscular Volume 87 fL (79-100) Mean Corpuscular Hemoglobin 29 pg (25-35) Mean Corpuscular Hemoglobin Concent 33 g/dL (31-37) Red Cell Distribution Width 18.0 % (11.5-14.5) Platelet Count 221 x10^3/uL (140-400) Sodium Level 143 mmol/L (136-145) Potassium Level 3.7 mmol/L (3.5-5.1) Chloride Level 105 mmol/L (98-107) Carbon Dioxide Level 29 mmol/L (21-32) Anion Gap 9 (6-14) Blood Urea Nitrogen 29 mg/dL (8-26) Creatinine 4.3 mg/dL (0.7-1.3) Estimated GFR (Cockcroft-Gault) 13.6 Glucose Level 62 mg/dL (70-99) Calcium Level 7.7 mg/dL (8.5-10.1) Glucose (Fingerstick) 59 mg/dL (70-99) Assessment and Plan Assessmemt and Plan Problems Medical Problems: (1) Missed dialysis Status: Acute (2) Pulmonary edema Status: Acute Comment Review of Relevant I have reviewed the following items mara (where applicable) has been applied. Labs Laboratory Tests Test 01/15/21 08:25 01/15/21 11:43 6/12/21 17:10 01/15/21 20:40 Troponin I Quantitative 0.042 ng/mL (0.000-0.055) AT-Ekz-[id number]-Type Natriuretic Peptide > 76031 pg/mL (0-124) Glucose (Fingerstick) 92 mg/dL (70-99) 92 mg/dL (70-99) 109 mg/dL (70-99) Test 01/16/21 06:45 01/16/21 07:16 01/16/21 12:08 01/16/21 17:11 White Blood Count 8.3 x10^3/uL (4.0-11.0) Red Blood Count 2.43 x10^6/uL (4.30-5.70) Hemoglobin 7.0 g/dL (13.0-17.5) Hematocrit 21.1 % (39.0-53.0) Mean Corpuscular Volume 87 fL (79-100) Mean Corpuscular Hemoglobin 29 pg (25-35) Mean Corpuscular Hemoglobin Concent 33 g/dL (31-37) Red Cell Distribution Width 17.9 % (11.5-14.5) Platelet Count 183 x10^3/uL (140-400) Neutrophils (%) (Auto) 64 % (31-73) Lymphocytes (%) (Auto) 18 % (24-48) Monocytes (%) (Auto) 13 % (0-9) Eosinophils (%) (Auto) 4 % (0-3) Basophils (%) (Auto) 1 % (0-3) Neutrophils # (Auto) 5.3 x10^3/uL (1.8-7.7) Lymphocytes # (Auto) 1.5 x10^3/uL (1.0-4.8) Monocytes # (Auto) 1.1 x10^3/uL (0.0-1.1) Eosinophils # (Auto) 0.4 x10^3/uL (0.0-0.7) Basophils # (Auto) 0.1 x10^3/uL (0.0-0.2) Sodium Level 142 mmol/L (136-145) Potassium Level 3.7 mmol/L (3.5-5.1) Chloride Level 106 mmol/L (98-107) Carbon Dioxide Level 30 mmol/L (21-32) Anion Gap 6 (6-14) Blood Urea Nitrogen 25 mg/dL (8-26) Creatinine 3.9 mg/dL (0.7-1.3) Estimated GFR (Cockcroft-Gault) 15.2 Glucose Level 76 mg/dL (70-99) Calcium Level 8.0 mg/dL (8.5-10.1) Lactate Dehydrogenase 221 U/L (85-227) Glucose (Fingerstick) 80 mg/dL (70-99) 83 mg/dL (70-99) 73 mg/dL (70-99) Test 01/16/21 18:00 01/16/21 21:02 01/17/21 06:25 01/17/21 08:05 Stool Occult Blood Positive (NEG) Glucose (Fingerstick) 133 mg/dL (70-99) 59 mg/dL (70-99) White Blood Count 8.9 x10^3/uL (4.0-11.0) Red Blood Count 2.48 x10^6/uL (4.30-5.70) Hemoglobin 7.2 g/dL (13.0-17.5) Hematocrit 21.7 % (39.0-53.0) Mean Corpuscular Volume 87 fL (79-100) Mean Corpuscular Hemoglobin 29 pg (25-35) Mean Corpuscular Hemoglobin Concent 33 g/dL (31-37) Red Cell Distribution Width 18.0 % (11.5-14.5) Platelet Count 221 x10^3/uL (140-400) Sodium Level 143 mmol/L (136-145) Potassium Level 3.7 mmol/L (3.5-5.1) Chloride Level 105 mmol/L (98-107) Carbon Dioxide Level 29 mmol/L (21-32) Anion Gap 9 (6-14) Blood Urea Nitrogen 29 mg/dL (8-26) Creatinine 4.3 mg/dL (0.7-1.3) Estimated GFR (Cockcroft-Gault) 13.6 Glucose Level 62 mg/dL (70-99) Calcium Level 7.7 mg/dL (8.5-10.1) Laboratory Tests Test 01/16/21 12:08 01/16/21 17:11 01/16/21 18:00 01/16/21 21:02 Glucose (Fingerstick) 83 mg/dL (70-99) 73 mg/dL (70-99) 133 mg/dL (70-99) Stool Occult Blood Positive (NEG) Test 01/17/21 06:25 01/17/21 08:05 White Blood Count 8.9 x10^3/uL (4.0-11.0) Red Blood Count 2.48 x10^6/uL (4.30-5.70) Hemoglobin 7.2 g/dL (13.0-17.5) Hematocrit 21.7 % (39.0-53.0) Mean Corpuscular Volume 87 fL (79-100) Mean Corpuscular Hemoglobin 29 pg (25-35) Mean Corpuscular Hemoglobin Concent 33 g/dL (31-37) Red Cell Distribution Width 18.0 % (11.5-14.5) Platelet Count 221 x10^3/uL (140-400) Sodium Level 143 mmol/L (136-145) Potassium Level 3.7 mmol/L (3.5-5.1) Chloride Level 105 mmol/L (98-107) Carbon Dioxide Level 29 mmol/L (21-32) Anion Gap 9 (6-14) Blood Urea Nitrogen 29 mg/dL (8-26) Creatinine 4.3 mg/dL (0.7-1.3) Estimated GFR (Cockcroft-Gault) 13.6 Glucose Level 62 mg/dL (70-99) Calcium Level 7.7 mg/dL (8.5-10.1) Glucose (Fingerstick) 59 mg/dL (70-99) Microbiology 01/15/21 Blood Culture - Preliminary, Resulted NO GROWTH AFTER 1 DAY Medications Current Medications Aspirin (Ecotrin) 81 mg DAILYWBKFT PO Last administered on 01/15/21at 09:44; Start 01/15/21 at 08:00; Stop 01/16/21 at 09:16; Status DC Atorvastatin Calcium (Lipitor) 40 mg HS PO Last administered on 01/16/21at 21:04; Start 01/15/21 at 21:00 Hydralazine HCl (Apresoline) 25 mg TID PO Last administered on 01/16/21at 14:08; Start 01/15/21 at 09:00 Metoprolol Succinate (Toprol Xl) 25 mg DAILY PO Last administered on 01/16/21at 08:54; Start 01/15/21 at 09:00 Pantoprazole Sodium (Protonix) 40 mg DAILYAC PO Last administered on 01/16/21at 08:54; Start 01/15/21 at 07:30 Apixaban (Eliquis) 2.5 mg BID PO Last administered on 01/15/21at 21:20; Start 01/15/21 at 09:00; Stop 01/16/21 at 09:15; Status DC Ondansetron HCl (Zofran) 4 mg PRN Q6HRS PRN IVP NAUSEA/VOMITING; Start 01/15/21 at 01:00 Calcium Carbonate/ Glycine (Tums) 500 mg PRN Q3HRS PRN PO UPSET STOMACH; Start 01/15/21 at 01:00 Acetaminophen (Tylenol) 650 mg PRN Q6HRS PRN PO Headaches, Temp > 101.5F; Start 01/15/21 at 01:00 Magnesium Hydroxide (Milk Of Magnesia) 2,400 mg PRN Q12HR PRN PO CONSTIPATION; Start 01/15/21 at 01:00 Tramadol HCl (Ultram) 50 mg PRN Q6HRS PRN PO PAIN Last administered on 01/15/21at 21:20; Start 01/15/21 at 01:15 Insulin Glargine (Lantus Syringe) 15 unit QHS SQ Last administered on 01/16/21at 21:07; Start 01/15/21 at 21:00 Insulin Human Lispro (HumaLOG) 0-7 UNITS TIDWMEALS SQ ; Start 01/15/21 at 08:00 Dextrose (Dextrose 50%-Water Syringe) 12.5 gm PRN Q15MIN PRN IV SEE COMMENTS; Start 01/15/21 at 01:15 Dextrose (Iv Dextrose 5%) 250 ml PRN Q15MIN PRN IV SEE COMMENTS; Start 01/15/21 at 01:15; Status UNV Amoxicillin/ Clavulanate Potassium (Augmentin 500/ 125mg) 1 tab DAILY PO Last administered on 01/16/21at 08:54; Start 01/15/21 at 09:00; Stop 01/19/21 at 08:59 Buspirone HCl (Buspar) 10 mg PRN DAILY PRN PO ANXIETY / AGITATION; Start 01/15/21 at 07:30 Doxycycline Hyclate (Vibra-Tab) 100 mg BID PO Last administered on 01/16/21at 21:04; Start 01/15/21 at 09:00; Stop 01/19/21 at 08:59 Insulin Glargine (Lantus Syringe) 15 unit QHS SQ ; Start 01/15/21 at 21:00; Status Cancel Lactobacillus Rhamnosus (Culturelle) 1 cap BID PO Last administered on 01/16/21at 21:04; Start 01/15/21 at 09:00 Nystatin (Nystop) 1 daniela BID TP Last administered on 01/16/21at 21:00; Start 01/15/21 at 09:00 Sertraline HCl (Zoloft) 50 mg DAILY PO Last administered on 01/16/21at 08:54; Start 01/15/21 at 09:00 Sodium Chloride 1,000 ml @ 1,000 mls/hr Q1H PRN IV hypotension; Start 01/15/21 at 12:45; Stop 01/15/21 at 18:44; Status DC Albumin Human 200 ml @ 200 mls/hr 1X PRN PRN IV Hypotension; Start 01/15/21 at 12:45; Stop 01/15/21 at 18:44; Status DC Acetaminophen (Tylenol) 500 mg 1X PRN PRN PO MILD PAIN / TEMP > 100.3'F; Start 01/15/21 at 12:45; Stop 01/16/21 at 12:44; Status DC Diphenhydramine HCl (Benadryl) 25 mg 1X PRN PRN IV ITCHING; Start 01/15/21 at 12:45; Stop 01/16/21 at 12:44; Status DC Diphenhydramine HCl (Benadryl) 25 mg 1X PRN PRN IV ITCHING; Start 01/15/21 at 12:45; Stop 01/16/21 at 12:44; Status DC Sodium Chloride 1,000 ml @ 400 mls/hr Q2H30M PRN IV PATENCY; Start 01/15/21 at 12:45; Stop 01/16/21 at 00:44; Status DC Info (PHARMACY MONITORING -- do not chart) 1 each PRN DAILY PRN MC SEE COMMENTS; Start 01/15/21 at 12:45; Status UNV Info (PHARMACY MONITORING -- do not chart) 1 each PRN DAILY PRN MC SEE COMME NTS; Start 01/15/21 at 12:45 Darbepoetin Johnson (ARANESP for DIALYSIS PTS) 60 mcg Sa SQ Last administered on 01/15/21at 21:21; Start 01/15/21 at 21:00 Active Scripts Active Omeprazole Magnesium 20 Mg Capsule. 1 Cap PO DAILY 30 Days Culturelle (Lactobacillus Rhamnosus Gg) 1 Each Cap.sprink 1 Cap PO BID 14 Days Aspirin Ec (Aspirin) 81 Mg Tablet.dr 81 Mg PO DAILYWBKFT 30 Days Doxycycline Hyclate 100 Mg Tablet 100 Mg PO BID 14 Days Amox Tr-K Clv 500-125 Mg Tab (Amoxicillin/Potassium Clav) 1 Each Tablet 1 Tab PO DAILY 14 Days Lantus (Insulin Glargine,Hum.rec.anlog) 100 Unit/1 Ml Vial 15 Unit SQ QHS 30 Da ys Acetaminophen Supp (Acetaminophen) 650 Mg Supp.rect 650 Mg UT PRN Q4HRS PRN 30 Days Hydralazine Hcl 25 Mg Tablet 25 Mg PO TID 30 Days Reported Vitamin C (Ascorbic Acid) 500 Mg Capsule 500 Mg PO BID Senokot (Sennosides) 8.6 Mg Tablet 1 Tab PO BID PRN 20 Days Nystatin 15 Gm Powder 1 Daniela TP BID 7 Days apply to affected area(s) Zoloft (Sertraline Hcl) 50 Mg Tablet 50 Mg PO DAILY Metoprolol Succinate ( Xl ) (Metoprolol Succinate) 25 Mg Tab.er.24h 25 Mg PO DAILY Eliquis (Apixaban) 5 Mg Tablet 2.5 Mg PO BID Slow Release Iron (Ferrous Sulfate) 160 Mg Tablet.er 160 Mg PO DAILY Buspirone Hcl 10 Mg Tablet 1 Tab PO PRN DAILY PRN Atorvastatin Calcium 40 Mg Tablet 40 Mg PO HS Vitals/I & O Vital Sign - Last 24 Hours 01/16/21 01/16/21 01/16/21 01/16/21 08:54 08:55 10:18 14:08 Temp 98.2 98.2 Pulse 68 68 62 62 Resp 20 B/P (MAP) 130/48 130/48 144/58 (86) 144/58 Pulse Ox 96 O2 Delivery Room Air 01/16/21 01/16/21 01/16/21 01/16/21 15:00 19:00 20:00 21:00 Temp 98.5 98.7 98.5 98.7 Pulse 72 63 81 Resp 18 18 B/P (MAP) 123/80 (94) 92/56 (68) 92/56 Pulse Ox 97 96 O2 Delivery Room Air Room Air Room Air 01/16/21 01/17/21 01/17/21 22:54 02:59 07:00 Temp 98.5 98.3 98.1 98.5 98.3 98.1 Pulse 72 70 62 Resp 16 18 18 B/P (MAP) 119/52 (74) 126/61 (82) 115/68 (84) Pulse Ox 95 99 97 O2 Delivery Room Air Room Air Room Air Intake and Output 01/16/21 01/16/21 01/17/21 15:00 23:00 07:00 Intake Total 710 ml 600 ml 0 ml Balance 710 ml 600 ml 0 ml Justicifation of Admission Dx: Justifications for Admission: Justification of Admission Dx: Yes SURY PATTERSON MD Jan 17, 2021 08:10
[2021-01-17] MEDS: PANTOPRAZOLE 40 MG TABLET.DR. PO SCH (08:15)
[2021-01-17] MEDS: AMOXICILLIN/K CLAV 500/125MG TABLET. PO SCH (08:15)
[2021-01-17] MEDS: hydrALAZINE 25 MG TABLET PO SCH ×3 (08:15→20:54)
[2021-01-17] MEDS: SERTRALINE 50 MG TABLET. PO SCH (08:15)
[2021-01-17] MEDS: LACTOBACILLUS RHAMNOSUS GG 1 CAPSULE. PO SCH ×2 (08:15→20:54)
[2021-01-17] MEDS: DOXYCYCLINE HYCLATE 100 MG TABLET PO SCH ×2 (08:16→20:54)
[2021-01-17] MEDS: METOPROLOL SUCC 24HR ER 25 MG TAB.ER.24H. PO SCH (08:16)
[2021-01-17] MEDS: NYSTATIN TOPICAL POWDER 15GM BOTTLE. TP SCH ×2 (08:16→20:54)
[2021-01-17] MEDS ORDERED: IV NORMAL SALINE 1000ML BAG 1,000 ML IV PRN ×2 (09:00)
[2021-01-17] MEDS ORDERED: DIALYSIS PATIENT. MC PRN (09:00)
--- NOTE | 2021-01-17 09:23 | PDOC ---
DATE OF SERVICE DATE: 01/17/21 TIME: 09:16 SUBJECTIVE ROS seen during treatment, No complaints OBJECTIVE Vital Signs Vital Signs Date Time Temp Pulse Resp B/P (MAP) Pulse Ox O2 Delivery O2 Flow Rate FiO2 01/17/21 08:16 62 115/68 01/17/21 07:00 98.1 18 97 Room Air 98.1 I & 0 Intake and Output 01/17/21 07:00 Intake Total 1310 ml Balance 1310 ml Intake Oral 1310 ml # Voids 1 # Bowel Movements 1 PHYSICAL EXAM Physical Exam General: NAD HEENT: Atraumatic, OM moist Neck supple Lungs: Clear to auscultation Heart: Bradycardic, ESM aortic) Abdomen: Soft, NT Extremities: Bilat LE edema improved Neuro: grossly normal Psych/Mental Status: Mood NL lowery + , No cva or SP tenderness Skin No rash DIAGNOSIS/ASSESSMENT Assessment & Plan New Onset ESRD- Cardiorenal ,[facility] .Currently seen on dialysis, tolerating well, continue as ordered, Masood Toney Access Tunneled HDC on 01/04 He was unable to get dialysis as OP center due to issues with transferring from his wheel chair . SW to follow Hep Bs Ag Positive ; Hep B Core Ab Reactive . GI following . Pt reports he has been taking medicine for hep B thru [facility] and has given the list to the nursing at recent admission at [facility] and assumed he is getting it here as well (didnt get it ) . Mentioned in my Note prior to recent discharge . Recommend GI follow up Hx of Acute blood loss anemia secondary to GIB. s/p cauterization of bleeding antral ulcer by GI team and PRBC in November Renal calculus - RK- Possible intrarenal stones. LK Possible intrarenal stones to include a 13 mm focus of increased echogenicity at the upper pole.No e/o obstruction reported . Pt denies any past history Left heel wound with dry gangrene and 1st toe ulcer- s/p CO2 angiograph on 12/28 Acute on chronic diastolic CHF; Echo 07/25 with preserved LV systolic function CAD; s/p PCI/RHEA to LAD in 2018. clinically stable, CP free. 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 COMMENT/RELEVANT DATA Meds Current Medications Medications (Trade) Dose Ordered Sig/Redd Start Time Stop Time Status Last Admin Dose Admin Acetaminophen (Tylenol) 500 mg 1X PRN PRN 01/15/21 12:45 01/16/21 12:44 DC Albumin Human 200 ml @ 200 mls/hr 1X PRN PRN 01/15/21 12:45 01/15/21 18:44 DC Amoxicillin/ Clavulanate Potassium (Augmentin 500/ 125mg) 1 tab DAILY 01/15/21 09:00 01/19/21 08:59 01/17/21 08:15 1 TAB Apixaban (Eliquis) 2.5 mg BID 01/15/21 09:00 01/16/21 09:15 DC 01/15/21 21:20 2.5 MG Aspirin (Ecotrin) 81 mg DAILYWBKFT 01/15/21 08:00 01/16/21 09:16 DC 01/15/21 09:44 81 MG Atorvastatin Calcium (Lipitor) 40 mg HS 01/15/21 21:00 01/16/21 21:04 40 MG Buspirone HCl (Buspar) 10 mg PRN DAILY PRN 01/15/21 07:30 Calcium Carbonate/ Glycine (Tums) 500 mg PRN Q3HRS PRN 01/15/21 01:00 Darbepoetin Johnson (ARANESP for DIALYSIS PTS) 60 mcg Sa 01/15/21 21:00 01/15/21 21:21 60 MCG Dextrose (Dextrose 50%-Water Syringe) 12.5 gm PRN Q15MIN PRN 01/15/21 01:15 Dextrose (Iv Dextrose 5%) 250 ml PRN Q15MIN PRN 01/15/21 01:15 UNV Diphenhydramine HCl (Benadryl) 25 mg 1X PRN PRN 01/15/21 12:45 01/16/21 12:44 DC Doxycycline Hyclate (Vibra-Tab) 100 mg BID 01/15/21 09:00 01/19/21 08:59 01/17/21 08:16 100 MG Hydralazine HCl (Apresoline) 25 mg TID 01/15/21 09:00 01/17/21 08:15 25 MG Info (PHARMACY MONITORING -- do not chart) 1 each PRN DAILY PRN 01/17/21 09:00 Insulin Glargine (Lantus Syringe) 15 unit QHS 01/15/21 21:00 Cancel Insulin Human Lispro (HumaLOG) 0-7 UNITS TIDWMEALS 01/15/21 08:00 Lactobacillus Rhamnosus (Culturelle) 1 cap BID 01/15/21 09:00 01/17/21 08:15 1 CAP Magnesium Hydroxide (Milk Of Magnesia) 2,400 mg PRN Q12HR PRN 01/15/21 01:00 Metoprolol Succinate (Toprol Xl) 25 mg DAILY 01/15/21 09:00 01/17/21 08:16 25 MG Nystatin (Nystop) 1 luna BID 01/15/21 09:00 01/17/21 08:16 1 LUNA Ondansetron HCl (Zofran) 4 mg PRN Q6HRS PRN 01/15/21 01:00 Pantoprazole Sodium (Protonix) 40 mg DAILYAC 01/15/21 07:30 01/17/21 08:15 40 MG Sertraline HCl (Zoloft) 50 mg DAILY 01/15/21 09:00 01/17/21 08:15 50 MG Sodium Chloride 1,000 ml @ 400 mls/hr Q2H30M PRN 01/17/21 09:00 01/17/21 20:59 Tramadol HCl (Ultram) 50 mg PRN Q6HRS PRN 01/15/21 01:15 01/15/21 21:20 50 MG Lab Laboratory Tests Test 01/16/21 12:08 01/16/21 17:11 01/16/21 18:00 01/16/21 21:02 Glucose (Fingerstick) 83 mg/dL (70-99) 73 mg/dL (70-99) 133 mg/dL (70-99) Stool Occult Blood Positive (NEG) Test 01/17/21 06:25 01/17/21 08:05 01/17/21 08:46 White Blood Count 8.9 x10^3/uL (4.0-11.0) Red Blood Count 2.48 x10^6/uL (4.30-5.70) Hemoglobin 7.2 g/dL (13.0-17.5) Hematocrit 21.7 % (39.0-53.0) Mean Corpuscular Volume 87 fL (79-100) Mean Corpuscular Hemoglobin 29 pg (25-35) Mean Corpuscular Hemoglobin Concent 33 g/dL (31-37) Red Cell Distribution Width 18.0 % (11.5-14.5) Platelet Count 221 x10^3/uL (140-400) Sodium Level 143 mmol/L (136-145) Potassium Level 3.7 mmol/L (3.5-5.1) Chloride Level 105 mmol/L (98-107) Carbon Dioxide Level 29 mmol/L (21-32) Anion Gap 9 (6-14) Blood Urea Nitrogen 29 mg/dL (8-26) Creatinine 4.3 mg/dL (0.7-1.3) Estimated GFR (Cockcroft-Gault) 13.6 Glucose Level 62 mg/dL (70-99) Calcium Level 7.7 mg/dL (8.5-10.1) Glucose (Fingerstick) 59 mg/dL (70-99) 90 mg/dL (70-99) Results All relevant outside records, renal labs, imaging studies, telemetry/EKG's were reviewed. Justicifation of Admission Dx: Justifications for Admission: Justification of Admission Dx: Yes BEATRIZ IBARRA MD Jan 17, 2021 09:23
--- NOTE | 2021-01-17 14:26 | NUR ---
SS following for discharge planning. SS reviewed pt chart and discussed with pt RN. Pt is from [facility] m[facility]p unit, ; fax [phone]. Pt has outpatient dialysis at [facility], ; fax [phone], Sunday, Sunday, and Sunday. Wound care consulted. Pt received on unit of blood. Pt is able to return to [facility] when medically ready. Per [facility] pt was not able to get dialysis for six days due to dialysis clinic turning him away. SS was informed that pt was taken to dialysis on 01/12/2021 and clinic stated that they could not take him until Sunday which was not communicated. SS was informed that pt was taken to dialysis 01/14/2021, and clinic stated that he was too weepy and they would have to isolate him from other pt's and was again denied dialysis treatment. Per [facility] clinic was verbally rude to pt and staff. SS contacted [facility] and spoke with locker room supervisor, Allyssa. SS left voicemail for licensed clinical social worker, Carmelita. SS was informed that Deja from [facility] would be informed as well. SS will continue to follow for discharge planning. Addendum: 01/17/21 at 1639 by SARA ROBLES SS SS received phone contact from pt's family reporting that they do not want pt to go back to [facility]. SS contacted [facility] and spoke with Melissaureen. Bueno working to find new dialysis facility.
--- NOTE | 2021-01-17 16:21 | PDOC ---
Date of Service: DATE: 01/17/21 TIME: 15:53 Subjective: Subjective: Pleasant 75 y/o male - this is the third time we've seen in the hospital since 11/2020 - was just discharged 01/11. Admitted through ER again on 01/14 due to missing dialysis sessions as outpt related to not having a Aixa lift available. We are asked to see for anemia which is a chronic issue and has required transfusions during past and present admissions. He denies GI bleeding. He marielle es iron and a PPI (though on H2 severiano here recently considering new renal issues). In the past we have recommended outpt colonoscopy. Additional h/o Hep B reportedly on treated through Hepatology. He says his sister is going to bring the medication here. H/o CAD, PVD w/ recent left heel debridement, A Fib, ESRD on HD (on Aranesp) - he is taking ASA and Eliquis - both were restarted in 11/2020 after EGD w/ stable Hgb, then held during last admission and eventually restarted on ASA while inpt, and looks like discharged on Eliquis as well. No GI complaints except doesn't care for the food here. Objective: Objective: Reviewed other notes - mention of "dark stool." Vital Signs: Vital Signs Date Time Temp Pulse Resp B/P (MAP) Pulse Ox O2 Delivery O2 Flow Rate FiO2 01/17/21 14:01 66 129/71 01/17/21 13:48 98.3 20 98.3 01/17/21 11:00 98 Room Air Labs: Laboratory Tests Test 01/16/21 17:11 01/16/21 21:02 01/17/21 08:05 01/17/21 08:46 Glucose (Fingerstick) 73 mg/dL (70-99) 133 mg/dL (70-99) 59 mg/dL (70-99) 90 mg/dL (70-99) Test 01/17/21 12:23 Glucose (Fingerstick) 79 mg/dL (70-99) Imaging: CXR 01/14 IMPRESSION: 1. Cardiomegaly with bilateral lung base opacities likely pulmonary edema although atelectasis or consolidation have similar appearance. PE: GEN: NAD - dialyzing HEENT: Atraumatic, PERRL LUNGS: CTAB anteriorly HEART: irregular ABD: NABS, S/ND/NT EXTREMITY: left foot w/ wound vac, BLE wrapped NEURO/PSYCH: A & O 3 A/P: ESRD on HD - missed sessions as outpt Chronic anemia (not iron deficient in 11/2020, also had normal B12 then) - on iron, requiring transfusions; Hemoccult positive, denies obvious GI bleeding H/o - s/p endotherapy on EGD 11/2020, on H2 severiano CRC screen - none Hep B - reportedly on treatment through hepatology CAD, PVD s/p recent left heel debridement (and has wound vac in place), A Fib, CHF - on ASA and Eliquis again (though both currently held) FH pancreatic cancer -- From GI standpoint, we will observe on PPI and iron, transfuse as needed. Monitor stools; however takes iron so can look dark from this. Difficult situation w/ LE wound, use of ASA and Eliquis, and difficulties w/ dialysis as outpt. Await information re: Hep B medication from pt's sister - will also request records from . Justicifation of Admission Dx: Justifications for Admission: Justification of Admission Dx: Yes FABBY ROBERTSON Jan 17, 2021 16:21
--- NOTE | 2021-01-17 16:45 | NUR ---
Wound care Pt in dialysis at time of wound ccare team arrival. Unable to change dressings. Switched vac to hospital vac, will change dressings and assess wounds tomorrow. Home vac will be returned to [facility].
[2021-01-17] MEDS: ATORVASTATIN CALCIUM 40 MG TABLET. PO SCH (20:54)
[2021-01-17] MEDS: INSULIN GLARGINE SYRINGE. SQ SCH (20:54)
[2021-01-18 03:04] VITALS: BP 177/85
[2021-01-18 06:56] LABS: HEMATOCRIT 24.6 % (39.0-53.0); HEMOGLOBIN 8.1 g/dL (13.0-17.5); RED BLOOD COUNT 2.86 x10^6/uL (4.30-5.70); RED CELL DISTRIBUTION WIDTH 18.3 % (11.5-14.5); WHITE BLOOD COUNT 8.8 x10^3/uL (4.0-11.0)
[2021-01-18 07:00] VITALS: BP 114/66
[2021-01-18 07:08] LABS: CALCIUM 7.8 mg/dL (8.5-10.1); CREATININE 3.4 mg/dL (0.7-1.3); GFR 17.8; POTASSIUM 3.8 mmol/L (3.5-5.1)
[2021-01-18] MEDS: INSULIN LISPRO 300 UNITS/3 ML VIAL. SQ SCH ×3 (08:00→17:00)
[2021-01-18] MEDS: METOPROLOL SUCC 24HR ER 25 MG TAB.ER.24H. PO SCH (09:11)
[2021-01-18] MEDS: DOXYCYCLINE HYCLATE 100 MG TABLET PO SCH ×2 (09:11→20:52)
[2021-01-18] MEDS: SERTRALINE 50 MG TABLET. PO SCH (09:11)
[2021-01-18] MEDS: PANTOPRAZOLE 40 MG TABLET.DR. PO SCH (09:11)
[2021-01-18] MEDS: LACTOBACILLUS RHAMNOSUS GG 1 CAPSULE. PO SCH ×2 (09:11→20:51)
[2021-01-18] MEDS: FERROUS SULFATE 325 MG TABLET. PO SCH (09:12)
[2021-01-18] MEDS: AMOXICILLIN/K CLAV 500/125MG TABLET. PO SCH (09:12)
[2021-01-18] MEDS: hydrALAZINE 25 MG TABLET PO SCH ×3 (09:12→20:51)
[2021-01-18] MEDS: NYSTATIN TOPICAL POWDER 15GM BOTTLE. TP SCH ×2 (09:12→20:53)
--- NOTE | 2021-01-18 09:31 | PDOC ---
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 Does have RLE superficial wounds as well. 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 fib - WILIAN lazar. Hold eliquis SSS status post PPM placement - stable Morbid obesity - counseled on lifestyle OHS/ROBB - needs outpatient sleep study HTN - cont treatment HLD - cont statin PLAN Eliquis for DVT prophylaxis ADA diet Full code Surrogate decision maker is Phuong Mathis Dispo - in for dialysis Recommend GI follow up , GI CONSULTED 6-14 37 Min pt exam, chart review, > 50% of time spent with exam, chart review, pt care coordination History of Present Illness History of Present Illness Mr Nunn is a 75 year old male [place] [employer] with PMHx DM 2, PVD, A. fib, SSS status post PPM placement, morbid obesity, OHS/ROBB chronic diastolic C HF, HTN, HLD, new ESRD who was sent here from [facility] for evaluation. He was recently initiated on hemodialysis outpatient to be initiated Sunday and has had complications with this as he showed up on 01/12/2021 for his first scheduled outpatient session was told he was not on the schedule and they did not have a Aixa lift to move him into his dialysis chair even if he did have a chair time and sent back to [facility], he returned on 01/14/2021 and a Aixa lift did not have lift net available to transport him into his dialysis chair and he was sent back to SNF and told to come to the emergency department for dialysis. He complains of worsening lower extremity edema and shortness of breath that has been progressive he has been gaining weight. Bilateral feet hurt. EKG ventricularly paced rhythm 60 bpm no P waves detectable. Chest radiograph cardiomegaly right-sided tunneled HD catheter, pulmonary edema. Labs WBC 9.7, Hb 8.1, platelets 210, NA 141, K4, BUN 39, CR 55, glucose 101, troponin 0.039, albumin 2.6 He had a long complicated hospital stay with progression to ESRD initiated on dialysis 01/04/2021 via tunneled HDC and s/p sharp left heel debridement on 12/30/2020 with wound VAC placed on left lower extremity. Upon chart review patient was seen in November 04 09/12/2020 for GI bleed.. Eliquis was actually restarted on 11/09/2020. And also had a pacemaker placed on 11/09/2020 and tolerated procedure well. Admitted for further care given multiple missed dialysis sessions since discharge and fluid overload. Afebrile overnight. Hb down to 7 from 8.1. No clear source of bleeding. His shortness of breath and swelling improved today. Had a dark stool. Feeling weak. No cp Plan: Hold ASA and eliquis Plan for dialysis in AM, given his cardiac history needs blood transfusion, will give with dialysis given no clear active bleeding and history of fluid overload. Given aranesp today. -15 Eliquis for DVT prophylaxis ADA diet Full code Surrogate decision maker is Phuong Mathis Dispo - in for dialysis Recommend GI follow up , GI CONSULTED 6-14 d/w rn 37 Min pt exam, chart review, > 50% of time spent with exam, chart review, pt care coordination Vitals Vitals Vital Signs Date Time Temp Pulse Resp B/P (MAP) Pulse Ox O2 Delivery O2 Flow Rate FiO2 01/18/21 09:12 67 114/66 01/18/21 08:00 Room Air 01/18/21 07:00 97.9 18 100 97.9 Physical Exam General: Alert, Oriented X3, Cooperative, No acute distress Heart: Regular rate, Normal S1 Lungs: Clear, Other Abdomen: Normal bowel sounds, Soft, No tenderness Extremities: No cyanosis Skin: No rashes Labs LABS Laboratory Tests Test 01/17/21 12:23 01/17/21 17:18 01/17/21 20:52 01/18/21 06:30 Glucose (Fingerstick) 79 mg/dL (70-99) 92 mg/dL (70-99) 78 mg/dL (70-99) White Blood Count 8.8 x10^3/uL (4.0-11.0) Red Blood Count 2.86 x10^6/uL (4.30-5.70) Hemoglobin 8.1 g/dL (13.0-17.5) Hematocrit 24.6 % (39.0-53.0) Mean Corpuscular Volume 86 fL (79-100) Mean Corpuscular Hemoglobin 28 pg (25-35) Mean Corpuscular Hemoglobin Concent 33 g/dL (31-37) Red Cell Distribution Width 18.3 % (11.5-14.5) Platelet Count 163 x10^3/uL (140-400) Sodium Level 142 mmol/L (136-145) Potassium Level 3.8 mmol/L (3.5-5.1) Chloride Level 105 mmol/L (98-107) Carbon Dioxide Level 29 mmol/L (21-32) Anion Gap 8 (6-14) Blood Urea Nitrogen 21 mg/dL (8-26) Creatinine 3.4 mg/dL (0.7-1.3) Estimated GFR (Cockcroft-Gault) 17.8 Glucose Level 78 mg/dL (70-99) Calcium Level 7.8 mg/dL (8.5-10.1) Test 01/18/21 08:12 Glucose (Fingerstick) 81 mg/dL (70-99) Assessment and Plan Assessmemt and Plan Problems Medical Problems: (1) Missed dialysis Status: Acute (2) Pulmonary edema Status: Acute Comment Review of Relevant I have reviewed the following items mara (where applicable) has been applied. Labs Laboratory Tests Test 01/16/21 12:08 01/16/21 17:11 01/16/21 18:00 01/16/21 21:02 Glucose (Fingerstick) 83 mg/dL (70-99) 73 mg/dL (70-99) 133 mg/dL (70-99) Stool Occult Blood Positive (NEG) Test 01/17/21 06:25 01/17/21 08:05 01/17/21 08:46 01/17/21 12:23 White Blood Count 8.9 x10^3/uL (4.0-11.0) Red Blood Count 2.48 x10^6/uL (4.30-5.70) Hemoglobin 7.2 g/dL (13.0-17.5) Hematocrit 21.7 % (39.0-53.0) Mean Corpuscular Volume 87 fL (79-100) Mean Corpuscular Hemoglobin 29 pg (25-35) Mean Corpuscular Hemoglobin Concent 33 g/dL (31-37) Red Cell Distribution Width 18.0 % (11.5-14.5) Platelet Count 221 x10^3/uL (140-400) Sodium Level 143 mmol/L (136-145) Potassium Level 3.7 mmol/L (3.5-5.1) Chloride Level 105 mmol/L (98-107) Carbon Dioxide Level 29 mmol/L (21-32) Anion Gap 9 (6-14) Blood Urea Nitrogen 29 mg/dL (8-26) Creatinine 4.3 mg/dL (0.7-1.3) Estimated GFR (Cockcroft-Gault) 13.6 Glucose Level 62 mg/dL (70-99) Calcium Level 7.7 mg/dL (8.5-10.1) Glucose (Fingerstick) 59 mg/dL (70-99) 90 mg/dL (70-99) 79 mg/dL (70-99) Test 01/17/21 17:18 01/17/21 20:52 01/18/21 06:30 01/18/21 08:12 Glucose (Fingerstick) 92 mg/dL (70-99) 78 mg/dL (70-99) 81 mg/dL (70-99) White Blood Count 8.8 x10^3/uL (4.0-11.0) Red Blood Count 2.86 x10^6/uL (4.30-5.70) Hemoglobin 8.1 g/dL (13.0-17.5) Hematocrit 24.6 % (39.0-53.0) Mean Corpuscular Volume 86 fL (79-100) Mean Corpuscular Hemoglobin 28 pg (25-35) Mean Corpuscular Hemoglobin Concent 33 g/dL (31-37) Red Cell Distribution Width 18.3 % (11.5-14.5) Platelet Count 163 x10^3/uL (140-400) Sodium Level 142 mmol/L (136-145) Potassium Level 3.8 mmol/L (3.5-5.1) Chloride Level 105 mmol/L (98-107) Carbon Dioxide Level 29 mmol/L (21-32) Anion Gap 8 (6-14) Blood Urea Nitrogen 21 mg/dL (8-26) Creatinine 3.4 mg/dL (0.7-1.3) Estimated GFR (Cockcroft-Gault) 17.8 Glucose Level 78 mg/dL (70-99) Calcium Level 7.8 mg/dL (8.5-10.1) Laboratory Tests Test 01/17/21 12:23 01/17/21 17:18 01/17/21 20:52 01/18/21 06:30 Glucose (Fingerstick) 79 mg/dL (70-99) 92 mg/dL (70-99) 78 mg/dL (70-99) White Blood Count 8.8 x10^3/uL (4.0-11.0) Red Blood Count 2.86 x10^6/uL (4.30-5.70) Hemoglobin 8.1 g/dL (13.0-17.5) Hematocrit 24.6 % (39.0-53.0) Mean Corpuscular Volume 86 fL (79-100) Mean Corpuscular Hemoglobin 28 pg (25-35) Mean Corpuscular Hemoglobin Concent 33 g/dL (31-37) Red Cell Distribution Width 18.3 % (11.5-14.5) Platelet Count 163 x10^3/uL (140-400) Sodium Level 142 mmol/L (136-145) Potassium Level 3.8 mmol/L (3.5-5.1) Chloride Level 105 mmol/L (98-107) Carbon Dioxide Level 29 mmol/L (21-32) Anion Gap 8 (6-14) Blood Urea Nitrogen 21 mg/dL (8-26) Creatinine 3.4 mg/dL (0.7-1.3) Estimated GFR (Cockcroft-Gault) 17.8 Glucose Level 78 mg/dL (70-99) Calcium Level 7.8 mg/dL (8.5-10.1) Test 01/18/21 08:12 Glucose (Fingerstick) 81 mg/dL (70-99) Microbiology 01/15/21 Blood Culture - Preliminary, Resulted NO GROWTH AFTER 3 DAYS Medications Current Medications Aspirin (Ecotrin) 81 mg DAILYWBKFT PO Last administered on 01/15/21at 09:44; Start 01/15/21 at 08:00; Stop 01/16/21 at 09:16; Status DC Atorvastatin Calcium (Lipitor) 40 mg HS PO Last administered on 01/17/21at 20:54; Start 01/15/21 at 21:00 Hydralazine HCl (Apresoline) 25 mg TID PO Last administered on 01/18/21at 09:12; Start 01/15/21 at 09:00 Metoprolol Succinate (Toprol Xl) 25 mg DAILY PO Last administered on 01/18/21at 09:11; Start 01/15/21 at 09:00 Pantoprazole Sodium (Protonix) 40 mg DAILYAC PO Last administered on 01/18/21at 09:11; Start 01/15/21 at 07:30 Apixaban (Eliquis) 2.5 mg BID PO Last administered on 01/15/21at 21:20; Start 01/15/21 at 09:00; Stop 01/16/21 at 09:15; Status DC Ondansetron HCl (Zofran) 4 mg PRN Q6HRS PRN IVP NAUSEA/VOMITING; Start 01/15/21 at 01:00 Calcium Carbonate/ Glycine (Tums) 500 mg PRN Q3HRS PRN PO UPSET STOMACH; Start 01/15/21 at 01:00 Acetaminophen (Tylenol) 650 mg PRN Q6HRS PRN PO Headaches, Temp > 101.5F; Start 01/15/21 at 01:00 Magnesium Hydroxide (Milk Of Magnesia) 2,400 mg PRN Q12HR PRN PO CONSTIPATION; Start 01/15/21 at 01:00 Tramadol HCl (Ultram) 50 mg PRN Q6HRS PRN PO PAIN Last administered on 01/15/21at 21:20; Start 01/15/21 at 01:15 Insulin Glargine (Lantus Syringe) 15 unit QHS SQ Last administered on 01/16/21at 21:07; Start 01/15/21 at 21:00 Insulin Human Lispro (HumaLOG) 0-7 UNITS TIDWMEALS SQ ; Start 01/15/21 at 08:00 Dextrose (Dextrose 50%-Water Syringe) 12.5 gm PRN Q15MIN PRN IV SEE COMMENTS; Start 01/15/21 at 01:15 Dextrose (Iv Dextrose 5%) 250 ml PRN Q15MIN PRN IV SEE COMMENTS; Start 01/15/21 at 01:15; Status UNV Amoxicillin/ Clavulanate Potassium (Augmentin 500/ 125mg) 1 tab DAILY PO Last administered on 01/18/21at 09:12; Start 01/15/21 at 09:00; Stop 01/19/21 at 08:59 Buspirone HCl (Buspar) 10 mg PRN DAILY PRN PO ANXIETY / AGITATION; Start 01/15/21 at 07:30 Doxycycline Hyclate (Vibra-Tab) 100 mg BID PO Last administered on 01/18/21at 09:11; Start 01/15/21 at 09:00; Stop 01/19/21 at 08:59 Insulin Glargine (Lantus Syringe) 15 unit QHS SQ ; Start 01/15/21 at 21:00; Status Cancel Lactobacillus Rhamnosus (Culturelle) 1 cap BID PO Last administered on 01/18/21at 09:11; Start 01/15/21 at 09:00 Nystatin (Nystop) 1 daniela BID TP Last administered on 01/18/21at 09:12; Start 01/15/21 at 09:00 Sertraline HCl (Zoloft) 50 mg DAILY PO Last administered on 01/18/21at 09:11; Start 01/15/21 at 09:00 Sodium Chloride 1,000 ml @ 1,000 mls/hr Q1H PRN IV hypotension; Start 01/15/21 at 12:45; Stop 01/15/21 at 18:44; Status DC Albumin Human 200 ml @ 200 mls/hr 1X PRN PRN IV Hypotension; Start 01/15/21 at 12:45; Stop 01/15/21 at 18:44; Status DC Acetaminophen (Tylenol) 500 mg 1X PRN PRN PO MILD PAIN / TEMP > 100.3'F; Start 01/15/21 at 12:45; Stop 01/16/21 at 12:44; Status DC Diphenhydramine HCl (Benadryl) 25 mg 1X PRN PRN IV ITCHING; Start 01/15/21 at 12:45; Stop 01/16/21 at 12:44; Status DC Diphenhydramine HCl (Benadryl) 25 mg 1X PRN PRN IV ITCHING; Start 01/15/21 at 12:45; Stop 01/16/21 at 12:44; Status DC Sodium Chloride 1,000 ml @ 400 mls/hr Q2H30M PRN IV PATENCY; Start 01/15/21 at 12:45; Stop 01/16/21 at 00:44; Status DC Info (PHARMACY MONITORING -- do not chart) 1 each PRN DAILY PRN MC SEE COMMENTS; Start 01/15/21 at 12:45; Status UNV Info (PHARMACY MONITORING -- do not chart) 1 each PRN DAILY PRN MC SEE COMMENTS; Start 01/15/21 at 12:45; Status Cancel Darbepoetin Johnson (ARANESP for DIALYSIS PTS) 60 mcg Sa SQ Last administered on 01/15/21at 21:21; Start 01/15/21 at 21:00 Sodium Chloride 1,000 ml @ 1,000 mls/hr Q1H PRN IV hypotension; Start 01/17/21 at 09:00; Stop 01/17/21 at 14:59; Status DC Sodium Chloride 1,000 ml @ 400 mls/hr Q2H30M PRN IV PATENCY; Start 01/17/21 at 09:00; Stop 01/17/21 at 20:59; Status DC Info (PHARMACY MONITORING -- do not chart) 1 each PRN DAILY PRN MC SEE COMMENTS; Start 01/17/21 at 09:00 Ferrous Sulfate (Feosol) 325 mg DAILYWBKFT PO Last administered on 01/18/21at 09:12; Start 01/18/21 at 08:00 Active Scripts Active Omeprazole Magnesium 20 Mg Capsule.dr 1 Cap PO DAILY 30 Days Culturelle (Lactobacillus Rhamnosus Gg) 1 Each Cap.sprink 1 Cap PO BID 14 Days Aspirin Ec (Aspirin) 81 Mg Tablet.dr 81 Mg PO DAILYWBKFT 30 Days Doxycycline Hyclate 100 Mg Tablet 100 Mg PO BID 14 Days Amox Tr-K Clv 500-125 Mg Tab (Amoxicillin/Potassium Clav) 1 Each Tablet 1 Tab PO DAILY 14 Days Lantus (Insulin Glargine,Hum.rec.anlog) 100 Unit/1 Ml Vial 15 Unit SQ QHS 30 Days Acetaminophen Supp (Acetaminophen) 650 Mg Supp.rect 650 Mg MO PRN Q4HRS PRN 30 Days Hydralazine Hcl 25 Mg Tablet 25 Mg PO TID 30 Days Reported Vitamin C (Ascorbic Acid) 500 Mg Capsule 500 Mg PO BID Senokot (Sennosides) 8.6 Mg Tablet 1 Tab PO BID PRN 20 Days Nystatin 15 Gm Powder 1 Daniela TP BID 7 Days apply to affected area(s) Zoloft (Sertraline Hcl) 50 Mg Tablet 50 Mg PO DAILY Metoprolol Succinate ( Xl ) (Metoprolol Succinate) 25 Mg Tab.er.24h 25 Mg PO DAILY Eliquis (Apixaban) 5 Mg Tablet 2.5 Mg PO BID Slow Release Iron (Ferrous Sulfate) 160 Mg Tablet.er 160 Mg PO DAILY Buspirone Hcl 10 Mg Tablet 1 Tab PO PRN DAILY PRN Atorvastatin Calcium 40 Mg Tablet 40 Mg PO HS Vitals/I & O Vital Sign - Last 24 Hours 01/17/21 01/17/21 01/17/21 01/17/21 10:05 10:20 11:00 11:20 Temp 98.6 98.3 98.3 97.7 98.6 98.3 98.3 97.7 Pulse 73 74 81 Resp 20 18 18 18 B/P (MAP) 125/54 126/68 127/65 (85) 128/70 Pulse Ox 98 O2 Delivery Room Air 01/17/21 01/17/21 01/17/21 01/17/21 12:20 13:48 14:01 19:45 Temp 97.6 98.3 97.6 98.3 Pulse 73 65 66 Resp 20 20 B/P (MAP) 130/68 131/65 129/71 O2 Delivery Room Air 01/17/21 01/17/21 01/17/21 01/18/21 19:48 20:54 23:06 03:04 Temp 98.5 98.8 98.7 98.5 98.8 98.7 Pulse 78 78 78 80 Resp 16 18 16 B/P (MAP) 135/74 (94) 135/74 140/53 (82) 177/85 (115) Pulse Ox 97 97 97 O2 Delivery Room Air Room Air Room Air 01/18/21 01/18/21 01/18/21 01/18/21 07:00 08:00 09:11 09:12 Temp 97.9 97.9 Pulse 67 67 67 Resp 18 B/P (MAP) 114/66 (82) 114/66 114/66 Pulse Ox 100 O2 Delivery Room Air Room Air Intake and Output 01/17/21 01/17/21 01/18/21 14:53 22:53 06:53 Intake Total 700 ml 400 ml 0 ml Balance 700 ml 400 ml 0 ml Justicifation of Admission Dx: Justifications for Admission: Justification of Admission Dx: Yes SURY PATTERSON MD Jan 18, 2021 09:31
--- NOTE | 2021-01-18 09:59 | PDOC ---
Date of Service: DATE: 01/18/21 TIME: 09:54 Subjective: Subjective: Doesn't like the food here, especially breakfast. Would prefer raisin bran and 2% milk every morning. Reports h/o dark stools on iron. Says the other doctor told him there was blood in his stool on the test. Objective: Objective: D/w nurse - stooled this morning, no mention of concern for blood. +Hemoccult x 3 since 11/2020 - have recommended outpt colonoscopy. Vital Signs: Vital Signs Date Time Temp Pulse Resp B/P (MAP) Pulse Ox O2 Delivery O2 Flow Rate FiO2 01/18/21 09:12 67 114/66 01/18/21 08:00 Room Air 01/18/21 07:00 97.9 18 100 97.9 Labs: Laboratory Tests Test 01/17/21 12:23 01/17/21 17:18 01/17/21 20:52 01/18/21 06:30 Glucose (Fingerstick) 79 mg/dL 92 mg/dL 78 mg/dL White Blood Count 8.8 x10^3/uL Red Blood Count 2.86 x10^6/uL Hemoglobin 8.1 g/dL Hematocrit 24.6 % Mean Corpuscular Volume 86 fL Mean Corpuscular Hemoglobin 28 pg Mean Corpuscular Hemoglobin Concent 33 g/dL Red Cell Distribution Width 18.3 % Platelet Count 163 x10^3/uL Sodium Level 142 mmol/L Potassium Level 3.8 mmol/L Chloride Level 105 mmol/L Carbon Dioxide Level 29 mmol/L Anion Gap 8 Blood Urea Nitrogen 21 mg/dL Creatinine 3.4 mg/dL Estimated GFR (Cockcroft-Gault) 17.8 Glucose Level 78 mg/dL Calcium Level 7.8 mg/dL Test 01/18/21 08:12 Glucose (Fingerstick) 81 mg/dL PE: GEN: NAD LUNGS: CTAB HEART: RRR ABD: S/ND/NT EXTREMITY: wound vac NEURO/PSYCH: A & O 3 A/P: ESRD on HD, CAD, PVD, A Fib, CHF - ASA and Eliquis held Chronic anemia, question of dark stool on iron (though not today) H/o on PPI Hep B - reportedly on treatment through hepatology -- Will return to check re: any records from hepatology received OR any medication brought per family. Continue PPI and iron (and could increase to BID). Would be very difficult to prep for colonoscopy currently w/ limited mobility. D/w nurse - will attempt to reflect his desire for raisin bran every morning in orders. Justicifation of Admission Dx: Justifications for Admission: Justification of Admission Dx: Yes FABBY ROBERTSON Jan 18, 2021 09:59
[2021-01-18 10:49] VITALS: BP 113/75
--- NOTE | 2021-01-18 10:49 | PDOC ---
DATE OF SERVICE DATE: 01/18/21 TIME: 10:46 SUBJECTIVE ROS No complaints today OBJECTIVE Vital Signs Vital Signs Date Time Temp Pulse Resp B/P (MAP) Pulse Ox O2 Delivery O2 Flow Rate FiO2 01/18/21 09:12 67 114/66 01/18/21 08:00 Room Air 01/18/21 07:00 97.9 18 100 97.9 I & 0 Intake and Output 01/18/21 07:00 Intake Total 1100 ml Balance 1100 ml Intake Oral 640 ml Blood Product IV Normal Saline Flush 460 ml # Voids 2 # Bowel Movements 1 PHYSICAL EXAM Physical Exam General: NAD HEENT: Atraumatic, OM moist Neck supple Lungs: Clear to auscultation Heart: Bradycardic, ESM aortic) Abdomen: Soft, NT Extremities: Bilat LE edema improved Neuro: grossly normal Psych/Mental Status: Mood NL lowery + , No cva or SP tenderness Skin No rash DIAGNOSIS/ASSESSMENT Assessment & Plan New Onset ESRD- Cardiorenal ,Initiated on Dialysis 01/04 , . Currently no indication for HD today Access Tunneled HDC on 01/04 . SW for OP chair time Hep Bs Ag Positive ; Hep B Core Ab Reactive . . Pt reports he has been taking medicine for hep B thru [facility] consulted Hx of Acute blood loss anemia secondary to GIB. s/p cauterization of bleeding antral ulcer by GI team and PRBC in November Renal calculus - RK- Possible intrarenal stones. LK Possible intrarenal stones to include a 13 mm focus of increased echogenicity at the upper pole.No e/o obstruction reported . Pt denies any past history Left heel wound with dry gangrene and 1st toe ulcer- s/p CO2 angiograph on 12/28 Acute on chronic diastolic CHF; Echo 07/25 with preserved LV systolic function CAD; s/p PCI/RHEA to LAD in 2018. clinically stable, CP free. PAD s/p past orbital atherectomy/ROD PILER to right posterior tibial artery. COMMENT/RELEVANT DATA Meds Current Medications Medications (Trade) Dose Ordered Sig/Redd Start Time Stop Time Status Last Admin Dose Admin Acetaminophen (Tylenol) 500 mg 1X PRN PRN 01/15/21 12:45 01/16/21 12:44 DC Albumin Human 200 ml @ 200 mls/hr 1X PRN PRN 01/15/21 12:45 01/15/21 18:44 DC Amoxicillin/ Clavulanate Potassium (Augmentin 500/ 125mg) 1 tab DAILY 01/15/21 09:00 01/19/21 08:59 01/18/21 09:12 1 TAB Apixaban (Eliquis) 2.5 mg BID 01/15/21 09:00 01/16/21 09:15 DC 01/15/21 21:20 2.5 MG Aspirin (Ecotrin) 81 mg DAILYWBKFT 01/15/21 08:00 01/16/21 09:16 DC 01/15/21 09:44 81 MG Atorvastatin Calcium (Lipitor) 40 mg HS 01/15/21 21:00 01/17/21 20:54 40 MG Buspirone HCl (Buspar) 10 mg PRN DAILY PRN 01/15/21 07:30 Calcium Carbonate/ Glycine (Tums) 500 mg PRN Q3HRS PRN 01/15/21 01:00 Darbepoetin Johnson (ARANESP for DIALYSIS PTS) 60 mcg Sa 01/15/21 21:00 01/15/21 21:21 60 MCG Dextrose (Dextrose 50%-Water Syringe) 12.5 gm PRN Q15MIN PRN 01/15/21 01:15 Dextrose (Iv Dextrose 5%) 250 ml PRN Q15MIN PRN 01/15/21 01:15 UNV Diphenhydramine HCl (Benadryl) 25 mg 1X PRN PRN 01/15/21 12:45 01/16/21 12:44 DC Doxycycline Hyclate (Vibra-Tab) 100 mg BID 01/15/21 09:00 01/19/21 08:59 01/18/21 09:11 100 MG Ferrous Sulfate (Feosol) 325 mg DAILYWBKFT 01/18/21 08:00 01/18/21 09:12 325 MG Hydralazine HCl (Apresoline) 25 mg TID 01/15/21 09:00 01/18/21 09:12 25 MG Info (PHARMACY MONITORING -- do not chart) 1 each PRN DAILY PRN 01/17/21 09:00 Insulin Glargine (Lantus Syringe) 15 unit QHS 01/15/21 21:00 Cancel Insulin Human Lispro (HumaLOG) 0-7 UNITS TIDWMEALS 01/15/21 08:00 Lactobacillus Rhamnosus (Culturelle) 1 cap BID 01/15/21 09:00 01/18/21 09:11 1 CAP Magnesium Hydroxide (Milk Of Magnesia) 2,400 mg PRN Q12HR PRN 01/15/21 01:00 Metoprolol Succinate (Toprol Xl) 25 mg DAILY 01/15/21 09:00 01/18/21 09:11 25 MG Nystatin (Nystop) 1 luna BID 01/15/21 09:00 01/18/21 09:12 1 LUNA Ondansetron HCl (Zofran) 4 mg PRN Q6HRS PRN 01/15/21 01:00 Pantoprazole Sodium (Protonix) 40 mg DAILYAC 01/15/21 07:30 01/18/21 09:11 40 MG Sertraline HCl (Zoloft) 50 mg DAILY 01/15/21 09:00 01/18/21 09:11 50 MG Sodium Chloride 1,000 ml @ 400 mls/hr Q2H30M PRN 01/17/21 09:00 01/17/21 20:59 DC Tramadol HCl (Ultram) 50 mg PRN Q6HRS PRN 01/15/21 01:15 01/15/21 21:20 50 MG Lab Laboratory Tests Test 01/17/21 12:23 01/17/21 17:18 01/17/21 20:52 01/18/21 06:30 Glucose (Fingerstick) 79 mg/dL (70-99) 92 mg/dL (70-99) 78 mg/dL (70-99) White Blood Count 8.8 x10^3/uL (4.0-11.0) Red Blood Count 2.86 x10^6/uL (4.30-5.70) Hemoglobin 8.1 g/dL (13.0-17.5) Hematocrit 24.6 % (39.0-53.0) Mean Corpuscular Volume 86 fL (79-100) Mean Corpuscular Hemoglobin 28 pg (25-35) Mean Corpuscular Hemoglobin Concent 33 g/dL (31-37) Red Cell Distribution Width 18.3 % (11.5-14.5) Platelet Count 163 x10^3/uL (140-400) Sodium Level 142 mmol/L (136-145) Potassium Level 3.8 mmol/L (3.5-5.1) Chloride Level 105 mmol/L (98-107) Carbon Dioxide Level 29 mmol/L (21-32) Anion Gap 8 (6-14) Blood Urea Nitrogen 21 mg/dL (8-26) Creatinine 3.4 mg/dL (0.7-1.3) Estimated GFR (Cockcroft-Gault) 17.8 Glucose Level 78 mg/dL (70-99) Calcium Level 7.8 mg/dL (8.5-10.1) Test 01/18/21 08:12 Glucose (Fingerstick) 81 mg/dL (70-99) Results All relevant outside records, renal labs, imaging studies, telemetry/EKG's were reviewed. Justicifation of Admission Dx: Justifications for Admission: Justification of Admission Dx: Yes BEATRIZ IBARRA MD Jan 18, 2021 10:49
--- NOTE | 2021-01-18 10:54 | NUR ---
SS following up with discharge planning. SS reviewed pt chart and discussed with pt RN. Pt is currently on room air. Wound care following. PT/OT orders requested. [facility] Admissions, ; fax [phone], working on outpatient hemodialysis chair time at a different clinic than [facility]. SS discussed with Dg in [facility] Admissions. [facility] to notify SS with new placement. SS will continue to follow for discharge planning.
[2021-01-18 15:00] VITALS: BP 163/73
[2021-01-18 19:14] VITALS: BP 118/54
[2021-01-18] MEDS: ATORVASTATIN CALCIUM 40 MG TABLET. PO SCH (20:52)
[2021-01-18] MEDS: INSULIN GLARGINE SYRINGE. SQ SCH (20:55)
[2021-01-18 22:27] VITALS: BP 133/64
[2021-01-19 02:32] VITALS: BP 131/56
[2021-01-19 07:00] VITALS: BP 135/68
[2021-01-19] MEDS: INSULIN LISPRO 300 UNITS/3 ML VIAL. SQ SCH ×3 (08:00→17:00)
[2021-01-19 08:12] LABS: CALCIUM 7.8 mg/dL (8.5-10.1); CREATININE 3.7 mg/dL (0.7-1.3); GFR 16.2; POTASSIUM 3.6 mmol/L (3.5-5.1)
[2021-01-19] MEDS ORDERED: IV NORMAL SALINE 1000ML BAG 1,000 ML IV PRN ×2 (08:15)
[2021-01-19] MEDS ORDERED: ALBUMIN HUMAN 25% 200 ML IV PRN (08:15)
[2021-01-19] MEDS ORDERED: DIALYSIS PATIENT. MC PRN ×2 (08:15)
[2021-01-19] MEDS: SERTRALINE 50 MG TABLET. PO SCH (08:44)
[2021-01-19] MEDS: PANTOPRAZOLE 40 MG TABLET.DR. PO SCH (08:44)
[2021-01-19] MEDS: LACTOBACILLUS RHAMNOSUS GG 1 CAPSULE. PO SCH ×2 (08:44→20:37)
[2021-01-19] MEDS: METOPROLOL SUCC 24HR ER 25 MG TAB.ER.24H. PO SCH ×2 (08:44→13:42)
[2021-01-19] MEDS: FERROUS SULFATE 325 MG TABLET. PO SCH (08:44)
[2021-01-19] MEDS: hydrALAZINE 25 MG TABLET PO SCH ×4 (08:45→20:38)
[2021-01-19] MEDS: NYSTATIN TOPICAL POWDER 15GM BOTTLE. TP SCH ×2 (08:49→20:38)
--- NOTE | 2021-01-19 09:36 | PDOC ---
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 Does have RLE superficial wounds as well. To be on augmentin and doxycycline PO an additional 4 days Severe protein malnutrition - preschool aide to see Diabetes mellitus type 2 - basal bolus plus insulin PVD - above A. fib - WILIAN lazar. Hold eliquis SSS status post PPM placement - stable Morbid obesity - counseled on lifestyle OHS/ROBB - needs outpatient sleep study HTN - cont treatment HLD - cont statin PLAN Eliquis for DVT prophylaxis ADA diet Full code Surrogate decision maker is Phuong Mathis Dispo - in for dialysis Recommend GI follow up , GI CONSULTED 6-14 37 Min pt exam, chart review, > 50% of time spent with exam, chart review, pt care coordination History of Present Illness History of Present Illness Mr Nunn is a 75 year old male [employer] [employer] with PMHx DM 2, PVD, A. fib, SSS status post PPM placement, morbid obesity, OHS/ROBB chronic diastolic C HF, HTN, HLD, new ESRD who was sent here from [facility] for evaluation. He was recently initiated on hemodialysis outpatient to be initiated Sunday and has had complications with this as he showed up on 01/12/2021 for his first scheduled outpatient session was told he was not on the schedule and they did not have a [employer] lift to move him into his dialysis chair even if he did have a chair time and sent back to [facility], he returned on 01/14/2021 and a [employer] lift did not have lift net available to transport him into his dialysis chair and he was sent back to SNF and told to come to the emergency department for dialysis. He complains of worsening lower extremity edema and shortness of breath that has been progressive he has been gaining weight. Bilateral feet hurt. EKG ventricularly paced rhythm 60 bpm no P waves detectable. Chest radiograph cardiomegaly right-sided tunneled HD catheter, pulmonary edema. Labs WBC 9.7, Hb 8.1, platelets 210, NA 141, K4, BUN 39, CR 55, glucose 101, troponin 0.039, albumin 2.6 He had a long complicated hospital stay with progression to ESRD initiated on dialysis 01/04/2021 via tunneled HDC and s/p sharp left heel debridement on 12/30/2020 with wound VAC placed on left lower extremity. Upon chart review patient was seen in November 04 09/12/2020 for GI bleed.. Eliquis was actually restarted on 11/09/2020. And also had a pacemaker placed on 11/09/2020 and tolerated procedure well. Admitted for further care given multiple missed dialysis sessions since discharge and fluid overload. Afebrile overnight. Hb down to 7 from 8.1. No clear source of bleeding. His shortness of breath and swelling improved today. Had a dark stool. Feeling weak. No cp Plan: Hold ASA and eliquis Plan for dialysis in AM, given his cardiac history needs blood transfusion, will give with dialysis given no clear active bleeding and history of fluid overload. Given aranesp today. 6-15 Eliquis for DVT prophylaxis ADA diet Full code Surrogate decision maker is Phuong Mathis Dispo - in for dialysis Recommend GI follow up , GI CONSULTED 6-14 d/w rn 37 Min pt exam, chart review, > 50% of time spent with exam, chart review, pt care coordination H/o on PPI, Hep B on treatment through [facility] 6-16 Eliquis for DVT prophylaxis ADA diet Full code Surrogate decision maker is Phuong Mathis Dispo - in for dialysis Recommend GI follow up , GI CONSULTED 6-14 d/w rn 27 Min pt exam, chart review, > 50% of time spent with exam, chart review, pt care coordination H/o on PPI, Hep B on treatment through [facility] Vitals Vitals Vital Signs Date Time Temp Pulse Resp B/P (MAP) Pulse Ox O2 Delivery O2 Flow Rate FiO2 6/16/21 07:00 97.8 72 18 135/68 (90) 97 Room Air 97.8 Physical Exam General: Alert, Oriented X3, Cooperative, No acute distress Heart: Regular rate, Normal S1 Lungs: Clear, Other Abdomen: Normal bowel sounds, Soft, No tenderness Extremities: No cyanosis Skin: No rashes Labs LABS Laboratory Tests Test 01/18/21 11:50 01/18/21 17:27 01/18/21 20:50 01/19/21 07:30 Glucose (Fingerstick) 150 mg/dL (70-99) 109 mg/dL (70-99) 138 mg/dL (70-99) Sodium Level 142 mmol/L (136-145) Potassium Level 3.6 mmol/L (3.5-5.1) Chloride Level 104 mmol/L (98-107) Carbon Dioxide Level 29 mmol/L (21-32) Anion Gap 9 (6-14) Blood Urea Nitrogen 27 mg/dL (8-26) Creatinine 3.7 mg/dL (0.7-1.3) Estimated GFR (Cockcroft-Gault) 16.2 Glucose Level 89 mg/dL (70-99) Calcium Level 7.8 mg/dL (8.5-10.1) Test 01/19/21 07:43 Glucose (Fingerstick) 89 mg/dL (70-99) Assessment and Plan Assessmemt and Plan Problems Medical Problems: (1) Missed dialysis Status: Acute (2) Pulmonary edema Status: Acute Comment Review of Relevant I have reviewed the following items mara (where applicable) has been applied. Labs Laboratory Tests Test 01/17/21 12:23 01/17/21 17:18 01/17/21 20:52 01/18/21 06:30 Glucose (Fingerstick) 79 mg/dL (70-99) 92 mg/dL (70-99) 78 mg/dL (70-99) White Blood Count 8.8 x10^3/uL (4.0-11.0) Red Blood Count 2.86 x10^6/uL (4.30-5.70) Hemoglobin 8.1 g/dL (13.0-17.5) Hematocrit 24.6 % (39.0-53.0) Mean Corpuscular Volume 86 fL (79-100) Mean Corpuscular Hemoglobin 28 pg (25-35) Mean Corpuscular Hemoglobin Concent 33 g/dL (31-37) Red Cell Distribution Width 18.3 % (11.5-14.5) Platelet Count 163 x10^3/uL (140-400) Sodium Level 142 mmol/L (136-145) Potassium Level 3.8 mmol/L (3.5-5.1) Chloride Level 105 mmol/L (98-107) Carbon Dioxide Level 29 mmol/L (21-32) Anion Gap 8 (6-14) Blood Urea Nitrogen 21 mg/dL (8-26) Creatinine 3.4 mg/dL (0.7-1.3) Estimated GFR (Cockcroft-Gault) 17.8 Glucose Level 78 mg/dL (70-99) Calcium Level 7.8 mg/dL (8.5-10.1) Test 01/18/21 08:12 01/18/21 11:50 01/18/21 17:27 01/18/21 20:50 Glucose (Fingerstick) 81 mg/dL (70-99) 150 mg/dL (70-99) 109 mg/dL (70-99) 138 mg/dL (70-99) Test 01/19/21 07:30 01/19/21 07:43 Sodium Level 142 mmol/L (136-145) Potassium Level 3.6 mmol/L (3.5-5.1) Chloride Level 104 mmol/L (98-107) Carbon Dioxide Level 29 mmol/L (21-32) Anion Gap 9 (6-14) Blood Urea Nitrogen 27 mg/dL (8-26) Creatinine 3.7 mg/dL (0.7-1.3) Estimated GFR (Cockcroft-Gault) 16.2 Glucose Level 89 mg/dL (70-99) Calcium Level 7.8 mg/dL (8.5-10.1) Glucose (Fingerstick) 89 mg/dL (70-99) Laboratory Tests Test 01/18/21 11:50 01/18/21 17:27 01/18/21 20:50 01/19/21 07:30 Glucose (Fingerstick) 150 mg/dL (70-99) 109 mg/dL (70-99) 138 mg/dL (70-99) Sodium Level 142 mmol/L (136-145) Potassium Level 3.6 mmol/L (3.5-5.1) Chloride Level 104 mmol/L (98-107) Carbon Dioxide Level 29 mmol/L (21-32) Anion Gap 9 (6-14) Blood Urea Nitrogen 27 mg/dL (8-26) Creatinine 3.7 mg/dL (0.7-1.3) Estimated GFR (Cockcroft-Gault) 16.2 Glucose Level 89 mg/dL (70-99) Calcium Level 7.8 mg/dL (8.5-10.1) Test 01/19/21 07:43 Glucose (Fingerstick) 89 mg/dL (70-99) Microbiology 01/15/21 Blood Culture - Preliminary, Resulted NO GROWTH AFTER 4 DAYS Medications Current Medications Aspirin (Ecotrin) 81 mg DAILYWBKFT PO Last administered on 01/15/21at 09:44; Start 01/15/21 at 08:00; Stop 01/16/21 at 09:16; Status DC Atorvastatin Calcium (Lipitor) 40 mg HS PO Last administered on 01/18/21at 20:52; Start 01/15/21 at 21:00 Hydralazine HCl (Apresoline) 25 mg TID PO Last administered on 01/18/21at 20:51; Start 01/15/21 at 09:00 Metoprolol Succinate (Toprol Xl) 25 mg DAILY PO Last administered on 01/18/21at 09:11; Start 01/15/21 at 09:00 Pantoprazole Sodium (Protonix) 40 mg DAILYAC PO Last administered on 01/19/21at 08:44; Start 01/15/21 at 07:30 Apixaban (Eliquis) 2.5 mg BID PO Last administered on 01/15/21at 21:20; Start 01/15/21 at 09:00; Stop 01/16/21 at 09:15; Status DC Ondansetron HCl (Zofran) 4 mg PRN Q6HRS PRN IVP NAUSEA/VOMITING; Start 01/15/21 at 01:00 Calcium Carbonate/ Glycine (Tums) 500 mg PRN Q3HRS PRN PO UPSET STOMACH; Start 01/15/21 at 01:00 Acetaminophen (Tylenol) 650 mg PRN Q6HRS PRN PO Headaches, Temp > 101.5F; Start 01/15/21 at 01:00 Magnesium Hydroxide (Milk Of Magnesia) 2,400 mg PRN Q12HR PRN PO CONSTIPATION; Start 01/15/21 at 01:00 Tramadol HCl (Ultram) 50 mg PRN Q6HRS PRN PO PAIN Last administered on 01/15/21at 21:20; Start 01/15/21 at 01:15 Insulin Glargine (Lantus Syringe) 15 unit QHS SQ Last administered on 01/18/21at 20:55; Start 01/15/21 at 21:00 Insulin Human Lispro (HumaLOG) 0-7 UNITS TIDWMEALS SQ ; Start 01/15/21 at 08:00 Dextrose (Dextrose 50%-Water Syringe) 12.5 gm PRN Q15MIN PRN IV SEE COMMENTS; Start 01/15/21 at 01:15 Dextrose (Iv Dextrose 5%) 250 ml PRN Q15MIN PRN IV SEE COMMENTS; Start 01/15/21 at 01:15; Status UNV Amoxicillin/ Clavulanate Potassium (Augmentin 500/ 125mg) 1 tab DAILY PO Last administered on 01/18/21at 09:12; Start 01/15/21 at 09:00; Stop 01/19/21 at 08:59; Status DC Buspirone HCl (Buspar) 10 mg PRN DAILY PRN PO ANXIETY / AGITATION; Start 01/15/21 at 07:30 Doxycycline Hyclate (Vibra-Tab) 100 mg BID PO Last administered on 01/18/21at 20:52; Start 01/15/21 at 09:00; Stop 01/19/21 at 08:59; Status DC Insulin Glargine (Lantus Syringe) 15 unit QHS SQ ; Start 01/15/21 at 21:00; Status Cancel Lactobacillus Rhamnosus (Culturelle) 1 cap BID PO Last administered on 01/19/21at 08:44; Start 01/15/21 at 09:00 Nystatin (Nystop) 1 daniela BID TP Last administered on 01/19/21at 08:49; Start 01/15/21 at 09:00 Sertraline HCl (Zoloft) 50 mg DAILY PO Last administered on 01/19/21at 08:44; Start 01/15/21 at 09:00 Sodium Chloride 1,000 ml @ 1,000 mls/hr Q1H PRN IV hypotension; Start 01/15/21 at 12:45; Stop 01/15/21 at 18:44; Status DC Albumin Human 200 ml @ 200 mls/hr 1X PRN PRN IV Hypotension; Start 01/15/21 at 12:45; Stop 01/15/21 at 18:44; Status DC Acetaminophen (Tylenol) 500 mg 1X PRN PRN PO MILD PAIN / TEMP > 100.3'F; Start 01/15/21 at 12:45; Stop 01/16/21 at 12:44; Status DC Diphenhydramine HCl (Benadryl) 25 mg 1X PRN PRN IV ITCHING; Start 01/15/21 at 12:45; Stop 01/16/21 at 12:44; Status DC Diphenhydramine HCl (Benadryl) 25 mg 1X PRN PRN IV ITCHING; Start 01/15/21 at 12:45; Stop 01/16/21 at 12:44; Status DC Sodium Chloride 1,000 ml @ 400 mls/hr Q2H30M PRN IV PATENCY; Start 01/15/21 at 12:45; Stop 01/16/21 at 00:44; Status DC Info (PHARMACY MONITORING -- do not chart) 1 each PRN DAILY PRN MC SEE COMMENTS; Start 01/15/21 at 12:45; Status UNV Info (PHARMACY MONITORING -- do not chart) 1 each PRN DAILY PRN MC SEE COMMENTS; Start 01/15/21 at 12:45; Status Cancel Darbepoetin Johnson (ARANESP for DIALYSIS PTS) 60 mcg Sa SQ Last administered on 01/15/21at 21:21; Start 01/15/21 at 21:00 Sodium Chloride 1,000 ml @ 1,000 mls/hr Q1H PRN IV hypotension; Start 01/17/21 at 09:00; Stop 01/17/21 at 14:59; Status DC Sodium Chloride 1,000 ml @ 400 mls/hr Q2H30M PRN IV PATENCY; Start 01/17/21 at 09:00; Stop 01/17/21 at 20:59; Status DC Info (PHARMACY MONITORING -- do not chart) 1 each PRN DAILY PRN MC SEE COMMENTS; Start 01/17/21 at 09:00 Ferrous Sulfate (Feosol) 325 mg DAILYWBKFT PO Last administered on 01/19/21at 08:44; Start 01/18/21 at 08:00 Sodium Chloride 1,000 ml @ 1,000 mls/hr Q1H PRN IV hypotension; Start 01/19/21 at 08:15; Stop 01/19/21 at 14:14 Albumin Human 200 ml @ 200 mls/hr 1X PRN PRN IV Hypotension; Start 01/19/21 at 08:15; Stop 01/19/21 at 14:14 Sodium Chloride 1,000 ml @ 400 mls/hr Q2H30M PRN IV PATENCY; Start 01/19/21 at 08:15; Stop 01/19/21 at 20:14 Info (PHARMACY MONITORING -- do not chart) 1 each PRN DAILY PRN MC SEE COMMENTS; Start 01/19/21 at 08:15 Info (PHARMACY MONITORING -- do not chart) 1 each PRN DAILY PRN MC SEE COMMENTS; Start 01/19/21 at 08:15 Active Scripts Active Omeprazole Magnesium 20 Mg Capsule. 1 Cap PO DAILY 30 Days Culturelle (Lactobacillus Rhamnosus Gg) 1 Each Cap.sprink 1 Cap PO BID 14 Days Aspirin Ec (Aspirin) 81 Mg Tablet. 81 Mg PO DAILYWBKFT 30 Days Doxycycline Hyclate 100 Mg Tablet 100 Mg PO BID 14 Days Amox Tr-K Clv 500-125 Mg Tab (Amoxicillin/Potassium Clav) 1 Each Tablet 1 Tab PO DAILY 14 Days Lantus (Insulin Glargine,Hum.rec.anlog) 100 Unit/1 Ml Vial 15 Unit SQ QHS 30 Days Acetaminophen Supp (Acetaminophen) 650 Mg Supp.rect 650 Mg IL PRN Q4HRS PRN 30 Days Hydralazine Hcl 25 Mg Tablet 25 Mg PO TID 30 Days Reported Vitamin C (Ascorbic Acid) 500 Mg Capsule 500 Mg PO BID Senokot (Sennosides) 8.6 Mg Tablet 1 Tab PO BID PRN 20 Days Nystatin 15 Gm Powder 1 Daniela TP BID 7 Days apply to affected area(s) Zoloft (Sertraline Hcl) 50 Mg Tablet 50 Mg PO DAILY Metoprolol Succinate ( Xl ) (Metoprolol Succinate) 25 Mg Tab.er.24h 25 Mg PO DAILY Eliquis (Apixaban) 5 Mg Tablet 2.5 Mg PO BID Slow Release Iron (Ferrous Sulfate) 160 Mg Tablet.er 160 Mg PO DAILY Buspirone Hcl 10 Mg Tablet 1 Tab PO PRN DAILY PRN Atorvastatin Calcium 40 Mg Tablet 40 Mg PO HS Vitals/I & O Vital Sign - Last 24 Hours 01/18/21 01/18/21 01/18/21 01/18/21 10:49 14:43 15:00 19:14 Temp 98.4 97.9 98.0 98.4 97.9 98.0 Pulse 84 71 73 78 Resp 18 18 18 B/P (MAP) 113/75 (88) 170/66 163/73 (103) 118/54 (75) Pulse Ox 97 97 97 O2 Delivery Room Air Room Air Room Air 01/18/21 01/18/21 01/18/21 01/19/21 19:50 20:51 22:27 02:32 Temp 98.8 98.5 98.8 98.5 Pulse 78 77 65 Resp 18 18 B/P (MAP) 118/54 133/64 (87) 131/56 (81) Pulse Ox 97 98 O2 Delivery Room Air Room Air Room Air 01/19/21 07:00 Temp 97.8 97.8 Pulse 72 Resp 18 B/P (MAP) 135/68 (90) Pulse Ox 97 O2 Delivery Room Air Intake and Output 01/18/21 01/18/21 01/19/21 15:00 23:00 07:00 Intake Total 490 ml 50 ml Output Total 200 ml Balance 290 ml 50 ml Justicifation of Admission Dx: Justifications for Admission: Justification of Admission Dx: Yes SURY PATTERSON MD Jan 19, 2021 09:35
--- NOTE | 2021-01-19 10:54 | PDOC ---
DATE OF SERVICE DATE: 01/19/21 TIME: 10:52 SUBJECTIVE ROS Seen on dialysis No complaints OBJECTIVE Vital Signs Vital Signs Date Time Temp Pulse Resp B/P (MAP) Pulse Ox O2 Delivery O2 Flow Rate FiO2 01/19/21 08:00 Room Air 01/19/21 07:00 97.8 72 18 135/68 (90) 97 97.8 I & 0 Intake and Output 01/19/21 07:00 Intake Total 540 ml Output Total 200 ml Balance 340 ml Intake Oral 540 ml Output Urine Total 200 ml # Bowel Movements 3 PHYSICAL EXAM Physical Exam General: NAD HEENT: Atraumatic, OM moist Neck supple Lungs: Clear to auscultation Heart: Bradycardic, ESM aortic) Abdomen: Soft, NT Extremities: Bilat LE edema improved Neuro: grossly normal Psych/Mental Status: Mood NL lowery + , No cva or SP tenderness Skin No rash DIAGNOSIS/ASSESSMENT Assessment & Plan New Onset ESRD- Cardiorenal ,Initiated on Dialysis 01/04 , Seen during treatment, tolerating well. Continue as ordered, Masood Toney Access Tunneled HDC on 01/04 . SW for OP chair time Hep Bs Ag Positive ; Hep B Core Ab Reactive . . Pt reports he has been taking medicine for hep B thru [facility] following Hx of Acute blood loss anemia secondary to GIB. s/p cauterization of bleeding antral ulcer by GI team and PRBC in November Renal calculus - RK- Possible intrarenal stones. LK Possible intrarenal stones to include a 13 mm focus of increased echogenicity at the upper pole.No e/o obstruction reported . Pt denies any past history Left heel wound with dry gangrene and 1st toe ulcer- s/p CO2 angiograph on 12/28 Acute on chronic diastolic CHF; Echo 07/25 with preserved LV systolic function CAD; s/p PCI/RHEA to LAD in 2018. clinically stable, CP free. 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 COMMENT/RELEVANT DATA Meds Current Medications Medications (Trade) Dose Ordered Sig/Redd Start Time Stop Time Status Last Admin Dose Admin Acetaminophen (Tylenol) 500 mg 1X PRN PRN 01/15/21 12:45 01/16/21 12:44 DC Albumin Human 200 ml @ 200 mls/hr 1X PRN PRN 01/19/21 08:15 01/19/21 14:14 Amoxicillin/ Clavulanate Potassium (Augmentin 500/ 125mg) 1 tab DAILY 01/15/21 09:00 01/19/21 08:59 DC 01/18/21 09:12 1 TAB Apixaban (Eliquis) 2.5 mg BID 01/15/21 09:00 01/16/21 09:15 DC 01/15/21 21:20 2.5 MG Aspirin (Ecotrin) 81 mg DAILYWBKFT 01/15/21 08:00 01/16/21 09:16 DC 01/15/21 09:44 81 MG Atorvastatin Calcium (Lipitor) 40 mg HS 01/15/21 21:00 01/18/21 20:52 40 MG Buspirone HCl (Buspar) 10 mg PRN DAILY PRN 01/15/21 07:30 Calcium Carbonate/ Glycine (Tums) 500 mg PRN Q3HRS PRN 01/15/21 01:00 Darbepoetin Johnson (ARANESP for DIALYSIS PTS) 60 mcg Sa 01/15/21 21:00 01/15/21 21:21 60 MCG Dextrose (Dextrose 50%-Water Syringe) 12.5 gm PRN Q15MIN PRN 01/15/21 01:15 Dextrose (Iv Dextrose 5%) 250 ml PRN Q15MIN PRN 01/15/21 01:15 UNV Diphenhydramine HCl (Benadryl) 25 mg 1X PRN PRN 01/15/21 12:45 01/16/21 12:44 DC Doxycycline Hyclate (Vibra-Tab) 100 mg BID 01/15/21 09:00 01/19/21 08:59 DC 01/18/21 20:52 100 MG Ferrous Sulfate (Feosol) 325 mg DAILYWBKFT 01/18/21 08:00 01/19/21 08:44 325 MG Hydralazine HCl (Apresoline) 25 mg TID 01/15/21 09:00 01/18/21 20:51 25 MG Info (PHARMACY MONITORING -- do not chart) 1 each PRN DAILY PRN 01/19/21 08:15 Insulin Glargine (Lantus Syringe) 15 unit QHS 01/15/21 21:00 Cancel Insulin Human Lispro (HumaLOG) 0-7 UNITS TIDWMEALS 01/15/21 08:00 Lactobacillus Rhamnosus (Culturelle) 1 cap BID 01/15/21 09:00 01/19/21 08:44 1 CAP Magnesium Hydroxide (Milk Of Magnesia) 2,400 mg PRN Q12HR PRN 01/15/21 01:00 Metoprolol Succinate (Toprol Xl) 25 mg DAILY 01/15/21 09:00 01/18/21 09:11 25 MG Nystatin (Nystop) 1 luna BID 01/15/21 09:00 01/19/21 08:49 1 LUNA Ondansetron HCl (Zofran) 4 mg PRN Q6HRS PRN 01/15/21 01:00 Pantoprazole Sodium (Protonix) 40 mg DAILYAC 01/15/21 07:30 01/19/21 08:44 40 MG Sertraline HCl (Zoloft) 50 mg DAILY 01/15/21 09:00 01/19/21 08:44 50 MG Sodium Chloride 1,000 ml @ 400 mls/hr Q2H30M PRN 01/19/21 08:15 01/19/21 20:14 Tramadol HCl (Ultram) 50 mg PRN Q6HRS PRN 01/15/21 01:15 01/15/21 21:20 50 MG Lab Laboratory Tests Test 01/18/21 11:50 01/18/21 17:27 01/18/21 20:50 01/19/21 07:30 Glucose (Fingerstick) 150 mg/dL (70-99) 109 mg/dL (70-99) 138 mg/dL (70-99) Sodium Level 142 mmol/L (136-145) Potassium Level 3.6 mmol/L (3.5-5.1) Chloride Level 104 mmol/L (98-107) Carbon Dioxide Level 29 mmol/L (21-32) Anion Gap 9 (6-14) Blood Urea Nitrogen 27 mg/dL (8-26) Creatinine 3.7 mg/dL (0.7-1.3) Estimated GFR (Cockcroft-Gault) 16.2 Glucose Level 89 mg/dL (70-99) Calcium Level 7.8 mg/dL (8.5-10.1) Test 01/19/21 07:43 Glucose (Fingerstick) 89 mg/dL (70-99) Results All relevant outside records, renal labs, imaging studies, telemetry/EKG's were reviewed. Justicifation of Admission Dx: Justifications for Admission: Justification of Admission Dx: Yes BEATRIZ IBARRA MD Jan 19, 2021 10:54
--- NOTE | 2021-01-19 11:34 | NUR ---
SS following up with discharge planning. SS reviewed pt chart and discussed with pt RN. Pt is currently on room air. COVID19 negative. SS and [place] [address] spoke with manager product support, Carmelita, at [facility]. [facility] reporting that the next closest clinic available is in [place]. Carmelita attempting to reach pt and pt's sister, Phuong, , to discuss. SS left voicemail for pt's sister, Phuong. SS will continue to follow for discharge planning.
--- NOTE | 2021-01-19 12:53 | PDOC ---
Date of Service: DATE: 01/19/21 TIME: 12:46 Subjective: Subjective: Feels okay, eating okay. Objective: Objective: No GI concerns per nurse - plan seems to be eventual DC back to [facility] w/ plans for HD at same facility as last time? Vital Signs: Vital Signs Date Time Temp Pulse Resp B/P (MAP) Pulse Ox O2 Delivery O2 Flow Rate FiO2 01/19/21 08:00 Room Air 01/19/21 07:00 97.8 72 18 135/68 (90) 97 97.8 Labs: Laboratory Tests Test 01/18/21 17:27 01/18/21 20:50 01/19/21 07:30 01/19/21 07:43 Glucose (Fingerstick) 109 mg/dL 138 mg/dL 89 mg/dL Sodium Level 142 mmol/L Potassium Level 3.6 mmol/L Chloride Level 104 mmol/L Carbon Dioxide Level 29 mmol/L Anion Gap 9 Blood Urea Nitrogen 27 mg/dL Creatinine 3.7 mg/dL Estimated GFR (Cockcroft-Gault) 16.2 Glucose Level 89 mg/dL Calcium Level 7.8 mg/dL PE: GEN: dialzying LUNGS: CTAB HEART: RRR ABD: S/ND/NT NEURO/PSYCH: A & O 3 A/P: ESRD on HD, CAD, PVD, A Fib, CHF Chronic anemia H/o on PPI, Hep B on treatment through [facility] -- Continue same per GI. Encouraged him to communicate what he'd like to eat to staff. Will order Hgb for a.m. Justicifation of Admission Dx: Justifications for Admission: Justification of Admission Dx: Yes FABBY ROBERTSON Jan 19, 2021 12:53
[2021-01-19 15:00] VITALS: BP 99/73
--- NOTE | 2021-01-19 16:09 | NUR ---
Wound/Ostomy Care Wound Type/Assessment: Wound care follow up for multiple DFUs, VLUs and PU (see wound intervention for details). Pt known to wound care team from outpatient setting and previous admissions. All wounds cleansed and measured, pictures taken. Dr. Schmitz at bedside at time of assessment and requesting wound care provider to see pt for possible bedside debridement to left posterior heel. Wound vac dressing removed on left heel, will await until wound care provider evaluates to replace dressing, bone exposed noted on left heel at time of assessment, wound cover with Hydrofera blue transfer, abd and kerlix for now. Left dorsal foot and left lateral foot DTIs appear to have resolved now. Treatment Recommendations/Plan: Cleanse all wounds with wound wash or saline and pat dry. Bilateral lower legs, right lateral heel: cover with xeroform, abd and kerlix, change every 2-3 days. Right hip and bilateral buttocks/coccyx: cover with xeroform and foam, change every 2-3 days and prn. Left great toe: paint with betadine daily Right dorsal foot: skin prep and cover with abd and kerlix every 2-3 days Left posterior heel: hydrofera blue ready, abd and kerlix (plan to put wound vac back on 01/20/21) Education provided: pt educated on off loading to help heel wounds Offloading surface/device: P500 bed, pillows, purple wedge Recommended Referrals/Tests: n/a Discharge Recommendations for dressings: same as above.
[2021-01-19] MEDS ORDERED: ENTE0.5T PO (17:23)
[2021-01-19 19:00] VITALS: BP 111/54
--- NOTE | 2021-01-19 19:44 | NUR ---
Confirmed patient code status with pt. Patient states that he is a DNR. Per Dr.Wu jackson to change code status to DNR, verified with two nurses on phone (solomon RN/David RN) changed patients code status to DNR.
[2021-01-19] MEDS: ATORVASTATIN CALCIUM 40 MG TABLET. PO SCH (20:37)
[2021-01-19] MEDS: INSULIN GLARGINE SYRINGE. SQ SCH (20:41)
[2021-01-19 22:15] VITALS: BP 123/49
--- NOTE | 2021-01-19 22:37 | NUR ---
confirmed with Dr. Humphreys to continue holding Plavix.
[2021-01-20 02:43] VITALS: BP 159/77
[2021-01-20] MEDS ORDERED: ENTECAVIR 0.5 MG PO SCH (06:00)
[2021-01-20] MEDS: PANTOPRAZOLE 40 MG TABLET.DR. PO SCH (06:33)
[2021-01-20 07:00] VITALS: BP 124/74
[2021-01-20 08:14] LABS: HEMATOCRIT 24.5 % (39.0-53.0); RED BLOOD COUNT 2.84 x10^6/uL (4.30-5.70); RED CELL DISTRIBUTION WIDTH 18.3 % (11.5-14.5); WHITE BLOOD COUNT 8.9 x10^3/uL (4.0-11.0)
[2021-01-20 08:25] LABS: CALCIUM 7.8 mg/dL (8.5-10.1); CREATININE 2.9 mg/dL (0.7-1.3); GFR 21.4; POTASSIUM 3.7 mmol/L (3.5-5.1)
--- NOTE | 2021-01-20 09:34 | PDOC ---
PROGRESS NOTES Date of Service: DATE: 01/20/21 TIME: 09:34 Chief Complaint Chief Complaint IMPRESSION Acute volume overload - improved with dialysis Acute on chronic CHF exacerbation -due to fluid overload from missed dialysis sessions need ultrafiltration ESRD on HD - MWF via RIJ tunneled catheter placed 01/04/2021 by IR Normocytic anemia, possible chronic GI blood loss with EGD showing antral gastric ulcer s/p coil - will transfuse for Hb < 8 in cardiac patient, wait until dialysis Left lower extremity wound ulcer with dry gangrene - s/p sharp debridement in december on the , recovering with wound vac. Does have RLE superficial wounds as well. To be on augmentin and doxycycline PO an additional 4 days Severe protein malnutrition - research epidemiologist to see Diabetes mellitus type 2 - basal bolus plus insulin PVD - above A. fib - WILIAN lazar. Hold eliquis SSS status post PPM placement - stable Morbid obesity - counseled on lifestyle OHS/ROBB - needs outpatient sleep study HTN - cont treatment HLD - cont statin PLAN Eliquis for DVT prophylaxis ADA diet Full code Surrogate decision maker is Phuong Mathis Dispo - in for dialysis Recommend GI follow up , GI CONSULTED 6-14 37 Min pt exam, chart review, > 50% of time spent with exam, chart review, pt care coordination History of Present Illness History of Present Illness Mr Nunn is a 75 year old male [place] [employer] with PMHx DM 2, PVD, A. fib, SSS status post PPM placement, morbid obesity, OHS/ROBB chronic diastolic C HF, HTN, HLD, new ESRD who was sent here from [facility] for evaluation. He was recently initiated on hemodialysis outpatient to be initiated Sunday and has had complications with this as he showed up on 01/12/2021 for his first scheduled outpatient session was told he was not on the schedule and they did not have a [employer] lift to move him into his dialysis chair even if he did have a chair time and sent back to [facility], he returned on 01/14/2021 and a [employer] lift did not have lift net available to transport him into his dialysis chair and he was sent back to SNF and told to come to the emergency department for dialysis. He complains of worsening lower extremity edema and shortness of breath that has been progressive he has been gaining weight. Bilateral feet hurt. EKG ventricularly paced rhythm 60 bpm no P waves detectable. Chest radiograph cardiomegaly right-sided tunneled HD catheter, pulmonary edema. Labs WBC 9.7, Hb 8.1, platelets 210, NA 141, K4, BUN 39, CR 55, glucose 101, troponin 0.039, albumin 2.6 He had a long complicated hospital stay with progression to ESRD initiated on dialysis 01/04/2021 via tunneled HDC and s/p sharp left heel debridement on 12/30/2020 with wound VAC placed on left lower extremity. Upon chart review patient was seen in November 04 09/12/2020 for GI bleed.. Eliquis was actually restarted on 11/09/2020. And also had a pacemaker placed on 11/09/2020 and tolerated procedure well. Admitted for further care given multiple missed dialysis sessions since discharge and fluid overload. Afebrile overnight. Hb down to 7 from 8.1. No clear source of bleeding. His shortness of breath and swelling improved today. Had a dark stool. Feeling weak. No cp Plan: Hold ASA and eliquis Plan for dialysis in AM, given his cardiac history needs blood transfusion, will give with dialysis given no clear active bleeding and history of fluid overload. Given aranesp today. 6-15 Eliquis for DVT prophylaxis ADA diet Full code Surrogate decision maker is Phuong Mathis Dispo - in for dialysis Recommend GI follow up , GI CONSULTED 6-14 d/w rn 37 Min pt exam, chart review, > 50% of time spent with exam, chart review, pt care coordination H/o on PPI, Hep B on treatment through 6-16 Eliquis for DVT prophylaxis ADA diet Full code Surrogate decision maker is Phuong Mathis Dispo - in for dialysis Recommend GI follow up , GI CONSULTED 6-14 d/w rn 27 Min pt exam, chart review, > 50% of time spent with exam, chart review, pt care coordination H/o on PPI, Hep B on treatment through Left heel wound with dry gangrene and 1st toe ulcer- s/p CO2 angiograph on 12/28 Eliquis for DVT prophylaxis ADA diet Full code Surrogate decision maker is Phuong Mathis Dispo - in for dialysis Recommend GI follow up , GI CONSULTED - d/w rn dr soto to see before discharge d/w RN 37 Min pt exam, chart review D/C PLANNING , > 50% of time spent with exam, chart review, pt care coordination H/o on PPI, Hep B on treatment through [facility] Left heel wound with dry gangrene and 1st toe ulcer- s/p CO2 angiograph on 12/28 Vitals Vitals Vital Signs Date Time Temp Pulse Resp B/P (MAP) Pulse Ox O2 Delivery O2 Flow Rate FiO2 01/20/21 07:00 97.7 73 16 124/74 (91) 98 Room Air 97.7 Physical Exam General: Alert, Oriented X3, Cooperative, No acute distress Heart: Regular rate, Normal S1, Normal S2 Lungs: Clear, Other Abdomen: Normal bowel sounds, Soft, No tenderness Extremities: No cyanosis Skin: No rashes Labs LABS Laboratory Tests Test 01/19/21 13:40 01/19/21 16:56 01/19/21 20:17 01/20/21 07:55 Glucose (Fingerstick) 91 mg/dL (70-99) 135 mg/dL (70-99) 165 mg/dL (70-99) White Blood Count 8.9 x10^3/uL (4.0-11.0) Red Blood Count 2.84 x10^6/uL (4.30-5.70) Hemoglobin 8.0 g/dL (13.0-17.5) Hematocrit 24.5 % (39.0-53.0) Mean Corpuscular Volume 86 fL (79-100) Mean Corpuscular Hemoglobin 28 pg (25-35) Mean Corpuscular Hemoglobin Concent 33 g/dL (31-37) Red Cell Distribution Width 18.3 % (11.5-14.5) Platelet Count 183 x10^3/uL (140-400) Sodium Level 142 mmol/L (136-145) Potassium Level 3.7 mmol/L (3.5-5.1) Chloride Level 106 mmol/L (98-107) Carbon Dioxide Level 31 mmol/L (21-32) Anion Gap 5 (6-14) Blood Urea Nitrogen 21 mg/dL (8-26) Creatinine 2.9 mg/dL (0.7-1.3) Estimated GFR (Cockcroft-Gault) 21.4 Glucose Level 77 mg/dL (70-99) Calcium Level 7.8 mg/dL (8.5-10.1) Test 01/20/21 08:12 Glucose (Fingerstick) 77 mg/dL (70-99) Assessment and Plan Assessmemt and Plan Problems Medical Problems: (1) Missed dialysis Status: Acute (2) Pulmonary edema Status: Acute Comment Review of Relevant I have reviewed the following items mara (where applicable) has been applied. Labs Laboratory Tests Test 01/18/21 11:50 01/18/21 17:27 01/18/21 20:50 01/19/21 07:30 Glucose (Fingerstick) 150 mg/dL (70-99) 109 mg/dL (70-99) 138 mg/dL (70-99) Sodium Level 142 mmol/L (136-145) Potassium Level 3.6 mmol/L (3.5-5.1) Chloride Level 104 mmol/L (98-107) Carbon Dioxide Level 29 mmol/L (21-32) Anion Gap 9 (6-14) Blood Urea Nitrogen 27 mg/dL (8-26) Creatinine 3.7 mg/dL (0.7-1.3) Estimated GFR (Cockcroft-Gault) 16.2 Glucose Level 89 mg/dL (70-99) Calcium Level 7.8 mg/dL (8.5-10.1) Test 01/19/21 07:43 01/19/21 13:40 01/19/21 16:56 01/19/21 20:17 Glucose (Fingerstick) 89 mg/dL (70-99) 91 mg/dL (70-99) 135 mg/dL (70-99) 165 mg/dL (70-99) Test 01/20/21 07:55 01/20/21 08:12 White Blood Count 8.9 x10^3/uL (4.0-11.0) Red Blood Count 2.84 x10^6/uL (4.30-5.70) Hemoglobin 8.0 g/dL (13.0-17.5) Hematocrit 24.5 % (39.0-53.0) Mean Corpuscular Volume 86 fL (79-100) Mean Corpuscular Hemoglobin 28 pg (25-35) Mean Corpuscular Hemoglobin Concent 33 g/dL (31-37) Red Cell Distribution Width 18.3 % (11.5-14.5) Platelet Count 183 x10^3/uL (140-400) Sodium Level 142 mmol/L (136-145) Potassium Level 3.7 mmol/L (3.5-5.1) Chloride Level 106 mmol/L (98-107) Carbon Dioxide Level 31 mmol/L (21-32) Anion Gap 5 (6-14) Blood Urea Nitrogen 21 mg/dL (8-26) Creatinine 2.9 mg/dL (0.7-1.3) Estimated GFR (Cockcroft-Gault) 21.4 Glucose Level 77 mg/dL (70-99) Calcium Level 7.8 mg/dL (8.5-10.1) Glucose (Fingerstick) 77 mg/dL (70-99) Laboratory Tests Test 01/19/21 13:40 01/19/21 16:56 01/19/21 20:17 01/20/21 07:55 Glucose (Fingerstick) 91 mg/dL (70-99) 135 mg/dL (70-99) 165 mg/dL (70-99) White Blood Count 8.9 x10^3/uL (4.0-11.0) Red Blood Count 2.84 x10^6/uL (4.30-5.70) Hemoglobin 8.0 g/dL (13.0-17.5) Hematocrit 24.5 % (39.0-53.0) Mean Corpuscular Volume 86 fL (79-100) Mean Corpuscular Hemoglobin 28 pg (25-35) Mean Corpuscular Hemoglobin Concent 33 g/dL (31-37) Red Cell Distribution Width 18.3 % (11.5-14.5) Platelet Count 183 x10^3/uL (140-400) Sodium Level 142 mmol/L (136-145) Potassium Level 3.7 mmol/L (3.5-5.1) Chloride Level 106 mmol/L (98-107) Carbon Dioxide Level 31 mmol/L (21-32) Anion Gap 5 (6-14) Blood Urea Nitrogen 21 mg/dL (8-26) Creatinine 2.9 mg/dL (0.7-1.3) Estimated GFR (Cockcroft-Gault) 21.4 Glucose Level 77 mg/dL (70-99) Calcium Level 7.8 mg/dL (8.5-10.1) Test 01/20/21 08:12 Glucose (Fingerstick) 77 mg/dL (70-99) Microbiology 01/15/21 Blood Culture - Final, Complete NO GROWTH AFTER 5 DAYS Medications Current Medications Aspirin (Ecotrin) 81 mg DAILYWBKFT PO Last administered on 01/15/21at 09:44; Start 01/15/21 at 08:00; Stop 01/16/21 at 09:16; Status DC Atorvastatin Calcium (Lipitor) 40 mg HS PO Last administered on 01/19/21at 20:37; Start 01/15/21 at 21:00 Hydralazine HCl (Apresoline) 25 mg TID PO Last administered on 01/19/21at 20:38; Start 01/15/21 at 09:00 Metoprolol Succinate (Toprol Xl) 25 mg DAILY PO Last administered on 01/19/21at 13:42; Start 01/15/21 at 09:00 Pantoprazole Sodium (Protonix) 40 mg DAILYAC PO Last administered on 01/20/21at 06:33; Start 01/15/21 at 07:30 Apixaban (Eliquis) 2.5 mg BID PO Last administered on 01/15/21at 21:20; Start 01/15/21 at 09:00; Stop 01/16/21 at 09:15; Status DC Ondansetron HCl (Zofran) 4 mg PRN Q6HRS PRN IVP NAUSEA/VOMITING; Start 01/15/21 at 01:00 Calcium Carbonate/ Glycine (Tums) 500 mg PRN Q3HRS PRN PO UPSET STOMACH; Start 01/15/21 at 01:00 Acetaminophen (Tylenol) 650 mg PRN Q6HRS PRN PO Headaches, Temp > 101.5F; St art 01/15/21 at 01:00 Magnesium Hydroxide (Milk Of Magnesia) 2,400 mg PRN Q12HR PRN PO CONSTIPATION; Start 01/15/21 at 01:00 Tramadol HCl (Ultram) 50 mg PRN Q6HRS PRN PO PAIN Last administered on 01/15/21at 21:20; Start 01/15/21 at 01:15 Insulin Glargine (Lantus Syringe) 15 unit QHS SQ Last administered on 01/19/21at 20:41; Start 01/15/21 at 21:00 Insulin Human Lispro (HumaLOG) 0-7 UNITS TIDWMEALS SQ ; Start 01/15/21 at 08:00 Dextrose (Dextrose 50%-Water Syringe) 12.5 gm PRN Q15MIN PRN IV SEE COMMENTS; Start 01/15/21 at 01:15 Dextrose (Iv Dextrose 5%) 250 ml PRN Q15MIN PRN IV SEE COMMENTS; Start 01/15/21 at 01:15; Status UNV Amoxicillin/ Clavulanate Potassium (Augmentin 500/ 125mg) 1 tab DAILY PO Last administered on 01/18/21at 09:12; Start 01/15/21 at 09:00; Stop 01/19/21 at 08:59; Status DC Buspirone HCl (Buspar) 10 mg PRN DAILY PRN PO ANXIETY / AGITATION; Start 01/15/21 at 07:30 Doxycycline Hyclate (Vibra-Tab) 100 mg BID PO Last administered on 01/18/21at 20:52; Start 01/15/21 at 09:00; Stop 01/19/21 at 08:59; Status DC Insulin Glargine (Lantus Syringe) 15 unit QHS SQ ; Start 01/15/21 at 21:00; Status Cancel Lactobacillus Rhamnosus (Culturelle) 1 cap BID PO Last administered on 01/19/21at 20:37; Start 01/15/21 at 09:00 Nystatin (Nystop) 1 daniela BID TP Last administered on 01/19/21at 20:38; Start 01/15/21 at 09:00 Sertraline HCl (Zoloft) 50 mg DAILY PO Last administered on 01/19/21at 08:44; Start 01/15/21 at 09:00 Sodium Chloride 1,000 ml @ 1,000 mls/hr Q1H PRN IV hypotension; Start 01/15/21 at 12:45; Stop 01/15/21 at 18:44; Status DC Albumin Human 200 ml @ 200 mls/hr 1X PRN PRN IV Hypotension; Start 01/15/21 at 12:45; Stop 01/15/21 at 18:44; Status DC Acetaminophen (Tylenol) 500 mg 1X PRN PRN PO MILD PAIN / TEMP > 100.3'F; Start 01/15/21 at 12:45; Stop 01/16/21 at 12:44; Status DC Diphenhydramine HCl (Benadryl) 25 mg 1X PRN PRN IV ITCHING; Start 01/15/21 at 12:45; Stop 01/16/21 at 12:44; Status DC Diphenhydramine HCl (Benadryl) 25 mg 1X PRN PRN IV ITCHING; Start 01/15/21 at 12:45; Stop 01/16/21 at 12:44; Status DC Sodium Chloride 1,000 ml @ 400 mls/hr Q2H30M PRN IV PATENCY; Start 01/15/21 at 12:45; Stop 01/16/21 at 00:44; Status DC Info (PHARMACY MONITORING -- do not chart) 1 each PRN DAILY PRN MC SEE COMMENTS; Start 01/15/21 at 12:45; Status UNV Info (PHARMACY MONITORING -- do not chart) 1 each PRN DAILY PRN MC SEE COMMENTS; Start 01/15/21 at 12:45; Status Cancel Darbepoetin Johnson (ARANESP for DIALYSIS PTS) 60 mcg Sa SQ Last administered on 01/15/21at 21:21; Start 01/15/21 at 21:00 Sodium Chloride 1,000 ml @ 1,000 mls/hr Q1H PRN IV hypotension; Start 01/17/21 at 09:00; Stop 01/17/21 at 14:59; Status DC Sodium Chloride 1,000 ml @ 400 mls/hr Q2H30M PRN IV PATENCY; Start 01/17/21 at 09:00; Stop 01/17/21 at 20:59; Status DC Info (PHARMACY MONITORING -- do not chart) 1 each PRN DAILY PRN MC SEE COMMENTS; Start 01/17/21 at 09:00 Ferrous Sulfate (Feosol) 325 mg DAILYWBKFT PO Last administered on 01/19/21at 08:44; Start 01/18/21 at 08:00 Sodium Chloride 1,000 ml @ 1,000 mls/hr Q1H PRN IV hypotension; Start 01/19/21 at 08:15; Stop 01/19/21 at 14:14; Status DC Albumin Human 200 ml @ 200 mls/hr 1X PRN PRN IV Hypotension; Start 01/19/21 at 08:15; Stop 01/19/21 at 14:14; Status DC Sodium Chloride 1,000 ml @ 400 mls/hr Q2H30M PRN IV PATENCY; Start 01/19/21 at 08:15; Stop 01/19/21 at 20:14; Status DC Info (PHARMACY MONITORING -- do not chart) 1 each PRN DAILY PRN MC SEE COMMENTS; Start 01/19/21 at 08:15 Info (PHARMACY MONITORING -- do not chart) 1 each PRN DAILY PRN MC SEE COMMENTS; Start 01/19/21 at 08:15 Non-Formulary Medication (Entecavir (Baraclude)) 0.5 mg DAILY06 PO Last administered on 01/20/21at 06:33; Start 01/20/21 at 06:00 Active Scripts Active Omeprazole Magnesium 20 Mg Capsule.dr 1 Cap PO DAILY 30 Days Culturelle (Lactobacillus Rhamnosus Gg) 1 Each Cap.sprink 1 Cap PO BID 14 Days Aspirin Ec (Aspirin) 81 Mg Tablet.dr 81 Mg PO DAILYWBKFT 30 Days Doxycycline Hyclate 100 Mg Tablet 100 Mg PO BID 14 Days Amox Tr-K Clv 500-125 Mg Tab (Amoxicillin/Potassium Clav) 1 Each Tablet 1 Tab PO DAILY 14 Days Lantus (Insulin Glargine,Hum.rec.anlog) 100 Unit/1 Ml Vial 15 Unit SQ QHS 30 Days Acetaminophen Supp (Acetaminophen) 650 Mg Supp.rect 650 Mg IA PRN Q4HRS PRN 30 Days Hydralazine Hcl 25 Mg Tablet 25 Mg PO TID 30 Days Reported Baraclude (Entecavir) 0.5 Mg Tablet 0.5 Mg PO DAILY06 Vitamin C (Ascorbic Acid) 500 Mg Capsule 500 Mg PO BID Senokot (Sennosides) 8.6 Mg Tablet 1 Tab PO BID PRN 20 Days Nystatin 15 Gm Powder 1 Daniela TP BID 7 Days apply to affected area(s) Zoloft (Sertraline Hcl) 50 Mg Tablet 50 Mg PO DAILY Metoprolol Succinate ( Xl ) (Metoprolol Succinate) 25 Mg Tab.er.24h 25 Mg PO DAILY Eliquis (Apixaban) 5 Mg Tablet 2.5 Mg PO BID Slow Release Iron (Ferrous Sulfate) 160 Mg Tablet.er 160 Mg PO DAILY Buspirone Hcl 10 Mg Tablet 1 Tab PO PRN DAILY PRN Atorvastatin Calcium 40 Mg Tablet 40 Mg PO HS Vitals/I & O Vital Sign - Last 24 Hours 01/19/21 01/19/21 01/19/21 01/19/21 13:42 13:43 15:00 19:00 Temp 98.4 99.4 98.4 99.4 Pulse 77 77 78 85 Resp 18 16 B/P (MAP) 145/45 145/45 99/73 (82) 111/54 (73) Pulse Ox 97 93 O2 Delivery Room Air Room Air 01/19/21 01/19/21 01/19/21 01/20/21 19:54 20:38 22:15 02:43 Temp 98.9 98.7 98.9 98.7 Pulse 85 74 70 Resp 16 16 B/P (MAP) 111/54 123/49 (73) 159/77 (104) Pulse Ox 94 94 O2 Delivery Room Air Room Air Room Air 01/20/21 07:00 Temp 97.7 97.7 Pulse 73 Resp 16 B/P (MAP) 124/74 (91) Pulse Ox 98 O2 Delivery Room Air Intake and Output 01/19/21 01/19/21 01/20/21 15:00 23:00 07:00 Intake Total 100 ml Balance 100 ml Justicifation of Admission Dx: Justifications for Admission: Justification of Admission Dx: Yes SURY PATTERSON MD Jan 20, 2021 09:34
[2021-01-20] MEDS: SERTRALINE 50 MG TABLET. PO SCH (09:37)
[2021-01-20] MEDS: LACTOBACILLUS RHAMNOSUS GG 1 CAPSULE. PO SCH (09:37)
[2021-01-20] MEDS: FERROUS SULFATE 325 MG TABLET. PO SCH (09:37)
[2021-01-20] MEDS: METOPROLOL SUCC 24HR ER 25 MG TAB.ER.24H. PO SCH (09:38)
[2021-01-20] MEDS: INSULIN LISPRO 300 UNITS/3 ML VIAL. SQ SCH ×2 (09:39→12:00)
[2021-01-20] MEDS: NYSTATIN TOPICAL POWDER 15GM BOTTLE. TP SCH (09:39)
[2021-01-20] MEDS: hydrALAZINE 25 MG TABLET PO SCH (09:39)
--- NOTE | 2021-01-20 10:47 | PDOC ---
DATE OF SERVICE DATE: 01/20/21 TIME: 10:44 SUBJECTIVE ROS No complaints OBJECTIVE Vital Signs Vital Signs Date Time Temp Pulse Resp B/P (MAP) Pulse Ox O2 Delivery O2 Flow Rate FiO2 01/20/21 09:39 78 124/74 01/20/21 07:00 97.7 16 98 Room Air 97.7 I & 0 Intake and Output 01/20/21 07:00 Intake Total 100 ml Balance 100 ml Intake Oral 100 ml # Bowel Movements 1 PHYSICAL EXAM Physical Exam General: NAD HEENT: Atraumatic, OM moist Neck supple Lungs: Clear to auscultation Heart: Bradycardic, ESM aortic) Abdomen: Soft, NT Extremities: Bilat LE edema improved Neuro: grossly normal Psych/Mental Status: Mood NL lowery + , No cva or SP tenderness Skin No rash DIAGNOSIS/ASSESSMENT Assessment & Plan New Onset ESRD- Cardiorenal ,Initiated on Dialysis 01/04 , No indication for dialysis today Access Tunneled HDC on 01/04 . SW for OP chair time Hep Bs Ag Positive ; Hep B Core Ab Reactive .He was prescribed Entecavir 0.5 mg py Hepatology at [facility] .Has not been taking since his previous recent hospitalization at [facility] .Masood RN. GI following Hx of Acute blood loss anemia secondary to GIB. s/p cauterization of bleeding antral ulcer by GI team and PRBC in November Renal calculus - RK- Possible intrarenal stones. LK Possible intrarenal stones to include a 13 mm focus of increased echogenicity at the upper pole.No e/o obstruction reported . Pt denies any past history Left heel wound with dry gangrene and 1st toe ulcer- s/p CO2 angiograph on 12/28 Acute on chronic diastolic CHF; Echo 07/25 with preserved LV systolic function CAD; s/p PCI/RHEA to LAD in 2018. clinically stable, CP free. PAD s/p past orbital atherectomy/FILLER BLOCK INSERTER REMOVER to right posterior tibial artery. COMMENT/RELEVANT DATA Meds Current Medications Medications (Trade) Dose Ordered Sig/Redd Start Time Stop Time Status Last Admin Dose Admin Acetaminophen (Tylenol) 500 mg 1X PRN PRN 01/15/21 12:45 01/16/21 12:44 DC Albumin Human 200 ml @ 200 mls/hr 1X PRN PRN 01/19/21 08:15 01/19/21 14:14 DC Amoxicillin/ Clavulanate Potassium (Augmentin 500/ 125mg) 1 tab DAILY 01/15/21 09:00 01/19/21 08:59 DC 01/18/21 09:12 1 TAB Apixaban (Eliquis) 2.5 mg BID 01/15/21 09:00 01/16/21 09:15 DC 01/15/21 21:20 2.5 MG Aspirin (Ecotrin) 81 mg DAILYWBKFT 01/15/21 08:00 01/16/21 09:16 DC 01/15/21 09:44 81 MG Atorvastatin Calcium (Lipitor) 40 mg HS 01/15/21 21:00 01/19/21 20:37 40 MG Buspirone HCl (Buspar) 10 mg PRN DAILY PRN 01/15/21 07:30 Calcium Carbonate/ Glycine (Tums) 500 mg PRN Q3HRS PRN 01/15/21 01:00 Darbepoetin Johnson (ARANESP for DIALYSIS PTS) 60 mcg Sa 01/15/21 21:00 01/15/21 21:21 60 MCG Dextrose (Dextrose 50%-Water Syringe) 12.5 gm PRN Q15MIN PRN 01/15/21 01:15 Dextrose (Iv Dextrose 5%) 250 ml PRN Q15MIN PRN 01/15/21 01:15 UNV Diphenhydramine HCl (Benadryl) 25 mg 1X PRN PRN 01/15/21 12:45 01/16/21 12:44 DC Doxycycline Hyclate (Vibra-Tab) 100 mg BID 01/15/21 09:00 01/19/21 08:59 DC 01/18/21 20:52 100 MG Ferrous Sulfate (Feosol) 325 mg DAILYWBKFT 01/18/21 08:00 01/20/21 09:37 325 MG Hydralazine HCl (Apresoline) 25 mg TID 01/15/21 09:00 01/20/21 09:39 25 MG Info (PHARMACY MONITORING -- do not chart) 1 each PRN DAILY PRN 01/19/21 08:15 Insulin Glargine (Lantus Syringe) 15 unit QHS 01/15/21 21:00 Cancel Insulin Human Lispro (HumaLOG) 0-7 UNITS TIDWMEALS 01/15/21 08:00 Lactobacillus Rhamnosus (Culturelle) 1 cap BID 01/15/21 09:00 01/20/21 09:37 1 CAP Magnesium Hydroxide (Milk Of Magnesia) 2,400 mg PRN Q12HR PRN 01/15/21 01:00 Metoprolol Succinate (Toprol Xl) 25 mg DAILY 01/15/21 09:00 01/20/21 09:38 25 MG Non-Formulary Medication (Entecavir (Baraclude)) 0.5 mg DAILY06 01/20/21 06:00 01/20/21 06:33 0.5 MG Nystatin (Nystop) 1 luna BID 01/15/21 09:00 01/20/21 09:39 1 LUNA Ondansetron HCl (Zofran) 4 mg PRN Q6HRS PRN 01/15/21 01:00 Pantoprazole Sodium (Protonix) 40 mg DAILYAC 01/15/21 07:30 01/20/21 06:33 40 MG Sertraline HCl (Zoloft) 50 mg DAILY 01/15/21 09:00 01/20/21 09:37 50 MG Sodium Chloride 1,000 ml @ 400 mls/hr Q2H30M PRN 01/19/21 08:15 01/19/21 20:14 DC Tramadol HCl (Ultram) 50 mg PRN Q6HRS PRN 01/15/21 01:15 01/15/21 21:20 50 MG Lab Laboratory Tests Test 01/19/21 13:40 01/19/21 16:56 01/19/21 20:17 01/20/21 07:55 Glucose (Fingerstick) 91 mg/dL (70-99) 135 mg/dL (70-99) 165 mg/dL (70-99) White Blood Count 8.9 x10^3/uL (4.0-11.0) Red Blood Count 2.84 x10^6/uL (4.30-5.70) Hemoglobin 8.0 g/dL (13.0-17.5) Hematocrit 24.5 % (39.0-53.0) Mean Corpuscular Volume 86 fL (79-100) Mean Corpuscular Hemoglobin 28 pg (25-35) Mean Corpuscular Hemoglobin Concent 33 g/dL (31-37) Red Cell Distribution Width 18.3 % (11.5-14.5) Platelet Count 183 x10^3/uL (140-400) Sodium Level 142 mmol/L (136-145) Potassium Level 3.7 mmol/L (3.5-5.1) Chloride Level 106 mmol/L (98-107) Carbon Dioxide Level 31 mmol/L (21-32) Anion Gap 5 (6-14) Blood Urea Nitrogen 21 mg/dL (8-26) Creatinine 2.9 mg/dL (0.7-1.3) Estimated GFR (Cockcroft-Gault) 21.4 Glucose Level 77 mg/dL (70-99) Calcium Level 7.8 mg/dL (8.5-10.1) Test 01/20/21 08:12 Glucose (Fingerstick) 77 mg/dL (70-99) Results All relevant outside records, renal labs, imaging studies, telemetry/EKG's were reviewed. Justicifation of Admission Dx: Justifications for Admission: Justification of Admission Dx: Yes BEATRIZ IBARRA MD Jan 20, 2021 10:47
[2021-01-20 11:00] VITALS: BP 120/59
--- NOTE | 2021-01-20 11:17 | PDOC3 ---
Discharge Summary Date of Admission: Jan 15, 2021 Date of Discharge: Jan 20, 2021 Follow-Up: 1-2 days Admitting Diagnosis comment: HPI History of Present Illness History of Present Illness Mr Nunn is a 75 year old male [place] [employer] with PMHx DM 2, PVD, A. fib, SSS status post PPM placement, morbid obesity, OHS/ROBB chronic diastolic CHF, HTN, HLD, new ESRD who was sent here from [facility] for evaluation. He was recently initiated on hemodialysis outpatient to be initiated Sunday and has had complications with this as he showed up on 01/12/2021 for his first scheduled outpatient session was told he was not on the schedule and they did not have a [employer] lift to move him into his dialysis chair even if he did have a chair time and sent back to [facility], he returned on 01/14/2021 and a [employer] lift did not have lift net available to transport him into his dialysis chair and he was sent back to [facility] and told to come to the emergency department for dialysis. He complains of worsening lower extremity edema and shortness of breath that has been progressive he has been gaining weight. Bilateral feet hurt. EKG ventricularly paced rhythm 60 bpm no P waves detectable. Chest radiograph cardiomegaly right-sided tunneled HD catheter, pulmonary edema. Labs WBC 9.7, Hb 8.1, platelets 210, NA 141, K4, BUN 39, CR 55, glucose 101, troponin 0.039, albumin 2.6 He had a long complicated hospital stay with progression to ESRD initiated on dialysis 01/04/2021 via tunneled HDC and s/p sharp left heel debridement on 12/30/2020 with wound VAC placed on left lower extremity. Upon chart review patient was seen in November 04 09/12/2020 for GI bleed.. Eliquis was actually restarted on 11/09/2020. And also had a pacemaker placed on 11/09/2020 and tolerated procedure well. Admitted for further care given multiple missed dialysis sessions since discharge and fluid overload. COMPLICATIONS NONE D/C CONDITION FAIR PROGNOSIS GUARDED D/C DIET RENAL CONSULTS WOUND CARE, DR FLORES D/C TO SNF SEE WOUND CARE ROSEMARIE DISCHARGE DX D/C PLANNING 40 MIN Chief Complaint IMPRESSION Acute volume overload - improved with dialysis Acute on chronic CHF exacerbation -due to fluid overload from missed dialysis sessions need ultrafiltration ESRD on HD - MWF via RIJ tunneled catheter placed 01/04/2021 by IR Normocytic anemia, possible chronic GI blood loss with EGD showing antral gastric ulcer s/p coil - will transfuse for Hb < 8 in cardiac patient, wait until dialysis Left lower extremity wound ulcer with dry gangrene - s/p sharp debridement in december on the , recovering with wound vac. Does have RLE superficial wounds as well. 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 fib - BB. cady Hold eliquis SSS status post PPM placement - stable Morbid obesity - counseled on lifestyle OHS/ROBB - needs outpatient sleep study HTN - cont treatment HLD - cont statin PLAN Eliquis for DVT prophylaxis ADA diet Full code Surrogate decision maker is Phuong Mathis Dispo - in for dialysis Recommend GI follow up , GI CONSULTED 6-14 37 Min pt exam, chart review, > 50% of time spent with exam, chart review, pt care coordination History of Present Illness History of Present Illness Mr Nunn is a 75 year old male [place] [employer] with PMHx DM 2, PVD, A. fib, SSS status post PPM placement, morbid obesity, OHS/ROBB chronic diastolic CHF, HTN, HLD, new ESRD who was sent here from [facility] for evaluation. He was recently initiated on hemodialysis outpatient to be initiated Sunday and has had complications with this as he showed up on 01/12/2021 for his first scheduled outpatient session was told he was not on the schedule and they did not have a [employer] lift to move him into his dialysis chair even if he did have a chair time and sent back to [facility], he returned on 01/14/2021 and a [employer] lift did not have lift net available to transport him into his dialysis chair and he was sent back to [facility] and told to come to the emergency department for dialysis. He complains of worsening lower extremity edema and shortness of breath that has been progressive he has been gaining weight. Bilateral feet hurt. EKG ventricularly paced rhythm 60 bpm no P waves detectable. Chest radiograph cardiomegaly right-sided tunneled HD catheter, pulmonary edema. Labs WBC 9.7, Hb 8.1, platelets 210, NA 141, K4, BUN 39, CR 55, glucose 101, troponin 0.039, albumin 2.6 He had a long complicated hospital stay with progression to ESRD initiated on dialysis 01/04/2021 via tunneled HDC and s/p sharp left heel debridement on 12/30/2020 with wound VAC placed on left lower extremity. Upon chart review patient was seen in November 04 09/12/2020 for GI bleed.. Eliquis was actually restarted on 11/09/2020. And also had a pacemaker placed on 11/09/2020 and tolerated procedure well. Admitted for further care given multiple missed dialysis sessions since discharge and fluid overload. Afebrile overnight. Hb down to 7 from 8.1. No clear source of bleeding. His shortness of breath and swelling improved today. Had a dark stool. Feeling weak. No cp Plan: Hold ASA and eliquis Plan for dialysis in AM, given his cardiac history needs blood transfusion, will give with dialysis given no clear active bleeding and history of fluid overload. Given aranesp today. -15 Eliquis for DVT prophylaxis ADA diet Full code Surrogate decision maker is Phuong Mathis Dispo - in for dialysis Recommend GI follow up , GI CONSULTED 6-14 d/w rn 37 Min pt exam, chart review, > 50% of time spent with exam, chart review, pt c are coordination H/o on PPI, Hep B on treatment through 16 Eliquis for DVT prophylaxis ADA diet Full code Surrogate decision maker is Phuong Mathis Dispo - in for dialysis Recommend GI follow up , GI CONSULTED 6-14 d/w rn 27 Min pt exam, chart review, > 50% of time spent with exam, chart review, pt care coordination H/o on PPI, Hep B on treatment through Left heel wound with dry gangrene and 1st toe ulcer- s/p CO2 angiograph on 12/28 6-17 Eliquis for DVT prophylaxis ADA diet Full code Surrogate decision maker is Phuong Mathis Dispo - in for dialysis Recommend GI follow up , GI CONSULTED 6-14 d/w rn dr soto to see before discharge d/w RN 37 Min pt exam, chart review D/C PLANNING , > 50% of time spent with exam, chart review, pt care coordination H/o on PPI, Hep B on treatment through [facility] Left heel wound with dry gangrene and 1st toe ulcer- s/p CO2 angiograph on 12/28 Vitals Vitals Vital Signs Date Time Temp Pulse Resp B/P (MAP) Pulse Ox O2 Delivery O2 Flow Rate FiO2 01/20/21 07:00 97.7 73 16 124/74 (91) 98 Room Air 97.7 Physical Exam General: Alert, Oriented X3, Cooperative, No acute distress Heart: Regular rate, Normal S1, Normal S2 Lungs: Clear, Other Abdomen: Normal bowel sounds, Soft, No tenderness Extremities: No cyanosis Skin: No rashes FINAL DIAGNOSIS Problems Medical Problems: (1) Missed dialysis Status: Acute (2) Pulmonary edema Status: Acute Brief Hospital Course Mr. Nunn is a 75 old [sex] who presented with [ VOLUME OVERLOAD, CHF ] CONDITION AT DISCHARGE: Improved Discharge Medications Current Medications Aspirin (Ecotrin) 81 mg DAILYWBKFT PO Last administered on 01/15/21at 09:44; Start 01/15/21 at 08:00; Stop 01/16/21 at 09:16; Status DC Atorvastatin Calcium (Lipitor) 40 mg HS PO Last administered on 01/19/21at 20:37; Start 01/15/21 at 21:00 Hydralazine HCl (Apresoline) 25 mg TID PO Last administered on 01/20/21at 09:39; Start 01/15/21 at 09:00 Metoprolol Succinate (Toprol Xl) 25 mg DAILY PO Last administered on 01/20/21at 09:38; Start 01/15/21 at 09:00 Pantoprazole Sodium (Protonix) 40 mg DAILYAC PO Last administered on 01/20/21at 06:33; Start 01/15/21 at 07:30 Apixaban (Eliquis) 2.5 mg BID PO Last administered on 01/15/21at 21:20; Start 01/15/21 at 09:00; Stop 01/16/21 at 09:15; Status DC Ondansetron HCl (Zofran) 4 mg PRN Q6HRS PRN IVP NAUSEA/VOMITING; Start 01/15/21 at 01:00 Calcium Carbonate/ Glycine (Tums) 500 mg PRN Q3HRS PRN PO UPSET STOMACH; Start 01/15/21 at 01:00 Acetaminophen (Tylenol) 650 mg PRN Q6HRS PRN PO Headaches, Temp > 101.5F; Start 01/15/21 at 01:00 Magnesium Hydroxide (Milk Of Magnesia) 2,400 mg PRN Q12HR PRN PO CONSTIPATION; Start 01/15/21 at 01:00 Tramadol HCl (Ultram) 50 mg PRN Q6HRS PRN PO PAIN Last administered on 01/15/21at 21:20; Start 01/15/21 at 01:15 Insulin Glargine (Lantus Syringe) 15 unit QHS SQ Last administered on 01/19/21at 20:41; Start 01/15/21 at 21:00 Insulin Human Lispro (HumaLOG) 0-7 UNITS TIDWMEALS SQ ; Start 01/15/21 at 08:00 Dextrose (Dextrose 50%-Water Syringe) 12.5 gm PRN Q15MIN PRN IV SEE COMMENTS; Start 01/15/21 at 01:15 Dextrose (Iv Dextrose 5%) 250 ml PRN Q15MIN PRN IV SEE COMMENTS; Start 01/15/21 at 01:15; Status UNV Amoxicillin/ Clavulanate Potassium (Augmentin 500/ 125mg) 1 tab DAILY PO Last administered on 01/18/21at 09:12; Start 01/15/21 at 09:00; Stop 01/19/21 at 08:59; Status DC Buspirone HCl (Buspar) 10 mg PRN DAILY PRN PO ANXIETY / AGITATION; Start 01/15/21 at 07:30 Doxycycline Hyclate (Vibra-Tab) 100 mg BID PO Last administered on 01/18/21at 20:52; Start 01/15/21 at 09:00; Stop 01/19/21 at 08:59; Status DC Insulin Glargine (Lantus Syringe) 15 unit QHS SQ ; Start 01/15/21 at 21:00; S tatus Cancel Lactobacillus Rhamnosus (Culturelle) 1 cap BID PO Last administered on 01/20/21at 09:37; Start 01/15/21 at 09:00 Nystatin (Nystop) 1 daniela BID TP Last administered on 01/20/21at 09:39; Start 01/15/21 at 09:00 Sertraline HCl (Zoloft) 50 mg DAILY PO Last administered on 01/20/21at 09:37; Start 01/15/21 at 09:00 Sodium Chloride 1,000 ml @ 1,000 mls/hr Q1H PRN IV hypotension; Start 01/15/21 at 12:45; Stop 01/15/21 at 18:44; Status DC Albumin Human 200 ml @ 200 mls/hr 1X PRN PRN IV Hypotension; Start 01/15/21 at 12:45; Stop 01/15/21 at 18:44; Status DC Acetaminophen (Tylenol) 500 mg 1X PRN PRN PO MILD PAIN / TEMP > 100.3'F; Start 01/15/21 at 12:45; Stop 01/16/21 at 12:44; Status DC Diphenhydramine HCl (Benadryl) 25 mg 1X PRN PRN IV ITCHING; Start 01/15/21 at 12:45; Stop 01/16/21 at 12:44; Status DC Diphenhydramine HCl (Benadryl) 25 mg 1X PRN PRN IV ITCHING; Start 01/15/21 at 12:45; Stop 01/16/21 at 12:44; Status DC Sodium Chloride 1,000 ml @ 400 mls/hr Q2H30M PRN IV PATENCY; Start 01/15/21 at 12:45; Stop 01/16/21 at 00:44; Status DC Info (PHARMACY MONITORING -- do not chart) 1 each PRN DAILY PRN MC SEE COMMENTS; Start 01/15/21 at 12:45; Status UNV Info (PHARMACY MONITORING -- do not chart) 1 each PRN DAILY PRN MC SEE COMMENTS; Start 01/15/21 at 12:45; Status Cancel Darbepoetin Johnson (ARANESP for DIALYSIS PTS) 60 mcg Sa SQ Last administered on 01/15/21at 21:21; Start 01/15/21 at 21:00 Sodium Chloride 1,000 ml @ 1,000 mls/hr Q1H PRN IV hypotension; Start 01/17/21 at 09:00; Stop 01/17/21 at 14:59; Status DC Sodium Chloride 1,000 ml @ 400 mls/hr Q2H30M PRN IV PATENCY; Start 01/17/21 at 09:00; Stop 01/17/21 at 20:59; Status DC Info (PHARMACY MONITORING -- do not chart) 1 each PRN DAILY PRN MC SEE COMMENTS; Start 01/17/21 at 09:00 Ferrous Sulfate (Feosol) 325 mg DAILYWBKFT PO Last administered on 01/20/21at 09:37; Start 01/18/21 at 08:00 Sodium Chloride 1,000 ml @ 1,000 mls/hr Q1H PRN IV hypotension; Start 01/19/21 at 08:15; Stop 01/19/21 at 14:14; Status DC Albumin Human 200 ml @ 200 mls/hr 1X PRN PRN IV Hypotension; Start 01/19/21 at 08:15; Stop 01/19/21 at 14:14; Status DC Sodium Chloride 1,000 ml @ 400 mls/hr Q2H30M PRN IV PATENCY; Start 01/19/21 at 08:15; Stop 01/19/21 at 20:14; Status DC Info (PHARMACY MONITORING -- do not chart) 1 each PRN DAILY PRN MC SEE COMMENTS; Start 01/19/21 at 08:15 Info (PHARMACY MONITORING -- do not chart) 1 each PRN DAILY PRN MC SEE COMMENTS; Start 01/19/21 at 08:15 Non-Formulary Medication (Entecavir (Baraclude)) 0.5 mg DAILY06 PO Last administered on 01/20/21at 06:33; Start 01/20/21 at 06:00 Active Scripts Active Omeprazole Magnesium 20 Mg Capsule. 1 Cap PO DAILY 30 Days Culturelle (Lactobacillus Rhamnosus Gg) 1 Each Cap.sprink 1 Cap PO BID 14 Days Aspirin Ec (Aspirin) 81 Mg Tablet. 81 Mg PO DAILYWBKFT 30 Days Doxycycline Hyclate 100 Mg Tablet 100 Mg PO BID 14 Days Amox Tr-K Clv 500-125 Mg Tab (Amoxicillin/Potassium Clav) 1 Each Tablet 1 Tab PO DAILY 14 Days Lantus (Insulin Glargine,Hum.rec.anlog) 100 Unit/1 Ml Vial 15 Unit SQ QHS 30 Days Acetaminophen Supp (Acetaminophen) 650 Mg Supp.rect 650 Mg VA PRN Q4HRS PRN 30 Days Hydralazine Hcl 25 Mg Tablet 25 Mg PO TID 30 Days Reported Baraclude (Entecavir) 0.5 Mg Tablet 0.5 Mg PO DAILY06 Vitamin C (Ascorbic Acid) 500 Mg Capsule 500 Mg PO BID Senokot (Sennosides) 8.6 Mg Tablet 1 Tab PO BID PRN 20 Days Nystatin 15 Gm Powder 1 Daniela TP BID 7 Days apply to affected area(s) Zoloft (Sertraline Hcl) 50 Mg Tablet 50 Mg PO DAILY Metoprolol Succinate ( Xl ) (Metoprolol Succinate) 25 Mg Tab.er.24h 25 Mg PO DAILY Eliquis (Apixaban) 5 Mg Tablet 2.5 Mg PO BID Slow Release Iron (Ferrous Sulfate) 160 Mg Tablet.er 160 Mg PO DAILY Buspirone Hcl 10 Mg Tablet 1 Tab PO PRN DAILY PRN Atorvastatin Calcium 40 Mg Tablet 40 Mg PO HS Vital Signs Vital Signs Date Time Temp Pulse Resp B/P (MAP) Pulse Ox O2 Delivery O2 Flow Rate FiO2 01/20/21 09:39 78 124/74 01/20/21 07:00 97.7 16 98 Room Air 97.7 Labs Laboratory Tests Test 01/18/21 11:50 01/18/21 17:27 01/18/21 20:50 01/19/21 07:30 Glucose (Fingerstick) 150 mg/dL (70-99) 109 mg/dL (70-99) 138 mg/dL (70-99) Sodium Level 142 mmol/L (136-145) Potassium Level 3.6 mmol/L (3.5-5.1) Chloride Level 104 mmol/L (98-107) Carbon Dioxide Level 29 mmol/L (21-32) Anion Gap 9 (6-14) Blood Urea Nitrogen 27 mg/dL (8-26) Creatinine 3.7 mg/dL (0.7-1.3) Estimated GFR (Cockcroft-Gault) 16.2 Glucose Level 89 mg/dL (70-99) Calcium Level 7.8 mg/dL (8.5-10.1) Test 01/19/21 07:43 01/19/21 13:40 01/19/21 16:56 01/19/21 20:17 Glucose (Fingerstick) 89 mg/dL (70-99) 91 mg/dL (70-99) 135 mg/dL (70-99) 165 mg/dL (70-99) Test 01/20/21 07:55 01/20/21 08:12 White Blood Count 8.9 x10^3/uL (4.0-11.0) Red Blood Count 2.84 x10^6/uL (4.30-5.70) Hemoglobin 8.0 g/dL (13.0-17.5) Hematocrit 24.5 % (39.0-53.0) Mean Corpuscular Volume 86 fL (79-100) Mean Corpuscular Hemoglobin 28 pg (25-35) Mean Corpuscular Hemoglobin Concent 33 g/dL (31-37) Red Cell Distribution Width 18.3 % (11.5-14.5) Platelet Count 183 x10^3/uL (140-400) Sodium Level 142 mmol/L (136-145) Potassium Level 3.7 mmol/L (3.5-5.1) Chloride Level 106 mmol/L (98-107) Carbon Dioxide Level 31 mmol/L (21-32) Anion Gap 5 (6-14) Blood Urea Nitrogen 21 mg/dL (8-26) Creatinine 2.9 mg/dL (0.7-1.3) Estimated GFR (Cockcroft-Gault) 21.4 Glucose Level 77 mg/dL (70-99) Calcium Level 7.8 mg/dL (8.5-10.1) Glucose (Fingerstick) 77 mg/dL (70-99) Laboratory Tests Test 01/19/21 13:40 01/19/21 16:56 01/19/21 20:17 01/20/21 07:55 Glucose (Fingerstick) 91 mg/dL (70-99) 135 mg/dL (70-99) 165 mg/dL (70-99) White Blood Count 8.9 x10^3/uL (4.0-11.0) Red Blood Count 2.84 x10^6/uL (4.30-5.70) Hemoglobin 8.0 g/dL (13.0-17.5) Hematocrit 24.5 % (39.0-53.0) Mean Corpuscular Volume 86 fL (79-100) Mean Corpuscular Hemoglobin 28 pg (25-35) Mean Corpuscular Hemoglobin Concent 33 g/dL (31-37) Red Cell Distribution Width 18.3 % (11.5-14.5) Platelet Count 183 x10^3/uL (140-400) Sodium Level 142 mmol/L (136-145) Potassium Level 3.7 mmol/L (3.5-5.1) Chloride Level 106 mmol/L (98-107) Carbon Dioxide Level 31 mmol/L (21-32) Anion Gap 5 (6-14) Blood Urea Nitrogen 21 mg/dL (8-26) Creatinine 2.9 mg/dL (0.7-1.3) Estimated GFR (Cockcroft-Gault) 21.4 Glucose Level 77 mg/dL (70-99) Calcium Level 7.8 mg/dL (8.5-10.1) Test 01/20/21 08:12 Glucose (Fingerstick) 77 mg/dL (70-99) Allergies Allergies Coded Allergies Type Severity Reaction Last Updated Verified Sulfa (Sulfonamide Antibiotics) Adverse Reaction Intermediate Nausea and Vomiting 12/21/20 Yes Disposition/Orders: Other (D/C TO SNF) Justicifation of Admission Dx: Justifications for Admission: Justification of Admission Dx: Yes SURY PATTERSON MD Jan 20, 2021 11:17
[2021-01-20] MEDS ORDERED: INSU100V35 SQ (11:20)
[2021-01-20] MEDS ORDERED: ACET325T21 PO (11:20)
--- NOTE | 2021-01-20 11:23 | SNU/HH DC ---
DISCHARGE ORDERS DISCHARGE INFORMATION: DISCHARGE DATE: Jan 20, 2021 FINAL DIAGNOSIS Problems Medical Problems: (1) Missed dialysis Status: Acute (2) Pulmonary edema Status: Acute CONDITION ON DISCHARGE: Stable CODE STATUS: Code Status: Full ASSISTED: SNF STAY <30 DAYS: Yes HOSPICE: HOSPICE: No HOSPICE EVAL & TREAT: No LTAC: ADMIT TO LTAC: No POST DISCHARGE ORDERS: ACTIVITY ORDERS: Activity as tolerated WEIGHT BEARING STATUS: As tolerated DIET AFTER DISCHARGE: ADA WOUND/INCISION CARE: Change dressing, Reinforce dressing PRN CHECKS AFTER DISCHARGE: CHECKS AFTER DISCHARGE: Check blood press - daily, Check blood sugar, ac/hs FOLLOW-UP: LAB ORDERS FOR FOLLOW-UP: RENAL PANEL IN 3 DAYS TREATMENT/EQUIPMENT ORDERS: ADAPTIVE EQUIPMENT NEEDED: Front wheeled walker RESPIRATORY EQUIPMENT NEEDED: Oxygen Physical Therapy For: Evalulation/Treatment Occupational Therapy For: Evaluation/Treatment Speech Language Pathology For: Evaluation/Treatment DISCHARGE MEDICATIONS: Home Meds Active Scripts Insulin Lispro (Admelog) 100 Unit/1 Ml Vial, 0 UNITS SQ TIDWMEALS for PER SS INSULIN for 30 Days, #2 EACH Prov:SURY PATTERSON MD 01/20/21 Acetaminophen (ACETAMINOPHEN) 325 Mg Tablet, 650 MG PO PRN Q6HRS PRN for Headaches, Temp > 101.5F for 30 Days, #30 TAB Prov:SURY PATTERSON MD 01/20/21 Omeprazole Magnesium (OMEPRAZOLE MAGNESIUM) 20 Mg Capsule.dr, 1 CAP PO DAILY for GERD for 30 Days, #30 CAP 0 Refills Prov:JAKE PATTON MD 01/11/21 Lactobacillus Rhamnosus Gg (CULTURELLE) 1 Each Cap.sprink, 1 CAP PO BID for Cellulitis for 14 Days, #28 CAP Prov:JAKE PATTON MD 01/11/21 Aspirin (ASPIRIN EC) 81 Mg Tablet.dr, 81 MG PO DAILYWBKFT for CAD for 30 Days, #30 TAB.SR 3 Refills Prov:JAKE PATTON MD 01/11/21 Insulin Glargine,Hum.rec.anlog (LANTUS) 100 Unit/1 Ml Vial, 15 UNIT SQ QHS for DIABETES for 30 Days, #2 EACH Prov:SURY PATTERSON MD 11/10/20 Acetaminophen (ACETAMINOPHEN SUPP) 650 Mg Supp.rect, 650 MG WV PRN Q4HRS PRN for TEMP OVER 100.4F OR MILD PAIN for 30 Days, #20 SUPP.RECT Prov:SURY PATTERSON MD 11/10/20 Hydralazine Hcl (HYDRALAZINE HCL) 25 Mg Tablet, 25 MG PO TID for BLOOD PRESSURE for 30 Days, #90 TAB Prov:SURY PATTERSON MD 11/10/20 Reported Medications Entecavir (BARACLUDE) 0.5 Mg Tablet, 0.5 MG PO DAILY06 for hep B, TAB 01/19/21 Ascorbic Acid (Vitamin C) 500 Mg Capsule, 500 MG PO BID for supplement, CAP 12/20/20 Sennosides (SENOKOT) 8.6 Mg Tablet, 1 TAB PO BID PRN for CONSTIPATION for 20 Days, #40 TAB 0 Refills 12/20/20 Nystatin (NYSTATIN) 15 Gm Powder, 1 CLARKE TP BID for yeast for 7 Days, #1 BOTTLE 0 Refills apply to affected area(s) 12/20/20 Sertraline Hcl (ZOLOFT) 50 Mg Tablet, 50 MG PO DAILY for ANTI-DEPRESSANT, TAB 0 Refills 12/20/20 Metoprolol Succinate (METOPROLOL SUCCINATE ( XL )) 25 Mg Tab.er.24h, 25 MG PO DAILY for htn, #30 TAB 0 Refills 12/20/20 Ferrous Sulfate (SLOW RELEASE IRON) 160 Mg Tablet.er, 160 MG PO DAILY for supplement/anemia, TAB.SR 11/04/20 Buspirone Hcl (BUSPIRONE HCL) 10 Mg Tablet, 1 TAB PO PRN DAILY PRN for ANXIETY / AGITATION, #60 TAB 1 Refill 04/06/19 Atorvastatin Calcium (ATORVASTATIN CALCIUM) 40 Mg Tablet, 40 MG PO HS 11/29/13 Discontinued Reported Medications Apixaban (ELIQUIS) 5 Mg Tablet, 2.5 MG PO BID for afib, TAB 11/04/20 Discontinued Scripts Doxycycline Hyclate (DOXYCYCLINE HYCLATE) 100 Mg Tablet, 100 MG PO BID for Cellulitis for 14 Days, #28 TAB Prov:JAKE PATTON MD 01/11/21 Amoxicillin/Potassium Clav (AMOX TR-K CLV 500-125 MG TAB) 1 Each Tablet, 1 TAB PO DAILY for Cellulitis for 14 Days, #14 TAB Prov:JAKE PATTON MD 01/11/21 SURY PATTERSON MD Jan 20, 2021 11:22
--- NOTE | 2021-01-20 12:24 | PDOC ---
Date of Service: DATE: 01/20/21 TIME: 12:21 Subjective: Subjective: No GI complaints. Objective: Objective: Possible DC to [facility] today. D/w nurse and reviewed nephrology note - He was prescribed Entecavir 0.5 mg py Hepatology at Vital Signs: Vital Signs Date Time Temp Pulse Resp B/P (MAP) Pulse Ox O2 Delivery O2 Flow Rate FiO2 01/20/21 11:00 98.2 67 16 120/59 (79) 98 Room Air 98.2 Labs: Laboratory Tests Test 01/19/21 13:40 01/19/21 16:56 01/19/21 20:17 01/20/21 07:55 Glucose (Fingerstick) 91 mg/dL 135 mg/dL 165 mg/dL White Blood Count 8.9 x10^3/uL Red Blood Count 2.84 x10^6/uL Hemoglobin 8.0 g/dL Hematocrit 24.5 % Mean Corpuscular Volume 86 fL Mean Corpuscular Hemoglobin 28 pg Mean Corpuscular Hemoglobin Concent 33 g/dL Red Cell Distribution Width 18.3 % Platelet Count 183 x10^3/uL Sodium Level 142 mmol/L Potassium Level 3.7 mmol/L Chloride Level 106 mmol/L Carbon Dioxide Level 31 mmol/L Anion Gap 5 Blood Urea Nitrogen 21 mg/dL Creatinine 2.9 mg/dL Estimated GFR (Cockcroft-Gault) 21.4 Glucose Level 77 mg/dL Calcium Level 7.8 mg/dL Test 01/20/21 08:12 01/20/21 11:53 Glucose (Fingerstick) 77 mg/dL 95 mg/dL BLOOD CULTURE Final NO GROWTH AFTER 5 DAYS Imaging: Foot X-Ray pending PE: GEN: NAD LUNGS: CTAB HEART: RRR ABD: S/ND/NT NEURO/PSYCH: A & O 3 A/P: ESRD on HD, CAD, PVD, A Fib, CHF Chronic anemia - stable H/o , Hep B -- Dc per primary on PPI, iron, Hep B treatment per as above. Justicifation of Admission Dx: Justifications for Admission: Justification of Admission Dx: Yes FABBY ROBERTSON Jan 20, 2021 12:24
--- NOTE | 2021-01-20 12:47 | NUR ---
SS following up with discharge planning. SS reviewed pt chart and discussed with pt RN. Pt is currently on room air. Pt has outpatient dialysis at [facility], Sunday, Sunday, and Sunday at 1000. SS received phone contact from pt's sister stating that she spoke with Carmelita from facility and is willing to provide [facility] with one more opportunity to provide services to pt. Discharge orders received for return to [facility], ; fax [phone]. Pt will discharge today and return to [facility] at 1400 via [facility] transport, [id number]. Pt, pt's RN, and pt's sister notified.
--- NOTE | 2021-01-20 13:04 | RAD ---
XR FOOT_LEFT 3 VIEWS History: Reason: lesion heel / Spl. Instructions: / History: Technique: 3 views left foot Comparison: March 22, 2018 Findings: Soft tissue defect posterior to the calcaneus. No radiographic evidence of osteomyelitis within the u nderlying calcaneus on essentially single view. Mild midfoot DJD. Prominence of the anterior talus, u nchanged. Vascular calcifications. No dislocation. No acute fracture. Dystrophic ossification within the medial ankle soft tissues, unchanged. Impression: 1. Soft tissue wound posterior to the calcaneus. No definite radiographic evidence of osteomyelitis. If persistent clinical concern, MRI can better evaluate. Electronically signed by: Axel Rios DO (01/20/2021 1:02 PM) [id number]
--- NOTE | 2021-01-20 14:34 | NUR ---
Wound Care: Patient is well known to us from the wound clinic. Patient seen again today by wound care with our AUTO BODY CUSTOMIZER Jewell to reassess the left heel DFU and bilateral lower leg VLUs, and right heel DFU. Wounds cleansed and assessed. Orders per AGGIE Corcoran to hold the wound vac from the left heel DFU at this time and use Hydrofera Blue instead, xeroform gauze, ABD pads, and kerlix to bilateral lower legs and then apply medi-carpenter cradle and dolly size F. Dressings applied. Patient is discharging to [facility] today and Jewell will follow patient there over seeing his wound care. Lara Carrillo sent with patient for Sunday dressing change. The dressings to the coccyx and hip were clean and dry and intact. Patient to take his home vac with him and instructed to charge it in case the vac should go back on upon reassessment of the left heel wound. Bed lowered and call light in reach and family at bedside.
--- NOTE | 2021-01-20 14:53 | NUR ---
Discharge Note: SAMEER HOLDEN [address] Discharge instructions and discharge home medications reviewed with Other facility and a copy given. All questions have been answered and understanding verbalized. The following instructions and handouts were given: DISCHARGE PACKET TO TRANSPORT, REPORT GIVEN TO JORDY @ [facility] Discontinued lines and drains: Peripheral IV intact. DISCHARGED WITH TUNNELED DIALYSIS CATHETER INTACT Patient discharged to Intermediate Facility with Family Member via Wheelchair
--- NOTE | 2021-01-20 15:00 | PDOC2 ---
Chief Complaint: Chief Complaint: Left heel diabetic foot ulcer with open wounds to the bilateral lower extremity secondary to lymphedema and associated blistering Vital Signs: Vital Signs: Vital Signs Date Time Temp Pulse Resp B/P (MAP) Pulse Ox O2 Delivery O2 Flow Rate FiO2 01/19/21 07:00 97.8 72 18 135/68 (90) 97 Room Air 97.8 Vital Signs Date Time Temp Pulse Resp B/P (MAP) Pulse Ox O2 Delivery O2 Flow Rate FiO2 01/20/21 11:00 98.2 67 16 120/59 (79) 98 Room Air 98.2 Allergies: Allergies: Allergies Coded Allergies Type Severity Reaction Last Updated Verified Sulfa (Sulfonamide Antibiotics) Adverse Reaction Intermediate Nausea and Vomiting 12/21/20 Yes Medications: Home Meds Active Scripts Insulin Lispro (Admelog) 100 Unit/1 Ml Vial, 0 UNITS SQ TIDWMEALS for PER SS INSULIN for 30 Days, #2 EACH Prov:SURY PATTERSON MD 01/20/21 Acetaminophen (ACETAMINOPHEN) 325 Mg Tablet, 650 MG PO PRN Q6HRS PRN for Headaches, Temp > 101.5F for 30 Days, #30 TAB Prov:SURY PATTERSON MD 01/20/21 Omeprazole Magnesium (OMEPRAZOLE MAGNESIUM) 20 Mg Capsule., 1 CAP PO DAILY for GERD for 30 Days, #30 CAP 0 Refills Prov:JAKE PATTON MD 01/11/21 Lactobacillus Rhamnosus Gg (CULTURELLE) 1 Each Cap.farhanink, 1 CAP PO BID for Cellulitis for 14 Days, #28 CAP Prov:JAKE PATTON MD 01/11/21 Aspirin (ASPIRIN EC) 81 Mg Tablet., 81 MG PO DAILYWBKFT for CAD for 30 Days, #30 TAB.SR 3 Refills Prov:JAKE PATTON MD 01/11/21 Insulin Glargine,Hum.rec.anlog (LANTUS) 100 Unit/1 Ml Vial, 15 UNIT SQ QHS for DIABETES for 30 Days, #2 EACH Prov:SURY PATTERSON MD 11/10/20 Acetaminophen (ACETAMINOPHEN SUPP) 650 Mg Supp.rect, 650 MG MO PRN Q4HRS PRN for TEMP OVER 100.4F OR MILD PAIN for 30 Days, #20 SUPP.RECT Prov:SURY PATTERSON MD 11/10/20 Hydralazine Hcl (HYDRALAZINE HCL) 25 Mg Tablet, 25 MG PO TID for BLOOD PRESSURE for 30 Days, #90 TAB Prov:SURY PATTERSON MD 11/10/20 Reported Medications Entecavir (BARACLUDE) 0.5 Mg Tablet, 0.5 MG PO DAILY06 for hep B, TAB 01/19/21 Ascorbic Acid (Vitamin C) 500 Mg Capsule, 500 MG PO BID for supplement, CAP 12/20/20 Sennosides (SENOKOT) 8.6 Mg Tablet, 1 TAB PO BID PRN for CONSTIPATION for 20 Days, #40 TAB 0 Refills 12/20/20 Nystatin (NYSTATIN) 15 Gm Powder, 1 CLARKE TP BID for yeast for 7 Days, #1 BOTTLE 0 Refills apply to affected area(s) 12/20/20 Sertraline Hcl (ZOLOFT) 50 Mg Tablet, 50 MG PO DAILY for ANTI-DEPRESSANT, TAB 0 Refills 12/20/20 Metoprolol Succinate (METOPROLOL SUCCINATE ( XL )) 25 Mg Tab.er.24h, 25 MG PO DAILY for htn, #30 TAB 0 Refills 12/20/20 Ferrous Sulfate (SLOW RELEASE IRON) 160 Mg Tablet.er, 160 MG PO DAILY for supplement/anemia, TAB.SR 11/04/20 Buspirone Hcl (BUSPIRONE HCL) 10 Mg Tablet, 1 TAB PO PRN DAILY PRN for ANXIETY / AGITATION, #60 TAB 1 Refill 04/06/19 Atorvastatin Calcium (ATORVASTATIN CALCIUM) 40 Mg Tablet, 40 MG PO HS 11/29/13 Discontinued Reported Medications Apixaban (ELIQUIS) 5 Mg Tablet, 2.5 MG PO BID for afib, TAB 11/04/20 Discontinued Scripts Doxycycline Hyclate (DOXYCYCLINE HYCLATE) 100 Mg Tablet, 100 MG PO BID for Cellulitis for 14 Days, #28 TAB Prov:JAKE PATTON MD 01/11/21 Amoxicillin/Potassium Clav (AMOX TR-K CLV 500-125 MG TAB) 1 Each Tablet, 1 TAB PO DAILY for Cellulitis for 14 Days, #14 TAB Prov:JAKE PATTON MD 01/11/21 PCP: PCP: Dr. Patterson Date of Onset Patient well-known to this nurse practitioner secondary to history of diabetic foot ulcers and lymphedema. Patient admitted to [place] due to acute on chronic kidney failure and associated lymphedema. Patient admitted with heel ulcer to his left foot. Previous DFU's have healed out with both conservative and advanced care to include hyperbaric therapy. PMH Cardiovascular: AFIB, CAD, CHF, HTN, Hyperlipidemia CENTRAL NERVOUS SYSTEM: Periperal neuropathy GI: GERD, GI bleed Heme/Onc: Anemia NOS Psych: Anxiety, Depression Rheumatologic: Gout Renal/: Chronic renal insuff Endocrine: Diabetes Surgical History Pacemaker PSH Prior to hospitalization, patient lived at home and was independent with ADLs. Patient does have a sister who checks on him regularly and is involved with medical decision making. Patient denies use of tobacco, illicit drugs or use of alcohol. Review of Systems: Patient denies painful symptoms at this time. Patient states that he has been eating and drinking well without nausea, vomiting or diarrhea. Patient states that since dialysis he no longer complains of shortness of breath or cough. Patient states that he has been sleeping well without mood changes or headaches. Physical Exam Patient awake and alert 75-year-old male in no apparent distress. Vital signs are stable. Patient is afebrile. Respirations are even and unlabored. Patient is on room air not requiring supplemental oxygen at this time. Abdomen is soft, nondistended and nontender to palpation. Skin is warm, dry and pink. Bilateral lower extremities present with 1+ pitting edema. Multiple ruptured bullae present on bilateral lower extremities. Wound beds pink and smooth. Moderate serous drainage present bilaterally. The left heel presents with a 4.2 x 3.7 x 0.2 cm open ulceration. Wound bed is 50% granulation and 50% slough. Edges are attached and nonrolling. Surrounding tissue without erythema or edema present. Moderate serosanguineous drainage noted on previous dressing. No odor following cleansing. A/P 1) left heel diabetic foot ulcer -Cleanse and pat dry. Apply skin prep to surrounding tissue. Cover wound bed with Hydrofera Blue to encourage autolytic debridement and cover with foam adhesive. Change every Sunday and Sunday or as needed if dressing loose or saturated. -Heel medics boot to be worn at all times -Ensure heel is offloaded at all times -Dietary consulting to ensure patient with adequate protein intake for optimal wound healing. 2) acute on chronic kidney failure with associated bilateral lower extremity lymphedema and open ulcerations -Cleanse and pat dry. Apply Xeroform to open areas and cover with ABD and Kerlix. Change daily or as needed if dressings loose or saturated. -Tubigrip's, size F, change every morning -Patient now receiving dialysis Sunday, Sunday and Fridays to help with fluid overload. Followed by renal team. JOSE MANUEL [employer]AN [employer]CHO[employer] GUARD Jan 20, 2021 15:00
== END 2021-01-20 15:05 | DRG 291 ==
LOC: ER 16:17 → 2 SOUTH 23:21 → OBSVTOIN 01-16 07:37
PROVIDERS: ADMIT Family Medicine; ATTEND Family Medicine
PROC: 5A1D70Z Performance of Urinary Filtration, Intermittent, Less than 6 Hours Per Day (ICD-10-PCS; 2021-01-15)
PROC: 30233N1 Transfusion of Nonautologous Red Blood Cells into Peripheral Vein, Percutaneous Approach (ICD-10-PCS; principal; 2021-01-17)
PROC: 5A1D70Z Performance of Urinary Filtration, Intermittent, Less than 6 Hours Per Day (ICD-10-PCS; 2021-01-17)
PROC: 5A1D70Z Performance of Urinary Filtration, Intermittent, Less than 6 Hours Per Day (ICD-10-PCS; 2021-01-19)
DX: I13.2 Hypertensive heart and chronic kidney disease with heart failure and with stage 5 chronic kidney disease, or end stage renal disease (principal); I50.33 Acute on chronic diastolic (congestive) heart failure; N18.6 End stage renal disease; E43 Unspecified severe protein-calorie malnutrition; E66.2 Morbid (severe) obesity with alveolar hypoventilation; B18.1 Chronic viral hepatitis B without delta-agent; L97.429 Non-pressure chronic ulcer of left heel and midfoot with unspecified severity; N17.9 Acute kidney failure, unspecified; B19.10 Unspecified viral hepatitis B without hepatic coma; Z68.42 Body mass index [BMI] 45.0-49.9, adult; E21.3 Hyperparathyroidism, unspecified; D63.1 Anemia in chronic kidney disease; E11.22 Type 2 diabetes mellitus with diabetic chronic kidney disease; E11.621 Type 2 diabetes mellitus with foot ulcer; E78.5 Hyperlipidemia, unspecified; F32.9 Major depressive disorder, single episode, unspecified; F41.9 Anxiety disorder, unspecified; E11.42 Type 2 diabetes mellitus with diabetic polyneuropathy; I48.91 Unspecified atrial fibrillation; I25.10 Atherosclerotic heart disease of native coronary artery without angina pectoris; I49.5 Sick sinus syndrome; K21.9 Gastro-esophageal reflux disease without esophagitis; M10.9 Gout, unspecified; Z80.0 Family history of malignant neoplasm of digestive organs; Z79.82 Long term (current) use of aspirin; Z82.49 Family history of ischemic heart disease and other diseases of the circulatory system; Z99.2 Dependence on renal dialysis; Z87.11 Personal history of peptic ulcer disease; Z95.0 Presence of cardiac pacemaker; Z95.5 Presence of coronary angioplasty implant and graft; Z88.2 Allergy status to sulfonamides
CPT/HCPCS: 36415; 36430; 71045; 73630; 80048; 80053; 82274; 82962; 83605; 83615; 83735; 83880; 84484; 85025; 85027; 86850; 86900; 86901; 86920; 87040; 93005; 96372; G0378; G0379; J0882; J1815; P9016; 99285-25

== ENCOUNTER → 2021-03-16 | Outpatient (CLI) | payer MEDICARE ==
[~2021-03-16] MED LIST changes: +ACET325T21 PO; +ENTE0.5T PO
--- NOTE | 2021-03-16 14:30 | NUR ---
Pt to MRI from [facility] for heel MRI. [employer] pacemaker in place, rep here to program pacemaker for MRI. Pt tolerated MRI without difficulty, VSS. Pacemaker returned to prev settings per rep. Transported back by [employer] transportation software team leader. JOSE PAYTON
--- NOTE | 2021-03-16 17:45 | RAD ---
EXAM: MRI left foot, attention to hindfoot DATE: 03/16/2021 1:58 PM CLINICAL HISTORY: Reason: LEFT HEEL WOUND. EVAL OESTEOMYELITIS / Spl. Instructions: / History: COMPARISON: 01/20/2021. TECHNIQUE: Multiplanar, multisequence MR imaging of the left foot was performed without IV contrast FINDINGS: Examination is limited by motion artifact. T1 marrow replacement within the posterior calcaneus consistent with osteomyelitis. Moderate associat ed edema is seen. Overlying soft tissue irregularity/ulceration is seen. Remainder of the T1 marrow signal is grossly preserved. No fracture or osteonecrosis. Multifocal dege nerative changes including the midfoot and compartment joint. Within the constraints of motion artifact the visualized flexor and extensor tendons are grossly inta ct. Thickening of the distal Achilles tendon measures up to 12 mm without fluid signal suggesting ten dinosis. Physiologic retrocalcaneal bursal fluid. Thickening of the central band of the plantar fasci a may be seen with plantar fasciitis. Moderate fatty atrophy of intrinsic muscles of the foot with ed fer. Diffuse subcutaneous edema about the left ankle. IMPRESSION: 1. T1 marrow replacement of the posterior calcaneus, subjacent to the soft tissue ulceration, consis tent with osteomyelitis. 2. Thickening of the Achilles tendon consistent with tendinosis. 3. Moderate fatty atrophy and edema of the intrinsic muscles of the foot may be seen with denervatio n myositis. 4. Diffuse soft tissue swelling about the left ankle, nonspecific but cellulitis is not excluded. 5. Multifocal degenerative changes. Electronically signed by: Cristino Bean MD (03/16/2021 5:43 PM) MARILEE
== END ==
LOC: MRI 08:24
PROVIDERS: ATTEND Internal Medicine
DX: M86.8X8 Other osteomyelitis, other site (principal); M79.89 Other specified soft tissue disorders; R60.0 Localized edema
CPT/HCPCS: 73718

== ENCOUNTER → 2021-04-24 | Outpatient (CLI) | payer MEDICARE ==
[2021-04-16 11:00] VITALS: BP 121/51
[2021-04-24 12:13] LABS: BASO # 0.1 x10^3/uL (0.0-0.2); BASO % 2 % (0-3); EOS # 0.6 x10^3/uL (0.0-0.7); EOS % 8 % (0-3); HEMATOCRIT 31.8 % (39.0-53.0); LYMPH # 1.2 x10^3/uL (1.0-4.8); LYMPH % 17 % (24-48); MEAN CORPUSCULAR HEMOGLOBIN 31 pg (25-35); MEAN CORPUSCULAR HGB CONC 31 g/dL (31-37); MEAN CORPUSCULAR VOLUME 98 fL (79-100); MONO # 0.9 x10^3/uL (0.0-1.1); MONO % 12 % (0-9); NEUT # 4.7 x10^3/uL (1.8-7.7); NEUT % 62 % (31-73); PLATELET COUNT 222 x10^3/uL (140-400); RED BLOOD COUNT 3.26 x10^6/uL (4.30-5.70); WHITE BLOOD COUNT 7.5 x10^3/uL (4.0-11.0)
[2021-04-24 12:43] LABS: ALBUMIN 2.5 g/dL (3.4-5.0); ALBUMIN/GLOBULIN RATIO 0.6 (1.0-1.7); CALCIUM 8.5 mg/dL (8.5-10.1); CREATININE 3.8 mg/dL (0.7-1.3); GFR 15.7; POTASSIUM 4.5 mmol/L (3.5-5.1); TOTAL BILIRUBIN 0.7 mg/dL (0.2-1.0)
== END ==
LOC: SPEC 11:22
PROVIDERS: ATTEND Internal Medicine
DX: L97.429 Non-pressure chronic ulcer of left heel and midfoot with unspecified severity (principal)
CPT/HCPCS: 36415; 80053; 85025; 85651; 86140

== ENCOUNTER → 2021-04-25 | Outpatient (CLI) | payer MEDICARE ==
[2021-04-16 11:00] VITALS: BP 121/51
[2021-04-27 02:14] LABS: HEMOGLOBIN A1C 5.8 % (4.8-5.6)
== END ==
LOC: SPEC 09:08 → EDSTATUS 09:57
PROVIDERS: ATTEND Internal Medicine
DX: L97.429 Non-pressure chronic ulcer of left heel and midfoot with unspecified severity (principal); E11.9 Type 2 diabetes mellitus without complications
CPT/HCPCS: 36415; 83036

== ENCOUNTER 2021-05-05 10:50 | Inpatient (IN) | payer MEDICARE ==
[~2021-05-05] VITALS: Ht 177.8 cm; Wt 123.1 kg
[2021-05-05 12:13] VITALS: BP 138/88
--- NOTE | 2021-05-05 14:05 | NUR ---
Wound/Ostomy Care Wound Type/Assessment: Pt seen in wound care clinic this morning for follow up on bilateral heel DFUs and right 4th toe DFU. Pt known to wound care team from previous admissions. Left heel has exposed bone and recommendation for admission to start IV antibiotics and consult to ID for eval on osteomyelitis of left heel. Pt candidate for HBO chamber but will need antibiotic treatment prior to starting HBO treatments. Jewell Cid NP spoke with Dr. Jb Lopez re: POC. Pt inform of POC and agreeable to admission. Treatment Recommendations/Plan: Cleanse all wounds with saline or wound wash and pat dry. Bilateral heels: skin prep periwound, apply hydrofera blue ready to wound bed and cover with foam, change every 2-3 days and as needed. Apply medigrips for compression and heel medix boots at all times for offloading. Right 4th plantar toe: cover with a small rope of aquacel ag and cover with gauze and tape or bandaid. Change every 2-3 days. Education provided: pt educated on offloading and keeping non-weight bearing to both heel, using heel medix boots at all times to keep pressure off heels and turning Q2H for PU prevention. Offloading surface/device: heel medix boots (pt's sister will bring to hospital, if unable to obtain boots from home then will need new order from [facility] for standard heel medix boots for bilateral feet), purple wedge Recommended Referrals/Tests: ID, nephrology (pt is a dialysis pt) Discharge Recommendations for dressings: same as noted on treatment plan, WC team will f/u on 05/10/21.
[2021-05-05 14:54] VITALS: BP 132/84
[2021-05-05] MEDS ORDERED: busPIRone 10 MG TABLET. PO PRN (16:45)
[2021-05-05] MEDS ORDERED: SENNOSIDES 8.6 MG TABLET PO PRN (16:45)
--- NOTE | 2021-05-05 16:48 | PDOC1 ---
History and Physical Date of Admission Date of Admission DATE: 05/05/21 TIME: 16:32 Identification/Chief Complaint Chief Complaint Left heel ulcer Source Source: Chart review, Patient History of Present Illness History of Present Illness Patient 75-year-old male with past medical history ESRD on HD, DM2, anemia, HTN, HLD, who presents as a direct admit from wound care clinic due to concerns for left heel osteomyelitis. At the time of my evaluation patient has no specific complaints, denies any pain. States he has been receiving wound care at [facility], but today is his first visit to outpatient wound care. He denies any fever, nausea, vomiting, or drainage noted from bilateral heels. He receives hemodialysis Sunday/Sunday/Sunday. Will admit patient for further medical management Past Medical History Cardiovascular: AFIB, CAD, CHF, HTN, Hyperlipidemia CENTRAL NERVOUS SYSTEM: Periperal neuropathy GI: GERD, GI bleed Heme/Onc: Anemia NOS Psych: Anxiety, Depression Rheumatologic: Gout Renal/: Chronic renal failure Endocrine: Diabetes, Hyperparathyroidism Past Surgical History Past Surgical History: Pacemaker Family History Family History: Heart Disease, Hypertension Social History Smoke: No ALCOHOL: none Drugs: None Current Medications Current Medications Active Scripts Active Admelog (Insulin Lispro) 100 Unit/1 Ml Vial 0 Units SQ TIDWMEALS 30 Days Acetaminophen 325 Mg Tablet 650 Mg PO PRN Q6HRS PRN 30 Days Omeprazole Magnesium 20 Mg Capsule.dr 1 Cap PO DAILY 30 Days Aspirin Ec (Aspirin) 81 Mg Tablet.dr 81 Mg PO DAILYWBKFT 30 Days Lantus (Insulin Glargine,Hum.rec.anlog) 100 Unit/1 Ml Vial 15 Unit SQ QHS 30 Days Acetaminophen Supp (Acetaminophen) 650 Mg Supp.rect 650 Mg DE PRN Q4HRS PRN 30 Days Hydralazine Hcl 25 Mg Tablet 25 Mg PO TID 30 Days Reported Baraclude (Entecavir) 0.5 Mg Tablet 0.5 Mg PO DAILY06 Vitamin C (Ascorbic Acid) 500 Mg Capsule 500 Mg PO BID Senokot (Sennosides) 8.6 Mg Tablet 1 Tab PO BID PRN 20 Days Nystatin 15 Gm Powder 1 Daniela TP BID 7 Days apply to affected area(s) Zoloft (Sertraline Hcl) 50 Mg Tablet 50 Mg PO DAILY Metoprolol Succinate ( Xl ) (Metoprolol Succinate) 25 Mg Tab.er.24h 25 Mg PO DAILY Slow Release Iron (Ferrous Sulfate) 160 Mg Tablet.er 160 Mg PO DAILY Buspirone Hcl 10 Mg Tablet 1 Tab PO PRN DAILY PRN Atorvastatin Calcium 40 Mg Tablet 40 Mg PO HS Allergies Allergies: Coded Allergies: Sulfa (Sulfonamide Antibiotics) (Verified Adverse Reaction, Intermediate, Nausea and Vomiting, 12/21/20) ROS Review of System GENERAL: No history of weight change, weakness or fevers. SKIN: No bruising, hair changes or rashes. EYES: No blurred, double or loss of vision. NOSE AND THROAT: No history of nosebleeds, hoarseness or sore throat. HEART: Denies chest pain, denies palpitations. LUNGS: Denies cough, hemoptysis, wheezing or shortness of breath. GASTROINTESTINAL: Denies nausea, vomiting, abdominal pain. GENITOURINARY: Denies dysuria, frequency, urgency, hematuria. NEUROLOGIC: Denies history of numbness, tingling, tremor or weakness. PSYCHIATRIC: Denies anxiety, denies depression. ENDOCRINE: No history of heat or cold intolerance, polyuria or polydipsia. EXTREMITIES: Denies muscle weakness, joint pain, pain on walking or stiffness. Physical Exam Physical Exam General: Alert, Oriented X3, Cooperative, No acute distress HEENT: PERRLA, EOMI Lungs: Clear to auscultation, Normal air movement Heart: RRR, no murmurs Cardiovascular: S1, S2 Abdomen: Normal bowel sounds, Soft, No tenderness Extremities: No clubbing, No cyanosis Skin: ~6 cm ulcer to left heel with minimal surrounding erythema; left heel does not probe deep but I do feel some muscle or tissue close to bone. Chronic trophic changes to bilateral lower extremities. No rashes, Neuro: Normal speech, Normal tone, Sensation intact Psych/Mental Status: Mental status NL, Mood NL Vitals Vitals Vital Signs Date Time Temp Pulse Resp B/P (MAP) Pulse Ox O2 Delivery O2 Flow Rate FiO2 05/05/21 14:54 98.0 71 18 132/84 (100) 96 Room Air 98.0 Images Images PATIENT: SAMEER HOLDEN GACCOUNT: [id number] : 1945 LOCATION: MRI AGE: 75 SEX: M EXAM STATUS: REG CLI ORD. PHYSICIAN: CINDI PERKINS MD REASON: LEFT HEEL WOUND. EVAL OESTEOMYELITIS PROCEDURE: LOWER EXT NON JOINT WO LT EXAM: MRI left foot, attention to hindfoot DATE: 03/16/2021 1:58 PM CLINICAL HISTORY: Reason: LEFT HEEL WOUND. EVAL OESTEOMYELITIS / Spl. Instructions: / History: COMPARISON: 01/20/2021. TECHNIQUE: Multiplanar, multisequence MR imaging of the left foot was performed without IV contrast FINDINGS: Examination is limited by motion artifact. T1 marrow replacement within the posterior calcaneus consistent with osteomye litis. Moderate associated edema is seen. Overlying soft tissue irregularity/ulceration is seen. Remainder of the T1 marrow signal is grossly preserved. No fracture or osteonecrosis. Multifocal degenerative changes including the midfoot and compartment joint. Within the constraints of motion artifact the visualized flexor and extensor tendons are grossly intact. Thickening of the distal Achilles tendon measures up to 12 mm without fluid signal suggesting tendinosis. Physiologic retrocalcaneal bursal fluid. Thickening of the central band of the plantar fascia may be seen with plantar fasciitis. Moderate fatty atrophy of intrinsic muscles of the foot with edema. Diffuse subcutaneous edema about the left ankle. IMPRESSION: 1. T1 marrow replacement of the posterior calcaneus, subjacent to the soft tissue ulceration, consistent with osteomyelitis. 2. Thickening of the Achilles tendon consistent with tendinosis. 3. Moderate fatty atrophy and edema of the intrinsic muscles of the foot may be seen with denervation myositis. 4. Diffuse soft tissue swelling about the left ankle, nonspecific but cellulitis is not excluded. 5. Multifocal degenerative changes. VTE Prophylaxis Ordered VTE Prophylaxis Devices: No VTE Pharmacological Prophylaxi: Yes Assessment/Plan Assessment/Plan Ulcers to bilateral heels, left > right, concerning for possible osteomyelitis to left heel Diastolic congestive heart failure ESRD on HD DM2 Plan: We will admit patient with ID consult Patient is not septic appearing at this time; will obtain blood cultures and defer antibiotic recommendations to ID MRI on 03/16/2021 that showed T1 marrow replacement of the posterior calcaneus, subjacent to the soft tissue ulceration, consistent with osteomyelitis. Consultation placed to nephrology Basal/prandial insulin Resume home medications FEN - Renal diet PPX - Heparin DNR Dispo - inpatient for above Patient names his sister (Phuong Mathis) as surrogate decision-maker Justifications for Admission Other Justification CHF exacerbation HOANG MAGAÑA MD May 05, 2021 16:48
[2021-05-05] MEDS ORDERED: CALCIUM CARBONATE 500 MG TAB.CHEW PO PRN (17:00)
[2021-05-05] MEDS ORDERED: ONDANSETRON PF 4 MG/2 ML VIAL. IVP PRN (17:00)
[2021-05-05] MEDS ORDERED: ACETAMINOPHEN 325 MG TABLET. PO PRN (17:00)
[2021-05-05] MEDS ORDERED: MAGNESIUM HYDROXIDE 2,400 MG/30 ML ORAL.SUSP. PO PRN (17:00)
[2021-05-05] MEDS ORDERED: HYDROcodone/APAP 5/325MG 1 TAB TABLET PO PRN (17:00)
[2021-05-05] MEDS ORDERED: INSULIN LISPRO 100 UNIT/ML 3ML VIAL for OP,RR ONLY. SQ SCH (17:00)
[2021-05-05] MEDS: INSULIN LISPRO 300 UNITS/3 ML VIAL. SQ SCH (17:00)
[2021-05-05] MEDS ORDERED: DEXTROSE 50% 25 GM / 50ML DISP.SYRIN. IV PRN (17:00)
[2021-05-05] MEDS ORDERED: MAG HYDROX/ALUMINUM HYD/SIMETH 30 ML ORAL.SUSP PO PRN (17:00)
[2021-05-05 19:00] VITALS: BP 132/45
[2021-05-05 20:50] LABS: BASO % 1 % (0-3); EOS # 0.3 x10^3/uL (0.0-0.7); EOS % 5 % (0-3); HEMATOCRIT 29.8 % (39.0-53.0); HEMOGLOBIN 9.7 g/dL (13.0-17.5); LYMPH # 1.2 x10^3/uL (1.0-4.8); LYMPH % 19 % (24-48); MEAN CORPUSCULAR HEMOGLOBIN 31 pg (25-35); MEAN CORPUSCULAR HGB CONC 33 g/dL (31-37); MEAN CORPUSCULAR VOLUME 95 fL (79-100); MONO # 0.8 x10^3/uL (0.0-1.1); MONO % 12 % (0-9); NEUT % 64 % (31-73); PLATELET COUNT 168 x10^3/uL (140-400); RED BLOOD COUNT 3.13 x10^6/uL (4.30-5.70); RED CELL DISTRIBUTION WIDTH 19.5 % (11.5-14.5); WHITE BLOOD COUNT 6.4 x10^3/uL (4.0-11.0)
[2021-05-05] MEDS: INSULIN GLARGINE SYRINGE. SQ SCH (21:00)
[2021-05-05 21:07] LABS: ALBUMIN 2.2 g/dL (3.4-5.0); ALBUMIN/GLOBULIN RATIO 0.5 (1.0-1.7); C-REACTIVE PROTEIN 45.2 mg/L (0-3.3); CALCIUM 8.7 mg/dL (8.5-10.1); CREATININE 3.4 mg/dL (0.7-1.3); GFR 17.8; POTASSIUM 4.6 mmol/L (3.5-5.1); TOTAL BILIRUBIN 0.7 mg/dL (0.2-1.0); TOTAL PROTEIN 6.9 g/dL (6.4-8.2)
[2021-05-05] MEDS: ATORVASTATIN CALCIUM 40 MG TABLET. PO SCH (21:10)
[2021-05-05] MEDS: NYSTATIN TOPICAL POWDER 15GM BOTTLE. TP SCH (21:11)
[2021-05-05] MEDS: hydrALAZINE 25 MG TABLET PO SCH (21:11)
[2021-05-05] MEDS: HEPARIN for SUB-Q USE 5,000 UNIT/ML VIAL. SQ SCH (21:16)
[2021-05-05 23:00] VITALS: BP 108/43
[2021-05-06 03:00] VITALS: BP 126/48
[2021-05-06] MEDS: ENTECAVIR 0.5 MG PO SCH (06:00)
[2021-05-06] MEDS: HEPARIN for SUB-Q USE 5,000 UNIT/ML VIAL. SQ SCH ×3 (06:11→21:01)
[2021-05-06 07:00] VITALS: BP 117/40
[2021-05-06] MEDS: INSULIN LISPRO 300 UNITS/3 ML VIAL. SQ SCH ×3 (08:00→17:00)
[2021-05-06 08:48] LABS: BASO # 0.1 x10^3/uL (0.0-0.2); BASO % 2 % (0-3); EOS # 0.3 x10^3/uL (0.0-0.7); EOS % 6 % (0-3); HEMATOCRIT 29.7 % (39.0-53.0); HEMOGLOBIN 9.6 g/dL (13.0-17.5); LYMPH # 1.3 x10^3/uL (1.0-4.8); LYMPH % 23 % (24-48); MEAN CORPUSCULAR HEMOGLOBIN 31 pg (25-35); MEAN CORPUSCULAR HGB CONC 32 g/dL (31-37); MEAN CORPUSCULAR VOLUME 96 fL (79-100); MONO # 0.7 x10^3/uL (0.0-1.1); MONO % 13 % (0-9); NEUT # 3.4 x10^3/uL (1.8-7.7); NEUT % 57 % (31-73); PLATELET COUNT 170 x10^3/uL (140-400); RED BLOOD COUNT 3.09 x10^6/uL (4.30-5.70); RED CELL DISTRIBUTION WIDTH 19.5 % (11.5-14.5); WHITE BLOOD COUNT 5.9 x10^3/uL (4.0-11.0)
[2021-05-06 09:13] LABS: CALCIUM 8.8 mg/dL (8.5-10.1); CREATININE 3.7 mg/dL (0.7-1.3); GFR 16.2; POTASSIUM 4.4 mmol/L (3.5-5.1)
[2021-05-06] MEDS: hydrALAZINE 25 MG TABLET PO SCH ×3 (10:09→21:00)
[2021-05-06] MEDS: ASPIRIN ENTERIC COATED 81 MG TABLET.DR. PO SCH (10:09)
[2021-05-06] MEDS: METOPROLOL SUCC 24HR ER 25 MG TAB.ER.24H. PO SCH (10:09)
[2021-05-06] MEDS: IRON POLYSACCHARIDE COMPLEX 150 MG CAPSULE PO SCH (10:09)
[2021-05-06] MEDS: SERTRALINE 50 MG TABLET. PO SCH (10:09)
[2021-05-06] MEDS: NYSTATIN TOPICAL POWDER 15GM BOTTLE. TP SCH ×2 (10:11→21:00)
[2021-05-06 11:00] VITALS: BP 118/23
--- NOTE | 2021-05-06 11:51 | NUR ---
SW following. Discussed with RN. 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 Multiple consults - pt on IV abx. CONRADO will continue to follow.
--- NOTE | 2021-05-06 12:43 | CONS ---
DATE OF CONSULTATION: 05/05/2021 REFERRING PHYSICIAN: Dr. Ramos. REASON FOR CONSULTATION: Left calcaneal osteomyelitis, antibiotic management. HISTORY OF PRESENT ILLNESS: A 75-year-old male with history of diabetes, anemia, hypertension, hyperlipidemia, end-stage renal disease who presented to Wound Care due to concerns with left heel osteomyelitis. He was started on IV vancomycin through dialysis, which he completed 10 days of IV vancomycin. The patient is on hemodialysis through right chest wall dialysis catheter on Sunday, Sunday and Sunday. He has this wound for a long time. He has been at [facility] and he initially developed blisters long time back. He had undergone debridement of the eschar on the left heel. He also had a similar wound on the right heel, which is healing well. The patient was not able to give me details about who had been managing his outpatient IV antibiotics. ID consultation has been requested for antibiotic management. The patient denies any fevers, chills, nausea, vomiting, diarrhea, abdominal pain or symptoms. PAST MEDICAL HISTORY: AFib, coronary artery disease, CHF, hypertension, hyperlipidemia, peripheral neuropathy, GERD, GI bleed, anemia, anxiety, depression, gout, end-stage renal disease on hemodialysis, diabetes, hyperparathyroidism. PAST SURGICAL HISTORY: Pacemaker. FAMILY HISTORY: As per HPI. SOCIAL HISTORY: Nonsmoker, no alcohol, no drugs. CURRENT MEDICATIONS: Had been on IV antibiotics, vancomycin per the patient's report for 10 days through his primary care physician as outpatient prior to presentation at Wound Care. ALLERGIES: SULFA. REVIEW OF SYSTEMS: Negative except for above in HPI. PHYSICAL EXAMINATION: GENERAL: Alert, oriented x 3, cooperative male lying in bed comfortably, in no acute distress. VITAL SIGNS: Reviewed. HEENT: Normocephalic, atraumatic. Pupils are equal, reactive. Extraocular movements are intact. No thrush. Oral mucosa is moist. NECK: Supple, no JVD. LUNGS: Clear bilaterally. No wheezing. HEART: S1, S2. No murmurs. CHEST WALL: Right HD catheter site irritation and redness around the HD catheter. ABDOMEN: Soft, nontender, nondistended, obese. Bowel sounds present. EXTREMITIES: Large ulcer at the left heel with mild surrounding erythema. No bone palpated, though there is a thin sliver of tissue just close to the bone, chronic trophic changes to bilateral lower extremities. DERMATOLOGIC: Warm, dry, no generalized rash. NEUROLOGIC: Alert and oriented x 3, grossly nonfocal. PSYCHIATRIC: Calm and cooperative. Right HDC looks slightly irritated, but no purulence, no tenderness. LABORATORY DATA: 1. WBC 5.9, hemoglobin 9.6, hematocrit 29.7, platelets 170. 2. Sodium 139, potassium 4.4, chloride 102, bicarbonate 26, BUN 44, creatinine 3.7, lactate 1.1. LFTs high. C-reactive protein 45.2. IMAGING: MRI of left lower extremity on 03/16/2021: T1 marrow replacement of the posterior calcaneus subjacent to the soft tissue ulceration consistent with osteomyelitis, thickening of the consistent with tendinosis, moderate fatty atrophy and edema of the muscle of the foot may be seen with degeneration myositis, diffuse soft tissue swelling along the left ankle, nonspecific, but cellulitis is not excluded, multifocal degenerative changes. The patient had undergone recent tunneled hemodialysis catheter placement on 04/15/2021. IMPRESSION: 1. Left heel calcaneal osteomyelitis. 2. Chronic nonhealing left heel ulcer. 3. History of chronic right heel ulcer, healing. 4. End-stage renal disease, on hemodialysis, recent tunneled catheter changed. 5. Diabetes mellitus. 6. Peripheral arterial disease. 7. Obesity. 8. Congestive heart failure. 9. SULFA ALLERGY. 10. Hepatitis B surface antigen positive, on entecavir. 11. Chronic anemia. 12. Morbid obesity. RECOMMENDATIONS: 1. Monitor off antibiotics at this time until surgery evaluates pt. 2. We will consult Vascular for evaluation and treatment. 3. Do not place PICC line. 4. Monitor labs and cultures. 5. Continue supportive care. 6. Offload. 7. Wound care as per wound team. Discussed with nursing staff. Thank you, Dr. Ramos for consulting Infectious Disease to participate in this patient's care. If you have any questions, do not hesitate to contact me. LILY/MARIE/MEGAN GONSALVES: Slick TID: [id number] [facility]
--- NOTE | 2021-05-06 13:03 | PDOC2 ---
CONSULT Date of Service Date of Service DATE: 05/06/21 TIME: 12:39 Reason for Consult Reason for Consult: Left heel with concern for osteomyelitis Referring Physician Referring Physician: Dr. Lopez Identification/Chief Complaint Chief Complaint Left heel wound Source Source: Chart review, Patient History of Present Illness Reason for Visit: This is a pleasant 75-year-old male with a past medical history of end-stage renal disease on hemodialysis, diabetes, anemia, hyperlipidemia, and hypertension who presented as a direct admit from the wound care center for with concerns for left heel exposed bone and osteomyelitis. Patient reports a history of left heel wound. He underwent debridement in December of this year. In addition he had angiography that demonstrated two vessel runoff into the foot. The patient was then transferred to rehab. He states he has been diligent in off-loading his heels. He reports that his left heel had almost healed until he started using the bicycle at rehab then one day he noticed a large area of skin had peeled off of his heel. Patient says he has neuropathy and has minimal sensation in his feet. Patient has been receiving wound care at [facility]. Patient denies any fever or chills. Patient denies any nausea or vomiting. He recently had right upper arm access placed for dialysis at [facility]. The patient reports he has some difficulty remember when events occur. In addition the patient reports good success with HBO. He states he is still limited in his mobility and spends most of his time in bed. MRI done March 16, 2021 suggestive of posterior calcaneous osteomyelitis. Past Medical History Cardiovascular: AFIB, CAD, CHF, HTN, Hyperlipidemia CENTRAL NERVOUS SYSTEM: Periperal neuropathy GI: GERD, GI bleed Heme/Onc: Anemia NOS Psych: Anxiety, Depression Rheumatologic: Gout Renal/: Chronic renal failure Endocrine: Diabetes, Hyperparathyroidism Past Surgical History Past Surgical History: Pacemaker, Other (left heel debridement, right upper arm a-v acess, right chest PC) Family History Family History: Heart Disease, Hypertension Social History No ALCOHOL: none Drugs: None Lives: [facility] Current Medications Current Medications Current Medications Aspirin (Ecotrin) 81 mg DAILYWBKFT PO Last administered on 05/06/21at 10:09; Start 05/06/21 at 08:00 Atorvastatin Calcium (Lipitor) 40 mg HS PO Last administered on 05/05/21at 21:10; Start 05/05/21 at 21:00 Buspirone HCl (Buspar) 10 mg PRN DAILY PRN PO ANXIETY / AGITATION; Start 05/05/21 at 16:45 Hydralazine HCl (Apresoline) 25 mg TID PO Last administered on 05/06/21at 10:09; Start 05/05/21 at 21:00 Insulin Glargine (Lantus Syringe) 15 unit QHS SQ ; Start 05/05/21 at 21:00 Insulin Human Lispro (HumaLOG VIAL for OP,RR ONLY) TIDWMEALS SQ ; Start 05/05/21 at 17:00; Status Cancel Metoprolol Succinate (Toprol Xl) 25 mg DAILY PO Last administered on 05/06/21at 10:09; Start 05/06/21 at 09:00 Nystatin (Nystop) 1 daniela BID TP Last administered on 05/06/21at 10:11; Start 05/05/21 at 21:00 Sennosides (Senna) 8.6 mg BID PRN PO CONSTIPATION; Start 05/05/21 at 16:45 Sertraline HCl (Zoloft) 50 mg DAILY PO Last administered on 05/06/21at 10:09; Start 05/06/21 at 09:00 Non-Formulary Medication (Entecavir (Baraclude)) 0.5 mg DAILY06 PO ; Start 05/06/21 at 06:00; Status UNV Polysaccharide Iron Complex (Niferex 150) 150 mg DAILY PO Last administered on 05/06/21at 10:09; Start 05/06/21 at 09:00 Ondansetron HCl (Zofran) 4 mg PRN Q6HRS PRN IVP NAUSEA/VOMITING; Start 05/05/21 at 17:00 Al Hydroxide/Mg Hydroxide (Mylanta Plus Xs) 30 ml PRN Q3HRS PRN PO HEARTBURN / GAS; Start 05/05/21 at 17:00 Calcium Carbonate/ Glycine (Tums) 500 mg PRN Q3HRS PRN PO UPSET STOMACH; Start 05/05/21 at 17:00 Acetaminophen/ Hydrocodone Bitart (Lortab 5/325) 1 tab PRN Q4HRS PRN PO MILD PAIN 1-3; Start 05/05/21 at 17:00 Acetaminophen (Tylenol) 650 mg PRN Q6HRS PRN PO Headaches, Temp > 101.5F; Start 05/05/21 at 17:00 Magnesium Hydroxide (Milk Of Magnesia) 2,400 mg PRN Q12HR PRN PO CONSTIPATION; Start 05/05/21 at 17:00 Heparin Sodium (Porcine) (Heparin Sodium) 5,000 unit Q8HRS SQ Last administered on 05/06/21at 06:11; Start 05/05/21 at 22:00 Insulin Human Lispro (HumaLOG) 0-9 UNITS TIDWMEALS SQ ; Start 05/05/21 at 17:00 Dextrose (Dextrose 50%-Water Syringe) 12.5 gm PRN Q15MIN PRN IV SEE COMMENTS; Start 05/05/21 at 17:00 Active Scripts Active Admelog (Insulin Lispro) 100 Unit/1 Ml Vial 0 Units SQ TIDWMEALS 30 Days Acetaminophen 325 Mg Tablet 650 Mg PO PRN Q6HRS PRN 30 Days Omeprazole Magnesium 20 Mg Capsule. 1 Cap PO DAILY 30 Days Aspirin Ec (Aspirin) 81 Mg Tablet.dr 81 Mg PO DAILYWBKFT 30 Days Lantus (Insulin Glargine,Hum.rec.anlog) 100 Unit/1 Ml Vial 15 Unit SQ QHS 30 Days Acetaminophen Supp (Acetaminophen) 650 Mg Supp.rect 650 Mg WA PRN Q4HRS PRN 30 Days Hydralazine Hcl 25 Mg Tablet 25 Mg PO TID 30 Days Reported Baraclude (Entecavir) 0.5 Mg Tablet 0.5 Mg PO DAILY06 Vitamin C (Ascorbic Acid) 500 Mg Capsule 500 Mg PO BID Senokot (Sennosides) 8.6 Mg Tablet 1 Tab PO BID PRN 20 Days Nystatin 15 Gm Powder 1 Daniela TP BID 7 Days apply to affected area(s) Zoloft (Sertraline Hcl) 50 Mg Tablet 50 Mg PO DAILY Metoprolol Succinate ( Xl ) (Metoprolol Succinate) 25 Mg Tab.er.24h 25 Mg PO DAILY Slow Release Iron (Ferrous Sulfate) 160 Mg Tablet.er 160 Mg PO DAILY Buspirone Hcl 10 Mg Tablet 1 Tab PO PRN DAILY PRN Atorvastatin Calcium 40 Mg Tablet 40 Mg PO HS Allergies Allergies: Coded Allergies: adhesive tape (Verified Allergy, Unknown, Rash, 05/05/21) Sulfa (Sulfonamide Antibiotics) (Verified Adverse Reaction, Intermediate, Nausea and Vomiting, 12/21/20) ROS Review of System Constitutional: Denies fever or chills Eyes: Denies any visual disturbances HENT: Denies nasal congestion or sore throat Respiratory: Denies cough or shortness of breath Cardiovascular: Denies any palpitations or chest pain GI: Denies abdominal pain, nausea, vomiting, bloody stools or diarrhea : Denies dysuria or hematuria Musculoskeletal: As per HPI Integument: As per HPI Neurologic: No gross deficits Endocrine: Diabetes Physical Exam Physical Exam General: Alert and oriented X3 HEENT: Atraumatic, Pupils equal, round. Mucous membranes moist. Cardiac: Heart rate regular. Normal carotid pulses. Lungs: Non-labored respirations. Abdomen: Obese, Soft, nontender, nondistended, no palpable masses. Extremities: Biphasic doppler left DP and peroneal, doppler signal present in PT. Biphasic doppler right DP. Musculoskeletal: Gait steady. Moving all extremities. Skin: Right heel with small ulceration, clean. Right 4th toe with ulceration near nail bed, clean. Left heel with large area of full thickness ulceration, wound bed pink, mild fibrin slough, unable to palpate bone although minimal tissue overlying the bone. No purulent drainage. Mild erythema and swelling in lower extremities. Right upper arm access with healing incisions, palpable thrill. Neurological: Motor intact strength diminished, diminished sensation to light touch on plantar surface of feet. Psychiatry: No depression or anxiety Vitals VITALS Vital Signs Date Time Temp Pulse Resp B/P (MAP) Pulse Ox O2 Delivery O2 Flow Rate FiO2 05/06/21 11:00 98.0 71 17 118/23 (54) 93 Room Air 98.0 Labs Labs Laboratory Tests Test 05/05/21 16:46 05/05/21 19:40 05/05/21 20:30 05/06/21 07:50 Glucose (Fingerstick) 81 mg/dL (70-99) 110 mg/dL (70-99) White Blood Count 6.4 x10^3/uL (4.0-11.0) 5.9 x10^3/uL (4.0-11.0) Red Blood Count 3.13 x10^6/uL (4.30-5.70) 3.09 x10^6/uL (4.30-5.70) Hemoglobin 9.7 g/dL (13.0-17.5) 9.6 g/dL (13.0-17.5) Hematocrit 29.8 % (39.0-53.0) 29.7 % (39.0-53.0) Mean Corpuscular Volume 95 fL (79-100) 96 fL (79-100) Mean Corpuscular Hemoglobin 31 pg (25-35) 31 pg (25-35) Mean Corpuscular Hemoglobin Concent 33 g/dL (31-37) 32 g/dL (31-37) Red Cell Distribution Width 19.5 % (11.5-14.5) 19.5 % (11.5-14.5) Platelet Count 168 x10^3/uL (140-400) 170 x10^3/uL (140-400) Neutrophils (%) (Auto) 64 % (31-73) 57 % (31-73) Lymphocytes (%) (Auto) 19 % (24-48) 23 % (24-48) Monocytes (%) (Auto) 12 % (0-9) 13 % (0-9) Eosinophils (%) (Auto) 5 % (0-3) 6 % (0-3) Basophils (%) (Auto) 1 % (0-3) 2 % (0-3) Neutrophils # (Auto) 4.0 x10^3/uL (1.8-7.7) 3.4 x10^3/uL (1.8-7.7) Lymphocytes # (Auto) 1.2 x10^3/uL (1.0-4.8) 1.3 x10^3/uL (1.0-4.8) Monocytes # (Auto) 0.8 x10^3/uL (0.0-1.1) 0.7 x10^3/uL (0.0-1.1) Eosinophils # (Auto) 0.3 x10^3/uL (0.0-0.7) 0.3 x10^3/uL (0.0-0.7) Basophils # (Auto) 0.0 x10^3/uL (0.0-0.2) 0.1 x10^3/uL (0.0-0.2) Sodium Level 139 mmol/L (136-145) 139 mmol/L (136-145) Potassium Level 4.6 mmol/L (3.5-5.1) 4.4 mmol/L (3.5-5.1) Chloride Level 102 mmol/L (98-107) 102 mmol/L (98-107) Carbon Dioxide Level 26 mmol/L (21-32) 26 mmol/L (21-32) Anion Gap 11 (6-14) 11 (6-14) Blood Urea Nitrogen 39 mg/dL (8-26) 44 mg/dL (8-26) Creatinine 3.4 mg/dL (0.7-1.3) 3.7 mg/dL (0.7-1.3) Estimated GFR (Cockcroft-Gault) 17.8 16.2 BUN/Creatinine Ratio 11 (6-20) Glucose Level 114 mg/dL (70-99) 74 mg/dL (70-99) Lactic Acid Level 1.1 mmol/L (0.4-2.0) Calcium Level 8.7 mg/dL (8.5-10.1) 8.8 mg/dL (8.5-10.1) Total Bilirubin 0.7 mg/dL (0.2-1.0) Aspartate Amino Transf (AST/SGOT) 33 U/L (15-37) Alanine Aminotransferase (ALT/SGPT) 26 U/L (16-63) Alkaline Phosphatase 325 U/L (46-116) C-Reactive Protein, Quantitative 45.2 mg/L (0-3.3) Total Protein 6.9 g/dL (6.4-8.2) Albumin 2.2 g/dL (3.4-5.0) Albumin/Globulin Ratio 0.5 (1.0-1.7) Test 05/06/21 08:04 05/06/21 11:50 Glucose (Fingerstick) 78 mg/dL (70-99) 74 mg/dL (70-99) Laboratory Tests Test 05/05/21 16:46 05/05/21 19:40 05/05/21 20:30 05/06/21 07:50 Glucose (Fingerstick) 81 mg/dL (70-99) 110 mg/dL (70-99) White Blood Count 6.4 x10^3/uL (4.0-11.0) 5.9 x10^3/uL (4.0-11.0) Red Blood Count 3.13 x10^6/uL (4.30-5.70) 3.09 x10^6/uL (4.30-5.70) Hemoglobin 9.7 g/dL (13.0-17.5) 9.6 g/dL (13.0-17.5) Hematocrit 29.8 % (39.0-53.0) 29.7 % (39.0-53.0) Mean Corpuscular Volume 95 fL (79-100) 96 fL (79-100) Mean Corpuscular Hemoglobin 31 pg (25-35) 31 pg (25-35) Mean Corpuscular Hemoglobin Concent 33 g/dL (31-37) 32 g/dL (31-37) Red Cell Distribution Width 19.5 % (11.5-14.5) 19.5 % (11.5-14.5) Platelet Count 168 x10^3/uL (140-400) 170 x10^3/uL (140-400) Neutrophils (%) (Auto) 64 % (31-73) 57 % (31-73) Lymphocytes (%) (Auto) 19 % (24-48) 23 % (24-48) Monocytes (%) (Auto) 12 % (0-9) 13 % (0-9) Eosinophils (%) (Auto) 5 % (0-3) 6 % (0-3) Basophils (%) (Auto) 1 % (0-3) 2 % (0-3) Neutrophils # (Auto) 4.0 x10^3/uL (1.8-7.7) 3.4 x10^3/uL (1.8-7.7) Lymphocytes # (Auto) 1.2 x10^3/uL (1.0-4.8) 1.3 x10^3/uL (1.0-4.8) Monocytes # (Auto) 0.8 x10^3/uL (0.0-1.1) 0.7 x10^3/uL (0.0-1.1) Eosinophils # (Auto) 0.3 x10^3/uL (0.0-0.7) 0.3 x10^3/uL (0.0-0.7) Basophils # (Auto) 0.0 x10^3/uL (0.0-0.2) 0.1 x10^3/uL (0.0-0.2) Sodium Level 139 mmol/L (136-145) 139 mmol/L (136-145) Potassium Level 4.6 mmol/L (3.5-5.1) 4.4 mmol/L (3.5-5.1) Chloride Level 102 mmol/L (98-107) 102 mmol/L (98-107) Carbon Dioxide Level 26 mmol/L (21-32) 26 mmol/L (21-32) Anion Gap 11 (6-14) 11 (6-14) Blood Urea Nitrogen 39 mg/dL (8-26) 44 mg/dL (8-26) Creatinine 3.4 mg/dL (0.7-1.3) 3.7 mg/dL (0.7-1.3) Estimated GFR (Cockcroft-Gault) 17.8 16.2 BUN/Creatinine Ratio 11 (6-20) Glucose Level 114 mg/dL (70-99) 74 mg/dL (70-99) Lactic Acid Level 1.1 mmol/L (0.4-2.0) Calcium Level 8.7 mg/dL (8.5-10.1) 8.8 mg/dL (8.5-10.1) Total Bilirubin 0.7 mg/dL (0.2-1.0) Aspartate Amino Transf (AST/SGOT) 33 U/L (15-37) Alanine Aminotransferase (ALT/SGPT) 26 U/L (16-63) Alkaline Phosphatase 325 U/L (46-116) C-Reactive Protein, Quantitative 45.2 mg/L (0-3.3) Total Protein 6.9 g/dL (6.4-8.2) Albumin 2.2 g/dL (3.4-5.0) Albumin/Globulin Ratio 0.5 (1.0-1.7) Test 05/06/21 08:04 05/06/21 11:50 Glucose (Fingerstick) 78 mg/dL (70-99) 74 mg/dL (70-99) Assessment/Plan Assessment/Plan 75-year-old male with left heel ulcer now with concerns for exposed bone and osteomyelitis. Most likely the heel ulcer is a result of prolonged pressure to the area. Patient reports having had a large area of skin that evulsed following repetitive activity. Recent MRI suggest posterior calcaneous osteomyelitis. Overall the wound bed appears clean. I do not feel any exposed bone although there is minimal tissue overlying the bone. Patient has intact arterial circulation via hand-held Doppler. I discussed the patient's history and examination with Dr. Buenrostro and we recommend attempting wound VAC therapy as well as intravenous antibiotics in order to heal the wound. Recommend evaluation for hyperbaric oxygen treatments. Recommend patient continue strict offloading of his heels. Due to the fact that these have few healed in the past would attempt to heal these with local wound care and antibiotics if this fails could proceed with debridement. If wounds continue to fail patient may have to consider a more proximal amputation. CHAS BERNAL APRN May 06, 2021 13:02
--- NOTE | 2021-05-06 13:43 | PDOC2 ---
CONSULT Date of Consult Date of Consult DATE: 05/06/21 TIME: 13:34 Reason for Consult Reason for Consult: ESRD Identification/Chief Complaint Chief Complaint " Im here for Antibiotics" Source Source: Chart review, Patient History of Present Illness Reason for Visit: Patient is a 75-year-old CM with history of diabetes, anemia, hypertensio end-stage renal disease who presented to Wound Care due to concerns with left heel osteomyelitis. He completed 10 days of IV vancomycin. on dialysis at his OP unit He has this wound for a long time. He had undergone debridement on the left jose l l. He also had a similar wound on the right heel, which is healing well. He denies any fevers, chills, nausea, vomiting, diarrhea, abdominal pain or symptoms. Past Medical History Cardiovascular: AFIB, CAD, CHF, HTN, Hyperlipidemia CENTRAL NERVOUS SYSTEM: Periperal neuropathy GI: GERD, GI bleed Heme/Onc: Anemia NOS Psych: Anxiety, Depression Rheumatologic: Gout Renal/: Chronic renal failure Endocrine: Diabetes, Hyperparathyroidism Past Surgical History Past Surgical History: Pacemaker, Other (left heel debridement, right upper arm a-v acess, right chest PC) Family History Family History: Heart Disease, Hypertension Social History No ALCOHOL: none Drugs: None Lives: Senior Living Current Medications Current Medications Current Medications Aspirin (Ecotrin) 81 mg DAILYWBKFT PO Last administered on 05/06/21at 10:09; Start 05/06/21 at 08:00 Atorvastatin Calcium (Lipitor) 40 mg HS PO Last administered on 05/05/21at 21:10; Start 05/05/21 at 21:00 Buspirone HCl (Buspar) 10 mg PRN DAILY PRN PO ANXIETY / AGITATION; Start 05/05/21 at 16:45 Hydralazine HCl (Apresoline) 25 mg TID PO Last administered on 05/06/21at 10:09; Start 05/05/21 at 21:00 Insulin Glargine (Lantus Syringe) 15 unit QHS SQ ; Start 05/05/21 at 21:00 Insulin Human Lispro (HumaLOG VIAL for OP,RR ONLY) TIDWMEALS SQ ; Start 05/05/21 at 17:00; Status Cancel Metoprolol Succinate (Toprol Xl) 25 mg DAILY PO Last administered on 05/06/21at 10:09; Start 05/06/21 at 09:00 Nystatin (Nystop) 1 daniela BID TP Last administered on 05/06/21at 10:11; Start 05/05/21 at 21:00 Sennosides (Senna) 8.6 mg BID PRN PO CONSTIPATION; Start 05/05/21 at 16:45 Sertraline HCl (Zoloft) 50 mg DAILY PO Last administered on 05/06/21at 10:09; Start 05/06/21 at 09:00 Non-Formulary Medication (Entecavir (Baraclude)) 0.5 mg DAILY06 PO ; Start 05/06/21 at 06:00; Status UNV Polysaccharide Iron Complex (Niferex 150) 150 mg DAILY PO Last administered on 05/06/21at 10:09; Start 05/06/21 at 09:00 Ondansetron HCl (Zofran) 4 mg PRN Q6HRS PRN IVP NAUSEA/VOMITING; Start 05/05/21 at 17:00 Al Hydroxide/Mg Hydroxide (Mylanta Plus Xs) 30 ml PRN Q3HRS PRN PO HEARTBURN / GAS; Start 05/05/21 at 17:00 Calcium Carbonate/ Glycine (Tums) 500 mg PRN Q3HRS PRN PO UPSET STOMACH; Start 05/05/21 at 17:00 Acetaminophen/ Hydrocodone Bitart (Lortab 5/325) 1 tab PRN Q4HRS PRN PO MILD PAIN 1-3; Start 05/05/21 at 17:00 Acetaminophen (Tylenol) 650 mg PRN Q6HRS PRN PO Headaches, Temp > 101.5F; Start 05/05/21 at 17:00 Magnesium Hydroxide (Milk Of Magnesia) 2,400 mg PRN Q12HR PRN PO CONSTIPATION; Start 05/05/21 at 17:00 Heparin Sodium (Porcine) (Heparin Sodium) 5,000 unit Q8HRS SQ Last administered on 05/06/21at 06:11; Start 05/05/21 at 22:00 Insulin Human Lispro (HumaLOG) 0-9 UNITS TIDWMEALS SQ ; Start 05/05/21 at 17:00 Dextrose (Dextrose 50%-Water Syringe) 12.5 gm PRN Q15MIN PRN IV SEE COMMENTS; Start 05/05/21 at 17:00 Active Scripts Active Admelog (Insulin Lispro) 100 Unit/1 Ml Vial 0 Units SQ TIDWMEALS 30 Days Acetaminophen 325 Mg Tablet 650 Mg PO PRN Q6HRS PRN 30 Days Omeprazole Magnesium 20 Mg Capsule.dr 1 Cap PO DAILY 30 Days Aspirin Ec (Aspirin) 81 Mg Tablet.dr 81 Mg PO DAILYWBKFT 30 Days Lantus (Insulin Glargine,Hum.rec.anlog) 100 Unit/1 Ml Vial 15 Unit SQ QHS 30 Days Acetaminophen Supp (Acetaminophen) 650 Mg Supp.rect 650 Mg [place] PRN Q4HRS PRN 30 Days Hydralazine Hcl 25 Mg Tablet 25 Mg PO TID 30 Days Reported Baraclude (Entecavir) 0.5 Mg Tablet 0.5 Mg PO DAILY06 Vitamin C (Ascorbic Acid) 500 Mg Capsule 500 Mg PO BID Senokot (Sennosides) 8.6 Mg Tablet 1 Tab PO BID PRN 20 Days Nystatin 15 Gm Powder 1 Daniela TP BID 7 Days apply to affected area(s) Zoloft (Sertraline Hcl) 50 Mg Tablet 50 Mg PO DAILY Metoprolol Succinate ( Xl ) (Metoprolol Succinate) 25 Mg Tab.er.24h 25 Mg PO DAILY Slow Release Iron (Ferrous Sulfate) 160 Mg Tablet.er 160 Mg PO DAILY Buspirone Hcl 10 Mg Tablet 1 Tab PO PRN DAILY PRN Atorvastatin Calcium 40 Mg Tablet 40 Mg PO HS Allergies Allergies: Coded Allergies: adhesive tape (Verified Allergy, Unknown, Rash, 05/05/21) Sulfa (Sulfonamide Antibiotics) (Verified Adverse Reaction, Intermediate, Nausea and Vomiting, 12/21/20) ROS Review of System As per HPI, rest of the ROS is negative Physical Exam Physical Exam GENERAL: no acute distress. HEENT: Normocephalic, atraumatic. Oral mucosa is moist. NECK: Supple LUNGS: Clear bilaterally. Non labored HEART: S1, S2. No murmurs. ABDOMEN: Soft, nontender, nondistended, obese. Bowel sounds present. EXTREMITIES: (Per ID) Large ulcer at the left heel with mild surrounding erythema. Rt Arm AVF - not in use currently, has Rt HDC DERM: Warm, dry no rash. NEURO: Alert and oriented x 3, grossly nonfocal. PSYCHIATRIC: Calm and cooperative. Vital Signs Vital Signs Date Time Temp Pulse Resp B/P (MAP) Pulse Ox O2 Delivery O2 Flow Rate FiO2 10/1/21 11:00 98.0 71 17 118/23 (54) 93 Room Air 98.0 Assessment & Plan ESRD on HD MWF at [facility] , no missed treatments, Dialysis today , discussed treatment plan with Dawna ACcess recent tunneled hemodialysis catheter placement on 04/15/2021. Has AVF in Rt ARm- not mature . 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 ID Monitoring off antibiotics ; Vascular consulted . Hep Bs Ag Positive ; Hep B Core Ab Reactive .He was prescribed Entecavir 0.5 mg py Hepatology at [facility] Hx of Acute blood loss anemia secondary to GIB. s/p cauterization of bleeding antral ulcer by GI team and [facility] in November 2020 Hx of Renal calculus - RK- Possible intrarenal stones. LK Possible intrarenal stones to include a 13 mm focus of increased echogenicity at the upper pole.No e/o obstruction reported . Pt denies any past history chronic diastolic CHF; Echo 07/25 with preserved LV systolic function CAD; s/p PCI/RHEA to LAD in 2018. clinically stable, CP free. Diabetes mellitus. Labs Labs Laboratory Tests Test 05/05/21 16:46 05/05/21 19:40 05/05/21 20:30 05/06/21 07:50 Glucose (Fingerstick) 81 mg/dL (70-99) 110 mg/dL (70-99) White Blood Count 6.4 x10^3/uL (4.0-11.0) 5.9 x10^3/uL (4.0-11.0) Red Blood Count 3.13 x10^6/uL (4.30-5.70) 3.09 x10^6/uL (4.30-5.70) Hemoglobin 9.7 g/dL (13.0-17.5) 9.6 g/dL (13.0-17.5) Hematocrit 29.8 % (39.0-53.0) 29.7 % (39.0-53.0) Mean Corpuscular Volume 95 fL (79-100) 96 fL (79-100) Mean Corpuscular Hemoglobin 31 pg (25-35) 31 pg (25-35) Mean Corpuscular Hemoglobin Concent 33 g/dL (31-37) 32 g/dL (31-37) Red Cell Distribution Width 19.5 % (11.5-14.5) 19.5 % (11.5-14.5) Platelet Count 168 x10^3/uL (140-400) 170 x10^3/uL (140-400) Neutrophils (%) (Auto) 64 % (31-73) 57 % (31-73) Lymphocytes (%) (Auto) 19 % (24-48) 23 % (24-48) Monocytes (%) (Auto) 12 % (0-9) 13 % (0-9) Eosinophils (%) (Auto) 5 % (0-3) 6 % (0-3) Basophils (%) (Auto) 1 % (0-3) 2 % (0-3) Neutrophils # (Auto) 4.0 x10^3/uL (1.8-7.7) 3.4 x10^3/uL (1.8-7.7) Lymphocytes # (Auto) 1.2 x10^3/uL (1.0-4.8) 1.3 x10^3/uL (1.0-4.8) Monocytes # (Auto) 0.8 x10^3/uL (0.0-1.1) 0.7 x10^3/uL (0.0-1.1) Eosinophils # (Auto) 0.3 x10^3/uL (0.0-0.7) 0.3 x10^3/uL (0.0-0.7) Basophils # (Auto) 0.0 x10^3/uL (0.0-0.2) 0.1 x10^3/uL (0.0-0.2) Sodium Level 139 mmol/L (136-145) 139 mmol/L (136-145) Potassium Level 4.6 mmol/L (3.5-5.1) 4.4 mmol/L (3.5-5.1) Chloride Level 102 mmol/L (98-107) 102 mmol/L (98-107) Carbon Dioxide Level 26 mmol/L (21-32) 26 mmol/L (21-32) Anion Gap 11 (6-14) 11 (6-14) Blood Urea Nitrogen 39 mg/dL (8-26) 44 mg/dL (8-26) Creatinine 3.4 mg/dL (0.7-1.3) 3.7 mg/dL (0.7-1.3) Estimated GFR (Cockcroft-Gault) 17.8 16.2 BUN/Creatinine Ratio 11 (6-20) Glucose Level 114 mg/dL (70-99) 74 mg/dL (70-99) Lactic Acid Level 1.1 mmol/L (0.4-2.0) Calcium Level 8.7 mg/dL (8.5-10.1) 8.8 mg/dL (8.5-10.1) Total Bilirubin 0.7 mg/dL (0.2-1.0) Aspartate Amino Transf (AST/SGOT) 33 U/L (15-37) Alanine Aminotransferase (ALT/SGPT) 26 U/L (16-63) Alkaline Phosphatase 325 U/L (46-116) C-Reactive Protein, Quantitative 45.2 mg/L (0-3.3) Total Protein 6.9 g/dL (6.4-8.2) Albumin 2.2 g/dL (3.4-5.0) Albumin/Globulin Ratio 0.5 (1.0-1.7) Test 05/06/21 08:04 05/06/21 11:50 Glucose (Fingerstick) 78 mg/dL (70-99) 74 mg/dL (70-99) Laboratory Tests Test 05/05/21 16:46 05/05/21 19:40 05/05/21 20:30 05/06/21 07:50 Glucose (Fingerstick) 81 mg/dL (70-99) 110 mg/dL (70-99) White Blood Count 6.4 x10^3/uL (4.0-11.0) 5.9 x10^3/uL (4.0-11.0) Red Blood Count 3.13 x10^6/uL (4.30-5.70) 3.09 x10^6/uL (4.30-5.70) Hemoglobin 9.7 g/dL (13.0-17.5) 9.6 g/dL (13.0-17.5) Hematocrit 29.8 % (39.0-53.0) 29.7 % (39.0-53.0) Mean Corpuscular Volume 95 fL (79-100) 96 fL (79-100) Mean Corpuscular Hemoglobin 31 pg (25-35) 31 pg (25-35) Mean Corpuscular Hemoglobin Concent 33 g/dL (31-37) 32 g/dL (31-37) Red Cell Distribution Width 19.5 % (11.5-14.5) 19.5 % (11.5-14.5) Platelet Count 168 x10^3/uL (140-400) 170 x10^3/uL (140-400) Neutrophils (%) (Auto) 64 % (31-73) 57 % (31-73) Lymphocytes (%) (Auto) 19 % (24-48) 23 % (24-48) Monocytes (%) (Auto) 12 % (0-9) 13 % (0-9) Eosinophils (%) (Auto) 5 % (0-3) 6 % (0-3) Basophils (%) (Auto) 1 % (0-3) 2 % (0-3) Neutrophils # (Auto) 4.0 x10^3/uL (1.8-7.7) 3.4 x10^3/uL (1.8-7.7) Lymphocytes # (Auto) 1.2 x10^3/uL (1.0-4.8) 1.3 x10^3/uL (1.0-4.8) Monocytes # (Auto) 0.8 x10^3/uL (0.0-1.1) 0.7 x10^3/uL (0.0-1.1) Eosinophils # (Auto) 0.3 x10^3/uL (0.0-0.7) 0.3 x10^3/uL (0.0-0.7) Basophils # (Auto) 0.0 x10^3/uL (0.0-0.2) 0.1 x10^3/uL (0.0-0.2) Sodium Level 139 mmol/L (136-145) 139 mmol/L (136-145) Potassium Level 4.6 mmol/L (3.5-5.1) 4.4 mmol/L (3.5-5.1) Chloride Level 102 mmol/L (98-107) 102 mmol/L (98-107) Carbon Dioxide Level 26 mmol/L (21-32) 26 mmol/L (21-32) Anion Gap 11 (6-14) 11 (6-14) Blood Urea Nitrogen 39 mg/dL (8-26) 44 mg/dL (8-26) Creatinine 3.4 mg/dL (0.7-1.3) 3.7 mg/dL (0.7-1.3) Estimated GFR (Cockcroft-Gault) 17.8 16.2 BUN/Creatinine Ratio 11 (6-20) Glucose Level 114 mg/dL (70-99) 74 mg/dL (70-99) Lactic Acid Level 1.1 mmol/L (0.4-2.0) Calcium Level 8.7 mg/dL (8.5-10.1) 8.8 mg/dL (8.5-10.1) Total Bilirubin 0.7 mg/dL (0.2-1.0) Aspartate Amino Transf (AST/SGOT) 33 U/L (15-37) Alanine Aminotransferase (ALT/SGPT) 26 U/L (16-63) Alkaline Phosphatase 325 U/L (46-116) C-Reactive Protein, Quantitative 45.2 mg/L (0-3.3) Total Protein 6.9 g/dL (6.4-8.2) Albumin 2.2 g/dL (3.4-5.0) Albumin/Globulin Ratio 0.5 (1.0-1.7) Test 05/06/21 08:04 05/06/21 11:50 Glucose (Fingerstick) 78 mg/dL (70-99) 74 mg/dL (70-99) Review All relevant outside records, renal labs, imaging studies, telemetry/EKG's were reviewed. Images Images MRI of left lower extremity on 03/16/2021: T1 marrow replacement of the posterior calcaneus subjacent to the soft tissue ulceration consistent with osteomyelitis, thickening of the consistent with tendinosis, moderate fatty atrophy and edema of the muscle of the foot may be seen with degeneration myositis, diffuse soft tissue swelling along the left ankle, nonspecific, but cellulitis is not excluded, multifocal degenerative changes. BEATRIZ IBARRA MD May 06, 2021 13:43
[2021-05-06] MEDS ORDERED: DIALYSIS PATIENT. MC PRN ×2 (14:15)
[2021-05-06] MEDS ORDERED: ALBUMIN HUMAN 25% 200 ML IV PRN (14:15)
[2021-05-06] MEDS ORDERED: IV NORMAL SALINE 1000ML BAG 1,000 ML IV PRN ×2 (14:15)
[2021-05-06] MEDS ORDERED: 0.9 % SODIUM CHLORIDE 10 ML DISP.SYRIN. IV PRN ×2 (14:15)
[2021-05-06] MEDS ORDERED: SENNOSIDES 8.6 MG TABLET PO PRN (15:00)
--- NOTE | 2021-05-06 15:01 | PDOC ---
[employer] PROGRESS NOTE Date of Service DOS: DATE: 05/06/21 TIME: 14:58 Chief Complaint Chief Complaint Ulcers to bilateral heels, left > right, concerning for possible osteomyelitis to left heel Diastolic congestive heart failure ESRD on HD DM2 Plan: We will admit patient with ID consult Patient is not septic appearing at this time; will obtain blood cultures and defer antibiotic recommendations to ID MRI on 03/16/2021 that showed T1 marrow replacement of the posterior calcaneus, subjacent to the soft tissue ulceration, consistent with osteomyelitis. Consultation placed to nephrology Basal/prandial insulin Resume home medications FEN - Renal diet PPX - Heparin DNR Dispo - inpatient for above Patient names his sister (Phuong Mathis) as surrogate decision-maker History of Present Illness History of Present Illness Patient 75-year-old male with past medical history ESRD on HD, DM2, anemia, HTN, HLD, who presents as a direct admit from wound care clinic due to concerns for left heel osteomyelitis. At the time of my evaluation patient has no specific complaints, denies any pain. States he has been receiving wound care at [facility], but today is his first visit to outpatient wound care. He denies any fever, nausea, vomiting, or drainage noted from bilateral heels. He receives hemodialysis Sunday/Sunday/Sunday. Will admit patient for further medical management 05/06/2021: Afebrile. Seen by vascular surgery and recommended attempting wound VAC therapy, IV antibiotics. Also recommend evaluation for hyperbaric oxygen treatments. Strict offloading of his heels. Continue HD, per nephrology. Vitals/I&O Vitals/I&O: Vital Signs Date Time Temp Pulse Resp B/P (MAP) Pulse Ox O2 Delivery O2 Flow Rate FiO2 05/06/21 11:00 98.0 71 17 118/23 (54) 93 Room Air 98.0 I & O 05/05/21 05/05/21 05/06/21 15:00 23:00 07:00 Intake Total 280 ml Balance 280 ml Physical Exam General: Alert, Cooperative, No acute distress Heart: Regular rate Lungs: Clear, Other Extremities: Other (Bilateral lower extremities with dressings clean, dry, intact) Skin: Other (Dry skin with chronic trophic changes) Labs Labs: Laboratory Tests Test 05/05/21 16:46 9/30/21 19:40 05/05/21 20:30 05/06/21 07:50 Glucose (Fingerstick) 81 mg/dL (70-99) 110 mg/dL (70-99) White Blood Count 6.4 x10^3/uL (4.0-11.0) 5.9 x10^3/uL (4.0-11.0) Red Blood Count 3.13 x10^6/uL (4.30-5.70) 3.09 x10^6/uL (4.30-5.70) Hemoglobin 9.7 g/dL (13.0-17.5) 9.6 g/dL (13.0-17.5) Hematocrit 29.8 % (39.0-53.0) 29.7 % (39.0-53.0) Mean Corpuscular Volume 95 fL (79-100) 96 fL (79-100) Mean Corpuscular Hemoglobin 31 pg (25-35) 31 pg (25-35) Mean Corpuscular Hemoglobin Concent 33 g/dL (31-37) 32 g/dL (31-37) Red Cell Distribution Width 19.5 % (11.5-14.5) 19.5 % (11.5-14.5) Platelet Count 168 x10^3/uL (140-400) 170 x10^3/uL (140-400) Neutrophils (%) (Auto) 64 % (31-73) 57 % (31-73) Lymphocytes (%) (Auto) 19 % (24-48) 23 % (24-48) Monocytes (%) (Auto) 12 % (0-9) 13 % (0-9) Eosinophils (%) (Auto) 5 % (0-3) 6 % (0-3) Basophils (%) (Auto) 1 % (0-3) 2 % (0-3) Neutrophils # (Auto) 4.0 x10^3/uL (1.8-7.7) 3.4 x10^3/uL (1.8-7.7) Lymphocytes # (Auto) 1.2 x10^3/uL (1.0-4.8) 1.3 x10^3/uL (1.0-4.8) Monocytes # (Auto) 0.8 x10^3/uL (0.0-1.1) 0.7 x10^3/uL (0.0-1.1) Eosinophils # (Auto) 0.3 x10^3/uL (0.0-0.7) 0.3 x10^3/uL (0.0-0.7) Basophils # (Auto) 0.0 x10^3/uL (0.0-0.2) 0.1 x10^3/uL (0.0-0.2) Sodium Level 139 mmol/L (136-145) 139 mmol/L (136-145) Potassium Level 4.6 mmol/L (3.5-5.1) 4.4 mmol/L (3.5-5.1) Chloride Level 102 mmol/L (98-107) 102 mmol/L (98-107) Carbon Dioxide Level 26 mmol/L (21-32) 26 mmol/L (21-32) Anion Gap 11 (6-14) 11 (6-14) Blood Urea Nitrogen 39 mg/dL (8-26) 44 mg/dL (8-26) Creatinine 3.4 mg/dL (0.7-1.3) 3.7 mg/dL (0.7-1.3) Estimated GFR (Cockcroft-Gault) 17.8 16.2 BUN/Creatinine Ratio 11 (6-20) Glucose Level 114 mg/dL (70-99) 74 mg/dL (70-99) Lactic Acid Level 1.1 mmol/L (0.4-2.0) Calcium Level 8.7 mg/dL (8.5-10.1) 8.8 mg/dL (8.5-10.1) Total Bilirubin 0.7 mg/dL (0.2-1.0) Aspartate Amino Transf (AST/SGOT) 33 U/L (15-37) Alanine Aminotransferase (ALT/SGPT) 26 U/L (16-63) Alkaline Phosphatase 325 U/L (46-116) C-Reactive Protein, Quantitative 45.2 mg/L (0-3.3) Total Protein 6.9 g/dL (6.4-8.2) Albumin 2.2 g/dL (3.4-5.0) Albumin/Globulin Ratio 0.5 (1.0-1.7) Test 05/06/21 08:04 05/06/21 11:50 Glucose (Fingerstick) 78 mg/dL (70-99) 74 mg/dL (70-99) Comment Review of Relevant I have reviewed the following items mara (where applicable) has been applied. Medications: Current Medications Medications (Trade) Dose Ordered Sig/Redd Route PRN Reason Start Time Stop Time Status Last Admin Dose Admin Aspirin (Ecotrin) 81 mg DAILYWBKFT PO 05/06/21 08:00 05/06/21 10:09 Atorvastatin Calcium (Lipitor) 40 mg HS PO 05/05/21 21:00 05/05/21 21:10 Hydralazine HCl (Apresoline) 25 mg TID PO 05/05/21 21:00 05/06/21 10:09 Metoprolol Succinate (Toprol Xl) 25 mg DAILY PO 05/06/21 09:00 05/06/21 10:09 Nystatin (Nystop) 1 luna BID TP 05/05/21 21:00 05/06/21 10:11 Sertraline HCl (Zoloft) 50 mg DAILY PO 05/06/21 09:00 05/06/21 10:09 Polysaccharide Iron Complex (Niferex 150) 150 mg DAILY PO 05/06/21 09:00 05/06/21 10:09 Heparin Sodium (Porcine) (Heparin Sodium) 5,000 unit Q8HRS SQ 05/05/21 22:00 05/06/21 06:11 Justifications for Admission General Conditions Other justification for admit: Possible osteomyelitis, diabetic foot ulcer, ESRD on HD Other Justification CHF exacerbation HOANG MAGAÑA MD May 06, 2021 15:01
--- NOTE | 2021-05-06 16:04 | NUR ---
Wound/Ostomy Care Wound Type/Assessment: Patient seen per wound care follow up for wound vac placement per orders from vascular. Patient well [facility] Wound cleansed and assessed. Treatment Recommendations/Plan: Skin prepped for vac placement and 1 piece of choice foam applied to heel, vac tracked up to left lateral lower leg, a good seal maintained at 125mmHg intermittently with the settings of 10ml of NS instilled every 3 hours for a dwell time of 3 minutes. No other wounds noted. Education provided: Patient educated regarding wound care, patient very familiar with wound care and our recommendations. Offloading surface/device: Bilateral heels floated using heel medix. Patient encouraged to turn for offloading. Recommended Referrals/Tests: N/A Discharge Recommendations for dressings: Wound care will follow on Sunday05/09/21 for vac dressing change. Patient in dialysis during assessment, call light in reach.
[2021-05-06 19:00] VITALS: BP 118/65
[2021-05-06] MEDS: INSULIN GLARGINE SYRINGE. SQ SCH (20:21)
[2021-05-06] MEDS: ATORVASTATIN CALCIUM 40 MG TABLET. PO SCH (21:00)
[2021-05-06 23:00] VITALS: BP 126/40
[2021-05-07 03:00] VITALS: BP 126/39
[2021-05-07] MEDS: ENTECAVIR 0.5 MG PO SCH (05:27)
[2021-05-07] MEDS: HEPARIN for SUB-Q USE 5,000 UNIT/ML VIAL. SQ SCH ×3 (05:36→21:44)
[2021-05-07 07:00] VITALS: BP 131/58
[2021-05-07] MEDS: INSULIN LISPRO 300 UNITS/3 ML VIAL. SQ SCH ×3 (08:00→17:00)
--- NOTE | 2021-05-07 08:48 | PDOC ---
Infectious Disease Note Subjective: Subjective Patient without complaints Vital Signs: Vital Signs Vital Signs Date Time Temp Pulse Resp B/P (MAP) Pulse Ox O2 Delivery O2 Flow Rate FiO2 05/07/21 03:00 98.1 71 126/39 (68) 92 Room Air 98.1 05/06/21 23:00 20 Physical Exam: PHYSICAL EXAM GENERAL: Alert, oriented x 3, cooperative male lying in bed comfortably, in no acute distress. VITAL SIGNS: Reviewed. HEENT: Normocephalic, atraumatic. Pupils are equal, reactive. Extraocular movements are intact. No thrush. Oral mucosa is moist. NECK: Supple, no JVD. LUNGS: Clear bilaterally. No wheezing. HEART: S1, S2. No murmurs. CHEST WALL: Right HD catheter site irritation and redness around the HD catheter. ABDOMEN: Soft, nontender, nondistended, obese. Bowel sounds present. EXTREMITIES: Large ulcer at the left heel with mild surrounding erythema. No bone palpated, though there is a thin sliver of tissue just close to the bone, chronic trophic changes to bilateral lower extremities. DERMATOLOGIC: Warm, dry, no generalized rash. NEUROLOGIC: Alert and oriented x 3, grossly nonfocal. PSYCHIATRIC: Calm and cooperative. Right HDC looks slightly irritated, but no purulence, no tenderness. Medications: Inpatient Meds: Medications reviewed. Labs: Lab Laboratory Tests Test 05/06/21 11:50 05/06/21 17:52 05/06/21 19:38 05/07/21 08:08 Glucose (Fingerstick) 74 mg/dL (70-99) 71 mg/dL (70-99) 137 mg/dL (70-99) 83 mg/dL (70-99) Objective: Assessment: 1. Left heel calcaneal osteomyelitis. 2. Chronic nonhealing left heel ulcer. 3. History of chronic right heel ulcer, healing. 4. End-stage renal disease, on hemodialysis, recent tunneled catheter changed. 5. Diabetes mellitus. 6. Peripheral arterial disease. 7. Obesity. 8. Congestive heart failure. 9. SULFA ALLERGY. 10. Hepatitis B surface antigen positive, on entecavir. 11. Chronic anemia. 12. Morbid obesity. Plan: Plan of Care We will give trial with IV antibiotics Like to avoid PICC line with patient with end-stage renal disease Will start empiric Vanco and cefepime postdialysis on dialysis days, dosing discussed with pharmacy Will need total 6 weeks of treatment Vascular input noted for wound VAC and IV antibiotic trial Do not place PICC line. Monitor labs and cultures. Continue supportive care. Offload. Wound care as per wound team. If wound worsens he will need surgical intervention, patient verbalizes understanding Discussed with pharmacy AMADOR ROSA MD May 07, 2021 08:48
[2021-05-07] MEDS: SERTRALINE 50 MG TABLET. PO SCH (09:14)
[2021-05-07] MEDS: IRON POLYSACCHARIDE COMPLEX 150 MG CAPSULE PO SCH (09:14)
[2021-05-07] MEDS: ASPIRIN ENTERIC COATED 81 MG TABLET.DR. PO SCH (09:14)
[2021-05-07] MEDS: hydrALAZINE 25 MG TABLET PO SCH ×3 (09:15→21:00)
[2021-05-07] MEDS: METOPROLOL SUCC 24HR ER 25 MG TAB.ER.24H. PO SCH (09:16)
[2021-05-07] MEDS: NYSTATIN TOPICAL POWDER 15GM BOTTLE. TP SCH ×2 (09:17→21:00)
[2021-05-07 10:17] LABS: BASO # 0.1 x10^3/uL (0.0-0.2); BASO % 2 % (0-3); EOS # 0.3 x10^3/uL (0.0-0.7); EOS % 5 % (0-3); HEMATOCRIT 30.7 % (39.0-53.0); HEMOGLOBIN 9.9 g/dL (13.0-17.5); LYMPH # 1.1 x10^3/uL (1.0-4.8); LYMPH % 18 % (24-48); MEAN CORPUSCULAR HEMOGLOBIN 31 pg (25-35); MEAN CORPUSCULAR HGB CONC 32 g/dL (31-37); MEAN CORPUSCULAR VOLUME 96 fL (79-100); MONO # 0.8 x10^3/uL (0.0-1.1); MONO % 13 % (0-9); NEUT # 3.8 x10^3/uL (1.8-7.7); NEUT % 62 % (31-73); PLATELET COUNT 164 x10^3/uL (140-400); RED BLOOD COUNT 3.19 x10^6/uL (4.30-5.70); RED CELL DISTRIBUTION WIDTH 19.6 % (11.5-14.5)
[2021-05-07 10:34] LABS: CALCIUM 8.7 mg/dL (8.5-10.1); CREATININE 3.2 mg/dL (0.7-1.3); GFR 19.1; POTASSIUM 4.3 mmol/L (3.5-5.1)
[2021-05-07 11:00] VITALS: BP 136/62
[2021-05-07] MEDS ORDERED: VANCOMYCIN 2 GM in IV NORMAL SALINE 500ML BAG 500 ML IV ONE (12:00)
[2021-05-07] MEDS: CEFEPIME HCL IV Push 2 GM VIAL. IVP SCH (12:26)
--- NOTE | 2021-05-07 13:19 | PDOC ---
Provider Note Date of Service: DATE: 05/07/21 TIME: 13:17 Provider Note This is a pleasant 75-year-old male with a past medical history of end-stage renal disease on hemodialysis, diabetes, anemia, hyperlipidemia, and hypertension who presented as a direct admit from the wound care center for with concerns for left heel exposed bone and osteomyelitis. Patient reports a history of left heel wound. He underwent debridement in December of this year. In addition he had angiography that demonstrated two vessel runoff into the foot. The patient was then transferred to rehab. He states he has been diligent in off-loading his heels. He reports that his left heel had almost healed until he started using the bicycle at rehab then one day he noticed a large area of skin had peeled off of his heel. Patient says he has neuropathy and has minimal sensation in his feet. Patient has been receiving wound care at [facility]. Patient denies any fever or chills. Patient denies any nausea or vomiting. He recently had right upper arm access placed for dialysis at [facility]. The patient reports he has some difficulty remember when events occur. In addition the patient reports good success with HBO. He states he is still limited in his mobility and spends most of his time in bed. Vascular surgery staff note: Patient seen and examined. I agree with nurse practitioners assessment and plan unless otherwise stated. I personally examined the patient and reviewed the chart as well as provide recommendations. He had angiographic evaluation in December of this year. He has two-vessel runoff via the peroneal artery and anterior tibial artery which should provide him with adequate circulation for the the wound healing. The wound itself appears to be granulating well and appears healthy. Does not probe to bone and there is no evidence of abscess. I concur with the recommendation for wound VAC therapy, IV antibiotics and observation. He may at some point require further debridement but no further vascular intervention should be required. We will follow as needed. Fahad La MD, vascular surgeon Justifications for Admission General Conditions Other justification for admit: Possible osteomyelitis, diabetic foot ulcer, ESRD on HD Other Justification CHF exacerbation FAHAD GOODE II, MD May 07, 2021 13:19
--- NOTE | 2021-05-07 14:21 | PDOC ---
DATE OF SERVICE DATE: 05/07/21 TIME: 14:21 SUBJECTIVE ROS No complaints OBJECTIVE Vital Signs Vital Signs Date Time Temp Pulse Resp B/P (MAP) Pulse Ox O2 Delivery O2 Flow Rate FiO2 05/07/21 14:07 77 136/62 05/07/21 11:00 97.6 92 Room Air 97.6 05/06/21 23:00 20 I & 0 Intake and Output 05/07/21 07:00 Intake Total 1000 ml Balance 1000 ml Intake Oral 1000 ml # Voids 3 # Bowel Movements 1 PHYSICAL EXAM Physical Exam GENERAL: no acute distress. HEENT: Normocephalic, atraumatic. Oral mucosa is moist. NECK: Supple LUNGS: Clear bilaterally. Non labored HEART: S1, S2. No murmurs. ABDOMEN: Soft, nontender, nondistended, obese. Bowel sounds present. EXTREMITIES: (Per ID) Large ulcer at the left heel with mild surrounding erythema. Rt Arm AVF - not in use currently, has Rt HDC DERM: Warm, dry no rash. NEURO: Alert and oriented x 3, grossly nonfocal. PSYCHIATRIC: Calm and cooperative. DIAGNOSIS/ASSESSMENT Assessment & Plan ESRD on HD MWF at [facility] ,no indication for HD today ACcess recent tunneled hemodialysis catheter placement on 04/15/2021. Has AVF in Rt ARm- not mature . 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 ID Monitoring off antibiotics ; Vascular consulted . Hep Bs Ag Positive ; Hep B Core Ab Reactive .He was prescribed Entecavir 0.5 mg py Hepatology at [facility] Hx of Acute blood loss anemia secondary to GIB. s/p cauterization of bleeding antral ulcer by GI team and [facility]BC in November 2020 Hx of Renal calculus - RK- Possible intrarenal stones. LK Possible intrarenal stones to include a 13 mm focus of increased echogenicity at the upper pole.No e/o obstruction reported . Pt denies any past history chronic diastolic CHF; Echo 07/25 with preserved LV systolic function CAD; s/p PCI/RHEA to LAD in 2018. clinically stable, CP free. COMMENT/RELEVANT DATA Meds Current Medications Medications (Trade) Dose Ordered Sig/Redd Start Time Stop Time Status Last Admin Dose Admin Acetaminophen (Tylenol) 650 mg PRN Q6HRS PRN 05/05/21 17:00 Acetaminophen/ Hydrocodone Bitart (Lortab 5/325) 1 tab PRN Q4HRS PRN 05/05/21 17:00 Al Hydroxide/Mg Hydroxide (Mylanta Plus Xs) 30 ml PRN Q3HRS PRN 05/05/21 17:00 Albumin Human 200 ml @ 200 mls/hr 1X PRN PRN 05/06/21 14:15 05/06/21 20:14 DC Aspirin (Ecotrin) 81 mg [id number] 05/06/21 08:00 05/07/21 09:14 81 MG Atorvastatin Calcium (Lipitor) 40 mg HS 05/05/21 21:00 05/06/21 21:00 40 MG Buspirone HCl (Buspar) 10 mg PRN DAILY PRN 05/05/21 16:45 Calcium Carbonate/ Glycine (Tums) 500 mg PRN Q3HRS PRN 05/05/21 17:00 Cefepime HCl (Maxipime) 3 gm QFR@1600 05/13/21 16:00 Dextrose (Dextrose 50%-Water Syringe) 12.5 gm PRN Q15MIN PRN 05/05/21 17:00 Heparin Sodium (Porcine) (Heparin Sodium) 5,000 unit Q8HRS 05/05/21 22:00 05/07/21 14:12 5,000 UNIT Hydralazine HCl (Apresoline) 25 mg TID 05/05/21 21:00 05/07/21 14:07 25 MG Info (PHARMACY MONITORING -- do not chart) 1 each PRN DAILY PRN 05/06/21 14:15 Insulin Glargine (Lantus Syringe) 15 unit QHS 05/05/21 21:00 Insulin Human Lispro (HumaLOG VIAL for OP,RR ONLY) TIDWMEALS 05/05/21 17:00 Cancel Insulin Human Lispro (HumaLOG) 0-9 UNITS TIDWMEALS 05/05/21 17:00 Magnesium Hydroxide (Milk Of Magnesia) 2,400 mg PRN Q12HR PRN 05/05/21 17:00 Metoprolol Succinate (Toprol Xl) 25 mg DAILY 05/06/21 09:00 05/07/21 09:16 25 MG Non-Formulary Medication (Entecavir (Baraclude)) 0.5 mg DAILY06 05/06/21 06:00 UNV Nystatin (Nystop) 1 luna BID 05/05/21 21:00 05/07/21 09:17 1 LUNA Ondansetron HCl (Zofran) 4 mg PRN Q6HRS PRN 05/05/21 17:00 Polysaccharide Iron Complex (Niferex 150) 150 mg DAILY 05/06/21 09:00 05/07/21 09:14 150 MG Sennosides (Senna) 8.6 mg PRN BID PRN 05/06/21 15:00 Sertraline HCl (Zoloft) 50 mg DAILY 05/06/21 09:00 05/07/21 09:14 50 MG Sodium Chloride 1,000 ml @ 400 mls/hr Q2H30M PRN 05/06/21 14:15 05/07/21 02:14 DC Sodium Chloride (Normal Saline Flush) 10 ml 1X PRN PRN 05/06/21 14:15 05/07/21 14:14 DC Vancomycin HCl (Vanco Per Pharmacy) 1 each PRN DAILY PRN 05/07/21 10:15 Vancomycin HCl 2 gm/Sodium Chloride 500 ml @ 250 mls/hr 1X ONCE 05/07/21 12:00 05/07/21 13:59 DC 05/07/21 12:26 250 MLS/HR Lab Laboratory Tests Test 05/06/21 17:52 05/06/21 19:38 05/07/21 08:08 05/07/21 09:22 Glucose (Fingerstick) 71 mg/dL (70-99) 137 mg/dL (70-99) 83 mg/dL (70-99) White Blood Count 6.0 x10^3/uL (4.0-11.0) Red Blood Count 3.19 x10^6/uL (4.30-5.70) Hemoglobin 9.9 g/dL (13.0-17.5) Hematocrit 30.7 % (39.0-53.0) Mean Corpuscular Volume 96 fL (79-100) Mean Corpuscular Hemoglobin 31 pg (25-35) Mean Corpuscular Hemoglobin Concent 32 g/dL (31-37) Red Cell Distribution Width 19.6 % (11.5-14.5) Platelet Count 164 x10^3/uL (140-400) Neutrophils (%) (Auto) 62 % (31-73) Lymphocytes (%) (Auto) 18 % (24-48) Monocytes (%) (Auto) 13 % (0-9) Eosinophils (%) (Auto) 5 % (0-3) Basophils (%) (Auto) 2 % (0-3) Neutrophils # (Auto) 3.8 x10^3/uL (1.8-7.7) Lymphocytes # (Auto) 1.1 x10^3/uL (1.0-4.8) Monocytes # (Auto) 0.8 x10^3/uL (0.0-1.1) Eosinophils # (Auto) 0.3 x10^3/uL (0.0-0.7) Basophils # (Auto) 0.1 x10^3/uL (0.0-0.2) Sodium Level 137 mmol/L (136-145) Potassium Level 4.3 mmol/L (3.5-5.1) Chloride Level 100 mmol/L (98-107) Carbon Dioxide Level 28 mmol/L (21-32) Anion Gap 9 (6-14) Blood Urea Nitrogen 32 mg/dL (8-26) Creatinine 3.2 mg/dL (0.7-1.3) Estimated GFR (Cockcroft-Gault) 19.1 Glucose Level 108 mg/dL (70-99) Calcium Level 8.7 mg/dL (8.5-10.1) Test 05/07/21 10:57 Glucose (Fingerstick) 105 mg/dL (70-99) Results All relevant outside records, renal labs, imaging studies, telemetry/EKG's were reviewed. Justicifation of Admission Dx: Justifications for Admission: Justification of Admission Dx: Yes BEATRIZ IBARRA MD May 07, 2021 14:21
--- NOTE | 2021-05-07 14:46 | PDOC ---
[employer] PROGRESS NOTE Date of Service DOS: DATE: 05/07/21 TIME: 14:37 Chief Complaint Chief Complaint Ulcers to bilateral heels, left > right, concerning for possible osteomyelitis to left heel Diastolic congestive heart failure ESRD on HD DM2 Left heel calcaneal osteomyelitis. Chronic nonhealing left heel ulcer. Peripheral arterial disease. Chronic diastolic Congestive heart failure. Hepatitis B surface antigen positive - on entecavir. Chronic anemia related to chronic renal insufficiency Morbid obesity - counseled on lifestyle modification Plan: We will admit patient with ID consult Patient is not septic appearing at this time; will obtain blood cultures and defer antibiotic recommendations to ID MRI on 03/16/2021 that showed T1 marrow replacement of the posterior calcaneus, subjacent to the soft tissue ulceration, consistent with osteomyelitis. Consultation placed to nephrology Basal/prandial insulin Resume home medications FEN - Renal diet PPX - Heparin DNR Dispo - inpatient for above Patient names his sister (Phuong Mathis) as surrogate decision-maker 33 minutes spent on chart review, patient communication, counseling, coordination with specialists History of Present Illness History of Present Illness Patient 75-year-old male with past medical history ESRD on HD, DM2, anemia, HTN, HLD, who presents as a direct admit from wound care clinic due to concerns for left heel osteomyelitis. At the time of my evaluation patient has no specific complaints, denies any pain. States he has been receiving wound care at [facility], but today is his first visit to outpatient wound care. He denies any fever, nausea, vomiting, or drainage noted from bilateral heels. He receives hemodialysis Sunday/Sunday/Sunday. Will admit patient for further medical management 05/06/2021: Afebrile. Seen by vascular surgery and recommended attempting wound VAC therapy, IV antibiotics. Also recommend evaluation for hyperbaric oxygen treatments. Strict offloading of his heels. Continue HD, per nephrology. Afebrile. Tolerating wound vac well. Would like to get up out of bed onto his wheelchair. Has a slight non-productive cough. No CP or SOB. Vitals/I&O Vitals/I&O: Vital Signs Date Time Temp Pulse Resp B/P (MAP) Pulse Ox O2 Delivery O2 Flow Rate FiO2 05/07/21 14:07 77 136/62 05/07/21 11:00 97.6 92 Room Air 97.6 05/06/21 23:00 20 I & O 05/06/21 05/06/21 05/07/21 15:00 23:00 07:00 Intake Total 600 ml 400 ml Balance 600 ml 400 ml Physical Exam Physical Exam: GENERAL: Alert, oriented x 3, cooperative male lying in bed comfortably, in no acute distress. VITAL SIGNS: Reviewed. HEENT: Normocephalic, atraumatic. Pupils are equal, reactive. Extraocular movements are intact. No thrush. Oral mucosa is moist. NECK: Supple, no JVD. LUNGS: Clear bilaterally. No wheezing. HEART: S1, S2. No murmurs. CHEST WALL: Right HD catheter site irritation and redness around the HD catheter. ABDOMEN: Soft, nontender, nondistended, obese. Bowel sounds present. EXTREMITIES: Large ulcer at the left heel with mild surrounding erythema. No bone palpated, though there is a thin sliver of tissue just close to the bone, chronic trophic changes to bilateral lower extremities. DERMATOLOGIC: Warm, dry, no generalized rash. NEUROLOGIC: Alert and oriented x 3, grossly nonfocal. PSYCHIATRIC: Calm and cooperative. Right HDC looks slightly irritated, but no purulence, no tenderness. General: Alert, Cooperative, No acute distress Heart: Regular rate Lungs: Clear, Other Extremities: Other (Bilateral lower extremities with dressings clean, dry, intact) Skin: Other (Dry skin with chronic trophic changes) Labs Labs: Laboratory Tests Test 05/06/21 17:52 05/06/21 19:38 05/07/21 08:08 05/07/21 09:22 Glucose (Fingerstick) 71 mg/dL (70-99) 137 mg/dL (70-99) 83 mg/dL (70-99) White Blood Count 6.0 x10^3/uL (4.0-11.0) Red Blood Count 3.19 x10^6/uL (4.30-5.70) Hemoglobin 9.9 g/dL (13.0-17.5) Hematocrit 30.7 % (39.0-53.0) Mean Corpuscular Volume 96 fL (79-100) Mean Corpuscular Hemoglobin 31 pg (25-35) Mean Corpuscular Hemoglobin Concent 32 g/dL (31-37) Red Cell Distribution Width 19.6 % (11.5-14.5) Platelet Count 164 x10^3/uL (140-400) Neutrophils (%) (Auto) 62 % (31-73) Lymphocytes (%) (Auto) 18 % (24-48) Monocytes (%) (Auto) 13 % (0-9) Eosinophils (%) (Auto) 5 % (0-3) Basophils (%) (Auto) 2 % (0-3) Neutrophils # (Auto) 3.8 x10^3/uL (1.8-7.7) Lymphocytes # (Auto) 1.1 x10^3/uL (1.0-4.8) Monocytes # (Auto) 0.8 x10^3/uL (0.0-1.1) Eosinophils # (Auto) 0.3 x10^3/uL (0.0-0.7) Basophils # (Auto) 0.1 x10^3/uL (0.0-0.2) Sodium Level 137 mmol/L (136-145) Potassium Level 4.3 mmol/L (3.5-5.1) Chloride Level 100 mmol/L (98-107) Carbon Dioxide Level 28 mmol/L (21-32) Anion Gap 9 (6-14) Blood Urea Nitrogen 32 mg/dL (8-26) Creatinine 3.2 mg/dL (0.7-1.3) Estimated GFR (Cockcroft-Gault) 19.1 Glucose Level 108 mg/dL (70-99) Calcium Level 8.7 mg/dL (8.5-10.1) Test 05/07/21 10:57 Glucose (Fingerstick) 105 mg/dL (70-99) Comment Review of Relevant I have reviewed the following items mara (where applicable) has been applied. Medications: Current Medications Medications (Trade) Dose Ordered Sig/Redd Route PRN Reason Start Time Stop Time Status Last Admin Dose Admin Vancomycin HCl 2 gm/Sodium Chloride 500 ml @ 250 mls/hr 1X ONCE IV 05/07/21 12:00 05/07/21 13:59 DC 05/07/21 12:26 Cefepime HCl (Maxipime) 2 gm MoWe@1600 IVP 05/07/21 12:00 05/07/21 12:26 Justifications for Admission General Conditions Other justification for admit: Possible osteomyelitis, diabetic foot ulcer, ESRD on HD Other Justification CHF exacerbation JAKE PATTON MD May 07, 2021 14:46
[2021-05-07 15:00] VITALS: BP 122/42
[2021-05-07 19:00] VITALS: BP 117/32
[2021-05-07] MEDS: LACTOBACILLUS RHAMNOSUS GG 1 CAPSULE. PO SCH (21:41)
[2021-05-07] MEDS: ATORVASTATIN CALCIUM 40 MG TABLET. PO SCH (21:42)
[2021-05-07] MEDS: INSULIN GLARGINE SYRINGE. SQ SCH (21:43)
[2021-05-07 23:00] VITALS: BP 130/44
[2021-05-08 03:00] VITALS: BP 114/45
[2021-05-08] MEDS: HEPARIN for SUB-Q USE 5,000 UNIT/ML VIAL. SQ SCH ×3 (06:21→21:39)
[2021-05-08 07:00] VITALS: BP 125/27
[2021-05-08 07:03] LABS: BASO # 0.1 x10^3/uL (0.0-0.2); BASO % 2 % (0-3); EOS # 0.4 x10^3/uL (0.0-0.7); EOS % 7 % (0-3); HEMATOCRIT 29.8 % (39.0-53.0); HEMOGLOBIN 9.8 g/dL (13.0-17.5); LYMPH # 1.2 x10^3/uL (1.0-4.8); LYMPH % 20 % (24-48); MEAN CORPUSCULAR HEMOGLOBIN 31 pg (25-35); MEAN CORPUSCULAR HGB CONC 33 g/dL (31-37); MEAN CORPUSCULAR VOLUME 96 fL (79-100); MONO # 0.8 x10^3/uL (0.0-1.1); MONO % 13 % (0-9); NEUT # 3.6 x10^3/uL (1.8-7.7); NEUT % 58 % (31-73); PLATELET COUNT 165 x10^3/uL (140-400); RED BLOOD COUNT 3.12 x10^6/uL (4.30-5.70); RED CELL DISTRIBUTION WIDTH 19.4 % (11.5-14.5); WHITE BLOOD COUNT 6.1 x10^3/uL (4.0-11.0)
[2021-05-08 07:23] LABS: CALCIUM 8.5 mg/dL (8.5-10.1); GFR 14.8; POTASSIUM 4.7 mmol/L (3.5-5.1)
[2021-05-08] MEDS: INSULIN LISPRO 300 UNITS/3 ML VIAL. SQ SCH ×3 (08:00→16:36)
[2021-05-08] MEDS: METOPROLOL SUCC 24HR ER 25 MG TAB.ER.24H. PO SCH (09:00)
--- NOTE | 2021-05-08 09:30 | PDOC ---
Infectious Disease Note Subjective: Subjective Patient without complaints Vital Signs: Vital Signs Vital Signs Date Time Temp Pulse Resp B/P (MAP) Pulse Ox O2 Delivery O2 Flow Rate FiO2 05/08/21 03:00 98.1 74 16 114/45 (68) 92 Room Air 98.1 Physical Exam: PHYSICAL EXAM GENERAL: Alert, oriented x 3, cooperative male lying in bed comfortably, in no acute distress. VITAL SIGNS: Reviewed. HEENT: Normocephalic, atraumatic. Pupils are equal, reactive. Extraocular movements are intact. No thrush. Oral mucosa is moist. NECK: Supple, no JVD. LUNGS: Clear bilaterally. No wheezing. HEART: S1, S2. No murmurs. CHEST WALL: Right HD catheter site irritation and redness around the HD catheter. ABDOMEN: Soft, nontender, nondistended, obese. Bowel sounds present. EXTREMITIES: Large ulcer at the left heel with mild surrounding erythema. No bone palpated, though there is a thin sliver of tissue just close to the bone, chronic trophic changes to bilateral lower extremities. DERMATOLOGIC: Warm, dry, no generalized rash. NEUROLOGIC: Alert and oriented x 3, grossly nonfocal. PSYCHIATRIC: Calm and cooperative. Right HDC looks slightly irritated, but no purulence, no tenderness. Medications: Inpatient Meds: Medications reviewed. Labs: Lab Laboratory Tests Test 05/07/21 10:57 05/07/21 16:40 05/07/21 20:04 05/08/21 06:35 Glucose (Fingerstick) 105 mg/dL (70-99) 133 mg/dL (70-99) 165 mg/dL (70-99) White Blood Count 6.1 x10^3/uL (4.0-11.0) Red Blood Count 3.12 x10^6/uL (4.30-5.70) Hemoglobin 9.8 g/dL (13.0-17.5) Hematocrit 29.8 % (39.0-53.0) Mean Corpuscular Volume 96 fL (79-100) Mean Corpuscular Hemoglobin 31 pg (25-35) Mean Corpuscular Hemoglobin Concent 33 g/dL (31-37) Red Cell Distribution Width 19.4 % (11.5-14.5) Platelet Count 165 x10^3/uL (140-400) Neutrophils (%) (Auto) 58 % (31-73) Lymphocytes (%) (Auto) 20 % (24-48) Monocytes (%) (Auto) 13 % (0-9) Eosinophils (%) (Auto) 7 % (0-3) Basophils (%) (Auto) 2 % (0-3) Neutrophils # (Auto) 3.6 x10^3/uL (1.8-7.7) Lymphocytes # (Auto) 1.2 x10^3/uL (1.0-4.8) Monocytes # (Auto) 0.8 x10^3/uL (0.0-1.1) Eosinophils # (Auto) 0.4 x10^3/uL (0.0-0.7) Basophils # (Auto) 0.1 x10^3/uL (0.0-0.2) Sodium Level 136 mmol/L (136-145) Potassium Level 4.7 mmol/L (3.5-5.1) Chloride Level 101 mmol/L (98-107) Carbon Dioxide Level 28 mmol/L (21-32) Anion Gap 7 (6-14) Blood Urea Nitrogen 39 mg/dL (8-26) Creatinine 4.0 mg/dL (0.7-1.3) Estimated GFR (Cockcroft-Gault) 14.8 Glucose Level 87 mg/dL (70-99) Calcium Level 8.5 mg/dL (8.5-10.1) Test 05/08/21 08:16 Glucose (Fingerstick) 78 mg/dL (70-99) Objective: Assessment: 1. Left heel calcaneal osteomyelitis. 2. Chronic nonhealing left heel ulcer. 3. History of chronic right heel ulcer, healing. 4. End-stage renal disease, on hemodialysis, recent tunneled catheter changed. 5. Diabetes mellitus. 6. Peripheral arterial disease. 7. Obesity. 8. Congestive heart failure. 9. SULFA ALLERGY. 10. Hepatitis B surface antigen positive, on entecavir. 11. Chronic anemia. 12. Morbid obesity. Plan: Plan of Care We will give trial with IV antibiotics Like to avoid PICC line with patient with end-stage renal disease Will start empiric Vanco and cefepime postdialysis on dialysis days, dosing discussed with pharmacy Will need total 6 weeks of treatment Vascular input noted for wound VAC and IV antibiotic trial Do not place PICC line. Monitor labs and cultures. Continue supportive care. Offload. Wound care as per wound team. If wound worsens he will need surgical intervention, patient verbalizes understanding AMADOR ROSA MD May 08, 2021 09:30
[2021-05-08] MEDS: LACTOBACILLUS RHAMNOSUS GG 1 CAPSULE. PO SCH ×2 (10:11→21:37)
[2021-05-08] MEDS: SERTRALINE 50 MG TABLET. PO SCH (10:12)
[2021-05-08] MEDS: hydrALAZINE 25 MG TABLET PO SCH ×3 (10:12→21:38)
[2021-05-08] MEDS: IRON POLYSACCHARIDE COMPLEX 150 MG CAPSULE PO SCH (10:12)
[2021-05-08] MEDS: NYSTATIN TOPICAL POWDER 15GM BOTTLE. TP SCH ×2 (10:15→21:00)
[2021-05-08] MEDS: ASPIRIN ENTERIC COATED 81 MG TABLET.DR. PO SCH (10:20)
[2021-05-08 11:00] VITALS: BP 143/36
--- NOTE | 2021-05-08 11:46 | PDOC ---
[employer] PROGRESS NOTE Date of Service DOS: DATE: 05/08/21 TIME: 11:39 Chief Complaint Chief Complaint Ulcers to bilateral heels, left > right, concerning for possible osteomyelitis to left heel Diastolic congestive heart failure ESRD on HD DM2 Left heel calcaneal osteomyelitis. Chronic nonhealing left heel ulcer. Peripheral arterial disease. Chronic diastolic Congestive heart failure. Hepatitis B surface antigen positive - on entecavir. Chronic anemia related to chronic renal insufficiency Morbid obesity - counseled on lifestyle modification Plan: We will admit patient with ID consult Patient is not septic appearing at this time; will obtain blood cultures and defer antibiotic recommendations to ID MRI on 03/16/2021 that showed T1 marrow replacement of the posterior calcaneus, subjacent to the soft tissue ulceration, consistent with osteomyelitis. Consultation placed to nephrology Basal/prandial insulin Resume home medications FEN - Renal diet PPX - Heparin DNR Dispo - inpatient for above Patient names his sister (Phuong Mathis) as surrogate decision-maker 33 minutes spent on chart review, patient communication, counseling, coordination with specialists History of Present Illness History of Present Illness Patient 75-year-old male with past medical history ESRD on HD, DM2, anemia, HTN, HLD, who presents as a direct admit from wound care clinic due to concerns for left heel osteomyelitis. At the time of my evaluation patient has no specific complaints, denies any pain. States he has been receiving wound care at [facility], but today is his first visit to outpatient wound care. He denies any fever, nausea, vomiting, or drainage noted from bilateral heels. He receives hemodialysis Sunday/Sunday/Sunday. Will admit patient for further medical management 05/06/2021: Afebrile. Seen by vascular surgery and recommended attempting wound VAC therapy, IV antibiotics. Also recommend evaluation for hyperbaric oxygen treatments. Strict offloading of his heels. Continue HD, per nephrology. 05/07: Afebrile. Tolerating wound vac well. Would like to get up out of bed onto his wheelchair. Has a slight non-productive cough. No CP or SOB. Afebrile. Wound VAC with good seal. Clearing his throat less today. No chest pain or shortness of breath. His normal HD is 9 AM Sunday he is asking for antibiotic infusions with dialysis after discharge. Vitals/I&O Vitals/I&O: Vital Signs Date Time Temp Pulse Resp B/P (MAP) Pulse Ox O2 Delivery O2 Flow Rate FiO2 05/08/21 10:12 80 125/27 05/08/21 07:00 98.1 17 95 Room Air 98.1 I & O 05/07/21 05/07/21 05/08/21 15:00 23:00 07:00 Intake Total 540 ml 360 ml 120 ml Output Total 0 ml 100 ml Balance 540 ml 260 ml 120 ml Physical Exam Physical Exam: GENERAL: Alert, oriented x 3, cooperative male lying in bed comfortably, in no acute distress. VITAL SIGNS: Reviewed. HEENT: Normocephalic, atraumatic. Pupils are equal, reactive. Extraocular movements are intact. No thrush. Oral mucosa is moist. NECK: Supple, no JVD. LUNGS: Clear bilaterally. No wheezing. HEART: S1, S2. No murmurs. CHEST WALL: Right HD catheter site irritation and redness around the HD catheter. ABDOMEN: Soft, nontender, nondistended, obese. Bowel sounds present. EXTREMITIES: Large ulcer at the left heel with mild surrounding erythema. No bone palpated, though there is a thin sliver of tissue just close to the bone, chronic trophic changes to bilateral lower extremities. DERMATOLOGIC: Warm, dry, no generalized rash. NEUROLOGIC: Alert and oriented x 3, grossly nonfocal. PSYCHIATRIC: Calm and cooperative. Right HDC looks slightly irritated, but no purulence, no tenderness. General: Alert, Cooperative, No acute distress Heart: Regular rate Lungs: Clear, Other Extremities: Other (Bilateral lower extremities with dressings clean, dry, intact) Skin: Other (Dry skin with chronic trophic changes) Labs Labs: Laboratory Tests Test 05/07/21 16:40 05/07/21 20:04 05/08/21 06:35 05/08/21 08:16 Glucose (Fingerstick) 133 mg/dL (70-99) 165 mg/dL (70-99) 78 mg/dL (70-99) White Blood Count 6.1 x10^3/uL (4.0-11.0) Red Blood Count 3.12 x10^6/uL (4.30-5.70) Hemoglobin 9.8 g/dL (13.0-17.5) Hematocrit 29.8 % (39.0-53.0) Mean Corpuscular Volume 96 fL (79-100) Mean Corpuscular Hemoglobin 31 pg (25-35) Mean Corpuscular Hemoglobin Concent 33 g/dL (31-37) Red Cell Distribution Width 19.4 % (11.5-14.5) Platelet Count 165 x10^3/uL (140-400) Neutrophils (%) (Auto) 58 % (31-73) Lymphocytes (%) (Auto) 20 % (24-48) Monocytes (%) (Auto) 13 % (0-9) Eosinophils (%) (Auto) 7 % (0-3) Basophils (%) (Auto) 2 % (0-3) Neutrophils # (Auto) 3.6 x10^3/uL (1.8-7.7) Lymphocytes # (Auto) 1.2 x10^3/uL (1.0-4.8) Monocytes # (Auto) 0.8 x10^3/uL (0.0-1.1) Eosinophils # (Auto) 0.4 x10^3/uL (0.0-0.7) Basophils # (Auto) 0.1 x10^3/uL (0.0-0.2) Sodium Level 136 mmol/L (136-145) Potassium Level 4.7 mmol/L (3.5-5.1) Chloride Level 101 mmol/L (98-107) Carbon Dioxide Level 28 mmol/L (21-32) Anion Gap 7 (6-14) Blood Urea Nitrogen 39 mg/dL (8-26) Creatinine 4.0 mg/dL (0.7-1.3) Estimated GFR (Cockcroft-Gault) 14.8 Glucose Level 87 mg/dL (70-99) Calcium Level 8.5 mg/dL (8.5-10.1) Comment Review of Relevant I have reviewed the following items mara (where applicable) has been applied. Medications: Current Medications Medications (Trade) Dose Ordered Sig/Redd Route PRN Reason Start Time Stop Time Status Last Admin Dose Admin Vancomycin HCl 2 gm/Sodium Chloride 500 ml @ 250 mls/hr 1X ONCE IV 05/07/21 12:00 05/07/21 13:59 DC 05/07/21 12:26 Cefepime HCl (Maxipime) 2 gm MoWe@1600 IVP 05/07/21 12:00 05/07/21 12:26 Lactobacillus Rhamnosus (Culturelle) 1 cap BID PO 05/07/21 21:00 05/08/21 10:11 Justifications for Admission General Conditions Other justification for admit: Possible osteomyelitis, diabetic foot ulcer, ESRD on HD Other Justification CHF exacerbation JAKE PATTON MD May 08, 2021 11:46
[2021-05-08 15:00] VITALS: BP 134/55
--- NOTE | 2021-05-08 16:16 | PDOC ---
DATE OF SERVICE DATE: 05/08/21 TIME: 16:15 SUBJECTIVE ROS No complaints, states feeling well. Denies SOB OBJECTIVE Vital Signs Vital Signs Date Time Temp Pulse Resp B/P (MAP) Pulse Ox O2 Delivery O2 Flow Rate FiO2 05/08/21 13:49 75 143/36 05/08/21 11:00 97.3 17 96 Room Air 97.3 I & 0 Intake and Output 05/08/21 07:00 Intake Total 1020 ml Output Total 100 ml Balance 920 ml Intake Oral 1020 ml Output Urine Total 100 ml # Bowel Movements 2 PHYSICAL EXAM Physical Exam GENERAL: no acute distress. HEENT: Normocephalic, atraumatic. Oral mucosa is moist. NECK: Supple LUNGS: Clear bilaterally. Non labored HEART: S1, S2. No murmurs. ABDOMEN: Soft, nontender, nondistended, obese. Bowel sounds present. EXTREMITIES: (Per ID) Large ulcer at the left heel with mild surrounding erythema. Rt Arm AVF - not in use currently, has Rt HDC DERM: Warm, dry no rash. NEURO: Alert and oriented x 3, grossly nonfocal. PSYCHIATRIC: Calm and cooperative. DIAGNOSIS/ASSESSMENT Assessment & Plan ESRD on HD MWF at [facility] ,no indication for HD today ACcess recent tunneled hemodialysis catheter placement on 04/15/2021. Has AVF in Rt ARm- not mature . 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 ID Monit oring off antibiotics ; Vascular consulted . Hep Bs Ag Positive ; Hep B Core Ab Reactive .He was prescribed Entecavir 0.5 mg py Hepatology at Hx of Acute blood loss anemia secondary to GIB. s/p cauterization of bleeding antral ulcer by GI team and [facility] in November 2020 Hx of Renal calculus - RK- Possible intrarenal stones. LK Possible intrarenal stones to include a 13 mm focus of increased echogenicity at the upper pole.No e/o obstruction reported . Pt denies any past history chronic diastolic CHF; Echo 07/25 with preserved LV systolic function CAD; s/p PCI/RHEA to LAD in 2018. clinically stable, CP free. COMMENT/RELEVANT DATA Meds Current Medications Medications (Trade) Dose Ordered Sig/Redd Start Time Stop Time Status Last Admin Dose Admin Acetaminophen (Tylenol) 650 mg PRN Q6HRS PRN 05/05/21 17:00 Acetaminophen/ Hydrocodone Bitart (Lortab 5/325) 1 tab PRN Q4HRS PRN 05/05/21 17:00 Al Hydroxide/Mg Hydroxide (Mylanta Plus Xs) 30 ml PRN Q3HRS PRN 05/05/21 17:00 Albumin Human 200 ml @ 200 mls/hr 1X PRN PRN 05/06/21 14:15 05/06/21 20:14 DC Aspirin (Ecotrin) 81 mg DAILYWBKFT 05/06/21 08:00 05/08/21 10:20 81 MG Atorvastatin Calcium (Lipitor) 40 mg HS 05/05/21 21:00 05/07/21 21:42 40 MG Buspirone HCl (Buspar) 10 mg PRN DAILY PRN 05/05/21 16:45 Calcium Carbonate/ Glycine (Tums) 500 mg PRN Q3HRS PRN 05/05/21 17:00 Cefepime HCl (Maxipime) 3 gm QFR@1600 05/13/21 16:00 Dextrose (Dextrose 50%-Water Syringe) 12.5 gm PRN Q15MIN PRN 05/05/21 17:00 Heparin Sodium (Porcine) (Heparin Sodium) 5,000 unit Q8HRS 05/05/21 22:00 05/08/21 13:51 5,000 UNIT Hydralazine HCl (Apresoline) 25 mg TID 05/05/21 21:00 05/08/21 13:49 25 MG Info (PHARMACY MONITORING -- do not chart) 1 each PRN DAILY PRN 05/06/21 14:15 Insulin Glargine (Lantus Syringe) 15 unit QHS 05/05/21 21:00 05/07/21 21:43 15 UNIT Insulin Human Lispro (HumaLOG VIAL for OP,RR ONLY) TIDWMEALS 05/05/21 17:00 Cancel Insulin Human Lispro (HumaLOG) 0-9 UNITS TIDWMEALS 05/05/21 17:00 Lactobacillus Rhamnosus (Culturelle) 1 cap BID 05/07/21 21:00 05/08/21 10:11 1 CAP Magnesium Hydroxide (Milk Of Magnesia) 2,400 mg PRN Q12HR PRN 05/05/21 17:00 Metoprolol Succinate (Toprol Xl) 25 mg DAILY 05/06/21 09:00 05/07/21 09:16 25 MG Non-Formulary Medication (Entecavir (Baraclude)) 0.5 mg DAILY06 05/06/21 06:00 05/07/21 16:18 DC Nystatin (Nystop) 1 luna BID 05/05/21 21:00 05/08/21 10:15 1 LUNA Ondansetron HCl (Zofran) 4 mg PRN Q6HRS PRN 05/05/21 17:00 Polysaccharide Iron Complex (Niferex 150) 150 mg DAILY 05/06/21 09:00 05/08/21 10:12 150 MG Sennosides (Senna) 8.6 mg PRN BID PRN 05/06/21 15:00 Sertraline HCl (Zoloft) 50 mg DAILY 05/06/21 09:00 05/08/21 10:12 50 MG Sodium Chloride 1,000 ml @ 400 mls/hr Q2H30M PRN 05/06/21 14:15 05/07/21 02:14 DC Sodium Chloride (Normal Saline Flush) 10 ml 1X PRN PRN 05/06/21 14:15 05/07/21 14:14 DC Vancomycin HCl (Vanco Per Pharmacy) 1 each PRN DAILY PRN 05/07/21 10:15 Vancomycin HCl (Vancomycin Random Level) 1 each 1X ONCE 05/09/21 05:00 05/09/21 05:01 Vancomycin HCl 2 gm/Sodium Chloride 500 ml @ 250 mls/hr 1X ONCE 05/07/21 12:00 05/07/21 13:59 DC 05/07/21 12:26 250 MLS/HR Lab Laboratory Tests Test 05/07/21 16:40 05/07/21 20:04 05/08/21 06:35 05/08/21 08:16 Glucose (Fingerstick) 133 mg/dL (70-99) 165 mg/dL (70-99) 78 mg/dL (70-99) White Blood Count 6.1 x10^3/uL (4.0-11.0) Red Blood Count 3.12 x10^6/uL (4.30-5.70) Hemoglobin 9.8 g/dL (13.0-17.5) Hematocrit 29.8 % (39.0-53.0) Mean Corpuscular Volume 96 fL (79-100) Mean Corpuscular Hemoglobin 31 pg (25-35) Mean Corpuscular Hemoglobin Concent 33 g/dL (31-37) Red Cell Distribution Width 19.4 % (11.5-14.5) Platelet Count 165 x10^3/uL (140-400) Neutrophils (%) (Auto) 58 % (31-73) Lymphocytes (%) (Auto) 20 % (24-48) Monocytes (%) (Auto) 13 % (0-9) Eosinophils (%) (Auto) 7 % (0-3) Basophils (%) (Auto) 2 % (0-3) Neutrophils # (Auto) 3.6 x10^3/uL (1.8-7.7) Lymphocytes # (Auto) 1.2 x10^3/uL (1.0-4.8) Monocytes # (Auto) 0.8 x10^3/uL (0.0-1.1) Eosinophils # (Auto) 0.4 x10^3/uL (0.0-0.7) Basophils # (Auto) 0.1 x10^3/uL (0.0-0.2) Sodium Level 136 mmol/L (136-145) Potassium Level 4.7 mmol/L (3.5-5.1) Chloride Level 101 mmol/L (98-107) Carbon Dioxide Level 28 mmol/L (21-32) Anion Gap 7 (6-14) Blood Urea Nitrogen 39 mg/dL (8-26) Creatinine 4.0 mg/dL (0.7-1.3) Estimated GFR (Cockcroft-Gault) 14.8 Glucose Level 87 mg/dL (70-99) Calcium Level 8.5 mg/dL (8.5-10.1) Test 05/08/21 11:44 Glucose (Fingerstick) 97 mg/dL (70-99) Results All relevant outside records, renal labs, imaging studies, telemetry/EKG's were reviewed. Justicifation of Admission Dx: Justifications for Admission: Justification of Admission Dx: Yes BEATRIZ IBARRA MD May 08, 2021 16:16
[2021-05-08 19:00] VITALS: BP 127/42
[2021-05-08] MEDS: ATORVASTATIN CALCIUM 40 MG TABLET. PO SCH (21:37)
[2021-05-08] MEDS: INSULIN GLARGINE SYRINGE. SQ SCH (21:39)
[2021-05-08 23:00] VITALS: BP 117/40
[2021-05-09 02:27] VITALS: BP 134/40
[2021-05-09] MEDS ORDERED: VANCOMYCIN RANDOM LEVEL. MC ONE (05:00)
[2021-05-09 05:46] LABS: BASO # 0.1 x10^3/uL (0.0-0.2); BASO % 1 % (0-3); EOS # 0.4 x10^3/uL (0.0-0.7); EOS % 5 % (0-3); HEMATOCRIT 30.6 % (39.0-53.0); HEMOGLOBIN 10.1 g/dL (13.0-17.5); LYMPH # 1.4 x10^3/uL (1.0-4.8); LYMPH % 19 % (24-48); MEAN CORPUSCULAR HEMOGLOBIN 31 pg (25-35); MEAN CORPUSCULAR HGB CONC 33 g/dL (31-37); MEAN CORPUSCULAR VOLUME 95 fL (79-100); MONO # 0.9 x10^3/uL (0.0-1.1); MONO % 12 % (0-9); NEUT # 4.7 x10^3/uL (1.8-7.7); NEUT % 63 % (31-73); PLATELET COUNT 175 x10^3/uL (140-400); RED BLOOD COUNT 3.22 x10^6/uL (4.30-5.70); RED CELL DISTRIBUTION WIDTH 19.2 % (11.5-14.5); WHITE BLOOD COUNT 7.5 x10^3/uL (4.0-11.0)
[2021-05-09] MEDS: HEPARIN for SUB-Q USE 5,000 UNIT/ML VIAL. SQ SCH ×3 (05:56→20:31)
[2021-05-09 06:10] LABS: CALCIUM 8.7 mg/dL (8.5-10.1); CREATININE 4.5 mg/dL (0.7-1.3); GFR 12.9; POTASSIUM 5.1 mmol/L (3.5-5.1)
[2021-05-09] MEDS: VANCOMYCIN PER PHARMACY MC PRN ×2 (06:33→14:17)
--- NOTE | 2021-05-09 06:33 | NUR ---
Pharmacy Vancomycin Dosing Note S:Consulted to monitor and dose vancomycin started 05/07/21. O:SAMEER HOLDEN is a 75 year old M with Osteomyelitis . Height: 5 feet, 10 inches Weight: 124.3 kg Allen Body Weight: 66.10 Adjusted Body Weight: 89.38 Dosing Weight: Other Antibiotics: CEFEPIME LABS: Last BUN: 49 Last Creatinine: 4.5 Creatinine Clearance: HD MWF mL/min Last WBC: 6.1 Last Procalcitonin: Tmax (past 24 hours): 98.1 Microbiology: 05/09 BCX NGTD I/O: 1280/225, 1 VOID Drug Levels: Last Random level: 21.3 on 05/09/21 at 0525 Last dose given 05/07/21 at 1230 Vancomycin Dosing: Loading Dose: 2000 mg x1 Dosing Weight: Target Trough: 15-20 A: Based on: HD STATUS, VANC LEVEL THIS AM, P: 1. INITIATE Vancomycin 500 mg IV MWF AFTER HD 2. Follow up level NEEDED 3. Pharmacy will continue to monitor, follow and adjust therapy as needed. EBONIE JUAREZ RPH, 05/09/21 0633
[2021-05-09 07:00] VITALS: BP 123/69
[2021-05-09] MEDS: INSULIN LISPRO 300 UNITS/3 ML VIAL. SQ SCH ×3 (08:00→17:00)
[2021-05-09] MEDS ORDERED: DIALYSIS PATIENT. MC PRN (08:30)
[2021-05-09] MEDS ORDERED: IV NORMAL SALINE 1000ML BAG 1,000 ML IV PRN ×2 (08:30)
--- NOTE | 2021-05-09 08:34 | PDOC ---
Infectious Disease Note Subjective: Subjective Patient without complaints Vital Signs: Vital Signs Vital Signs Date Time Temp Pulse Resp B/P (MAP) Pulse Ox O2 Delivery O2 Flow Rate FiO2 05/09/21 02:27 97.9 57 18 134/40 (71) 92 Room Air 97.9 Physical Exam: PHYSICAL EXAM GENERAL: Alert, oriented x 3, cooperative male lying in bed comfortably, in no acute distress. VITAL SIGNS: Reviewed. HEENT: Normocephalic, atraumatic. Pupils are equal, reactive. Extraocular movements are intact. No thrush. Oral mucosa is moist. NECK: Supple, no JVD. LUNGS: Clear bilaterally. No wheezing. HEART: S1, S2. No murmurs. CHEST WALL: Right HD catheter site irritation and redness around the HD catheter. ABDOMEN: Soft, nontender, nondistended, obese. Bowel sounds present. EXTREMITIES: Large ulcer at the left heel with mild surrounding erythema. No bone palpated, though there is a thin sliver of tissue just close to the bone, chronic trophic changes to bilateral lower extremities. DERMATOLOGIC: Warm, dry, no generalized rash. NEUROLOGIC: Alert and oriented x 3, grossly nonfocal. PSYCHIATRIC: Calm and cooperative. Right HDC looks slightly irritated, but no purulence, no tenderness. Medications: Inpatient Meds: Medications reviewed. Labs: Lab Laboratory Tests Test 05/08/21 11:44 05/08/21 16:31 05/08/21 20:52 05/09/21 05:25 Glucose (Fingerstick) 97 mg/dL (70-99) 143 mg/dL (70-99) 133 mg/dL (70-99) White Blood Count 7.5 x10^3/uL (4.0-11.0) Red Blood Count 3.22 x10^6/uL (4.30-5.70) Hemoglobin 10.1 g/dL (13.0-17.5) Hematocrit 30.6 % (39.0-53.0) Mean Corpuscular Volume 95 fL (79-100) Mean Corpuscular Hemoglobin 31 pg (25-35) Mean Corpuscular Hemoglobin Concent 33 g/dL (31-37) Red Cell Distribution Width 19.2 % (11.5-14.5) Platelet Count 175 x10^3/uL (140-400) Neutrophils (%) (Auto) 63 % (31-73) Lymphocytes (%) (Auto) 19 % (24-48) Monocytes (%) (Auto) 12 % (0-9) Eosinophils (%) (Auto) 5 % (0-3) Basophils (%) (Auto) 1 % (0-3) Neutrophils # (Auto) 4.7 x10^3/uL (1.8-7.7) Lymphocytes # (Auto) 1.4 x10^3/uL (1.0-4.8) Monocytes # (Auto) 0.9 x10^3/uL (0.0-1.1) Eosinophils # (Auto) 0.4 x10^3/uL (0.0-0.7) Basophils # (Auto) 0.1 x10^3/uL (0.0-0.2) Sodium Level 140 mmol/L (136-145) Potassium Level 5.1 mmol/L (3.5-5.1) Chloride Level 103 mmol/L (98-107) Carbon Dioxide Level 27 mmol/L (21-32) Anion Gap 10 (6-14) Blood Urea Nitrogen 49 mg/dL (8-26) Creatinine 4.5 mg/dL (0.7-1.3) Estimated GFR (Cockcroft-Gault) 12.9 Glucose Level 89 mg/dL (70-99) Calcium Level 8.7 mg/dL (8.5-10.1) Random Vancomycin Level 21.3 mcg/mL Test 05/09/21 07:21 Glucose (Fingerstick) 78 mg/dL (70-99) Objective: Assessment: 1. Left heel calcaneal osteomyelitis. 2. Chronic nonhealing left heel ulcer. 3. History of chronic right heel ulcer, healing. 4. End-stage renal disease, on hemodialysis, recent tunneled catheter changed. 5. Diabetes mellitus. 6. Peripheral arterial disease. 7. Obesity. 8. Congestive heart failure. 9. SULFA ALLERGY. 10. Hepatitis B surface antigen positive, on entecavir. 11. Chronic anemia. 12. Morbid obesity. Plan: Plan of Care We will give trial with IV antibiotics Like to avoid PICC line with patient with end-stage renal disease Will start empiric Vanco and cefepime postdialysis on dialysis days, dosing discussed with pharmacy Dose adjustments per pharmacy Will need total 6 weeks of treatment Vascular input noted for wound VAC and IV antibiotic trial If wound worsens he will need surgical intervention, patient verbalizes understanding Do not place PICC line. Monitor labs and cultures. Continue supportive care. Offload. Wound care as per wound team. Patient to follow-up in ID clinic MAY 31 AT 2;00 PM [phone] AMADOR ROSA MD May 09, 2021 08:34
[2021-05-09] MEDS: hydrALAZINE 25 MG TABLET PO SCH ×3 (09:00→20:31)
[2021-05-09] MEDS: NYSTATIN TOPICAL POWDER 15GM BOTTLE. TP SCH ×2 (09:00→20:36)
[2021-05-09] MEDS: SERTRALINE 50 MG TABLET. PO SCH (10:15)
[2021-05-09] MEDS: LACTOBACILLUS RHAMNOSUS GG 1 CAPSULE. PO SCH ×2 (10:15→20:31)
[2021-05-09] MEDS: METOPROLOL SUCC 24HR ER 25 MG TAB.ER.24H. PO SCH (10:15)
[2021-05-09] MEDS: ASPIRIN ENTERIC COATED 81 MG TABLET.DR. PO SCH (10:15)
[2021-05-09] MEDS: IRON POLYSACCHARIDE COMPLEX 150 MG CAPSULE PO SCH (10:15)
[2021-05-09 11:00] VITALS: BP 141/45
--- NOTE | 2021-05-09 12:06 | PDOC3 ---
[facility]-Discharge Summary Date of Admission: Date of Admission: May 05, 2021 Date of Discharge: Date of Discharge: May 09, 2021 Admission Diagnosis: Problems: (1) Diabetic foot ulcer (2) ESRD on hemodialysis Consults: Consults: Infectious disease, nephrology Hospital Course: Hospital Course: Chief Complaint Ulcers to bilateral heels, left > right, concerning for possible osteomyelitis to left heel Diastolic congestive heart failure ESRD on HD DM2 Left heel calcaneal osteomyelitis. Chronic nonhealing left heel ulcer. Peripheral arterial disease. Chronic diastolic Congestive heart failure. Hepatitis B surface antigen positive - on entecavir. Chronic anemia related to chronic renal insufficiency Morbid obesity - counseled on lifestyle modification Plan: We will admit patient with ID consult Patient is not septic appearing at this time; will obtain blood cultures and defer antibiotic recommendations to ID MRI on 03/16/2021 that showed T1 marrow replacement of the posterior calcaneus, subjacent to the soft tissue ulceration, consistent with osteomyelitis. Consultation placed to nephrology Basal/prandial insulin Resume home medications FEN - Renal diet PPX - Heparin DNR Dispo - inpatient for above Patient names his sister (Phuong Mathis) as surrogate decision-maker 33 minutes spent on chart review, patient communication, counseling, coordination with specialists History of Present Illness History of Present Illness Patient 75-year-old male with past medical history ESRD on HD, DM2, anemia, HTN, HLD, who presents as a direct admit from wound care clinic due to concerns for left heel osteomyelitis. At the time of my evaluation patient has no specific complaints, denies any pain. States he has been receiving wound care at [facility], but today is his first visit to outpatient wound care. He denies any fever, nausea, vomiting, or drainage noted from bilateral heels. He receives hemodialysis Sunday/Sunday/Sunday. Will admit patient for further medical management 05/06/2021: Afebrile. Seen by vascular surgery and recommended attempting wound VAC therapy, IV antibiotics. Also recommend evaluation for hyperbaric oxygen treatments. Strict offloading of his heels. Continue HD, per nephrology. 05/07: Afebrile. Tolerating wound vac well. Would like to get up out of bed onto his wheelchair. Has a slight non-productive cough. No CP or SOB. Afebrile. Wound VAC with good seal. Clearing his throat less today. No chest pain or shortness of breath. His normal HD is 9 AM Sunday he is asking for antibiotic infusions with dialysis after discharge. 05/09 Patient evaluated at bedside. No complaints doing well today. Inquiring about discharge. Infectious disease recommending 6 weeks of Vanco cefepime outpatient that can be dosed with dialysis. Disposition: Disposition/Orders: D/C to Another Facility Activity: Activity: Resume previous activity Diet: Diet: Renal Medications: Home Meds Active Scripts Insulin Lispro (Admelog) 100 Unit/1 Ml Vial, 0 UNITS SQ TIDWMEALS for PER SS INSULIN for 30 Days, #2 EACH Prov:SURY PATTERSON MD 01/20/21 Acetaminophen (ACETAMINOPHEN) 325 Mg Tablet, 650 MG PO PRN Q6HRS PRN for Headaches, Temp > 101.5F for 30 Days, #30 TAB Prov:SURY PATTERSON MD 01/20/21 Omeprazole Magnesium (OMEPRAZOLE MAGNESIUM) 20 Mg Capsule., 1 CAP PO DAILY for GERD for 30 Days, #30 CAP 0 Refills Prov:JAKE PATTON MD 01/11/21 Aspirin (ASPIRIN EC) 81 Mg Tablet., 81 MG PO DAILYWBKFT for CAD for 30 Days, #30 TAB.SR 3 Refills Prov:JAKE PATTON MD 01/11/21 Insulin Glargine,Hum.rec.anlog (LANTUS) 100 Unit/1 Ml Vial, 15 UNIT SQ QHS for DIABETES for 30 Days, #2 EACH Prov:SURY PATTERSON MD 11/10/20 Acetaminophen (ACETAMINOPHEN SUPP) 650 Mg Supp.rect, 650 MG MI PRN Q4HRS PRN for TEMP OVER 100.4F OR MILD PAIN for 30 Days, #20 SUPP.RECT Prov:SURY PATTERSON MD 11/10/20 Hydralazine Hcl (HYDRALAZINE HCL) 25 Mg Tablet, 25 MG PO TID for BLOOD PRESSURE for 30 Days, #90 TAB Prov:SURY PATTERSON MD 11/10/20 Reported Medications Entecavir (BARACLUDE) 0.5 Mg Tablet, 0.5 MG PO DAILY06 for hep B, TAB 01/19/21 Ascorbic Acid (Vitamin C) 500 Mg Capsule, 500 MG PO BID for supplement, CAP 12/20/20 Sennosides (SENOKOT) 8.6 Mg Tablet, 1 TAB PO BID PRN for CONSTIPATION for 20 Days, #40 TAB 0 Refills 12/20/20 Nystatin (NYSTATIN) 15 Gm Powder, 1 CLARKE TP BID for yeast for 7 Days, #1 BOTTLE 0 Refills apply to affected area(s) 12/20/20 Sertraline Hcl (ZOLOFT) 50 Mg Tablet, 50 MG PO DAILY for ANTI-DEPRESSANT, TAB 0 Refills 12/20/20 Metoprolol Succinate (METOPROLOL SUCCINATE ( XL )) 25 Mg Tab.er.24h, 25 MG PO DAILY for htn, #30 TAB 0 Refills 12/20/20 Ferrous Sulfate (SLOW RELEASE IRON) 160 Mg Tablet.er, 160 MG PO DAILY for supplement/anemia, TAB.SR 11/04/20 Buspirone Hcl (BUSPIRONE HCL) 10 Mg Tablet, 1 TAB PO PRN DAILY PRN for ANXIETY / AGITATION, #60 TAB 1 Refill 04/06/19 Atorvastatin Calcium (ATORVASTATIN CALCIUM) 40 Mg Tablet, 40 MG PO HS 11/29/13 Scheduled Ascorbic Acid (Vitamin C), 500 MG PO BID, (Reported) Aspirin (Aspirin Ec), 81 MG PO DAILYWBKFT Atorvastatin Calcium (Atorvastatin Calcium), 40 MG PO HS, (Reported) Entecavir (Baraclude), 0.5 MG PO DAILY06, (Reported) Ferrous Sulfate (Slow Release Iron), 160 MG PO DAILY, (Reported) Hydralazine Hcl (Hydralazine Hcl), 25 MG PO TID Insulin Glargine,Hum.rec.anlog (Lantus), 15 UNIT SQ QHS Insulin Lispro (Admelog), 0 UNITS SQ TIDWMEALS Metoprolol Succinate (Metoprolol Succinate ( Xl )), 25 MG PO DAILY, (Reported) Nystatin (Nystatin), 1 CLARKE TP BID, (Reported) Omeprazole Magnesium (Omeprazole Magnesium), 1 CAP PO DAILY Sertraline Hcl (Zoloft), 50 MG PO DAILY, (Reported) Scheduled PRN Acetaminophen (Acetaminophen Supp), 650 MG MI PRN Q4HRS PRN for TEMP OVER 100.4F OR MILD PAIN Acetaminophen (Acetaminophen), 650 MG PO PRN Q6HRS PRN for Headaches, Temp > 101.5F Buspirone Hcl (Buspirone Hcl), 1 TAB PO PRN DAILY PRN for ANXIETY / AGITATION, (Reported) Sennosides (Senokot), 1 TAB PO BID PRN for CONSTIPATION, (Reported) Justicifation of Admission Dx: Justifications for Admission: Justification of Admission Dx: Yes JAKE JUAREZ MD May 09, 2021 12:06
--- NOTE | 2021-05-09 12:09 | PDOC ---
Provider Note Date of Service: DATE: 05/09/21 TIME: 12:04 Provider Note Provider Note Vascular S: Pt in bed without complaints. He is s/p RUE access placement at [facility], left heel debridement by us in December. He had angio in December as well, see consult note for further details. O: VSS, afebrile RUE thrill felt, he has moderate size fluid collection that the patient reports has been ultrasounded by operating surgeon (not us) and was advised to monitor. Left foot wound vac removed, some redness to lower leg in general, not communicating with foot wound. Left heel wound with healthy granulation tissue throughout. A/P: Left Heel wound PAD ESRD on HD Left heel wound is healing nicely. No further vascular intervention regarding foot wound. We will sign off. F/U with [facility] F/U with operating surgeon at [facility] as scheduled regarding right upper extremity access surgical hematoma, which is stable. Justicifation of Admission Dx: Justifications for Admission: Justification of Admission Dx: Yes ROSALBA AARON May 09, 2021 12:09
--- NOTE | 2021-05-09 12:56 | NUR ---
SW following. Discussed with RN, pt from [facility]. IV abx to be given with dialysis. CONRADO faxed IV abx script to [facility] (ph: [phone], fax: [phone]). Discharge orders for return to [facility], however pt has not had dialysis yet, likely looking at tomorrow. CONRADO requested PCR COVID test this morning. CONRADO will continue to follow.
--- NOTE | 2021-05-09 14:28 | PDOC ---
DATE OF SERVICE DATE: 05/09/21 TIME: 14:25 SUBJECTIVE ROS No complaints, states feeling well. Denies SOB OBJECTIVE Vital Signs Vital Signs Date Time Temp Pulse Resp B/P (MAP) Pulse Ox O2 Delivery O2 Flow Rate FiO2 05/09/21 14:00 81 123/69 05/09/21 08:00 Room Air 05/09/21 07:00 97.9 24 93 97.9 I & 0 Intake and Output 05/09/21 07:00 Intake Total 1280 ml Output Total 225 ml Balance 1055 ml Intake Oral 1280 ml Output Urine Total 225 ml # Voids 1 # Bowel Movements 1 PHYSICAL EXAM Physical Exam GENERAL: no acute distress. HEENT: Normocephalic, atraumatic. Oral mucosa is moist. NECK: Supple LUNGS: Clear bilaterally. Non labored HEART: S1, S2. No murmurs. ABDOMEN: Soft, nontender, nondistended, obese. Bowel sounds present. EXTREMITIES: (Per ID) Large ulcer at the left heel with mild surrounding erythema. Rt Arm AVF - not in use currently, has Rt HDC DERM: Warm, dry no rash. NEURO: Alert and oriented x 3, grossly nonfocal. PSYCHIATRIC: Calm and cooperative. DIAGNOSIS/ASSESSMENT Assessment & Plan ESRD on HD MWF at [facility] ,Dialysis today, discussed treatment plan with Dawna ACcess recent tunneled hemodialysis catheter placement on 04/15/2021. Has AVF in Rt ARm- not mature . 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 Healing nicely , No further vascular intervention regarding foot wound. per vascular . Per ID start empiric Vanco and cefepime postdialysis on dialysis days Hep Bs Ag Positive ; Hep B Core Ab Reactive .He was prescribed Entecavir 0.5 mg py Hepatology at [facility] Hx of Acute blood loss anemia secondary to GIB. s/p cauterization of bleeding antral ulcer by GI team and [facility] in November 2020 Hx of Renal calculus - RK- Possible intrarenal stones. LK Possible intrarenal stones to include a 13 mm focus of increased echogenicity at the upper pole.No e/o obstruction reported . Pt denies any past history chronic diastolic CHF; Echo 07/25 with preserved LV systolic function CAD; s/p PCI/RHEA to LAD in 2018. clinically stable, CP free. COMMENT/RELEVANT DATA Meds Current Medications Medications (Trade) Dose Ordered Sig/Redd Start Time Stop Time Status Last Admin Dose Admin Acetaminophen (Tylenol) 650 mg PRN Q6HRS PRN 05/05/21 17:00 Acetaminophen/ Hydrocodone Bitart (Lortab 5/325) 1 tab PRN Q4HRS PRN 05/05/21 17:00 Al Hydroxide/Mg Hydroxide (Mylanta Plus Xs) 30 ml PRN Q3HRS PRN 05/05/21 17:00 Albumin Human 200 ml @ 200 mls/hr 1X PRN PRN 05/06/21 14:15 05/06/21 20:14 DC Aspirin (Ecotrin) 81 mg DAILYWBKFT 05/06/21 08:00 05/09/21 10:15 81 MG Atorvastatin Calcium (Lipitor) 40 mg HS 05/05/21 21:00 05/08/21 21:37 40 MG Buspirone HCl (Buspar) 10 mg PRN DAILY PRN 05/05/21 16:45 Calcium Carbonate/ Glycine (Tums) 500 mg PRN Q3HRS PRN 05/05/21 17:00 Cefepime HCl (Maxipime) 3 gm QFR@1600 05/13/21 16:00 Dextrose (Dextrose 50%-Water Syringe) 12.5 gm PRN Q15MIN PRN 05/05/21 17:00 Heparin Sodium (Porcine) (Heparin Sodium) 5,000 unit Q8HRS 05/05/21 22:00 05/09/21 05:56 5,000 UNIT Hydralazine HCl (Apresoline) 25 mg TID 05/05/21 21:00 05/08/21 21:38 25 MG Info (PHARMACY MONITORING -- do not chart) 1 each PRN DAILY PRN 05/09/21 08:30 Insulin Glargine (Lantus Syringe) 15 unit QHS 05/05/21 21:00 05/08/21 21:39 15 UNIT Insulin Human Lispro (HumaLOG VIAL for OP,RR ONLY) TIDWMEALS 05/05/21 17:00 Cancel Insulin Human Lispro (HumaLOG) 0-9 UNITS TIDWMEALS 05/05/21 17:00 Lactobacillus Rhamnosus (Culturelle) 1 cap BID 05/07/21 21:00 05/09/21 10:15 1 CAP Magnesium Hydroxide (Milk Of Magnesia) 2,400 mg PRN Q12HR PRN 05/05/21 17:00 Metoprolol Succinate (Toprol Xl) 25 mg DAILY 05/06/21 09:00 05/09/21 10:15 25 MG Non-Formulary Medication (Entecavir (Baraclude)) 0.5 mg DAILY06 05/06/21 06:00 05/07/21 16:18 DC Nystatin (Nystop) 1 luna BID 05/05/21 21:00 05/09/21 09:00 1 LUNA Ondansetron HCl (Zofran) 4 mg PRN Q6HRS PRN 05/05/21 17:00 Polysaccharide Iron Complex (Niferex 150) 150 mg DAILY 05/06/21 09:00 05/09/21 10:15 150 MG Sennosides (Senna) 8.6 mg PRN BID PRN 05/06/21 15:00 Sertraline HCl (Zoloft) 50 mg DAILY 05/06/21 09:00 05/09/21 10:15 50 MG Sodium Chloride 1,000 ml @ 400 mls/hr Q2H30M PRN 05/09/21 08:30 05/09/21 20:29 Sodium Chloride (Normal Saline Flush) 10 ml 1X PRN PRN 05/06/21 14:15 05/07/21 14:14 DC Vancomycin HCl (Vanco Per Pharmacy) 1 each PRN DAILY PRN 05/07/21 10:15 05/09/21 14:17 1 EACH Vancomycin HCl (Vancomycin Random Level) 1 each 1X ONCE 05/09/21 05:00 05/09/21 05:01 DC 05/09/21 05:00 1 EACH Vancomycin HCl 500 mg/Sodium Chloride 100 ml @ 100 mls/hr QMWF 05/09/21 16:00 Vancomycin HCl 2 gm/Sodium Chloride 500 ml @ 250 mls/hr 1X ONCE 05/07/21 12:00 05/07/21 13:59 DC 05/07/21 12:26 250 MLS/HR Lab Laboratory Tests Test 05/08/21 16:31 05/08/21 20:52 05/09/21 05:25 05/09/21 07:21 Glucose (Fingerstick) 143 mg/dL (70-99) 133 mg/dL (70-99) 78 mg/dL (70-99) White Blood Count 7.5 x10^3/uL (4.0-11.0) Red Blood Count 3.22 x10^6/uL (4.30-5.70) Hemoglobin 10.1 g/dL (13.0-17.5) Hematocrit 30.6 % (39.0-53.0) Mean Corpuscular Volume 95 fL (79-100) Mean Corpuscular Hemoglobin 31 pg (25-35) Mean Corpuscular Hemoglobin Concent 33 g/dL (31-37) Red Cell Distribution Width 19.2 % (11.5-14.5) Platelet Count 175 x10^3/uL (140-400) Neutrophils (%) (Auto) 63 % (31-73) Lymphocytes (%) (Auto) 19 % (24-48) Monocytes (%) (Auto) 12 % (0-9) Eosinophils (%) (Auto) 5 % (0-3) Basophils (%) (Auto) 1 % (0-3) Neutrophils # (Auto) 4.7 x10^3/uL (1.8-7.7) Lymphocytes # (Auto) 1.4 x10^3/uL (1.0-4.8) Monocytes # (Auto) 0.9 x10^3/uL (0.0-1.1) Eosinophils # (Auto) 0.4 x10^3/uL (0.0-0.7) Basophils # (Auto) 0.1 x10^3/uL (0.0-0.2) Sodium Level 140 mmol/L (136-145) Potassium Level 5.1 mmol/L (3.5-5.1) Chloride Level 103 mmol/L (98-107) Carbon Dioxide Level 27 mmol/L (21-32) Anion Gap 10 (6-14) Blood Urea Nitrogen 49 mg/dL (8-26) Creatinine 4.5 mg/dL (0.7-1.3) Estimated GFR (Cockcroft-Gault) 12.9 Glucose Level 89 mg/dL (70-99) Calcium Level 8.7 mg/dL (8.5-10.1) Random Vancomycin Level 21.3 mcg/mL Test 05/09/21 10:40 10/4/21 11:39 Glucose (Fingerstick) 68 mg/dL (70-99) 87 mg/dL (70-99) Results All relevant outside records, renal labs, imaging studies, telemetry/EKG's were reviewed. Justicifation of Admission Dx: Justifications for Admission: Justification of Admission Dx: Yes BEATRIZ IBARRA MD May 09, 2021 14:28
[2021-05-09] MEDS ORDERED: VANCOMYCIN 500 MG in IV NORMAL SALINE 100ML 100 ML IV SCH (16:00)
--- NOTE | 2021-05-09 16:21 | NUR ---
Wound Care Pt is dialysis at time of WC team arrival, will see tomorrow.
[2021-05-09] MEDS: CEFEPIME HCL IV Push 2 GM VIAL. IVP SCH (18:04)
[2021-05-09 19:00] VITALS: BP 124/44
--- NOTE | 2021-05-09 19:25 | NUR ---
Rapid and pcr covid swabs obtained and sent to lab for placement to [facility].
[2021-05-09] MEDS: INSULIN GLARGINE SYRINGE. SQ SCH (20:30)
[2021-05-09] MEDS: ATORVASTATIN CALCIUM 40 MG TABLET. PO SCH (20:31)
[2021-05-09 22:49] VITALS: BP 121/43
[2021-05-10 02:46] VITALS: BP 118/48
[2021-05-10] MEDS: HEPARIN for SUB-Q USE 5,000 UNIT/ML VIAL. SQ SCH (06:07)
[2021-05-10 07:00] VITALS: BP 139/55
[2021-05-10 07:08] LABS: BASO # 0.1 x10^3/uL (0.0-0.2); BASO % 2 % (0-3); EOS # 0.5 x10^3/uL (0.0-0.7); EOS % 8 % (0-3); HEMATOCRIT 29.2 % (39.0-53.0); HEMOGLOBIN 9.5 g/dL (13.0-17.5); LYMPH # 1.5 x10^3/uL (1.0-4.8); LYMPH % 21 % (24-48); MEAN CORPUSCULAR HEMOGLOBIN 31 pg (25-35); MEAN CORPUSCULAR HGB CONC 32 g/dL (31-37); MEAN CORPUSCULAR VOLUME 95 fL (79-100); MONO # 0.9 x10^3/uL (0.0-1.1); MONO % 13 % (0-9); NEUT % 57 % (31-73); PLATELET COUNT 162 x10^3/uL (140-400); RED BLOOD COUNT 3.07 x10^6/uL (4.30-5.70)
[2021-05-10 07:34] LABS: CALCIUM 7.8 mg/dL (8.5-10.1); CREATININE 3.4 mg/dL (0.7-1.3); GFR 17.8; POTASSIUM 4.1 mmol/L (3.5-5.1)
[2021-05-10] MEDS: INSULIN LISPRO 300 UNITS/3 ML VIAL. SQ SCH (07:42)
[2021-05-10] MEDS: LACTOBACILLUS RHAMNOSUS GG 1 CAPSULE. PO SCH (08:17)
[2021-05-10] MEDS: IRON POLYSACCHARIDE COMPLEX 150 MG CAPSULE PO SCH (08:17)
[2021-05-10] MEDS: ASPIRIN ENTERIC COATED 81 MG TABLET.DR. PO SCH (08:17)
[2021-05-10] MEDS: METOPROLOL SUCC 24HR ER 25 MG TAB.ER.24H. PO SCH (08:18)
[2021-05-10] MEDS: NYSTATIN TOPICAL POWDER 15GM BOTTLE. TP SCH (08:18)
[2021-05-10] MEDS: SERTRALINE 50 MG TABLET. PO SCH (08:18)
[2021-05-10] MEDS: hydrALAZINE 25 MG TABLET PO SCH (08:18)
--- NOTE | 2021-05-10 08:34 | PDOC ---
Infectious Disease Note Subjective: Subjective Patient without complaints Eager for discharge later today Vital Signs: Vital Signs Vital Signs Date Time Temp Pulse Resp B/P (MAP) Pulse Ox O2 Delivery O2 Flow Rate FiO2 05/10/21 08:18 76 139/55 05/10/21 07:00 97.4 18 96 97.4 05/10/21 02:46 Room Air Physical Exam: PHYSICAL EXAM GENERAL: Alert, oriented x 3, cooperative male lying in bed comfortably, in no acute distress. VITAL SIGNS: Reviewed. HEENT: Normocephalic, atraumatic. Pupils are equal, reactive. Extraocular movements are intact. No thrush. Oral mucosa is moist. NECK: Supple, no JVD. LUNGS: Clear bilaterally. No wheezing. HEART: S1, S2. No murmurs. CHEST WALL: Right HD catheter site irritation and redness around the HD catheter. ABDOMEN: Soft, nontender, nondistended, obese. Bowel sounds present. EXTREMITIES: Large ulcer at the left heel with mild surrounding erythema. No bone palpated, though there is a thin sliver of tissue just close to the bone, chronic trophic changes to bilateral lower extremities. DERMATOLOGIC: Warm, dry, no generalized rash. NEUROLOGIC: Alert and oriented x 3, grossly nonfocal. PSYCHIATRIC: Calm and cooperative. Right HDC looks slightly irritated, but no purulence, no tenderness. Medications: Inpatient Meds: Medications reviewed. Labs: Lab Laboratory Tests Test 05/09/21 10:40 05/09/21 11:39 05/09/21 18:03 05/09/21 19:07 Glucose (Fingerstick) 68 mg/dL (70-99) 87 mg/dL (70-99) 110 mg/dL (70-99) 124 mg/dL (70-99) Test 05/10/21 01:00 05/10/21 06:40 05/10/21 07:35 Glucose (Fingerstick) 107 mg/dL (70-99) 65 mg/dL (70-99) White Blood Count 7.0 x10^3/uL (4.0-11.0) Red Blood Count 3.07 x10^6/uL (4.30-5.70) Hemoglobin 9.5 g/dL (13.0-17.5) Hematocrit 29.2 % (39.0-53.0) Mean Corpuscular Volume 95 fL (79-100) Mean Corpuscular Hemoglobin 31 pg (25-35) Mean Corpuscular Hemoglobin Concent 32 g/dL (31-37) Red Cell Distribution Width 19.0 % (11.5-14.5) Platelet Count 162 x10^3/uL (140-400) Neutrophils (%) (Auto) 57 % (31-73) Lymphocytes (%) (Auto) 21 % (24-48) Monocytes (%) (Auto) 13 % (0-9) Eosinophils (%) (Auto) 8 % (0-3) Basophils (%) (Auto) 2 % (0-3) Neutrophils # (Auto) 4.0 x10^3/uL (1.8-7.7) Lymphocytes # (Auto) 1.5 x10^3/uL (1.0-4.8) Monocytes # (Auto) 0.9 x10^3/uL (0.0-1.1) Eosinophils # (Auto) 0.5 x10^3/uL (0.0-0.7) Basophils # (Auto) 0.1 x10^3/uL (0.0-0.2) Sodium Level 137 mmol/L (136-145) Potassium Level 4.1 mmol/L (3.5-5.1) Chloride Level 102 mmol/L (98-107) Carbon Dioxide Level 29 mmol/L (21-32) Anion Gap 6 (6-14) Blood Urea Nitrogen 31 mg/dL (8-26) Creatinine 3.4 mg/dL (0.7-1.3) Estimated GFR (Cockcroft-Gault) 17.8 Glucose Level 58 mg/dL (70-99) Calcium Level 7.8 mg/dL (8.5-10.1) Objective: Assessment: 1. Left heel calcaneal osteomyelitis. 2. Chronic nonhealing left heel ulcer. 3. History of chronic right heel ulcer, healing. 4. End-stage renal disease, on hemodialysis, recent tunneled catheter changed. 5. Diabetes mellitus. 6. Peripheral arterial disease. 7. Obesity. 8. Congestive heart failure. 9. SULFA ALLERGY. 10. Hepatitis B surface antigen positive, on entecavir. 11. Chronic anemia. 12. Morbid obesity. Plan: Plan of Care Will start empiric Vanco and cefepime postdialysis on dialysis days, Will need total 6 weeks of treatment Vascular input noted for wound VAC and IV antibiotic trial If wound worsens he will need surgical intervention, patient verbalizes understanding Do not place PICC line. Monitor labs and cultures. Continue supportive care. Offload. Wound care as per wound team. Patient to follow-up in ID clinic MAY 31 AT 2;00 PM [phone] AMADOR ROSA MD May 10, 2021 08:34
--- NOTE | 2021-05-10 10:36 | SNU/HH DC ---
DISCHARGE ORDERS DISCHARGE INFORMATION: DISCHARGE DATE: May 10, 2021 FINAL DIAGNOSIS Diabetic foot ulcer CONDITION ON DISCHARGE: Stable CODE STATUS: Code Status: DNR/DNI CUSTODIAL: SNF STAY <30 DAYS: No POST DISCHARGE ORDERS: ACTIVITY ORDERS: Activity as tolerated WEIGHT BEARING STATUS: As tolerated DIET AFTER DISCHARGE: ADA WOUND/INCISION CARE: Change dressing, Reinforce dressing PRN CHECKS AFTER DISCHARGE: CHECKS AFTER DISCHARGE: Check blood press - daily, Check blood sugar, ac/hs FOLLOW-UP: LAB ORDERS FOR FOLLOW-UP: RENAL PANEL IN 3 DAYS TREATMENT/EQUIPMENT ORDERS: ADAPTIVE EQUIPMENT NEEDED: Wheelchair RESPIRATORY EQUIPMENT NEEDED: Oxygen Physical Therapy For: Evalulation/Treatment Occupational Therapy For: Evaluation/Treatment Speech Language Pathology For: Evaluation/Treatment DISCHARGE MEDICATIONS: Home Meds Active Scripts Insulin Lispro (Admelog) 100 Unit/1 Ml Vial, 0 UNITS SQ TIDWMEALS for PER SS INSULIN for 30 Days, #2 EACH Prov:SURY PATTERSON MD 01/20/21 Acetaminophen (ACETAMINOPHEN) 325 Mg Tablet, 650 MG PO PRN Q6HRS PRN for Headaches, Temp > 101.5F for 30 Days, #30 TAB Prov:SURY PATTERSON MD 01/20/21 Omeprazole Magnesium (OMEPRAZOLE MAGNESIUM) 20 Mg Capsule., 1 CAP PO DAILY for GERD for 30 Days, #30 CAP 0 Refills Prov:JAKE PATTON MD 01/11/21 Aspirin (ASPIRIN EC) 81 Mg Tablet., 81 MG PO DAILYWBKFT for CAD for 30 Days, #30 TAB.SR 3 Refills Prov:JAEK PATTON MD 01/11/21 Insulin Glargine,Hum.rec.anlog (LANTUS) 100 Unit/1 Ml Vial, 15 UNIT SQ QHS for DIABETES for 30 Days, #2 EACH Prov:SURY PATTERSON MD 11/10/20 Acetaminophen (ACETAMINOPHEN SUPP) 650 Mg Supp.rect, 650 MG IL PRN Q4HRS PRN for TEMP OVER 100.4F OR MILD PAIN for 30 Days, #20 SUPP.RECT Prov:SURY PATTERSON MD 11/10/20 Hydralazine Hcl (HYDRALAZINE HCL) 25 Mg Tablet, 25 MG PO TID for BLOOD PRESSURE for 30 Days, #90 TAB Prov:SURY PATTERSON MD 11/10/20 Reported Medications Entecavir (BARACLUDE) 0.5 Mg Tablet, 0.5 MG PO DAILY06 for hep B, TAB 01/19/21 Ascorbic Acid (Vitamin C) 500 Mg Capsule, 500 MG PO BID for supplement, CAP 12/20/20 Sennosides (SENOKOT) 8.6 Mg Tablet, 1 TAB PO BID PRN for CONSTIPATION for 20 Days, #40 TAB 0 Refills 12/20/20 Nystatin (NYSTATIN) 15 Gm Powder, 1 CLARKE TP BID for yeast for 7 Days, #1 BOTTLE 0 Refills apply to affected area(s) 12/20/20 Sertraline Hcl (ZOLOFT) 50 Mg Tablet, 50 MG PO DAILY for ANTI-DEPRESSANT, TAB 0 Refills 12/20/20 Metoprolol Succinate (METOPROLOL SUCCINATE ( XL )) 25 Mg Tab.er.24h, 25 MG PO DAILY for htn, #30 TAB 0 Refills 12/20/20 Ferrous Sulfate (SLOW RELEASE IRON) 160 Mg Tablet.er, 160 MG PO DAILY for supplement/anemia, TAB.SR 11/04/20 Buspirone Hcl (BUSPIRONE HCL) 10 Mg Tablet, 1 TAB PO PRN DAILY PRN for ANXIETY / AGITATION, #60 TAB 1 Refill 04/06/19 Atorvastatin Calcium (ATORVASTATIN CALCIUM) 40 Mg Tablet, 40 MG PO HS 11/29/13 JAKE JUAREZ MD May 10, 2021 10:36
--- NOTE | 2021-05-10 10:37 | PDOC ---
[employer] PROGRESS NOTE Date of Service DOS: DATE: 05/10/21 TIME: 10:37 Chief Complaint Chief Complaint Ulcers to bilateral heels, left > right, concerning for possible osteomyelitis to left heel Diastolic congestive heart failure ESRD on HD DM2 Left heel calcaneal osteomyelitis. Chronic nonhealing left heel ulcer. Peripheral arterial disease. Chronic diastolic Congestive heart failure. Hepatitis B surface antigen positive - on entecavir. Chronic anemia related to chronic renal insufficiency Morbid obesity - counseled on lifestyle modification Plan: We will admit patient with ID consult Patient is not septic appearing at this time; will obtain blood cultures and defer antibiotic recommendations to ID MRI on 03/16/2021 that showed T1 marrow replacement of the posterior calcaneus, subjacent to the soft tissue ulceration, consistent with osteomyelitis. Consultation placed to nephrology Basal/prandial insulin Resume home medications FEN - Renal diet PPX - Heparin DNR Dispo - inpatient for above Patient names his sister (Phuong Mathis) as surrogate decision-maker 33 minutes spent on chart review, patient communication, counseling, coordination with specialists History of Present Illness History of Present Illness Patient 75-year-old male with past medical history ESRD on HD, DM2, anemia, HTN, HLD, who presents as a direct admit from wound care clinic due to concerns for left heel osteomyelitis. At the time of my evaluation patient has no specific complaints, denies any pain. States he has been receiving wound care at [facility], but today is his first visit to outpatient wound care. He denies any fever, nausea, vomiting, or drainage noted from bilateral heels. He receives hemodialysis Sunday/Sunday/Sunday. Will admit patient for further medical management 05/06/2021: Afebrile. Seen by vascular surgery and recommended attempting wound VAC therapy, IV antibiotics. Also recommend evaluation for hyperbaric oxygen treatments. Strict offloading of his heels. Continue HD, per nephrology. 05/07: Afebrile. Tolerating wound vac well. Would like to get up out of bed onto his wheelchair. Has a slight non-productive cough. No CP or SOB. Afebrile. Wound VAC with good seal. Clearing his throat less today. No chest pain or shortness of breath. His normal HD is 9 AM Sunday he is asking for antibiotic infusions with dialysis after discharge. 10/5 Unable to discharge yesterday. Will be discharged today early. Patient agreeable. Vitals/I&O Vitals/I&O: Vital Signs Date Time Temp Pulse Resp B/P (MAP) Pulse Ox O2 Delivery O2 Flow Rate FiO2 05/10/21 08:18 76 139/55 05/10/21 07:00 97.4 18 96 97.4 05/10/21 02:46 Room Air I & O 05/09/21 05/09/21 05/10/21 15:00 23:00 07:00 Intake Total 100 ml 200 ml Balance 100 ml 200 ml Physical Exam Physical Exam: GENERAL: Alert, oriented x 3, cooperative male lying in bed comfortably, in no acute distress. VITAL SIGNS: Reviewed. HEENT: Normocephalic, atraumatic. Pupils are equal, reactive. Extraocular movements are intact. No thrush. Oral mucosa is moist. NECK: Supple, no JVD. LUNGS: Clear bilaterally. No wheezing. HEART: S1, S2. No murmurs. CHEST WALL: Right HD catheter site irritation and redness around the HD catheter. ABDOMEN: Soft, nontender, nondistended, obese. Bowel sounds present. EXTREMITIES: Large ulcer at the left heel with mild surrounding erythema. No bone palpated, though there is a thin sliver of tissue just close to the bone, chronic trophic changes to bilateral lower extremities. DERMATOLOGIC: Warm, dry, no generalized rash. NEUROLOGIC: Alert and oriented x 3, grossly nonfocal. PSYCHIATRIC: Calm and cooperative. Right HDC looks slightly irritated, but no purulence, no tenderness. General: Alert, Cooperative, No acute distress Heart: Regular rate Lungs: Clear, Other Extremities: Other (Bilateral lower extremities with dressings clean, dry, intact) Skin: Other (Dry skin with chronic trophic changes) Labs Labs: Laboratory Tests Test 05/09/21 10:40 05/09/21 11:39 05/09/21 18:03 05/09/21 19:07 Glucose (Fingerstick) 68 mg/dL (70-99) 87 mg/dL (70-99) 110 mg/dL (70-99) 124 mg/dL (70-99) Test 05/09/21 19:25 05/10/21 01:00 05/10/21 06:40 05/10/21 07:35 SARS-CoV-2 RNA (ROD) Negative (Negative) Glucose (Fingerstick) 107 mg/dL (70-99) 65 mg/dL (70-99) White Blood Count 7.0 x10^3/uL (4.0-11.0) Red Blood Count 3.07 x10^6/uL (4.30-5.70) Hemoglobin 9.5 g/dL (13.0-17.5) Hematocrit 29.2 % (39.0-53.0) Mean Corpuscular Volume 95 fL (79-100) Mean Corpuscular Hemoglobin 31 pg (25-35) Mean Corpuscular Hemoglobin Concent 32 g/dL (31-37) Red Cell Distribution Width 19.0 % (11.5-14.5) Platelet Count 162 x10^3/uL (140-400) Neutrophils (%) (Auto) 57 % (31-73) Lymphocytes (%) (Auto) 21 % (24-48) Monocytes (%) (Auto) 13 % (0-9) Eosinophils (%) (Auto) 8 % (0-3) Basophils (%) (Auto) 2 % (0-3) Neutrophils # (Auto) 4.0 x10^3/uL (1.8-7.7) Lymphocytes # (Auto) 1.5 x10^3/uL (1.0-4.8) Monocytes # (Auto) 0.9 x10^3/uL (0.0-1.1) Eosinophils # (Auto) 0.5 x10^3/uL (0.0-0.7) Basophils # (Auto) 0.1 x10^3/uL (0.0-0.2) Sodium Level 137 mmol/L (136-145) Potassium Level 4.1 mmol/L (3.5-5.1) Chloride Level 102 mmol/L (98-107) Carbon Dioxide Level 29 mmol/L (21-32) Anion Gap 6 (6-14) Blood Urea Nitrogen 31 mg/dL (8-26) Creatinine 3.4 mg/dL (0.7-1.3) Estimated GFR (Cockcroft-Gault) 17.8 Glucose Level 58 mg/dL (70-99) Calcium Level 7.8 mg/dL (8.5-10.1) Comment Review of Relevant I have reviewed the following items mara (where applicable) has been applied. Medications: Current Medications Medications (Trade) Dose Ordered Sig/Redd Route PRN Reason Start Time Stop Time Status Last Admin Dose Admin Vancomycin HCl 500 mg/Sodium Chloride 100 ml @ 100 mls/hr QMWF IV 05/09/21 16:00 05/09/21 18:04 Justifications for Admission General Conditions Other justification for admit: Possible osteomyelitis, diabetic foot ulcer, ESRD on HD Other Justification CHF exacerbation JAKE JUAREZ MD May 10, 2021 10:37
[2021-05-10 11:00] VITALS: BP 128/30
--- NOTE | 2021-05-10 11:26 | NUR ---
SW following. Discussed with RN, discharge orders faxed to [facility]. Stretcher transportation arranged with [facility] for 12-1300 black pickler. RN notified.
--- NOTE | 2021-05-10 11:30 | NUR ---
Wound Care Wound Type/Assessment: Patient seen per wound care follow up for wound assessments and dressing changes prior to d/c back to [facility]. Left heel appears improved, smaller and depth overall has improved. R heel ulcer appears smaller and improved, yellow slough and red granulation tissue present. Treatment Recommendations/Plan: Spoke with ANGI Corcoran at [facility], orders received to hold vac at this time, as she will reevaluate wounds on Sunday. Bilateral heels dressed with Hydrofera blue ready and covered with Aquacel foams, change every 3-4 days. R 4th toe appears almost healed, but since pt has a hx of bleeding from this site, applied Aquacel AG and covered with a bandaid. Education provided: Patient educated regarding wound care, patient very familiar with wound care and our recommendations. Offloading surface/device: Bilateral heels floated using heel medix boots and wedge. Patient encouraged to turn for offloading. Recommended Referrals/Tests: N/A Discharge Recommendations for dressings: see treatment plan above, but will defer to ANGI Gómez. Transporters at bedside to transfer back to [facility].
--- NOTE | 2021-05-10 11:40 | PDOC ---
DATE OF SERVICE DATE: 05/10/21 TIME: 11:38 SUBJECTIVE ROS No complaints, states feeling well. Hoping to be discharged today OBJECTIVE Vital Signs Vital Signs Date Time Temp Pulse Resp B/P (MAP) Pulse Ox O2 Delivery O2 Flow Rate FiO2 05/10/21 11:00 98.7 65 18 128/30 (62) 95 98.7 05/10/21 08:00 Room Air I & 0 Intake and Output 05/10/21 07:00 Intake Total 300 ml Balance 300 ml Intake Oral 200 ml IV Total 100 ml PHYSICAL EXAM Physical Exam GENERAL: no acute distress. HEENT: Normocephalic, atraumatic. Oral mucosa is moist. NECK: Supple LUNGS: Clear bilaterally. Non labored HEART: S1, S2. No murmurs. ABDOMEN: Soft, nontender, nondistended, obese. Bowel sounds present. EXTREMITIES: (Per ID) Large ulcer at the left heel with mild surrounding erythema. Rt Arm AVF - not in use currently, has Rt HDC DERM: Warm, dry no rash. NEURO: Alert and oriented x 3, grossly nonfocal. PSYCHIATRIC: Calm and cooperative. DIAGNOSIS/ASSESSMENT Assessment & Plan ESRD on HD MWF at [facility] ,No indication for dialysis today . resume OP dialysis tomorrow if dced today ACcess recent tunneled hemodialysis catheter placement on 04/15/2021. Has AVF in Rt ARm- not mature . 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 Healing nicely , No further vascular intervention regarding foot wound. per vascular . Per ID start empiric Vanco and cefepime postdialysis on dialysis days . Patient to follow-up in ID clinic MAY 31 AT 2;00 PM Hep Bs Ag Positive ; Hep B Core Ab Reactive .He was prescribed Entecavir 0.5 mg py Hepatology at Hx of Acute blood loss anemia secondary to GIB. s/p cauterization of bleeding antral ulcer by GI team and PRBC in November 2020 Hx of Renal calculus - RK- Possible intrarenal stones. LK Possible intrarenal stones to include a 13 mm focus of increased echogenicity at the upper pole.No e/o obstruction reported . Pt denies any past history chronic diastolic CHF; Echo 07/25 with preserved LV systolic function CAD; s/p PCI/RHEA to LAD in 2018. clinically stable, CP free. Discharge per primary and ID COMMENT/RELEVANT DATA Meds Current Medications Medications (Trade) Dose Ordered Sig/Redd Start Time Stop Time Status Last Admin Dose Admin Acetaminophen (Tylenol) 650 mg PRN Q6HRS PRN 05/05/21 17:00 Acetaminophen/ Hydrocodone Bitart (Lortab 5/325) 1 tab PRN Q4HRS PRN 05/05/21 17:00 Al Hydroxide/Mg Hydroxide (Mylanta Plus Xs) 30 ml PRN Q3HRS PRN 05/05/21 17:00 Albumin Human 200 ml @ 200 mls/hr 1X PRN PRN 05/06/21 14:15 05/06/21 20:14 DC Aspirin (Ecotrin) 81 mg [id number] 05/06/21 08:00 05/10/21 08:17 81 MG Atorvastatin Calcium (Lipitor) 40 mg HS 05/05/21 21:00 05/09/21 20:31 40 MG Buspirone HCl (Buspar) 10 mg PRN DAILY PRN 05/05/21 16:45 Calcium Carbonate/ Glycine (Tums) 500 mg PRN Q3HRS PRN 05/05/21 17:00 Cefepime HCl (Maxipime) 3 gm QFR@1600 05/13/21 16:00 Dextrose (Dextrose 50%-Water Syringe) 12.5 gm PRN Q15MIN PRN 05/05/21 17:00 Heparin Sodium (Porcine) (Heparin Sodium) 5,000 unit Q8HRS 05/05/21 22:00 05/10/21 06:07 5,000 UNIT Hydralazine HCl (Apresoline) 25 mg TID 05/05/21 21:00 05/10/21 08:18 25 MG Info (PHARMACY MONITORING -- do not chart) 1 each PRN DAILY PRN 05/09/21 08:30 Insulin Glargine (Lantus Syringe) 15 unit QHS 05/05/21 21:00 05/09/21 20:30 15 UNIT Insulin Human Lispro (HumaLOG VIAL for OP,RR ONLY) TIDWMEALS 05/05/21 17:00 Cancel Insulin Human Lispro (HumaLOG) 0-9 UNITS TIDWMEALS 05/05/21 17:00 Lactobacillus Rhamnosus (Culturelle) 1 cap BID 05/07/21 21:00 05/10/21 08:17 1 CAP Magnesium Hydroxide (Milk Of Magnesia) 2,400 mg PRN Q12HR PRN 05/05/21 17:00 Metoprolol Succinate (Toprol Xl) 25 mg DAILY 05/06/21 09:00 05/10/21 08:18 25 MG Non-Formulary Medication (Entecavir (Baraclude)) 0.5 mg DAILY06 05/06/21 06:00 05/07/21 16:18 DC Nystatin (Nystop) 1 luna BID 05/05/21 21:00 05/10/21 08:18 1 LUNA Ondansetron HCl (Zofran) 4 mg PRN Q6HRS PRN 05/05/21 17:00 Polysaccharide Iron Complex (Niferex 150) 150 mg DAILY 05/06/21 09:00 05/10/21 08:17 150 MG Sennosides (Senna) 8.6 mg PRN BID PRN 05/06/21 15:00 Sertraline HCl (Zoloft) 50 mg DAILY 05/06/21 09:00 05/10/21 08:18 50 MG Sodium Chloride 1,000 ml @ 400 mls/hr Q2H30M PRN 05/09/21 08:30 05/09/21 20:29 DC Sodium Chloride (Normal Saline Flush) 10 ml 1X PRN PRN 05/06/21 14:15 05/07/21 14:14 DC Vancomycin HCl (Vanco Per Pharmacy) 1 each PRN DAILY PRN 05/07/21 10:15 05/09/21 14:17 1 EACH Vancomycin HCl (Vancomycin Random Level) 1 each 1X ONCE 05/09/21 05:00 05/09/21 05:01 DC 05/09/21 05:00 1 EACH Vancomycin HCl 500 mg/Sodium Chloride 100 ml @ 100 mls/hr QMWF 05/09/21 16:00 05/09/21 18:04 100 MLS/HR Vancomycin HCl 2 gm/Sodium Chloride 500 ml @ 250 mls/hr 1X ONCE 05/07/21 12:00 05/07/21 13:59 DC 05/07/21 12:26 250 MLS/HR Lab Laboratory Tests Test 05/09/21 11:39 05/09/21 18:03 05/09/21 19:07 05/09/21 19:25 Glucose (Fingerstick) 87 mg/dL (70-99) 110 mg/dL (70-99) 124 mg/dL (70-99) SARS-CoV-2 RNA (ROD) Negative (Negative) Test 05/10/21 01:00 05/10/21 06:40 05/10/21 07:35 Glucose (Fingerstick) 107 mg/dL (70-99) 65 mg/dL (70-99) White Blood Count 7.0 x10^3/uL (4.0-11.0) Red Blood Count 3.07 x10^6/uL (4.30-5.70) Hemoglobin 9.5 g/dL (13.0-17.5) Hematocrit 29.2 % (39.0-53.0) Mean Corpuscular Volume 95 fL (79-100) Mean Corpuscular Hemoglobin 31 pg (25-35) Mean Corpuscular Hemoglobin Concent 32 g/dL (31-37) Red Cell Distribution Width 19.0 % (11.5-14.5) Platelet Count 162 x10^3/uL (140-400) Neutrophils (%) (Auto) 57 % (31-73) Lymphocytes (%) (Auto) 21 % (24-48) Monocytes (%) (Auto) 13 % (0-9) Eosinophils (%) (Auto) 8 % (0-3) Basophils (%) (Auto) 2 % (0-3) Neutrophils # (Auto) 4.0 x10^3/uL (1.8-7.7) Lymphocytes # (Auto) 1.5 x10^3/uL (1.0-4.8) Monocytes # (Auto) 0.9 x10^3/uL (0.0-1.1) Eosinophils # (Auto) 0.5 x10^3/uL (0.0-0.7) Basophils # (Auto) 0.1 x10^3/uL (0.0-0.2) Sodium Level 137 mmol/L (136-145) Potassium Level 4.1 mmol/L (3.5-5.1) Chloride Level 102 mmol/L (98-107) Carbon Dioxide Level 29 mmol/L (21-32) Anion Gap 6 (6-14) Blood Urea Nitrogen 31 mg/dL (8-26) Creatinine 3.4 mg/dL (0.7-1.3) Estimated GFR (Cockcroft-Gault) 17.8 Glucose Level 58 mg/dL (70-99) Calcium Level 7.8 mg/dL (8.5-10.1) Results All relevant outside records, renal labs, imaging studies, telemetry/EKG's were reviewed. Justicifation of Admission Dx: Justifications for Admission: Justification of Admission Dx: Yes BEATRIZ IBARRA MD May 10, 2021 11:40
--- NOTE | 2021-05-10 11:54 | NUR ---
Discharge Note: SAMEER HOLDEN [address] [place] [address] Discharge instructions and discharge home medications reviewed with Makenzie at [facility] and a copy given. All questions have been answered and understanding verbalized. The following instructions and handouts were given: f/u with Dr. Lopez on 05/31 at 1400. Discontinued lines and drains: Peripheral IV intact. Patient discharged to [facility] with Self via [facility].
[2021-05-13] MEDS ORDERED: CEFEPIME HCL IV Push 2 GM VIAL. IVP SCH (16:00)
== END 2021-05-10 11:54 | DRG 638 ==
LOC: 5 SOUTH 10:50
PROVIDERS: ADMIT Family Medicine; ATTEND Family Medicine
PROC: 5A1D70Z Performance of Urinary Filtration, Intermittent, Less than 6 Hours Per Day (ICD-10-PCS; 2021-05-06)
PROC: 5A1D70Z Performance of Urinary Filtration, Intermittent, Less than 6 Hours Per Day (ICD-10-PCS; principal; 2021-05-09)
DX: E11.69 Type 2 diabetes mellitus with other specified complication (principal); L97.429 Non-pressure chronic ulcer of left heel and midfoot with unspecified severity; I50.32 Chronic diastolic (congestive) heart failure; M86.8X7 Other osteomyelitis, ankle and foot; B19.10 Unspecified viral hepatitis B without hepatic coma; I13.2 Hypertensive heart and chronic kidney disease with heart failure and with stage 5 chronic kidney disease, or end stage renal disease; E11.621 Type 2 diabetes mellitus with foot ulcer; N18.6 End stage renal disease; D63.1 Anemia in chronic kidney disease; E11.22 Type 2 diabetes mellitus with diabetic chronic kidney disease; E11.42 Type 2 diabetes mellitus with diabetic polyneuropathy; E11.51 Type 2 diabetes mellitus with diabetic peripheral angiopathy without gangrene; E66.01 Morbid (severe) obesity due to excess calories; E78.5 Hyperlipidemia, unspecified; I25.10 Atherosclerotic heart disease of native coronary artery without angina pectoris; I48.91 Unspecified atrial fibrillation; L97.509 Non-pressure chronic ulcer of other part of unspecified foot with unspecified severity; Z82.49 Family history of ischemic heart disease and other diseases of the circulatory system; Z88.2 Allergy status to sulfonamides; Z99.2 Dependence on renal dialysis; E21.3 Hyperparathyroidism, unspecified; F32.9 Major depressive disorder, single episode, unspecified; F41.9 Anxiety disorder, unspecified; K21.9 Gastro-esophageal reflux disease without esophagitis; M10.9 Gout, unspecified; Z66 Do not resuscitate; Z79.4 Long term (current) use of insulin; Z68.38 Body mass index [BMI] 38.0-38.9, adult; Z88.8 Allergy status to other drugs, medicaments and biological substances
CPT/HCPCS: 11042; 11045; 36415; 80048; 80053; 80202; 82962; 83605; 85025; 86140; 87040; 97597; J0692; J1644; J1815; J3370; J7040; U0003; U0005; G0378

== ENCOUNTER → 2021-06-02 | Outpatient (CLI) | payer MEDICARE ==
[2021-05-10 11:00] VITALS: BP 128/30
[2021-06-02 05:45] LABS: BASO # 0.1 x10^3/uL (0.0-0.2); BASO % 1 % (0-3); EOS # 0.5 x10^3/uL (0.0-0.7); EOS % 8 % (0-3); HEMATOCRIT 29.4 % (39.0-53.0); HEMOGLOBIN 9.5 g/dL (13.0-17.5); LYMPH # 1.4 x10^3/uL (1.0-4.8); LYMPH % 21 % (24-48); MEAN CORPUSCULAR HEMOGLOBIN 31 pg (25-35); MEAN CORPUSCULAR HGB CONC 32 g/dL (31-37); MEAN CORPUSCULAR VOLUME 97 fL (79-100); MONO % 16 % (0-9); NEUT # 3.4 x10^3/uL (1.8-7.7); NEUT % 54 % (31-73); PLATELET COUNT 150 x10^3/uL (140-400); RED BLOOD COUNT 3.04 x10^6/uL (4.30-5.70); WHITE BLOOD COUNT 6.3 x10^3/uL (4.0-11.0)
[2021-06-02 05:47] LABS: C-REACTIVE PROTEIN 48.2 mg/L (0-3.3); CREATININE 3.7 mg/dL (0.7-1.3); GFR 16.2
== END ==
LOC: SPEC 00:31
PROVIDERS: ATTEND Internal Medicine
DX: M86.172 Other acute osteomyelitis, left ankle and foot (principal)
CPT/HCPCS: 36415; 82565; 84520; 85025; 85651; 86140

== ENCOUNTER → 2021-06-23 | Outpatient (CLI) | payer MEDICARE ==
[2021-06-23 13:07] LABS: BASO # 0.1 x10^3/uL (0.0-0.2); BASO % 2 % (0-3); EOS # 0.5 x10^3/uL (0.0-0.7); EOS % 8 % (0-3); HEMATOCRIT 32.4 % (39.0-53.0); HEMOGLOBIN 10.4 g/dL (13.0-17.5); LYMPH # 1.3 x10^3/uL (1.0-4.8); LYMPH % 20 % (24-48); MEAN CORPUSCULAR HEMOGLOBIN 32 pg (25-35); MEAN CORPUSCULAR HGB CONC 32 g/dL (31-37); MEAN CORPUSCULAR VOLUME 99 fL (79-100); MONO # 0.8 x10^3/uL (0.0-1.1); MONO % 13 % (0-9); NEUT # 3.6 x10^3/uL (1.8-7.7); NEUT % 58 % (31-73); PLATELET COUNT 145 x10^3/uL (140-400); RED BLOOD COUNT 3.28 x10^6/uL (4.30-5.70); RED CELL DISTRIBUTION WIDTH 19.8 % (11.5-14.5); WHITE BLOOD COUNT 6.3 x10^3/uL (4.0-11.0)
[2021-06-23 13:12] LABS: CREATININE 3.5 mg/dL (0.7-1.3); GFR 17.3
== END ==
LOC: SPEC 12:56
PROVIDERS: ATTEND Internal Medicine
DX: M86.172 Other acute osteomyelitis, left ankle and foot (principal)
CPT/HCPCS: 36415; 82565; 84520; 85025; 85651

== ENCOUNTER → 2021-11-21 | Outpatient (CLI) | payer MEDICARE ==
[2021-11-21 07:53] LABS: BASO # 0.1 x10^3/uL (0.0-0.2); BASO % 1 % (0-3); EOS # 0.6 x10^3/uL (0.0-0.7); EOS % 8 % (0-3); HEMATOCRIT 33.8 % (39.0-53.0); HEMOGLOBIN 11.1 g/dL (13.0-17.5); LYMPH # 1.5 x10^3/uL (1.0-4.8); LYMPH % 21 % (24-48); MEAN CORPUSCULAR HEMOGLOBIN 33 pg (25-35); MEAN CORPUSCULAR HGB CONC 33 g/dL (31-37); MEAN CORPUSCULAR VOLUME 100 fL (79-100); MONO # 0.6 x10^3/uL (0.0-1.1); MONO % 8 % (0-9); NEUT # 4.3 x10^3/uL (1.8-7.7); NEUT % 61 % (31-73); PLATELET COUNT 183 x10^3/uL (140-400); RED BLOOD COUNT 3.37 x10^6/uL (4.30-5.70); RED CELL DISTRIBUTION WIDTH 17.5 % (11.5-14.5); WHITE BLOOD COUNT 7.1 x10^3/uL (4.0-11.0)
[2021-11-21 08:21] LABS: ALBUMIN 2.9 g/dL (3.4-5.0); ALBUMIN/GLOBULIN RATIO 0.6 (1.0-1.7); CALCIUM 8.8 mg/dL (8.5-10.1); CREATININE 5.4 mg/dL (0.7-1.3); GFR 10.4; POTASSIUM 3.9 mmol/L (3.5-5.1); TOTAL PROTEIN 7.6 g/dL (6.4-8.2)
[2021-11-21 22:13] LABS: AFPT MARKER 1.1 ng/mL (0.0-8.4)
== END ==
LOC: SPEC
PROVIDERS: ATTEND Internal Medicine
DX: B19.10 Unspecified viral hepatitis B without hepatic coma (principal)
CPT/HCPCS: 36415; 80053; 82105; 85025; 85610; 87517